=== PATIENT | male | born 1960 | race African-American/Black ===

== ENCOUNTER 2019-05-01 20:18 | Inpatient (IN) | payer OTHER ==
[2019-05-01] MEDS ORDERED: FAMOTIDINE 20 MG/50 ML IVPB 20 MG in PREMIX 50 IVPB ONE (20:37)
[2019-05-01] MEDS ORDERED: MAG HYDROX/AL HYDROX/SIMETH -MYLANTA- ORAL SUSPENSION PO ONE (20:37)
--- NOTE | 2019-05-01 20:48 | PDOC ---
History of Present Illness - General Stated Complaint: VOMITTING BLOOD Time Seen by Provider: 05/01/19 20:40 Past History - Past Medical History Allergies/Adverse Reactions: Allergies Allergy/AdvReac Type Severity Reaction Status Date / Time No Known Allergies Allergy Verified 05/01/19 20:56 Home Medications: Ambulatory Orders Atorvastatin Calcium 40 mg PO DAILY 05/02/19 Gabapentin 1 cap PO HS 05/02/19 Insulin (Novolog) [Novolog -] 05/02/19 Lisinopril 1 tab PO DAILY 05/02/19 Metoclopramide HCl [Reglan] 1 tab PO TID 05/02/19 Omeprazole 20 mg PO DAILY 05/02/19 Pantoprazole Sodium [Protonix] 40 mg PO DAILY 05/02/19 ED Treatment Course - LABORATORY CBC & Chemistry Diagram: 05/02/19 00:20 05/02/19 00:20 Medical Decision Making - Medical Decision Making 05/01/19 21:50 HPI: 58yo M hx DM, HTN, and anemia of unknown cause presents from home c/o hematemesis. 2 days ago pt had just finished eating pizza and had sudden onset periumbilical NR abdominal pain constant unknown type nothing makes better/ worse no meds tried followed immediately by dark red liquidy emesis unknown times >20 unknown amount. Hx similar sx last year admitted to [facility], unknown what was done or diagnosis. Pt states only medication is HTN medication lipisine? 5mg? but poorly compliant, did not take today. Unable to keep food or liquid down. Endorses 2 days of dark black stool, denies bright red blood or pain with defecation or hemorrhoids. Endorses chills and diaphoresis. Denies alcohol use, smoking, IVDU, illicit drugs, HIV, hepatitis, recent travel, sick contacts, recent illness, fever, fatigue, headache, dizziness, numbness/tingling , weakness, vision changes, shortness of breath, cough, chest pain, palpitations , leg swelling, diarrhea, constipation, dysuria, hematuria, urinary retention, urinary urgency, confusion. ROS: Constitutional: Positive for chills and diaphoresis. Negative for fever, fatigue. HENT: Negative for sore throat, rhinorrhea, congestion. Eyes: Negative for visual disturbance. Respiratory: Negative for shortness of breath, cough, and wheezing. Cardiovascular: Negative for chest pain, palpitations, and leg swelling. Gastrointestinal: Positive for abdominal pain, nausea, vomiting, black stool. Negative for constipation, diarrhea. Genitourinary: Negative for dysuria, flank pain, and hematuria. Musculoskeletal: Negative for myalgias, back pain, and neck pain. Skin: Negative for rash. Neurological: Negative for light-headedness, dizziness, vertigo, syncope, weakness, numbness and headaches. Psychiatric/Behavioral: Negative for behavioral problems and confusion. PE: Gen: Alert, NAD, uncomfortable-appearing, vomiting dark red/purple clear fluid with small black chunks (not coffee grounds or bright red blood) HEENT: PERRL, EOMI, MMM, NCAT. +conjunctival pallor. Sclera are non-icteric. CV: Tachycardic rate and regular rhythm. No murmurs, rubs, or gallops. PULM: No resp distress. CTAB, no wheezes, rales, or rhonchi. ABD: soft, ND, +periumbilical TTP, + rebound tenderness and guarding, no CVA tenderness. BACK: No TTP of c/t/l-spine. No step-offs or deformities. MSK: No bony deformities. 2+ pulses in all extremities. NEURO: AAOx3. PERRL. No gross CN deficits. Strength and sensation grossly intact throughout. EXTREMITIES: No cyanosis. No clubbing. No edema. No calf tenderness. PSYCH: Normal mood and thought pattern. SKIN: Warm and dry. Normal capillary refill. No rashes. No jaundice. MDM: 58yo M hx DM, HTN, and anemia of unknown cause presents from home with 2 days of constant periumbilical pain, dark black stool, and multiple episodes of emesis of purple/dark red liquid believed to be blood, similar sx last year at [facility] with unknown diagnosis. Tachycardic, hypertensive 240/140, afebrile , periumbilical TTP. Ddx: HTN urgency/emergency, UGIB (iwona lara tear, peptic ulcer, varices, gastritis, esophagitis, malignancy), pancreatitis, colitis, diverticulitis, cholelithiasis/cystitis, metabolic derangement, anemia, ACS/RI, thyroid storm, UTI, PNA, sepsis. BP equal on b/l extremities and lack of chest or back pain of low concern for dissection. Spoke with [facility]: stated pt presented with hematemesis in 03/2018. Discharge dx UGIB and BPH w/outflow obstruction. EGD showed no active bleeding, healed iwona lara tears, mild esophagitis. Cr elevated throughout stay so did cystoscopy. HTN 197/103, hydralazine given, started on norvasc. Discharged on levemir and metformin. Release of information papers signed and sent to [facility] for paperwork. -EKG -CXR -CBC,CMP,Coags,Lipase,Cardiac profile,Lact,TSH -IVF -Protonix,Mylanta,Reglan -Pending pain management, consider labetalol 10 for HTN -CT abdomen/pelvis w/o contrast -Consult GI Dr Manuel -Dispo: likely admit pending w/u EKG reviewed: sinus tachycardia, 103bpm, IRBBB, L anterior fascicualr block, QTc 466ms, no e/o acute ischemia, no priors for comparison Labs reviewed. Tachycardia and elevated WBC > sepsis set initiated -Sepsis set: rectal temp, VBG, BC x2, 2nd lact 05/01/19 22:55 -Pain and nausea improving, but BP remains elevated. Give labetalol 10mg Rectal exam performed: Brown soft stool. No darren blood, black or sticky blood, fissures, skin flaps, or hemorrhoids seen. No masses or hemorrhoids felt. No pain with digital insertion. Guiac test negative. Rectal temp: 95.9, repeat 96.1 CXR reviewed: no acute pathology, abnormal line seen of unknown cause - evaluate further with CT chest Labs reviewed. Of note, TSH 0.22, WBC 15.6, H/H 12.6/38.1, Na 146, BUN 23.2, Cr 2.0, Gluc 236, Lact 2.1, CK 1278, CKI 0.4%, CK-MB 5.7, trop 0.04 -free T3, free T4 -3hr CBC,CMP,cardiac profile to trend -CT chest CBC,CMP WBC 15.6 K/mm3 (4.0-10.0) H 05/01/19 21:10 RBC 4.20 M/mm3 (4.00-5.60) 05/01/19 21:10 Hgb 12.6 GM/dL (11.7-16.9) 05/01/19 21:10 Hct 38.1 % (35.4-49) 05/01/19 21:10 MCV 90.8 fl (80-96) 05/01/19 21:10 MCH 29.9 pg (25.7-33.7) 05/01/19 21:10 MCHC 32.9 g/dl (32.0-35.9) 05/01/19 21:10 RDW 13.9 % (11.9-15.9) 05/01/19 21:10 Plt Count 306 K/MM3 (134-434) 05/01/19 21:10 MPV 9.2 fl (7.5-11.1) 05/01/19 21:10 Absolute Neuts (auto) 13.3 K/mm3 (1.5-8.0) H 05/01/19 21:10 Neutrophils % 85.2 % (42.8-82.8) H 05/01/19 21:10 Lymphocytes % 9.9 % (8-40) 05/01/19 21:10 Monocytes % 4.7 % (3.8-10.2) 05/01/19 21:10 Eosinophils % 0.0 % (0-4.5) 05/01/19 21:10 Basophils % 0.2 % (0-2.0) 05/01/19 21:10 Nucleated RBC % 0 % (0-0) 05/01/19 21:10 Sodium 146 mmol/L (136-145) H 05/01/19 21:10 Potassium 3.7 mmol/L (3.5-5.1) 05/01/19 21:10 Chloride 110 mmol/L (98-107) H 05/01/19 21:10 Carbon Dioxide 30 mmol/L (21-32) 05/01/19 21:10 Anion Gap 7 MMOL/L (8-16) L 05/01/19 21:10 BUN 23.2 mg/dL (7-18) H 05/01/19 21:10 Creatinine 2.0 mg/dL (0.55-1.3) H 05/01/19 21:10 Est GFR (CKD-EPI)AfAm 41.99 05/01/19 21:10 Est GFR (CKD-EPI)NonAf 36.23 05/01/19 21:10 Random Glucose 236 mg/dL (74-106) H 05/01/19 21:10 Lactic Acid 2.1 mmol/L (0.4-2.0) H 05/01/19 21:10 Calcium 8.8 mg/dL (8.5-10.1) 05/01/19 21:10 Total Bilirubin 0.3 mg/dL (0.2-1) 05/01/19 21:10 AST 42 U/L (15-37) H 05/01/19 21:10 ALT 37 U/L (13-61) 05/01/19 21:10 Alkaline Phosphatase 105 U/L (45-117) 05/01/19 21:10 Creatine Kinase 1278 U/L (26-308) H 05/01/19 21:10 Creatine Kinase Index 0.4 % (0.0-5.0) 05/01/19 21:10 CK-MB (CK-2) 5.7 ng/mL (0.5-3.6) H 05/01/19 21:10 Troponin I 0.04 ng/ml (0.00-0.05) 05/01/19 21:10 Total Protein 6.3 g/dl (6.4-8.2) L 05/01/19 21:10 Albumin 2.8 g/dl (3.4-5.0) L 05/01/19 21:10 Lipase 71 U/L (73-393) L 05/01/19 21:10 TSH 0.22 uIU/ml (0.358-3.74) L 05/01/19 21:10 05/01/19 23:10 Free T4 1.13 05/02/19 01:32 CT chest/abdomen read: GB sludge vs cholelithiasis. Couple of hypoattenuating lesions in L thyroid gland measuring up to 1cm. Mild cardiomegaly with small pericardial effusion. Small sliding hiatal hernia. Enlarged prostate gland. Moderate bladder distention. There is a small to moderate sized focal and nonspecific area of subpleural reticulation at the periphery of the lower segment of right upper lobe and right middle lobe at the right minor fissure, likely reflecting the sequela of remote insults. In addition, there is minimal subsegmental atelectasis the right lower lobe. The tracheobronchial tree is grossly patent. There is no airspace consolidation, pleural effusion or pneumothorax. 2L IVF run. POCUS GB US - no e/o stones, negative mendoza's Pt vomited half hour ago, but pain improving. Will admit for intractable vomiting. 05/02/19 01:51 -L arm 222/124, R arm 217/120 -20mg IV Labetalol 05/02/19 02:23 CBC,CMP WBC 16.2 K/mm3 (4.0-10.0) H 05/02/19 00:20 RBC 3.94 M/mm3 (4.00-5.60) L 05/02/19 00:20 Hgb 11.7 GM/dL (11.7-16.9) 05/02/19 00:20 Hct 36.0 % (35.4-49) 05/02/19 00:20 MCV 91.3 fl (80-96) 05/02/19 00:20 MCH 29.8 pg (25.7-33.7) 05/02/19 00:20 MCHC 32.6 g/dl (32.0-35.9) 05/02/19 00:20 RDW 14.3 % (11.9-15.9) 05/02/19 00:20 Plt Count 274 K/MM3 (134-434) 05/02/19 00:20 MPV 9.3 fl (7.5-11.1) 05/02/19 00:20 Absolute Neuts (auto) 14.0 K/mm3 (1.5-8.0) H 05/02/19 00:20 Neutrophils % 86.4 % (42.8-82.8) H 05/02/19 00:20 Lymphocytes % 9.0 % (8-40) 05/02/19 00:20 Monocytes % 4.4 % (3.8-10.2) 05/02/19 00:20 Eosinophils % 0.0 % (0-4.5) 05/02/19 00:20 Basophils % 0.2 % (0-2.0) 05/02/19 00:20 Nucleated RBC % 0 % (0-0) 05/02/19 00:20 Sodium 148 mmol/L (136-145) H 05/02/19 00:20 Potassium 3.6 mmol/L (3.5-5.1) 05/02/19 00:20 Chloride 111 mmol/L (98-107) H 05/02/19 00:20 Carbon Dioxide 27 mmol/L (21-32) 05/02/19 00:20 Anion Gap 10 MMOL/L (8-16) 05/02/19 00:20 BUN 24.0 mg/dL (7-18) H 05/02/19 00:20 Creatinine 1.9 mg/dL (0.55-1.3) H 05/02/19 00:20 Est GFR (CKD-EPI)AfAm 44.68 05/02/19 00:20 Est GFR (CKD-EPI)NonAf 38.55 05/02/19 00:20 Random Glucose 238 mg/dL (74-106) H 05/02/19 00:20 Lactic Acid 2.1 mmol/L (0.4-2.0) H 05/01/19 21:10 Calcium 8.7 mg/dL (8.5-10.1) 05/02/19 00:20 Total Bilirubin 0.5 mg/dL (0.2-1) 05/02/19 00:20 AST 38 U/L (15-37) H 05/02/19 00:20 ALT 33 U/L (13-61) 05/02/19 00:20 Alkaline Phosphatase 99 U/L (45-117) 05/02/19 00:20 Creatine Kinase 1186 U/L (26-308) H 05/02/19 00:20 Creatine Kinase Index 0.4 % (0.0-5.0) 05/01/19 21:10 CK-MB (CK-2) 5.7 ng/mL (0.5-3.6) H 05/01/19 21:10 Troponin I 0.07 ng/ml (0.00-0.05) H 05/02/19 00:20 Total Protein 5.8 g/dl (6.4-8.2) L 05/02/19 00:20 Albumin 2.6 g/dl (3.4-5.0) L 05/02/19 00:20 Lipase 71 U/L (73-393) L 05/01/19 21:10 TSH 0.22 uIU/ml (0.358-3.74) L 05/01/19 21:10 Free T4 1.11 ng/dl (0.76-1.16) 05/02/19 00:20 2nd trop elevated 0.07. Pt signed out to admitting team. 05/02/19 04:07 Spoke with admitting team. BP remains elevated - requires drip and ICU admission. ICU called. 05/02/19 04:14 Spoke with ICU - will come see pt. ICU accepted pt. Nicardipine drip started. Discharge - Discharge Information Problems reviewed: Yes Clinical Impression/Diagnosis: Intractable vomiting, Periumbilical pain, Hypertensive emergency Condition: Stable - Admission Yes - Follow up/Referral - Patient Discharge Instructions - Post Discharge Activity
[2019-05-01] MEDS ORDERED: METOCLOPRAMIDE HCL INJECTION 10 MG/2 ML VIAL IVPUSH ONE (20:49)
[2019-05-01] MEDS ORDERED: PANTOPRAZOLE SODIUM 40 MG in SODIUM CHLORIDE 100 ML IVPB ONE (20:49)
[2019-05-01] MEDS ORDERED: SODIUM CHLORIDE 1,000 ML IV ONE (20:49)
[2019-05-01] MEDS ORDERED: MAG HYDROX/AL HYDROX/SIMETH 30 ML UNIT-DOSE CUP ONE (21:00)
[2019-05-01] MEDS ORDERED: LABETALOL HCL 5 MG/1 ML (100MG/20 ML VIAL) IVPUSH ONE (21:06)
[2019-05-01] MEDS ORDERED: METOCLOPRAMIDE HCL INJECTION 10 MG/2 ML VIAL ONE (21:28)
[2019-05-01] MEDS ORDERED: LABETALOL HCL 5 MG/1 ML (200MG/40ML VIAL) IVPB ONE (21:28)
[2019-05-01] MEDS ORDERED: PANTOPRAZOLE SODIUM 40 MG/100 ML BAG IVPB ONE (21:28)
[2019-05-01 21:38] LABS: BASO % 0.2 % (0-2.0); HEMATOCRIT 38.1 % (35.4-49); HEMOGLOBIN 12.6 GM/dL (11.7-16.9); LYMPH % 9.9 % (8-40); MCH 29.9 pg (25.7-33.7); MCHC 32.9 g/dl (32.0-35.9); MEAN CELL VOLUME 90.8 fl (80-96); MEAN PLT VOLUME 9.2 fl (7.5-11.1); MONO % 4.7 % (3.8-10.2); NEUT % 85.2 % (42.8-82.8); PLATELET COUNT 306 K/MM3 (134-434); RDW 13.9 % (11.9-15.9); WHITE BLOOD COUNT 15.6 K/mm3 (4.0-10.0)
[2019-05-01] MEDS ORDERED: SODIUM CHLORIDE 2,994 ML IV ONE (21:49)
[2019-05-01 21:55] LABS: INR 1.09 (0.83-1.09); PROTHROMBIN TIME (PATIENT) 12.9 SEC (9.7-13.0)
[2019-05-01 22:04] LABS: ALBUMIN 2.8 g/dl (3.4-5.0); BILIRUBIN,TOTAL 0.3 mg/dL (0.2-1); BLOOD UREA NITROGEN 23.2 mg/dL (7-18); CALCIUM 8.8 mg/dL (8.5-10.1); POTASSIUM 3.7 mmol/L (3.5-5.1); TOT PROT 6.3 g/dl (6.4-8.2)
--- NOTE | 2019-05-01 23:31 | PDOC ---
Documentation entered by Mora Mendieta SCRIBE, acting as scribe for Samir Vick MD. Samir Vick MD: This documentation has been prepared by the Anam rubin Nirvannie, SCRIBE, under my direction and personally reviewed by me in its entirety. I confirm that the documentation accurately reflects all work, treatment, procedures, and medical decision making performed by me. Attending Attestation - Resident Resident Name: Gayla Kee - ED Attending Attestation I have performed the following: I have examined & evaluated the patient, The case was reviewed & discussed with the resident, I agree w/resident's findings & plan, Exceptions are as noted - HPI HPI: 05/01/19 21:31 The patient is a 58 year old male, with a significant past medical history of gi bleed (03/2018, requiring carafate), dm, htn, chronic abdominal pain, ?h pylori, and anemia (unknown cause, recent colonoscopy and endoscopy scheduled for 05/07/19), who presents to the emergency department with 3 days of progressively worsening burning epigastric abdominal pain with associated hematemesis (dark, watery red) and melena. As per patient, his symptoms initially onset yesterday but, worsened yesterday with associated subjective fevers, chills, and diaphoresis. He notes his symptoms to be similar to his previous episode of a GI bleed (unknown if upper or lower). He denies any recent fevers, chills, headache or dizziness. He denies any recent chest pain or shortness of breath. He denies any recent dysuria, frequency, urgency or hematuria. Allergies: NKA GI: Dr. Mar Chatterjee - Physicial Exam PE: 05/01/19 20:40 GENERAL: The patient is awake, alert, and fully oriented, Nontoxic - in no acute distress. HEAD: Normocephalic, atraumatic. EYES: extraocular movements intact, sclera anicteric, conjunctiva clear. ENT: Normal voice, Moist mucous membranes. NECK: Normal range of motion, supple LUNGS: Breath sounds equal, clear to auscultation bilaterally. No wheezes, no rhonchi, no rales. HEART: Tachycardic, normal S1 and S2 without murmur, rub or gallop. ABDOMEN: Soft, mild epigastric tenderness, +voluntary guarding, no rebound. No CVA tenderness EXTREMITIES: Normal range of motion, no edema. NEUROLOGICAL: No facial assymetry, Normal speech, PSYCH: Normal mood, normal affect. SKIN: Warm, Dry, normal turgor, - Critical Care Time Total Critical Care Time: 45 Critical Care Statement: The care of this patient involved high complexity decision making to prevent further life threatening deterioration of the patient 's condition and/or to evaluate & treat vital organ system(s) failure or risk of failure. - Medical Decision Making 05/01/19 20:41 58-year-old gentleman history of diabetes, HTN, presenting with a complaint of persistent nausea and vomiting and epigastric pain. Patient endorses 2-day history of nonradiating, burning epigastric pain associated with multiple episodes of vomiting that appears, dark watery reddish in color, dark stool. denies associated cp, f/c, back pain, focal numbness/tingling/weakness, headache , vision changes, We will obtain blood work, will treat with Protonix, Maalox, Zofran Differential for the patient's symptoms includes possible pancreatitis, gastritis, gastric ulcer. The patient was notably tachycardic and hypertensive upon arrival, patient states his BP is normally pretty well controlled. Due to his hypertension consider possible dissection, ICH/hypertensive emergency 05/01/19 22:26 The patient's blood work is reviewed, creatinine is elevated 2.0 with slightly elevated BUN The patient also noted for leukocytosis does not have any signs of anemia at this time. The patient's stool guaiac and lipase are also negative. Will obtain a CT of the abdomen to evaluate his abdominal pain 05/02/19 01:[address] ches noted for smal/moderate koki of nonspecific subpleural reticulation at periphery of lowe segmen of right upper lobe and riht middle lobe, likely reflecting remote insults, no airspace dz, and significant findings on abd. no sign of tones/cbd diltation on US pt still vomiing here. will give zofran will admit for furhter mnagement of dehydration an dintractible vomiting and hypertension 05/02/19 01:52 Patient's blood pressure still elevated here will give another dose of labetalol Heart Score/ECG Review - ECG Impressions Comment:: 05/02/19 01:26 Twelve-lead EKG was performed and reviewed by me. There is normal sinus rhythm with a rate of 103 Incomplete right bundle branch block Left anterior fascicular block
[2019-05-02 00:46] LABS: BASO % 0.2 % (0-2.0); HEMOGLOBIN 11.7 GM/dL (11.7-16.9); MCH 29.8 pg (25.7-33.7); MCHC 32.6 g/dl (32.0-35.9); MEAN CELL VOLUME 91.3 fl (80-96); MEAN PLT VOLUME 9.3 fl (7.5-11.1); MONO % 4.4 % (3.8-10.2); NEUT % 86.4 % (42.8-82.8); PLATELET COUNT 274 K/MM3 (134-434); RBC 3.94 M/mm3 (4.00-5.60); RDW 14.3 % (11.9-15.9); WHITE BLOOD COUNT 16.2 K/mm3 (4.0-10.0)
[2019-05-02] MEDS ORDERED: SODIUM CHLORIDE 1,000 ML IV STA (00:49)
[2019-05-02] MEDS ORDERED: ONDANSETRON 4 MG/2 ML VIAL IVPB ONE (01:32)
[2019-05-02 01:37] LABS: ALBUMIN 2.6 g/dl (3.4-5.0); BILIRUBIN,TOTAL 0.5 mg/dL (0.2-1); CALCIUM 8.7 mg/dL (8.5-10.1); CREATININE 1.9 mg/dL (0.55-1.3); POTASSIUM 3.6 mmol/L (3.5-5.1); TOT PROT 5.8 g/dl (6.4-8.2)
[2019-05-02] MEDS ORDERED: LABETALOL HCL 5 MG/1 ML (100MG/20 ML VIAL) IVPUSH ONE ×2 (01:50→05:00)
--- NOTE | 2019-05-02 02:11 | HP ---
CHIEF COMPLAINT:intractable nausea and vomiting PCP: unknown HISTORY OF PRESENT ILLNESS: 58 yo M PMH DM, HTN, anemia, BPH ( s/p prostate procedure) presents to ED with nausea, vomiting and lower abdominal pain. pt states that this all began yesterday evening. pt states that he has been vomiting continuously, he describes the vomit as having " red chunks of phlegm" . pt states that this has happened once in the past last year at [facility]. (- on communication with [facility] he has had EGD revealing iwona lara and esophagitis) . pt also endorses dysuria x 1 month and blood in his urine for 2 days. pt states he hasnt had these symptoms since his prostate surgery 1 year ago. pt states he is not compliant with his BP medications and when he checks sugar at home its around 170s. ER course was notable for: (1)Labetalol 10 mg, followed by 2nd dose labetalol 20 mg (2)CT chest, abdomen pelvis w/o contrast (3)lactate 2.1 , trop 0.04-->0.07 Recent Travel: denies PAST MEDICAL HISTORY: DM, HTN, anemia, BPH ( s/p prostate procedure) PAST SURGICAL HISTORY: L toe amputation. prostate surgery Social History: Smoking:denies Alcohol:denies Drugs: denies Allergies No Known Allergies Allergy (Verified 05/01/19 20:56) HOME MEDICATIONS: Home Medications Medication Instructions Recorded Atorvastatin Calcium 40 mg PO DAILY 05/02/19 Gabapentin 1 cap PO HS 05/02/19 Insulin (Novolog) [Novolog -] 05/02/19 Lisinopril 1 tab PO DAILY 05/02/19 Metoclopramide HCl [Reglan] 1 tab PO TID 05/02/19 Omeprazole 20 mg PO DAILY 05/02/19 Pantoprazole Sodium [Protonix] 40 mg PO DAILY 05/02/19 REVIEW OF SYSTEMS CONSTITUTIONAL: Absent: fever, chills, diaphoresis, generalized weakness, malaise, loss of appetite, weight change HEENT: Absent: rhinorrhea, nasal congestion, throat pain, throat swelling, difficulty swallowing, mouth swelling, ear pain, eye pain, visual changes CARDIOVASCULAR: Absent: chest pain, syncope, palpitations, irregular heart rate, lightheadedness , peripheral edema RESPIRATORY: Absent: cough, shortness of breath, dyspnea with exertion, orthopnea, wheezing, stridor, hemoptysis GASTROINTESTINAL: Present: abdominal pain, nausea, vomiting, hematochezia Absent:abdominal distension, diarrhea, constipation, melena GENITOURINARY: Present: dysuria, bloody urine Absent: frequency, urgency, hesitancy, flank pain, genital pain MUSCULOSKELETAL: Absent: myalgia, arthralgia, joint swelling, back pain, neck pain SKIN: Absent: rash, itching, pallor HEMATOLOGIC/IMMUNOLOGIC: Absent: easy bleeding, easy bruising, lymphadenopathy, frequent infections NEUROLOGIC: Absent: headache, focal weakness or paresthesias, dizziness, unsteady gait, seizure, mental status changes, bladder or bowel incontinence PHYSICAL EXAMINATION Vital Signs - 24 hr 05/01/19 05/01/19 20:52 22:35 Temperature 98.4 F 96.1 F L Pulse Rate 110 H Pulse Rate [ 108 H Left Radial] Respiratory 20 18 Rate Blood Pressure 240/143 H Blood Pressure 197/104 H [Left Arm] O2 Sat by Pulse 98 98 Oximetry (%) GENERAL: Awake, alert, and fully oriented HEAD: Normal with no signs of trauma. EYES: Pupils equal, round and reactive to light, extraocular movements intact, sclera anicteric, conjunctiva clear. EARS, NOSE, THROAT: nares patent, oropharynx clear without exudates. Moist mucous membranes. NECK: Normal range of motion, supple without lymphadenopathy, JVD, or masses. LUNGS: Breath sounds equal, clear to auscultation bilaterally. No wheezes, and no crackles. No accessory muscle use. HEART: tachycardic and regular rhythm, normal S1 and S2 without murmur, rub or gallop. ABDOMEN: Soft, tender to palpation of LLQ and RLQ, not distended, normoactive bowel sounds, no guarding, no rebound, no masses. MUSCULOSKELETAL: Normal range of motion at all joints. No bony deformities or tenderness. No CVA tenderness. UPPER EXTREMITIES: 2+ pulses, warm, well-perfused. No cyanosis. No clubbing. No peripheral edema. LOWER EXTREMITIES: 2+ pulses, warm, well-perfused. No calf tenderness. No peripheral edema. NEUROLOGICAL: Cranial nerves II-XII intact. Normal speech. Normal gait. SKIN: Warm, dry, normal turgor, no rashes or lesions noted, normal capillary refill. Laboratory Last Values WBC 16.2 K/mm3 (4.0-10.0) H 05/02/19 00:20 RBC 3.94 M/mm3 (4.00-5.60) L 05/02/19 00:20 Hgb 11.7 GM/dL (11.7-16.9) 05/02/19 00:20 Hct 36.0 % (35.4-49) 05/02/19 00:20 MCV 91.3 fl (80-96) 05/02/19 00:20 MCH 29.8 pg (25.7-33.7) 05/02/19 00:20 MCHC 32.6 g/dl (32.0-35.9) 05/02/19 00:20 RDW 14.3 % (11.9-15.9) 05/02/19 00:20 Plt Count 274 K/MM3 (134-434) 05/02/19 00:20 MPV 9.3 fl (7.5-11.1) 05/02/19 00:20 Absolute Neuts (auto) 14.0 K/mm3 (1.5-8.0) H 05/02/19 00:20 Neutrophils % 86.4 % (42.8-82.8) H 05/02/19 00:20 Lymphocytes % 9.0 % (8-40) 05/02/19 00:20 Monocytes % 4.4 % (3.8-10.2) 05/02/19 00:20 Eosinophils % 0.0 % (0-4.5) 05/02/19 00:20 Basophils % 0.2 % (0-2.0) 05/02/19 00:20 Nucleated RBC % 0 % (0-0) 05/02/19 00:20 PT with INR 12.90 SEC (9.7-13.0) 05/01/19 21:10 INR 1.09 (0.83-1.09) 05/01/19 21:10 Sodium 148 mmol/L (136-145) H 05/02/19 00:20 Potassium 3.6 mmol/L (3.5-5.1) 05/02/19 00:20 Chloride 111 mmol/L (98-107) H 05/02/19 00:20 Carbon Dioxide 27 mmol/L (21-32) 05/02/19 00:20 Anion Gap 10 MMOL/L (8-16) 05/02/19 00:20 BUN 24.0 mg/dL (7-18) H 05/02/19 00:20 Creatinine 1.9 mg/dL (0.55-1.3) H 05/02/19 00:20 Est GFR (CKD-EPI)AfAm 44.68 05/02/19 00:20 Est GFR (CKD-EPI)NonAf 38.55 05/02/19 00:20 Random Glucose 238 mg/dL (74-106) H 05/02/19 00:20 Lactic Acid 2.1 mmol/L (0.4-2.0) H 05/01/19 21:10 Calcium 8.7 mg/dL (8.5-10.1) 05/02/19 00:20 Total Bilirubin 0.5 mg/dL (0.2-1) 05/02/19 00:20 AST 38 U/L (15-37) H 05/02/19 00:20 ALT 33 U/L (13-61) 05/02/19 00:20 Alkaline Phosphatase 99 U/L (45-117) 05/02/19 00:20 Creatine Kinase 1186 U/L (26-308) H 05/02/19 00:20 Creatine Kinase Index 0.4 % (0.0-5.0) 05/02/19 00:20 CK-MB (CK-2) 5.2 ng/mL (0.5-3.6) H 05/02/19 00:20 Troponin I 0.07 ng/ml (0.00-0.05) H 05/02/19 00:20 Total Protein 5.8 g/dl (6.4-8.2) L 05/02/19 00:20 Albumin 2.6 g/dl (3.4-5.0) L 05/02/19 00:20 Lipase 71 U/L (73-393) L 05/01/19 21:10 TSH 0.22 uIU/ml (0.358-3.74) L 05/01/19 21:10 Free T4 1.11 ng/dl (0.76-1.16) 05/02/19 00:20 Stool Occult Blood Negative (NEGATIVE) 05/01/19 22:02 Blood Type O POSITIVE 05/01/19 21:10 Antibody Screen Negative 05/01/19 21:10 CT chest / abdomen/ pelvis FINDINGS: Chest: LUNGS: There is a small to moderate sized focal and nonspecific area of subpleural reticulation at the periphery of the lower segment of right upper lobe and right middle lobe at the right minor fissure, likely reflecting the sequela of remote insults. In addition, there is minimal subsegmental atelectasis the right lower lobe. The tracheobronchial tree is grossly patent. There is no airspace consolidation, pleural effusion or pneumothorax. CARDIOVASCULAR: Mild cardiomegaly. There is small pericardial effusion. The thoracic aorta and arch vessels are normal in caliber.. Mediastinum and Ct: There is no clinically significant axillary, mediastinal or hilar lymphadenopathy. Chest Wall and Lower Neck: Incidental note is made of a couple of hypoattenuating lesions in the left thyroid gland measuring up to 1.0 cm. Abdomen: Liver:: Within normal limits. Bile Ducts: Within normal limits. Gallbladder:: Gallbladder sludge versus cholelithiasis. Pancreas:: Within normal limits. Spleen:: Within normal limits. Adrenals: Within normal limits. Kidneys: No evidence of hydronephrosis or nephrolithiasis. Stomach:: Small sliding hiatal hernia. Bowel:: No evidence of small bowel obstruction or mass. Normal appendix is identified. Pelvis: Reproductive Organs: Enlarged prostate gland. Bladder: Moderate distention of the bladder.Vessels: Aorta: Atherosclerotic calcification of the aorta without aneurysm or dissection. Retroperitoneum: Within normal limits. Bones: : No suspicious osseous lesions. ASSESSMENT/PLAN: 58 yo M PMH DM, HTN, anemia, BPH ( s/p prostate procedure) presents to ED with nausea, vomiting and lower abdominal pain.pt is admitted to ICU for Hypertensive emergency and intractable nausea and vomiting Intractable nausea/ vomiting r/o colitis - CT abdomen/ pelvis done without contrast -flagyl, rocephin - pending UA - pending UCx , BCx Hypertensive emergency - ICU consult appreciated - BP not responding to labetalol push - nicardipine drip -continuen tele monitoring - pending Utox Tropinemia -likely 2/2 to hypertensive emergency - r/o acs; trend trops to peak, EKGs q 4-6 DM - BGM -ISS - A1C VAISHNAVI vs CKD -pending UA - avoid nephrotoxic agents -continue to trend F/E/N -monitor lytes - NPO Dispo: ICU monitoring Visit type - Emergency Visit Emergency Visit: Yes ED Registration Date: 05/02/19 Care time: The patient presented to the Emergency Department on the above date and was hospitalized for further evaluation of their emergent condition. - New Patient This patient is new to me today: Yes Date on this admission: 05/02/19 - Critical Care Critical Care patient: No ATTENDING PHYSICIAN STATEMENT I saw and evaluated the patient. I reviewed the resident's note and discussed the case with the resident. I agree with the resident's findings and plan as documented. SUBJECTIVE: OBJECTIVE: ASSESSMENT AND PLAN:
--- NOTE | 2019-05-02 02:11 | PN ---
Teaching Attending Note Name of Resident: Margy Magaña ATTENDING PHYSICIAN STATEMENT I saw and evaluated the patient. I reviewed the resident's note and discussed the case with the resident. I agree with the resident's findings and plan as documented. SUBJECTIVE: Patient is a 58 year old man with a PMH of GI bleeding (03/2018, requiring carafate), NIDDM, HTN, Chronic abdominal pain (H pylori infection), and Anemia ( unknown cause, recent colonoscopy and endoscopy scheduled for 05/07/19), who presents to the ER with 3 days of progressively worsening burning epigastric abdominal pain with associated hematemesis (dark, watery red) and melena. Patient says his symptoms initially started yesterday, but worsened with associated subjective fevers, chills, and diaphoresis. He notes his symptoms to be similar to his previous episode of a GI bleed (unknown if upper or lower). He denies headache, dizziness, chest pain, shortness of breath, dysuria, frequency, urgency or hematuria. Denies alcohol, tobacco or illicit drug use. No sick contacts or recent travel. OBJECTIVE: Alert Vital Signs Period Temp Pulse Resp BP Sys/Aceves Pulse Ox Last 24 Hr 96.1 F-98.4 F 108-110 18-20 197-240/104-143 98-98 HEENT: No Jaundice, eye redness or discharge, PERRLA, EOMI. Normocephalic, atraumatic. External ears are normal and hearing is grossly intact. No nasal discharge. Neck: Supple, nontender. No palpable adenopathy or thyromegaly. No JVD Chest: Good effort. Clear to auscultation and percussion. Heart: Regular. No S3, rub or murmur Abdomen: Not distended, soft, epigastric tenderness and no HSM. No rebound or guarding. Normal bowel sounds. Ext: Peripheral pulses intact. No leg edema. Skin: Warm and dry. No petechiae, rash or ecchymosis. Neuro: Alert. Oriented x3. CN 2-12 grossly intact. Sensation grossly intact in all four extremities and DTR are symmetric. Psych: Appropriate mood and affect. Good insight. Abnormal Lab Results 05/01/19 05/01/19 05/01/19 21:10 21:10 21:10 WBC 15.6 H RBC Absolute Neuts (auto) 13.3 H Neutrophils % 85.2 H Sodium 146 H Chloride 110 H Anion Gap 7 L BUN 23.2 H Creatinine 2.0 H Random Glucose 236 H Lactic Acid AST 42 H Creatine Kinase 1278 H CK-MB (CK-2) 5.7 H Troponin I Total Protein 6.3 L Albumin 2.8 L Lipase 71 L TSH 0.22 L 05/01/19 05/02/19 05/02/19 21:10 00:20 00:20 WBC 16.2 H RBC 3.94 L Absolute Neuts (auto) 14.0 H Neutrophils % 86.4 H Sodium Chloride Anion Gap BUN Creatinine Random Glucose Lactic Acid 2.1 H AST Creatine Kinase 1186 H CK-MB (CK-2) Troponin I 0.07 H Total Protein Albumin Lipase TSH 05/02/19 00:20 WBC RBC Absolute Neuts (auto) Neutrophils % Sodium 148 H Chloride 111 H Anion Gap BUN 24.0 H Creatinine 1.9 H Random Glucose 238 H Lactic Acid AST 38 H Creatine Kinase CK-MB (CK-2) Troponin I Total Protein 5.8 L Albumin 2.6 L Lipase TSH ASSESSMENT AND PLAN: 1. Intractable vomiting - Etiology unclear. Urine toxicology and urinalysis pending. CT scan of abdomen/pelvis/chest was done without contrast and preliminary reading is as follows = "GB sludge vs cholelithiasis. Couple of hypoattenuating lesions in L thyroid gland measuring up to 1cm. Mild cardiomegaly with small pericardial effusion. Small sliding hiatal hernia. Enlarged prostate gland. Moderate bladder distention. There is a small to moderate sized focal and nonspecific area of subpleural reticulation at the periphery of the lower segment of right upper lobe and right middle lobe at the right minor fissure, likely reflecting the sequela of remote insults. In addition, there is minimal subsegmental atelectasis the right lower lobe. The tracheobronchial tree is grossly patent. There is no airspace consolidation, pleural effusion or pneumothorax." No obvious explanation for vomiting on CT report, but leukocytosis is concerning. Will treat empirically with IV Rocephin and Flagyl for enteritis/ colitis and consult GI. EKG shows sinus tachycardia, IRBBB, LAFB and septal infarct of undetermined age - no old EKG available for comparison. Initial troponin is elevated - will rule out ACS and get ECHO, especially in view of persistent severe hypertension. Will get LDH and trend lactic acid level - there is a concern for mesenteric ischemia. No acute abnormality on CXR. Will continue comprehensive care for all of patients comorbid conditions. Will strive to get his medical records from his PCP. 2. Hypoalbuminemia - Possibly due to combined effects of malnutrition and inflammation associated with comorbid chronic conditions. Will ensure adequate dietary protein intake and also consult physical therapy resident. Urinalysis pending. 3. Uncontrolled DM For now, we will hold the home diabetes drugs and implement sliding scale insulin regimen. Provide comprehensive diabetes care with patient teaching and counseling about the importance of adherence to prescribed diabetes regimen, euglycemia, eye care and foot care. 4. VAISHNAVI - Likely due to dehydration. Will hydrate and monitor urine output. Consult nephrology and avoid nephrotoxic agents such as NSAIDS, aminoglycosides , contrast dyes and certain Alternative medicine products. 5. Hypertensive urgency - Got a total of 40 mg IV labetalol as well as over 2 liters of IV NS in the ER and systolic BP is still >190 mmHg. Will start IV Nicardipine drip and manage patient in the ICU. Restart suitable outpatient antihypertensive drugs when clinically appropriate. 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 Nonpharmacologic measures to control hypertension like weight loss, salt restriction and exercise discussed. Importance of adherence to treatment regimen and attainment of normotension emphasized. Consult nephrology. Needs outpatient workup for secondary hypertension. 6. DVT prophylaxis - Heparin 5000u sq tid. 7. Advance directives - Full code
[2019-05-02] MEDS ORDERED: ONDANSETRON 4 MG/2 ML VIAL ONE ×2 (02:32→08:47)
[2019-05-02] MEDS ORDERED: ONDANSETRON 4 MG/2 ML VIAL IVPUSH ONE ×2 (02:46→08:46)
[2019-05-02] MEDS ORDERED: TRIMETHOBENZAMIDE HCL 200MG/2ML INJ IM ONE (02:49)
[2019-05-02 04:28] LABS: VENOUS PC02 51.5 mmHg (38-52); VENOUS PH 7.34 (7.31-7.41)
[2019-05-02 04:30] LABS: VENOUS PO2 < 49 mmHg (28-48)
[2019-05-02] MEDS ORDERED: ACETAMINOPHEN INJECTION 100 ML IVPB ONE (04:51)
[2019-05-02] MEDS ORDERED: ACETAMINOPHEN 1000 MG/100 ML VIAL (NON FORMULARY) IVPB ONE ×2 (05:00→13:29)
[2019-05-02] MEDS ORDERED: NICARDIPINE 25 MG in DEXTROSE 5%-WATER - 240 ML IVPB SCH (05:15)
--- NOTE | 2019-05-02 06:15 | CONSULT ---
Consultation: REQUESTING PROVIDER: Dr. Smith CONSULT REQUEST: We have been asked to medically evaluate this patient for hypertensive emergency. HISTORY OF PRESENT ILLNESS: 58M PMH DM, HT, anemia, BPH who presents to the ED with nausea, vomiting, and lower abdominal pain. Patient began having pain yesterday and reports having multiple episodes of hematemesis. He reported that these symptoms occurred last year as well at [facility]. While in the ED patient was noted to have 7 episodes of bilious emesis, without any hematemesis. ED resident, Dr. Kee was able to get verbal communication with [facility] in regards to patient's prior admission there. Verbal report indicated that patient had EGD revealing iwona lara tears and esophagitis. Patient currently endorses significant abdominal pain and nausea. Had one episode of bilious emesis during exam. Patient endorsed not being compliant with home antihypertensive medication - Lisinopril 5 mg PO Daily. In the ED patient was found to have blood pressure of 240/143 and given Labetolol 20 and 10 mg with improvement. Patient had initial lactate of 2.1 and mildly elevated troponin of 0.04 and 0.07. REVIEW OF SYSTEMS: CONSTITUTIONAL: Present: loss of appetite Absent: fever, chills, diaphoresis, generalized weakness, malaise, weight change HEENT: Absent: rhinorrhea, nasal congestion, throat pain, throat swelling, difficulty swallowing, mouth swelling, ear pain, eye pain, visual changes CARDIOVASCULAR: Absent: chest pain, syncope, palpitations, irregular heart rate, lightheadedness , peripheral edema RESPIRATORY: Absent: cough, shortness of breath, dyspnea with exertion, orthopnea, wheezing, stridor, hemoptysis GASTROINTESTINAL: Present: Abdominal pain, nausea, vomiting, Absent: abdominal distension, diarrhea, constipation, melena, hematochezia GENITOURINARY: Present: dysuria, hematuria Absent: frequency, urgency, hesitancy, flank pain, genital pain MUSCULOSKELETAL: Absent: myalgia, arthralgia, joint swelling, back pain, neck pain SKIN: Absent: rash, itching, pallor HEMATOLOGIC/IMMUNOLOGIC: Absent: easy bleeding, easy bruising, lymphadenopathy, frequent infections ENDOCRINE: Absent: unexplained weight gain, unexplained weight loss, heat intolerance, cold intolerance NEUROLOGIC: Absent: headache, focal weakness or paresthesias, dizziness, unsteady gait, seizure, mental status changes, bladder or bowel incontinence PSYCHIATRIC: Absent: anxiety, depression, suicidal or homicidal ideation, hallucinations. PHYSICAL EXAMINATION Vital Signs - 24 hr 05/01/19 05/01/19 05/02/19 20:52 22:35 02:30 Temperature 98.4 F 96.1 F L Pulse Rate 110 H Pulse Rate [ 108 H 108 H Left Radial] Respiratory 20 18 20 Rate Blood Pressure 240/143 H Blood Pressure 197/104 H 195/101 H [Left Arm] O2 Sat by Pulse 98 98 98 Oximetry (%) GENERAL: Awake, alert, and fully oriented, in no acute distress. HEAD: Normal with no signs of trauma. EYES: Pupils equal, round and reactive to light, extraocular movements intact, sclera anicteric, conjunctiva clear. No lid lag. NECK: Normal range of motion, supple without lymphadenopathy, JVD, or masses. LUNGS: Breath sounds equal, clear to auscultation bilaterally. No wheezes, and no crackles. No accessory muscle use. HEART: Tachycardia with normal S1 and S2 without murmur, rub or gallop. ABDOMEN: Soft, diffusely tender to palpation. No rebound, no masses. No distension. . MUSCULOSKELETAL: Normal range of motion at all joints. No bony deformities or tenderness. No CVA tenderness. UPPER EXTREMITIES: 2+ pulses, warm, well-perfused. No cyanosis. No clubbing. Cap refill <2 seconds. No peripheral edema. LOWER EXTREMITIES: 2+ pulses, warm, well-perfused. No calf tenderness. No peripheral edema. NEUROLOGICAL: Cranial nerves II-XII intact. Normal speech. Normal gait. PSYCHIATRIC: Cooperative. Good eye contact. Appropriate mood and affect. Laboratory Results - last 24 hr 05/01/19 05/01/19 05/01/19 21:10 21:10 21:10 WBC 15.6 H RBC 4.20 Hgb 12.6 Hct 38.1 MCV 90.8 MCH 29.9 MCHC 32.9 RDW 13.9 Plt Count 306 MPV 9.2 Absolute Neuts (auto) 13.3 H Neutrophils % 85.2 H Lymphocytes % 9.9 Monocytes % 4.7 Eosinophils % 0.0 Basophils % 0.2 Nucleated RBC % 0 PT with INR INR VBG pH POC VBG pCO2 POC VBG pO2 VBG HCO3 VBG O2 Sat (Aldo) VBG Base Excess Sodium 146 H Potassium 3.7 Chloride 110 H Carbon Dioxide 30 Anion Gap 7 L BUN 23.2 H Creatinine 2.0 H Est GFR (CKD-EPI)AfAm 41.99 Est GFR (CKD-EPI)NonAf 36.23 Random Glucose 236 H Lactic Acid Calcium 8.8 Total Bilirubin 0.3 AST 42 H ALT 37 Alkaline Phosphatase 105 Creatine Kinase 1278 H Creatine Kinase Index 0.4 CK-MB (CK-2) 5.7 H Troponin I 0.04 Total Protein 6.3 L Albumin 2.8 L Lipase 71 L TSH 0.22 L Free T4 1.13 Stool Occult Blood Blood Type Antibody Screen 05/01/19 05/01/19 05/01/19 21:10 21:10 21:10 WBC RBC Hgb Hct MCV MCH MCHC RDW Plt Count MPV Absolute Neuts (auto) Neutrophils % Lymphocytes % Monocytes % Eosinophils % Basophils % Nucleated RBC % PT with INR 12.90 INR 1.09 VBG pH POC VBG pCO2 POC VBG pO2 VBG HCO3 VBG O2 Sat (Aldo) VBG Base Excess Sodium Potassium Chloride Carbon Dioxide Anion Gap BUN Creatinine Est GFR (CKD-EPI)AfAm Est GFR (CKD-EPI)NonAf Random Glucose Lactic Acid 2.1 H Calcium Total Bilirubin AST ALT Alkaline Phosphatase Creatine Kinase Creatine Kinase Index CK-MB (CK-2) Troponin I Total Protein Albumin Lipase TSH Free T4 Stool Occult Blood Blood Type O POSITIVE Antibody Screen Negative 05/01/19 05/02/19 05/02/19 22:02 00:20 00:20 WBC RBC Hgb Hct MCV MCH MCHC RDW Plt Count MPV Absolute Neuts (auto) Neutrophils % Lymphocytes % Monocytes % Eosinophils % Basophils % Nucleated RBC % PT with INR INR VBG pH POC VBG pCO2 POC VBG pO2 VBG HCO3 VBG O2 Sat (Aldo) VBG Base Excess Sodium Potassium Chloride Carbon Dioxide Anion Gap BUN Creatinine Est GFR (CKD-EPI)AfAm Est GFR (CKD-EPI)NonAf Random Glucose Lactic Acid Calcium Total Bilirubin AST ALT Alkaline Phosphatase Creatine Kinase 1186 H Creatine Kinase Index 0.4 CK-MB (CK-2) 5.2 H Troponin I 0.07 H Total Protein Albumin Lipase TSH Free T4 1.11 Stool Occult Blood Negative Blood Type Antibody Screen 05/02/19 05/02/19 05/02/19 00:20 00:20 03:20 WBC 16.2 H RBC 3.94 L Hgb 11.7 Hct 36.0 MCV 91.3 MCH 29.8 MCHC 32.6 RDW 14.3 Plt Count 274 MPV 9.3 Absolute Neuts (auto) 14.0 H Neutrophils % 86.4 H Lymphocytes % 9.0 Monocytes % 4.4 Eosinophils % 0.0 Basophils % 0.2 Nucleated RBC % 0 PT with INR INR VBG pH 7.34 POC VBG pCO2 51.5 POC VBG pO2 < 49 H VBG HCO3 26.9 VBG O2 Sat (Aldo) 58.7 L VBG Base Excess 1.0 Sodium 148 H Potassium 3.6 Chloride 111 H Carbon Dioxide 27 Anion Gap 10 BUN 24.0 H Creatinine 1.9 H Est GFR (CKD-EPI)AfAm 44.68 Est GFR (CKD-EPI)NonAf 38.55 Random Glucose 238 H Lactic Acid Calcium 8.7 Total Bilirubin 0.5 AST 38 H ALT 33 Alkaline Phosphatase 99 Creatine Kinase Creatine Kinase Index CK-MB (CK-2) Troponin I Total Protein 5.8 L Albumin 2.6 L Lipase TSH Free T4 Stool Occult Blood Blood Type Antibody Screen 05/02/19 03:20 WBC RBC Hgb Hct MCV MCH MCHC RDW Plt Count MPV Absolute Neuts (auto) Neutrophils % Lymphocytes % Monocytes % Eosinophils % Basophils % Nucleated RBC % PT with INR INR VBG pH POC VBG pCO2 POC VBG pO2 VBG HCO3 VBG O2 Sat (Aldo) VBG Base Excess Sodium Potassium Chloride Carbon Dioxide Anion Gap BUN Creatinine Est GFR (CKD-EPI)AfAm Est GFR (CKD-EPI)NonAf Random Glucose Lactic Acid 3.2 H* Calcium Total Bilirubin AST ALT Alkaline Phosphatase Creatine Kinase Creatine Kinase Index CK-MB (CK-2) Troponin I Total Protein Albumin Lipase TSH Free T4 Stool Occult Blood Blood Type Antibody Screen Active Medications Generic Name Dose Route Start Last Admin Trade Name Freq PRN Reason Stop Dose Admin Chlorhexidine Gluconate 1 applic 05/02/19 22:00 Hibiclens For Decolonization - TP HS PAVEL Heparin Sodium (Porcine) 5,000 unit 05/02/19 06:00 Heparin - SQ TID PAVEL Nicardipine HCl 25 mg/ 250 mls @ 25 mls/hr 05/02/19 05:15 Dextrose IVPB TITR PAVEL Protocol 2.5 MG/HR Ceftriaxone Sodium 1 gm/ 50 mls @ 100 mls/hr 05/02/19 10:00 Dextrose IVPB DAILY PAVEL Metronidazole 500 mg in 100 mls @ 100 mls/hr 05/02/19 10:00 Flagyl 500mg Premixed Ivpb - IVPB Q8H-IV PAVEL Mupirocin 1 applic 05/02/19 10:00 Bactroban Ointment (For Decolonization) - NS 05/07/19 09:59 BID PAVEL Pantoprazole Sodium 40 mg 05/02/19 10:00 Protonix Iv IVPUSH BID PAVEL ASSESSMENT/PLAN: 58M PMH DM, HTN, Anemia, BPH (s/p prostate procedure) who presents with nausea, vomiting, and lower abdominal pain. Patient was found to have hypertensive emergency. Patient will be admitted to ICU for close monitoring. Neuro: Head CT negative to for acute pathology as per night read. F/U official read. Stable and continue to monitor Gabapentin 300 HS CV -Initial BP was 240/143 -labetolol 20 and 10 given once in the ED within minimal improvement, -no prior EKG to compare to -Echo -trend trops -repeat CK -Nicardipine gtt started -Lisinopril 5, Atorvastatin 40 -EKG shows sinus tachy, QTC of 466, incomplete RBB, left anterior fasicular block Pulm: -Chest CT shows :There is a small to moderate sized focal and nonspecific area of subpleural reticulation at the periphery of the lower segment of right upper lobe and right middle lobe at the right minor fissure, likely reflecting the sequela of remote insults. In addition, there is minimal subsegmenta atelectasis the right lower lobe. The tracheobronchial tree is grossly patent. There is no airspace consolidation, pleural effusion or pneumothorax. -On RA satting 100% -Stable GI -Abdominal pain -billiary sludge vs cholelithiasis -GI consulted -EGD done 1 year ago -Protonix 40 IV -NPO -Questionable colitis, starting Ceftriaxone and flagyl -Abdominal u/s ordered -Episode of hematemsis with FOBT negaive. 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 -TSH low, Free T4 normal. -Refer to endocrinology as outpatient for further workup of thyroid findings ID -Possible biliary source -Will given empiric coverage with Ceftriaxone and flagyl -Lactate 2.1 to 3.2 -Leukocytosis with left shift -Urine culture pending F: No Standing fluids E: Monitor CMP N: NPO DVT: Heparin 5000 unit SQ TID GI: Protonix 40 mg IV N Dispo: We will continue to follow the patient. Thank you for this consultative opportunity. Visit type - Emergency Visit Emergency Visit: Yes ED Registration Date: 05/02/19 Care time: The patient presented to the Emergency Department on the above date and was hospitalized for further evaluation of their emergent condition. - New Patient This patient is new to me today: Yes Date on this admission: 05/02/19 - Critical Care Critical Care patient: Yes Total Critical Care Time (in minutes): 45 Critical Care Statement: The care of this patient involved high complexity decision making to prevent further life threatening deterioration of the patient 's condition and/or to evaluate & treat vital organ system(s) failure or risk of failure. ATTENDING PHYSICIAN STATEMENT I saw and evaluated the patient. I reviewed the resident's note and discussed the case with the resident. I agree with the resident's findings and plan as documented. SUBJECTIVE: OBJECTIVE: ASSESSMENT AND PLAN:
[2019-05-02] MEDS ORDERED: HEPARIN NA (PORCINE) 5,000 UNITS/ML 1ML VIAL ONE (07:00)
[2019-05-02] MEDS: HEPARIN NA (PORCINE) 5,000 UNITS/ML 1ML VIAL SQ SCH ×2 (07:06→20:30)
[2019-05-02 08:43] LABS: BASO % 0.1 % (0-2.0); HEMATOCRIT 35.4 % (35.4-49); HEMOGLOBIN 11.3 GM/dL (11.7-16.9); LYMPH % 8.1 % (8-40); MCH 29.1 pg (25.7-33.7); MEAN PLT VOLUME 9.2 fl (7.5-11.1); MONO % 5.1 % (3.8-10.2); NEUT % 86.7 % (42.8-82.8); PLATELET COUNT 281 K/MM3 (134-434); RBC 3.89 M/mm3 (4.00-5.60); RDW 14.2 % (11.9-15.9); WHITE BLOOD COUNT 16.4 K/mm3 (4.0-10.0)
[2019-05-02 09:07] LABS: INR 1.11 (0.83-1.09); PROTHROMBIN TIME (PATIENT) 13.1 SEC (9.7-13.0)
[2019-05-02 09:11] LABS: ALBUMIN 2.5 g/dl (3.4-5.0); BILIRUBIN,TOTAL 0.3 mg/dL (0.2-1); CALCIUM 8.1 mg/dL (8.5-10.1); MAGNESIUM 1.9 mg/dL (1.8-2.4); PHOSPHOROUS 3.6 mg/dL (2.5-4.9); POTASSIUM 3.8 mmol/L (3.5-5.1); TOT PROT 5.7 g/dl (6.4-8.2)
[2019-05-02] MEDS ORDERED: DEXTROSE 5%-WATER - 50 ML IVPB ONE (09:58)
[2019-05-02] MEDS ORDERED: cefTRIAXone SODIUM 1 GM VIAL ONE (09:58)
[2019-05-02] MEDS ORDERED: PANTOPRAZOLE SODIUM 40 MG VIAL IVPUSH SCH (10:00)
[2019-05-02] MEDS: CEFTRIAXONE 1 GM in DEXTROSE 5%-WATER - 50 ML IVPB SCH (10:05)
[2019-05-02] MEDS ORDERED: morphine CARPU-JECT 2 MG/1 ML DISP.SYRIN IVPUSH PRN (10:06)
[2019-05-02] MEDS ORDERED: MORPHINE SULFATE 2 MG/ML VIAL IVPUSH PRN (10:22)
[2019-05-02] MEDS: NICARDIPINE 25 MG in DEXTROSE 5%-WATER - 240 ML IVPB SCH (10:41)
--- NOTE | 2019-05-02 11:08 | CONSULT ---
Consultation: REQUESTING PROVIDER: Dr. Smith CONSULT REQUEST: We have been asked to medically evaluate this patient for elevated BUN/Cr, evaluation of secondary HTN. HISTORY OF PRESENT ILLNESS: Patient is a 58 year old male with past medical history DM, HTN, anemia, BPH (s/ p prostate procedure), presented to the ED with nausea, vomiting, and lower abdominal pain. Patient reported severe abdominal pain that started suddenly yesterday worse on the suprapubic area, that was accompanied by episodes of vomiting with blood. It was reported that patient had a similar episode a year ago at [facility] where EGD was done revealing iwona lara tears and esophagitis. Patient also endorses dysuria, but did not give any more information. He also endorses not taking his HTN and DM medications regularly. Patient denies any fevers, chills, dizziness, chest pain, SOB, diarrhea, frequency or urgency. He denies alcohol or illicit drug use. No recent travel. Denies sick contacts. Overnight, patient was reported to have multiple episodes of NBNB vomiting. CTAP w/o contrast was done which revealed mild hepatomegaly and diffuse fatty infiltration with no acute pathology. He was also noted to be hypertensive and received a total of 40mg IV Labetalol with minimal improvement and was started on Nicardipine drip. REVIEW OF SYSTEMS: CONSTITUTIONAL: Absent: fever, chills, diaphoresis, generalized weakness, malaise, loss of appetite, weight change HEENT: Absent: rhinorrhea, nasal congestion, throat pain, throat swelling, difficulty swallowing, mouth swelling, ear pain, eye pain, visual changes CARDIOVASCULAR: Absent: chest pain, syncope, palpitations, irregular heart rate, lightheadedness , peripheral edema RESPIRATORY: Absent: cough, shortness of breath, dyspnea with exertion, orthopnea, wheezing, stridor, hemoptysis GASTROINTESTINAL:abdominal pain, nausea, vomiting Absent: abdominal distension, diarrhea, constipation, melena, hematochezia GENITOURINARY: Absent: dysuria, frequency, urgency, hesitancy, hematuria, flank pain, genital pain MUSCULOSKELETAL: Absent: myalgia, arthralgia, joint swelling, back pain, neck pain SKIN: Absent: rash, itching, pallor HEMATOLOGIC/IMMUNOLOGIC: Absent: easy bleeding, easy bruising, lymphadenopathy, frequent infections ENDOCRINE: Absent: unexplained weight gain, unexplained weight loss, heat intolerance, cold intolerance NEUROLOGIC: Absent: headache, focal weakness or paresthesias, dizziness, unsteady gait, seizure, mental status changes, bladder or bowel incontinence PSYCHIATRIC: Absent: anxiety, depression, suicidal or homicidal ideation, hallucinations. Past Medical History DM HTN anemia BPH Past Surgical History L toe amputation ?prostate surgery Allergies no known drug allergies Social History Smoking: Denies Alcohol: Denies Illicit drugs: Denies PHYSICAL EXAMINATION Vital Signs - 24 hr 05/01/19 05/01/19 05/02/19 20:52 22:35 02:30 Temperature 98.4 F 96.1 F L Pulse Rate 110 H Pulse Rate [ 108 H 108 H Left Radial] Respiratory 20 18 20 Rate Blood Pressure 240/143 H Blood Pressure 197/104 H 195/101 H [Left Arm] O2 Sat by Pulse 98 98 98 Oximetry (%) 05/02/19 05/02/19 05/02/19 05:44 06:37 07:31 Temperature Pulse Rate 95 H Pulse Rate [ 104 H 98 H Left Radial] Respiratory 20 16 Rate Blood Pressure 216/126 H Blood Pressure 183/101 H 157/88 [Left Arm] O2 Sat by Pulse 99 98 Oximetry (%) 05/02/19 05/02/19 05/02/19 08:01 08:27 09:00 Temperature 99.2 F Pulse Rate 98 H 92 H Pulse Rate [ 92 H Left Radial] Respiratory 16 16 Rate Blood Pressure 157/88 155/91 Blood Pressure 156/78 [Left Arm] O2 Sat by Pulse 98 99 Oximetry (%) 05/02/19 09:40 Temperature Pulse Rate 97 H Pulse Rate [ Left Radial] Respiratory 18 Rate Blood Pressure 197/116 H Blood Pressure [Left Arm] O2 Sat by Pulse Oximetry (%) GENERAL: Awake, alert, and fully oriented, in pain. HEAD: Normal with no signs of trauma. EYES: PERRLA, EOMI, sclera anicteric, conjunctiva clear. EARS, NOSE, THROAT: Moist mucous membranes. NECK: Normal range of motion, supple without lymphadenopathy, JVD, or masses. LUNGS: Breath sounds equal, clear to auscultation bilaterally. HEART: Regular rate and rhythm, normal S1 and S2 without murmur, rub or gallop. ABDOMEN: Soft, suprapubic tenderness, not distended, normoactive bowel sounds. MUSCULOSKELETAL: Normal range of motion at all joints. No CVA tenderness. UPPER EXTREMITIES: 2+ pulses, warm, well-perfused. LOWER EXTREMITIES: 2+ pulses, warm, well-perfused. No peripheral edema. NEUROLOGICAL: Cranial nerves II-XII intact. Normal speech. Laboratory Results - last 24 hr 05/01/19 05/01/19 05/01/19 21:10 21:10 21:10 WBC 15.6 H RBC 4.20 Hgb 12.6 Hct 38.1 MCV 90.8 MCH 29.9 MCHC 32.9 RDW 13.9 Plt Count 306 MPV 9.2 Absolute Neuts (auto) 13.3 H Neutrophils % 85.2 H Lymphocytes % 9.9 Monocytes % 4.7 Eosinophils % 0.0 Basophils % 0.2 Nucleated RBC % 0 PT with INR INR VBG pH POC VBG pCO2 POC VBG pO2 VBG HCO3 VBG O2 Sat (Aldo) VBG Base Excess Sodium 146 H Potassium 3.7 Chloride 110 H Carbon Dioxide 30 Anion Gap 7 L BUN 23.2 H Creatinine 2.0 H Est GFR (CKD-EPI)AfAm 41.99 Est GFR (CKD-EPI)NonAf 36.23 POC Glucometer Random Glucose 236 H Hemoglobin A1c % Lactic Acid Calcium 8.8 Phosphorus Magnesium Total Bilirubin 0.3 AST 42 H ALT 37 Alkaline Phosphatase 105 Creatine Kinase 1278 H Creatine Kinase Index 0.4 CK-MB (CK-2) 5.7 H Troponin I 0.04 Total Protein 6.3 L Albumin 2.8 L Lipase 71 L TSH 0.22 L Free T4 1.13 Stool Occult Blood Alcohol, Quantitative Blood Type Antibody Screen 05/01/19 05/01/19 05/01/19 21:10 21:10 21:10 WBC RBC Hgb Hct MCV MCH MCHC RDW Plt Count MPV Absolute Neuts (auto) Neutrophils % Lymphocytes % Monocytes % Eosinophils % Basophils % Nucleated RBC % PT with INR 12.90 INR 1.09 VBG pH POC VBG pCO2 POC VBG pO2 VBG HCO3 VBG O2 Sat (Aldo) VBG Base Excess Sodium Potassium Chloride Carbon Dioxide Anion Gap BUN Creatinine Est GFR (CKD-EPI)AfAm Est GFR (CKD-EPI)NonAf POC Glucometer Random Glucose Hemoglobin A1c % Lactic Acid 2.1 H Calcium Phosphorus Magnesium Total Bilirubin AST ALT Alkaline Phosphatase Creatine Kinase Creatine Kinase Index CK-MB (CK-2) Troponin I Total Protein Albumin Lipase TSH Free T4 Stool Occult Blood Alcohol, Quantitative Blood Type O POSITIVE Antibody Screen Negative 05/01/19 05/02/19 05/02/19 22:02 00:20 00:20 WBC RBC Hgb Hct MCV MCH MCHC RDW Plt Count MPV Absolute Neuts (auto) Neutrophils % Lymphocytes % Monocytes % Eosinophils % Basophils % Nucleated RBC % PT with INR INR VBG pH POC VBG pCO2 POC VBG pO2 VBG HCO3 VBG O2 Sat (Aldo) VBG Base Excess Sodium Potassium Chloride Carbon Dioxide Anion Gap BUN Creatinine Est GFR (CKD-EPI)AfAm Est GFR (CKD-EPI)NonAf POC Glucometer Random Glucose Hemoglobin A1c % Lactic Acid Calcium Phosphorus Magnesium Total Bilirubin AST ALT Alkaline Phosphatase Creatine Kinase 1186 H Creatine Kinase Index 0.4 CK-MB (CK-2) 5.2 H Troponin I 0.07 H Total Protein Albumin Lipase TSH Free T4 1.11 Stool Occult Blood Negative Alcohol, Quantitative Blood Type Antibody Screen 05/02/19 05/02/19 05/02/19 00:20 00:20 03:20 WBC 16.2 H RBC 3.94 L Hgb 11.7 Hct 36.0 MCV 91.3 MCH 29.8 MCHC 32.6 RDW 14.3 Plt Count 274 MPV 9.3 Absolute Neuts (auto) 14.0 H Neutrophils % 86.4 H Lymphocytes % 9.0 Monocytes % 4.4 Eosinophils % 0.0 Basophils % 0.2 Nucleated RBC % 0 PT with INR INR VBG pH 7.34 POC VBG pCO2 51.5 POC VBG pO2 < 49 H VBG HCO3 26.9 VBG O2 Sat (Aldo) 58.7 L VBG Base Excess 1.0 Sodium 148 H Potassium 3.6 Chloride 111 H Carbon Dioxide 27 Anion Gap 10 BUN 24.0 H Creatinine 1.9 H Est GFR (CKD-EPI)AfAm 44.68 Est GFR (CKD-EPI)NonAf 38.55 POC Glucometer Random Glucose 238 H Hemoglobin A1c % Lactic Acid Calcium 8.7 Phosphorus Magnesium Total Bilirubin 0.5 AST 38 H ALT 33 Alkaline Phosphatase 99 Creatine Kinase Creatine Kinase Index CK-MB (CK-2) Troponin I Total Protein 5.8 L Albumin 2.6 L Lipase TSH Free T4 Stool Occult Blood Alcohol, Quantitative Blood Type Antibody Screen 05/02/19 05/02/19 05/02/19 03:20 07:28 08:25 WBC RBC Hgb Hct MCV MCH MCHC RDW Plt Count MPV Absolute Neuts (auto) Neutrophils % Lymphocytes % Monocytes % Eosinophils % Basophils % Nucleated RBC % PT with INR INR VBG pH POC VBG pCO2 POC VBG pO2 VBG HCO3 VBG O2 Sat (Aldo) VBG Base Excess Sodium Potassium Chloride Carbon Dioxide Anion Gap BUN Creatinine Est GFR (CKD-EPI)AfAm Est GFR (CKD-EPI)NonAf POC Glucometer 302 Random Glucose Hemoglobin A1c % Lactic Acid 3.2 H* Calcium Phosphorus Magnesium Total Bilirubin AST ALT Alkaline Phosphatase Creatine Kinase Creatine Kinase Index CK-MB (CK-2) Troponin I Total Protein Albumin Lipase TSH Free T4 Stool Occult Blood Alcohol, Quantitative Blood Type O POSITIVE Antibody Screen Negative 05/02/19 05/02/19 05/02/19 08:25 08:25 08:25 WBC 16.4 H RBC 3.89 L Hgb 11.3 L Hct 35.4 MCV 91.0 MCH 29.1 MCHC 32.0 RDW 14.2 Plt Count 281 MPV 9.2 Absolute Neuts (auto) 14.2 H Neutrophils % 86.7 H Lymphocytes % 8.1 Monocytes % 5.1 Eosinophils % 0.0 Basophils % 0.1 Nucleated RBC % 0 PT with INR 13.10 H INR 1.11 H VBG pH POC VBG pCO2 POC VBG pO2 VBG HCO3 VBG O2 Sat (Aldo) VBG Base Excess Sodium 146 H Potassium 3.8 Chloride 111 H Carbon Dioxide 28 Anion Gap 8 BUN 26.0 H Creatinine 2.0 H Est GFR (CKD-EPI)AfAm 41.99 Est GFR (CKD-EPI)NonAf 36.23 POC Glucometer Random Glucose 337 H Hemoglobin A1c % Lactic Acid Calcium 8.1 L Phosphorus 3.6 Magnesium 1.9 Total Bilirubin 0.3 AST 39 H ALT 30 Alkaline Phosphatase 93 Creatine Kinase Creatine Kinase Index CK-MB (CK-2) Troponin I Total Protein 5.7 L Albumin 2.5 L Lipase TSH Free T4 Stool Occult Blood Alcohol, Quantitative Blood Type Antibody Screen 05/02/19 05/02/19 05/02/19 08:25 08:25 08:25 WBC RBC Hgb Hct MCV MCH MCHC RDW Plt Count MPV Absolute Neuts (auto) Neutrophils % Lymphocytes % Monocytes % Eosinophils % Basophils % Nucleated RBC % PT with INR INR VBG pH POC VBG pCO2 POC VBG pO2 VBG HCO3 VBG O2 Sat (Aldo) VBG Base Excess Sodium Potassium Chloride Carbon Dioxide Anion Gap BUN Creatinine Est GFR (CKD-EPI)AfAm Est GFR (CKD-EPI)NonAf POC Glucometer Random Glucose Hemoglobin A1c % 8.0 H Lactic Acid 3.0 H* Calcium Phosphorus Magnesium Total Bilirubin AST ALT Alkaline Phosphatase Creatine Kinase Creatine Kinase Index CK-MB (CK-2) Troponin I Total Protein Albumin Lipase TSH Free T4 Stool Occult Blood Alcohol, Quantitative < 3 Blood Type Antibody Screen 05/02/19 08:25 WBC RBC Hgb Hct MCV MCH MCHC RDW Plt Count MPV Absolute Neuts (auto) Neutrophils % Lymphocytes % Monocytes % Eosinophils % Basophils % Nucleated RBC % PT with INR INR VBG pH POC VBG pCO2 POC VBG pO2 VBG HCO3 VBG O2 Sat (Aldo) VBG Base Excess Sodium Potassium Chloride Carbon Dioxide Anion Gap BUN Creatinine Est GFR (CKD-EPI)AfAm Est GFR (CKD-EPI)NonAf POC Glucometer Random Glucose Hemoglobin A1c % Lactic Acid Calcium Phosphorus Magnesium Total Bilirubin AST ALT Alkaline Phosphatase Creatine Kinase 1675 H Creatine Kinase Index CK-MB (CK-2) Troponin I 0.07 H Total Protein Albumin Lipase TSH Free T4 Stool Occult Blood Alcohol, Quantitative Blood Type Antibody Screen Active Medications Generic Name Dose Route Start Last Admin Trade Name Freq PRN Reason Stop Dose Admin Chlorhexidine Gluconate 1 applic 05/02/19 22:00 Hibiclens For Decolonization - TP HS PAVEL Heparin Sodium (Porcine) 5,000 unit 05/02/19 06:00 05/02/19 07:06 Heparin - SQ 5,000 unit TID PAVEL Administration Ceftriaxone Sodium 1 gm/ 50 mls @ 100 mls/hr 05/02/19 10:00 05/02/19 10:05 Dextrose IVPB 100 mls/hr DAILY PAVEL Administration Metronidazole 500 mg in 100 mls @ 100 mls/hr 05/02/19 10:00 Flagyl 500mg Premixed Ivpb - IVPB Q8H-IV PAVEL Nicardipine HCl 25 mg/ 250 mls @ 25 mls/hr 05/02/19 10:15 Dextrose IVPB TITR PAVEL Protocol 2.5 MG/HR Morphine Sulfate 2 mg 05/02/19 10:22 Morphine Sulfate IVPUSH Q6H PRN PAIN LEVEL 7 - 10 Mupirocin 1 applic 05/02/19 10:00 Bactroban Ointment (For Decolonization) - NS 05/07/19 09:59 BID PAVEL Ondansetron HCl 4 mg 05/02/19 10:07 Zofran Injection IVPUSH Q6H PRN NAUSEA AND/OR VOMITING Pantoprazole Sodium 40 mg 05/02/19 10:00 05/02/19 10:05 Protonix Iv IVPUSH 40 mg BID PAVEL Administration ASSESSMENT/PLAN: Patient is a 58 year old male with past medical history DM, HTN, anemia, BPH (s/ p prostate procedure), presented to the ED with nausea, vomiting, and lower abdominal pain. #VAISHNAVI -unknown baseline,possibly prerenal from dehydration, rule out obstruction -Bladder scan done showed >700cc, post void -UA -urine toxicology -urine lytes -renal ultrasound -monitor I&O -will continue to monitor BUN/Cr #Hypertensive urgency -BP still elevated with SBP >180 -Trops peaked at 0.07 -continue Nicardipine drip -diabetic/sodium restricted diet -heparin 5000u sq tid Dispo: We will continue to follow the patient. Thank you for this consultative opportunity. Visit type - Emergency Visit Emergency Visit: Yes ED Registration Date: 05/02/19 Care time: The patient presented to the Emergency Department on the above date and was hospitalized for further evaluation of their emergent condition. - New Patient This patient is new to me today: Yes Date on this admission: 05/02/19 - Critical Care Critical Care patient: Yes Total Critical Care Time (in minutes): 35 Critical Care Statement: The care of this patient involved high complexity decision making to prevent further life threatening deterioration of the patient 's condition and/or to evaluate & treat vital organ system(s) failure or risk of failure. ATTENDING PHYSICIAN STATEMENT I saw and evaluated the patient. I reviewed the resident's note and discussed the case with the resident. I agree with the resident's findings and plan as documented. SUBJECTIVE: OBJECTIVE: ASSESSMENT AND PLAN:
[2019-05-02] MEDS: MUPIROCIN 2% TOPICAL OINTMENT FOR DECOLONIZATION NS SCH ×2 (11:41→21:51)
--- NOTE | 2019-05-02 11:51 | EKG ---
Test Reason : Blood Pressure : / mmHG Vent. Rate : 103 BPM Atrial Rate : 103 BPM P-R Int : 164 ms QRS Dur : 100 ms QT Int : 356 ms P-R-T Axes : 068 -52 067 degrees QTc Int : 466 ms SINUS TACHYCARDIA INCOMPLETE RIGHT BUNDLE BRANCH BLOCK LEFT ANTERIOR FASCICULAR BLOCK SEPTAL INFARCT , AGE UNDETERMINED ABNORMAL ECG NO PREVIOUS ECGS AVAILABLE Confirmed by FAYE CHILD MD ([id number]) on 05/02/2019 11:51:11 AM Referred By: Confirmed By:FAYE CHILD MD
--- NOTE | 2019-05-02 11:51 | EKG ---
Test Reason : Blood Pressure : / mmHG Vent. Rate : 098 BPM Atrial Rate : 098 BPM P-R Int : 172 ms QRS Dur : 104 ms QT Int : 374 ms P-R-T Axes : 068 -48 020 degrees QTc Int : 477 ms NORMAL SINUS RHYTHM INCOMPLETE RIGHT BUNDLE BRANCH BLOCK LEFT ANTERIOR FASCICULAR BLOCK SEPTAL INFARCT (CITED ON OR BEFORE 01-MAY-2019) ABNORMAL ECG WHEN COMPARED WITH ECG OF 01-MAY-2019 21:10, NONSPECIFIC T WAVE ABNORMALITY NOW EVIDENT IN INFERIOR LEADS Confirmed by FAYE CHILD MD ([id number]) on 05/02/2019 11:50:50 AM Referred By: Confirmed By:FAYE CHILD MD
[2019-05-02] MEDS ORDERED: METOCLOPRAMIDE HCL INJECTION 10 MG/2 ML VIAL IVPUSH ONE (12:07)
--- NOTE | 2019-05-02 12:23 | PN ---
Teaching Attending Note Name of Resident: Ana Fox ATTENDING PHYSICIAN STATEMENT I saw and evaluated the patient. I reviewed the resident's note and discussed the case with the resident. I agree with the resident's findings and plan as documented. SUBJECTIVE: Patient seen and examined in the ICU. Awake and alert. (+) MEN[place] (+) Nausea (+) Abdominal pain No CP or SOB. Cardene drip was stopped and BP: 220/146 Intake & Output 04/29/19 04/30/19 05/01/19 05/02/19 23:59 23:59 23:59 23:59 Weight 220 lb 202 lb 13.204 oz Last Vital Signs Temp Pulse Resp BP Pulse Ox 98.5 F 97 H 18 206/102 H 100 05/02/19 10:00 05/02/19 10:41 05/02/19 10:00 05/02/19 10:41 05/02/19 10:00 Active Medications Chlorhexidine Gluconate (Hibiclens For Decolonization -) 1 applic TP HS PAVEL Heparin Sodium (Porcine) (Heparin -) 5,000 unit SQ TID [facility] Last Admin: 05/02/19 07:06 Dose: 5,000 unit Ceftriaxone Sodium 1 gm/ (Dextrose) 50 mls @ 100 mls/hr IVPB DAILY [facility] Last Admin: 05/02/19 10:05 Dose: 100 mls/hr Metronidazole (Flagyl 500mg Premixed Ivpb -) 500 mg in 100 mls @ 100 mls/hr IVPB Q8H-IV PAVEL Last Admin: 05/02/19 11:41 Dose: 100 mls/hr Nicardipine HCl 25 mg/ (Dextrose) 250 mls @ 25 mls/hr IVPB TITR PAVEL; Protocol Last Admin: 05/02/19 10:41 Dose: 2.5 mg/hr, 25 mls/hr Metoclopramide HCl (Reglan Injection -) 5 mg IVPUSH ONCE ONE Stop: 05/02/19 12:08 Morphine Sulfate (Morphine Sulfate) 2 mg IVPUSH Q6H PRN PRN Reason: PAIN LEVEL 7 - 10 Last Admin: 05/02/19 10:28 Dose: 2 mg Mupirocin (Bactroban Ointment (For Decolonization) -) 1 applic NS BID [facility] Stop: 05/07/19 09:59 Last Admin: 05/02/19 11:41 Dose: 1 applic Ondansetron HCl (Zofran Injection) 4 mg IVPUSH Q6H PRN PRN Reason: NAUSEA AND/OR VOMITING Pantoprazole Sodium (Protonix Iv) 40 mg IVPUSH BID PAVEL Last Admin: 05/02/19 10:05 Dose: 40 mg GENERAL: Awake, alert, and fully oriented, uncomfortable HEAD: Normal with no signs of trauma. EYES: PERRLA, EOMI, sclera anicteric, conjunctiva clear. EARS, NOSE, THROAT: Moist mucous membranes. NECK: Normal range of motion, supple without lymphadenopathy, JVD, or masses. LUNGS: Breath sounds equal, clear to auscultation bilaterally. HEART: Regular rate and rhythm, normal S1 and S2 without murmur, rub or gallop. ABDOMEN: Soft, RLQ/LLQ tenderness, not distended, normoactive bowel sounds. MUSCULOSKELETAL: Normal range of motion at all joints. No CVA tenderness. UPPER EXTREMITIES: 2+ pulses, warm, well-perfused. LOWER EXTREMITIES: 2+ pulses, warm, well-perfused. No peripheral edema. NEUROLOGICAL: Cranial nerves II-XII intact. Normal speech. Laboratory Results - last 24 hr 05/01/19 05/01/19 05/01/19 21:10 21:10 21:10 WBC 15.6 H RBC 4.20 Hgb 12.6 Hct 38.1 MCV 90.8 MCH 29.9 MCHC 32.9 RDW 13.9 Plt Count 306 MPV 9.2 Absolute Neuts (auto) 13.3 H Neutrophils % 85.2 H Lymphocytes % 9.9 Monocytes % 4.7 Eosinophils % 0.0 Basophils % 0.2 Nucleated RBC % 0 PT with INR INR VBG pH POC VBG pCO2 POC VBG pO2 VBG HCO3 VBG O2 Sat (Aldo) VBG Base Excess Sodium 146 H Potassium 3.7 Chloride 110 H Carbon Dioxide 30 Anion Gap 7 L BUN 23.2 H Creatinine 2.0 H Est GFR (CKD-EPI)AfAm 41.99 Est GFR (CKD-EPI)NonAf 36.23 POC Glucometer Random Glucose 236 H Hemoglobin A1c % Lactic Acid Calcium 8.8 Phosphorus Magnesium Total Bilirubin 0.3 AST 42 H ALT 37 Alkaline Phosphatase 105 Creatine Kinase 1278 H Creatine Kinase Index 0.4 CK-MB (CK-2) 5.7 H Troponin I 0.04 Total Protein 6.3 L Albumin 2.8 L Lipase 71 L TSH 0.22 L Free T4 1.13 Stool Occult Blood Alcohol, Quantitative Blood Type Antibody Screen 05/01/19 05/01/19 05/01/19 21:10 21:10 21:10 WBC RBC Hgb Hct MCV MCH MCHC RDW Plt Count MPV Absolute Neuts (auto) Neutrophils % Lymphocytes % Monocytes % Eosinophils % Basophils % Nucleated RBC % PT with INR 12.90 INR 1.09 VBG pH POC VBG pCO2 POC VBG pO2 VBG HCO3 VBG O2 Sat (Aldo) VBG Base Excess Sodium Potassium Chloride Carbon Dioxide Anion Gap BUN Creatinine Est GFR (CKD-EPI)AfAm Est GFR (CKD-EPI)NonAf POC Glucometer Random Glucose Hemoglobin A1c % Lactic Acid 2.1 H Calcium Phosphorus Magnesium Total Bilirubin AST ALT Alkaline Phosphatase Creatine Kinase Creatine Kinase Index CK-MB (CK-2) Troponin I Total Protein Albumin Lipase TSH Free T4 Stool Occult Blood Alcohol, Quantitative Blood Type O POSITIVE Antibody Screen Negative 05/01/19 05/02/19 05/02/19 22:02 00:20 00:20 WBC RBC Hgb Hct MCV MCH MCHC RDW Plt Count MPV Absolute Neuts (auto) Neutrophils % Lymphocytes % Monocytes % Eosinophils % Basophils % Nucleated RBC % PT with INR INR VBG pH POC VBG pCO2 POC VBG pO2 VBG HCO3 VBG O2 Sat (Aldo) VBG Base Excess Sodium Potassium Chloride Carbon Dioxide Anion Gap BUN Creatinine Est GFR (CKD-EPI)AfAm Est GFR (CKD-EPI)NonAf POC Glucometer Random Glucose Hemoglobin A1c % Lactic Acid Calcium Phosphorus Magnesium Total Bilirubin AST ALT Alkaline Phosphatase Creatine Kinase 1186 H Creatine Kinase Index 0.4 CK-MB (CK-2) 5.2 H Troponin I 0.07 H Total Protein Albumin Lipase TSH Free T4 1.11 Stool Occult Blood Negative Alcohol, Quantitative Blood Type Antibody Screen 05/02/19 05/02/19 05/02/19 00:20 00:20 03:20 WBC 16.2 H RBC 3.94 L Hgb 11.7 Hct 36.0 MCV 91.3 MCH 29.8 MCHC 32.6 RDW 14.3 Plt Count 274 MPV 9.3 Absolute Neuts (auto) 14.0 H Neutrophils % 86.4 H Lymphocytes % 9.0 Monocytes % 4.4 Eosinophils % 0.0 Basophils % 0.2 Nucleated RBC % 0 PT with INR INR VBG pH 7.34 POC VBG pCO2 51.5 POC VBG pO2 < 49 H VBG HCO3 26.9 VBG O2 Sat (Aldo) 58.7 L VBG Base Excess 1.0 Sodium 148 H Potassium 3.6 Chloride 111 H Carbon Dioxide 27 Anion Gap 10 BUN 24.0 H Creatinine 1.9 H Est GFR (CKD-EPI)AfAm 44.68 Est GFR (CKD-EPI)NonAf 38.55 POC Glucometer Random Glucose 238 H Hemoglobin A1c % Lactic Acid Calcium 8.7 Phosphorus Magnesium Total Bilirubin 0.5 AST 38 H ALT 33 Alkaline Phosphatase 99 Creatine Kinase Creatine Kinase Index CK-MB (CK-2) Troponin I Total Protein 5.8 L Albumin 2.6 L Lipase TSH Free T4 Stool Occult Blood Alcohol, Quantitative Blood Type Antibody Screen 05/02/19 05/02/19 05/02/19 03:20 07:28 08:25 WBC RBC Hgb Hct MCV MCH MCHC RDW Plt Count MPV Absolute Neuts (auto) Neutrophils % Lymphocytes % Monocytes % Eosinophils % Basophils % Nucleated RBC % PT with INR INR VBG pH POC VBG pCO2 POC VBG pO2 VBG HCO3 VBG O2 Sat (Aldo) VBG Base Excess Sodium Potassium Chloride Carbon Dioxide Anion Gap BUN Creatinine Est GFR (CKD-EPI)AfAm Est GFR (CKD-EPI)NonAf POC Glucometer 302 Random Glucose Hemoglobin A1c % Lactic Acid 3.2 H* Calcium Phosphorus Magnesium Total Bilirubin AST ALT Alkaline Phosphatase Creatine Kinase Creatine Kinase Index CK-MB (CK-2) Troponin I Total Protein Albumin Lipase TSH Free T4 Stool Occult Blood Alcohol, Quantitative Blood Type O POSITIVE Antibody Screen Negative 05/02/19 05/02/19 05/02/19 08:25 08:25 08:25 WBC 16.4 H RBC 3.89 L Hgb 11.3 L Hct 35.4 MCV 91.0 MCH 29.1 MCHC 32.0 RDW 14.2 Plt Count 281 MPV 9.2 Absolute Neuts (auto) 14.2 H Neutrophils % 86.7 H Lymphocytes % 8.1 Monocytes % 5.1 Eosinophils % 0.0 Basophils % 0.1 Nucleated RBC % 0 PT with INR 13.10 H INR 1.11 H VBG pH POC VBG pCO2 POC VBG pO2 VBG HCO3 VBG O2 Sat (Aldo) VBG Base Excess Sodium 146 H Potassium 3.8 Chloride 111 H Carbon Dioxide 28 Anion Gap 8 BUN 26.0 H Creatinine 2.0 H Est GFR (CKD-EPI)AfAm 41.99 Est GFR (CKD-EPI)NonAf 36.23 POC Glucometer Random Glucose 337 H Hemoglobin A1c % Lactic Acid Calcium 8.1 L Phosphorus 3.6 Magnesium 1.9 Total Bilirubin 0.3 AST 39 H ALT 30 Alkaline Phosphatase 93 Creatine Kinase Creatine Kinase Index CK-MB (CK-2) Troponin I Total Protein 5.7 L Albumin 2.5 L Lipase TSH Free T4 Stool Occult Blood Alcohol, Quantitative Blood Type Antibody Screen 05/02/19 05/02/19 05/02/19 08:25 08:25 08:25 WBC RBC Hgb Hct MCV MCH MCHC RDW Plt Count MPV Absolute Neuts (auto) Neutrophils % Lymphocytes % Monocytes % Eosinophils % Basophils % Nucleated RBC % PT with INR INR VBG pH POC VBG pCO2 POC VBG pO2 VBG HCO3 VBG O2 Sat (Aldo) VBG Base Excess Sodium Potassium Chloride Carbon Dioxide Anion Gap BUN Creatinine Est GFR (CKD-EPI)AfAm Est GFR (CKD-EPI)NonAf POC Glucometer Random Glucose Hemoglobin A1c % 8.0 H Lactic Acid 3.0 H* Calcium Phosphorus Magnesium Total Bilirubin AST ALT Alkaline Phosphatase Creatine Kinase Creatine Kinase Index CK-MB (CK-2) Troponin I Total Protein Albumin Lipase TSH Free T4 Stool Occult Blood Alcohol, Quantitative < 3 Blood Type Antibody Screen 05/02/19 08:25 WBC RBC Hgb Hct MCV MCH MCHC RDW Plt Count MPV Absolute Neuts (auto) Neutrophils % Lymphocytes % Monocytes % Eosinophils % Basophils % Nucleated RBC % PT with INR INR VBG pH POC VBG pCO2 POC VBG pO2 VBG HCO3 VBG O2 Sat (Aldo) VBG Base Excess Sodium Potassium Chloride Carbon Dioxide Anion Gap BUN Creatinine Est GFR (CKD-EPI)AfAm Est GFR (CKD-EPI)NonAf POC Glucometer Random Glucose Hemoglobin A1c % Lactic Acid Calcium Phosphorus Magnesium Total Bilirubin AST ALT Alkaline Phosphatase Creatine Kinase 1675 H Creatine Kinase Index CK-MB (CK-2) Troponin I 0.07 H Total Protein Albumin Lipase TSH Free T4 Stool Occult Blood Alcohol, Quantitative Blood Type Antibody Screen ASSESSMENT/PLAN: Hypertensive Urgency DM HTN Anemia BPH VAISHNAVI R/O acute cholecystitis Medication non-compliance Cardene drip: Reduction in BP by 25% Follow up abdominal imaging Follow Troponin levels O2 as needed VTE prophylaxis IV Hydration Send Toxicology Requires ICU monitoring for Tony Jason Critical care time spent in reviewing chart, evaluating patient and formulating plan - 36 minutes.
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
--- NOTE | 2019-05-02 14:14 | ECHO ---
Name: MUSTAFATRAM CURTISDOTTY Salazar Exam:Adult Echocardiogram Study Date: 05/02/2019 11:05 AM Age: 58 yrs Reason For Study: htn emergency Height: 75 in Weight: 220 lb BSA: 2.3 m2 MMode/2D Measurements & Calculations IVSd: 1.3 cm Ao root diam: 3.6 cm LVIDd: 4.8 cm LA dimension: 3.8 cm LVIDs: 2.3 cm ACS: 2.8 cm LVPWd: 1.2 cm IVSs: 1.3 cm LVPWs: 1.3 cm EDV(Teich): 105.6 ml ESV(Teich): 17.3 ml Doppler Measurements & Calculations MV E max jay: 59.5 cm/sec Ao V2 max: 117.4 cm/sec MV A max jay: 84.7 cm/sec Ao max P.5 mmHg MV E/A: 0.70 Ao V2 mean: 73.3 cm/sec Ao mean P.5 mmHg Ao V2 VTI: 19.6 cm TR max jay: 275.1 cm/sec Med Peak E' Jay: 8.0 cm/sec TR max P.4 mmHg Med E/e': 7.4 Lat Peak E' Jay: 6.9 cm/sec Lat E/e': 8.6 Procedure A complete two-dimensional transthoracic echocardiogram was performed (2D, M-mode, Doppler and color flow Doppler). Left Ventricle There is moderate concentric left ventricular hypertrophy. The left ventricular ejection fraction is normal. Ejection Fraction = 60-65%. The left ventricular wall motion is normal. Right Ventricle The right ventricle is normal in size and function. Atria Normal left and right atrial size and function. Mitral Valve There is no mitral regurgitation noted. Tricuspid Valve There is trace tricuspid regurgitation. There was insufficient TR detected to calculate RV systolic p ressure. Aortic Valve The aortic valve is trileaflet. No hemodynamically significant valvular aortic stenosis. No aortic regurgitation is present. Pulmonic Valve There is no pulmonic valvular regurgitation. Great Vessels The aortic root is normal size. Pericardium/Pleura There is no pericardial effusion. Interpretation Summary The left ventricular ejection fraction is normal. There is moderate concentric left ventricular hypertrophy. The right ventricle is normal in size and function. There is trace tricuspid regurgitation. MD Bryan Johnson 05/02/2019 02:13 PM
[2019-05-02 14:38] LABS: COCAINE, UR NEGATIVE ng/ml (CUTOFF=300); METHADONE, UR NEGATIVE ng/ml (CUTOFF=300); OPIATES, URI NEGATIVE ng/ml (CUTOFF=300); PHENCYCLIDINE,URINE NEGATIVE ng/ml (CUTOFF=25); URINE AMPHETAMINES NEGATIVE ng/ml (CUTOFF=500); URINE BARBITURATES NEGATIVE ng/ml (CUTOFF=200); URINE BENZODIAZEPINES NEGATIVE ng/ml (CUTOFF=200)
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
--- NOTE | 2019-05-02 15:07 | PN ---
Progress Note (short form) - Note Progress Note: 58 AA M h/o GI bleeding (03/2018, requiring carafate), NIDDM, HTN, Chronic abdominal pain (H. pylori infection), and chronic anemia (unknown cause, recent colonoscopy and endoscopy scheduled for 05/07/19), who presents to the ER with 3 days of progressively worsening burning epigastric abdominal pain with associated hematemesis (dark, watery red) and melena. Patient transferred to ICU service for HTN urgency, suspected UGIB, awaiting GI evaluation for possible EGD. Currently still vomiting, on PPI drip, pain control, H/H and platelets stable however. PE VS: 167/94, 114HR, 18RR GA anxious, AAox3, vomiting HEENT NC/AT, EOMI, neck supple, dry MM Chest CTAB, no crackles/wheezing CVS S1, S2+, sinus tachycardia Abd Soft, ND, mild RUQ tenderness, no guarding Ext NO LE edema Vital Signs (72 hours) 05/01/19 05/01/19 05/02/19 20:52 22:35 02:30 Temperature 98.4 F 96.1 F L Pulse Rate 110 H Pulse Rate [ 108 H 108 H Left Radial] Respiratory 20 18 20 Rate Blood Pressure 240/143 H Blood Pressure 197/104 H 195/101 H [Left Arm] O2 Sat by Pulse 98 98 98 Oximetry (%) 05/02/19 05/02/19 05/02/19 05:44 06:37 07:31 Temperature Pulse Rate 95 H Pulse Rate [ 104 H 98 H Left Radial] Respiratory 20 16 Rate Blood Pressure 216/126 H Blood Pressure 183/101 H 157/88 [Left Arm] O2 Sat by Pulse 99 98 Oximetry (%) 05/02/19 05/02/19 05/02/19 08:01 08:27 09:00 Temperature 99.2 F Pulse Rate 98 H 92 H Pulse Rate [ 92 H Left Radial] Respiratory 16 16 Rate Blood Pressure 157/88 155/91 Blood Pressure 156/78 [Left Arm] O2 Sat by Pulse 98 99 Oximetry (%) 05/02/19 05/02/19 05/02/19 09:40 10:00 10:41 Temperature 98.5 F Pulse Rate 97 H 102 H 97 H Pulse Rate [ Left Radial] Respiratory 18 18 Rate Blood Pressure 197/116 H 190/100 H 206/102 H Blood Pressure [Left Arm] O2 Sat by Pulse 100 Oximetry (%) 05/02/19 05/02/19 05/02/19 12:00 13:00 13:30 Temperature 98.6 F Pulse Rate 101 H 98 H 99 H Pulse Rate [ Left Radial] Respiratory 16 18 17 Rate Blood Pressure 171/102 H 166/86 168/88 Blood Pressure [Left Arm] O2 Sat by Pulse Oximetry (%) 05/02/19 15:00 Temperature 98.9 F Pulse Rate 99 H Pulse Rate [ Left Radial] Respiratory 18 Rate Blood Pressure 167/94 Blood Pressure [Left Arm] O2 Sat by Pulse Oximetry (%) Laboratory Results - last 24 hr 05/01/19 05/01/19 05/01/19 21:10 21:10 21:10 WBC 15.6 H RBC 4.20 Hgb 12.6 Hct 38.1 MCV 90.8 MCH 29.9 MCHC 32.9 RDW 13.9 Plt Count 306 MPV 9.2 Absolute Neuts (auto) 13.3 H Neutrophils % 85.2 H Lymphocytes % 9.9 Monocytes % 4.7 Eosinophils % 0.0 Basophils % 0.2 Nucleated RBC % 0 PT with INR INR VBG pH POC VBG pCO2 POC VBG pO2 VBG HCO3 VBG O2 Sat (Aldo) VBG Base Excess Sodium 146 H Potassium 3.7 Chloride 110 H Carbon Dioxide 30 Anion Gap 7 L BUN 23.2 H Creatinine 2.0 H Est GFR (CKD-EPI)AfAm 41.99 Est GFR (CKD-EPI)NonAf 36.23 POC Glucometer Random Glucose 236 H Hemoglobin A1c % Serum Osmolality Lactic Acid Calcium 8.8 Phosphorus Magnesium Total Bilirubin 0.3 AST 42 H ALT 37 Alkaline Phosphatase 105 Creatine Kinase 1278 H Creatine Kinase Index 0.4 CK-MB (CK-2) 5.7 H Troponin I 0.04 Total Protein 6.3 L Albumin 2.8 L Lipase 71 L TSH 0.22 L Free T4 1.13 Urine Osmolality Ur Random Creatinine Ur Random Sodium Ur Random Potassium Ur Random Chloride Ur Random Urea Nitrogn Stool Occult Blood Opiates Screen Methadone Screen Barbiturate Screen Phencyclidine Screen Ur Amphetamines Screen MDMA (Ecstasy) Screen Benzodiazepines Screen Cocaine Screen U Marijuana (THC) Screen Alcohol, Quantitative Blood Type Antibody Screen 05/01/19 05/01/19 05/01/19 21:10 21:10 21:10 WBC RBC Hgb Hct MCV MCH MCHC RDW Plt Count MPV Absolute Neuts (auto) Neutrophils % Lymphocytes % Monocytes % Eosinophils % Basophils % Nucleated RBC % PT with INR 12.90 INR 1.09 VBG pH POC VBG pCO2 POC VBG pO2 VBG HCO3 VBG O2 Sat (Aldo) VBG Base Excess Sodium Potassium Chloride Carbon Dioxide Anion Gap BUN Creatinine Est GFR (CKD-EPI)AfAm Est GFR (CKD-EPI)NonAf POC Glucometer Random Glucose Hemoglobin A1c % Serum Osmolality Lactic Acid 2.1 H Calcium Phosphorus Magnesium Total Bilirubin AST ALT Alkaline Phosphatase Creatine Kinase Creatine Kinase Index CK-MB (CK-2) Troponin I Total Protein Albumin Lipase TSH Free T4 Urine Osmolality Ur Random Creatinine Ur Random Sodium Ur Random Potassium Ur Random Chloride Ur Random Urea Nitrogn Stool Occult Blood Opiates Screen Methadone Screen Barbiturate Screen Phencyclidine Screen Ur Amphetamines Screen MDMA (Ecstasy) Screen Benzodiazepines Screen Cocaine Screen U Marijuana (THC) Screen Alcohol, Quantitative Blood Type O POSITIVE Antibody Screen Negative 05/01/19 05/02/19 05/02/19 22:02 00:20 00:20 WBC RBC Hgb Hct MCV MCH MCHC RDW Plt Count MPV Absolute Neuts (auto) Neutrophils % Lymphocytes % Monocytes % Eosinophils % Basophils % Nucleated RBC % PT with INR INR VBG pH POC VBG pCO2 POC VBG pO2 VBG HCO3 VBG O2 Sat (Aldo) VBG Base Excess Sodium Potassium Chloride Carbon Dioxide Anion Gap BUN Creatinine Est GFR (CKD-EPI)AfAm Est GFR (CKD-EPI)NonAf POC Glucometer Random Glucose Hemoglobin A1c % Serum Osmolality Lactic Acid Calcium Phosphorus Magnesium Total Bilirubin AST ALT Alkaline Phosphatase Creatine Kinase 1186 H Creatine Kinase Index 0.4 CK-MB (CK-2) 5.2 H Troponin I 0.07 H Total Protein Albumin Lipase TSH Free T4 1.11 Urine Osmolality Ur Random Creatinine Ur Random Sodium Ur Random Potassium Ur Random Chloride Ur Random Urea Nitrogn Stool Occult Blood Negative Opiates Screen Methadone Screen Barbiturate Screen Phencyclidine Screen Ur Amphetamines Screen MDMA (Ecstasy) Screen Benzodiazepines Screen Cocaine Screen U Marijuana (THC) Screen Alcohol, Quantitative Blood Type Antibody Screen 05/02/19 05/02/19 05/02/19 00:20 00:20 03:20 WBC 16.2 H RBC 3.94 L Hgb 11.7 Hct 36.0 MCV 91.3 MCH 29.8 MCHC 32.6 RDW 14.3 Plt Count 274 MPV 9.3 Absolute Neuts (auto) 14.0 H Neutrophils % 86.4 H Lymphocytes % 9.0 Monocytes % 4.4 Eosinophils % 0.0 Basophils % 0.2 Nucleated RBC % 0 PT with INR INR VBG pH 7.34 POC VBG pCO2 51.5 POC VBG pO2 < 49 H VBG HCO3 26.9 VBG O2 Sat (Aldo) 58.7 L VBG Base Excess 1.0 Sodium 148 H Potassium 3.6 Chloride 111 H Carbon Dioxide 27 Anion Gap 10 BUN 24.0 H Creatinine 1.9 H Est GFR (CKD-EPI)AfAm 44.68 Est GFR (CKD-EPI)NonAf 38.55 POC Glucometer Random Glucose 238 H Hemoglobin A1c % Serum Osmolality Lactic Acid Calcium 8.7 Phosphorus Magnesium Total Bilirubin 0.5 AST 38 H ALT 33 Alkaline Phosphatase 99 Creatine Kinase Creatine Kinase Index CK-MB (CK-2) Troponin I Total Protein 5.8 L Albumin 2.6 L Lipase TSH Free T4 Urine Osmolality Ur Random Creatinine Ur Random Sodium Ur Random Potassium Ur Random Chloride Ur Random Urea Nitrogn Stool Occult Blood Opiates Screen Methadone Screen Barbiturate Screen Phencyclidine Screen Ur Amphetamines Screen MDMA (Ecstasy) Screen Benzodiazepines Screen Cocaine Screen U Marijuana (THC) Screen Alcohol, Quantitative Blood Type Antibody Screen 05/02/19 05/02/19 05/02/19 03:20 07:28 08:25 WBC RBC Hgb Hct MCV MCH MCHC RDW Plt Count MPV Absolute Neuts (auto) Neutrophils % Lymphocytes % Monocytes % Eosinophils % Basophils % Nucleated RBC % PT with INR INR VBG pH POC VBG pCO2 POC VBG pO2 VBG HCO3 VBG O2 Sat (Aldo) VBG Base Excess Sodium Potassium Chloride Carbon Dioxide Anion Gap BUN Creatinine Est GFR (CKD-EPI)AfAm Est GFR (CKD-EPI)NonAf POC Glucometer 302 Random Glucose Hemoglobin A1c % Serum Osmolality Lactic Acid 3.2 H* Calcium Phosphorus Magnesium Total Bilirubin AST ALT Alkaline Phosphatase Creatine Kinase Creatine Kinase Index CK-MB (CK-2) Troponin I Total Protein Albumin Lipase TSH Free T4 Urine Osmolality Ur Random Creatinine Ur Random Sodium Ur Random Potassium Ur Random Chloride Ur Random Urea Nitrogn Stool Occult Blood Opiates Screen Methadone Screen Barbiturate Screen Phencyclidine Screen Ur Amphetamines Screen MDMA (Ecstasy) Screen Benzodiazepines Screen Cocaine Screen U Marijuana (THC) Screen Alcohol, Quantitative Blood Type O POSITIVE Antibody Screen Negative 05/02/19 05/02/19 05/02/19 08:25 08:25 08:25 WBC 16.4 H RBC 3.89 L Hgb 11.3 L Hct 35.4 MCV 91.0 MCH 29.1 MCHC 32.0 RDW 14.2 Plt Count 281 MPV 9.2 Absolute Neuts (auto) 14.2 H Neutrophils % 86.7 H Lymphocytes % 8.1 Monocytes % 5.1 Eosinophils % 0.0 Basophils % 0.1 Nucleated RBC % 0 PT with INR 13.10 H INR 1.11 H VBG pH POC VBG pCO2 POC VBG pO2 VBG HCO3 VBG O2 Sat (Aldo) VBG Base Excess Sodium 146 H Potassium 3.8 Chloride 111 H Carbon Dioxide 28 Anion Gap 8 BUN 26.0 H Creatinine 2.0 H Est GFR (CKD-EPI)AfAm 41.99 Est GFR (CKD-EPI)NonAf 36.23 POC Glucometer Random Glucose 337 H Hemoglobin A1c % Serum Osmolality Lactic Acid Calcium 8.1 L Phosphorus 3.6 Magnesium 1.9 Total Bilirubin 0.3 AST 39 H ALT 30 Alkaline Phosphatase 93 Creatine Kinase Creatine Kinase Index CK-MB (CK-2) Troponin I Total Protein 5.7 L Albumin 2.5 L Lipase TSH Free T4 Urine Osmolality Ur Random Creatinine Ur Random Sodium Ur Random Potassium Ur Random Chloride Ur Random Urea Nitrogn Stool Occult Blood Opiates Screen Methadone Screen Barbiturate Screen Phencyclidine Screen Ur Amphetamines Screen MDMA (Ecstasy) Screen Benzodiazepines Screen Cocaine Screen U Marijuana (THC) Screen Alcohol, Quantitative Blood Type Antibody Screen 05/02/19 05/02/19 05/02/19 08:25 08:25 08:25 WBC RBC Hgb Hct MCV MCH MCHC RDW Plt Count MPV Absolute Neuts (auto) Neutrophils % Lymphocytes % Monocytes % Eosinophils % Basophils % Nucleated RBC % PT with INR INR VBG pH POC VBG pCO2 POC VBG pO2 VBG HCO3 VBG O2 Sat (Aldo) VBG Base Excess Sodium Potassium Chloride Carbon Dioxide Anion Gap BUN Creatinine Est GFR (CKD-EPI)AfAm Est GFR (CKD-EPI)NonAf POC Glucometer Random Glucose Hemoglobin A1c % 8.0 H Serum Osmolality Lactic Acid 3.0 H* Calcium Phosphorus Magnesium Total Bilirubin AST ALT Alkaline Phosphatase Creatine Kinase Creatine Kinase Index CK-MB (CK-2) Troponin I Total Protein Albumin Lipase TSH Free T4 Urine Osmolality Ur Random Creatinine Ur Random Sodium Ur Random Potassium Ur Random Chloride Ur Random Urea Nitrogn Stool Occult Blood Opiates Screen Methadone Screen Barbiturate Screen Phencyclidine Screen Ur Amphetamines Screen MDMA (Ecstasy) Screen Benzodiazepines Screen Cocaine Screen U Marijuana (THC) Screen Alcohol, Quantitative < 3 Blood Type Antibody Screen 05/02/19 05/02/19 05/02/19 08:25 08:25 13:20 WBC RBC Hgb Hct MCV MCH MCHC RDW Plt Count MPV Absolute Neuts (auto) Neutrophils % Lymphocytes % Monocytes % Eosinophils % Basophils % Nucleated RBC % PT with INR INR VBG pH POC VBG pCO2 POC VBG pO2 VBG HCO3 VBG O2 Sat (Aldo) VBG Base Excess Sodium Potassium Chloride Carbon Dioxide Anion Gap BUN Creatinine Est GFR (CKD-EPI)AfAm Est GFR (CKD-EPI)NonAf POC Glucometer Random Glucose Hemoglobin A1c % Serum Osmolality 303 Lactic Acid Calcium Phosphorus Magnesium Total Bilirubin AST ALT Alkaline Phosphatase Creatine Kinase 1675 H Creatine Kinase Index 0.3 CK-MB (CK-2) 5.8 H Troponin I 0.07 H Total Protein Albumin Lipase TSH Free T4 Urine Osmolality Ur Random Creatinine Ur Random Sodium Ur Random Potassium Ur Random Chloride Ur Random Urea Nitrogn Stool Occult Blood Opiates Screen Negative Methadone Screen Negative Barbiturate Screen Negative Phencyclidine Screen Negative Ur Amphetamines Screen Negative MDMA (Ecstasy) Screen Negative Benzodiazepines Screen Negative Cocaine Screen Negative U Marijuana (THC) Screen Negative Alcohol, Quantitative Blood Type Antibody Screen 05/02/19 05/02/19 05/02/19 13:20 13:20 13:20 WBC RBC Hgb Hct MCV MCH MCHC RDW Plt Count MPV Absolute Neuts (auto) Neutrophils % Lymphocytes % Monocytes % Eosinophils % Basophils % Nucleated RBC % PT with INR INR VBG pH POC VBG pCO2 POC VBG pO2 VBG HCO3 VBG O2 Sat (Aldo) VBG Base Excess Sodium Potassium Chloride Carbon Dioxide Anion Gap BUN Creatinine Est GFR (CKD-EPI)AfAm Est GFR (CKD-EPI)NonAf POC Glucometer Random Glucose Hemoglobin A1c % Serum Osmolality Lactic Acid Calcium Phosphorus Magnesium Total Bilirubin AST ALT Alkaline Phosphatase Creatine Kinase Creatine Kinase Index CK-MB (CK-2) Troponin I Total Protein Albumin Lipase TSH Free T4 Urine Osmolality 599 Ur Random Creatinine 199.0 H Ur Random Sodium 65 Ur Random Potassium 56.0 Ur Random Chloride 87 L Ur Random Urea Nitrogn Stool Occult Blood Opiates Screen Methadone Screen Barbiturate Screen Phencyclidine Screen Ur Amphetamines Screen MDMA (Ecstasy) Screen Benzodiazepines Screen Cocaine Screen U Marijuana (THC) Screen Alcohol, Quantitative Blood Type Antibody Screen 05/02/19 05/02/19 13:20 13:51 WBC RBC Hgb Hct MCV MCH MCHC RDW Plt Count MPV Absolute Neuts (auto) Neutrophils % Lymphocytes % Monocytes % Eosinophils % Basophils % Nucleated RBC % PT with INR INR VBG pH POC VBG pCO2 POC VBG pO2 VBG HCO3 VBG O2 Sat (Aldo) VBG Base Excess Sodium Potassium Chloride Carbon Dioxide Anion Gap BUN Creatinine Est GFR (CKD-EPI)AfAm Est GFR (CKD-EPI)NonAf POC Glucometer 348 Random Glucose Hemoglobin A1c % Serum Osmolality Lactic Acid Calcium Phosphorus Magnesium Total Bilirubin AST ALT Alkaline Phosphatase Creatine Kinase Creatine Kinase Index CK-MB (CK-2) Troponin I Total Protein Albumin Lipase TSH Free T4 Urine Osmolality Ur Random Creatinine Ur Random Sodium Ur Random Potassium Ur Random Chloride Ur Random Urea Nitrogn 643 Stool Occult Blood Opiates Screen Methadone Screen Barbiturate Screen Phencyclidine Screen Ur Amphetamines Screen MDMA (Ecstasy) Screen Benzodiazepines Screen Cocaine Screen U Marijuana (THC) Screen Alcohol, Quantitative Blood Type Antibody Screen Current Medications Generic Name Dose Route Start Last Admin Trade Name Freq PRN Reason Stop Dose Admin Chlorhexidine Gluconate 1 applic 05/02/19 22:00 Hibiclens For Decolonization - TP HS PAVEL Ceftriaxone Sodium 1 gm/ 50 mls @ 100 mls/hr 05/02/19 10:00 05/02/19 10:05 Dextrose IVPB 100 mls/hr DAILY PAVEL Administration Metronidazole 500 mg in 100 mls @ 100 mls/hr 05/02/19 10:00 05/02/19 11:41 Flagyl 500mg Premixed Ivpb - IVPB 100 mls/hr Q8H-IV PAVEL Administration Nicardipine HCl 25 mg/ 250 mls @ 25 mls/hr 05/02/19 10:15 05/02/19 10:41 Dextrose IVPB 2.5 mg/hr TITR PAVEL 25 mls/hr Administration Protocol 2.5 MG/HR Pantoprazole Sodium 80 mg/ 100 mls @ 10 mls/hr 05/02/19 14:45 Sodium Chloride IVPB Q10H PAVEL 8 MG/HR Insulin Aspart 1 vial 05/02/19 15:15 Novolog Vial Sliding Scale - SQ ACHS PAVEL Protocol Morphine Sulfate 2 mg 05/02/19 13:30 Morphine Sulfate IVPUSH Q4H PRN PAIN LEVEL 7 - 10 Mupirocin 1 applic 05/02/19 10:00 05/02/19 11:41 Bactroban Ointment (For Decolonization) - NS 05/07/19 09:59 1 applic BID PAVEL Administration Ondansetron HCl 4 mg 05/02/19 10:07 Zofran Injection IVPUSH Q6H PRN NAUSEA AND/OR VOMITING A/P: 58 M h/o UGIB s/p carafate in the past, uncontrolled HTN w/ urgency, T2DM with hyperglycemia, presents with UGIB and HTN urgency in ICU for further management. UGIB scheduled EGD supposed to be for 05/07, however patient may need earlier EGD Cont. PPI BID, IVF, morphine for pain control, NPO for now, trend CBC, hold AC ( SCD for now) GI evaluation: Dr Hernandez T2Dm Cont. monitoring F/S, supplement w/ ISS Add Basal insulin to titrate FS 140-180 Persistent nausea/vomiting, may be worsened by ?gastroparesis, awaiting GI evaluation, A1c 8% HTN improved with IV labetolol titrate to decrease BP by 25% Add PO BP meds once able to tolerate PO DVT ppx: SCD for now GI ppx: PPI BID Management as per ICU team Visit type - Emergency Visit Emergency Visit: Yes ED Registration Date: 05/02/19 Care time: The patient presented to the Emergency Department on the above date and was hospitalized for further evaluation of their emergent condition. - New Patient This patient is new to me today: No - Critical Care Critical Care patient: No
[2019-05-02] MEDS: INSULIN SLIDING SCALE (NOVOLOG) 1 VIAL SQ SCH ×3 (15:22→21:58)
[2019-05-02] MEDS ORDERED: NIFEdipine 10 MG CAPSULE (FP) PO SCH (15:30)
[2019-05-02] MEDS ORDERED: PT OWN MED DRAWER 7, Y5N ONE (16:02)
[2019-05-02] MEDS ORDERED: INSULIN SLIDING SCALE (NOVOLOG) 1 VIAL SQ SCH ×3 (16:30)
[2019-05-02] MEDS: PANTOPRAZOLE SODIUM 80 MG in SODIUM CHLORIDE 100 ML IVPB SCH (16:44)
[2019-05-02] MEDS: MORPHINE SULFATE 2 MG/ML VIAL IVPUSH PRN ×2 (17:36→23:50)
--- NOTE | 2019-05-02 17:41 | PN ---
Teaching Attending Note Name of Resident: Cesilia Izaguirre (Nephrology) ATTENDING PHYSICIAN STATEMENT I saw and evaluated the patient. I reviewed the resident's note and discussed the case with the resident. I agree with the resident's findings and plan as documented. Renal Pt is a 58 year old male with pmhx of DM, HTN, BPH, and anemia who presented to the ER with nausea and vomiting. He was found to be hypertensive and in renal failure. He denies chest pain. He had a teran placed for obstruction. He has history of htn for the last 5 years. He stopped taking his meds as he was vomiting. pmhx htn dm anemia bph nkda fam hx denies social hx denies smoking ros nausea Current Medications Generic Name Dose Route Start Last Admin Trade Name Freq PRN Reason Stop Dose Admin Chlorhexidine Gluconate 1 applic 05/02/19 22:00 Hibiclens For Decolonization - TP HS PAVEL Ceftriaxone Sodium 1 gm/ 50 mls @ 100 mls/hr 05/02/19 10:00 05/02/19 10:05 Dextrose IVPB 100 mls/hr DAILY PAVEL Administration Metronidazole 500 mg in 100 mls @ 100 mls/hr 05/02/19 10:00 05/02/19 17:38 Flagyl 500mg Premixed Ivpb - IVPB 100 mls/hr Q8H-IV PAVEL Administration Nicardipine HCl 25 mg/ 250 mls @ 25 mls/hr 05/02/19 10:15 05/02/19 10:41 Dextrose IVPB 2.5 mg/hr TITR PAVEL 25 mls/hr Administration Protocol 2.5 MG/HR Pantoprazole Sodium 80 mg/ 100 mls @ 10 mls/hr 05/02/19 14:45 05/02/19 16:44 Sodium Chloride IVPB 10 mls/hr Q10H PAVEL Administration 8 MG/HR Insulin Aspart 1 vial 05/02/19 15:15 05/02/19 17:32 Novolog Vial Sliding Scale - SQ 6 units ACHS PAVEL Administration Protocol Morphine Sulfate 2 mg 05/02/19 13:30 05/02/19 17:36 Morphine Sulfate IVPUSH 2 mg Q4H PRN Administration PAIN LEVEL 7 - 10 Mupirocin 1 applic 05/02/19 10:00 05/02/19 11:41 Bactroban Ointment (For Decolonization) - NS 05/07/19 09:59 1 applic BID PAVEL Administration Nifedipine 30 mg 05/03/19 10:00 Procardia Xl - PO DAILY PAVEL Ondansetron HCl 4 mg 05/02/19 10:07 Zofran Injection IVPUSH Q6H PRN NAUSEA AND/OR VOMITING Laboratory Tests 05/02/19 05/02/19 05/02/19 03:20 08:25 08:25 Sodium 146 H Potassium 3.8 BUN 26.0 H Creatinine 2.0 H Random Glucose 337 H Lactic Acid 3.2 H* 3.0 H* cardio s1s2 pulm clear GI soft ext neg edema skin neg rash neuro awake and alert Impression 1. VAISHNAVI 2. HTN 3. DM 4. anemia 5. bph Plan - monitor renal function - bp is improving - 1/2 ns if bp allows - monitor in ICU - check ua and lytes - check renal ultrasound - monitor teran output - obtain outpt records - GI input appreciated Problem List - Problems (1) VAISHNAVI (acute kidney injury) Code(s): N17.9 - ACUTE KIDNEY FAILURE, UNSPECIFIED (2) Abdominal pain Code(s): R10.9 - UNSPECIFIED ABDOMINAL PAIN (3) Hypertensive emergency Code(s): I16.1 - HYPERTENSIVE EMERGENCY
[2019-05-02] MEDS ORDERED: SODIUM CHLORIDE 0.45% 1,000 ML IV SCH (17:45)
[2019-05-02 19:39] LABS: HEMATOCRIT 34.3 % (35.4-49); HEMOGLOBIN 11.1 GM/dL (11.7-16.9); MCH 29.5 pg (25.7-33.7); MCHC 32.2 g/dl (32.0-35.9); MEAN CELL VOLUME 91.5 fl (80-96); MEAN PLT VOLUME 9.4 fl (7.5-11.1); PLATELET COUNT 272 K/MM3 (134-434); RBC 3.75 M/mm3 (4.00-5.60); RDW 14.4 % (11.9-15.9); WHITE BLOOD COUNT 19.3 K/mm3 (4.0-10.0)
[2019-05-02 21:29] LABS: EPI CELLS 2.7 /HPF (0-5/HPF); HYALINE CASTS 16 /lpf (0-8); URINE APPEARANCE CLEAR; URINE BACTERIA 1.9 /hpf (NEGATIVE); URINE BILIRUBIN NEGATIVE (NEGATIVE); URINE COLOR YELLOW; URINE GLUCOSE (UA) 3+ (NEGATIVE); URINE KETONE NEGATIVE (NEGATIVE); URINE LEUK ESTERASE NEGATIVE (NEGATIVE); URINE NITRITE NEGATIVE (NEGATIVE); URINE PROTEIN 4+ (NEGATIVE); URINE RBC 6 /hpf (0-4); URINE UROBILINOGEN 0.2 mg/dL (0.2-1.0); URINE WBC 2 /hpf (0-5)
[2019-05-02] MEDS: CHLORHEXIDINE GLUCONATE 4% CLEANSER FOR DECOLONIZATION TP SCH (21:51)
[2019-05-03] MEDS: PANTOPRAZOLE SODIUM 80 MG in SODIUM CHLORIDE 100 ML IVPB SCH ×2 (00:02→12:17)
[2019-05-03] MEDS: INSULIN SLIDING SCALE (NOVOLOG) 1 VIAL SQ SCH ×4 (06:35→22:06)
[2019-05-03 06:39] LABS: BASO % 0.2 % (0-2.0); HEMATOCRIT 34.1 % (35.4-49); HEMOGLOBIN 11.2 GM/dL (11.7-16.9); LYMPH % 9.1 % (8-40); MCH 29.5 pg (25.7-33.7); MEAN CELL VOLUME 89.5 fl (80-96); MEAN PLT VOLUME 9.3 fl (7.5-11.1); MONO % 5.7 % (3.8-10.2); PLATELET COUNT 271 K/MM3 (134-434); RBC 3.81 M/mm3 (4.00-5.60); RDW 14.2 % (11.9-15.9); WHITE BLOOD COUNT 19.6 K/mm3 (4.0-10.0)
[2019-05-03] MEDS ORDERED: niCARdipine HCL 25 MG/10 ML AMPUL IVPB ONE ×2 (06:53→06:55)
[2019-05-03 07:18] LABS: ALBUMIN 2.4 g/dl (3.4-5.0); BILIRUBIN,TOTAL 0.2 mg/dL (0.2-1); BLOOD UREA NITROGEN 30.1 mg/dL (7-18); CALCIUM 8.3 mg/dL (8.5-10.1); PHOSPHOROUS 3.8 mg/dL (2.5-4.9); POTASSIUM 3.6 mmol/L (3.5-5.1); TOT PROT 5.1 g/dl (6.4-8.2)
[2019-05-03] MEDS ORDERED: cefTRIAXone SODIUM 1 GM VIAL ONE (09:07)
[2019-05-03] MEDS ORDERED: SODIUM CHLORIDE 0.45% 1,000 ML IV SCH ×4 (09:07→16:03)
[2019-05-03] MEDS ORDERED: DEXTROSE 5%-WATER - 50 ML IVPB ONE (09:07)
[2019-05-03] MEDS: NIFEdipine E.R. 30 MG TABLET (FP) PO SCH (09:40)
[2019-05-03] MEDS: CEFTRIAXONE 1 GM in DEXTROSE 5%-WATER - 50 ML IVPB SCH (09:40)
[2019-05-03] MEDS: MUPIROCIN 2% TOPICAL OINTMENT FOR DECOLONIZATION NS SCH ×2 (09:40→22:05)
[2019-05-03] MEDS ORDERED: NIFEdipine E.R. 30 MG TABLET (FP) PO SCH (10:00)
--- NOTE | 2019-05-03 10:31 | PN ---
Teaching Attending Note Name of Resident: Shefali Ochoa ATTENDING PHYSICIAN STATEMENT I saw and evaluated the patient. I reviewed the resident's note and discussed the case with the resident. I agree with the resident's findings and plan as documented. SUBJECTIVE: Patient seen and examined in the ICU. Awake and alert. Still with nausea and vomiting of some bilious material. Still with abdominal pain No CP or SOB. Cardene restarted. Intake & Output 04/30/19 05/01/19 05/02/19 05/03/19 23:59 23:59 23:59 23:59 Intake Total 1020 Output Total 2600 500 Balance -2600 520 Weight 220 lb 202 lb 13.204 oz 202 lb 13.204 oz Last Vital Signs Temp Pulse Resp BP Pulse Ox 98.2 F 96 H 18 172/92 H 100 05/03/19 06:00 05/03/19 08:00 05/03/19 08:00 05/03/19 08:00 05/02/19 20:45 Active Medications Chlorhexidine Gluconate (Hibiclens For Decolonization -) 1 applic TP HS PAVEL Last Admin: 05/02/19 21:51 Dose: 1 applic Ceftriaxone Sodium 1 gm/ (Dextrose) 50 mls @ 100 mls/hr IVPB DAILY [facility]AVEL Last Admin: 05/03/19 09:40 Dose: 100 mls/hr Metronidazole (Flagyl 500mg Premixed Ivpb -) 500 mg in 100 mls @ 100 mls/hr IVPB Q8H-IV PAVEL Last Admin: 05/03/19 09:40 Dose: 100 mls/hr Nicardipine HCl 25 mg/ (Dextrose) 250 mls @ 25 mls/hr IVPB TITR PAVEL; Protocol Last Admin: 05/02/19 10:41 Dose: 2.5 mg/hr, 25 mls/hr Pantoprazole Sodium 80 mg/ (Sodium Chloride) 100 mls @ 10 mls/hr IVPB Q10H [facility]AVEL Last Admin: 05/03/19 00:02 Dose: 10 mls/hr Sodium Chloride (1/2 Normal Saline) 1,000 mls @ 65 mls/hr IV ASDIR PAVEL Stop: 05/03/19 17:41 Last Admin: 05/03/19 09:40 Dose: 65 mls/hr Insulin Aspart (Novolog Vial Sliding Scale -) 1 vial SQ ACHS PAVEL; Protocol Last Admin: 05/03/19 06:35 Dose: 4 units Insulin Detemir (Levemir Vial) 10 units SQ AM [facility] Morphine Sulfate (Morphine Sulfate) 2 mg IVPUSH Q4H PRN PRN Reason: PAIN LEVEL 7 - 10 Last Admin: 05/02/19 23:50 Dose: 2 mg Mupirocin (Bactroban Ointment (For Decolonization) -) 1 applic NS BID [facility] Stop: 05/07/19 09:59 Last Admin: 05/03/19 09:40 Dose: 1 applic Nifedipine (Procardia Xl -) 60 mg PO DAILY [facility] Last Admin: 05/03/19 09:40 Dose: 60 mg Ondansetron HCl (Zofran Injection) 4 mg IVPUSH Q6H PRN PRN Reason: NAUSEA AND/OR VOMITING GENERAL: Awake, alert, and fully oriented, uncomfortable HEAD: Normal with no signs of trauma. EYES: PERRLA, EOMI, sclera anicteric, conjunctiva clear. EARS, NOSE, THROAT: Moist mucous membranes. NECK: Normal range of motion, supple without lymphadenopathy, JVD, or masses. LUNGS: Breath sounds equal, clear to auscultation bilaterally. HEART: Regular rate and rhythm, normal S1 and S2 without murmur, rub or gallop. ABDOMEN: Soft, RLQ/LLQ tenderness, not distended, normoactive bowel sounds. MUSCULOSKELETAL: Normal range of motion at all joints. No CVA tenderness. UPPER EXTREMITIES: 2+ pulses, warm, well-perfused. LOWER EXTREMITIES: 2+ pulses, warm, well-perfused. No peripheral edema. NEUROLOGICAL: Cranial nerves II-XII intact. Normal speech. Laboratory Results - last 24 hr 05/01/19 05/02/19 05/02/19 22:17 08:25 08:25 WBC RBC Hgb Hct MCV MCH MCHC RDW Plt Count MPV Absolute Neuts (auto) Neutrophils % Lymphocytes % Monocytes % Eosinophils % Basophils % Nucleated RBC % Sodium Potassium Chloride Carbon Dioxide Anion Gap BUN Creatinine Est GFR (CKD-EPI)AfAm Est GFR (CKD-EPI)NonAf POC Glucometer Random Glucose Serum Osmolality 303 Calcium Phosphorus Magnesium Total Bilirubin AST ALT Alkaline Phosphatase Creatine Kinase Index 0.3 CK-MB (CK-2) 5.8 H Troponin I Total Protein Albumin Free T3 2.1 Urine Color Urine Appearance Urine pH Ur Specific [place] Urine Protein Urine Glucose (UA) Urine Ketones Urine Blood Urine Nitrite Urine Bilirubin Urine Urobilinogen Ur Leukocyte Esterase Urine WBC (Auto) Urine RBC (Auto) Urine Casts (Auto) U Epithel Cells (Auto) Urine Bacteria (Auto) Urine Osmolality Ur Random Creatinine Ur Random Sodium Ur Random Potassium Ur Random Chloride Ur Random Urea Nitrogn Opiates Screen Methadone Screen Barbiturate Screen Phencyclidine Screen Ur Amphetamines Screen MDMA (Ecstasy) Screen Benzodiazepines Screen Cocaine Screen U Marijuana (THC) Screen Blood Type 05/02/19 05/02/19 05/02/19 13:20 13:20 13:20 WBC RBC Hgb Hct MCV MCH MCHC RDW Plt Count MPV Absolute Neuts (auto) Neutrophils % Lymphocytes % Monocytes % Eosinophils % Basophils % Nucleated RBC % Sodium Potassium Chloride Carbon Dioxide Anion Gap BUN Creatinine Est GFR (CKD-EPI)AfAm Est GFR (CKD-EPI)NonAf POC Glucometer Random Glucose Serum Osmolality Calcium Phosphorus Magnesium Total Bilirubin AST ALT Alkaline Phosphatase Creatine Kinase Index CK-MB (CK-2) Troponin I Total Protein Albumin Free T3 Urine Color Urine Appearance Urine pH Ur Specific [place] Urine Protein Urine Glucose (UA) Urine Ketones Urine Blood Urine Nitrite Urine Bilirubin Urine Urobilinogen Ur Leukocyte Esterase Urine WBC (Auto) Urine RBC (Auto) Urine Casts (Auto) U Epithel Cells (Auto) Urine Bacteria (Auto) Urine Osmolality 599 Ur Random Creatinine Ur Random Sodium 65 Ur Random Potassium 56.0 Ur Random Chloride 87 L Ur Random Urea Nitrogn Opiates Screen Negative Methadone Screen Negative Barbiturate Screen Negative Phencyclidine Screen Negative Ur Amphetamines Screen Negative MDMA (Ecstasy) Screen Negative Benzodiazepines Screen Negative Cocaine Screen Negative U Marijuana (THC) Screen Negative Blood Type 05/02/19 05/02/19 05/02/19 13:20 13:20 13:51 WBC RBC Hgb Hct MCV MCH MCHC RDW Plt Count MPV Absolute Neuts (auto) Neutrophils % Lymphocytes % Monocytes % Eosinophils % Basophils % Nucleated RBC % Sodium Potassium Chloride Carbon Dioxide Anion Gap BUN Creatinine Est GFR (CKD-EPI)AfAm Est GFR (CKD-EPI)NonAf POC Glucometer 348 Random Glucose Serum Osmolality Calcium Phosphorus Magnesium Total Bilirubin AST ALT Alkaline Phosphatase Creatine Kinase Index CK-MB (CK-2) Troponin I Total Protein Albumin Free T3 Urine Color Urine Appearance Urine pH Ur Specific [place] Urine Protein Urine Glucose (UA) Urine Ketones Urine Blood Urine Nitrite Urine Bilirubin Urine Urobilinogen Ur Leukocyte Esterase Urine WBC (Auto) Urine RBC (Auto) Urine Casts (Auto) U Epithel Cells (Auto) Urine Bacteria (Auto) Urine Osmolality Ur Random Creatinine 199.0 H Ur Random Sodium Ur Random Potassium Ur Random Chloride Ur Random Urea Nitrogn 643 Opiates Screen Methadone Screen Barbiturate Screen Phencyclidine Screen Ur Amphetamines Screen MDMA (Ecstasy) Screen Benzodiazepines Screen Cocaine Screen U Marijuana (THC) Screen Blood Type 05/02/19 05/02/19 05/02/19 16:50 18:00 20:00 WBC 19.3 H RBC 3.75 L Hgb 11.1 L Hct 34.3 L MCV 91.5 MCH 29.5 MCHC 32.2 RDW 14.4 Plt Count 272 MPV 9.4 Absolute Neuts (auto) Neutrophils % Lymphocytes % Monocytes % Eosinophils % Basophils % Nucleated RBC % Sodium Potassium Chloride Carbon Dioxide Anion Gap BUN Creatinine Est GFR (CKD-EPI)AfAm Est GFR (CKD-EPI)NonAf POC Glucometer 253 Random Glucose Serum Osmolality Calcium Phosphorus Magnesium Total Bilirubin AST ALT Alkaline Phosphatase Creatine Kinase Index CK-MB (CK-2) Troponin I Total Protein Albumin Free T3 Urine Color Yellow Urine Appearance Clear Urine pH 6.0 Ur Specific [place] 1.031 Urine Protein 4+ H Urine Glucose (UA) 3+ H Urine Ketones Negative Urine Blood 2+ H Urine Nitrite Negative Urine Bilirubin Negative Urine Urobilinogen 0.2 Ur Leukocyte Esterase Negative Urine WBC (Auto) 2 Urine RBC (Auto) 6 Urine Casts (Auto) 16 U Epithel Cells (Auto) 2.7 Urine Bacteria (Auto) 1.9 Urine Osmolality Ur Random Creatinine Ur Random Sodium Ur Random Potassium Ur Random Chloride Ur Random Urea Nitrogn Opiates Screen Methadone Screen Barbiturate Screen Phencyclidine Screen Ur Amphetamines Screen MDMA (Ecstasy) Screen Benzodiazepines Screen Cocaine Screen U Marijuana (THC) Screen Blood Type 05/02/19 05/03/19 05/03/19 21:53 06:00 06:00 WBC 19.6 H RBC 3.81 L Hgb 11.2 L Hct 34.1 L MCV 89.5 MCH 29.5 MCHC 33.0 RDW 14.2 Plt Count 271 MPV 9.3 Absolute Neuts (auto) 16.7 H Neutrophils % 85.0 H Lymphocytes % 9.1 Monocytes % 5.7 Eosinophils % 0.0 Basophils % 0.2 Nucleated RBC % 0 Sodium Potassium Chloride Carbon Dioxide Anion Gap BUN Creatinine Est GFR (CKD-EPI)AfAm Est GFR (CKD-EPI)NonAf POC Glucometer 168 Random Glucose Serum Osmolality Calcium Phosphorus Magnesium Total Bilirubin AST ALT Alkaline Phosphatase Creatine Kinase Index CK-MB (CK-2) Troponin I Total Protein Albumin Free T3 Urine Color Urine Appearance Urine pH Ur Specific [place] Urine Protein Urine Glucose (UA) Urine Ketones Urine Blood Urine Nitrite Urine Bilirubin Urine Urobilinogen Ur Leukocyte Esterase Urine WBC (Auto) Urine RBC (Auto) Urine Casts (Auto) U Epithel Cells (Auto) Urine Bacteria (Auto) Urine Osmolality Ur Random Creatinine Ur Random Sodium Ur Random Potassium Ur Random Chloride Ur Random Urea Nitrogn Opiates Screen Methadone Screen Barbiturate Screen Phencyclidine Screen Ur Amphetamines Screen MDMA (Ecstasy) Screen Benzodiazepines Screen Cocaine Screen U Marijuana (THC) Screen Blood Type O POSITIVE 05/03/19 05/03/19 06:00 06:09 WBC RBC Hgb Hct MCV MCH MCHC RDW Plt Count MPV Absolute Neuts (auto) Neutrophils % Lymphocytes % Monocytes % Eosinophils % Basophils % Nucleated RBC % Sodium 146 H Potassium 3.6 Chloride 111 H Carbon Dioxide 29 Anion Gap 6 L BUN 30.1 H Creatinine 2.0 H Est GFR (CKD-EPI)AfAm 41.99 Est GFR (CKD-EPI)NonAf 36.23 POC Glucometer 208 Random Glucose 236 H Serum Osmolality Calcium 8.3 L Phosphorus 3.8 Magnesium 2.0 Total Bilirubin 0.2 AST 47 H ALT 28 Alkaline Phosphatase 87 Creatine Kinase Index CK-MB (CK-2) Troponin I 0.10 H Total Protein 5.1 L Albumin 2.4 L Free T3 Urine Color Urine Appearance Urine pH Ur Specific [place] Urine Protein Urine Glucose (UA) Urine Ketones Urine Blood Urine Nitrite Urine Bilirubin Urine Urobilinogen Ur Leukocyte Esterase Urine WBC (Auto) Urine RBC (Auto) Urine Casts (Auto) U Epithel Cells (Auto) Urine Bacteria (Auto) Urine Osmolality Ur Random Creatinine Ur Random Sodium Ur Random Potassium Ur Random Chloride Ur Random Urea Nitrogn Opiates Screen Methadone Screen Barbiturate Screen Phencyclidine Screen Ur Amphetamines Screen MDMA (Ecstasy) Screen Benzodiazepines Screen Cocaine Screen U Marijuana (THC) Screen Blood Type ASSESSMENT/PLAN: Hypertensive Urgency DM HTN Anemia BPH VAISHNAVI Abdominal pain: Etiology to be further delineated Medication non-compliance Cardene drip Surgical evaluation is pending O2 as needed VTE prophylaxis IV Hydration Requires ICU monitoring for Tony Jason Critical care time spent in reviewing chart, evaluating patient and formulating plan - 36 minutes.
[2019-05-03] MEDS ORDERED: PT OWN MED DRAWER 7, Y5N ONE (12:07)
[2019-05-03] MEDS: ONDANSETRON 4 MG/2 ML VIAL IVPUSH PRN ×2 (12:37→22:03)
--- NOTE | 2019-05-03 13:36 | PN ---
Physical Exam: SUBJECTIVE: Patient seen and examined in the morning. No acute events overnight , no acute events on cardiac monitoring. Patient complains of abdominal pain, bilious vomiting. No chest pain or shortness of breath. OBJECTIVE: Vital Signs Period Temp Pulse Resp BP Sys/Aceves Pulse Ox Last 24 Hr 97.4 F-98.9 F 90-99 14-18 140-175/68-108 100-100 GENERAL: Awake, alert, and fully oriented, in no acute distress. HEAD: Normal with no signs of trauma. EYES: Pupils equal, round and reactive to light, extraocular movements intact, sclera anicteric, conjunctiva clear. No lid lag. NECK: Normal range of motion, supple without lymphadenopathy, JVD, or masses. LUNGS: Breath sounds equal, clear to auscultation bilaterally. No wheezes, and no crackles. No accessory muscle use. HEART: Tachycardia with normal S1 and S2 without murmur, rub or gallop. ABDOMEN: Soft, tender to palpation in epigastrium. No rebound, no masses. No distension. . MUSCULOSKELETAL: Normal range of motion at all joints. No bony deformities or tenderness. No CVA tenderness. EXTREMITIES: 2+ pulses, warm, well-perfused. No calf tenderness. No peripheral edema. NEUROLOGICAL: Cranial nerves II-XII intact. Normal speech. Normal gait. PSYCHIATRIC: Cooperative. Good eye contact. Appropriate mood and affect. Laboratory Results - last 24 hr 05/01/19 05/02/19 05/02/19 22:17 08:25 13:20 WBC RBC Hgb Hct MCV MCH MCHC RDW Plt Count MPV Absolute Neuts (auto) Neutrophils % Lymphocytes % Monocytes % Eosinophils % Basophils % Nucleated RBC % Sodium Potassium Chloride Carbon Dioxide Anion Gap BUN Creatinine Est GFR (CKD-EPI)AfAm Est GFR (CKD-EPI)NonAf POC Glucometer Random Glucose Serum Osmolality 303 Calcium Phosphorus Magnesium Total Bilirubin AST ALT Alkaline Phosphatase Creatine Kinase Creatine Kinase Index CK-MB (CK-2) Troponin I Total Protein Albumin Free T3 2.1 Urine Color Urine Appearance Urine pH Ur Specific [place] Urine Protein Urine Glucose (UA) Urine Ketones Urine Blood Urine Nitrite Urine Bilirubin Urine Urobilinogen Ur Leukocyte Esterase Urine WBC (Auto) Urine RBC (Auto) Urine Casts (Auto) U Epithel Cells (Auto) Urine Bacteria (Auto) Urine Osmolality Ur Random Creatinine Ur Random Sodium Ur Random Potassium Ur Random Chloride Ur Random Urea Nitrogn Opiates Screen Negative Methadone Screen Negative Barbiturate Screen Negative Phencyclidine Screen Negative Ur Amphetamines Screen Negative MDMA (Ecstasy) Screen Negative Benzodiazepines Screen Negative Cocaine Screen Negative U Marijuana (THC) Screen Negative Blood Type 05/02/19 05/02/19 05/02/19 13:20 13:20 13:20 WBC RBC Hgb Hct MCV MCH MCHC RDW Plt Count MPV Absolute Neuts (auto) Neutrophils % Lymphocytes % Monocytes % Eosinophils % Basophils % Nucleated RBC % Sodium Potassium Chloride Carbon Dioxide Anion Gap BUN Creatinine Est GFR (CKD-EPI)AfAm Est GFR (CKD-EPI)NonAf POC Glucometer Random Glucose Serum Osmolality Calcium Phosphorus Magnesium Total Bilirubin AST ALT Alkaline Phosphatase Creatine Kinase Creatine Kinase Index CK-MB (CK-2) Troponin I Total Protein Albumin Free T3 Urine Color Urine Appearance Urine pH Ur Specific [place] Urine Protein Urine Glucose (UA) Urine Ketones Urine Blood Urine Nitrite Urine Bilirubin Urine Urobilinogen Ur Leukocyte Esterase Urine WBC (Auto) Urine RBC (Auto) Urine Casts (Auto) U Epithel Cells (Auto) Urine Bacteria (Auto) Urine Osmolality 599 Ur Random Creatinine 199.0 H Ur Random Sodium 65 Ur Random Potassium 56.0 Ur Random Chloride 87 L Ur Random Urea Nitrogn Opiates Screen Methadone Screen Barbiturate Screen Phencyclidine Screen Ur Amphetamines Screen MDMA (Ecstasy) Screen Benzodiazepines Screen Cocaine Screen U Marijuana (THC) Screen Blood Type 05/02/19 05/02/19 05/02/19 13:20 13:51 16:50 WBC RBC Hgb Hct MCV MCH MCHC RDW Plt Count MPV Absolute Neuts (auto) Neutrophils % Lymphocytes % Monocytes % Eosinophils % Basophils % Nucleated RBC % Sodium Potassium Chloride Carbon Dioxide Anion Gap BUN Creatinine Est GFR (CKD-EPI)AfAm Est GFR (CKD-EPI)NonAf POC Glucometer 348 253 Random Glucose Serum Osmolality Calcium Phosphorus Magnesium Total Bilirubin AST ALT Alkaline Phosphatase Creatine Kinase Creatine Kinase Index CK-MB (CK-2) Troponin I Total Protein Albumin Free T3 Urine Color Urine Appearance Urine pH Ur Specific [place] Urine Protein Urine Glucose (UA) Urine Ketones Urine Blood Urine Nitrite Urine Bilirubin Urine Urobilinogen Ur Leukocyte Esterase Urine WBC (Auto) Urine RBC (Auto) Urine Casts (Auto) U Epithel Cells (Auto) Urine Bacteria (Auto) Urine Osmolality Ur Random Creatinine Ur Random Sodium Ur Random Potassium Ur Random Chloride Ur Random Urea Nitrogn 643 Opiates Screen Methadone Screen Barbiturate Screen Phencyclidine Screen Ur Amphetamines Screen MDMA (Ecstasy) Screen Benzodiazepines Screen Cocaine Screen U Marijuana (THC) Screen Blood Type 05/02/19 05/02/19 05/02/19 18:00 20:00 21:53 WBC 19.3 H RBC 3.75 L Hgb 11.1 L Hct 34.3 L MCV 91.5 MCH 29.5 MCHC 32.2 RDW 14.4 Plt Count 272 MPV 9.4 Absolute Neuts (auto) Neutrophils % Lymphocytes % Monocytes % Eosinophils % Basophils % Nucleated RBC % Sodium Potassium Chloride Carbon Dioxide Anion Gap BUN Creatinine Est GFR (CKD-EPI)AfAm Est GFR (CKD-EPI)NonAf POC Glucometer 168 Random Glucose Serum Osmolality Calcium Phosphorus Magnesium Total Bilirubin AST ALT Alkaline Phosphatase Creatine Kinase Creatine Kinase Index CK-MB (CK-2) Troponin I Total Protein Albumin Free T3 Urine Color Yellow Urine Appearance Clear Urine pH 6.0 Ur Specific [place] 1.031 Urine Protein 4+ H Urine Glucose (UA) 3+ H Urine Ketones Negative Urine Blood 2+ H Urine Nitrite Negative Urine Bilirubin Negative Urine Urobilinogen 0.2 Ur Leukocyte Esterase Negative Urine WBC (Auto) 2 Urine RBC (Auto) 6 Urine Casts (Auto) 16 U Epithel Cells (Auto) 2.7 Urine Bacteria (Auto) 1.9 Urine Osmolality Ur Random Creatinine Ur Random Sodium Ur Random Potassium Ur Random Chloride Ur Random Urea Nitrogn Opiates Screen Methadone Screen Barbiturate Screen Phencyclidine Screen Ur Amphetamines Screen MDMA (Ecstasy) Screen Benzodiazepines Screen Cocaine Screen U Marijuana (THC) Screen Blood Type 05/03/19 05/03/19 05/03/19 06:00 06:00 06:00 WBC 19.6 H RBC 3.81 L Hgb 11.2 L Hct 34.1 L MCV 89.5 MCH 29.5 MCHC 33.0 RDW 14.2 Plt Count 271 MPV 9.3 Absolute Neuts (auto) 16.7 H Neutrophils % 85.0 H Lymphocytes % 9.1 Monocytes % 5.7 Eosinophils % 0.0 Basophils % 0.2 Nucleated RBC % 0 Sodium 146 H Potassium 3.6 Chloride 111 H Carbon Dioxide 29 Anion Gap 6 L BUN 30.1 H Creatinine 2.0 H Est GFR (CKD-EPI)AfAm 41.99 Est GFR (CKD-EPI)NonAf 36.23 POC Glucometer Random Glucose 236 H Serum Osmolality Calcium 8.3 L Phosphorus 3.8 Magnesium 2.0 Total Bilirubin 0.2 AST 47 H ALT 28 Alkaline Phosphatase 87 Creatine Kinase 2138 H Creatine Kinase Index 0.2 CK-MB (CK-2) 5.9 H Troponin I 0.10 H Total Protein 5.1 L Albumin 2.4 L Free T3 Urine Color Urine Appearance Urine pH Ur Specific [place] Urine Protein Urine Glucose (UA) Urine Ketones Urine Blood Urine Nitrite Urine Bilirubin Urine Urobilinogen Ur Leukocyte Esterase Urine WBC (Auto) Urine RBC (Auto) Urine Casts (Auto) U Epithel Cells (Auto) Urine Bacteria (Auto) Urine Osmolality Ur Random Creatinine Ur Random Sodium Ur Random Potassium Ur Random Chloride Ur Random Urea Nitrogn Opiates Screen Methadone Screen Barbiturate Screen Phencyclidine Screen Ur Amphetamines Screen MDMA (Ecstasy) Screen Benzodiazepines Screen Cocaine Screen U Marijuana (THC) Screen Blood Type O POSITIVE 05/03/19 05/03/19 06:09 11:33 WBC RBC Hgb Hct MCV MCH MCHC RDW Plt Count MPV Absolute Neuts (auto) Neutrophils % Lymphocytes % Monocytes % Eosinophils % Basophils % Nucleated RBC % Sodium Potassium Chloride Carbon Dioxide Anion Gap BUN Creatinine Est GFR (CKD-EPI)AfAm Est GFR (CKD-EPI)NonAf POC Glucometer 208 243 Random Glucose Serum Osmolality Calcium Phosphorus Magnesium Total Bilirubin AST ALT Alkaline Phosphatase Creatine Kinase Creatine Kinase Index CK-MB (CK-2) Troponin I Total Protein Albumin Free T3 Urine Color Urine Appearance Urine pH Ur Specific [place] Urine Protein Urine Glucose (UA) Urine Ketones Urine Blood Urine Nitrite Urine Bilirubin Urine Urobilinogen Ur Leukocyte Esterase Urine WBC (Auto) Urine RBC (Auto) Urine Casts (Auto) U Epithel Cells (Auto) Urine Bacteria (Auto) Urine Osmolality Ur Random Creatinine Ur Random Sodium Ur Random Potassium Ur Random Chloride Ur Random Urea Nitrogn Opiates Screen Methadone Screen Barbiturate Screen Phencyclidine Screen Ur Amphetamines Screen MDMA (Ecstasy) Screen Benzodiazepines Screen Cocaine Screen U Marijuana (THC) Screen Blood Type Active Medications Generic Name Dose Route Start Last Admin Trade Name Freq PRN Reason Stop Dose Admin Chlorhexidine Gluconate 1 applic 05/02/19 22:00 05/02/19 21:51 Hibiclens For Decolonization - TP 1 applic HS PAVEL Administration Ceftriaxone Sodium 1 gm/ 50 mls @ 100 mls/hr 05/02/19 10:00 05/03/19 09:40 Dextrose IVPB 100 mls/hr DAILY PAVEL Administration Metronidazole 500 mg in 100 mls @ 100 mls/hr 05/02/19 10:00 05/03/19 09:40 Flagyl 500mg Premixed Ivpb - IVPB 100 mls/hr Q8H-IV PAVEL Administration Nicardipine HCl 25 mg/ 250 mls @ 25 mls/hr 05/02/19 10:15 05/02/19 10:41 Dextrose IVPB 2.5 mg/hr TITR PAVEL 25 mls/hr Administration Protocol 2.5 MG/HR Pantoprazole Sodium 80 mg/ 100 mls @ 10 mls/hr 05/02/19 14:45 05/03/19 12:17 Sodium Chloride IVPB 10 mls/hr Q10H PAVEL Administration 8 MG/HR Sodium Chloride 1,000 mls @ 65 mls/hr 05/03/19 09:07 05/03/19 09:40 1/2 Normal Saline IV 05/03/19 17:41 65 mls/hr ASDIR PAVEL Administration Insulin Aspart 1 vial 05/02/19 15:15 05/03/19 11:41 Novolog Vial Sliding Scale - SQ 4 units ACHS PAVEL Administration Protocol Insulin Detemir 10 units 05/04/19 07:00 Levemir Vial SQ AM [facility]EL Morphine Sulfate 2 mg 05/02/19 13:30 05/02/19 23:50 Morphine Sulfate IVPUSH 2 mg Q4H PRN Administration PAIN LEVEL 7 - 10 Mupirocin 1 applic 05/02/19 10:00 05/03/19 09:40 Bactroban Ointment (For Decolonization) - NS 05/07/19 09:59 1 applic BID PAVEL Administration Nifedipine 60 mg 05/03/19 10:00 05/03/19 09:40 Procardia Xl - PO 60 mg DAILY P[facility]EL Administration Ondansetron HCl 4 mg 05/02/19 10:07 05/03/19 12:37 Zofran Injection IVPUSH 4 mg Q6H PRN Administration NAUSEA AND/OR VOMITING ASSESSMENT/PLAN: 58M PMH DM, HTN, Anemia, BPH (s/p prostate procedure) who presents with nausea, vomiting, and lower abdominal pain. Patient was found to have hypertensive emergency. Patient continues to have abdominal pain and hypertension. Neuro: Head CT negative to for acute pathology Stable and continue to monitor Gabapentin 300 HS CV -Initial BP was 240/143. Was started on cardene drip. Was taken off of cardene drip but continued to have hypertensive urgency. -labetolol 20 and 10 given once in the ED within minimal improvement. -no prior EKG to compare to -Echo showed LVEF nomral, moderate concentric hypertrophy, RV normal, and trace TR. -troponin 0.10. -CK elevated 2138 -Nicardipine gtt Continued -Lisinopril 5, Atorvastatin 40, Procardia 60 mg Daily started. -EKG shows sinus tachy, QTC of 466, incomplete RBB, left anterior fasicular block -Patient notes that he has never had a stress test or prior cardiac hx. -Cardiology consulted Pulm: -Chest CT shows :There is a small to moderate sized focal and nonspecific area of subpleural reticulation at the periphery of the lower segment of right upper lobe and right middle lobe at the right minor fissure, likely reflecting the sequela of remote insults. In addition, there is minimal subsegmenta atelectasis the right lower lobe. The tracheobronchial tree is grossly patent. There is no airspace consolidation, pleural effusion or pneumothorax. -On RA satting 100% -Stable GI -Abdominal pain continues. Still has bilious emesis. -EGD done 1 year ago. Obtaining records from [facility]. Will need UES when HD stable. -Protonix drip 8mcg/hr -NPO -Continuing Ceftriaxone and flagyl -Abdominal u/s shows 7-8mm CBD and atrophy of the pancreatic body/tail -Abodminal CT shows mild hepatomegaly with diffuse fatty infiltration of liver. -Abdominal CT with contrast -Episode of hematemsis with FOBT negaive. 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 -TSH low, Free T4 normal. -Refer to endocrinology as outpatient for further workup of thyroid findings -Insulin Levemir 10 units HS ID -Possible biliary source -Will given empiric coverage with Ceftriaxone and flagyl -Lactate 2.1 to 3.2 -Leukocytosis with left shift -Urine culture pending F: 05/02 NS @ 65 E: Monitor CMP N: NPO DVT: Heparin 5000 unit SQ TID GI: Protonix Drip Dispo: Under ICU monitoring Visit type - Emergency Visit Emergency Visit: Yes ED Registration Date: 05/02/19 Care time: The patient presented to the Emergency Department on the above date and was hospitalized for further evaluation of their emergent condition. - New Patient This patient is new to me today: No - Critical Care Critical Care patient: Yes Total Critical Care Time (in minutes): 45 Critical Care Statement: The care of this patient involved high complexity decision making to prevent further life threatening deterioration of the patient 's condition and/or to evaluate & treat vital organ system(s) failure or risk of failure. ATTENDING PHYSICIAN STATEMENT I saw and evaluated the patient. I reviewed the resident's note and discussed the case with the resident. I agree with the resident's findings and plan as documented. SUBJECTIVE: OBJECTIVE: ASSESSMENT AND PLAN:
--- NOTE | 2019-05-03 13:49 | PN ---
Progress Note, Physician History of Present Illness: Pt seen and examined at bedside. he is still having nausea and vomiting. - Current Medication List Current Medications: Active Medications Chlorhexidine Gluconate (Hibiclens For Decolonization -) 1 applic TP HS [facility] Last Admin: 05/02/19 21:51 Dose: 1 applic Ceftriaxone Sodium 1 gm/ (Dextrose) 50 mls @ 100 mls/hr IVPB DAILY [facility] Last Admin: 05/03/19 09:40 Dose: 100 mls/hr Metronidazole (Flagyl 500mg Premixed Ivpb -) 500 mg in 100 mls @ 100 mls/hr IVPB Q8H-IV [facility]EL Last Admin: 05/03/19 09:40 Dose: 100 mls/hr Nicardipine HCl 25 mg/ (Dextrose) 250 mls @ 25 mls/hr IVPB TITR [facility]; Protocol Last Admin: 05/02/19 10:41 Dose: 2.5 mg/hr, 25 mls/hr Pantoprazole Sodium 80 mg/ (Sodium Chloride) 100 mls @ 10 mls/hr IVPB Q10H [facility] Last Admin: 05/03/19 12:17 Dose: 10 mls/hr Sodium Chloride (1/2 Normal Saline) 1,000 mls @ 65 mls/hr IV ASDIR [facility] Stop: 05/03/19 17:41 Last Admin: 05/03/19 09:40 Dose: 65 mls/hr Insulin Aspart (Novolog Vial Sliding Scale -) 1 vial SQ ACHS [facility]; Protocol Last Admin: 05/03/19 11:41 Dose: 4 units Insulin Detemir (Levemir Vial) 10 units SQ AM [facility] Morphine Sulfate (Morphine Sulfate) 2 mg IVPUSH Q4H PRN PRN Reason: PAIN LEVEL 7 - 10 Last Admin: 05/02/19 23:50 Dose: 2 mg Mupirocin (Bactroban Ointment (For Decolonization) -) 1 applic NS BID [facility] Stop: 05/07/19 09:59 Last Admin: 05/03/19 09:40 Dose: 1 applic Nifedipine (Procardia Xl -) 60 mg PO DAILY [facility] Last Admin: 05/03/19 09:40 Dose: 60 mg Ondansetron HCl (Zofran Injection) 4 mg IVPUSH Q6H PRN PRN Reason: NAUSEA AND/OR VOMITING Last Admin: 05/03/19 12:37 Dose: 4 mg - Objective Vital Signs: Vital Signs Temperature 97.4 F L 05/03/19 10:00 Pulse Rate 93 H 05/03/19 12:00 Respiratory Rate 14 05/03/19 12:00 Blood Pressure 140/83 05/03/19 12:00 O2 Sat by Pulse Oximetry (%) 100 05/02/19 20:45 Constitutional: Yes: Calm Eyes: Yes: Conjunctiva Clear HENT: Yes: Atraumatic Cardiovascular: Yes: S1, S2 Respiratory: Yes: CTA Bilaterally Gastrointestinal: Yes: Soft Genitourinary: Yes: WNL Musculoskeletal: Yes: WNL Edema: No Neurological: Yes: Oriented Psychiatric: Yes: Oriented Labs: CBC, BMP 05/03/19 06:00 05/03/19 06:00 INR, PTT INR 1.11 (0.83-1.09) H 05/02/19 08:25 Problem List - Problems (1) VAISHNAVI (acute kidney injury) Code(s): N17.9 - ACUTE KIDNEY FAILURE, UNSPECIFIED (2) Abdominal pain Code(s): R10.9 - UNSPECIFIED ABDOMINAL PAIN (3) Hypertensive emergency Code(s): I16.1 - HYPERTENSIVE EMERGENCY Assessment/Plan Current Medications Generic Name Dose Route Start Last Admin Trade Name Freq PRN Reason Stop Dose Admin Chlorhexidine Gluconate 1 applic 05/02/19 22:00 05/02/19 21:51 Hibiclens For Decolonization - TP 1 applic HS PAVEL Administration Ceftriaxone Sodium 1 gm/ 50 mls @ 100 mls/hr 05/02/19 10:00 05/03/19 09:40 Dextrose IVPB 100 mls/hr DAILY [facility] Administration Metronidazole 500 mg in 100 mls @ 100 mls/hr 05/02/19 10:00 05/03/19 09:40 Flagyl 500mg Premixed Ivpb - IVPB 100 mls/hr Q8H-IV [facility]EL Administration Nicardipine HCl 25 mg/ 250 mls @ 25 mls/hr 05/02/19 10:15 05/02/19 10:41 Dextrose IVPB 2.5 mg/hr TITR [facility]EL 25 mls/hr Administration Protocol 2.5 MG/HR Pantoprazole Sodium 80 mg/ 100 mls @ 10 mls/hr 05/02/19 14:45 05/03/19 12:17 Sodium Chloride IVPB 10 mls/hr Q10H [facility]EL Administration 8 MG/HR Sodium Chloride 1,000 mls @ 65 mls/hr 05/03/19 09:07 05/03/19 09:40 1/2 Normal Saline IV 05/03/19 17:41 65 mls/hr ASDIR PAVEL Administration Insulin Aspart 1 vial 05/02/19 15:15 05/03/19 11:41 Novolog Vial Sliding Scale - SQ 4 units ACHS [facility] Administration Protocol Insulin Detemir 10 units 05/04/19 07:00 Levemir Vial SQ AM [facility] Morphine Sulfate 2 mg 05/02/19 13:30 05/02/19 23:50 Morphine Sulfate IVPUSH 2 mg Q4H PRN Administration PAIN LEVEL 7 - 10 Mupirocin 1 applic 05/02/19 10:00 05/03/19 09:40 Bactroban Ointment (For Decolonization) - NS 05/07/19 09:59 1 applic BID PAVEL Administration Nifedipine 60 mg 05/03/19 10:00 05/03/19 09:40 Procardia Xl - PO 60 mg DAILY [facility]EL Administration Ondansetron HCl 4 mg 05/02/19 10:07 05/03/19 12:37 Zofran Injection IVPUSH 4 mg Q6H PRN Administration NAUSEA AND/OR VOMITING Laboratory Tests 06/26/15 05/03/19 20:16 06:00 Creatinine 1.5 H 2.0 H Impression 1. VAISHNAVI 2. HTN 3. DM 4. anemia 5. bph 6. CKD Plan - pt likely with ckd - taper bp meds - cardio eval - cont fluids - will need better glucose control - repeat labs in am
[2019-05-03] MEDS: MORPHINE SULFATE 2 MG/ML VIAL IVPUSH PRN ×3 (16:00→22:04)
--- NOTE | 2019-05-03 16:07 | PN ---
Progress Note (short form) - Note Progress Note: Patient was made aware that he may have ischemic bowel and needs CTA for diagnosis, which may affect his kidneys causing him to need dialysis. Pt is aware of the risk for renal failure, but in agreement to get the CTA. Will get extra fluid boluses. Pt D/W Dr Jason and Dr Sanabria. Dr García also aware
[2019-05-03] MEDS ORDERED: DEXTROSE 5%-0.45% SALINE 1,000 ML IV SCH (16:15)
[2019-05-03] MEDS ORDERED: SODIUM CHLORIDE 0.45% 500 ML IV SCH (16:15)
[2019-05-03 16:34] LABS: ARTERIAL BLD GAS O2 SATURATION 95.9 % (95-98); ARTERIAL BLOOD GAS BASE EXCESS 3.1 meq/l (-2-2); ARTERIAL BLOOD GAS PCO2 44.2 mmHg (35-45); ARTERIAL BLOOD GAS PO2 82.2 mmHg (80-100); ARTERIAL BLOOD GAS pH 7.41 (7.35-7.45)
[2019-05-03 16:36] LABS: ALLENS TEST POSITIVE
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
--- NOTE | 2019-05-03 17:04 | PN.GI ---
GI Progress Note Subjective: GI NOte ( covering for Dr Manuel): Writhing pain persists. Unable to lie still. Dry heaving. CPK rising. Renal function remains compromised. - Objective Vital Signs: Vital Signs Temperature 97.5 F L 05/03/19 14:00 Pulse Rate 93 H 05/03/19 14:00 Respiratory Rate 10 05/03/19 14:00 Blood Pressure 142/75 05/03/19 14:00 O2 Sat by Pulse Oximetry (%) 100 05/03/19 10:00 Constitutional: Anxious, Moderate Distress ...Auscultate: Yes: Hypoactive Bowel Sounds ...Palpate: Yes: Soft, Tenderness (diffuse tenderness worst in supraumbical region with guarding) Labs: CBC, BMP 05/03/19 06:00 05/03/19 06:00 INR, PTT INR 1.11 (0.83-1.09) H 05/02/19 08:25 Assessment/Plan Assessment: - I am concerned that the elevated CPK is emanating from ischemically compromised bowel, perhaps due to an embolic event. The troponin fraction implies this is not completely cardiac origin. I discussed the case with Dr Jason and we both informed the patient of the potential serious nature of his condition and the need for a CTA. We explained that he may suffer complete renal failure as a result and need dialysis. He agrees to proceeding with CTA. His ABG reveals that he is not yet acidotic Plan: --Stat CTA --Fluid bolus with 500cc - discussed with Dr García -- I discussed the case with Dr Berumen who will come in and surgically evaluate. He requests a vascular surgical consultation. I have communicated this to the covering resident, Dr Zina Guidry and reviewed the case with her. -- Continue antibiotics and fluid resuscitation Dr. Gonzales will be covering this weekend. Dr. Manuel will return 05/06/19
--- NOTE | 2019-05-03 17:13 | PN ---
Progress Note (short form) - Note Progress Note: surgery pt being worked up for ischemic bowel. cta pending. will follow.
[2019-05-03] MEDS: NICARDIPINE 25 MG in DEXTROSE 5%-WATER - 240 ML IVPB SCH (17:42)
--- NOTE | 2019-05-03 18:27 | PN ---
Physical Exam: 58 AA M h/o GI bleeding (03/2018, requiring carafate), NIDDM, HTN, Chronic abdominal pain (H. pylori infection), and chronic anemia (unknown cause, recent colonoscopy and endoscopy scheduled for 05/07/19), who presents to the ER with 3 days of progressively worsening burning epigastric abdominal pain with associated hematemesis (dark, watery red) and melena. Patient still complaining of generalized abdominal pain, pt. being evaluated for possible ischemic bowel with CT-A of abdomen indicating subtle concentric wall edema in distal bowel, and possible mesenteric ischemia, general surgery evaluated patient where pt. declined exploratory surgery for now pt. to be monitored clinically w/ follow up CPK/trops, serial abdominal exams, ICU monitoring, NPO, PPI and ABx. VSS. PE VS: GA anxious, AAox3, vomiting HEENT NC/AT, EOMI, neck supple, dry MM Chest CTAB, no crackles/wheezing CVS S1, S2+, sinus tachycardia Abd soft, diffuse tenderness to palpation, no guarding Ext NO LE edema Vital Signs - 24 hr 05/02/19 05/02/19 05/02/19 19:00 20:00 20:45 Temperature 98.6 F Pulse Rate 91 H 94 H Respiratory 16 16 16 Rate Blood Pressure 168/68 148/69 O2 Sat by Pulse 100 100 Oximetry (%) 05/02/19 05/02/19 05/02/19 21:00 22:00 23:00 Temperature 98.4 F Pulse Rate 94 H 94 H 99 H Respiratory 18 18 16 Rate Blood Pressure 164/74 143/108 H 156/95 O2 Sat by Pulse Oximetry (%) 05/03/19 05/03/19 05/03/19 00:00 01:00 02:00 Temperature 98.6 F Pulse Rate 90 98 H 94 H Respiratory 18 18 16 Rate Blood Pressure 174/96 H 166/83 169/96 O2 Sat by Pulse Oximetry (%) 05/03/19 05/03/19 05/03/19 03:00 04:00 05:00 Temperature Pulse Rate 98 H 92 H 94 H Respiratory 16 18 18 Rate Blood Pressure 169/96 175/81 H 161/88 O2 Sat by Pulse Oximetry (%) 05/03/19 05/03/19 05/03/19 06:00 08:00 09:00 Temperature 98.2 F Pulse Rate 99 H 96 H Respiratory 16 18 14 Rate Blood Pressure 160/89 172/92 H O2 Sat by Pulse 100 Oximetry (%) 05/03/19 05/03/19 05/03/19 10:00 12:00 14:00 Temperature 97.4 F L 97.5 F L Pulse Rate 92 H 93 H 93 H Respiratory 14 14 10 Rate Blood Pressure 167/98 140/83 142/75 O2 Sat by Pulse 100 Oximetry (%) 05/03/19 05/03/19 16:00 18:00 Temperature 98 F Pulse Rate 93 H 91 H Respiratory 14 Rate Blood Pressure 161/85 151/87 O2 Sat by Pulse Oximetry (%) Laboratory Results - last 24 hr 05/01/19 05/02/19 05/02/19 22:17 18:00 20:00 WBC 19.3 H RBC 3.75 L Hgb 11.1 L Hct 34.3 L MCV 91.5 MCH 29.5 MCHC 32.2 RDW 14.4 Plt Count 272 MPV 9.4 Absolute Neuts (auto) Neutrophils % Lymphocytes % Monocytes % Eosinophils % Basophils % Nucleated RBC % Anticoagulation Therapy Puncture Site ABG pH ABG pCO2 at Pt Temp ABG pO2 at Pt Temp ABG HCO3 ABG O2 Sat (Measured) ABG O2 Content ABG Base Excess Jose Elias Test O2 Delivery Device Oxygen Flow Rate Vent Mode Vent Rate Mechanical Rate Pressure Support Vent Sodium Potassium Chloride Carbon Dioxide Anion Gap BUN Creatinine Est GFR (CKD-EPI)AfAm Est GFR (CKD-EPI)NonAf POC Glucometer Random Glucose Calcium Phosphorus Magnesium Total Bilirubin AST ALT Alkaline Phosphatase Creatine Kinase Creatine Kinase Index CK-MB (CK-2) Troponin I Total Protein Albumin Free T3 2.1 Urine Color Yellow Urine Appearance Clear Urine pH 6.0 Ur Specific Walton 1.031 Urine Protein 4+ H Urine Glucose (UA) 3+ H Urine Ketones Negative Urine Blood 2+ H Urine Nitrite Negative Urine Bilirubin Negative Urine Urobilinogen 0.2 Ur Leukocyte Esterase Negative Urine WBC (Auto) 2 Urine RBC (Auto) 6 Urine Casts (Auto) 16 U Epithel Cells (Auto) 2.7 Urine Bacteria (Auto) 1.9 Blood Type 05/02/19 05/03/19 05/03/19 21:53 06:00 06:00 WBC 19.6 H RBC 3.81 L Hgb 11.2 L Hct 34.1 L MCV 89.5 MCH 29.5 MCHC 33.0 RDW 14.2 Plt Count 271 MPV 9.3 Absolute Neuts (auto) 16.7 H Neutrophils % 85.0 H Lymphocytes % 9.1 Monocytes % 5.7 Eosinophils % 0.0 Basophils % 0.2 Nucleated RBC % 0 Anticoagulation Therapy Puncture Site ABG pH ABG pCO2 at Pt Temp ABG pO2 at Pt Temp ABG HCO3 ABG O2 Sat (Measured) ABG O2 Content ABG Base Excess Jose Elias Test O2 Delivery Device Oxygen Flow Rate Vent Mode Vent Rate Mechanical Rate Pressure Support Vent Sodium Potassium Chloride Carbon Dioxide Anion Gap BUN Creatinine Est GFR (CKD-EPI)AfAm Est GFR (CKD-EPI)NonAf POC Glucometer 168 Random Glucose Calcium Phosphorus Magnesium Total Bilirubin AST ALT Alkaline Phosphatase Creatine Kinase Creatine Kinase Index CK-MB (CK-2) Troponin I Total Protein Albumin Free T3 Urine Color Urine Appearance Urine pH Ur Specific [place] Urine Protein Urine Glucose (UA) Urine Ketones Urine Blood Urine Nitrite Urine Bilirubin Urine Urobilinogen Ur Leukocyte Esterase Urine WBC (Auto) Urine RBC (Auto) Urine Casts (Auto) U Epithel Cells (Auto) Urine Bacteria (Auto) Blood Type O POSITIVE 05/03/19 05/03/19 05/03/19 06:00 06:09 11:33 WBC RBC Hgb Hct MCV MCH MCHC RDW Plt Count MPV Absolute Neuts (auto) Neutrophils % Lymphocytes % Monocytes % Eosinophils % Basophils % Nucleated RBC % Anticoagulation Therapy Puncture Site ABG pH ABG pCO2 at Pt Temp ABG pO2 at Pt Temp ABG HCO3 ABG O2 Sat (Measured) ABG O2 Content ABG Base Excess Jose Elias Test O2 Delivery Device Oxygen Flow Rate Vent Mode Vent Rate Mechanical Rate Pressure Support Vent Sodium 146 H Potassium 3.6 Chloride 111 H Carbon Dioxide 29 Anion Gap 6 L BUN 30.1 H Creatinine 2.0 H Est GFR (CKD-EPI)AfAm 41.99 Est GFR (CKD-EPI)NonAf 36.23 POC Glucometer 208 243 Random Glucose 236 H Calcium 8.3 L Phosphorus 3.8 Magnesium 2.0 Total Bilirubin 0.2 AST 47 H ALT 28 Alkaline Phosphatase 87 Creatine Kinase 2138 H Creatine Kinase Index 0.2 CK-MB (CK-2) 5.9 H Troponin I 0.10 H Total Protein 5.1 L Albumin 2.4 L Free T3 Urine Color Urine Appearance Urine pH Ur Specific [place] Urine Protein Urine Glucose (UA) Urine Ketones Urine Blood Urine Nitrite Urine Bilirubin Urine Urobilinogen Ur Leukocyte Esterase Urine WBC (Auto) Urine RBC (Auto) Urine Casts (Auto) U Epithel Cells (Auto) Urine Bacteria (Auto) Blood Type 05/03/19 05/03/19 15:00 17:27 WBC RBC Hgb Hct MCV MCH MCHC RDW Plt Count MPV Absolute Neuts (auto) Neutrophils % Lymphocytes % Monocytes % Eosinophils % Basophils % Nucleated RBC % Anticoagulation Therapy No Result Required. Puncture Site Left radial ABG pH 7.41 ABG pCO2 at Pt Temp 44.2 ABG pO2 at Pt Temp 82.2 ABG HCO3 27.7 H ABG O2 Sat (Measured) 95.9 ABG O2 Content 17.3 ABG Base Excess 3.1 H Jose Elias Test Positive O2 Delivery Device Room air Oxygen Flow Rate No Vent Mode No Result Required. Vent Rate No Result Required. Mechanical Rate No Result Required. Pressure Support Vent No Result Required. Sodium Potassium Chloride Carbon Dioxide Anion Gap BUN Creatinine Est GFR (CKD-EPI)AfAm Est GFR (CKD-EPI)NonAf POC Glucometer 164 Random Glucose Calcium Phosphorus Magnesium Total Bilirubin AST ALT Alkaline Phosphatase Creatine Kinase Creatine Kinase Index CK-MB (CK-2) Troponin I Total Protein Albumin Free T3 Urine Color Urine Appearance Urine pH Ur Specific [place] Urine Protein Urine Glucose (UA) Urine Ketones Urine Blood Urine Nitrite Urine Bilirubin Urine Urobilinogen Ur Leukocyte Esterase Urine WBC (Auto) Urine RBC (Auto) Urine Casts (Auto) U Epithel Cells (Auto) Urine Bacteria (Auto) Blood Type Microbiology 05/02/19 13:20 Urine Culture - Final Urine - Urine [place] NO GROWTH OBTAINED 05/02/19 00:15 Blood Culture - Preliminary Blood - Peripheral Venous NO GROWTH OBTAINED AFTER 24 HOURS, INCUBATION TO CONTINUE FOR 4 DAYS. 05/02/19 00:15 Blood Culture - Preliminary Blood - Peripheral Venous NO GROWTH OBTAINED AFTER 24 HOURS, INCUBATION TO CONTINUE FOR 4 DAYS. Current Medications Generic Name Dose Route Start Last Admin Trade Name Freq PRN Reason Stop Dose Admin Chlorhexidine Gluconate 1 applic 05/02/19 22:00 05/02/19 21:51 Hibiclens For Decolonization - TP 1 applic HS PAVEL Administration Ceftriaxone Sodium 1 gm/ 50 mls @ 100 mls/hr 05/02/19 10:00 05/03/19 09:40 Dextrose IVPB 100 mls/hr DAILY PAVEL Administration Metronidazole 500 mg in 100 mls @ 100 mls/hr 05/02/19 10:00 05/03/19 17:45 Flagyl 500mg Premixed Ivpb - IVPB 100 mls/hr Q8H-IV PAVEL Administration Nicardipine HCl 25 mg/ 250 mls @ 25 mls/hr 05/02/19 10:15 05/03/19 17:42 Dextrose IVPB Not Given TITR PAVEL Protocol 2.5 MG/HR Pantoprazole Sodium 80 mg/ 100 mls @ 10 mls/hr 05/02/19 14:45 05/03/19 12:17 Sodium Chloride IVPB 10 mls/hr Q10H PAVEL Administration 8 MG/HR Sodium Chloride 500 mls @ 125 mls/hr 05/03/19 16:15 05/03/19 17:46 1/2 Normal Saline IV 125 mls/hr ASDIR PAVEL Administration Insulin Aspart 1 vial 05/02/19 15:15 05/03/19 17:45 Novolog Vial Sliding Scale - SQ Not Given ACHS PAVEL Protocol Insulin Detemir 10 units 05/04/19 07:00 Levemir Vial SQ AM PAVEL Morphine Sulfate 2 mg 05/02/19 13:30 05/03/19 18:00 Morphine Sulfate IVPUSH 2 mg Q4H PRN Administration PAIN LEVEL 7 - 10 Mupirocin 1 applic 05/02/19 10:00 05/03/19 09:40 Bactroban Ointment (For Decolonization) - NS 05/07/19 09:59 1 applic BID PAVEL Administration Nifedipine 60 mg 05/03/19 10:00 05/03/19 09:40 Procardia Xl - PO 60 mg DAILY PAVEL Administration Ondansetron HCl 4 mg 05/02/19 10:07 05/03/19 12:37 Zofran Injection IVPUSH 4 mg Q6H PRN Administration NAUSEA AND/OR VOMITING A/P: 58 M h/o UGIB s/p carafate in the past, uncontrolled HTN w/ urgency, T2DM with hyperglycemia, presents with worsening abdominal pain, suggestive of possible mesenteric ischemia on CT-A imaging, patient refusing exploratory surgery at this time. Worsening abdominal pain with rising CPK possibly 2/2 ischemic bowel, pt. refusing exploratory surgery Keep NPO, PPI , IV ABX, IV hydration, trend CPK/renal function Surgery consult: Dr. Ata ROSS hold AC, SCD for now, supportive measures as mentioned above, no EGD at this time GI evaluation: Dr Hernandez, Dr. Sanabria ICU Care: Dr. Jason DM2 not at goal, pt. critically ill need F/S 140-180 consider starting insulin drip at a rate of 1-2u/hr of regular insulin and titrate F/S Q4H HTN remains on Nicardapine drip, unable to tolerate PO titrate to decrease BP by 25% Add PO BP meds once able to tolerate PO DVT ppx: SCD for now GI ppx: PPI BID Management as per ICU team Visit type - Emergency Visit Emergency Visit: Yes ED Registration Date: 05/02/19 Care time: The patient presented to the Emergency Department on the above date and was hospitalized for further evaluation of their emergent condition. - New Patient This patient is new to me today: No - Critical Care Critical Care patient: Yes Total Critical Care Time (in minutes): 40 Critical Care Statement: The care of this patient involved high complexity decision making to prevent further life threatening deterioration of the patient 's condition and/or to evaluate & treat vital organ system(s) failure or risk of failure. - Discharge Referral Referred to [facility] No
--- NOTE | 2019-05-03 18:34 | CONS ---
DATE OF CONSULTATION: 05/03/2019 REASON FOR CONSULTATION: Acute abdomen. This is a consultation at the request of the bean roaster and the intensive care unit physician. BRIEF HISTORY: A 58-year-old male who was admitted to [facility] yesterday for lower abdominal pain. It has since moved to the upper abdomen. He is a noncompliant diabetic that is poorly controlled. He has an elevated white blood cell count. The patient is currently nonacidotic with an elevated bicarbonate. His urine output was over 2 L yesterday, and he has been afebrile. However, he was noted to be writhing in pain. He was noted to be vomiting blood, and the bean roaster felt that this was most consistent with ischemic bowel. The patient just returned from a CAT scan angiogram. PAST MEDICAL HISTORY: Consistent with diabetes, hypertension, anemia, and benign prostatic hypertrophy. Also, in his past he has had Sayda-Perry tear and esophagitis. He complains of dysuria and blood in his urine as well. PAST SURGICAL HISTORY: Includes a prostate procedure, left toe amputation. SOCIAL HISTORY: Negative for alcohol. Negative for tobacco. He denies drugs. I specifically asked him if he had been recently vaping or doing any drugs before the pain onset. He stated it just appeared 2 days ago. He usually goes to [facility]. Has been there multiple times but this time decided to come to [facility] instead of [facility]. HOME MEDICATIONS: Have been reviewed. They include Lipitor, Neurontin, insulin, lisinopril, Reglan, Prilosec, and Protonix. REVIEW OF SYSTEMS: General: Denies fatigue. Cardiac: Denies chest pain. Respiratory: Denies shortness of breath. Gastrointestinal: Admits to upper abdominal pain currently as well as nausea and vomiting. He denies diarrhea. Genitourinary: Admits to blood in his urine. Musculoskeletal: Admits to arthritic pain. PHYSICAL EXAMINATION: General: This is a well-developed, well-nourished 58-year-old male. He is lying in the position and rocking. HEENT: His head is normocephalic. Sclerae anicteric. Neck: Supple. Chest: Clear. Abdomen: Soft. He has epigastric tenderness. He has no obvious surgical scars. No obvious hernias. He has mild guarding and rebound in the upper abdomen. Extremities: Trace edema. LABORATORIES: White blood cell count 19,000, his hemoglobin is 11.2, which is essentially changed from admission. He does have a shift. His coagulation profile is unremarkable. His blood gas from today shows no acidosis with actually an elevated bicarbonate. His chemistry from earlier today showed a creatinine of 2.0, an elevated creatinine kinase of 2138, a mildly elevated troponin. His toxicology screen is negative. His urinalysis showed glucose, protein, and 2+ blood. His CTA has been reviewed. They note edema of distal ileal bowel loops with mesenteric edema, which they feel was nonspecific. There is fluid within the colon without edema. There is minimal pelvic free fluid. There is a possible stenosis of the celiac artery. The appendix is normal. There is no pneumoperitoneum, pneumatosis, portal venous gas, or bowel obstruction. There is also air noted in the rectum. ASSESSMENT: This is a 58-year-old male admitted with abdominal pain, diabetic. His pain has lasted for several days. It has now progressed to upper abdominal pain. He has an elevated white blood cell count without acidosis. His abdominal exam does not show significant guarding or rebound perhaps more so in the upper abdomen. CAT scan shows nonspecific findings in the distal ileum; however, on exam of the right lower quadrant, that area is completely soft. There is a mention of a narrowing of the celiac trunk. That would not affect the blood supply to the distal ileum, and the superior mesenteric artery is patent. You would also expect of several days of ischemic bowel that there would be some significant bloody ascites, and there is no significant fluid noted or free air. At this point, I suspect that this is an infectious process, possible gastritis. PLAN: Patient may benefit from an upper endoscopy as his symptoms seem to be over his stomach. I have nevertheless offered the patient exploratory surgery to rule out ischemic bowel or other pathology. He declines. He is requesting pain medication. At this point, recommend continue intravenous antibiotics, continue pain support, continue Protonix drip. If patient develops signs of acidosis or his abdominal exam changes and shows more peritoneal findings and the patient changes his mind, can revisit exploratory surgery; however, I suspect that will be nontherapeutic. DO JUANI WILDER/[id number]
[2019-05-03 18:45] LABS: ALBUMIN 2.1 g/dl (3.4-5.0); BILIRUBIN,TOTAL 0.3 mg/dL (0.2-1); BLOOD UREA NITROGEN 32.8 mg/dL (7-18); POTASSIUM 3.6 mmol/L (3.5-5.1)
[2019-05-03] MEDS: CHLORHEXIDINE GLUCONATE 4% CLEANSER FOR DECOLONIZATION TP SCH (22:05)
[2019-05-04] MEDS: PANTOPRAZOLE SODIUM 80 MG in SODIUM CHLORIDE 100 ML IVPB SCH ×3 (00:15→18:01)
[2019-05-04] MEDS: MORPHINE SULFATE 2 MG/ML VIAL IVPUSH PRN ×3 (03:34→19:12)
[2019-05-04] MEDS ORDERED: INSULIN (LEVEMIR) 100 UNITS/ML UNITS SQ SCH (07:00)
[2019-05-04] MEDS: INSULIN SLIDING SCALE (NOVOLOG) 1 VIAL SQ SCH ×5 (07:03→22:10)
[2019-05-04 07:12] LABS: BASO % 0.2 % (0-2.0); EOS % 0.2 % (0-4.5); HEMATOCRIT 35.6 % (35.4-49); HEMOGLOBIN 11.5 GM/dL (11.7-16.9); MCH 29.6 pg (25.7-33.7); MCHC 32.3 g/dl (32.0-35.9); MEAN CELL VOLUME 91.6 fl (80-96); MEAN PLT VOLUME 9.8 fl (7.5-11.1); MONO % 6.1 % (3.8-10.2); NEUT % 81.5 % (42.8-82.8); PLATELET COUNT 257 K/MM3 (134-434); RBC 3.89 M/mm3 (4.00-5.60); RDW 14.4 % (11.9-15.9); WHITE BLOOD COUNT 17.2 K/mm3 (4.0-10.0)
[2019-05-04 07:40] LABS: BILIRUBIN,TOTAL 1.5 mg/dL (0.2-1); BLOOD UREA NITROGEN 32.6 mg/dL (7-18); CALCIUM 7.8 mg/dL (8.5-10.1); CREATININE 1.9 mg/dL (0.55-1.3); MAGNESIUM 2.1 mg/dL (1.8-2.4); PHOSPHOROUS 3.3 mg/dL (2.5-4.9); POTASSIUM 3.5 mmol/L (3.5-5.1); TOT PROT 4.6 g/dl (6.4-8.2)
--- NOTE | 2019-05-04 09:19 | PN ---
Progress Note (short form) - Note Progress Note: Pt interviewed along with at bedside in ICU. Case discussed with Dr Jason and ICU team. CT scans reviewed along with labs. Dr Berumen's note appreciated. Pt apparently has had GI symptoms for years, with prior hospitalizations in [place] and [facility] in [place]. He says he had a colonoscopy last week at Dr Manuel's office for workup of diarrhea; says the exam was negative except for hemorrhoids and he does not believe any biopsies were taken. He was scheduled to have an EGD on 05/07/2019, by his report. He says he has passed flatus today but no stool in several days. On exam he initially appeared comfortable but the longer I talked to him the more he began total body shaking. He has active bowel sounds on exam. The abdomen is fairly soft with some LUQ and epigastric tenderness, no RLQ tenderness, and no rebound tenderness anywhere. His WBC is down slightly today, still elevated. Renal function is stable. Impression: I agree with Dr Berumen that ischemic bowel seems unlikely now as a cause of his chronic symptoms. Indeed his symptom of chronic diarrhea in the context of longstanding DM could simply be exocrine pancreatic insufficiency. Of concern since the admission has been the elevated WBC which peaked at 19.6. Blood cultures so far have been negative. Salmonella could be a cause of diarrhea, elevated WBC, and ileal inflammation. It might be too late to obtain diagnostic stool culture but I would try. Acute intermittent porphyria could do this but would be a stretch at this age. Low-grade ischemia is still not impossible and would be interested in the vascular surgical opinion. The elevated CPK may be secondary to either a statin or to his rocking activity and not to an abdominal process.
--- NOTE | 2019-05-04 09:24 | PN ---
Progress Note (short form) - Note Progress Note: Renal follow up for hypertensive urgency and VAISHNAVI Seen and examined in the ICU awake and alert reports abdominal pain no N/V on IVF making urine off Nicardipine gtt Vital Signs Temperature 97.9 F 05/04/19 06:00 Pulse Rate 90 05/04/19 06:00 Respiratory Rate 15 05/04/19 06:00 Blood Pressure 156/91 05/04/19 06:00 O2 Sat by Pulse Oximetry (%) 100 05/03/19 21:00 Intake & Output 05/01/19 05/02/19 05/03/19 05/04/19 23:59 23:59 23:59 23:59 Intake Total 3382 850 Output Total 2600 2800 300 Balance -2600 582 550 Weight 99.79 kg 92 kg 92 kg 92.079 kg Mild distress from pain neck supple RRR CTA soft, + tenderness no LE edema CBC, BMP 05/04/19 06:15 05/04/19 06:15 Current Medications Chlorhexidine Gluconate (Hibiclens For Decolonization -) 1 applic TP HS [facility]EL Last Admin: 05/03/19 22:05 Dose: 1 applic Ceftriaxone Sodium 1 gm/ (Dextrose) 50 mls @ 100 mls/hr IVPB DAILY [facility] Last Admin: 05/03/19 09:40 Dose: 100 mls/hr Metronidazole (Flagyl 500mg Premixed Ivpb -) 500 mg in 100 mls @ 100 mls/hr IVPB Q8H-IV [facility]AVEL Last Admin: 05/04/19 01:04 Dose: 100 mls/hr Nicardipine HCl 25 mg/ (Dextrose) 250 mls @ 25 mls/hr IVPB TITR [facility]; Protocol Last Admin: 05/03/19 17:42 Dose: Not Given Pantoprazole Sodium 80 mg/ (Sodium Chloride) 100 mls @ 10 mls/hr IVPB Q10H [facility] Last Admin: 05/04/19 00:15 Dose: 10 mls/hr Potassium Chloride 30 meq/ (Sodium Chloride) 1,015 mls @ 125 mls/hr IVPB Q8H [facility] Insulin Aspart (Novolog Vial Sliding Scale -) 1 vial SQ ACHS [facility]; Protocol Last Admin: 05/04/19 08:53 Dose: 2 units Insulin Detemir (Levemir Vial) 10 units SQ AM [facility] Morphine Sulfate (Morphine Sulfate) 2 mg IVPUSH Q4H PRN PRN Reason: PAIN LEVEL 7 - 10 Last Admin: 05/04/19 08:57 Dose: 2 mg Mupirocin (Bactroban Ointment (For Decolonization) -) 1 applic NS BID [facility] Stop: 05/07/19 09:59 Last Admin: 05/03/19 22:05 Dose: 1 applic Nifedipine (Procardia Xl -) 60 mg PO DAILY [facility] Last Admin: 05/03/19 09:40 Dose: 60 mg Ondansetron HCl (Zofran Injection) 4 mg IVPUSH Q6H PRN PRN Reason: NAUSEA AND/OR VOMITING Last Admin: 05/03/19 22:03 Dose: 4 mg Impression 1. VAISHNAVI 2. HTN urgency 3. DM 4. anemia 5. bph 6. CKD 7. Abdominal pain Plan Renal function stable thus far. Continue 1/2 NS for now given contrast exposure yesterday. Can discontinue in 24 hours. BP improved but remains elevated. Give Oral Nifedpine ER today goal SBP < 160 for now. Would avoid JOELLE/ARB for now given VAISHNAVI and recent contrast expousre pain control as needed continue GI/Surgical work up Thank you Espinoza Mcconnell DO
--- NOTE | 2019-05-04 09:54 | PN ---
Teaching Attending Note Name of Resident: Deanna Zavaleta ATTENDING PHYSICIAN STATEMENT I saw and evaluated the patient. I reviewed the resident's note and discussed the case with the resident. I agree with the resident's findings and plan as documented. SUBJECTIVE: Patient seen and examined in the ICU. Awake and alert. Still with nausea and vomiting and abdominal pain. No CP or SOB. Off Cardene drip. CTA: non-diagnostic to explain the patient's symptoms GENERAL: Awake, alert, and fully oriented, uncomfortable HEAD: Normal with no signs of trauma. EYES: PERRLA, EOMI, sclera anicteric, conjunctiva clear. EARS, NOSE, THROAT: Moist mucous membranes. NECK: Normal range of motion, supple without lymphadenopathy, JVD, or masses. LUNGS: Breath sounds equal, clear to auscultation bilaterally. HEART: Regular rate and rhythm, normal S1 and S2 without murmur, rub or gallop. ABDOMEN: Soft, RLQ/LLQ tenderness, not distended, normoactive bowel sounds. MUSCULOSKELETAL: Normal range of motion at all joints. No CVA tenderness. UPPER EXTREMITIES: 2+ pulses, warm, well-perfused. LOWER EXTREMITIES: 2+ pulses, warm, well-perfused. No peripheral edema. NEUROLOGICAL: Cranial nerves II-XII intact. Normal speech. Laboratory Results - last 24 hr 05/03/19 05/03/19 05/03/19 06:00 11:33 15:00 WBC RBC Hgb Hct MCV MCH MCHC RDW Plt Count MPV Absolute Neuts (auto) Neutrophils % Lymphocytes % Monocytes % Eosinophils % Basophils % Nucleated RBC % Anticoagulation Therapy No Result Required. Puncture Site Left radial ABG pH 7.41 ABG pCO2 at Pt Temp 44.2 ABG pO2 at Pt Temp 82.2 ABG HCO3 27.7 H ABG O2 Sat (Measured) 95.9 ABG O2 Content 17.3 ABG Base Excess 3.1 H Jose Elias Test Positive O2 Delivery Device Room air Oxygen Flow Rate No Vent Mode No Result Required. Vent Rate No Result Required. Mechanical Rate No Result Required. Pressure Support Vent No Result Required. Sodium 146 H Potassium 3.6 Chloride 111 H Carbon Dioxide 29 Anion Gap 6 L BUN 30.1 H Creatinine 2.0 H Est GFR (CKD-EPI)AfAm 41.99 Est GFR (CKD-EPI)NonAf 36.23 POC Glucometer 243 Random Glucose 236 H Lactic Acid Calcium 8.3 L Phosphorus 3.8 Magnesium 2.0 Total Bilirubin 0.2 AST 47 H ALT 28 Alkaline Phosphatase 87 Creatine Kinase 2138 H Creatine Kinase Index 0.2 CK-MB (CK-2) 5.9 H Troponin I 0.10 H Total Protein 5.1 L Albumin 2.4 L Triglycerides Cholesterol Total LDL Cholesterol HDL Cholesterol HIV 1&2 Antibody Screen HIV P24 Antigen 05/03/19 05/03/19 05/03/19 17:27 17:30 17:30 WBC RBC Hgb Hct MCV MCH MCHC RDW Plt Count MPV Absolute Neuts (auto) Neutrophils % Lymphocytes % Monocytes % Eosinophils % Basophils % Nucleated RBC % Anticoagulation Therapy Puncture Site ABG pH ABG pCO2 at Pt Temp ABG pO2 at Pt Temp ABG HCO3 ABG O2 Sat (Measured) ABG O2 Content ABG Base Excess Jose Elias Test O2 Delivery Device Oxygen Flow Rate Vent Mode Vent Rate Mechanical Rate Pressure Support Vent Sodium 146 H Potassium 3.6 Chloride 111 H Carbon Dioxide 30 Anion Gap 5 L BUN 32.8 H Creatinine 2.0 H Est GFR (CKD-EPI)AfAm 41.99 Est GFR (CKD-EPI)NonAf 36.23 POC Glucometer 164 Random Glucose 174 H Lactic Acid 1.2 Calcium 8.0 L Phosphorus Magnesium Total Bilirubin 0.3 AST 56 H ALT 30 Alkaline Phosphatase 87 Creatine Kinase Creatine Kinase Index CK-MB (CK-2) Troponin I Total Protein 5.0 L Albumin 2.1 L Triglycerides 128 Cholesterol 185 Total LDL Cholesterol 91 HDL Cholesterol 71 H HIV 1&2 Antibody Screen HIV P24 Antigen 05/03/19 05/03/19 05/03/19 17:30 20:00 22:00 WBC RBC Hgb Hct MCV MCH MCHC RDW Plt Count MPV Absolute Neuts (auto) Neutrophils % Lymphocytes % Monocytes % Eosinophils % Basophils % Nucleated RBC % Anticoagulation Therapy Puncture Site ABG pH ABG pCO2 at Pt Temp ABG pO2 at Pt Temp ABG HCO3 ABG O2 Sat (Measured) ABG O2 Content ABG Base Excess Jose Elias Test O2 Delivery Device Oxygen Flow Rate Vent Mode Vent Rate Mechanical Rate Pressure Support Vent Sodium Potassium Chloride Carbon Dioxide Anion Gap BUN Creatinine Est GFR (CKD-EPI)AfAm Est GFR (CKD-EPI)NonAf POC Glucometer 180 Random Glucose Lactic Acid Calcium Phosphorus Magnesium Total Bilirubin AST ALT Alkaline Phosphatase Creatine Kinase 2034 H Creatine Kinase Index 0.3 CK-MB (CK-2) 7.0 H Troponin I 0.09 H Total Protein Albumin Triglycerides Cholesterol Total LDL Cholesterol HDL Cholesterol HIV 1&2 Antibody Screen Negative HIV P24 Antigen Negative 05/04/19 05/04/19 05/04/19 06:15 06:15 06:15 WBC 17.2 H RBC 3.89 L Hgb 11.5 L Hct 35.6 MCV 91.6 MCH 29.6 MCHC 32.3 RDW 14.4 Plt Count 257 MPV 9.8 Absolute Neuts (auto) 14.0 H Neutrophils % 81.5 Lymphocytes % 12.0 D Monocytes % 6.1 Eosinophils % 0.2 D Basophils % 0.2 Nucleated RBC % 0 Anticoagulation Therapy Puncture Site ABG pH ABG pCO2 at Pt Temp ABG pO2 at Pt Temp ABG HCO3 ABG O2 Sat (Measured) ABG O2 Content ABG Base Excess Jose Elias Test O2 Delivery Device Oxygen Flow Rate Vent Mode Vent Rate Mechanical Rate Pressure Support Vent Sodium 144 Potassium 3.5 Chloride 110 H Carbon Dioxide 28 Anion Gap 6 L BUN 32.6 H Creatinine 1.9 H Est GFR (CKD-EPI)AfAm 44.68 Est GFR (CKD-EPI)NonAf 38.55 POC Glucometer Random Glucose 169 H Lactic Acid Calcium 7.8 L Phosphorus 3.3 Magnesium 2.1 Total Bilirubin 1.5 H AST 47 H ALT 27 Alkaline Phosphatase 85 Creatine Kinase 1776 H Creatine Kinase Index 0.3 CK-MB (CK-2) 5.7 H Troponin I 0.06 H Total Protein 4.6 L Albumin 2.0 L Triglycerides Cholesterol Total LDL Cholesterol HDL Cholesterol HIV 1&2 Antibody Screen HIV P24 Antigen 05/04/19 06:56 WBC RBC Hgb Hct MCV MCH MCHC RDW Plt Count MPV Absolute Neuts (auto) Neutrophils % Lymphocytes % Monocytes % Eosinophils % Basophils % Nucleated RBC % Anticoagulation Therapy Puncture Site ABG pH ABG pCO2 at Pt Temp ABG pO2 at Pt Temp ABG HCO3 ABG O2 Sat (Measured) ABG O2 Content ABG Base Excess Jose Elias Test O2 Delivery Device Oxygen Flow Rate Vent Mode Vent Rate Mechanical Rate Pressure Support Vent Sodium Potassium Chloride Carbon Dioxide Anion Gap BUN Creatinine Est GFR (CKD-EPI)AfAm Est GFR (CKD-EPI)NonAf POC Glucometer 173 Random Glucose Lactic Acid Calcium Phosphorus Magnesium Total Bilirubin AST ALT Alkaline Phosphatase Creatine Kinase Creatine Kinase Index CK-MB (CK-2) Troponin I Total Protein Albumin Triglycerides Cholesterol Total LDL Cholesterol HDL Cholesterol HIV 1&2 Antibody Screen HIV P24 Antigen ASSESSMENT/PLAN: Hypertensive Urgency DM HTN Anemia BPH VAISHNAVI Abdominal pain: Etiology to be further delineated Medication non-compliance specialist off Cardene drip Vascular surgical evaluation was called O2 as needed VTE prophylaxis IV Hydration VTE prophylaxis Dr Jason
[2019-05-04] MEDS ORDERED: DEXTROSE 5%-WATER - 50 ML IVPB ONE (10:19)
[2019-05-04] MEDS ORDERED: PT OWN MED DRAWER 7, Y5N ONE ×4 (10:19→21:17)
[2019-05-04] MEDS ORDERED: cefTRIAXone SODIUM 1 GM VIAL ONE (10:19)
[2019-05-04] MEDS: CEFTRIAXONE 1 GM in DEXTROSE 5%-WATER - 50 ML IVPB SCH (10:23)
[2019-05-04] MEDS: NIFEdipine E.R. 30 MG TABLET (FP) PO SCH (10:27)
[2019-05-04] MEDS: NICARDIPINE 25 MG in DEXTROSE 5%-WATER - 240 ML IVPB SCH (10:27)
[2019-05-04] MEDS: MUPIROCIN 2% TOPICAL OINTMENT FOR DECOLONIZATION NS SCH ×2 (11:02→22:10)
--- NOTE | 2019-05-04 11:16 | PN ---
Physical Exam: SUBJECTIVE: Patient seen and examined at bedside. Pt reports multiple episodes of nonbloody vomiting overnight. Denies bowel movement. Poor PO intake. Still with abdominal pain. OBJECTIVE: Vital Signs Period Temp Pulse Resp BP Sys/Aceves Pulse Ox Last 24 Hr 97.5 F-98 F 89-97 10-19 140-167/73-99 100-100 GENERAL: Awake, alert, and fully oriented, in no acute distress. Appears to be uncomfortable upon encounter. HEAD: Normal with no signs of trauma. EYES: Pupils equal, round and reactive to light, extraocular movements intact, sclera anicteric, conjunctiva clear. No lid lag. NECK: Normal range of motion, supple without lymphadenopathy, JVD, or masses. LUNGS: Breath sounds equal, clear to auscultation bilaterally. No wheezes, and no crackles. No accessory muscle use. HEART: Tachycardia with normal S1 and S2 without murmur, rub or gallop. ABDOMEN: Soft, tender to palpation in epigastrium. No rebound tenderness, no masses. No distension. Normoactive bowel sounds present. MUSCULOSKELETAL: Normal range of motion at all joints. No bony deformities or tenderness. No CVA tenderness. EXTREMITIES: 2+ pulses, warm, well-perfused. No calf tenderness. No peripheral edema. NEUROLOGICAL: Cranial nerves II-XII intact. Normal speech. PSYCHIATRIC: Cooperative. Good eye contact. Appropriate mood and affect. Laboratory Results - last 24 hr 05/03/19 05/03/19 05/03/19 06:00 11:33 15:00 WBC RBC Hgb Hct MCV MCH MCHC RDW Plt Count MPV Absolute Neuts (auto) Neutrophils % Lymphocytes % Monocytes % Eosinophils % Basophils % Nucleated RBC % Anticoagulation Therapy No Result Required. Puncture Site Left radial ABG pH 7.41 ABG pCO2 at Pt Temp 44.2 ABG pO2 at Pt Temp 82.2 ABG HCO3 27.7 H ABG O2 Sat (Measured) 95.9 ABG O2 Content 17.3 ABG Base Excess 3.1 H Jose Elias Test Positive O2 Delivery Device Room air Oxygen Flow Rate No Vent Mode No Result Required. Vent Rate No Result Required. Mechanical Rate No Result Required. Pressure Support Vent No Result Required. Sodium 146 H Potassium 3.6 Chloride 111 H Carbon Dioxide 29 Anion Gap 6 L BUN 30.1 H Creatinine 2.0 H Est GFR (CKD-EPI)AfAm 41.99 Est GFR (CKD-EPI)NonAf 36.23 POC Glucometer 243 Random Glucose 236 H Lactic Acid Calcium 8.3 L Phosphorus 3.8 Magnesium 2.0 Total Bilirubin 0.2 AST 47 H ALT 28 Alkaline Phosphatase 87 Creatine Kinase 2138 H Creatine Kinase Index 0.2 CK-MB (CK-2) 5.9 H Troponin I 0.10 H Total Protein 5.1 L Albumin 2.4 L Triglycerides Cholesterol Total LDL Cholesterol HDL Cholesterol HIV 1&2 Antibody Screen HIV P24 Antigen 05/03/19 05/03/19 05/03/19 17:27 17:30 17:30 WBC RBC Hgb Hct MCV MCH MCHC RDW Plt Count MPV Absolute Neuts (auto) Neutrophils % Lymphocytes % Monocytes % Eosinophils % Basophils % Nucleated RBC % Anticoagulation Therapy Puncture Site ABG pH ABG pCO2 at Pt Temp ABG pO2 at Pt Temp ABG HCO3 ABG O2 Sat (Measured) ABG O2 Content ABG Base Excess Jose Elias Test O2 Delivery Device Oxygen Flow Rate Vent Mode Vent Rate Mechanical Rate Pressure Support Vent Sodium 146 H Potassium 3.6 Chloride 111 H Carbon Dioxide 30 Anion Gap 5 L BUN 32.8 H Creatinine 2.0 H Est GFR (CKD-EPI)AfAm 41.99 Est GFR (CKD-EPI)NonAf 36.23 POC Glucometer 164 Random Glucose 174 H Lactic Acid 1.2 Calcium 8.0 L Phosphorus Magnesium Total Bilirubin 0.3 AST 56 H ALT 30 Alkaline Phosphatase 87 Creatine Kinase Creatine Kinase Index CK-MB (CK-2) Troponin I Total Protein 5.0 L Albumin 2.1 L Triglycerides 128 Cholesterol 185 Total LDL Cholesterol 91 HDL Cholesterol 71 H HIV 1&2 Antibody Screen HIV P24 Antigen 05/03/19 05/03/19 05/03/19 17:30 20:00 22:00 WBC RBC Hgb Hct MCV MCH MCHC RDW Plt Count MPV Absolute Neuts (auto) Neutrophils % Lymphocytes % Monocytes % Eosinophils % Basophils % Nucleated RBC % Anticoagulation Therapy Puncture Site ABG pH ABG pCO2 at Pt Temp ABG pO2 at Pt Temp ABG HCO3 ABG O2 Sat (Measured) ABG O2 Content ABG Base Excess Jose Elias Test O2 Delivery Device Oxygen Flow Rate Vent Mode Vent Rate Mechanical Rate Pressure Support Vent Sodium Potassium Chloride Carbon Dioxide Anion Gap BUN Creatinine Est GFR (CKD-EPI)AfAm Est GFR (CKD-EPI)NonAf POC Glucometer 180 Random Glucose Lactic Acid Calcium Phosphorus Magnesium Total Bilirubin AST ALT Alkaline Phosphatase Creatine Kinase 2034 H Creatine Kinase Index 0.3 CK-MB (CK-2) 7.0 H Troponin I 0.09 H Total Protein Albumin Triglycerides Cholesterol Total LDL Cholesterol HDL Cholesterol HIV 1&2 Antibody Screen Negative HIV P24 Antigen Negative 05/04/19 05/04/19 05/04/19 06:15 06:15 06:15 WBC 17.2 H RBC 3.89 L Hgb 11.5 L Hct 35.6 MCV 91.6 MCH 29.6 MCHC 32.3 RDW 14.4 Plt Count 257 MPV 9.8 Absolute Neuts (auto) 14.0 H Neutrophils % 81.5 Lymphocytes % 12.0 D Monocytes % 6.1 Eosinophils % 0.2 D Basophils % 0.2 Nucleated RBC % 0 Anticoagulation Therapy Puncture Site ABG pH ABG pCO2 at Pt Temp ABG pO2 at Pt Temp ABG HCO3 ABG O2 Sat (Measured) ABG O2 Content ABG Base Excess Jose Elias Test O2 Delivery Device Oxygen Flow Rate Vent Mode Vent Rate Mechanical Rate Pressure Support Vent Sodium 144 Potassium 3.5 Chloride 110 H Carbon Dioxide 28 Anion Gap 6 L BUN 32.6 H Creatinine 1.9 H Est GFR (CKD-EPI)AfAm 44.68 Est GFR (CKD-EPI)NonAf 38.55 POC Glucometer Random Glucose 169 H Lactic Acid Calcium 7.8 L Phosphorus 3.3 Magnesium 2.1 Total Bilirubin 1.5 H AST 47 H ALT 27 Alkaline Phosphatase 85 Creatine Kinase 1776 H Creatine Kinase Index 0.3 CK-MB (CK-2) 5.7 H Troponin I 0.06 H Total Protein 4.6 L Albumin 2.0 L Triglycerides Cholesterol Total LDL Cholesterol HDL Cholesterol HIV 1&2 Antibody Screen HIV P24 Antigen 05/04/19 06:56 WBC RBC Hgb Hct MCV MCH MCHC RDW Plt Count MPV Absolute Neuts (auto) Neutrophils % Lymphocytes % Monocytes % Eosinophils % Basophils % Nucleated RBC % Anticoagulation Therapy Puncture Site ABG pH ABG pCO2 at Pt Temp ABG pO2 at Pt Temp ABG HCO3 ABG O2 Sat (Measured) ABG O2 Content ABG Base Excess Jose Elias Test O2 Delivery Device Oxygen Flow Rate Vent Mode Vent Rate Mechanical Rate Pressure Support Vent Sodium Potassium Chloride Carbon Dioxide Anion Gap BUN Creatinine Est GFR (CKD-EPI)AfAm Est GFR (CKD-EPI)NonAf POC Glucometer 173 Random Glucose Lactic Acid Calcium Phosphorus Magnesium Total Bilirubin AST ALT Alkaline Phosphatase Creatine Kinase Creatine Kinase Index CK-MB (CK-2) Troponin I Total Protein Albumin Triglycerides Cholesterol Total LDL Cholesterol HDL Cholesterol HIV 1&2 Antibody Screen HIV P24 Antigen Active Medications Generic Name Dose Route Start Last Admin Trade Name Freq PRN Reason Stop Dose Admin Chlorhexidine Gluconate 1 applic 05/02/19 22:00 05/03/19 22:05 Hibiclens For Decolonization - TP 1 applic HS [facility] Administration Ceftriaxone Sodium 1 gm/ 50 mls @ 100 mls/hr 05/02/19 10:00 05/04/19 10:23 Dextrose IVPB 100 mls/hr DAILY [facility] Administration Metronidazole 500 mg in 100 mls @ 100 mls/hr 05/02/19 10:00 05/04/19 10:57 Flagyl 500mg Premixed Ivpb - IVPB 100 mls/hr Q8H-IV [facility] Administration Pantoprazole Sodium 80 mg/ 100 mls @ 10 mls/hr 05/02/19 14:45 05/04/19 11:00 Sodium Chloride IVPB 10 mls/hr Q10H [facility] Administration 8 MG/HR Potassium Chloride 30 meq/ 1,015 mls @ 125 mls/hr 05/04/19 08:03 Sodium Chloride IVPB Q8H [facility] Insulin Aspart 1 vial 05/02/19 15:15 05/04/19 08:53 Novolog Vial Sliding Scale - SQ 2 units ACHS [facility] Administration Protocol Insulin Detemir 10 units 05/04/19 07:00 05/04/19 10:27 Levemir Vial SQ Not Given AM [facility] Morphine Sulfate 2 mg 05/02/19 13:30 05/04/19 08:57 Morphine Sulfate IVPUSH 2 mg Q4H PRN Administration PAIN LEVEL 7 - 10 Mupirocin 1 applic 05/02/19 10:00 05/04/19 11:02 Bactroban Ointment (For Decolonization) - NS 05/07/19 09:59 1 applic BID [facility] Administration Nifedipine 60 mg 05/03/19 10:00 05/04/19 10:27 Procardia Xl - PO 60 mg DAILY [facility] Administration Ondansetron HCl 4 mg 05/02/19 10:07 05/03/19 22:03 Zofran Injection IVPUSH 4 mg Q6H PRN Administration NAUSEA AND/OR VOMITING ASSESSMENT/PLAN: 58M PMH DM, HTN, Anemia, BPH (s/p prostate procedure) who presents with nausea, vomiting, and lower abdominal pain. Patient was found to have hypertensive emergency. Patient continues to have abdominal pain and hypertension. Neuro Head CT negative to for acute pathology Stable and continue to monitor CV Hypertensive Urgency; resolved. Troponemia -Now off nicardipine drip. PO Procardia 60 mg given today. Cont to monitor BP -Echo showed LVEF normal, moderate concentric hypertrophy, RV normal, and trace TR -troponin 0.10 --> 0.09 --> 0.06 -CK elevated 2138 --> 1776; cont to trend -EKG shows sinus tachy, QTC of 466, incomplete RBB, left anterior fascicular block -Cardiology consulted Pulm -Chest CT shows: Small to moderate sized focal and nonspecific area of subpleural reticulation at the periphery of the lower segment of right upper lobe and right middle lobe at the right minor fissure, likely reflecting the sequela of remote insults. Minimal subsegmental atelectasis the right lower lobe. The tracheobronchial tree is grossly patent. There is no airspace consolidation, pleural effusion or pneumothorax. -On RA satting 100% -Stable GI Intractable Nausea/Vomiting; unknown etiology R/o Mesenteric Ischemia, unlikely R/o Salmonella -Still with abd pain + multiple episodes of vomiting; unable to tolerate PO. No BM since prior to admission. Case discussed with GI and surg. There was concern for mesenteric ischemia, but given pt's age, CTAP w/ contrast findings that were unremarkable for definite ischemia, unusual symptoms not consistent with ischemia, mesenteric ischemia is unlikely. However, given pt's persistent abd pain out of proportion to objective findings, elevated CPK, and leukocytosis, will consult vascular surg for further evaluation. -EGD done 04/[address] Manuel at [facility]. Record release consent form sent ; awaiting records. Per ED admission note, [facility] was contacted by ED with verbal EGD report given: EGD showed no active bleeding, healed iwona lara tears, mild esophagitis. Will need UES when HD stable. -Protonix drip 8 mcg/hr -NPO -IV Ceftriaxone/Flagyl (Day 3) for empiric coverage of possible intra-abd infection given unexplained leukocytosis and presenting symptoms -Abdominal u/s shows 7-8mm CBD and atrophy of the pancreatic body/tail -Abdominal CT shows mild hepatomegaly with diffuse fatty infiltration of liver. -Per surg, no definite indication for exploratory surgery at this time. -Per GI, stool cultures, shiga toxin, stool WBC ordered to r/o Salmonella infection. Will need repeat EGD once hemodynamically stable. Renal: VAISHNAVI on CKD -Creatinine at baseline is 1.5 from earlier visit -Cr 2.0 --> 1.9 today -CK elevated 2318 -1/2 NS + KCl 30 mEq @ 65 Endo: IDDM Hypoattenuated Lesion on L thyroid gland (incidental finding on CT scan) -BGM/ISS ACHS -TSH low, Free T4 normal. Will need outpatient endocrinology follow up for thyroid gland lesion -Will hold long-acting insulin for now given patient is NPO and still unable to tolerate food -Cont to monitor BGMs ID Leukocytosis w/ possible biliary source -CTAP w/ contrast showed -Will given empiric coverage with Ceftriaxone and Flagyl -Lactate 2.1 to 3.2 -Leukocytosis with left shift -Urine culture pending F: 1/2 NS @ 65 + KCl 30 Meq E: Monitor CMP (K+) N: NPO DVT: Heparin 5000 unit SQ TID GI: Protonix Drip Dispo: Under ICU monitoring Visit type - Emergency Visit Emergency Visit: Yes ED Registration Date: 05/02/19 Care time: The patient presented to the Emergency Department on the above date and was hospitalized for further evaluation of their emergent condition. - New Patient This patient is new to me today: No - Critical Care Critical Care patient: No Total Critical Care Time (in minutes): 40 Critical Care Statement: The care of this patient involved high complexity decision making to prevent further life threatening deterioration of the patient 's condition and/or to evaluate & treat vital organ system(s) failure or risk of failure. ATTENDING PHYSICIAN STATEMENT I saw and evaluated the patient. I reviewed the resident's note and discussed the case with the resident. I agree with the resident's findings and plan as documented. SUBJECTIVE: OBJECTIVE: ASSESSMENT AND PLAN:
[2019-05-04] MEDS: POTASSIUM CHLORIDE 30 MEQ in SODIUM CHLORIDE 0.45% 1,000 ML IVPB SCH ×2 (11:17→18:21)
--- NOTE | 2019-05-04 11:37 | PN ---
Progress Note, Physician Chief Complaint: Events noted Hypertension 170's systolic Intermittent nausea History of Present Illness: Patient was seen and examined. Awake and alert. Chart was reviewed Denies chest pain, SOB or palpitations - Current Medication List Current Medications: Active Medications Chlorhexidine Gluconate (Hibiclens For Decolonization -) 1 applic TP HS [facility] Last Admin: 05/03/19 22:05 Dose: 1 applic Ceftriaxone Sodium 1 gm/ (Dextrose) 50 mls @ 100 mls/hr IVPB DAILY [facility] Last Admin: 05/04/19 10:23 Dose: 100 mls/hr Metronidazole (Flagyl 500mg Premixed Ivpb -) 500 mg in 100 mls @ 100 mls/hr IVPB Q8H-IV [facility] Last Admin: 05/04/19 10:57 Dose: 100 mls/hr Pantoprazole Sodium 80 mg/ (Sodium Chloride) 100 mls @ 10 mls/hr IVPB Q10H [facility] Last Admin: 05/04/19 11:00 Dose: 10 mls/hr Potassium Chloride 30 meq/ (Sodium Chloride) 1,015 mls @ 125 mls/hr IVPB Q8H [facility] Last Admin: 05/04/19 11:17 Dose: 125 mls/hr Insulin Aspart (Novolog Vial Sliding Scale -) 1 vial SQ ACHS [facility]; Protocol Last Admin: 05/04/19 08:53 Dose: 2 units Insulin Detemir (Levemir Vial) 10 units SQ AM [facility] Last Admin: 05/04/19 10:27 Dose: Not Given Morphine Sulfate (Morphine Sulfate) 2 mg IVPUSH Q4H PRN PRN Reason: PAIN LEVEL 7 - 10 Last Admin: 05/04/19 08:57 Dose: 2 mg Mupirocin (Bactroban Ointment (For Decolonization) -) 1 applic NS BID [facility] Stop: 05/07/19 09:59 Last Admin: 05/04/19 11:02 Dose: 1 applic Nifedipine (Procardia Xl -) 60 mg PO DAILY [facility] Last Admin: 05/04/19 10:27 Dose: 60 mg Ondansetron HCl (Zofran Injection) 4 mg IVPUSH Q6H PRN PRN Reason: NAUSEA AND/OR VOMITING Last Admin: 05/03/19 22:03 Dose: 4 mg - Objective Vital Signs: Vital Signs Temperature 97.9 F 05/04/19 06:00 Pulse Rate 89 05/04/19 08:00 Respiratory Rate 18 05/04/19 08:00 Blood Pressure 167/92 05/04/19 08:00 O2 Sat by Pulse Oximetry (%) 100 05/03/19 21:00 Eyes: Yes: PERRL HENT: Yes: Atraumatic Neck: Yes: Supple Cardiovascular: Yes: Regular Rate and Rhythm, S1, S2 Respiratory: Yes: CTA Bilaterally Gastrointestinal: Yes: Normal Bowel Sounds, Soft. No: Tenderness Edema: No Additional Findings/Remarks: - Review of Systems Constitutional: denies Chills. denies: Fever Cardiovascular: denies Shortness of Breath, Chest Pain, denies: Palpitations Respiratory: denies SOB. denies: Cough, Hemoptysis, Orthopnea, PND Gastrointestinal: denies: Abdominal Pain, Constipation, Diarrhea, Melena, (+) Nausea, denies: Rectal Bleeding, Vomiting Genitourinary: denies: Dysuria, Hematuria Musculoskeletal: denies Joint Pain Neurological: denies: Dizziness, Headache, Seizure, Syncope Labs: CBC, BMP 05/04/19 06:15 05/04/19 06:15 Problem List - Problems (1) Abdominal pain Code(s): R10.9 - UNSPECIFIED ABDOMINAL PAIN (2) Diabetes Code(s): E11.9 - TYPE 2 DIABETES MELLITUS WITHOUT COMPLICATIONS (3) Elevated troponin Code(s): R79.89 - OTHER SPECIFIED ABNORMAL FINDINGS OF BLOOD CHEMISTRY (4) Hypertensive emergency Code(s): I16.1 - HYPERTENSIVE EMERGENCY (5) PAD (peripheral artery disease) Code(s): I73.9 - PERIPHERAL VASCULAR DISEASE, UNSPECIFIED (6) Renal dysfunction Code(s): N28.9 - DISORDER OF KIDNEY AND URETER, UNSPECIFIED (7) Uncontrolled diabetes mellitus Code(s): E11.65 - TYPE 2 DIABETES MELLITUS WITH HYPERGLYCEMIA Assessment/Plan 1. HTN - not adequately controlled 2. DM 3. PAD s/p toe amputation 4. Anemia 5. History of GI bleed 6. Demand ischemia PLAN: 1. Consider increasing Nifedipine to 90 mg QD if BP remains elevated 2. May consider Labetalol 200 mg BID if BP remains elevated 3. Echocardiography report noted 4. Surgery input noted Further plans are to follow Sekou Lopez MD
--- NOTE | 2019-05-04 12:19 | PN ---
Progress Note (short form) - Note Progress Note: surgery pt seen and examined. pain unchanged. requesting reuben mikael. vomiting saliva and gastric content, no bile. no bm. Selected Entries 05/04/19 05/04/19 06:00 12:00 Temperature 97.9 F Pulse Rate 89 Respiratory 16 Rate Blood Pressure 170/94 Laboratory Tests 05/03/19 05/04/19 05/04/19 17:30 06:15 06:15 WBC 17.2 H Neutrophils % 81.5 Carbon Dioxide 28 Creatinine 2.0 H 1.9 H abd- soft, epigastric tenderness. no guarding Plan- persistent abd pain. no acidosis. urine output > 2000. no fever. no tachycardia. requesting diet. improving cr after iv contrast. essentially negative cta. clinically not ischemic bowel. will give clear liquids. add carafate. concern for severe gastritis and pud. pt has had ablation of ulcers in the past. porphyria is an interesting consideration. exploratory surgery is not warranted. after less invasive w/u and endoscopy can consider diagnositic laparoscopy if pain persists and no diagnosis can be made.
[2019-05-04] MEDS: SUCRALFATE 1 GM/10 ML UNIT DOSE CUPS PO SCH ×3 (14:18→22:10)
[2019-05-04] MEDS: ONDANSETRON 4 MG/2 ML VIAL IVPUSH PRN (18:24)
[2019-05-04] MEDS: CHLORHEXIDINE GLUCONATE 4% CLEANSER FOR DECOLONIZATION TP SCH (22:10)
--- NOTE | 2019-05-04 22:29 | PN ---
Physical Exam: 58 AA M h/o GI bleeding (03/2018, requiring carafate), NIDDM, HTN, Chronic abdominal pain (H. pylori infection), and chronic anemia (unknown cause, recent colonoscopy and endoscopy scheduled for 05/07/19), who presents to the ER with 3 days of progressively worsening burning epigastric abdominal pain with associated hematemesis (dark, watery red) and melena. Patient evaluated by surgery service, was deemed to have severe gastritis/PUD, received Carafate w/ improvement of symptoms, now tolerating PO. BP improving. PE VSS GA calm, eating jello, AAOx3 HEENT NC/AT, EOMI, neck supple, dry MM Chest CTAB, no crackles/wheezing CVS S1, S2+, sinus tachycardia Abd soft, mild generalized tenderness to palpation, no guarding Ext NO LE edema Vital Signs - 24 hr 05/04/19 05/04/19 05/04/19 00:00 02:00 04:00 Temperature Pulse Rate 91 H 91 H 90 Respiratory 17 19 18 Rate Blood Pressure 157/82 152/99 154/88 05/04/19 05/04/19 05/04/19 06:00 08:00 10:00 Temperature 97.9 F Pulse Rate 90 89 89 Respiratory 15 18 20 Rate Blood Pressure 156/91 167/92 158/98 05/04/19 05/04/19 05/04/19 12:00 14:00 16:00 Temperature Pulse Rate 89 89 98 H Respiratory 16 16 16 Rate Blood Pressure 170/94 170/94 160/87 05/04/19 18:00 Temperature Pulse Rate 96 H Respiratory 20 Rate Blood Pressure 152/98 Laboratory Results - last 24 hr 05/04/19 05/04/19 05/04/19 06:15 06:15 06:15 WBC 17.2 H RBC 3.89 L Hgb 11.5 L Hct 35.6 MCV 91.6 MCH 29.6 MCHC 32.3 RDW 14.4 Plt Count 257 MPV 9.8 Absolute Neuts (auto) 14.0 H Neutrophils % 81.5 Lymphocytes % 12.0 D Monocytes % 6.1 Eosinophils % 0.2 D Basophils % 0.2 Nucleated RBC % 0 Sodium 144 Potassium 3.5 Chloride 110 H Carbon Dioxide 28 Anion Gap 6 L BUN 32.6 H Creatinine 1.9 H Est GFR (CKD-EPI)AfAm 44.68 Est GFR (CKD-EPI)NonAf 38.55 POC Glucometer Random Glucose 169 H Calcium 7.8 L Phosphorus 3.3 Magnesium 2.1 Total Bilirubin 1.5 H AST 47 H ALT 27 Alkaline Phosphatase 85 Creatine Kinase 1776 H Creatine Kinase Index 0.3 CK-MB (CK-2) 5.7 H Troponin I 0.06 H Total Protein 4.6 L Albumin 2.0 L 05/04/19 05/04/19 05/04/19 06:56 11:58 18:15 WBC RBC Hgb Hct MCV MCH MCHC RDW Plt Count MPV Absolute Neuts (auto) Neutrophils % Lymphocytes % Monocytes % Eosinophils % Basophils % Nucleated RBC % Sodium Potassium Chloride Carbon Dioxide Anion Gap BUN Creatinine Est GFR (CKD-EPI)AfAm Est GFR (CKD-EPI)NonAf POC Glucometer 173 140 276 Random Glucose Calcium Phosphorus Magnesium Total Bilirubin AST ALT Alkaline Phosphatase Creatine Kinase Creatine Kinase Index CK-MB (CK-2) Troponin I Total Protein Albumin 05/04/19 21:45 WBC RBC Hgb Hct MCV MCH MCHC RDW Plt Count MPV Absolute Neuts (auto) Neutrophils % Lymphocytes % Monocytes % Eosinophils % Basophils % Nucleated RBC % Sodium Potassium Chloride Carbon Dioxide Anion Gap BUN Creatinine Est GFR (CKD-EPI)AfAm Est GFR (CKD-EPI)NonAf POC Glucometer 173 Random Glucose Calcium Phosphorus Magnesium Total Bilirubin AST ALT Alkaline Phosphatase Creatine Kinase Creatine Kinase Index CK-MB (CK-2) Troponin I Total Protein Albumin Microbiology 05/02/19 00:15 Blood - Peripheral Venous Blood Culture - Preliminary NO GROWTH OBTAINED AFTER 48 HOURS, INCUBATION TO CONTINUE FOR 3 DAYS. 05/02/19 00:15 Blood - Peripheral Venous Blood Culture - Preliminary NO GROWTH OBTAINED AFTER 48 HOURS, INCUBATION TO CONTINUE FOR 3 DAYS. 05/02/19 13:20 Urine - Urine [place] Urine Culture - Final NO GROWTH OBTAINED Current Medications Generic Name Dose Route Start Last Admin Trade Name Freq PRN Reason Stop Dose Admin Chlorhexidine Gluconate 1 applic 05/02/19 22:00 05/04/19 22:10 Hibiclens For Decolonization - TP 1 applic HS [facility]EL Administration Ceftriaxone Sodium 1 gm/ 50 mls @ 100 mls/hr 05/02/19 10:00 05/04/19 10:23 Dextrose IVPB 100 mls/hr DAILY [facility] Administration Metronidazole 500 mg in 100 mls @ 100 mls/hr 05/02/19 10:00 05/04/19 18:09 Flagyl 500mg Premixed Ivpb - IVPB 100 mls/hr Q8H-IV [facility] Administration Pantoprazole Sodium 80 mg/ 100 mls @ 10 mls/hr 05/02/19 14:45 05/04/19 18:01 Sodium Chloride IVPB Not Given Q10H [facility] 8 MG/HR Potassium Chloride 30 meq/ 1,015 mls @ 125 mls/hr 05/04/19 08:03 05/04/19 18: 21 Sodium Chloride IVPB Not Given Q8H [facility] Insulin Aspart 1 vial 05/02/19 15:15 05/04/19 22:10 Novolog Vial Sliding Scale - SQ Not Given ACHS [facility] Protocol Insulin Detemir 10 units 05/04/19 07:00 05/04/19 10:27 Levemir Vial SQ Not Given AM [facility] Morphine Sulfate 2 mg 05/02/19 13:30 05/04/19 19:12 Morphine Sulfate IVPUSH 2 mg Q4H PRN Administration PAIN LEVEL 7 - 10 Mupirocin 1 applic 05/02/19 10:00 05/04/19 22:10 Bactroban Ointment (For Decolonization) - NS 05/07/19 09:59 1 applic BID [facility] Administration Nifedipine 60 mg 05/03/19 10:00 05/04/19 10:27 Procardia Xl - PO 60 mg DAILY [facility] Administration Ondansetron HCl 4 mg 05/02/19 10:07 05/04/19 18:24 Zofran Injection IVPUSH 4 mg Q6H PRN Administration NAUSEA AND/OR VOMITING Sucralfate 1 gm 05/04/19 14:00 05/04/19 22:10 Carafate Oral Suspension - PO 1 gm QID [facility] Administration A/P: 58 M h/o UGIB s/p carafate in the past, uncontrolled HTN w/ urgency, T2DM with hyperglycemia, being monitored in ICU for suspected UGIB d/t gastritis/PUD, s/p carafate w/ improvement of abdominal pain. Improving abdominal pain Likely 2/2 PUD/gastritis Cont. Ceft/Flagyl PPI BID Correct hypokalemia, monitor labs closely Cont. Carafate, soft foods/jello PRN Surgery consult: Dr. Weitzen UGIB hold AC, SCD for now, supportive measures as mentioned above, no EGD until patient stable GI evaluation: Dr Hernandez, Dr. Sanabria ICU Care: Dr. Jason T2DM not at goal, pt. critically ill need F/S 140-180 consider starting insulin drip at a rate of 1-2u/hr of regular insulin and titrate F/S Q4H HTN Off Nicardapine drip, now on Nifedipine 60mg PO Monitor BP DVT ppx: SCD for now GI ppx: PPI BID Management as per ICU team Visit type - Emergency Visit Emergency Visit: Yes ED Registration Date: 05/02/19 Care time: The patient presented to the Emergency Department on the above date and was hospitalized for further evaluation of their emergent condition. - New Patient This patient is new to me today: No - Critical Care Critical Care patient: Yes Total Critical Care Time (in minutes): 30 Critical Care Statement: The care of this patient involved high complexity decision making to prevent further life threatening deterioration of the patient 's condition and/or to evaluate & treat vital organ system(s) failure or risk of failure. - Discharge Referral Referred to [facility] No
[2019-05-05] MEDS: MORPHINE SULFATE 2 MG/ML VIAL IVPUSH PRN ×4 (00:06→22:03)
[2019-05-05] MEDS: POTASSIUM CHLORIDE 30 MEQ in SODIUM CHLORIDE 0.45% 1,000 ML IVPB SCH ×2 (00:30→08:19)
[2019-05-05] MEDS: PANTOPRAZOLE SODIUM 80 MG in SODIUM CHLORIDE 100 ML IVPB SCH ×2 (01:00→14:01)
[2019-05-05] MEDS: INSULIN SLIDING SCALE (NOVOLOG) 1 VIAL SQ SCH ×4 (06:50→22:02)
[2019-05-05 07:39] LABS: BASO % 0.2 % (0-2.0); EOS % 0.3 % (0-4.5); HEMATOCRIT 34.3 % (35.4-49); HEMOGLOBIN 11.3 GM/dL (11.7-16.9); LYMPH % 13.1 % (8-40); MCHC 33.1 g/dl (32.0-35.9); MEAN CELL VOLUME 90.8 fl (80-96); MEAN PLT VOLUME 9.7 fl (7.5-11.1); MONO % 6.6 % (3.8-10.2); NEUT % 79.8 % (42.8-82.8); PLATELET COUNT 247 K/MM3 (134-434); RBC 3.78 M/mm3 (4.00-5.60); RDW 14.3 % (11.9-15.9); WHITE BLOOD COUNT 15.9 K/mm3 (4.0-10.0)
[2019-05-05] MEDS ORDERED: PT OWN MED DRAWER 7, Y5N ONE (07:44)
[2019-05-05] MEDS ORDERED: cefTRIAXone SODIUM 1 GM VIAL ONE (07:44)
[2019-05-05] MEDS ORDERED: DEXTROSE 5%-WATER - 50 ML IVPB ONE (07:45)
--- NOTE | 2019-05-05 07:45 | PN ---
Physical Exam: SUBJECTIVE: Patient seen and examined at bedside- patient still having episodes of nausea/ and slight vomiting- patient moved his bowels twice and both were loose stools; feels his pain is around 10 percent better; he denies any CP/SOB/ or urinary issues tolerating clear liquids OBJECTIVE: Vital Signs Period Temp Pulse Resp BP Sys/Aceves Pulse Ox Last 24 Hr 97.5 F 87-100 10-20 144-170/82-98 98 GENERAL: The patient is awake, alert, and fully oriented, in no acute distress. EYES:PEERLA; EOMI; no scleral icterus. NECK: no JVD; no lymphadenopathy LUNGS: CTA B.L; no rales, rhonchi or wheezing HEART: Regular rate and rhythm, S1, S2 without murmur, rub or gallop. ABDOMEN: Soft, generalized mild tenderness upon palpation; +BS in all 4 quadrants no rebound/guarding EXTREMITIES: 2+ pulses, warm, well-perfused, no edema. PSYCH: Normal mood, normal affect. SKIN: Warm, dry, normal turgor, no rashes or lesions noted Laboratory Results - last 24 hr 05/04/19 05/04/19 05/04/19 06:15 11:58 18:15 POC Glucometer 140 276 Creatine Kinase 1776 H Creatine Kinase Index 0.3 CK-MB (CK-2) 5.7 H Troponin I 0.06 H 05/04/19 05/05/19 21:45 06:27 POC Glucometer 173 177 Creatine Kinase Creatine Kinase Index CK-MB (CK-2) Troponin I Active Medications Generic Name Dose Route Start Last Admin Trade Name Jaseq PRN Reason Stop Dose Admin Chlorhexidine Gluconate 1 applic 05/02/19 22:00 05/04/19 22:10 Hibiclens For Decolonization - TP 1 applic HS [facility] Administration Ceftriaxone Sodium 1 gm/ 50 mls @ 100 mls/hr 05/02/19 10:00 05/04/19 10:23 Dextrose IVPB 100 mls/hr DAILY [facility] Administration Metronidazole 500 mg in 100 mls @ 100 mls/hr 05/02/19 10:00 05/05/19 01:00 Flagyl 500mg Premixed Ivpb - IVPB 100 mls/hr Q8H-IV [facility] Administration Pantoprazole Sodium 80 mg/ 100 mls @ 10 mls/hr 05/02/19 14:45 05/05/19 01:00 Sodium Chloride IVPB 10 mls/hr Q10H [facility] Administration 8 MG/HR Potassium Chloride 30 meq/ 1,015 mls @ 125 mls/hr 05/04/19 08:03 05/05/19 00: 30 Sodium Chloride IVPB 125 mls/hr Q8H [facility] Administration Insulin Aspart 1 vial 05/02/19 15:15 05/05/19 06:50 Novolog Vial Sliding Scale - SQ 2 units ACHS [facility] Administration Protocol Insulin Detemir 10 units 05/04/19 07:00 05/04/19 10:27 Levemir Vial SQ Not Given AM [facility] Morphine Sulfate 2 mg 05/02/19 13:30 05/05/19 05:08 Morphine Sulfate IVPUSH 2 mg Q4H PRN Administration PAIN LEVEL 7 - 10 Mupirocin 1 applic 05/02/19 10:00 05/04/19 22:10 Bactroban Ointment (For Decolonization) - NS 05/07/19 09:59 1 applic BID [facility] Administration Nifedipine 60 mg 05/03/19 10:00 05/04/19 10:27 Procardia Xl - PO 60 mg DAILY [facility] Administration Ondansetron HCl 4 mg 05/02/19 10:07 05/04/19 18:24 Zofran Injection IVPUSH 4 mg Q6H PRN Administration NAUSEA AND/OR VOMITING Sucralfate 1 gm 05/04/19 14:00 05/04/19 22:10 Carafate Oral Suspension - PO 1 gm QID [facility] Administration ASSESSMENT/PLAN: 58M PMH DM, HTN, Anemia, BPH (s/p prostate procedure) who presents with nausea, vomiting, and lower abdominal pain. Patient was found to have hypertensive emergency. Patient continues to have abdominal pain and hypertension. Neuro Head CT negative to for acute pathology Stable and continue to monitor CV Hypertensive Urgency; resolved. Troponemia -Now off nicardipine drip. PO Procardia 60 mg given today. Cont to monitor BP; -Echo showed LVEF normal, moderate concentric hypertrophy, RV normal, and trace TR -Cardiology consulted; will increase procardia to 90mg daily Pulm stable; no issues GI Intractable Nausea/Vomiting; unknown etiology R/o Mesenteric Ischemia, unlikely R/o Salmonella -Still with abd pain + multiple episodes of vomiting; unable to tolerate PO.. Case discussed with GI and surg; concern for possible mesenteric ischemia however unlikely -Protonix drip 8 mcg/hr -NPO -IV Ceftriaxone/Flagyl (Day 4) -Abdominal u/s shows 7-8mm CBD and atrophy of the pancreatic body/tail -Per surg, no definite indication for exploratory surgery at this time. Renal: VAISHNAVI on CKD -Creatinine at baseline is 1.5 from earlier visit -Cr 2.0 --> 1.9 today Endo: IDDM -BGM/ISS ACHS -TSH low, Free T4 normal. Will need outpatient endocrinology follow up for thyroid gland lesion -Will hold long-acting insulin for now given patient is NPO and still unable to tolerate food -Cont to monitor BGMs ID Leukocytosis w/ possible biliary source -CTAP w/ contrast showed -Will given empiric coverage with Ceftriaxone and Flagyl - F: 1/2 NS @ 125 + KCl 30 Meq E: Monitor CMP N: clear liquids DVT: Heparin 5000 unit SQ TID GI: Protonix Drip Dispo: transfer to med-surg Problem List - Problems (1) Abdominal pain Code(s): R10.9 - UNSPECIFIED ABDOMINAL PAIN (2) Diabetes Code(s): E11.9 - TYPE 2 DIABETES MELLITUS WITHOUT COMPLICATIONS (3) Hypertensive emergency Code(s): I16.1 - HYPERTENSIVE EMERGENCY (4) Intractable vomiting Code(s): R11.10 - VOMITING, UNSPECIFIED Visit type - Emergency Visit Emergency Visit: Yes ED Registration Date: 05/02/19 Care time: The patient presented to the Emergency Department on the above date and was hospitalized for further evaluation of their emergent condition. - New Patient This patient is new to me today: Yes Date on this admission: 05/05/19 - Critical Care Critical Care patient: Yes Total Critical Care Time (in minutes): 35 Critical Care Statement: The care of this patient involved high complexity decision making to prevent further life threatening deterioration of the patient 's condition and/or to evaluate & treat vital organ system(s) failure or risk of failure. ATTENDING PHYSICIAN STATEMENT I saw and evaluated the patient. I reviewed the resident's note and discussed the case with the resident. I agree with the resident's findings and plan as documented. SUBJECTIVE: OBJECTIVE: ASSESSMENT AND PLAN:
--- NOTE | 2019-05-05 08:09 | PN ---
Progress Note (short form) - Note Progress Note: Pt tolerating clear liquids, no longer shaking. Had BMs. Abdomen now quite soft, no tenderness elicited. Dr Berumen's note appreciated. WBC still elevated but down further today: CBC WBC 15.9 K/mm3 (4.0-10.0) H 05/05/19 06:15 RBC 3.78 M/mm3 (4.00-5.60) L 05/05/19 06:15 Hgb 11.3 GM/dL (11.7-16.9) L 05/05/19 06:15 Hct 34.3 % (35.4-49) L 05/05/19 06:15 MCV 90.8 fl (80-96) 05/05/19 06:15 MCH 30.0 pg (25.7-33.7) 05/05/19 06:15 MCHC 33.1 g/dl (32.0-35.9) 05/05/19 06:15 RDW 14.3 % (11.9-15.9) 05/05/19 06:15 Plt Count 247 K/MM3 (134-434) 05/05/19 06:15 MPV 9.7 fl (7.5-11.1) 05/05/19 06:15 Absolute Neuts (auto) 12.7 K/mm3 (1.5-8.0) H 05/05/19 06:15 Neutrophils % 79.8 % (42.8-82.8) 05/05/19 06:15 Lymphocytes % 13.1 % (8-40) 05/05/19 06:15 Monocytes % 6.6 % (3.8-10.2) 05/05/19 06:15 Eosinophils % 0.3 % (0-4.5) 05/05/19 06:15 Basophils % 0.2 % (0-2.0) 05/05/19 06:15 Nucleated RBC % 0 % (0-0) 05/05/19 06:15 I suspect an enteric infection rather than ulcer disease, ischemia or porphyria ; he has improved with IV antibiotics. Stool cultures pending but they may be negative (obtained after several days of antibiotics). Dr Manuel will be back tomorrow.
[2019-05-05 08:13] LABS: ALBUMIN 1.9 g/dl (3.4-5.0); BILIRUBIN,TOTAL 0.2 mg/dL (0.2-1); BLOOD UREA NITROGEN 32.1 mg/dL (7-18); CALCIUM 7.5 mg/dL (8.5-10.1); CREATININE 1.9 mg/dL (0.55-1.3); PHOSPHOROUS 2.7 mg/dL (2.5-4.9); POTASSIUM 3.7 mmol/L (3.5-5.1); TOT PROT 4.4 g/dl (6.4-8.2)
[2019-05-05] MEDS ORDERED: NIFEdipine E.R. 30 MG TABLET (FP) PO ONE (09:06)
[2019-05-05] MEDS: NIFEdipine E.R. 30 MG TABLET (FP) PO SCH (09:09)
--- NOTE | 2019-05-05 09:16 | PN ---
Teaching Attending Note Name of Resident: Merlyn Rabago ATTENDING PHYSICIAN STATEMENT I saw and evaluated the patient. I reviewed the resident's note and discussed the case with the resident. I agree with the resident's findings and plan as documented. SUBJECTIVE: Patient seen and examined in the ICU. Awake and alert. Reports feeling a little better today. Less nausea and vomiting and abdominal pain. Tolerating some clears. Remains off Cardene drip. Intake & Output 05/02/19 05/03/19 05/04/19 05/05/19 23:59 23:59 23:59 23:59 Intake Total 3382 2300 1720 Output Total 2600 2800 300 Balance -2600 582 2000 1720 Weight 202 lb 13.204 oz 202 lb 13.204 oz 203 lb Last Vital Signs Temp Pulse Resp BP Pulse Ox 97.5 F L 90 15 160/97 98 05/05/19 02:00 05/05/19 04:00 05/05/19 08:45 05/05/19 04:00 05/05/19 08:45 Active Medications Chlorhexidine Gluconate (Hibiclens For Decolonization -) 1 applic TP HS [facility] Last Admin: 05/04/19 22:10 Dose: 1 applic Ceftriaxone Sodium 1 gm/ (Dextrose) 50 mls @ 100 mls/hr IVPB DAILY [facility] Last Admin: 05/04/19 10:23 Dose: 100 mls/hr Metronidazole (Flagyl 500mg Premixed Ivpb -) 500 mg in 100 mls @ 100 mls/hr IVPB Q8H-IV [facility] Last Admin: 05/05/19 01:00 Dose: 100 mls/hr Pantoprazole Sodium 80 mg/ (Sodium Chloride) 100 mls @ 10 mls/hr IVPB Q10H [facility] Last Admin: 05/05/19 01:00 Dose: 10 mls/hr Potassium Chloride 30 meq/ (Sodium Chloride) 1,015 mls @ 125 mls/hr IVPB Q8H [facility] Last Admin: 05/05/19 00:30 Dose: 125 mls/hr Insulin Aspart (Novolog Vial Sliding Scale -) 1 vial SQ ACHS [facility]; Protocol Last Admin: 05/05/19 06:50 Dose: 2 units Insulin Detemir (Levemir Vial) 10 units SQ AM [facility] Last Admin: 05/04/19 10:27 Dose: Not Given Morphine Sulfate (Morphine Sulfate) 2 mg IVPUSH Q4H PRN PRN Reason: PAIN LEVEL 7 - 10 Last Admin: 05/05/19 05:08 Dose: 2 mg Mupirocin (Bactroban Ointment (For Decolonization) -) 1 applic NS BID [facility] Stop: 05/07/19 09:59 Last Admin: 05/04/19 22:10 Dose: 1 applic Nifedipine (Procardia Xl -) 60 mg PO DAILY [facility] Stop: 05/05/19 13:00 Last Admin: 05/04/19 10:27 Dose: 60 mg Nifedipine (Procardia Xl -) 90 mg PO DAILY [facility] Ondansetron HCl (Zofran Injection) 4 mg IVPUSH Q6H PRN PRN Reason: NAUSEA AND/OR VOMITING Last Admin: 05/04/19 18:24 Dose: 4 mg Sucralfate (Carafate Oral Suspension -) 1 gm PO QID [facility] Last Admin: 05/04/19 22:10 Dose: 1 gm GENERAL: Awake, alert, and fully oriented HEAD: Normal with no signs of trauma. EYES: PERRLA, EOMI, sclera anicteric, conjunctiva clear. EARS, NOSE, THROAT: Moist mucous membranes. NECK: Normal range of motion, supple without lymphadenopathy, JVD, or masses. LUNGS: Breath sounds equal, clear to auscultation bilaterally. HEART: Regular rate and rhythm, normal S1 and S2 without murmur, rub or gallop. ABDOMEN: Soft, RLQ/LLQ tenderness, not distended, normoactive bowel sounds. MUSCULOSKELETAL: Normal range of motion at all joints. No CVA tenderness. UPPER EXTREMITIES: 2+ pulses, warm, well-perfused. LOWER EXTREMITIES: 2+ pulses, warm, well-perfused. No peripheral edema. NEUROLOGICAL: Cranial nerves II-XII intact. Normal speech. Laboratory Results - last 24 hr 05/04/19 05/04/19 05/04/19 11:58 18:15 21:45 WBC RBC Hgb Hct MCV MCH MCHC RDW Plt Count MPV Absolute Neuts (auto) Neutrophils % Lymphocytes % Monocytes % Eosinophils % Basophils % Nucleated RBC % Sodium Potassium Chloride Carbon Dioxide Anion Gap BUN Creatinine Est GFR (CKD-EPI)AfAm Est GFR (CKD-EPI)NonAf POC Glucometer 140 276 173 Random Glucose Calcium Phosphorus Magnesium Total Bilirubin AST ALT Alkaline Phosphatase Total Protein Albumin 05/05/19 05/05/19 05/05/19 06:00 06:15 06:27 WBC 15.9 H RBC 3.78 L Hgb 11.3 L Hct 34.3 L MCV 90.8 MCH 30.0 MCHC 33.1 RDW 14.3 Plt Count 247 MPV 9.7 Absolute Neuts (auto) 12.7 H Neutrophils % 79.8 Lymphocytes % 13.1 Monocytes % 6.6 Eosinophils % 0.3 Basophils % 0.2 Nucleated RBC % 0 Sodium 144 Potassium 3.7 Chloride 110 H Carbon Dioxide 28 Anion Gap 6 L BUN 32.1 H Creatinine 1.9 H Est GFR (CKD-EPI)AfAm 44.68 Est GFR (CKD-EPI)NonAf 38.55 POC Glucometer 177 Random Glucose 198 H Calcium 7.5 L Phosphorus 2.7 Magnesium 2.0 Total Bilirubin 0.2 AST 40 H ALT 24 Alkaline Phosphatase 74 Total Protein 4.4 L Albumin 1.9 L ASSESSMENT/PLAN: Hypertensive Urgency DM HTN Anemia BPH VAISHNAVI Abdominal pain: Etiology to be further delineated Medication non-compliance intern off Cardene drip PO as tolerated O2 as needed VTE prophylaxis IV Hydration Floor Dr Jason
[2019-05-05] MEDS: CEFTRIAXONE 1 GM in DEXTROSE 5%-WATER - 50 ML IVPB SCH (09:18)
[2019-05-05] MEDS: MUPIROCIN 2% TOPICAL OINTMENT FOR DECOLONIZATION NS SCH ×2 (09:20→22:02)
[2019-05-05] MEDS: SUCRALFATE 1 GM/10 ML UNIT DOSE CUPS PO SCH ×4 (09:22→22:02)
--- NOTE | 2019-05-05 09:40 | PN ---
Progress Note (short form) - Note Progress Note: Renal follow up for hypertensive urgency and VAISHNAVI Seen and examined in the ICU sleeping less abdominal pain making urine BP remains elevated still Vital Signs Temperature 97.8 F 05/05/19 08:35 Pulse Rate 91 H 05/05/19 08:35 Respiratory Rate 15 05/05/19 08:45 Blood Pressure 167/94 05/05/19 08:35 O2 Sat by Pulse Oximetry (%) 98 05/05/19 08:45 Intake & Output 05/02/19 05/03/19 05/04/19 05/05/19 23:59 23:59 23:59 23:59 Intake Total 3382 2300 1720 Output Total 2600 2800 300 Balance -2600 582 2000 1720 Weight 92 kg 92 kg 92.079 kg Mild distress from pain neck supple RRR CTA soft, + tenderness no LE edema CBC, BMP 05/05/19 06:15 05/05/19 06:00 Current Medications Chlorhexidine Gluconate (Hibiclens For Decolonization -) 1 applic TP HS [facility] Last Admin: 05/04/19 22:10 Dose: 1 applic Ceftriaxone Sodium 1 gm/ (Dextrose) 50 mls @ 100 mls/hr IVPB DAILY [facility] Last Admin: 05/05/19 09:18 Dose: 100 mls/hr Metronidazole (Flagyl 500mg Premixed Ivpb -) 500 mg in 100 mls @ 100 mls/hr IVPB Q8H-IV [facility] Last Admin: 05/05/19 09:19 Dose: 100 mls/hr Pantoprazole Sodium 80 mg/ (Sodium Chloride) 100 mls @ 10 mls/hr IVPB Q10H [facility] Last Admin: 05/05/19 01:00 Dose: 10 mls/hr Potassium Chloride 30 meq/ (Sodium Chloride) 1,015 mls @ 125 mls/hr IVPB Q8H [facility] Last Admin: 05/05/19 08:19 Dose: 125 mls/hr Insulin Aspart (Novolog Vial Sliding Scale -) 1 vial SQ ACHS [facility]; Protocol Last Admin: 05/05/19 06:50 Dose: 2 units Insulin Detemir (Levemir Vial) 10 units SQ AM [facility] Last Admin: 05/04/19 10:27 Dose: Not Given Morphine Sulfate (Morphine Sulfate) 2 mg IVPUSH Q4H PRN PRN Reason: PAIN LEVEL 7 - 10 Last Admin: 05/05/19 05:08 Dose: 2 mg Mupirocin (Bactroban Ointment (For Decolonization) -) 1 applic NS BID [facility] Stop: 05/07/19 09:59 Last Admin: 05/05/19 09:20 Dose: 1 applic Nifedipine (Procardia Xl -) 60 mg PO DAILY [facility] Stop: 05/05/19 13:00 Last Admin: 05/05/19 09:09 Dose: 60 mg Nifedipine (Procardia Xl -) 90 mg PO DAILY [facility] Ondansetron HCl (Zofran Injection) 4 mg IVPUSH Q6H PRN PRN Reason: NAUSEA AND/OR VOMITING Last Admin: 05/04/19 18:24 Dose: 4 mg Sucralfate (Carafate Oral Suspension -) 1 gm PO QID [facility] Last Admin: 05/05/19 09:22 Dose: 1 gm Impression 1. VAISHNAVI 2. HTN urgency 3. DM 4. anemia 5. bph 6. CKD 7. Abdominal pain Plan Renal function stable. Can D/c IVF today BP improved but remains elevated. Can consider starting Labetalol PO BID. Nifedipine ER was increased this am by ICU team. Give Oral Nifedpine ER today goal SBP < 160 for now. Would avoid JOELLE/ARB for now given VAISHNAVI and recent contrast expousre pain control as needed continue GI/Surgical work up Thank you Espinoza Mcconnell DO
--- NOTE | 2019-05-05 10:49 | PN ---
Progress Note, Physician Chief Complaint: Events noted BP elevated still Intermittent nausea History of Present Illness: Patient was seen and examined. Awake and alert. Chart was reviewed Denies chest pain, SOB or palpitations - Current Medication List Current Medications: Active Medications Chlorhexidine Gluconate (Hibiclens For Decolonization -) 1 applic TP HS [facility] Last Admin: 05/04/19 22:10 Dose: 1 applic Ceftriaxone Sodium 1 gm/ (Dextrose) 50 mls @ 100 mls/hr IVPB DAILY [facility] Last Admin: 05/05/19 09:18 Dose: 100 mls/hr Metronidazole (Flagyl 500mg Premixed Ivpb -) 500 mg in 100 mls @ 100 mls/hr IVPB Q8H-IV [facility] Last Admin: 05/05/19 09:19 Dose: 100 mls/hr Pantoprazole Sodium 80 mg/ (Sodium Chloride) 100 mls @ 10 mls/hr IVPB Q10H [facility] Last Admin: 05/05/19 01:00 Dose: 10 mls/hr Potassium Chloride 30 meq/ (Sodium Chloride) 1,015 mls @ 125 mls/hr IVPB Q8H [facility] Last Admin: 05/05/19 08:19 Dose: 125 mls/hr Insulin Aspart (Novolog Vial Sliding Scale -) 1 vial SQ ACHS [facility]; Protocol Last Admin: 05/05/19 06:50 Dose: 2 units Insulin Detemir (Levemir Vial) 10 units SQ AM [facility] Last Admin: 05/04/19 10:27 Dose: Not Given Morphine Sulfate (Morphine Sulfate) 2 mg IVPUSH Q4H PRN PRN Reason: PAIN LEVEL 7 - 10 Last Admin: 05/05/19 05:08 Dose: 2 mg Mupirocin (Bactroban Ointment (For Decolonization) -) 1 applic NS BID [facility] Stop: 05/07/19 09:59 Last Admin: 05/05/19 09:20 Dose: 1 applic Nifedipine (Procardia Xl -) 60 mg PO DAILY [facility] Stop: 05/05/19 13:00 Last Admin: 05/05/19 09:09 Dose: 60 mg Nifedipine (Procardia Xl -) 90 mg PO DAILY [facility] Ondansetron HCl (Zofran Injection) 4 mg IVPUSH Q6H PRN PRN Reason: NAUSEA AND/OR VOMITING Last Admin: 01/04/20 18:24 Dose: 4 mg Sucralfate (Carafate Oral Suspension -) 1 gm PO QID [facility] Last Admin: 05/05/19 09:22 Dose: 1 gm - Objective Vital Signs: Vital Signs Temperature 97.8 F 05/05/19 08:35 Pulse Rate 90 05/05/19 10:00 Respiratory Rate 16 05/05/19 10:00 Blood Pressure 166/92 05/05/19 10:00 O2 Sat by Pulse Oximetry (%) 98 05/05/19 09:49 Eyes: Yes: PERRL HENT: Yes: Atraumatic Neck: Yes: Supple Cardiovascular: Yes: Regular Rate and Rhythm, S1, S2 Respiratory: Yes: CTA Bilaterally Gastrointestinal: Yes: Normal Bowel Sounds, Soft. No: Tenderness Edema: No Additional Findings/Remarks: - Review of Systems Constitutional: denies Chills. denies: Fever Cardiovascular: denies Shortness of Breath, Chest Pain, denies: Palpitations Respiratory: denies SOB. denies: Cough, Hemoptysis, Orthopnea, PND Gastrointestinal: denies: Abdominal Pain, Constipation, Diarrhea, Melena, (+) Nausea, denies: Rectal Bleeding, Vomiting Genitourinary: denies: Dysuria, Hematuria Musculoskeletal: denies Joint Pain Neurological: denies: Dizziness, Headache, Seizure, Syncope Labs: CBC, BMP 05/05/19 06:15 05/05/19 06:00 INR, PTT INR 1.11 (0.83-1.09) H 05/02/19 08:25 Problem List - Problems (1) Abdominal pain Code(s): R10.9 - UNSPECIFIED ABDOMINAL PAIN (2) Diabetes Code(s): E11.9 - TYPE 2 DIABETES MELLITUS WITHOUT COMPLICATIONS (3) Elevated troponin Code(s): R79.89 - OTHER SPECIFIED ABNORMAL FINDINGS OF BLOOD CHEMISTRY (4) Hypertensive emergency Code(s): I16.1 - HYPERTENSIVE EMERGENCY (5) PAD (peripheral artery disease) Code(s): I73.9 - PERIPHERAL VASCULAR DISEASE, UNSPECIFIED (6) Renal dysfunction Code(s): N28.9 - DISORDER OF KIDNEY AND URETER, UNSPECIFIED (7) Uncontrolled diabetes mellitus Code(s): E11.65 - TYPE 2 DIABETES MELLITUS WITH HYPERGLYCEMIA Assessment/Plan 1. HTN - not adequately controlled 2. DM 3. PAD s/p toe amputation 4. Anemia 5. History of GI bleed 6. Demand ischemia 7. Leukocytosis PLAN: 1. Nifedipine increased to 90 mg QD as BP remains elevated 2. May consider Labetalol 200 mg BID if need further BP control 3. Surgery input noted 4. Empiric antibiotics Further plans are to follow. Discussed with ICU team Drs. Romero and Laura to resume care Monday Sekou Lopez MD
--- NOTE | 2019-05-05 11:37 | PN ---
Progress Note (short form) - Note Progress Note: VAscular Surgery CT ABD and pelvis reviewed. 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 The SMA, HORACIO are patent with no disease. Highly unlikely this is mesenteric ischemia. GI note reviewed. Seems infectious. WBC getting better. Cont medical managament. Kory Joel DO
--- NOTE | 2019-05-05 14:32 | PN ---
Progress Note (short form) - Note Progress Note: surgery pt better today. tolerating some liquids. less vomiting. less pain. brown bm large abd- soft, minimal right sided tenderness, less upper tenderness. improved wbc improving Plan- gi note consistent with infectious etiology. non surgical abd. not ischemic bowel. will be available.
--- NOTE | 2019-05-05 20:33 | PN ---
Physical Exam: 58 AA M h/o GI bleeding (03/2018, requiring carafate), NIDDM, HTN, Chronic abdominal pain (H. pylori infection), and chronic anemia (unknown cause, recent colonoscopy and endoscopy scheduled for 05/07/19), who presents to the ER with 3 days of progressively worsening burning epigastric abdominal pain with associated hematemesis (dark, watery red) and melena. Patient nausea/vomiting improving, moving 1-2 BM/day no blood, on sucrafate and PPI w/ improvement of sx. PE GA calm, AAOx3, speaking in full sentences HEENT NC/AT, EOMI, neck supple, dry MM Chest CTAB, no crackles/wheezing CVS S1, S2+, sinus tachycardia Abd soft, NT, no guarding Ext NO LE edema Vital Signs - 24 hr 05/04/19 05/04/19 05/05/19 21:00 22:00 00:00 Temperature Pulse Rate 88 87 Respiratory 10 18 14 Rate Blood Pressure 144/83 156/86 O2 Sat by Pulse 98 Oximetry (%) 05/05/19 05/05/19 05/05/19 02:00 04:00 08:35 Temperature 97.5 F L 97.8 F Pulse Rate 100 H 90 91 H Respiratory 12 15 15 Rate Blood Pressure 160/82 160/97 167/94 O2 Sat by Pulse Oximetry (%) 05/05/19 05/05/19 05/05/19 08:45 09:49 10:00 Temperature Pulse Rate 90 Respiratory 15 16 Rate Blood Pressure 166/92 O2 Sat by Pulse 98 98 Oximetry (%) 05/05/19 05/05/19 05/05/19 12:00 14:00 16:00 Temperature 98.9 F Pulse Rate 92 H 92 H Respiratory 12 18 Rate Blood Pressure 118/70 163/84 152/79 O2 Sat by Pulse Oximetry (%) 05/05/19 18:00 Temperature 99.3 F Pulse Rate 88 Respiratory 16 Rate Blood Pressure 143/79 O2 Sat by Pulse Oximetry (%) Laboratory Results - last 24 hr 05/03/19 05/04/19 05/05/19 20:00 21:45 06:00 WBC RBC Hgb Hct MCV MCH MCHC RDW Plt Count MPV Absolute Neuts (auto) Neutrophils % Lymphocytes % Monocytes % Eosinophils % Basophils % Nucleated RBC % Sodium 144 Potassium 3.7 Chloride 110 H Carbon Dioxide 28 Anion Gap 6 L BUN 32.1 H Creatinine 1.9 H Est GFR (CKD-EPI)AfAm 44.68 Est GFR (CKD-EPI)NonAf 38.55 POC Glucometer 173 Random Glucose 198 H Calcium 7.5 L Phosphorus 2.7 Magnesium 2.0 Total Bilirubin 0.2 AST 40 H ALT 24 Alkaline Phosphatase 74 Total Protein 4.4 L Albumin 1.9 L Urine Eosinophils None seen 05/05/19 05/05/19 05/05/19 06:15 06:27 11:14 WBC 15.9 H RBC 3.78 L Hgb 11.3 L Hct 34.3 L MCV 90.8 MCH 30.0 MCHC 33.1 RDW 14.3 Plt Count 247 MPV 9.7 Absolute Neuts (auto) 12.7 H Neutrophils % 79.8 Lymphocytes % 13.1 Monocytes % 6.6 Eosinophils % 0.3 Basophils % 0.2 Nucleated RBC % 0 Sodium Potassium Chloride Carbon Dioxide Anion Gap BUN Creatinine Est GFR (CKD-EPI)AfAm Est GFR (CKD-EPI)NonAf POC Glucometer 177 234 Random Glucose Calcium Phosphorus Magnesium Total Bilirubin AST ALT Alkaline Phosphatase Total Protein Albumin Urine Eosinophils 05/05/19 16:40 WBC RBC Hgb Hct MCV MCH MCHC RDW Plt Count MPV Absolute Neuts (auto) Neutrophils % Lymphocytes % Monocytes % Eosinophils % Basophils % Nucleated RBC % Sodium Potassium Chloride Carbon Dioxide Anion Gap BUN Creatinine Est GFR (CKD-EPI)AfAm Est GFR (CKD-EPI)NonAf POC Glucometer 225 Random Glucose Calcium Phosphorus Magnesium Total Bilirubin AST ALT Alkaline Phosphatase Total Protein Albumin Urine Eosinophils Current Medications Generic Name Dose Route Start Last Admin Trade Name Mata PRN Reason Stop Dose Admin Chlorhexidine Gluconate 1 applic 05/02/19 22:00 05/04/19 22:10 Hibiclens For Decolonization - TP 1 applic HS [facility] Administration Ceftriaxone Sodium 1 gm/ 50 mls @ 100 mls/hr 05/02/19 10:00 05/05/19 09:18 Dextrose IVPB 100 mls/hr DAILY [facility] Administration Metronidazole 500 mg in 100 mls @ 100 mls/hr 05/02/19 10:00 05/05/19 17:31 Flagyl 500mg Premixed Ivpb - IVPB 100 mls/hr Q8H-IV [facility] Administration Pantoprazole Sodium 80 mg/ 100 mls @ 10 mls/hr 05/02/19 14:45 05/05/19 14:01 Sodium Chloride IVPB 10 mls/hr Q10H [facility] Administration 8 MG/HR Insulin Aspart 1 vial 05/02/19 15:15 05/05/19 17:31 Novolog Vial Sliding Scale - SQ Not Given ACHS [facility] Protocol Insulin Detemir 10 units 05/04/19 07:00 05/04/19 10:27 Levemir Vial SQ Not Given AM [facility] Morphine Sulfate 2 mg 05/02/19 13:30 05/05/19 13:57 Morphine Sulfate IVPUSH 2 mg Q4H PRN Administration PAIN LEVEL 7 - 10 Mupirocin 1 applic 05/02/19 10:00 05/05/19 09:20 Bactroban Ointment (For Decolonization) - NS 05/07/19 09:59 1 applic BID [facility] Administration Nifedipine 90 mg 05/06/19 10:00 Procardia Xl - PO DAILY [facility] Ondansetron HCl 4 mg 05/02/19 10:07 05/04/19 18:24 Zofran Injection IVPUSH 4 mg Q6H PRN Administration NAUSEA AND/OR VOMITING Sucralfate 1 gm 05/04/19 14:00 05/05/19 17:31 Carafate Oral Suspension - PO 1 gm QID [facility] Administration A/P: 58 M h/o UGIB s/p carafate in the past, uncontrolled HTN w/ urgency, T2DM with hyperglycemia, being monitored in ICU for suspected UGIB d/t gastritis/PUD, s/p carafate w/ improvement of abdominal pain. Improving abdominal pain Likely 2/2 PUD/gastritis, less likely ischemia, ?porphyria Cont. Ceft/Flagyl PPI BID Correct hypokalemia, monitor labs closely Cont. Carafate, soft foods/jello PRN Surgery consult: Dr. Berumen GI consult: Dr. Gonzales/Dr. Sanchez UGIB hold AC, SCD for now, supportive measures as mentioned above, no EGD until patient stable GI consult: Dr. Gonzales/Dr. Sanchez ICU Care: Dr. Jason T2DM not at goal, pt. critically ill need F/S 140-180 consider starting insulin drip at a rate of 1-2u/hr of regular insulin and titrate F/S Q4H HTN Off Nicardapine drip, now on Nifedipine 60mg PO Monitor BP DVT ppx: SCD for now GI ppx: PPI BID Management as per ICU team Visit type - Emergency Visit Emergency Visit: Yes ED Registration Date: 05/02/19 Care time: The patient presented to the Emergency Department on the above date and was hospitalized for further evaluation of their emergent condition. - New Patient This patient is new to me today: No - Critical Care Critical Care patient: No - Discharge Referral Referred to [facility] Med P.C.: No
[2019-05-05] MEDS: CHLORHEXIDINE GLUCONATE 4% CLEANSER FOR DECOLONIZATION TP SCH (22:02)
[2019-05-05] MEDS ORDERED: ONDANSETRON 4 MG/2 ML VIAL IVPUSH PRN (23:45)
[2019-05-06] MEDS: MORPHINE SULFATE 2 MG/ML VIAL IVPUSH PRN ×2 (01:50→10:40)
[2019-05-06] MEDS: INSULIN SLIDING SCALE (NOVOLOG) 1 VIAL SQ SCH ×4 (06:23→21:27)
[2019-05-06] MEDS: INSULIN (LEVEMIR) 100 UNITS/ML UNITS SQ SCH (06:23)
[2019-05-06] MEDS ORDERED: INSULIN (NOVOLOG) ASPART 100 UNITS/ML 10ML VIAL ONE (06:35)
[2019-05-06 08:17] LABS: BASO % 0.2 % (0-2.0); EOS % 0.3 % (0-4.5); HEMATOCRIT 33.1 % (35.4-49); HEMOGLOBIN 10.9 GM/dL (11.7-16.9); MCH 29.8 pg (25.7-33.7); MCHC 33.1 g/dl (32.0-35.9); MEAN CELL VOLUME 90.1 fl (80-96); MEAN PLT VOLUME 9.6 fl (7.5-11.1); MONO % 6.4 % (3.8-10.2); NEUT % 74.1 % (42.8-82.8); PLATELET COUNT 217 K/MM3 (134-434); RBC 3.67 M/mm3 (4.00-5.60); RDW 13.8 % (11.9-15.9); WHITE BLOOD COUNT 11.9 K/mm3 (4.0-10.0)
[2019-05-06 08:26] LABS: ALBUMIN 1.8 g/dl (3.4-5.0); BILIRUBIN,TOTAL 0.2 mg/dL (0.2-1); CALCIUM 7.5 mg/dL (8.5-10.1); CREATININE 1.8 mg/dL (0.55-1.3); MAGNESIUM 1.9 mg/dL (1.8-2.4); PHOSPHOROUS 2.6 mg/dL (2.5-4.9); POTASSIUM 3.6 mmol/L (3.5-5.1); TOT PROT 4.3 g/dl (6.4-8.2)
[2019-05-06] MEDS ORDERED: cefTRIAXone SODIUM 1 GM VIAL ONE (09:27)
[2019-05-06] MEDS ORDERED: DEXTROSE 5%-WATER - 50 ML IVPB ONE (09:28)
[2019-05-06] MEDS ORDERED: MUPIROCIN 2% TOPICAL OINTMENT FOR DECOLONIZATION NS SCH (10:00)
[2019-05-06] MEDS ORDERED: NIFEdipine E.R. 90 MG TABLET (FP) PO SCH (10:00)
--- NOTE | 2019-05-06 10:11 | PN ---
Progress Note, Physician History of Present Illness: The patient is a 58 year old black male, with a significant past medical history of GI bleed (03/2018, requiring carafate), dm, htn, chronic abdominal pain, ?h pylori, ?peripheral neuropathy, PAD (s/p bilateral 5th toe amputations ) and anemia (unknown cause, ?recent colonoscopy and endoscopy scheduled for 11/17), who presents to the emergency department with 3 days of progressively worsening burning epigastric abdominal pain with associated hematemesis (dark, watery red) and melena. As per patient, his symptoms initially onset yesterday but, worsened yesterday with associated subjective fevers, chills, and diaphoresis. He notes his symptoms to be similar to his previous episode of a GI bleed (unknown if upper or lower). He denies any recent fevers, chills, headache or dizziness. He denies any recent chest pain or shortness of breath. He denies any recent dysuria, frequency, urgency or hematuria. Pt denies personal or family hx CAD or CVA. Never smoked; occasional glass of alcohol (never a heavy drinker); denies illicit drugs. Walks regularly; denies chest pain or dyspnea. Allergies: NKA GI: Dr. Manuel - Current Medication List Current Medications: Active Medications Ceftriaxone Sodium 1 gm/ (Dextrose) 50 mls @ 100 mls/hr IVPB DAILY [facility] Metronidazole (Flagyl 500mg Premixed Ivpb -) 500 mg in 100 mls @ 100 mls/hr IVPB Q8H-IV [facility] Last Admin: 05/06/19 02:45 Dose: 100 mls/hr Pantoprazole Sodium 80 mg/ (Sodium Chloride) 100 mls @ 10 mls/hr IVPB Q10H [facility] Insulin Aspart (Novolog Vial Sliding Scale -) 1 vial SQ ACHS [facility]; Protocol Last Admin: 05/06/19 06:23 Dose: 2 units Insulin Detemir (Levemir Vial) 10 units SQ AM [facility] Last Admin: 05/06/19 06:23 Dose: 10 units Morphine Sulfate (Morphine Sulfate) 2 mg IVPUSH Q4H PRN PRN Reason: PAIN LEVEL 7 - 10 Last Admin: 05/06/19 01:50 Dose: 2 mg Nifedipine (Procardia Xl -) 90 mg PO DAILY [facility] Ondansetron HCl (Zofran Injection) 4 mg IVPUSH Q6H PRN PRN Reason: NAUSEA AND/OR VOMITING Last Admin: 05/06/19 04:48 Dose: 4 mg Sucralfate (Carafate Oral Suspension -) 1 gm PO QID [facility] - Objective Vital Signs: Vital Signs Temperature 98.4 F 05/06/19 05:55 Pulse Rate 92 H 05/06/19 05:55 Respiratory Rate 18 05/06/19 05:55 Blood Pressure 160/80 05/06/19 05:55 O2 Sat by Pulse Oximetry (%) 99 05/05/19 21:00 Eyes: Yes: WNL, Conjunctiva Clear, EOM Intact HENT: Yes: WNL, Atraumatic, Normocephalic Neck: Yes: WNL, Supple, Trachea Midline Cardiovascular: Yes: WNL, Regular Rate and Rhythm Respiratory: Yes: WNL, Regular, CTA Bilaterally Gastrointestinal: Yes: WNL, Normal Bowel Sounds Genitourinary: Yes: WNL Musculoskeletal: Yes: WNL Edema: No Integumentary: Yes: WNL Neurological: Yes: WNL, Alert, Oriented ...Motor Strength: WNL Psychiatric: Yes: WNL Labs: CBC, BMP 05/06/19 07:08 05/06/19 07:08 INR, PTT INR 1.11 (0.83-1.09) H 05/02/19 08:25 Problem List - Problems (1) Abdominal pain Code(s): R10.9 - UNSPECIFIED ABDOMINAL PAIN (2) Diabetes Code(s): E11.9 - TYPE 2 DIABETES MELLITUS WITHOUT COMPLICATIONS (3) Elevated troponin Code(s): R79.89 - OTHER SPECIFIED ABNORMAL FINDINGS OF BLOOD CHEMISTRY (4) [place] cardiac risk >20% in next 10 years Code(s): Z91.89 - OT PERSONAL RISK FACTORS, NOT ELSEWHERE CLASSIFIED (5) Hypertensive emergency Code(s): I16.1 - HYPERTENSIVE EMERGENCY (6) Intractable vomiting Code(s): R11.10 - VOMITING, UNSPECIFIED (7) PAD (peripheral artery disease) Code(s): I73.9 - PERIPHERAL VASCULAR DISEASE, UNSPECIFIED (8) Periumbilical pain Code(s): R10.33 - PERIUMBILICAL PAIN (9) Renal dysfunction Code(s): N28.9 - DISORDER OF KIDNEY AND URETER, UNSPECIFIED (10) Uncontrolled diabetes mellitus Code(s): E11.65 - TYPE 2 DIABETES MELLITUS WITH HYPERGLYCEMIA Assessment/Plan 1. HTN - not adequately controlled 2. DM 3. PAD s/p toe amputation 4. Anemia 5. History of GI bleed 6. Demand ischemia 7. Leukocytosis PLAN: 1. Nifedipine increased to 90 mg QD as BP remains elevated will start coreg 6.25 BID 2. May consider Labetalol 200 mg BID if need further BP control 3. Surgery input noted 4. Empiric antibiotics
[2019-05-06] MEDS: SUCRALFATE 1 GM/10 ML UNIT DOSE CUPS PO SCH ×4 (10:29→21:27)
[2019-05-06] MEDS: NIFEdipine E.R. 90 MG TABLET (FP) PO SCH (10:29)
[2019-05-06] MEDS: CEFTRIAXONE 1 GM in DEXTROSE 5%-WATER - 50 ML IVPB SCH (10:30)
[2019-05-06] MEDS: PANTOPRAZOLE SODIUM 80 MG in SODIUM CHLORIDE 100 ML IVPB SCH ×3 (11:52→23:28)
--- NOTE | 2019-05-06 13:09 | PN ---
Progress Note, Physician History of Present Illness: Pt seen and examined at bedside. He is more awake and alert today. He denies shortness of breath. He is tolerating liquids. - Current Medication List Current Medications: Active Medications Carvedilol (Coreg -) 6.25 mg PO BID [facility] [place] Ceftriaxone Sodium 1 gm/ (Dextrose) 50 mls @ 100 mls/hr IVPB DAILY [facility] [place] Last Admin: 05/06/19 10:30 Dose: 100 mls/hr Metronidazole (Flagyl 500mg Premixed Ivpb -) 500 mg in 100 mls @ 100 mls/hr IVPB Q8H-IV [facility] [place] Last Admin: 05/06/19 10:30 Dose: 100 mls/hr Pantoprazole Sodium 80 mg/ (Sodium Chloride) 100 mls @ 10 mls/hr IVPB Q10H [facility] Last Admin: 05/06/19 11:52 Dose: 10 mls/hr Insulin Aspart (Novolog Vial Sliding Scale -) 1 vial SQ ACHS [facility] [place]; Protocol Last Admin: 05/06/19 11:53 Dose: Not Given Insulin Detemir (Levemir Vial) 10 units SQ AM [facility] Last Admin: 05/06/19 06:23 Dose: 10 units Morphine Sulfate (Morphine Sulfate) 2 mg IVPUSH Q4H PRN PRN Reason: PAIN LEVEL 7 - 10 Last Admin: 05/06/19 10:40 Dose: 2 mg Nifedipine (Procardia Xl -) 90 mg PO DAILY [facility] [place] Last Admin: 05/06/19 10:29 Dose: 90 mg Ondansetron HCl (Zofran Injection) 4 mg IVPUSH Q6H PRN PRN Reason: NAUSEA AND/OR VOMITING Last Admin: 05/06/19 04:48 Dose: 4 mg Sucralfate (Carafate Oral Suspension -) 1 gm PO QID [facility] [place] Last Admin: 05/06/19 10:29 Dose: 1 gm - Objective Vital Signs: Vital Signs Temperature 98.4 F 05/06/19 05:55 Pulse Rate 92 H 05/06/19 05:55 Respiratory Rate 18 05/06/19 05:55 Blood Pressure 160/80 05/06/19 05:55 O2 Sat by Pulse Oximetry (%) 99 05/05/19 21:00 Constitutional: Yes: Calm Eyes: Yes: Conjunctiva Clear HENT: Yes: Atraumatic Neck: Yes: Supple Cardiovascular: Yes: S1, S2 Respiratory: Yes: CTA Bilaterally Gastrointestinal: Yes: Normal Bowel Sounds, Soft Genitourinary: Yes: WNL Musculoskeletal: Yes: WNL Edema: No Neurological: Yes: Oriented Psychiatric: Yes: Oriented Labs: CBC, BMP 05/06/19 07:08 05/06/19 07:08 INR, PTT INR 1.11 (0.83-1.09) H 05/02/19 08:25 Problem List - Problems (1) VAISHNAVI (acute kidney injury) Code(s): N17.9 - ACUTE KIDNEY FAILURE, UNSPECIFIED (2) Abdominal pain Code(s): R10.9 - UNSPECIFIED ABDOMINAL PAIN (3) Hypertensive emergency Code(s): I16.1 - HYPERTENSIVE EMERGENCY Assessment/Plan Current Medications Generic Name Dose Route Start Last Admin Trade Name Freq PRN Reason Stop Dose Admin Carvedilol 6.25 mg 05/06/19 13:15 Coreg - PO BID [facility] Ceftriaxone Sodium 1 gm/ 50 mls @ 100 mls/hr 05/06/19 10:00 05/06/19 10:30 Dextrose IVPB 100 mls/hr DAILY [facility] Administration Metronidazole 500 mg in 100 mls @ 100 mls/hr 05/06/19 02:00 05/06/19 10:30 Flagyl 500mg Premixed Ivpb - IVPB 100 mls/hr Q8H-IV [facility] Administration Pantoprazole Sodium 80 mg/ 100 mls @ 10 mls/hr 05/06/19 08:45 05/06/19 11:52 Sodium Chloride IVPB 10 mls/hr Q10H [facility] Administration 8 MG/HR Insulin Aspart 1 vial 05/06/19 07:00 05/06/19 11:53 Novolog Vial Sliding Scale - SQ Not Given ACHS [facility] Protocol Insulin Detemir 10 units 05/06/19 07:00 05/06/19 06:23 Levemir Vial SQ 10 units AM [facility] Administration Morphine Sulfate 2 mg 05/05/19 23:45 05/06/19 10:40 Morphine Sulfate IVPUSH 2 mg Q4H PRN Administration PAIN LEVEL 7 - 10 Nifedipine 90 mg 05/06/19 10:00 05/06/19 10:29 Procardia Xl - PO 90 mg DAILY [facility] Administration Ondansetron HCl 4 mg 05/05/19 23:45 05/06/19 04:48 Zofran Injection IVPUSH 4 mg Q6H PRN Administration NAUSEA AND/OR VOMITING Sucralfate 1 gm 05/06/19 10:00 05/06/19 10:29 Carafate Oral Suspension - PO 1 gm QID [facility] Administration Impression 1. VAISHNAVI 2. HTN 3. DM 4. anemia 5. bph 6. 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
[2019-05-06] MEDS: CARVEDILOL 6.25 MG TABLET (FP) PO SCH ×2 (15:06→21:27)
--- NOTE | 2019-05-06 15:28 | PN ---
Physical Exam: SUBJECTIVE: Patient seen and examined. He complains of epigastric pain and vomiting. OBJECTIVE: Vital Signs Period Temp Pulse Resp BP Sys/Aceves Pulse Ox Last 24 Hr 98.4 F-99.3 F 88-96 12-18 142-171/79-90 99 GENERAL: The patient is awake, alert, and fully oriented, in no acute distress. LUNGS: Breath sounds equal, clear to auscultation bilaterally, no wheezes, no crackles, no accessory muscle use. HEART: Regular rate and rhythm, S1, S2 without murmur, rub or gallop. ABDOMEN: Soft, nontender, nondistended, normoactive bowel sounds, no guarding, no rebound, no hepatosplenomegaly, no masses. EXTREMITIES: 2+ pulses, warm, well-perfused, no edema. Laboratory Results - last 24 hr 05/03/19 05/05/19 05/05/19 20:00 16:40 21:52 WBC RBC Hgb Hct MCV MCH MCHC RDW Plt Count MPV Absolute Neuts (auto) Neutrophils % Lymphocytes % Monocytes % Eosinophils % Basophils % Nucleated RBC % Sodium Potassium Chloride Carbon Dioxide Anion Gap BUN Creatinine Est GFR (CKD-EPI)AfAm Est GFR (CKD-EPI)NonAf POC Glucometer 225 217 Random Glucose Calcium Phosphorus Magnesium Total Bilirubin AST ALT Alkaline Phosphatase Total Protein Albumin Urine Eosinophils None seen 05/06/19 05/06/19 05/06/19 06:22 07:08 07:08 WBC 11.9 H RBC 3.67 L Hgb 10.9 L Hct 33.1 L MCV 90.1 MCH 29.8 MCHC 33.1 RDW 13.8 Plt Count 217 MPV 9.6 Absolute Neuts (auto) 8.8 H Neutrophils % 74.1 Lymphocytes % 19.0 D Monocytes % 6.4 Eosinophils % 0.3 Basophils % 0.2 Nucleated RBC % 0 Sodium 143 Potassium 3.6 Chloride 109 H Carbon Dioxide 29 Anion Gap 5 L BUN 24.0 H Creatinine 1.8 H Est GFR (CKD-EPI)AfAm 47.70 Est GFR (CKD-EPI)NonAf 41.16 POC Glucometer 169 Random Glucose 160 H Calcium 7.5 L Phosphorus 2.6 Magnesium 1.9 Total Bilirubin 0.2 AST 32 ALT 25 Alkaline Phosphatase 72 Total Protein 4.3 L Albumin 1.8 L Urine Eosinophils 05/06/19 11:50 WBC RBC Hgb Hct MCV MCH MCHC RDW Plt Count MPV Absolute Neuts (auto) Neutrophils % Lymphocytes % Monocytes % Eosinophils % Basophils % Nucleated RBC % Sodium Potassium Chloride Carbon Dioxide Anion Gap BUN Creatinine Est GFR (CKD-EPI)AfAm Est GFR (CKD-EPI)NonAf POC Glucometer 143 Random Glucose Calcium Phosphorus Magnesium Total Bilirubin AST ALT Alkaline Phosphatase Total Protein Albumin Urine Eosinophils Active Medications Generic Name Dose Route Start Last Admin Trade Name Freq PRN Reason Stop Dose Admin Carvedilol 6.25 mg 05/06/19 13:45 05/06/19 15:06 Coreg - PO 6.25 mg BID [facility] Administration Ceftriaxone Sodium 1 gm/ 50 mls @ 100 mls/hr 05/06/19 10:00 05/06/19 10:30 Dextrose IVPB 100 mls/hr DAILY [facility] Administration Metronidazole 500 mg in 100 mls @ 100 mls/hr 05/06/19 02:00 05/06/19 10:30 Flagyl 500mg Premixed Ivpb - IVPB 100 mls/hr Q8H-IV [facility] Administration Pantoprazole Sodium 80 mg/ 100 mls @ 10 mls/hr 05/06/19 08:45 05/06/19 11:52 Sodium Chloride IVPB 10 mls/hr Q10H [facility] Administration 8 MG/HR Insulin Aspart 1 vial 05/06/19 07:00 05/06/19 11:53 Novolog Vial Sliding Scale - SQ Not Given ACHS [facility] Protocol Insulin Detemir 10 units 05/06/19 07:00 05/06/19 06:23 Levemir Vial SQ 10 units AM [facility] Administration Morphine Sulfate 2 mg 05/05/19 23:45 05/06/19 10:40 Morphine Sulfate IVPUSH 2 mg Q4H PRN Administration PAIN LEVEL 7 - 10 Nifedipine 90 mg 05/06/19 10:00 05/06/19 10:29 Procardia Xl - PO 90 mg DAILY [facility] Administration Ondansetron HCl 4 mg 05/05/19 23:45 05/06/19 04:48 Zofran Injection IVPUSH 4 mg Q6H PRN Administration NAUSEA AND/OR VOMITING Sucralfate 1 gm 05/06/19 10:00 05/06/19 15:06 Carafate Oral Suspension - PO 1 gm QID [facility] Administration ASSESSMENT/PLAN: This is a 58 year old man with a history of HTN, type 2 DM, anemia, BPH who presented to the ED with abdominal pain, nausea, and vomiting. 1. Abdominal pain with nausea and vomiting - Thought to be infectious in etiology - Continue ceftriaxone, Flagyl, Carafate, Protonix, Zofran as needed 2. HTN, uncontrolled - Continue Coreg, Procardia XL 3. Type 2 DM - Continue Novolog sliding scale 4. Anemia - Continue to monitor hemoglobin 5. BPH Visit type - Emergency Visit Emergency Visit: Yes ED Registration Date: 05/02/19 Care time: The patient presented to the Emergency Department on the above date and was hospitalized for further evaluation of their emergent condition. - New Patient This patient is new to me today: Yes Date on this admission: 05/06/19 - Critical Care Critical Care patient: No - Discharge Referral Referred to [facility] Med P.C.: No
[2019-05-06] MEDS ORDERED: METOCLOPRAMIDE HCL INJECTION 10 MG/2 ML VIAL IVPB STA (16:28)
[2019-05-06] MEDS ORDERED: METOCLOPRAMIDE HCL INJECTION 10 MG/2 ML VIAL IVPB SCH (16:30)
--- NOTE | 2019-05-06 16:35 | PN.GI ---
GI Progress Note Subjective: still with intractable nausea and vomiting and epigastric pain , could not tolerate his diet, ate a slice of pizza which has led to his symptoms? - Objective Vital Signs: Vital Signs Temperature 99.1 F 05/06/19 14:44 Pulse Rate 90 05/06/19 14:44 Respiratory Rate 18 05/06/19 14:44 Blood Pressure 171/88 H 05/06/19 14:44 O2 Sat by Pulse Oximetry (%) 99 05/05/19 21:00 Constitutional: Well Nourished Eyes: Yes: Conjunctiva Clear HENT: Yes: Atraumatic Cardiovascular: Yes: Regular Rate and Rhythm Respiratory: Yes: CTA Bilaterally ...Palpate: Yes: Soft. No: Firm/Rigid, Guarding, Hepatomegaly, Mass, Pulsatile Mass, Tenderness, Other Labs: CBC, BMP 05/06/19 07:08 05/06/19 07:08 INR, PTT INR 1.11 (0.83-1.09) H 05/02/19 08:25 Problem List - Problems (1) Intractable vomiting Assessment/Plan: R> ice chips only d/c morphine, IV Tyelenol IV Reglan and Zofran IV hydration urine Toxicology will need EGD to r/o gastric outlet obstruction Code(s): R11.10 - VOMITING, UNSPECIFIED
[2019-05-06 16:59] LABS: EPI CELLS 4.3 /HPF (0-5/HPF); HYALINE CASTS 8 /lpf (0-8); URINE APPEARANCE CLEAR; URINE BACTERIA 4.1 /hpf (NEGATIVE); URINE BILIRUBIN NEGATIVE (NEGATIVE); URINE COLOR YELLOW; URINE GLUCOSE (UA) TRACE (NEGATIVE); URINE KETONE NEGATIVE (NEGATIVE); URINE LEUK ESTERASE NEGATIVE (NEGATIVE); URINE NITRITE NEGATIVE (NEGATIVE); URINE PROTEIN 3+ (NEGATIVE); URINE RBC 213 /hpf (0-4); URINE UROBILINOGEN 0.2 mg/dL (0.2-1.0); URINE WBC 4 /hpf (0-5)
[2019-05-06] MEDS: METOCLOPRAMIDE HCL INJECTION 10 MG/2 ML VIAL IVPUSH SCH (17:30)
[2019-05-06] MEDS: ACETAMINOPHEN 1000 MG/100 ML VIAL (NON FORMULARY) IVPB PRN (18:22)
[2019-05-06] MEDS: SODIUM CHLORIDE 1,000 ML IV SCH (19:00)
[2019-05-06] MEDS ORDERED: PT OWN MED DRAWER 7, Y5N ONE (20:03)
[2019-05-06] MEDS: ONDANSETRON 4 MG/2 ML VIAL IVPB SCH (21:36)
[2019-05-06] MEDS ORDERED: CHLORHEXIDINE GLUCONATE 4% CLEANSER FOR DECOLONIZATION TP SCH (22:00)
[2019-05-07] MEDS: METOCLOPRAMIDE HCL INJECTION 10 MG/2 ML VIAL IVPUSH SCH (01:00)
[2019-05-07] MEDS: ONDANSETRON 4 MG/2 ML VIAL IVPB SCH ×3 (01:11→10:46)
[2019-05-07] MEDS: SODIUM CHLORIDE 1,000 ML IV SCH ×3 (03:00→18:24)
[2019-05-07] MEDS: ACETAMINOPHEN 1000 MG/100 ML VIAL (NON FORMULARY) IVPB PRN ×2 (04:29→20:58)
[2019-05-07] MEDS ORDERED: PT OWN MED DRAWER 7, Y5N ONE (05:28)
[2019-05-07] MEDS: INSULIN (LEVEMIR) 100 UNITS/ML UNITS SQ SCH (06:18)
[2019-05-07] MEDS: INSULIN SLIDING SCALE (NOVOLOG) 1 VIAL SQ SCH ×4 (06:18→21:10)
[2019-05-07] MEDS: PANTOPRAZOLE SODIUM 80 MG in SODIUM CHLORIDE 100 ML IVPB SCH ×2 (06:20→18:21)
[2019-05-07 07:59] LABS: BASO % 0.3 % (0-2.0); EOS % 0.5 % (0-4.5); HEMATOCRIT 29.5 % (35.4-49); HEMOGLOBIN 9.8 GM/dL (11.7-16.9); MCHC 33.3 g/dl (32.0-35.9); MEAN PLT VOLUME 9.5 fl (7.5-11.1); MONO % 6.9 % (3.8-10.2); NEUT % 76.3 % (42.8-82.8); PLATELET COUNT 195 K/MM3 (134-434); RBC 3.28 M/mm3 (4.00-5.60); RDW 13.8 % (11.9-15.9); WHITE BLOOD COUNT 11.1 K/mm3 (4.0-10.0)
--- NOTE | 2019-05-07 08:06 | PN ---
Progress Note, Physician History of Present Illness: GI FOLLOW UP NOTE Patient examined and case discussed with Dr Manuel Patient continues to have burning mid abdominal pain accompanied with vomiting. Patient vomited x 2 yesterday. He states abdominal pain subsided after an episode of diarrhea but then returned. Denies dysphagia, rectal bleeding, blood in stool, melena. - Current Medication List Current Medications: Active Medications Acetaminophen (Ofirmev Injection -) 1,000 mg IVPB Q6H PRN PRN Reason: PAIN LEVEL 4 - 6 Last Admin: 05/07/19 04:29 Dose: 1,000 mg Carvedilol (Coreg -) 6.25 mg PO BID [facility] Last Admin: 05/06/19 21:27 Dose: 6.25 mg Ceftriaxone Sodium 1 gm/ (Dextrose) 50 mls @ 100 mls/hr IVPB DAILY [facility] Last Admin: 05/06/19 10:30 Dose: 100 mls/hr Metronidazole (Flagyl 500mg Premixed Ivpb -) 500 mg in 100 mls @ 100 mls/hr IVPB Q8H-IV [facility] Last Admin: 05/07/19 01:45 Dose: 100 mls/hr Pantoprazole Sodium 80 mg/ (Sodium Chloride) 100 mls @ 10 mls/hr IVPB Q10H [facility] Last Admin: 05/07/19 06:20 Dose: 10 mls/hr Sodium Chloride (Normal Saline -) 1,000 mls @ 150 mls/hr IV ASDIR [facility] Stop: 05/08/19 23:24 Last Admin: 05/07/19 03:00 Dose: 150 mls/hr Insulin Aspart (Novolog Vial Sliding Scale -) 1 vial SQ ACHS [facility]; Protocol Last Admin: 05/07/19 06:18 Dose: Not Given Insulin Detemir (Levemir Vial) 10 units SQ AM [facility] Last Admin: 05/07/19 06:18 Dose: Not Given Nifedipine (Procardia Xl -) 90 mg PO DAILY [facility] Last Admin: 05/06/19 10:29 Dose: 90 mg Ondansetron HCl (Zofran Injection) 4 mg IVPB Q4H-IV [facility] Stop: 05/07/19 10:01 Last Admin: 05/07/19 05:20 Dose: 4 mg Ondansetron HCl (Zofran Injection) 4 mg IVPUSH Q4H PRN PRN Reason: NAUSEA AND/OR VOMITING Sucralfate (Carafate Oral Suspension -) 1 gm PO QID [facility] Last Admin: 05/06/19 21:27 Dose: 1 gm - Objective Vital Signs: Vital Signs Temperature 98.4 F 05/07/19 05:56 Pulse Rate 89 05/07/19 05:56 Respiratory Rate 18 05/07/19 05:56 Blood Pressure 152/72 05/07/19 05:56 O2 Sat by Pulse Oximetry (%) 98 05/06/19 21:00 Constitutional: Yes: No Distress, Calm Eyes: Yes: Conjunctiva Clear HENT: Yes: Atraumatic Cardiovascular: Yes: Regular Rate and Rhythm Respiratory: Yes: Regular, CTA Bilaterally Gastrointestinal: Yes: Normal Bowel Sounds, Soft, Tenderness (generalized) Neurological: Yes: Alert, Oriented Psychiatric: Yes: Alert, Oriented Labs: INR, PTT INR 1.11 (0.83-1.09) H 05/02/19 08:25 Problem List - Problems (1) Intractable vomiting Assessment/Plan: >continue NPO status >IV hydration >will need EGD to r/o gastric outlet obstruction >cardiology clearance prior to EGD for EKG changes on admission and if Reglan safe to give for nausea/vomiting Code(s): R11.10 - VOMITING, UNSPECIFIED
[2019-05-07 08:10] LABS: ALBUMIN 1.7 g/dl (3.4-5.0); BILIRUBIN,TOTAL 0.2 mg/dL (0.2-1); BLOOD UREA NITROGEN 20.7 mg/dL (7-18); CALCIUM 7.4 mg/dL (8.5-10.1); CREATININE 1.9 mg/dL (0.55-1.3); POTASSIUM 3.5 mmol/L (3.5-5.1)
[2019-05-07] MEDS ORDERED: ONDANSETRON 4 MG/2 ML VIAL IVPUSH PRN (10:00)
[2019-05-07] MEDS ORDERED: cefTRIAXone SODIUM 1 GM VIAL ONE (10:39)
[2019-05-07] MEDS ORDERED: DEXTROSE 5%-WATER - 50 ML IVPB ONE (10:42)
[2019-05-07] MEDS: SUCRALFATE 1 GM/10 ML UNIT DOSE CUPS PO SCH ×4 (10:46→21:08)
[2019-05-07] MEDS: CEFTRIAXONE 1 GM in DEXTROSE 5%-WATER - 50 ML IVPB SCH (10:46)
[2019-05-07] MEDS: CARVEDILOL 6.25 MG TABLET (FP) PO SCH (10:47)
[2019-05-07] MEDS: NIFEdipine E.R. 90 MG TABLET (FP) PO SCH (10:50)
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
--- NOTE | 2019-05-07 13:03 | PN ---
Progress Note, Physician Chief Complaint: Pt continues to have abdominal discomfort; denies chest pain or dyspnea. History of Present Illness: The patient is a 58 year old black male with a significant past medical history of GI bleed (03/2018, requiring carafate), dm, htn,diastolic CHF (Normal LVEF, with moderate LVH on 05/02/19 echo), chronic abdominal pain, ?h pylori, ? peripheral neuropathy, PAD (s/p bilateral 5th toe amputations) and anemia ( unknown cause, ?recent colonoscopy; endoscopy scheduled for 05/07/19), who presents to the emergency department with 3 days of progressively worsening burning epigastric abdominal pain with associated hematemesis (dark, watery red ) and melena. As per patient, his symptoms initially onset yesterday but, worsened yesterday with associated subjective fevers, chills, and diaphoresis. He notes his symptoms to be similar to his previous episode of a GI bleed ( unknown if upper or lower). He denies any recent fevers, chills, headache or dizziness. He denies any recent chest pain or shortness of breath. He denies any recent dysuria, frequency, urgency or hematuria. Pt denies personal or family hx CAD or CVA. Never smoked; occasional glass of alcohol (never a heavy drinker); denies illicit drugs. Walks regularly; denies chest pain or dyspnea. Allergies: [facility] GI: Dr. Maneul - Current Medication List Current Medications: Active Medications Acetaminophen (Ofirmev Injection -) 1,000 mg IVPB Q6H PRN PRN Reason: PAIN LEVEL 4 - 6 Last Admin: 05/07/19 04:29 Dose: 1,000 mg Carvedilol (Coreg -) 6.25 mg PO BID [facility] Last Admin: 05/07/19 10:47 Dose: 6.25 mg Metronidazole (Flagyl 500mg Premixed Ivpb -) 500 mg in 100 mls @ 100 mls/hr IVPB Q8H-IV [facility] Last Admin: 05/07/19 10:46 Dose: 100 mls/hr Pantoprazole Sodium 80 mg/ (Sodium Chloride) 100 mls @ 10 mls/hr IVPB Q10H [facility] Last Admin: 05/07/19 06:20 Dose: 10 mls/hr Sodium Chloride (Normal Saline -) 1,000 mls @ 150 mls/hr IV ASDIR [facility] Stop: 05/08/19 23:24 Last Admin: 05/07/19 10:54 Dose: 150 mls/hr Insulin Aspart (Novolog Vial Sliding Scale -) 1 vial SQ ACHS [facility]; Protocol Last Admin: 05/07/19 11:08 Dose: Not Given Insulin Detemir (Levemir Vial) 10 units SQ AM [facility] Last Admin: 05/07/19 06:18 Dose: Not Given Nifedipine (Procardia Xl -) 90 mg PO DAILY [facility] Last Admin: 05/07/19 10:50 Dose: 90 mg Ondansetron HCl (Zofran Injection) 4 mg IVPUSH Q4H PRN PRN Reason: NAUSEA AND/OR VOMITING Sucralfate (Carafate Oral Suspension -) 1 gm PO QID [facility] Last Admin: 05/07/19 10:46 Dose: 1 gm - Objective Vital Signs: Vital Signs Temperature 98.4 F 05/07/19 05:56 Pulse Rate 89 05/07/19 05:56 Respiratory Rate 18 05/07/19 05:56 Blood Pressure 152/72 05/07/19 05:56 O2 Sat by Pulse Oximetry (%) 98 05/06/19 21:00 Constitutional: Yes: Calm Eyes: Yes: WNL, Sclera Icterus Neck: Yes: WNL Cardiovascular: Yes: S1, S2, S4 Respiratory: Yes: WNL Gastrointestinal: Yes: Soft, Tenderness ...Rectal Exam: Yes: Deferred Genitourinary: No: Anuria Breast(s): Yes: WNL Musculoskeletal: Yes: Muscle Weakness Extremities: Yes: WNL Edema: No Peripheral Pulses WNL: Yes Integumentary: Yes: WNL Neurological: Yes: Alert, Oriented Psychiatric: Yes: WNL Labs: CBC, BMP 05/07/19 07:07 05/07/19 07:07 INR, PTT INR 1.11 (0.83-1.09) H 05/02/19 08:25 Abnormal Lab Results 05/07/19 05/07/19 07:07 07:07 WBC 11.1 H RBC 3.28 L Hgb 9.8 L Hct 29.5 L Absolute Neuts (auto) 8.5 H Chloride 109 H Anion Gap 6 L BUN 20.7 H Creatinine 1.9 H Random Glucose 132 H Calcium 7.4 L AST 44 H Total Protein 4.0 L Albumin 1.7 L - ....Imaging Chest X-ray: Image Reviewed Ultrasound: Report Reviewed EKG: Image Reviewed Problem List - Problems (1) Diabetes Code(s): E11.9 - TYPE 2 DIABETES MELLITUS WITHOUT COMPLICATIONS (2) Abdominal pain Code(s): R10.9 - UNSPECIFIED ABDOMINAL PAIN (3) Hypertensive emergency Assessment/Plan: On carvedilol and nifedipine (the latter was increased to 90 mg daily). F/u BP serially. ECHO: Normal LVEF: moderate LVH. Code(s): I16.1 - HYPERTENSIVE EMERGENCY (4) Intractable vomiting Assessment/Plan: CT abdomen results noted. F/u with GI, surgeon. Code(s): R11.10 - VOMITING, UNSPECIFIED (5) Elevated troponin Assessment/Plan: mild elevation in TNI (maximum 0.10); rising CK, with low CKMB relative index. EKG: NSR; incompliete RBBB; T wave changes inferiorly. ECHO: normal LVEF; moderate LVH; regional wall motion abnormalities not noted. s/p amputation of both 5th toes. Given pt's multiple risks for CAD, would recommend evaluation (starting with stress test, if not done recently) when stable. This may be done as outpatient. Code(s): R79.89 - OTHER SPECIFIED ABNORMAL FINDINGS OF BLOOD CHEMISTRY (6) PAD (peripheral artery disease) Assessment/Plan: s/p amputation of both 5th toes. F/u vascular studies. Code(s): I73.9 - PERIPHERAL VASCULAR DISEASE, UNSPECIFIED (7) Renal dysfunction Assessment/Plan: Avoid excessive dehydration. F/u BUN/Cr, electrolytes, Is and Os. 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 Code(s): N28.9 - DISORDER OF KIDNEY AND URETER, UNSPECIFIED (8) [place] cardiac risk >20% in next 10 years Assessment/Plan: see "elevated troponin" Code(s): Z91.89 - OTH PERSONAL RISK FACTORS, NOT ELSEWHERE CLASSIFIED (9) Hypoalbuminemia Code(s): E88.09 - OTH DISORDERS OF PLASMA-PROTEIN METABOLISM, NEC (10) Diastolic CHF Assessment/Plan: echo: normal LVEF, with moderate LVH. On carvedilol and nifedipine. F/u BUN/Cr, electrolytes, daily weight, Is and Os. Control of BP is essential. Code(s): I50.30 - UNSPECIFIED DIASTOLIC (CONGESTIVE) HEART FAILURE (11) Anemia Assessment/Plan: For endoscopy today (05/07/2019). Code(s): D64.9 - ANEMIA, UNSPECIFIED
--- NOTE | 2019-05-07 14:56 | PN ---
Progress Note, Physician History of Present Illness: Pt seen and examined at bedside. He just had the endoscopy. - Current Medication List Current Medications: Active Medications Acetaminophen (Ofirmev Injection -) 1,000 mg IVPB Q6H PRN PRN Reason: PAIN LEVEL 4 - 6 Last Admin: 05/07/19 04:29 Dose: 1,000 mg Carvedilol (Coreg -) 6.25 mg PO BID [facility] Last Admin: 05/07/19 10:47 Dose: 6.25 mg Metronidazole (Flagyl 500mg Premixed Ivpb -) 500 mg in 100 mls @ 100 mls/hr IVPB Q8H-IV [facility] Last Admin: 05/07/19 10:46 Dose: 100 mls/hr Pantoprazole Sodium 80 mg/ (Sodium Chloride) 100 mls @ 10 mls/hr IVPB Q10H [facility] Last Admin: 05/07/19 06:20 Dose: 10 mls/hr Sodium Chloride (Normal Saline -) 1,000 mls @ 150 mls/hr IV ASDIR [facility] Stop: 05/08/19 23:24 Last Admin: 05/07/19 10:54 Dose: 150 mls/hr Insulin Aspart (Novolog Vial Sliding Scale -) 1 vial SQ ACHS [facility]; Protocol Last Admin: 05/07/19 11:08 Dose: Not Given Insulin Detemir (Levemir Vial) 10 units SQ AM [facility] Last Admin: 05/07/19 06:18 Dose: Not Given Nifedipine (Procardia Xl -) 90 mg PO DAILY [facility] Last Admin: 05/07/19 10:50 Dose: 90 mg Ondansetron HCl (Zofran Injection) 4 mg IVPUSH Q4H PRN PRN Reason: NAUSEA AND/OR VOMITING Sucralfate (Carafate Oral Suspension -) 1 gm PO QID [facility] Last Admin: 05/07/19 14:44 Dose: Not Given - Objective Vital Signs: Vital Signs Temperature 98 F 05/07/19 13:43 Pulse Rate 89 05/07/19 14:18 Respiratory Rate 19 05/07/19 14:18 Blood Pressure 166/83 05/07/19 14:18 O2 Sat by Pulse Oximetry (%) 98 05/07/19 14:18 Constitutional: Yes: Calm Eyes: Yes: Conjunctiva Clear HENT: Yes: Atraumatic Neck: Yes: Supple Cardiovascular: Yes: S1, S2 Respiratory: Yes: CTA Bilaterally Gastrointestinal: Yes: Soft Genitourinary: Yes: WNL Musculoskeletal: Yes: WNL Edema: No Neurological: Yes: Oriented Psychiatric: Yes: Oriented Labs: CBC, BMP 05/07/19 07:07 05/07/19 07:07 INR, PTT INR 1.11 (0.83-1.09) H 05/02/19 08:25 Problem List - Problems (1) VAISHNAVI (acute kidney injury) Code(s): N17.9 - ACUTE KIDNEY FAILURE, UNSPECIFIED (2) Abdominal pain Code(s): R10.9 - UNSPECIFIED ABDOMINAL PAIN (3) Hypertensive emergency Code(s): I16.1 - HYPERTENSIVE EMERGENCY Assessment/Plan Current Medications Generic Name Dose Route Start Last Admin Trade Name Freq PRN Reason Stop Dose Admin Acetaminophen 1,000 mg 05/06/19 16:26 05/07/19 04:29 Ofirmev Injection - IVPB 1,000 mg Q6H PRN Administration PAIN LEVEL 4 - 6 Carvedilol 6.25 mg 05/06/19 13:45 05/07/19 10:47 Coreg - PO 6.25 mg BID [facility] Administration Metronidazole 500 mg in 100 mls @ 100 mls/hr 05/06/19 02:00 05/07/19 10:46 Flagyl 500mg Premixed Ivpb - IVPB 100 mls/hr Q8H-IV [facility] Administration Pantoprazole Sodium 80 mg/ 100 mls @ 10 mls/hr 05/06/19 08:45 05/07/19 06:20 Sodium Chloride IVPB 10 mls/hr Q10H [facility] Administration 8 MG/HR Sodium Chloride 1,000 mls @ 150 mls/hr 05/06/19 16:45 05/07/19 10:54 Normal Saline - IV 05/08/19 23:24 150 mls/hr ASDIR [facility] Administration Insulin Aspart 1 vial 05/06/19 07:00 05/07/19 11:08 Novolog Vial Sliding Scale - SQ Not Given ACHS [facility] Protocol Insulin Detemir 10 units 05/06/19 07:00 05/07/19 06:18 Levemir Vial SQ Not Given AM [facility] Nifedipine 90 mg 05/06/19 10:00 05/07/19 10:50 Procardia Xl - PO 90 mg DAILY [facility] Administration Ondansetron HCl 4 mg 05/07/19 10:00 Zofran Injection IVPUSH Q4H PRN NAUSEA AND/OR VOMITING Sucralfate 1 gm 05/06/19 10:00 05/07/19 14:44 Carafate Oral Suspension - PO Not Given QID [facility] Impression 1. VAISHNAVI 2. HTN 3. DM 4. anemia 5. bph 6. CKD 7. gastroparesis Plan - increase dose of coreg - monitor renal function - cardio follow up - discussed with GI, pt likely with gastroparesis - repeat ua with prt to business risk consultant ratio - cont to monitor bp - brody or arb once more stable - repeat labs in am
--- NOTE | 2019-05-07 16:25 | PN ---
Physical Exam: SUBJECTIVE: Patient seen and examined. He says he is feeling better although he has been NPO since midnight. OBJECTIVE: Vital Signs Period Temp Pulse Resp BP Sys/Aceves Pulse Ox Last 24 Hr 98 F-99.5 F 80-92 16-24 114-166/51-94 98-99 GENERAL: The patient is awake, alert, and fully oriented, in no acute distress. LUNGS: Breath sounds equal, clear to auscultation bilaterally, no wheezes, no crackles, no accessory muscle use. HEART: Regular rate and rhythm, S1, S2 without murmur, rub or gallop. ABDOMEN: Soft, nontender, nondistended, normoactive bowel sounds, no guarding, no rebound, no hepatosplenomegaly, no masses. EXTREMITIES: 2+ pulses, warm, well-perfused, no edema. Laboratory Results - last 24 hr 05/06/19 05/06/19 05/06/19 15:15 15:15 17:50 WBC RBC Hgb Hct MCV MCH MCHC RDW Plt Count MPV Absolute Neuts (auto) Neutrophils % Lymphocytes % Monocytes % Eosinophils % Basophils % Nucleated RBC % Sodium Potassium Chloride Carbon Dioxide Anion Gap BUN Creatinine Est GFR (CKD-EPI)AfAm Est GFR (CKD-EPI)NonAf POC Glucometer 119 Random Glucose Calcium Total Bilirubin AST ALT Alkaline Phosphatase Total Protein Albumin Urine Color Yellow Urine Appearance Clear Urine pH 6.0 Ur Specific [place] 1.016 Urine Protein 3+ H Urine Glucose (UA) Trace Urine Ketones Negative Urine Blood 3+ H Urine Nitrite Negative Urine Bilirubin Negative Urine Urobilinogen 0.2 Ur Leukocyte Esterase Negative Urine WBC (Auto) 4 Urine RBC (Auto) 213 Urine Casts (Auto) 8 U Epithel Cells (Auto) 4.3 U Sm Round Cell (Auto) None seen Urine Bacteria (Auto) 4.1 U Random Total Protein 399.4 H Urine Creatinine 106.0 Protein/Creatinin Ratio 3.8 05/06/19 05/07/19 05/07/19 21:21 05:50 07:07 WBC RBC Hgb Hct MCV MCH MCHC RDW Plt Count MPV Absolute Neuts (auto) Neutrophils % Lymphocytes % Monocytes % Eosinophils % Basophils % Nucleated RBC % Sodium 142 Potassium 3.5 Chloride 109 H Carbon Dioxide 26 Anion Gap 6 L BUN 20.7 H Creatinine 1.9 H Est GFR (CKD-EPI)AfAm 44.68 Est GFR (CKD-EPI)NonAf 38.55 POC Glucometer 169 119 Random Glucose 132 H Calcium 7.4 L Total Bilirubin 0.2 AST 44 H ALT 27 Alkaline Phosphatase 74 Total Protein 4.0 L Albumin 1.7 L Urine Color Urine Appearance Urine pH Ur Specific [place] Urine Protein Urine Glucose (UA) Urine Ketones Urine Blood Urine Nitrite Urine Bilirubin Urine Urobilinogen Ur Leukocyte Esterase Urine WBC (Auto) Urine RBC (Auto) Urine Casts (Auto) U Epithel Cells (Auto) U Sm Round Cell (Auto) Urine Bacteria (Auto) U Random Total Protein Urine Creatinine Protein/Creatinin Ratio 05/07/19 05/07/19 07:07 11:04 WBC 11.1 H RBC 3.28 L Hgb 9.8 L Hct 29.5 L MCV 90.0 MCH 30.0 MCHC 33.3 RDW 13.8 Plt Count 195 MPV 9.5 Absolute Neuts (auto) 8.5 H Neutrophils % 76.3 Lymphocytes % 16.0 Monocytes % 6.9 Eosinophils % 0.5 Basophils % 0.3 Nucleated RBC % 0 Sodium Potassium Chloride Carbon Dioxide Anion Gap BUN Creatinine Est GFR (CKD-EPI)AfAm Est GFR (CKD-EPI)NonAf POC Glucometer 146 Random Glucose Calcium Total Bilirubin AST ALT Alkaline Phosphatase Total Protein Albumin Urine Color Urine Appearance Urine pH Ur Specific [place] Urine Protein Urine Glucose (UA) Urine Ketones Urine Blood Urine Nitrite Urine Bilirubin Urine Urobilinogen Ur Leukocyte Esterase Urine WBC (Auto) Urine RBC (Auto) Urine Casts (Auto) U Epithel Cells (Auto) U Sm Round Cell (Auto) Urine Bacteria (Auto) U Random Total Protein Urine Creatinine Protein/Creatinin Ratio Active Medications Generic Name Dose Route Start Last Admin Trade Name Freq PRN Reason Stop Dose Admin Acetaminophen 1,000 mg 05/06/19 16:26 05/07/19 04:29 Ofirmev Injection - IVPB 1,000 mg Q6H PRN Administration PAIN LEVEL 4 - 6 Carvedilol 12.5 mg 05/07/19 14:56 Coreg - PO BID [facility] Metronidazole 500 mg in 100 mls @ 100 mls/hr 05/06/19 02:00 05/07/19 10:46 Flagyl 500mg Premixed Ivpb - IVPB 100 mls/hr Q8H-IV [facility] Administration Pantoprazole Sodium 80 mg/ 100 mls @ 10 mls/hr 05/06/19 08:45 05/07/19 06:20 Sodium Chloride IVPB 10 mls/hr Q10H [facility] Administration 8 MG/HR Sodium Chloride 1,000 mls @ 150 mls/hr 05/06/19 16:45 05/07/19 10:54 Normal Saline - IV 05/08/19 23:24 150 mls/hr ASDIR [facility] Administration Insulin Aspart 1 vial 05/06/19 07:00 05/07/19 11:08 Novolog Vial Sliding Scale - SQ Not Given ACHS [facility] Protocol Insulin Detemir 10 units 05/06/19 07:00 05/07/19 06:18 Levemir Vial SQ Not Given AM [facility] Nifedipine 90 mg 05/06/19 10:00 05/07/19 10:50 Procardia Xl - PO 90 mg DAILY [facility] Administration Ondansetron HCl 4 mg 05/07/19 10:00 Zofran Injection IVPUSH Q4H PRN NAUSEA AND/OR VOMITING Sucralfate 1 gm 05/06/19 10:00 05/07/19 14:44 Carafate Oral Suspension - PO Not Given QID [facility] ASSESSMENT/PLAN: This is a 58 year old man with a history of HTN, type 2 DM, anemia, BPH who presented to the ED with abdominal pain, nausea, and vomiting. 1. Abdominal pain with nausea and vomiting - s/p EGD today - possible gastroparesis - Continue Flagyl, Carafate, Protonix, Zofran as needed 2. HTN, uncontrolled - Continue Coreg, Procardia XL 3. Abnormal troponin - Possible demand ischemia - Has multiple risks for CAD - will need stress test which can be done as outpatient 4. Chronic diastolic heart failure - Stable 5. Type 2 DM - Continue Levemir, Novolog sliding scale 6. Anemia - Check iron studies - Stool negative for occult blood - Continue to monitor hemoglobin 7. BPH Visit type - Emergency Visit Emergency Visit: Yes ED Registration Date: 05/02/19 Care time: The patient presented to the Emergency Department on the above date and was hospitalized for further evaluation of their emergent condition. - New Patient This patient is new to me today: No - Critical Care Critical Care patient: No - Discharge Referral Referred to [facility] No
[2019-05-07] MEDS: CARVEDILOL 12.5 MG TABLET (FP) PO SCH (21:08)
[2019-05-07] MEDS ORDERED: INSULIN (NOVOLOG) ASPART 100 UNITS/ML 10ML VIAL ONE (21:09)
[2019-05-08] MEDS: PANTOPRAZOLE SODIUM 80 MG in SODIUM CHLORIDE 100 ML IVPB SCH ×2 (01:26→11:51)
[2019-05-08] MEDS: ACETAMINOPHEN 1000 MG/100 ML VIAL (NON FORMULARY) IVPB PRN (06:36)
[2019-05-08] MEDS: INSULIN (LEVEMIR) 100 UNITS/ML UNITS SQ SCH (06:43)
[2019-05-08] MEDS: INSULIN SLIDING SCALE (NOVOLOG) 1 VIAL SQ SCH ×4 (06:44→21:10)
[2019-05-08] MEDS ORDERED: ONDANSETRON 4 MG TABLET PO PRN (08:16)
[2019-05-08 08:22] LABS: MCH 30.3 pg (25.7-33.7); MCHC 33.5 g/dl (32.0-35.9); MEAN CELL VOLUME 90.3 fl (80-96); MEAN PLT VOLUME 9.7 fl (7.5-11.1); PLATELET COUNT 189 K/MM3 (134-434); RBC 3.32 M/mm3 (4.00-5.60); RDW 13.7 % (11.9-15.9)
--- NOTE | 2019-05-08 08:23 | PN ---
Progress Note, Physician History of Present Illness: GI FOLLOW UP NOTE Patient examined and case discussed with Dr Manuel Patient continues to have burning mid abdominal pain accompanied with vomiting. Patient vomited x 1 this morning. Patient had EGD done yesterday with Dr Manuel which revealed a duodenal polyp, hiatal hernia, and gastritis. Denies dysphagia, rectal bleeding, blood in stool, melena. - Current Medication List Current Medications: Active Medications Carvedilol (Coreg -) 12.5 mg PO BID [facility] Last Admin: 05/07/19 21:08 Dose: 12.5 mg Metronidazole (Flagyl 500mg Premixed Ivpb -) 500 mg in 100 mls @ 100 mls/hr IVPB Q8H-IV [facility] Last Admin: 05/08/19 01:26 Dose: 100 mls/hr Pantoprazole Sodium 80 mg/ (Sodium Chloride) 100 mls @ 10 mls/hr IVPB Q10H [facility] Last Admin: 05/08/19 01:26 Dose: 10 mls/hr Sodium Chloride (Normal Saline -) 1,000 mls @ 150 mls/hr IV ASDIR [facility] Stop: 05/08/19 23:24 Last Admin: 05/07/19 18:24 Dose: Not Given Insulin Aspart (Novolog Vial Sliding Scale -) 1 vial SQ ACHS [facility]; Protocol Last Admin: 05/08/19 06:44 Dose: 2 units Insulin Detemir (Levemir Vial) 10 units SQ AM [facility] Last Admin: 05/08/19 06:43 Dose: 10 units Nifedipine (Procardia Xl -) 90 mg PO DAILY [facility] Last Admin: 05/07/19 10:50 Dose: 90 mg Sucralfate (Carafate Oral Suspension -) 1 gm PO QID [facility] Last Admin: 05/07/19 21:08 Dose: 1 gm - Objective Vital Signs: Vital Signs Temperature 98.9 F 05/08/19 06:00 Pulse Rate 88 05/08/19 06:00 Respiratory Rate 18 05/08/19 06:00 Blood Pressure 160/89 05/08/19 06:00 O2 Sat by Pulse Oximetry (%) 98 05/07/19 21:00 Constitutional: Yes: No Distress, Calm Eyes: Yes: Conjunctiva Clear HENT: Yes: Atraumatic Cardiovascular: Yes: Regular Rate and Rhythm Respiratory: Yes: Regular, CTA Bilaterally Gastrointestinal: Yes: Normal Bowel Sounds, Soft, Tenderness (generalized but prominent LUQ) Neurological: Yes: Alert, Oriented Psychiatric: Yes: Alert, Oriented Labs: INR, PTT INR 1.11 (0.83-1.09) H 05/02/19 08:25 Problem List - Problems (1) Intractable vomiting Assessment/Plan: >clear liquid diet, lactose free and low fiber >IV hydration >EGD yesterday showed duodenal polyp, hiatal hernia, gastritis >started on Simethicone 80mg QID >zofran 4mg TID PO for nausea vomiting >WBC showing downtrend 11.1 Code(s): R11.10 - VOMITING, UNSPECIFIED (2) Pancreatic cyst Assessment/Plan: >CTAP shows 0.3cm pancreatic body cyst >Abdominal MRI ordered Code(s): K86.2 - CYST OF PANCREAS
[2019-05-08 09:07] LABS: ALBUMIN 1.8 g/dl (3.4-5.0); BILIRUBIN,TOTAL 0.1 mg/dL (0.2-1); BLOOD UREA NITROGEN 16.4 mg/dL (7-18); CALCIUM 7.3 mg/dL (8.5-10.1); CREATININE 1.8 mg/dL (0.55-1.3); POTASSIUM 3.4 mmol/L (3.5-5.1); TOT PROT 4.1 g/dl (6.4-8.2)
[2019-05-08] MEDS ORDERED: PT OWN MED DRAWER 7, Y5N ONE ×2 (09:23→18:03)
[2019-05-08] MEDS: SUCRALFATE 1 GM/10 ML UNIT DOSE CUPS PO SCH ×4 (09:24→21:06)
[2019-05-08] MEDS: NIFEdipine E.R. 90 MG TABLET (FP) PO SCH (09:24)
[2019-05-08] MEDS: CARVEDILOL 12.5 MG TABLET (FP) PO SCH ×2 (09:24→21:06)
[2019-05-08] MEDS: LIPASE/PROTEASE/AMYLASE 36,000 UNIT CAPSULE PO SCH ×2 (11:52→17:54)
--- NOTE | 2019-05-08 12:20 | PN ---
Progress Note, Physician History of Present Illness: patient stable feels better than yesterday egd done tolerating some liquids - Current Medication List Current Medications: Active Medications Carvedilol (Coreg -) 12.5 mg PO BID [facility] Last Admin: 05/08/19 09:24 Dose: 12.5 mg Metronidazole (Flagyl 500mg Premixed Ivpb -) 500 mg in 100 mls @ 100 mls/hr IVPB Q8H-IV [facility] Last Admin: 05/08/19 09:24 Dose: 100 mls/hr Pantoprazole Sodium 80 mg/ (Sodium Chloride) 100 mls @ 10 mls/hr IVPB Q10H [facility] Last Admin: 05/08/19 11:51 Dose: 10 mls/hr Sodium Chloride (Normal Saline -) 1,000 mls @ 150 mls/hr IV ASDIR [facility] Stop: 05/08/19 23:24 Last Admin: 05/07/19 18:24 Dose: Not Given Insulin Aspart (Novolog Vial Sliding Scale -) 1 vial SQ ACHS [facility]; Protocol Last Admin: 05/08/19 12:01 Dose: 2 units Insulin Detemir (Levemir Vial) 10 units SQ AM [facility] Last Admin: 05/08/19 06:43 Dose: 10 units Nifedipine (Procardia Xl -) 90 mg PO DAILY [facility] Last Admin: 05/08/19 09:24 Dose: 90 mg Ondansetron HCl (Zofran -) 4 mg PO Q8H PRN PRN Reason: NAUSEA AND/OR VOMITING Pancrelipase (Creon Dr 36,000 Units Capsule) 1 cap PO TIDCM [facility] Last Admin: 05/08/19 11:52 Dose: 1 cap Simethicone (Mylicon -) 80 mg PO QID PRN PRN Reason: GAS Sucralfate (Carafate Oral Suspension -) 1 gm PO QID [facility] Last Admin: 05/08/19 09:24 Dose: 1 gm - Objective Vital Signs: Vital Signs Temperature 99.6 F 05/08/19 08:33 Pulse Rate 85 05/08/19 08:33 Respiratory Rate 18 05/08/19 08:33 Blood Pressure 145/85 05/08/19 08:33 O2 Sat by Pulse Oximetry (%) 98 05/08/19 09:00 Constitutional: Yes: Calm, Mild Distress Cardiovascular: Yes: S1, S2 Respiratory: Yes: Regular, CTA Bilaterally Gastrointestinal: Yes: Normal Bowel Sounds, Soft Musculoskeletal: Yes: WNL Extremities: Yes: WNL Neurological: Yes: Alert, Oriented Psychiatric: Yes: Alert, Oriented Labs: CBC, BMP 05/08/19 07:10 05/08/19 07:10 INR, PTT INR 1.11 (0.83-1.09) H 05/02/19 08:25 Assessment/Plan Problem List - Problems (1) VAISHNAVI (acute kidney injury) Code(s): N17.9 - ACUTE KIDNEY FAILURE, UNSPECIFIED (2) Abdominal pain Code(s): R10.9 - UNSPECIFIED ABDOMINAL PAIN (3) Hypertensive emergency Code(s): I16.1 - HYPERTENSIVE EMERGENCY vomiting nausea plan will stop falgyl and monitor await for imaging studies rest as per the team
--- NOTE | 2019-05-08 12:21 | PN ---
Physical Exam: SUBJECTIVE: Patient seen and examined. He says he is still vomiting although he feels he is keeping down liquids now. He also reports epigastric burning. OBJECTIVE: Vital Signs Period Temp Pulse Resp BP Sys/Aceves Pulse Ox Last 24 Hr 98 F-99.6 F 85-92 16-24 119-166/76-90 98-99 GENERAL: The patient is awake, alert, and fully oriented, in no acute distress. LUNGS: Breath sounds equal, clear to auscultation bilaterally, no wheezes, no crackles, no accessory muscle use. HEART: Regular rate and rhythm, S1, S2 without murmur, rub or gallop. ABDOMEN: Soft, nontender, nondistended, normoactive bowel sounds, no guarding, no rebound, no hepatosplenomegaly, no masses. EXTREMITIES: 2+ pulses, warm, well-perfused, no edema. Laboratory Results - last 24 hr 05/07/19 05/08/19 05/08/19 21:06 06:41 07:10 WBC RBC Hgb Hct MCV MCH MCHC RDW Plt Count MPV Sodium 141 Potassium 3.4 L Chloride 108 H Carbon Dioxide 25 Anion Gap 8 BUN 16.4 Creatinine 1.8 H Est GFR (CKD-EPI)AfAm 47.70 Est GFR (CKD-EPI)NonAf 41.16 POC Glucometer 250 174 Random Glucose 168 H Calcium 7.3 L Iron TIBC Iron Saturation Unsaturated IBC Ferritin Total Bilirubin 0.1 L AST 39 H ALT 28 Alkaline Phosphatase 75 Total Protein 4.1 L Albumin 1.8 L 05/08/19 05/08/19 07:10 07:10 WBC 11.0 H RBC 3.32 L Hgb 10.0 L Hct 30.0 L MCV 90.3 MCH 30.3 MCHC 33.5 RDW 13.7 Plt Count 189 MPV 9.7 Sodium Potassium Chloride Carbon Dioxide Anion Gap BUN Creatinine Est GFR (CKD-EPI)AfAm Est GFR (CKD-EPI)NonAf POC Glucometer Random Glucose Calcium Iron 47 L TIBC 117 L Iron Saturation 40 H Unsaturated IBC 70 L Ferritin 150.1 Total Bilirubin AST ALT Alkaline Phosphatase Total Protein Albumin Active Medications Generic Name Dose Route Start Last Admin Trade Name Freq PRN Reason Stop Dose Admin Carvedilol 12.5 mg 05/07/19 14:56 05/08/19 09:24 Coreg - PO 12.5 mg BID [facility] Administration Metronidazole 500 mg in 100 mls @ 100 mls/hr 05/06/19 02:00 05/08/19 09:24 Flagyl 500mg Premixed Ivpb - IVPB 100 mls/hr Q8H-IV [facility] Administration Pantoprazole Sodium 80 mg/ 100 mls @ 10 mls/hr 05/06/19 08:45 05/08/19 01:26 Sodium Chloride IVPB 10 mls/hr Q10H [facility] Administration 8 MG/HR Sodium Chloride 1,000 mls @ 150 mls/hr 05/06/19 16:45 05/07/19 18:24 Normal Saline - IV 05/08/19 23:24 Not Given ASDIR [facility] Insulin Aspart 1 vial 05/06/19 07:00 05/08/19 06:44 Novolog Vial Sliding Scale - SQ 2 units ACHS [facility] Administration Protocol Insulin Detemir 10 units 05/06/19 07:00 05/08/19 06:43 Levemir Vial SQ 10 units AM [facility] Administration Nifedipine 90 mg 05/06/19 10:00 05/08/19 09:24 Procardia Xl - PO 90 mg DAILY [facility] Administration Ondansetron HCl 4 mg 05/08/19 08:16 Zofran - PO Q8H PRN NAUSEA AND/OR VOMITING Pancrelipase 1 cap 05/08/19 12:00 Nena Hodge 36,000 Units Capsule PO TIDCM [facility] Simethicone 80 mg 05/08/19 08:15 Mylicon - PO QID PRN GAS Sucralfate 1 gm 05/06/19 10:00 05/08/19 09:24 Carafate Oral Suspension - PO 1 gm QID [facility] Administration ASSESSMENT/PLAN: This is a 58 year old man with a history of HTN, type 2 DM, anemia, BPH who presented to the ED with abdominal pain, nausea, and vomiting. 1. Abdominal pain with nausea and vomiting - EGD 05/07 showed normal esophageal mucosa, erythematous mucosa in gastric body, normal duodenal mucosa, polyp of duodenal bulb - Continue clear liquids, IV fluid - Continue Flagyl, Carafate, Protonix, Zofran as needed - Simethicone added as needed 2. HTN, uncontrolled - Continue Coreg, Procardia XL 3. Abnormal troponin - Possible demand ischemia - Has multiple risks for CAD - will need stress test which can be done as outpatient 4. Chronic diastolic heart failure - Stable 5. Type 2 DM - Continue Levemir, Novolog sliding scale 6. Anemia - Stool negative for occult blood - Iron studies show low iron, low TIBC, high-normal sat, normal ferritin - Hemoglobin stable 7. BPH 8. Stage 3 CKD - Creatinine stable Visit type - Emergency Visit Emergency Visit: Yes ED Registration Date: 05/02/19 Care time: The patient presented to the Emergency Department on the above date and was hospitalized for further evaluation of their emergent condition. - New Patient This patient is new to me today: No - Critical Care Critical Care patient: No - Discharge Referral Referred to [facility] No
--- NOTE | 2019-05-08 12:36 | PN ---
Progress Note, Physician History of Present Illness: The patient is a 58 year old black male, with a significant past medical history of GI bleed (03/2018, requiring carafate), dm, htn, chronic abdominal pain, ?h pylori, ?peripheral neuropathy, PAD (s/p bilateral 5th toe amputations ) and anemia (unknown cause, ?recent colonoscopy and endoscopy scheduled for 11/17), who presents to the emergency department with 3 days of progressively worsening burning epigastric abdominal pain with associated hematemesis (dark, watery red) and melena. As per patient, his symptoms initially onset yesterday but, worsened yesterday with associated subjective fevers, chills, and diaphoresis. He notes his symptoms to be similar to his previous episode of a GI bleed (unknown if upper or lower). He denies any recent fevers, chills, headache or dizziness. He denies any recent chest pain or shortness of breath. He denies any recent dysuria, frequency, urgency or hematuria. Pt denies personal or family hx CAD or CVA. Never smoked; occasional glass of alcohol (never a heavy drinker); denies illicit drugs. Walks regularly; denies chest pain or dyspnea. Allergies: NKA GI: Dr. Manuel - Current Medication List Current Medications: Active Medications Carvedilol (Coreg -) 12.5 mg PO BID [facility] Last Admin: 05/08/19 09:24 Dose: 12.5 mg Pantoprazole Sodium 80 mg/ (Sodium Chloride) 100 mls @ 10 mls/hr IVPB Q10H [facility] Last Admin: 05/08/19 11:51 Dose: 10 mls/hr Sodium Chloride (Normal Saline -) 1,000 mls @ 150 mls/hr IV ASDIR [facility] Stop: 05/08/19 23:24 Last Admin: 05/07/19 18:24 Dose: Not Given Insulin Aspart (Novolog Vial Sliding Scale -) 1 vial SQ ACHS [facility]; Protocol Last Admin: 05/08/19 12:01 Dose: 2 units Insulin Detemir (Levemir Vial) 10 units SQ AM [facility] Last Admin: 05/08/19 06:43 Dose: 10 units Nifedipine (Procardia Xl -) 90 mg PO DAILY [facility] Last Admin: 05/08/19 09:24 Dose: 90 mg Ondansetron HCl (Zofran -) 4 mg PO Q8H PRN PRN Reason: NAUSEA AND/OR VOMITING Pancrelipase (Nena Hodge 36,000 Units Capsule) 1 cap PO TIDCM [facility] Last Admin: 05/08/19 11:52 Dose: 1 cap Simethicone (Mylicon -) 80 mg PO QID PRN PRN Reason: GAS Sucralfate (Carafate Oral Suspension -) 1 gm PO QID [facility] Last Admin: 05/08/19 09:24 Dose: 1 gm - Objective Vital Signs: Vital Signs Temperature 99.6 F 05/08/19 08:33 Pulse Rate 85 05/08/19 08:33 Respiratory Rate 18 05/08/19 08:33 Blood Pressure 145/85 05/08/19 08:33 O2 Sat by Pulse Oximetry (%) 98 05/08/19 09:00 Eyes: Yes: WNL, Conjunctiva Clear, EOM Intact HENT: Yes: WNL, Atraumatic, Normocephalic Neck: Yes: WNL, Supple, Trachea Midline Cardiovascular: Yes: WNL, Regular Rate and Rhythm Respiratory: Yes: WNL, Regular, CTA Bilaterally Gastrointestinal: Yes: WNL, Normal Bowel Sounds Genitourinary: Yes: WNL Musculoskeletal: Yes: WNL Extremities: Yes: WNL Edema: No Integumentary: Yes: WNL Neurological: Yes: WNL, Alert, Oriented ...Motor Strength: WNL Psychiatric: Yes: WNL Labs: CBC, BMP 05/08/19 07:10 05/08/19 07:10 INR, PTT INR 1.11 (0.83-1.09) H 05/02/19 08:25 Problem List - Problems (1) Abdominal pain Code(s): R10.9 - UNSPECIFIED ABDOMINAL PAIN (2) Diabetes Code(s): E11.9 - TYPE 2 DIABETES MELLITUS WITHOUT COMPLICATIONS (3) Elevated troponin Code(s): R79.89 - OTHER SPECIFIED ABNORMAL FINDINGS OF BLOOD CHEMISTRY (4) [place] cardiac risk >20% in next 10 years Code(s): Z91.89 - OTH PERSONAL RISK FACTORS, NOT ELSEWHERE CLASSIFIED (5) Hypertensive emergency Code(s): I16.1 - HYPERTENSIVE EMERGENCY (6) Intractable vomiting Code(s): R11.10 - VOMITING, UNSPECIFIED (7) PAD (peripheral artery disease) Code(s): I73.9 - PERIPHERAL VASCULAR DISEASE, UNSPECIFIED (8) Periumbilical pain Code(s): R10.33 - PERIUMBILICAL PAIN (9) Renal dysfunction Code(s): N28.9 - DISORDER OF KIDNEY AND URETER, UNSPECIFIED (10) Uncontrolled diabetes mellitus Code(s): E11.65 - TYPE 2 DIABETES MELLITUS WITH HYPERGLYCEMIA Assessment/Plan - Problems (1) Diabetes Code(s): E11.9 - TYPE 2 DIABETES MELLITUS WITHOUT COMPLICATIONS (2) Abdominal pain Code(s): R10.9 - UNSPECIFIED ABDOMINAL PAIN (3) Hypertensive emergency Assessment/Plan: On carvedilol and nifedipine (the latter was increased to 90 mg daily). F/u BP serially. ECHO: Normal LVEF: moderate LVH. Code(s): I16.1 - HYPERTENSIVE EMERGENCY (4) Intractable vomiting Assessment/Plan: CT abdomen results noted. F/u with GI, surgeon. Code(s): R11.10 - VOMITING, UNSPECIFIED (5) Elevated troponin Assessment/Plan: mild elevation in TNI (maximum 0.10); rising CK, with low CKMB relative index. EKG: NSR; incompliete RBBB; T wave changes inferiorly. ECHO: normal LVEF; moderate LVH; regional wall motion abnormalities not noted. s/p amputation of both 5th toes. Given pt's multiple risks for CAD, would recommend evaluation (starting with stress test, if not done recently) when stable. This may be done as outpatient. Code(s): R79.89 - OTHER SPECIFIED ABNORMAL FINDINGS OF BLOOD CHEMISTRY (6) PAD (peripheral artery disease) Assessment/Plan: s/p amputation of both 5th toes. F/u vascular studies. Code(s): I73.9 - PERIPHERAL VASCULAR DISEASE, UNSPECIFIED (7) Renal dysfunction Assessment/Plan: Avoid excessive dehydration. F/u BUN/Cr, electrolytes, Is and Os. F/u with escapement maker. Code(s): N28.9 - DISORDER OF KIDNEY AND URETER, UNSPECIFIED (8) [place] cardiac risk >20% in next 10 years Assessment/Plan: see "elevated troponin" Code(s): Z91.89 - OTH PERSONAL RISK FACTORS, NOT ELSEWHERE CLASSIFIED (9) Hypoalbuminemia Code(s): E88.09 - OTH DISORDERS OF PLASMA-PROTEIN METABOLISM, NEC (10) Diastolic CHF Assessment/Plan: echo: normal LVEF, with moderate LVH. On carvedilol and nifedipine. F/u BUN/Cr, electrolytes, daily weight, Is and Os. Control of BP is essential. Code(s): I50.30 - UNSPECIFIED DIASTOLIC (CONGESTIVE) HEART FAILURE (11) Anemia Assessment/Plan: For endoscopy today (05/07/2019). Code(s): D64.9 - ANEMIA, UNSPECIFIED
[2019-05-08] MEDS ORDERED: POTASSIUM CHLORIDE TABS 20 MEQ TABLET.ER (FP) PO ONE (13:11)
--- NOTE | 2019-05-08 13:15 | PN ---
Progress Note, Physician History of Present Illness: Pt seen and examined at bedside. He is awake and alert. He is tolerating clears. - Current Medication List Current Medications: Active Medications Carvedilol (Coreg -) 12.5 mg PO BID [facility] Last Admin: 05/08/19 09:24 Dose: 12.5 mg Pantoprazole Sodium 80 mg/ (Sodium Chloride) 100 mls @ 10 mls/hr IVPB Q10H [facility] Last Admin: 05/08/19 11:51 Dose: 10 mls/hr Sodium Chloride (Normal Saline -) 1,000 mls @ 150 mls/hr IV ASDIR [facility] Stop: 05/08/19 23:24 Last Admin: 05/07/19 18:24 Dose: Not Given Insulin Aspart (Novolog Vial Sliding Scale -) 1 vial SQ ACHS [facility]; Protocol Last Admin: 05/08/19 12:01 Dose: 2 units Insulin Detemir (Levemir Vial) 10 units SQ AM [facility] Last Admin: 05/08/19 06:43 Dose: 10 units Nifedipine (Procardia Xl -) 90 mg PO DAILY [facility] Last Admin: 05/08/19 09:24 Dose: 90 mg Ondansetron HCl (Zofran -) 4 mg PO Q8H PRN PRN Reason: NAUSEA AND/OR VOMITING Pancrelipase (Creon Dr 36,000 Units Capsule) 1 cap PO TIDCM [facility] Last Admin: 05/08/19 11:52 Dose: 1 cap Simethicone (Mylicon -) 80 mg PO QID PRN PRN Reason: GAS Sucralfate (Carafate Oral Suspension -) 1 gm PO QID [facility] Last Admin: 05/08/19 09:24 Dose: 1 gm - Objective Vital Signs: Vital Signs Temperature 99.6 F 05/08/19 08:33 Pulse Rate 85 05/08/19 08:33 Respiratory Rate 18 05/08/19 08:33 Blood Pressure 145/85 05/08/19 08:33 O2 Sat by Pulse Oximetry (%) 98 05/08/19 09:00 Constitutional: Yes: Calm Eyes: Yes: Conjunctiva Clear HENT: Yes: Atraumatic Neck: Yes: Supple Cardiovascular: Yes: S1, S2 Respiratory: Yes: CTA Bilaterally Gastrointestinal: Yes: Soft Genitourinary: Yes: [place] Present Musculoskeletal: Yes: WNL Edema: No Neurological: Yes: Oriented Psychiatric: Yes: Oriented Labs: CBC, BMP 05/08/19 07:10 05/08/19 07:10 INR, PTT INR 1.11 (0.83-1.09) H 05/02/19 08:25 Problem List - Problems (1) VAISHNAVI (acute kidney injury) Code(s): N17.9 - ACUTE KIDNEY FAILURE, UNSPECIFIED (2) Abdominal pain Code(s): R10.9 - UNSPECIFIED ABDOMINAL PAIN (3) Hypertensive emergency Code(s): I16.1 - HYPERTENSIVE EMERGENCY Assessment/Plan Current Medications Generic Name Dose Route Start Last Admin Trade Name Freq PRN Reason Stop Dose Admin Carvedilol 12.5 mg 05/07/19 14:56 05/08/19 09:24 Coreg - PO 12.5 mg BID [facility] Administration Pantoprazole Sodium 80 mg/ 100 mls @ 10 mls/hr 05/06/19 08:45 05/08/19 11:51 Sodium Chloride IVPB 10 mls/hr Q10H [facility] Administration 8 MG/HR Sodium Chloride 1,000 mls @ 150 mls/hr 05/06/19 16:45 05/07/19 18:24 Normal Saline - IV 05/08/19 23:24 Not Given ASDIR [facility] Insulin Aspart 1 vial 05/06/19 07:00 05/08/19 12:01 Novolog Vial Sliding Scale - SQ 2 units ACHS [facility] Administration Protocol Insulin Detemir 10 units 05/06/19 07:00 05/08/19 06:43 Levemir Vial SQ 10 units AM [facility] Administration Nifedipine 90 mg 05/06/19 10:00 05/08/19 09:24 Procardia Xl - PO 90 mg DAILY [facility] Administration Ondansetron HCl 4 mg 05/08/19 08:16 Zofran - PO Q8H PRN NAUSEA AND/OR VOMITING Pancrelipase 1 cap 05/08/19 12:00 05/08/19 11:[address] 36,000 Units Capsule PO 1 cap TIDCM [facility] Administration Potassium Chloride 40 meq 05/08/19 13:11 K-Dur - PO 05/08/19 13:12 ONCE ONE Simethicone 80 mg 05/08/19 08:15 Mylicon - PO QID PRN [facility] Sucralfate 1 gm 05/06/19 10:00 05/08/19 09:24 Carafate Oral Suspension - PO 1 gm QID [facility] Administration Impression 1. VAISHNAVI 2. HTN 3. DM 4. anemia 5. bph 6. CKD 7. gastroparesis Plan - replace potassium - pt tolerating diet - renal function stable, will need outpt follow up - discussed plan with pt - repeat ua with prt to senior quality methods specialist ratio - cont to monitor bp - brody or arb once more stable
[2019-05-08] MEDS: SIMETHICONE 80 MG TAB.CHEW (FP) PO PRN ×3 (14:43→21:06)
[2019-05-08 15:01] VITALS: BMI 25.2
[2019-05-08] MEDS ORDERED: INSULIN (NOVOLOG) ASPART 100 UNITS/ML 10ML VIAL ONE (18:02)
[2019-05-09] MEDS: SIMETHICONE 80 MG TAB.CHEW (FP) PO PRN ×3 (03:09→13:59)
[2019-05-09] MEDS: INSULIN SLIDING SCALE (NOVOLOG) 1 VIAL SQ SCH ×4 (06:46→21:39)
[2019-05-09] MEDS ORDERED: INSULIN (NOVOLOG) ASPART 100 UNITS/ML 10ML VIAL ONE ×2 (06:50→11:48)
[2019-05-09] MEDS: INSULIN (LEVEMIR) 100 UNITS/ML UNITS SQ SCH (07:46)
[2019-05-09] MEDS ORDERED: SODIUM CHLORIDE 1,000 ML IV SCH (08:00)
--- NOTE | 2019-05-09 08:05 | PN ---
Progress Note, Physician History of Present Illness: GI FOLLOW UP NOTE Patient examined and case discussed with Dr Manuel Patient continues with burning mid abdominal pain, but states it is not as intense as when admitted. Denies episodes of nausea or vomiting during the night. States having 2 episodes of non-bloody during the night. Labs from yesterday show leukocytosis with WBC 11.0. Abdominal MRI shows nonspecific diffuse mesenteric and subcutaneous edema suggestive of third spacing, possibly diffuse pancreatic tissue edema. - Current Medication List Current Medications: Active Medications Carvedilol (Coreg -) 12.5 mg PO BID [facility] Last Admin: 05/08/19 21:06 Dose: 12.5 mg Sodium Chloride (Normal Saline -) 1,000 mls @ 100 mls/hr IV ASDIR [facility] Insulin Aspart (Novolog Vial Sliding Scale -) 1 vial SQ ACHS [facility]; Protocol Last Admin: 05/09/19 06:46 Dose: Not Given Insulin Detemir (Levemir Vial) 10 units SQ AM [facility] Last Admin: 05/09/19 07:46 Dose: 10 units Nifedipine (Procardia Xl -) 90 mg PO DAILY [facility] Last Admin: 05/08/19 09:24 Dose: 90 mg Ondansetron HCl (Zofran -) 4 mg PO Q8H PRN PRN Reason: NAUSEA AND/OR VOMITING Pancrelipase (Nena Hodge 36,000 Units Capsule) 1 cap PO TIDCM [facility] Last Admin: 05/08/19 17:54 Dose: 1 cap Pantoprazole Sodium (Protonix Iv) 40 mg IVPUSH DAILY [facility] Simethicone (Mylicon -) 80 mg PO QID PRN PRN Reason: GAS Last Admin: 05/09/19 03:09 Dose: 80 mg Sucralfate (Carafate Oral Suspension -) 1 gm PO QID [facility] Last Admin: 05/08/19 21:06 Dose: 1 gm - Objective Vital Signs: Vital Signs Temperature 99.9 F H 05/09/19 05:55 Pulse Rate 77 05/09/19 05:55 Respiratory Rate 20 05/09/19 05:55 Blood Pressure 150/84 05/09/19 05:55 O2 Sat by Pulse Oximetry (%) 98 05/08/19 21:00 Constitutional: Yes: No Distress, Calm Eyes: Yes: Conjunctiva Clear HENT: Yes: Atraumatic Cardiovascular: Yes: Regular Rate and Rhythm Respiratory: Yes: Regular, CTA Bilaterally Gastrointestinal: Yes: Normal Bowel Sounds, Soft, Tenderness (diffuse but more prominent in LUQ) Neurological: Yes: Alert Psychiatric: Yes: Alert Labs: CBC, BMP 05/08/19 07:10 05/08/19 07:10 INR, PTT INR 1.11 (0.83-1.09) H 05/02/19 08:25 <Beth Rodriguez - Last Filed: 05/09/19 08:00> - Current Medication List Current Medications: Active Medications Carvedilol (Coreg -) 12.5 mg PO BID [facility] Last Admin: 05/09/19 09:49 Dose: 12.5 mg Metronidazole (Flagyl 500mg Premixed Ivpb -) 500 mg in 100 mls @ 100 mls/hr IVPB Q8H-IV [facility] Last Admin: 05/09/19 18:01 Dose: 100 mls/hr Insulin Aspart (Novolog Vial Sliding Scale -) 1 vial SQ ACHS [facility]; Protocol Last Admin: 05/09/19 17:51 Dose: 2 units Insulin Detemir (Levemir Vial) 10 units SQ AM [facility] Last Admin: 05/09/19 07:46 Dose: 10 units Nifedipine (Procardia Xl -) 90 mg PO DAILY [facility] Last Admin: 05/09/19 10:07 Dose: 90 mg Ondansetron HCl (Zofran -) 4 mg PO Q8H PRN PRN Reason: NAUSEA AND/OR VOMITING Pancrelipase (Creon Dr 36,000 Units Capsule) 1 cap PO TIDCM [facility] Last Admin: 05/09/19 17:49 Dose: 1 cap Pantoprazole Sodium (Protonix Iv) 40 mg IVPUSH DAILY [facility] Last Admin: 05/09/19 09:49 Dose: 40 mg Simethicone (Mylicon -) 80 mg PO QID PRN PRN Reason: GAS Last Admin: 05/09/19 13:59 Dose: 80 mg Sucralfate (Carafate Oral Suspension -) 1 gm PO QID [facility] Last Admin: 05/09/19 18:01 Dose: 1 gm - Objective Vital Signs: Vital Signs Temperature 99.3 F 05/09/19 18:00 Pulse Rate 82 05/09/19 18:00 Respiratory Rate 19 05/09/19 18:00 Blood Pressure 155/78 05/09/19 18:00 O2 Sat by Pulse Oximetry (%) 98 05/09/19 10:00 Labs: CBC, BMP 05/09/19 09:04 05/09/19 09:04 INR, PTT INR 1.11 (0.83-1.09) H 05/02/19 08:25 <David Manuel - Last Filed: 05/09/19 19:54> Problem List - Problems (1) Intractable vomiting Assessment/Plan: >clear liquid diet, lactose free and low fiber >IV hydration >EGD yesterday showed duodenal polyp, hiatal hernia, gastritis >started on Simethicone 80mg QID >zofran 4mg TID PO for nausea vomiting >WBC showing downtrend 11.0 Code(s): R11.10 - VOMITING, UNSPECIFIED (2) Pancreatic cyst Assessment/Plan: >CTAP shows 0.3cm pancreatic body cyst >Abdominal MRI shows nonspecific diffuse mesenteric and subcutaneous edema suggestive of third spacing, possibly diffuse pancreatic tissue edema. Code(s): K86.2 - CYST OF PANCREAS (3) Abdominal pain Assessment/Plan: >Abdominal MRI shows nonspecific diffuse mesenteric and subcutaneous edema suggestive of third spacing, possibly diffuse pancreatic tissue edema. >reconsult Vascular and Surgery to R/O intestinal angina with underlying chronic mesenteric ischemia >Flagyl 500mg IVPB q8h for Small intestinal bowel overgrowth >NS at 100cc/hr >continue clear liquid diet Code(s): R10.9 - UNSPECIFIED ABDOMINAL PAIN (4) Diarrhea Assessment/Plan: >collect stool for C-diff >Flagyl 500mg IVPB q8h Code(s): R19.7 - DIARRHEA, UNSPECIFIED <Beth Rodriguez - Last Filed: 05/09/19 08:00> - Problems (1) Intractable vomiting Code(s): R11.10 - VOMITING, UNSPECIFIED <David Manuel - Last Filed: 05/09/19 19:54>
[2019-05-09] MEDS ORDERED: PT OWN MED DRAWER 7, Y5N ONE ×3 (08:11→17:57)
[2019-05-09] MEDS: LIPASE/PROTEASE/AMYLASE 36,000 UNIT CAPSULE PO SCH ×3 (08:48→17:49)
[2019-05-09] MEDS: SUCRALFATE 1 GM/10 ML UNIT DOSE CUPS PO SCH ×4 (09:48→21:36)
[2019-05-09] MEDS: CARVEDILOL 12.5 MG TABLET (FP) PO SCH ×2 (09:49→21:36)
[2019-05-09] MEDS: PANTOPRAZOLE SODIUM 40 MG VIAL IVPUSH SCH (09:49)
[2019-05-09 10:07] LABS: HEMATOCRIT 28.1 % (35.4-49); HEMOGLOBIN 9.3 GM/dL (11.7-16.9); MCH 30.1 pg (25.7-33.7); MEAN CELL VOLUME 91.2 fl (80-96); PLATELET COUNT 204 K/MM3 (134-434); RBC 3.08 M/mm3 (4.00-5.60); RDW 13.5 % (11.9-15.9); WHITE BLOOD COUNT 11.2 K/mm3 (4.0-10.0)
[2019-05-09] MEDS: NIFEdipine E.R. 90 MG TABLET (FP) PO SCH (10:07)
[2019-05-09 10:36] LABS: ALBUMIN 1.7 g/dl (3.4-5.0); BILIRUBIN,TOTAL 0.2 mg/dL (0.2-1); BLOOD UREA NITROGEN 13.8 mg/dL (7-18); CALCIUM 7.4 mg/dL (8.5-10.1); CREATININE 1.8 mg/dL (0.55-1.3); POTASSIUM 3.4 mmol/L (3.5-5.1); TOT PROT 4.1 g/dl (6.4-8.2)
--- NOTE | 2019-05-09 11:48 | EKG ---
Test Reason : Blood Pressure : / mmHG Vent. Rate : 083 BPM Atrial Rate : 083 BPM P-R Int : 166 ms QRS Dur : 102 ms QT Int : 390 ms P-R-T Axes : 069 -46 028 degrees QTc Int : 458 ms NORMAL SINUS RHYTHM LEFT AXIS DEVIATION SEPTAL INFARCT (CITED ON OR BEFORE 01-MAY-2019) ABNORMAL ECG WHEN COMPARED WITH ECG OF 02-MAY-2019 02:49, NO SIGNIFICANT CHANGE WAS FOUND Confirmed by MATEUSZ [place], FAYE ([id number]) on 05/09/2019 11:47:51 AM Referred By: NOHEMI SANCHEZ DR Confirmed By:FAYE CHILD MD
[2019-05-09] MEDS: KCL 10 MEQ IVPB 10 MEQ/100 ML INFUS.BAG IVPB SCH ×2 (11:58→13:01)
--- NOTE | 2019-05-09 12:20 | PN ---
Progress Note, Physician History of Present Illness: stable doing better - Current Medication List Current Medications: Active Medications Carvedilol (Coreg -) 12.5 mg PO BID [facility] Last Admin: 05/09/19 09:49 Dose: 12.5 mg Sodium Chloride (Normal Saline -) 1,000 mls @ 100 mls/hr IV ASDIR [facility] Last Admin: 05/09/19 08:58 Dose: 100 mls/hr Metronidazole (Flagyl 500mg Premixed Ivpb -) 500 mg in 100 mls @ 100 mls/hr IVPB Q8H-IV [facility] Last Admin: 05/09/19 09:57 Dose: 100 mls/hr Potassium Chloride (Potassium Chloride 10 Meq Premix Ivpb -) 10 meq in 100 mls @ 100 mls/hr IVPB Q60M [facility] Stop: 05/09/19 13:44 Last Admin: 05/09/19 11:58 Dose: 100 mls/hr Insulin Aspart (Novolog Vial Sliding Scale -) 1 vial SQ ACHS [facility]; Protocol Last Admin: 05/09/19 11:58 Dose: 4 units Insulin Detemir (Levemir Vial) 10 units SQ AM [facility] Last Admin: 05/09/19 07:46 Dose: 10 units Nifedipine (Procardia Xl -) 90 mg PO DAILY [facility] Last Admin: 05/09/19 10:07 Dose: 90 mg Ondansetron HCl (Zofran -) 4 mg PO Q8H PRN PRN Reason: NAUSEA AND/OR VOMITING Pancrelipase (Creon Dr 36,000 Units Capsule) 1 cap PO TIDCM [facility] Last Admin: 05/09/19 11:58 Dose: 1 cap Pantoprazole Sodium (Protonix Iv) 40 mg IVPUSH DAILY [facility] Last Admin: 05/09/19 09:49 Dose: 40 mg Simethicone (Mylicon -) 80 mg PO QID PRN PRN Reason: GAS Last Admin: 05/09/19 09:49 Dose: 80 mg Sucralfate (Carafate Oral Suspension -) 1 gm PO QID [facility] Last Admin: 05/09/19 09:48 Dose: 1 gm - Objective Vital Signs: Vital Signs Temperature 99.5 F 05/09/19 09:00 Pulse Rate 84 05/09/19 09:00 Respiratory Rate 18 05/09/19 09:00 Blood Pressure 155/80 05/09/19 09:00 O2 Sat by Pulse Oximetry (%) 98 05/08/19 21:00 Constitutional: Yes: No Distress, Calm Cardiovascular: Yes: S1, S2 Respiratory: Yes: Regular, CTA Bilaterally Gastrointestinal: Yes: Normal Bowel Sounds, Soft Musculoskeletal: Yes: WNL Extremities: Yes: WNL Neurological: Yes: Alert, Oriented Psychiatric: Yes: Alert, Oriented Labs: CBC, BMP 05/09/19 09:04 05/09/19 09:04 INR, PTT INR 1.11 (0.83-1.09) H 05/02/19 08:25 Assessment/Plan Problem List - Problems (1) VAISHNAVI (acute kidney injury) Code(s): N17.9 - ACUTE KIDNEY FAILURE, UNSPECIFIED (2) Abdominal pain Code(s): R10.9 - UNSPECIFIED ABDOMINAL PAIN (3) Hypertensive emergency Code(s): I16.1 - HYPERTENSIVE EMERGENCY vomiting nausea plan continue current mgmt rest as per the team
--- NOTE | 2019-05-09 13:51 | PN ---
Progress Note, Physician Chief Complaint: Pt sitting up at bedise; feels "better", but continues to have abdominal discomfort, and feels as if new med may be giving him diarrhea, though able to tolerate upgrade in diet; denies chest pain or dyspnea. History of Present Illness: The patient is a 58 year old black male with a significant past medical history of GI bleed (03/2018, requiring carafate), dm, htn,diastolic CHF (Normal LVEF, with moderate LVH on 05/02/19 echo), chronic abdominal pain, ?h pylori, ? peripheral neuropathy, PAD (s/p bilateral 5th toe amputations) and anemia ( unknown cause, ?recent colonoscopy; endoscopy scheduled for 05/07/19), who presents to the emergency department with 3 days of progressively worsening burning epigastric abdominal pain with associated hematemesis (dark, watery red ) and melena. As per patient, his symptoms initially onset yesterday but, worsened yesterday with associated subjective fevers, chills, and diaphoresis. He notes his symptoms to be similar to his previous episode of a GI bleed ( unknown if upper or lower). He denies any recent fevers, chills, headache or dizziness. He denies any recent chest pain or shortness of breath. He denies any recent dysuria, frequency, urgency or hematuria. Pt denies personal or family hx CAD or CVA. Never smoked; occasional glass of alcohol (never a heavy drinker); denies illicit drugs. Walks regularly; denies chest pain or dyspnea. Allergies: NKA GI: Dr. Manuel - Current Medication List Current Medications: Active Medications Carvedilol (Coreg -) 12.5 mg PO BID [facility] Last Admin: 05/09/19 09:49 Dose: 12.5 mg Sodium Chloride (Normal Saline -) 1,000 mls @ 100 mls/hr IV ASDIR [facility] Last Admin: 05/09/19 08:58 Dose: 100 mls/hr Metronidazole (Flagyl 500mg Premixed Ivpb -) 500 mg in 100 mls @ 100 mls/hr IVPB Q8H-IV [facility] Last Admin: 05/09/19 09:57 Dose: 100 mls/hr Insulin Aspart (Novolog Vial Sliding Scale -) 1 vial SQ ACHS [facility]; Protocol Last Admin: 05/09/19 11:58 Dose: 4 units Insulin Detemir (Levemir Vial) 10 units SQ AM [facility] Last Admin: 05/09/19 07:46 Dose: 10 units Nifedipine (Procardia Xl -) 90 mg PO DAILY [facility] Last Admin: 05/09/19 10:07 Dose: 90 mg Ondansetron HCl (Zofran -) 4 mg PO Q8H PRN PRN Reason: NAUSEA AND/OR VOMITING Pancrelipase (Nena Dr 36,000 Units Capsule) 1 cap PO TIDCM [facility] Last Admin: 05/09/19 11:58 Dose: 1 cap Pantoprazole Sodium (Protonix Iv) 40 mg IVPUSH DAILY [facility] Last Admin: 05/09/19 09:49 Dose: 40 mg Simethicone (Mylicon -) 80 mg PO QID PRN PRN Reason: GAS Last Admin: 05/09/19 09:49 Dose: 80 mg Sucralfate (Carafate Oral Suspension -) 1 gm PO QID [facility] Last Admin: 05/09/19 09:48 Dose: 1 gm - Objective Vital Signs: Vital Signs Temperature 99.5 F 05/09/19 09:00 Pulse Rate 84 05/09/19 09:00 Respiratory Rate 18 05/09/19 09:00 Blood Pressure 155/80 05/09/19 09:00 O2 Sat by Pulse Oximetry (%) 98 05/08/19 21:00 Constitutional: Yes: Calm Eyes: Yes: WNL HENT: Yes: WNL Neck: Yes: WNL Cardiovascular: Yes: WNL Respiratory: Yes: WNL Gastrointestinal: Yes: Soft. No: Tenderness ...Rectal Exam: Yes: Deferred Genitourinary: No: Anuria Breast(s): Yes: WNL Musculoskeletal: Yes: WNL Extremities: Yes: WNL Edema: No Peripheral Pulses WNL: Yes Integumentary: Yes: WNL Neurological: Yes: WNL ...Motor Strength: WNL Psychiatric: Yes: WNL Labs: CBC, BMP 05/09/19 09:04 05/09/19 09:04 INR, PTT INR 1.11 (0.83-1.09) H 05/02/19 08:25 Abnormal Lab Results 05/09/19 05/09/19 09:04 09:04 WBC 11.2 H RBC 3.08 L Hgb 9.3 L Hct 28.1 L Potassium 3.4 L Chloride 109 H Anion Gap 6 L Creatinine 1.8 H Random Glucose 201 H Calcium 7.4 L Total Protein 4.1 L Albumin 1.7 L - ....Imaging MRI: Report Reviewed EKG: Image Reviewed (NSR: THERESA) Problem List - Problems (1) Diabetes Code(s): E11.9 - TYPE 2 DIABETES MELLITUS WITHOUT COMPLICATIONS (2) Abdominal pain Assessment/Plan: ?pancreatitis (MRI) F?u with GI Code(s): R10.9 - UNSPECIFIED ABDOMINAL PAIN (3) Hypertensive emergency Assessment/Plan: On carvedilol and nifedipine (the latter was increased to 90 mg daily). F/u BP serially; gradually appears to be improving. ECHO: Normal LVEF: moderate LVH. Code(s): I16.1 - HYPERTENSIVE EMERGENCY (4) Intractable vomiting Assessment/Plan: CT, MRI abdomen results noted: ? pancreatitis F/u with GI. Code(s): R11.10 - VOMITING, UNSPECIFIED (5) Elevated troponin Assessment/Plan: mild elevation in TNI (maximum 0.10); rising CK, with low CKMB relative index. EKG: NSR; incompliete RBBB; T wave changes inferiorly. ECHO: normal LVEF; moderate LVH; regional wall motion abnormalities not noted. s/p amputation of both 5th toes. Given pt's multiple risks for CAD, would recommend evaluation (starting with stress test, if not done recently) when stable. This may be done as outpatient. Code(s): R79.89 - OTHER SPECIFIED ABNORMAL FINDINGS OF BLOOD CHEMISTRY (6) PAD (peripheral artery disease) Assessment/Plan: s/p amputation of both 5th toes. F/u vascular studies. Code(s): I73.9 - PERIPHERAL VASCULAR DISEASE, UNSPECIFIED (7) Renal dysfunction Code(s): N28.9 - DISORDER OF KIDNEY AND URETER, UNSPECIFIED (8) [place] cardiac risk >20% in next 10 years Code(s): Z91.89 - OTH PERSONAL RISK FACTORS, NOT ELSEWHERE CLASSIFIED (9) Hypoalbuminemia Code(s): E88.09 - OTH DISORDERS OF PLASMA-PROTEIN METABOLISM, NEC (10) Diastolic CHF Assessment/Plan: echo: normal LVEF, with moderate LVH. On carvedilol and nifedipine. F/u BUN/Cr, electrolytes, daily weight, Is and Os. Control of BP is essential. Code(s): I50.30 - UNSPECIFIED DIASTOLIC (CONGESTIVE) HEART FAILURE (11) Anemia Code(s): D64.9 - ANEMIA, UNSPECIFIED (12) Hypokalemia Assessment/Plan: replete, and keep K 4-4.5 f/u all electrolytes. Code(s): E87.6 - HYPOKALEMIA
[2019-05-09 14:26] LABS: MAGNESIUM 1.8 mg/dL (1.8-2.4)
[2019-05-09] MEDS ORDERED: POTASSIUM CHLORIDE TABS 20 MEQ TABLET.ER (FP) PO ONE (14:39)
--- NOTE | 2019-05-09 14:41 | PN ---
Progress Note (short form) - Note Progress Note: Hospitalist Medicine Burping and vomiting this AM. Vitals 05/09/19 09:00 Temperature 99.5 F Pulse Rate 84 Respiratory 18 Rate Blood Pressure 155/80 Physical Exam general: resting in bed, in mild distress. nauseated heent: NCAT, PERRLA neck: supple cardio: S1, S2 RRR. no r/m/g pulm: cta b/l. no accessory m usage abdomen: soft, obese, +diffusely TTP. no guarding LE: 2+ pulses, no edema neuro: wet washer machine 2-12 grossly intact Laboratory Tests 05/09/19 05/09/19 09:04 09:04 WBC 11.2 H Hgb 9.3 L Hct 28.1 L Plt Count 204 Sodium 141 Potassium 3.4 L Chloride 109 H Carbon Dioxide 27 Anion Gap 6 L BUN 13.8 Creatinine 1.8 H Random Glucose 201 H Total Protein 4.1 L Albumin 1.7 L Microbiology 05/05/19 12:10 Stool Clostridioides difficile Antigen - Final 05/05/19 12:10 Stool Clostridioides difficile Toxin Assay - Final 05/04/19 16:45 Stool Salmonella/Shigella Culture - Final 05/04/19 16:45 Stool Escherichia coli 0157 Culture - Final NO GROWTH OF SALMONELLA OR SHIGELLA SPECIES OBTAINED NO GROWTH OF YERSINIA SPECIES OBTAINED NO GROWTH OF VIBRIO SPECIES OBTAINED NO GROWTH OF E COLI 0157 OBTAINED 05/04/19 16:45 Stool Gram Stain - Final 05/02/19 13:20 Urine - Urine [place] Urine Culture - Final NO GROWTH OBTAINED 05/02/19 00:15 Blood - Peripheral Venous Blood Culture - Final NO GROWTH AFTER 5 DAYS INCUBATION 05/02/19 00:15 Blood - Peripheral Venous Blood Culture - Final NO GROWTH AFTER 5 DAYS INCUBATION 05/04/19 16:45 Stool Shiga Toxin Test - Preliminary Imaging 05/01/19: CXR: (-) for acute pathology 05/01/19: CTAP, CT chest: marked limited study, nodularity in lower pole L lobe thyroid, mild chronic lung disease, mild hepatomegaly with diffuse fatty infiltration. no acute path in abdomen or pelvis 05/01/19: CTH: mild volume loss. no gross evidence of focal intracranial lesion or hemorrhage is seen. almost totally opacified sphenoid sinus with dense calcifications consistent with chronic sinusitis. can't r/o fungal infection of calcifications 05/02/19: abd sono: dilated CBD 7-8mm, distal obstructive process should be excluded. correlate with LTs and bilirubin level. If indicated, MRI and MRCP may be obtained. apparent segmental atrophy of pancreatic body/prox pancreatic tail. could be normal variant or ?occult malignancy. correlate with MRI with contrast. mild hepatomegaly. nonspecific increased renal cortical echogenicity suggesting chronic medical renal dz. 05/03/19: CTAP: distal ileal bowel loops with subtle concentric wall edema and perienteric mesenteric edema. CT appearance is nonspecific. infectious vs. inflamm vs. ischemic. mildly increased fluid in colon without obvious associated wal edema or pericolonic edema. small amount of pelvic free fluid seen.moderate focal luminal narrowing of prox celiac artery could present a focal stenosis. correlate with doppler. a subtle possible 0.3cm pancreatic body cyst is noted. mild nonspecific prominence of main pancreatic duct in head. suggest MRCP 05/08/19: abdomen MRI: nonspecific diffuse mesenteric and subcutaneous edema suggesting third spacing. possible diffuse pancreatic tissue edema. correlate clinically for pancreatitis. no focal pancreatic lesion identified and no pancreastic duct dilation seen. no cholelithiasis, choledocholithiasis or biliary duct dilation seen. Assessment/Plan 58 year old man with a history of HTN, type 2 DM, anemia, BPH who presented to the ED with abdominal pain, nausea, and vomiting. #Abdominal pain, N/V -possible 2/2 ?pancreatitis, intra-abdominal infection -will also need to r/o ischemia, initial sx eval reviewed. reconsulted -restarted on flagyl (05/09) for possible SIBO -c/w creon -c/w protonix, zofran, mylicon, sucralfate -on soft diet, advance as tolerated -c.diff (-) -f/u shiga toxin -ID: Dr. Del Valle -Sx: Dr. Berumen -GI: Dr. Manuel -Cardio: Dr. Sanchez -Vasc: Dr. Joel #HTN- uncontrolled -c/w procardia, coreg #Tropinemia -peaked, do not need to keep trending -likely 2/2 demand ischemia -will need outpatient stress test #Chronic diastolic HF -stable #T2DM -ISS, levemir 10u sq AM -BGM ACHS #Stage 3 CKD -c/t monitor #F/E/N IV NS 100 cc/hr continue to follow lytes, travon K soft diet; diabetic, na controlled #PPX DVT: SCD's GI: Protonix #Dispo monitoring on med-surg
--- NOTE | 2019-05-09 15:35 | PN ---
Progress Note, Physician History of Present Illness: Pt seen and examined at bedside. He did not tolerated breakfast but did tolerate lunch. - Current Medication List Current Medications: Active Medications Carvedilol (Coreg -) 12.5 mg PO BID [facility] Last Admin: 05/09/19 09:49 Dose: 12.5 mg Sodium Chloride (Normal Saline -) 1,000 mls @ 100 mls/hr IV ASDIR [facility] Last Admin: 05/09/19 08:58 Dose: 100 mls/hr Metronidazole (Flagyl 500mg Premixed Ivpb -) 500 mg in 100 mls @ 100 mls/hr IVPB Q8H-IV [facility] Last Admin: 05/09/19 09:57 Dose: 100 mls/hr Insulin Aspart (Novolog Vial Sliding Scale -) 1 vial SQ ACHS [facility]; Protocol Last Admin: 05/09/19 11:58 Dose: 4 units Insulin Detemir (Levemir Vial) 10 units SQ AM [facility] Last Admin: 05/09/19 07:46 Dose: 10 units Nifedipine (Procardia Xl -) 90 mg PO DAILY [facility] Last Admin: 05/09/19 10:07 Dose: 90 mg Ondansetron HCl (Zofran -) 4 mg PO Q8H PRN PRN Reason: NAUSEA AND/OR VOMITING Pancrelipase (Creon Dr 36,000 Units Capsule) 1 cap PO TIDCM [facility] Last Admin: 05/09/19 11:58 Dose: 1 cap Pantoprazole Sodium (Protonix Iv) 40 mg IVPUSH DAILY [facility] Last Admin: 05/09/19 09:49 Dose: 40 mg Simethicone (Mylicon -) 80 mg PO QID PRN PRN Reason: GAS Last Admin: 05/09/19 13:59 Dose: 80 mg Sucralfate (Carafate Oral Suspension -) 1 gm PO QID [facility] Last Admin: 05/09/19 13:59 Dose: 1 gm - Objective Vital Signs: Vital Signs Temperature 97.9 F 05/09/19 14:51 Pulse Rate 77 05/09/19 14:51 Respiratory Rate 18 05/09/19 14:51 Blood Pressure 113/63 05/09/19 14:51 O2 Sat by Pulse Oximetry (%) 98 05/09/19 10:00 Constitutional: Yes: Calm Eyes: Yes: Conjunctiva Clear HENT: Yes: Atraumatic Cardiovascular: Yes: S1, S2 Respiratory: Yes: CTA Bilaterally Gastrointestinal: Yes: Soft Genitourinary: Yes: WNL Musculoskeletal: Yes: WNL Edema: No Neurological: Yes: Oriented Psychiatric: Yes: Oriented Labs: CBC, BMP 05/09/19 09:04 05/09/19 09:04 INR, PTT INR 1.11 (0.83-1.09) H 05/02/19 08:25 Problem List - Problems (1) VAISHNAVI (acute kidney injury) Code(s): N17.9 - ACUTE KIDNEY FAILURE, UNSPECIFIED (2) Abdominal pain Code(s): R10.9 - UNSPECIFIED ABDOMINAL PAIN (3) Hypertensive emergency Code(s): I16.1 - HYPERTENSIVE EMERGENCY Assessment/Plan Current Medications Generic Name Dose Route Start Last Admin Trade Name Freq PRN Reason Stop Dose Admin Carvedilol 12.5 mg 05/07/19 14:56 05/09/19 09:49 Coreg - PO 12.5 mg BID [facility] Administration Sodium Chloride 1,000 mls @ 100 mls/hr 05/09/19 08:00 05/09/19 08:58 Normal Saline - IV 100 mls/hr ASDIR [facility] Administration Metronidazole 500 mg in 100 mls @ 100 mls/hr 05/09/19 10:00 05/09/19 09:57 Flagyl 500mg Premixed Ivpb - IVPB 100 mls/hr Q8H-IV [facility] Administration Insulin Aspart 1 vial 05/06/19 07:00 05/09/19 11:58 Novolog Vial Sliding Scale - SQ 4 units ACHS [facility] Administration Protocol Insulin Detemir 10 units 05/06/19 07:00 05/09/19 07:46 Levemir Vial SQ 10 units AM [facility] Administration Nifedipine 90 mg 05/06/19 10:00 05/09/19 10:07 Procardia Xl - PO 90 mg DAILY [facility] Administration Ondansetron HCl 4 mg 05/08/19 08:16 Zofran - PO Q8H PRN NAUSEA AND/OR VOMITING Pancrelipase 1 cap 05/08/19 12:00 05/09/19 11:58 Crepaxton Hodge 36,000 Units Capsule PO 1 cap TIDCM [facility] Administration Pantoprazole Sodium 40 mg 05/09/19 10:00 05/09/19 09:49 Protonix Iv IVPUSH 40 mg DAILY [facility] Administration Simethicone 80 mg 05/08/19 08:15 05/09/19 13:59 Mylicon - PO 80 mg QID PRN Administration GAS Sucralfate 1 gm 05/06/19 10:00 05/09/19 13:59 Carafate Oral Suspension - PO 1 gm QID [facility] Administration Impression 1. VAISHNAVI 2. HTN 3. DM 4. anemia 5. bph 6. CKD 7. gastroparesis Plan - d/c fluids - replace potassium - repeat labs in am - check mag - cont to monitor bp - brody or arb once more stable
--- NOTE | 2019-05-09 16:02 | PATH ---
Surgical Pathology Report Patient Name: JAYDE MUSTAFA [facility]. Rec. #: [id number] /Age/Gender: 1960 (Age: 58) / M Account: [id number] Location: [address] [place] [address]/[facility] Taken: 05/07/2019 Received: 05/08/2019 Reported: 05/09/2019 Physicians: David Manuel M.D. Specimen(s) Received A: DUODENAL BULB B: BODY OF STOMACH C: MID-ESOPHAGUS Clinical History Intractable vomiting Postoperative diagnosis: Duodenal polyp, hiatal hernia, gastritis Final Diagnosis A. DUODENAL BULB, BIOPSY: DUODENAL MUCOSAL WITH HETEROTOPIC GASTRIC MUCOSA SHOWING CHRONIC INFLAMMATION, REACTIVE CHANGE, AND FOCAL EPITHELIAL HYPERPLASIA. B. BODY OF STOMACH, BIOPSY: GASTRIC MUCOSA WITH MILD CHRONIC GASTRITIS. IMMUNOSTAIN FOR H. PYLORI IS NEGATIVE. NEGATIVE FOR INTESTINAL METAPLASIA. C. MID ESOPHAGUS, BIOPSY: ESOPHAGEAL MUCOSA WITH NO SIGNIFICANT PATHOLOGIC CHANGE. NO HISTOLOGIC EVIDENCE OF EOSINOPHILIC ESOPHAGITIS. Electronically Signed Yoly Aguilera M.D. Gross Description A. Received in formalin, labeled "biopsy duodenal bulb" is a dwyer, irregular portion of soft tissue measuring 0.3 cm. in greatest dimension. The specimen is submitted in toto in one cassette. B. Received in formalin, labeled "biopsy body of stomach" are 2 dwyer, irregular portions of soft tissue measuring 0.2 and 0.5 cm. in greatest dimension. The specimens are submitted in toto in one cassette. C. Received in formalin, labeled "biopsy mid esophagus" are 2 dwyer, irregular portions of soft tissue measuring 0.2 and 0.7 cm. in greatest dimension. The specimens are submitted in toto in one cassette. DL/05/08/2019 saudi/05/06/2019
--- NOTE | 2019-05-09 17:45 | PN ---
Teaching Attending Note Name of Resident: Lulu Lewis ATTENDING PHYSICIAN STATEMENT I saw and evaluated the patient. I reviewed the resident's note and discussed the case with the resident. I agree with the resident's findings and plan as documented. SUBJECTIVE: Seen and examined at bedside. Patient had vomiting episode this AM after liquids for breakfast, was given reglan and was able to tolerate lunch, chicken and rice. Feeling better. no cp, sob, palps OBJECTIVE: Vital Signs - 24 hr 05/08/19 05/09/19 05/09/19 21:00 00:07 05:55 Temperature 98.8 F 99.9 F H Pulse Rate 82 77 Respiratory 20 20 20 Rate Blood Pressure 155/85 150/84 O2 Sat by Pulse 98 Oximetry (%) 05/09/19 05/09/19 05/09/19 09:00 10:00 14:51 Temperature 99.5 F 97.9 F Pulse Rate 84 77 Respiratory 18 18 Rate Blood Pressure 155/80 113/63 O2 Sat by Pulse 98 Oximetry (%) PE: GENERAL: NAD LUNGS: CTA b/l, unlabored HEART: RRR, S1, S2 without murmur, rub or gallop. ABDOMEN: Soft, NT/ND, NABS, no guarding, no rebound, no hepatosplenomegaly, no masses. EXTREMITIES: 2+ pulses, warm, well-perfused, no edema. Current Medications Generic Name Dose Route Start Last Admin Trade Name Freq PRN Reason Stop Dose Admin Carvedilol 12.5 mg 05/07/19 14:56 05/09/19 09:49 Coreg - PO 12.5 mg BID [facility] Administration Metronidazole 500 mg in 100 mls @ 100 mls/hr 05/09/19 10:00 05/09/19 09:57 Flagyl 500mg Premixed Ivpb - IVPB 100 mls/hr Q8H-IV [facility] Administration Insulin Aspart 1 vial 05/06/19 07:00 05/09/19 11:58 Novolog Vial Sliding Scale - SQ 4 units ACHS [facility] Administration Protocol Insulin Detemir 10 units 05/06/19 07:00 05/09/19 07:46 Levemir Vial SQ 10 units AM [facility] Administration Nifedipine 90 mg 05/06/19 10:00 05/09/19 10:07 Procardia Xl - PO 90 mg DAILY [facility] Administration Ondansetron HCl 4 mg 05/08/19 08:16 Zofran - PO Q8H PRN NAUSEA AND/OR VOMITING Pancrelipase 1 cap 05/08/19 12:00 05/09/19 11:[address] 36,000 Units Capsule PO 1 cap TIDCM [facility] Administration Pantoprazole Sodium 40 mg 05/09/19 10:00 05/09/19 09:49 Protonix Iv IVPUSH 40 mg DAILY [facility] Administration Simethicone 80 mg 05/08/19 08:15 05/09/19 13:59 Mylicon - PO 80 mg QID PRN Administration GAS Sucralfate 1 gm 05/06/19 10:00 05/09/19 13:59 Carafate Oral Suspension - PO 1 gm QID [facility] Administration Laboratory Results - last 24 hr 05/08/19 05/08/19 05/09/19 17:50 21:00 05:53 WBC RBC Hgb Hct MCV MCH MCHC RDW Plt Count MPV Sodium Potassium Chloride Carbon Dioxide Anion Gap BUN Creatinine Est GFR (CKD-EPI)AfAm Est GFR (CKD-EPI)NonAf POC Glucometer 160 164 167 Random Glucose Calcium Magnesium Total Bilirubin AST ALT Alkaline Phosphatase Total Protein Albumin 05/09/19 05/09/19 05/09/19 09:04 09:04 11:45 WBC 11.2 H RBC 3.08 L Hgb 9.3 L Hct 28.1 L MCV 91.2 MCH 30.1 MCHC 33.0 RDW 13.5 Plt Count 204 MPV 11.0 D Sodium 141 Potassium 3.4 L Chloride 109 H Carbon Dioxide 27 Anion Gap 6 L BUN 13.8 Creatinine 1.8 H Est GFR (CKD-EPI)AfAm 47.70 Est GFR (CKD-EPI)NonAf 41.16 POC Glucometer 220 Random Glucose 201 H Calcium 7.4 L Magnesium 1.8 Total Bilirubin 0.2 AST 32 ALT 25 Alkaline Phosphatase 72 Total Protein 4.1 L Albumin 1.7 L imaging reports reviewed ASSESSMENT AND PLAN: 58 year old man with a history of HTN, type 2 DM, anemia, BPH who presented to the ED with abdominal pain, nausea, and vomiting. 1) Abdominal pain, unclear etiology -abdominal MRI with edematous bowel and pancreas -was restarted on flagyl yesterday for possible SIBO -seen by GI, vascular and cardio eval for possible ischemic bowel -EGD 05/07/19 gastritis -advance diet as tolerated -stop IVF -c/w carafate, PPI 2) HTN better controlled on coreg and procardia -echo report reviewed 3. Elevated trop, likely demand ischemia, needs stress test o/p 4. Chronic diastolic heart failure-euvolemic 5. Type 2 DM-cw current mngmt 6. BPH-stable 7. Stage 3 CKD-nephro following
[2019-05-10] MEDS: INSULIN (LEVEMIR) 100 UNITS/ML UNITS SQ SCH (06:24)
[2019-05-10] MEDS: INSULIN SLIDING SCALE (NOVOLOG) 1 VIAL SQ SCH ×2 (06:24→12:10)
[2019-05-10] MEDS: SIMETHICONE 80 MG TAB.CHEW (FP) PO PRN (06:59)
--- NOTE | 2019-05-10 08:33 | PN ---
Progress Note, Physician History of Present Illness: GI FOLLOW UP NOTE Patient examined and case discussed with Dr Manuel Patient states he continues with burning abdominal pain but it is improving. Denies nausea or vomiting during night. Denies diarrhea, constipation, rectal bleeding, or melena. Labs show leukocytosis with WBC 11.2. - Current Medication List Current Medications: Active Medications Carvedilol (Coreg -) 12.5 mg PO BID [facility] Last Admin: 05/09/19 21:36 Dose: 12.5 mg Metronidazole (Flagyl 500mg Premixed Ivpb -) 500 mg in 100 mls @ 100 mls/hr IVPB Q8H-IV [facility] Last Admin: 05/10/19 02:55 Dose: 100 mls/hr Insulin Aspart (Novolog Vial Sliding Scale -) 1 vial SQ ACHS [facility]; Protocol Last Admin: 05/10/19 06:24 Dose: Not Given Insulin Detemir (Levemir Vial) 10 units SQ AM [facility] Last Admin: 05/10/19 06:24 Dose: 10 units Nifedipine (Procardia Xl -) 90 mg PO DAILY [facility] Last Admin: 05/09/19 10:07 Dose: 90 mg Ondansetron HCl (Zofran -) 4 mg PO Q8H PRN PRN Reason: NAUSEA AND/OR VOMITING Pancrelipase (Nena Hodge 36,000 Units Capsule) 1 cap PO TIDCM [facility] Last Admin: 05/09/19 17:49 Dose: 1 cap Pantoprazole Sodium (Protonix Iv) 40 mg IVPUSH DAILY [facility] Last Admin: 05/09/19 09:49 Dose: 40 mg Simethicone (Mylicon -) 80 mg PO QID PRN PRN Reason: GAS Last Admin: 05/10/19 06:59 Dose: 80 mg Sucralfate (Carafate Oral Suspension -) 1 gm PO QID [facility] Last Admin: 05/09/19 21:36 Dose: 1 gm - Objective Vital Signs: Vital Signs Temperature 99.1 F 05/10/19 06:13 Pulse Rate 86 05/10/19 06:13 Respiratory Rate 19 05/10/19 06:13 Blood Pressure 142/82 05/10/19 06:13 O2 Sat by Pulse Oximetry (%) 98 05/09/19 21:00 Constitutional: Yes: No Distress, Calm Eyes: Yes: Conjunctiva Clear HENT: Yes: Atraumatic Cardiovascular: Yes: Regular Rate and Rhythm Respiratory: Yes: Regular, CTA Bilaterally Gastrointestinal: Yes: Normal Bowel Sounds, Soft Neurological: Yes: Alert, Oriented Psychiatric: Yes: Alert, Oriented Labs: CBC, BMP 05/09/19 09:04 05/09/19 09:04 INR, PTT INR 1.11 (0.83-1.09) H 05/02/19 08:25 Problem List - Problems (1) Intractable vomiting Assessment/Plan: >clear liquid diet, lactose free and low fiber >IV hydration >EGD yesterday showed duodenal polyp, hiatal hernia, gastritis >started on Simethicone 80mg QID >zofran 4mg TID PO for nausea vomiting >WBC 11.2 Code(s): R11.10 - VOMITING, UNSPECIFIED (2) Pancreatic cyst Assessment/Plan: >CTAP shows 0.3cm pancreatic body cyst >Abdominal MRI shows nonspecific diffuse mesenteric and subcutaneous edema suggestive of third spacing, possibly diffuse pancreatic tissue edema. Code(s): K86.2 - CYST OF PANCREAS (3) Abdominal pain Assessment/Plan: >Abdominal MRI shows nonspecific diffuse mesenteric and subcutaneous edema suggestive of third spacing, possibly diffuse pancreatic tissue edema. >reconsult Vascular and Surgery to R/O intestinal angina with underlying chronic mesenteric ischemia >switch to Flagyl 250mg TID x 14 days and Ciprofloxacin 500mg BID x 7 days >NS at 100cc/hr >continue clear liquid diet Code(s): R10.9 - UNSPECIFIED ABDOMINAL PAIN (4) Diarrhea Assessment/Plan: >C-diff negative, Stool culture neg, Shiga toxin test pending Code(s): R19.7 - DIARRHEA, UNSPECIFIED
[2019-05-10] MEDS ORDERED: PT OWN MED DRAWER 7, Y5N ONE ×2 (08:49→13:42)
[2019-05-10] MEDS: LIPASE/PROTEASE/AMYLASE 36,000 UNIT CAPSULE PO SCH ×2 (08:56→12:06)
[2019-05-10 09:25] LABS: BASO % 0.3 % (0-2.0); HEMATOCRIT 28.7 % (35.4-49); HEMOGLOBIN 9.6 GM/dL (11.7-16.9); MCH 30.1 pg (25.7-33.7); MCHC 33.4 g/dl (32.0-35.9); MEAN CELL VOLUME 89.9 fl (80-96); MONO % 7.8 % (3.8-10.2); NEUT % 68.9 % (42.8-82.8); PLATELET COUNT 209 K/MM3 (134-434); RBC 3.19 M/mm3 (4.00-5.60); RDW 13.9 % (11.9-15.9); WHITE BLOOD COUNT 10.2 K/mm3 (4.0-10.0)
[2019-05-10 10:07] LABS: ALBUMIN 1.8 g/dl (3.4-5.0); BILIRUBIN,TOTAL 0.5 mg/dL (0.2-1); BLOOD UREA NITROGEN 14.6 mg/dL (7-18); CALCIUM 7.4 mg/dL (8.5-10.1); CREATININE 1.8 mg/dL (0.55-1.3); MAGNESIUM 1.8 mg/dL (1.8-2.4); PHOSPHOROUS 2.4 mg/dL (2.5-4.9); POTASSIUM 3.6 mmol/L (3.5-5.1); TOT PROT 4.3 g/dl (6.4-8.2)
[2019-05-10] MEDS: PANTOPRAZOLE SODIUM 40 MG VIAL IVPUSH SCH (10:15)
[2019-05-10] MEDS: SUCRALFATE 1 GM/10 ML UNIT DOSE CUPS PO SCH ×2 (10:15→13:45)
[2019-05-10] MEDS: NIFEdipine E.R. 90 MG TABLET (FP) PO SCH (10:16)
[2019-05-10] MEDS: CARVEDILOL 12.5 MG TABLET (FP) PO SCH (10:16)
--- NOTE | 2019-05-10 10:19 | PN ---
Progress Note, Physician History of Present Illness: stable minimal abd pain - Current Medication List Current Medications: Active Medications Carvedilol (Coreg -) 12.5 mg PO BID [facility] Last Admin: 05/10/19 10:16 Dose: 12.5 mg Insulin Aspart (Novolog Vial Sliding Scale -) 1 vial SQ ACHS [facility]; Protocol Last Admin: 05/10/19 06:24 Dose: Not Given Insulin Detemir (Levemir Vial) 10 units SQ AM [facility] Last Admin: 05/10/19 06:24 Dose: 10 units Levofloxacin (Levaquin -) 500 mg PO DAILY@0600 [facility] Last Admin: 05/10/19 10:16 Dose: 500 mg Metronidazole (Flagyl -) 250 mg PO TID [facility] Stop: 05/24/19 13:59 Nifedipine (Procardia Xl -) 90 mg PO DAILY [facility] Last Admin: 05/10/19 10:16 Dose: 90 mg Ondansetron HCl (Zofran -) 4 mg PO Q8H PRN PRN Reason: NAUSEA AND/OR VOMITING Pancrelipase (Creon Dr 36,000 Units Capsule) 1 cap PO TIDCM [facility] Last Admin: 05/10/19 08:56 Dose: 1 cap Pantoprazole Sodium (Protonix Iv) 40 mg IVPUSH DAILY [facility] Last Admin: 05/10/19 10:15 Dose: 40 mg Simethicone (Mylicon -) 80 mg PO QID PRN PRN Reason: GAS Last Admin: 05/10/19 06:59 Dose: 80 mg Sucralfate (Carafate Oral Suspension -) 1 gm PO QID [facility] Last Admin: 05/10/19 10:15 Dose: 1 gm - Objective Vital Signs: Vital Signs Temperature 98.3 F 05/10/19 09:03 Pulse Rate 79 05/10/19 09:03 Respiratory Rate 18 05/10/19 09:03 Blood Pressure 130/69 05/10/19 09:03 O2 Sat by Pulse Oximetry (%) 98 05/09/19 21:00 Constitutional: Yes: No Distress, Calm Cardiovascular: Yes: S1, S2 Respiratory: Yes: Regular, CTA Bilaterally Gastrointestinal: Yes: Normal Bowel Sounds, Soft Musculoskeletal: Yes: WNL Extremities: Yes: WNL Neurological: Yes: Alert, Oriented Psychiatric: Yes: Alert, Oriented Labs: CBC, BMP 05/10/19 07:30 05/10/19 07:30 INR, PTT INR 1.11 (0.83-1.09) H 05/02/19 08:25 Assessment/Plan Problem List - Problems (1) VAISHNAVI (acute kidney injury) Code(s): N17.9 - ACUTE KIDNEY FAILURE, UNSPECIFIED (2) Abdominal pain Code(s): R10.9 - UNSPECIFIED ABDOMINAL PAIN (3) Hypertensive emergency Code(s): I16.1 - HYPERTENSIVE EMERGENCY vomiting nausea plan continue current mgmt rest as per the team
--- NOTE | 2019-05-10 13:10 | PN ---
Progress Note, Physician History of Present Illness: The patient is a 58 year old black male, with a significant past medical history of GI bleed (03/2018, requiring carafate), dm, htn, chronic abdominal pain, ?h pylori, ?peripheral neuropathy, PAD (s/p bilateral 5th toe amputations ) and anemia (unknown cause, ?recent colonoscopy and endoscopy scheduled for 11/17), who presents to the emergency department with 3 days of progressively worsening burning epigastric abdominal pain with associated hematemesis (dark, watery red) and melena. As per patient, his symptoms initially onset yesterday but, worsened yesterday with associated subjective fevers, chills, and diaphoresis. He notes his symptoms to be similar to his previous episode of a GI bleed (unknown if upper or lower). He denies any recent fevers, chills, headache or dizziness. He denies any recent chest pain or shortness of breath. He denies any recent dysuria, frequency, urgency or hematuria. Pt denies personal or family hx CAD or CVA. Never smoked; occasional glass of alcohol (never a heavy drinker); denies illicit drugs. Walks regularly; denies chest pain or dyspnea. Allergies: NKA GI: Dr. Mnauel - Current Medication List Current Medications: Active Medications Carvedilol (Coreg -) 12.5 mg PO BID [facility] Last Admin: 05/10/19 10:16 Dose: 12.5 mg Insulin Aspart (Novolog Vial Sliding Scale -) 1 vial SQ ACHS [facility]; Protocol Last Admin: 05/10/19 12:10 Dose: 4 units Insulin Detemir (Levemir Vial) 10 units SQ AM [facility] Last Admin: 05/10/19 06:24 Dose: 10 units Levofloxacin (Levaquin -) 500 mg PO DAILY@0600 [facility] Last Admin: 05/10/19 10:16 Dose: 500 mg Metronidazole (Flagyl -) 250 mg PO TID [facility] Stop: 05/24/19 13:59 Nifedipine (Procardia Xl -) 90 mg PO DAILY [facility] Last Admin: 05/10/19 10:16 Dose: 90 mg Ondansetron HCl (Zofran -) 4 mg PO Q8H PRN PRN Reason: NAUSEA AND/OR VOMITING Pancrelipase (Nena Hodge 36,000 Units Capsule) 1 cap PO TIDCM [facility] Last Admin: 05/10/19 12:06 Dose: 1 cap Pantoprazole Sodium (Protonix Iv) 40 mg IVPUSH DAILY [facility] Last Admin: 05/10/19 10:15 Dose: 40 mg Simethicone (Mylicon -) 80 mg PO QID PRN PRN Reason: GAS Last Admin: 05/10/19 06:59 Dose: 80 mg Sucralfate (Carafate Oral Suspension -) 1 gm PO QID [facility] Last Admin: 05/10/19 10:15 Dose: 1 gm - Objective Vital Signs: Vital Signs Temperature 98.3 F 05/10/19 09:03 Pulse Rate 79 05/10/19 09:03 Respiratory Rate 18 05/10/19 09:03 Blood Pressure 130/69 05/10/19 09:03 O2 Sat by Pulse Oximetry (%) 98 05/09/19 21:00 Eyes: Yes: WNL, Conjunctiva Clear, EOM Intact HENT: Yes: WNL, Atraumatic, Normocephalic Neck: Yes: WNL, Supple, Trachea Midline Cardiovascular: Yes: WNL, Regular Rate and Rhythm Respiratory: Yes: WNL, Regular, CTA Bilaterally Gastrointestinal: Yes: WNL, Normal Bowel Sounds Genitourinary: Yes: WNL Musculoskeletal: Yes: WNL Extremities: Yes: WNL Edema: No Integumentary: Yes: WNL Neurological: Yes: WNL, Alert, Oriented ...Motor Strength: WNL Psychiatric: Yes: WNL Labs: CBC, BMP 05/10/19 07:30 05/10/19 07:30 INR, PTT INR 1.11 (0.83-1.09) H 05/02/19 08:25 Problem List - Problems (1) Abdominal pain Code(s): R10.9 - UNSPECIFIED ABDOMINAL PAIN (2) Diabetes Code(s): E11.9 - TYPE 2 DIABETES MELLITUS WITHOUT COMPLICATIONS (3) Elevated troponin Code(s): R79.89 - OTHER SPECIFIED ABNORMAL FINDINGS OF BLOOD CHEMISTRY (4) [place] cardiac risk >20% in next 10 years Code(s): Z91.89 - OTH PERSONAL RISK FACTORS, NOT ELSEWHERE CLASSIFIED (5) Hypertensive emergency Code(s): I16.1 - HYPERTENSIVE EMERGENCY (6) Intractable vomiting Code(s): R11.10 - VOMITING, UNSPECIFIED (7) PAD (peripheral artery disease) Code(s): I73.9 - PERIPHERAL VASCULAR DISEASE, UNSPECIFIED (8) Periumbilical pain Code(s): R10.33 - PERIUMBILICAL PAIN (9) Renal dysfunction Code(s): N28.9 - DISORDER OF KIDNEY AND URETER, UNSPECIFIED (10) Uncontrolled diabetes mellitus Code(s): E11.65 - TYPE 2 DIABETES MELLITUS WITH HYPERGLYCEMIA Assessment/Plan - Problems (1) Diabetes Code(s): E11.9 - TYPE 2 DIABETES MELLITUS WITHOUT COMPLICATIONS (2) Abdominal pain Assessment/Plan: ?pancreatitis (MRI) F?u with GI Code(s): R10.9 - UNSPECIFIED ABDOMINAL PAIN (3) Hypertensive emergency Assessment/Plan: On carvedilol and nifedipine (the latter was increased to 90 mg daily). F/u BP serially; gradually appears to be improving. ECHO: Normal LVEF: moderate LVH. Code(s): I16.1 - HYPERTENSIVE EMERGENCY (4) Intractable vomiting Assessment/Plan: CT, MRI abdomen results noted: ? pancreatitis F/u with GI. Code(s): R11.10 - VOMITING, UNSPECIFIED (5) Elevated troponin Assessment/Plan: mild elevation in TNI (maximum 0.10); rising CK, with low CKMB relative index. EKG: NSR; incompliete RBBB; T wave changes inferiorly. ECHO: normal LVEF; moderate LVH; regional wall motion abnormalities not noted. s/p amputation of both 5th toes. Given pt's multiple risks for CAD, would recommend evaluation (starting with stress test, if not done recently) when stable. This may be done as outpatient. Code(s): R79.89 - OTHER SPECIFIED ABNORMAL FINDINGS OF BLOOD CHEMISTRY (6) PAD (peripheral artery disease) Assessment/Plan: s/p amputation of both 5th toes. F/u vascular studies. Code(s): I73.9 - PERIPHERAL VASCULAR DISEASE, UNSPECIFIED (7) Renal dysfunction Code(s): N28.9 - DISORDER OF KIDNEY AND URETER, UNSPECIFIED (8) [place] cardiac risk >20% in next 10 years Code(s): Z91.89 - OTH PERSONAL RISK FACTORS, NOT ELSEWHERE CLASSIFIED (9) Hypoalbuminemia Code(s): E88.09 - OTH DISORDERS OF PLASMA-PROTEIN METABOLISM, NEC (10) Diastolic CHF Assessment/Plan: echo: normal LVEF, with moderate LVH. On carvedilol and nifedipine. F/u BUN/Cr, electrolytes, daily weight, Is and Os. Control of BP is essential. Code(s): I50.30 - UNSPECIFIED DIASTOLIC (CONGESTIVE) HEART FAILURE (11) Anemia Code(s): D64.9 - ANEMIA, UNSPECIFIED (12) Hypokalemia Assessment/Plan: replete, and keep K 4-4.5 f/u all electrolytes. Code(s): E87.6 - HYPOKALEMIA
[2019-05-10] MEDS ORDERED: metroNIDAZOLE 250 MG TABLET PO SCH (14:00)
--- NOTE | 2019-05-10 14:02 | PN ---
Progress Note, Physician History of Present Illness: Pt seen and examined at bedside. He is awake and alert. He is tolerating diet. - Current Medication List Current Medications: Active Medications Carvedilol (Coreg -) 12.5 mg PO BID [facility] Last Admin: 05/10/19 10:16 Dose: 12.5 mg Insulin Aspart (Novolog Vial Sliding Scale -) 1 vial SQ ACHS [facility]; Protocol Last Admin: 05/10/19 12:10 Dose: 4 units Insulin Detemir (Levemir Vial) 10 units SQ AM [facility] Last Admin: 05/10/19 06:24 Dose: 10 units Levofloxacin (Levaquin -) 500 mg PO DAILY@0600 [facility] Last Admin: 05/10/19 10:16 Dose: 500 mg Metronidazole (Flagyl -) 250 mg PO TID [facility] Stop: 05/24/19 13:59 Last Admin: 05/10/19 13:45 Dose: 250 mg Nifedipine (Procardia Xl -) 90 mg PO DAILY [facility] Last Admin: 05/10/19 10:16 Dose: 90 mg Ondansetron HCl (Zofran -) 4 mg PO Q8H PRN PRN Reason: NAUSEA AND/OR VOMITING Pancrelipase (Creon Dr 36,000 Units Capsule) 1 cap PO TIDCM [facility] Last Admin: 05/10/19 12:06 Dose: 1 cap Pantoprazole Sodium (Protonix Iv) 40 mg IVPUSH DAILY [facility] Last Admin: 05/10/19 10:15 Dose: 40 mg Simethicone (Mylicon -) 80 mg PO QID PRN PRN Reason: GAS Last Admin: 05/10/19 06:59 Dose: 80 mg Sucralfate (Carafate Oral Suspension -) 1 gm PO QID [facility] Last Admin: 05/10/19 13:45 Dose: 1 gm - Objective Vital Signs: Vital Signs Temperature 98.3 F 05/10/19 09:03 Pulse Rate 79 05/10/19 09:03 Respiratory Rate 18 05/10/19 09:03 Blood Pressure 130/69 05/10/19 09:03 O2 Sat by Pulse Oximetry (%) 98 05/10/19 09:00 Constitutional: Yes: Calm Eyes: Yes: Conjunctiva Clear HENT: Yes: Atraumatic Neck: Yes: Supple Cardiovascular: Yes: S1, S2 Respiratory: Yes: CTA Bilaterally Gastrointestinal: Yes: Soft Genitourinary: Yes: [place] Present Musculoskeletal: Yes: WNL Edema: No Neurological: Yes: Oriented Psychiatric: Yes: Oriented Labs: CBC, BMP 05/10/19 07:30 05/10/19 07:30 INR, PTT INR 1.11 (0.83-1.09) H 05/02/19 08:25 Problem List - Problems (1) VAISHNAVI (acute kidney injury) Code(s): N17.9 - ACUTE KIDNEY FAILURE, UNSPECIFIED (2) Abdominal pain Code(s): R10.9 - UNSPECIFIED ABDOMINAL PAIN (3) Hypertensive emergency Code(s): I16.1 - HYPERTENSIVE EMERGENCY Assessment/Plan Current Medications Generic Name Dose Route Start Last Admin Trade Name Freq PRN Reason Stop Dose Admin Carvedilol 12.5 mg 05/07/19 14:56 05/10/19 10:16 Coreg - PO 12.5 mg BID [facility] Administration Insulin Aspart 1 vial 05/06/19 07:00 05/10/19 12:10 Novolog Vial Sliding Scale - SQ 4 units ACHS [facility] Administration Protocol Insulin Detemir 10 units 05/06/19 07:00 05/10/19 06:24 Levemir Vial SQ 10 units AM [facility] Administration Levofloxacin 500 mg 05/10/19 09:30 05/10/19 10:16 Levaquin - PO 500 mg DAILY@0600 [facility] Administration Metronidazole 250 mg 05/10/19 14:00 05/10/19 13:45 Flagyl - PO 05/24/19 13:59 250 mg TID [facility] Administration Nifedipine 90 mg 05/06/19 10:00 05/10/19 10:16 Procardia Xl - PO 90 mg DAILY [facility] Administration Ondansetron HCl 4 mg 05/08/19 08:16 Zofran - PO Q8H PRN NAUSEA AND/OR VOMITING Pancrelipase 1 cap 05/08/19 12:00 05/10/19 12:06 Nena Hodge 36,000 Units Capsule PO 1 cap TIDCM [facility] Administration Pantoprazole Sodium 40 mg 05/09/19 10:00 05/10/19 10:15 Protonix Iv IVPUSH 40 mg DAILY [facility] Administration Simethicone 80 mg 05/08/19 08:15 05/10/19 06:59 Mylicon - PO 80 mg QID PRN Administration GAS Sucralfate 1 gm 05/06/19 10:00 05/10/19 13:45 Carafate Oral Suspension - PO 1 gm QID [facility] Administration Impression 1. VAISHNAVI 2. HTN 3. DM 4. anemia 5. bph 6. CKD 7. gastroparesis Plan - renal function stable - voiding trial - decrease procardia to 60 - add losartan - replace phos - cont to monitor bp
[2019-05-10] MEDS ORDERED: NIFEdipine E.R 60 MG TABLET (UD) PO SCH (14:03)
--- NOTE | 2019-05-10 14:25 | PN ---
Teaching Attending Note Name of Resident: Lulu Lewis ATTENDING PHYSICIAN STATEMENT I saw and evaluated the patient. I reviewed the resident's note and discussed the case with the resident. I agree with the resident's findings and plan as documented. SUBJECTIVE:Patient was admitted with a colitis he is improved eating well no stomach pain. 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
[2019-05-10] MEDS ORDERED: SODIUM PHOSPHATE - 20 MM in SODIUM CHLORIDE 250 ML IVPB ONE (14:30)
[2019-05-10 15:09] VITALS: BP 113/69; PULSE 78; TEMP 97.9
--- NOTE | 2019-05-10 16:15 | DS ---
Physical Exam: SUBJECTIVE: Patient seen and examined at bedside. States he is feeling great. Has been tolerating diet and does not have nausea or diarrhea. Would like to go home. OBJECTIVE: Vital Signs Period Temp Pulse Resp BP Sys/Aceves Pulse Ox Last 24 Hr 97.9 F-99.3 F 78-86 18-19 113-155/69-82 98-98 Physical Exam general: resting in bed, in mild distress. nauseated heent: NCAT, PERRLA neck: supple cardio: S1, S2 RRR. no r/m/g pulm: cta b/l. no accessory m usage abdomen: soft, obese, no tenderness to palpation. 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 machine 2-12 grossly intact LABS Laboratory Results - last 24 hr 05/09/19 05/09/19 05/10/19 17:47 21:33 06:22 WBC RBC Hgb Hct MCV MCH MCHC RDW Plt Count MPV Absolute Neuts (auto) Neutrophils % Lymphocytes % Monocytes % Eosinophils % Basophils % Nucleated RBC % Sodium Potassium Chloride Carbon Dioxide Anion Gap BUN Creatinine Est GFR (CKD-EPI)AfAm Est GFR (CKD-EPI)NonAf POC Glucometer 166 171 140 Random Glucose Calcium Phosphorus Magnesium Total Bilirubin AST ALT Alkaline Phosphatase Total Protein Albumin 05/10/19 05/10/19 05/10/19 07:30 07:30 12:08 WBC 10.2 H RBC 3.19 L Hgb 9.6 L Hct 28.7 L MCV 89.9 MCH 30.1 MCHC 33.4 RDW 13.9 Plt Count 209 MPV 10.0 Absolute Neuts (auto) 7.0 Neutrophils % 68.9 Lymphocytes % 22.0 D Monocytes % 7.8 Eosinophils % 1.0 D Basophils % 0.3 Nucleated RBC % 0 Sodium 141 Potassium 3.6 Chloride 110 H Carbon Dioxide 25 Anion Gap 6 L BUN 14.6 Creatinine 1.8 H Est GFR (CKD-EPI)AfAm 47.70 Est GFR (CKD-EPI)NonAf 41.16 POC Glucometer 202 Random Glucose 174 H Calcium 7.4 L Phosphorus 2.4 L Magnesium 1.8 Total Bilirubin 0.5 AST 35 ALT 26 Alkaline Phosphatase 72 Total Protein 4.3 L Albumin 1.8 L 05/01/19 05/02/19 05/02/19 21:10 00:20 08:25 WBC 15.6 H 16.4 H Hgb 12.6 11.7 11.3 L Hct 38.1 36.0 35.4 Plt Count 306 274 281 05/02/19 05/03/19 05/04/19 18:00 06:00 06:15 WBC 19.3 H 19.6 H Hgb 11.1 L 11.2 L 11.5 L Hct 34.3 L 34.1 L 35.6 Plt Count 272 271 257 05/05/19 05/06/19 05/07/19 06:15 07:08 07:07 WBC 15.9 H 11.9 H 11.1 H Hgb 11.3 L 10.9 L 9.8 L Hct 34.3 L 33.1 L 29.5 L Plt Count 247 217 195 05/08/19 05/09/19 05/10/19 07:10 09:04 07:30 WBC 11.0 H 11.2 H 10.2 H Hgb 10.0 L 9.3 L 9.6 L Hct 30.0 L 28.1 L 28.7 L Plt Count 189 204 209 05/01/19 05/02/19 21:10 08:25 PT with INR 12.90 13.10 H INR 1.09 1.11 H 05/03/19 15:00 ABG pH 7.41 ABG pCO2 at Pt Temp 44.2 ABG pO2 at Pt Temp 82.2 ABG HCO3 27.7 H ABG O2 Sat (Measured) 95.9 ABG O2 Content 17.3 ABG Base Excess 3.1 H 05/01/19 05/01/19 05/01/19 21:10 21:10 21:10 Sodium Potassium Chloride Carbon Dioxide Anion Gap BUN Creatinine Random Glucose Hemoglobin A1c % Lactic Acid 2.1 H Calcium Phosphorus Magnesium Total Bilirubin AST ALT Alkaline Phosphatase Creatine Kinase 1278 H Creatine Kinase Index 0.4 CK-MB (CK-2) 5.7 H Troponin I 0.04 Total Protein 6.3 L Albumin 2.8 L Triglycerides Cholesterol Total LDL Cholesterol HDL Cholesterol Lipase 71 L TSH 0.22 L Free T4 1.13 05/02/19 05/02/19 05/02/19 00:20 00:20 00:20 Sodium 148 H Potassium 3.6 Chloride 111 H Carbon Dioxide 27 Anion Gap 10 BUN 24.0 H Creatinine 1.9 H Random Glucose Hemoglobin A1c % Lactic Acid Calcium Phosphorus Magnesium Total Bilirubin AST ALT Alkaline Phosphatase Creatine Kinase 1186 H Creatine Kinase Index 0.4 CK-MB (CK-2) 5.2 H Troponin I 0.07 H Total Protein 5.8 L Albumin 2.6 L Triglycerides Cholesterol Total LDL Cholesterol HDL Cholesterol Lipase TSH Free T4 1.11 05/02/19 05/02/19 05/02/19 03:20 08:25 08:25 Sodium 146 H Potassium 3.8 Chloride 111 H Carbon Dioxide 28 Anion Gap 8 BUN 26.0 H Creatinine 2.0 H Random Glucose Hemoglobin A1c % 8.0 H Lactic Acid 3.2 H* Calcium Phosphorus Magnesium Total Bilirubin AST ALT Alkaline Phosphatase Creatine Kinase Creatine Kinase Index CK-MB (CK-2) Troponin I Total Protein 5.7 L Albumin 2.5 L Triglycerides Cholesterol Total LDL Cholesterol HDL Cholesterol Lipase TSH Free T4 05/02/19 05/03/19 05/03/19 08:25 06:00 17:30 Sodium Potassium Chloride Carbon Dioxide Anion Gap BUN Creatinine Random Glucose Hemoglobin A1c % Lactic Acid 3.0 H* Calcium Phosphorus Magnesium Total Bilirubin AST 47 H ALT 28 Alkaline Phosphatase Creatine Kinase 2138 H Creatine Kinase Index CK-MB (CK-2) 5.9 H Troponin I 0.10 H Total Protein 5.1 L 5.0 L Albumin 2.4 L 2.1 L Triglycerides 128 Cholesterol 185 Total LDL Cholesterol 91 HDL Cholesterol 71 H Lipase TSH Free T4 05/03/19 05/04/19 05/05/19 17:30 06:15 06:00 Sodium Potassium Chloride Carbon Dioxide Anion Gap BUN Creatinine Random Glucose 198 H Hemoglobin A1c % Lactic Acid Calcium 7.5 L Phosphorus 2.7 Magnesium 2.0 Total Bilirubin 1.5 H 0.2 AST 47 H 40 H ALT 27 24 Alkaline Phosphatase 85 74 Creatine Kinase 2034 H Creatine Kinase Index 0.3 CK-MB (CK-2) 7.0 H Troponin I 0.09 H Total Protein 4.6 L 4.4 L Albumin 2.0 L 1.9 L Triglycerides Cholesterol Total LDL Cholesterol HDL Cholesterol Lipase TSH Free T4 05/06/19 07:08 Sodium Potassium Chloride Carbon Dioxide Anion Gap BUN Creatinine Random Glucose Hemoglobin A1c % Lactic Acid Calcium Phosphorus Magnesium Total Bilirubin AST ALT Alkaline Phosphatase Creatine Kinase Creatine Kinase Index CK-MB (CK-2) Troponin I Total Protein Albumin 1.8 L Triglycerides Cholesterol Total LDL Cholesterol HDL Cholesterol Lipase TSH Free T4 05/02/19 05/06/19 05/06/19 13:20 15:15 15:15 Urine Protein 3+ H Urine Glucose (UA) Trace Urine Ketones Negative Urine Blood 3+ H Urine Nitrite Negative Urine Bilirubin Negative Ur Random Creatinine 199.0 H U Random Total Protein 399.4 H 05/01/19 22:02 Stool Occult Blood Negative 05/02/19 05/02/19 08:25 13:20 Opiates Screen Negative Methadone Screen Negative Barbiturate Screen Negative Phencyclidine Screen Negative Ur Amphetamines Screen Negative MDMA (Ecstasy) Screen Negative Benzodiazepines Screen Negative Cocaine Screen Negative Alcohol, Quantitative < 3 05/03/19 20:00 HIV 1&2 Antibody Screen Negative HIV P24 Antigen Negative Imaging 05/01/19: CXR: (-) for acute pathology 05/01/19: CTAP, CT chest: marked limited study, nodularity in lower pole L lobe thyroid, mild chronic lung disease, mild hepatomegaly with diffuse fatty infiltration. no acute path in abdomen or pelvis 05/01/19: CTH: mild volume loss. no gross evidence of focal intracranial lesion or hemorrhage is seen. almost totally opacified sphenoid sinus with dense calcifications consistent with chronic sinusitis. can't r/o fungal infection of calcifications 05/02/19: abd sono: dilated CBD 7-8mm, distal obstructive process should be excluded. correlate with LTs and bilirubin level. If indicated, MRI and MRCP may be obtained. apparent segmental atrophy of pancreatic body/prox pancreatic tail. could be normal variant or ?occult malignancy. correlate with MRI with contrast. mild hepatomegaly. nonspecific increased renal cortical echogenicity suggesting chronic medical renal dz. 05/03/19: CTAP: distal ileal bowel loops with subtle concentric wall edema and perienteric mesenteric edema. CT appearance is nonspecific. infectious vs. inflamm vs. ischemic. mildly increased fluid in colon without obvious associated wal edema or pericolonic edema. small amount of pelvic free fluid seen.moderate focal luminal narrowing of prox celiac artery could present a focal stenosis. correlate with doppler. a subtle possible 0.3cm pancreatic body cyst is noted. mild nonspecific prominence of main pancreatic duct in head. suggest MRCP 05/08/19: abdomen MRI: nonspecific diffuse mesenteric and subcutaneous edema suggesting third spacing. possible diffuse pancreatic tissue edema. correlate clinically for pancreatitis. no focal pancreatic lesion identified and no pancreastic duct dilation seen. no cholelithiasis, choledocholithiasis or biliary duct dilation seen. Microbiology 05/05/19 12:10 Stool Clostridioides difficile Antigen - Final 05/05/19 12:10 Stool Clostridioides difficile Toxin Assay - Final 05/04/19 16:45 Stool Salmonella/Shigella Culture - Final 05/04/19 16:45 Stool Escherichia coli 0157 Culture - Final NO GROWTH OF SALMONELLA OR SHIGELLA SPECIES OBTAINED NO GROWTH OF YERSINIA SPECIES OBTAINED NO GROWTH OF VIBRIO SPECIES OBTAINED NO GROWTH OF E COLI 0157 OBTAINED 05/04/19 16:45 Stool Gram Stain - Final 05/02/19 13:20 Urine - Urine Trinidad Urine Culture - Final NO GROWTH OBTAINED 05/02/19 00:15 Blood - Peripheral Venous Blood Culture - Final NO GROWTH AFTER 5 DAYS INCUBATION 05/02/19 00:15 Blood - Peripheral Venous Blood Culture - Final NO GROWTH AFTER 5 DAYS INCUBATION HOSPITAL COURSE: Date of Admission:05/02/19 Date of Discharge: 05/10/19 58 year old man with a history of HTN, type 2 DM, anemia, BPH who presented to the ED with abdominal pain, nausea, and vomiting. #Abdominal pain, N/V -possible 2/2 ?pancreatitis, intra-abdominal infection -will also need to r/o ischemia, initial sx eval reviewed. can f/u reconsultation as outpatient as pt currently asymptomatic, tolerating PO, no vomiting or diarrhea. -restarted on flagyl (05/09) for possible SIBO however d/c home on flagyl 250mg TID x 2 week course, levaquin x 1 week -c/w creon, protonix,mylicon, sucralfate -c.diff (-), other cx negative. c/w outpatient f/u: -ID: Dr. Del Valle -Sx: Dr. Berumen -GI: Dr. Manuel -Cardio: Dr. Sanchez #HTN- uncontrolled -c/w procardia, coreg on d/c #Tropinemia -peaked, do not need to keep trending -likely 2/2 demand ischemia -will need outpatient stress test #Chronic diastolic HF -stable #T2DM -c/w home regimen, given endocrine f/u Dr. Munoz #Stage 3 CKD -c/t monitor Minutes to complete discharge: 48 Discharge Summary Problems reviewed: Yes Reason For Visit: HYPERTENSIVE EMERGENC,PERIUMBILICAL ABDOMINAL Condition: Stable - Instructions Diet, Activity, Other Instructions: You were in the hospital because you had abdominal pain, nausea, vomiting and diarrhea. You underwent multiple imaging studies. You were found to have swelling around your pancreas, as well as a pancreatic cyst. You were evaluated by a primary medical team as well as a respiratory care practitioner (GI) doctor. You were treated with IV antibiotics, IV fluids, and improved. On discharge, you are no longer symptomatic. You are being sent home. Medications Please continue to take the following medications at home upon your discharge: 1. Flagyl 250mg (1 pill) three times a day for 14 days starting tomorrow 2. Levaquin 500mg ( 1pill)once a day for 7 days 3. You can continue to take simethicone 80mg every six hours as needed for gas pain 4. Continue protonix 40mg daily to help reduce acid in your stomach. 5. Sucralfate 1gm every six hours 6. Creon pancreatic enzymes: 1 capsule three times a day, with meals . Helps with digestion due to your pancreas problem 7. Continue with your home diabetic medications of insulin, levemir, however you must be diligent about checking your blood glucose and following with your primary care physician or an director of safety and security (diabetes doctor). 8. You were started on new medications for your blood pressure: nifedipine ( procardia) take 90mg daily, coreg (carvedilol)- 12.5mg twice a day We have held your lisinopril in the hospital due to your kidney function. Do not take this without first talking to your primary doctor or your kidney doctor. Testing You will need to have a repeat EKG done to have your qtc checked, as you are on levaquin. this must be done by your primary care physician this week. Follow-up Please follow with the following doctors upon your discharge: 1. We have set you up with a primary care physician, Dr. Carter - please see her this upcoming week to discuss your hospital visit. She will have access to your files 2. Please follow with GI (gastroenterology) doctor, Dr. Manuel who saw you in the hospital this week 3. Surgeon, Dr. Berumen who saw you in the hospital - this week 4. Crusher Plant Operator (kidney doctor), Dr. García - [address] , Dr. Sanchez- 1 week. You will need a stress test done as an outpatient 6. Dock Loader, Dr. Munoz - 1 week Referrals: Akira Carter MD [Staff Physician] - 1 Week David Manuel MD [Staff Physician] - 1 Week Brando Sanchez MD [Staff Physician] - 1 Week Sanna García MD [Staff Physician] - 1 Week Andrea Morales MD [Staff Physician] - 1 Week Bubba Berumen MD [Staff Physician] - 1 Week Disposition: HOME - Home Medications Comprehensive Discharge Medication List: Ambulatory Orders Insulin Glargine,Hum.rec.anlog [Lantus Solostar PEN -] 30 units SQ HS 06/26/15 Atorvastatin Calcium 40 mg PO DAILY 05/02/19 Gabapentin 1 cap PO HS 05/02/19 Insulin (Novolog) [Novolog -] 05/02/19 Carvedilol [Coreg -] 12.5 mg PO BID #60 tablet 05/10/19 Lipase/Protease/Amylase [Nena Hodge 36,000 Units Capsule] 1 cap PO TIDCM #90 capsule. 05/10/19 Nifedipine ER [Procardia XL -] 90 mg PO DAILY #30 tab.er.24 05/10/19 Pantoprazole Sodium [Protonix] 40 mg PO DAILY #30 tablet. 05/10/19 Simethicone [Mylicon -] 80 mg PO QID PRN #120 tab.chew 05/10/19 Sucralfate Oral Suspension [Carafate Oral Suspension -] 1 gm PO QID #1 bottle levoFLOXacin [Levaquin -] 500 mg PO DAILY@0600 #7 tablet 05/10/19 metroNIDAZOLE [Flagyl -] 250 mg PO TID #42 tablet 05/10/19 This patient is new to me today: No Emergency Visit: No Critical Care patient: No - Discharge Referral Referred to [facility] No
[2019-05-11] MEDS ORDERED: LOSARTAN POTASSIUM 25 MG TABLET PO SCH (10:00)
== END 2019-05-10 15:03 | disposition home or self-care (01) | DRG 282 ==
LOC: JER 20:18 → JERBED 05-02 01:37 → JICU 05-02 09:53 → J6S 05-05 23:44 → J5S 05-09 16:09
PROVIDERS: ADMIT Internal Medicine; ATTEND Internal Medicine
PROC: 0DB68ZX Excision of Stomach, Via Natural or Artificial Opening Endoscopic, Diagnostic (ICD-10-PCS; 2019-05-07)
PROC: 0DB58ZX Excision of Esophagus, Via Natural or Artificial Opening Endoscopic, Diagnostic (ICD-10-PCS; 2019-05-07)
PROC: 0DB98ZX Excision of Duodenum, Via Natural or Artificial Opening Endoscopic, Diagnostic (ICD-10-PCS; principal; 2019-05-07 13:30)
DX: K85.90 Acute pancreatitis without necrosis or infection, unspecified (principal); R10.9 Unspecified abdominal pain; I16.1 Hypertensive emergency; R11.2 Nausea with vomiting, unspecified; D72.829 Elevated white blood cell count, unspecified; K76.0 Fatty (change of) liver, not elsewhere classified; K31.7 Polyp of stomach and duodenum; E87.6 Hypokalemia; D64.9 Anemia, unspecified; E88.09 Other disorders of plasma-protein metabolism, not elsewhere classified; K52.9 Noninfective gastroenteritis and colitis, unspecified; K86.2 Cyst of pancreas; E11.43 Type 2 diabetes mellitus with diabetic autonomic (poly)neuropathy; I50.32 Chronic diastolic (congestive) heart failure; K92.2 Gastrointestinal hemorrhage, unspecified; K56.609 Unspecified intestinal obstruction, unspecified as to partial versus complete obstruction; K92.0 Hematemesis; N18.3 Chronic kidney disease, stage 3 (moderate); I24.8 Other forms of acute ischemic heart disease; N17.9 Acute kidney failure, unspecified; N40.0 Benign prostatic hyperplasia without lower urinary tract symptoms; E11.65 Type 2 diabetes mellitus with hyperglycemia; K31.84 Gastroparesis; Z91.14 Patient's other noncompliance with medication regimen; E86.0 Dehydration; K44.9 Diaphragmatic hernia without obstruction or gangrene; K29.50 Unspecified chronic gastritis without bleeding
CPT/HCPCS: 36415; 36600; 70450-TC; 71045-TC-FY; 71250-TC; 74176-TC; 74177-TC; 74181-TC; 76705-TC; 80053; 80061; 80307; 81003; 82272; 82436; 82550; 82553; 82565; 82570; 82728; 82803; 82962; 83036; 83540; 83550; 83605; 83690; 83721; 83735; 83930; 83935; 84100; 84133; 84156; 84300; 84439; 84443; 84481; 84484; 84540; 85025; 85027; 85610; 86850; 86900; 86901; 87040; 87045; 87046; 87086; 87186; 87205; 87324; 87389; 87427; 87449; 93005; 93010; 93306-TC; 99285-25; J0131; J1644; J7030; Q9967

== ENCOUNTER 2019-05-16 10:24 | Inpatient (IN) | payer OTHER ==
[2019-05-16] MEDS ORDERED: ONDANSETRON 4 MG/2 ML VIAL IVPUSH ONE (10:53)
[2019-05-16] MEDS ORDERED: ONDANSETRON 4 MG/2 ML VIAL ONE (10:59)
[2019-05-16] MEDS ORDERED: SODIUM CHLORIDE 1,000 ML IV SCH (11:00)
[2019-05-16] MEDS ORDERED: PANTOPRAZOLE SODIUM 40 MG/100 ML BAG IVPB ONE ×2 (11:05→23:04)
[2019-05-16] MEDS ORDERED: PANTOPRAZOLE SODIUM 40 MG VIAL IVPUSH ONE (11:09)
[2019-05-16] MEDS ORDERED: METOCLOPRAMIDE HCL INJECTION 10 MG/2 ML VIAL IVPUSH ONE (11:11)
--- NOTE | 2019-05-16 11:12 | PDOC ---
History of Present Illness - General Chief Complaint: Vomiting Blood Stated Complaint: VOMITING Time Seen by Provider: 05/16/19 10:42 History Source: Patient Exam Limitations: No Limitations - History of Present Illness Initial Comments: 05/16/19 11:15 58 yo male DM, HTN, anemia, BPH (s/p prostate procedure), recent ICU admission for htn urgency and vomiting of coffee ground material (past notes: [facility]' s EGD was done revealing iwona lara tears) and gastroparesis presents to the ED with bloody vomiting, elevated BP in the 190s systolic and headaches. Pt states the MENCHACA is new and has isolated RLL weakness. Pt states since Monday, 3 days after DC from hospital, he has been vomiting with every meal, unable to take all medications including antibiotics and BP meds. Denies F/C, significant abdominal pain, new back pain, CP, SOB, recent travel or sick contacts. NIH Stroke Scale - Last Known Well Date/Time & Onset Date Last Known Well: 05/16/19 Time Last Known Well: 08:00 - Initial Evaluation Level of consciousness: Alert Ask patient the month and their age: Answers both correctly Ask patient to open & close eyes; make fist and let go: Obeys both correctly Best gaze (horizontal eye movement): Normal Visual field testing: No visual field loss Facial paresis (Show teeth/raise eyebrows/close eyes tight): Normal symmetrical movement Motor Function: Left Arm: Normal Motor Function: Right Arm: Normal (extends arm 90 (or 45) degrees for 10 seconds without drift Motor Function: Left Leg: Normal (extends leg 30 degrees for 5 seconds without drift) Motor Function: Right Leg: Normal (extends leg 30 degrees for 5 seconds without drift) Limb Ataxia: No ataxia Sensory(Use pinprick test arms,legs,trunk,face/side to side): Normal Best language (Describe picture, name items, read sentences): No Aphasia Dysarthria (read several words): Normal articulation Extinction and Inattention: No abnormality - Total Score NIH Stroke Scale Score: 0 Past History - Past Medical History Allergies/Adverse Reactions: Allergies Allergy/AdvReac Type Severity Reaction Status Date / Time No Known Allergies Allergy Verified 05/01/19 20:56 Home Medications: Ambulatory Orders Insulin Glargine,Hum.rec.anlog [Lantus Solostar PEN -] 30 units SQ HS 06/26/15 Atorvastatin Calcium 40 mg PO DAILY 05/02/19 Gabapentin 1 cap PO HS 05/02/19 Carvedilol [Coreg -] 12.5 mg PO BID #60 tablet 05/10/19 Lipase/Protease/Amylase [Nena Hodge 36,000 Units Capsule] 1 cap PO TIDCM #90 capsule. 05/10/19 Nifedipine ER [Procardia XL -] 90 mg PO DAILY #30 tab.er.24 05/10/19 Pantoprazole Sodium [Protonix] 40 mg PO DAILY #30 tablet. 05/10/19 Simethicone [Mylicon -] 80 mg PO QID PRN #120 tab.chew 05/10/19 levoFLOXacin [Levaquin -] 500 mg PO DAILY@0600 #7 tablet 05/10/19 metroNIDAZOLE [Flagyl -] 250 mg PO TID #42 tablet 05/10/19 Insulin (Novolog) [Novolog -] 3 unit SCJ TID #1 units 05/20/19 Insulin Aspart [Novolog] 3 - 5 unit SQ AC #1 cartridge 05/20/19 Anemia: Yes COPD: No Diabetes: Yes GI Disorders: Yes Disorders: Yes (BPH) HTN: Yes - Surgical History Orthopedic Surgery: Yes (toe amputation) - Immunization History Immunization Up to Date: Yes - Psycho Social/Smoking Cessation Hx Smoking History: Never smoked Have you smoked in the past 12 months: No Hx Alcohol Use: No Drug/Substance Use Hx: No Substance Use Type: None Review of Systems - Review of Systems Constitutional: Yes: Symptoms Reported HEENTM: Yes: Symptoms Reported Respiratory: Yes: Symptoms reported Cardiac (ROS): Yes: Symptoms Reported ABD/GI: Yes: Nausea, Vomiting. No: Abdominal Distended, Constipated, Diarrhea, Abdominal cramping : Yes: Symptoms Reported Musculoskeletal: Yes: Symptoms Reported Integumentary: Yes: Symptoms Reported Neurological: Yes: Symptoms reported *Physical Exam - Vital Signs Last Vital Signs Temp Pulse Resp BP Pulse Ox 98.9 F 103 H 18 193/100 H 99 05/16/19 10:57 05/16/19 10:57 05/16/19 10:57 05/16/19 10:57 05/16/19 10:57 - Physical Exam General Appearance: Yes: Nourished, Appropriately Dressed, Apparent Distress HEENT: positive: EOMI, Normal ENT Inspection Neck: positive: Supple. negative: Rigid Respiratory/Chest: positive: Lungs Clear, Normal Breath Sounds. negative: Accessory Muscle Use, Labored Respiration, Rales, Rhonchi, Stridor, Wheezing, Hyperresonant Cardiovascular: positive: Regular Rhythm, S1, S2, Tachycardia. negative: Edema , JVD, Murmur Vascular Pulses: Dorsalis-Pedis (R): 4+, Doralis-Pedis (L): 4+ Gastrointestinal/Abdominal: positive: Flat, Soft. negative: Pulsatile Mass, Protuberent, Distended, Guarding, Rebound, Tenderness Musculoskeletal: negative: CVA Tenderness Extremity: positive: Normal Capillary Refill, Normal Inspection, Normal Range of Motion Integumentary: positive: Normal Color, Dry, Warm Neurologic: positive: student counsellor II-XII NML intact, Fully Oriented, Alert, Normal Mood/ Affect, Normal Response, Motor Strength 5/5, Sensory Deficit (bilateral lower ext). negative: Facial Droop, Numbness, Finger to Nose (normal), Confused, Disoriented ED Treatment Course - LABORATORY CBC & Chemistry Diagram: 05/19/19 06:30 05/19/19 06:30 - ADDITIONAL ORDERS Additional order review: Laboratory Results 05/16/19 10:45 POC Glucometer 319 05/16/19 10:45 POC Glucometer 319 - RADIOLOGY Radiology Studies Ordered: Category Date Time Status HEAD CT (STROKE) [CT] Stat CT Scan 05/16/19 10:51 Ordered Medical Decision Making - Medical Decision Making 58 yo male DM, HTN, anemia, BPH (s/p prostate procedure), recent ICU admission for htn urgency and vomiting of coffee ground material (past notes: [facility] s EGD was done revealing iwona laar tears) and gastroparesis presents to the ED with bloody vomiting, elevated BP in the 190s systolic and headaches. Pt states the MENCHACA is new and has isolated RLL weakness. Pt states since Monday, 3 days after DC from hospital, he has been vomiting with every meal, unable to take all medications including antibiotics and BP meds. Denies F/C, significant abdominal pain, new back pain, CP, SOB, recent travel or sick contacts. vitals show elevated BP Pt admits to frequent vomiting episodes leading to difficulty taking his BP medications NIH 0, on exam no appreciable RLE weakness Head CT neg for acute changes or stroke, noted chronic sinusitis likely fungal. Pt will require ID consult inpatient Labs show stable H/H, does not require transfusion at this time. No active hematemesis while in the ED Due to 474 QTC and likely gastroparesis, pt given reglan. Pt continues to vomit and will be admitted for intractable vomiting and hematemasis Discharge - Discharge Information Problems reviewed: Yes Clinical Impression/Diagnosis: Intractable vomiting, Hematemesis Condition: Good Disposition: HOME - Admission Yes - Follow up/Referral - Patient Discharge Instructions - Post Discharge Activity
[2019-05-16] MEDS ORDERED: METOCLOPRAMIDE HCL INJECTION 10 MG/2 ML VIAL ONE ×2 (11:16→20:08)
[2019-05-16 11:56] LABS: BASO % 0.2 % (0-2.0); EOS % 0.1 % (0-4.5); HEMATOCRIT 32.5 % (35.4-49); HEMOGLOBIN 10.7 GM/dL (11.7-16.9); LYMPH % 6.3 % (8-40); MEAN CELL VOLUME 90.9 fl (80-96); MEAN PLT VOLUME 9.3 fl (7.5-11.1); MONO % 7.2 % (3.8-10.2); NEUT % 86.2 % (42.8-82.8); PLATELET COUNT 304 K/MM3 (134-434); RBC 3.57 M/mm3 (4.00-5.60); RDW 14.2 % (11.9-15.9)
--- NOTE | 2019-05-16 11:58 | EKG ---
Test Reason : Blood Pressure : / mmHG Vent. Rate : 098 BPM Atrial Rate : 098 BPM P-R Int : 158 ms QRS Dur : 090 ms QT Int : 372 ms P-R-T Axes : 071 -59 070 degrees QTc Int : 474 ms NORMAL SINUS RHYTHM LEFT ANTERIOR FASCICULAR BLOCK POSSIBLE ANTEROSEPTAL INFARCT (CITED ON OR BEFORE 01-MAY-2019) ABNORMAL ECG WHEN COMPARED WITH ECG OF 09-MAY-2019 08:56, QUESTIONABLE CHANGE IN INITIAL FORCES OF SEPTAL LEADS NONSPECIFIC T WAVE ABNORMALITY, IMPROVED IN LATERAL LEADS Confirmed by FAYE CHILD MD ([id number]) on 05/16/2019 11:58:16 AM Referred By: Confirmed By:FAYE CHILD MD
[2019-05-16 12:09] LABS: INR 1.13 (0.83-1.09); PROTHROMBIN TIME (PATIENT) 13.4 SEC (9.7-13.0)
[2019-05-16 12:12] LABS: ACTIVATED PTT 29.4 SECONDS (25.2-36.5)
[2019-05-16 12:18] LABS: ALBUMIN 1.9 g/dl (3.4-5.0); BILIRUBIN,TOTAL 0.3 mg/dL (0.2-1); BLOOD UREA NITROGEN 17.7 mg/dL (7-18); CALCIUM 8.2 mg/dL (8.5-10.1); POTASSIUM 3.5 mmol/L (3.5-5.1); TOT PROT 4.9 g/dl (6.4-8.2)
[2019-05-16] MEDS ORDERED: ELECTROLYTE-148 SOLN 1,000 ML IV SCH ×2 (16:15→17:15)
[2019-05-16 16:52] LABS: HEMOGLOBIN 10.7 GM/dL (11.7-16.9); MCH 30.3 pg (25.7-33.7); MCHC 33.5 g/dl (32.0-35.9); MEAN CELL VOLUME 90.4 fl (80-96); MEAN PLT VOLUME 9.6 fl (7.5-11.1); PLATELET COUNT 306 K/MM3 (134-434); RBC 3.54 M/mm3 (4.00-5.60); RDW 14.1 % (11.9-15.9); WHITE BLOOD COUNT 17.3 K/mm3 (4.0-10.0)
--- NOTE | 2019-05-16 16:57 | HP ---
CHIEF COMPLAINT: Intractable nausea and Vomiting PCP: unknown HISTORY OF PRESENT ILLNESS: Pt. is 58 y.o. M w/ PMHx. of DM(diagnosed 25+ years ago), HTN, and BPH (s/p prostate surgery) present for nausea and vomiting that started on Monday. Pt. with mother at bedside states that he has been unable to keep anything down over the last 3 days including antibiotics. Pt. was recently seen and discharged on the for intractable nausea and vomiting, work up( Abdominal MRI, CT A/P) was largely unrevealing and Pt. was discharged on Flagyl and Levaquin for suspected Gastroenteritis? Microbiology panel was negative for any growths on cultures. EGD was benign, awaiting pathology results. Colonoscopy on 04/26/19 was unremarkable. Pt. endorses headache, b/l feet numbness that is chronic, and right lower extremity weakness that started once Pt. started vomiting. Per mother Pt. vomit looked brown like feces. Pt. endorses that his glucose at home hjas been in the 300s recently. Pt.'s mother is concerned that the Pt. has had this twitching in extremities for over a year. Pt. denies any fevers, chills, diarrhea, dysuria, blood in the stool or urine. ER course was notable for: (1)Reglan, Protonix, 1L NS (2) CBC, CMP, Trop - (3) Recent Travel: denies PAST MEDICAL HISTORY: DM, HTN, anemia, BPH ( s/p prostate procedure) PAST SURGICAL HISTORY: L toe amputation. prostate surgery Social History: Smoking:denies Alcohol:denies Drugs: denies, After Mother Left Pt. endorses smoking Marijuana around New Years. Allergies No Known Allergies Allergy (Verified 05/01/19 20:56) HOME MEDICATIONS: Home Medications Medication Instructions Recorded Insulin Glargine,Hum.rec.anlog 30 units SQ HS 06/26/15 [Lantus Solostar PEN -] Atorvastatin Calcium 40 mg PO DAILY 05/02/19 Gabapentin 1 cap PO HS 05/02/19 Insulin (Novolog) [Novolog -] 05/02/19 Carvedilol [Coreg -] 12.5 mg PO BID #60 tablet 05/10/19 Lipase/Protease/Amylase [Nena Hodge 1 cap PO TIDCM #90 capsule. 05/10/19 36,000 Units Capsule] Nifedipine ER [Procardia XL -] 90 mg PO DAILY #30 tab.er.24 05/10/19 Pantoprazole Sodium [Protonix] 40 mg PO DAILY #30 tablet.dr 05/10/19 Simethicone [Mylicon -] 80 mg PO QID PRN #120 tab.chew 05/10/19 Sucralfate Oral Suspension 1 gm PO QID #1 bottle 05/10/19 [Carafate Oral Suspension -] levoFLOXacin [Levaquin -] 500 mg PO DAILY@0600 #7 tablet 05/10/19 metroNIDAZOLE [Flagyl -] 250 mg PO TID #42 tablet 05/10/19 REVIEW OF SYSTEMS As above PHYSICAL EXAMINATION Vital Signs - 24 hr 05/16/19 05/16/19 05/16/19 10:48 10:56 10:57 Temperature 98.9 F 98.9 F Pulse Rate 103 H Pulse Rate [ 104 H Right Radial] Respiratory 20 18 Rate Blood Pressure 193/100 H Blood Pressure 193/100 H [Left Arm] O2 Sat by Pulse 97 98 99 Oximetry (%) 05/16/19 05/16/19 11:20 12:46 Temperature Pulse Rate Pulse Rate [ 99 H Right Radial] Respiratory 18 Rate Blood Pressure Blood Pressure 166/88 [Left Arm] O2 Sat by Pulse 99 Oximetry (%) GENERAL: Awake, alert, and fully oriented, in moderate distress. HEAD: Normal with no signs of trauma. EYES: Pupils equal, round and reactive to light, extraocular movements intact, sclera anicteric, conjunctiva clear. EARS, NOSE, THROAT: Ears normal, nares patent, oropharynx clear without exudates. Dry mucous membranes. NECK: Normal range of motion, supple without lymphadenopathy, JVD, or masses. LUNGS: Decreased breath sounds equal, clear to auscultation bilaterally. No wheezes, and no crackles. No accessory muscle use. HEART: Regular rate and rhythm, normal S1 and S2 without murmur ABDOMEN: Soft, diffuse tenderness to palpation, not distended, normoactive bowel sounds, positive guarding, no rebound, no masses. MUSCULOSKELETAL: No bony deformities or tenderness. No CVA tenderness. UPPER EXTREMITIES: warm, well-perfused. No cyanosis. No clubbing. No peripheral edema. LOWER EXTREMITIES: 2+ dorsal pedal pulses, warm, well-perfused. No calf tenderness. No peripheral edema. 5/5 strength bilaterally NEUROLOGICAL: Cranial nerves II-XII grossly intact. Normal speech. PSYCHIATRIC: Cooperative. Good eye contact. Appropriate mood and affect. SKIN: Warm, dry Laboratory Results - last 24 hr 05/16/19 05/16/19 05/16/19 10:45 11:08 11:08 WBC 17.0 H RBC 3.57 L Hgb 10.7 L Hct 32.5 L MCV 90.9 MCH 30.0 MCHC 33.0 RDW 14.2 Plt Count 304 D MPV 9.3 Absolute Neuts (auto) 14.7 H Neutrophils % 86.2 H D Lymphocytes % 6.3 L D Monocytes % 7.2 Eosinophils % 0.1 D Basophils % 0.2 Nucleated RBC % 0 PT with INR 13.40 H INR 1.13 H PTT (Actin FS) 29.4 Sodium Potassium Chloride Carbon Dioxide Anion Gap BUN Creatinine Est GFR (CKD-EPI)AfAm Est GFR (CKD-EPI)NonAf POC Glucometer 319 Random Glucose Lactic Acid Calcium Total Bilirubin AST ALT Alkaline Phosphatase Creatine Kinase Creatine Kinase Index CK-MB (CK-2) Troponin I Total Protein Albumin Triglycerides Cholesterol Total LDL Cholesterol HDL Cholesterol Blood Type Antibody Screen 05/16/19 05/16/19 05/16/19 11:08 11:08 11:08 WBC RBC Hgb Hct MCV MCH MCHC RDW Plt Count MPV Absolute Neuts (auto) Neutrophils % Lymphocytes % Monocytes % Eosinophils % Basophils % Nucleated RBC % PT with INR INR PTT (Actin FS) Sodium 144 Potassium 3.5 Chloride 102 Carbon Dioxide 36 H Anion Gap 6 L BUN 17.7 Creatinine 2.0 H Est GFR (CKD-EPI)AfAm 41.99 Est GFR (CKD-EPI)NonAf 36.23 POC Glucometer Random Glucose 348 H Lactic Acid 2.0 Calcium 8.2 L Total Bilirubin 0.3 AST 27 ALT 24 Alkaline Phosphatase 91 Creatine Kinase 855 H Creatine Kinase Index 0.3 CK-MB (CK-2) 3.1 Troponin I 0.04 Total Protein 4.9 L Albumin 1.9 L Triglycerides 148 Cholesterol 224 H Total LDL Cholesterol 130 H HDL Cholesterol 66 H Blood Type O POSITIVE Antibody Screen Negative ASSESSMENT/PLAN: Pt. is 58 y.o. M w/ PMHx. of DM(diagnosed 25+ years ago), HTN, and BPH (s/p prostate surgery) present for nausea and vomiting that started on Monday. #Nausea and Vomiting likely 2/2 Diabetic Gastroparesis Will hold PO medications start Reglan and Tigan NPO Glucose control with ISS and Basal Insulin Consult to Endocrinology (Dr. Wynn) for possible alternative management, Insulin pump? Initiate ultra-long acting insulin? Will continue with IV Flagyl and IV Levaquin as Pt. did not complete antibiotic course from prior work up. Consult to GI (Dr. Manuel appreciated) for guidance on antibiotic duration, and if we should continue in light of unresolving symptoms while on antibiotics. Resolution of symptoms shortly after discharge related to better Glucose control while inpatient? c/w Sucralfate c/w Protonix BID given history of Sayda Avila tears on the EGD before last at [facility]. #HTN IV Labetalol PAVEL and PRN Hold PO medications Telemetry monitoring #CKD- stable Pt. at baseline Creatinine. Consult to Nephrology (Dr. García) appreciated for aggressive BP control f/u UA to r/o infection and to assess for proteinuria #FEN c/w Plasmalyte @ 100 monitor electrolytes and replete as needed NPO #DVT Ppx. Hep SQ Visit type - Emergency Visit Emergency Visit: Yes ED Registration Date: 05/16/19 Care time: The patient presented to the Emergency Department on the above date and was hospitalized for further evaluation of their emergent condition. - New Patient This patient is new to me today: Yes Date on this admission: 05/16/19 - Critical Care Critical Care patient: No ATTENDING PHYSICIAN STATEMENT I saw and evaluated the patient. I reviewed the resident's note and discussed the case with the resident. I agree with the resident's findings and plan as documented. SUBJECTIVE: OBJECTIVE: ASSESSMENT AND PLAN:
[2019-05-16] MEDS ORDERED: LABETALOL HCL 5 MG/1 ML (200MG/40ML VIAL) IVPB ONE (18:26)
[2019-05-16] MEDS: LABETALOL HCL 5 MG/1 ML (100MG/20 ML VIAL) IVPUSH SCH ×2 (18:42→22:41)
--- NOTE | 2019-05-16 19:09 | CONSULT ---
Consult Consult Specialty:: Nephrology Reason for Consultation:: ckd - History of Present Illness Chief Complaint: nausea and vomiting History of Present Illness: Pt is a 58 year old male with pmhx of dm, htn, gastroparesis, and ckd who presents with nausea and vomiting. He was recently discharged after a similar presentation. He feels that his symptoms improved for about 3 days after discharge then started again. He is vomiting and unable to keep anything down including his meds. - History Source History Provided By: Patient, Medical Record - Past Medical History Cardio/Vascular: Yes: CHF (diastolic ), HTN Gastrointestinal: Yes: GI Bleed Renal/: Yes: Renal Inusuff Endocrine: Yes: Diabetes Mellitus (DM II) - Alcohol/Substance Use Hx Alcohol Use: No History of Substance Use: reports: None - Smoking History Smoking history: Never smoked Have you smoked in the past 12 months: No - Social History ADL: Independent History of Recent Travel: No Home Medications - Allergies Allergies/Adverse Reactions: Allergies Allergy/AdvReac Type Severity Reaction Status Date / Time No Known Allergies Allergy Verified 05/01/19 20:56 - Home Medications Home Medications: Ambulatory Orders Insulin Glargine,Hum.rec.anlog [Lantus Solostar PEN -] 30 units SQ HS 06/26/15 Atorvastatin Calcium 40 mg PO DAILY 05/02/19 Gabapentin 1 cap PO HS 05/02/19 Insulin (Novolog) [Novolog -] 05/02/19 Carvedilol [Coreg -] 12.5 mg PO BID #60 tablet 05/10/19 Lipase/Protease/Amylase [Nena Hodge 36,000 Units Capsule] 1 cap PO TIDCM #90 capsule. 05/10/19 Nifedipine ER [Procardia XL -] 90 mg PO DAILY #30 tab.er.24 05/10/19 Pantoprazole Sodium [Protonix] 40 mg PO DAILY #30 tablet. 05/10/19 Simethicone [Mylicon -] 80 mg PO QID PRN #120 tab.chew 05/10/19 Sucralfate Oral Suspension [Carafate Oral Suspension -] 1 gm PO QID #1 bottle levoFLOXacin [Levaquin -] 500 mg PO DAILY@0600 #7 tablet 05/10/19 metroNIDAZOLE [Flagyl -] 250 mg PO TID #42 tablet 05/10/19 Family Medical History Family History: Denies Review of Systems - Review of Systems Constitutional: reports: Malaise Eyes: reports: No Symptoms HENT: reports: No Symptoms Neck: reports: No Symptoms Respiratory: reports: No Symptoms Gastrointestinal: reports: Abdominal Pain, Vomiting Genitourinary: reports: No Symptoms Musculoskeletal: reports: No Symptoms Neurological: reports: No Symptoms Endocrine: reports: No Symptoms Hematology/Lymphatic: reports: No Symptoms Psychiatric: reports: No Symptoms Physical Exam Vital Signs: Vital Signs Temperature 98.9 F 05/16/19 10:57 Pulse Rate 99 H 05/16/19 12:46 Respiratory Rate 18 05/16/19 12:46 Blood Pressure 166/88 05/16/19 12:46 O2 Sat by Pulse Oximetry (%) 99 05/16/19 11:20 Constitutional: Yes: Calm Eyes: Yes: Conjunctiva Clear HENT: Yes: Atraumatic Neck: Yes: Supple Cardiovascular: Yes: S1, S2 Respiratory: Yes: CTA Bilaterally Gastrointestinal: Yes: Soft Renal/: Yes: WNL Musculoskeletal: Yes: WNL Edema: No Neurological: Yes: Oriented Psychiatric: Yes: Oriented Labs: CBC, BMP 05/16/19 16:06 05/16/19 11:08 Laboratory Tests 05/16/19 05/16/19 05/16/19 11:08 11:08 16:06 WBC 17.0 H 17.3 H Hgb 10.7 L Plt Count 306 Sodium 144 Potassium 3.5 Creatinine 2.0 H Imaging - Results Chest X-ray: Report Reviewed Cat Scan: Report Reviewed Assessment/Plan Current Medications Generic Name Dose Route Start Last Admin Trade Name Freq PRN Reason Stop Dose Admin Acetaminophen 1,000 mg 05/16/19 17:08 Ofirmev Injection - IVPB Q6H PRN PAIN 6-10 Heparin Sodium (Porcine) 5,000 unit 05/16/19 22:00 Heparin - SQ TID PAVEL Sodium Chloride 1,000 mls @ 42 mls/hr 05/16/19 11:00 05/16/19 11:20 Normal Saline - IV 42 mls/hr ASDIR PAVEL Administration Parenteral Electrolytes 1,000 mls @ 100 mls/hr 05/16/19 16:15 05/16/19 18:16 Plasma-Lyte 148 - IV 100 mls/hr ASDIR PAVEL Administration Levofloxacin 500 mg in 100 mls @ 100 mls/hr 05/16/19 17:15 05/16/19 18:39 Levaquin 500 Mg Premixed Ivpb - IVPB 100 mls/hr DAILY PAVEL Administration Protocol Metronidazole 250 mg in 50 mls @ 50 mls/hr 05/16/19 18:15 Flagyl 250mg Premixed Ivpb - IVPB Q8H-IV PAVEL Insulin Aspart 1 vial 05/16/19 22:00 Novolog Vial Sliding Scale - SQ ACHS PAVEL Protocol Insulin Detemir 8 units 05/16/19 22:00 Levemir Vial SQ HS PAVEL Labetalol HCl 10 mg 05/16/19 17:15 05/16/19 18:42 Normodyne Injection - IVPUSH 10 mg Q6H-IV PAVEL Administration Labetalol HCl 10 mg 05/16/19 17:04 Normodyne Injection - IVPUSH Q30M PRN HYPERTENSION Metoclopramide HCl 10 mg 05/16/19 17:01 Reglan Injection - IVPUSH Q8H PRN NAUSEA AND/OR VOMITING Pantoprazole Sodium 40 mg 05/16/19 22:00 Protonix Iv IVPUSH BID [facility] Sucralfate 1 gm 05/16/19 22:00 Carafate - PO BID [facility] Trimethobenzamide HCl 200 mg 05/16/19 17:07 Tigan Injection - IM Q8H PRN NAUSEA Impression 1. vomiting 2. HTN 3. DM 4. anemia 5. bph 6. CKD 7. gastroparesis Plan - monitor renal function, vice president safety is not far from baseline - IV meds for bp as he is unablet to keep anything down - GI eval - repeat labs in am - will re-introduce po meds once he can tolerate them
--- NOTE | 2019-05-16 19:09 | PN ---
Teaching Attending Note Name of Resident: Meng Moon ATTENDING PHYSICIAN STATEMENT I saw and evaluated the patient. I reviewed the resident's note and discussed the case with the resident. I agree with the resident's findings and plan as documented. 58 y.o. M w/ PMHx. of DM, HTN, and BPH (s/p prostate surgery) present for nausea and vomiting that started on Monday. Pt. with mother at bedside states that he has been unable to keep anything down over the last 2 days. Patient recently admitted for refractory vomiting and HTN urgency requiring ICU monitoring, where he was diagnosed with iwona-lara tears on last EGD at [facility]. PE VSS GA tired appearing, coughing up mucus in tray, AAox3, speaking in full sentences HEENT NC/AT, no JVD, EOMI, neck supple, MMM Chest CTAB, no crackles or wheezing CVS s1, S2+, RRR Abd grossly soft, mild tenderness, ND, BS+ Ext No LE edema, dry extremities Vital Signs - 24 hr 05/16/19 05/16/19 05/16/19 10:48 10:56 10:57 Temperature 98.9 F 98.9 F Pulse Rate 103 H Pulse Rate [ 104 H Right Radial] Respiratory 20 18 Rate Blood Pressure 193/100 H Blood Pressure 193/100 H [Left Arm] O2 Sat by Pulse 97 98 99 Oximetry (%) 05/16/19 05/16/19 11:20 12:46 Temperature Pulse Rate Pulse Rate [ 99 H Right Radial] Respiratory 18 Rate Blood Pressure Blood Pressure 166/88 [Left Arm] O2 Sat by Pulse 99 Oximetry (%) Laboratory Results - last 24 hr 05/16/19 05/16/19 05/16/19 10:45 11:08 11:08 WBC 17.0 H RBC 3.57 L Hgb 10.7 L Hct 32.5 L MCV 90.9 MCH 30.0 MCHC 33.0 RDW 14.2 Plt Count 304 D MPV 9.3 Absolute Neuts (auto) 14.7 H Neutrophils % 86.2 H D Lymphocytes % 6.3 L D Monocytes % 7.2 Eosinophils % 0.1 D Basophils % 0.2 Nucleated RBC % 0 PT with INR 13.40 H INR 1.13 H PTT (Actin FS) 29.4 Sodium Potassium Chloride Carbon Dioxide Anion Gap BUN Creatinine Est GFR (CKD-EPI)AfAm Est GFR (CKD-EPI)NonAf POC Glucometer 319 Random Glucose Lactic Acid Calcium Total Bilirubin AST ALT Alkaline Phosphatase Creatine Kinase Creatine Kinase Index CK-MB (CK-2) Troponin I Total Protein Albumin Triglycerides Cholesterol Total LDL Cholesterol HDL Cholesterol Blood Type Antibody Screen 05/16/19 05/16/19 05/16/19 11:08 11:08 11:08 WBC RBC Hgb Hct MCV MCH MCHC RDW Plt Count MPV Absolute Neuts (auto) Neutrophils % Lymphocytes % Monocytes % Eosinophils % Basophils % Nucleated RBC % PT with INR INR PTT (Actin FS) Sodium 144 Potassium 3.5 Chloride 102 Carbon Dioxide 36 H Anion Gap 6 L BUN 17.7 Creatinine 2.0 H Est GFR (CKD-EPI)AfAm 41.99 Est GFR (CKD-EPI)NonAf 36.23 POC Glucometer Random Glucose 348 H Lactic Acid 2.0 Calcium 8.2 L Total Bilirubin 0.3 AST 27 ALT 24 Alkaline Phosphatase 91 Creatine Kinase 855 H Creatine Kinase Index 0.3 CK-MB (CK-2) 3.1 Troponin I 0.04 Total Protein 4.9 L Albumin 1.9 L Triglycerides 148 Cholesterol 224 H Total LDL Cholesterol 130 H HDL Cholesterol 66 H Blood Type O POSITIVE Antibody Screen Negative 05/16/19 16:06 WBC 17.3 H RBC 3.54 L Hgb 10.7 L Hct 32.0 L MCV 90.4 MCH 30.3 MCHC 33.5 RDW 14.1 Plt Count 306 MPV 9.6 Absolute Neuts (auto) Neutrophils % Lymphocytes % Monocytes % Eosinophils % Basophils % Nucleated RBC % PT with INR INR PTT (Actin FS) Sodium Potassium Chloride Carbon Dioxide Anion Gap BUN Creatinine Est GFR (CKD-EPI)AfAm Est GFR (CKD-EPI)NonAf POC Glucometer Random Glucose Lactic Acid Calcium Total Bilirubin AST ALT Alkaline Phosphatase Creatine Kinase Creatine Kinase Index CK-MB (CK-2) Troponin I Total Protein Albumin Triglycerides Cholesterol Total LDL Cholesterol HDL Cholesterol Blood Type Antibody Screen Current Medications Generic Name Dose Route Start Last Admin Trade Name Freq PRN Reason Stop Dose Admin Acetaminophen 1,000 mg 05/16/19 17:08 Ofirmev Injection - IVPB Q6H PRN PAIN 6-10 Heparin Sodium (Porcine) 5,000 unit 05/16/19 22:00 Heparin - SQ TID PAVEL Sodium Chloride 1,000 mls @ 42 mls/hr 05/16/19 11:00 05/16/19 11:20 Normal Saline - IV 42 mls/hr ASDIR PAVEL Administration Parenteral Electrolytes 1,000 mls @ 100 mls/hr 05/16/19 16:15 05/16/19 18:16 Plasma-Lyte 148 - IV 100 mls/hr ASDIR PAVEL Administration Levofloxacin 500 mg in 100 mls @ 100 mls/hr 05/16/19 17:15 05/16/19 18:39 Levaquin 500 Mg Premixed Ivpb - IVPB 100 mls/hr DAILY PAVEL Administration Protocol Metronidazole 250 mg in 50 mls @ 50 mls/hr 05/16/19 18:15 Flagyl 250mg Premixed Ivpb - IVPB Q8H-IV PAVEL Insulin Aspart 1 vial 05/16/19 22:00 Novolog Vial Sliding Scale - SQ ACHS PAVEL Protocol Insulin Detemir 8 units 05/16/19 22:00 Levemir Vial SQ HS PAVEL Labetalol HCl 10 mg 05/16/19 17:15 05/16/19 18:42 Normodyne Injection - IVPUSH 10 mg Q6H-IV PAVEL Administration Labetalol HCl 10 mg 05/16/19 17:04 Normodyne Injection - IVPUSH Q30M PRN HYPERTENSION Metoclopramide HCl 10 mg 05/16/19 17:01 Reglan Injection - IVPUSH Q8H PRN NAUSEA AND/OR VOMITING Pantoprazole Sodium 40 mg 05/16/19 22:00 Protonix Iv IVPUSH BID PAVEL Sucralfate 1 gm 05/16/19 22:00 Carafate - PO BID PAVEL Trimethobenzamide HCl 200 mg 05/16/19 17:07 Tigan Injection - IM Q8H PRN NAUSEA A/P: 58 M h/o uncontrolled T2DM, cyclical vomiting syndrome, ?gastroparesis, HTN, HLD , BPH admitted for refractory nausea and vomiting, no witnessed hematemesis or black stool. Will admit for vomiting and further monitoring. Cyclical vomiting possibly 2/2 gastroparesis, diet non-adherence, uncontrolled DM 2, ?THC use was admitted recently with same presentation, was discharged on Cipro/Flagyl, will finish abx course Reglan around the clock, IVF with Plasmalyte, NPO GI consult ID consult Uncontrolled Dm 2 give basal insulin now supplement with ISS NPO for now Endocrine consult (assess patient for insulin pump) HTN IV labetolol for now, if BP still uncontrolled start Nicardapine drip and admit to ICU for further monitoring Keep BP <180/110 VAISHNAVI on CKD IV fluids avoid nephrotoxins Renal consult: Dr. García DVT ppx: Heparin SC NPO Admit to tele
[2019-05-16] MEDS: LABETALOL HCL 5 MG/1 ML (100MG/20 ML VIAL) IVPUSH PRN (20:06)
[2019-05-16] MEDS: METOCLOPRAMIDE HCL INJECTION 10 MG/2 ML VIAL IVPUSH PRN (20:13)
[2019-05-16 20:40] LABS: EPI CELLS 3.9 /HPF (0-5/HPF); HYALINE CASTS 16 /lpf (0-8); URINE APPEARANCE CLEAR; URINE BACTERIA 5.5 /hpf (NEGATIVE); URINE BILIRUBIN NEGATIVE (NEGATIVE); URINE COLOR YELLOW; URINE GLUCOSE (UA) 3+ (NEGATIVE); URINE KETONE TRACE (NEGATIVE); URINE LEUK ESTERASE NEGATIVE (NEGATIVE); URINE NITRITE NEGATIVE (NEGATIVE); URINE PROTEIN 4+ (NEGATIVE); URINE UROBILINOGEN 0.2 mg/dL (0.2-1.0); URINE WBC 2 /hpf (0-5)
[2019-05-16] MEDS ORDERED: LABETALOL HCL 5 MG/1 ML (100MG/20 ML VIAL) IVPUSH ONE (20:48)
[2019-05-16 22:19] LABS: YEAST NEGATIVE (NEGATIVE)
[2019-05-16] MEDS: INSULIN (LEVEMIR) 100 UNITS/ML UNITS SQ SCH (22:40)
[2019-05-16] MEDS ORDERED: SUCRALFATE 1 GM TABLET (FP) ONE (23:03)
[2019-05-16] MEDS ORDERED: INSULIN REGULAR HUMAN 100 UNITS/ML *VIAL ONE (23:04)
[2019-05-16] MEDS ORDERED: HEPARIN NA (PORCINE) 5,000 UNITS/ML 1ML VIAL ONE (23:04)
[2019-05-16] MEDS: SUCRALFATE 1 GM TABLET (FP) PO SCH (23:17)
[2019-05-16] MEDS: INSULIN SLIDING SCALE (NOVOLOG) 1 VIAL SQ SCH (23:17)
[2019-05-16] MEDS: HEPARIN NA (PORCINE) 5,000 UNITS/ML 1ML VIAL SQ SCH (23:17)
[2019-05-16] MEDS: PANTOPRAZOLE SODIUM 40 MG VIAL IVPUSH SCH (23:18)
[2019-05-17] MEDS: LABETALOL HCL 5 MG/1 ML (100MG/20 ML VIAL) IVPUSH PRN (02:25)
[2019-05-17] MEDS: LABETALOL HCL 5 MG/1 ML (100MG/20 ML VIAL) IVPUSH SCH ×4 (03:41→21:34)
[2019-05-17] MEDS ORDERED: METOCLOPRAMIDE HCL INJECTION 10 MG/2 ML VIAL ONE (05:54)
[2019-05-17] MEDS ORDERED: HEPARIN NA (PORCINE) 5,000 UNITS/ML 1ML VIAL ONE (05:55)
[2019-05-17] MEDS: HEPARIN NA (PORCINE) 5,000 UNITS/ML 1ML VIAL SQ SCH ×3 (06:00→21:35)
[2019-05-17] MEDS: METOCLOPRAMIDE HCL INJECTION 10 MG/2 ML VIAL IVPUSH PRN ×3 (06:00→22:57)
[2019-05-17 07:21] LABS: INR 1.24 (0.83-1.09); PROTHROMBIN TIME (PATIENT) 14.7 SEC (9.7-13.0)
[2019-05-17 07:37] LABS: ALBUMIN 1.7 g/dl (3.4-5.0); BILIRUBIN,TOTAL 0.2 mg/dL (0.2-1); BLOOD UREA NITROGEN 19.5 mg/dL (7-18); CALCIUM 7.8 mg/dL (8.5-10.1); CREATININE 1.9 mg/dL (0.55-1.3); PHOSPHOROUS 3.3 mg/dL (2.5-4.9); POTASSIUM 3.2 mmol/L (3.5-5.1); TOT PROT 4.5 g/dl (6.4-8.2)
--- NOTE | 2019-05-17 08:04 | CON.GI ---
Consult Consult Specialty:: GI Referred by:: Dr Meng Moon - History of Present Illness Chief Complaint: Nausea/vomiting History of Present Illness: Patient is a 58 y/o male with past medical history of DM, HTN, and BPH (s/p prostate surgery). Patient states he developed nausea and vomiting with mid abdominal pain yesterday. Abdominal pain is described as burning, non- radiating and there are no alleviating/exacerbating factors reported. He says vomiting is non-bloody and green in color. States having poor appetite and unable to keep anything down. Denies diarrhea, constipation, rectal bleeding, blood in stool, or melena. Labs are showing leukocytosis with WBC 17.3. Patient was recently admitted this month for same chief complaint. - History Source History Provided By: Patient Limitations to Obtaining History: No Limitations - Past Medical History Cardio/Vascular: Yes: CHF (diastolic ), HTN Gastrointestinal: Yes: GI Bleed Renal/: Yes: Renal Inusuff Endocrine: Yes: Diabetes Mellitus (DM II) - Alcohol/Substance Use Hx Alcohol Use: No History of Substance Use: reports: None - Smoking History Smoking history: Never smoked Have you smoked in the past 12 months: No - Social History ADL: Independent History of Recent Travel: No Home Medications - Allergies Allergies/Adverse Reactions: Allergies Allergy/AdvReac Type Severity Reaction Status Date / Time No Known Allergies Allergy Verified 05/01/19 20:56 - Home Medications Home Medications: Ambulatory Orders Insulin Glargine,Hum.rec.anlog [Lantus Solostar PEN -] 30 units SQ HS 06/26/15 Atorvastatin Calcium 40 mg PO DAILY 05/02/19 Gabapentin 1 cap PO HS 05/02/19 Insulin (Novolog) [Novolog -] 05/02/19 Carvedilol [Coreg -] 12.5 mg PO BID #60 tablet 05/10/19 Lipase/Protease/Amylase [Nena Hodge 36,000 Units Capsule] 1 cap PO TIDCM #90 capsule. 05/10/19 Nifedipine ER [Procardia XL -] 90 mg PO DAILY #30 tab.er.24 05/10/19 Pantoprazole Sodium [Protonix] 40 mg PO DAILY #30 tablet. 05/10/19 Simethicone [Mylicon -] 80 mg PO QID PRN #120 tab.chew 01/10/20 Sucralfate Oral Suspension [Carafate Oral Suspension -] 1 gm PO QID #1 bottle levoFLOXacin [Levaquin -] 500 mg PO DAILY@0600 #7 tablet 05/10/19 metroNIDAZOLE [Flagyl -] 250 mg PO TID #42 tablet 05/10/19 Review of Systems - Review of Systems Constitutional: reports: Loss of Appetite Eyes: reports: No Symptoms HENT: reports: No Symptoms Neck: reports: No Symptoms Cardiovascular: reports: No Symptoms Respiratory: reports: No Symptoms Gastrointestinal: reports: Abdominal Pain, Nausea, Vomiting Genitourinary: reports: No Symptoms Breasts: reports: No Symptoms Reported Musculoskeletal: reports: No Symptoms Integumentary: reports: No Symptoms Neurological: reports: No Symptoms Endocrine: reports: No Symptoms Hematology/Lymphatic: reports: No Symptoms Psychiatric: reports: No Symptoms Physical Exam-GI Vital Signs: Vital Signs Temperature 98.6 F 05/17/19 06:41 Pulse Rate 94 H 05/17/19 06:41 Respiratory Rate 22 H 05/17/19 06:41 Blood Pressure 147/67 05/17/19 06:41 O2 Sat by Pulse Oximetry (%) 97 05/17/19 06:41 Constitutional: Yes: No Distress, Calm Eyes: Yes: Conjunctiva Clear HENT: Yes: Atraumatic Cardiovascular: Yes: Regular Rate and Rhythm Respiratory: Yes: Regular, CTA Bilaterally Gastrointestinal Inspection: Yes: WNL. No: Ascites, Distention, Hernia, Scars, Other ...Auscultate: Yes: Normoactive Bowel Sounds. No: Hyperactive Bowel Sounds, Hypoactive Bowel Sounds, No Bowel Sounds, Other ...Palpate: Yes: Soft, Tenderness (diffuse but prominent in lower quadrants). No: Firm/Rigid, Guarding, Hepatomegaly, Mass, Pulsatile Mass, Splenomegaly, Tenderness, Epigastium, Tenderness, Rebound, Other ...Percussion: Yes: Tympanitic. No: Dullness, Fluid Wave, Other Neurological: Yes: Alert, Oriented Psychiatric: Yes: Alert, Oriented Labs: CBC, BMP 05/16/19 16:06 05/17/19 06:08 INR, PTT INR 1.24 (0.83-1.09) H 05/17/19 06:08 Problem List - Problems (1) Intractable vomiting Assessment/Plan: >IV reglan and zosyn >NPO, advance diet as tolerated >IV hydration Code(s): R11.10 - VOMITING, UNSPECIFIED (2) Abdominal pain Assessment/Plan: >IV Protonix BID >IV Hydration >Metronidazole, Levaquin >Abd/Pelvic CT scan R/O acute diverticulitis vs mesenteric ischemia Code(s): R10.9 - UNSPECIFIED ABDOMINAL PAIN
[2019-05-17] MEDS ORDERED: PT OWN MED DRAWER 7, Y5N ONE (09:10)
[2019-05-17] MEDS: TRIMETHOBENZAMIDE HCL 200MG/2ML INJ IM PRN (09:21)
[2019-05-17] MEDS: PANTOPRAZOLE SODIUM 40 MG VIAL IVPUSH SCH ×2 (09:21→21:35)
[2019-05-17] MEDS ORDERED: SODIUM CHLORIDE 1,000 ML IV SCH (09:28)
[2019-05-17] MEDS: SUCRALFATE 1 GM TABLET (FP) PO SCH ×2 (09:57→21:53)
[2019-05-17] MEDS ORDERED: LABETALOL HCL 5 MG/1 ML (200MG/40ML VIAL) IVPB ONE (09:59)
[2019-05-17 10:41] LABS: EPI CELLS 4.4 /HPF (0-5/HPF); HYALINE CASTS 17 /lpf (0-8); PH,URINE 6.5 (5.0-8.0); URINE APPEARANCE CLEAR; URINE BACTERIA 6.2 /hpf (NEGATIVE); URINE BILIRUBIN NEGATIVE (NEGATIVE); URINE COLOR YELLOW; URINE GLUCOSE (UA) 3+ (NEGATIVE); URINE KETONE NEGATIVE (NEGATIVE); URINE LEUK ESTERASE NEGATIVE (NEGATIVE); URINE NITRITE NEGATIVE (NEGATIVE); URINE PROTEIN 4+ (NEGATIVE); URINE RBC 10 /hpf (0-4); URINE UROBILINOGEN 0.2 mg/dL (0.2-1.0); URINE WBC 2 /hpf (0-5)
--- NOTE | 2019-05-17 12:50 | CONSULT ---
Consult Consult Specialty:: Endocrinology Referred by:: Meng Moon Reason for Consultation:: hyperglycemia - History of Present Illness Chief Complaint: Nausea, vomiting History of Present Illness: This is a 58 y/o male with h/o DM diagnosed about 8 years ago, on Insulin for about 7, HTN, anemia, BPH (s/p prostate procedure), recent ICU admission for HTN urgency and vomiting of coffee ground material (pst notes: [facility] was done revealing iwona lara tears) presents to the ED with bloody vomiting , elevated BP in the 190s systolic and headaches. Pt states the MENCHACA is new and has isolated RLL weakness. Pt states since Monday, 3 days after DC from hospital , he has been vomiting with every meal, unable to take all medications including antibiotics and BP meds. Denies F/C, significant abdominal pain, new back pain, CP, SOB, recent travel or sick contacts. Pt referred for management of hyperglycemia. Pt takes Basaglar 10 units daily with Novolog 2 to 4 units with meals. FS at home 200. Rare low Fs up to 50s. Symptomatic for hypoglycemia when FS 100s. Gives h/o ?DKA in the past. - History Source History Provided By: Patient, Family Member, Medical Record - Past Medical History Cardio/Vascular: Yes: CHF (diastolic ), HTN Gastrointestinal: Yes: GI Bleed Renal/: Yes: Renal Inusuff Endocrine: Yes: Diabetes Mellitus (DM II) - Alcohol/Substance Use Hx Alcohol Use: No History of Substance Use: reports: None - Smoking History Smoking history: Never smoked Have you smoked in the past 12 months: No - Social History ADL: Independent History of Recent Travel: No Home Medications - Allergies Allergies/Adverse Reactions: Allergies Allergy/AdvReac Type Severity Reaction Status Date / Time No Known Allergies Allergy Verified 05/01/19 20:56 - Home Medications Home Medications: Ambulatory Orders Insulin Glargine,Hum.rec.anlog [Lantus Solostar PEN -] 30 units SQ HS 06/26/15 Atorvastatin Calcium 40 mg PO DAILY 05/02/19 Gabapentin 1 cap PO HS 05/02/19 Insulin (Novolog) [Novolog -] 05/02/19 Carvedilol [Coreg -] 12.5 mg PO BID #60 tablet 05/10/19 Lipase/Protease/Amylase [Nena Hodge 36,000 Units Capsule] 1 cap PO TIDCM #90 capsule. 05/10/19 Nifedipine ER [Procardia XL -] 90 mg PO DAILY #30 tab.er.24 05/10/19 Pantoprazole Sodium [Protonix] 40 mg PO DAILY #30 tablet. 05/10/19 Simethicone [Mylicon -] 80 mg PO QID PRN #120 tab.chew 05/10/19 Sucralfate Oral Suspension [Carafate Oral Suspension -] 1 gm PO QID #1 bottle levoFLOXacin [Levaquin -] 500 mg PO DAILY@0600 #7 tablet 05/10/19 metroNIDAZOLE [Flagyl -] 250 mg PO TID #42 tablet 05/10/19 Family Medical History Family Hx Diabetes: Mother Review of Systems - Review of Systems Constitutional: reports: Loss of Appetite, Malaise, Weakness Eyes: reports: No Symptoms HENT: reports: No Symptoms Neck: reports: No Symptoms Cardiovascular: reports: No Symptoms Respiratory: reports: No Symptoms Gastrointestinal: reports: Nausea, Vomiting Genitourinary: reports: No Symptoms Musculoskeletal: reports: No Symptoms Integumentary: reports: No Symptoms Endocrine: reports: No Symptoms Physical Exam Vital Signs: Vital Signs Temperature 98.6 F 05/17/19 06:41 Pulse Rate 94 H 05/17/19 06:41 Respiratory Rate 22 H 05/17/19 06:41 Blood Pressure 147/67 05/17/19 06:41 O2 Sat by Pulse Oximetry (%) 97 05/17/19 06:41 Constitutional: Yes: Moderate Distress Eyes: Yes: Conjunctiva Clear, EOM Intact HENT: Yes: Atraumatic, Normocephalic Neck: Yes: Supple, Trachea Midline Cardiovascular: Yes: Regular Rate and Rhythm Respiratory: Yes: Regular, CTA Bilaterally Gastrointestinal: Yes: Normal Bowel Sounds, Soft Musculoskeletal: Yes: WNL Extremities: Yes: WNL Edema: No Neurological: Yes: Alert, Oriented Labs: CBC, BMP 05/16/19 16:06 05/17/19 06:08 Imaging - Results Chest X-ray: Report Reviewed Cat Scan: Report Reviewed Assessment/Plan AP: Vomiting Gastroparesis HTN DM with hyperglycemia VAISHNAVI Got Levemir 8 units today. Continue same Pt is most probably type 2 but says he has h/o ?DKA So will get C peptide level and in the meantime continue Levemir. Approval for C peptide obtained from Dr Vides. Change fluid to D51/2NS if blood sugar drops to <120 Pt currently NPO BGM ACHS and at 3 AM Novolog SS coverage as necessary Will f/u
[2019-05-17] MEDS: INSULIN SLIDING SCALE (NOVOLOG) 1 VIAL SQ SCH (13:17)
[2019-05-17] MEDS ORDERED: POTASSIUM CHLORIDE TABS 20 MEQ TABLET.ER (FP) PO ONE (14:46)
--- NOTE | 2019-05-17 16:20 | PN ---
Progress Note, Physician History of Present Illness: Pt seen and examined at bedside. He is awake and alert. He still complains of nausea and vomiting. - Current Medication List Current Medications: Active Medications Acetaminophen (Ofirmev Injection -) 1,000 mg IVPB Q6H PRN PRN Reason: PAIN 6-10 Heparin Sodium (Porcine) (Heparin -) 5,000 unit SQ TID [facility] Last Admin: 05/17/19 14:15 Dose: 5,000 unit Levofloxacin (Levaquin 500 Mg Premixed Ivpb -) 500 mg in 100 mls @ 100 mls/hr IVPB DAILY [facility]; Protocol Last Admin: 05/17/19 10:01 Dose: 100 mls/hr Metronidazole (Flagyl 250mg Premixed Ivpb -) 250 mg in 50 mls @ 50 mls/hr IVPB Q8H-IV [facility] Last Admin: 05/17/19 09:36 Dose: 50 mls/hr Potassium Chloride 40 meq/ (Sodium Chloride) 1,020 mls @ 83 mls/hr IVPB ASDIR [facility] Insulin Aspart (Novolog Vial Sliding Scale -) 1 vial SQ ACHS [facility]; Protocol Last Admin: 05/17/19 13:17 Dose: Not Given Insulin Detemir (Levemir Vial) 8 units SQ HS [facility] Last Admin: 05/16/19 22:40 Dose: 8 unit Labetalol HCl (Normodyne Injection -) 10 mg IVPUSH Q6H-IV [facility] Last Admin: 05/17/19 14:15 Dose: 10 mg Labetalol HCl (Normodyne Injection -) 10 mg IVPUSH Q30M PRN PRN Reason: HYPERTENSION Last Admin: 05/17/19 02:25 Dose: 10 mg Metoclopramide HCl (Reglan Injection -) 10 mg IVPUSH Q8H PRN PRN Reason: NAUSEA AND/OR VOMITING Last Admin: 05/17/19 14:15 Dose: 10 mg Pantoprazole Sodium (Protonix Iv) 40 mg IVPUSH BID [facility] Last Admin: 05/17/19 09:21 Dose: 40 mg Sucralfate (Carafate -) 1 gm PO BID [facility] Last Admin: 05/17/19 09:57 Dose: 1 gm Trimethobenzamide HCl (Tigan Injection -) 200 mg IM Q8H PRN PRN Reason: NAUSEA Last Admin: 05/17/19 09:21 Dose: 200 mg - Objective Vital Signs: Vital Signs Temperature 98.0 F 05/17/19 09:00 Pulse Rate 100 H 05/17/19 14:08 Respiratory Rate 15 05/17/19 14:08 Blood Pressure 178/90 H 05/17/19 14:08 O2 Sat by Pulse Oximetry (%) 97 05/17/19 06:41 Constitutional: Yes: Calm Eyes: Yes: Conjunctiva Clear HENT: Yes: Atraumatic Neck: Yes: Supple Cardiovascular: Yes: S1, S2 Respiratory: Yes: CTA Bilaterally Gastrointestinal: Yes: Soft Genitourinary: Yes: WNL Musculoskeletal: Yes: WNL Edema: No Neurological: Yes: Oriented Psychiatric: Yes: Oriented Labs: CBC, BMP 05/16/19 16:06 05/17/19 06:08 INR, PTT INR 1.24 (0.83-1.09) H 05/17/19 06:08 Assessment/Plan Current Medications Generic Name Dose Route Start Last Admin Trade Name Freq PRN Reason Stop Dose Admin Acetaminophen 1,000 mg 05/16/19 17:08 Ofirmev Injection - IVPB Q6H PRN PAIN 6-10 Heparin Sodium (Porcine) 5,000 unit 05/16/19 22:00 05/17/19 14:15 Heparin - SQ 5,000 unit TID [facility] Administration Levofloxacin 500 mg in 100 mls @ 100 mls/hr 05/16/19 17:15 05/17/19 10:01 Levaquin 500 Mg Premixed Ivpb - IVPB 100 mls/hr DAILY [facility] Administration Protocol Metronidazole 250 mg in 50 mls @ 50 mls/hr 05/16/19 18:15 05/17/19 09:36 Flagyl 250mg Premixed Ivpb - IVPB 50 mls/hr Q8H-IV [facility]AVEL Administration Potassium Chloride 40 meq/ 1,020 mls @ 83 mls/hr 05/17/19 16:30 Sodium Chloride IVPB ASDIR [facility] Potassium Chloride 10 meq in 100 mls @ 100 mls/hr 05/17/19 16:30 Potassium Chloride 10 Meq Premix Ivpb - IVPB 05/17/19 19:29 Q60M [facility] Insulin Aspart 1 vial 05/16/19 22:00 05/17/19 13:17 Novolog Vial Sliding Scale - SQ Not Given ACHS [facility] Protocol Insulin Detemir 8 units 05/16/19 22:00 05/16/19 22:40 Levemir Vial SQ 8 unit HS [facility] Administration Labetalol HCl 10 mg 05/16/19 17:15 05/17/19 14:15 Normodyne Injection - IVPUSH 10 mg Q6H-IV PAVEL Administration Labetalol HCl 10 mg 05/16/19 17:04 05/17/19 02:25 Normodyne Injection - IVPUSH 10 mg Q30M PRN Administration HYPERTENSION Metoclopramide HCl 10 mg 05/16/19 17:01 05/17/19 14:15 Reglan Injection - IVPUSH 10 mg Q8H PRN Administration NAUSEA AND/OR VOMITING Pantoprazole Sodium 40 mg 05/16/19 22:00 05/17/19 09:21 Protonix Iv IVPUSH 40 mg BID P[facility]EL Administration Sucralfate 1 gm 05/16/19 22:00 05/17/19 09:57 Carafate - PO 1 gm BID P[facility]EL Administration Trimethobenzamide HCl 200 mg 05/16/19 17:07 05/17/19 09:21 Tigan Injection - IM 200 mg Q8H PRN Administration NAUSEA Impression 1. vomiting 2. HTN 3. DM 4. anemia 5. bph 6. CKD 7. 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
[2019-05-17 17:45] LABS: HEMATOCRIT 29.9 % (35.4-49); HEMOGLOBIN 9.8 GM/dL (11.7-16.9); MCH 30.1 pg (25.7-33.7); MCHC 32.9 g/dl (32.0-35.9); MEAN CELL VOLUME 91.4 fl (80-96); MEAN PLT VOLUME 9.2 fl (7.5-11.1); PLATELET COUNT 281 K/MM3 (134-434); RBC 3.27 M/mm3 (4.00-5.60); WHITE BLOOD COUNT 11.6 K/mm3 (4.0-10.0)
[2019-05-17] MEDS: ACETAMINOPHEN 1000 MG/100 ML VIAL (NON FORMULARY) IVPB PRN (18:04)
[2019-05-17] MEDS: KCL 10 MEQ IVPB 10 MEQ/100 ML INFUS.BAG IVPB SCH ×3 (18:04→22:59)
[2019-05-17] MEDS: SODIUM CHLORIDE 0.45% 1,000 ML with POTASSIUM CHLORIDE 40 MEQ IV SCH (18:04)
[2019-05-17 18:31] VITALS: BMI 25.2
--- NOTE | 2019-05-17 22:29 | PDOC ---
Documentation entered by Cristina Riddle SCRIBE, acting as scribe for Zoraida Irby MD. Zoraida Irby MD: This documentation has been prepared by the Janessa rubin Brenda, SCRIBE, under my direction and personally reviewed by me in its entirety. I confirm that the documentation accurately reflects all work, treatment, procedures, and medical decision making performed by me. Attending Attestation - Resident Resident Name: Kerwin Amado - ED Attending Attestation I have performed the following: I have examined & evaluated the patient, The case was reviewed & discussed with the resident, I agree w/resident's findings & plan, Exceptions are as noted - HPI HPI: 05/16/19 10:49 The patient is a 58 year old male, with a significant PMH of DM c/b gastropareisis, recent GIB, recent endoscopy at [facility] (with esophagitis and iwona lara tears) HTN, anemia, who presents to the emergency department for evaluation of 3 days of nausea and intractable dark emesis. Pt reports complete PO intolerance including his medications. Pt also reports intermittent gradual onset global headache for 2 weeks, a/w b/l feet numbness. Pt earlier reported to Dr. Amado RLE weakness but currently denies, states both of his legs feel weak when he vomits. FS at home have been in the 300s. Last BM yesterday was normal, non bloody. The patient denies chest pain, shortness of breath, dizziness, focal weakness/ numbness. Denies fever, chills, diarrhea, rectal bleeding and constipation. Denies frequency and urgency. Allergies: NKA Social history: No reported hx of tobacco use, alcohol use or illicit drug use. GI: Dr. Manuel - Physicial Exam PE: 05/16/19 10:44 GENERAL: Awake, alert, and fully oriented, appears uncomfortable but in no acute distress EYES: PERRLA, EOMI, sclera anicteric, conjunctiva clear ENT: Oropharynx clear without exudates. Dry MM NECK: Normal ROM, supple LUNGS: Breath sounds equal, clear to auscultation bilaterally. No wheezes, and no crackles HEART: Regular rate and rhythm, normal S1 and S2, no murmurs, rubs or gallops ABDOMEN: Soft, non distended, diffuse non focal mild ttp, normoactive bowel sounds. No guarding, no rebound. No masses EXTREMITIES: Normal range of motion, no edema. No clubbing or cyanosis. No cords , erythema, or tenderness BACK: No midline spinal tenderness in cervical/thoracic/lumbar region NEUROLOGICAL: Normal speech, cranial nerves intact, negative pronator drift, 5/ 5 strength in all 4 extremities, normal sensation to light touch in all 4 extremities, normal cerebellar exam, normal gait SKIN: Warm, Dry, normal turgor, no rashes or lesions noted. - Medical Decision Making 05/17/19 22:25 58yo M with MMP including recent GIB, DM c/b gastropareisis presents to the ED with intractable N/V, emesis "dark" possible coffee grounds vs feculent material ? Plan for labs, PPI, fluids, antiemetics (QTC checked, appears a bit high, will trial dose of reglan for presumed gastropareisis) Exam with mild diffuse abd ttp, not focal, will hold off on imaging for now given recent CTAP negative for similar sxs Pt c/o b/l feet numbness, neuro exam intact. WIll obtain CTH but unlikely TIA/ CVA given normal exam Anticipate admission
--- NOTE | 2019-05-17 22:54 | PN ---
Physical Exam: 58 y.o. M h/o uncontrolled DM, HTN, and BPH (s/p prostate surgery) present for nausea and vomiting that started on Monday. Pt. admitted for retractable nausea , vomiting, hyperglycemia and uncontrolled HTN. PE GA tired appearing, coughing up mucus in tray, AAox3, speaking in full sentences HEENT NC/AT, no JVD, EOMI, neck supple, MMM Chest CTAB, no crackles or wheezing CVS s1, S2+, RRR Abd grossly soft, mild tenderness, ND, BS+ Ext No LE edema, dry extremities Vital Signs - 24 hr 05/17/19 05/17/19 05/17/19 02:14 03:30 05:35 Temperature Pulse Rate Pulse Rate [ 92 H 87 88 Right Radial] Respiratory 18 18 Rate Blood Pressure Blood Pressure 176/94 H 153/89 147/67 [Left Arm] O2 Sat by Pulse 95 97 Oximetry (%) 05/17/19 05/17/19 05/17/19 06:41 09:00 14:08 Temperature 98.6 F 98.0 F Pulse Rate 100 H 100 H Pulse Rate [ 94 H Right Radial] Respiratory 22 H 16 15 Rate Blood Pressure 175/71 H 178/90 H Blood Pressure 147/67 [Left Arm] O2 Sat by Pulse 97 Oximetry (%) 05/17/19 18:20 Temperature 99.9 F H Pulse Rate 100 H Pulse Rate [ Right Radial] Respiratory 15 Rate Blood Pressure 183/107 H Blood Pressure [Left Arm] O2 Sat by Pulse 97 Oximetry (%) Laboratory Results - last 24 hr 05/16/19 05/16/19 05/17/19 10:00 22:58 06:08 WBC RBC Hgb Hct MCV MCH MCHC RDW Plt Count MPV PT with INR 14.70 H INR 1.24 H Sodium Potassium Chloride Carbon Dioxide Anion Gap BUN Creatinine Est GFR (CKD-EPI)AfAm Est GFR (CKD-EPI)NonAf POC Glucometer 308 Random Glucose Calcium Phosphorus Magnesium Total Bilirubin AST ALT Alkaline Phosphatase Total Protein Albumin Urine Color Yellow Urine Appearance Clear Urine pH 6.5 Ur Specific Leonard 1.025 Urine Protein 4+ H Urine Glucose (UA) 3+ H Urine Ketones Negative Urine Blood 2+ H Urine Nitrite Negative Urine Bilirubin Negative Urine Urobilinogen 0.2 Ur Leukocyte Esterase Negative Urine WBC (Auto) 2 Urine RBC (Auto) 10 Urine Casts (Auto) 17 U Pathogenic Cast Auto None seen U Epithel Cells (Auto) 4.4 U Sm Round Cell (Auto) None seen Urine Bacteria (Auto) 6.2 05/17/19 05/17/19 05/17/19 06:08 07:36 13:09 WBC RBC Hgb Hct MCV MCH MCHC RDW Plt Count MPV PT with INR INR Sodium 145 Potassium 3.2 L Chloride 105 Carbon Dioxide 37 H Anion Gap 3 L BUN 19.5 H Creatinine 1.9 H Est GFR (CKD-EPI)AfAm 44.68 Est GFR (CKD-EPI)NonAf 38.55 POC Glucometer 135 208 Random Glucose 138 H Calcium 7.8 L Phosphorus 3.3 Magnesium 2.0 Total Bilirubin 0.2 AST 21 ALT 20 Alkaline Phosphatase 76 Total Protein 4.5 L Albumin 1.7 L Urine Color Urine Appearance Urine pH Ur Specific Leonard Urine Protein Urine Glucose (UA) Urine Ketones Urine Blood Urine Nitrite Urine Bilirubin Urine Urobilinogen Ur Leukocyte Esterase Urine WBC (Auto) Urine RBC (Auto) Urine Casts (Auto) U Pathogenic Cast Auto U Epithel Cells (Auto) U Sm Round Cell (Auto) Urine Bacteria (Auto) 05/17/19 17:20 WBC 11.6 H RBC 3.27 L Hgb 9.8 L Hct 29.9 L MCV 91.4 MCH 30.1 MCHC 32.9 RDW 14.0 Plt Count 281 MPV 9.2 PT with INR INR Sodium Potassium Chloride Carbon Dioxide Anion Gap BUN Creatinine Est GFR (CKD-EPI)AfAm Est GFR (CKD-EPI)NonAf POC Glucometer Random Glucose Calcium Phosphorus Magnesium Total Bilirubin AST ALT Alkaline Phosphatase Total Protein Albumin Urine Color Urine Appearance Urine pH Ur Specific Leonard Urine Protein Urine Glucose (UA) Urine Ketones Urine Blood Urine Nitrite Urine Bilirubin Urine Urobilinogen Ur Leukocyte Esterase Urine WBC (Auto) Urine RBC (Auto) Urine Casts (Auto) U Pathogenic Cast Auto U Epithel Cells (Auto) U Sm Round Cell (Auto) Urine Bacteria (Auto) Current Medications Generic Name Dose Route Start Last Admin Trade Name Freq PRN Reason Stop Dose Admin Acetaminophen 1,000 mg 05/16/19 17:08 05/17/19 18:04 Ofirmev Injection - IVPB 1,000 mg Q6H PRN Administration PAIN 6-10 Heparin Sodium (Porcine) 5,000 unit 05/16/19 22:00 05/17/19 21:35 Heparin - SQ 5,000 unit TID [facility] Administration Levofloxacin 500 mg in 100 mls @ 100 mls/hr 05/16/19 17:15 05/17/19 10:01 Levaquin 500 Mg Premixed Ivpb - IVPB 100 mls/hr DAILY [facility] Administration Protocol Metronidazole 250 mg in 50 mls @ 50 mls/hr 05/16/19 18:15 05/17/19 18:42 Flagyl 250mg Premixed Ivpb - IVPB 50 mls/hr Q8H-IV [facility] Administration Potassium Chloride 40 meq/ 1,020 mls @ 83 mls/hr 05/17/19 16:45 05/17/19 18: 04 Sodium Chloride IV 83 mls/hr Q12H [facility] Administration Influenza Virus Vaccine Quadrival 60 mcg 05/18/19 18:31 Flulaval Quad [id number] IM 05/18/19 18:32 .ONCE ONE Insulin Aspart 1 vial 05/18/19 07:00 Novolog Vial Sliding Scale - SQ TIDAC [facility] Protocol Insulin Detemir 8 units 05/16/19 22:00 05/16/19 22:40 Levemir Vial SQ 8 unit HS [facility] Administration Labetalol HCl 10 mg 05/16/19 17:15 05/17/19 21:34 Normodyne Injection - IVPUSH 10 mg Q6H-IV [facility] Administration Labetalol HCl 10 mg 05/16/19 17:04 05/17/19 02:25 Normodyne Injection - IVPUSH 10 mg Q30M PRN Administration HYPERTENSION Metoclopramide HCl 10 mg 05/16/19 17:01 05/17/19 14:15 Reglan Injection - IVPUSH 10 mg Q8H PRN Administration NAUSEA AND/OR VOMITING Pantoprazole Sodium 40 mg 05/16/19 22:00 05/17/19 21:35 Protonix Iv IVPUSH 40 mg BID [facility] Administration Sucralfate 1 gm 05/16/19 22:00 05/17/19 21:53 Carafate - PO Not Given BID [facility] Trimethobenzamide HCl 200 mg 05/16/19 17:07 05/17/19 09:21 Tigan Injection - IM 200 mg Q8H PRN Administration NAUSEA A/P: 58 M h/o uncontrolled T2DM, cyclical vomiting syndrome, ?gastroparesis, HTN, HLD , BPH admitted for refractory nausea and vomiting, no witnessed hematemesis or black stool. Cyclical vomiting possibly 2/2 gastroparesis, diet non-adherence, uncontrolled DM 2, ?cyclical vomiting d/t THC use, doubt mesenteric ischemia was admitted recently with same presentation, was discharged on Cipro/Flagyl, will finish abx course Reglan around the clock, IVF with Plasmalyte, NPO, pain somewhat improved with sucralfate, CT abd/pelvis when stable GI consult- Dr Manuel Uncontrolled Dm 2 give basal insulin now supplement with ISS NPO for now Endocrine consult HTN IV labetolol pushes for now, if BP still uncontrolled start Nicardapine drip and admit to ICU for further monitoring Keep BP <180/110 VAISHNAVI on CKD likely pre-renal IV fluids avoid nephrotoxins Renal consult: Dr. García DVT ppx: Heparin SC NPO Visit type - Emergency Visit Emergency Visit: Yes ED Registration Date: 05/16/19 Care time: The patient presented to the Emergency Department on the above date and was hospitalized for further evaluation of their emergent condition. - New Patient This patient is new to me today: No - Critical Care Critical Care patient: No - Discharge Referral Referred to [facility] No
[2019-05-17] MEDS: INSULIN (LEVEMIR) 100 UNITS/ML UNITS SQ SCH (23:31)
[2019-05-18] MEDS: TRIMETHOBENZAMIDE HCL 200MG/2ML INJ IM PRN ×2 (02:49→17:06)
[2019-05-18] MEDS: LABETALOL HCL 5 MG/1 ML (100MG/20 ML VIAL) IVPUSH SCH ×2 (03:25→10:10)
[2019-05-18] MEDS: LABETALOL HCL 5 MG/1 ML (100MG/20 ML VIAL) IVPUSH PRN (06:06)
[2019-05-18] MEDS: HEPARIN NA (PORCINE) 5,000 UNITS/ML 1ML VIAL SQ SCH ×3 (06:07→21:30)
[2019-05-18] MEDS: ACETAMINOPHEN 1000 MG/100 ML VIAL (NON FORMULARY) IVPB PRN ×2 (06:10→21:26)
[2019-05-18] MEDS: METOCLOPRAMIDE HCL INJECTION 10 MG/2 ML VIAL IVPUSH PRN ×3 (06:13→21:30)
[2019-05-18] MEDS: INSULIN SLIDING SCALE (NOVOLOG) 1 VIAL SQ SCH ×3 (07:09→17:01)
[2019-05-18 07:46] LABS: BASO % 0.9 % (0-2.0); HEMATOCRIT 28.3 % (35.4-49); HEMOGLOBIN 9.5 GM/dL (11.7-16.9); LYMPH % 21.9 % (8-40); MCH 30.1 pg (25.7-33.7); MCHC 33.4 g/dl (32.0-35.9); MEAN CELL VOLUME 90.2 fl (80-96); MEAN PLT VOLUME 9.3 fl (7.5-11.1); MONO % 10.9 % (3.8-10.2); NEUT % 65.3 % (42.8-82.8); PLATELET COUNT 264 K/MM3 (134-434); RBC 3.14 M/mm3 (4.00-5.60); WHITE BLOOD COUNT 9.8 K/mm3 (4.0-10.0)
[2019-05-18 08:18] LABS: ALBUMIN 1.6 g/dl (3.4-5.0); BILIRUBIN,TOTAL 0.2 mg/dL (0.2-1); BLOOD UREA NITROGEN 16.4 mg/dL (7-18); CALCIUM 7.8 mg/dL (8.5-10.1); CREATININE 1.9 mg/dL (0.55-1.3); MAGNESIUM 1.9 mg/dL (1.8-2.4); POTASSIUM 3.5 mmol/L (3.5-5.1); TOT PROT 4.4 g/dl (6.4-8.2)
[2019-05-18] MEDS: SODIUM CHLORIDE 0.45% 1,000 ML with POTASSIUM CHLORIDE 40 MEQ IV SCH ×2 (08:23→17:02)
[2019-05-18] MEDS: PANTOPRAZOLE SODIUM 40 MG VIAL IVPUSH SCH ×2 (10:10→21:31)
[2019-05-18] MEDS: SUCRALFATE 1 GM TABLET (FP) PO SCH ×2 (10:10→21:25)
--- NOTE | 2019-05-18 10:14 | PN ---
Progress Note (short form) - Note Progress Note: Still with N/V No BM today BGM 200s No Hypos Still NPO Vital Signs Period Temp Pulse Resp BP Sys/Aceves Pulse Ox Last 24 Hr 98.2 F-100.2 F 96-100 15-16 167-189/88-117 97-97 PE: AOx3 Neck: supple, No JVD HEENT: PERRL, EOMI Lungs: CTA CVS: S1s2 Abd: Benign Ext: No edema Neuro: No focal deficit CMP Sodium 147 mmol/L (136-145) H 05/18/19 06:55 Potassium 3.5 mmol/L (3.5-5.1) 05/18/19 06:55 Chloride 107 mmol/L (98-107) 05/18/19 06:55 Carbon Dioxide 36 mmol/L (21-32) H 05/18/19 06:55 Anion Gap 3 MMOL/L (8-16) L 05/18/19 06:55 BUN 16.4 mg/dL (7-18) 05/18/19 06:55 Creatinine 1.9 mg/dL (0.55-1.3) H 05/18/19 06:55 Est GFR (CKD-EPI)AfAm 44.68 05/18/19 06:55 Est GFR (CKD-EPI)NonAf 38.55 05/18/19 06:55 POC Glucometer 200 UNITS (80-120) 05/17/19 23:03 Random Glucose 226 mg/dL (74-106) H 05/18/19 06:55 Lactic Acid 2.0 mmol/L (0.4-2.0) 05/16/19 11:08 Calcium 7.8 mg/dL (8.5-10.1) L 05/18/19 06:55 Phosphorus 3.3 mg/dL (2.5-4.9) 05/17/19 06:08 Magnesium 1.9 mg/dL (1.8-2.4) 05/18/19 06:55 Total Bilirubin 0.2 mg/dL (0.2-1) 05/18/19 06:55 AST 31 U/L (15-37) 05/18/19 06:55 ALT 20 U/L (13-61) 05/18/19 06:55 Alkaline Phosphatase 78 U/L (45-117) 05/18/19 06:55 Creatine Kinase 855 U/L (26-308) H 05/16/19 11:08 Creatine Kinase Index 0.3 % (0.0-5.0) 05/16/19 11:08 CK-MB (CK-2) 3.1 ng/mL (0.5-3.6) 05/16/19 11:08 Troponin I 0.04 ng/ml (0.00-0.05) 05/16/19 11:08 Total Protein 4.4 g/dl (6.4-8.2) L 05/18/19 06:55 Albumin 1.6 g/dl (3.4-5.0) L 05/18/19 06:55 Triglycerides 148 mg/dL (0-150) 05/16/19 11:08 Cholesterol 224 mg/dL (50-200) H 05/16/19 11:08 Total LDL Cholesterol 130 mg/dL (5-100) H 05/16/19 11:08 HDL Cholesterol 66 mg/dL (40-60) H 05/16/19 11:08 CMP Sodium 147 mmol/L (136-145) H 05/18/19 06:55 Potassium 3.5 mmol/L (3.5-5.1) 05/18/19 06:55 Chloride 107 mmol/L (98-107) 05/18/19 06:55 Carbon Dioxide 36 mmol/L (21-32) H 05/18/19 06:55 Anion Gap 3 MMOL/L (8-16) L 05/18/19 06:55 BUN 16.4 mg/dL (7-18) 05/18/19 06:55 Creatinine 1.9 mg/dL (0.55-1.3) H 05/18/19 06:55 Est GFR (CKD-EPI)AfAm 44.68 05/18/19 06:55 Est GFR (CKD-EPI)NonAf 38.55 05/18/19 06:55 POC Glucometer 200 UNITS (80-120) 05/17/19 23:03 Random Glucose 226 mg/dL (74-106) H 05/18/19 06:55 Lactic Acid 2.0 mmol/L (0.4-2.0) 05/16/19 11:08 Calcium 7.8 mg/dL (8.5-10.1) L 05/18/19 06:55 Phosphorus 3.3 mg/dL (2.5-4.9) 05/17/19 06:08 Magnesium 1.9 mg/dL (1.8-2.4) 05/18/19 06:55 Total Bilirubin 0.2 mg/dL (0.2-1) 05/18/19 06:55 AST 31 U/L (15-37) 05/18/19 06:55 ALT 20 U/L (13-61) 05/18/19 06:55 Alkaline Phosphatase 78 U/L (45-117) 05/18/19 06:55 Creatine Kinase 855 U/L (26-308) H 05/16/19 11:08 Creatine Kinase Index 0.3 % (0.0-5.0) 05/16/19 11:08 CK-MB (CK-2) 3.1 ng/mL (0.5-3.6) 05/16/19 11:08 Troponin I 0.04 ng/ml (0.00-0.05) 05/16/19 11:08 Total Protein 4.4 g/dl (6.4-8.2) L 05/18/19 06:55 Albumin 1.6 g/dl (3.4-5.0) L 05/18/19 06:55 Triglycerides 148 mg/dL (0-150) 05/16/19 11:08 Cholesterol 224 mg/dL (50-200) H 05/16/19 11:08 Total LDL Cholesterol 130 mg/dL (5-100) H 05/16/19 11:08 HDL Cholesterol 66 mg/dL (40-60) H 05/16/19 11:08 AP: Vomiting Gastroparesis HTN DM with hyperglycemia VAISHNAVI Continue Levemir 8 units daily Pt is most probably type 2 but says he has h/o ?DKA So will get C peptide level and in the meantime continue Levemir. Approval for C peptide obtained from Dr Vides. Change fluid to D51/2NS if blood sugar drops to <120 Pt currently NPO BGM ACHS and at 3 AM Novolog SS coverage as necessary Will f/u
[2019-05-18] MEDS ORDERED: hydrALAZINE HCL 20 MG/ML VIAL IVPUSH ONE (10:30)
[2019-05-18] MEDS: SODIUM CHLORIDE 0.9% 1000 ML INFUS.BAG IV SCH (10:40)
--- NOTE | 2019-05-18 13:41 | PN ---
Physical Exam: 58 y.o. M h/o uncontrolled DM, HTN, and BPH (s/p prostate surgery) present for nausea and vomiting that started on Monday. Pt. admitted for retractable nausea , vomiting, hyperglycemia and uncontrolled HTN. Now tolerating liquid/jello PO, FS improved, BP improved, WBC count trending down. Will introduce PO BP medications. PE GA AAox3, sleeping in bed, empty jello/apple juice containers at bedside, speaking in full sentences HEENT NC/AT, no JVD, EOMI, neck supple, MMM Chest CTAB, no crackles or wheezing CVS s1, S2+, RRR Abd grossly soft, mild tenderness, ND, BS+ Ext No LE edema, dry extremities Last Vital Signs Temp Pulse Resp BP Pulse Ox 98.2 F 89 20 162/79 97 05/18/19 10:00 05/18/19 12:28 05/18/19 12:28 05/18/19 12:28 05/17/19 21:00 Laboratory Results - last 24 hr 05/17/19 05/17/19 05/17/19 13:09 17:20 23:03 WBC 11.6 H RBC 3.27 L Hgb 9.8 L Hct 29.9 L MCV 91.4 MCH 30.1 MCHC 32.9 RDW 14.0 Plt Count 281 MPV 9.2 Absolute Neuts (auto) Neutrophils % Lymphocytes % Monocytes % Eosinophils % Basophils % Nucleated RBC % Sodium Potassium Chloride Carbon Dioxide Anion Gap BUN Creatinine Est GFR (CKD-EPI)AfAm Est GFR (CKD-EPI)NonAf POC Glucometer 208 200 Random Glucose Calcium Magnesium Total Bilirubin AST ALT Alkaline Phosphatase Total Protein Albumin 05/18/19 05/18/19 05/18/19 06:55 06:55 11:58 WBC 9.8 RBC 3.14 L Hgb 9.5 L Hct 28.3 L MCV 90.2 MCH 30.1 MCHC 33.4 RDW 14.0 Plt Count 264 MPV 9.3 Absolute Neuts (auto) 6.4 Neutrophils % 65.3 D Lymphocytes % 21.9 D Monocytes % 10.9 H Eosinophils % 1.0 D Basophils % 0.9 D Nucleated RBC % 0 Sodium 147 H Potassium 3.5 Chloride 107 Carbon Dioxide 36 H Anion Gap 3 L BUN 16.4 Creatinine 1.9 H Est GFR (CKD-EPI)AfAm 44.68 Est GFR (CKD-EPI)NonAf 38.55 POC Glucometer 245 Random Glucose 226 H Calcium 7.8 L Magnesium 1.9 Total Bilirubin 0.2 AST 31 ALT 20 Alkaline Phosphatase 78 Total Protein 4.4 L Albumin 1.6 L Current Medications Generic Name Dose Route Start Last Admin Trade Name Freq PRN Reason Stop Dose Admin Acetaminophen 1,000 mg 05/16/19 17:08 05/18/19 06:10 Ofirmev Injection - IVPB 1,000 mg Q6H PRN Administration PAIN 6-10 Carvedilol 12.5 mg 05/18/19 12:45 Coreg - PO BID [facility] Heparin Sodium (Porcine) 5,000 unit 05/16/19 22:00 05/18/19 06:07 Heparin - SQ 5,000 unit TID [facility] Administration Levofloxacin 500 mg in 100 mls @ 100 mls/hr 05/16/19 17:15 05/18/19 10:10 Levaquin 500 Mg Premixed Ivpb - IVPB 100 mls/hr DAILY [facility] Administration Protocol Metronidazole 250 mg in 50 mls @ 50 mls/hr 05/16/19 18:15 05/18/19 12:30 Flagyl 250mg Premixed Ivpb - IVPB 50 mls/hr Q8H-IV [facility] Administration Potassium Chloride 40 meq/ 1,020 mls @ 83 mls/hr 05/17/19 16:45 05/18/19 08: 23 Sodium Chloride IV Not Given Q12H [facility] Influenza Virus Vaccine Quadrival 60 mcg 05/18/19 18:31 Flulaval Quad [id number] IM 05/18/19 18:32 .ONCE ONE Insulin Aspart 1 vial 05/18/19 07:00 05/18/19 12:00 Novolog Vial Sliding Scale - SQ 2 units TIDAC [facility] Administration Protocol Insulin Detemir 8 units 05/16/19 22:00 05/17/19 23:31 Levemir Vial SQ 8 unit HS [facility] Administration Metoclopramide HCl 10 mg 05/16/19 17:01 05/18/19 06:13 Reglan Injection - IVPUSH 10 mg Q8H PRN Administration NAUSEA AND/OR VOMITING Nifedipine 90 mg 05/18/19 12:45 Procardia Xl - PO DAILY [facility] Pantoprazole Sodium 40 mg 05/16/19 22:00 05/18/19 10:10 Protonix Iv IVPUSH 40 mg BID [facility] Administration Sodium Chloride 125 ml 05/18/19 10:30 05/18/19 10:40 Normal Saline - IV 125 ml NOW [facility] Administration Sucralfate 1 gm 05/16/19 22:00 05/18/19 10:10 Carafate - PO 1 gm BID [facility] Administration Trimethobenzamide HCl 200 mg 05/16/19 17:07 05/18/19 02:49 Tigan Injection - IM 200 mg Q8H PRN Administration NAUSEA A/P: 58 M h/o uncontrolled T2DM, cyclical vomiting syndrome, ?gastroparesis, HTN, HLD , BPH admitted for refractory nausea and vomiting, no witnessed hematemesis or black stool. Cyclical vomiting possibly 2/2 gastroparesis, diet non-adherence, uncontrolled DM 2, ?cyclical vomiting d/t THC use, doubt mesenteric ischemia, now tolerating PO still no BM refusing bowel regimen will cont. to monitor was admitted recently with same presentation, was discharged on Cipro/Flagyl, will finish abx course Reglan around the clock, IVF with Plasmalyte, NPO, pain somewhat improved with sucralfate, CT abd/pelvis when stable GI consult- Dr Manuel Uncontrolled Dm 2 cont. 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 García DVT ppx: Heparin SC clear liquid diet Tele monitoring Visit type - Emergency Visit Emergency Visit: Yes ED Registration Date: 05/16/19 Care time: The patient presented to the Emergency Department on the above date and was hospitalized for further evaluation of their emergent condition. - New Patient This patient is new to me today: No - Critical Care Critical Care patient: No - Discharge Referral Referred to [facility] Med P.C.: No
[2019-05-18] MEDS: NIFEdipine E.R. 90 MG TABLET PO SCH (14:17)
[2019-05-18] MEDS: CARVEDILOL 12.5 MG TABLET (FP) PO SCH ×2 (14:17→21:25)
--- NOTE | 2019-05-18 15:17 | PN.GI ---
GI Progress Note Subjective: stilll with epigastric pain nausea and vomiting - Objective Vital Signs: Vital Signs Temperature 98.2 F 05/18/19 10:00 Pulse Rate 89 05/18/19 12:28 Respiratory Rate 05/18/19 12:28 Blood Pressure 162/79 05/18/19 12:28 O2 Sat by Pulse Oximetry (%) 97 05/18/19 09:00 Constitutional: Well Nourished Eyes: Yes: Conjunctiva Clear HENT: Yes: Atraumatic Neck: Yes: Supple Cardiovascular: Yes: Regular Rate and Rhythm Respiratory: Yes: CTA Bilaterally ...Palpate: Yes: Soft, Tenderness (--diffuse). No: Firm/Rigid, Guarding, Hepatomegaly, Mass, Pulsatile Mass, Splenomegaly Labs: CBC, BMP 05/18/19 06:55 05/18/19 06:55 INR, PTT INR 1.24 (0.83-1.09) H 05/17/19 06:08 Problem List - Problems (1) Intractable vomiting Assessment/Plan: R> continue IV Reglana nd Zofran Code(s): R11.10 - VOMITING, UNSPECIFIED (2) Abdominal pain Assessment/Plan: r/o mesenteric ischemia R> continue IV hydrartion await CTA Code(s): R10.9 - UNSPECIFIED ABDOMINAL PAIN
[2019-05-18] MEDS ORDERED: PT OWN MED DRAWER 7, Y5N ONE (17:14)
--- NOTE | 2019-05-18 17:36 | PN ---
Progress Note (short form) - Note Progress Note: 1. vomiting 2. HTN 3. DM 4. anemia 5. bph 6. CKD 7. gastroparesis Current Medications Acetaminophen (Ofirmev Injection -) 1,000 mg IVPB Q6H PRN PRN Reason: PAIN 6-10 Last Admin: 05/18/19 06:10 Dose: 1,000 mg Carvedilol (Coreg -) 12.5 mg PO BID [facility] Last Admin: 05/18/19 14:17 Dose: 12.5 mg Heparin Sodium (Porcine) (Heparin -) 5,000 unit SQ TID [facility] Last Admin: 05/18/19 14:17 Dose: 5,000 unit Levofloxacin (Levaquin 500 Mg Premixed Ivpb -) 500 mg in 100 mls @ 100 mls/hr IVPB DAILY [facility]; Protocol Last Admin: 05/18/19 10:10 Dose: 100 mls/hr Metronidazole (Flagyl 250mg Premixed Ivpb -) 250 mg in 50 mls @ 50 mls/hr IVPB Q8H-IV [facility] Last Admin: 05/18/19 17:17 Dose: 50 mls/hr Potassium Chloride 40 meq/ (Sodium Chloride) 1,020 mls @ 83 mls/hr IV Q12H [facility] Last Admin: 05/18/19 17:02 Dose: 83 mls/hr Influenza Virus Vaccine Quadrival (Flulaval Quad [id number]) 60 mcg IM .ONCE ONE Stop: 05/18/19 18:32 Insulin Aspart (Novolog Vial Sliding Scale -) 1 vial SQ TIDAC [facility]; Protocol Last Admin: 05/18/19 17:01 Dose: 6 units Insulin Detemir (Levemir Vial) 8 units SQ HS [facility] Last Admin: 05/17/19 23:31 Dose: 8 unit Metoclopramide HCl (Reglan Injection -) 10 mg IVPUSH Q8H PRN PRN Reason: NAUSEA AND/OR VOMITING Last Admin: 05/18/19 15:25 Dose: 10 mg Nifedipine (Procardia Xl -) 90 mg PO DAILY [facility] Last Admin: 05/18/19 14:17 Dose: 90 mg Pantoprazole Sodium (Protonix Iv) 40 mg IVPUSH BID [facility] Last Admin: 05/18/19 10:10 Dose: 40 mg Sodium Chloride (Normal Saline -) 125 ml IV NOW [facility] Last Admin: 05/18/19 10:40 Dose: 125 ml Sucralfate (Carafate -) 1 gm PO BID [facility] Last Admin: 05/18/19 10:10 Dose: 1 gm Trimethobenzamide HCl (Tigan Injection -) 200 mg IM Q8H PRN PRN Reason: NAUSEA Last Admin: 05/18/19 17:06 Dose: 200 mg Last Vital Signs Temp Pulse Resp BP Pulse Ox 98 F 88 20 123/69 97 05/18/19 14:00 05/18/19 14:00 05/18/19 14:00 05/18/19 14:00 05/18/19 09:00 CBC, BMP 05/18/19 06:55 05/18/19 06:55 IMP hypernatremia on IVF may improve tomorrow Plan- follow bmp
[2019-05-18] MEDS ORDERED: FLU VACCINE QUAD 60 MCG/0.5 ML (MDV 19-20) IM ONE (18:31)
[2019-05-18] MEDS: INSULIN (LEVEMIR) 100 UNITS/ML UNITS SQ SCH (22:36)
[2019-05-19] MEDS: TRIMETHOBENZAMIDE HCL 200MG/2ML INJ IM PRN ×2 (01:26→08:40)
[2019-05-19] MEDS: METOCLOPRAMIDE HCL INJECTION 10 MG/2 ML VIAL IVPUSH PRN (05:06)
[2019-05-19] MEDS: SODIUM CHLORIDE 0.45% 1,000 ML with POTASSIUM CHLORIDE 40 MEQ IV SCH ×2 (06:57→16:54)
[2019-05-19] MEDS: INSULIN SLIDING SCALE (NOVOLOG) 1 VIAL SQ SCH ×3 (07:01→16:54)
[2019-05-19] MEDS: HEPARIN NA (PORCINE) 5,000 UNITS/ML 1ML VIAL SQ SCH ×3 (07:01→21:07)
[2019-05-19 07:30] LABS: BASO % 0.7 % (0-2.0); EOS % 1.7 % (0-4.5); HEMATOCRIT 27.2 % (35.4-49); HEMOGLOBIN 9.2 GM/dL (11.7-16.9); LYMPH % 22.1 % (8-40); MCH 30.6 pg (25.7-33.7); MCHC 33.9 g/dl (32.0-35.9); MEAN PLT VOLUME 9.9 fl (7.5-11.1); MONO % 8.5 % (3.8-10.2); PLATELET COUNT 279 K/MM3 (134-434); RBC 3.02 M/mm3 (4.00-5.60); RDW 13.7 % (11.9-15.9); WHITE BLOOD COUNT 9.4 K/mm3 (4.0-10.0)
[2019-05-19 07:41] LABS: ALBUMIN 1.7 g/dl (3.4-5.0); BILIRUBIN,TOTAL 0.2 mg/dL (0.2-1); BLOOD UREA NITROGEN 13.9 mg/dL (7-18); CALCIUM 7.6 mg/dL (8.5-10.1); CREATININE 1.9 mg/dL (0.55-1.3); POTASSIUM 3.3 mmol/L (3.5-5.1); TOT PROT 4.4 g/dl (6.4-8.2)
[2019-05-19] MEDS ORDERED: PT OWN MED DRAWER 7, Y5N ONE ×2 (08:50→17:47)
[2019-05-19] MEDS: NIFEdipine E.R. 90 MG TABLET PO SCH (09:13)
[2019-05-19] MEDS: SUCRALFATE 1 GM TABLET (FP) PO SCH ×2 (09:13→21:08)
[2019-05-19] MEDS: CARVEDILOL 12.5 MG TABLET (FP) PO SCH ×2 (09:13→21:08)
[2019-05-19] MEDS: PANTOPRAZOLE SODIUM 40 MG VIAL IVPUSH SCH ×2 (09:13→21:08)
[2019-05-19] MEDS: SODIUM CHLORIDE 0.9% 1000 ML INFUS.BAG IV SCH (10:33)
[2019-05-19] MEDS ORDERED: POTASSIUM CHLORIDE TABS 20 MEQ TABLET.ER (FP) PO ONE (10:45)
--- NOTE | 2019-05-19 11:03 | EKG ---
Test Reason : Blood Pressure : / mmHG Vent. Rate : 089 BPM Atrial Rate : 089 BPM P-R Int : 148 ms QRS Dur : 090 ms QT Int : 370 ms P-R-T Axes : 065 -50 -22 degrees QTc Int : 450 ms NORMAL SINUS RHYTHM LEFT AXIS DEVIATION SEPTAL INFARCT (CITED ON OR BEFORE 01-MAY-2019) T WAVE ABNORMALITY, CONSIDER LATERAL ISCHEMIA ABNORMAL ECG WHEN COMPARED WITH ECG OF 16-MAY-2019 11:08, T WAVE INVERSION MORE EVIDENT IN INFERIOR LEADS T WAVE INVERSION NOW EVIDENT IN LATERAL LEADS Confirmed by FAYE CHILD MD ([id number]) on 05/19/2019 11:02:50 AM Referred By: Martin WAY Confirmed By:FAYE CHILD MD
--- NOTE | 2019-05-19 11:11 | PN.GI ---
GI Progress Note Subjective: still with nausea and epigastric pain, ct reviewed, no evidence of mesenteric ischemia - Objective Vital Signs: Vital Signs Temperature 99.2 F 05/19/19 09:00 Pulse Rate 88 05/19/19 09:00 Respiratory Rate 18 05/19/19 09:00 Blood Pressure 149/80 05/19/19 09:00 O2 Sat by Pulse Oximetry (%) 98 05/19/19 08:16 Constitutional: Well Nourished Eyes: Yes: Conjunctiva Clear HENT: Yes: Atraumatic Neck: Yes: Supple Cardiovascular: Yes: Regular Rate and Rhythm Respiratory: Yes: CTA Bilaterally ...Palpate: Yes: Soft, Tenderness, Epigastium. No: Firm/Rigid, Guarding, Hepatomegaly, Mass, Pulsatile Mass, Splenomegaly Labs: CBC, BMP 05/19/19 06:30 05/19/19 06:30 INR, PTT INR 1.24 (0.83-1.09) H 05/17/19 06:08 Problem List - Problems (1) Intractable vomiting Assessment/Plan: r/o secondary to gastroparesis R> IV Reglan and Zofran advance diet as tolerated Code(s): R11.10 - VOMITING, UNSPECIFIED (2) Abdominal pain Code(s): R10.9 - UNSPECIFIED ABDOMINAL PAIN
[2019-05-19] MEDS: METOCLOPRAMIDE HCL INJECTION 10 MG/2 ML VIAL IVPB SCH ×2 (12:07→20:59)
[2019-05-19] MEDS: ONDANSETRON 4 MG/2 ML VIAL IVPB SCH ×4 (12:09→23:36)
--- NOTE | 2019-05-19 13:20 | PN ---
Progress Note (short form) - Note Progress Note: Feels better Tolerting regular diet BGM 200s No Hypos Vital Signs Period Temp Pulse Resp BP Sys/Aceves Pulse Ox Last 24 Hr 98 F-99.4 F 83-89 18-20 123-157/69-86 98-98 PE: AOx3 Neck: supple, No JVD HEENT: PERRL, EOMI Lungs: CTA CVS: S1s2 Abd: Benign Ext: No edema Neuro: No focal deficit CMP Sodium 141 mmol/L (136-145) 05/19/19 06:30 Potassium 3.3 mmol/L (3.5-5.1) L 05/19/19 06:30 Chloride 103 mmol/L (98-107) 05/19/19 06:30 Carbon Dioxide 34 mmol/L (21-32) H 05/19/19 06:30 Anion Gap 4 MMOL/L (8-16) L 05/19/19 06:30 BUN 13.9 mg/dL (7-18) 05/19/19 06:30 Creatinine 1.9 mg/dL (0.55-1.3) H 05/19/19 06:30 Est GFR (CKD-EPI)AfAm 44.68 05/19/19 06:30 Est GFR (CKD-EPI)NonAf 38.55 05/19/19 06:30 POC Glucometer 231 UNITS (80-120) 05/19/19 11:29 Random Glucose 182 mg/dL (74-106) H 05/19/19 06:30 Lactic Acid 2.0 mmol/L (0.4-2.0) 05/16/19 11:08 Calcium 7.6 mg/dL (8.5-10.1) L 05/19/19 06:30 Phosphorus 3.3 mg/dL (2.5-4.9) 05/17/19 06:08 Magnesium 1.9 mg/dL (1.8-2.4) 05/18/19 06:55 Total Bilirubin 0.2 mg/dL (0.2-1) 05/19/19 06:30 AST 44 U/L (15-37) H 05/19/19 06:30 ALT 22 U/L (13-61) 05/19/19 06:30 Alkaline Phosphatase 74 U/L (45-117) 05/19/19 06:30 Creatine Kinase 855 U/L (26-308) H 05/16/19 11:08 Creatine Kinase Index 0.3 % (0.0-5.0) 05/16/19 11:08 CK-MB (CK-2) 3.1 ng/mL (0.5-3.6) 05/16/19 11:08 Troponin I 0.05 ng/ml (0.00-0.05) 05/18/19 16:05 Total Protein 4.4 g/dl (6.4-8.2) L 05/19/19 06:30 Albumin 1.7 g/dl (3.4-5.0) L 05/19/19 06:30 Triglycerides 148 mg/dL (0-150) 05/16/19 11:08 Cholesterol 224 mg/dL (50-200) H 05/16/19 11:08 Total LDL Cholesterol 130 mg/dL (5-100) H 05/16/19 11:08 HDL Cholesterol 66 mg/dL (40-60) H 05/16/19 11:08 CMP Sodium 141 mmol/L (136-145) 05/19/19 06:30 Potassium 3.3 mmol/L (3.5-5.1) L 05/19/19 06:30 Chloride 103 mmol/L (98-107) 05/19/19 06:30 Carbon Dioxide 34 mmol/L (21-32) H 05/19/19 06:30 Anion Gap 4 MMOL/L (8-16) L 05/19/19 06:30 BUN 13.9 mg/dL (7-18) 05/19/19 06:30 Creatinine 1.9 mg/dL (0.55-1.3) H 05/19/19 06:30 Est GFR (CKD-EPI)AfAm 44.68 05/19/19 06:30 Est GFR (CKD-EPI)NonAf 38.55 05/19/19 06:30 POC Glucometer 231 UNITS (80-120) 05/19/19 11:29 Random Glucose 182 mg/dL (74-106) H 05/19/19 06:30 Lactic Acid 2.0 mmol/L (0.4-2.0) 05/16/19 11:08 Calcium 7.6 mg/dL (8.5-10.1) L 05/19/19 06:30 Phosphorus 3.3 mg/dL (2.5-4.9) 05/17/19 06:08 Magnesium 1.9 mg/dL (1.8-2.4) 05/18/19 06:55 Total Bilirubin 0.2 mg/dL (0.2-1) 05/19/19 06:30 AST 44 U/L (15-37) H 05/19/19 06:30 ALT 22 U/L (13-61) 05/19/19 06:30 Alkaline Phosphatase 74 U/L (45-117) 05/19/19 06:30 Creatine Kinase 855 U/L (26-308) H 05/16/19 11:08 Creatine Kinase Index 0.3 % (0.0-5.0) 05/16/19 11:08 CK-MB (CK-2) 3.1 ng/mL (0.5-3.6) 05/16/19 11:08 Troponin I 0.05 ng/ml (0.00-0.05) 05/18/19 16:05 Total Protein 4.4 g/dl (6.4-8.2) L 05/19/19 06:30 Albumin 1.7 g/dl (3.4-5.0) L 05/19/19 06:30 Triglycerides 148 mg/dL (0-150) 05/16/19 11:08 Cholesterol 224 mg/dL (50-200) H 05/16/19 11:08 Total LDL Cholesterol 130 mg/dL (5-100) H 05/16/19 11:08 HDL Cholesterol 66 mg/dL (40-60) H 05/16/19 11:08 AP: Vomiting Gastroparesis HTN DM with hyperglycemia VAISHNAVI Started on regular diet. tolerating it INcrease Levemir 12 units daily Pt is most probably type 2 but says he has h/o ?DKA So will get C peptide level and in the meantime continue Levemir. Approval for C peptide obtained from Dr Vides. Change fluid to D51/2NS if blood sugar drops to <120 BGM ACHS and at 3 AM INcrease Novolog SS coverage as necessary Will f/u
--- NOTE | 2019-05-19 14:10 | PN ---
Physical Exam: 58 y.o. M h/o uncontrolled DM, HTN, and BPH (s/p prostate surgery) present for nausea and vomiting that started on Monday. Pt. admitted for retractable nausea , vomiting, hyperglycemia and uncontrolled HTN. Out of bed to chair, ambulating , feeling better, will advance diet to soft diet, if he tolerates will DC with PO Reglan and follow up. Ct abd/pelvis neg. for mesenteric ischemia. PE GA AAox3, sitting in chair, speaking in full sentences, ambulating HEENT NC/AT, no JVD, EOMI, neck supple, MMM Chest CTAB, no crackles or wheezing CVS s1, S2+, RRR Abd grossly soft, mild tenderness, ND, BS+ Ext No LE edema, dry extremities Vital Signs - 24 hr 05/18/19 05/18/19 05/19/19 19:00 20:39 01:20 Temperature 99.3 F 99.4 F Pulse Rate 85 89 Respiratory 20 20 Rate Blood Pressure 126/71 124/73 O2 Sat by Pulse 98 Oximetry (%) 05/19/19 05/19/19 05/19/19 05:00 08:16 09:00 Temperature 98.3 F 99.2 F Pulse Rate 83 88 Respiratory 20 20 18 Rate Blood Pressure 157/86 149/80 O2 Sat by Pulse 98 Oximetry (%) Laboratory Results - last 24 hr 05/18/19 05/18/19 05/18/19 16:05 16:59 22:34 WBC RBC Hgb Hct MCV MCH MCHC RDW Plt Count MPV Absolute Neuts (auto) Neutrophils % Lymphocytes % Monocytes % Eosinophils % Basophils % Nucleated RBC % Sodium Potassium Chloride Carbon Dioxide Anion Gap BUN Creatinine Est GFR (CKD-EPI)AfAm Est GFR (CKD-EPI)NonAf POC Glucometer 310 200 Random Glucose Calcium Total Bilirubin AST ALT Alkaline Phosphatase Troponin I 0.05 Total Protein Albumin 05/19/19 05/19/19 05/19/19 06:30 06:30 07:00 WBC 9.4 RBC 3.02 L Hgb 9.2 L Hct 27.2 L MCV 90.0 MCH 30.6 MCHC 33.9 RDW 13.7 Plt Count 279 MPV 9.9 Absolute Neuts (auto) 6.3 Neutrophils % 67.0 Lymphocytes % 22.1 Monocytes % 8.5 Eosinophils % 1.7 Basophils % 0.7 Nucleated RBC % 0 Sodium 141 Potassium 3.3 L Chloride 103 Carbon Dioxide 34 H Anion Gap 4 L BUN 13.9 Creatinine 1.9 H Est GFR (CKD-EPI)AfAm 44.68 Est GFR (CKD-EPI)NonAf 38.55 POC Glucometer 160 Random Glucose 182 H Calcium 7.6 L Total Bilirubin 0.2 AST 44 H ALT 22 Alkaline Phosphatase 74 Troponin I Total Protein 4.4 L Albumin 1.7 L 05/19/19 11:29 WBC RBC Hgb Hct MCV MCH MCHC RDW Plt Count MPV Absolute Neuts (auto) Neutrophils % Lymphocytes % Monocytes % Eosinophils % Basophils % Nucleated RBC % Sodium Potassium Chloride Carbon Dioxide Anion Gap BUN Creatinine Est GFR (CKD-EPI)AfAm Est GFR (CKD-EPI)NonAf POC Glucometer 231 Random Glucose Calcium Total Bilirubin AST ALT Alkaline Phosphatase Troponin I Total Protein Albumin Current Medications Generic Name Dose Route Start Last Admin Trade Name Freq PRN Reason Stop Dose Admin Acetaminophen 1,000 mg 05/16/19 17:08 05/18/19 21:26 Ofirmev Injection - IVPB 1,000 mg Q6H PRN Administration PAIN 6-10 Carvedilol 12.5 mg 05/18/19 12:45 05/19/19 09:13 Coreg - PO 12.5 mg BID [facility] Administration Heparin Sodium (Porcine) 5,000 unit 05/16/19 22:00 05/19/19 07:01 Heparin - SQ 5,000 unit TID [facility] Administration Levofloxacin 500 mg in 100 mls @ 100 mls/hr 05/16/19 17:15 05/19/19 09:13 Levaquin 500 Mg Premixed Ivpb - IVPB 100 mls/hr DAILY [facility] Administration Protocol Metronidazole 250 mg in 50 mls @ 50 mls/hr 05/16/19 18:15 05/19/19 09:57 Flagyl 250mg Premixed Ivpb - IVPB 50 mls/hr Q8H-IV [facility] Administration Potassium Chloride 40 meq/ 1,020 mls @ 83 mls/hr 05/17/19 16:45 05/19/19 06: 57 Sodium Chloride IV Not Given Q12H [facility] Insulin Aspart 1 vial 05/19/19 13:21 Novolog Vial Sliding Scale - SQ TIDAC [facility] Protocol Insulin Aspart 1 vial 05/19/19 22:00 Novolog Vial Sliding Scale - SQ HS [facility] Protocol Insulin Detemir 12 units 05/19/19 22:00 Levemir Vial SQ HS [facility] Metoclopramide HCl 10 mg 05/19/19 12:00 05/19/19 12:07 Reglan Injection - IVPB 10 mg Q8H [facility] Administration Nifedipine 90 mg 05/18/19 12:45 05/19/19 09:13 Procardia Xl - PO 90 mg DAILY [facility] Administration Ondansetron HCl 4 mg 05/19/19 12:00 05/19/19 12:09 Zofran Injection IVPB 05/20/19 00:01 4 mg Q4H [facility] Administration Ondansetron HCl 4 mg 05/20/19 00:00 Zofran Injection IVPUSH Q4H PRN NAUSEA AND/OR VOMITING Pantoprazole Sodium 40 mg 05/16/19 22:00 05/19/19 09:13 Protonix Iv IVPUSH 40 mg BID [facility] Administration Sodium Chloride 125 ml 05/18/19 10:30 05/19/19 10:33 Normal Saline - IV Not Given NOW [facility] Sucralfate 1 gm 05/16/19 22:00 05/19/19 09:13 Carafate - PO 1 gm BID [facility] Administration Trimethobenzamide HCl 200 mg 05/16/19 17:07 05/19/19 08:40 Tigan Injection - IM 200 mg Q8H PRN Administration NAUSEA A/P: 58 M h/o uncontrolled T2DM, cyclical vomiting syndrome, ?gastroparesis, HTN, HLD , BPH admitted for refractory nausea and vomiting, no witnessed hematemesis or black stool. Refractory nausea and vomiting possibly 2/2 gastroparesis/cyclical vomiting from THC use, diet non-adherence, uncontrolled DM 2, Abd/Pelvic CT neg. for mesenteric ischemia, now tolerating PO will advance diet and monitor, if tolerating PO may be DC in evening or AM was admitted recently with same presentation, was discharged on Cipro/Flagyl, will finish abx course (total 14 days) Reglan around the clock, PO hydration, pain somewhat improved with sucralfate GI consult- Dr Manuel Uncontrolled Dm 2 cont. Levemir for basal coverage, FS improving supplement with ISS Soft diet Endocrine consult HTN cont. 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 García DVT ppx: Heparin SC Soft DM/Na restricted diet DC tele Visit type - Emergency Visit Emergency Visit: Yes ED Registration Date: 05/16/19 Care time: The patient presented to the Emergency Department on the above date and was hospitalized for further evaluation of their emergent condition. - New Patient This patient is new to me today: No - Critical Care Critical Care patient: No - Discharge Referral Referred to [facility] Med P.C.: No
[2019-05-19] MEDS ORDERED: FLU VACCINE QUAD 60 MCG/0.5 ML (MDV 19-20) IM ONE (18:30)
--- NOTE | 2019-05-19 20:15 | PN ---
Progress Note (short form) - Note Progress Note: 1. vomiting 2. HTN 3. DM 4. anemia 5. bph 6. CKD 7. gastroparesis Current Medications Acetaminophen (Ofirmev Injection -) 1,000 mg IVPB Q6H PRN PRN Reason: PAIN 6-10 Last Admin: 05/18/19 21:26 Dose: 1,000 mg Carvedilol (Coreg -) 12.5 mg PO BID [facility] Last Admin: 05/19/19 09:13 Dose: 12.5 mg Heparin Sodium (Porcine) (Heparin -) 5,000 unit SQ TID [facility] Last Admin: 05/19/19 14:42 Dose: 5,000 unit Levofloxacin (Levaquin 500 Mg Premixed Ivpb -) 500 mg in 100 mls @ 100 mls/hr IVPB DAILY [facility]; Protocol Last Admin: 05/19/19 09:13 Dose: 100 mls/hr Metronidazole (Flagyl 250mg Premixed Ivpb -) 250 mg in 50 mls @ 50 mls/hr IVPB Q8H-IV [facility] Last Admin: 05/19/19 17:49 Dose: 50 mls/hr Potassium Chloride 40 meq/ (Sodium Chloride) 1,020 mls @ 83 mls/hr IV Q12H [facility] Last Admin: 05/19/19 16:54 Dose: 83 mls/hr Insulin Aspart (Novolog Vial Sliding Scale -) 1 vial SQ TIDAC [facility]; Protocol Last Admin: 05/19/19 16:54 Dose: 5 units Insulin Aspart (Novolog Vial Sliding Scale -) 1 vial SQ HS [facility]; Protocol Insulin Detemir (Levemir Vial) 12 units SQ HS [facility] Metoclopramide HCl (Reglan Injection -) 10 mg IVPB Q8H [facility] Last Admin: 05/19/19 12:07 Dose: 10 mg Nifedipine (Procardia Xl -) 90 mg PO DAILY [facility] Last Admin: 05/19/19 09:13 Dose: 90 mg Ondansetron HCl (Zofran Injection) 4 mg IVPB Q4H [facility] Stop: 05/20/19 00:01 Last Admin: 05/19/19 19:47 Dose: 4 mg Ondansetron HCl (Zofran Injection) 4 mg IVPUSH Q4H PRN PRN Reason: NAUSEA AND/OR VOMITING Pantoprazole Sodium (Protonix Iv) 40 mg IVPUSH BID [facility] Last Admin: 05/19/19 09:13 Dose: 40 mg Sodium Chloride (Normal Saline -) 125 ml IV NOW [facility] Last Admin: 05/19/19 10:33 Dose: Not Given Sucralfate (Carafate -) 1 gm PO BID [facility] Last Admin: 05/19/19 09:13 Dose: 1 gm Trimethobenzamide HCl (Tigan Injection -) 200 mg IM Q8H PRN PRN Reason: NAUSEA Last Admin: 05/19/19 08:40 Dose: 200 mg Last Vital Signs Temp Pulse Resp BP Pulse Ox 98.6 F 83 18 133/73 98 05/19/19 18:00 05/19/19 18:00 05/19/19 18:00 05/19/19 18:00 05/19/19 08:16 Lungs clear Heart reg Abd soft ext no edema CBC, BMP 05/19/19 06:30 05/19/19 06:30 CBC, BMP 05/18/19 06:55 05/18/19 06:55 IMP hypernatremia resolved Hypokalemia today- has been replaced Plan- follow bmp for lytes
[2019-05-19] MEDS ORDERED: INSULIN SLIDING SCALE (NOVOLOG) 1 VIAL SQ SCH (22:00)
[2019-05-19] MEDS ORDERED: INSULIN (LEVEMIR) 100 UNITS/ML UNITS SQ SCH (22:00)
[2019-05-19] MEDS: BENZOCAINE/MENTH/CETYLPYRD CL 1 EACH LOZENGE MM PRN (23:35)
[2019-05-20] MEDS ORDERED: ONDANSETRON 4 MG/2 ML VIAL IVPUSH PRN
[2019-05-20] MEDS ORDERED: PT OWN MED DRAWER 7, Y5N ONE (02:16)
[2019-05-20] MEDS: BENZOCAINE/MENTH/CETYLPYRD CL 1 EACH LOZENGE MM PRN (02:24)
[2019-05-20] MEDS: METOCLOPRAMIDE HCL INJECTION 10 MG/2 ML VIAL IVPB SCH ×2 (05:12→12:49)
[2019-05-20] MEDS: SODIUM CHLORIDE 0.45% 1,000 ML with POTASSIUM CHLORIDE 40 MEQ IV SCH (05:13)
[2019-05-20] MEDS: HEPARIN NA (PORCINE) 5,000 UNITS/ML 1ML VIAL SQ SCH ×2 (05:13→15:30)
[2019-05-20] MEDS: INSULIN SLIDING SCALE (NOVOLOG) 1 VIAL SQ SCH ×3 (06:05→16:34)
[2019-05-20] MEDS: CARVEDILOL 12.5 MG TABLET (FP) PO SCH (10:31)
[2019-05-20] MEDS: SUCRALFATE 1 GM TABLET (FP) PO SCH (10:31)
[2019-05-20] MEDS: PANTOPRAZOLE SODIUM 40 MG VIAL IVPUSH SCH (10:31)
[2019-05-20] MEDS: NIFEdipine E.R. 90 MG TABLET PO SCH (10:32)
[2019-05-20] MEDS: SODIUM CHLORIDE 0.9% 1000 ML INFUS.BAG IV SCH (10:32)
--- NOTE | 2019-05-20 14:32 | PN ---
Progress Note, Physician History of Present Illness: Pt seen and examined at bedside. He is awake and alert. He feels that his nausea is improved. - Current Medication List Current Medications: Active Medications Acetaminophen (Ofirmev Injection -) 1,000 mg IVPB Q6H PRN PRN Reason: PAIN 6-10 Last Admin: 05/18/19 21:26 Dose: 1,000 mg Benzocaine/Menthol (Cepacol Lozenge -) 1 each MM Q2H PRN PRN Reason: COUGH Last Admin: 05/20/19 02:24 Dose: 1 each Carvedilol (Coreg -) 12.5 mg PO BID PAVEL Last Admin: 05/20/19 10:31 Dose: 12.5 mg Heparin Sodium (Porcine) (Heparin -) 5,000 unit SQ TID PAVEL Last Admin: 05/20/19 05:13 Dose: 5,000 unit Levofloxacin (Levaquin 500 Mg Premixed Ivpb -) 500 mg in 100 mls @ 100 mls/hr IVPB DAILY [facility]; Protocol Last Admin: 05/20/19 10:31 Dose: 100 mls/hr Metronidazole (Flagyl 250mg Premixed Ivpb -) 250 mg in 50 mls @ 50 mls/hr IVPB Q8H-IV PAVEL Last Admin: 05/20/19 10:31 Dose: 50 mls/hr Potassium Chloride 40 meq/ (Sodium Chloride) 1,020 mls @ 83 mls/hr IV Q12H PAVEL Last Admin: 05/20/19 05:13 Dose: Not Given Insulin Aspart (Novolog Vial Sliding Scale -) 1 vial SQ TIDAC [facility]; Protocol Last Admin: 05/20/19 11:23 Dose: Not Given Insulin Aspart (Novolog Vial Sliding Scale -) 1 vial SQ HS [facility]; Protocol Last Admin: 05/19/19 21:09 Dose: Not Given Insulin Detemir (Levemir Vial) 12 units SQ HS [facility] Last Admin: 05/19/19 21:08 Dose: 12 units Metoclopramide HCl (Reglan Injection -) 10 mg IVPB Q8H PAVEL Last Admin: 05/20/19 12:49 Dose: Not Given Nifedipine (Procardia Xl -) 90 mg PO DAILY [facility] Last Admin: 05/20/19 10:32 Dose: 90 mg Ondansetron HCl (Zofran Injection) 4 mg IVPUSH Q4H PRN PRN Reason: NAUSEA AND/OR VOMITING Pantoprazole Sodium (Protonix Iv) 40 mg IVPUSH BID [facility] Last Admin: 05/20/19 10:31 Dose: 40 mg Sodium Chloride (Normal Saline -) 125 ml IV NOW [facility] Last Admin: 05/20/19 10:32 Dose: 125 ml Sucralfate (Carafate -) 1 gm PO BID [facility] Last Admin: 05/20/19 10:31 Dose: 1 gm Tamsulosin HCl (Flomax -) 0.4 mg PO DAILY@0830 [facility] Trimethobenzamide HCl (Tigan Injection -) 200 mg IM Q8H PRN PRN Reason: NAUSEA Last Admin: 05/19/19 08:40 Dose: 200 mg - Objective Vital Signs: Vital Signs Temperature 98.8 F 05/20/19 08:22 Pulse Rate 85 05/20/19 08:22 Respiratory Rate 18 05/20/19 08:24 Blood Pressure 117/76 05/20/19 08:22 O2 Sat by Pulse Oximetry (%) 98 05/20/19 08:24 Constitutional: Yes: Calm Eyes: Yes: Conjunctiva Clear HENT: Yes: Atraumatic Neck: Yes: Supple Cardiovascular: Yes: S1, S2 Respiratory: Yes: CTA Bilaterally Gastrointestinal: Yes: Normal Bowel Sounds, Soft Genitourinary: Yes: WNL Musculoskeletal: Yes: WNL Edema: No Neurological: Yes: Oriented Psychiatric: Yes: Oriented Labs: CBC, BMP 05/19/19 06:30 05/19/19 06:30 INR, PTT INR 1.24 (0.83-1.09) H 05/17/19 06:08 Assessment/Plan Current Medications Generic Name Dose Route Start Last Admin Trade Name Freq PRN Reason Stop Dose Admin Acetaminophen 1,000 mg 05/16/19 17:08 05/18/19 21:26 Ofirmev Injection - IVPB 1,000 mg Q6H PRN Administration PAIN 6-10 Benzocaine/Menthol 1 each 05/19/19 23:00 05/20/19 02:24 Cepacol Lozenge - MM 1 each Q2H PRN Administration COUGH Carvedilol 12.5 mg 05/18/19 12:45 05/20/19 10:31 Coreg - PO 12.5 mg BID [facility] Administration Heparin Sodium (Porcine) 5,000 unit 05/16/19 22:00 05/20/19 05:13 Heparin - SQ 5,000 unit TID [facility]EL Administration Levofloxacin 500 mg in 100 mls @ 100 mls/hr 05/16/19 17:15 05/20/19 10:31 Levaquin 500 Mg Premixed Ivpb - IVPB 100 mls/hr DAILY [facility] Administration Protocol Metronidazole 250 mg in 50 mls @ 50 mls/hr 05/16/19 18:15 05/20/19 10:31 Flagyl 250mg Premixed Ivpb - IVPB 50 mls/hr Q8H-IV [facility]AVEL Administration Potassium Chloride 40 meq/ 1,020 mls @ 83 mls/hr 05/17/19 16:45 05/20/19 05: 13 Sodium Chloride IV Not Given Q12H [facility]AV[facility] Insulin Aspart 1 vial 05/19/19 13:21 05/20/19 11:23 Novolog Vial Sliding Scale - SQ Not Given TIDAC [facility] Protocol Insulin Aspart 1 vial 05/19/19 22:00 05/19/19 21:09 Novolog Vial Sliding Scale - SQ Not Given HS [facility] Protocol Insulin Detemir 12 units 05/19/19 22:00 05/19/19 21:08 Levemir Vial SQ 12 units HS [facility]EL Administration Metoclopramide HCl 10 mg 05/19/19 12:00 05/20/19 12:49 Reglan Injection - IVPB Not Given Q8H [facility] Nifedipine 90 mg 05/18/19 12:45 05/20/19 10:32 Procardia Xl - PO 90 mg DAILY [facility] Administration Ondansetron HCl 4 mg 05/20/19 00:00 Zofran Injection IVPUSH Q4H PRN NAUSEA AND/OR VOMITING Pantoprazole Sodium 40 mg 05/16/19 22:00 05/20/19 10:31 Protonix Iv IVPUSH 40 mg BID PAVEL Administration Sodium Chloride 125 ml 05/18/19 10:30 05/20/19 10:32 Normal Saline - IV 125 ml NOW [facility] Administration Sucralfate 1 gm 05/16/19 22:00 05/20/19 10:31 Carafate - PO 1 gm BID [facility] Administration Tamsulosin HCl 0.4 mg 05/21/19 08:30 Flomax - PO DAILY@0830 [facility] Trimethobenzamide HCl 200 mg 05/16/19 17:07 05/19/19 08:40 Tigan Injection - IM 200 mg Q8H PRN Administration NAUSEA Impression 1. vomiting 2. HTN 3. DM 4. anemia 5. bph 6. CKD 7. gastroparesis Plan - renal function stable - no new labs today - check bmp - will need outpt follow up - recommend he does not smoke marijuana
[2019-05-20 15:06] VITALS: BP 100/64; PULSE 77; TEMP 98.3
--- NOTE | 2019-05-20 20:35 | DS ---
Physical Exam: 58 y.o. M h/o uncontrolled DM, HTN, and BPH (s/p prostate surgery) present for nausea and vomiting that started on Monday prior to presentation. Was recently admitted 6 days prior with same presentation where he was treated for gastritis , hyperglycemia and HTN urgency. Pt. admitted for retractable nausea, vomiting, hyperglycemia and uncontrolled HTN. Patient evaluated by endocrine and GI service who recommended treatment for diabetic gastroparesis. Patient advised to finish his antibiotic course to complete 14 days (antibiotics already prescribed to him from last admission), and follow up with his PCP, GI, Renal, Endocrine doctors in which referrals were given to him on prior admission. PE GA AAox3, sitting in chair, speaking in full sentences, ambulating without assistance HEENT NC/AT, no JVD, EOMI, neck supple, MMM Chest CTAB, no crackles or wheezing CVS s1, S2+, RRR Abd grossly soft, no tenderness, ND, BS+ Ext No LE edema, dry extremities Vital Signs - 24 hr 05/20/19 05/20/19 05/20/19 02:00 06:00 08:22 Temperature 98.8 F 99.2 F 98.8 F Pulse Rate 81 83 85 Respiratory 18 18 18 Rate Blood Pressure 134/71 132/70 117/76 O2 Sat by Pulse Oximetry (%) 05/20/19 05/20/19 08:24 14:00 Temperature 98.3 F Pulse Rate 77 Respiratory 18 18 Rate Blood Pressure 100/64 O2 Sat by Pulse 98 Oximetry (%) Laboratory Results - last 24 hr 05/19/19 05/20/19 05/20/19 21:07 05:22 11:21 POC Glucometer 140 126 110 Home Medications Medication Instructions Recorded Insulin Glargine,Hum.rec.anlog 30 units SQ HS 06/26/15 [Lantus Solostar PEN -] Atorvastatin Calcium 40 mg PO DAILY 05/02/19 Gabapentin 1 cap PO HS 05/02/19 Carvedilol [Coreg -] 12.5 mg PO BID #60 tablet 05/10/19 Lipase/Protease/Amylase [Nena Hodge 1 cap PO TIDCM #90 capsule. 05/10/19 36,000 Units Capsule] Nifedipine ER [Procardia XL -] 90 mg PO DAILY #30 tab.er.24 05/10/19 Pantoprazole Sodium [Protonix] 40 mg PO DAILY #30 tablet. 05/10/19 Simethicone [Mylicon -] 80 mg PO QID PRN #120 tab.chew 05/10/19 levoFLOXacin [Levaquin -] 500 mg PO DAILY@0600 #7 tablet 05/10/19 metroNIDAZOLE [Flagyl -] 250 mg PO TID #42 tablet 05/10/19 Insulin (Novolog) [Novolog -] 3 unit SCJ TID #1 units 05/20/19 Insulin Aspart [Novolog] 3 - 5 unit SQ AC #1 cartridge 05/20/19 Refractory nausea and vomiting possibly 2/2 gastroparesis/cyclical vomiting from THC use, diet non-adherence, uncontrolled DM 2, Abd/Pelvic CT neg. for mesenteric ischemia, now tolerating PO feels better, counseled patient on small frequent meals, glucose control, and proper follow up with appropriate consultants. 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 Raquel DELGADO continue home meds Disposition: Patient to be discharged home with follow up appointments with GI, Endocrine, Renal, PCP and Cardiology clinics. Patient counseled on strict adherence to medications, diet, and activity. Discharge medications: Reglan 10mg Q8H PRn for nausea Novolog 3-5 units SQ before meals (TID) Continue all other home medications as prescribed. Minutes to complete discharge: 40 Discharge Summary Problems reviewed: Yes Reason For Visit: INTRACTABLE VOMITING Condition: Good - Instructions Diet, Activity, Other Instructions: You were admitted to the hospital due to diabetic gastroparesis. Please resume your home medications as prescribed. Please follow up with your primary care doctor and diabetes doctor in 1 week. If you feel chest pain, shortness of breath, syncope, abdominal pain, nausea, vomiting, weakness or dizziness please go to your nearest emergency room. Disposition: HOME - Home Medications Comprehensive Discharge Medication List: Ambulatory Orders Insulin Glargine,Hum.rec.anlog [Lantus Solostar PEN -] 30 units SQ HS 06/26/15 Atorvastatin Calcium 40 mg PO DAILY 05/02/19 Gabapentin 1 cap PO HS 05/02/19 Carvedilol [Coreg -] 12.5 mg PO BID #60 tablet 05/10/19 Lipase/Protease/Amylase [Nena Hodge 36,000 Units Capsule] 1 cap PO TIDCM #90 capsule. 05/10/19 Nifedipine ER [Procardia XL -] 90 mg PO DAILY #30 tab.er.24 05/10/19 Pantoprazole Sodium [Protonix] 40 mg PO DAILY #30 tablet. 05/10/19 Simethicone [Mylicon -] 80 mg PO QID PRN #120 tab.chew 05/10/19 levoFLOXacin [Levaquin -] 500 mg PO DAILY@0600 #7 tablet 05/10/19 metroNIDAZOLE [Flagyl -] 250 mg PO TID #42 tablet 05/10/19 Insulin (Novolog) [Novolog -] 3 unit SCJ TID #1 units 05/20/19 Insulin Aspart [Novolog] 3 - 5 unit SQ AC #1 cartridge 05/20/19 This patient is new to me today: No Emergency Visit: Yes ED Registration Date: 05/16/19 Care time: The patient presented to the Emergency Department on the above date and was hospitalized for further evaluation of their emergent condition. Critical Care patient: No - Discharge Referral Referred to [facility] Med P.C.: No
[2019-05-21] MEDS ORDERED: TAMSULOSIN HCL 0.4 MG CAP PO SCH (08:30)
== END 2019-05-20 16:40 | disposition home or self-care (01) | DRG 48 ==
LOC: JER 10:24 → JERBED 16:03 → J4W 05-17 16:41
DX: E11.43 Type 2 diabetes mellitus with diabetic autonomic (poly)neuropathy (principal); K92.0 Hematemesis; N17.9 Acute kidney failure, unspecified; E11.65 Type 2 diabetes mellitus with hyperglycemia; E11.22 Type 2 diabetes mellitus with diabetic chronic kidney disease; I13.0 Hypertensive heart and chronic kidney disease with heart failure and stage 1 through stage 4 chronic kidney disease, or unspecified chronic kidney disease; I50.32 Chronic diastolic (congestive) heart failure; K31.84 Gastroparesis; E87.0 Hyperosmolality and hypernatremia; E87.6 Hypokalemia; D64.9 Anemia, unspecified; Z79.4 Long term (current) use of insulin; Z89.422 Acquired absence of other left toe(s); N18.9 Chronic kidney disease, unspecified; Z91.11 Patient's noncompliance with dietary regimen
CPT/HCPCS: 36415; 70450-TC; 71045-TC-FY; 74177-TC; 76856-TC; 80053; 80061; 81003; 82550; 82553; 82962; 83605; 83721; 83735; 84100; 84484; 84681; 85025; 85027; 85610; 85730; 86850; 86900; 86901; 93005; 93010; 99285-25; G0008; J0131; J1644; J7030; Q2036; Q9967

== ENCOUNTER 2019-05-27 12:01 | Inpatient (IN) | payer OTHER ==
[2019-05-27 12:49] VITALS: BMI 21.2
--- NOTE | 2019-05-27 12:56 | PDOC ---
History of Present Illness - General Chief Complaint: Nausea/Vomiting Stated Complaint: N/V Time Seen by Provider: 05/27/19 12:42 - History of Present Illness Initial Comments: 05/27/19 12:55 HPI: 58 y/o M with hx of IDDM, HTN, anemia, BPH, iwona lara tears seen on EGD at [facility], and gastroparesis presenting with 3 days of nausea, vomiting, epigastric abd pain. He states he has had multiple presentations for the same symptoms and received significant workup; always thought to be 2/2 to gastroparesis vs cyclical emesis. He was DCd 7 days ago and was feeling well but symptoms restarted. He reports medication compliance, however, has missed a few doses due to feeling unwell with pain and emesis. He reports unable to tolerate any PO including liquids and meds. He also reports no BMs and no flatus x3 days. Also with MENCHACA and LH. Denies palpitations, chest pain, SOB, dysuria. PMHx: as noted above ROS: as noted SHx: Denies tobacco use; no alcohol use; no rec drugs Allergies: NKDA ROS: GENERAL/CONSTITUTIONAL: +chills. No weakness. HEAD, EYES, EARS, NOSE AND THROAT: No change in vision. No ear pain or discharge. No sore throat. CARDIOVASCULAR: No chest pain or shortness of breath RESPIRATORY: No cough, wheezing, or hemoptysis. GASTROINTESTINAL: No nausea, vomiting, diarrhea or constipation. GENITOURINARY: No dysuria, frequency, or change in urination. MUSCULOSKELETAL: No joint or muscle swelling or pain. No neck or back pain. SKIN: No rash NEUROLOGIC: +MENCHACA; no vertigo, loss of consciousness, or change in strength/ sensation. ENDOCRINE: No increased thirst. No abnormal weight change HEMATOLOGIC/LYMPHATIC: No anemia, easy bleeding, or history of blood clots. ALLERGIC/IMMUNOLOGIC: No hives or skin allergy. PE: GENERAL: Awake, alert, and fully oriented, no acute distress HEAD: No signs of trauma, normocephalic, atraumatic EYES: EOMI, sclera anicteric, conjunctiva clear ENT: Auricles normal inspection, hearing grossly normal, nares patent, oropharynx clear without exudates. Moist mucosa NECK: Normal ROM, no lymphadenopathy LUNGS: No increased work of breathing, symmetrical chest rise, clear to auscultation bilaterally, no wheezes, crackles or rhonchi HEART: Regular rate, regular rhythm, normal S1 and S2, no murmur, peripheral pulses 2+ and equal bilaterally. ABDOMEN: Soft, nondistended, mild epigastric ttp, normoactive bowel sounds. No guarding, no rebound. No masses. No CVAT MUSCULOSKELETAL: FROM NEUROLOGICAL: Cranial nerves II through XII grossly intact. Normal speech, normal gait, no focal sensorimotor deficits SKIN: Warm, Dry, normal turgor, no rashes or lesions noted Past History - Past Medical History Allergies/Adverse Reactions: Allergies Allergy/AdvReac Type Severity Reaction Status Date / Time No Known Allergies Allergy Verified 05/27/19 12:44 Home Medications: Ambulatory Orders Insulin Glargine,Hum.rec.anlog [Lantus Solostar PEN -] 30 units SQ HS 06/26/15 Atorvastatin Calcium 40 mg PO DAILY 05/02/19 Gabapentin 1 cap PO HS 05/02/19 Carvedilol [Coreg -] 12.5 mg PO BID #60 tablet 05/10/19 Lipase/Protease/Amylase [Nena Hodge 36,000 Units Capsule] 1 cap PO TIDCM #90 capsule. 05/10/19 Nifedipine ER [Procardia XL -] 90 mg PO DAILY #30 tab.er.24 05/10/19 Pantoprazole Sodium [Protonix] 40 mg PO DAILY #30 tablet. 05/10/19 Simethicone [Mylicon -] 80 mg PO QID PRN #120 tab.chew 05/10/19 Insulin (Novolog) [Novolog -] 3 unit SCJ TID #1 units 05/20/19 Anemia: Yes COPD: No Diabetes: Yes GI Disorders: Yes Disorders: Yes (BPH) HTN: Yes - Surgical History Orthopedic Surgery: Yes (toe amputation) - Immunization History Immunization Up to Date: Yes - Psycho Social/Smoking Cessation Hx Smoking History: Never smoked Have you smoked in the past 12 months: No Hx Alcohol Use: No Drug/Substance Use Hx: No Substance Use Type: None *Physical Exam - Vital Signs Last Vital Signs Temp Pulse Resp BP Pulse Ox 102 H 20 120/83 98 05/27/19 12:45 05/27/19 12:45 05/27/19 12:45 05/27/19 12:45 ED Treatment Course - LABORATORY CBC & Chemistry Diagram: 05/27/19 13:00 05/27/19 13:00 Medical Decision Making - Medical Decision Making 05/27/19 15:25 58 y/o M with hx of IDDM, HTN, anemia, BPH, iwona lara tears seen on EGD at [facility], and gastroparesis presenting with 3 days of nausea, vomiting, epigastric abd pain. Also reporting no BM or flatus x2-3days and not tolerating PO. HR 102, AF. PE with epigastric ttp. -cbc, lipase, amylase, cmp, beta hydroxy, ua -ivf, reglan, morphine -ct abd pel with cont 05/27/19 20:25 Laboratory Tests 05/27/19 05/27/19 05/27/19 13:00 13:00 19:00 WBC 17.9 H Hgb 9.5 L Beta-Hydroxybutyrate 12.2 H Urine Protein 4+ H Urine Glucose (UA) 1+ H Urine Ketones 1+ H Urine Blood 1+ H CT Impression: No CT evidence of bowel obstruction. In comparison to an abdomen/ pelvic CT exam of 05/18/2009 which also partially imaged lower chest interval development of small patchy infiltrates is noted within the right middle and right lower lobes. Apparent at least partial resolution of mild bilateral retroperitoneal soft tissue edema is seen. Note is again made of mild concentric subcutaneous soft tissue stranding which may be on the basis of fluid retention. Lipase and amylase wnl improved nausea after reglan, but was not able to tolerate PO contrast; will give additional ivf and reglan will contact his GI doc aerotriangulation specialist for further recs and likely admit for persistent nausea and emesis and PO intolerance 05/27/19 20:47 Dr Manuel recommending scheduled reglan and prn zofran; will also add protonix; requesting ekg in the morning; also requesting cardio consult for daily ekg and QTC monitoring given anti-nausea meds; requesting A1C tomorrow morning as well -daily ekg -scheduled reglan and prn zofran -daily ekg for qtc monitoring -daily protonix -to send A1C -requestin endo and cardio consult 05/27/19 21:[address] Strickland Discharge - Discharge Information Problems reviewed: Yes Clinical Impression/Diagnosis: Nausea & vomiting Qualifiers: Vomiting type: unspecified Vomiting Intractability: intractable Qualified Code( s): R11.2 - Nausea with vomiting, unspecified Condition: Stable - Admission Yes - Follow up/Referral Referrals: Delmis Mane [Primary Care Provider] - - Patient Discharge Instructions - Post Discharge Activity
[2019-05-27] MEDS ORDERED: morphine CARPU-JECT 4 MG/1 ML DISP.SYRIN IVPUSH ONE (13:07)
[2019-05-27] MEDS ORDERED: SODIUM CHLORIDE 1,000 ML IV STA ×2 (13:07→20:55)
[2019-05-27] MEDS ORDERED: morphine SULFATE 4 MG/ML VIAL ONE (13:16)
[2019-05-27] MEDS ORDERED: METOCLOPRAMIDE HCL INJECTION 10 MG/2 ML VIAL ONE ×2 (13:34→21:15)
[2019-05-27 13:54] LABS: BASO % 0.3 % (0-2.0); EOS % 0.5 % (0-4.5); HEMATOCRIT 28.7 % (35.4-49); HEMOGLOBIN 9.5 GM/dL (11.7-16.9); LYMPH % 10.2 % (8-40); MCH 29.6 pg (25.7-33.7); MCHC 33.1 g/dl (32.0-35.9); MEAN CELL VOLUME 89.3 fl (80-96); MEAN PLT VOLUME 9.8 fl (7.5-11.1); PLATELET COUNT 296 K/MM3 (134-434); RBC 3.22 M/mm3 (4.00-5.60); RDW 13.7 % (11.9-15.9); WHITE BLOOD COUNT 17.9 K/mm3 (4.0-10.0)
[2019-05-27] MEDS ORDERED: METOCLOPRAMIDE HCL INJECTION 10 MG/2 ML VIAL IVPUSH ONE ×2 (14:11→20:55)
[2019-05-27 14:30] LABS: ALBUMIN 1.9 g/dl (3.4-5.0); ALK PHOS 91 U/L (45-117); ANION GAP 5 MMOL/L (8-16); BILIRUBIN,TOTAL 0.2 mg/dL (0.2-1); BLOOD UREA NITROGEN 18.9 mg/dL (7-18); CALCIUM 7.7 mg/dL (8.5-10.1); CHLORIDE 103 mmol/L (98-107); CO2 35 mmol/L (21-32); CREATININE 2.1 mg/dL (0.55-1.3); GLUCOSE,RANDOM 217 mg/dL (74-106); LIPASE 98 U/L (73-393); POTASSIUM 3.2 mmol/L (3.5-5.1); SGOT/AST 29 U/L (15-37); SGPT/ALT 26 U/L (13-61); SODIUM 143 mmol/L (136-145); TOT PROT 4.8 g/dl (6.4-8.2)
[2019-05-27] MEDS ORDERED: POTASSIUM CHLORIDE 20 MEQ PREMIX IVPB 100 ML IVPB ONE (15:01)
[2019-05-27 15:08] LABS: AMYLASE 39 U/L (25-115)
[2019-05-27] MEDS ORDERED: KCL 10 MEQ IVPB 10 MEQ/100 ML INFUS.BAG IVPB ONE ×2 (15:11→16:04)
--- NOTE | 2019-05-27 15:20 | PDOC ---
Documentation entered by Cristina Riddle SCRIBE, acting as scribe for Bryan Herrmann MD. Bryan Herrmann MD: This documentation has been prepared by the Janessa rubin Brenda, SCRIBE, under my direction and personally reviewed by me in its entirety. I confirm that the documentation accurately reflects all work, treatment, procedures, and medical decision making performed by me. Attending Attestation - Resident Resident Name: [email or web address] - ED Attending Attestation I have performed the following: I have examined & evaluated the patient, The case was reviewed & discussed with the resident, I agree w/resident's findings & plan, Exceptions are as noted - HPI HPI: 05/27/19 15:30 The patient is a 58 year old male with a significat PMH of IDDM, HTN, BPH, anemia and iwona lara tears and gastroporesis who presents to the ED for 3 days of nausea, vomitting and epigastric abdominal pain. Patient reports that he has presented multiple to the ED along with his GI for the same symtpoms He notes that he has had a colonoscopy and an endoscopy which were both negative. He notes he was discharged 7 days ago for the same symtpoms and was feeling well , but 3 days ago it restarted. He reports being unable to tolerate PO and has had no bowel moveemnts along with flatus in 3 days. He also endorses a headache , The patient denies chest pain, shortness of breath, headache and dizziness. Denies fever, chills, diarrhea. Denies dysuria, frequency, urgency and hematuria. Allergies: NKA Social history: No reported hx of tobacco use, alcohol use or illicit drug use. GI: Lantin - Physicial Exam PE: 05/27/19 15:44 Vitals: Triage vital signs reviewed General Appearance: No acute distress, well nourished, well developed Head: Atraumatic Eyes: Pupils equal reactive round, extraocular movement intact Neck: Supple; No nuchal rigidity Chest Wall: Nontender Cardiac: Regular rate and rhythm, no murmurs, no rubs, no gallops Lungs: Clear to auscultation bilateral, good air movement bilaterally Abdomen: (+) Milldy tender diffusely. Soft, nondistended, normal bowel sounds. Rectal: Exam deferred Extremities: Full range of motion to all extremities, no cyanosis, clubbing, or edema Skin: Warm and dry, no rashes or lesions, no rash, no petechiae Neuro: AOX3; Cranial Nerves 2-12 grossly intact, Strength intact to all extremities, Sensation intact to all extremities, gait normal Psych: Normal mood, normal affect - Medical Decision Making 05/27/19 17:53 58 years old with chronic abdominal discomfort vomiting presents with 3 days nausea vomiting epigastric abdominal pain Antiemetics ordered CAT scan ordered Dr. Montero to follow-up CT results reassess
[2019-05-27] MEDS: KCL 10 MEQ IVPB 10 MEQ/100 ML INFUS.BAG IVPB SCH ×2 (15:27→16:05)
--- NOTE | 2019-05-27 15:47 | EKG ---
Test Reason : Blood Pressure : / mmHG Vent. Rate : 096 BPM Atrial Rate : 096 BPM P-R Int : 160 ms QRS Dur : 090 ms QT Int : 378 ms P-R-T Axes : 068 -42 062 degrees QTc Int : 477 ms NORMAL SINUS RHYTHM LEFT AXIS DEVIATION POSSIBLE ANTEROSEPTAL INFARCT (CITED ON OR BEFORE 01-MAY-2019) ABNORMAL ECG WHEN COMPARED WITH ECG OF 18-MAY-2019 14:04, T WAVE INVERSION NO LONGER EVIDENT IN INFERIOR LEADS T WAVE INVERSION NO LONGER EVIDENT IN LATERAL LEADS Confirmed by David Collins ([id number]) on 05/27/2019 3:46:57 PM Referred By: Confirmed By:David Collins
[2019-05-27 19:49] LABS: EPI CELLS 8.1 /HPF (0-5/HPF); HYALINE CASTS 19 /lpf (0-8); URINE APPEARANCE CLEAR; URINE BACTERIA 3.3 /hpf (NEGATIVE); URINE BILIRUBIN NEGATIVE (NEGATIVE); URINE COLOR YELLOW; URINE GLUCOSE (UA) 1+ (NEGATIVE); URINE KETONE 1+ (NEGATIVE); URINE LEUK ESTERASE NEGATIVE (NEGATIVE); URINE NITRITE NEGATIVE (NEGATIVE); URINE PROTEIN 4+ (NEGATIVE); URINE RBC 31 /hpf (0-4); URINE UROBILINOGEN 0.2 mg/dL (0.2-1.0)
[2019-05-27] MEDS ORDERED: PANTOPRAZOLE SODIUM 40 MG VIAL IVPUSH ONE (20:55)
[2019-05-27] MEDS ORDERED: ONDANSETRON 4 MG/2 ML VIAL IVPUSH ONE (20:55)
[2019-05-27 21:01] LABS: URINE WBC 14.6 /hpf (0-5)
[2019-05-27] MEDS ORDERED: PANTOPRAZOLE SODIUM 40 MG/100 ML BAG IVPB ONE (21:15)
[2019-05-27] MEDS ORDERED: ONDANSETRON 4 MG/2 ML VIAL ONE (21:15)
--- NOTE | 2019-05-27 21:26 | HP ---
Admitting History and Physical - Primary Care Physician PCP: Estrada Strickland - Admission History of Present Illness: 58 year old male with a significat PMH of IDDM, HTN, BPH, anemia and iwona lara tears and gastroporesis who presents to the ED for 3 days of nausea, vomitting and epigastric abdominal pain. Patient reports that he has presented multiple to the ED along with his GI for the same symtpoms He notes that he has had a colonoscopy and an endoscopy which were both negative. He notes he was discharged 7 days ago for the same symtpoms and was feeling well, but 3 days ago it restarted. He reports being unable to tolerate PO and has had no bowel moveemnts along with flatus in 3 days. He also endorses a headache, - Past Medical History Cardiovascular: Yes: CHF (diastolic ), HTN Gastrointestinal: Yes: GI Bleed Renal/: Yes: Renal Inusuff Endocrine: Yes: Diabetes Mellitus (DM II) - Smoking History Smoking history: Never smoked Have you smoked in the past 12 months: No - Alcohol/Substance Use Hx Alcohol Use: No History of Substance Use: reports: None - Social History ADL: Independent History of Recent Travel: No Home Medications - Allergies Allergies/Adverse Reactions: Allergies Allergy/AdvReac Type Severity Reaction Status Date / Time No Known Allergies Allergy Verified 05/27/19 12:44 - Home Medications Home Medications: Ambulatory Orders Insulin Glargine,Hum.rec.anlog [Lantus Solostar PEN -] 30 units SQ HS 06/26/15 Atorvastatin Calcium 40 mg PO DAILY 05/02/19 Gabapentin 1 cap PO HS 05/02/19 Carvedilol [Coreg -] 12.5 mg PO BID #60 tablet 05/10/19 Lipase/Protease/Amylase [Nena Hodge 36,000 Units Capsule] 1 cap PO TIDCM #90 capsule. 05/10/19 Nifedipine ER [Procardia XL -] 90 mg PO DAILY #30 tab.er.24 05/10/19 Pantoprazole Sodium [Protonix] 40 mg PO DAILY #30 tablet. 05/10/19 Simethicone [Mylicon -] 80 mg PO QID PRN #120 tab.chew 05/10/19 Insulin (Novolog) [Novolog -] 3 unit SCJ TID #1 units 05/20/19 Review of Systems - Review of Systems Gastrointestinal: reports: Nausea, Vomiting Physical Examination Vital Signs: Vital Signs Temperature 98.3 F 05/27/19 19:02 Pulse Rate 78 05/27/19 19:02 Respiratory Rate 16 05/27/19 19:02 Blood Pressure 144/79 05/27/19 19:02 O2 Sat by Pulse Oximetry (%) 99 05/27/19 19:02 Constitutional: Yes: No Distress HENT: Yes: Atraumatic Neck: Yes: Supple Cardiovascular: Yes: Regular Rate and Rhythm Respiratory: Yes: CTA Bilaterally Gastrointestinal: Yes: Normal Bowel Sounds Extremities: Yes: WNL Neurological: Yes: Alert, Oriented Labs: CBC, BMP 05/27/19 13:00 05/27/19 13:00 Problem List - Problems (1) Nausea & vomiting Assessment/Plan: prn zofran npo as per gi Code(s): R11.2 - NAUSEA WITH VOMITING, UNSPECIFIED Qualifiers: Vomiting type: unspecified Vomiting Intractability: intractable Qualified Code(s): R11.2 - Nausea with vomiting, unspecified (2) Abdominal pain Code(s): R10.9 - UNSPECIFIED ABDOMINAL PAIN (3) Diabetes Assessment/Plan: insulin and bgms Code(s): E11.9 - TYPE 2 DIABETES MELLITUS WITHOUT COMPLICATIONS (4) Diastolic CHF Assessment/Plan: will get cardio on case Code(s): I50.30 - UNSPECIFIED DIASTOLIC (CONGESTIVE) HEART FAILURE (5) Uncontrolled diabetes mellitus Code(s): E11.65 - TYPE 2 DIABETES MELLITUS WITH HYPERGLYCEMIA Assessment/Plan Laboratory Tests 05/27/19 05/27/19 05/27/19 13:00 13:00 13:00 WBC 17.9 H RBC 3.22 L Hgb 9.5 L Hct 28.7 L MCV 89.3 MCH 29.6 MCHC 33.1 RDW 13.7 Plt Count 296 MPV 9.8 Absolute Neuts (auto) 15.2 H Neutrophils % 85.0 H D Lymphocytes % 10.2 D Monocytes % 4.0 Eosinophils % 0.5 Basophils % 0.3 Nucleated RBC % 0 Sodium 143 Potassium 3.2 L Chloride 103 Carbon Dioxide 35 H Anion Gap 5 L BUN 18.9 H Creatinine 2.1 H Est GFR (CKD-EPI)AfAm 39.59 Est GFR (CKD-EPI)NonAf 34.16 POC Glucometer Random Glucose 217 H Lactic Acid 1.2 Calcium 7.7 L Total Bilirubin 0.2 AST 29 ALT 26 Alkaline Phosphatase 91 Total Protein 4.8 L Albumin 1.9 L Total Amylase 39 Lipase 98 Beta-Hydroxybutyrate 12.2 H Urine Color Urine Appearance Urine pH Ur Specific [place] Urine Protein Urine Glucose (UA) Urine Ketones Urine Blood Urine Nitrite Urine Bilirubin Urine Urobilinogen Ur Leukocyte Esterase Urine WBC (Auto) Urine RBC (Auto) Urine Casts (Auto) U Epithel Cells (Auto) Urine Bacteria (Auto) 05/27/19 05/27/19 13:09 19:00 WBC RBC Hgb Hct MCV MCH MCHC RDW Plt Count MPV Absolute Neuts (auto) Neutrophils % Lymphocytes % Monocytes % Eosinophils % Basophils % Nucleated RBC % Sodium Potassium Chloride Carbon Dioxide Anion Gap BUN Creatinine Est GFR (CKD-EPI)AfAm Est GFR (CKD-EPI)NonAf POC Glucometer 231 Random Glucose Lactic Acid Calcium Total Bilirubin AST ALT Alkaline Phosphatase Total Protein Albumin Total Amylase Lipase Beta-Hydroxybutyrate Urine Color Yellow Urine Appearance Clear Urine pH 7.0 Ur Specific [place] 1.023 Urine Protein 4+ H Urine Glucose (UA) 1+ H Urine Ketones 1+ H Urine Blood 1+ H Urine Nitrite Negative Urine Bilirubin Negative Urine Urobilinogen 0.2 Ur Leukocyte Esterase Negative Urine WBC (Auto) 14.6 Urine RBC (Auto) 31 Urine Casts (Auto) 19 U Epithel Cells (Auto) 8.1 Urine Bacteria (Auto) 3.3 Active Medications Generic Name Dose Route Start Last Admin Trade Name Freq PRN Reason Stop Dose Admin Sodium Chloride 1,000 mls @ 1,000 mls/hr 05/27/19 20:55 05/27/19 21:24 Normal Saline - IV 05/27/19 21:54 1,000 mls/hr ASDIR STA Administration Active Medications Generic Name Dose Route Start Last Admin Trade Name Freq PRN Reason Stop Dose Admin Carvedilol 12.5 mg 05/27/19 22:00 05/30/19 11:02 Coreg - PO 12.5 mg BID PAVEL Administration Heparin Sodium (Porcine) 5,000 unit 05/27/19 22:00 05/30/19 11:02 Heparin - SQ 5,000 unit BID PAVEL Administration Ceftriaxone Sodium 1 gm/ 50 mls @ 100 mls/hr 05/29/19 12:30 05/30/19 11:01 Dextrose IVPB 100 mls/hr DAILY PAVEL Administration Protocol Potassium Chloride 10 meq/ 1,005 mls @ 42 mls/hr 05/30/19 14:45 05/30/19 15: 42 Amino Acids IVPB 42 mls/hr Q24H PAVEL Administration Insulin Aspart 1 vial 05/29/19 07:00 05/30/19 16:30 Novolog Vial Sliding Scale - SQ Not Given ACHS PAVEL Protocol Insulin Detemir 12 units 05/29/19 07:00 05/30/19 06:02 Levemir Vial SQ Not Given AM PAVEL Morphine Sulfate 2 mg 05/28/19 17:38 05/28/19 18:12 Morphine Sulfate IVPUSH 2 mg Q4H PRN Administration PAIN LEVEL 6-10 Nifedipine 90 mg 05/28/19 10:00 05/30/19 11:02 Procardia Xl - PO 90 mg DAILY PAVEL Administration Ondansetron HCl 4 mg 05/27/19 21:31 05/30/19 13:07 Zofran Injection IVPB 4 mg Q4H PRN Administration NAUSEA AND/OR VOMITING Pantoprazole Sodium 40 mg 05/28/19 10:00 05/30/19 11:02 Protonix Iv IVPUSH 40 mg DAILY PAVEL Administration
[2019-05-27] MEDS ORDERED: SODIUM CHLORIDE 1,000 ML IV SCH (21:45)
[2019-05-28] MEDS ORDERED: HEPARIN NA (PORCINE) 5,000 UNITS/ML 1ML VIAL ONE (00:35)
[2019-05-28] MEDS ORDERED: CARVEDILOL 12.5 MG TABLET (FP) ONE (00:35)
[2019-05-28] MEDS: CARVEDILOL 12.5 MG TABLET (FP) PO SCH ×3 (00:42→21:42)
[2019-05-28] MEDS: HEPARIN NA (PORCINE) 5,000 UNITS/ML 1ML VIAL SQ SCH ×3 (00:42→21:35)
[2019-05-28] MEDS: ONDANSETRON 4 MG/2 ML VIAL IVPB PRN ×3 (02:05→17:29)
[2019-05-28] MEDS ORDERED: MORPHINE SULFATE 2 MG/ML VIAL IVPUSH ONE (02:40)
[2019-05-28] MEDS: NIFEdipine E.R. 90 MG TABLET PO SCH (09:35)
[2019-05-28] MEDS: PANTOPRAZOLE SODIUM 40 MG VIAL IVPUSH SCH (09:35)
--- NOTE | 2019-05-28 11:38 | CON.CARD ---
Consult Consult Specialty:: cardiology Reason for Consultation:: AF with RVR - History of Present Illness Chief Complaint: Pt A7Ox3; anxious; nausea and vomiting; no chest pain or dypnea ; no palpitations History of Present Illness: The patient is a 58 year old black man with a significat PMH of IDDM, HTN, BPH, anemia and iwona lara tears and gastroporesis who presents to the ED for 3 days of nausea, vomitting and epigastric abdominal pain. Patient reports that he has presented multiple times to the ED for the same symtpoms He notes that he reportedly has had a recent colonoscopy and an endoscopy which were both negative. He notes he was discharged 7 days ago for the same symtpoms and was feeling well, but 3 days ago it restarted. He reports being unable to tolerate PO and has had no bowel moveemnts along with flatus in 3 days. He also endorses a headache, The patient denies chest pain, shortness of breath, headache and dizziness. Denies fever, chills, diarrhea. Denies dysuria, frequency, urgency and hematuria. His father had an NH in his 80s. - History Source History Provided By: Patient, Medical Record Limitations to Obtaining History: Poor Historian - Past Medical History Cardio/Vascular: Yes: CHF (diastolic ), HTN Gastrointestinal: Yes: GI Bleed Renal/: Yes: Renal Inusuff Endocrine: Yes: Diabetes Mellitus (DM II) - Alcohol/Substance Use Hx Alcohol Use: No History of Substance Use: reports: None - Smoking History Smoking history: Never smoked Have you smoked in the past 12 months: No - Social History ADL: Independent History of Recent Travel: No Home Medications - Allergies Allergies/Adverse Reactions: Allergies Allergy/AdvReac Type Severity Reaction Status Date / Time No Known Allergies Allergy Verified 05/27/19 12:44 - Home Medications Home Medications: Ambulatory Orders Insulin Glargine,Hum.rec.anlog [Lantus Solostar PEN -] 30 units SQ HS 06/26/15 Atorvastatin Calcium 40 mg PO DAILY 05/02/19 Gabapentin 1 cap PO HS 05/02/19 Carvedilol [Coreg -] 12.5 mg PO BID #60 tablet 05/10/19 Lipase/Protease/Amylase [Nena Hodge 36,000 Units Capsule] 1 cap PO TIDCM #90 capsule. 01/10/20 Nifedipine ER [Procardia XL -] 90 mg PO DAILY #30 tab.er.24 05/10/19 Pantoprazole Sodium [Protonix] 40 mg PO DAILY #30 tablet.dr 05/10/19 Simethicone [Mylicon -] 80 mg PO QID PRN #120 tab.chew 05/10/19 Insulin (Novolog) [Novolog -] 3 unit SCJ TID #1 units 05/20/19 Family Medical History Family Hx Cancer: Father (NH in his 80s), Brother (heart disease) Review of Systems - Review of Systems Constitutional: reports: No Symptoms Eyes: reports: No Symptoms HENT: reports: No Symptoms Neck: reports: No Symptoms Gastrointestinal: reports: Abdominal Pain, Nausea, Vomiting Genitourinary: reports: No Symptoms Breasts: reports: No Symptoms Reported Musculoskeletal: reports: No Symptoms Integumentary: reports: No Symptoms Neurological: reports: No Symptoms Endocrine: reports: No Symptoms Hematology/Lymphatic: reports: No Symptoms Psychiatric: reports: Anxiety - Risk Factors Known Risk Factors: Yes: Age, Family History, Gender, Hypercholesterolemia, Hypertension, Race, Other Vital Signs: Vital Signs Temperature 98.8 F 05/28/19 08:56 Pulse Rate 90 05/28/19 08:56 Respiratory Rate 20 05/28/19 09:05 Blood Pressure 161/86 05/28/19 08:56 O2 Sat by Pulse Oximetry (%) 98 05/28/19 09:05 Constitutional: Yes: Anxious Eyes: Yes: WNL HENT: Yes: WNL Neck: Yes: WNL Respiratory: Yes: WNL Gastrointestinal: Yes: Hyperactive Bowel Sounds, Tenderness Renal/: No: Anuria Cardiovascular: Yes: Regular Rate and Rhythm JVD: No Carotid Bruit: No PMI: Non-Displaced Heart Sounds: Yes: S1, S2, S4 Murmur: Yes: Systolic Murmur, Grade 1 Musculoskeletal: Yes: WNL Extremities: Yes: WNL Edema: Yes Edema: LLE: Trace, RLE: Trace Peripheral Pulses WNL: Yes Integumentary: Yes: WNL Neurological: Yes: WNL Psychiatric: Yes: Alert, Oriented, Other (anxious) - Other Data Labs, Other Data: CBC, BMP 05/27/19 13:00 05/27/19 13:00 Laboratory Results - last 24 hr 05/29/19 05/29/19 05/30/19 17:22 21:22 05:10 POC Glucometer 152 159 126 Triglycerides Cholesterol Total LDL Cholesterol HDL Cholesterol 05/30/19 05/30/19 06:26 11:14 POC Glucometer 134 Triglycerides 186 H Cholesterol 194 Total LDL Cholesterol 115 H HDL Cholesterol 45 Echo: Report Reviewed Ejection Fraction %: LVEF > or = 40 % Imaging - Results Chest X-ray: Image Reviewed EKG: Image Reviewed Problem List - Problems (1) Nausea & vomiting Assessment/Plan: multiple similar episodes F/u with GI Code(s): R11.2 - NAUSEA WITH VOMITING, UNSPECIFIED Qualifiers: Vomiting type: unspecified Vomiting Intractability: intractable Qualified Code(s): R11.2 - Nausea with vomiting, unspecified (2) Abdominal pain Code(s): R10.9 - UNSPECIFIED ABDOMINAL PAIN (3) Anemia Code(s): D64.9 - ANEMIA, UNSPECIFIED (4) Diabetes Code(s): E11.9 - TYPE 2 DIABETES MELLITUS WITHOUT COMPLICATIONS (5) Diastolic CHF Code(s): I50.30 - UNSPECIFIED DIASTOLIC (CONGESTIVE) HEART FAILURE (6) Elevated troponin Assessment/Plan: hx chronic elevation of TNI. Will f/u this admission. Multiple CAD risks. If not done rcently, will do stress test when stable (may be done as outpatient) . Code(s): R79.89 - OTHER SPECIFIED ABNORMAL FINDINGS OF BLOOD CHEMISTRY (7) Hypoalbuminemia Code(s): E88.09 - OTH DISORDERS OF PLASMA-PROTEIN METABOLISM, NEC (8) Intractable vomiting Code(s): R11.10 - VOMITING, UNSPECIFIED
[2019-05-28 16:22] LABS: MAGNESIUM 1.7 mg/dL (1.8-2.4); N-TERMINAL BNP 262.3 pg/ml (5-125); PHOSPHOROUS 2.8 mg/dL (2.5-4.9)
--- NOTE | 2019-05-28 17:14 | CON.GI ---
Consult Consult Specialty:: GI Referred by:: Dr Strickland Reason for Consultation:: Nausea, Vomiting - History of Present Illness History of Present Illness: Patient is a 58 y/o male with past medical history of IDDM, HTN, BPH, Anemia, Sayda Perry tear and gastroparesis. Called by Dr Strickland to evaluate patient. Patient complains of nauasea and NBNB vomiting accompanied with sharp mid abdominal pain. Pain is non-radiating and there no alleviating/exacerbating factors. Patiet admits to smoking marijuana Complains of having constipation. Denies rectal bleeding, blood in stool, or melena. He states the pain started shortly after he was discharged home. Patient was recently discharged from [facility] on 05/20/19 for same chief complaint. On last admission he underwent and EGD which showed normal esophageal mucosa, abnormal mucosa in gastric body, normal duodenal mucosa. - History Source History Provided By: Patient Limitations to Obtaining History: No Limitations - Past Medical History Cardio/Vascular: Yes: CHF (diastolic ), HTN Gastrointestinal: Yes: GI Bleed Renal/: Yes: Renal Inusuff Endocrine: Yes: Diabetes Mellitus (DM II) - Alcohol/Substance Use Hx Alcohol Use: No History of Substance Use: reports: None - Smoking History Smoking history: Never smoked Have you smoked in the past 12 months: No - Social History ADL: Independent History of Recent Travel: No Home Medications - Allergies Allergies/Adverse Reactions: Allergies Allergy/AdvReac Type Severity Reaction Status Date / Time No Known Allergies Allergy Verified 05/27/19 12:44 - Home Medications Home Medications: Ambulatory Orders Insulin Glargine,Hum.rec.anlog [Lantus Solostar PEN -] 30 units SQ HS 06/26/15 Atorvastatin Calcium 40 mg PO DAILY 05/02/19 Gabapentin 1 cap PO HS 05/02/19 Carvedilol [Coreg -] 12.5 mg PO BID #60 tablet 05/10/19 Lipase/Protease/Amylase [Nena Hodge 36,000 Units Capsule] 1 cap PO TIDCM #90 capsule. 05/10/19 Nifedipine ER [Procardia XL -] 90 mg PO DAILY #30 tab.er.24 05/10/19 Pantoprazole Sodium [Protonix] 40 mg PO DAILY #30 tablet. 05/10/19 Simethicone [Mylicon -] 80 mg PO QID PRN #120 tab.chew 05/10/19 Insulin (Novolog) [Novolog -] 3 unit SCJ TID #1 units 05/20/19 Review of Systems - Review of Systems Constitutional: reports: Loss of Appetite, Weakness Eyes: reports: No Symptoms HENT: reports: No Symptoms Neck: reports: No Symptoms Cardiovascular: reports: No Symptoms Respiratory: reports: No Symptoms Gastrointestinal: reports: Abdominal Pain, Constipation, Nausea, Vomiting Genitourinary: reports: No Symptoms Breasts: reports: No Symptoms Reported Musculoskeletal: reports: No Symptoms Integumentary: reports: No Symptoms Neurological: reports: No Symptoms Endocrine: reports: No Symptoms Hematology/Lymphatic: reports: No Symptoms Psychiatric: reports: No Symptoms Physical Exam-GI Vital Signs: Vital Signs Temperature 98.2 F 05/28/19 15:29 Pulse Rate 89 05/28/19 15:29 Respiratory Rate 20 05/28/19 15:29 Blood Pressure 154/84 05/28/19 15:29 O2 Sat by Pulse Oximetry (%) 98 05/28/19 10:00 Constitutional: Yes: No Distress Eyes: Yes: Conjunctiva Clear HENT: Yes: Atraumatic Cardiovascular: Yes: Regular Rate and Rhythm Respiratory: Yes: Regular, CTA Bilaterally Gastrointestinal Inspection: Yes: WNL. No: Ascites, Distention, Hernia, Scars, Other ...Auscultate: Yes: Normoactive Bowel Sounds ...Palpate: Yes: Soft, Tenderness (diffuse). No: Firm/Rigid, Guarding, Hepatomegaly, Mass, Pulsatile Mass, Splenomegaly, Tenderness, Epigastium, Tenderness, Rebound, Other ...Percussion: Yes: Tympanitic. No: Dullness, Fluid Wave, Other Labs: CBC, BMP 05/27/19 13:00 05/27/19 13:00 Imaging - Results Cat Scan: Report Reviewed Problem List - Problems (1) Nausea & vomiting Assessment/Plan: -r/o secondary to Gastro paresis, cyclic vomiting syndrome? Cardiology consulted due to prolong QT interval -Zofran IVPB prn WILL NEED DAILY EKGs to monitor QT interval -NPO -IV hydration urine toxicology Code(s): R11.2 - NAUSEA WITH VOMITING, UNSPECIFIED Qualifiers: Vomiting type: unspecified Vomiting Intractability: intractable Qualified Code(s): R11.2 - Nausea with vomiting, unspecified (2) Abdominal pain Assessment/Plan: -CTAP shows partial resolution of mild bilateral peritoneal soft tissue edema, mild concentric subcutaneous soft tissue stranding which may be on the basis of fluid retention,Etiology unclear, previous EGD in May 2019 mild gastritis -NPO -IV hydration -UA shows microscopic hematuria with RBC 31 consider Urology and Nephrology consult urine toxicology surgical consult Dr Hernandez will be covering Code(s): R10.9 - UNSPECIFIED ABDOMINAL PAIN
[2019-05-28] MEDS ORDERED: MORPHINE SULFATE 2 MG/ML VIAL IVPUSH PRN (17:38)
--- NOTE | 2019-05-28 17:39 | PN ---
Progress Note, Physician - Current Medication List Current Medications: Active Medications Carvedilol (Coreg -) 12.5 mg PO BID [facility] Last Admin: 05/28/19 09:35 Dose: 12.5 mg Heparin Sodium (Porcine) (Heparin -) 5,000 unit SQ BID [facility] Last Admin: 05/28/19 09:35 Dose: 5,000 unit Sodium Chloride (Normal Saline -) 1,000 mls @ 75 mls/hr IV ASDIR [facility] Last Admin: 05/28/19 00:42 Dose: 75 mls/hr Morphine Sulfate (Morphine Sulfate) 2 mg IVPUSH Q4H PRN PRN Reason: PAIN LEVEL 6-10 Nifedipine (Procardia Xl -) 90 mg PO DAILY [facility] Last Admin: 05/28/19 09:35 Dose: 90 mg Ondansetron HCl (Zofran Injection) 4 mg IVPB Q4H PRN PRN Reason: NAUSEA AND/OR VOMITING Last Admin: 05/28/19 17:29 Dose: 4 mg Pantoprazole Sodium (Protonix Iv) 40 mg IVPUSH DAILY [facility] Last Admin: 05/28/19 09:35 Dose: 40 mg - Objective Vital Signs: Vital Signs Temperature 98.2 F 05/28/19 15:29 Pulse Rate 89 05/28/19 15:29 Respiratory Rate 20 05/28/19 15:29 Blood Pressure 154/84 05/28/19 15:29 O2 Sat by Pulse Oximetry (%) 98 05/28/19 10:00 Constitutional: Yes: No Distress HENT: Yes: Atraumatic Neck: Yes: Supple Cardiovascular: Yes: Regular Rate and Rhythm Respiratory: Yes: CTA Bilaterally Gastrointestinal: Yes: Normal Bowel Sounds Extremities: Yes: WNL Neurological: Yes: Alert Labs: CBC, BMP 05/27/19 13:00 05/27/19 13:00 Problem List - Problems (1) Nausea & vomiting Assessment/Plan: prn zofran clear liquid diet Code(s): R11.2 - NAUSEA WITH VOMITING, UNSPECIFIED Qualifiers: Vomiting type: unspecified Vomiting Intractability: intractable Qualified Code(s): R11.2 - Nausea with vomiting, unspecified (2) Abdominal pain Code(s): R10.9 - UNSPECIFIED ABDOMINAL PAIN (3) Diabetes Assessment/Plan: insulin and bgms Code(s): E11.9 - TYPE 2 DIABETES MELLITUS WITHOUT COMPLICATIONS (4) Diastolic CHF Assessment/Plan: will get cardio on case Code(s): I50.30 - UNSPECIFIED DIASTOLIC (CONGESTIVE) HEART FAILURE (5) Uncontrolled diabetes mellitus Code(s): E11.65 - TYPE 2 DIABETES MELLITUS WITH HYPERGLYCEMIA
[2019-05-28] MEDS ORDERED: SODIUM CHLORIDE 1,000 ML IV SCH (19:30)
[2019-05-28 20:03] LABS: BASO % 0.8 % (0-2.0); EOS % 0.5 % (0-4.5); HEMATOCRIT 28.6 % (35.4-49); HEMOGLOBIN 9.4 GM/dL (11.7-16.9); LYMPH % 13.4 % (8-40); MCHC 32.8 g/dl (32.0-35.9); MEAN CELL VOLUME 91.5 fl (80-96); MEAN PLT VOLUME 9.3 fl (7.5-11.1); MONO % 6.7 % (3.8-10.2); NEUT % 78.6 % (42.8-82.8); PLATELET COUNT 290 K/MM3 (134-434); RBC 3.13 M/mm3 (4.00-5.60); RDW 13.8 % (11.9-15.9); WHITE BLOOD COUNT 12.9 K/mm3 (4.0-10.0)
[2019-05-28 20:32] LABS: ALBUMIN 1.9 g/dl (3.4-5.0); BILIRUBIN,TOTAL 0.2 mg/dL (0.2-1); BLOOD UREA NITROGEN 15.7 mg/dL (7-18); CALCIUM 7.4 mg/dL (8.5-10.1); CREATININE 1.8 mg/dL (0.55-1.3); POTASSIUM 3.2 mmol/L (3.5-5.1); TOT PROT 4.8 g/dl (6.4-8.2)
[2019-05-28] MEDS ORDERED: POTASSIUM CHLORIDE ORAL LIQUID 20 MEQ/15 ML PO ONE (20:43)
--- NOTE | 2019-05-28 20:43 | CONSULT ---
Consult Consult Specialty:: Nephrology Reason for Consultation:: CKD - History of Present Illness Chief Complaint: vomiting History of Present Illness: Pt is a 58 year old male with pmhx of ckd, htn, dm and gastroparesis who presents to the ER with nausea and vomiting. He was found to have elevated rn iv therapy and I was called to evaluate him. He denies nsaid use. He had a few days of vomiting and was not eating. He denies shortness of breath. - History Source History Provided By: Patient, Medical Record - Past Medical History Cardio/Vascular: Yes: CHF (diastolic ), HTN Gastrointestinal: Yes: GI Bleed Renal/: Yes: Renal Inusuff Endocrine: Yes: Diabetes Mellitus (DM II) - Alcohol/Substance Use Hx Alcohol Use: No History of Substance Use: reports: None - Smoking History Smoking history: Never smoked Have you smoked in the past 12 months: No - Social History ADL: Independent History of Recent Travel: No Home Medications - Allergies Allergies/Adverse Reactions: Allergies Allergy/AdvReac Type Severity Reaction Status Date / Time No Known Allergies Allergy Verified 05/27/19 12:44 - Home Medications Home Medications: Ambulatory Orders Insulin Glargine,Hum.rec.anlog [Lantus Solostar PEN -] 30 units SQ HS 06/26/15 Atorvastatin Calcium 40 mg PO DAILY 05/02/19 Gabapentin 1 cap PO HS 05/02/19 Carvedilol [Coreg -] 12.5 mg PO BID #60 tablet 05/10/19 Lipase/Protease/Amylase [Nena Hodge 36,000 Units Capsule] 1 cap PO TIDCM #90 capsule. 05/10/19 Nifedipine ER [Procardia XL -] 90 mg PO DAILY #30 tab.er.24 05/10/19 Pantoprazole Sodium [Protonix] 40 mg PO DAILY #30 tablet. 05/10/19 Simethicone [Mylicon -] 80 mg PO QID PRN #120 tab.chew 05/10/19 Insulin (Novolog) [Novolog -] 3 unit SCJ TID #1 units 05/20/19 Family Medical History Family History: Denies Review of Systems - Review of Systems Constitutional: reports: Malaise Eyes: reports: No Symptoms HENT: reports: No Symptoms Neck: reports: No Symptoms Cardiovascular: reports: No Symptoms Respiratory: reports: No Symptoms Gastrointestinal: reports: Nausea, Vomiting Genitourinary: reports: No Symptoms Musculoskeletal: reports: No Symptoms Integumentary: reports: No Symptoms Neurological: reports: No Symptoms Endocrine: reports: No Symptoms Hematology/Lymphatic: reports: No Symptoms Psychiatric: reports: No Symptoms Physical Exam Vital Signs: Vital Signs Temperature 98.2 F 05/28/19 18:00 Pulse Rate 88 05/28/19 18:00 Respiratory Rate 20 05/28/19 18:00 Blood Pressure 110/59 L 05/28/19 18:00 O2 Sat by Pulse Oximetry (%) 98 05/28/19 10:00 Constitutional: Yes: Calm Eyes: Yes: Conjunctiva Clear HENT: Yes: Atraumatic Neck: Yes: Supple Cardiovascular: Yes: S1, S2 Respiratory: Yes: CTA Bilaterally Gastrointestinal: Yes: Soft Musculoskeletal: Yes: WNL Edema: No Neurological: Yes: Oriented Psychiatric: Yes: Oriented Labs: CBC, BMP 05/28/19 19:30 05/28/19 19:30 Laboratory Tests 05/27/19 05/27/19 05/28/19 13:00 19:00 19:30 Sodium 143 146 H Potassium 3.2 L 3.2 L Creatinine 2.1 H 1.8 H Magnesium 1.7 L Urine Protein 4+ H Urine Blood 1+ H Imaging - Results Cat Scan: Report Reviewed Assessment/Plan Current Medications Generic Name Dose Route Start Last Admin Trade Name Freq PRN Reason Stop Dose Admin Carvedilol 12.5 mg 05/27/19 22:00 05/28/19 09:35 Coreg - PO 12.5 mg BID PAVEL Administration Heparin Sodium (Porcine) 5,000 unit 05/27/19 22:00 05/28/19 09:35 Heparin - SQ 5,000 unit BID PAVEL Administration Sodium Chloride 1,000 mls @ 100 mls/hr 05/28/19 19:30 Normal Saline - IV ASDIR P[facility]EL Morphine Sulfate 2 mg 05/28/19 17:38 05/28/19 18:12 Morphine Sulfate IVPUSH 2 mg Q4H PRN Administration PAIN LEVEL 6-10 Nifedipine 90 mg 05/28/19 10:00 05/28/19 09:35 Procardia Xl - PO 90 mg DAILY [facility]EL Administration Ondansetron HCl 4 mg 05/27/19 21:31 05/28/19 17:29 Zofran Injection IVPB 4 mg Q4H PRN Administration NAUSEA AND/OR VOMITING Pantoprazole Sodium 40 mg 05/28/19 10:00 05/28/19 09:35 Protonix Iv IVPUSH 40 mg DAILY P[facility]EL Administration Impression 1. vomiting 2. HTN 3. DM 4. anemia 5. bph 6. CKD 7. gastroparesis 8. hypokalemia 9. hypernatremia 10. hypomag Plan - replace mag - replace potassium - change fluids to 1/2 ns - check prt to rn iv therapy ratio - rn iv therapy is improved - repeat UA - recommend he does not smoke marijuana
[2019-05-28] MEDS ORDERED: MAGNESIUM SULF 50% (8.12 MEQ/2 ML-1 GM VIAL) IVPB ONE (20:44)
[2019-05-28] MEDS: KCL 10 MEQ IVPB 10 MEQ/100 ML INFUS.BAG IVPB SCH (21:41)
[2019-05-28] MEDS: SODIUM CHLORIDE 0.45% 1,000 ML with POTASSIUM CHLORIDE 20 MEQ IVPB SCH (21:44)
[2019-05-29] MEDS: KCL 10 MEQ IVPB 10 MEQ/100 ML INFUS.BAG IVPB SCH (00:30)
--- NOTE | 2019-05-29 00:58 | CONSULT ---
Consult Consult Specialty:: endocrine Reason for Consultation:: dmt2 - History of Present Illness Chief Complaint: nausea and vomiting History of Present Illness: 58 y/o male with past medical history of DMT1, HTN, BPH, Anemia, Sayda Perry tear and gastroparesis. Patient has had [place] and NBNB vomiting ,ho constipation,accompanied with sharp mid abdominal pain. Pain is non-radiating . Patiet admits to smoking marijuana . Denies rectal bleeding, blood in stool, or melena. he has had dm for several years,has frequent high sugars,does not check sugars or adhere to insulin well,he takes long acting once a day in am,and short acting with meals.denies blurred vision,. - Past Medical History Cardio/Vascular: Yes: CHF (diastolic ), HTN Gastrointestinal: Yes: GI Bleed Renal/: Yes: Renal Inusuff Endocrine: Yes: Diabetes Mellitus (DM II) - Alcohol/Substance Use Hx Alcohol Use: No History of Substance Use: reports: None - Smoking History Smoking history: Never smoked Have you smoked in the past 12 months: No - Social History ADL: Independent History of Recent Travel: No Home Medications - Allergies Allergies/Adverse Reactions: Allergies Allergy/AdvReac Type Severity Reaction Status Date / Time No Known Allergies Allergy Verified 05/27/19 12:44 - Home Medications Home Medications: Ambulatory Orders Insulin Glargine,Hum.rec.anlog [Lantus Solostar PEN -] 30 units SQ HS 06/26/15 Atorvastatin Calcium 40 mg PO DAILY 05/02/19 Gabapentin 1 cap PO HS 05/02/19 Carvedilol [Coreg -] 12.5 mg PO BID #60 tablet 05/10/19 Lipase/Protease/Amylase [Nena Hodge 36,000 Units Capsule] 1 cap PO TIDCM #90 capsule. 05/10/19 Nifedipine ER [Procardia XL -] 90 mg PO DAILY #30 tab.er.24 05/10/19 Pantoprazole Sodium [Protonix] 40 mg PO DAILY #30 tablet. 05/10/19 Simethicone [Mylicon -] 80 mg PO QID PRN #120 tab.chew 05/10/19 Insulin (Novolog) [Novolog -] 3 unit SCJ TID #1 units 05/20/19 Review of Systems - Review of Systems Constitutional: reports: Lethargy, Unintentional Wgt. Loss, Weakness Eyes: reports: Blurred Vision HENT: reports: No Symptoms Neck: reports: No Symptoms Cardiovascular: reports: Shortness of Breath Respiratory: reports: Exercise Intolerance, SOB on Exertion Gastrointestinal: reports: Bloating, Constipation, Indigestion Genitourinary: reports: Frequency Breasts: reports: No Symptoms Reported Musculoskeletal: reports: Extremity Pain, Muscle Pain, Muscle Cramps Integumentary: reports: No Symptoms Neurological: reports: Numbness, Weakness Endocrine: reports: Unexplained Weight Loss Physical Exam Vital Signs: Vital Signs Temperature 98.2 F 05/28/19 18:00 Pulse Rate 88 05/28/19 18:00 Respiratory Rate 20 05/28/19 18:00 Blood Pressure 110/59 L 05/28/19 18:00 O2 Sat by Pulse Oximetry (%) 98 05/28/19 10:00 Constitutional: Yes: Anxious Eyes: Yes: EOM Intact HENT: Yes: Normocephalic Neck: Yes: Trachea Midline Cardiovascular: Yes: Regular Rate and Rhythm Respiratory: Yes: CTA Bilaterally Gastrointestinal: Yes: Normal Bowel Sounds ...Rectal Exam: Yes: Deferred Renal/: Yes: WNL Breast(s): Yes: WNL Musculoskeletal: Yes: Back Pain, Muscle Pain, Muscle Weakness Extremities: Yes: WNL Neurological: Yes: Alert, Oriented Labs: CBC, BMP 05/28/19 19:30 05/28/19 19:30 Problem List - Problems (1) Type 1 diabetes mellitus with diabetic chronic kidney disease Problems reviewed: Yes Code(s): E10.22 - TYPE 1 DIABETES MELLITUS W DIABETIC CHRONIC KIDNEY DISEASE Qualifiers: Qualified Code(s): E10.22 - Type 1 diabetes mellitus with diabetic chronic kidney disease; N18.2 - Chronic kidney disease, stage 2 (mild) (2) Nausea & vomiting Problems reviewed: Yes Qualifiers: Vomiting type: unspecified Vomiting Intractability: intractable Qualified Code(s): R11.2 - Nausea with vomiting, unspecified (3) Abdominal pain Code(s): R10.9 - UNSPECIFIED ABDOMINAL PAIN (4) Anemia Code(s): D64.9 - ANEMIA, UNSPECIFIED (5) Diabetes Code(s): E11.9 - TYPE 2 DIABETES MELLITUS WITHOUT COMPLICATIONS (6) Diarrhea Code(s): R19.7 - DIARRHEA, UNSPECIFIED (7) Elevated troponin Code(s): R79.89 - OTHER SPECIFIED ABNORMAL FINDINGS OF BLOOD CHEMISTRY (8) [place] cardiac risk >20% in next 10 years Code(s): Z91.89 - OTH PERSONAL RISK FACTORS, NOT ELSEWHERE CLASSIFIED Assessment/Plan Current Active Problems Nausea & vomiting (Acute) dm type 1 ckd/diabetic gastroparesi,diabetic neuropathy htn ashd hld Abnormal Lab Results 05/27/19 05/28/19 05/28/19 13:00 19:30 19:30 WBC 12.9 H RBC 3.13 L Hgb 9.4 L Hct 28.6 L Absolute Neuts (auto) 10.1 H Sodium 146 H Potassium 3.2 L 3.2 L Chloride 109 H Carbon Dioxide 35 H Anion Gap 5 L 7 L BUN 18.9 H Creatinine 2.1 H 1.8 H Random Glucose 217 H 163 H Calcium 7.7 L 7.4 L Magnesium 1.7 L Creatine Kinase 614 H B-Natriuretic Peptide 262.3 H Total Protein 4.8 L 4.8 L Albumin 1.9 L 1.9 L Beta-Hydroxybutyrate 12.2 H Laboratory Results - last 24 hr 05/27/19 05/28/19 05/28/19 13:00 19:30 19:30 WBC 12.9 H RBC 3.13 L Hgb 9.4 L Hct 28.6 L MCV 91.5 MCH 30.0 MCHC 32.8 RDW 13.8 Plt Count 290 MPV 9.3 Absolute Neuts (auto) 10.1 H Neutrophils % 78.6 Lymphocytes % 13.4 D Monocytes % 6.7 Eosinophils % 0.5 Basophils % 0.8 Nucleated RBC % 0 Sodium 143 146 H Potassium 3.2 L 3.2 L Chloride 103 109 H Carbon Dioxide 35 H 30 Anion Gap 5 L 7 L BUN 18.9 H 15.7 Creatinine 2.1 H 1.8 H Est GFR (CKD-EPI)AfAm 39.59 47.70 Est GFR (CKD-EPI)NonAf 34.16 41.16 Random Glucose 217 H 163 H Calcium 7.7 L 7.4 L Phosphorus 2.8 Magnesium 1.7 L Total Bilirubin 0.2 0.2 AST 29 22 ALT 26 23 Alkaline Phosphatase 91 87 Creatine Kinase 614 H Creatine Kinase Index 0.3 CK-MB (CK-2) 2.1 Troponin I < 0.02 B-Natriuretic Peptide 262.3 H Total Protein 4.8 L 4.8 L Albumin 1.9 L 1.9 L Total Amylase 39 Lipase 98 Beta-Hydroxybutyrate 12.2 H plan: bgm qachs novolog scale dose low for sensitivity is low levemir 12 unit rashad ck hba1c ck lipid panel
[2019-05-29] MEDS: ONDANSETRON 4 MG/2 ML VIAL IVPB PRN ×3 (02:30→21:21)
[2019-05-29] MEDS: INSULIN (LEVEMIR) 100 UNITS/ML UNITS SQ SCH (06:07)
[2019-05-29] MEDS: INSULIN SLIDING SCALE (NOVOLOG) 1 VIAL SQ SCH ×4 (06:07→21:23)
[2019-05-29 07:12] LABS: BASO % 0.6 % (0-2.0); HEMATOCRIT 26.7 % (35.4-49); HEMOGLOBIN 8.9 GM/dL (11.7-16.9); LYMPH % 20.4 % (8-40); MCH 30.3 pg (25.7-33.7); MCHC 33.5 g/dl (32.0-35.9); MEAN CELL VOLUME 90.5 fl (80-96); MONO % 6.9 % (3.8-10.2); NEUT % 71.1 % (42.8-82.8); PLATELET COUNT 305 K/MM3 (134-434); RBC 2.94 M/mm3 (4.00-5.60); RDW 13.8 % (11.9-15.9); WHITE BLOOD COUNT 10.9 K/mm3 (4.0-10.0)
[2019-05-29 07:43] LABS: ALBUMIN 1.8 g/dl (3.4-5.0); BILIRUBIN,TOTAL 0.2 mg/dL (0.2-1); BLOOD UREA NITROGEN 14.9 mg/dL (7-18); CALCIUM 7.4 mg/dL (8.5-10.1); CREATININE 1.7 mg/dL (0.55-1.3); MAGNESIUM 1.8 mg/dL (1.8-2.4); PHOSPHOROUS 2.4 mg/dL (2.5-4.9); POTASSIUM 3.6 mmol/L (3.5-5.1); TOT PROT 4.6 g/dl (6.4-8.2)
[2019-05-29 08:16] LABS: COCAINE, UR NEGATIVE ng/ml (CUTOFF=300); METHADONE, UR NEGATIVE ng/ml (CUTOFF=300); PHENCYCLIDINE,URINE NEGATIVE ng/ml (CUTOFF=25); URINE AMPHETAMINES NEGATIVE ng/ml (CUTOFF=500); URINE BARBITURATES NEGATIVE ng/ml (CUTOFF=200); URINE BENZODIAZEPINES NEGATIVE ng/ml (CUTOFF=200)
[2019-05-29 08:20] LABS: EPI CELLS 2.9 /HPF (0-5/HPF); HYALINE CASTS 6 /lpf (0-8); PH,URINE 7.5 (5.0-8.0); URINE APPEARANCE CLEAR; URINE BACTERIA 21.8 /hpf (NEGATIVE); URINE BILIRUBIN NEGATIVE (NEGATIVE); URINE COLOR YELLOW; URINE GLUCOSE (UA) TRACE (NEGATIVE); URINE KETONE 1+ (NEGATIVE); URINE LEUK ESTERASE NEGATIVE (NEGATIVE); URINE NITRITE NEGATIVE (NEGATIVE); URINE PROTEIN 3+ (NEGATIVE); URINE RBC 7 /hpf (0-4); URINE UROBILINOGEN 0.2 mg/dL (0.2-1.0); URINE WBC 2 /hpf (0-5)
[2019-05-29 08:46] LABS: OPIATES, URI POSITIVE ng/ml (CUTOFF=300)
--- NOTE | 2019-05-29 09:14 | CON.GU ---
Consult Consult Specialty:: urology Reason for Consultation:: microscopic hematuria - History of Present Illness Chief Complaint: microscopic hematuria History of Present Illness: Pt is a 58 year old male with pmhx of ckd, htn, dm and gastroparesis who presents to the ER with nausea and vomiting. Patient denies flank pain or history of kidney stones or gross hematuria. A check of a post void urinary volume was 140 cc which is within normal limits. Upper tract studies show no evidence of hydryonephrosis. - Past Medical History Cardio/Vascular: Yes: CHF (diastolic ), HTN Gastrointestinal: Yes: GI Bleed Renal/: Yes: Renal Inusuff Endocrine: Yes: Diabetes Mellitus (DM II) - Alcohol/Substance Use Hx Alcohol Use: No History of Substance Use: reports: None - Smoking History Smoking history: Never smoked Have you smoked in the past 12 months: No - Social History ADL: Independent History of Recent Travel: No Home Medications - Allergies Allergies/Adverse Reactions: Allergies Allergy/AdvReac Type Severity Reaction Status Date / Time No Known Allergies Allergy Verified 05/27/19 12:44 - Home Medications Home Medications: Ambulatory Orders Insulin Glargine,Hum.rec.anlog [Lantus Solostar PEN -] 30 units SQ HS 06/26/15 Atorvastatin Calcium 40 mg PO DAILY 05/02/19 Gabapentin 1 cap PO HS 05/02/19 Carvedilol [Coreg -] 12.5 mg PO BID #60 tablet 05/10/19 Lipase/Protease/Amylase [Nena Hodge 36,000 Units Capsule] 1 cap PO TIDCM #90 capsule. 05/10/19 Nifedipine ER [Procardia XL -] 90 mg PO DAILY #30 tab.er.24 05/10/19 Pantoprazole Sodium [Protonix] 40 mg PO DAILY #30 tablet. 05/10/19 Simethicone [Mylicon -] 80 mg PO QID PRN #120 tab.chew 05/10/19 Insulin (Novolog) [Novolog -] 3 unit SCJ TID #1 units 05/20/19 Physical Exam- Vital Signs: Vital Signs Temperature 97.8 F 05/29/19 06:05 Pulse Rate 88 05/29/19 06:05 Respiratory Rate 20 05/29/19 06:05 Blood Pressure 168/91 05/29/19 06:05 O2 Sat by Pulse Oximetry (%) 96 05/28/19 21:00 Constitutional: Yes: Calm HENT: Yes: Atraumatic, Normocephalic Neck: Yes: WNL, Supple, Trachea Midline Cardiovascular: Yes: Regular Rate and Rhythm Respiratory: Yes: Regular Gastrointestinal: Yes: Normal Bowel Sounds, Soft Renal/: Yes: WNL Kidneys: Yes: WNL Pelvis: Yes: WNL Testicles: Yes: WNL Scrotum: Yes: WNL Prostate Exam: Yes: Deferred Labs: CBC, BMP 05/29/19 06:12 05/29/19 06:12 Imaging - Results Cat Scan: Report Reviewed (no evidence of mass or hydronephrosis) Assessment/Plan impression microscopic hematuria chronic kidney disease plan will follow up as outpatient to schedule cystoscopy
[2019-05-29] MEDS: PANTOPRAZOLE SODIUM 40 MG VIAL IVPUSH SCH (09:19)
[2019-05-29] MEDS: HEPARIN NA (PORCINE) 5,000 UNITS/ML 1ML VIAL SQ SCH ×2 (09:19→21:21)
[2019-05-29] MEDS: NIFEdipine E.R. 90 MG TABLET PO SCH (09:19)
[2019-05-29] MEDS: CARVEDILOL 12.5 MG TABLET (FP) PO SCH ×2 (09:19→21:21)
--- NOTE | 2019-05-29 12:17 | CON.ID ---
Consult Consult Specialty:: infectious diseases Referred by:: Reason for Consultation:: nausea,vomiting - History of Present Illness Chief Complaint: nausea,vomiting History of Present Illness: 58 year old male with pmhx of ckd, htn, dm and gastroparesis who presents to the ER with nausea and vomiting. He was found to have elevated fall internship and I was called to evaluate him. He denies nsaid use. He had a few days of vomiting and was not eating. He denies shortness of breath. patient mentions that nothing has changed he smokes marijana and does not do any drugs - History Source History Provided By: Patient Limitations to Obtaining History: No Limitations - Past Medical History Cardio/Vascular: Yes: CHF (diastolic ), HTN Gastrointestinal: Yes: GI Bleed Renal/: Yes: Renal Inusuff Endocrine: Yes: Diabetes Mellitus (DM II) - Alcohol/Substance Use Hx Alcohol Use: No History of Substance Use: reports: None - Smoking History Smoking history: Never smoked Have you smoked in the past 12 months: No - Social History ADL: Independent History of Recent Travel: No Home Medications - Allergies Allergies/Adverse Reactions: Allergies Allergy/AdvReac Type Severity Reaction Status Date / Time No Known Allergies Allergy Verified 05/27/19 12:44 - Home Medications Home Medications: Ambulatory Orders Insulin Glargine,Hum.rec.anlog [Lantus Solostar PEN -] 30 units SQ HS 06/26/15 Atorvastatin Calcium 40 mg PO DAILY 05/02/19 Gabapentin 1 cap PO HS 05/02/19 Carvedilol [Coreg -] 12.5 mg PO BID #60 tablet 05/10/19 Lipase/Protease/Amylase [Nena Hodge 36,000 Units Capsule] 1 cap PO TIDCM #90 capsule. 05/10/19 Nifedipine ER [Procardia XL -] 90 mg PO DAILY #30 tab.er.24 05/10/19 Pantoprazole Sodium [Protonix] 40 mg PO DAILY #30 tablet. 05/10/19 Simethicone [Mylicon -] 80 mg PO QID PRN #120 tab.chew 05/10/19 Insulin (Novolog) [Novolog -] 3 unit SCJ TID #1 units 05/20/19 Review of Systems - Review of Systems Constitutional: reports: Weakness Eyes: reports: No Symptoms HENT: reports: No Symptoms Neck: reports: No Symptoms Cardiovascular: reports: No Symptoms Respiratory: reports: No Symptoms Gastrointestinal: reports: Nausea, Vomiting Genitourinary: reports: No Symptoms Musculoskeletal: reports: No Symptoms Integumentary: reports: No Symptoms Neurological: reports: No Symptoms Endocrine: reports: No Symptoms Hematology/Lymphatic: reports: No Symptoms Psychiatric: reports: No Symptoms Physical Exam Vital Signs: Vital Signs Temperature 98.1 F 05/29/19 11:00 Pulse Rate 95 H 05/29/19 11:00 Respiratory Rate 05/29/19 11:00 Blood Pressure 157/98 05/29/19 11:00 O2 Sat by Pulse Oximetry (%) 98 05/29/19 09:00 Constitutional: Yes: Mild Distress, Thin Eyes: Yes: Conjunctiva Clear HENT: Yes: Atraumatic, Normocephalic Neck: Yes: Supple, Trachea Midline Cardiovascular: Yes: Regular Rate and Rhythm Respiratory: Yes: Regular, CTA Bilaterally Gastrointestinal: Yes: Normal Bowel Sounds, Soft Musculoskeletal: Yes: WNL Extremities: Yes: WNL Neurological: Yes: Alert, Oriented Psychiatric: Yes: Alert, Oriented Labs: CBC, BMP 05/29/19 06:12 05/29/19 06:12 Imaging - Results Chest X-ray: Report Reviewed, Image Reviewed Cat Scan: Report Reviewed, Image Reviewed Ultrasound: Report Reviewed, Image Reviewed Assessment/Plan Problem List - Problems (1) Nausea & vomiting Code(s): R11.2 - NAUSEA WITH VOMITING, UNSPECIFIED Qualifiers: Vomiting type: unspecified Vomiting Intractability: intractable Qualified Code(s): R11.2 - Nausea with vomiting, unspecified (2) Abdominal pain Code(s): R10.9 - UNSPECIFIED ABDOMINAL PAIN (3) Diabetes Code(s): E11.9 - TYPE 2 DIABETES MELLITUS WITHOUT COMPLICATIONS (4) Diastolic CHF Code(s): I50.30 - UNSPECIFIED DIASTOLIC (CONGESTIVE) HEART FAILURE (5) Uncontrolled diabetes mellitus Code(s): E11.65 - TYPE 2 DIABETES MELLITUS WITH HYPERGLYCEMIA plan continue ceftriaxone await for urine results gi to see the patient hydration monitor vomiting awaitng for all work up
--- NOTE | 2019-05-29 12:33 | PN ---
Progress Note, Physician History of Present Illness: Pt seen and examined at bedside. He still complains of nausea. - Current Medication List Current Medications: Active Medications Carvedilol (Coreg -) 12.5 mg PO BID [facility] Last Admin: 05/29/19 09:19 Dose: 12.5 mg Heparin Sodium (Porcine) (Heparin -) 5,000 unit SQ BID [facility] Last Admin: 05/29/19 09:19 Dose: 5,000 unit Potassium Chloride 20 meq/ (Sodium Chloride) 1,010 mls @ 83 mls/hr IVPB ASDIR [facility] Last Admin: 05/28/19 21:44 Dose: 83 mls/hr Ceftriaxone Sodium 1 gm/ (Dextrose) 50 mls @ 100 mls/hr IVPB DAILY [facility]; Protocol Sodium Phosphate 20 mm/ (Dextrose) 256.6667 mls @ 62.5 mls/hr IVPB ONCE ONE Stop: 05/29/19 16:36 Insulin Aspart (Novolog Vial Sliding Scale -) 1 vial SQ ACHS [facility]; Protocol Last Admin: 05/29/19 06:07 Dose: Not Given Insulin Detemir (Levemir Vial) 12 units SQ AM [facility] Last Admin: 05/29/19 06:07 Dose: Not Given Morphine Sulfate (Morphine Sulfate) 2 mg IVPUSH Q4H PRN PRN Reason: PAIN LEVEL 6-10 Last Admin: 05/28/19 18:12 Dose: 2 mg Nifedipine (Procardia Xl -) 90 mg PO DAILY [facility] Last Admin: 05/29/19 09:19 Dose: 90 mg Ondansetron HCl (Zofran Injection) 4 mg IVPB Q4H PRN PRN Reason: NAUSEA AND/OR VOMITING Last Admin: 05/29/19 02:30 Dose: 4 mg Pantoprazole Sodium (Protonix Iv) 40 mg IVPUSH DAILY [facility] Last Admin: 05/29/19 09:19 Dose: 40 mg - Objective Vital Signs: Vital Signs Temperature 98.1 F 05/29/19 11:00 Pulse Rate 95 H 05/29/19 11:00 Respiratory Rate 05/29/19 11:00 Blood Pressure 157/98 05/29/19 11:00 O2 Sat by Pulse Oximetry (%) 98 05/29/19 09:00 Constitutional: Yes: Calm Eyes: Yes: Conjunctiva Clear HENT: Yes: Atraumatic Neck: Yes: Supple Cardiovascular: Yes: S1, S2 Respiratory: Yes: CTA Bilaterally Gastrointestinal: Yes: Normal Bowel Sounds, Soft Genitourinary: Yes: WNL Musculoskeletal: Yes: WNL Neurological: Yes: Oriented Psychiatric: Yes: Oriented Labs: CBC, BMP 05/29/19 06:12 05/29/19 06:12 Assessment/Plan Current Medications Generic Name Dose Route Start Last Admin Trade Name Freq PRN Reason Stop Dose Admin Carvedilol 12.5 mg 05/27/19 22:00 05/29/19 09:19 Coreg - PO 12.5 mg BID [facility] Administration Heparin Sodium (Porcine) 5,000 unit 05/27/19 22:00 05/29/19 09:19 Heparin - SQ 5,000 unit BID [facility] Administration Potassium Chloride 20 meq/ 1,010 mls @ 83 mls/hr 05/28/19 20:45 05/28/19 21: 44 Sodium Chloride IVPB 83 mls/hr ASDIR [facility] Administration Ceftriaxone Sodium 1 gm/ 50 mls @ 100 mls/hr 05/29/19 12:30 Dextrose IVPB DAILY [facility] Protocol Sodium Phosphate 20 mm/ 256.6667 mls @ 62.5 mls/hr 05/29/19 12:30 Dextrose IVPB 05/29/19 16:36 ONCE ONE Insulin Aspart 1 vial 05/29/19 07:00 05/29/19 06:07 Novolog Vial Sliding Scale - SQ Not Given ACHS [facility] Protocol Insulin Detemir 12 units 05/29/19 07:00 05/29/19 06:07 Levemir Vial SQ Not Given AM [facility] Morphine Sulfate 2 mg 05/28/19 17:38 05/28/19 18:12 Morphine Sulfate IVPUSH 2 mg Q4H PRN Administration PAIN LEVEL 6-10 Nifedipine 90 mg 05/28/19 10:00 05/29/19 09:19 Procardia Xl - PO 90 mg DAILY [facility] Administration Ondansetron HCl 4 mg 05/27/19 21:31 05/29/19 02:30 Zofran Injection IVPB 4 mg Q4H PRN Administration NAUSEA AND/OR VOMITING Pantoprazole Sodium 40 mg 05/28/19 10:00 05/29/19 09:19 Protonix Iv IVPUSH 40 mg DAILY [facility] Administration Laboratory Tests 05/28/19 21:30 Protein/Creatinin Ratio 5.6 Impression 1. vomiting 2. HTN 3. DM 4. anemia 5. bph 6. CKD 7. gastroparesis 8. hypokalemia 9. hypernatremia 10. hypomag Plan - cont hypotonic fluids - replace phos - monitor lytes - potassium improved - renal function at baseline - urology input appreciated
--- NOTE | 2019-05-29 13:27 | PN ---
Progress Note, Physician - Current Medication List Current Medications: Active Medications Carvedilol (Coreg -) 12.5 mg PO BID [facility] Last Admin: 05/29/19 09:19 Dose: 12.5 mg Heparin Sodium (Porcine) (Heparin -) 5,000 unit SQ BID [facility] Last Admin: 05/29/19 09:19 Dose: 5,000 unit Potassium Chloride 20 meq/ (Sodium Chloride) 1,010 mls @ 83 mls/hr IVPB ASDIR [facility] Last Admin: 05/28/19 21:44 Dose: 83 mls/hr Ceftriaxone Sodium 1 gm/ (Dextrose) 50 mls @ 100 mls/hr IVPB DAILY [facility]; Protocol Potassium Phosphate 20 mm/ (Dextrose) 256.6667 mls @ 42.778 mls/hr IVPB ONCE ONE Stop: 05/29/19 19:29 Insulin Aspart (Novolog Vial Sliding Scale -) 1 vial SQ ACHS [facility]; Protocol Last Admin: 05/29/19 06:07 Dose: Not Given Insulin Detemir (Levemir Vial) 12 units SQ AM [facility] Last Admin: 05/29/19 06:07 Dose: Not Given Morphine Sulfate (Morphine Sulfate) 2 mg IVPUSH Q4H PRN PRN Reason: PAIN LEVEL 6-10 Last Admin: 05/28/19 18:12 Dose: 2 mg Nifedipine (Procardia Xl -) 90 mg PO DAILY [facility] Last Admin: 05/29/19 09:19 Dose: 90 mg Ondansetron HCl (Zofran Injection) 4 mg IVPB Q4H PRN PRN Reason: NAUSEA AND/OR VOMITING Last Admin: 05/29/19 02:30 Dose: 4 mg Pantoprazole Sodium (Protonix Iv) 40 mg IVPUSH DAILY [facility] Last Admin: 05/29/19 09:19 Dose: 40 mg - Objective Vital Signs: Vital Signs Temperature 98.1 F 05/29/19 11:00 Pulse Rate 95 H 05/29/19 11:00 Respiratory Rate 20 05/29/19 11:00 Blood Pressure 157/98 05/29/19 11:00 O2 Sat by Pulse Oximetry (%) 98 05/29/19 09:00 Constitutional: Yes: No Distress HENT: Yes: Atraumatic Neck: Yes: Supple Cardiovascular: Yes: Regular Rate and Rhythm Respiratory: Yes: CTA Bilaterally Gastrointestinal: Yes: Normal Bowel Sounds Extremities: Yes: WNL Edema: No Neurological: Yes: Alert, Oriented Labs: CBC, BMP 05/29/19 06:12 05/29/19 06:12 Problem List - Problems (1) Nausea & vomiting Assessment/Plan: prn zofran npo as per gi Code(s): R11.2 - NAUSEA WITH VOMITING, UNSPECIFIED Qualifiers: Vomiting type: unspecified Vomiting Intractability: intractable Qualified Code(s): R11.2 - Nausea with vomiting, unspecified (2) Abdominal pain Code(s): R10.9 - UNSPECIFIED ABDOMINAL PAIN (3) Diabetes Assessment/Plan: insulin and bgms Code(s): E11.9 - TYPE 2 DIABETES MELLITUS WITHOUT COMPLICATIONS (4) Diastolic CHF Assessment/Plan: will get cardio on case Code(s): I50.30 - UNSPECIFIED DIASTOLIC (CONGESTIVE) HEART FAILURE (5) Uncontrolled diabetes mellitus Code(s): E11.65 - TYPE 2 DIABETES MELLITUS WITH HYPERGLYCEMIA (6) Type 1 diabetes mellitus with diabetic chronic kidney disease Assessment/Plan: renal on case Code(s): E10.22 - TYPE 1 DIABETES MELLITUS W DIABETIC CHRONIC KIDNEY DISEASE Qualifiers: Chronic kidney disease stage: stage 2 (mild) Qualified Code(s): E10.22 - Type 1 diabetes mellitus with diabetic chronic kidney disease; N18.2 - Chronic kidney disease, stage 2 (mild)
[2019-05-29] MEDS ORDERED: POTASSIUM PHOSPHATE 20 MM in DEXTROSE 5%-WATER - 250 ML IVPB ONE (13:30)
[2019-05-29] MEDS ORDERED: DEXTROSE 5%-WATER - 50 ML IVPB ONE (13:42)
[2019-05-29] MEDS ORDERED: cefTRIAXone SODIUM 1 GM VIAL ONE (13:42)
[2019-05-29] MEDS: CEFTRIAXONE 1 GM in DEXTROSE 5%-WATER - 50 ML IVPB SCH (13:55)
--- NOTE | 2019-05-29 14:26 | PN.GI ---
GI Progress Note Subjective: GI covering for Dr. Manuel Pt seen/examined at bedside, feeling slightly better, less nausea, no further vomiting. Continues to report mid to lower abdominal pain, only slightly improved. Denies fever/chills. Passing gas, no bm in 4-5 days per pt. - Objective Vital Signs: Vital Signs Temperature 98.1 F 05/29/19 11:00 Pulse Rate 95 H 05/29/19 11:00 Respiratory Rate 05/29/19 11:00 Blood Pressure 157/98 05/29/19 11:00 O2 Sat by Pulse Oximetry (%) 98 05/29/19 09:00 Constitutional: No Distress, Calm Cardiovascular: Yes: WNL, Regular Rate and Rhythm Respiratory: Yes: WNL, Regular, CTA Bilaterally ...Palpate: Yes: Other (Abd soft, tender on palpation in periumbilical and lower abdomen, no rebound, guarding or rigidity) Labs: CBC, BMP 05/29/19 06:12 05/29/19 06:12 Problem List - Problems (1) Nausea & vomiting Assessment/Plan: Possibly secondary to gastroparesis in setting of poorly controlled DM vs etiology. Currently improved, mild nausea, no further vomiting. CT imaging without evidence of obstruction. Recent EGD by Dr. Manuel revealing gastric erythema (path revealing gastritis). -Continue supportive measures, IVF -Could start clear liquid diet and advance gradually as tolerated pending surgery recommendations -PPI daily -Zofran prn -Cardiology followup -Continue to optimize glycemic control -Renal and urology following Code(s): R11.2 - NAUSEA WITH VOMITING, UNSPECIFIED Qualifiers: Vomiting type: unspecified Vomiting Intractability: intractable Qualified Code(s): R11.2 - Nausea with vomiting, unspecified (2) Abdominal pain Assessment/Plan: Still with mid to lower abdominal pain. CT revealing soft tissue stranding of unclear significance. Bladder US now revealing ~2cm lesion. -Abd US to further evaluate CT findings of soft tissue stranding/edema -Urology follow up for cystoscopy -Start miralax daily for constipation once tolerating po as may also be contributing to abdominal pain -Minimize narcotics -Surgery consult pending Code(s): R10.9 - UNSPECIFIED ABDOMINAL PAIN
--- NOTE | 2019-05-29 14:48 | CONSULT ---
- Consultation REQUESTING PROVIDER: Marco [place] CONSULT REQUEST: We have been asked to surgically evaluate this patient for recurrent abdominal pain PCP:Estrada Strickland HISTORY OF PRESENT ILLNESS: Recurrent abdominal pain after previous admission and w/u; he has IDDM and has had a recent GI w/u; pain is burning/epigastric; he offers no other hx. EGD has been done previously and reviewed. PMHx: IDDM/HTN/HLD PSHx: none Home Medications Medication Instructions Recorded Insulin Glargine,Hum.rec.anlog 30 units SQ HS 06/26/15 [Lantus Solostar PEN -] Atorvastatin Calcium 40 mg PO DAILY 05/02/19 Gabapentin 1 cap PO HS 05/02/19 Carvedilol [Coreg -] 12.5 mg PO BID #60 tablet 05/10/19 Lipase/Protease/Amylase [Creon Dr 1 cap PO TIDCM #90 capsule. 05/10/19 36,000 Units Capsule] Nifedipine ER [Procardia XL -] 90 mg PO DAILY #30 tab.er.24 05/10/19 Pantoprazole Sodium [Protonix] 40 mg PO DAILY #30 tablet. 05/10/19 Simethicone [Mylicon -] 80 mg PO QID PRN #120 tab.chew 05/10/19 Insulin (Novolog) [Novolog -] 3 unit SCJ TID #1 units 05/20/19 Allergies Allergy/AdvReac Type Severity Reaction Status Date / Time No Known Allergies Allergy Verified 05/27/19 12:44 REVIEW OF SYSTEMS: CONSTITUTIONAL: Absent: fever, chills, diaphoresis, generalized weakness, malaise, loss of appetite, weight change CARDIOVASCULAR: Absent: chest pain, syncope, palpitations, irregular heart rate, lightheadedness , peripheral edema RESPIRATORY: Absent: cough, shortness of breath, dyspnea with exertion, wheezing, stridor, hemoptysis GASTROINTESTINAL: Present: abdominal pain, Absent: abdominal distension, nausea, vomiting, diarrhea, constipation, melena, hematochezia GENITOURINARY: Absent: dysuria, frequency, urgency, hesitancy, hematuria, flank pain, genital pain MUSCULOSKELETAL: Absent: myalgia, arthralgia, joint swelling, back pain, neck pain SKIN: Absent: rash, itching, pallor HEMATOLOGIC/IMMUNOLOGIC: Absent: easy bleeding, easy bruising, lymphadenopathy NEUROLOGIC: Absent: headache, focal weakness, paresthesias, dizziness, unsteady gait, seizure, mental status changes, bladder or bowel incontinence PSYCHIATRIC: Absent: anxiety, depression, suicidal or homicidal ideation, hallucinations. PHYSICAL EXAM: GENERAL: Awake, alert, and fully oriented, in no acute distress. HEAD: Normal with no signs of trauma. EYES: PERRL, sclera anicteric, conjunctiva clear. NECK: Normal ROM, supple without lymphadenopathy, JVD, or masses. ABDOMEN: Soft, nontender, not distended, normoactive bowel sounds, no guarding, no rebound, no masses. No organomegaly. No hernias; no scars MUSCULOSKELETAL: Normal ROM at all joints. No bony deformities or tenderness. No CVA tenderness. UPPER EXTREMITIES: 2+ pulses, warm, well-perfused. No cyanosis. Cap refill <2 seconds. No peripheral edema. LOWER EXTREMITIES: 2+ pulses, warm, well-perfused. No calf tenderness. No peripheral edema. NEUROLOGICAL: Normal speech, gait not observed. PSYCH: Cooperative. Good eye contact. Appropriate mood and affect. SKIN: Warm, dry, normal turgor, no rashes or lesions noted. Vital Signs Temperature 98.1 F 05/29/19 11:00 Pulse Rate 95 H 05/29/19 11:00 Respiratory Rate 20 05/29/19 11:00 Blood Pressure 157/98 05/29/19 11:00 O2 Sat by Pulse Oximetry (%) 98 05/29/19 09:00 Lab Results WBC 10.9 K/mm3 (4.0-10.0) H 05/29/19 06:12 RBC 2.94 M/mm3 (4.00-5.60) L 05/29/19 06:12 Hgb 8.9 GM/dL (11.7-16.9) L 05/29/19 06:12 Hct 26.7 % (35.4-49) L 05/29/19 06:12 MCV 90.5 fl (80-96) 05/29/19 06:12 MCHC 33.5 g/dl (32.0-35.9) 05/29/19 06:12 RDW 13.8 % (11.9-15.9) 05/29/19 06:12 Plt Count 305 K/MM3 (134-434) 05/29/19 06:12 Sodium 146 mmol/L (136-145) H 05/29/19 06:12 Potassium 3.6 mmol/L (3.5-5.1) 05/29/19 06:12 Chloride 109 mmol/L (98-107) H 05/29/19 06:12 Carbon Dioxide 32 mmol/L (21-32) 05/29/19 06:12 Anion Gap 5 MMOL/L (8-16) L 05/29/19 06:12 BUN 14.9 mg/dL (7-18) 05/29/19 06:12 Creatinine 1.7 mg/dL (0.55-1.3) H 05/29/19 06:12 Random Glucose 147 mg/dL (74-106) H 05/29/19 06:12 Calcium 7.4 mg/dL (8.5-10.1) L 05/29/19 06:12 Imaging w/u reviewed and previous admissions reviewed IMP: No evidence of an acute surgical abdomen; c/o's possibly related to underlying DM; no surgical intervention is indicated at the present time. PLAN: Ongoing med/GI w/u. Larry Alejandra MD FACS
[2019-05-29] MEDS: SODIUM CHLORIDE 0.45% 1,000 ML with POTASSIUM CHLORIDE 20 MEQ IVPB SCH (21:21)
[2019-05-30] MEDS: INSULIN (LEVEMIR) 100 UNITS/ML UNITS SQ SCH (06:02)
[2019-05-30] MEDS: INSULIN SLIDING SCALE (NOVOLOG) 1 VIAL SQ SCH ×4 (06:03→21:51)
[2019-05-30 07:45] LABS: CHOLESTEROL 194 mg/dL (50-200); HDL CHOLESTEROL 45 mg/dL (40-60); LDL CHOLESTEROL (ONLY SJRH) 115 mg/dL (5-100); TRIGLYCERIDES 186 mg/dL (0-150)
[2019-05-30] MEDS: ONDANSETRON 4 MG/2 ML VIAL IVPB PRN ×2 (08:15→13:07)
[2019-05-30] MEDS ORDERED: cefTRIAXone SODIUM 1 GM VIAL ONE (08:24)
[2019-05-30] MEDS ORDERED: DEXTROSE 5%-WATER - 50 ML IVPB ONE (08:24)
[2019-05-30] MEDS: CEFTRIAXONE 1 GM in DEXTROSE 5%-WATER - 50 ML IVPB SCH (11:01)
[2019-05-30] MEDS: HEPARIN NA (PORCINE) 5,000 UNITS/ML 1ML VIAL SQ SCH ×2 (11:02→21:51)
[2019-05-30] MEDS: PANTOPRAZOLE SODIUM 40 MG VIAL IVPUSH SCH (11:02)
[2019-05-30] MEDS: CARVEDILOL 12.5 MG TABLET (FP) PO SCH ×2 (11:02→21:51)
[2019-05-30] MEDS: NIFEdipine E.R. 90 MG TABLET PO SCH (11:02)
--- NOTE | 2019-05-30 11:35 | PN ---
Progress Note, Physician History of Present Illness: The patient is a 58 year old black man with a significat PMH of IDDM, HTN, BPH, anemia and iwona lara tears and gastroporesis who presents to the ED for 3 days of nausea, vomitting and epigastric abdominal pain. Patient reports that he has presented multiple times to the ED for the same symtpoms He notes that he reportedly has had a recent colonoscopy and an endoscopy which were both negative. He notes he was discharged 7 days ago for the same symtpoms and was feeling well, but 3 days ago it restarted. He reports being unable to tolerate PO and has had no bowel moveemnts along with flatus in 3 days. He also endorses a headache, The patient denies chest pain, shortness of breath, headache and dizziness. Denies fever, chills, diarrhea. Denies dysuria, frequency, urgency and hematuria. His father had an [place] in his 80s. - Current Medication List Current Medications: Active Medications Carvedilol (Coreg -) 12.5 mg PO BID [facility] Last Admin: 05/30/19 11:02 Dose: 12.5 mg Heparin Sodium (Porcine) (Heparin -) 5,000 unit SQ BID [facility] Last Admin: 05/30/19 11:02 Dose: 5,000 unit Potassium Chloride 20 meq/ (Sodium Chloride) 1,010 mls @ 83 mls/hr IVPB ASDIR [facility] Last Admin: 05/29/19 21:21 Dose: 83 mls/hr Ceftriaxone Sodium 1 gm/ (Dextrose) 50 mls @ 100 mls/hr IVPB DAILY [facility]; Protocol Last Admin: 05/30/19 11:01 Dose: 100 mls/hr Insulin Aspart (Novolog Vial Sliding Scale -) 1 vial SQ ACHS [facility]; Protocol Last Admin: 05/30/19 11:16 Dose: Not Given Insulin Detemir (Levemir Vial) 12 units SQ AM [facility] Last Admin: 05/30/19 06:02 Dose: Not Given Morphine Sulfate (Morphine Sulfate) 2 mg IVPUSH Q4H PRN PRN Reason: PAIN LEVEL 6-10 Last Admin: 05/28/19 18:12 Dose: 2 mg Nifedipine (Procardia Xl -) 90 mg PO DAILY [facility] Last Admin: 05/30/19 11:02 Dose: 90 mg Ondansetron HCl (Zofran Injection) 4 mg IVPB Q4H PRN PRN Reason: NAUSEA AND/OR VOMITING Last Admin: 05/30/19 08:15 Dose: 4 mg Pantoprazole Sodium (Protonix Iv) 40 mg IVPUSH DAILY [facility] Last Admin: 05/30/19 11:02 Dose: 40 mg - Objective Vital Signs: Vital Signs Temperature 98.8 F 05/30/19 11:19 Pulse Rate 88 05/30/19 11:19 Respiratory Rate 18 05/30/19 11:19 Blood Pressure 154/88 05/30/19 11:19 O2 Sat by Pulse Oximetry (%) 99 05/30/19 09:50 Eyes: Yes: WNL, Conjunctiva Clear, EOM Intact HENT: Yes: WNL, Atraumatic, Normocephalic Neck: Yes: WNL, Supple, Trachea Midline Cardiovascular: Yes: WNL, Regular Rate and Rhythm Respiratory: Yes: WNL, Regular, CTA Bilaterally Gastrointestinal: Yes: Normal Bowel Sounds Genitourinary: Yes: WNL Musculoskeletal: Yes: WNL Extremities: Yes: WNL Edema: No Integumentary: Yes: WNL Neurological: Yes: WNL, Alert, Oriented ...Motor Strength: WNL Psychiatric: Yes: WNL Labs: CBC, BMP 05/29/19 06:12 05/29/19 06:12 Assessment/Plan - Problems (1) Nausea & vomiting Assessment/Plan: multiple similar episodes F/u with GI Code(s): R11.2 - NAUSEA WITH VOMITING, UNSPECIFIED Qualifiers: Vomiting type: unspecified Vomiting Intractability: intractable Qualified Code(s): R11.2 - Nausea with vomiting, unspecified (2) Abdominal pain Code(s): R10.9 - UNSPECIFIED ABDOMINAL PAIN (3) Anemia Code(s): D64.9 - ANEMIA, UNSPECIFIED (4) Diabetes Code(s): E11.9 - TYPE 2 DIABETES MELLITUS WITHOUT COMPLICATIONS (5) Diastolic CHF Code(s): I50.30 - UNSPECIFIED DIASTOLIC (CONGESTIVE) HEART FAILURE (6) Elevated troponin Assessment/Plan: hx chronic elevation of TNI. Will f/u this admission. Multiple CAD risks. If not done rcently, will do stress test when stable (may be done as outpatient) . Code(s): R79.89 - OTHER SPECIFIED ABNORMAL FINDINGS OF BLOOD CHEMISTRY (7) Hypoalbuminemia Code(s): E88.09 - OTH DISORDERS OF PLASMA-PROTEIN METABOLISM, NEC (8) Intractable vomiting Code(s): R11.10 - VOMITING, UNSPECIFIED
--- NOTE | 2019-05-30 13:29 | PN ---
Progress Note, Physician History of Present Illness: still with nausea says he is still throwing up - Current Medication List Current Medications: Active Medications Carvedilol (Coreg -) 12.5 mg PO BID [facility] Last Admin: 05/30/19 11:02 Dose: 12.5 mg Heparin Sodium (Porcine) (Heparin -) 5,000 unit SQ BID [facility] Last Admin: 05/30/19 11:02 Dose: 5,000 unit Potassium Chloride 20 meq/ (Sodium Chloride) 1,010 mls @ 83 mls/hr IVPB ASDIR [facility] Last Admin: 05/29/19 21:21 Dose: 83 mls/hr Ceftriaxone Sodium 1 gm/ (Dextrose) 50 mls @ 100 mls/hr IVPB DAILY [facility]; Protocol Last Admin: 05/30/19 11:01 Dose: 100 mls/hr Insulin Aspart (Novolog Vial Sliding Scale -) 1 vial SQ ACHS [facility]; Protocol Last Admin: 05/30/19 11:16 Dose: Not Given Insulin Detemir (Levemir Vial) 12 units SQ AM [facility] Last Admin: 05/30/19 06:02 Dose: Not Given Morphine Sulfate (Morphine Sulfate) 2 mg IVPUSH Q4H PRN PRN Reason: PAIN LEVEL 6-10 Last Admin: 05/28/19 18:12 Dose: 2 mg Nifedipine (Procardia Xl -) 90 mg PO DAILY [facility] Last Admin: 05/30/19 11:02 Dose: 90 mg Ondansetron HCl (Zofran Injection) 4 mg IVPB Q4H PRN PRN Reason: NAUSEA AND/OR VOMITING Last Admin: 05/30/19 13:07 Dose: 4 mg Pantoprazole Sodium (Protonix Iv) 40 mg IVPUSH DAILY [facility] Last Admin: 05/30/19 11:02 Dose: 40 mg - Objective Vital Signs: Vital Signs Temperature 98.8 F 05/30/19 11:19 Pulse Rate 88 05/30/19 11:19 Respiratory Rate 18 05/30/19 11:19 Blood Pressure 154/88 05/30/19 11:19 O2 Sat by Pulse Oximetry (%) 99 05/30/19 09:50 Constitutional: Yes: No Distress, Calm Cardiovascular: Yes: S1, S2 Respiratory: Yes: Regular, CTA Bilaterally Gastrointestinal: Yes: Normal Bowel Sounds, Soft Musculoskeletal: Yes: WNL Extremities: Yes: WNL Neurological: Yes: Alert, Oriented Psychiatric: Yes: Alert, Oriented Labs: CBC, BMP 05/29/19 06:12 05/29/19 06:12 Assessment/Plan Problem List - Problems (1) Nausea & vomiting Code(s): R11.2 - NAUSEA WITH VOMITING, UNSPECIFIED Qualifiers: Vomiting type: unspecified Vomiting Intractability: intractable Qualified Code(s): R11.2 - Nausea with vomiting, unspecified (2) Abdominal pain Code(s): R10.9 - UNSPECIFIED ABDOMINAL PAIN (3) Diabetes Code(s): E11.9 - TYPE 2 DIABETES MELLITUS WITHOUT COMPLICATIONS (4) Diastolic CHF Code(s): I50.30 - UNSPECIFIED DIASTOLIC (CONGESTIVE) HEART FAILURE (5) Uncontrolled diabetes mellitus Code(s): E11.65 - TYPE 2 DIABETES MELLITUS WITH HYPERGLYCEMIA plan continue to monitor rest as per the team
--- NOTE | 2019-05-30 14:42 | PN ---
Progress Note, Physician History of Present Illness: Pt seen and examined at bedside. He still has nausea. He denies shortness of breath. - Current Medication List Current Medications: Active Medications Carvedilol (Coreg -) 12.5 mg PO BID [facility] Last Admin: 05/30/19 11:02 Dose: 12.5 mg Heparin Sodium (Porcine) (Heparin -) 5,000 unit SQ BID [facility] Last Admin: 05/30/19 11:02 Dose: 5,000 unit Potassium Chloride 20 meq/ (Sodium Chloride) 1,010 mls @ 83 mls/hr IVPB ASDIR [facility] Last Admin: 05/29/19 21:21 Dose: 83 mls/hr Ceftriaxone Sodium 1 gm/ (Dextrose) 50 mls @ 100 mls/hr IVPB DAILY [facility]; Protocol Last Admin: 05/30/19 11:01 Dose: 100 mls/hr Insulin Aspart (Novolog Vial Sliding Scale -) 1 vial SQ ACHS [facility]; Protocol Last Admin: 05/30/19 11:16 Dose: Not Given Insulin Detemir (Levemir Vial) 12 units SQ AM [facility] Last Admin: 05/30/19 06:02 Dose: Not Given Morphine Sulfate (Morphine Sulfate) 2 mg IVPUSH Q4H PRN PRN Reason: PAIN LEVEL 6-10 Last Admin: 05/28/19 18:12 Dose: 2 mg Nifedipine (Procardia Xl -) 90 mg PO DAILY [facility] Last Admin: 05/30/19 11:02 Dose: 90 mg Ondansetron HCl (Zofran Injection) 4 mg IVPB Q4H PRN PRN Reason: NAUSEA AND/OR VOMITING Last Admin: 05/30/19 13:07 Dose: 4 mg Pantoprazole Sodium (Protonix Iv) 40 mg IVPUSH DAILY [facility] Last Admin: 05/30/19 11:02 Dose: 40 mg - Objective Vital Signs: Vital Signs Temperature 98.8 F 05/30/19 11:19 Pulse Rate 88 05/30/19 11:19 Respiratory Rate 18 05/30/19 11:19 Blood Pressure 154/88 05/30/19 11:19 O2 Sat by Pulse Oximetry (%) 99 05/30/19 09:50 Constitutional: Yes: Calm Eyes: Yes: Conjunctiva Clear HENT: Yes: Atraumatic Neck: Yes: Supple Cardiovascular: Yes: S1, S2 Respiratory: Yes: CTA Bilaterally Gastrointestinal: Yes: WNL Genitourinary: Yes: WNL Edema: Yes Edema: LLE: Trace, RLE: Trace Neurological: Yes: Oriented Psychiatric: Yes: Oriented Labs: CBC, BMP 05/29/19 06:12 05/29/19 06:12 Assessment/Plan Current Medications Generic Name Dose Route Start Last Admin Trade Name Freq PRN Reason Stop Dose Admin Carvedilol 12.5 mg 05/27/19 22:00 05/30/19 11:02 Coreg - PO 12.5 mg BID [facility] Administration Heparin Sodium (Porcine) 5,000 unit 05/27/19 22:00 05/30/19 11:02 Heparin - SQ 5,000 unit BID [facility] Administration Potassium Chloride 20 meq/ 1,010 mls @ 83 mls/hr 05/28/19 20:45 05/29/19 21: 21 Sodium Chloride IVPB 83 mls/hr ASDIR [facility] Administration Ceftriaxone Sodium 1 gm/ 50 mls @ 100 mls/hr 05/29/19 12:30 05/30/19 11:01 Dextrose IVPB 100 mls/hr DAILY [facility] Administration Protocol Insulin Aspart 1 vial 05/29/19 07:00 05/30/19 11:16 Novolog Vial Sliding Scale - SQ Not Given ACHS [facility] Protocol Insulin Detemir 12 units 05/29/19 07:00 05/30/19 06:02 Levemir Vial SQ Not Given AM [facility] Morphine Sulfate 2 mg 05/28/19 17:38 05/28/19 18:12 Morphine Sulfate IVPUSH 2 mg Q4H PRN Administration PAIN LEVEL 6-10 Nifedipine 90 mg 05/28/19 10:00 05/30/19 11:02 Procardia Xl - PO 90 mg DAILY [facility] Administration Ondansetron HCl 4 mg 05/27/19 21:31 05/30/19 13:07 Zofran Injection IVPB 4 mg Q4H PRN Administration NAUSEA AND/OR VOMITING Pantoprazole Sodium 40 mg 05/28/19 10:00 05/30/19 11:02 Protonix Iv IVPUSH 40 mg DAILY [facility] Administration Impression 1. vomiting 2. HTN 3. DM 4. anemia 5. bph 6. CKD 7. gastroparesis 8. hypokalemia 9. hypernatremia 10. hypomag Plan - change fluids to clinimix - GI follow up - pt unable to tolerate diet - check labs - repeat labs in am
--- NOTE | 2019-05-30 15:19 | PN ---
Progress Note, Physician - Current Medication List Current Medications: Active Medications Carvedilol (Coreg -) 12.5 mg PO BID [facility] Last Admin: 05/30/19 11:02 Dose: 12.5 mg Heparin Sodium (Porcine) (Heparin -) 5,000 unit SQ BID [facility] Last Admin: 05/30/19 11:02 Dose: 5,000 unit Ceftriaxone Sodium 1 gm/ (Dextrose) 50 mls @ 100 mls/hr IVPB DAILY [facility]; Protocol Last Admin: 05/30/19 11:01 Dose: 100 mls/hr Potassium Chloride 10 meq/ (Amino Acids) 1,005 mls @ 42 mls/hr IVPB Q24H [facility] Insulin Aspart (Novolog Vial Sliding Scale -) 1 vial SQ ACHS [facility]; Protocol Last Admin: 05/30/19 11:16 Dose: Not Given Insulin Detemir (Levemir Vial) 12 units SQ AM [facility] Last Admin: 05/30/19 06:02 Dose: Not Given Morphine Sulfate (Morphine Sulfate) 2 mg IVPUSH Q4H PRN PRN Reason: PAIN LEVEL 6-10 Last Admin: 05/28/19 18:12 Dose: 2 mg Nifedipine (Procardia Xl -) 90 mg PO DAILY [facility] Last Admin: 05/30/19 11:02 Dose: 90 mg Ondansetron HCl (Zofran Injection) 4 mg IVPB Q4H PRN PRN Reason: NAUSEA AND/OR VOMITING Last Admin: 05/30/19 13:07 Dose: 4 mg Pantoprazole Sodium (Protonix Iv) 40 mg IVPUSH DAILY [facility] Last Admin: 05/30/19 11:02 Dose: 40 mg - Objective Vital Signs: Vital Signs Temperature 98.8 F 05/30/19 11:19 Pulse Rate 88 05/30/19 11:19 Respiratory Rate 18 05/30/19 11:19 Blood Pressure 154/88 05/30/19 11:19 O2 Sat by Pulse Oximetry (%) 99 05/30/19 09:50 Constitutional: Yes: No Distress HENT: Yes: Atraumatic Neck: Yes: Supple Cardiovascular: Yes: Regular Rate and Rhythm Respiratory: Yes: CTA Bilaterally Gastrointestinal: Yes: Normal Bowel Sounds Edema: No Neurological: Yes: Alert, Oriented Labs: CBC, BMP 05/29/19 06:12 05/29/19 06:12 Problem List - Problems (1) Nausea & vomiting Assessment/Plan: prn zofran trial of clear liquids Code(s): R11.2 - NAUSEA WITH VOMITING, UNSPECIFIED Qualifiers: Vomiting type: unspecified Vomiting Intractability: intractable Qualified Code(s): R11.2 - Nausea with vomiting, unspecified (2) Abdominal pain Code(s): R10.9 - UNSPECIFIED ABDOMINAL PAIN (3) Diabetes Assessment/Plan: insulin and bgms Code(s): E11.9 - TYPE 2 DIABETES MELLITUS WITHOUT COMPLICATIONS (4) Diastolic CHF Assessment/Plan: on meds stable Code(s): I50.30 - UNSPECIFIED DIASTOLIC (CONGESTIVE) HEART FAILURE (5) Uncontrolled diabetes mellitus Code(s): E11.65 - TYPE 2 DIABETES MELLITUS WITH HYPERGLYCEMIA (6) Type 1 diabetes mellitus with diabetic chronic kidney disease Code(s): E10.22 - TYPE 1 DIABETES MELLITUS W DIABETIC CHRONIC KIDNEY DISEASE Qualifiers: Chronic kidney disease stage: stage 2 (mild) Qualified Code(s): E10.22 - Type 1 diabetes mellitus with diabetic chronic kidney disease; N18.2 - Chronic kidney disease, stage 2 (mild)
[2019-05-30] MEDS: POTASSIUM CHLORIDE 10 MEQ in AMINO ACIDS 4.25%/D5W 1,000 ML IVPB SCH (15:42)
[2019-05-30] MEDS ORDERED: PT OWN MED DRAWER 7, Y5N ONE ×2 (15:58→17:35)
[2019-05-30 16:40] LABS: BLOOD UREA NITROGEN 13.6 mg/dL (7-18); CALCIUM 7.5 mg/dL (8.5-10.1); CREATININE 1.8 mg/dL (0.55-1.3); POTASSIUM 4.2 mmol/L (3.5-5.1)
--- NOTE | 2019-05-30 19:35 | PN.GI ---
GI Progress Note Subjective: Abd US revealed slightly prominent CBD Patient states feeling a little better today Describes his pain as mid abdomen, non radiating, worse with meals. - Objective Vital Signs: Vital Signs Temperature 98.5 F 05/30/19 18:00 Pulse Rate 84 05/30/19 18:00 Respiratory Rate 20 05/30/19 18:00 Blood Pressure 160/97 05/30/19 18:00 O2 Sat by Pulse Oximetry (%) 99 05/30/19 09:50 Constitutional: Calm Eyes: No: Sclera Icterus Gastrointestinal Inspection: No: Distention ...Auscultate: Yes: Normoactive Bowel Sounds ...Palpate: Yes: Soft, Tenderness (TTP mid abdomen) ...Percussion: No: Tympanitic Edema: Yes Edema: LLE: 1+, RLE: 1+ Neurological: Yes: Alert Labs: CBC, BMP 05/29/19 06:12 05/30/19 15:40 Hepatic Panel Total Bilirubin 0.2 mg/dL (0.2-1) 05/29/19 06:12 AST 31 U/L (15-37) 05/29/19 06:12 ALT 24 U/L (13-61) 05/29/19 06:12 Alkaline Phosphatase 92 U/L (45-117) 05/29/19 06:12 Albumin 1.8 g/dl (3.4-5.0) L 05/29/19 06:12 Problem List - Problems (1) Abdominal pain Assessment/Plan: Mid non-radiating abdominal pain. Unclear etiology at this point with significant work-up to date Ordered repeat MRI/MRCP Diet as tolerated for now Doppler to evaluate celiac stenosis and can obtain vascular surgeon opinion regarding the stenosis noted to previous contrast CT scan study Code(s): R10.9 - UNSPECIFIED ABDOMINAL PAIN
[2019-05-31] MEDS: INSULIN SLIDING SCALE (NOVOLOG) 1 VIAL SQ SCH ×4 (06:32→22:29)
[2019-05-31] MEDS: INSULIN (LEVEMIR) 100 UNITS/ML UNITS SQ SCH (06:32)
--- NOTE | 2019-05-31 06:37 | PN ---
Progress Note, Physician Chief Complaint: Pt A&Ox3; remains distressed/depressed by GI disorder: nausea, abdominal pain, vomiting. History of Present Illness: The patient is a 58 year old black man with a significat PMH of IDDM, HTN, BPH, anemia and iwona lara tears and gastroporesis who presents to the ED for 3 days of nausea, vomitting and epigastric abdominal pain. Patient reports that he has presented multiple times to the ED for the same symtpoms He notes that he reportedly has had a recent colonoscopy and an endoscopy which were both negative. He notes he was discharged 7 days ago for the same symtpoms and was feeling well, but 3 days ago it restarted. He reports being unable to tolerate PO and has had no bowel moveemnts along with flatus in 3 days. He also endorses a headache, The patient denies chest pain, shortness of breath, headache and dizziness. Denies fever, chills, diarrhea. Denies dysuria, frequency, urgency and hematuria. His father had an [place] in his 80s. - Current Medication List Current Medications: Active Medications Carvedilol (Coreg -) 12.5 mg PO BID [facility] Last Admin: 05/30/19 21:51 Dose: 12.5 mg Heparin Sodium (Porcine) (Heparin -) 5,000 unit SQ BID [facility] Last Admin: 05/30/19 21:51 Dose: 5,000 unit Ceftriaxone Sodium 1 gm/ (Dextrose) 50 mls @ 100 mls/hr IVPB DAILY [facility]; Protocol Last Admin: 05/30/19 11:01 Dose: 100 mls/hr Potassium Chloride 10 meq/ (Amino Acids) 1,005 mls @ 42 mls/hr IVPB Q24H [facility] Last Admin: 05/30/19 15:42 Dose: 42 mls/hr Insulin Aspart (Novolog Vial Sliding Scale -) 1 vial SQ ACHS [facility]; Protocol Last Admin: 05/31/19 06:32 Dose: Not Given Insulin Detemir (Levemir Vial) 12 units SQ AM [facility] Last Admin: 05/31/19 06:32 Dose: Not Given Morphine Sulfate (Morphine Sulfate) 2 mg IVPUSH Q4H PRN PRN Reason: PAIN LEVEL 6-10 Last Admin: 05/28/19 18:12 Dose: 2 mg Nifedipine (Procardia Xl -) 90 mg PO DAILY [facility] Last Admin: 05/30/19 11:02 Dose: 90 mg Ondansetron HCl (Zofran Injection) 4 mg IVPB Q4H PRN PRN Reason: NAUSEA AND/OR VOMITING Last Admin: 05/30/19 13:07 Dose: 4 mg Pantoprazole Sodium (Protonix Iv) 40 mg IVPUSH DAILY [facility] Last Admin: 05/30/19 11:02 Dose: 40 mg - Objective Vital Signs: Vital Signs Temperature 98.8 F 05/31/19 06:00 Pulse Rate 85 05/31/19 06:00 Respiratory Rate 05/31/19 06:00 Blood Pressure 140/88 05/31/19 06:00 O2 Sat by Pulse Oximetry (%) 99 05/30/19 21:00 Constitutional: Yes: Anxious, Moderate Distress Eyes: Yes: WNL HENT: Yes: WNL Neck: Yes: WNL Labs: CBC, BMP 05/29/19 06:12 05/30/19 15:40 Problem List - Problems (1) Nausea & vomiting Assessment/Plan: multiple similar episodes continued nausea and vomiting, abdominal pain. F/u with GI On antibiotics. Code(s): R11.2 - NAUSEA WITH VOMITING, UNSPECIFIED Qualifiers: Vomiting type: unspecified Vomiting Intractability: intractable Qualified Code(s): R11.2 - Nausea with vomiting, unspecified (2) Anemia Code(s): D64.9 - ANEMIA, UNSPECIFIED (3) Diabetes Code(s): E11.9 - TYPE 2 DIABETES MELLITUS WITHOUT COMPLICATIONS (4) Diastolic CHF Code(s): I50.30 - UNSPECIFIED DIASTOLIC (CONGESTIVE) HEART FAILURE (5) Elevated troponin Assessment/Plan: hx chronic elevation of TNI. <0.02 on 05/27/2019. Multiple CAD risks. If not done recently, will do stress test when stable (may be done as outpatient ). Code(s): R79.89 - OTHER SPECIFIED ABNORMAL FINDINGS OF BLOOD CHEMISTRY (6) Hypoalbuminemia Code(s): E88.09 - OTH DISORDERS OF PLASMA-PROTEIN METABOLISM, NEC (7) HTN (hypertension) Assessment/Plan: On nifedipine and carvedilol. Add lisinopril (HTN; DM); f/u BUn/Cr, electrolytes, serial BP. Code(s): I10 - ESSENTIAL (PRIMARY) HYPERTENSION
[2019-05-31 08:06] LABS: ALBUMIN 1.7 g/dl (3.4-5.0); BILIRUBIN,TOTAL 0.5 mg/dL (0.2-1); CALCIUM 7.8 mg/dL (8.5-10.1); CREATININE 1.7 mg/dL (0.55-1.3); MAGNESIUM 1.8 mg/dL (1.8-2.4); POTASSIUM 3.3 mmol/L (3.5-5.1); TOT PROT 4.3 g/dl (6.4-8.2)
[2019-05-31] MEDS ORDERED: cefTRIAXone SODIUM 1 GM VIAL ONE (08:24)
[2019-05-31] MEDS ORDERED: DEXTROSE 5%-WATER - 50 ML IVPB ONE (08:25)
[2019-05-31] MEDS: ONDANSETRON 4 MG/2 ML VIAL IVPB PRN (08:49)
[2019-05-31] MEDS ORDERED: POTASSIUM CHLORIDE ORAL LIQUID 20 MEQ/15 ML PO ONE (10:00)
[2019-05-31] MEDS: PANTOPRAZOLE SODIUM 40 MG VIAL IVPUSH SCH (10:35)
[2019-05-31] MEDS: CARVEDILOL 12.5 MG TABLET (FP) PO SCH ×3 (10:35→22:29)
[2019-05-31] MEDS: CEFTRIAXONE 1 GM in DEXTROSE 5%-WATER - 50 ML IVPB SCH (10:35)
[2019-05-31] MEDS: LISINOPRIL 5 MG TABLET (FP) PO SCH ×2 (10:35→11:32)
[2019-05-31] MEDS: NIFEdipine E.R. 90 MG TABLET PO SCH ×2 (10:35→11:33)
[2019-05-31] MEDS: HEPARIN NA (PORCINE) 5,000 UNITS/ML 1ML VIAL SQ SCH ×2 (10:35→22:29)
--- NOTE | 2019-05-31 11:38 | PN ---
Progress Note, Physician History of Present Illness: feels a little better reepat imaging studies done able to keep liquids down for now - Current Medication List Current Medications: Active Medications Carvedilol (Coreg -) 12.5 mg PO BID [facility] Last Admin: 05/31/19 11:32 Dose: 12.5 mg Heparin Sodium (Porcine) (Heparin -) 5,000 unit SQ BID [facility] Last Admin: 05/31/19 10:35 Dose: Not Given Ceftriaxone Sodium 1 gm/ (Dextrose) 50 mls @ 100 mls/hr IVPB DAILY [facility]; Protocol Last Admin: 05/31/19 10:35 Dose: Not Given Potassium Chloride 10 meq/ (Amino Acids) 1,005 mls @ 42 mls/hr IVPB Q24H [facility] Last Admin: 05/30/19 15:42 Dose: 42 mls/hr Insulin Aspart (Novolog Vial Sliding Scale -) 1 vial SQ ACHS [facility]; Protocol Last Admin: 05/31/19 11:18 Dose: Not Given Insulin Detemir (Levemir Vial) 12 units SQ AM [facility] Last Admin: 05/31/19 06:32 Dose: Not Given Lisinopril (Prinivil) 2.5 mg PO DAILY [facility] Last Admin: 05/31/19 11:32 Dose: 2.5 mg Morphine Sulfate (Morphine Sulfate) 2 mg IVPUSH Q4H PRN PRN Reason: PAIN LEVEL 6-10 Last Admin: 05/28/19 18:12 Dose: 2 mg Nifedipine (Procardia Xl -) 90 mg PO DAILY [facility] Last Admin: 05/31/19 11:33 Dose: 90 mg Ondansetron HCl (Zofran Injection) 4 mg IVPB Q4H PRN PRN Reason: NAUSEA AND/OR VOMITING Last Admin: 05/31/19 08:49 Dose: 4 mg Pantoprazole Sodium (Protonix Iv) 40 mg IVPUSH DAILY [facility] Last Admin: 05/31/19 10:35 Dose: Not Given - Objective Vital Signs: Vital Signs Temperature 98.8 F 05/31/19 06:00 Pulse Rate 85 05/31/19 06:00 Respiratory Rate 20 05/31/19 06:00 Blood Pressure 140/88 05/31/19 06:00 O2 Sat by Pulse Oximetry (%) 99 05/30/19 21:00 Constitutional: Yes: Calm, Mild Distress, Thin Cardiovascular: Yes: S1, S2 Respiratory: Yes: Regular, CTA Bilaterally Gastrointestinal: Yes: Normal Bowel Sounds, Soft Musculoskeletal: Yes: WNL Extremities: Yes: WNL Neurological: Yes: Alert, Oriented Psychiatric: Yes: Alert, Oriented Labs: CBC, BMP 05/29/19 06:12 05/31/19 06:59 Assessment/Plan Problem List - Problems (1) Nausea & vomiting Code(s): R11.2 - NAUSEA WITH VOMITING, UNSPECIFIED Qualifiers: Vomiting type: unspecified Vomiting Intractability: intractable Qualified Code(s): R11.2 - Nausea with vomiting, unspecified (2) Abdominal pain Code(s): R10.9 - UNSPECIFIED ABDOMINAL PAIN (3) Diabetes Code(s): E11.9 - TYPE 2 DIABETES MELLITUS WITHOUT COMPLICATIONS (4) Diastolic CHF Code(s): I50.30 - UNSPECIFIED DIASTOLIC (CONGESTIVE) HEART FAILURE (5) Uncontrolled diabetes mellitus Code(s): E11.65 - TYPE 2 DIABETES MELLITUS WITH HYPERGLYCEMIA plan continue current mgmt hydration await for imaging studies result rest as per the team
[2019-05-31] MEDS: POTASSIUM CHLORIDE 10 MEQ in AMINO ACIDS 4.25%/D5W 1,000 ML IVPB SCH (14:44)
--- NOTE | 2019-05-31 16:13 | PN ---
Progress Note, Physician History of Present Illness: Pt seen and examined at bedside. He is awake and alert. He feels that the nasea is a little better. - Current Medication List Current Medications: Active Medications Carvedilol (Coreg -) 12.5 mg PO BID [facility] Last Admin: 05/31/19 11:32 Dose: 12.5 mg Heparin Sodium (Porcine) (Heparin -) 5,000 unit SQ BID [facility] Last Admin: 05/31/19 10:35 Dose: Not Given Insulin Aspart (Novolog Vial Sliding Scale -) 1 vial SQ ACHS [facility]; Protocol Last Admin: 05/31/19 11:18 Dose: Not Given Insulin Detemir (Levemir Vial) 12 units SQ AM [facility] Last Admin: 05/31/19 06:32 Dose: Not Given Lisinopril (Prinivil) 2.5 mg PO DAILY [facility] Last Admin: 05/31/19 11:32 Dose: 2.5 mg Morphine Sulfate (Morphine Sulfate) 2 mg IVPUSH Q4H PRN PRN Reason: PAIN LEVEL 6-10 Last Admin: 05/28/19 18:12 Dose: 2 mg Nifedipine (Procardia Xl -) 90 mg PO DAILY [facility] Last Admin: 05/31/19 11:33 Dose: 90 mg Ondansetron HCl (Zofran Injection) 4 mg IVPB Q4H PRN PRN Reason: NAUSEA AND/OR VOMITING Last Admin: 05/31/19 08:49 Dose: 4 mg Pantoprazole Sodium (Protonix Iv) 40 mg IVPUSH DAILY [facility] Last Admin: 05/31/19 10:35 Dose: Not Given - Objective Vital Signs: Vital Signs Temperature 98.8 F 05/31/19 06:00 Pulse Rate 85 05/31/19 06:00 Respiratory Rate 20 05/31/19 06:00 Blood Pressure 140/88 05/31/19 06:00 O2 Sat by Pulse Oximetry (%) 99 05/30/19 21:00 Constitutional: Yes: Calm Eyes: Yes: Conjunctiva Clear HENT: Yes: Atraumatic Neck: Yes: Supple Cardiovascular: Yes: S1, S2 Respiratory: Yes: CTA Bilaterally Gastrointestinal: Yes: Soft Genitourinary: Yes: WNL Edema: Yes Edema: LLE: Trace, RLE: Trace Neurological: Yes: Oriented Psychiatric: Yes: Oriented Labs: CBC, BMP 05/29/19 06:12 05/31/19 06:59 Assessment/Plan Current Medications Generic Name Dose Route Start Last Admin Trade Name Freq PRN Reason Stop Dose Admin Carvedilol 12.5 mg 05/27/19 22:00 05/31/19 11:32 Coreg - PO 12.5 mg BID [facility] Administration Heparin Sodium (Porcine) 5,000 unit 05/27/19 22:00 05/31/19 10:35 Heparin - SQ Not Given BID [facility] Insulin Aspart 1 vial 05/29/19 07:00 05/31/19 11:18 Novolog Vial Sliding Scale - SQ Not Given ACHS [facility] Protocol Insulin Detemir 12 units 05/29/19 07:00 05/31/19 06:32 Levemir Vial SQ Not Given AM [facility] Lisinopril 2.5 mg 05/31/19 10:00 05/31/19 11:32 Prinivil PO 2.5 mg DAILY [facility] Administration Morphine Sulfate 2 mg 05/28/19 17:38 05/28/19 18:12 Morphine Sulfate IVPUSH 2 mg Q4H PRN Administration PAIN LEVEL 6-10 Nifedipine 90 mg 05/28/19 10:00 05/31/19 11:33 Procardia Xl - PO 90 mg DAILY [facility] Administration Ondansetron HCl 4 mg 05/27/19 21:31 05/31/19 08:49 Zofran Injection IVPB 4 mg Q4H PRN Administration NAUSEA AND/OR VOMITING Pantoprazole Sodium 40 mg 05/28/19 10:00 05/31/19 10:35 Protonix Iv IVPUSH Not Given DAILY [facility] Impression 1. vomiting 2. HTN 3. DM 4. anemia 5. bph 6. CKD 7. gastroparesis 8. hypokalemia 9. hypernatremia 10. hypomag Plan - can d/c fluids - increase lisinopril to 5 mg - replace potassium - gi workup in progress - outpt renal follow up - will follow prn
--- NOTE | 2019-05-31 17:05 | PN ---
Progress Note, Physician Chief Complaint: Pt A&Ox3; sitting up at bedside; feels better; awaits MRCP results. Worries he may develop a stroke or heart failure if he does not take care of himself. He wants to try to eat "regular sold food" before he goes home "so that I don't have to come back to the hospital". History of Present Illness: The patient is a 58 year old black man with a significat PMH of IDDM, HTN, BPH, anemia and iwona lara tears and gastroporesis who presents to the ED for 3 days of nausea, vomitting and epigastric abdominal pain. Patient reports that he has presented multiple times to the ED for the same symtpoms He notes that he reportedly has had a recent colonoscopy and an endoscopy which were both negative. He notes he was discharged 7 days ago for the same symtpoms and was feeling well, but 3 days ago it restarted. He reports being unable to tolerate PO and has had no bowel moveemnts along with flatus in 3 days. He also endorses a headache, The patient denies chest pain, shortness of breath, headache and dizziness. Denies fever, chills, diarrhea. Denies dysuria, frequency, urgency and hematuria. His father had an NE in his 80s. - Current Medication List Current Medications: Active Medications Carvedilol (Coreg -) 12.5 mg PO BID [facility] Last Admin: 05/31/19 11:32 Dose: 12.5 mg Heparin Sodium (Porcine) (Heparin -) 5,000 unit SQ BID [facility] Last Admin: 05/31/19 10:35 Dose: Not Given Insulin Aspart (Novolog Vial Sliding Scale -) 1 vial SQ ACHS [facility]; Protocol Last Admin: 05/31/19 11:18 Dose: Not Given Insulin Detemir (Levemir Vial) 12 units SQ AM [facility] Last Admin: 05/31/19 06:32 Dose: Not Given Lisinopril (Prinivil) 2.5 mg PO DAILY [facility] Last Admin: 05/31/19 11:32 Dose: 2.5 mg Morphine Sulfate (Morphine Sulfate) 2 mg IVPUSH Q4H PRN PRN Reason: PAIN LEVEL 6-10 Last Admin: 05/28/19 18:12 Dose: 2 mg Nifedipine (Procardia Xl -) 90 mg PO DAILY [facility] Last Admin: 05/31/19 11:33 Dose: 90 mg Ondansetron HCl (Zofran Injection) 4 mg IVPB Q4H PRN PRN Reason: NAUSEA AND/OR VOMITING Last Admin: 05/31/19 08:49 Dose: 4 mg Pantoprazole Sodium (Protonix Iv) 40 mg IVPUSH DAILY [facility] Last Admin: 05/31/19 10:35 Dose: Not Given - Objective Vital Signs: Vital Signs Temperature 98.8 F 05/31/19 10:00 Pulse Rate 72 05/31/19 10:00 Respiratory Rate 05/31/19 10:00 Blood Pressure 140/78 05/31/19 10:00 O2 Sat by Pulse Oximetry (%) 99 05/31/19 10:00 Constitutional: Yes: No Distress, Anxious Eyes: Yes: WNL HENT: Yes: WNL Neck: Yes: WNL Cardiovascular: Yes: Regular Rate and Rhythm, S1, S2, S4 Respiratory: Yes: WNL Gastrointestinal: Yes: Soft ...Rectal Exam: Yes: Deferred Genitourinary: No: Anuria Breast(s): Yes: WNL Musculoskeletal: Yes: Muscle Weakness Extremities: Yes: WNL Edema: Yes Edema: LLE: 1+, RLE: 1+ Peripheral Pulses WNL: Yes Neurological: Yes: Alert, Oriented, Weakness Psychiatric: Yes: Alert, Oriented, Other (anxioius) Labs: CBC, BMP 05/29/19 06:12 05/31/19 06:59 Abnormal Lab Results 05/31/19 06:59 Potassium 3.3 L Anion Gap 6 L Creatinine 1.7 H Random Glucose 193 H Calcium 7.8 L Total Protein 4.3 L Albumin 1.7 L - ....Imaging MRI: Pending Other: Image Reviewed (tlemetry: NSR) Problem List - Problems (1) Nausea & vomiting Assessment/Plan: multiple similar episodes continued nausea and vomiting, abdominal pain. s/p MRCP: results pending. F/u with GI (sees Dr. Manuel). On antibiotics. Code(s): R11.2 - NAUSEA WITH VOMITING, UNSPECIFIED Qualifiers: Vomiting type: unspecified Vomiting Intractability: intractable Qualified Code(s): R11.2 - Nausea with vomiting, unspecified (2) Anemia Code(s): D64.9 - ANEMIA, UNSPECIFIED (3) Diabetes Code(s): E11.9 - TYPE 2 DIABETES MELLITUS WITHOUT COMPLICATIONS (4) Diastolic CHF Code(s): I50.30 - UNSPECIFIED DIASTOLIC (CONGESTIVE) HEART FAILURE (5) Elevated troponin Assessment/Plan: hx chronic elevation of TNI. <0.02 on 05/27/2019. Multiple CAD risks. If not done recently, will do stress test when stable (may be done as outpatient ). Code(s): R79.89 - OTHER SPECIFIED ABNORMAL FINDINGS OF BLOOD CHEMISTRY (6) Hypoalbuminemia Assessment/Plan: reaction to systemic/GI illness/poor nutrition; diastolic CHF. Code(s): E88.09 - OTH DISORDERS OF PLASMA-PROTEIN METABOLISM, NEC (7) HTN (hypertension) Assessment/Plan: On nifedipine and carvedilol. Added lisinopril (HTN; DM);.f/u BUn/Cr, electrolytes, serial BP. Code(s): I10 - ESSENTIAL (PRIMARY) HYPERTENSION (8) Hypokalemia Assessment/Plan: replete, and f/u all electrolytes Code(s): E87.6 - HYPOKALEMIA
--- NOTE | 2019-05-31 18:05 | PN.GI ---
GI Progress Note Subjective: GI NOte ( covering Dr Manuel): Has mild pain but wants to eat solids. I see no obvious CBD stones on his MRP but await an official reading. LFTs are unremarkable - Objective Vital Signs: Vital Signs Temperature 98.8 F 05/31/19 10:00 Pulse Rate 72 05/31/19 10:00 Respiratory Rate 20 05/31/19 10:00 Blood Pressure 140/78 05/31/19 10:00 O2 Sat by Pulse Oximetry (%) 99 05/31/19 10:00 Laboratory Tests 05/01/19 05/01/19 05/02/19 21:10 21:10 00:20 WBC 15.6 H Neutrophils % ABG pH ABG pCO2 at Pt Temp ABG Base Excess Total Bilirubin AST ALT Alkaline Phosphatase Creatine Kinase 1278 H 1186 H Creatine Kinase Index CK-MB (CK-2) Troponin I 05/02/19 05/03/19 05/03/19 08:25 06:00 06:00 WBC 19.6 H Neutrophils % 85.0 H ABG pH ABG pCO2 at Pt Temp ABG Base Excess Total Bilirubin AST ALT Alkaline Phosphatase Creatine Kinase 1675 H 2138 H Creatine Kinase Index 0.2 CK-MB (CK-2) 5.9 H Troponin I 0.10 H 05/03/19 05/27/19 05/29/19 15:00 13:00 06:12 WBC 17.9 H 10.9 H Neutrophils % ABG pH 7.41 ABG pCO2 at Pt Temp 44.2 ABG Base Excess 3.1 H Total Bilirubin AST ALT Alkaline Phosphatase Creatine Kinase Creatine Kinase Index CK-MB (CK-2) Troponin I 05/31/19 06:59 WBC Neutrophils % ABG pH ABG pCO2 at Pt Temp ABG Base Excess Total Bilirubin 0.5 AST 22 ALT 18 Alkaline Phosphatase 85 Creatine Kinase Creatine Kinase Index CK-MB (CK-2) Troponin I Constitutional: Calm ...Auscultate: Yes: Normoactive Bowel Sounds ...Palpate: Yes: Soft, Other (nontender) Labs: CBC, BMP 05/29/19 06:12 05/31/19 06:59 Assessment/Plan Impression: -- Upper abdominal pain with vomiting. Doubt biliary tract disease. If symptoms recur on solid diet will need gastric emptying study to exclude gastroparesis or perhaps a trial of Reglan Plan: -- Advance to solid diet -- If symptoms recur would pursue gastric emptying study or empiric trial of Reglan Dr Manuel will return 06/03. Dr. De Jesus is covering until then Problem List - Problems (1) Abdominal pain Code(s): R10.9 - UNSPECIFIED ABDOMINAL PAIN (2) HTN (hypertension) Code(s): I10 - ESSENTIAL (PRIMARY) HYPERTENSION (3) Type 1 diabetes mellitus with diabetic chronic kidney disease Code(s): E10.22 - TYPE 1 DIABETES MELLITUS W DIABETIC CHRONIC KIDNEY DISEASE Qualifiers: Chronic kidney disease stage: stage 2 (mild) Qualified Code(s): E10.22 - Type 1 diabetes mellitus with diabetic chronic kidney disease; N18.2 - Chronic kidney disease, stage 2 (mild) (4) Diastolic CHF Code(s): I50.30 - UNSPECIFIED DIASTOLIC (CONGESTIVE) HEART FAILURE
--- NOTE | 2019-05-31 18:40 | PN ---
Progress Note, Physician - Current Medication List Current Medications: Active Medications Carvedilol (Coreg -) 12.5 mg PO BID [facility] Last Admin: 05/31/19 11:32 Dose: 12.5 mg Heparin Sodium (Porcine) (Heparin -) 5,000 unit SQ BID [facility] Last Admin: 05/31/19 10:35 Dose: Not Given Insulin Aspart (Novolog Vial Sliding Scale -) 1 vial SQ ACHS [facility]; Protocol Last Admin: 05/31/19 17:33 Dose: 4 units Insulin Detemir (Levemir Vial) 12 units SQ AM [facility] Last Admin: 05/31/19 06:32 Dose: Not Given Lisinopril (Prinivil) 2.5 mg PO DAILY [facility] Last Admin: 05/31/19 11:32 Dose: 2.5 mg Nifedipine (Procardia Xl -) 90 mg PO DAILY [facility] Last Admin: 05/31/19 11:33 Dose: 90 mg Ondansetron HCl (Zofran Injection) 4 mg IVPB Q4H PRN PRN Reason: NAUSEA AND/OR VOMITING Last Admin: 05/31/19 08:49 Dose: 4 mg Pantoprazole Sodium (Protonix Iv) 40 mg IVPUSH DAILY [facility] Last Admin: 05/31/19 10:35 Dose: Not Given - Objective Vital Signs: Vital Signs Temperature 98.8 F 05/31/19 10:00 Pulse Rate 72 05/31/19 10:00 Respiratory Rate 20 05/31/19 10:00 Blood Pressure 140/78 05/31/19 10:00 O2 Sat by Pulse Oximetry (%) 99 05/31/19 10:00 Constitutional: Yes: No Distress HENT: Yes: Atraumatic Neck: Yes: Supple Cardiovascular: Yes: Regular Rate and Rhythm Respiratory: Yes: CTA Bilaterally Gastrointestinal: Yes: Normal Bowel Sounds Extremities: Yes: WNL Neurological: Yes: Alert, Oriented Labs: CBC, BMP 05/29/19 06:12 05/31/19 06:59 Problem List - Problems (1) Nausea & vomiting Assessment/Plan: prn zofran trial of regular diet Code(s): R11.2 - NAUSEA WITH VOMITING, UNSPECIFIED Qualifiers: Vomiting type: unspecified Vomiting Intractability: intractable Qualified Code(s): R11.2 - Nausea with vomiting, unspecified (2) Abdominal pain Code(s): R10.9 - UNSPECIFIED ABDOMINAL PAIN (3) Diabetes Assessment/Plan: insulin and bgms Code(s): E11.9 - TYPE 2 DIABETES MELLITUS WITHOUT COMPLICATIONS (4) Diastolic CHF Assessment/Plan: on meds stable Code(s): I50.30 - UNSPECIFIED DIASTOLIC (CONGESTIVE) HEART FAILURE (5) Uncontrolled diabetes mellitus Code(s): E11.65 - TYPE 2 DIABETES MELLITUS WITH HYPERGLYCEMIA (6) Type 1 diabetes mellitus with diabetic chronic kidney disease Code(s): E10.22 - TYPE 1 DIABETES MELLITUS W DIABETIC CHRONIC KIDNEY DISEASE Qualifiers: Chronic kidney disease stage: stage 2 (mild) Qualified Code(s): E10.22 - Type 1 diabetes mellitus with diabetic chronic kidney disease; N18.2 - Chronic kidney disease, stage 2 (mild)
[2019-06-01] MEDS: ONDANSETRON 4 MG/2 ML VIAL IVPB PRN ×2 (07:09→14:45)
[2019-06-01] MEDS: INSULIN (LEVEMIR) 100 UNITS/ML UNITS SQ SCH (07:18)
[2019-06-01] MEDS: INSULIN SLIDING SCALE (NOVOLOG) 1 VIAL SQ SCH ×4 (07:20→21:33)
--- NOTE | 2019-06-01 10:27 | PN ---
Progress Note, Physician History of Present Illness: The patient is a 58 year old black man with a significat PMH of IDDM, HTN, BPH, anemia and iwona lara tears and gastroporesis who presents to the ED for 3 days of nausea, vomitting and epigastric abdominal pain. Patient reports that he has presented multiple times to the ED for the same symtpoms He notes that he reportedly has had a recent colonoscopy and an endoscopy which were both negative. He notes he was discharged 7 days ago for the same symtpoms and was feeling well, but 3 days ago it restarted. He reports being unable to tolerate PO and has had no bowel moveemnts along with flatus in 3 days. He also endorses a headache, The patient denies chest pain, shortness of breath, headache and dizziness. Denies fever, chills, diarrhea. Denies dysuria, frequency, urgency and hematuria. His father had an MA in his 80s. - Current Medication List Current Medications: Active Medications Carvedilol (Coreg -) 12.5 mg PO BID [facility] Last Admin: 05/31/19 22:29 Dose: Not Given Heparin Sodium (Porcine) (Heparin -) 5,000 unit SQ BID [facility] Last Admin: 05/31/19 22:29 Dose: 5,000 unit Insulin Aspart (Novolog Vial Sliding Scale -) 1 vial SQ [facility]; Protocol Last Admin: 06/01/19 07:20 Dose: 3 units Insulin Detemir (Levemir Vial) 12 units SQ AM [facility] Last Admin: 06/01/19 07:18 Dose: 12 unit Lisinopril (Prinivil) 2.5 mg PO DAILY [facility] Last Admin: 05/31/19 11:32 Dose: 2.5 mg Nifedipine (Procardia Xl -) 90 mg PO DAILY [facility] Last Admin: 05/31/19 11:33 Dose: 90 mg Ondansetron HCl (Zofran Injection) 4 mg IVPB Q4H PRN PRN Reason: NAUSEA AND/OR VOMITING Last Admin: 06/01/19 07:09 Dose: 4 mg Pantoprazole Sodium (Protonix Iv) 40 mg IVPUSH DAILY [facility] Last Admin: 05/31/19 10:35 Dose: Not Given - Objective Vital Signs: Vital Signs Temperature 98.8 F 06/01/19 06:00 Pulse Rate 70 06/01/19 06:00 Respiratory Rate 18 06/01/19 06:00 Blood Pressure 110/66 06/01/19 06:00 O2 Sat by Pulse Oximetry (%) 100 05/31/19 21:00 Eyes: Yes: WNL, Conjunctiva Clear, EOM Intact HENT: Yes: WNL, Atraumatic, Normocephalic Neck: Yes: WNL, Supple, Trachea Midline Cardiovascular: Yes: WNL, Regular Rate and Rhythm Respiratory: Yes: WNL, Regular, CTA Bilaterally Gastrointestinal: Yes: WNL, Normal Bowel Sounds Genitourinary: Yes: WNL Musculoskeletal: Yes: WNL Extremities: Yes: WNL Edema: Yes Integumentary: Yes: WNL Neurological: Yes: WNL, Alert, Oriented ...Motor Strength: WNL Psychiatric: Yes: WNL Labs: CBC, BMP 05/29/19 06:12 05/31/19 06:59 Assessment/Plan - Problems (1) Nausea & vomiting Assessment/Plan: multiple similar episodes continued nausea and vomiting, abdominal pain. s/p MRCP: results pending. F/u with GI (sees Dr. Manuel). On antibiotics. Code(s): R11.2 - NAUSEA WITH VOMITING, UNSPECIFIED Qualifiers: Vomiting type: unspecified Vomiting Intractability: intractable Qualified Code(s): R11.2 - Nausea with vomiting, unspecified (2) Anemia Code(s): D64.9 - ANEMIA, UNSPECIFIED (3) Diabetes Code(s): E11.9 - TYPE 2 DIABETES MELLITUS WITHOUT COMPLICATIONS (4) Diastolic CHF Code(s): I50.30 - UNSPECIFIED DIASTOLIC (CONGESTIVE) HEART FAILURE (5) Elevated troponin Assessment/Plan: hx chronic elevation of TNI. <0.02 on 05/27/2019. Multiple CAD risks. If not done recently, will do stress test when stable (may be done as outpatient ). Code(s): R79.89 - OTHER SPECIFIED ABNORMAL FINDINGS OF BLOOD CHEMISTRY (6) Hypoalbuminemia Assessment/Plan: reaction to systemic/GI illness/poor nutrition; diastolic CHF. Code(s): E88.09 - OTH DISORDERS OF PLASMA-PROTEIN METABOLISM, NEC (7) HTN (hypertension) Assessment/Plan: On nifedipine and carvedilol. Added lisinopril (HTN; DM);.f/u BUn/Cr, electrolytes, serial BP. Code(s): I10 - ESSENTIAL (PRIMARY) HYPERTENSION (8) Hypokalemia Assessment/Plan: replete, and f/u all electrolytes Code(s): E87.6 - HYPOKALEMIA
[2019-06-01] MEDS: PANTOPRAZOLE SODIUM 40 MG VIAL IVPUSH SCH ×3 (11:09→14:45)
[2019-06-01] MEDS: HEPARIN NA (PORCINE) 5,000 UNITS/ML 1ML VIAL SQ SCH ×2 (11:11→21:32)
[2019-06-01] MEDS: CARVEDILOL 12.5 MG TABLET (FP) PO SCH ×2 (11:11→21:32)
[2019-06-01] MEDS: LISINOPRIL 5 MG TABLET (FP) PO SCH (11:13)
[2019-06-01] MEDS: NIFEdipine E.R. 90 MG TABLET PO SCH (11:13)
--- NOTE | 2019-06-01 12:57 | DS ---
Physical Examination Vital Signs: Vital Signs Temperature 98 F 06/01/19 11:06 Pulse Rate 82 06/01/19 11:06 Respiratory Rate 20 06/01/19 11:06 Blood Pressure 111/61 06/01/19 11:06 O2 Sat by Pulse Oximetry (%) 100 05/31/19 21:00 Labs: CBC, BMP 05/29/19 06:12 05/31/19 06:59 Discharge Summary Problems reviewed: Yes Reason For Visit: PERIUMBILICAL ABD PAIN,NAUSEA AND VOMITING Current Active Problems Abdominal pain (Acute) HTN (hypertension) (Acute) Nausea & vomiting (Acute) Type 1 diabetes mellitus with diabetic chronic kidney disease (Acute) Condition: Stable - Instructions Diet, Activity, Other Instructions: see dr luis for further care Referrals: Delmis Mane [Primary Care Provider] - Noah Mariscal MD [Staff Physician] - David Luis MD [Staff Physician] - - Home Medications Comprehensive Discharge Medication List: Ambulatory Orders Insulin Glargine,Hum.rec.anlog [Lantus Solostar PEN -] 30 units SQ HS 06/26/15 Atorvastatin Calcium 40 mg PO DAILY 05/02/19 Gabapentin 1 cap PO HS 05/02/19 Carvedilol [Coreg -] 12.5 mg PO BID #60 tablet 05/10/19 Lipase/Protease/Amylase [Nena Hodge 36,000 Units Capsule] 1 cap PO TIDCM #90 capsule. 05/10/19 Nifedipine ER [Procardia XL -] 90 mg PO DAILY #30 tab.er.24 05/10/19 Pantoprazole Sodium [Protonix] 40 mg PO DAILY #30 tablet. 05/10/19 Simethicone [Mylicon -] 80 mg PO QID PRN #120 tab.chew 05/10/19 Insulin (Novolog) [Novolog -] 3 unit SCJ TID #1 units 05/20/19
--- NOTE | 2019-06-01 13:36 | PN ---
Progress Note, Physician History of Present Illness: Pt states he had 1 episode of vomiting after breakfast this morning. Reports intermittent mid abd pain. Currently without nausea. Remains afebrile. Abd MRI results pending. - Current Medication List Current Medications: Active Medications Carvedilol (Coreg -) 12.5 mg PO BID [facility] Last Admin: 06/01/19 11:11 Dose: 12.5 mg Heparin Sodium (Porcine) (Heparin -) 5,000 unit SQ BID [facility] Last Admin: 06/01/19 11:11 Dose: 5,000 unit Insulin Aspart (Novolog Vial Sliding Scale -) 1 vial SQ ACHS [facility]; Protocol Last Admin: 06/01/19 12:14 Dose: Not Given Insulin Detemir (Levemir Vial) 12 units SQ AM [facility] Last Admin: 06/01/19 07:18 Dose: 12 unit Lisinopril (Prinivil) 2.5 mg PO DAILY [facility] Last Admin: 06/01/19 11:13 Dose: Not Given Nifedipine (Procardia Xl -) 90 mg PO DAILY [facility] Last Admin: 06/01/19 11:13 Dose: Not Given Ondansetron HCl (Zofran Injection) 4 mg IVPB Q4H PRN PRN Reason: NAUSEA AND/OR VOMITING Last Admin: 06/01/19 07:09 Dose: 4 mg Pantoprazole Sodium (Protonix Iv) 40 mg IVPUSH DAILY [facility] Last Admin: 06/01/19 11:19 Dose: Not Given - Objective Vital Signs: Vital Signs Temperature 98 F 06/01/19 11:06 Pulse Rate 82 06/01/19 11:06 Respiratory Rate 20 06/01/19 11:06 Blood Pressure 111/61 06/01/19 11:06 O2 Sat by Pulse Oximetry (%) 100 05/31/19 21:00 Constitutional: Yes: No Distress, Calm Cardiovascular: Yes: Regular Rate and Rhythm Respiratory: Yes: Regular Gastrointestinal: Yes: Normal Bowel Sounds, Soft, Tenderness (mid/upper tenderness with deep palpation, no guarding) Genitourinary: Yes: WNL Musculoskeletal: Yes: WNL Edema: LLE: 1+, RLE: 1+ Integumentary: Yes: WNL Neurological: Yes: Alert, Oriented Labs: CBC, BMP 05/29/19 06:12 05/31/19 06:59 Microbiology 05/27/19 19:00 Urine - Urine Clean Catch Urine Culture - Final - ....Imaging Ultrasound: Report Reviewed MRI: Pending Problem List - Problems (1) Abdominal pain Code(s): R10.9 - UNSPECIFIED ABDOMINAL PAIN (2) HTN (hypertension) Code(s): I10 - ESSENTIAL (PRIMARY) HYPERTENSION (3) Nausea & vomiting Code(s): R11.2 - NAUSEA WITH VOMITING, UNSPECIFIED Qualifiers: Vomiting type: unspecified Vomiting Intractability: intractable Qualified Code(s): R11.2 - Nausea with vomiting, unspecified (4) Type 1 diabetes mellitus with diabetic chronic kidney disease Code(s): E10.22 - TYPE 1 DIABETES MELLITUS W DIABETIC CHRONIC KIDNEY DISEASE Qualifiers: Chronic kidney disease stage: stage 2 (mild) Qualified Code(s): E10.22 - Type 1 diabetes mellitus with diabetic chronic kidney disease; N18.2 - Chronic kidney disease, stage 2 (mild) (5) Anemia Code(s): D64.9 - ANEMIA, UNSPECIFIED (6) Renal dysfunction Code(s): N28.9 - DISORDER OF KIDNEY AND URETER, UNSPECIFIED Assessment/Plan Abd pain nausea/vomiting Uncontrolled DM CKD anemia Gastroparesis HTN -- pt reports episode of vomiting this morning, still with intermittent abd pain -- wbc trended down to normal, remains afebrile -- f/u MRI -- GI following -- monitor off antibiotics for now
--- NOTE | 2019-06-01 17:09 | PN ---
Progress Note (short form) - Note Progress Note: For Dr. Manuel, who resumes care Saturday 06/03: Discussed MRI result with Dr. Reyna. He was unable to dictate the report into [employer] due to technical difficulties. He saw improved edema with thickened small bowel loops, improved from prior study. He felt this reflected enteritis but could not exclude pancreatitis. No other abnormalities. MRCP was non diagnostic but the duct was not dilated. Given the episodic nature of his pain complaints and persistent abnormality seen on imaging, ? if that small bowel finding reflects an area of transient internal small bowel herniation, ? IBD, ? segmental area of ischemia. Consider surgical consult. If continued episodes of pain, ? exploratory laparoscopy to evaluate small bowel loops further. Problem List - Problems (1) Abdominal pain Code(s): R10.9 - UNSPECIFIED ABDOMINAL PAIN
--- NOTE | 2019-06-01 20:12 | PN ---
Progress Note, Physician - Current Medication List Current Medications: Active Medications Carvedilol (Coreg -) 12.5 mg PO BID [facility] Last Admin: 06/01/19 11:11 Dose: 12.5 mg Heparin Sodium (Porcine) (Heparin -) 5,000 unit SQ BID [facility] Last Admin: 06/01/19 11:11 Dose: 5,000 unit Insulin Aspart (Novolog Vial Sliding Scale -) 1 vial SQ ACHS [facility]; Protocol Last Admin: 06/01/19 17:50 Dose: 3 units Insulin Detemir (Levemir Vial) 12 units SQ AM [facility] Last Admin: 06/01/19 07:18 Dose: 12 unit Lisinopril (Prinivil) 2.5 mg PO DAILY [facility] Last Admin: 06/01/19 11:13 Dose: Not Given Nifedipine (Procardia Xl -) 90 mg PO DAILY [facility] Last Admin: 06/01/19 11:13 Dose: Not Given Ondansetron HCl (Zofran Injection) 4 mg IVPB Q4H PRN PRN Reason: NAUSEA AND/OR VOMITING Last Admin: 06/01/19 14:45 Dose: 4 mg Pantoprazole Sodium (Protonix Iv) 40 mg IVPUSH DAILY [facility] Last Admin: 06/01/19 14:45 Dose: 40 mg - Objective Vital Signs: Vital Signs Temperature 97.5 F L 06/01/19 15:00 Pulse Rate 69 06/01/19 15:00 Respiratory Rate 20 06/01/19 15:00 Blood Pressure 77/47 L 06/01/19 15:00 O2 Sat by Pulse Oximetry (%) 100 05/31/19 21:00 Constitutional: Yes: No Distress HENT: Yes: Atraumatic Neck: Yes: Supple Cardiovascular: Yes: Regular Rate and Rhythm Respiratory: Yes: CTA Bilaterally Extremities: Yes: WNL Neurological: Yes: Alert, Oriented Labs: CBC, BMP 05/29/19 06:12 05/31/19 06:59 Problem List - Problems (1) Nausea & vomiting Assessment/Plan: prn zofran tolerating solids said he threw up Code(s): R11.2 - NAUSEA WITH VOMITING, UNSPECIFIED Qualifiers: Vomiting type: unspecified Vomiting Intractability: intractable Qualified Code(s): R11.2 - Nausea with vomiting, unspecified (2) Abdominal pain Code(s): R10.9 - UNSPECIFIED ABDOMINAL PAIN (3) Diabetes Assessment/Plan: insulin and bgms Code(s): E11.9 - TYPE 2 DIABETES MELLITUS WITHOUT COMPLICATIONS (4) Diastolic CHF Assessment/Plan: on meds stable Code(s): I50.30 - UNSPECIFIED DIASTOLIC (CONGESTIVE) HEART FAILURE (5) Uncontrolled diabetes mellitus Code(s): E11.65 - TYPE 2 DIABETES MELLITUS WITH HYPERGLYCEMIA (6) Type 1 diabetes mellitus with diabetic chronic kidney disease Code(s): E10.22 - TYPE 1 DIABETES MELLITUS W DIABETIC CHRONIC KIDNEY DISEASE Qualifiers: Chronic kidney disease stage: stage 2 (mild) Qualified Code(s): E10.22 - Type 1 diabetes mellitus with diabetic chronic kidney disease; N18.2 - Chronic kidney disease, stage 2 (mild)
[2019-06-02] MEDS: INSULIN SLIDING SCALE (NOVOLOG) 1 VIAL SQ SCH ×4 (06:32→21:36)
[2019-06-02] MEDS: INSULIN (LEVEMIR) 100 UNITS/ML UNITS SQ SCH (06:32)
[2019-06-02] MEDS: ONDANSETRON 4 MG/2 ML VIAL IVPB PRN (08:08)
--- NOTE | 2019-06-02 10:06 | PN ---
Progress Note, Physician History of Present Illness: The patient is a 58 year old black man with a significat PMH of IDDM, HTN, BPH, anemia and iwona lara tears and gastroporesis who presents to the ED for 3 days of nausea, vomitting and epigastric abdominal pain. Patient reports that he has presented multiple times to the ED for the same symtpoms He notes that he reportedly has had a recent colonoscopy and an endoscopy which were both negative. He notes he was discharged 7 days ago for the same symtpoms and was feeling well, but 3 days ago it restarted. He reports being unable to tolerate PO and has had no bowel moveemnts along with flatus in 3 days. He also endorses a headache, The patient denies chest pain, shortness of breath, headache and dizziness. Denies fever, chills, diarrhea. Denies dysuria, frequency, urgency and hematuria. His father had an NH in his 80s. - Current Medication List Current Medications: Active Medications Carvedilol (Coreg -) 12.5 mg PO BID [facility] Last Admin: 06/01/19 21:32 Dose: Not Given Heparin Sodium (Porcine) (Heparin -) 5,000 unit SQ BID [facility] Last Admin: 06/01/19 21:32 Dose: 5,000 unit Insulin Aspart (Novolog Vial Sliding Scale -) 1 vial SQ [facility]; Protocol Last Admin: 06/02/19 06:32 Dose: Not Given Insulin Detemir (Levemir Vial) 12 units SQ AM [facility] Last Admin: 06/02/19 06:32 Dose: 12 unit Lisinopril (Prinivil) 2.5 mg PO DAILY [facility] Last Admin: 06/01/19 11:13 Dose: Not Given Nifedipine (Procardia Xl -) 90 mg PO DAILY [facility] Last Admin: 06/01/19 11:13 Dose: Not Given Ondansetron HCl (Zofran Injection) 4 mg IVPB Q4H PRN PRN Reason: NAUSEA AND/OR VOMITING Last Admin: 06/02/19 08:08 Dose: 4 mg Pantoprazole Sodium (Protonix Iv) 40 mg IVPUSH DAILY [facility] Last Admin: 06/01/19 14:45 Dose: 40 mg - Objective Vital Signs: Vital Signs Temperature 98.6 F 06/02/19 05:00 Pulse Rate 89 06/02/19 05:00 Respiratory Rate 20 06/02/19 05:00 Blood Pressure 150/89 06/02/19 05:00 O2 Sat by Pulse Oximetry (%) 99 06/01/19 21:00 Eyes: Yes: WNL, Conjunctiva Clear, EOM Intact HENT: Yes: WNL, Atraumatic, Normocephalic Neck: Yes: WNL, Supple, Trachea Midline Cardiovascular: Yes: WNL, Regular Rate and Rhythm Respiratory: Yes: WNL, Regular, CTA Bilaterally Gastrointestinal: Yes: WNL, Normal Bowel Sounds Genitourinary: Yes: WNL Musculoskeletal: Yes: WNL Extremities: Yes: WNL Edema: Yes Integumentary: Yes: WNL Neurological: Yes: WNL, Alert, Oriented ...Motor Strength: WNL Psychiatric: Yes: WNL Labs: CBC, BMP 05/29/19 06:12 05/31/19 06:59 Assessment/Plan - Problems (1) Nausea & vomiting Assessment/Plan: multiple similar episodes continued nausea and vomiting, abdominal pain. s/p MRCP: results pending. F/u with GI (sees Dr. Manuel). On antibiotics. Code(s): R11.2 - NAUSEA WITH VOMITING, UNSPECIFIED Qualifiers: Vomiting type: unspecified Vomiting Intractability: intractable Qualified Code(s): R11.2 - Nausea with vomiting, unspecified (2) Anemia Code(s): D64.9 - ANEMIA, UNSPECIFIED (3) Diabetes Code(s): E11.9 - TYPE 2 DIABETES MELLITUS WITHOUT COMPLICATIONS (4) Diastolic CHF Code(s): I50.30 - UNSPECIFIED DIASTOLIC (CONGESTIVE) HEART FAILURE (5) Elevated troponin Assessment/Plan: hx chronic elevation of TNI. <0.02 on 05/27/2019. Multiple CAD risks. If not done recently, will do stress test when stable (may be done as outpatient ). Code(s): R79.89 - OTHER SPECIFIED ABNORMAL FINDINGS OF BLOOD CHEMISTRY (6) Hypoalbuminemia Assessment/Plan: reaction to systemic/GI illness/poor nutrition; diastolic CHF. Code(s): E88.09 - OTH DISORDERS OF PLASMA-PROTEIN METABOLISM, NEC (7) HTN (hypertension) Assessment/Plan: On nifedipine and carvedilol. Added lisinopril (HTN; DM);.f/u BUn/Cr, electrolytes, serial BP. Code(s): I10 - ESSENTIAL (PRIMARY) HYPERTENSION (8) Hypokalemia Assessment/Plan: replete, and f/u all electrolytes Code(s): E87.6 - HYPOKALEMIA
[2019-06-02] MEDS: LISINOPRIL 5 MG TABLET (FP) PO SCH (11:22)
[2019-06-02] MEDS: NIFEdipine E.R. 90 MG TABLET PO SCH (11:22)
[2019-06-02] MEDS: PANTOPRAZOLE SODIUM 40 MG VIAL IVPUSH SCH (11:23)
[2019-06-02] MEDS: HEPARIN NA (PORCINE) 5,000 UNITS/ML 1ML VIAL SQ SCH ×2 (11:23→21:35)
[2019-06-02] MEDS: CARVEDILOL 12.5 MG TABLET (FP) PO SCH ×2 (11:23→21:35)
--- NOTE | 2019-06-02 12:36 | PN.GI ---
GI Progress Note Subjective: For Dr. Manuel: Sitting up eating. States feeling well, however reports that he threw up his dinner from last night this morning. Seems to be tolerating lunch. MRI findings as outlined in yesterday's note - Objective Vital Signs: Vital Signs Temperature 97.9 F 06/02/19 11:19 Pulse Rate 92 H 06/02/19 11:19 Respiratory Rate 06/02/19 11:19 Blood Pressure 147/99 06/02/19 11:19 O2 Sat by Pulse Oximetry (%) 99 06/01/19 21:00 Constitutional: Calm Eyes: No: Sclera Icterus Cardiovascular: Yes: Regular Rate and Rhythm Respiratory: Yes: CTA Bilaterally Gastrointestinal Inspection: No: Distention ...Auscultate: Yes: Normoactive Bowel Sounds ...Palpate: Yes: Tenderness (TTP mid abdomen) Neurological: Yes: Alert Labs: CBC, BMP 05/29/19 06:12 05/31/19 06:59 Problem List - Problems (1) Abdominal pain Assessment/Plan: No acute events Still with vomiting: ? gastroparesis, ? small bowel pathology If cannot tolerate PO, change to clears Reglan 5mg IVPB q 8 hours for 3 doses Avoid opiate analgesia Dr. Manuel resumes care 06/03/19 Code(s): R10.9 - UNSPECIFIED ABDOMINAL PAIN
[2019-06-02] MEDS: METOCLOPRAMIDE HCL INJECTION 10 MG/2 ML VIAL IVPUSH SCH ×2 (13:10→21:35)
--- NOTE | 2019-06-02 15:29 | PN ---
Progress Note, Physician History of Present Illness: No new events. Pt still with similar c/o mid abd pain, episode of vomiting. Remains afebrile/alert without distress. - Current Medication List Current Medications: Active Medications Carvedilol (Coreg -) 12.5 mg PO BID [facility] Last Admin: 06/02/19 11:23 Dose: 12.5 mg Heparin Sodium (Porcine) (Heparin -) 5,000 unit SQ BID [facility] Last Admin: 06/02/19 11:23 Dose: 5,000 unit Insulin Aspart (Novolog Vial Sliding Scale -) 1 vial SQ ACHS [facility]; Protocol Last Admin: 06/02/19 11:33 Dose: 3 units Insulin Detemir (Levemir Vial) 12 units SQ AM [facility] Last Admin: 06/02/19 06:32 Dose: 12 unit Lisinopril (Prinivil) 2.5 mg PO DAILY [facility] Last Admin: 06/02/19 11:22 Dose: 2.5 mg Metoclopramide HCl (Reglan Injection -) 5 mg IVPUSH Q8H [facility] Stop: 06/03/19 04:46 Last Admin: 06/02/19 13:10 Dose: 5 mg Nifedipine (Procardia Xl -) 90 mg PO DAILY [facility] Last Admin: 06/02/19 11:22 Dose: 90 mg Pantoprazole Sodium (Protonix Iv) 40 mg IVPUSH DAILY [facility] Last Admin: 06/02/19 11:23 Dose: 40 mg - Objective Vital Signs: Vital Signs Temperature 97.9 F 06/02/19 11:19 Pulse Rate 89 06/02/19 13:01 Respiratory Rate 20 06/02/19 13:01 Blood Pressure 95/64 06/02/19 13:01 O2 Sat by Pulse Oximetry (%) 99 06/01/19 21:00 Constitutional: Yes: No Distress, Calm Eyes: Yes: Conjunctiva Clear Cardiovascular: Yes: Regular Rate and Rhythm Respiratory: Yes: Regular Gastrointestinal: Yes: Normal Bowel Sounds, Soft, Tenderness (mid epig with deep palpation) Genitourinary: Yes: WNL Neurological: Yes: Alert Labs: CBC, BMP 05/29/19 06:12 05/31/19 06:59 Problem List - Problems (1) Abdominal pain Code(s): R10.9 - UNSPECIFIED ABDOMINAL PAIN (2) HTN (hypertension) Code(s): I10 - ESSENTIAL (PRIMARY) HYPERTENSION (3) Nausea & vomiting Code(s): R11.2 - NAUSEA WITH VOMITING, UNSPECIFIED Qualifiers: Vomiting type: unspecified Vomiting Intractability: intractable Qualified Code(s): R11.2 - Nausea with vomiting, unspecified (4) Type 1 diabetes mellitus with diabetic chronic kidney disease Code(s): E10.22 - TYPE 1 DIABETES MELLITUS W DIABETIC CHRONIC KIDNEY DISEASE Qualifiers: Chronic kidney disease stage: stage 2 (mild) Qualified Code(s): E10.22 - Type 1 diabetes mellitus with diabetic chronic kidney disease; N18.2 - Chronic kidney disease, stage 2 (mild) (5) Anemia Code(s): D64.9 - ANEMIA, UNSPECIFIED (6) Renal dysfunction Code(s): N28.9 - DISORDER OF KIDNEY AND URETER, UNSPECIFIED Assessment/Plan Abd pain nausea/vomiting Uncontrolled DM CKD anemia Gastroparesis HTN -- pt with same complaints. -- afebrile, without acute distress -- GI notes reviewed, MRCP showing decreased thickening of small bowel loops ? enteritis -- monitor off antibiotics, vitals currently stable
--- NOTE | 2019-06-02 16:09 | PN ---
Progress Note, Physician - Current Medication List Current Medications: Active Medications Carvedilol (Coreg -) 12.5 mg PO BID [facility] Last Admin: 06/02/19 11:23 Dose: 12.5 mg Heparin Sodium (Porcine) (Heparin -) 5,000 unit SQ BID [facility] Last Admin: 06/02/19 11:23 Dose: 5,000 unit Insulin Aspart (Novolog Vial Sliding Scale -) 1 vial SQ ACHS [facility]; Protocol Last Admin: 06/02/19 11:33 Dose: 3 units Insulin Detemir (Levemir Vial) 12 units SQ AM [facility] Last Admin: 06/02/19 06:32 Dose: 12 unit Lisinopril (Prinivil) 2.5 mg PO DAILY [facility] Last Admin: 06/02/19 11:22 Dose: 2.5 mg Metoclopramide HCl (Reglan Injection -) 5 mg IVPUSH Q8H [facility] Stop: 06/03/19 04:46 Last Admin: 06/02/19 13:10 Dose: 5 mg Nifedipine (Procardia Xl -) 90 mg PO DAILY [facility] Last Admin: 06/02/19 11:22 Dose: 90 mg Pantoprazole Sodium (Protonix Iv) 40 mg IVPUSH DAILY [facility] Last Admin: 06/02/19 11:23 Dose: 40 mg - Objective Vital Signs: Vital Signs Temperature 98.5 F 06/02/19 14:00 Pulse Rate 80 06/02/19 14:00 Respiratory Rate 20 06/02/19 14:00 Blood Pressure 82/47 L 06/02/19 14:00 O2 Sat by Pulse Oximetry (%) 99 06/01/19 21:00 Constitutional: Yes: No Distress HENT: Yes: Atraumatic Neck: Yes: Supple Cardiovascular: Yes: Regular Rate and Rhythm Respiratory: Yes: CTA Bilaterally Gastrointestinal: Yes: Normal Bowel Sounds Extremities: Yes: WNL Edema: No Neurological: Yes: Alert, Oriented Labs: CBC, BMP 05/29/19 06:12 05/31/19 06:59 Problem List - Problems (1) Nausea & vomiting Assessment/Plan: ludinn marleni he said he trew up dinner and breakfast will start clear liquid diet Code(s): R11.2 - NAUSEA WITH VOMITING, UNSPECIFIED Qualifiers: Vomiting type: unspecified Vomiting Intractability: intractable Qualified Code(s): R11.2 - Nausea with vomiting, unspecified (2) Abdominal pain Code(s): R10.9 - UNSPECIFIED ABDOMINAL PAIN (3) Diabetes Code(s): E11.9 - TYPE 2 DIABETES MELLITUS WITHOUT COMPLICATIONS (4) Diastolic CHF Code(s): I50.30 - UNSPECIFIED DIASTOLIC (CONGESTIVE) HEART FAILURE (5) Uncontrolled diabetes mellitus Code(s): E11.65 - TYPE 2 DIABETES MELLITUS WITH HYPERGLYCEMIA (6) Type 1 diabetes mellitus with diabetic chronic kidney disease Code(s): E10.22 - TYPE 1 DIABETES MELLITUS W DIABETIC CHRONIC KIDNEY DISEASE Qualifiers: Chronic kidney disease stage: stage 2 (mild) Qualified Code(s): E10.22 - Type 1 diabetes mellitus with diabetic chronic kidney disease; N18.2 - Chronic kidney disease, stage 2 (mild)
[2019-06-02 18:36] LABS: PHOSPHOROUS 3.2 mg/dL (2.5-4.9)
[2019-06-03] MEDS: METOCLOPRAMIDE HCL INJECTION 10 MG/2 ML VIAL IVPUSH SCH (06:35)
[2019-06-03] MEDS: INSULIN SLIDING SCALE (NOVOLOG) 1 VIAL SQ SCH ×4 (06:35→23:04)
[2019-06-03] MEDS: INSULIN (LEVEMIR) 100 UNITS/ML UNITS SQ SCH (06:35)
[2019-06-03] MEDS: CARVEDILOL 12.5 MG TABLET (FP) PO SCH ×2 (09:59→21:19)
[2019-06-03] MEDS: HEPARIN NA (PORCINE) 5,000 UNITS/ML 1ML VIAL SQ SCH (10:00)
[2019-06-03] MEDS: PANTOPRAZOLE SODIUM 40 MG VIAL IVPUSH SCH (10:00)
[2019-06-03] MEDS: LISINOPRIL 5 MG TABLET (FP) PO SCH (10:00)
--- NOTE | 2019-06-03 10:58 | PN ---
Progress Note, Physician History of Present Illness: The patient is a 58 year old black man with a significat PMH of IDDM, HTN, BPH, anemia and iwona lara tears and gastroporesis who presents to the ED for 3 days of nausea, vomitting and epigastric abdominal pain. Patient reports that he has presented multiple times to the ED for the same symtpoms He notes that he reportedly has had a recent colonoscopy and an endoscopy which were both negative. He notes he was discharged 7 days ago for the same symtpoms and was feeling well, but 3 days ago it restarted. He reports being unable to tolerate PO and has had no bowel moveemnts along with flatus in 3 days. He also endorses a headache, The patient denies chest pain, shortness of breath, headache and dizziness. Denies fever, chills, diarrhea. Denies dysuria, frequency, urgency and hematuria. His father had an CO in his 80s. - Current Medication List Current Medications: Active Medications Carvedilol (Coreg -) 12.5 mg PO BID [facility] Last Admin: 06/03/19 09:59 Dose: 12.5 mg Heparin Sodium (Porcine) (Heparin -) 5,000 unit SQ BID [facility] Last Admin: 06/03/19 10:00 Dose: 5,000 unit Insulin Aspart (Novolog Vial Sliding Scale -) 1 vial SQ ACHS [facility]; Protocol Last Admin: 06/03/19 06:35 Dose: 3 units Insulin Detemir (Levemir Vial) 12 units SQ AM [facility] Last Admin: 06/03/19 06:35 Dose: 12 unit Lisinopril (Prinivil) 2.5 mg PO DAILY [facility] Last Admin: 06/03/19 10:00 Dose: 2.5 mg Pantoprazole Sodium (Protonix Iv) 40 mg IVPUSH DAILY [facility] Last Admin: 06/03/19 10:00 Dose: 40 mg - Objective Vital Signs: Vital Signs Temperature 98.8 F 06/03/19 06:00 Pulse Rate 89 06/03/19 06:00 Respiratory Rate 20 06/03/19 06:00 Blood Pressure 121/62 06/03/19 06:00 O2 Sat by Pulse Oximetry (%) 98 06/02/19 11:20 Eyes: Yes: WNL, Conjunctiva Clear, EOM Intact HENT: Yes: WNL, Atraumatic, Normocephalic Neck: Yes: WNL, Supple, Trachea Midline Cardiovascular: Yes: WNL, Regular Rate and Rhythm Respiratory: Yes: WNL, Regular, CTA Bilaterally Gastrointestinal: Yes: WNL, Normal Bowel Sounds Genitourinary: Yes: WNL Musculoskeletal: Yes: WNL Extremities: Yes: WNL Edema: Yes Integumentary: Yes: WNL Neurological: Yes: WNL, Alert, Oriented ...Motor Strength: WNL Psychiatric: Yes: WNL Labs: CBC, BMP 05/29/19 06:12 05/31/19 06:59 Assessment/Plan - Problems (1) Nausea & vomiting Assessment/Plan: multiple similar episodes continued nausea and vomiting, abdominal pain. s/p MRCP: results pending. F/u with GI (sees Dr. Manuel). On antibiotics. Code(s): R11.2 - NAUSEA WITH VOMITING, UNSPECIFIED Qualifiers: Vomiting type: unspecified Vomiting Intractability: intractable Qualified Code(s): R11.2 - Nausea with vomiting, unspecified (2) Anemia Code(s): D64.9 - ANEMIA, UNSPECIFIED (3) Diabetes Code(s): E11.9 - TYPE 2 DIABETES MELLITUS WITHOUT COMPLICATIONS (4) Diastolic CHF Code(s): I50.30 - UNSPECIFIED DIASTOLIC (CONGESTIVE) HEART FAILURE (5) Elevated troponin Assessment/Plan: hx chronic elevation of TNI. <0.02 on 05/27/2019. Multiple CAD risks. If not done recently, will do stress test when stable (may be done as outpatient ). Code(s): R79.89 - OTHER SPECIFIED ABNORMAL FINDINGS OF BLOOD CHEMISTRY (6) Hypoalbuminemia Assessment/Plan: reaction to systemic/GI illness/poor nutrition; diastolic CHF. Code(s): E88.09 - OTH DISORDERS OF PLASMA-PROTEIN METABOLISM, NEC (7) HTN (hypertension) Assessment/Plan: On nifedipine and carvedilol. Added lisinopril (HTN; DM);.f/u BUn/Cr, electrolytes, serial BP. Code(s): I10 - ESSENTIAL (PRIMARY) HYPERTENSION (8) Hypokalemia Assessment/Plan: replete, and f/u all electrolytes Code(s): E87.6 - HYPOKALEMIA
[2019-06-03 11:46] LABS: BLOOD UREA NITROGEN 15.5 mg/dL (7-18); CALCIUM 7.5 mg/dL (8.5-10.1); CREATININE 2.1 mg/dL (0.55-1.3); POTASSIUM 3.6 mmol/L (3.5-5.1)
--- NOTE | 2019-06-03 14:31 | PN ---
Progress Note, Physician History of Present Illness: stable back on liquids since he threw up solid - Current Medication List Current Medications: Active Medications Carvedilol (Coreg -) 12.5 mg PO BID [facility] Last Admin: 06/03/19 09:59 Dose: 12.5 mg Heparin Sodium (Porcine) (Heparin -) 5,000 unit SQ BID [facility] Last Admin: 06/03/19 10:00 Dose: 5,000 unit Insulin Aspart (Novolog Vial Sliding Scale -) 1 vial SQ ACHS [facility]; Protocol Last Admin: 06/03/19 11:27 Dose: 3 units Insulin Detemir (Levemir Vial) 12 units SQ AM [facility] Last Admin: 06/03/19 06:35 Dose: 12 unit Lisinopril (Prinivil) 2.5 mg PO DAILY [facility] Last Admin: 06/03/19 10:00 Dose: 2.5 mg Pantoprazole Sodium (Protonix Iv) 40 mg IVPUSH DAILY [facility] Last Admin: 06/03/19 10:00 Dose: 40 mg - Objective Vital Signs: Vital Signs Temperature 98.8 F 06/03/19 06:00 Pulse Rate 89 06/03/19 06:00 Respiratory Rate 20 06/03/19 06:00 Blood Pressure 121/62 06/03/19 06:00 O2 Sat by Pulse Oximetry (%) 98 06/02/19 11:20 Constitutional: Yes: No Distress, Calm Cardiovascular: Yes: S1, S2 Respiratory: Yes: Regular, CTA Bilaterally Gastrointestinal: Yes: Normal Bowel Sounds, Soft Musculoskeletal: Yes: WNL Extremities: Yes: WNL Neurological: Yes: Alert, Oriented Psychiatric: Yes: Alert, Oriented Labs: CBC, BMP 05/29/19 06:12 06/03/19 09:35 Assessment/Plan Problem List - Problems (1) Nausea & vomiting Code(s): R11.2 - NAUSEA WITH VOMITING, UNSPECIFIED Qualifiers: Vomiting type: unspecified Vomiting Intractability: intractable Qualified Code(s): R11.2 - Nausea with vomiting, unspecified (2) Abdominal pain Code(s): R10.9 - UNSPECIFIED ABDOMINAL PAIN (3) Diabetes Code(s): E11.9 - TYPE 2 DIABETES MELLITUS WITHOUT COMPLICATIONS (4) Diastolic CHF Code(s): I50.30 - UNSPECIFIED DIASTOLIC (CONGESTIVE) HEART FAILURE (5) Uncontrolled diabetes mellitus Code(s): E11.65 - TYPE 2 DIABETES MELLITUS WITH HYPERGLYCEMIA plan continue current mgmt hydration
--- NOTE | 2019-06-03 17:57 | PN ---
Progress Note, Physician - Current Medication List Current Medications: Active Medications Carvedilol (Coreg -) 12.5 mg PO BID [facility] Last Admin: 06/03/19 09:59 Dose: 12.5 mg Heparin Sodium (Porcine) (Heparin -) 5,000 unit SQ BID [facility] Last Admin: 06/03/19 10:00 Dose: 5,000 unit Insulin Aspart (Novolog Vial Sliding Scale -) 1 vial SQ ACHS [facility]; Protocol Last Admin: 06/03/19 16:32 Dose: Not Given Insulin Detemir (Levemir Vial) 12 units SQ AM [facility] Last Admin: 06/03/19 06:35 Dose: 12 unit Lisinopril (Prinivil) 2.5 mg PO DAILY [facility] Last Admin: 06/03/19 10:00 Dose: 2.5 mg Pantoprazole Sodium (Protonix Iv) 40 mg IVPUSH DAILY [facility] Last Admin: 06/03/19 10:00 Dose: 40 mg - Objective Vital Signs: Vital Signs Temperature 98.5 F 06/03/19 15:39 Pulse Rate 80 06/03/19 15:39 Respiratory Rate 20 06/03/19 15:39 Blood Pressure 101/55 L 06/03/19 15:39 O2 Sat by Pulse Oximetry (%) 100 06/03/19 09:00 Constitutional: Yes: No Distress HENT: Yes: Atraumatic Neck: Yes: Supple Cardiovascular: Yes: Regular Rate and Rhythm Respiratory: Yes: CTA Bilaterally Gastrointestinal: Yes: Normal Bowel Sounds Extremities: Yes: WNL Edema: No Neurological: Yes: Alert, Oriented Labs: CBC, BMP 05/29/19 06:12 06/03/19 09:35 Problem List - Problems (1) Nausea & vomiting Assessment/Plan: prn zofran on clear liquid diet...tolerated advance to softy diet d/w dr luis can be dc tomorrow if tolerating diet Code(s): R11.2 - NAUSEA WITH VOMITING, UNSPECIFIED Qualifiers: Vomiting type: unspecified Vomiting Intractability: intractable Qualified Code(s): R11.2 - Nausea with vomiting, unspecified (2) Abdominal pain Code(s): R10.9 - UNSPECIFIED ABDOMINAL PAIN (3) Diabetes Assessment/Plan: insulin and bgms Code(s): E11.9 - TYPE 2 DIABETES MELLITUS WITHOUT COMPLICATIONS (4) Diastolic CHF Code(s): I50.30 - UNSPECIFIED DIASTOLIC (CONGESTIVE) HEART FAILURE (5) Uncontrolled diabetes mellitus Code(s): E11.65 - TYPE 2 DIABETES MELLITUS WITH HYPERGLYCEMIA (6) Type 1 diabetes mellitus with diabetic chronic kidney disease Code(s): E10.22 - TYPE 1 DIABETES MELLITUS W DIABETIC CHRONIC KIDNEY DISEASE Qualifiers: Chronic kidney disease stage: stage 2 (mild) Qualified Code(s): E10.22 - Type 1 diabetes mellitus with diabetic chronic kidney disease; N18.2 - Chronic kidney disease, stage 2 (mild) (7) Diabetic gastropathy Code(s): E11.69 - TYPE 2 DIABETES MELLITUS WITH OTHER SPECIFIED COMPLICATION; K31.9 - DISEASE OF STOMACH AND DUODENUM, UNSPECIFIED Assessment/Plan PATIENT WAS EATING SNACKS OUT OF VENDING MACHINE
[2019-06-03] MEDS ORDERED: FUROSEMIDE 40 MG TABLET (FP) PO ONE (19:09)
[2019-06-03] MEDS ORDERED: POTASSIUM CHLORIDE TABS 20 MEQ TABLET.ER (FP) PO ONE (19:09)
--- NOTE | 2019-06-03 19:09 | PN ---
Progress Note, Physician History of Present Illness: Pt seen and examined at bedside. He is awake and alert. he complains of lower ext edema. - Current Medication List Current Medications: Active Medications Carvedilol (Coreg -) 12.5 mg PO BID [facility] Last Admin: 06/03/19 09:59 Dose: 12.5 mg Heparin Sodium (Porcine) (Heparin -) 5,000 unit SQ BID [facility] Last Admin: 06/03/19 10:00 Dose: 5,000 unit Insulin Aspart (Novolog Vial Sliding Scale -) 1 vial SQ [facility]; Protocol Last Admin: 06/03/19 16:32 Dose: Not Given Insulin Detemir (Levemir Vial) 12 units SQ AM [facility] Last Admin: 06/03/19 06:35 Dose: 12 unit Lisinopril (Prinivil) 2.5 mg PO DAILY [facility] Last Admin: 06/03/19 10:00 Dose: 2.5 mg Pantoprazole Sodium (Protonix Iv) 40 mg IVPUSH DAILY [facility] Last Admin: 06/03/19 10:00 Dose: 40 mg - Objective Vital Signs: Vital Signs Temperature 98.5 F 06/03/19 15:39 Pulse Rate 80 06/03/19 15:39 Respiratory Rate 20 06/03/19 15:39 Blood Pressure 101/55 L 06/03/19 15:39 O2 Sat by Pulse Oximetry (%) 100 06/03/19 09:00 Constitutional: Yes: Calm Eyes: Yes: Conjunctiva Clear HENT: Yes: Atraumatic Neck: Yes: Supple Cardiovascular: Yes: S1, S2 Respiratory: Yes: CTA Bilaterally Gastrointestinal: Yes: Soft Musculoskeletal: Yes: WNL Edema: Yes Edema: LLE: 2+, RLE: 2+ Neurological: Yes: Oriented Psychiatric: Yes: Oriented Labs: CBC, BMP 05/29/19 06:12 06/03/19 09:35 Assessment/Plan Current Medications Generic Name Dose Route Start Last Admin Trade Name Freq PRN Reason Stop Dose Admin Carvedilol 12.5 mg 05/27/19 22:00 06/03/19 09:59 Coreg - PO 12.5 mg BID [facility] Administration Heparin Sodium (Porcine) 5,000 unit 05/27/19 22:00 06/03/19 10:00 Heparin - SQ 5,000 unit BID [facility] Administration Insulin Aspart 1 vial 05/29/19 07:00 06/03/19 16:32 Novolog Vial Sliding Scale - SQ Not Given ACHS [facility] Protocol Insulin Detemir 12 units 05/29/19 07:00 06/03/19 06:35 Levemir Vial SQ 12 unit AM [facility] Administration Lisinopril 2.5 mg 05/31/19 10:00 06/03/19 10:00 Prinivil PO 2.5 mg DAILY [facility] Administration Pantoprazole Sodium 40 mg 05/28/19 10:00 06/03/19 10:00 Protonix Iv IVPUSH 40 mg DAILY [facility] Administration Impression 1. vomiting 2. HTN 3. DM 4. anemia 5. bph 6. CKD 7. gastroparesis 8. hypokalemia 9. hypernatremia 10. hypomag Plan - will give a dose of lasix - repeat labs in am - renal function stable - pt tolerating clears - off of fluids
--- NOTE | 2019-06-03 19:58 | PN.GI ---
GI Progress Note Subjective: patients abdominal pain improved, patient noted to eat food from the vending machine then vomited,reviewed ct compard to previous was noted to have resolution of medenteric edema, the previously noted narrowingn in the celiac artery was not present, MRI possible pancreatitis - Objective Vital Signs: Vital Signs Temperature 98.5 F 06/03/19 18:00 Pulse Rate 79 06/03/19 18:00 Respiratory Rate 20 06/03/19 18:00 Blood Pressure 101/63 06/03/19 18:00 O2 Sat by Pulse Oximetry (%) 100 06/03/19 09:00 Constitutional: Well Nourished, Poor Hygeine Eyes: Yes: Occular Prosthesis HENT: Yes: Atraumatic Neck: Yes: Supple Cardiovascular: Yes: Regular Rate and Rhythm Respiratory: Yes: CTA Bilaterally ...Palpate: Yes: Soft. No: Firm/Rigid, Guarding, Hepatomegaly, Mass, Pulsatile Mass, Splenomegaly, Tenderness Labs: CBC, BMP 05/29/19 06:12 06/03/19 09:35 Problem List - Problems (1) Nausea & vomiting Assessment/Plan: stable Code(s): R11.2 - NAUSEA WITH VOMITING, UNSPECIFIED Qualifiers: Vomiting type: unspecified Vomiting Intractability: intractable Qualified Code(s): R11.2 - Nausea with vomiting, unspecified (2) Abdominal pain Assessment/Plan: r/o mesenteric ischemia, pancreatitis, gastroparesis R> advance diet will arrange for outpatient EUS and arrange vascular surgery consult for possible intestinal angina Code(s): R10.9 - UNSPECIFIED ABDOMINAL PAIN
[2019-06-04] MEDS: INSULIN SLIDING SCALE (NOVOLOG) 1 VIAL SQ SCH ×2 (06:43→11:42)
[2019-06-04] MEDS: INSULIN (LEVEMIR) 100 UNITS/ML UNITS SQ SCH (06:43)
[2019-06-04 08:34] LABS: BILIRUBIN,TOTAL 0.3 mg/dL (0.2-1); BLOOD UREA NITROGEN 13.5 mg/dL (7-18); CALCIUM 7.7 mg/dL (8.5-10.1); MAGNESIUM 1.7 mg/dL (1.8-2.4); POTASSIUM 3.9 mmol/L (3.5-5.1); TOT PROT 4.7 g/dl (6.4-8.2)
[2019-06-04] MEDS ORDERED: MAGNESIUM SULF 50% (8.12 MEQ/2 ML-1 GM VIAL) IVPB ONE (08:45)
--- NOTE | 2019-06-04 09:11 | PN ---
Progress Note, Physician History of Present Illness: GI FOLLOW UP NOTE Patient examined and case discussed with Dr Manuel Patient states abdominal pain has improved. He has dull mid abdominal pain accompanied with nausea. Denies diarrhea, constipation, rectal bleeding or melena. - Current Medication List Current Medications: Active Medications Carvedilol (Coreg -) 12.5 mg PO BID [facility] Last Admin: 06/03/19 21:19 Dose: 12.5 mg Insulin Aspart (Novolog Vial Sliding Scale -) 1 vial SQ ACHS [facility]; Protocol Last Admin: 06/04/19 06:43 Dose: Not Given Insulin Detemir (Levemir Vial) 12 units SQ AM [facility] Last Admin: 06/04/19 06:43 Dose: 12 unit Lisinopril (Prinivil) 2.5 mg PO DAILY [facility] Last Admin: 06/03/19 10:00 Dose: 2.5 mg Pantoprazole Sodium (Protonix Iv) 40 mg IVPUSH DAILY [facility] Last Admin: 06/03/19 10:00 Dose: 40 mg - Objective Vital Signs: Vital Signs Temperature 98.6 F 06/04/19 06:00 Pulse Rate 89 06/04/19 06:00 Respiratory Rate 20 06/04/19 06:00 Blood Pressure 153/85 06/04/19 06:00 O2 Sat by Pulse Oximetry (%) 98 06/03/19 21:00 Constitutional: Yes: No Distress, Calm Eyes: Yes: Conjunctiva Clear HENT: Yes: Atraumatic Cardiovascular: Yes: Regular Rate and Rhythm Respiratory: Yes: Regular, CTA Bilaterally Gastrointestinal: Yes: Normal Bowel Sounds, Soft Neurological: Yes: Alert, Oriented Psychiatric: Yes: Alert, Oriented Labs: CBC, BMP 05/29/19 06:12 06/04/19 07:32 Problem List - Problems (1) Abdominal pain Assessment/Plan: -patient instructed to follow up with Dr Manuel as an outpatient -instructed will need to also follow up at [facility] for Endoscopic US and will need outpatient appointment with Vascular surgeon to R/o intestinal angina Code(s): R10.9 - UNSPECIFIED ABDOMINAL PAIN
[2019-06-04] MEDS: PANTOPRAZOLE SODIUM 40 MG VIAL IVPUSH SCH (11:12)
[2019-06-04] MEDS: LISINOPRIL 5 MG TABLET (FP) PO SCH (11:12)
[2019-06-04] MEDS: CARVEDILOL 12.5 MG TABLET (FP) PO SCH (11:13)
--- NOTE | 2019-06-04 12:45 | PN ---
Progress Note, Physician History of Present Illness: stable tolerating diet - Current Medication List Current Medications: Active Medications Carvedilol (Coreg -) 12.5 mg PO BID [facility] Last Admin: 06/04/19 11:13 Dose: 12.5 mg Insulin Aspart (Novolog Vial Sliding Scale -) 1 vial SQ ACHS [facility]; Protocol Last Admin: 06/04/19 11:42 Dose: Not Given Insulin Detemir (Levemir Vial) 12 units SQ AM [facility] Last Admin: 06/04/19 06:43 Dose: 12 unit Lisinopril (Prinivil) 2.5 mg PO DAILY [facility] Last Admin: 06/04/19 11:12 Dose: 2.5 mg Pantoprazole Sodium (Protonix Iv) 40 mg IVPUSH DAILY [facility] Last Admin: 06/04/19 11:12 Dose: 40 mg - Objective Vital Signs: Vital Signs Temperature 98.6 F 06/04/19 06:00 Pulse Rate 89 06/04/19 06:00 Respiratory Rate 20 06/04/19 06:00 Blood Pressure 153/85 06/04/19 06:00 O2 Sat by Pulse Oximetry (%) 98 06/03/19 21:00 Constitutional: Yes: No Distress, Calm Cardiovascular: Yes: S1, S2 Respiratory: Yes: Regular, CTA Bilaterally Gastrointestinal: Yes: Normal Bowel Sounds, Soft Musculoskeletal: Yes: WNL Extremities: Yes: WNL Neurological: Yes: Alert, Oriented Psychiatric: Yes: Alert, Oriented Labs: CBC, BMP 05/29/19 06:12 06/04/19 07:32 Assessment/Plan Problem List - Problems (1) Nausea & vomiting Code(s): R11.2 - NAUSEA WITH VOMITING, UNSPECIFIED Qualifiers: Vomiting type: unspecified Vomiting Intractability: intractable Qualified Code(s): R11.2 - Nausea with vomiting, unspecified (2) Abdominal pain Code(s): R10.9 - UNSPECIFIED ABDOMINAL PAIN (3) Diabetes Code(s): E11.9 - TYPE 2 DIABETES MELLITUS WITHOUT COMPLICATIONS (4) Diastolic CHF Code(s): I50.30 - UNSPECIFIED DIASTOLIC (CONGESTIVE) HEART FAILURE (5) Uncontrolled diabetes mellitus Code(s): E11.65 - TYPE 2 DIABETES MELLITUS WITH HYPERGLYCEMIA plan continue current mgmt hydration
[2019-06-04 15:24] VITALS: BP 110/60; PULSE 84; TEMP 98.8
--- NOTE | 2019-06-04 18:13 | PN ---
Progress Note, Physician History of Present Illness: Pt seen and examined at bedside. He feels well and is eager to go home. - Objective Vital Signs: Vital Signs Temperature 98.8 F 06/04/19 14:00 Pulse Rate 84 06/04/19 14:00 Respiratory Rate 18 06/04/19 14:00 Blood Pressure 110/60 06/04/19 14:00 O2 Sat by Pulse Oximetry (%) 98 06/03/19 21:00 Constitutional: Yes: Calm Eyes: Yes: Conjunctiva Clear HENT: Yes: Atraumatic Neck: Yes: Supple Cardiovascular: Yes: S1, S2 Gastrointestinal: Yes: Soft Genitourinary: Yes: WNL Edema: Yes Edema: LLE: Trace, RLE: Trace Neurological: Yes: Oriented Psychiatric: Yes: Oriented Labs: CBC, BMP 05/29/19 06:12 06/04/19 07:32 Assessment/Plan Current Medications Generic Name Dose Route Start Last Admin Trade Name Freq PRN Reason Stop Dose Admin Carvedilol 12.5 mg 05/27/19 22:00 06/03/19 09:59 Coreg - PO 12.5 mg BID [facility] Administration Heparin Sodium (Porcine) 5,000 unit 05/27/19 22:00 06/03/19 10:00 Heparin - SQ 5,000 unit BID [facility] Administration Insulin Aspart 1 vial 05/29/19 07:00 06/03/19 16:32 Novolog Vial Sliding Scale - SQ Not Given [facility] Protocol Insulin Detemir 12 units 05/29/19 07:00 06/03/19 06:35 Levemir Vial SQ 12 unit AM [facility] Administration Lisinopril 2.5 mg 05/31/19 10:00 06/03/19 10:00 Prinivil PO 2.5 mg DAILY [facility] Administration Pantoprazole Sodium 40 mg 05/28/19 10:00 06/03/19 10:00 Protonix Iv IVPUSH 40 mg DAILY [facility] Administration Selected Entries 06/04/19 14:00 Blood Pressure 110/60 Laboratory Tests 06/04/19 07:32 Potassium 3.9 Creatinine 2.0 H Impression 1. vomiting 2. HTN 3. DM 4. anemia 5. bph 6. CKD 7. gastroparesis 8. hypokalemia 9. hypernatremia 10. hypomag Plan - will need outpt follow up - edema improving - low sodium heart healthy diet - pt tolerating diet
--- NOTE | 2019-06-04 19:05 | DS ---
Physical Examination Vital Signs: Vital Signs Temperature 98.8 F 06/04/19 14:00 Pulse Rate 84 06/04/19 14:00 Respiratory Rate 18 06/04/19 14:00 Blood Pressure 110/60 06/04/19 14:00 O2 Sat by Pulse Oximetry (%) 98 06/03/19 21:00 Labs: CBC, BMP 05/29/19 06:12 06/04/19 07:32 Discharge Summary Problems reviewed: Yes Reason For Visit: PERIUMBILICAL ABD PAIN,NAUSEA AND VOMITING Condition: Stable - Instructions Diet, Activity, Other Instructions: see dr luis for further care Referrals: Delmis Mane [Primary Care Provider] - Noah Mariscal MD [Staff Physician] - David Luis MD [Staff Physician] - Disposition: HOME - Home Medications Comprehensive Discharge Medication List: Ambulatory Orders Insulin Glargine,Hum.rec.anlog [Lantus Solostar PEN -] 30 units SQ HS 06/26/15 Atorvastatin Calcium 40 mg PO DAILY 05/02/19 Gabapentin 1 cap PO HS 05/02/19 Carvedilol [Coreg -] 12.5 mg PO BID #60 tablet 05/10/19 Lipase/Protease/Amylase [Nena Hodge 36,000 Units Capsule] 1 cap PO TIDCM #90 capsule. 05/10/19 Nifedipine ER [Procardia XL -] 90 mg PO DAILY #30 tab.er.24 05/10/19 Pantoprazole Sodium [Protonix] 40 mg PO DAILY #30 tablet. 05/10/19 Simethicone [Mylicon -] 80 mg PO QID PRN #120 tab.chew 05/10/19 Insulin (Novolog) [Novolog -] 3 unit SCJ TID #1 units 05/20/19 DC HOME AFTER LUNCH, PER RN TOLERATED DIET
== END 2019-06-04 15:15 | disposition home or self-care (01) | DRG 48 ==
LOC: JER 12:01 → JERBED 21:03 → J4W 05-28 01:56 → J5S 05-31 19:34
PROVIDERS: ADMIT Internal Medicine; ATTEND Internal Medicine
DX: E11.43 Type 2 diabetes mellitus with diabetic autonomic (poly)neuropathy (principal); R10.9 Unspecified abdominal pain; N40.0 Benign prostatic hyperplasia without lower urinary tract symptoms; E87.6 Hypokalemia; E83.42 Hypomagnesemia; R11.2 Nausea with vomiting, unspecified; N18.2 Chronic kidney disease, stage 2 (mild); K31.84 Gastroparesis; D64.9 Anemia, unspecified; K85.90 Acute pancreatitis without necrosis or infection, unspecified; E88.09 Other disorders of plasma-protein metabolism, not elsewhere classified; K55.9 Vascular disorder of intestine, unspecified; I13.0 Hypertensive heart and chronic kidney disease with heart failure and stage 1 through stage 4 chronic kidney disease, or unspecified chronic kidney disease; E87.0 Hyperosmolality and hypernatremia; I50.30 Unspecified diastolic (congestive) heart failure; E11.65 Type 2 diabetes mellitus with hyperglycemia; R31.29 Other microscopic hematuria
CPT/HCPCS: 36415; 74176-TC; 74181-TC; 76700-TC; 76775-TC; 76856-TC; 80048; 80053; 80061; 80307; 81003; 82010; 82150; 82550; 82553; 82570; 82962; 83036; 83605; 83690; 83721; 83735; 83880; 84100; 84156; 84484; 85025; 87086; 93005; 93010; 93976; 99284-25; J1644; J7030

== ENCOUNTER 2019-10-24 12:03 | Inpatient (IN) | payer OTHER ==
--- NOTE | 2019-10-24 12:06 | PDOC ---
History of Present Illness - General Stated Complaint: Shortness of Breath Time Seen by Provider: 10/24/19 12:06 History Source: Patient Exam Limitations: No Limitations - History of Present Illness Initial Comments: 58 year old male with PMH DM II, gastroparesis, CKD, HTN, distal esophageal thickening presented to ED for umbilical abdominal pain, nausea and bloody vomiting x2 days. Pt reported his pain is constant, stabbing, aggravated by movement, no alleviating factors. Pt was admitted in September 2019 for abdominal pain/nausea/vomiting was transferred to [facility] for a specialized endoscopic procedure, which he reported was not performed. He reported he has been unable to F/U with GI outpatient. ROS General: denied fever, chills, generalized weakness. HEENT: denied sore throat, rhinorrhea, ear pain. Cardiovascular: denied chest pain, palpitations, syncope, diaphoresis. Respiratory: denied shortness of breath, cough, sputum production, hemoptysis. Gastrointestinal: admitted to abdominal pain, nausea, vomiting. denied diarrhea, constipation, blood in stool. Genitourinary: denied dysuria, increased urinary frequency, hematuria, urinary incontinence, flank pain. Back: denied back pain. Musculoskeletal: denied joint pain, muscle pain, joint swelling. Neurological: denied headache, dizziness, numbness, tingling, weakness. Integumentary: denied rash, laceration, abrasion. Hematologic/Lymphatic: denied bruising or bleeding. PE Constitutional: Well-nourished, Well-developed, appearing stated age. HEENT: head is normocephalic, atraumatic. EOMI. PERRLA. Neck: supple. Full ROM. Cardiovascular: regular heart rhythm. Normal S1 and S2. no murmurs. no pericardial friction rub. Respiratory: clear to auscultation bilaterally. no crackles, rhonchi or wheezing. no stridor. Gastrointestinal: soft, flat. tenderness to epigastric area, LLQ, RLQ - worse in the epigastrium. normal bowel sounds. no rebound, guarding, or masses. Extremities: peripheral pulses intact and equal. no lower extremity edema noted. Neurological: CN 2-12 grossly intact. moves all four extremities. Psych: awake, alert, oriented x3. follows commands. answers questions appropriately. Past History - Medical History Allergies/Adverse Reactions: Allergies Allergy/AdvReac Type Severity Reaction Status Date / Time No Known Allergies Allergy Verified 10/24/19 12:27 Home Medications: Ambulatory Orders Insulin Glargine,Hum.rec.anlog [Lantus Solostar PEN -] 30 units SQ HS 06/26/15 Gabapentin 1 cap PO HS 05/02/19 Lipase/Protease/Amylase [Nena Hodge 36,000 Units Capsule] 1 cap PO TIDCM #90 capsule. 05/10/19 Nifedipine ER [Procardia XL -] 90 mg PO DAILY #30 tab.er.24 05/10/19 Simethicone [Mylicon -] 80 mg PO QID PRN #120 tab.chew 05/10/19 Insulin Lispro [Humalog] See Protocol SQ TID #2 vial 10/10/19 Lisinopril 20 mg PO DAILY #30 tablet 10/10/19 Metoprolol Succinate 50 mg PO DAILY #30 tab.er.24h 10/10/19 Pantoprazole Sodium [Protonix] 40 mg PO DAILY #30 tablet. 10/10/19 Sucralfate [Carafate -] 1 gm PO BID 7 Days #14 tablet 10/10/19 Atorvastatin Ca [Lipitor] 40 mg PO HS 10/16/19 Acetaminophen Injection [Ofirmev Injection -] 1,000 mg IVPB Q6H PRN vial 10/18/19 Heparin - 5,000 unit SQ TID vial 10/18/19 Insulin Sliding Scale [Novolog Vial Sliding Scale -] 1 vial SQ ACHS units Morphine Sulfate 4 mg IVPUSH Q4H PRN vial 10/18/19 GI Disorders: Yes (GIB, Gastroparesis, Sayda-Perry tear, multiple admits for N/V) - Surgical History Orthopedic Surgery: Yes (bilateral 5th toe amputation) - Immunization History Immunization Up to Date: Yes - Psycho-Social/Smoking History Smoking History: Never smoked Have you smoked in the past 12 months: No ED Treatment Course - LABORATORY CBC & Chemistry Diagram: 10/24/19 12:32 10/24/19 12:32 Medical Decision Making - Medical Decision Making 58 year old male with above PMH presented to ED for abdominal pain associated with nausea and bloody vomiting. Initial Vital Signs Temp Pulse Resp BP Pulse Ox 98.4 F 98 H 16 188/97 H 100 10/24/19 12:05 10/24/19 12:05 10/24/19 12:05 10/24/19 12:05 10/24/19 12:05 Afebrile. Tachycardic. No tachypnea. Hypertensive. No hypoxia on room air. EKG rate 89, regular rhythm, left axis, QTc 496, no acute ST changes. Medications ordered Morphine Injection - 4 mg IVPUSH ONCE ONE Ondansetron Injection [Zofran Injection] 4 mg IVPUSH ONCE ONE Pantoprazole Sodium [Protonix IV] 80 mg IVPUSH ONCE ONE Sodium Chloride [Normal Saline -] 1,000 ml IV ASDIR Imaging ordered ABDOMEN FLAT & UPRIGHT [RAD] Stat CHEST - PA [RAD] Stat CT abdomen/pelvis with IV contrast 10/24/19 14:16 Laboratory Last Values WBC 14.6 K/mm3 (4.0-10.0) H 10/24/19 12:32 RBC 3.86 M/mm3 (4.00-5.60) L 10/24/19 12:32 Hgb 11.2 GM/dL (11.7-16.9) L 10/24/19 12:32 Hct 34.7 % (35.4-49) L D 10/24/19 12:32 MCV 89.9 fl (80-96) 10/24/19 12:32 MCH 29.0 pg (25.7-33.7) 10/24/19 12:32 MCHC 32.3 g/dl (32.0-35.9) 10/24/19 12:32 RDW 16.1 % (11.9-15.9) H 10/24/19 12:32 Plt Count 291 K/MM3 (134-434) 10/24/19 12:32 MPV 9.5 fl (7.5-11.1) 10/24/19 12:32 Absolute Neuts (auto) 12.1 K/mm3 (1.5-8.0) H 10/24/19 12:32 Neutrophils % 82.8 % (42.8-82.8) 10/24/19 12:32 Lymphocytes % 11.2 % (8-40) D 10/24/19 12:32 Monocytes % 4.7 % (3.8-10.2) 10/24/19 12:32 Eosinophils % 0.1 % (0-4.5) D 10/24/19 12:32 Basophils % 1.2 % (0-2.0) 10/24/19 12:32 Nucleated RBC % 0 % (0-0) 10/24/19 12:32 Sodium 150 mmol/L (136-145) H 10/24/19 12:32 Potassium 3.1 mmol/L (3.5-5.1) L 10/24/19 12:32 Chloride 112 mmol/L (98-107) H 10/24/19 12:32 Carbon Dioxide 30 mmol/L (21-32) 10/24/19 12:32 Anion Gap 8 MMOL/L (8-16) 10/24/19 12:32 BUN 26.2 mg/dL (7-18) H 10/24/19 12:32 Creatinine 2.1 mg/dL (0.55-1.3) H 10/24/19 12:32 Est GFR (CKD-EPI)AfAm 39.59 10/24/19 12:32 Est GFR (CKD-EPI)NonAf 34.16 10/24/19 12:32 Random Glucose 175 mg/dL (74-106) H 10/24/19 12:32 Lactic Acid 1.8 mmol/L (0.4-2.0) 10/24/19 12:40 Calcium 8.8 mg/dL (8.5-10.1) 10/24/19 12:32 Magnesium 2.0 mg/dL (1.8-2.4) 10/24/19 12:32 Total Bilirubin 0.4 mg/dL (0.2-1) 10/24/19 12:32 AST 62 U/L (15-37) H 10/24/19 12:32 ALT 95 U/L (13-61) H 10/24/19 12:32 Alkaline Phosphatase 110 U/L (45-117) 10/24/19 12:32 Creatine Kinase 1275 U/L (26-308) H 10/24/19 12:32 Creatine Kinase Index 0.3 % (0.0-5.0) 10/24/19 12:32 CK-MB (CK-2) 4.2 ng/mL (0.5-3.6) H 10/24/19 12:32 Troponin I 0.06 ng/ml (0.00-0.05) H 10/24/19 12:32 Total Protein 5.5 g/dl (6.4-8.2) L 10/24/19 12:32 Albumin 2.2 g/dl (3.4-5.0) L 10/24/19 12:32 Lipase 73 U/L (73-393) 10/24/19 12:32 Alcohol, Quantitative < 3 mg/dL (0.0-5.0) 10/24/19 12:32 Blood Type O POSITIVE 10/24/19 12:40 Antibody Screen Negative 10/24/19 12:40 Leukocytosis with left shift. Normocytic anemia. Hypernatremia. Hypokalemia. -KCL 10 mEq x2 runs VAISHNAVI vs CKD. -Pt was IVF hydrated -Will proceed with contrast for potential acute abdomen -Will continue to IVF hydrate Transaminitis Elevated troponin -No ST change on EKG -Suspect demand -Will hold ASA Lipase wnl Upright CXR/Abdomen XR shows no free air. -Pending official report Medications ordered KCl 10 Meq Ivpb [Potassium Chloride 10 Meq Premix Ivpb -] 20 meq in 200 ml IVPB UD Normal saline 1000 cc bolus once 10/24/19 14:58 Abdomen XR report: Elza Jiménez Name: JAYDE MUSTAFA DEPARTMENT OF RADIOLOGY Phys: Bere Oodm RESIDENT : 1960 Age: 58 Sex: M [facility] Acct: [id number] Loc: [address] Exam Date: 10/24/19 Status: [place] [address] Unit Number: [id number] EXAM#: TYPE/EXAM: RESULT: [id number] RAD/ABDOMEN FLAT UPRIGHT HISTORY PROVIDED: Rule out perforation Supine and erect views of the abdomen demonstrate no evidence of free intra-abdominal air or bowel obstruction. There is a nonspecific bowel gas pattern with increased stool within the right colon and rectum. There is no evidence of abdominal masses, significant calcifications or organomegaly. Degenerative changes of the lumbar spine are noted as well. IMPRESSION: No evidence of pneumoperitoneum or acute pathology. Reported By: Manuel Finn MD 10/24/19 1437 BERE ODOM Technologist: Karen Hendricks Transcribed Date/Time: 10/24/191436 Watch Commander: Manuel Finn Printed Date/Time: By: CXR report: Elza Jiménez Name: JAYDE MUSTAFA DEPARTMENT OF RADIOLOGY Phys: Bere Odom RESIDENT : 1960 Age: 58 Sex: M [facility] Acct: [id number] Loc: [address] Exam Date: 10/24/19 [facility] Unit Number: [id number] EXAM#: TYPE/EXAM: RESULT: RAD/CHEST - PA HISTORY PROVIDED: Upper abdominal pain . A single AP projection of the chest is submitted. The heart size is within normal limits. The lung brush are free of pulmonary infiltrates or pleural effusions. IMPRESSION: Normal chest. Reported By: Manuel Finn MD 10/24/191431 BERE ODOM Technologist: Karen Hendricks Transcribed Date/Time: 10/24/19 143 Watch Commander: Manuel Finn Printed Date/Time: By: 10/24/19 15:11 CT report: Elza Jiménez Name: JAYDE MUSTAFA DEPARTMENT OF RADIOLOGY Phys: Bere Odom RESIDENT : 1960 Age: 58 Sex: M [facility] Acct: [id number] Loc: [address] Exam Date: 10/24/19 [facility] Unit Number: [id number] EXAM#: TYPE/EXAM: RESULT: CT/ABDOMEN PELVIS CT WITH CONTR HISTORY PROVIDED: Epigastric pain TECHNIQUE: Sequential axial images were obt ained from the domes of the diaphragm through the symphysis pubis f ollowing the administration of intravenous contrast material. The lung bases are clear of acute infiltrates or pleural effusions. Evaluation of the stomach is markedly limited without the use of any oral contrast. The stomach appears somewhat thickened, although this most likely is related to underfilling. There is also the suggestion of a small hiatal hernia. The liver, spleen, pancreas, adrenal glands and kidneys demonstrate no significant abnormalities. The gallbladder is clear. There is no evidence of intra-abdominal or retroperitoneal lymphadenopathy or fluid collections. There is no evidence of pneumoperitoneum, bowel obstruction or intra-abdominal abscess. There is no CT evidence of acute appendicitis or diverticulitis. Examination of the pelvis demonstrates a moderately distended urinary bladder. There is a moderate to large amount of retained fecal material throughout the colon and rectum. There is no evidence of pelvic masses, fluid collections or lymphadenopathy. There is no evidence of acute bony pathology. IMPRESSION: No evidence of acute pathology within the abdomen or pelvis. Please see above discussion. Reported By: Manuel Finn MD 10/24/19 1503 Pt to be admitted for intractable abdominal pain, gastroparesis. Discharge - Discharge Information Problems reviewed: Yes Clinical Impression/Diagnosis: Intractable abdominal pain, Gastroparesis, Hypernatremia, Hypokalemia, Transaminitis Condition: Stable - Admission Yes - Follow up/Referral Referrals: Dayday Frankel MD [Primary Care Provider] - - Patient Discharge Instructions - Post Discharge Activity
[2019-10-24] MEDS ORDERED: PANTOPRAZOLE SODIUM 40 MG VIAL IVPUSH ONE (12:10)
[2019-10-24] MEDS ORDERED: SODIUM CHLORIDE 1,000 ML IV STA ×2 (12:10→15:19)
[2019-10-24] MEDS ORDERED: ONDANSETRON 4 MG/2 ML VIAL IVPUSH ONE (12:10)
[2019-10-24] MEDS ORDERED: morphine CARPU-JECT 4 MG/1 ML DISP.SYRIN IVPUSH ONE (12:10)
[2019-10-24] MEDS ORDERED: morphine SULFATE 4 MG/ML VIAL ONE ×2 (12:29→20:40)
[2019-10-24 12:42] LABS: BASO % 1.2 % (0-2.0); EOS % 0.1 % (0-4.5); HEMATOCRIT 34.7 % (35.4-49); HEMOGLOBIN 11.2 GM/dL (11.7-16.9); LYMPH % 11.2 % (8-40); MCHC 32.3 g/dl (32.0-35.9); MEAN CELL VOLUME 89.9 fl (80-96); MEAN PLT VOLUME 9.5 fl (7.5-11.1); MONO % 4.7 % (3.8-10.2); NEUT % 82.8 % (42.8-82.8); PLATELET COUNT 291 K/MM3 (134-434); RBC 3.86 M/mm3 (4.00-5.60); RDW 16.1 % (11.9-15.9); WHITE BLOOD COUNT 14.6 K/mm3 (4.0-10.0)
[2019-10-24] MEDS ORDERED: PANTOPRAZOLE SODIUM 40 MG VIAL ONE ×2 (12:51→21:35)
[2019-10-24 13:28] LABS: ALBUMIN 2.2 g/dl (3.4-5.0); ALK PHOS 110 U/L (45-117); ANION GAP 8 MMOL/L (8-16); BILIRUBIN,TOTAL 0.4 mg/dL (0.2-1); BLOOD UREA NITROGEN 26.2 mg/dL (7-18); CALCIUM 8.8 mg/dL (8.5-10.1); CHLORIDE 112 mmol/L (98-107); CO2 30 mmol/L (21-32); CREATININE 2.1 mg/dL (0.55-1.3); GLUCOSE,RANDOM 175 mg/dL (74-106); LIPASE 73 U/L (73-393); POTASSIUM 3.1 mmol/L (3.5-5.1); SGOT/AST 62 U/L (15-37); SGPT/ALT 95 U/L (13-61); SODIUM 150 mmol/L (136-145); TOT PROT 5.5 g/dl (6.4-8.2)
[2019-10-24] MEDS ORDERED: POTASSIUM CHLORIDE 20 MEQ PREMIX IVPB 100 ML IVPB ONE (13:52)
[2019-10-24] MEDS ORDERED: KCL 10 MEQ IVPB 20 MEQ/200 ML INFUS.BAG IVPB ONE (14:24)
--- NOTE | 2019-10-24 15:19 | PDOC ---
Documentation entered by Yolis Ware SCRIBE, acting as scribe for Zoraida Irby MD. Zoraida Irby MD: This documentation has been prepared by the Chaz rubin Sydney, SCRIBE, under my direction and personally reviewed by me in its entirety. I confirm that the documentation accurately reflects all work, treatment, procedures, and medical decision making performed by me. Attending Attestation - Resident Resident Name: IleneBere - ED Attending Attestation I have performed the following: I have examined & evaluated the patient, The case was reviewed & discussed with the resident, I agree w/resident's findings & plan, Exceptions are as noted - HPI HPI: 10/24/19 13:28 Patient is a 58 year old male with a significant past medical history of DM II, gastroparesis, CKD, HTN, distal esophageal thickening, GIB who presents to the ED with two days of umbilical abdominal pain, vomiting and nausea. Patient endorses a constant stabbing periumbilical abdominal pain, which is exacerbated by movement with no alleviating factors. Reports multiple episodes of similar pain in the past. States multiple episodes of nb emesis, but reports 1 episode of <1 teaspoon blood mixed in emesis during most recent episode of vomiting. Denies dark or bloody stools. Patient denies headache, fever, chills, or SOB/chest pain. Denies any other symptoms. Allergies: NKDA - Physicial Exam PE: 10/24/19 13:28 Agree with resident exam - Medical Decision Making 10/24/19 15:13 58yo M hx MMP including gastropareisis, GIB presents to the ED with abdominal pain, N/V Multiple previous admissions for the same Initially diffuse abd pain ttp, but improved with medications CTAP negative for acute path likely exacerbation of gastropareisis labs remarkable for small trop leak, hypernatremia, hypokalemia Plan to admit for observation, further management of trop leak, metabolic disarray Discharge - Discharge Information Problems reviewed: Yes Clinical Impression/Diagnosis: Intractable abdominal pain, Gastroparesis, Hypernatremia, Hypokalemia, Transaminitis Condition: Stable - Follow up/Referral Referrals: Dayday Frankel MD [Primary Care Provider] - - Patient Discharge Instructions - Post Discharge Activity
[2019-10-24] MEDS: KCL 10 MEQ IVPB 10 MEQ/100 ML INFUS.BAG IVPB SCH ×2 (15:20→16:23)
--- NOTE | 2019-10-24 15:47 | HP ---
CHIEF COMPLAINT: Epigastric pains PCP: Dr Frankel HISTORY OF PRESENT ILLNESS: 58 year old AAM with known history of CHF, HTN, Diabetes mellitus type 1, CKD, GI bleeding, gastroparesis with history of multiple hospitalizations for maangement of symptoms who now again presents with 4 days history of epigastric pains, nausea, blood tinged vomitus which began today. Patient reports that he began having epigastric abdominal pain of 4 days' duration. He has not been able to take anything by mouth secondary to persistent heaving and vomiting. Denies diarrhea, constipation. Symptoms worsened to the point that he was forced to present to ED Recent Travel: denies PAST MEDICAL HISTORY: denies PAST SURGICAL HISTORY: denies Family history: unable to participate secondary to acute illness Social History: Smoking: denies Alcohol: denies Drugs: denies Allergies No Known Allergies Allergy (Verified 10/24/19 12:27) HOME MEDICATIONS: Home Medications Medication Instructions Recorded Insulin Glargine,Hum.rec.anlog 30 units SQ HS 06/26/15 [Lantus Solostar PEN -] Gabapentin 1 cap PO HS 05/02/19 Lipase/Protease/Amylase [Nena Hodge 1 cap PO TIDCM #90 capsule. 05/10/19 36,000 Units Capsule] Nifedipine ER [Procardia XL -] 90 mg PO DAILY #30 tab.er.24 05/10/19 Simethicone [Mylicon -] 80 mg PO QID PRN #120 tab.chew 05/10/19 Insulin Lispro [Humalog] See Protocol SQ TID #2 vial 10/10/19 Lisinopril 20 mg PO DAILY #30 tablet 10/10/19 Metoprolol Succinate 50 mg PO DAILY #30 tab.er.24h 10/10/19 Pantoprazole Sodium [Protonix] 40 mg PO DAILY #30 tablet. 10/10/19 Sucralfate [Carafate -] 1 gm PO BID 7 Days #14 tablet 10/10/19 Atorvastatin Ca [Lipitor] 40 mg PO HS 10/16/19 Acetaminophen Injection [Ofirmev 1,000 mg IVPB Q6H PRN vial 10/18/19 Injection -] Heparin - 5,000 unit SQ TID vial 10/18/19 Insulin Sliding Scale [Novolog 1 vial SQ ACHS units 10/18/19 Vial Sliding Scale -] Morphine Sulfate 4 mg IVPUSH Q4H PRN vial 10/18/19 REVIEW OF SYSTEMS unable to participate secondary to severe heaving/ acute illness PHYSICAL EXAMINATION Vital Signs - 24 hr 10/24/19 12:05 Temperature 98.4 F Pulse Rate 98 H Respiratory 16 Rate Blood Pressure 188/97 H O2 Sat by Pulse 100 Oximetry (%) GENERAL: Awake, alert, and fully oriented, in no acute distress. HEAD: Normal with no signs of trauma. EYES: Pupils equal, round and reactive to light, extraocular movements intact, sclera anicteric, conjunctiva clear. No lid lag. EARS, NOSE, THROAT: Ears normal, nares patent, oropharynx clear without exudates. Moist mucous membranes. NECK: Normal range of motion, supple without lymphadenopathy, JVD, or masses. LUNGS: Breath sounds equal, clear to auscultation bilaterally. No wheezes, and no crackles. No accessory muscle use. HEART: Regular rate and rhythm, normal S1 and S2 without murmur, rub or gallop. ABDOMEN: Soft, nontender, not distended, normoactive bowel sounds, no guarding, no rebound, no masses. No hepatomegaly or splenomegaly. MUSCULOSKELETAL: Normal range of motion at all joints. No bony deformities or tenderness. No CVA tenderness. UPPER EXTREMITIES: 2+ pulses, warm, well-perfused. No cyanosis. No clubbing. No peripheral edema. LOWER EXTREMITIES: 2+ pulses, warm, well-perfused. No calf tenderness. No peripheral edema. NEUROLOGICAL: Cranial nerves II-XII intact. Normal speech. Normal gait. PSYCHIATRIC: Cooperative. Good eye contact. Appropriate mood and affect. SKIN: Warm, dry, normal turgor, no rashes or lesions noted, normal capillary refill. Laboratory Results - last 24 hr 10/24/19 10/24/19 10/24/19 12:32 12:32 12:40 WBC 14.6 H RBC 3.86 L Hgb 11.2 L Hct 34.7 L D MCV 89.9 MCH 29.0 MCHC 32.3 RDW 16.1 H Plt Count 291 MPV 9.5 Absolute Neuts (auto) 12.1 H Neutrophils % 82.8 Lymphocytes % 11.2 D Monocytes % 4.7 Eosinophils % 0.1 D Basophils % 1.2 Nucleated RBC % 0 Sodium 150 H Potassium 3.1 L Chloride 112 H Carbon Dioxide 30 Anion Gap 8 BUN 26.2 H Creatinine 2.1 H Est GFR (CKD-EPI)AfAm 39.59 Est GFR (CKD-EPI)NonAf 34.16 Random Glucose 175 H Lactic Acid 1.8 Calcium 8.8 Magnesium 2.0 Total Bilirubin 0.4 AST 62 H ALT 95 H Alkaline Phosphatase 110 Creatine Kinase 1275 H Creatine Kinase Index 0.3 CK-MB (CK-2) 4.2 H Troponin I 0.06 H Total Protein 5.5 L Albumin 2.2 L Lipase 73 Alcohol, Quantitative < 3 Blood Type Antibody Screen 10/24/19 12:40 WBC RBC Hgb Hct MCV MCH MCHC RDW Plt Count MPV Absolute Neuts (auto) Neutrophils % Lymphocytes % Monocytes % Eosinophils % Basophils % Nucleated RBC % Sodium Potassium Chloride Carbon Dioxide Anion Gap BUN Creatinine Est GFR (CKD-EPI)AfAm Est GFR (CKD-EPI)NonAf Random Glucose Lactic Acid Calcium Magnesium Total Bilirubin AST ALT Alkaline Phosphatase Creatine Kinase Creatine Kinase Index CK-MB (CK-2) Troponin I Total Protein Albumin Lipase Alcohol, Quantitative Blood Type O POSITIVE Antibody Screen Negative CT scan abdomen negative ASSESSMENT/PLAN: 1. Nausea, vomiting, epigastric pains - Ddx: Gastroparesis, PUD - NPO for now - IVF - reglan - QTC 496. will avoid zofran/QTC prolonging agents - ativan with dexamethasone prn for nausea/vomiting in lieu of QTC prolonging agents - EKG in am - GI service [phone]. - PPI IV 2. Hypernatremia from dehydration - IVF - recheck in am 3. Hypokalemia - replace and recheck in am - check magnesium in the am 4. Leukocytosis, ?etio - send UA, urine culture, blood culture - may be reactive from severe heaving episodes - anti-emetics - recheck CBC in the am - observe today; low threshold start antibiotics if indication arises 5. SCD for DVT prophylaxis Reached out to pharmacies on record. [facility] does not have record of his meds anymore. Mother called and only knows he is on insulin lisinopril but unaware of dose. Unaware of other meds. Visit type - Emergency Visit Emergency Visit: Yes ED Registration Date: 10/24/19 Care time: The patient presented to the Emergency Department on the above date and was hospitalized for further evaluation of their emergent condition. - New Patient This patient is new to me today: Yes Date on this admission: 10/25/19 - Critical Care Critical Care patient: No
[2019-10-24] MEDS ORDERED: SODIUM CHLORIDE 1,000 ML IV SCH (16:00)
[2019-10-24] MEDS ORDERED: LORazepam 2 MG/ML SDV VIAL IM PRN (16:16)
[2019-10-24] MEDS ORDERED: DEXAMETHASONE SOD PHOSPHATE 4 MG/1 ML VIAL IVPUSH PRN (16:17)
--- NOTE | 2019-10-24 17:35 | EKG ---
Test Reason : Blood Pressure : / mmHG Vent. Rate : 089 BPM Atrial Rate : 089 BPM P-R Int : 182 ms QRS Dur : 102 ms QT Int : 408 ms P-R-T Axes : 061 -48 050 degrees QTc Int : 496 ms NORMAL SINUS RHYTHM LEFT ANTERIOR FASCICULAR BLOCK PROLONGED QT ABNORMAL ECG WHEN COMPARED WITH ECG OF 16-OCT-2019 16:14, INCOMPLETE RIGHT BUNDLE BRANCH BLOCK IS NO LONGER PRESENT CRITERIA FOR ANTEROSEPTAL INFARCT ARE NO LONGER PRESENT Confirmed by FAYE CHILD MD ([id number]) on 10/24/2019 5:34:42 PM Referred By: Confirmed By:FAYE CHILD MD
--- NOTE | 2019-10-24 18:48 | CONSULT ---
Consult Consult Specialty:: Nephrology Reason for Consultation:: ckd and hypernatremia - History of Present Illness Chief Complaint: nausea and vomiting History of Present Illness: Pt is a 58 year old male with pmhx of chf, htn, ckd, gastroparesis, dm, gi bleed who presents with nausea and vomiting. He has had the symptoms for about 4 days. He complains of weakness and decreased appetite. He was fount to be hypernatremic and hypokalemic. He denies chest pain. He denies dysuria or hematuria. He was recently discharged this month. - History Source History Provided By: Patient, Medical Record - Past Medical History Cardio/Vascular: Yes: CHF (diastolic ), HTN Gastrointestinal: Yes: GI Bleed Renal/: Yes: Renal Inusuff Psych: Yes: Anxiety, Depression Endocrine: Yes: Diabetes Mellitus (DM II) - Alcohol/Substance Use Hx Alcohol Use: No History of Substance Use: reports: None - Smoking History Smoking history: Never smoked Have you smoked in the past 12 months: No - Social History ADL: Independent History of Recent Travel: No Home Medications - Allergies Allergies/Adverse Reactions: Allergies Allergy/AdvReac Type Severity Reaction Status Date / Time No Known Allergies Allergy Verified 10/24/19 12:27 - Home Medications Home Medications: Ambulatory Orders Insulin Glargine,Hum.rec.anlog [Lantus Solostar PEN -] 30 units SQ HS 06/26/15 Gabapentin 1 cap PO HS 05/02/19 Lipase/Protease/Amylase [Nena Hodge 36,000 Units Capsule] 1 cap PO TIDCM #90 capsule. 05/10/19 Nifedipine ER [Procardia XL -] 90 mg PO DAILY #30 tab.er.24 05/10/19 Simethicone [Mylicon -] 80 mg PO QID PRN #120 tab.chew 05/10/19 Insulin Lispro [Humalog] See Protocol SQ TID #2 vial 10/10/19 Lisinopril 20 mg PO DAILY #30 tablet 10/10/19 Metoprolol Succinate 50 mg PO DAILY #30 tab.er.24h 10/10/19 Pantoprazole Sodium [Protonix] 40 mg PO DAILY #30 tablet. 10/10/19 Sucralfate [Carafate -] 1 gm PO BID 7 Days #14 tablet 10/10/19 Atorvastatin Ca [Lipitor] 40 mg PO HS 10/16/19 Acetaminophen Injection [Ofirmev Injection -] 1,000 mg IVPB Q6H PRN vial 10/18/19 Heparin - 5,000 unit SQ TID vial 10/18/19 Insulin Sliding Scale [Novolog Vial Sliding Scale -] 1 vial SQ ACHS units 10/18/19 Morphine Sulfate 4 mg IVPUSH Q4H PRN vial 10/18/19 Family Medical History Family History: Denies Review of Systems - Review of Systems Constitutional: reports: Malaise Eyes: reports: No Symptoms HENT: reports: No Symptoms Neck: reports: No Symptoms Cardiovascular: reports: No Symptoms Respiratory: reports: No Symptoms Gastrointestinal: reports: Nausea, Vomiting Genitourinary: reports: No Symptoms Musculoskeletal: reports: No Symptoms Integumentary: reports: No Symptoms Neurological: reports: No Symptoms Endocrine: reports: No Symptoms Hematology/Lymphatic: reports: No Symptoms Psychiatric: reports: No Symptoms Physical Exam Vital Signs: Vital Signs Temperature 97.7 F 10/24/19 18:19 Pulse Rate 88 10/24/19 18:19 Respiratory Rate 16 10/24/19 12:05 Blood Pressure 197/107 H 10/24/19 18:19 O2 Sat by Pulse Oximetry (%) 100 10/24/19 18:19 Constitutional: Yes: Calm Eyes: Yes: Conjunctiva Clear HENT: Yes: Atraumatic Cardiovascular: Yes: S1, S2 Respiratory: Yes: CTA Bilaterally Gastrointestinal: Yes: Soft Renal/: Yes: WNL Musculoskeletal: Yes: WNL Edema: Yes Edema: LLE: 1+, RLE: 1+ Neurological: Yes: Oriented Psychiatric: Yes: Oriented Labs: CBC, BMP 10/24/19 12:32 10/24/19 12:32 Imaging - Results Cat Scan: Report Reviewed Problem List - Problems (1) Gastroparesis Code(s): K31.84 - GASTROPARESIS (2) Hypernatremia Code(s): E87.0 - HYPEROSMOLALITY AND HYPERNATREMIA (3) Hypokalemia Code(s): E87.6 - HYPOKALEMIA (4) Abdominal pain Code(s): R10.9 - UNSPECIFIED ABDOMINAL PAIN (5) Diabetes Code(s): E11.9 - TYPE 2 DIABETES MELLITUS WITHOUT COMPLICATIONS Assessment/Plan Current Medications Generic Name Dose Route Start Last Admin Trade Name Freq PRN Reason Stop Dose Admin Dexamethasone Sodium Phosphate 4 mg 10/24/19 16:17 Decadron Injection - IVPUSH Q6H PRN nausea and vomiting Sodium Chloride 1,000 mls @ 83 mls/hr 10/24/19 16:00 10/24/19 16:23 Normal Saline - IV 10/28/19 04:03 83 mls/hr ASDIR PAVEL Administration Lorazepam 1 mg 10/24/19 16:16 Ativan Injection - IM 10/26/19 16:15 Q6H PRN nausea and vomiting Metoclopramide HCl 10 mg 10/24/19 22:00 Reglan Injection - IVPUSH 10/26/19 21:59 TID PAVEL Pantoprazole Sodium 40 mg 10/24/19 22:00 Protonix Iv IVPUSH BID PAVEL Impression 1. vomiting 2. HTN 3. DM 4. anemia 5. bph 6. CKD 7. gastroparesis 8. hypokalemia 9. hypernatremia 10. hx covid 11. mild rhabdo Plan - change fluids to 1/2 ns with potassium - monitor sodium - check mag level - repeat cpk in am - pt has repeat admission for pain and vomiting - GI eval - will follow - discussed with ER - ct abd negative - check ua
[2019-10-24 19:20] LABS: EPI CELLS 7 /uL (0-25.1); HYALINE CASTS 0 /uL (0-3.1); PH,URINE >= 9.0 (5.0-8.0); URINE APPEARANCE CLEAR; URINE BACTERIA 11 /uL (0-1359); URINE BILIRUBIN NEGATIVE (NEGATIVE); URINE COLOR YELLOW; URINE GLUCOSE (UA) TRACE (NEGATIVE); URINE KETONE NEGATIVE (NEGATIVE); URINE LEUK ESTERASE NEGATIVE (NEGATIVE); URINE NITRITE NEGATIVE (NEGATIVE); URINE PROTEIN 4+ (NEGATIVE); URINE RBC 17 /uL (0-23.9); URINE UROBILINOGEN 0.2 mg/dL (0.2-1.0); URINE WBC 3 /uL (0-25.8)
[2019-10-24] MEDS ORDERED: NIFEdipine E.R. 30 MG TABLET ONE (19:32)
[2019-10-24] MEDS ORDERED: LISINOPRIL 20 MG TABLET (FP) ONE (19:32)
[2019-10-24] MEDS: LISINOPRIL 20 MG TABLET (FP) PO SCH (20:07)
[2019-10-24] MEDS: NIFEdipine E.R. 90 MG TABLET PO SCH (20:07)
[2019-10-24] MEDS: SODIUM CHLORIDE 0.45%/POT 20 MEQ/1,000 ML INFUS.BAG IV SCH (20:16)
[2019-10-24 20:33] LABS: COCAINE, UR NEGATIVE ng/ml (CUTOFF=300); METHADONE, UR NEGATIVE ng/ml (CUTOFF=300); PHENCYCLIDINE,URINE NEGATIVE ng/ml (CUTOFF=25); URINE BARBITURATES NEGATIVE ng/ml (CUTOFF=200); URINE BENZODIAZEPINES NEGATIVE ng/ml (CUTOFF=200)
[2019-10-24 20:34] LABS: URINE AMPHETAMINES NEGATIVE ng/ml (CUTOFF=500)
[2019-10-24] MEDS ORDERED: morphine SULFATE 4 MG/ML VIAL IVPUSH ONE (20:34)
[2019-10-24 20:35] LABS: OPIATES, URI POSITIVE ng/ml (CUTOFF=300)
[2019-10-24] MEDS ORDERED: DEXAMETHASONE SOD PHOSPHATE 4 MG/1 ML VIAL ONE (20:46)
[2019-10-24] MEDS ORDERED: METOCLOPRAMIDE HCL INJECTION 10 MG/2 ML VIAL ONE (21:34)
[2019-10-24] MEDS: METOCLOPRAMIDE HCL INJECTION 10 MG/2 ML VIAL IVPUSH SCH (21:50)
[2019-10-24] MEDS: PANTOPRAZOLE SODIUM 40 MG VIAL IVPUSH SCH (21:50)
[2019-10-25 00:55] LABS: EPI CELLS 4 /uL (0-25.1); HYALINE CASTS 0 /uL (0-3.1); PH,URINE >= 9.0 (5.0-8.0); URINE APPEARANCE CLEAR; URINE BACTERIA 9 /uL (0-1359); URINE BILIRUBIN NEGATIVE (NEGATIVE); URINE COLOR YELLOW; URINE GLUCOSE (UA) TRACE (NEGATIVE); URINE KETONE NEGATIVE (NEGATIVE); URINE LEUK ESTERASE NEGATIVE (NEGATIVE); URINE NITRITE NEGATIVE (NEGATIVE); URINE PROTEIN 4+ (NEGATIVE); URINE RBC 16 /uL (0-23.9); URINE UROBILINOGEN 0.2 mg/dL (0.2-1.0); URINE WBC 3 /uL (0-25.8)
[2019-10-25 03:10] VITALS: BMI 24.0
[2019-10-25] MEDS: METOCLOPRAMIDE HCL INJECTION 10 MG/2 ML VIAL IVPUSH SCH ×3 (06:03→21:15)
[2019-10-25] MEDS: SODIUM CHLORIDE 0.45%/POT 20 MEQ/1,000 ML INFUS.BAG IV SCH (06:04)
--- NOTE | 2019-10-25 07:28 | PN ---
Progress Note (short form) - Note Progress Note: Consult placed for me. I microblogged Dr. Zamarripa and explained that Mr. Peguero is a patient of Dr. Manuel's and that he should be contacted for further evaluation.
[2019-10-25 09:56] LABS: POTASSIUM 3.3 mmol/L (3.5-5.1)
[2019-10-25 09:59] LABS: MAGNESIUM 1.8 mg/dL (1.8-2.4)
[2019-10-25 10:06] LABS: BILIRUBIN,TOTAL 0.3 mg/dL (0.2-1); BLOOD UREA NITROGEN 22.5 mg/dL (7-18); TOT PROT 4.8 g/dl (6.4-8.2)
[2019-10-25] MEDS ORDERED: PT OWN MED DRAWER 7, Y5N ONE ×2 (10:34→13:44)
[2019-10-25] MEDS: PANTOPRAZOLE SODIUM 40 MG VIAL IVPUSH SCH ×2 (10:40→21:15)
[2019-10-25] MEDS: LISINOPRIL 20 MG TABLET (FP) PO SCH (10:43)
[2019-10-25] MEDS: NIFEdipine E.R. 90 MG TABLET PO SCH ×2 (10:44→13:54)
--- NOTE | 2019-10-25 12:52 | PN ---
Progress Note, Physician History of Present Illness: Pt seen and examined at bedside. He is awake and more alert. He is asking for jello and is thirsty. He feels nausea is improving. - Current Medication List Current Medications: Active Medications Dexamethasone Sodium Phosphate (Decadron Injection -) 4 mg IVPUSH Q6H PRN PRN Reason: nausea and vomiting Last Admin: 10/24/19 20:56 Dose: 4 mg Documented by: Potassium Chloride/Sodium Chloride (1/2ns+20meq Kcl) 20 meq in 1,000 mls @ 83 mls/hr IV ASDIR [facility] Last Admin: 10/25/19 06:04 Dose: 83 mls/hr Documented by: Lisinopril (Prinivil) 20 mg PO DAILY [facility] Last Admin: 10/25/19 10:43 Dose: 20 mg Documented by: Lorazepam (Ativan Injection -) 1 mg IM Q6H PRN PRN Reason: nausea and vomiting Stop: 10/26/19 16:15 Last Admin: 10/25/19 08:10 Dose: 1 mg Documented by: Metoclopramide HCl (Reglan Injection -) 10 mg IVPUSH TID [facility] Stop: 10/26/19 21:59 Last Admin: 10/25/19 06:03 Dose: 10 mg Documented by: Metoprolol Succinate (Toprol Xl -) 50 mg PO DAILY [facility] Last Admin: 10/25/19 10:43 Dose: 50 mg Documented by: Nifedipine (Procardia Xl -) 90 mg PO DAILY [facility] Last Admin: 10/25/19 10:44 Dose: Not Given Documented by: Pantoprazole Sodium (Protonix Iv) 40 mg IVPUSH BID [facility] Last Admin: 10/25/19 10:40 Dose: 40 mg Documented by: - Objective Vital Signs: Vital Signs Temperature 98.7 F 10/25/19 08:37 Pulse Rate 92 H 10/25/19 08:37 Respiratory Rate 20 10/25/19 08:37 Blood Pressure 159/100 10/25/19 08:37 O2 Sat by Pulse Oximetry (%) 97 10/25/19 09:00 Constitutional: Yes: Calm Eyes: Yes: Conjunctiva Clear HENT: Yes: Atraumatic Neck: Yes: Supple Cardiovascular: Yes: S1, S2 Respiratory: Yes: CTA Bilaterally Gastrointestinal: Yes: Soft Genitourinary: Yes: WNL Edema: Yes Edema: LLE: 1+, RLE: 1+ Neurological: Yes: Oriented Psychiatric: Yes: Oriented Labs: CBC, BMP 10/24/19 12:32 10/25/19 08:40 Problem List - Problems (1) Gastroparesis Code(s): K31.84 - GASTROPARESIS (2) Hypernatremia Code(s): E87.0 - HYPEROSMOLALITY AND HYPERNATREMIA (3) Hypokalemia Code(s): E87.6 - HYPOKALEMIA (4) Abdominal pain Code(s): R10.9 - UNSPECIFIED ABDOMINAL PAIN (5) Diabetes Code(s): E11.9 - TYPE 2 DIABETES MELLITUS WITHOUT COMPLICATIONS Assessment/Plan Current Medications Generic Name Dose Route Start Last Admin Trade Name Freq PRN Reason Stop Dose Admin Dexamethasone Sodium Phosphate 4 mg 10/24/19 16:17 10/24/19 20:56 Decadron Injection - IVPUSH 4 mg Q6H PRN Administration nausea and vomiting Potassium Chloride/Sodium Chloride 20 meq in 1,000 mls @ 83 mls/hr 10/24/19 19:00 10/25/19 06:04 1/2ns+20meq Kcl IV 83 mls/hr ASDIR PAVEL Administration Lisinopril 20 mg 10/24/19 19:00 10/25/19 10:43 Prinivil PO 20 mg DAILY PAVEL Administration Lorazepam 1 mg 10/24/19 16:16 10/25/19 08:10 Ativan Injection - IM 10/26/19 16:15 1 mg Q6H PRN Administration nausea and vomiting Metoclopramide HCl 10 mg 10/24/19 22:00 10/25/19 06:03 Reglan Injection - IVPUSH 10/26/19 21:59 10 mg TID PAVEL Administration Metoprolol Succinate 50 mg 10/24/19 19:00 10/25/19 10:43 Toprol Xl - PO 50 mg DAILY PAVEL Administration Nifedipine 90 mg 10/24/19 19:00 10/25/19 10:44 Procardia Xl - PO Not Given DAILY PAVEL Pantoprazole Sodium 40 mg 10/24/19 22:00 10/25/19 10:40 Protonix Iv IVPUSH 40 mg BID PAVEL Administration Laboratory Tests 10/25/19 10/25/19 08:40 08:40 Sodium 151 H Potassium 3.3 L Chloride 113 H Magnesium 1.8 Impression 1. vomiting 2. HTN 3. DM 4. anemia 5. bph 6. CKD 7. gastroparesis 8. hypokalemia 9. hypernatremia 10. hx covid 11. mild rhabdo Plan - sodium rising - change fluids to d5w with potassium - called and discussed with GI, will start clears - repeat labs in am - possible transfer to tertiary care center - ct abd negative - ua with 4 plus protein, cont with lisinopril
[2019-10-25] MEDS ORDERED: POTASSIUM CHLORIDE ORAL LIQUID 20 MEQ/15 ML PO ONE (12:53)
[2019-10-25] MEDS ORDERED: DEXTROSE 5%-WATER - 1,000 ML with POTASSIUM CHLORIDE 20 MEQ IVPB SCH (13:00)
--- NOTE | 2019-10-25 13:16 | PN ---
Teaching Attending Note Name of Resident: Cesilia Izaguirre ATTENDING PHYSICIAN STATEMENT I saw and evaluated the patient. I reviewed the resident's note and discussed the case with the resident. I agree with the resident's findings and plan as documented. SUBJECTIVE: Seen and examined at bedside. Patient reports after transfer to [facility] after last admission here he tested positive for COVID at [facility] so he was discharged without performing the balloon enteroscopy. He is stating he is feeling slightly better now and is asking for clears OBJECTIVE: Last Vital Signs Temp Pulse Resp BP Pulse Ox 98.7 F 92 H 20 159/100 97 10/25/19 08:37 10/25/19 08:37 10/25/19 08:37 10/25/19 08:37 10/25/19 09:00 PE: Per resident note Labs/Imaging: reviewed ASSESSMENT AND PLAN: This patient is a 58yom with PMHx of IDDM, HTN, BPH, CKD, anemia and iwona lara tears , hx of gastroparesis with multiple admissions in the last month who presents with an abdominal pain with nausea and vomiting. #Acute on chronic abdominal pain : -pt with multiple recent admissions. Was sent to [facility] after last visit for balloon enteroscopy but tested positive for COVID as per patient while in the hospital and the procedure was canceled. Dr. Norman consulted Symptomatic management We will attempt transfer back to [facility] for procedure pending COVID test -clear diet #hypernatremia -Switch fluids to D5W with K+ #Rhabdo -continue fluids -trend cpk #HTN : echo with severe concentric LVH, close BP monitoring #CKD: stable -will monitor #Diastolic CHF: -continue coreg/lisinopril #hypokalemia: continue to replete #hyperlipidemia: continue lipitor #COVID negative DVT Px: Heparin
--- NOTE | 2019-10-25 16:45 | PN ---
Physical Exam: SUBJECTIVE: Patient seen and examined. No acute events states he is in a lot of pain in his belly. Denies any diarrhea but admits to nonbloody emesis. OBJECTIVE: Vital Signs Period Temp Pulse Resp BP Sys/Aceves Pulse Ox Last 24 Hr 97.6 F-98.7 F 75-92 18-20 148-200/78-111 97-100 GENERAL: The patient is awake, alert, and fully oriented, in no acute distress. LUNGS: Breath sounds equal, clear to auscultation bilaterally, no wheezes, no crackles, no accessory muscle use. HEART: Regular rate and rhythm, S1, S2 without murmur, rub or gallop. ABDOMEN: Soft, ttp diffusely, guarding present, nontympanitic EXTREMITIES: 2+ pulses, warm, well-perfused, no edema. Laboratory Results - last 24 hr 10/24/19 10/24/19 10/24/19 18:40 18:55 18:55 Sodium Potassium Chloride Carbon Dioxide Anion Gap BUN Creatinine Est GFR (CKD-EPI)AfAm Est GFR (CKD-EPI)NonAf Random Glucose Calcium Magnesium 1.9 Total Bilirubin AST ALT Alkaline Phosphatase Creatine Kinase Creatine Kinase Index CK-MB (CK-2) Total Protein Albumin Urine Color Yellow Urine Appearance Clear Urine pH >= 9.0 H Ur Specific Cavalier 1.020 Urine Protein 4+ H Urine Glucose (UA) Trace Urine Ketones Negative Urine Blood Trace Urine Nitrite Negative Urine Bilirubin Negative Urine Urobilinogen 0.2 Ur Leukocyte Esterase Negative Urine WBC (Auto) 3 Urine RBC (Auto) 17 Urine Casts (Auto) 0 U Epithel Cells (Auto) 7 Urine Bacteria (Auto) 11 Opiates Screen Positive A* Methadone Screen Negative Barbiturate Screen Negative Phencyclidine Screen Negative Ur Amphetamines Screen Negative MDMA (Ecstasy) Screen Negative Benzodiazepines Screen Negative Cocaine Screen Negative U Marijuana (THC) Screen Negative 10/25/19 10/25/19 10/25/19 00:42 08:40 08:40 Sodium 151 H Potassium 3.3 L Chloride 113 H Carbon Dioxide 29 Anion Gap 9 BUN 22.5 H Creatinine 2.0 H Est GFR (CKD-EPI)AfAm 41.99 Est GFR (CKD-EPI)NonAf 36.23 Random Glucose 147 H Calcium 8.0 L Magnesium 1.8 Total Bilirubin 0.3 AST 42 H ALT 64 H Alkaline Phosphatase 98 Creatine Kinase 1001 H Creatine Kinase Index 0.3 CK-MB (CK-2) 3.7 H Total Protein 4.8 L Albumin 2.0 L Urine Color Yellow Urine Appearance Clear Urine pH >= 9.0 H Ur Specific [place] 1.023 Urine Protein 4+ H Urine Glucose (UA) Trace Urine Ketones Negative Urine Blood Trace Urine Nitrite Negative Urine Bilirubin Negative Urine Urobilinogen 0.2 Ur Leukocyte Esterase Negative Urine WBC (Auto) 3 Urine RBC (Auto) 16 Urine Casts (Auto) 0 U Epithel Cells (Auto) 4 Urine Bacteria (Auto) 9 Opiates Screen Methadone Screen Barbiturate Screen Phencyclidine Screen Ur Amphetamines Screen MDMA (Ecstasy) Screen Benzodiazepines Screen Cocaine Screen U Marijuana (THC) Screen Active Medications Generic Name Dose Route Start Last Admin Trade Name Freq PRN Reason Stop Dose Admin Dexamethasone Sodium Phosphate 4 mg 10/24/19 16:17 10/24/19 20:56 Decadron Injection - IVPUSH 4 mg Q6H PRN Administration nausea and vomiting Potassium Chloride 20 meq/ 1,010 mls @ 65 mls/hr 10/25/19 13:00 Dextrose IVPB .[id number] PAVEL Lisinopril 20 mg 10/24/19 19:00 10/25/19 10:43 Prinivil PO 20 mg DAILY PAVEL Administration Lorazepam 1 mg 10/24/19 16:16 10/25/19 08:10 Ativan Injection - IM 10/26/19 16:15 1 mg Q6H PRN Administration nausea and vomiting Metoclopramide HCl 10 mg 10/24/19 22:00 10/25/19 13:54 Reglan Injection - IVPUSH 10/26/19 21:59 10 mg TID PAVEL Administration Metoprolol Succinate 50 mg 10/24/19 19:00 10/25/19 10:43 Toprol Xl - PO 50 mg DAILY PAVEL Administration Nifedipine 90 mg 10/24/19 19:00 10/25/19 13:54 Procardia Xl - PO 90 mg DAILY P[facility]EL Administration Pantoprazole Sodium 40 mg 10/24/19 22:00 10/25/19 10:40 Protonix Iv IVPUSH 40 mg BID PAVEL Administration ASSESSMENT/PLAN: This patient is a 58yom with PMHx of IDDM, HTN, BPH, CKD, anemia and iwona lara tears , hx of gastroparesis with multiple admissions in the last month who presents with an abdominal pain with nausea and vomiting. #Acute on chronic diffuse abdominal pain -pt with multiple recent admissions. Was sent to [facility] after last visit for balloon enteroscopy but tested positive for COVID as per patient while in the hospital and the procedure was canceled. Dr. Manuel consulted Symptomatic management We will transfer back to [facility] for procedure pending COVID test as pt states he was dc'd due to being covid positive and they would not do double balloon enteroscopy. Pt having symptomatic anemia with mesenteric edema and EGD/colon done by Dr. Manuel without any acute findings suggestive of the area in between them as possible source so baloon enteroscopy will help visualize the area a normal endoscope does not reach. DR. Mic Jordan is aware of transfer when covid negative and willing to accept pt. -clear liquid diet #hypernatremia -Switch fluids to D5W with K+ as per renal ([place]) #Rhabdo -continue fluids -trend cpk #HTN : echo with severe concentric LVH, close BP monitoring #CKD: - stable -will monitor #Diastolic CHF: -continue coreg/lisinopril #hypokalemia: - continue to replete #hyperlipidemia: - continue lipitor #COVID rule out pending however pt states he was positive at [facility] week ago. DVT Px: Heparin Visit type - Emergency Visit Emergency Visit: Yes ED Registration Date: 10/24/19 Care time: The patient presented to the Emergency Department on the above date and was hospitalized for further evaluation of their emergent condition. - New Patient This patient is new to me today: Yes Date on this admission: 10/25/19 - Critical Care Critical Care patient: No - Discharge Referral Referred to [facility] Med P.C.: No ATTENDING PHYSICIAN STATEMENT I saw and evaluated the patient. I reviewed the resident's note and discussed the case with the resident. I agree with the resident's findings and plan as documented. SUBJECTIVE: OBJECTIVE: ASSESSMENT AND PLAN:
[2019-10-25] MEDS: POTASSIUM CHLORIDE 20 MEQ in DEXTROSE 5%-WATER - 1,000 ML IVPB SCH (18:18)
--- NOTE | 2019-10-25 20:09 | PN.GI ---
GI Progress Note Subjective: Above events reviewed, patient noted to have oersistent abdominalpain and anemia. Previous GI w/u EGD and colonoscopy a few months ago reveal no active bleeding. Furhter w/u of intractable abdominal pain and new onset of anemia was deferred because of COVID. - Objective Vital Signs: Vital Signs Temperature 99 F 10/25/19 18:00 Pulse Rate 80 10/25/19 18:00 Respiratory Rate 20 10/25/19 18:00 Blood Pressure 160/97 10/25/19 18:00 O2 Sat by Pulse Oximetry (%) 97 10/25/19 09:00 Constitutional: No Distress Eyes: Yes: Conjunctiva Clear HENT: Yes: Atraumatic Neck: Yes: Trachea Midline Cardiovascular: Yes: Regular Rate and Rhythm Respiratory: Yes: CTA Bilaterally ...Palpate: Yes: Soft, Tenderness (--diffue). No: Firm/Rigid, Guarding, Hepatomegaly, Mass, Pulsatile Mass Labs: CBC, BMP 10/24/19 12:32 10/25/19 08:40 CBCD WBC 14.6 K/mm3 (4.0-10.0) H 10/24/19 12:32 RBC 3.86 M/mm3 (4.00-5.60) L 10/24/19 12:32 Hgb 11.2 GM/dL (11.7-16.9) L 10/24/19 12:32 Hct 34.7 % (35.4-49) L D 10/24/19 12:32 MCV 89.9 fl (80-96) 10/24/19 12:32 MCHC 32.3 g/dl (32.0-35.9) 10/24/19 12:32 RDW 16.1 % (11.9-15.9) H 10/24/19 12:32 Plt Count 291 K/MM3 (134-434) 10/24/19 12:32 MPV 9.5 fl (7.5-11.1) 10/24/19 12:32 CMP Sodium 151 mmol/L (136-145) H 10/25/19 08:40 Potassium 3.3 mmol/L (3.5-5.1) L 10/25/19 08:40 Chloride 113 mmol/L (98-107) H 10/25/19 08:40 Carbon Dioxide 29 mmol/L (21-32) 10/25/19 08:40 Anion Gap 9 MMOL/L (8-16) 10/25/19 08:40 BUN 22.5 mg/dL (7-18) H 10/25/19 08:40 Creatinine 2.0 mg/dL (0.55-1.3) H 10/25/19 08:40 Calcium 8.0 mg/dL (8.5-10.1) L 10/25/19 08:40 Total Bilirubin 0.3 mg/dL (0.2-1) 10/25/19 08:40 AST 42 U/L (15-37) H 10/25/19 08:40 ALT 64 U/L (13-61) H 10/25/19 08:40 Alkaline Phosphatase 98 U/L (45-117) 10/25/19 08:40 Total Protein 4.8 g/dl (6.4-8.2) L 10/25/19 08:40 Albumin 2.0 g/dl (3.4-5.0) L 10/25/19 08:40 Problem List - Problems (1) Intractable abdominal pain Assessment/Plan: R> continue IV hydration IV pantoprazole for possible transfer if COVID negative Code(s): R10.9 - UNSPECIFIED ABDOMINAL PAIN
[2019-10-26] MEDS: METOCLOPRAMIDE HCL INJECTION 10 MG/2 ML VIAL IVPUSH SCH ×2 (05:35→14:01)
[2019-10-26 08:32] LABS: BASO % 0.3 % (0-2.0); EOS % 0.9 % (0-4.5); HEMOGLOBIN 8.3 GM/dL (11.7-16.9); LYMPH % 21.2 % (8-40); MCHC 33.3 g/dl (32.0-35.9); MEAN CELL VOLUME 90.2 fl (80-96); MEAN PLT VOLUME 9.3 fl (7.5-11.1); MONO % 7.7 % (3.8-10.2); NEUT % 69.9 % (42.8-82.8); PLATELET COUNT 205 K/MM3 (134-434); RBC 2.77 M/mm3 (4.00-5.60); RDW 15.5 % (11.9-15.9); WHITE BLOOD COUNT 12.6 K/mm3 (4.0-10.0)
[2019-10-26 08:34] LABS: ALBUMIN 1.7 g/dl (3.4-5.0); BILIRUBIN,TOTAL 0.3 mg/dL (0.2-1); BLOOD UREA NITROGEN 23.6 mg/dL (7-18); CALCIUM 7.5 mg/dL (8.5-10.1); CREATININE 2.2 mg/dL (0.55-1.3); POTASSIUM 3.5 mmol/L (3.5-5.1); TOT PROT 4.2 g/dl (6.4-8.2)
--- NOTE | 2019-10-26 10:01 | PN ---
Physical Exam: SUBJECTIVE: Patient seen and examined. States he s feeling a little better today. No acute complaints, denies n/v/d,cp/sob. OBJECTIVE: Vital Signs Period Temp Pulse Resp BP Sys/Aceves Pulse Ox Last 24 Hr 98 F-99 F 74-80 18-20 123-200/64-111 98 GENERAL: The patient is awake, alert, and fully oriented, in no acute distress. LUNGS: Breath sounds equal, clear to auscultation bilaterally, no wheezes, no crackles, no accessory muscle use. HEART: Regular rate and rhythm, S1, S2 without murmur, rub or gallop. ABDOMEN: Soft, minimally ttp diffusely, guarding present, nontympanitic EXTREMITIES: 2+ pulses, warm, well-perfused, unilateral swelling RLE nonpitting. Laboratory Results - last 24 hr 10/25/19 10/25/19 10/26/19 08:40 08:40 07:45 WBC 12.6 H RBC 2.77 L Hgb 8.3 L Hct 25.0 L D MCV 90.2 MCH 30.0 MCHC 33.3 RDW 15.5 Plt Count 205 D MPV 9.3 Absolute Neuts (auto) 8.8 H Neutrophils % 69.9 Lymphocytes % 21.2 D Monocytes % 7.7 Eosinophils % 0.9 D Basophils % 0.3 Nucleated RBC % 0 Sodium Potassium Chloride Carbon Dioxide 29 Anion Gap 9 BUN 22.5 H Creatinine 2.0 H Est GFR (CKD-EPI)AfAm 41.99 Est GFR (CKD-EPI)NonAf 36.23 Random Glucose 147 H Calcium 8.0 L Magnesium 1.8 Total Bilirubin 0.3 AST 42 H ALT 64 H Alkaline Phosphatase 98 Creatine Kinase 1001 H Creatine Kinase Index 0.3 CK-MB (CK-2) 3.7 H Total Protein 4.8 L Albumin 2.0 L 10/26/19 07:45 WBC RBC Hgb Hct MCV MCH MCHC RDW Plt Count MPV Absolute Neuts (auto) Neutrophils % Lymphocytes % Monocytes % Eosinophils % Basophils % Nucleated RBC % Sodium 142 Potassium 3.5 Chloride 108 H Carbon Dioxide 28 Anion Gap 6 L BUN 23.6 H Creatinine 2.2 H Est GFR (CKD-EPI)AfAm 37.42 Est GFR (CKD-EPI)NonAf 32.29 Random Glucose 162 H Calcium 7.5 L Magnesium Total Bilirubin 0.3 AST 36 ALT 48 Alkaline Phosphatase 86 Creatine Kinase Creatine Kinase Index CK-MB (CK-2) Total Protein 4.2 L Albumin 1.7 L Active Medications Generic Name Dose Route Start Last Admin Trade Name Freq PRN Reason Stop Dose Admin Dexamethasone Sodium Phosphate 4 mg 10/24/19 16:17 10/24/19 20:56 Decadron Injection - IVPUSH 4 mg Q6H PRN Administration nausea and vomiting Potassium Chloride 20 meq/ 1,010 mls @ 65 mls/hr 10/25/19 17:30 10/25/19 18:18 Dextrose IVPB 65 mls/hr Q15H PAVEL Administration Lisinopril 20 mg 10/24/19 19:00 10/25/19 10:43 Prinivil PO 20 mg DAILY PAVEL Administration Lorazepam 1 mg 10/24/19 16:16 10/25/19 08:10 Ativan Injection - IM 10/26/19 16:15 1 mg Q6H PRN Administration nausea and vomiting Metoclopramide HCl 10 mg 10/24/19 22:00 10/26/19 05:35 Reglan Injection - IVPUSH 10/26/19 21:59 10 mg TID PAVEL Administration Metoprolol Succinate 50 mg 10/24/19 19:00 10/25/19 10:43 Toprol Xl - PO 50 mg DAILY PAVEL Administration Nifedipine 90 mg 10/24/19 19:00 10/25/19 13:54 Procardia Xl - PO 90 mg DAILY PAVEL Administration Pantoprazole Sodium 40 mg 10/24/19 22:00 10/25/19 21:15 Protonix Iv IVPUSH 40 mg BID PAVEL Administration ASSESSMENT/PLAN: This patient is a 58yom with PMHx of IDDM, HTN, BPH, CKD, anemia and iwona lara tears , hx of gastroparesis with multiple admissions in the last month who presents with an abdominal pain with nausea and vomiting. #Acute on chronic diffuse abdominal pain -pt with multiple recent admissions. Was sent to [facility] after last visit for balloon enteroscopy but tested positive for COVID as per patient while in the hospital and the procedure was canceled. Dr. Manuel consulted Symptomatic management We will transfer back to [facility] for procedure pending COVID test as pt states he was dc'd due to being covid positive and they would not do double balloon enteroscopy. Pt having symptomatic anemia with mesenteric edema and EGD/colon done by Dr. Manuel without any acute findings suggestive of the area in between them as possible source so baloon enteroscopy will help visualize the area a normal endoscope does not reach. DR. Mic Jordan is aware of transfer when covid negative and willing to accept pt. Will assess for covid status daily as of now it is still pending. -clear liquid diet #hypernatremia -Switch fluids to D5W with K+ as per renal ([place]) #Rhabdo -continue fluids -trend cpk #HTN : echo with severe concentric LVH, close BP monitoring #CKD: - stable -will monitor #Diastolic CHF: -continue coreg/lisinopril #hypokalemia: - continue to replete #hyperlipidemia: - continue lipitor #COVID rule out pending however pt states he was positive at [facility] week ago. DVT Px: Heparin Visit type - Emergency Visit Emergency Visit: Yes ED Registration Date: 10/24/19 Care time: The patient presented to the Emergency Department on the above date and was hospitalized for further evaluation of their emergent condition. - New Patient This patient is new to me today: No - Critical Care Critical Care patient: No - Discharge Referral Referred to [facility] Med P.C.: No ATTENDING PHYSICIAN STATEMENT I saw and evaluated the patient. I reviewed the resident's note and discussed the case with the resident. I agree with the resident's findings and plan as documented. SUBJECTIVE: OBJECTIVE: ASSESSMENT AND PLAN:
[2019-10-26] MEDS: PANTOPRAZOLE SODIUM 40 MG VIAL IVPUSH SCH ×2 (10:07→21:48)
[2019-10-26] MEDS: LISINOPRIL 20 MG TABLET (FP) PO SCH (10:07)
[2019-10-26] MEDS: NIFEdipine E.R. 90 MG TABLET PO SCH (10:07)
[2019-10-26] MEDS: POTASSIUM CHLORIDE 20 MEQ in DEXTROSE 5%-WATER - 1,000 ML IVPB SCH (10:18)
--- NOTE | 2019-10-26 12:33 | PN ---
Teaching Attending Note Name of Resident: Brien Castro (\) ATTENDING PHYSICIAN STATEMENT I saw and evaluated the patient. I reviewed the resident's note and discussed the case with the resident. I agree with the resident's findings and plan as documented. SUBJECTIVE: Seen and examined at bedside. Patient still reports chronic abdominal pain but states it is improved from yesterday. Asking to advance his diet. Still pending COVID tests. Once negative patient is to be transferred to [facility] for double-balloon enteroscopy OBJECTIVE: Last Vital Signs Temp Pulse Resp BP Pulse Ox 98.4 F 76 18 147/68 100 10/26/19 08:50 10/26/19 08:50 10/26/19 08:50 10/26/19 08:50 10/26/19 08:50 PE: Per resident note Labs/Imaging: reviewed ASSESSMENT AND PLAN: This patient is a 58yom with PMHx of IDDM, HTN, BPH, CKD, anemia and iwona lara tears , hx of gastroparesis with multiple admissions in the last month who presents with an abdominal pain with nausea and vomiting. #Acute on chronic abdominal pain : -pt with multiple recent admissions. Was sent to [facility] after last visit for balloon enteroscopy but tested positive for COVID as per patient while in the hospital and the procedure was canceled. Dr. Norman consulted Symptomatic management transfer back to [facility] for procedure pending COVID test -advance to full liquid #hypernatremia -Switch fluids to D5W with K+ #Rhabdo -continue fluids -trend cpk #HTN : echo with severe concentric LVH, close BP monitoring #CKD: stable -will monitor #Diastolic CHF: -continue coreg/lisinopril #hypokalemia: continue to replete #hyperlipidemia: continue lipitor #COVID negative DVT Px: Heparin
--- NOTE | 2019-10-26 14:47 | PN.GI ---
GI Progress Note Subjective: GI NOte ( covering Dr Manuel): Abdominal pain has subsided. Willing to eat more. Denies any h/o pancreatitis or liver disease. No alcohol abuse. The CT does reveal a large fecal load and he admits to constipation. His pain description best fits distension due to gastroparesis but he may very well have intestinal angina due to peripheral diabetic vasculopathy or amyloidosis. His 05/20 CT raises the possibility of chronic pancreatitis, panniculitis or such vasculidities as mesenteric panniculitis and Behcet's. I will screen for other etiologies such as autoimmune pancreatitis. I advised fractionating his caloric intake into multiple smaller meals. Already on Reglan. - Objective Vital Signs: Vital Signs Temperature 98.6 F 10/26/19 14:33 Pulse Rate 68 10/26/19 14:33 Respiratory Rate 18 10/26/19 14:33 Blood Pressure 129/64 10/26/19 14:33 O2 Sat by Pulse Oximetry (%) 100 10/26/19 08:50 Constitutional: Calm Gastrointestinal Inspection: Yes: WNL ...Auscultate: Yes: Hypoactive Bowel Sounds ...Palpate: Yes: Soft, Other (nontender) ...Percussion: Yes: Tympanitic Labs: CBC, BMP 10/26/19 07:45 10/26/19 07:45 Assessment/Plan Impression: - The pain description best fits distension due to gastroparesis but he may very well have intestinal angina due to peripheral diabetic vasculopathy or amyloidosis. His 05/20 CT raises the possibility of chronic pancreatitis, panniculitis, diabetic neuropathy or such vasculidities as polyarteritis nodosa, mesenteric panniculitis and Behcet's. I will screen for other etiologies such as autoimmune pancreatitis. - Fecal impaction likely due to constipation associated with diabetic autonomic neuropathy Plan: -- I advised fractionating his caloric intake into multiple smaller meals. -- Continue Reglan. -- IgG4, CRP, ELIZABETH, SPEP, elastase, urine porphyrins and LORNA, -- Miralax TID -- Advance diet Dr Manuel will return 05/29 Problem List - Problems (1) Chronic abdominal pain Code(s): R10.9 - UNSPECIFIED ABDOMINAL PAIN; G89.29 - OTHER CHRONIC PAIN (2) Gastroparesis Code(s): K31.84 - GASTROPARESIS (3) Benign polyp of duodenum Code(s): K31.7 - POLYP OF STOMACH AND DUODENUM (4) Diabetes Code(s): E11.9 - TYPE 2 DIABETES MELLITUS WITHOUT COMPLICATIONS (5) Diabetic gastropathy Code(s): E11.69 - TYPE 2 DIABETES MELLITUS WITH OTHER SPECIFIED COMPLICATION; K31.9 - DISEASE OF STOMACH AND DUODENUM, UNSPECIFIED (6) Type 1 diabetes mellitus with diabetic chronic kidney disease Code(s): E10.22 - TYPE 1 DIABETES MELLITUS W DIABETIC CHRONIC KIDNEY DISEASE Qualifiers: Chronic kidney disease stage: stage 2 (mild) Qualified Code(s): E10.22 - Type 1 diabetes mellitus with diabetic chronic kidney disease; N18.2 - Chronic kidney disease, stage 2 (mild) (7) Nausea & vomiting Code(s): R11.2 - NAUSEA WITH VOMITING, UNSPECIFIED Qualifiers: Vomiting type: unspecified Vomiting Intractability: intractable Qualified Code(s): R11.2 - Nausea with vomiting, unspecified
--- NOTE | 2019-10-26 20:00 | PN ---
Progress Note, Physician History of Present Illness: Pt seen and examined at bedside. He feels that his nausea is improved. - Current Medication List Current Medications: Active Medications Dexamethasone Sodium Phosphate (Decadron Injection -) 4 mg IVPUSH Q6H PRN PRN Reason: nausea and vomiting Last Admin: 10/24/19 20:56 Dose: 4 mg Documented by: Potassium Chloride 20 meq/ (Dextrose) 1,010 mls @ 65 mls/hr IVPB Q15H [facility] Last Admin: 10/26/19 10:18 Dose: 65 mls/hr Documented by: Insulin Aspart (Novolog Vial Sliding Scale -) 1 vial SQ ACHS [facility]; Protocol Lisinopril (Prinivil) 20 mg PO DAILY [facility] Last Admin: 10/26/19 10:07 Dose: 20 mg Documented by: Metoclopramide HCl (Reglan Injection -) 10 mg IVPUSH TID [facility] Stop: 10/26/19 21:59 Last Admin: 10/26/19 14:01 Dose: 10 mg Documented by: Metoprolol Succinate (Toprol Xl -) 50 mg PO DAILY [facility] Last Admin: 10/26/19 10:07 Dose: 50 mg Documented by: Nifedipine (Procardia Xl -) 90 mg PO DAILY [facility] Last Admin: 10/26/19 10:07 Dose: 90 mg Documented by: Pantoprazole Sodium (Protonix Iv) 40 mg IVPUSH BID [facility] Last Admin: 10/26/19 10:07 Dose: 40 mg Documented by: Polyethylene Glycol (Miralax (For Daily Use) -) 17 gm PO TID [facility] - Objective Vital Signs: Vital Signs Temperature 98.6 F 10/26/19 18:00 Pulse Rate 75 10/26/19 18:00 Respiratory Rate 18 10/26/19 18:00 Blood Pressure 130/76 10/26/19 18:00 O2 Sat by Pulse Oximetry (%) 100 10/26/19 08:50 Constitutional: Yes: Calm Eyes: Yes: Conjunctiva Clear HENT: Yes: Atraumatic Cardiovascular: Yes: S1, S2 Respiratory: Yes: CTA Bilaterally Gastrointestinal: Yes: Soft Genitourinary: Yes: WNL Edema: No Neurological: Yes: Oriented Psychiatric: Yes: Oriented Labs: CBC, BMP 10/26/19 07:45 10/26/19 07:45 Problem List - Problems (1) Gastroparesis Code(s): K31.84 - GASTROPARESIS (2) Hypernatremia Code(s): E87.0 - HYPEROSMOLALITY AND HYPERNATREMIA (3) Hypokalemia Code(s): E87.6 - HYPOKALEMIA (4) Abdominal pain Code(s): R10.9 - UNSPECIFIED ABDOMINAL PAIN (5) Diabetes Code(s): E11.9 - TYPE 2 DIABETES MELLITUS WITHOUT COMPLICATIONS Assessment/Plan Current Medications Generic Name Dose Route Start Last Admin Trade Name Freq PRN Reason Stop Dose Admin Dexamethasone Sodium Phosphate 4 mg 10/24/19 16:17 10/24/19 20:56 Decadron Injection - IVPUSH 4 mg Q6H PRN Administration nausea and vomiting Potassium Chloride 20 meq/ 1,010 mls @ 65 mls/hr 10/25/19 17:30 10/26/19 10:18 Dextrose IVPB 65 mls/hr Q15H [facility] Administration Insulin Aspart 1 vial 10/26/19 22:00 Novolog Vial Sliding Scale - SQ ACHS [facility] Protocol Lisinopril 20 mg 10/24/19 19:00 10/26/19 10:07 Prinivil PO 20 mg DAILY [facility] Administration Metoclopramide HCl 10 mg 10/24/19 22:00 10/26/19 14:01 Reglan Injection - IVPUSH 10/26/19 21:59 10 mg TID [facility] Administration Metoprolol Succinate 50 mg 10/24/19 19:00 10/26/19 10:07 Toprol Xl - PO 50 mg DAILY [facility] Administration Nifedipine 90 mg 10/24/19 19:00 10/26/19 10:07 Procardia Xl - PO 90 mg DAILY [facility] Administration Pantoprazole Sodium 40 mg 10/24/19 22:00 10/26/19 10:07 Protonix Iv IVPUSH 40 mg BID [facility] Administration Polyethylene Glycol 17 gm 10/26/19 22:00 Miralax (For Daily Use) - PO TID [facility] Impression 1. vomiting 2. HTN 3. DM 4. anemia 5. bph 6. CKD 7. gastroparesis 8. hypokalemia 9. hypernatremia 10. hx covid 11. mild rhabdo Plan - cont clears - change fluids to 1/2 ns with potassium and decrease rate - repeat labs in am - GI input appreciated - possible transfer to tertiary [facility] - with 4 plus protein, cont with lisinopril
[2019-10-26] MEDS ORDERED: POTASSIUM CHLORIDE ORAL LIQUID 20 MEQ/15 ML PO ONE (20:01)
[2019-10-26] MEDS ORDERED: SODIUM CHLORIDE 0.45%/POT 20 MEQ/1,000 ML INFUS.BAG IV SCH (20:15)
[2019-10-26] MEDS ORDERED: INSULIN (NOVOLOG) ASPART 100 UNITS/ML 10ML VIAL ONE (21:38)
[2019-10-26] MEDS: POLYETHYLENE GLYCOL 3350 119 GM BTL PO SCH (21:48)
[2019-10-26] MEDS: INSULIN SLIDING SCALE (NOVOLOG) 1 VIAL SQ SCH (21:48)
[2019-10-27] MEDS: POLYETHYLENE GLYCOL 3350 119 GM BTL PO SCH (05:49)
[2019-10-27] MEDS: INSULIN SLIDING SCALE (NOVOLOG) 1 VIAL SQ SCH ×2 (06:13→11:53)
[2019-10-27 07:49] LABS: BASO % 0.3 % (0-2.0); EOS % 1.7 % (0-4.5); HEMATOCRIT 25.1 % (35.4-49); HEMOGLOBIN 8.3 GM/dL (11.7-16.9); LYMPH % 20.9 % (8-40); MCH 29.3 pg (25.7-33.7); MCHC 32.9 g/dl (32.0-35.9); MEAN CELL VOLUME 88.9 fl (80-96); MEAN PLT VOLUME 9.3 fl (7.5-11.1); MONO % 6.7 % (3.8-10.2); NEUT % 70.4 % (42.8-82.8); PLATELET COUNT 211 K/MM3 (134-434); RBC 2.82 M/mm3 (4.00-5.60); RDW 15.5 % (11.9-15.9); WHITE BLOOD COUNT 12.2 K/mm3 (4.0-10.0)
[2019-10-27 08:11] LABS: MAGNESIUM 1.8 mg/dL (1.8-2.4)
[2019-10-27 08:16] LABS: ALBUMIN 1.8 g/dl (3.4-5.0); BILIRUBIN,TOTAL 0.2 mg/dL (0.2-1); BLOOD UREA NITROGEN 22.4 mg/dL (7-18); CALCIUM 7.8 mg/dL (8.5-10.1); CREATININE 2.3 mg/dL (0.55-1.3); POTASSIUM 3.9 mmol/L (3.5-5.1); TOT PROT 4.6 g/dl (6.4-8.2)
[2019-10-27 08:43] VITALS: BP 155/55; PULSE 76; TEMP 99.1
[2019-10-27] MEDS: LISINOPRIL 20 MG TABLET (FP) PO SCH (09:13)
[2019-10-27] MEDS: PANTOPRAZOLE SODIUM 40 MG VIAL IVPUSH SCH (09:13)
[2019-10-27] MEDS: NIFEdipine E.R. 90 MG TABLET PO SCH (09:13)
--- NOTE | 2019-10-27 13:07 | PN ---
Teaching Attending Note Name of Resident: Tesfaye Patterson ATTENDING PHYSICIAN STATEMENT I saw and evaluated the patient. I reviewed the resident's note and discussed the case with the resident. I agree with the resident's findings and plan as documented. SUBJECTIVE: Seen and examined at bedside. Patient's COVID test is negative. He will be tra nsferred to [facility] for further work-up and management. OBJECTIVE: Last Vital Signs Temp Pulse Resp BP Pulse Ox 99.1 F 76 18 155/55 L 98 10/27/19 08:42 10/27/19 08:42 10/27/19 08:42 10/27/19 08:42 10/26/19 21:00 PE: Per resident note Labs/Imaging: reviewed ASSESSMENT AND PLAN: This patient is a 58yom with PMHx of IDDM, HTN, BPH, CKD, anemia and iwona lara tears , hx of gastroparesis with multiple admissions in the last month who presents with an abdominal pain with nausea and vomiting. #Acute on chronic abdominal pain : -pt with multiple recent admissions. Was sent to [facility] after last visit for balloon enteroscopy but tested positive for COVID as per patient while in the hospital and the procedure was canceled. Dr. Norman consulted Symptomatic management transfer back to [facility] for procedure pending COVID test -advance to full liquid #hypernatremia -Switch fluids to D5W with K+ #Rhabdo -continue fluids -trend cpk #HTN : echo with severe concentric LVH, close BP monitoring #CKD: stable -will monitor #Diastolic CHF: -continue coreg/lisinopril #hypokalemia: continue to replete #hyperlipidemia: continue lipitor #COVID negative DVT Px: Heparin Dispo: pending transfer to [facility] For double balloon enteroscopy and other further management.
--- NOTE | 2019-10-27 13:27 | DS ---
Physical Exam: SUBJECTIVE: Patient seen and examined. No acute events states he is in a lot of pain in his belly. Denies any diarrhea but admits to nonbloody emesis. OBJECTIVE: Vital Signs Period Temp Pulse Resp BP Sys/Aceves Pulse Ox Last 24 Hr 98.2 F-99.1 F 68-76 18-18 129-155/55-82 98 PHYSICAL EXAM GENERAL: The patient is awake, alert, and fully oriented, in no acute distress. LUNGS: Breath sounds equal, clear to auscultation bilaterally, no wheezes, no c rackles, no accessory muscle use. HEART: Regular rate and rhythm, S1, S2 without murmur, rub or gallop. ABDOMEN: Soft, epigastric tenderness to palpation EXTREMITIES: 2+ pulses, warm, well-perfused, no edema. LABS Laboratory Results - last 24 hr 10/24/19 10/26/19 10/27/19 18:32 21:45 05:47 WBC RBC Hgb Hct MCV MCH MCHC RDW Plt Count MPV Absolute Neuts (auto) Neutrophils % Lymphocytes % Monocytes % Eosinophils % Basophils % Nucleated RBC % Sodium Potassium Chloride Carbon Dioxide Anion Gap BUN Creatinine Est GFR (CKD-EPI)AfAm Est GFR (CKD-EPI)NonAf POC Glucometer 189 134 Random Glucose Calcium Magnesium Total Bilirubin AST ALT Alkaline Phosphatase LD Total Creatine Kinase Creatine Kinase Index CK-MB (CK-2) C-Reactive Protein Total Protein Albumin Total Amylase Lipase COVID-19 ([facility]) Not detected 10/27/19 10/27/19 10/27/19 07:20 07:20 07:20 WBC 12.2 H RBC 2.82 L Hgb 8.3 L Hct 25.1 L MCV 88.9 MCH 29.3 MCHC 32.9 RDW 15.5 Plt Count 211 MPV 9.3 Absolute Neuts (auto) 8.6 H Neutrophils % 70.4 Lymphocytes % 20.9 Monocytes % 6.7 Eosinophils % 1.7 D Basophils % 0.3 Nucleated RBC % 0 Sodium 142 Potassium 3.9 Chloride 107 Carbon Dioxide 27 Anion Gap 8 BUN 22.4 H Creatinine 2.3 H Est GFR (CKD-EPI)AfAm 35.47 Est GFR (CKD-EPI)NonAf 30.60 POC Glucometer Random Glucose 137 H Calcium 7.8 L Magnesium 1.8 Total Bilirubin 0.2 AST 32 ALT 47 Alkaline Phosphatase 90 LD Total 318 H Creatine Kinase 521 H Creatine Kinase Index 0.7 CK-MB (CK-2) 3.7 H C-Reactive Protein 1.4 H Total Protein 4.6 L Albumin 1.8 L Total Amylase 66 Lipase 97 COVID-19 ([facility]) 10/27/19 11:44 WBC RBC Hgb Hct MCV MCH MCHC RDW Plt Count MPV Absolute Neuts (auto) Neutrophils % Lymphocytes % Monocytes % Eosinophils % Basophils % Nucleated RBC % Sodium Potassium Chloride Carbon Dioxide Anion Gap BUN Creatinine Est GFR (CKD-EPI)AfAm Est GFR (CKD-EPI)NonAf POC Glucometer 265 Random Glucose Calcium Magnesium Total Bilirubin AST ALT Alkaline Phosphatase LD Total Creatine Kinase Creatine Kinase Index CK-MB (CK-2) C-Reactive Protein Total Protein Albumin Total Amylase Lipase COVID-19 ([facility]) HOSPITAL COURSE: Date of Admission:10/24/19 This patient is a 58yom with PMHx of IDDM, HTN, BPH, CKD, anemia and iwona lara tears , hx of gastroparesis with multiple admissions in the last month who presents with an abdominal pain with nausea and vomiting. Was scheduled for balloon enteroscopy at [facility], however was found to be COVID + at the time. Repeat COVID during this stay is - and is now being transferred back to [facility] for balloon enteroscopy with Dr. Mic Jordan. CT AP done here showed no acute pathology. GI was consulted, who suggested this may be diabetic gastroparesis vs ischemic bowel disease. While here, he was treated with IVF (1/2 NS with 40mEQ K) for rhabdo, and CPK went from 1,000 -> 500. He was maintained on a clear diet. UA showed 4+ protein, nephro was consulted, who recommended fluids and continued clears. Date of Discharge: 10/27/19 Minutes to complete discharge: 36 Discharge Summary Problems reviewed: Yes Reason For Visit: GASTROPARESIS, HYPERNATREMIA, ABDOMINAL PAIN, Current Active Problems Benign polyp of duodenum (Acute) Chronic abdominal pain (Acute) Gastroparesis (Acute) Hypernatremia (Acute) Hypokalemia (Acute) Intractable abdominal pain (Acute) Transaminitis (Acute) Condition: Stable - Instructions Diet, Activity, Other Instructions: You came to the hospital with abdominal pain. You were previsouly scheduled to undergo a balloon enteroscopy at [facility], which was not done because you had tested positive for COVID-19 ([place]) at the time. Your repeat test has now come back negative, and you are being transferred to [facility] to undergo balloon enteroscopy with Dr. Mic Jordan, as previously planned. Referrals: Dayday Frankel MD [Primary Care Provider] - Disposition: TRANSFER ACUTE CARE/OTHER HOSP - Home Medications Comprehensive Discharge Medication List: Ambulatory Orders Lisinopril 20 mg PO DAILY #30 tablet 10/10/19 Metoprolol Succinate 50 mg PO DAILY #30 tab.er.24h 10/10/19 Atorvastatin Ca [Lipitor] 40 mg PO HS 10/16/19 Carvedilol 12.5 mg PO BID 10/25/19 Insulin Lispro [Humalog] 5 unit SQ TID 10/25/19 Nifedipine ER [Procardia XL -] 60 mg PO DAILY 10/25/19 Pantoprazole Sodium [Protonix] 20 mg PO DAILY 10/25/19 This patient is new to me today: No Emergency Visit: No Critical Care patient: No - Discharge Referral Referred to [facility] No ATTENDING PHYSICIAN STATEMENT I saw and evaluated the patient. I reviewed the resident's note and discussed the case with the resident. I agree with the resident's findings and plan as documented. SUBJECTIVE: OBJECTIVE: ASSESSMENT AND PLAN:
--- NOTE | 2019-10-27 14:18 | PN ---
Progress Note, Physician History of Present Illness: Pt seen and examined at bedside. He is tolerating clears. He denies shortness of breath. - Current Medication List Current Medications: Active Medications Dexamethasone Sodium Phosphate (Decadron Injection -) 4 mg IVPUSH Q6H PRN PRN Reason: nausea and vomiting Last Admin: 10/24/19 20:56 Dose: 4 mg Documented by: Potassium Chloride/Sodium Chloride (1/2ns+20meq Kcl) 20 meq in 1,000 mls @ 42 mls/hr IV [facility] Last Admin: 10/26/19 20:19 Dose: 42 mls/hr Documented by: Insulin Aspart (Novolog Vial Sliding Scale -) 1 vial SQ ACHS [facility]; Protocol Last Admin: 10/27/19 11:53 Dose: 6 units Documented by: Lisinopril (Prinivil) 20 mg PO DAILY [facility] Last Admin: 10/27/19 09:13 Dose: 20 mg Documented by: Metoprolol Succinate (Toprol Xl -) 50 mg PO DAILY [facility] Last Admin: 10/27/19 09:13 Dose: 50 mg Documented by: Nifedipine (Procardia Xl -) 90 mg PO DAILY [facility] Last Admin: 10/27/19 09:13 Dose: 90 mg Documented by: Pantoprazole Sodium (Protonix Iv) 40 mg IVPUSH BID [facility] Last Admin: 10/27/19 09:13 Dose: 40 mg Documented by: Polyethylene Glycol (Miralax (For Daily Use) -) 17 gm PO TID [facility] Last Admin: 10/27/19 05:49 Dose: 17 grams Documented by: - Objective Vital Signs: Vital Signs Temperature 99.1 F 10/27/19 08:42 Pulse Rate 76 10/27/19 08:42 Respiratory Rate 18 10/27/19 08:42 Blood Pressure 155/55 L 10/27/19 08:42 O2 Sat by Pulse Oximetry (%) 98 10/26/19 21:00 Constitutional: Yes: Calm Eyes: Yes: Conjunctiva Clear HENT: Yes: Atraumatic Neck: Yes: Supple Cardiovascular: Yes: S1, S2 Respiratory: Yes: CTA Bilaterally Gastrointestinal: Yes: Soft Genitourinary: Yes: WNL Edema: Yes Edema: LLE: 1+, RLE: 1+ Neurological: Yes: Oriented Psychiatric: Yes: Oriented Labs: CBC, BMP 10/27/19 07:20 10/27/19 07:20 Problem List - Problems (1) Gastroparesis Code(s): K31.84 - GASTROPARESIS (2) Hypernatremia Code(s): E87.0 - HYPEROSMOLALITY AND HYPERNATREMIA (3) Hypokalemia Code(s): E87.6 - HYPOKALEMIA (4) Abdominal pain Code(s): R10.9 - UNSPECIFIED ABDOMINAL PAIN (5) Diabetes Code(s): E11.9 - TYPE 2 DIABETES MELLITUS WITHOUT COMPLICATIONS Assessment/Plan Current Medications Generic Name Dose Route Start Last Admin Trade Name Freq PRN Reason Stop Dose Admin Dexamethasone Sodium Phosphate 4 mg 10/24/19 16:17 10/24/19 20:56 Decadron Injection - IVPUSH 4 mg Q6H PRN Administration nausea and vomiting Potassium Chloride/Sodium Chloride 20 meq in 1,000 mls @ 42 mls/hr 10/26/19 20:15 10/26/19 20:19 1/2ns+20meq Kcl IV 42 mls/hr [facility] Administration Insulin Aspart 1 vial 10/26/19 22:00 10/27/19 11:53 Novolog Vial Sliding Scale - SQ 6 units ACHS [facility] Administration Protocol Lisinopril 20 mg 10/24/19 19:00 10/27/19 09:13 Prinivil PO 20 mg DAILY [facility] Administration Metoprolol Succinate 50 mg 10/24/19 19:00 10/27/19 09:13 Toprol Xl - PO 50 mg DAILY [facility] Administration Nifedipine 90 mg 10/24/19 19:00 10/27/19 09:13 Procardia Xl - PO 90 mg DAILY [facility] Administration Pantoprazole Sodium 40 mg 10/24/19 22:00 10/27/19 09:13 Protonix Iv IVPUSH 40 mg BID [facility] Administration Polyethylene Glycol 17 gm 10/26/19 22:00 10/27/19 05:49 Miralax (For Daily Use) - PO 17 grams TID [facility] Administration Impression 1. vomiting 2. HTN 3. DM 4. anemia 5. bph 6. CKD 7. gastroparesis 8. hypokalemia 9. hypernatremia 10. hx covid 11. mild rhabdo Plan - cont fluids - pt being transferred to tertiary care center - monitor lytes - pt tolerating clears - he should follow as outpt - cont lisinopril for proteinuria
[2019-10-28 16:07] LABS: GLIADIN ANTIBODY IGA 5 units (0-19); GLIADIN ANTIBODY IGG 3 units (0-19); TRANSGLUTAMINASE IGG < 2 U/mL (0-5)
== END 2019-10-27 14:45 | disposition short-term general hospital (02) | DRG 48 ==
LOC: JER 12:03 → JERBED 15:25 → J6S 10-25 02:37
PROVIDERS: ADMIT Internal Medicine; ATTEND Internal Medicine
DX: E11.43 Type 2 diabetes mellitus with diabetic autonomic (poly)neuropathy (principal); E11.22 Type 2 diabetes mellitus with diabetic chronic kidney disease; N18.2 Chronic kidney disease, stage 2 (mild); D72.829 Elevated white blood cell count, unspecified; E87.6 Hypokalemia; R10.0 Acute abdomen; R74.0 Nonspecific elevation of levels of transaminase and lactic acid dehydrogenase [LDH]; E86.0 Dehydration; F41.8 Other specified anxiety disorders; M62.82 Rhabdomyolysis; I13.0 Hypertensive heart and chronic kidney disease with heart failure and stage 1 through stage 4 chronic kidney disease, or unspecified chronic kidney disease; I50.30 Unspecified diastolic (congestive) heart failure; E87.0 Hyperosmolality and hypernatremia; N40.0 Benign prostatic hyperplasia without lower urinary tract symptoms; K31.84 Gastroparesis; E78.5 Hyperlipidemia, unspecified
CPT/HCPCS: 36415; 71045-TC-FY; 74019-TC-FY; 74177-TC; 80053; 80307; 81003; 82150; 82550; 82553; 82784; 82787; 82962; 83516; 83605; 83615; 83690; 83735; 84155; 84165; 84484; 85025; 86038; 86140; 86301; 86334; 86850; 86900; 86901; 87040; 93005; 93010; 99285-25; J3480; U0003

== ENCOUNTER 2019-11-04 14:00 | Inpatient (IN) | payer OTHER ==
[2019-11-04 14:15] VITALS: BMI 23.7
[2019-11-04] MEDS ORDERED: ACETAMINOPHEN 1000 MG/100 ML VIAL (NON FORMULARY) IVPB ONE (14:29)
[2019-11-04] MEDS ORDERED: FAMOTIDINE 20 MG/50 ML IVPB 20 MG/50 ML MG IVPB ONE (14:29)
[2019-11-04] MEDS ORDERED: SODIUM CHLORIDE 500 ML IV STA (14:29)
[2019-11-04] MEDS ORDERED: ONDANSETRON 4 MG/2 ML VIAL IVPUSH ONE (14:30)
--- NOTE | 2019-11-04 14:55 | PDOC ---
History of Present Illness - General Chief Complaint: Nausea/Vomiting Stated Complaint: Nausea/Vomiting Time Seen by Provider: 11/04/19 14:24 History Source: Patient Exam Limitations: Clinical Condition - History of Present Illness Initial Comments: Hx limited bc patient is a poor historian. Wayne Salazar is a 58 yo M w a hx of heart failure, HTN, IDDM, CKD, GI bleeding, gastroparesis, right leg DVT who presents to the [facility] er with severe epigastric abdominal pain associated with nausea and over ten episodes of red/coffee ground emesis vomiting. The patient states his symptoms all began yesterday evening. He has been seen in this hospital multiple times for gastroparesis and been diagnosed with iwona lara in the past. He does not usually have significant amounts of coffee ground emesis. - Denies drinking alcohol The patient is currently being treated with a blood thinner for a right leg DVT. He does not know what blood thinner he is taking. He says his pharmacy is [facility] [address]. - Calling [facility] to find out which blood thinner the patient is on - [facility] confirmed the patient is on elliquis 5mg daily PCP: Dr. Frankel PSH: None reported Social Hx: Denies smoking, drinking, or other substance abuse Allergies: NKA, NKDA Past History - Medical History Allergies/Adverse Reactions: Allergies Allergy/AdvReac Type Severity Reaction Status Date / Time No Known Allergies Allergy Verified 11/04/19 14:15 Home Medications: Ambulatory Orders Lisinopril 20 mg PO DAILY #30 tablet 10/10/19 Metoprolol Succinate 50 mg PO DAILY #30 tab.er.24h 10/10/19 Atorvastatin Ca [Lipitor] 40 mg PO HS 10/16/19 Carvedilol 12.5 mg PO BID 10/25/19 Insulin Lispro [Humalog] 5 unit SQ TID 10/25/19 Nifedipine ER [Procardia XL -] 60 mg PO DAILY 10/25/19 Pantoprazole Sodium [Protonix] 20 mg PO DAILY 10/25/19 Anemia: Yes Cardiac Disorders: Yes (prolonged QT) COPD: Yes CHF: Yes Diabetes: Yes (IDDM) GI Disorders: Yes (GIB, Gastroparesis, Iwona-Lara tear, multiple admits for N/V) Disorders: Yes (BPH) HTN: Yes - Surgical History Orthopedic Surgery: Yes (bilateral 5th toe amputation) - Immunization History Immunization Up to Date: Yes - Psycho-Social/Smoking History Smoking History: Never smoked Have you smoked in the past 12 months: No Information on smoking cessation initiated: No - Substance Abuse Hx (Audit-C & DAST Scrn) How often the patient has a drink containing alcohol: Monthly or less Number of drinks the patient has on a typical day: 1 or 2 Score: In Men: 4 or > Positive; In Women: 3 or > Positive: 1 Screen Result (Pos requires Nsg. Audit-10AR): Negative In the last yr the pt used illegal drug/Rx for NonMed reason: No Score: Yes response is considered Positive: 0 Screen Result (Positive result requires Nsg. DAST-10): Negative Review of Systems - Review of Systems Able to Perform ROS?: Yes Comments:: CONSTITUTIONAL: Present: Fatigue Absent: fever, no chills EYES: Absent: visual changes ENT: Absent: ear pain, no sore throat CARDIOVASCULAR: Absent: chest pain, no palpitations RESPIRATORY: Absent: cough, no SOB GI: Present: Abdominal pain, nausea, vomiting Absent: no constipation, no diarrhea GENITOURINARY: Absent: dysuria, no frequency, no hematuria MUSKULOSKELETAL: Absent: back pain, no arthralgia, no myalgia SKIN: Absent: rash NEURO: Absent: headache *Physical Exam - Vital Signs Last Vital Signs Temp Pulse Resp BP Pulse Ox 98.3 F 102 H 20 197/104 H 100 11/04/19 14:11 11/04/19 14:11 11/04/19 14:11 11/04/19 14:11 11/04/19 14:11 - Physical Exam GENERAL: Patient appears unwell. He looks like he is in pain. HEENT: Normocephalic, atraumatic. PERRL, EOM intact. CARDIOVASCULAR: Normal S1, S2. Regular rate and rhythm. 2+ edema in both lower extremities. PULMONARY: No evidence of respiratory distress. Lungs clear to auscultation bilaterally. No wheezing, rales or rhonchi. ABDOMEN: There is significant epigastric abdominal TTP. Overall the abdomen is soft with out rebound or guarding. There is no right or left upper quadrant TTP. EXTREMITIES: Normal ROM in all four extremities. No gross deformities. SKIN: Warm, dry. No rash NEUROLOGICAL: No focal neurological deficits. ED Treatment Course - LABORATORY CBC & Chemistry Diagram: 11/04/19 17:50 11/04/19 14:30 - RADIOLOGY Radiology Studies Ordered: Category Date Time Status CHEST X-RAY PORTABLE* [RAD] Stat Radiology 11/04/19 14:30 Ordered Medical Decision Making - Medical Decision Making Hx limited bc patient is a poor historian. Wayne Salazar is a 58 yo M w a hx of heart failure, HTN, IDDM, CKD, GI bleeding, gastroparesis, right leg DVT who presents to the [facility] er with severe epigastric abdominal pain associated with nausea and over ten episodes of red/coffee ground emesis vomiting. The patient states his symptoms all began yesterday evening. He has been seen in this hospital multiple times for gastroparesis and been diagnosed with iwona lara in the past. He does not usually have significant amounts of coffee ground emesis. - Denies drinking alcohol The patient is currently being treated with a blood thinner for a right leg DVT. He does not know what blood thinner he is taking. He says his pharmacy is [facility] [address]. - Calling [facility] to find out which blood thinner the patient is on - [facility] ell[facility]is 5mg daily Vital Signs Temp Pulse Resp BP Pulse Ox 98.3 F 102 H 20 197/104 H 100 11/04/19 14:11 11/04/19 14:11 11/04/19 14:11 11/04/19 14:11 11/04/19 14:11 DDx IBNLT: GI bleed - likely upper, Iwona lara vs Boerhave, pancreatitis, gastritis, electrolyte/metabolic disturbance, anemia Plan: Labs, Fluids, antiemetics, +/- blood transfusion, CTAP, GI consult, admission to hospital EKG: NS rate of 92, pr 164, narrow complexes, qrs 98, LAD, no hypertrophy, no ST elevations or depressions, Septal Q waves, QTc 489 Labs: Anemia - Hb dropped from 9.9 to 8.[address]: Gastritis GI consult: Spoke with Dr. Sanabria who is covering for Dr. Manuel. Aware of patient. Agrees with current management plan of protonix and drip, blood transfusion, reglan, ceftriaxone and admission to the ICU Re-assessment: Patient no longer vomiting coffee ground emesis after reglan and ativan Disposition: Admit to ICU - Gave report to ICU resident Discharge - Discharge Information Problems reviewed: Yes Clinical Impression/Diagnosis: VAISHNAVI (acute kidney injury), Upper GI bleed, Coffee ground emesis Abdominal pain Qualifiers: Abdominal location: epigastric Qualified Code(s): R10.13 - Epigastric pain Condition: Guarded - Admission Yes - Follow up/Referral - Patient Discharge Instructions - Post Discharge Activity
[2019-11-04] MEDS ORDERED: PANTOPRAZOLE SODIUM 40 MG VIAL IVPUSH ONE (14:58)
[2019-11-04] MEDS ORDERED: METOCLOPRAMIDE HCL INJECTION 10 MG/2 ML VIAL IVPUSH ONE ×2 (14:59→21:37)
[2019-11-04] MEDS ORDERED: morphine CARPU-JECT 4 MG/1 ML DISP.SYRIN IVPUSH ONE (14:59)
[2019-11-04 15:11] LABS: BASO % 0.2 % (0-2.0); HEMATOCRIT 30.6 % (35.4-49); HEMOGLOBIN 9.9 GM/dL (11.7-16.9); LYMPH % 11.2 % (8-40); MCHC 32.2 g/dl (32.0-35.9); MEAN CELL VOLUME 90.1 fl (80-96); MONO % 3.1 % (3.8-10.2); NEUT % 85.5 % (42.8-82.8); PLATELET COUNT 325 K/MM3 (134-434); RDW 15.6 % (11.9-15.9); WHITE BLOOD COUNT 12.3 K/mm3 (4.0-10.0)
--- NOTE | 2019-11-04 15:12 | PDOC ---
Attending Attestation - Resident Resident Name: Marcelo Cornejo - ED Attending Attestation I have performed the following: I have examined & evaluated the patient, The case was reviewed & discussed with the resident, I agree w/resident's findings & plan - HPI HPI: 11/04/19 15:12 Wayne Salazar is a 58 yo M w a hx of heart failure, HTN, IDDM, CKD, GI bleeding, sayda lara tears, gastroparesis, cyclic vomiting, right leg DVT who presents to the [facility] er with severe epigastric abdominal pain associated with nausea and over ten episodes of red/coffee ground emesis vomiting. Multiple admissions in September for intractable nausea/vomiting, cyclic vomiting of unclear etiology and abdominal pain, hypokalemia. Seen by GI. He has had work- up with Dr. Rouse in the past. For porphyria. CT abdomen pelvis done in September 2019 with market thickening of the distal esophagus otherwise no acute pathology is noted. 11/04/19 15:18 - Physicial Exam PE: 11/04/19 15:18 General: awake and alert, uncomfortable appearing. HEENT: NCAT, PERRL, EOMI, clear conjunctiva, anicteric, dry mucous membranes, clear oropharynx, no oral lesions.. Neck: neck supple, FROM Resp: CTAB, normal and even respirations, no respiratory distress CVS: +tachycardic, no murmurs, 2+ peripheral pulses throughout, no peripheral edema Abdomen: soft, +epigastric TTP; no rebound or guarding. No CVAT. neg mendoza's. MSK: no edema, VALENCIA x4, ROM intact. No clubbing or cyanosis. normal bulk and tone. Extremities: no calf tenderness; b/l nonpitting pedal edema Neuro: alert Skin: warm and well perfused, cap refill <2 sec, normal color for ethnicity - Critical Care Time Total Critical Care Time: 45 (GIB) Critical Care Statement: The care of this patient involved high complexity decision making to prevent further life threatening deterioration of the patient's condition and/or to evaluate & treat vital organ system(s) failure or risk of failure. - Medical Decision Making 11/04/19 15:19 Vital Signs Temp Pulse Resp BP Pulse Ox 98.3 F 102 H 20 197/104 H 100 11/04/19 14:11 11/04/19 14:11 11/04/19 14:11 11/04/19 14:11 11/04/19 14:11 vitals reviewed no fever, nontoxic +tachy and HTN, likely from pain, n/v prior records reviewed, recent admits to medical service in september 2019 for cyclic vomiting, gastroparesis, electrolyte/metabolic derangements, DDx abdominal pain: Renal colic, biliary colic, metabolic/electrolyte derangements. GERD, PUD, esophageal spasm, pancreatitis, hepatitis, const ipation, colitis, gastroenteritis, cholecystitis, UTI, pyelonephritis, ileus, SBO, medication side effect, hernia, appendicitis, diverticulitis, mesenteric ischemia. msk strain, mesenteric adenitis, psoas abscess. UGIB vs LGIB, diverticular bleed, AVM, polyp, brisk UGIB, PUD/duodenal ulcer, anemia, electrolyte/metabolic derangements, ischemic colitis, hemorrhagic colitis, mesenteric ischemia. Sayda lara tear, doubt Borhaaves. The patient appears comfortable and states that pain is improved. Given medications _ zofran and ativan for n/v/ hold other agents for qtc prolonging effects, morphine, IVF, protonix, gI cocktail pocus GB without stones or cholecystitis. low threshold for CT imagng. noncon only, as pt with CKD and difficulty tolerating PO intake labs and lytes with mild leukocytosis of 12K, baseline anemia Hb 9.9, higher than prior ~8.5 chronic renal insufficiency, baseline Cr 2 protonix given GI cs with Dr Maunel admission warranted. close monitoring, serial H/H and HD monitoring, bleeding ICU given UGIB concern 11/04/19 15:20 11/04/19 16:22 11/07/19 13:35 Heart Score/ECG Review #1 ECG reviewed & interpreted by me at: 15:40 General ECG Interpretation: Sinus Rhythm, Normal Rate Compared to previous ECG there are: No significant change 11/04/19 15:40 EKG normal sinus rhythm 92 bpm, borderline QTC prolongation of 489 ms corrected narrow QRS, ST and T wave segments and morphology normal. Nonspecific T wave abnormalities Discharge - Discharge Information Problems reviewed: Yes Clinical Impression/Diagnosis: VAISHNAVI (acute kidney injury), Upper GI bleed, Coffee ground emesis Abdominal pain Qualifiers: Abdominal location: epigastric Qualified Code(s): R10.13 - Epigastric pain Condition: Guarded - Follow up/Referral - Patient Discharge Instructions - Post Discharge Activity
[2019-11-04 15:18] LABS: INR 0.99 (0.83-1.09); PROTHROMBIN TIME (PATIENT) 11.7 SEC (9.7-13.0)
[2019-11-04 15:21] LABS: ACTIVATED PTT 31.5 SECONDS (25.2-36.5)
[2019-11-04 15:41] LABS: ALBUMIN 2.4 g/dl (3.4-5.0); BILIRUBIN,TOTAL 0.4 mg/dL (0.2-1); BLOOD UREA NITROGEN 23.6 mg/dL (7-18); CALCIUM 9.3 mg/dL (8.5-10.1); POTASSIUM 3.5 mmol/L (3.5-5.1); TOT PROT 5.7 g/dl (6.4-8.2)
[2019-11-04] MEDS ORDERED: LACTATED RINGERS SOLUTION 1000 ML INFUS.BAG IV ONE ×2 (15:42→16:42)
[2019-11-04 18:02] LABS: BASO % 0.2 % (0-2.0); HEMATOCRIT 27.1 % (35.4-49); HEMOGLOBIN 8.9 GM/dL (11.7-16.9); LYMPH % 10.9 % (8-40); MCH 29.8 pg (25.7-33.7); MCHC 32.7 g/dl (32.0-35.9); MEAN CELL VOLUME 91.1 fl (80-96); MEAN PLT VOLUME 8.4 fl (7.5-11.1); MONO % 4.9 % (3.8-10.2); PLATELET COUNT 291 K/MM3 (134-434); RBC 2.97 M/mm3 (4.00-5.60); RDW 15.4 % (11.9-15.9); WHITE BLOOD COUNT 14.6 K/mm3 (4.0-10.0)
[2019-11-04] MEDS ORDERED: CEFTRIAXONE 1,000 MG in DEXTROSE 5%-WATER - 50 ML IVPB ONE (18:35)
[2019-11-04] MEDS ORDERED: CEFTRIAXONE 1 GM/50 ML BAG ONE (18:39)
[2019-11-04] MEDS ORDERED: PANTOPRAZOLE SODIUM 40 MG VIAL ONE (18:40)
[2019-11-04] MEDS: PANTOPRAZOLE SODIUM 80 MG in SODIUM CHLORIDE 100 ML IVPB SCH (18:49)
--- NOTE | 2019-11-04 20:25 | CONSULT ---
Consultation: REQUESTING PROVIDER: Dr. Yelena Galan CONSULT REQUEST: We have been asked to medically evaluate this patient for (specify). HISTORY OF PRESENT ILLNESS: It should be noted that the pt is a poor historian. Pt is 58 yo M a hx of heart failure, HTN, IDDM, CKD, upper GI bleeding, gastroparesis, iwona lara syndrome, and right leg DVT who presents to the ED with severe 9/10 sharp epigastric/mid-abdominal pain associated with nausea and "10-20 episodes" of brown/coffee ground emesis that started yesterday evening. He reports that the pain was gradual in onset and intermittent at first. After several episodes of emesis, the pain became constant. It is aggravated by sitting up and alleviated by laying down. He attempted to alleviate the pain with sucralfate without improvement. He notes that episodes of abdominal pain associated with nausea and vomiting has been going on since June 2019, but are only intermittently brown/coffee-ground looking. His last meal before these current symptoms started were "ribs, shish kebabs, and other barbecue foods." His last BM was 3-4 days ago and he described it as brown, "normal," and without blood. He also reports associated chills and diaphoresis. Denies fever, dizziness, LOC, falls, urinary changes, constipation, diarrhea, chest pain, weakness, trauma to the abdomen, headache, weight changes, or cough. He has been seen in this hospital multiple times for gastroparesis and been diagnosed with iwona lara in the past. Pt was last hospitalized on 10/24/2019 for severe abdominal pain and non-bilious, non-bloody emesis. He was transferred to [facility] for balloon enteroscopy. Pt reports he had an endoscopy and what he describes to be an upper GI series done. He was discharged from [facility] "sometime last week" according to the patient. He has also been recently treated for a DVT in his right leg (currently on eliquis 5 mg daily). PCP: Dr. 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 Pt lives with his mother, Gayla. Never cigarette smoker. Reports occasional EtOH use. Last drink was November 01 when he had 2 beers. CAGE 0/4. Reports occasional marijuana use, but denies other recreational drug use. REVIEW OF SYSTEMS: As above. Rest negative PHYSICAL EXAMINATION Vital Signs - 24 hr 11/04/19 11/04/19 11/04/19 14:11 16:29 17:11 Temperature 98.3 F Pulse Rate 102 H Pulse Rate [ 102 H Apical] Pulse Rate [ 93 H Left Brachial] Respiratory 20 20 Rate Blood Pressure 197/104 H Blood Pressure 182/96 H [Left Arm] Blood Pressure 186/92 H [Right Arm] O2 Sat by Pulse 100 98 97 Oximetry (%) 11/04/19 17:54 Temperature Pulse Rate Pulse Rate [ Apical] Pulse Rate [ Left Brachial] Respiratory Rate Blood Pressure Blood Pressure [Left Arm] Blood Pressure [Right Arm] O2 Sat by Pulse 98 Oximetry (%) General: AOx3; in moderate discomfort, still having intermittent episodes of small amounts of brown/coffee-ground emesis at bedside. HEENT: NCAT, PERRL, EOMI, dry mucous membranes, oropharynx without lesions or exudates Neck: neck supple, no LAD Resp: CTAB, no wheezing, crackles, or accessory muscle use CVS: +tachycardic, no murmurs/rubs/gallups, 2+ peripheral pulses throughout, no peripheral edema Abdomen: soft, epigastric and mid-abdominal tenderness to palpation; BS present in all 4 quadrants. no rebound or guarding. Joy's Negative. Rovsing Negative. Obturator sign negative. Rectal: pt refused ANH MSK: no edema, ROM intact. No clubbing or cyanosis. Extremities: no calf tenderness; Neuro: AOx3, CN 2-12 grossly intact Skin: warm and well perfused, cap refill <2 sec Laboratory Results - last 24 hr 11/04/19 11/04/19 11/04/19 14:30 14:30 14:30 WBC 12.3 H RBC 3.40 L Hgb 9.9 L Hct 30.6 L D MCV 90.1 MCH 29.0 MCHC 32.2 RDW 15.6 Plt Count 325 D MPV 9.0 Absolute Neuts (auto) 10.5 H Neutrophils % 85.5 H D Lymphocytes % 11.2 D Monocytes % 3.1 L Eosinophils % 0.0 D Basophils % 0.2 Nucleated RBC % 0 PT with INR 11.70 INR 0.99 PTT (Actin FS) 31.5 Sodium 149 H Potassium 3.5 Chloride 111 H Carbon Dioxide 28 Anion Gap 10 BUN 23.6 H Creatinine 2.0 H Est GFR (CKD-EPI)AfAm 41.99 Est GFR (CKD-EPI)NonAf 36.23 Random Glucose 215 H Lactic Acid Calcium 9.3 Phosphorus 3.0 Magnesium 2.0 Total Bilirubin 0.4 AST 39 H ALT 44 Alkaline Phosphatase 101 Creatine Kinase 1226 H Creatine Kinase Index 0.3 CK-MB (CK-2) 3.8 H Troponin I 0.05 Total Protein 5.7 L Albumin 2.4 L Lipase 61 L Alcohol, Quantitative Blood Type Antibody Screen Crossmatch 11/04/19 11/04/19 11/04/19 14:30 14:30 14:30 WBC RBC Hgb Hct MCV MCH MCHC RDW Plt Count MPV Absolute Neuts (auto) Neutrophils % Lymphocytes % Monocytes % Eosinophils % Basophils % Nucleated RBC % PT with INR INR PTT (Actin FS) Sodium Potassium Chloride Carbon Dioxide Anion Gap BUN Creatinine Est GFR (CKD-EPI)AfAm Est GFR (CKD-EPI)NonAf Random Glucose Lactic Acid 1.4 Calcium Phosphorus Magnesium Total Bilirubin AST ALT Alkaline Phosphatase Creatine Kinase Creatine Kinase Index CK-MB (CK-2) Troponin I Total Protein Albumin Lipase Alcohol, Quantitative < 3 Blood Type O POSITIVE Antibody Screen Negative Crossmatch See Detail 11/04/19 11/04/19 17:50 17:50 WBC 14.6 H RBC 2.97 L Hgb 8.9 L Hct 27.1 L MCV 91.1 MCH 29.8 MCHC 32.7 RDW 15.4 Plt Count 291 MPV 8.4 Absolute Neuts (auto) 12.3 H Neutrophils % 84.0 H Lymphocytes % 10.9 Monocytes % 4.9 Eosinophils % 0.0 Basophils % 0.2 Nucleated RBC % 0 PT with INR INR PTT (Actin FS) Sodium Potassium Chloride Carbon Dioxide Anion Gap BUN Creatinine Est GFR (CKD-EPI)AfAm Est GFR (CKD-EPI)NonAf Random Glucose Lactic Acid Calcium Phosphorus Magnesium Total Bilirubin AST ALT Alkaline Phosphatase Creatine Kinase Creatine Kinase Index CK-MB (CK-2) Troponin I 0.06 H Total Protein Albumin Lipase Alcohol, Quantitative Blood Type Antibody Screen Crossmatch Active Medications Generic Name Dose Route Start Last Admin Trade Name Freq PRN Reason Stop Dose Admin Pantoprazole Sodium 80 mg/ 100 mls @ 10 mls/hr 07/06/20 18:45 11/04/19 18:49 Sodium Chloride IVPB 11/07/19 18:36 10 mls/hr Q10H PAVEL Administration 8 MG/HR ASSESSMENT/PLAN: Pt is 58 yo M a hx of heart failure, HTN, IDDM, CKD, upper GI bleeding, gastroparesis, iwona lara syndrome, and right leg DVT who presents to the ED with severe abdominal pain and multiple episodes of coffee-ground emesis. Pt being admitted to ICU for monitoring due to acute upper GI blood loss. #Neuro - pt alert and oriented; no neurologic concerns #Cardio HTN Troponinemia (0.06) - start home carvediolol 12.5 mg; hold lisinopril d/t CKD hx; reinstate other home BP meds cautiously in setting of GI bleed - trend troponins until peak - monitor BP #Pulm - breathing well; no respiratory support needed as of right now #GI hx of gastroparesis suspected gastritis vs iwona lara tear. prior egd in 05/2019 revealed gastritis and no acute bleeding. abdominal pain - lower suspicion for ischemia given lactate of 1.6, negative peritoneal signs, negative rebound/guarding; less likely pancreatitis given lipase of 61 CT abd/pelvis - did not reveal free air, free fluid, diverticulosis without diverticulitis noted - GI consult appreciated. Begin protonix drip and reglan. - NPO -PT/INR; PTT; Type and screen ordered - Monitor CBC - ofirmev prn for pain #Renal hx of CKD mild hypernatremia - gentle hydration with .45 NS at 100 cc/hr x 1 bag #Heme recent hx of DVT - hold eliquis in setting of GI bleed - restart when appropriate #ID leukocytosis 14.6 - hx of long-standing chronic leukocytosis - Ceftriaxone given for SBP ppx; no need to broaden coverage if pt remains afebrile - monitor CBC #Endo IDDM (last HbA1c in 05/2019 - 8) - HbA1c ordered - BGM + sliding scale #MSK hx of chronically elevated CPK; noted hx of rhabdo - gentle hydration and monitor CPK as pt is asymptomatic for rhabdo right #FEN - monitor lytes and replete accordingly Dispo: We will continue to follow the patient. Thank you for this consultative opportunity. Mother Ashley) - [phone] Visit type - Emergency Visit Emergency Visit: Yes ED Registration Date: 11/04/19 Care time: The patient presented to the Emergency Department on the above date and was hospitalized for further evaluation of their emergent condition. - New Patient This patient is new to me today: Yes Date on this admission: 11/04/19 - Critical Care Critical Care patient: Yes Total Critical Care Time (in minutes): 38 Critical Care Statement: The care of this patient involved high complexity decision making to prevent further life threatening deterioration of the patient's condition and/or to evaluate & treat vital organ system(s) failure or risk of failure. ATTENDING PHYSICIAN STATEMENT I saw and evaluated the patient. I reviewed the resident's note and discussed the case with the resident. I agree with the resident's findings and plan as documented. SUBJECTIVE: OBJECTIVE: ASSESSMENT AND PLAN:
[2019-11-04] MEDS ORDERED: SODIUM CHLORIDE 0.45% 1,000 ML IV SCH (20:30)
[2019-11-04] MEDS ORDERED: CARVEDILOL 12.5 MG TABLET (FP) ONE (20:49)
[2019-11-04] MEDS: CARVEDILOL 12.5 MG TABLET (FP) PO SCH ×2 (20:58→23:00)
[2019-11-04] MEDS: SODIUM CHLORIDE 0.45% 1,000 ML IV SCH (20:58)
[2019-11-04] MEDS ORDERED: INSULIN SLIDING SCALE (NOVOLOG) 1 VIAL SQ ONE (21:06)
[2019-11-04] MEDS: INSULIN SLIDING SCALE (NOVOLOG) 1 VIAL SQ SCH (21:16)
[2019-11-04] MEDS ORDERED: METOCLOPRAMIDE HCL INJECTION 10 MG/2 ML VIAL ONE (21:48)
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
[2019-11-04] MEDS ORDERED: METOCLOPRAMIDE HCL INJECTION 10 MG/2 ML VIAL IVPUSH SCH (23:45)
[2019-11-05] MEDS: INSULIN SLIDING SCALE (NOVOLOG) 1 VIAL SQ SCH ×4 (02:24→22:24)
[2019-11-05] MEDS: ACETAMINOPHEN 1000 MG/100 ML VIAL (NON FORMULARY) IVPB PRN ×3 (02:25→15:31)
[2019-11-05] MEDS: METOCLOPRAMIDE HCL INJECTION 10 MG/2 ML VIAL IVPUSH SCH ×4 (02:25→22:20)
[2019-11-05] MEDS: PANTOPRAZOLE SODIUM 80 MG in SODIUM CHLORIDE 100 ML IVPB SCH (06:18)
[2019-11-05 06:45] LABS: HEMATOCRIT 25.1 % (35.4-49); HEMOGLOBIN 8.2 GM/dL (11.7-16.9); MCH 29.6 pg (25.7-33.7); MCHC 32.7 g/dl (32.0-35.9); MEAN CELL VOLUME 90.5 fl (80-96); MEAN PLT VOLUME 9.3 fl (7.5-11.1); PLATELET COUNT 272 K/MM3 (134-434); RBC 2.78 M/mm3 (4.00-5.60); RDW 15.8 % (11.9-15.9); WHITE BLOOD COUNT 11.9 K/mm3 (4.0-10.0)
[2019-11-05 07:02] LABS: ALBUMIN 1.8 g/dl (3.4-5.0); BILIRUBIN,TOTAL 0.4 mg/dL (0.2-1); BLOOD UREA NITROGEN 20.6 mg/dL (7-18); CREATININE 1.8 mg/dL (0.55-1.3); PHOSPHOROUS 3.8 mg/dL (2.5-4.9); POTASSIUM 3.4 mmol/L (3.5-5.1); TOT PROT 4.4 g/dl (6.4-8.2)
[2019-11-05] MEDS: CARVEDILOL 12.5 MG TABLET (FP) PO SCH ×3 (07:25→22:20)
[2019-11-05] MEDS: KCL 10 MEQ IVPB 10 MEQ/100 ML INFUS.BAG IVPB SCH ×5 (08:06→19:12)
[2019-11-05] MEDS ORDERED: MINERAL OIL ENEMA 133 ML ENEMA RC ONE (08:20)
[2019-11-05] MEDS ORDERED: POTASSIUM CHLORIDE ORAL LIQUID 20 MEQ/15 ML PO ONE (08:45)
[2019-11-05] MEDS: NIFEdipine E.R 60 MG TABLET PO SCH (08:48)
--- NOTE | 2019-11-05 09:19 | PN ---
Physical Exam: SUBJECTIVE: Pt seen and examined in the ICU. Had several more episodes of emesis upon arrival in the ICU. Since then there has been no further emesis or hematemesis. He endorses that he is hungry and wants to eat. He is passing gas. His BP was elevated overnight. OBJECTIVE: Vital Signs Period Temp Pulse Resp BP Sys/Aceves Pulse Ox Last 24 Hr 97.7 F-98.9 F 72-102 12-22 153-197/92-122 97-100 Abd - soft, nondistended, tender to palpation - no rebound or guarding GENERAL: The patient is awake, alert, and fully oriented, in no acute distress. HEAD: Normal with no signs of trauma. EYES: PERRL, extraocular movements intact, sclera anicteric, conjunctiva clear. No ptosis. ENT: Ears normal, nares patent, oropharynx clear without exudates, moist mucous membranes. NECK: Trachea midline, full range of motion, supple. LUNGS: Breath sounds equal, clear to auscultation bilaterally, no wheezes, no crackles, no accessory muscle use. HEART: Regular rate and rhythm, S1, S2 without murmur, rub or gallop. ABDOMEN: Soft, nontender, nondistended, normoactive bowel sounds, no guarding, n o rebound, no hepatosplenomegaly, no masses. EXTREMITIES: 2+ pulses, warm, well-perfused, no edema. NEUROLOGICAL: Cranial nerves II through XII grossly intact. Normal speech, gait not observed. PSYCH: Normal mood, normal affect. SKIN: Warm, dry, normal turgor, no rashes or lesions noted Laboratory Results - last 24 hr 11/04/19 11/04/19 11/04/19 14:30 14:30 14:30 WBC 12.3 H RBC 3.40 L Hgb 9.9 L Hct 30.6 L D MCV 90.1 MCH 29.0 MCHC 32.2 RDW 15.6 Plt Count 325 D MPV 9.0 Absolute Neuts (auto) 10.5 H Neutrophils % 85.5 H D Lymphocytes % 11.2 D Monocytes % 3.1 L Eosinophils % 0.0 D Basophils % 0.2 Nucleated RBC % 0 PT with INR 11.70 INR 0.99 PTT (Actin FS) 31.5 Sodium 149 H Potassium 3.5 Chloride 111 H Carbon Dioxide 28 Anion Gap 10 BUN 23.6 H Creatinine 2.0 H Est GFR (CKD-EPI)AfAm 41.99 Est GFR (CKD-EPI)NonAf 36.23 POC Glucometer Random Glucose 215 H Lactic Acid Calcium 9.3 Phosphorus 3.0 Magnesium 2.0 Total Bilirubin 0.4 AST 39 H ALT 44 Alkaline Phosphatase 101 Creatine Kinase 1226 H Creatine Kinase Index 0.3 CK-MB (CK-2) 3.8 H Troponin I 0.05 Total Protein 5.7 L Albumin 2.4 L Lipase 61 L Alcohol, Quantitative Blood Type Antibody Screen Crossmatch 11/04/19 11/04/19 11/04/19 14:30 14:30 14:30 WBC RBC Hgb Hct MCV MCH MCHC RDW Plt Count MPV Absolute Neuts (auto) Neutrophils % Lymphocytes % Monocytes % Eosinophils % Basophils % Nucleated RBC % PT with INR INR PTT (Actin FS) Sodium Potassium Chloride Carbon Dioxide Anion Gap BUN Creatinine Est GFR (CKD-EPI)AfAm Est GFR (CKD-EPI)NonAf POC Glucometer Random Glucose Lactic Acid 1.4 Calcium Phosphorus Magnesium Total Bilirubin AST ALT Alkaline Phosphatase Creatine Kinase Creatine Kinase Index CK-MB (CK-2) Troponin I Total Protein Albumin Lipase Alcohol, Quantitative < 3 Blood Type O POSITIVE Antibody Screen Negative Crossmatch See Detail 11/04/19 11/04/19 11/04/19 17:50 17:50 20:51 WBC 14.6 H RBC 2.97 L Hgb 8.9 L Hct 27.1 L MCV 91.1 MCH 29.8 MCHC 32.7 RDW 15.4 Plt Count 291 MPV 8.4 Absolute Neuts (auto) 12.3 H Neutrophils % 84.0 H Lymphocytes % 10.9 Monocytes % 4.9 Eosinophils % 0.0 Basophils % 0.2 Nucleated RBC % 0 PT with INR INR PTT (Actin FS) Sodium Potassium Chloride Carbon Dioxide Anion Gap BUN Creatinine Est GFR (CKD-EPI)AfAm Est GFR (CKD-EPI)NonAf POC Glucometer 196 Random Glucose Lactic Acid Calcium Phosphorus Magnesium Total Bilirubin AST ALT Alkaline Phosphatase Creatine Kinase Creatine Kinase Index CK-MB (CK-2) Troponin I 0.06 H Total Protein Albumin Lipase Alcohol, Quantitative Blood Type Antibody Screen Crossmatch 11/05/19 11/05/19 11/05/19 02:06 05:50 05:50 WBC 11.9 H RBC 2.78 L Hgb 8.2 L Hct 25.1 L MCV 90.5 MCH 29.6 MCHC 32.7 RDW 15.8 Plt Count 272 MPV 9.3 D Absolute Neuts (auto) Neutrophils % Lymphocytes % Monocytes % Eosinophils % Basophils % Nucleated RBC % PT with INR INR PTT (Actin FS) Sodium 149 H Potassium 3.4 L Chloride 115 H Carbon Dioxide 27 Anion Gap 7 L BUN 20.6 H Creatinine 1.8 H Est GFR (CKD-EPI)AfAm 47.70 Est GFR (CKD-EPI)NonAf 41.16 POC Glucometer 144 Random Glucose 146 H Lactic Acid Calcium 8.0 L Phosphorus 3.8 Magnesium 2.0 Total Bilirubin 0.4 AST 28 ALT 29 Alkaline Phosphatase 80 Creatine Kinase Creatine Kinase Index CK-MB (CK-2) Troponin I Total Protein 4.4 L Albumin 1.8 L Lipase Alcohol, Quantitative Blood Type Antibody Screen Crossmatch 11/05/19 11/05/19 05:50 08:14 WBC RBC Hgb Hct MCV MCH MCHC RDW Plt Count MPV Absolute Neuts (auto) Neutrophils % Lymphocytes % Monocytes % Eosinophils % Basophils % Nucleated RBC % PT with INR INR PTT (Actin FS) Sodium Potassium Chloride Carbon Dioxide Anion Gap BUN Creatinine Est GFR (CKD-EPI)AfAm Est GFR (CKD-EPI)NonAf POC Glucometer 149 Random Glucose Lactic Acid Calcium Phosphorus Magnesium Total Bilirubin AST ALT Alkaline Phosphatase Creatine Kinase 708 H Creatine Kinase Index 0.3 CK-MB (CK-2) 2.6 Troponin I 0.06 H Total Protein Albumin Lipase Alcohol, Quantitative Blood Type Antibody Screen Crossmatch Active Medications Generic Name Dose Route Start Last Admin Trade Name Jaseq PRN Reason Stop Dose Admin Acetaminophen 1,000 mg 11/04/19 21:38 11/05/19 08:47 Ofirmev Injection - IVPB 11/05/19 21:39 1,000 mg Q6H PRN Administration PAIN LEVEL 6-10 Carvedilol 12.5 mg 11/04/19 20:39 11/05/19 07:25 Coreg - PO 12.5 mg BID PAVEL Administration Pantoprazole Sodium 80 mg/ 100 mls @ 10 mls/hr 11/04/19 18:45 11/05/19 06:18 Sodium Chloride IVPB 11/07/19 18:36 10 mls/hr Q10H PAVEL Administration 8 MG/HR Sodium Chloride 1,000 mls @ 100 mls/hr 11/04/19 20:35 11/04/19 20:58 1/2 Normal Saline IV 100 mls/hr ASDIR PAVEL Administration Potassium Chloride 10 meq in 100 mls @ 100 mls/hr 11/05/19 08:00 11/05/19 08:06 Potassium Chloride 10 Meq Premix Ivpb - IVPB 11/05/19 10:59 100 mls/hr Q60M PAVEL Administration Potassium Chloride 10 meq in 100 mls @ 100 mls/hr 11/05/19 08:30 Potassium Chloride 10 Meq Premix Ivpb - IVPB 11/05/19 11:29 Q60M PAVEL Insulin Aspart 1 vial 11/04/19 21:00 11/05/19 08:21 Novolog Vial Sliding Scale - SQ Not Given Q6H PAVEL Protocol Metoclopramide HCl 10 mg 11/05/19 03:00 11/05/19 08:06 Reglan Injection - IVPUSH 10 mg Q6H-IV PAVEL Administration Nifedipine 60 mg 11/05/19 08:26 11/05/19 08:48 Procardia Xl - PO 60 mg DAILY PAVEL Administration ASSESSMENT/PLAN: Pt is 58 yo M a hx of heart failure, HTN, IDDM, CKD, upper GI bleeding, gastroparesis, iwona lara syndrome, and right leg DVT who presents to the ED with severe abdominal pain and multiple episodes of coffee-ground emesis. Pt being admitted to ICU for monitoring due to acute upper GI blood loss. Hb is being monitored and has stabilized at 8.8 which is near his baseline (9-10). #Neuro - pt alert and oriented; no neurologic concerns #Cardio HTN Elevated troponins plateaued at .06 - not concerning - c/w carvediolol 12.5 mg; started home procardia 60 mg daily d/t elevated BPs overnight - hold lisinopril d/t CKD hx - monitor BP #Pulm - breathing well; no respiratory support needed as of right now #GI hx of gastroparesis suspected gastritis vs iwona lara tear. prior egd in 05/2019 revealed gastritis and no acute bleeding. abdominal pain - lower suspicion for ischemia given lactate of 1.6, negative peritoneal signs, negative rebound/guarding; less likely pancreatitis given lipase of 61 CT abd/pelvis - did not reveal free air, free fluid, diverticulosis without diverticulitis noted Constipation - H/H 8.8/26.9 - Dr. Manuel following. - Protonix drip transition to protonix 40 bid iv push. - NPO; will try to transition to clear diet if GI is agreeable - PT/INR; PTT; Type and screen ordered - Monitor CBC - ofirmev prn for pain - Mineral oil enema administered; will follow for bowel movement - if necessary will do manual disimpaction/miralax. #Renal hx of CKD mild hypernatremia - continue gentle hydration with .45 NS at 100 cc/hr #Heme recent hx of DVT - hold eliquis in setting of GI bleed - restart when appropriate #ID leukocytosis downtrending to 11.6 - hx of long-standing chronic leukocytosis - Ceftriaxone given for SBP ppx; no need to broaden coverage if pt remains afebrile - monitor CBC #Endo IDDM (last HbA1c in 05/2019 - 8) - HbA1c ordered - BGM + sliding scale #MSK hx of chronically elevated CPK; noted hx of rhabdo - CPK levels decreasing with hydration #FEN - monitor lytes and replete accordingly Dispo: Can be transferred to med-surg Mother (Gayla) - [phone]; Spoke with mother, she would like to be updated and would like to know how to prevent frequent hospitalizations. Visit type - Emergency Visit Emergency Visit: Yes ED Registration Date: 11/04/19 Care time: The patient presented to the Emergency Department on the above date and was hospitalized for further evaluation of their emergent condition. - New Patient This patient is new to me today: No - Critical Care Critical Care patient: Yes Total Critical Care Time (in minutes): 36 Critical Care Statement: The care of this patient involved high complexity decision making to prevent further life threatening deterioration of the patient's condition and/or to evaluate & treat vital organ system(s) failure or risk of failure. ATTENDING PHYSICIAN STATEMENT I saw and evaluated the patient. I reviewed the resident's note and discussed the case with the resident. I agree with the resident's findings and plan as documented. SUBJECTIVE: OBJECTIVE: ASSESSMENT AND PLAN:
[2019-11-05] MEDS ORDERED: LISINOPRIL 20 MG TABLET (FP) PO SCH (12:00)
--- NOTE | 2019-11-05 12:05 | EKG ---
Test Reason : Blood Pressure : / mmHG Vent. Rate : 091 BPM Atrial Rate : 091 BPM P-R Int : 214 ms QRS Dur : 092 ms QT Int : 404 ms P-R-T Axes : 087 -62 033 degrees QTc Int : 496 ms SINUS RHYTHM WITH 1ST DEGREE A-V BLOCK PULMONARY DISEASE PATTERN LEFT ANTERIOR FASCICULAR BLOCK SEPTAL INFARCT , AGE UNDETERMINED ABNORMAL ECG WHEN COMPARED WITH ECG OF 24-OCT-2019 13:09, VT INTERVAL HAS INCREASED NONSPECIFIC T WAVE ABNORMALITY NOW EVIDENT IN ANTERIOR LEADS Confirmed by MD Héctor, Chester ([id number]) on 11/05/2019 12:05:15 PM Referred By: Confirmed By:Chester Anaya MD
--- NOTE | 2019-11-05 12:26 | PN ---
Teaching Attending Note Name of Resident: Lebron Steward ATTENDING PHYSICIAN STATEMENT I saw and evaluated the patient. I reviewed the resident's note and discussed the case with the resident. I agree with the resident's findings and plan as documented. SUBJECTIVE: Pt seen and examined in the ICU. No further hematemesis. Hungry, wants to eat. Abdominal pain improving. OBJECTIVE: Vital Signs Period Temp Pulse Resp BP Sys/Aceves Pulse Ox Last 24 Hr 97.7 F-98.9 F 71-102 12-22 146-197/85-122 97-100 Intake & Output 11/02/19 11/03/19 11/04/19 11/05/19 23:59 23:59 23:59 23:59 Intake Total 1000 1100 Output Total 550 600 Balance 450 500 Weight 86.183 kg 87.997 kg Gen: NAD at rest Heart: RRR Lung: decreased breath sounds at the bases Abd: soft, nontender Ext: no edema CBC, BMP 11/05/19 05:50 11/05/19 05:50 Active Medications Acetaminophen (Ofirmev Injection -) 1,000 mg IVPB Q6H PRN PRN Reason: PAIN LEVEL 6-10 Stop: 11/05/19 21:39 Last Admin: 11/05/19 08:47 Dose: 1,000 mg Documented by: Carvedilol (Coreg -) 12.5 mg PO BID [facility] Last Admin: 11/05/19 09:17 Dose: Not Given Documented by: Sodium Chloride (1/2 Normal Saline) 1,000 mls @ 100 mls/hr IV ASDIR [facility] Last Admin: 11/04/19 20:58 Dose: 100 mls/hr Documented by: Potassium Chloride (Potassium Chloride 10 Meq Premix Ivpb -) 10 meq in 100 mls @ 100 mls/hr IVPB Q60M [facility] Stop: 11/05/19 11:29 Insulin Aspart (Novolog Vial Sliding Scale -) 1 vial SQ Q6H [facility]; Protocol Last Admin: 11/05/19 08:21 Dose: Not Given Documented by: Lisinopril (Prinivil) 20 mg PO DAILY [facility] Metoclopramide HCl (Reglan Injection -) 10 mg IVPUSH Q6H-IV PAVEL Last Admin: 11/05/19 08:06 Dose: 10 mg Documented by: Nifedipine (Procardia Xl -) 60 mg PO DAILY [facility] Last Admin: 11/05/19 08:48 Dose: 60 mg Documented by: Pantoprazole Sodium (Protonix Iv) 40 mg IVPUSH BID [facility] ASSESSMENT AND PLAN: r/o GI Bleed Anemia h/o Sayda Perry Tear Diabetic Gastroparesis HTN DM CKD h/o DVT - monitor H/H - transfuse as needed - protonix - IVF - glucose control - PO per GI - DVT prophylaxis - can monitor on floor
[2019-11-05] MEDS: PANTOPRAZOLE SODIUM 40 MG VIAL IVPUSH SCH ×2 (13:10→22:20)
[2019-11-05 13:49] LABS: HEMATOCRIT 26.9 % (35.4-49); HEMOGLOBIN 8.8 GM/dL (11.7-16.9); MCH 29.8 pg (25.7-33.7); MCHC 32.6 g/dl (32.0-35.9); MEAN CELL VOLUME 91.6 fl (80-96); MEAN PLT VOLUME 9.4 fl (7.5-11.1); PLATELET COUNT 284 K/MM3 (134-434); RBC 2.94 M/mm3 (4.00-5.60); RDW 15.8 % (11.9-15.9); WHITE BLOOD COUNT 11.6 K/mm3 (4.0-10.0)
[2019-11-05] MEDS: SODIUM CHLORIDE 0.45% 1,000 ML IV SCH ×2 (15:58→19:20)
--- NOTE | 2019-11-05 18:16 | PN ---
Progress Note (short form) - Note Progress Note: Case discussed with Dr. Mar GONZALES at bedside who recommends: Roll Bucker consult Heme consult Clear liquid Ferritin Iron-TIBC Transferrin Creon Enemas x2 Simethicone Can transfer to floors
[2019-11-05] MEDS: SODIUM PHOSPHATE/NA BIPHOS 133 ML ENEMA RC SCH (21:00)
[2019-11-05] MEDS ORDERED: POLYETHYLENE GLYCOL 3350 119 GM BTL PO ONE (22:12)
[2019-11-05] MEDS: LIPASE/PROTEASE/AMYLASE 36,000 UNIT CAPSULE PO SCH (22:20)
[2019-11-05] MEDS: SIMETHICONE 80 MG TAB.CHEW (FP) PO SCH (22:20)
[2019-11-06] MEDS: SODIUM PHOSPHATE/NA BIPHOS 133 ML ENEMA RC SCH (00:16)
[2019-11-06] MEDS: METOCLOPRAMIDE HCL INJECTION 10 MG/2 ML VIAL IVPUSH SCH ×4 (02:46→22:55)
[2019-11-06] MEDS: INSULIN SLIDING SCALE (NOVOLOG) 1 VIAL SQ SCH ×5 (03:12→22:54)
[2019-11-06 06:34] LABS: HEMATOCRIT 24.7 % (35.4-49); MCH 29.1 pg (25.7-33.7); MCHC 32.2 g/dl (32.0-35.9); MEAN CELL VOLUME 90.4 fl (80-96); MEAN PLT VOLUME 8.6 fl (7.5-11.1); PLATELET COUNT 268 K/MM3 (134-434); RBC 2.73 M/mm3 (4.00-5.60); RDW 15.2 % (11.9-15.9); WHITE BLOOD COUNT 11.5 K/mm3 (4.0-10.0)
[2019-11-06] MEDS ORDERED: CARVEDILOL 12.5 MG TABLET (FP) PO ONE (06:44)
[2019-11-06 07:08] LABS: ALBUMIN 1.9 g/dl (3.4-5.0); BILIRUBIN,TOTAL 0.3 mg/dL (0.2-1); BLOOD UREA NITROGEN 19.9 mg/dL (7-18); CALCIUM 8.1 mg/dL (8.5-10.1); MAGNESIUM 1.8 mg/dL (1.8-2.4); PHOSPHOROUS 3.8 mg/dL (2.5-4.9); POTASSIUM 3.7 mmol/L (3.5-5.1); TOT PROT 4.4 g/dl (6.4-8.2)
--- NOTE | 2019-11-06 07:54 | PN ---
Physical Exam: SUBJECTIVE: Patient seen and examined Pt seen and examined in the ICU. No acute events overnight. Patient was out of bed and ambulatory. Mild abdominal pain. Well controlled with reglan. Continues to have bowel movements s/p mineral oil enema and miralax in last 24 hours. BP elevated this morning, coreg and procardia dose given early. Denies n/v, diarrhea, melena, hematochezia, headache, changes in vision. OBJECTIVE: Vital Signs Period Temp Pulse Resp BP Sys/Aceves Pulse Ox Last 24 Hr 97.7 F-98.9 F 69-82 12-18 99-186/57-113 98-100 GENERAL: The patient is awake, alert, and fully oriented, in no acute distress. HEAD: Normal with no signs of trauma. EYES: PERRL, extraocular movements intact, sclera anicteric, conjunctiva clear. ENT: oropharynx clear without exudates, moist mucous membranes. NECK: no LAD, neck supple with full ROM LUNGS: Breath sounds equal, clear to auscultation bilaterally, no wheezes, no crackles, no accessory muscle use. HEART: Regular rate and rhythm, S1, S2 without murmur, rub or gallop. ABDOMEN: Soft, nondistended, mild tenderness to palpation of mid- abdomen/epigastric region with no rebound or guarding, no hepatosplenomegaly, no masses, normoactive bowel sounds. EXTREMITIES: 2+ pulses, warm, well-perfused, no edema. NEUROLOGICAL: Cranial nerves II through XII grossly intact. SKIN: Warm, normal turgor, no rashes or lesions noted Laboratory Results - last 24 hr 11/05/19 11/05/19 11/05/19 05:50 08:14 12:40 WBC 11.6 H RBC 2.94 L Hgb 8.8 L Hct 26.9 L MCV 91.6 MCH 29.8 MCHC 32.6 RDW 15.8 Plt Count 284 MPV 9.4 Sodium Potassium Chloride Carbon Dioxide Anion Gap BUN Creatinine Est GFR (CKD-EPI)AfAm Est GFR (CKD-EPI)NonAf POC Glucometer 149 Random Glucose Hemoglobin A1c % 7.9 H Calcium Phosphorus Magnesium Iron TIBC Iron Saturation Unsaturated IBC Ferritin Total Bilirubin AST ALT Alkaline Phosphatase Total Protein Albumin 11/05/19 11/05/19 11/06/19 13:57 22:04 02:49 WBC RBC Hgb Hct MCV MCH MCHC RDW Plt Count MPV Sodium Potassium Chloride Carbon Dioxide Anion Gap BUN Creatinine Est GFR (CKD-EPI)AfAm Est GFR (CKD-EPI)NonAf POC Glucometer 154 184 93 Random Glucose Hemoglobin A1c % Calcium Phosphorus Magnesium Iron TIBC Iron Saturation Unsaturated IBC Ferritin Total Bilirubin AST ALT Alkaline Phosphatase Total Protein Albumin 11/06/19 11/06/19 11/06/19 06:00 06:00 06:00 WBC 11.5 H RBC 2.73 L Hgb 8.0 L Hct 24.7 L MCV 90.4 MCH 29.1 MCHC 32.2 RDW 15.2 Plt Count 268 MPV 8.6 Sodium 142 Potassium 3.7 Chloride 109 H Carbon Dioxide 27 Anion Gap 6 L BUN 19.9 H Creatinine 2.0 H Est GFR (CKD-EPI)AfAm 41.99 Est GFR (CKD-EPI)NonAf 36.23 POC Glucometer Random Glucose 104 Hemoglobin A1c % Calcium 8.1 L Phosphorus 3.8 Magnesium 1.8 Iron 46 L TIBC 171 L Iron Saturation 26 Unsaturated IBC 125 L Ferritin 70.3 Total Bilirubin 0.3 AST 24 ALT 26 Alkaline Phosphatase 76 Total Protein 4.4 L Albumin 1.9 L Active Medications Generic Name Dose Route Start Last Admin Trade Name Freq PRN Reason Stop Dose Admin Carvedilol 12.5 mg 11/04/19 20:39 11/05/19 22:20 Coreg - PO 12.5 mg BID PAVEL Administration Sodium Chloride 1,000 mls @ 200 mls/hr 11/05/19 17:47 11/05/19 19:20 1/2 Normal Saline IV 200 mls/hr ASDIR PAVEL Administration Insulin Aspart 1 vial 11/04/19 21:00 11/06/19 03:12 Novolog Vial Sliding Scale - SQ Not Given Q6H PAVEL Protocol Metoclopramide HCl 10 mg 11/05/19 03:00 11/06/19 02:46 Reglan Injection - IVPUSH 10 mg Q6H-IV PAVEL Administration Nifedipine 60 mg 11/05/19 08:26 11/05/19 08:48 Procardia Xl - PO 60 mg DAILY PAVEL Administration Pancrelipase 1 cap 11/05/19 18:15 11/05/19 22:[address] 36,000 Units Capsule PO 1 cap TIDCM PAVEL Administration Pantoprazole Sodium 40 mg 11/05/19 11:45 11/05/19 22:20 Protonix Iv IVPUSH 40 mg BID PAVEL Administration Simethicone 80 mg 11/05/19 22:00 11/05/19 22:20 Mylicon - PO 80 mg QID PAVEL Administration ASSESSMENT/PLAN: Pt is 58 yo M a hx of heart failure, HTN, IDDM, CKD, upper GI bleeding, gastroparesis, iwona lara syndrome, and right leg DVT who presents to the ED with severe abdominal pain and multiple episodes of coffee-ground emesis. Pt being admitted to ICU for monitoring due to acute upper GI blood loss. Hb is being monitored and has stabilized. #Neuro - pt alert and oriented; no neurologic concerns #Cardio HTN - pt becoming hypertensive in the morning (gave both coreg and procardia early today) - c/w coreg 12.5 mg; c/w procardia 60 mg daily - hold lisinopril d/t CKD hx - monitor BP #Pulm - breathing well; no respiratory support needed as of right now #GI hx of gastroparesis suspected gastritis vs iwona lara tear. prior egd in 05/2019 revealed gastritis and no acute bleeding. abdominal pain - lower suspicion for ischemia given lactate of 1.6, negative peritoneal signs, negative rebound/guarding; less likely pancreatitis given lipase of 61 CT abd/pelvis - did not reveal free air, free fluid, diverticulosis without diverticulitis noted - H/H 8.0/24.7 - Dr. Manuel following; appreciate GI recs: Iron studies, creon, enemas, simethicone, clear liquid diet - c/w protonix 40 bid iv push - Monitor CBC - Mineral oil enema administered and miralax givem - patient has been having BMs since #Renal hx of CKD mild hypernatremia is now resolved - monitor BUN/Cr #Heme recent hx of DVT - hold eliquis in setting of GI bleed - restart when appropriate #ID leukocytosis downtrending to 11.5 - hx of long-standing chronic leukocytosis - Ceftriaxone given in ED for SBP ppx; no need to broaden coverage if pt remains afebrile - monitor CBC #Endo IDDM (HbA1c 7.9 - 7/7) - HbA1c ordered - BGM + sliding scale #MSK hx of chronically elevated CPK; noted hx of rhabdo - CPK levels now decreased #FEN - monitor lytes and replete accordingly Dispo: Can be transferred to med-surg Mother (Gayla) - [phone]; Spoke with mother, she would like to be updated and would like to know how to prevent frequent hospitalizations. Visit type - Emergency Visit Emergency Visit: Yes ED Registration Date: 11/04/19 Care time: The patient presented to the Emergency Department on the above date and was hospitalized for further evaluation of their emergent condition. - New Patient This patient is new to me today: Yes Date on this admission: 11/06/19 - Critical Care Critical Care patient: Yes Total Critical Care Time (in minutes): 38 Critical Care Statement: The care of this patient involved high complexity decision making to prevent further life threatening deterioration of the patient's condition and/or to evaluate & treat vital organ system(s) failure or risk of failure. ATTENDING PHYSICIAN STATEMENT I saw and evaluated the patient. I reviewed the resident's note and discussed the case with the resident. I agree with the resident's findings and plan as documented. SUBJECTIVE: OBJECTIVE: ASSESSMENT AND PLAN:
[2019-11-06] MEDS: LIPASE/PROTEASE/AMYLASE 36,000 UNIT CAPSULE PO SCH ×3 (08:10→17:17)
[2019-11-06] MEDS: NIFEdipine E.R 60 MG TABLET PO SCH (09:00)
[2019-11-06] MEDS: SIMETHICONE 80 MG TAB.CHEW (FP) PO SCH ×4 (09:39→22:55)
[2019-11-06] MEDS: PANTOPRAZOLE SODIUM 40 MG VIAL IVPUSH SCH ×2 (09:39→22:55)
[2019-11-06] MEDS ORDERED: PT OWN MED DRAWER 7, Y5N ONE (12:02)
--- NOTE | 2019-11-06 12:13 | PN ---
Teaching Attending Note Name of Resident: Lebron Steward ATTENDING PHYSICIAN STATEMENT I saw and evaluated the patient. I reviewed the resident's note and discussed the case with the resident. I agree with the resident's findings and plan as documented. SUBJECTIVE: Pt seen and examined in the ICU. No further hematemesis. Tolerating PO. Abdo moo pain improving. H/H has been stable. OBJECTIVE: Vital Signs Period Temp Pulse Resp BP Sys/Aceves Pulse Ox Last 24 Hr 98.1 F-98.9 F 69-88 13-18 99-183/57-102 98-98 Intake & Output 11/03/19 11/04/19 11/05/19 11/06/19 23:59 23:59 23:59 23:59 Intake Total 1000 4340 Output Total 550 1220 Balance 450 3120 Weight 86.183 kg 87.997 kg 86.364 kg Gen: NAD at rest Heart: RRR Lung: decreased breath sounds at the bases Abd: soft, nontender Ext: no edema CBC, BMP 11/06/19 06:00 11/06/19 06:00 Active Medications Carvedilol (Coreg -) 12.5 mg PO BID [facility] Last Admin: 11/05/19 22:20 Dose: 12.5 mg Documented by: Sodium Chloride (1/2 Normal Saline) 1,000 mls @ 200 mls/hr IV ASDIR [facility] Last Admin: 11/05/19 19:20 Dose: 200 mls/hr Documented by: Insulin Aspart (Novolog Vial Sliding Scale -) 1 vial SQ Q6H [facility]; Protocol Last Admin: 11/06/19 10:34 Dose: 2 unit Documented by: Metoclopramide HCl (Reglan Injection -) 10 mg IVPUSH Q6H-IV [facility] Last Admin: 11/06/19 09:39 Dose: 10 mg Documented by: Nifedipine (Procardia Xl -) 60 mg PO DAILY [facility] Last Admin: 11/06/19 09:00 Dose: 60 mg Documented by: Pancrelipase (Angelaon Dr 36,000 Units Capsule) 1 cap PO TIDCM [facility] Last Admin: 11/06/19 08:10 Dose: 1 cap Documented by: Pantoprazole Sodium (Protonix Iv) 40 mg IVPUSH BID [facility] Last Admin: 11/06/19 09:39 Dose: 40 mg Documented by: Simethicone (Mylicon -) 80 mg PO QID PAVEL Last Admin: 11/06/19 09:39 Dose: 80 mg Documented by: ASSESSMENT AND PLAN: r/o GI Bleed Anemia h/o Sayda Perry Tear Diabetic Gastroparesis HTN DM CKD h/o DVT - monitor H/H - transfuse as needed - protonix - IVF - glucose control - PO per GI - DVT prophylaxis - can monitor on floor
--- NOTE | 2019-11-06 13:59 | CONSULT ---
Consultation: REQUESTING PROVIDER: Dr. Manuel CONSULT REQUEST: We have been asked to medically evaluate this patient for anemia. HISTORY OF PRESENT ILLNESS: Pt. is a well known 58 y.o. M w/ PMHx. of HFpEF, HTN, DM(w/ gastroparesis), CKD, BPH(s/p prostate surgery), Hx. of multiple upper GIBs, Hx. of Sayda-Perry tears, and recently diagnosed on RLE DVT (on Eliquis) presents for "20-30" episodes of coffee-ground emesis. Pt. in the past year has been evaluated here for same with unremarkable colonoscopy in March, EGD significant for gastritis in gastric body, focal hyperplasia in duodenum, and duodenal polyp? in May and a, unremarkable( as reported by patient) endoscopy 2 weeks ago at [facility]. Pt. hospital course there was complicated by RLE DVT and was placed on Eliquis. Pt. states that since June he has been having persistent epigastric pain with intermittent episodes of coffee ground emesis not temporally related to episodes of nightsweats. Pt. states that he has had 15lb. weight loss since June as well. Pt. states that he can eat intermittently for about 4-5 days and then have these episodes of emesis. Pt. denies any hematuria or hematochezia and thinks he has a good appetite. Pt. endorses that his father of cholangiocarcinoma. Pt. denies and shortness of breath, chest pain, difficulty swallowing, constipation(had BM today), diarrhea, headache or fevers. Pt. lives with mother. REVIEW OF SYSTEMS: As above PHYSICAL EXAMINATION Vital Signs - 24 hr 11/05/19 11/05/19 11/05/19 14:00 16:00 18:00 Temperature 98.1 F 98.2 F Pulse Rate 72 72 Respiratory 18 15 Rate Blood Pressure 99/64 100/57 L 131/79 O2 Sat by Pulse Oximetry (%) 11/05/19 11/05/19 11/06/19 21:00 22:00 01:00 Temperature 98.5 F Pulse Rate 81 82 69 Respiratory 13 14 14 Rate Blood Pressure 147/91 165/98 155/86 O2 Sat by Pulse 98 Oximetry (%) 11/06/19 11/06/19 11/06/19 02:00 06:00 06:43 Temperature 98.9 F 98.6 F Pulse Rate 75 78 76 Respiratory 14 14 14 Rate Blood Pressure 158/98 179/99 H 172/101 H O2 Sat by Pulse Oximetry (%) 11/06/19 11/06/19 11/06/19 07:00 08:00 09:00 Temperature Pulse Rate 88 74 78 Respiratory 14 16 14 Rate Blood Pressure 172/101 H 183/102 H 119/77 O2 Sat by Pulse 98 Oximetry (%) 11/06/19 11/06/19 10:00 12:00 Temperature 98.4 F Pulse Rate 70 74 Respiratory 14 71 H Rate Blood Pressure 136/75 126/87 O2 Sat by Pulse Oximetry (%) GENERAL: Awake, alert, and fully oriented, in no acute distress. HEAD: Normal with no signs of trauma. EYES: Extraocular movements intact, sclera anicteric, conjunctiva clear. EARS, NOSE, THROAT: Ears normal, nares patent, oropharynx clear without exudates. Moist mucous membranes. NECK: Normal range of motion, supple without lymphadenopathy, JVD, or masses. LUNGS: Breath sounds equal, clear to auscultation bilaterally. No wheezes, and no crackles. No accessory muscle use. HEART: Regular rate and rhythm, normal S1 and S2 without murmur ABDOMEN: Soft, epigastric tenderness, bowel sounds positive, non-distended MUSCULOSKELETAL: Normal range of motion at all joints. No bony deformities or tenderness. No CVA tenderness. UPPER EXTREMITIES: 2+ pulses, warm, well-perfused. No cyanosis. No peripheral edema. LOWER EXTREMITIES: 2+ dorsal pedal pulses, warm, well-perfused. No calf tenderness. No peripheral edema. RLE skin grafts noted NEUROLOGICAL: Gait not asessed. PSYCHIATRIC: Cooperative. Good eye contact. Appropriate mood and affect. SKIN: Warm, dry, normal turgor Laboratory Results - last 24 hr 11/05/19 11/05/19 11/05/19 12:40 13:57 22:04 WBC 11.6 H RBC 2.94 L Hgb 8.8 L Hct 26.9 L MCV 91.6 MCH 29.8 MCHC 32.6 RDW 15.8 Plt Count 284 MPV 9.4 Sodium Potassium Chloride Carbon Dioxide Anion Gap BUN Creatinine Est GFR (CKD-EPI)AfAm Est GFR (CKD-EPI)NonAf POC Glucometer 154 184 Random Glucose Calcium Phosphorus Magnesium Iron TIBC Iron Saturation Unsaturated IBC Ferritin Total Bilirubin AST ALT Alkaline Phosphatase Total Protein Albumin 11/06/19 11/06/19 11/06/19 02:49 06:00 06:00 WBC 11.5 H RBC 2.73 L Hgb 8.0 L Hct 24.7 L MCV 90.4 MCH 29.1 MCHC 32.2 RDW 15.2 Plt Count 268 MPV 8.6 Sodium 142 Potassium 3.7 Chloride 109 H Carbon Dioxide 27 Anion Gap 6 L BUN 19.9 H Creatinine 2.0 H Est GFR (CKD-EPI)AfAm 41.99 Est GFR (CKD-EPI)NonAf 36.23 POC Glucometer 93 Random Glucose 104 Calcium 8.1 L Phosphorus 3.8 Magnesium 1.8 Iron TIBC Iron Saturation Unsaturated IBC Ferritin Total Bilirubin 0.3 AST 24 ALT 26 Alkaline Phosphatase 76 Total Protein 4.4 L Albumin 1.9 L 11/06/19 11/06/19 06:00 09:51 WBC RBC Hgb Hct MCV MCH MCHC RDW Plt Count MPV Sodium Potassium Chloride Carbon Dioxide Anion Gap BUN Creatinine Est GFR (CKD-EPI)AfAm Est GFR (CKD-EPI)NonAf POC Glucometer 159 Random Glucose Calcium Phosphorus Magnesium Iron 46 L TIBC 171 L Iron Saturation 26 Unsaturated IBC 125 L Ferritin 70.3 Total Bilirubin AST ALT Alkaline Phosphatase Total Protein Albumin Active Medications Generic Name Dose Route Start Last Admin Trade Name Freq PRN Reason Stop Dose Admin Carvedilol 12.5 mg 11/04/19 20:39 11/05/19 22:20 Coreg - PO 12.5 mg BID PAVEL Administration Sodium Chloride 1,000 mls @ 200 mls/hr 11/05/19 17:47 11/05/19 19:20 1/2 Normal Saline IV 200 mls/hr ASDIR PAVEL Administration Insulin Aspart 1 vial 11/04/19 21:00 11/06/19 12:17 Novolog Vial Sliding Scale - SQ Not Given Q6H PAVEL Protocol Metoclopramide HCl 10 mg 11/05/19 03:00 11/06/19 09:39 Reglan Injection - IVPUSH 10 mg Q6H-IV PAVEL Administration Nifedipine 60 mg 11/05/19 08:26 11/06/19 09:00 Procardia Xl - PO 60 mg DAILY PAVEL Administration Pancrelipase 1 cap 11/05/19 18:15 11/06/19 12:44 Nena Hodge 36,000 Units Capsule PO 1 cap TIDCM PAVEL Administration Pantoprazole Sodium 40 mg 11/05/19 11:45 11/06/19 09:39 Protonix Iv IVPUSH 40 mg BID PAVEL Administration Simethicone 80 mg 11/05/19 22:00 11/06/19 09:39 Mylicon - PO 80 mg QID PAVEL Administration ASSESSMENT/PLAN: Pt. is a well known 58 y.o. M w/ PMHx. of HFpEF, HTN, DM(w/ gastroparesis), CKD, BPH(s/p prostate surgery), Hx. of multiple upper GIBs, Hx. of Sayda-Perry tears, and recently diagnosed on RLE DVT (on Eliquis) presents for "20-30" episodes of coffee-ground emesis. #Anemia likely 2/2 multiple factors Blood loss anemia, RUTH, nutritrional deficiency? will r/o Malignancy MOST LIKELY anemia of chronic disease as Pt. has low Iron, Low/normal TIBC and Low/normal ferritin Iron: 46 TIBC: 171 Ferritin: 70.3 Pt. has known chronic inflammation of the stomach and duodenum. f/u B12 and Folic acid f/u CT Chest non-contrast start Hep Gtt no bolus for known DVT; f/u Duplex Consult to Vascular and IR placed for IVC Filter evaluation, will need to coordinate for filter placement CBC Q12H Recommended repeating EGD to localize source of bleed. Consider transfer for double balloon enteroscopy and GI pacemeaker. Dispo: We will continue to follow the patient. Thank you for this consultative opportunity. Visit type - Emergency Visit Emergency Visit: Yes ED Registration Date: 11/04/19 Care time: The patient presented to the Emergency Department on the above date and was hospitalized for further evaluation of their emergent condition. - New Patient This patient is new to me today: Yes Date on this admission: 11/06/19 - Critical Care Critical Care patient: Yes Total Critical Care Time (in minutes): 45 Critical Care Statement: The care of this patient involved high complexity decision making to prevent further life threatening deterioration of the patient's condition and/or to evaluate & treat vital organ system(s) failure or risk of failure. ATTENDING PHYSICIAN STATEMENT I saw and evaluated the patient. I reviewed the resident's note and discussed the case with the resident. I agree with the resident's findings and plan as documented. SUBJECTIVE: OBJECTIVE: ASSESSMENT AND PLAN:
--- NOTE | 2019-11-06 14:01 | PN ---
Progress Note (short form) - Note Progress Note: TRANSFER NOTE 58 yo M PMHx diastolic heart failure, HTN, IDDM, CKD, upper GI bleeding, gastroparesis, iwona alra tears, and right leg DVT who presents to the ED with severe abdominal pain and multiple episodes of coffee-ground emesis. Pt jessica llamas admitted to ICU for monitoring due to acute upper GI blood loss. GI and Heme/Onc consulted. CT A/P revealed diverticulosis (please refer to report). GI recommended medical management and pt's symptoms improved. Hb/Hct was monitored during his ICU stay, home dose NOAC held, did not require transfusion, however Hgb trending down. He has not had any episodes of coffee-ground emesis in the ICU. Pt remained hypertensive; ACEi held, BP improved with all other home dose cardiac meds. He had elevated CPK levels upon admission - resolved with gentle hydration. Pt stable for transfer to med surg.
--- NOTE | 2019-11-06 15:52 | PN ---
GI Progress Note Subjective: abdominal pain improved., no nausea and vomiting, no melena and no rectal bleeding - Objective Vital Signs: Vital Signs Temperature 98 F 11/06/19 14:00 Pulse Rate 71 11/06/19 14:00 Respiratory Rate 20 11/06/19 14:00 Blood Pressure 104/64 11/06/19 14:00 O2 Sat by Pulse Oximetry (%) 98 11/06/19 09:00 Gastrointestinal Inspection: No: Ascites, Distention ...Palpate: Yes: Soft, Tenderness, Epigastium. No: Firm/Rigid, Guarding, Hepatomegaly, Mass, Pulsatile Mass, Splenomegaly, Tenderness Labs: CBC, BMP 11/06/19 06:00 11/06/19 06:00 INR, PTT INR 0.99 (0.83-1.09) 11/04/19 14:30 Problem List - Problems (1) Abdominal pain Assessment/Plan: intractable abdominal pain etiology unclear, extensive w/u at [facility] was done , reports not available for review R> please obtain records from [facility] advance diet as tolerated Code(s): R10.9 - UNSPECIFIED ABDOMINAL PAIN Qualifiers: Abdominal location: epigastric Qualified Code(s): R10.13 - Epigastric pain
[2019-11-06] MEDS: SODIUM CHLORIDE 0.45% 1,000 ML IV SCH (17:17)
[2019-11-06] MEDS ORDERED: POLYETHYLENE GLYCOL 3350 119 GM BTL PO PRN (18:08)
[2019-11-06] MEDS ORDERED: HEPARIN NA (PORCINE) 5,000 UNITS/ML 1ML VIAL IVPUSH PRN ×2 (19:05)
[2019-11-06] MEDS ORDERED: HEPARIN - 25,000 UNIT in SODIUM CHLORIDE 495 ML IV SCH (19:15)
[2019-11-06 21:59] LABS: HEMATOCRIT 24.5 % (35.4-49); HEMOGLOBIN 8.1 GM/dL (11.7-16.9); MEAN CELL VOLUME 90.8 fl (80-96); MEAN PLT VOLUME 9.3 fl (7.5-11.1); PLATELET COUNT 268 K/MM3 (134-434); RDW 15.5 % (11.9-15.9); WHITE BLOOD COUNT 10.6 K/mm3 (4.0-10.0)
[2019-11-06] MEDS: CARVEDILOL 12.5 MG TABLET (FP) PO SCH (22:55)
--- NOTE | 2019-11-06 23:30 | PN ---
Teaching Attending Note Name of Resident: Meng Moon ATTENDING PHYSICIAN STATEMENT I saw and evaluated the patient. I reviewed the resident's note and discussed the case with the resident. I agree with the resident's findings and plan as documented. ASSESSMENT AND PLAN: 58yo M with history of HTN, DM, HLD, CKD III , recent COVID + 10/19, neg. 10/27 and 11/03), Pt was admitted sveral times to [facility] with nausea, vomiting, abdominal pain. symptoms thought likely multifactorial (cannabis hyperemesis, gastroparesis, GERD) since 07/18 10/28 EGD ---esophagitis, gastritis, ( biopsies pending) Gastric emptying study was done and showed markedly delayed emptying. This w/u was done at [facility]. Patient was started on pantoprazole 40mg daily and sucralfate 1g BID on discharge. Also given metoclopramide 5mg daily x7days. Recent Rt. popliteal /distal femoral DVT ( 10/27 ? provoked in the setting of COVID infection) Patient was initially treated with enoxaparin, then dischrged on eliquis from [facility] on 10/30 Readmitted to [facility] 11/03 with several episodes of coffee ground emesis. Continues to have chronic epigastric pain No bright red bleeding per rectum or melena. No more episodes of coffee ground emesis for 2 days Hgb 8.1-9.9 this admission Would recheck duplex lower extremities Would recommend GI input regarding resuming anticoagulation, in the setting of ongoing epigastric pain , intermittent n/v ? coffee ground emesis check Utox ? marijuana induced cyclical emesis + diabeteic gastroperesis + gas tritis//esophagitisOn protinix IF unable to anticoagulate due to ongoing gi issues may need ivc filter--- consult vascular CT a/p w/ contrast at [facility] 05/20 -- esophageal thickening and thickening of sigmoid and transverse colon. thickening of bladder Ct noncontrast this admission --no obvious pathology Father had cholangioca? check CT noncontrast
--- NOTE | 2019-11-07 00:33 | PN ---
Progress Note (short form) - Note Progress Note: ICU Night Float Progress Note: Case discussed with Dr. Prachi Jerez of Hem-Onc service. Will hold heparin drip overnight pending GI recommendations in the morning. Received [facility] Records from September 2019 admission. Pt NEVER underwent endoscopy. The procedure was deferred after pt found to be COVID positive. He was discharged and referred back to Dr. Manuel for clinic follow up. A paper copy of these records are now included in the pts chart binder. Gabino Montgomery M.D., PGY3 ICU Service Resident 07 November 2019
[2019-11-07] MEDS: METOCLOPRAMIDE HCL INJECTION 10 MG/2 ML VIAL IVPUSH SCH ×3 (05:15→15:55)
[2019-11-07] MEDS: INSULIN SLIDING SCALE (NOVOLOG) 1 VIAL SQ SCH ×3 (06:26→15:07)
[2019-11-07 06:28] LABS: HEMATOCRIT 23.4 % (35.4-49); HEMOGLOBIN 7.7 GM/dL (11.7-16.9); MCH 29.7 pg (25.7-33.7); MCHC 32.9 g/dl (32.0-35.9); MEAN CELL VOLUME 90.4 fl (80-96); MEAN PLT VOLUME 8.5 fl (7.5-11.1); PLATELET COUNT 267 K/MM3 (134-434); RBC 2.59 M/mm3 (4.00-5.60); RDW 15.2 % (11.9-15.9); WHITE BLOOD COUNT 9.8 K/mm3 (4.0-10.0)
[2019-11-07 07:00] LABS: ALBUMIN 1.9 g/dl (3.4-5.0); BILIRUBIN,TOTAL 0.4 mg/dL (0.2-1); BLOOD UREA NITROGEN 16.6 mg/dL (7-18); CALCIUM 7.3 mg/dL (8.5-10.1); CREATININE 2.1 mg/dL (0.55-1.3); MAGNESIUM 1.6 mg/dL (1.8-2.4); PHOSPHOROUS 3.9 mg/dL (2.5-4.9); POTASSIUM 3.6 mmol/L (3.5-5.1); TOT PROT 4.5 g/dl (6.4-8.2)
--- NOTE | 2019-11-07 08:07 | PN ---
Physical Exam: SUBJECTIVE: Patient seen and examined Heparin drip started at 8pm. 09:30pm as per heparin drip to be on hold due to GI bleed hx. Given consent to obtain [facility] records. U/S done overnight. +DVT education given regarding signs/symptoms. No complaints of SOB/pain. Patient resting comfortably as of now. Will hold heparin drip overnight pending GI recommendations in the morning. [facility]. Pt NEVER underwent endoscopy. The procedure was deferred after pt found to be COVID positive Coordinate with GI and Vascular Father with hx of cholangio carcinoma. Recent weight loss - CT chest as per Dr. Velarde. OBJECTIVE: Vital Signs Period Temp Pulse Resp BP Sys/Aceves Pulse Ox Last 24 Hr 98 F-98.5 F 69-78 14-20 104-183/64-102 98-98 GENERAL: The patient is awake, alert, and fully oriented, in no acute distress. HEAD: Normal with no signs of trauma. EYES: PERRL, extraocular movements intact, sclera anicteric, conjunctiva clear. ENT: oropharynx clear without exudates, moist mucous membranes. NECK: no LAD, neck supple with full ROM LUNGS: Breath sounds equal, clear to auscultation bilaterally, no wheezes, no crackles, no accessory muscle use. HEART: Regular rate and rhythm, S1, S2 without murmur, rub or gallop. ABDOMEN: Soft, nondistended, mild tenderness to palpation of mid- abdomen/epigastric region with no rebound or guarding, no hepatosplenomegaly, no masses, normoactive bowel sounds. EXTREMITIES: 2+ pulses, warm, well-perfused, no edema. NEUROLOGICAL: Cranial nerves II through XII grossly intact. SKIN: Warm, normal turgor, no rashes or lesions noted Laboratory Results - last 24 hr 11/04/19 11/06/19 11/06/19 17:00 09:51 14:43 WBC RBC Hgb Hct MCV MCH MCHC RDW Plt Count MPV PTT (Actin FS) Sodium Potassium Chloride Carbon Dioxide Anion Gap BUN Creatinine Est GFR (CKD-EPI)AfAm Est GFR (CKD-EPI)NonAf POC Glucometer 159 180 Random Glucose Calcium Phosphorus Magnesium Total Bilirubin AST ALT Alkaline Phosphatase Total Protein Albumin Vitamin B12 Serum Folate COVID-19 (KERA) Not detected 11/06/19 11/06/19 11/07/19 21:20 22:49 06:00 WBC 10.6 H 9.8 RBC 2.70 L 2.59 L Hgb 8.1 L 7.7 L Hct 24.5 L 23.4 L MCV 90.8 90.4 MCH 30.0 29.7 MCHC 33.0 32.9 RDW 15.5 15.2 Plt Count 268 267 MPV 9.3 8.5 PTT (Actin FS) Sodium Potassium Chloride Carbon Dioxide Anion Gap BUN Creatinine Est GFR (CKD-EPI)AfAm Est GFR (CKD-EPI)NonAf POC Glucometer 92 Random Glucose Calcium Phosphorus Magnesium Total Bilirubin AST ALT Alkaline Phosphatase Total Protein Albumin Vitamin B12 Serum Folate COVID-19 (KERA) 11/07/19 11/07/19 11/07/19 06:00 06:00 06:00 WBC RBC Hgb Hct MCV MCH MCHC RDW Plt Count MPV PTT (Actin FS) 28.6 Sodium 139 Potassium 3.6 Chloride 107 Carbon Dioxide 27 Anion Gap 5 L BUN 16.6 Creatinine 2.1 H Est GFR (CKD-EPI)AfAm 39.59 Est GFR (CKD-EPI)NonAf 34.16 POC Glucometer Random Glucose 99 Calcium 7.3 L Phosphorus 3.9 Magnesium 1.6 L Total Bilirubin 0.4 AST 25 ALT 25 Alkaline Phosphatase 78 Total Protein 4.5 L Albumin 1.9 L Vitamin B12 536 Serum Folate 6 COVID-19 (KERA) 11/07/19 06:14 WBC RBC Hgb Hct MCV MCH MCHC RDW Plt Count MPV PTT (Actin FS) Sodium Potassium Chloride Carbon Dioxide Anion Gap BUN Creatinine Est GFR (CKD-EPI)AfAm Est GFR (CKD-EPI)NonAf POC Glucometer 97 Random Glucose Calcium Phosphorus Magnesium Total Bilirubin AST ALT Alkaline Phosphatase Total Protein Albumin Vitamin B12 Serum Folate COVID-19 (KERA) Active Medications Generic Name Dose Route Start Last Admin Trade Name Freq PRN Reason Stop Dose Admin Carvedilol 12.5 mg 11/04/19 20:39 11/06/19 22:55 Coreg - PO 12.5 mg BID PAVEL Administration Heparin Sodium (Porcine) 1,000 unit 11/06/19 19:05 Heparin - IVPUSH PRN PRN Heparin Heparin Sodium (Porcine) 5,000 unit 11/06/19 19:05 Heparin - IVPUSH PRN PRN Heparin Sodium Chloride 1,000 mls @ 200 mls/hr 11/05/19 17:47 11/06/19 17:17 1/2 Normal Saline IV 200 mls/hr ASDIR PAVEL Administration Heparin Sodium (Porcine) 25, 500 mls @ 16 mls/hr 11/06/19 19:15 11/06/19 21:30 000 unit/ Sodium Chloride IV 0 unit/hr TITR PAVEL 0 mls/hr Titration Protocol 800 UNIT/HR Insulin Aspart 1 vial 11/04/19 21:00 11/07/19 06:26 Novolog Vial Sliding Scale - SQ Not Given Q6H PAVEL Protocol Metoclopramide HCl 10 mg 11/05/19 03:00 11/07/19 05:15 Reglan Injection - IVPUSH 10 mg Q6H-IV PAVEL Administration Nifedipine 60 mg 11/05/19 08:26 11/06/19 09:00 Procardia Xl - PO 60 mg DAILY PAVEL Administration Pancrelipase 1 cap 11/05/19 18:15 11/06/19 17:17 Crepaxton Hodge 36,000 Units Capsule PO 1 cap TIDCM PAVEL Administration Pantoprazole Sodium 40 mg 11/05/19 11:45 11/06/19 22:55 Protonix Iv IVPUSH 40 mg BID PAVEL Administration Polyethylene Glycol 17 gm 11/06/19 18:08 Miralax (For Daily Use) - PO BID PRN CONSTIPATION Simethicone 80 mg 11/05/19 22:00 11/06/19 22:55 Mylicon - PO 80 mg QID PAVEL Administration ASSESSMENT/PLAN: Pt is 58 yo M a hx of heart failure, HTN, IDDM, CKD, upper GI bleeding, gastroparesis, iwona lara syndrome, and right leg DVT who presents to the ED with severe abdominal pain and multiple episodes of coffee-ground emesis. Pt being admitted to ICU for monitoring due to acute upper GI blood loss. Hb is being monitored and has stabilized. #Neuro - pt alert and oriented; no neurologic concerns #Cardio HTN - pt becoming hypertensive in the morning (gave both coreg and procardia early today) - c/w coreg 12.5 mg; c/w procardia 60 mg daily - hold lisinopril d/t CKD hx - monitor BP #Pulm - breathing well; no respiratory support needed as of right now #GI hx of gastroparesis suspected gastritis vs iwona lara tear. prior egd in 05/2019 revealed gastritis and no acute bleeding. abdominal pain - lower suspicion for ischemia given lactate of 1.6, negative peritoneal signs, negative rebound/guarding; less likely pancreatitis given lipase of 61 CT abd/pelvis - did not reveal free air, free fluid, diverticulosis without diverticulitis noted - H/H 8.0/24.7 - Dr. Manuel following; appreciate GI recs: Iron studies, creon, enemas, simethicone, clear liquid diet - c/w protonix 40 bid iv push - Monitor CBC - Mineral oil enema administered and miralax givem - patient has been having BMs since #Renal hx of CKD mild hypernatremia is now resolved - monitor BUN/Cr #Heme recent hx of DVT - hold eliquis in setting of GI bleed - restart when appropriate #ID leukocytosis downtrending to 11.5 - hx of long-standing chronic leukocytosis - Ceftriaxone given in ED for SBP ppx; no need to broaden coverage if pt remains afebrile - monitor CBC #Endo IDDM (HbA1c 7.9 - 7/) - HbA1c ordered - BGM + sliding scale #MSK hx of chronically elevated CPK; noted hx of rhabdo - CPK levels now decreased #FEN - monitor lytes and replete accordingly Dispo: Can be transferred to med-surg Mother Ashley) - [phone]; Spoke with mother, she would like to be updated and would like to know how to prevent frequent hospitalizations. ATTENDING PHYSICIAN STATEMENT I saw and evaluated the patient. I reviewed the resident's note and discussed the case with the resident. I agree with the resident's findings and plan as documented. SUBJECTIVE: OBJECTIVE: ASSESSMENT AND PLAN:
[2019-11-07] MEDS ORDERED: MAGNESIUM SULF 50% (8.12 MEQ/2 ML-1 GM VIAL) IVPB ONE (08:26)
[2019-11-07] MEDS ORDERED: PT OWN MED DRAWER 7, Y5N ONE ×2 (09:05→12:34)
[2019-11-07] MEDS: PANTOPRAZOLE SODIUM 40 MG VIAL IVPUSH SCH (09:05)
[2019-11-07] MEDS: LIPASE/PROTEASE/AMYLASE 36,000 UNIT CAPSULE PO SCH ×2 (09:05→12:36)
[2019-11-07] MEDS: NIFEdipine E.R 60 MG TABLET PO SCH (09:06)
[2019-11-07] MEDS: SIMETHICONE 80 MG TAB.CHEW (FP) PO SCH ×2 (09:06→15:02)
[2019-11-07] MEDS: CARVEDILOL 12.5 MG TABLET (FP) PO SCH (09:07)
[2019-11-07] MEDS ORDERED: SODIUM CHLORIDE 1,000 ML IV SCH (11:15)
--- NOTE | 2019-11-07 11:17 | PN ---
Teaching Attending Note Name of Resident: Lebron Steward ATTENDING PHYSICIAN STATEMENT I saw and evaluated the patient. I reviewed the resident's note and discussed the case with the resident. I agree with the resident's findings and plan as documented. SUBJECTIVE: Pt seen and examined in the ICU. H/H drifting down. Getting IVC filter. OBJECTIVE: Vital Signs Period Temp Pulse Resp BP Sys/Aceves Pulse Ox Last 24 Hr 98 F-98.5 F 68-74 14-20 104-183/64-114 96-100 Intake & Output 11/04/19 11/05/19 11/06/19 11/07/19 23:59 23:59 23:59 23:59 Intake Total 1000 4340 2400 2424 Output Total 550 1220 900 Balance 450 3120 1500 2424 Weight 86.183 kg 87.997 kg 86.183 kg Gen: NAD at rest Heart: RRR Lung: decreased breath sounds at the bases Abd: soft, nontender Ext: no edema CBC, BMP 11/07/19 06:00 11/07/19 06:00 Active Medications Carvedilol (Coreg -) 12.5 mg PO BID PAVEL Last Admin: 11/07/19 09:07 Dose: 12.5 mg Documented by: Heparin Sodium (Porcine) (Heparin -) 1,000 unit IVPUSH PRN PRN PRN Reason: Heparin Heparin Sodium (Porcine) (Heparin -) 5,000 unit IVPUSH PRN PRN PRN Reason: Heparin Heparin Sodium (Porcine) 25, (000 unit/ Sodium Chloride) 500 mls @ 16 mls/hr IV TITR PAVEL; Protocol Last Titration: 11/06/19 21:30 Dose: 0 unit/hr, 0 mls/hr Documented by: Sodium Chloride (Normal Saline -) 1,000 mls @ 100 mls/hr IV ASDIR PAVEL Last Admin: 11/07/19 11:12 Dose: 100 mls/hr Documented by: Insulin Aspart (Novolog Vial Sliding Scale -) 1 vial SQ Q6H PAVEL; Protocol Last Admin: 11/07/19 09:30 Dose: Not Given Documented by: Metoclopramide HCl (Reglan Injection -) 10 mg IVPUSH Q6H-IV PAVEL Last Admin: 11/07/19 09:05 Dose: 10 mg Documented by: Nifedipine (Procardia Xl -) 60 mg PO DAILY PAVEL Last Admin: 11/07/19 09:06 Dose: 60 mg Documented by: Pancrelipase (Nena Hodge 36,000 Units Capsule) 1 cap PO TIDCM [facility] Last Admin: 11/07/19 09:05 Dose: 1 cap Documented by: Pantoprazole Sodium (Protonix Iv) 40 mg IVPUSH BID [facility] Last Admin: 11/07/19 09:05 Dose: 40 mg Documented by: Polyethylene Glycol (Miralax (For Daily Use) -) 17 gm PO BID PRN PRN Reason: CONSTIPATION Simethicone (Mylicon -) 80 mg PO QID [facility] Last Admin: 11/07/19 09:06 Dose: 80 mg Documented by: ASSESSMENT AND PLAN: r/o GI Bleed Anemia h/o Sayda Perry Tear Diabetic Gastroparesis HTN DM CKD h/o COVID19 h/o DVT - monitor H/H - transfuse as needed - protonix - glucose control - PO per GI - DVT prophylaxis - can monitor on floor
--- NOTE | 2019-11-07 12:47 | PN ---
Progress Note (short form) - Note Progress Note: Patient clinically improved, wants to eat, noted to have DVT. w/u done in [facility]. Spoke to Dr Mic Jordan. Pt to be transferred for further evaluation and management Problem List - Problems (1) Abdominal pain Code(s): R10.9 - UNSPECIFIED ABDOMINAL PAIN Qualifiers: Qualified Code(s): R10.13 - Epigastric pain
--- NOTE | 2019-11-07 13:06 | DS ---
Physical Exam: SUBJECTIVE: Patient seen and examined today in the ICU. Patient with only mild abdominal pain. Denies nausea/vomiting, constipation/diarrhea, melena, hemetochezia, fevers, SOB, chest pain. OBJECTIVE: Vital Signs Period Temp Pulse Resp BP Sys/Aceves Pulse Ox Last 24 Hr 98 F-98.5 F 68-73 14-20 104-183/64-114 96-100 PHYSICAL EXAM GENERAL: The patient is awake, alert, and fully oriented, in no acute distress. HEAD: Normal with no signs of trauma. EYES: PERRL, extraocular movements intact, sclera anicteric, conjunctiva clear. ENT: oropharynx clear without exudates, moist mucous membranes. NECK: no LAD, neck supple with full ROM LUNGS: Breath sounds equal, clear to auscultation bilaterally, no wheezes, no crackles, no accessory muscle use. HEART: Regular rate and rhythm, S1, S2 without murmur, rub or gallop. ABDOMEN: Soft, nondistended, mild tenderness to palpation of mid- abdomen/epigastric region with no rebound or guarding, no hepatosplenomegaly, no masses, normoactive bowel sounds. EXTREMITIES: 2+ pulses, warm, well-perfused, no edema. NEUROLOGICAL: Cranial nerves II through XII grossly intact. SKIN: Warm, normal turgor, no rashes or lesions noted LABS Laboratory Results - last 24 hr 11/04/19 11/06/19 11/06/19 17:00 06:00 14:43 WBC RBC Hgb Hct MCV MCH MCHC RDW Plt Count MPV PTT (Actin FS) Sodium Potassium Chloride Carbon Dioxide Anion Gap BUN Creatinine Est GFR (CKD-EPI)AfAm Est GFR (CKD-EPI)NonAf POC Glucometer 180 Random Glucose Calcium Phosphorus Magnesium Transferrin 128 L Total Bilirubin AST ALT Alkaline Phosphatase Total Protein Albumin Vitamin B12 Serum Folate COVID-19 (KERA) Not detected 11/06/19 11/06/19 11/07/19 21:20 22:49 06:00 WBC 10.6 H 9.8 RBC 2.70 L 2.59 L Hgb 8.1 L 7.7 L Hct 24.5 L 23.4 L MCV 90.8 90.4 MCH 30.0 29.7 MCHC 33.0 32.9 RDW 15.5 15.2 Plt Count 268 267 MPV 9.3 8.5 PTT (Actin FS) Sodium Potassium Chloride Carbon Dioxide Anion Gap BUN Creatinine Est GFR (CKD-EPI)AfAm Est GFR (CKD-EPI)NonAf POC Glucometer 92 Random Glucose Calcium Phosphorus Magnesium Transferrin Total Bilirubin AST ALT Alkaline Phosphatase Total Protein Albumin Vitamin B12 Serum Folate COVID-19 (KERA) 11/07/19 11/07/19 11/07/19 06:00 06:00 06:00 WBC RBC Hgb Hct MCV MCH MCHC RDW Plt Count MPV PTT (Actin FS) 28.6 Sodium 139 Potassium 3.6 Chloride 107 Carbon Dioxide 27 Anion Gap 5 L BUN 16.6 Creatinine 2.1 H Est GFR (CKD-EPI)AfAm 39.59 Est GFR (CKD-EPI)NonAf 34.16 POC Glucometer Random Glucose 99 Calcium 7.3 L Phosphorus 3.9 Magnesium 1.6 L Transferrin Total Bilirubin 0.4 AST 25 ALT 25 Alkaline Phosphatase 78 Total Protein 4.5 L Albumin 1.9 L Vitamin B12 536 Serum Folate 6 COVID-19 (KERA) 11/07/19 11/07/19 06:14 09:27 WBC RBC Hgb Hct MCV MCH MCHC RDW Plt Count MPV PTT (Actin FS) Sodium Potassium Chloride Carbon Dioxide Anion Gap BUN Creatinine Est GFR (CKD-EPI)AfAm Est GFR (CKD-EPI)NonAf POC Glucometer 97 152 Random Glucose Calcium Phosphorus Magnesium Transferrin Total Bilirubin AST ALT Alkaline Phosphatase Total Protein Albumin Vitamin B12 Serum Folate COVID-19 (KERA) HOSPITAL COURSE: 58 yo M PMHx diastolic heart failure, HTN, IDDM, CKD, upper GI bleeding, gastrop aresis, iwona lara tears, and right leg DVT who presents to the ED with severe abdominal pain and multiple episodes of coffee-ground emesis. Pt being admitted to ICU for monitoring due to acute upper GI blood loss. GI and Heme/Onc consulted. CT A/P revealed diverticulosis. GI recommended medical management and pt's symptoms improved. GI also recommended the placement of a gastric pacemaker and a balloon enteroscopy if not previously done at [facility]. Hb/Hct was monitored during his ICU stay, home dose NOAC held, did not require transfusion. He has not had any episodes of coffee-ground emesis in the ICU. Pt remained hypertensive; ACEi held, BP improved with all other home dose cardiac meds. He had elevated CPK levels upon admission - resolved with gentle hydration. Pt was found to have non-occlusive DVTs in R popliteal and posterior tibial veins on doppler US; IVC filter placed. Pt previously had endoscopy done on 10/28 at [facility] that yielded LA Grade B reflux esophagitis and erythematous mucosa in the antrum. Patient transferred to [facility] (Accepting Physician Dr. Mic Jordan) for placement of a gastric pacemaker and a balloon enteroscopy. Pt no longer needs ICU level of care, and is stable for transfer to a medicine floor setting. Follow up referrals provided for primary care physician, GI, and heme/onc. Date of Admission:11/04/19 Date of Discharge: 11/07/19 Minutes to complete discharge: 36 Discharge Summary Problems reviewed: Yes Reason For Visit: UPPER GASTROINTESTINAL HEMORRHAGE Current Active Problems VAISHNAVI (acute kidney injury) (Acute) Abdominal pain (Acute) Coffee ground emesis (Acute) Fecal impaction in rectum (Acute) Upper GI bleed (Acute) Condition: Stable - Instructions Diet, Activity, Other Instructions: You were admitted to the hospital for evaluation of abdominal pain, and bleeding. You were evaluated by the railroad car cleaning supervisor and treated conservatively with medications, Your blood counts remained stable, and you did not require blood transfusion. An ultrasound of your legs revealed blood clot within your right leg. An IVC filter was placed to prevent spread of the blood clot. You are being transferred to [facility] for higher level of care. We recommend that you stop taking your Nifedipine as it may dangerously lower your blood pressure. DO NOT take this medication before you discuss with your primary care physician. Continue taking your other home medications as directed. Follow up with your primary care physician within one - two days after disc harge. A referral has been provided. Follow up with your railroad car cleaning supervisor within one week of discharge. A referral to Dr. Manuel has been provided. Follow up with the field ironworker (Dr. Prachi Ayala) within one week of discharge. A referral has been provided. Return to the nearest emergency department if you experience worsening symptoms, subjective fevers, chills, shortness of breath, chest pain, palpitations, worsening abdominal pain, nausea, vomiting, any bleeding, trauma or loss of consciousness. Referrals: Dayday Frankel MD [Primary Care Provider] - (Gastroparesis, gastritis. Recent admission for GI bleeding) David Manuel MD [Staff Physician] - 1 Week (Gastroparesis, gastritis. Recent admission for GI bleeding) Prachi Ayala MD [Staff Physician] - 1 Week (DVT, s/p IVC filter) Disposition: TRANSFER ACUTE CARE/OTHER HOSP - Home Medications Comprehensive Discharge Medication List: Ambulatory Orders Lisinopril 20 mg PO DAILY #30 tablet 10/10/19 Metoprolol Succinate 50 mg PO DAILY #30 tab.er.24h 10/10/19 Atorvastatin Ca [Lipitor] 40 mg PO HS 10/16/19 Carvedilol 12.5 mg PO BID 10/25/19 Insulin Lispro [Humalog] 5 unit SQ TID 10/25/19 Nifedipine ER [Procardia XL -] 60 mg PO DAILY 10/25/19 Pantoprazole Sodium [Protonix] 20 mg PO DAILY 10/25/19 Mineral Oil Enema [Fleet Mineral Oil Rectal Enema -] 133 ml RC DAILY 3 Days #3 enema 11/04/19 This patient is new to me today: No Emergency Visit: Yes ED Registration Date: 11/04/19 Care time: The patient presented to the Emergency Department on the above date and was hospitalized for further evaluation of their emergent condition. Critical Care patient: Yes Total Critical Care Time (in minutes): 36 Critical Care Statement: The care of this patient involved high complexity decision making to prevent further life threatening deterioration of the patient's condition and/or to evaluate & treat vital organ system(s) failure or risk of failure. - Discharge Referral Referred to [facility] Med [facility].C.: No ATTENDING PHYSICIAN STATEMENT I saw and evaluated the patient. I reviewed the resident's note and discussed the case with the resident. I agree with the resident's findings and plan as documented. SUBJECTIVE: OBJECTIVE: ASSESSMENT AND PLAN:
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
[2019-11-07] MEDS ORDERED: LISINOPRIL 10 MG TABLET (FP) PO SCH (13:45)
[2019-11-07] MEDS ORDERED: SODIUM CHLORIDE 1,000 ML IV STA (15:34)
[2019-11-07 15:57] VITALS: BP 91/53; PULSE 60; TEMP 98.6
== END 2019-11-07 15:10 | disposition short-term general hospital (02) | DRG 253 ==
LOC: JER 14:00 → JERBED 19:01 → JICU 22:42
PROVIDERS: ADMIT Internal Medicine; ATTEND Internal Medicine
PROC: 06H03DZ Insertion of Intraluminal Device into Inferior Vena Cava, Percutaneous Approach (ICD-10-PCS; principal; 2019-11-07)
DX: K92.2 Gastrointestinal hemorrhage, unspecified (principal); K57.90 Diverticulosis of intestine, part unspecified, without perforation or abscess without bleeding; N18.2 Chronic kidney disease, stage 2 (mild); D72.829 Elevated white blood cell count, unspecified; D62 Acute posthemorrhagic anemia; F41.8 Other specified anxiety disorders; R63.4 Abnormal weight loss; Z68.24 Body mass index [BMI] 24.0-24.9, adult; K56.41 Fecal impaction; R11.2 Nausea with vomiting, unspecified; Z72.89 Other problems related to lifestyle; F12.90 Cannabis use, unspecified, uncomplicated; D63.1 Anemia in chronic kidney disease; M62.82 Rhabdomyolysis; E11.43 Type 2 diabetes mellitus with diabetic autonomic (poly)neuropathy; K92.0 Hematemesis; I82.4Z1 Acute embolism and thrombosis of unspecified deep veins of right distal lower extremity; I13.0 Hypertensive heart and chronic kidney disease with heart failure and stage 1 through stage 4 chronic kidney disease, or unspecified chronic kidney disease; I50.32 Chronic diastolic (congestive) heart failure; E87.0 Hyperosmolality and hypernatremia; K31.84 Gastroparesis; N40.0 Benign prostatic hyperplasia without lower urinary tract symptoms; D64.9 Anemia, unspecified; K29.70 Gastritis, unspecified, without bleeding; K21.9 Gastro-esophageal reflux disease without esophagitis; N18.3 Chronic kidney disease, stage 3 (moderate); E78.5 Hyperlipidemia, unspecified; R10.13 Epigastric pain
CPT/HCPCS: 36415; 37191; 71045-TC-FY; 74176-TC; 76000-TC-FY; 76705-TC; 76937-TC; 80053; 80307; 82550; 82553; 82607; 82728; 82746; 82962; 83036; 83540; 83550; 83605; 83690; 83735; 84100; 84466; 84484; 85025; 85027; 85610; 85730; 86850; 86900; 86901; 86922; 87040; 87086; 93005; 93010; 93970-TC; 99285-25; C1769; C1880; J0131; J1644; U0003

== ENCOUNTER 2019-11-16 19:08 | Inpatient (IN) | payer OTHER ==
[2019-11-16 19:25] VITALS: BMI 23.1
[2019-11-16] MEDS ORDERED: PANTOPRAZOLE SODIUM 40 MG VIAL IVPUSH ONE (19:51)
[2019-11-16] MEDS ORDERED: METOCLOPRAMIDE HCL INJECTION 10 MG/2 ML VIAL IVPUSH ONE (19:52)
[2019-11-16] MEDS ORDERED: MAG HYDROX/AL HYDROX/SIMETH 30 ML UNIT-DOSE CUP PO ONE (19:52)
[2019-11-16] MEDS ORDERED: SODIUM CHLORIDE 0.9% 500 ML INFUS.BAG IV ONE ×2 (19:52→22:09)
[2019-11-16] MEDS ORDERED: ACETAMINOPHEN 1000 MG/100 ML VIAL (NON FORMULARY) IVPB ONE (20:02)
--- NOTE | 2019-11-16 20:09 | PDOC ---
History of Present Illness - General Chief Complaint: Nausea/Vomiting Stated Complaint: SICK PERSON Time Seen by Provider: 11/16/19 19:37 Past History - Medical History Allergies/Adverse Reactions: Allergies Allergy/AdvReac Type Severity Reaction Status Date / Time No Known Allergies Allergy Verified 11/04/19 14:15 Home Medications: Ambulatory Orders Lisinopril 20 mg PO DAILY #30 tablet 10/10/19 Metoprolol Succinate 50 mg PO DAILY #30 tab.er.24h 10/10/19 Atorvastatin Ca [Lipitor] 40 mg PO HS 10/16/19 Carvedilol 12.5 mg PO BID 10/25/19 Insulin Lispro [Humalog] 5 unit SQ TID 10/25/19 Pantoprazole Sodium [Protonix] 20 mg PO DAILY 10/25/19 Mineral Oil Enema [Fleet Mineral Oil Rectal Enema -] 133 ml RC DAILY 3 Days #3 enema 11/04/19 Lipase/Protease/Amylase [Nena Hodge 36,000 Units Capsule] 1 cap PO TIDCM capsule. 11/07/19 Anemia: Yes Cardiac Disorders: Yes (prolonged QT) COPD: Yes CHF: Yes Diabetes: Yes (IDDM) GI Disorders: Yes (GIB, Gastroparesis, Sayda-Lara tear, multiple admits for N/V) Disorders: Yes (BPH) HTN: Yes - Surgical History Orthopedic Surgery: Yes (bilateral 5th toe amputation) - Immunization History Immunization Up to Date: Yes - Psycho-Social/Smoking History Smoking History: Never smoked Have you smoked in the past 12 months: No - Substance Abuse Hx (Audit-C & DAST Scrn) How often the patient has a drink containing alcohol: Never Score: In Men: 4 or > Positive; In Women: 3 or > Positive: 0 Screen Result (Pos requires Nsg. Audit-10AR): Negative *Physical Exam - Vital Signs Last Vital Signs Temp Pulse Resp BP Pulse Ox 98.8 F 88 20 155/88 98 11/16/19 19:12 11/16/19 19:12 11/16/19 19:12 11/16/19 19:12 11/16/19 19:12 ED Treatment Course - LABORATORY CBC & Chemistry Diagram: 11/16/19 21:00 11/16/19 21:00 - RADIOLOGY Radiology Studies Ordered: Category Date Time Status CHEST X-RAY PORTABLE* [RAD] Stat Radiology 11/16/19 19:50 Ordered Medical Decision Making - Medical Decision Making 11/16/19 20:04 HPI: 58yo M hx diastolic HF, IDDM, CKD, HTN, anemia of unknown cause, gastroparesis, UGIB, sayda lara tears, R leg DVT s/p IVC filter on eliquis, noncompliant with all meds, and recent admission here 11/03-11/07/19 (then transferred to [facility] for gastric pacemaker and balloon enteroscopy, pt does not know how long t here/what done) presents from home with 3 days of sudden onset no trigger constant periumbilical/epigastric stabbing pain and multiple episodes of emesis of dark bloody liquid, similar sx recurrent last was last week. No pain meds tried; requesting dilaudid. No meds taken in multiple days. Unable to keep food or liquid down. Denies alcohol use, smoking, IVDU, illicit drugs, HIV, hepatitis, recent travel, sick contacts, recent illness, fever, fatigue, headache, dizziness, numbness/tingling, weakness, vision changes, shortness of breath, cough, chest pain, palpitations, leg swelling, diarrhea, constipation, blood in stool, dysuria, hematuria, urinary retention, urinary urgency, confusion. Transferred here to [facility] 3 weeks ago where he underwent double balloon enterosc opy and a gastric emptying scan. He reports that no cause for his chronic anemia and bleeding was found. He was told that he had refractory gastroparesis and tells me that a feeding jejunostomy was proposed but not done. He had an EGD and push enteroscopy with Dr Manuel in 05/[address] Manuel did a colonoscopy on 04/26/19 which Wayne believes was a normal study. Endoscopy done on 10/28 at [facility] that yielded LA Grade B reflux esophagitis and erythematous mucosa in the antrum. Last admission here 11/03-11/07/19, GI recommended placement of gastric pacemaker and balloon enteroscopy if not previously done at [facility]. CTAP showed divericulosis. Non-occlusive DVTs in R popliteal and postrior tibial veins on doppler US; IVC filter flaced. Pt transferred to [facility] for placement of gastric PM and balloon enteroscopy. Pt unknown what did there. GI - Dr Mic Jordan at [facility] PCP - Jostin ROS: Constitutional: Positive for chills and diaphoresis. Negative for fever, chills, diaphoresis, fatigue. HENT: Negative for sore throat, rhinorrhea, congestion. Eyes: Negative for visual disturbance. Respiratory: Negative for shortness of breath, cough, and wheezing. Cardiovascular: Negative for chest pain, palpitations, and leg swelling. Gastrointestinal: Positive for abdominal pain, nausea, vomiting, blood in vomit. Negative for constipation, diarrhea, blood in stool. Genitourinary: Negative for dysuria, flank pain, and hematuria. Musculoskeletal: Negative for myalgias, back pain, and neck pain. Skin: Negative for rash. Neurological: Negative for light-headedness, dizziness, vertigo, syncope, weakness, numbness and headaches. Psychiatric/Behavioral: Negative for behavioral problems and confusion. PE: Gen: Alert, NAD, uncomfortable-appearing, vomiting minimal clear fluid/dry heaving (not coffee grounds or bright red blood) HEENT: PERRL, EOMI, dry MM, NCAT. +conjunctival pallor. Sclera are non-icteric. CV: Regular rate and regular rhythm. No murmurs, rubs, or gallops. PULM: No resp distress. CTAB, no wheezes, rales, or rhonchi. ABD: soft, ND, +epigastric and periumbilical TTP with guarding, no rebound tenderness, no CVA tenderness. BACK: No TTP of c/t/l-spine. No step-offs or deformities. MSK: No bony deformities. 2+ pulses in all extremities. NEURO: AAOx3. PERRL. No gross CN deficits. Strength and sensation grossly intact throughout. EXTREMITIES: No cyanosis. No clubbing. No edema. No calf tenderness. PSYCH: Normal mood and thought pattern. SKIN: Warm and dry. Normal capillary refill. No rashes. No jaundice. MDM: 58yo M hx diastolic HF, IDDM, CKD, HTN, anemia of unknown cause, gastroparesis, UGIB, sayda lara tears, R leg DVT s/p IVC filter on eliquis, noncompliant with all meds, and recent admission here 11/03-11/07/19 (then transferred to [facility] for gastric pacemaker and balloon enteroscopy, pt does not know how long there/what done) presents from home with 3 days of constant periumbilical/epiga stric stabbing pain and multiple episodes of emesis of dark bloody liquid, similar sx recurrent last was last week. Hemodynamically stable, afebrile, periumbilical TTP. Ddx: UGIB (sayda lara tear, peptic ulcer, varices, gastritis, esophagitis, malignancy), gastroparesis, pancreatitis, colitis, diverticulitis, cholelithiasis/cystitis, DKA, metabolic derangement, anemia, ACS/GA, UTI, PNA -EKG -CXR -CBC,CMP,Coags,Lipase,Cardiac profile,Lact,beta-hydroxybutarate,UA/UC,BGM -IVF -Protonix,Mylanta,Reglan -Pain management -CT abdomen/pelvis w/o contrast -Consult GI Dr Manuel -Dispo: likely admit pending w/u 11/16/19 20:[address] Consult [address] to GI Dr Mic Jordan at [facility]. 11/16/19 22:25 EKG reviewed: sinus rhythm with PACs, 84bpm, IA interval 162ms, QTc 456ms, LAD, TWIs in V1-V6 (intermittently present/absent in prior EKGs), no e/o acute ischemia CXR reviewed: no acute pathology Labs reviewed: notable for elevated beta-hydroxyglutarate, K 2.9, Na 150, gluc 239, Cr 2.5. -Replete K Spoke with GI protein purification scientist for [facility] - did not know pt but stated if no emergent need, tx not recommended. Recommended to call GI fellow protein purification scientist for information on prior visits. Multiple calls place for GI fellow - no call back. [facility] ED called - admitted for recurrent gastroparesis, known per gastric emptying studying, instead of gastric pacemaker medically managed with erythromycin 3mg/kg over 45min every 8 hours, no dilaudid or opiates given. Discharged to f/u with PCP. Pt still in significant pain, unable to tolerate PO, no more vomiting. Admit for dehydration and inability to tolerate PO. Discharge - Discharge Information Problems reviewed: Yes Clinical Impression/Diagnosis: VAISHNAVI (acute kidney injury), Intractable abdominal pain, Intractable vomiting, Elevated beta-hydroxybutyrate Condition: Fair - Admission Yes - Follow up/Referral - Patient Discharge Instructions - Post Discharge Activity
[2019-11-16] MEDS ORDERED: ACETAMINOPHEN INJECTION 100 ML IVPB ONE (20:47)
[2019-11-16] MEDS ORDERED: MAG HYDROX/AL HYDROX/SIMETH 30 ML UNIT-DOSE CUP ONE (20:55)
[2019-11-16] MEDS ORDERED: PANTOPRAZOLE SODIUM 40 MG VIAL ONE (20:55)
[2019-11-16] MEDS ORDERED: METOCLOPRAMIDE HCL INJECTION 10 MG/2 ML VIAL ONE (20:55)
--- NOTE | 2019-11-16 21:17 | PDOC ---
Documentation entered by Yolis Ware SCRIBE, acting as scribe for Chrystal Saenz MD. Chrystal Saenz MD: This documentation has been prepared by the sonjaibeChaz Sydney, SCRIBE, under my direction and personally reviewed by me in its entirety. I confirm that the documentation accurately reflects all work, treatment, procedures, and medical decision making performed by me. Attending Attestation - Resident Resident Name: JeanninechocoGayla - ED Attending Attestation I have performed the following: I have examined & evaluated the patient, The case was reviewed & discussed with the resident, I agree w/resident's findings & plan, Exceptions are as noted - HPI HPI: 11/16/19 20:32 Pt comes with nausea and vomiting x 3 days. States that he has been unable to eat and he ran out of his meds a few days ago. Pt is a diabetic. He has gastric issues. He was seen at [facility] recently. See resident's notes for details. - Physicial Exam PE: 11/16/19 21:06 GENERAL: weakl appearing, mild distress; dehydrated and thin; not well-nourished. HEENT: Normocephalic, atraumatic. PERRL, EOM intact. CARDIOVASCULAR: Normal S1, S2. Regular rate and rhythm. PULMONARY: Clear to auscultation bilaterally. ABDOMEN: +tender throughout Soft, non-distended. EXTREMITIES: Normal ROM in all four extremities. No gross deformities. SKIN: Warm, dry. No rash NEUROLOGICAL: No focal neurological deficits. 11/16/19 22:20 Pt is afebrile; no rashes - Medical Decision Making 11/16/19 21:36 Normal CXR 11/16/19 21:37 CBC normal EKG flipped lateral T waves 11/16/19 21:40 Pt likely has diabetic gastroparesis. In previous notes pt is suggested to have cannabis induced vomiting; however consuistently NEGATIVE FOR CANNABIS since May 2019 labs in our system. 11/16/19 22:09 pt is dehydrated; he will be given a 2nd L of NSS. He will be admitted to [facility], as he has borderline trop; elevated cpk and EKG changes that are new; flipped lateral t waves Heart Score/ECG Review - ECG Intrepretation Rhythm: Regular Rhythm - Bolton Bolton: Normal - P and [place] Delta Wave(s) Present: No WPW: No - QRS Poor R Wave Progression: No Q Wave Present: No - ST and T Early Repolarization: No Non Specific ST-T Wave changes: Yes Flattened T Waves: No Prolonged Q-T Interval: No - ECG Impressions Normal ECG: No Non-specific ST Elevation: No Ischemic Changes: Yes (lateral flipped T waves; different from previous) Bradycardia: No Torsades justin Pointes: No WPW: No Discharge - Discharge Information Problems reviewed: Yes Clinical Impression/Diagnosis: VAISHNAVI (acute kidney injury), Intractable abdominal pain, Intractable vomiting, Elevated beta-hydroxybutyrate Condition: Fair - Follow up/Referral - Patient Discharge Instructions - Post Discharge Activity
[2019-11-16 21:22] LABS: BASO % 0.3 % (0-2.0); LYMPH % 14.2 % (8-40); MCH 30.5 pg (25.7-33.7); MCHC 33.2 g/dl (32.0-35.9); MEAN CELL VOLUME 91.9 fl (80-96); MONO % 8.7 % (3.8-10.2); NEUT % 76.8 % (42.8-82.8); PLATELET COUNT 300 K/MM3 (134-434); RBC 3.59 M/mm3 (4.00-5.60); RDW 14.9 % (11.9-15.9); WHITE BLOOD COUNT 9.7 K/mm3 (4.0-10.0)
[2019-11-16 21:57] LABS: ALBUMIN 2.4 g/dl (3.4-5.0); BILIRUBIN,TOTAL 0.3 mg/dL (0.2-1); BLOOD UREA NITROGEN 30.7 mg/dL (7-18); CALCIUM 8.8 mg/dL (8.5-10.1); CREATININE 2.5 mg/dL (0.55-1.3); PHOSPHOROUS 3.8 mg/dL (2.5-4.9); TOT PROT 5.7 g/dl (6.4-8.2)
[2019-11-16 22:13] LABS: POTASSIUM 2.9 mmol/L (3.5-5.1)
[2019-11-16] MEDS ORDERED: KCL 10 MEQ IVPB 10 MEQ/100 ML INFUS.BAG IVPB ONE ×2 (22:19→23:17)
[2019-11-16] MEDS: KCL 10 MEQ IVPB 10 MEQ/100 ML INFUS.BAG IVPB SCH (22:31)
--- NOTE | 2019-11-16 23:26 | PN ---
Teaching Attending Note Name of Resident: Jamie Montero ATTENDING PHYSICIAN STATEMENT I saw and evaluated the patient. I reviewed the resident's note and discussed the case with the resident. I agree with the resident's findings and plan as documented. SUBJECTIVE: Patient is a 58 year old man with a PMH of HFpEF, IDDM, CKD, HTN, Anemia, Gastr oparesis, UGIB, Sayda lara tears, Right leg DVT (s/p IVC filter), Nonadherence with medications and recent admission here 11/03-11/07/19 (then transferred to [facility] for gastric pacemaker and balloon enteroscopy, pt does not know what was done) presents from home with 3 days of sudden onset no trigger constant periumbilical/epigastric stabbing pain and multiple episodes of emesis of dark bloody liquid Unable to keep food or liquid down. Denies alcohol use, smoking, IVDU, illicit drugs, HIV, hepatitis, recent travel, sick contacts, recent illness, fever, fatigue, headache, dizziness, numbness/tingling, weakness, vision changes, shortness of breath, cough, chest pain, palpitations, leg swelling, diarrhea, constipation, blood in stool, dysuria, hematuria, urinary retention, urinary urgency or confusion. Last admission here 11/03-11/07/19, GI recommended placement of gastric pacemaker and balloon enteroscopy if not previously done at [facility]. Denies alcohol, tobacco or illicit drug use. Family history is unremarkable. Tested negative for COVID-19 thrice in past 6 weeks. OBJECTIVE: Alert Vital Signs Period Temp Pulse Resp BP Sys/Aceves Pulse Ox Last 24 Hr 98.8 F 84-88 18-20 155-197/88-105 98-100 HEENT: No Jaundice, eye redness or discharge, PERRLA, EOMI. Normocephalic, atraumatic. External ears are normal and hearing is grossly intact. No nasal discharge. Neck: Supple, nontender. No palpable adenopathy or thyromegaly. No JVD Chest: Good effort. Clear to auscultation and percussion. Heart: Regular. No S3, rub or murmur Abdomen: Not distended, soft, diffuse tenderness and no HSM. No rebound or guarding. Normal bowel sounds. Ext: Peripheral pulses intact. No leg edema. Skin: Warm and dry. No petechiae, rash or ecchymosis. Neuro: Alert. Oriented x3. CN 2-12 grossly intact. Sensation grossly intact in all four extremities and DTR are symmetric. Psych: Appropriate mood and affect. Good insight. Home Medications Medication Instructions Recorded Lisinopril 20 mg PO DAILY #30 tablet 10/10/19 Metoprolol Succinate 50 mg PO DAILY #30 tab.er.24h 10/10/19 Atorvastatin Ca [Lipitor] 40 mg PO HS 10/16/19 Carvedilol 12.5 mg PO BID 10/25/19 Insulin Lispro [Humalog] 5 unit SQ TID 10/25/19 Pantoprazole Sodium [Protonix] 20 mg PO DAILY 10/25/19 Mineral Oil Enema [Fleet Mineral 133 ml RC DAILY 3 Days #3 enema 11/04/19 Oil Rectal Enema -] Lipase/Protease/Amylase [Nena Hodge 1 cap PO TIDCM capsule. 11/07/19 36,000 Units Capsule] Abnormal Lab Results 11/16/19 11/16/19 11/16/19 21:00 21:00 21:00 RBC 3.59 L Hgb 11.0 L Hct 33.0 L D VBG pH POC VBG pO2 VBG HCO3 VBG O2 Sat (Aldo) VBG Base Excess Sodium 150 H Potassium 2.9 L* Carbon Dioxide 38 H BUN 30.7 H Creatinine 2.5 H Random Glucose 239 H Creatine Kinase 759 H Total Protein 5.7 L Albumin 2.4 L Lipase 45 L Beta-Hydroxybutyrate 4.6 H 11/16/19 23:10 RBC Hgb Hct VBG pH 7.553 H POC VBG pO2 61.5 H VBG HCO3 35.4 H VBG O2 Sat (Aldo) 94.2 H VBG Base Excess 12.0 H Sodium Potassium Carbon Dioxide BUN Creatinine Random Glucose Creatine Kinase Total Protein Albumin Lipase Beta-Hydroxybutyrate Current Medications Generic Name Dose Route Start Last Admin Trade Name Freq PRN Reason Stop Dose Admin Acetaminophen 650 mg 11/17/19 01:57 Tylenol - PO Q4H PRN PAIN LEVEL 4 - 6 Docusate Sodium 100 mg 11/17/19 02:09 Colace - PO Q8H PRN CONSTIPATION Hydromorphone HCl 2 mg 11/17/19 02:09 Dilaudid Injection - IVPB Q8H PRN PAIN LEVEL 7 - 10 Sodium Chloride 1,000 mls @ 75 mls/hr 11/17/19 02:00 1/2 Normal Saline IV ASDIR PAVEL Potassium Chloride 10 meq in 100 mls @ 100 mls/hr 11/17/19 02:15 Potassium Chloride 10 Meq Premix Ivpb - IVPB 11/17/19 05:14 Q60M PAVEL Insulin Aspart 1 vial 11/17/19 07:00 Novolog Vial Sliding Scale - SQ ACHS [facility] Protocol Metoclopramide HCl 10 mg 11/17/19 01:57 Reglan Injection - IVPUSH Q6H PRN NAUSEA AND/OR VOMITING Ondansetron HCl 8 mg 11/17/19 02:08 Zofran Injection IVPB 11/17/19 02:09 ONCE ONE Pantoprazole Sodium 40 mg 11/17/19 07:00 Protonix - PO ACBK [facility] ASSESSMENT AND PLAN: 1. Severe gastroparesis - Patient has had seven CT scans of abdomen/pelvis since May this year and four in the past six weeks with most recent on 11/04/2019 not showing any acute pathology to explain symptoms. Hypokalemia likely due to vomiting and hyperglycemia. Will check serum magnesium, give IV KCL and correct hyperglycemia. Hypernatremia due to dehydration. Got ?2 liters of IV NS in the ER. Will repeat BMP start and switch to 0.45% NaCL IV and monitor serum sodium q 4 hours to avoid a rapid drop. EKG shows NSR at 84/minute, PACs and QTc 456, LAD with T wave inversion in V1-V6, with no significant ST changes - similar to some of his prior EKGs. Viral testing for COVID-19 ordered and patient placed on airborne, droplet and contact isolation. ER staff prescribed Tylenol, KCL, Mylanta, Reglan, Protonix and IV NS for the patient. Will continue IV Protonix, Reglan, Dilaudid PRN and Compazine and consult GI. Contact her GI specialist at [facility] during the day to get the records of her most recent hospital stay. Will continue comprehensive care for all of patients comorbid conditions. 2. Uncontrolled DM For now, we will hold the home diabetes drugs and implement sliding scale insulin regimen. Provide comprehensive diabetes care with patient teaching and counseling about the importance of adherence to prescribed diabetes regimen, euglycemia, eye care and foot care. 3. CKD with VAISHNAVI Likely has diabetic nephropathy. Rhabdomyolysis and dehydration may explain VAISHNAVI. Will get kidney sonogram, hydrate, monitor urine output and consult Nephrology. Avoid nephrotoxic agents such as NSAIDS, aminoglycosides, contrast dyes and certain Alternative medicine products. 4. Anemia - Likely partly due to CKD and DM. Recent "normal" iron studies. Will do serial stool guaiacs. 5. Hypertension Will restart suitable outpatient antihypertensive drugs when clinically appropriate. Subsequently, will revise regimen to ensure [id number] excellent BP control. Patient counseled on the injurious effects of uncontrolled hypertension. Nonpharmacologic measures to control hypertension like weight loss, salt restriction and exercise stressed. Importance of adherence to treatment regimen and attainment of normotension emphasized. 6. DVT prophylaxis - SCD 7. Advance directives - Full code
[2019-11-16 23:42] LABS: VENOUS O2 SATURATION 94.2 % (70-80); VENOUS PCO2 41.1 mmHg (38-52); VENOUS PH 7.553 (7.310-7.410)
[2019-11-17] MEDS: KCL 10 MEQ IVPB 10 MEQ/100 ML INFUS.BAG IVPB SCH ×5 (00:15→07:56)
[2019-11-17] MEDS ORDERED: KCL 10 MEQ IVPB 10 MEQ/100 ML INFUS.BAG IVPB ONE (01:42)
[2019-11-17] MEDS ORDERED: ACETAMINOPHEN 325 MG TABLET (FP) PO PRN (01:57)
[2019-11-17] MEDS ORDERED: METOCLOPRAMIDE HCL INJECTION 10 MG/2 ML VIAL IVPUSH PRN (01:57)
[2019-11-17] MEDS ORDERED: SODIUM CHLORIDE 0.45% 1,000 ML IV SCH ×2 (02:00→10:45)
[2019-11-17] MEDS ORDERED: ONDANSETRON 4 MG/2 ML VIAL IVPB ONE (02:08)
[2019-11-17] MEDS ORDERED: DOCUSATE SODIUM 100 MG CAPSULE (FP) PO PRN (02:09)
[2019-11-17] MEDS ORDERED: HYDROmorphone HCl 2 MG/ML VIAL IVPB PRN (02:09)
[2019-11-17] MEDS ORDERED: POTASSIUM CHLORIDE TABS 20 MEQ TABLET.ER (FP) PO ONE ×2 (03:54→08:21)
[2019-11-17 05:02] LABS: BLOOD UREA NITROGEN 28.3 mg/dL (7-18); CALCIUM 7.6 mg/dL (8.5-10.1); CREATININE 2.4 mg/dL (0.55-1.3)
[2019-11-17 05:45] LABS: POTASSIUM 2.8 mmol/L (3.5-5.1)
[2019-11-17] MEDS: INSULIN SLIDING SCALE (NOVOLOG) 1 VIAL SQ SCH ×5 (06:23→21:47)
[2019-11-17] MEDS ORDERED: PANTOPRAZOLE 40 MG TABLET PO SCH (07:00)
[2019-11-17 07:39] LABS: HEMATOCRIT 23.3 % (35.4-49); HEMOGLOBIN 7.9 GM/dL (11.7-16.9); MCH 30.6 pg (25.7-33.7); MCHC 33.8 g/dl (32.0-35.9); MEAN CELL VOLUME 90.5 fl (80-96); MEAN PLT VOLUME 8.6 fl (7.5-11.1); PLATELET COUNT 206 K/MM3 (134-434); RBC 2.57 M/mm3 (4.00-5.60); RDW 14.5 % (11.9-15.9); WHITE BLOOD COUNT 9.3 K/mm3 (4.0-10.0)
--- NOTE | 2019-11-17 07:50 | HP ---
CHIEF COMPLAINT: Nausea/Vomiting PCP: GI - Dr Mic Jordan at [facility] PCP - Jostin HISTORY OF PRESENT ILLNESS: 58 yo M pmh D-CHF, IDDM, CKD, HTN, chronic anemia, gastroparesis, UGIB, iwona lara tears, R leg DVT s/p IVC filter on eliquis???, noncompliant with all meds, and recent admission here 11/03-11/07/19 (then transferred to [facility] for gastric pacemaker and balloon enteroscopy, pt does not know how long there/what done) presents due to 3 days of sudden onset constant epigastric stabbing pain and episodes of coffee ground emesis, w/ similar sx recurrent last was last week. Unable to keep food or liquid down. Pt was recent admitted and Transferred to [facility] where he was suppose to undergo double balloon enteroscopy and a gastric emptying scan. He reports that no cause for his chronic anemia and bleeding was found. He was told that he had refractory gastroparesis and feeding jejunostomy was proposed but not done. He had an EGD and push enteroscopy with Dr Mnauel in 05/[address] Manuel did a colonoscopy on 04/26/19 which Wayne believes was a normal study. Endoscopy done on 10/28 at [facility] that yielded LA Grade B reflux esophagitis and erythematous mucosa in the antrum. In the past GI recommended placement of gastric pacemaker and balloon enteroscopy if not previously done at [facility]. As per [facility] ED that called back, pt was admitted for recurrent gastroparesis, known per gastric emptying studying, instead of gastric pacemaker medically managed with erythromycin 3mg/kg over 45min every 8 hours, no dilaudid or opiates given. Discharged to f/u with PCP. However, the reality of what transcribed at [facility] is uncertain at this time. Pt denies f/c/sob/chest pain/numbness tingling. ER course was notable for: (1)EKG reviewed: sinus rhythm with PACs, 84bpm, [place] interval 162ms, QTc 456ms, LAD, TWIs in V1-V6 (intermittently present/absent in prior EKGs), no e/o acute ischemia (2)CXR reviewed: no acute pathology (3)notable for elevated beta-hydroxyglutarate, K 2.9, Na 150, gluc 239, Cr 2.5. Recent Travel: denies PAST MEDICAL HISTORY: as above PAST SURGICAL HISTORY: as above Social History: Smoking:denies Alcohol:denies Drugs: denies Allergies No Known Allergies Allergy (Verified 11/04/19 14:15) HOME MEDICATIONS: Home Medications Medication Instructions Recorded Lisinopril 20 mg PO DAILY #30 tablet 10/10/19 Metoprolol Succinate 50 mg PO DAILY #30 tab.er.24h 10/10/19 Atorvastatin Ca [Lipitor] 40 mg PO HS 10/16/19 Carvedilol 12.5 mg PO BID 10/25/19 Insulin Lispro [Humalog] 5 unit SQ TID 10/25/19 Pantoprazole Sodium [Protonix] 20 mg PO DAILY 10/25/19 Mineral Oil Enema [Fleet Mineral 133 ml RC DAILY 3 Days #3 enema 11/04/19 Oil Rectal Enema -] Lipase/Protease/Amylase [Nena Hodge 1 cap PO TIDCM capsule. 11/07/19 36,000 Units Capsule] REVIEW OF SYSTEMS Denies alcohol use, smoking, IVDU, illicit drugs, HIV, hepatitis, recent travel, sick contacts, recent illness, fever, fatigue, headache, dizziness, numbness/tingling, weakness, vision changes, shortness of breath, cough, chest pain, palpitations, leg swelling, diarrhea, constipation, blood in stool, dysuria, hematuria, urinary retention, urinary urgency, confusion. PHYSICAL EXAMINATION Vital Signs - 24 hr 11/16/19 11/16/19 11/17/19 19:12 23:00 03:26 Temperature 98.8 F 98.2 F Pulse Rate 88 77 Pulse Rate [ 84 Left Radial] Respiratory 20 18 12 Rate Blood Pressure 155/88 180/92 H Blood Pressure 197/105 H [Left Arm] O2 Sat by Pulse 98 100 97 Oximetry (%) 11/17/19 06:36 Temperature Pulse Rate 76 Pulse Rate [ Left Radial] Respiratory 18 Rate Blood Pressure 148/92 Blood Pressure [Left Arm] O2 Sat by Pulse Oximetry (%) GENERAL: Awake, alert, and fully oriented, in no acute distress. Disheveled, anxious, uncomfortable EYES: Pupils equal, round and reactive to light, extraocular movements intact, No lid lag. EARS, NOSE, THROAT: Dry mucous membranes. LUNGS: Breath sounds equal, clear to auscultation bilaterally. No wheezes, and no crackles. HEART: Regular rate and rhythm, normal S1 and S2 without murmur, rub or gallop. ABDOMEN: Tender abdomen, no distention, BS+, no guarding or rebound tenderness. LOWER EXTREMITIES: 2+ pulses, warm, well-perfused. No calf tenderness. No peripheral edema. SKIN: Warm, dry, normal turgor, no rashes or lesions noted, normal capillary refill. Laboratory Results - last 24 hr 11/16/19 11/16/19 11/16/19 20:45 21:00 21:00 WBC 9.7 RBC 3.59 L Hgb 11.0 L Hct 33.0 L D MCV 91.9 MCH 30.5 MCHC 33.2 RDW 14.9 Plt Count 300 MPV 9.0 Absolute Neuts (auto) 7.4 Neutrophils % 76.8 Lymphocytes % 14.2 D Monocytes % 8.7 Eosinophils % 0.0 Basophils % 0.3 Nucleated RBC % 0 PTT (Actin FS) VBG pH POC VBG pCO2 POC VBG pO2 VBG HCO3 VBG O2 Sat (Aldo) VBG Base Excess Sodium 150 H Potassium 2.9 L* Chloride 102 Carbon Dioxide 38 H Anion Gap 10 BUN 30.7 H Creatinine 2.5 H Est GFR (CKD-EPI)AfAm 32.06 Est GFR (CKD-EPI)NonAf 27.67 Random Glucose 239 H Lactic Acid Calcium 8.8 Phosphorus 3.8 Magnesium 2.0 Total Bilirubin 0.3 AST 32 ALT 20 Alkaline Phosphatase 101 Creatine Kinase Creatine Kinase Index CK-MB (CK-2) Troponin I Total Protein 5.7 L Albumin 2.4 L Lipase Beta-Hydroxybutyrate 4.6 H Blood Type O POSITIVE Antibody Screen Negative 11/16/19 11/16/19 11/16/19 21:00 21:00 21:00 WBC RBC Hgb Hct MCV MCH MCHC RDW Plt Count MPV Absolute Neuts (auto) Neutrophils % Lymphocytes % Monocytes % Eosinophils % Basophils % Nucleated RBC % PTT (Actin FS) 28.8 VBG pH POC VBG pCO2 POC VBG pO2 VBG HCO3 VBG O2 Sat (Aldo) VBG Base Excess Sodium Potassium Chloride Carbon Dioxide Anion Gap BUN Creatinine Est GFR (CKD-EPI)AfAm Est GFR (CKD-EPI)NonAf Random Glucose Lactic Acid 1.5 Calcium Phosphorus Magnesium Total Bilirubin AST ALT Alkaline Phosphatase Creatine Kinase 759 H Creatine Kinase Index 0.3 CK-MB (CK-2) 2.3 Troponin I 0.05 Total Protein Albumin Lipase 45 L Beta-Hydroxybutyrate Blood Type Antibody Screen 11/16/19 11/17/19 23:10 04:00 WBC RBC Hgb Hct MCV MCH MCHC RDW Plt Count MPV Absolute Neuts (auto) Neutrophils % Lymphocytes % Monocytes % Eosinophils % Basophils % Nucleated RBC % PTT (Actin FS) VBG pH 7.553 H POC VBG pCO2 41.1 POC VBG pO2 61.5 H VBG HCO3 35.4 H VBG O2 Sat (Aldo) 94.2 H VBG Base Excess 12.0 H Sodium 147 H Potassium 2.8 L* Chloride 105 Carbon Dioxide 37 H Anion Gap 5 L BUN 28.3 H Creatinine 2.4 H Est GFR (CKD-EPI)AfAm 33.69 Est GFR (CKD-EPI)NonAf 29.07 Random Glucose 173 H Lactic Acid Calcium 7.6 L Phosphorus Magnesium Total Bilirubin AST ALT Alkaline Phosphatase Creatine Kinase Creatine Kinase Index CK-MB (CK-2) Troponin I Total Protein Albumin Lipase Beta-Hydroxybutyrate Blood Type Antibody Screen ASSESSMENT/PLAN: 58 yo M pmh D-CHF, IDDM, CKD, HTN, chronic anemia, gastroparesis, UGIB, iwona lara tears, R leg DVT s/p IVC filter on eliquis???, noncompliant with all meds, and recent admission w/ transfer to [facility] for gastric pacemaker and balloon enteroscopy, presents due to 3 days of sudden onset constant epigastric stabbing pain and episodes of coffee ground emesis is admitted for severe gastroparesis + UGIB #Severe gastroparesis + UGIB negative CT scans of abdomen/pelvis since May this year hx of these symptoms including coffee ground emesis multiple EGDs done w/ no acute findings UGIB/coffee ground is likely similar to previous symptoms so will consult GI to f/u Recom Will need to investigate further what happened in [facility]- Contact Dr. Jana Jordan at [facility] for more information obtain records IV Protonix, Reglan, Dilaudid PRN, Zofran and Compazine cont colace consult GI. COVID-19 ordered and patient placed on airborne droplet and contact isolation. #Hypokalemia likely 2/2 vomiting and hyperglycemia. Will check serum magnesium give IV KCL and correct hyperglycemia #Hypernatremia likely 2/2 to dehydration 2 liters of IV NS in the ER. Will repeat BMP switch to 0.45% NaCL IV monitor serum sodium q 4 hours to avoid a rapid drop EKG shows NSR at 84/minute, PACs and QTc 456, LAD with T wave inversion in V1- V6, with no significant ST changes - similar to prior EKGs. #DM ISS BGM #VAISHNAVI w/ CKD Likely 2/2 diabetic nephropathy vs Rhabdo and dehydration Consider Renal US monitor urine output consider consulting Nephrology Avoid nephrotoxic agents such as NSAIDS, aminoglycosides, contrast dyes #Anemia Likely multifactorial- CKD and DM FOBT #DVT ppx scds FEN monitor lytes IVF .45% NS sodium controlled diet Dispo: monitor overnight, control pain with dilaudid and toradol, f/u verónica [place] and Dr. Jana Jordan Visit type - Emergency Visit Emergency Visit: Yes ED Registration Date: 11/16/19 Care time: The patient presented to the Emergency Department on the above date and was hospitalized for further evaluation of their emergent condition. - New Patient This patient is new to me today: Yes Date on this admission: 11/29/19 - Critical Care Critical Care patient: No ATTENDING PHYSICIAN STATEMENT I saw and evaluated the patient. I reviewed the resident's note and discussed the case with the resident. I agree with the resident's findings and plan as documented. SUBJECTIVE: OBJECTIVE: ASSESSMENT AND PLAN:
[2019-11-17] MEDS ORDERED: SODIUM CHLORIDE 1,000 ML IV SCH (08:45)
[2019-11-17] MEDS ORDERED: MAGNESIUM SULF 50% (8.12 MEQ/2 ML-1 GM VIAL) IVPB ONE ×2 (08:58→09:15)
--- NOTE | 2019-11-17 09:14 | PN ---
Progress Note (short form) - Note Progress Note: GI CONSULT DICTATED ERYTHROMYCIN TID PPI 40 MG IV BID AVOID NSAID NPO MIDNIGHT FOR TENTATIVE EGD [facility]OR[facility] SEE FULL CONSULT DICTATED
[2019-11-17] MEDS ORDERED: MAGNESIUM 1GM/D5W 100ML - 100 ML IVPB IVPB ONE (09:15)
[2019-11-17] MEDS: PANTOPRAZOLE SODIUM 40 MG VIAL IVPUSH SCH ×2 (09:51→21:39)
[2019-11-17 09:54] LABS: MAGNESIUM 1.9 mg/dL (1.8-2.4)
[2019-11-17 12:15] LABS: BLOOD UREA NITROGEN 26.3 mg/dL (7-18); CALCIUM 7.6 mg/dL (8.5-10.1); CREATININE 2.2 mg/dL (0.55-1.3); MAGNESIUM 1.9 mg/dL (1.8-2.4); PHOSPHOROUS 3.6 mg/dL (2.5-4.9)
[2019-11-17] MEDS: SODIUM CHLORIDE 0.45%/POT 20 MEQ/1,000 ML INFUS.BAG IV SCH (14:41)
--- NOTE | 2019-11-17 15:20 | PN ---
Physical Exam: SUBJECTIVE: Patient seen and examined bedside. Not very cooperative. Not able to tell me much about his recent medical history. OBJECTIVE: Vital Signs Period Temp Pulse Resp BP Sys/Aceves Pulse Ox Last 24 Hr 98 F-98.8 F 63-88 12-20 143-197/75-105 97-100 GENERAL: The patient is awake, alert, and fully oriented, in no acute distress. EYES: patient won't look at me long enough to fully examine LUNGS: CTA BL HEART: Regular rate and rhythm ABDOMEN: Soft, nontender, nondistended, normoactive bowel sounds EXTREMITIES: warm, well-perfused, no edema. PSYCH: sleepy, non cooperative, seems either confused/possibly doesn't remember, it's not clear SKIN: Warm, dry Laboratory Results - last 24 hr 11/16/19 11/16/19 11/16/19 20:45 21:00 21:00 WBC 9.7 RBC 3.59 L Hgb 11.0 L Hct 33.0 L D MCV 91.9 MCH 30.5 MCHC 33.2 RDW 14.9 Plt Count 300 MPV 9.0 Absolute Neuts (auto) 7.4 Neutrophils % 76.8 Lymphocytes % 14.2 D Monocytes % 8.7 Eosinophils % 0.0 Basophils % 0.3 Nucleated RBC % 0 PTT (Actin FS) VBG pH POC VBG pCO2 POC VBG pO2 VBG HCO3 VBG O2 Sat (Aldo) VBG Base Excess Sodium 150 H Potassium 2.9 L* Chloride 102 Carbon Dioxide 38 H Anion Gap 10 BUN 30.7 H Creatinine 2.5 H Est GFR (CKD-EPI)AfAm 32.06 Est GFR (CKD-EPI)NonAf 27.67 POC Glucometer Random Glucose 239 H Lactic Acid Calcium 8.8 Phosphorus 3.8 Magnesium 2.0 Total Bilirubin 0.3 AST 32 ALT 20 Alkaline Phosphatase 101 Creatine Kinase Creatine Kinase Index CK-MB (CK-2) Troponin I Total Protein 5.7 L Albumin 2.4 L Lipase Beta-Hydroxybutyrate 4.6 H Blood Type O POSITIVE Antibody Screen Negative 11/16/19 11/16/19 11/16/19 21:00 21:00 21:00 WBC RBC Hgb Hct MCV MCH MCHC RDW Plt Count MPV Absolute Neuts (auto) Neutrophils % Lymphocytes % Monocytes % Eosinophils % Basophils % Nucleated RBC % PTT (Actin FS) 28.8 VBG pH POC VBG pCO2 POC VBG pO2 VBG HCO3 VBG O2 Sat (Aldo) VBG Base Excess Sodium Potassium Chloride Carbon Dioxide Anion Gap BUN Creatinine Est GFR (CKD-EPI)AfAm Est GFR (CKD-EPI)NonAf POC Glucometer Random Glucose Lactic Acid 1.5 Calcium Phosphorus Magnesium Total Bilirubin AST ALT Alkaline Phosphatase Creatine Kinase 759 H Creatine Kinase Index 0.3 CK-MB (CK-2) 2.3 Troponin I 0.05 Total Protein Albumin Lipase 45 L Beta-Hydroxybutyrate Blood Type Antibody Screen 11/16/19 11/17/19 11/17/19 23:10 04:00 06:25 WBC 9.3 RBC 2.57 L Hgb 7.9 L Hct 23.3 L D MCV 90.5 MCH 30.6 MCHC 33.8 RDW 14.5 Plt Count 206 D MPV 8.6 Absolute Neuts (auto) Neutrophils % Lymphocytes % Monocytes % Eosinophils % Basophils % Nucleated RBC % PTT (Actin FS) VBG pH 7.553 H POC VBG pCO2 41.1 POC VBG pO2 61.5 H VBG HCO3 35.4 H VBG O2 Sat (Aldo) 94.2 H VBG Base Excess 12.0 H Sodium 147 H Potassium 2.8 L* Chloride 105 Carbon Dioxide 37 H Anion Gap 5 L BUN 28.3 H Creatinine 2.4 H Est GFR (CKD-EPI)AfAm 33.69 Est GFR (CKD-EPI)NonAf 29.07 POC Glucometer Random Glucose 173 H Lactic Acid Calcium 7.6 L Phosphorus 4.0 Magnesium 1.9 Total Bilirubin AST ALT Alkaline Phosphatase Creatine Kinase Creatine Kinase Index CK-MB (CK-2) Troponin I Total Protein Albumin Lipase Beta-Hydroxybutyrate Blood Type Antibody Screen 11/17/19 11/17/19 11/17/19 06:25 11:00 11:09 WBC RBC Hgb Hct MCV MCH MCHC RDW Plt Count MPV Absolute Neuts (auto) Neutrophils % Lymphocytes % Monocytes % Eosinophils % Basophils % Nucleated RBC % PTT (Actin FS) VBG pH POC VBG pCO2 POC VBG pO2 VBG HCO3 VBG O2 Sat (Aldo) VBG Base Excess Sodium Cancelled 148 H Potassium Cancelled 3.0 L Chloride Cancelled 107 Carbon Dioxide Cancelled 33 H Anion Gap Cancelled 8 BUN Cancelled 26.3 H Creatinine Cancelled 2.2 H Est GFR (CKD-EPI)AfAm Cancelled 37.42 Est GFR (CKD-EPI)NonAf Cancelled 32.29 POC Glucometer 122 Random Glucose Cancelled 123 H Lactic Acid Calcium Cancelled 7.6 L Phosphorus Cancelled 3.6 Magnesium Cancelled 1.9 Total Bilirubin Cancelled AST Cancelled ALT Cancelled Alkaline Phosphatase Cancelled Creatine Kinase Creatine Kinase Index CK-MB (CK-2) Troponin I Total Protein Cancelled Albumin Cancelled Lipase Beta-Hydroxybutyrate Blood Type Antibody Screen Active Medications Generic Name Dose Route Start Last Admin Trade Name Freq PRN Reason Stop Dose Admin Acetaminophen 650 mg 11/17/19 01:57 Tylenol - PO Q4H PRN PAIN LEVEL 4 - 6 Docusate Sodium 100 mg 11/17/19 02:09 Colace - PO Q8H PRN CONSTIPATION Potassium Chloride/Sodium Chloride 20 meq in 1,000 mls @ 75 mls/hr 11/17/19 14:30 11/17/19 14:41 1/2ns+20meq Kcl IV 75 mls/hr ASDIR PAVEL Administration Insulin Aspart 1 vial 11/17/19 07:00 11/17/19 11:11 Novolog Vial Sliding Scale - SQ Not Given ACHS PAVEL Protocol Metoclopramide HCl 10 mg 11/17/19 01:57 11/17/19 06:23 Reglan Injection - IVPUSH 10 mg Q6H PRN Administration NAUSEA AND/OR VOMITING Pantoprazole Sodium 40 mg 11/17/19 10:00 11/17/19 09:51 Protonix Iv IVPUSH 40 mg BID PAVEL Administration ASSESSMENT/PLAN: 58 yo M PMH of Diastolic CHF, IDDM, CKD, HTN, chronic anemia, gastroparesis, UGIB, iwona lara tears, R leg DVT s/p IVC filter on eliquis, noncompliant with all meds, and recent admission w/ transfer to [facility] for gastric pacemaker and balloon enteroscopy, presents due to 3 days of sudden onset constant epigastric stabbing pain and episodes of coffee ground emesis. He is admitted for severe gastroparesis + UGIB Severe gastroparesis + UGIB - hx of these symptoms including coffee ground emesis/ Current presentation similar to previous - multiple EGDs done w/no acute findings - Will need to investigate further what happened in [facility] - Contact Dr. Jana Jordan on Monday - Records request consent faxed to [facility] today - IV Protonix BID - GI Consulted (Dr. Hernandez) Hypokalemia & Hypernatremia - likely 2/2 vomiting and hyperglycemia & dehydration - continue IVF 1/2 NS w 20 meq K - Repeat BMP in AM Anemia - Likely multifactorial- CKD and DM - FOBT - continue to monitor for drops in hb below 7 DM - sliding scale w/ BGM VAISHNAVI w/ CKD - Likely 2/2 diabetic nephropathy v Rhabdo & dehydration - Avoid nephrotoxic agents such as NSAIDS, aminoglycosides, contrast dyes DVT ppx - HOLD home eliquis for now due to UGIB FEN - monitor lytes - continue IVD - NPO after midnight for possible GI procedure tomorrow Dispo: Pending Visit type - Emergency Visit Emergency Visit: Yes ED Registration Date: 11/16/19 Care time: The patient presented to the Emergency Department on the above date and was hospitalized for further evaluation of their emergent condition. - New Patient This patient is new to me today: No - Critical Care Critical Care patient: No - Discharge Referral Referred to [facility] Med P.C.: No ATTENDING PHYSICIAN STATEMENT I saw and evaluated the patient. I reviewed the resident's note and discussed the case with the resident. I agree with the resident's findings and plan as documented. SUBJECTIVE: OBJECTIVE: ASSESSMENT AND PLAN:
--- NOTE | 2019-11-17 16:25 | CON.NEP ---
Consult Consult Specialty:: Nephrology Referred by:: yoni de la vega Reason for Consultation:: azotemia - History of Present Illness Chief Complaint: abd pain, vomiting History of Present Illness: s/p abd pain, vomiting poss gastroparesis referred for eval of hypokalemia and azotemia also has elev bicarb sedated with dilaudid for pain pmh D-CHF, IDDM, CKD, HTN, chronic anemia, gastroparesis, UGIB, sayda perry tears, R leg DVT s/p IVC filter on eliquis???, noncompliant with all meds, and recent admission here 11/03-11/07/19 (then transferred to [facility] for gastric pacemaker and balloon enteroscopy, pt does not know how long there/what done) - History Source History Provided By: Medical Record, Transfer Record Limitations to Obtaining History: Clinical Condition - Past Medical History Cardio/Vascular: Yes: CHF (diastolic ), HTN Gastrointestinal: Yes: Constipation, GI Bleed (chornic indolent bleeding), Other (diabetic gastroparesis, Sayda Perry tear) Renal/: Yes: Renal Inusuff Psych: Yes: Anxiety, Depression Endocrine: Yes: Diabetes Mellitus (DM II) - Alcohol/Substance Use Hx Alcohol Use: No History of Substance Use: reports: None - Smoking History Smoking history: Never smoked Have you smoked in the past 12 months: No - Social History ADL: Independent History of Recent Travel: No Home Medications - Allergies Allergies/Adverse Reactions: Allergies Allergy/AdvReac Type Severity Reaction Status Date / Time No Known Allergies Allergy Verified 11/04/19 14:15 - Home Medications Home Medications: Ambulatory Orders Atorvastatin Ca [Lipitor] 40 mg PO HS 10/16/19 Carvedilol 12.5 mg PO BID 10/25/19 Pantoprazole Sodium [Protonix] 20 mg PO DAILY 10/25/19 Mineral Oil Enema [Fleet Mineral Oil Rectal Enema -] 133 ml RC DAILY 3 Days #3 enema 11/04/19 Lipase/Protease/Amylase [Nena Hodge 36,000 Units Capsule] 1 cap PO TIDCM capsule. 11/07/19 Apixaban [Eliquis] 5 mg PO BID 11/17/19 Insulin Lispro [Admelog] 5 unit SQ TID 11/17/19 Lisinopril [Prinivil -] 40 mg PO DAILY 11/17/19 Metoprolol Succinate [Toprol Xl] 25 mg PO DAILY 11/17/19 Nifedipine ER [Procardia Xl -] 60 mg PO DAILY 11/17/19 Nephrology Consult - Height Height: 6 ft 3 in - Weight Weight: 185 lb 6.4 oz - BMI Body Mass Index (BMI): 23.1 - Lab Results [facility]: [facility], [facility] 11/17/19 06:25 11/17/19 11:00 Anion Gap: Anion Gap Anion Gap 8 MMOL/L (8-16) 11/17/19 11:00 - Physical Examination Vital Signs: Vital Signs Temperature 98 F 11/17/19 14:00 Pulse Rate 63 11/17/19 14:00 Respiratory Rate 16 11/17/19 14:00 Blood Pressure 143/75 11/17/19 14:00 O2 Sat by Pulse Oximetry (%) 97 11/17/19 09:00 Constitutional: Yes: Well Nourished, No Distress, Calm Eyes: Yes: WNL, Conjunctiva Clear, EOM Intact HENT: Yes: WNL, Atraumatic, Normocephalic Neck: Yes: WNL, Supple, Trachea Midline Cardiovascular: Yes: WNL Respiratory: Yes: WNL Gastrointestinal: Yes: WNL Renal/: Yes: WNL Musculoskeletal: Yes: WNL Extremities: Yes: WNL Edema: No Peripheral Pulses WNL: Yes Integumentary: Yes: WNL Neurological: Yes: Lethargy, Tingling (s/p dilaudid) Psychiatric: Yes: Other (sedated with dilaudid) Assessment/Plan [facility], [facility] 11/17/19 06:25 11/17/19 11:00 11/17/19 11/17/19 04:00 11:00 Sodium 147 H 148 H Potassium 2.8 L* 3.0 L Carbon Dioxide 37 H 33 H Anion Gap 8 BUN 28.3 H 26.3 H Creatinine 2.4 H 2.2 H IMP- dehydration Free Water Losses 2/2 vomiting contraction metabolic alkalosis prerenal azotemia Hypokalemia 2/2 vomiting Parenteral hydration for now follow labs
--- NOTE | 2019-11-17 17:21 | PN ---
Teaching Attending Note Name of Resident: Kim Leong ATTENDING PHYSICIAN STATEMENT I saw and evaluated the patient. I reviewed the resident's note and discussed the case with the resident. I agree with the resident's findings and plan as documented. SUBJECTIVE: tolerating diet, with no acute distress. OBJECTIVE: Vital Signs Temperature 98 F 11/17/19 14:00 Pulse Rate 63 11/17/19 14:00 Respiratory Rate 16 11/17/19 14:00 Blood Pressure 143/75 11/17/19 14:00 O2 Sat by Pulse Oximetry (%) 97 11/17/19 09:00 pe: PER RESIDENT'S NOTE MIDEPIGASTRIC PAIN CBCD WBC 9.3 K/mm3 (4.0-10.0) 11/17/19 06:25 RBC 2.57 M/mm3 (4.00-5.60) L 11/17/19 06:25 Hgb 7.9 GM/dL (11.7-16.9) L 11/17/19 06:25 Hct 23.3 % (35.4-49) L D 11/17/19 06:25 MCV 90.5 fl (80-96) 11/17/19 06:25 MCHC 33.8 g/dl (32.0-35.9) 11/17/19 06:25 RDW 14.5 % (11.9-15.9) 11/17/19 06:25 Plt Count 206 K/MM3 (134-434) D 11/17/19 06:25 MPV 8.6 fl (7.5-11.1) 11/17/19 06:25 CMP Sodium 148 mmol/L (136-145) H 11/17/19 11:00 Potassium 3.0 mmol/L (3.5-5.1) L 11/17/19 11:00 Chloride 107 mmol/L (98-107) 11/17/19 11:00 Carbon Dioxide 33 mmol/L (21-32) H 11/17/19 11:00 Anion Gap 8 MMOL/L (8-16) 11/17/19 11:00 BUN 26.3 mg/dL (7-18) H 11/17/19 11:00 Creatinine 2.2 mg/dL (0.55-1.3) H 11/17/19 11:00 Random Glucose 123 mg/dL (74-106) H 11/17/19 11:00 Calcium 7.6 mg/dL (8.5-10.1) L 11/17/19 11:00 Total Bilirubin Cancelled 11/17/19 06:25 AST Cancelled 11/17/19 06:25 ALT Cancelled 11/17/19 06:25 Alkaline Phosphatase Cancelled 11/17/19 06:25 Total Protein Cancelled 11/17/19 06:25 Albumin Cancelled 11/17/19 06:25 CARDIAC ENZYMES Creatine Kinase 759 U/L (26-308) H 11/16/19 21:00 Troponin I 0.05 ng/ml (0.00-0.05) 11/16/19 21:00 Current Medications Generic Name Dose Route Start Last Admin Trade Name Freq PRN Reason Stop Dose Admin Acetaminophen 650 mg 11/17/19 01:57 Tylenol - PO Q4H PRN PAIN LEVEL 4 - 6 Atorvastatin Calcium 40 mg 11/17/19 22:00 Lipitor - PO HS [facility] Carvedilol 12.5 mg 11/17/19 22:00 Coreg - PO BID [facility] Docusate Sodium 100 mg 11/17/19 02:09 Colace - PO Q8H PRN CONSTIPATION Potassium Chloride/Sodium Chloride 20 meq in 1,000 mls @ 75 mls/hr 11/17/19 14:30 11/17/19 14:41 1/2ns+20meq Kcl IV 75 mls/hr ASDIR [facility] Administration Insulin Aspart 1 vial 11/17/19 07:00 11/17/19 11:11 Novolog Vial Sliding Scale - SQ Not Given ACHS [facility] Protocol Metoclopramide HCl 10 mg 11/17/19 01:57 11/17/19 06:23 Reglan Injection - IVPUSH 10 mg Q6H PRN Administration NAUSEA AND/OR VOMITING Nifedipine 60 mg 11/18/19 10:00 Procardia Xl - PO DAILY [facility] Pantoprazole Sodium 40 mg 11/17/19 10:00 11/17/19 09:51 Protonix Iv IVPUSH 40 mg BID [facility] Administration Home Medications Medication Instructions Recorded Atorvastatin Ca [Lipitor] 40 mg PO HS 10/16/19 Carvedilol 12.5 mg PO BID 10/25/19 Pantoprazole Sodium [Protonix] 20 mg PO DAILY 10/25/19 Mineral Oil Enema [Fleet Mineral 133 ml RC DAILY 3 Days #3 enema 11/04/19 Oil Rectal Enema -] Lipase/Protease/Amylase [Nena Hodge 1 cap PO TIDCM capsule. 11/07/19 36,000 Units Capsule] Apixaban [Eliquis] 5 mg PO BID 11/17/19 Insulin Lispro [Admelog] 5 unit SQ TID 11/17/19 Lisinopril [Prinivil -] 40 mg PO DAILY 11/17/19 Metoprolol Succinate [Toprol Xl] 25 mg PO DAILY 11/17/19 Nifedipine ER [Procardia Xl -] 60 mg PO DAILY 11/17/19 ASSESSMENT AND PLAN: This patient is a 58yom with PMhx of Diastolic CHF, IDDM, CKD, HTN, chronic anemia, gastroparesis, UGIB, iwona lara tears, R leg DVT s/p IVC filter on eliquis, noncompliant with all meds, and recent admission w/ transfer to [facility] for gastric pacemaker and balloon enteroscopy, presents due to 3 days of sudden onset constant epigastric stabbing pain and episodes of coffee ground emesis. He is admitted for having UGIB with gastroparesis( Hx of severe gastroparesis). #Severe gastroparesis: on reglan , protonix # UGIB: IV Protonix BID ; GI Consulted (Dr. Hernandez) #Acute blood loss anemia; type and screen , transfuse below 7 #T2DM: sliding scale w/ BGM #VAISHNAVI over CKD: creatinine 2.2 #Right LE DVT on Eliquis, on hold now since having UGIB, patient has an IVD filter, will get duplex of lower extremities DVT ppx: hold eliquis due to having UGIB
[2019-11-17 18:47] LABS: EPI CELLS 35 /uL (0-25.1); HYALINE CASTS 2 /uL (0-3.1); URINE APPEARANCE CLEAR; URINE BACTERIA 24 /uL (0-1359); URINE BILIRUBIN NEGATIVE (NEGATIVE); URINE COLOR YELLOW; URINE GLUCOSE (UA) 1+ (NEGATIVE); URINE KETONE NEGATIVE (NEGATIVE); URINE LEUK ESTERASE NEGATIVE (NEGATIVE); URINE NITRITE NEGATIVE (NEGATIVE); URINE PROTEIN 4+ (NEGATIVE); URINE RBC 12 /uL (0-23.9); URINE WBC 5 /uL (0-25.8)
[2019-11-17] MEDS: CARVEDILOL 12.5 MG TABLET (FP) PO SCH (21:39)
[2019-11-17] MEDS ORDERED: ATORVASTATIN CA 40 MG TABLET (FP) PO SCH (22:00)
[2019-11-18] MEDS: INSULIN SLIDING SCALE (NOVOLOG) 1 VIAL SQ SCH ×3 (06:09→18:33)
[2019-11-18 06:10] LABS: HEMATOCRIT 21.3 % (35.4-49); HEMOGLOBIN 7.3 GM/dL (11.7-16.9); MCH 30.5 pg (25.7-33.7); MCHC 34.2 g/dl (32.0-35.9); MEAN CELL VOLUME 89.2 fl (80-96); MEAN PLT VOLUME 8.2 fl (7.5-11.1); PLATELET COUNT 200 K/MM3 (134-434); RBC 2.39 M/mm3 (4.00-5.60); RDW 14.8 % (11.9-15.9)
[2019-11-18 06:31] LABS: ALBUMIN 1.6 g/dl (3.4-5.0); BILIRUBIN,TOTAL 0.2 mg/dL (0.2-1); BLOOD UREA NITROGEN 22.8 mg/dL (7-18); CALCIUM 7.2 mg/dL (8.5-10.1); CREATININE 2.3 mg/dL (0.55-1.3); MAGNESIUM 1.7 mg/dL (1.8-2.4); PHOSPHOROUS 3.3 mg/dL (2.5-4.9); TOT PROT 3.8 g/dl (6.4-8.2)
[2019-11-18] MEDS ORDERED: ERYTHROMYCIN IVPB SCH (06:45)
[2019-11-18] MEDS ORDERED: SODIUM CHLORIDE IVPB SCH (06:45)
[2019-11-18 07:13] LABS: POTASSIUM 2.9 mmol/L (3.5-5.1)
[2019-11-18] MEDS ORDERED: KCL 10 MEQ IVPB 10 MEQ/100 ML INFUS.BAG IVPB SCH ×3 (07:45→14:15)
--- NOTE | 2019-11-18 07:46 | PN ---
Progress Note (short form) - Note Progress Note: please obtain old records from [facility] especially endoscopic reports prior to repeat endoscopic procedures
--- NOTE | 2019-11-18 09:20 | EKG ---
Test Reason : Blood Pressure : / mmHG Vent. Rate : 084 BPM Atrial Rate : 084 BPM P-R Int : 162 ms QRS Dur : 088 ms QT Int : 386 ms P-R-T Axes : 075 -57 -37 degrees QTc Int : 456 ms SINUS RHYTHM WITH PREMATURE ATRIAL COMPLEXES LEFT AXIS DEVIATION SEPTAL INFARCT (CITED ON OR BEFORE 16-OCT-2019) ABNORMAL ECG WHEN COMPARED WITH ECG OF 04-NOV-2019 17:55, SIGNIFICANT CHANGES HAVE OCCURRED Confirmed by David Collins ([id number]) on 11/18/2019 9:20:11 AM Referred By: Confirmed By:David Collins
[2019-11-18] MEDS ORDERED: NIFEdipine E.R 60 MG TABLET PO SCH (10:00)
--- NOTE | 2019-11-18 10:18 | EKG ---
Test Reason : Blood Pressure : / mmHG Vent. Rate : 074 BPM Atrial Rate : 074 BPM P-R Int : 158 ms QRS Dur : 106 ms QT Int : 418 ms P-R-T Axes : 077 -45 -23 degrees QTc Int : 463 ms NORMAL SINUS RHYTHM INCOMPLETE RIGHT BUNDLE BRANCH BLOCK LEFT ANTERIOR FASCICULAR BLOCK CANNOT RULE OUT ANTEROSEPTAL INFARCT (CITED ON OR BEFORE 16-OCT-2019) ABNORMAL ECG WHEN COMPARED WITH ECG OF 16-NOV-2019 21:13, PREMATURE ATRIAL COMPLEXES ARE NO LONGER PRESENT Confirmed by David Collins ([id number]) on 11/18/2019 10:17:28 AM Referred By: Confirmed By:David Collins
--- NOTE | 2019-11-18 10:18 | CONS ---
GI CONSULTATION DATE OF CONSULTATION: DATE OF DICTATION: 11/17/2019 HISTORY: Patient is a 58-year-old man, past medical history of CHF, diabetes, CKD, hypertension, chronic anemia, gastroparesis, upper GI bleed secondary to Sayda-Perry tear, right leg DVT, status post IVC filter previously on anticoagulation who has been noncompliant with medications. He had a recent admission here earlier in the month of October at which time he was transferred to [facility] for further management of his gastroparesis and anemia. It is unclear if he had a balloon enteroscopy done at that time. He now returns to the hospital with a 3-day history of sudden onset epigastric abdominal pain with episodes of coffee-ground emesis which was similar to his previous episodes. He had an upper endoscopy and push enteroscopy done with Dr. Manuel in May 2019 which was unremarkable, also a colonoscopy done by Dr. Manuel in March 2019, which is within normal limits. He had an endoscopy done October 28 at [facility] which yielded LA grade B reflux esophagitis and gastritis in the stomach. As per recommendations from [facility] gastroenterology team, he should be treated with erythromycin for his gastroparesis. At this time he still complains of epigastric abdominal pain. He has not had any vomiting this morning. He denies any melena, hematochezia, syncope or coffee-ground emesis this morning. PAST MEDICAL & SURGICAL HISTORY: As listed in the HPI. ALLERGIES: No known drug allergies. SOCIAL HISTORY: Does not drink, smoke or use drugs. FAMILY HISTORY: No history of GI or gynecological malignancy. HOME MEDICATIONS: Reviewed include lisinopril, metoprolol, atorvastatin, carvedilol, insulin, pantoprazole, Fleet enemas and Creon capsules. REVIEW OF SYSTEMS: As per the HPI. PHYSICAL EXAMINATION: Vital Signs: Temperature 98, pulse 82, blood pressure 150/80, respiratory rate 12, oxygen saturation 96% on room air. General: In no acute distress. HEENT: Anicteric sclerae. Cardiovascular: S1, S2, regular rate and rhythm. Lungs: Bilaterally clear to auscultation. Abdomen: Tender in the epigastrium without rebound or guarding. Extremities: No edema. LABORATORIES: White blood cell count 9.3. Hemoglobin 7.9 and hematocrit 23, on admission it was 11 and 33; platelet count 206, PTT 28. Sodium 140, potassium 3, BUN 26, creatinine 2.2, lactic acid 1.5, glucose 123. Repeat liver tests are pending. COVID-19 is pending. He had a chest x-ray which did not reveal acute pathology. He has not had any abdominal imaging during this hospitalization. His previous hospitalization he had an abdomen and pelvic CT scan which revealed distended stomach; no thickening, no bowel obstruction; diverticulosis. Cultures were not done on this admission. IMPRESSION: Nausea and vomiting secondary to underlying gastroparesis. He has a known history of a recent endoscopy which we will need to obtain these results from [facility], which revealed LA grade B reflux esophagitis. I suspect he may have visualized coffee-ground emesis secondary to his esophagitis. I doubt he is having an active overt GI bleed at this time considering he is hemodynamically stable. RECOMMENDATION: Continue him on erythromycin 250 mg IV t.i.d. before meals, Protonix 40 mg IV b.i.d. N.p.o., IV fluids, avoid narcotics, avoid NSAID. Serial hemoglobin and hematocrits q.12. Dr. Manuel to resume care of this patient tomorrow. Tentatively keep n.p.o. for potential upper endoscopy. Will also obtain records from [facility]. DO EDWARD LAMAR/[id number]
[2019-11-18] MEDS: PANTOPRAZOLE SODIUM 40 MG VIAL IVPUSH SCH (10:35)
[2019-11-18] MEDS: CARVEDILOL 12.5 MG TABLET (FP) PO SCH (10:36)
--- NOTE | 2019-11-18 10:37 | PN ---
Physical Exam: SUBJECTIVE: Patient seen and examined bedside. Complaining of nausea but not vomiting. No events overnight. OBJECTIVE: Vital Signs Period Temp Pulse Resp BP Sys/Aceves Pulse Ox Last 24 Hr 98 F-99.2 F 63-84 16-18 135-152/75-88 96-98 GENERAL: The patient is awake, alert, in no acute distress, mild discomfort from nausea EYES: PERRL, LUNGS: CTA BL HEART: Regular rate and rhythm ABDOMEN: Soft, nontender, nondistended, normoactive bowel sounds EXTREMITIES: warm, well-perfused, no edema. PSYCH: more cooperative today Laboratory Results - last 24 hr 11/16/19 11/16/19 11/17/19 20:45 21:00 11:00 WBC RBC Hgb Hct MCV MCH MCHC RDW Plt Count MPV Sodium 148 H Potassium 3.0 L Chloride 107 Carbon Dioxide 33 H Anion Gap 8 BUN 26.3 H Creatinine 2.2 H Est GFR (CKD-EPI)AfAm 37.42 Est GFR (CKD-EPI)NonAf 32.29 POC Glucometer Random Glucose 123 H Calcium 7.6 L Phosphorus 3.6 Magnesium 1.9 Total Bilirubin AST ALT Alkaline Phosphatase Creatine Kinase 759 H Creatine Kinase Index 0.3 CK-MB (CK-2) 2.3 Troponin I 0.05 Total Protein Albumin Lipase 45 L Urine Color Urine Appearance Urine pH Ur Specific [place] Urine Protein Urine Glucose (UA) Urine Ketones Urine Blood Urine Nitrite Urine Bilirubin Urine Urobilinogen Ur Leukocyte Esterase Urine WBC (Auto) Urine RBC (Auto) Urine Casts (Auto) U Epithel Cells (Auto) Urine Bacteria (Auto) Stool Occult Blood Blood Type O POSITIVE Antibody Screen Negative Crossmatch See Detail 11/17/19 11/17/19 11/17/19 11:09 16:22 16:25 WBC RBC Hgb Hct MCV MCH MCHC RDW Plt Count MPV Sodium Potassium Chloride Carbon Dioxide Anion Gap BUN Creatinine Est GFR (CKD-EPI)AfAm Est GFR (CKD-EPI)NonAf POC Glucometer 122 182 Random Glucose Calcium Phosphorus Magnesium Total Bilirubin AST ALT Alkaline Phosphatase Creatine Kinase Creatine Kinase Index CK-MB (CK-2) Troponin I Total Protein Albumin Lipase Urine Color Yellow Urine Appearance Clear Urine pH 8.0 Ur Specific [place] 1.019 Urine Protein 4+ H Urine Glucose (UA) 1+ H Urine Ketones Negative Urine Blood Negative Urine Nitrite Negative Urine Bilirubin Negative Urine Urobilinogen 1.0 Ur Leukocyte Esterase Negative Urine WBC (Auto) 5 Urine RBC (Auto) 12 Urine Casts (Auto) 2 U Epithel Cells (Auto) 35 Urine Bacteria (Auto) 24 Stool Occult Blood Blood Type Antibody Screen Crossmatch 11/17/19 11/18/19 11/18/19 21:41 00:00 05:26 WBC RBC Hgb Hct MCV MCH MCHC RDW Plt Count MPV Sodium Potassium Chloride Carbon Dioxide Anion Gap BUN Creatinine Est GFR (CKD-EPI)AfAm Est GFR (CKD-EPI)NonAf POC Glucometer 157 126 Random Glucose Calcium Phosphorus Magnesium Total Bilirubin AST ALT Alkaline Phosphatase Creatine Kinase Creatine Kinase Index CK-MB (CK-2) Troponin I Total Protein Albumin Lipase Urine Color Urine Appearance Urine pH Ur Specific [place] Urine Protein Urine Glucose (UA) Urine Ketones Urine Blood Urine Nitrite Urine Bilirubin Urine Urobilinogen Ur Leukocyte Esterase Urine WBC (Auto) Urine RBC (Auto) Urine Casts (Auto) U Epithel Cells (Auto) Urine Bacteria (Auto) Stool Occult Blood Trace Blood Type Antibody Screen Crossmatch 11/18/19 11/18/19 05:37 05:37 WBC 10.0 RBC 2.39 L Hgb 7.3 L Hct 21.3 L MCV 89.2 MCH 30.5 MCHC 34.2 RDW 14.8 Plt Count 200 MPV 8.2 Sodium 141 Potassium 2.9 L* Chloride 103 Carbon Dioxide 35 H Anion Gap 3 L BUN 22.8 H Creatinine 2.3 H Est GFR (CKD-EPI)AfAm 35.47 Est GFR (CKD-EPI)NonAf 30.60 POC Glucometer Random Glucose 127 H Calcium 7.2 L Phosphorus 3.3 Magnesium 1.7 L Total Bilirubin 0.2 AST 25 ALT 15 Alkaline Phosphatase 68 Creatine Kinase Creatine Kinase Index CK-MB (CK-2) Troponin I Total Protein 3.8 L Albumin 1.6 L Lipase Urine Color Urine Appearance Urine pH Ur Specific [place] Urine Protein Urine Glucose (UA) Urine Ketones Urine Blood Urine Nitrite Urine Bilirubin Urine Urobilinogen Ur Leukocyte Esterase Urine WBC (Auto) Urine RBC (Auto) Urine Casts (Auto) U Epithel Cells (Auto) Urine Bacteria (Auto) Stool Occult Blood Blood Type Antibody Screen Crossmatch Active Medications Generic Name Dose Route Start Last Admin Trade Name Freq PRN Reason Stop Dose Admin Acetaminophen 650 mg 11/17/19 01:57 Tylenol - PO Q4H PRN PAIN LEVEL 4 - 6 Atorvastatin Calcium 40 mg 11/17/19 22:00 11/17/19 21:39 Lipitor - PO 40 mg HS [facility] Administration Carvedilol 12.5 mg 11/17/19 22:00 11/17/19 21:39 Coreg - PO 12.5 mg BID [facility] Administration Docusate Sodium 100 mg 11/17/19 02:09 Colace - PO Q8H PRN CONSTIPATION Potassium Chloride/Sodium Chloride 20 meq in 1,000 mls @ 75 mls/hr 11/17/19 14:30 11/17/19 14:41 1/2ns+20meq Kcl IV 75 mls/hr ASDIR PAVEL Administration Erythromycin Lactobionate 250 150 mls @ 150 mls/hr 11/18/19 06:45 mg/ Sodium Chloride IVPB Q8H [facility] Insulin Aspart 1 vial 11/17/19 07:00 11/18/19 06:09 Novolog Vial Sliding Scale - SQ Not Given ACHS [facility] Protocol Metoclopramide HCl 10 mg 11/17/19 01:57 11/17/19 06:23 Reglan Injection - IVPUSH 10 mg Q6H PRN Administration NAUSEA AND/OR VOMITING Nifedipine 60 mg 11/18/19 10:00 Procardia Xl - PO DAILY [facility] Pantoprazole Sodium 40 mg 11/17/19 10:00 11/17/19 21:39 Protonix Iv IVPUSH 40 mg BID [facility] Administration ASSESSMENT/PLAN: 58 yo M PMH of Diastolic CHF, IDDM, CKD, HTN, chronic anemia, gastroparesis, UGIB, iwona laar tears, R leg DVT s/p IVC filter on eliquis, noncompliant with all meds, and recent admission w/ transfer to [facility] for gastric pacemaker and balloon enteroscopy, presents due to 3 days of sudden onset constant epigastric stabbing pain and episodes of coffee ground emesis. He is admitted for severe gastroparesis + UGIB Severe gastroparesis + UGIB - hx of these symptoms including coffee ground emesis/ Current presentation similar to previous - multiple EGDs done w/no acute findings - IV Protonix BID - GI Consulted (Dr. Hernandez) [facility] records now in patient's chart on floor. They do not specify any other tests done. They report in notes the last EGD being 6/28 before patient was transferred. Their discharge note says patient's symptoms were medically manages on q8 erythromycin. Discussed with Dr. Mar Jordan at [facility] will accept the patient for video capsule and possible double balloon enteroscopy Dx: occult GI bleeding & intractable abdominal pain, nausea, and vomiting, with history of mesenteric ischemia Patient transport pending Covid-19 results: once back please call [facility] for transfer Hypokalemia & Hypernatremia - likely 2/2 vomiting and hyperglycemia & dehydration - continue IVF 1/2 NS w 20 meq K - another k-rider given today because of low K - continue to monitor Anemia - Likely multifactorial- CKD and DM - FOBT - Patient hbg 7.3 today >> 1 unit PRBCs DM - sliding scale w/ BGM VAISHNAVI w/ CKD - Likely 2/2 diabetic nephropathy v Rhabdo & dehydration - Avoid nephrotoxic agents such as NSAIDS, aminoglycosides, contrast dyes DVT ppx HOLD home eliquis for now due to UGIB FEN - monitor lytes - continue IVD - low sodium diet Dispo: Pending Visit type - Emergency Visit Emergency Visit: Yes ED Registration Date: 11/16/19 Care time: The patient presented to the Emergency Department on the above date and was hospitalized for further evaluation of their emergent condition. - New Patient This patient is new to me today: No - Critical Care Critical Care patient: No - Discharge Referral Referred to [facility] Med P.C.: No ATTENDING PHYSICIAN STATEMENT I saw and evaluated the patient. I reviewed the resident's note and discussed the case with the resident. I agree with the resident's findings and plan as documented. SUBJECTIVE: OBJECTIVE: ASSESSMENT AND PLAN:
--- NOTE | 2019-11-18 12:49 | PN ---
Progress Note, Physician History of Present Illness: Pt seen and examined at bedside. He is awake and alert. He says that nausea is improved. He feels hungry. - Current Medication List Current Medications: Active Medications Acetaminophen (Tylenol -) 650 mg PO Q4H PRN PRN Reason: PAIN LEVEL 4 - 6 Last Admin: 11/18/19 10:36 Dose: 650 mg Documented by: Atorvastatin Calcium (Lipitor -) 40 mg PO HS [facility] Last Admin: 11/17/19 21:39 Dose: 40 mg Documented by: Carvedilol (Coreg -) 12.5 mg PO BID [facility] Last Admin: 11/18/19 10:36 Dose: 12.5 mg Documented by: Docusate Sodium (Colace -) 100 mg PO Q8H PRN PRN Reason: CONSTIPATION Potassium Chloride/Sodium Chloride (1/2ns+20meq Kcl) 20 meq in 1,000 mls @ 75 mls/hr IV ASDIR [facility] Last Admin: 11/17/19 14:41 Dose: 75 mls/hr Documented by: Erythromycin Lactobionate 250 (mg/ Sodium Chloride) 150 mls @ 150 mls/hr IVPB Q8H [facility] Potassium Chloride (Potassium Chloride 10 Meq Premix Ivpb -) 10 meq in 100 mls @ 100 mls/hr IVPB Q60M [facility] Stop: 11/18/19 14:14 Insulin Aspart (Novolog Vial Sliding Scale -) 1 vial SQ ACHS [facility]; Protocol Last Admin: 11/18/19 12:20 Dose: Not Given Documented by: Metoclopramide HCl (Reglan Injection -) 10 mg IVPUSH Q6H PRN PRN Reason: NAUSEA AND/OR VOMITING Last Admin: 11/17/19 06:23 Dose: 10 mg Documented by: Nifedipine (Procardia Xl -) 60 mg PO DAILY [facility] Last Admin: 11/18/19 10:36 Dose: 60 mg Documented by: Pantoprazole Sodium (Protonix Iv) 40 mg IVPUSH BID [facility] Last Admin: 11/18/19 10:35 Dose: 40 mg Documented by: - Objective Vital Signs: Vital Signs Temperature 98.8 F 11/18/19 06:00 Pulse Rate 84 11/18/19 06:00 Respiratory Rate 18 11/18/19 06:00 Blood Pressure 144/82 11/18/19 06:00 O2 Sat by Pulse Oximetry (%) 96 11/18/19 06:00 Constitutional: Yes: Calm Eyes: Yes: Conjunctiva Clear HENT: Yes: Atraumatic Neck: Yes: Supple Cardiovascular: Yes: S1, S2 Respiratory: Yes: CTA Bilaterally Gastrointestinal: Yes: Normal Bowel Sounds, Soft Genitourinary: Yes: WNL Musculoskeletal: Yes: WNL Edema: No Neurological: Yes: Oriented Psychiatric: Yes: Oriented Labs: CBC, BMP 11/18/19 05:37 11/18/19 05:37 Assessment/Plan Current Medications Generic Name Dose Route Start Last Admin Trade Name Freq PRN Reason Stop Dose Admin Acetaminophen 650 mg 11/17/19 01:57 11/18/19 10:36 Tylenol - PO 650 mg Q4H PRN Administration PAIN LEVEL 4 - 6 Atorvastatin Calcium 40 mg 11/17/19 22:00 11/17/19 21:39 Lipitor - PO 40 mg HS [facility] Administration Carvedilol 12.5 mg 11/17/19 22:00 11/18/19 10:36 Coreg - PO 12.5 mg BID [facility] Administration Docusate Sodium 100 mg 11/17/19 02:09 Colace - PO Q8H PRN CONSTIPATION Potassium Chloride/Sodium Chloride 20 meq in 1,000 mls @ 75 mls/hr 11/17/19 14:30 11/17/19 14:41 1/2ns+20meq Kcl IV 75 mls/hr ASDIR [facility] Administration Erythromycin Lactobionate 250 150 mls @ 150 mls/hr 11/18/19 06:45 mg/ Sodium Chloride IVPB Q8H [facility] Potassium Chloride 10 meq in 100 mls @ 100 mls/hr 11/18/19 12:15 Potassium Chloride 10 Meq Premix Ivpb - IVPB 11/18/19 14:14 Q60M [facility] Insulin Aspart 1 vial 11/17/19 07:00 11/18/19 12:20 Novolog Vial Sliding Scale - SQ Not Given ACHS [facility] Protocol Metoclopramide HCl 10 mg 11/17/19 01:57 11/17/19 06:23 Reglan Injection - IVPUSH 10 mg Q6H PRN Administration NAUSEA AND/OR VOMITING Nifedipine 60 mg 11/18/19 10:00 11/18/19 10:36 Procardia Xl - PO 60 mg DAILY [facility] Administration Pantoprazole Sodium 40 mg 11/17/19 10:00 11/18/19 10:35 Protonix Iv IVPUSH 40 mg BID [facility] Administration Impression 1. vomiting 2. HTN 3. DM 4. anemia 5. bph 6. CKD 7. gastroparesis 8. hypokalemia Plan - replace potassium - replace mag - cont fluids - GI follow up - monitor renal function - resume lisinopril
[2019-11-18] MEDS ORDERED: MAGNESIUM 2GM/50ML STERILE WATER IVPB IVPB ONE (12:50)
[2019-11-18] MEDS ORDERED: LISINOPRIL 10 MG TABLET (FP) PO SCH (13:00)
[2019-11-18] MEDS: KCL 10 MEQ IVPB 10 MEQ/100 ML INFUS.BAG IVPB SCH ×2 (14:53→17:00)
[2019-11-18] MEDS: SODIUM CHLORIDE 0.45%/POT 20 MEQ/1,000 ML INFUS.BAG IV SCH (14:54)
--- NOTE | 2019-11-18 17:44 | PN ---
Teaching Attending Note Name of Resident: Kim Leong ATTENDING PHYSICIAN STATEMENT I saw and evaluated the patient. I reviewed the resident's note and discussed the case with the resident. I agree with the resident's findings and plan as documented. SUBJECTIVE: Patient continues to have abdominal pain OBJECTIVE: Vital Signs Temperature 97.9 F 11/18/19 17:42 Pulse Rate 68 11/18/19 17:42 Respiratory Rate 18 11/18/19 17:42 Blood Pressure 144/77 11/18/19 17:42 O2 Sat by Pulse Oximetry (%) 95 11/18/19 10:00 PE:per resident's note CBCD WBC 10.0 K/mm3 (4.0-10.0) 11/18/19 05:37 RBC 2.39 M/mm3 (4.00-5.60) L 11/18/19 05:37 Hgb 7.3 GM/dL (11.7-16.9) L 11/18/19 05:37 Hct 21.3 % (35.4-49) L 11/18/19 05:37 MCV 89.2 fl (80-96) 11/18/19 05:37 MCHC 34.2 g/dl (32.0-35.9) 11/18/19 05:37 RDW 14.8 % (11.9-15.9) 11/18/19 05:37 Plt Count 200 K/MM3 (134-434) 11/18/19 05:37 MPV 8.2 fl (7.5-11.1) 11/18/19 05:37 CMP Sodium 141 mmol/L (136-145) 11/18/19 05:37 Potassium 2.9 mmol/L (3.5-5.1) L* 11/18/19 05:37 Chloride 103 mmol/L (98-107) 11/18/19 05:37 Carbon Dioxide 35 mmol/L (21-32) H 11/18/19 05:37 Anion Gap 3 MMOL/L (8-16) L 11/18/19 05:37 BUN 22.8 mg/dL (7-18) H 11/18/19 05:37 Creatinine 2.3 mg/dL (0.55-1.3) H 11/18/19 05:37 Random Glucose 127 mg/dL (74-106) H 11/18/19 05:37 Calcium 7.2 mg/dL (8.5-10.1) L 11/18/19 05:37 Total Bilirubin 0.2 mg/dL (0.2-1) 11/18/19 05:37 AST 25 U/L (15-37) 11/18/19 05:37 ALT 15 U/L (13-61) 11/18/19 05:37 Alkaline Phosphatase 68 U/L (45-117) 11/18/19 05:37 Total Protein 3.8 g/dl (6.4-8.2) L 11/18/19 05:37 Albumin 1.6 g/dl (3.4-5.0) L 11/18/19 05:37 CARDIAC ENZYMES Creatine Kinase 759 U/L (26-308) H 11/16/19 21:00 Troponin I 0.05 ng/ml (0.00-0.05) 11/16/19 21:00 Current Medications Generic Name Dose Route Start Last Admin Trade Name Freq PRN Reason Stop Dose Admin Acetaminophen 650 mg 11/17/19 01:57 11/18/19 10:36 Tylenol - PO 650 mg Q4H PRN Administration PAIN LEVEL 4 - 6 Atorvastatin Calcium 40 mg 11/17/19 22:00 11/17/19 21:39 Lipitor - PO 40 mg HS PAVEL Administration Carvedilol 12.5 mg 11/17/19 22:00 11/18/19 10:36 Coreg - PO 12.5 mg BID PAVEL Administration Docusate Sodium 100 mg 11/17/19 02:09 Colace - PO Q8H PRN CONSTIPATION Potassium Chloride/Sodium Chloride 20 meq in 1,000 mls @ 75 mls/hr 11/17/19 14:30 11/18/19 14:54 1/2ns+20meq Kcl IV Not Given ASDIR [facility] Erythromycin Lactobionate 250 150 mls @ 150 mls/hr 11/18/19 06:45 mg/ Sodium Chloride IVPB Q8H [facility] Insulin Aspart 1 vial 11/17/19 07:00 11/18/19 12:20 Novolog Vial Sliding Scale - SQ Not Given ACHS [facility] Protocol Lisinopril 10 mg 11/18/19 13:00 11/18/19 14:54 Prinivil PO 10 mg DAILY PAVEL Administration Metoclopramide HCl 10 mg 11/17/19 01:57 11/17/19 06:23 Reglan Injection - IVPUSH 10 mg Q6H PRN Administration NAUSEA AND/OR VOMITING Nifedipine 60 mg 11/18/19 10:00 11/18/19 10:36 Procardia Xl - PO 60 mg DAILY PAVEL Administration Pantoprazole Sodium 40 mg 11/17/19 10:00 11/18/19 10:35 Protonix Iv IVPUSH 40 mg BID PAVEL Administration ASSESSMENT AND PLAN: This patient is a 58yom with PMhx of Diastolic CHF, IDDM, CKD, HTN, chronic anemia, gastroparesis, UGIB, iwona lara tears, R leg DVT s/p IVC filter on eliquis, noncompliant with all meds, and recent admission w/ transfer to [facility] for gastric pacemaker and balloon enteroscopy, presents due to 3 days of sudden onset constant epigastric stabbing pain and episodes of coffee ground emesis. He is admitted for having UGIB with gastroparesis( Hx of severe gastroparesis). #Severe gastroparesis: on reglan , protonix, patient will be transferred back to [facility] once Covid is negative , patient is going back balloon enteroscopy and gastric pacemaker. # UGIB: IV Protonix BID ; GI Consulted (Dr. Hernandez) #Acute blood loss anemia; type and screen , transfuse below 7 #T2DM: sliding scale w/ BGM #VAISHNAVI over CKD: creatinine 2.2 #Right LE DVT on Eliquis, on hold now since having UGIB, patient has an IVC filter, duplex of lower extremities is pending DVT ppx: hold eliquis due to having UGIB
[2019-11-18 21:57] VITALS: BP 138/70; PULSE 70; TEMP 98.1
--- NOTE | 2019-11-19 06:58 | DS ---
Physical Exam: SUBJECTIVE: Patient seen and examined bedside. Experiencing nausea but no vomiting. In no acute distress. No events overnight. OBJECTIVE: Vital Signs Period Temp Pulse Resp BP Sys/Aceves Pulse Ox Last 24 Hr 97.9 F-98.9 F 68-77 18-22 121-159/64-92 95-99 PHYSICAL EXAM GENERAL: The patient is awake, alert, in no acute distress, mild discomfort from nausea EYES: PERRL, LUNGS: CTA BL HEART: Regular rate and rhythm ABDOMEN: Soft, nontender, nondistended, normoactive bowel sounds EXTREMITIES: warm, well-perfused, no edema. PSYCH: more cooperative today LABS Laboratory Results - last 24 hr 11/16/19 11/16/19 11/16/19 20:45 21:00 23:10 Potassium Anion Gap POC Glucometer Alkaline Phosphatase Creatine Kinase 759 H Creatine Kinase Index 0.3 CK-MB (CK-2) 2.3 Troponin I 0.05 Lipase 45 L COVID-19 ([facility]) Not detected Blood Type O POSITIVE Antibody Screen Negative Crossmatch See Detail 11/18/19 11/18/19 11/18/19 05:37 11:46 17:31 Potassium 2.9 L* Anion Gap 3 L POC Glucometer 119 165 Alkaline Phosphatase 68 Creatine Kinase Creatine Kinase Index CK-MB (CK-2) Troponin I Lipase COVID-19 ([facility]) Blood Type Antibody Screen Crossmatch HOSPITAL COURSE: Patient presented to the ED with 3 days of constant nausea and vomiting with an episode of coffee ground emesis. He was admitted for severe gastroparesis + UGIB. Patient Had recently been discharged from [facility] after being transferred there from [facility]. At [facility] patient's symptoms were medically manages on q8 erythromycin. While in the hospital, patient received 1 unit if pRBC on 11/18/19. GI was consulted and patient is to be transferred to [facility] under Dr. Mic Jordan for video capsule and possible double balloon enteroscopy. Dx: Occult GI bleeding & intractable abdominal pain, nausea, and vomiting, with history of mesenteric ischemia Patient was transferred last night 11/18/19 Date of Admission:11/16/19 Date of Discharge: 11/19/19 Minutes to complete discharge: 40 Discharge Summary Problems reviewed: Yes Reason For Visit: ELEVATED BETA-HYDROXYBUTYRIC ACID LEVEL, Condition: Fair - Instructions Disposition: TRANSFER ACUTE CARE/OTHER HOSP - Home Medications Comprehensive Discharge Medication List: Ambulatory Orders Atorvastatin Ca [Lipitor] 40 mg PO HS 10/16/19 Carvedilol 12.5 mg PO BID 10/25/19 Pantoprazole Sodium [Protonix] 20 mg PO DAILY 10/25/19 Mineral Oil Enema [Fleet Mineral Oil Rectal Enema -] 133 ml RC DAILY 3 Days #3 enema 11/04/19 Lipase/Protease/Amylase [Nena Hodge 36,000 Units Capsule] 1 cap PO TIDCM capsule. 11/07/19 Apixaban [Eliquis] 5 mg PO BID 11/17/19 Insulin Lispro [Admelog] 5 unit SQ TID 11/17/19 Lisinopril [Prinivil -] 40 mg PO DAILY 11/17/19 Metoprolol Succinate [Toprol Xl] 25 mg PO DAILY 11/17/19 Nifedipine ER [Procardia Xl -] 60 mg PO DAILY 11/17/19 This patient is new to me today: No Emergency Visit: Yes ED Registration Date: 11/16/19 Care time: The patient presented to the Emergency Department on the above date and was hospitalized for further evaluation of their emergent condition. Critical Care patient: No - Discharge Referral Referred to [facility] Med P.C.: No ATTENDING PHYSICIAN STATEMENT I saw and evaluated the patient. I reviewed the resident's note and discussed the case with the resident. I agree with the resident's findings and plan as documented. SUBJECTIVE: OBJECTIVE: ASSESSMENT AND PLAN:
== END 2019-11-18 21:58 | disposition short-term general hospital (02) | DRG 253 ==
LOC: JER 19:08 → JERBED 22:36 → J4W 11-17 02:48
PROVIDERS: ADMIT Internal Medicine; ATTEND Internal Medicine
PROC: 30233N1 Transfusion of Nonautologous Red Blood Cells into Peripheral Vein, Percutaneous Approach (ICD-10-PCS; principal; 2019-11-16)
DX: K92.0 Hematemesis (principal); D63.1 Anemia in chronic kidney disease; R94.31 Abnormal electrocardiogram [ECG] [EKG]; J44.9 Chronic obstructive pulmonary disease, unspecified; E11.43 Type 2 diabetes mellitus with diabetic autonomic (poly)neuropathy; E11.65 Type 2 diabetes mellitus with hyperglycemia; R11.2 Nausea with vomiting, unspecified; N40.0 Benign prostatic hyperplasia without lower urinary tract symptoms; N18.9 Chronic kidney disease, unspecified; E87.6 Hypokalemia; E87.0 Hyperosmolality and hypernatremia; E86.0 Dehydration; Z91.14 Patient's other noncompliance with medication regimen; N17.9 Acute kidney failure, unspecified; D62 Acute posthemorrhagic anemia; E11.22 Type 2 diabetes mellitus with diabetic chronic kidney disease; I50.32 Chronic diastolic (congestive) heart failure; E11.21 Type 2 diabetes mellitus with diabetic nephropathy; K31.84 Gastroparesis; I13.0 Hypertensive heart and chronic kidney disease with heart failure and stage 1 through stage 4 chronic kidney disease, or unspecified chronic kidney disease
CPT/HCPCS: 36415; 36430; 36511; 71045-TC-FY; 80048; 80053; 81003; 82010; 82272; 82550; 82553; 82803; 82962; 83605; 83690; 83735; 84100; 84484; 85025; 85027; 85730; 86850; 86900; 86901; 86922; 93005; 93010; 99285-25; J0131; J3480; P9038; P9058; U0003

== ENCOUNTER 2020-05-17 18:32 | Inpatient (IN) | payer OTHER ==
[2020-05-17 18:44] VITALS: BMI 25.0
[2020-05-17] MEDS ORDERED: ONDANSETRON 4 MG/2 ML VIAL ONE (18:46)
[2020-05-17] MEDS ORDERED: hydrALAZINE HCL 20 MG/ML VIAL IVPUSH ONE (19:21)
[2020-05-17] MEDS ORDERED: METOCLOPRAMIDE HCL INJECTION 10 MG/2 ML VIAL IVPUSH ONE (19:24)
[2020-05-17] MEDS ORDERED: ACETAMINOPHEN 1000 MG/100 ML VIAL (NON FORMULARY) IVPB ONE (19:24)
[2020-05-17] MEDS ORDERED: SODIUM CHLORIDE 500 ML IV STA (19:24)
[2020-05-17] MEDS ORDERED: METOCLOPRAMIDE HCL INJECTION 10 MG/2 ML VIAL ONE (19:48)
[2020-05-17] MEDS ORDERED: hydrALAZINE HCL 20 MG/ML VIAL ONE (19:49)
[2020-05-17] MEDS ORDERED: ACETAMINOPHEN INJECTION 100 ML IVPB ONE (19:49)
[2020-05-17] MEDS ORDERED: FAMOTIDINE 20 MG/50 ML IVPB 20 MG/50 ML MG IVPB ONE ×2 (19:58→21:04)
[2020-05-17 20:12] LABS: HEMATOCRIT 32.1 % (35.4-49); HEMOGLOBIN 10.6 GM/dL (11.7-16.9); MCH 30.2 pg (25.7-33.7); MCHC 33.2 g/dl (32.0-35.9); MEAN PLT VOLUME 9.5 fl (7.5-11.1); PLATELET COUNT 258 K/MM3 (134-434); RBC 3.53 M/mm3 (4.00-5.60); RDW 13.8 % (11.9-15.9)
[2020-05-17 20:30] LABS: CHLORIDE 102 mmol/L (98-107); POTASSIUM 3.7 mmol/L (3.5-5.1); SODIUM 146 mmol/L (136-145)
[2020-05-17 20:33] LABS: ALBUMIN 3.3 g/dl (3.4-5.0); ANION GAP 7 MMOL/L (8-16); BLOOD UREA NITROGEN 41.8 mg/dL (7-18); CALCIUM 8.9 mg/dL (8.5-10.1); CO2 36 mmol/L (21-32); LIPASE 110 U/L (73-393)
[2020-05-17 20:34] LABS: GLUCOSE,RANDOM 221 mg/dL (74-106)
[2020-05-17 20:36] LABS: CREATININE 3.9 mg/dL (0.55-1.3); SGOT/AST 19 U/L (15-37); SGPT/ALT 17 U/L (13-61)
[2020-05-17 20:37] LABS: BILIRUBIN,TOTAL 0.5 mg/dL (0.2-1)
[2020-05-17 20:39] LABS: ALK PHOS 140 U/L (45-117)
[2020-05-17] MEDS ORDERED: KETOROLAC TROMETHAMINE 15 MG/ML VIAL IVPUSH ONE (21:02)
[2020-05-17] MEDS ORDERED: HALOPERIDOL LACTATE 5 MG/ML IV ONE (21:05)
[2020-05-17] MEDS ORDERED: KETOROLAC TROMETHAMINE 15 MG/ML VIAL ONE (21:26)
[2020-05-17] MEDS ORDERED: HALOPERIDOL LACTATE 5 MG/ML ONE (21:26)
[2020-05-17 22:33] LABS: VENOUS BASE EXCESS 7.7 mmol/L (-2-2); VENOUS PCO2 52.5 mmHg (38-52); VENOUS PH 7.424 (7.310-7.410)
[2020-05-18] MEDS ORDERED: METOCLOPRAMIDE HCL INJECTION 10 MG/2 ML VIAL IVPUSH PRN (03:36)
[2020-05-18] MEDS ORDERED: PROCHLORPERAZINE INJECTION 10 MG/2 ML VIAL IVPB PRN (03:37)
[2020-05-18] MEDS ORDERED: SODIUM CHLORIDE 1,000 ML IV SCH ×2 (03:45→08:52)
[2020-05-18] MEDS ORDERED: ACETAMINOPHEN 325 MG TABLET (FP) ONE (04:05)
[2020-05-18 07:20] LABS: BASO % 0.2 % (0-2.0); EOS % 0.2 % (0-4.5); HEMATOCRIT 31.2 % (35.4-49); HEMOGLOBIN 10.5 GM/dL (11.7-16.9); LYMPH % 12.7 % (8-40); MCH 30.8 pg (25.7-33.7); MCHC 33.8 g/dl (32.0-35.9); MEAN CELL VOLUME 91.2 fl (80-96); MEAN PLT VOLUME 9.9 fl (7.5-11.1); MONO % 10.6 % (3.8-10.2); NEUT % 76.3 % (42.8-82.8); PLATELET COUNT 244 K/MM3 (134-434); RBC 3.42 M/mm3 (4.00-5.60); RDW 13.7 % (11.9-15.9); WHITE BLOOD COUNT 14.3 K/mm3 (4.0-10.0)
[2020-05-18 07:30] LABS: POTASSIUM 3.7 mmol/L (3.5-5.1)
[2020-05-18 07:36] LABS: BLOOD UREA NITROGEN 49.2 mg/dL (7-18); CALCIUM 8.3 mg/dL (8.5-10.1)
[2020-05-18 07:37] LABS: MAGNESIUM 3.3 mg/dL (1.8-2.4)
[2020-05-18 07:39] LABS: CREATININE 4.5 mg/dL (0.55-1.3)
[2020-05-18] MEDS ORDERED: NIFEdipine E.R. 30 MG TABLET ONE (07:39)
[2020-05-18 07:40] LABS: BILIRUBIN,TOTAL 0.4 mg/dL (0.2-1); PHOSPHOROUS 5.8 mg/dL (2.5-4.9)
[2020-05-18] MEDS: INSULIN SLIDING SCALE (NOVOLOG) 1 VIAL SQ SCH ×4 (07:40→21:52)
[2020-05-18 07:41] LABS: TOT PROT 6.3 g/dl (6.4-8.2)
[2020-05-18] MEDS: NIFEdipine E.R 60 MG TABLET PO SCH ×2 (08:00→11:01)
[2020-05-18] MEDS ORDERED: VALSARTAN 160 MG TABLET PO SCH (10:00)
[2020-05-18] MEDS ORDERED: INSULIN (LEVEMIR) 100 UNITS/ML UNITS SQ SCH (10:00)
[2020-05-18] MEDS ORDERED: cefTRIAXone SODIUM 1 GM VIAL ONE (10:56)
[2020-05-18] MEDS ORDERED: DEXTROSE 5%-WATER - 50 ML IVPB ONE (10:57)
[2020-05-18] MEDS: PANTOPRAZOLE SODIUM 40 MG VIAL IVPUSH SCH ×2 (11:00→21:52)
[2020-05-18] MEDS: CEFTRIAXONE 1 GM in DEXTROSE 5%-WATER - 50 ML IVPB SCH (11:00)
[2020-05-18] MEDS ORDERED: INSULIN (NOVOLOG) ASPART 100 UNITS/ML 10ML VIAL ONE (11:19)
[2020-05-18] MEDS: ONDANSETRON 4 MG/2 ML VIAL IVPUSH SCH ×3 (15:07→21:52)
[2020-05-18] MEDS: hydrALAZINE HCL 50 MG TABLET (FP) PO SCH ×2 (15:07→21:52)
[2020-05-18] MEDS ORDERED: LACTATED RINGERS SOLUTION 1,000 ML/1,000 ML INFUS.BAG IV SCH (16:15)
[2020-05-18] MEDS: LACTATED RINGERS SOLUTION 1,000 ML/1,000 ML INFUS.BAG IV SCH (16:40)
[2020-05-18] MEDS ORDERED: INSULIN (LEVEMIR) 100 UNITS/ML UNITS SQ ONE (17:46)
[2020-05-18 19:04] LABS: COCAINE, UR NEGATIVE ng/ml (CUTOFF=300); URINE BENZODIAZEPINES NEGATIVE ng/ml (CUTOFF=200)
[2020-05-18 19:05] LABS: METHADONE, UR NEGATIVE ng/ml (CUTOFF=300); OPIATES, URI NEGATIVE ng/ml (CUTOFF=300); PHENCYCLIDINE,URINE NEGATIVE ng/ml (CUTOFF=25)
[2020-05-18 19:08] LABS: URINE AMPHETAMINES NEGATIVE ng/ml (CUTOFF=500); URINE BARBITURATES NEGATIVE ng/ml (CUTOFF=200)
[2020-05-18] MEDS: ATORVASTATIN CA 40 MG TABLET (FP) PO SCH (21:52)
[2020-05-19] MEDS ORDERED: ONDANSETRON 4 MG/2 ML VIAL IVPUSH PRN (02:00)
[2020-05-19] MEDS: ONDANSETRON 4 MG/2 ML VIAL IVPUSH SCH (03:29)
[2020-05-19] MEDS: hydrALAZINE HCL 50 MG TABLET (FP) PO SCH ×3 (06:28→21:11)
[2020-05-19] MEDS: ACETAMINOPHEN 325 MG TABLET (FP) PO PRN (06:39)
[2020-05-19] MEDS: INSULIN (LEVEMIR) 100 UNITS/ML UNITS SQ SCH ×2 (06:40→17:24)
[2020-05-19] MEDS: INSULIN SLIDING SCALE (NOVOLOG) 1 VIAL SQ SCH ×4 (06:41→21:11)
[2020-05-19 09:05] LABS: BASO % 0.2 % (0-2.0); EOS % 0.6 % (0-4.5); LYMPH % 24.3 % (8-40); MCH 30.4 pg (25.7-33.7); MCHC 33.5 g/dl (32.0-35.9); MEAN CELL VOLUME 90.9 fl (80-96); MEAN PLT VOLUME 9.3 fl (7.5-11.1); MONO % 7.2 % (3.8-10.2); NEUT % 67.7 % (42.8-82.8); PLATELET COUNT 213 K/MM3 (134-434); RBC 2.97 M/mm3 (4.00-5.60); RDW 13.7 % (11.9-15.9)
[2020-05-19 09:28] LABS: POTASSIUM 3.5 mmol/L (3.5-5.1)
[2020-05-19 09:35] LABS: BLOOD UREA NITROGEN 47.9 mg/dL (7-18); CALCIUM 7.8 mg/dL (8.5-10.1)
[2020-05-19 09:39] LABS: CREATININE 4.4 mg/dL (0.55-1.3)
[2020-05-19] MEDS ORDERED: DEXTROSE 5%-WATER - 50 ML IVPB ONE (09:50)
[2020-05-19] MEDS ORDERED: cefTRIAXone SODIUM 1 GM VIAL ONE (09:50)
[2020-05-19] MEDS: NIFEdipine E.R 60 MG TABLET PO SCH (09:54)
[2020-05-19] MEDS: CEFTRIAXONE 1 GM in DEXTROSE 5%-WATER - 50 ML IVPB SCH (09:54)
[2020-05-19] MEDS: PANTOPRAZOLE SODIUM 40 MG VIAL IVPUSH SCH ×2 (09:55→21:12)
[2020-05-19] MEDS: LACTATED RINGERS SOLUTION 1,000 ML/1,000 ML INFUS.BAG IV SCH ×2 (09:58→11:05)
[2020-05-19] MEDS ORDERED: INSULIN (NOVOLOG) ASPART 100 UNITS/ML 10ML VIAL ONE (10:58)
[2020-05-19] MEDS ORDERED: INSULIN (LEVEMIR) 100 UNITS/ML UNITS SQ ONE (10:59)
[2020-05-19] MEDS ORDERED: PT OWN MED DRAWER 7, Y5N ONE (21:06)
[2020-05-19] MEDS: ATORVASTATIN CA 40 MG TABLET (FP) PO SCH (21:11)
[2020-05-20] MEDS: LACTATED RINGERS SOLUTION 1,000 ML/1,000 ML INFUS.BAG IV SCH ×2 (00:24→16:33)
[2020-05-20] MEDS: INSULIN (LEVEMIR) 100 UNITS/ML UNITS SQ SCH ×2 (06:20→16:27)
[2020-05-20] MEDS: INSULIN SLIDING SCALE (NOVOLOG) 1 VIAL SQ SCH ×4 (06:20→21:24)
[2020-05-20] MEDS: hydrALAZINE HCL 50 MG TABLET (FP) PO SCH ×3 (06:28→21:23)
[2020-05-20] MEDS: ACETAMINOPHEN 325 MG TABLET (FP) PO PRN ×2 (06:42→21:09)
[2020-05-20 08:42] LABS: HEMATOCRIT 26.7 % (35.4-49); HEMOGLOBIN 8.9 GM/dL (11.7-16.9); MCH 30.5 pg (25.7-33.7); MCHC 33.4 g/dl (32.0-35.9); MEAN CELL VOLUME 91.1 fl (80-96); MEAN PLT VOLUME 9.2 fl (7.5-11.1); PLATELET COUNT 208 K/MM3 (134-434); RBC 2.93 M/mm3 (4.00-5.60); RDW 13.8 % (11.9-15.9); WHITE BLOOD COUNT 8.8 K/mm3 (4.0-10.0)
[2020-05-20 09:07] LABS: POTASSIUM 3.9 mmol/L (3.5-5.1)
[2020-05-20 09:08] LABS: CALCIUM 8.2 mg/dL (8.5-10.1)
[2020-05-20 09:09] LABS: BLOOD UREA NITROGEN 44.3 mg/dL (7-18); MAGNESIUM 2.8 mg/dL (1.8-2.4)
[2020-05-20 09:12] LABS: CREATININE 3.8 mg/dL (0.55-1.3); PHOSPHOROUS 5.2 mg/dL (2.5-4.9)
[2020-05-20] MEDS ORDERED: PT OWN MED DRAWER 7, Y5N ONE (09:52)
[2020-05-20] MEDS ORDERED: cefTRIAXone SODIUM 1 GM VIAL ONE (09:52)
[2020-05-20] MEDS ORDERED: DEXTROSE 5%-WATER - 50 ML IVPB ONE (09:52)
[2020-05-20] MEDS: CEFTRIAXONE 1 GM in DEXTROSE 5%-WATER - 50 ML IVPB SCH (09:55)
[2020-05-20] MEDS: NIFEdipine E.R 60 MG TABLET PO SCH (09:55)
[2020-05-20] MEDS: PANTOPRAZOLE SODIUM 40 MG VIAL IVPUSH SCH ×2 (09:57→21:24)
[2020-05-20] MEDS: CARVEDILOL 6.25 MG TABLET (FP) PO SCH ×2 (10:35→21:23)
[2020-05-20] MEDS ORDERED: INSULIN (NOVOLOG) ASPART 100 UNITS/ML 10ML VIAL ONE ×2 (16:32→20:41)
[2020-05-20] MEDS ORDERED: INSULIN (LEVEMIR) 100 UNITS/ML UNITS SQ ONE (16:32)
[2020-05-20] MEDS: ATORVASTATIN CA 40 MG TABLET (FP) PO SCH (21:24)
[2020-05-21] MEDS: INSULIN (LEVEMIR) 100 UNITS/ML UNITS SQ SCH ×2 (06:52→17:47)
[2020-05-21] MEDS: INSULIN SLIDING SCALE (NOVOLOG) 1 VIAL SQ SCH ×3 (06:55→17:45)
[2020-05-21] MEDS: hydrALAZINE HCL 50 MG TABLET (FP) PO SCH (06:55)
[2020-05-21 08:31] LABS: HEMATOCRIT 26.9 % (35.4-49); MCH 30.6 pg (25.7-33.7); MCHC 33.5 g/dl (32.0-35.9); MEAN CELL VOLUME 91.4 fl (80-96); MEAN PLT VOLUME 9.9 fl (7.5-11.1); PLATELET COUNT 199 K/MM3 (134-434); RBC 2.94 M/mm3 (4.00-5.60); RDW 13.3 % (11.9-15.9); WHITE BLOOD COUNT 8.2 K/mm3 (4.0-10.0)
[2020-05-21 08:47] LABS: BILIRUBIN,TOTAL 0.1 mg/dL (0.2-1); TOT PROT 5.4 g/dl (6.4-8.2)
[2020-05-21 08:51] LABS: ALBUMIN 2.5 g/dl (3.4-5.0); BLOOD UREA NITROGEN 42.3 mg/dL (7-18); CALCIUM 7.5 mg/dL (8.5-10.1); MAGNESIUM 2.7 mg/dL (1.8-2.4)
[2020-05-21 08:54] LABS: CREATININE 3.8 mg/dL (0.55-1.3); PHOSPHOROUS 4.8 mg/dL (2.5-4.9)
[2020-05-21] MEDS ORDERED: DEXTROSE 5%-WATER - 50 ML IVPB ONE (09:41)
[2020-05-21] MEDS ORDERED: cefTRIAXone SODIUM 1 GM VIAL ONE (09:41)
[2020-05-21] MEDS ORDERED: PT OWN MED DRAWER 7, Y5N ONE (09:41)
[2020-05-21] MEDS: CARVEDILOL 6.25 MG TABLET (FP) PO SCH ×2 (09:46→22:18)
[2020-05-21] MEDS: NIFEdipine E.R 60 MG TABLET PO SCH (09:46)
[2020-05-21] MEDS: CEFTRIAXONE 1 GM in DEXTROSE 5%-WATER - 50 ML IVPB SCH (09:47)
[2020-05-21] MEDS: PANTOPRAZOLE SODIUM 40 MG VIAL IVPUSH SCH ×2 (09:48→22:18)
[2020-05-21] MEDS: ACETAMINOPHEN 325 MG TABLET (FP) PO PRN (09:57)
[2020-05-21] MEDS ORDERED: INSULIN (NOVOLOG) ASPART 100 UNITS/ML 10ML VIAL ONE ×2 (10:59→17:55)
[2020-05-21] MEDS ORDERED: DEXTROSE 50%-WATER 25 GM/50 ML DISP.SYRIN ONE (15:36)
[2020-05-21] MEDS ORDERED: DEXTROSE 50%-WATER 25 GM/50 ML DISP.SYRIN IVPUSH ONE (15:40)
[2020-05-21] MEDS ORDERED: INSULIN (LEVEMIR) 100 UNITS/ML UNITS SQ ONE ×2 (17:36→17:56)
[2020-05-21] MEDS: LACTATED RINGERS SOLUTION 1,000 ML/1,000 ML INFUS.BAG IV SCH (18:02)
[2020-05-21] MEDS: hydrALAZINE HCL 25 MG TABLET (FP) PO SCH (22:18)
[2020-05-21] MEDS: HEPARIN NA (PORCINE) 5,000 UNITS/ML 1ML VIAL SQ SCH (22:18)
[2020-05-21] MEDS: ATORVASTATIN CA 40 MG TABLET (FP) PO SCH (22:18)
[2020-05-22] MEDS: HEPARIN NA (PORCINE) 5,000 UNITS/ML 1ML VIAL SQ SCH ×3 (06:17→22:33)
[2020-05-22] MEDS: INSULIN SLIDING SCALE (NOVOLOG) 1 VIAL SQ SCH ×3 (06:18→16:47)
[2020-05-22] MEDS: INSULIN (LEVEMIR) 100 UNITS/ML UNITS SQ SCH (06:18)
[2020-05-22] MEDS: ACETAMINOPHEN 325 MG TABLET (FP) PO PRN (07:54)
[2020-05-22] MEDS ORDERED: PT OWN MED DRAWER 7, Y5N ONE (09:19)
[2020-05-22] MEDS ORDERED: DEXTROSE 5%-WATER - 50 ML IVPB ONE (09:21)
[2020-05-22] MEDS ORDERED: cefTRIAXone SODIUM 1 GM VIAL ONE (09:21)
[2020-05-22] MEDS: hydrALAZINE HCL 25 MG TABLET (FP) PO SCH ×2 (09:26→22:33)
[2020-05-22] MEDS: CARVEDILOL 6.25 MG TABLET (FP) PO SCH ×2 (09:26→22:33)
[2020-05-22] MEDS: NIFEdipine E.R 60 MG TABLET PO SCH (09:26)
[2020-05-22] MEDS: CEFTRIAXONE 1 GM in DEXTROSE 5%-WATER - 50 ML IVPB SCH (09:26)
[2020-05-22 09:33] LABS: BASO % 0.3 % (0-2.0); EOS % 1.5 % (0-4.5); HEMATOCRIT 26.4 % (35.4-49); HEMOGLOBIN 8.8 GM/dL (11.7-16.9); LYMPH % 24.4 % (8-40); MCH 30.2 pg (25.7-33.7); MCHC 33.5 g/dl (32.0-35.9); MEAN CELL VOLUME 90.2 fl (80-96); MEAN PLT VOLUME 10.2 fl (7.5-11.1); MONO % 7.4 % (3.8-10.2); NEUT % 66.4 % (42.8-82.8); PLATELET COUNT 207 K/MM3 (134-434); RBC 2.92 M/mm3 (4.00-5.60); RDW 13.3 % (11.9-15.9); WHITE BLOOD COUNT 7.5 K/mm3 (4.0-10.0)
[2020-05-22 09:49] LABS: CALCIUM 7.7 mg/dL (8.5-10.1)
[2020-05-22 09:50] LABS: ALBUMIN 2.4 g/dl (3.4-5.0); BLOOD UREA NITROGEN 40.4 mg/dL (7-18); MAGNESIUM 2.3 mg/dL (1.8-2.4)
[2020-05-22 09:53] LABS: CREATININE 3.3 mg/dL (0.55-1.3)
[2020-05-22 09:54] LABS: BILIRUBIN,TOTAL 0.4 mg/dL (0.2-1); TOT PROT 5.1 g/dl (6.4-8.2)
[2020-05-22] MEDS ORDERED: PANTOPRAZOLE 40 MG TABLET PO SCH (10:00)
[2020-05-22] MEDS: LACTATED RINGERS SOLUTION 1,000 ML/1,000 ML INFUS.BAG IV SCH ×2 (11:47→16:47)
[2020-05-22] MEDS ORDERED: DEXTROSE 50%-WATER - 25 GM/50 ML VIAL IVPUSH PRN (15:37)
[2020-05-22] MEDS ORDERED: INSULIN (NOVOLOG) ASPART 100 UNITS/ML 10ML VIAL ONE (16:42)
[2020-05-22] MEDS: SIMETHICONE 80 MG TAB.CHEW (FP) PO SCH (22:33)
[2020-05-22] MEDS: ATORVASTATIN CA 40 MG TABLET (FP) PO SCH (22:33)
[2020-05-23] MEDS: HEPARIN NA (PORCINE) 5,000 UNITS/ML 1ML VIAL SQ SCH ×2 (06:07→13:52)
[2020-05-23] MEDS: SIMETHICONE 80 MG TAB.CHEW (FP) PO SCH ×2 (06:07→13:52)
[2020-05-23] MEDS: hydrALAZINE HCL 25 MG TABLET (FP) PO SCH ×2 (06:34→10:13)
[2020-05-23] MEDS: INSULIN (LEVEMIR) 100 UNITS/ML UNITS SQ SCH (06:34)
[2020-05-23] MEDS: INSULIN SLIDING SCALE (NOVOLOG) 1 VIAL SQ SCH ×3 (06:35→17:23)
[2020-05-23 08:49] LABS: BASO % 0.4 % (0-2.0); EOS % 1.6 % (0-4.5); HEMATOCRIT 25.2 % (35.4-49); HEMOGLOBIN 8.5 GM/dL (11.7-16.9); LYMPH % 31.2 % (8-40); MCH 30.5 pg (25.7-33.7); MCHC 33.7 g/dl (32.0-35.9); MEAN CELL VOLUME 90.6 fl (80-96); MEAN PLT VOLUME 10.2 fl (7.5-11.1); MONO % 8.5 % (3.8-10.2); NEUT % 58.3 % (42.8-82.8); PLATELET COUNT 198 K/MM3 (134-434); RBC 2.78 M/mm3 (4.00-5.60); RDW 13.2 % (11.9-15.9); WHITE BLOOD COUNT 7.3 K/mm3 (4.0-10.0)
[2020-05-23 08:59] LABS: CREATININE 2.9 mg/dL (0.55-1.3)
[2020-05-23 09:00] LABS: ALBUMIN 2.4 g/dl (3.4-5.0); BILIRUBIN,TOTAL 0.4 mg/dL (0.2-1); BLOOD UREA NITROGEN 35.6 mg/dL (7-18); CALCIUM 8.2 mg/dL (8.5-10.1)
[2020-05-23 09:01] LABS: TOT PROT 4.9 g/dl (6.4-8.2)
[2020-05-23] MEDS ORDERED: NIFEdipine E.R 60 MG TABLET PO SCH (10:00)
[2020-05-23] MEDS: CARVEDILOL 6.25 MG TABLET (FP) PO SCH (10:18)
[2020-05-23 16:18] VITALS: TEMP 97.3
[2020-05-23 17:09] VITALS: BP 131/80; PULSE 72
== END 2020-05-23 17:37 | disposition home or self-care (01) | DRG 48 ==
LOC: JER 18:32 → JERBED 05-18 00:16 → J8W 05-18 09:23
PROVIDERS: ADMIT Internal Medicine; ATTEND Internal Medicine
DX: E11.43 Type 2 diabetes mellitus with diabetic autonomic (poly)neuropathy (principal); K31.84 Gastroparesis; N18.9 Chronic kidney disease, unspecified; R11.15 Cyclical vomiting syndrome unrelated to migraine; I10 Essential (primary) hypertension; I50.32 Chronic diastolic (congestive) heart failure; D64.9 Anemia, unspecified; N17.9 Acute kidney failure, unspecified; I13.0 Hypertensive heart and chronic kidney disease with heart failure and stage 1 through stage 4 chronic kidney disease, or unspecified chronic kidney disease; N40.0 Benign prostatic hyperplasia without lower urinary tract symptoms; E87.6 Hypokalemia; K59.00 Constipation, unspecified; D72.829 Elevated white blood cell count, unspecified; E11.65 Type 2 diabetes mellitus with hyperglycemia; E86.0 Dehydration; E87.3 Alkalosis; I31.3 Pericardial effusion (noninflammatory)
CPT/HCPCS: 36415; 70450-TC; 71250-TC; 74176-TC; 80048; 80053; 80307; 82010; 82272; 82550; 82553; 82803; 82962; 83605; 83690; 83735; 83880; 84100; 84484; 85025; 85027; 93005; 93010; 93306-TC; 99285-25; C9803; J0131; J1644; U0003

== ENCOUNTER 2020-05-31 17:23 | Inpatient (IN) | payer OTHER ==
[2020-05-31 17:37] VITALS: BMI 26.2
[2020-05-31] MEDS ORDERED: METOCLOPRAMIDE HCL INJECTION 10 MG/2 ML VIAL IVPB ONE (18:01)
[2020-05-31] MEDS ORDERED: SODIUM CHLORIDE 0.9% 500 ML INFUS.BAG IV ONE (18:01)
[2020-05-31] MEDS ORDERED: ACETAMINOPHEN 1000 MG/100 ML VIAL (NON FORMULARY) IVPB ONE (18:01)
[2020-05-31] MEDS ORDERED: VALSARTAN 160 MG TABLET PO ONE (18:10)
[2020-05-31] MEDS ORDERED: CARVEDILOL 6.25 MG TABLET (FP) PO ONE (18:10)
[2020-05-31] MEDS ORDERED: NIFEdipine E.R. 30 MG TABLET PO SCH (18:15)
[2020-05-31] MEDS ORDERED: METOCLOPRAMIDE HCL INJECTION 10 MG/2 ML VIAL ONE (18:17)
[2020-05-31] MEDS ORDERED: ACETAMINOPHEN INJECTION 100 ML IVPB ONE (18:17)
[2020-05-31 18:29] LABS: BASO % 0.8 % (0-2.0); EOS % 0.4 % (0-4.5); HEMATOCRIT 29.6 % (35.4-49); HEMOGLOBIN 9.8 GM/dL (11.7-16.9); MEAN CELL VOLUME 90.7 fl (80-96); MEAN PLT VOLUME 8.8 fl (7.5-11.1); MONO % 4.3 % (3.8-10.2); NEUT % 84.5 % (42.8-82.8); PLATELET COUNT 292 K/MM3 (134-434); RBC 3.26 M/mm3 (4.00-5.60); RDW 13.8 % (11.9-15.9); WHITE BLOOD COUNT 16.8 K/mm3 (4.0-10.0)
[2020-05-31] MEDS ORDERED: NIFEdipine E.R. 30 MG TABLET ONE (18:41)
[2020-05-31 18:45] LABS: CHLORIDE 105 mmol/L (98-107); SODIUM 145 mmol/L (136-145)
[2020-05-31 18:47] LABS: ALBUMIN 2.9 g/dl (3.4-5.0)
[2020-05-31 18:48] LABS: ANION GAP 5 MMOL/L (8-16); CALCIUM 8.6 mg/dL (8.5-10.1); CO2 35 mmol/L (21-32); GLUCOSE,RANDOM 234 mg/dL (74-106); LIPASE 87 U/L (73-393)
[2020-05-31 18:51] LABS: CREATININE 3.4 mg/dL (0.55-1.3); SGOT/AST 31 U/L (15-37); SGPT/ALT 41 U/L (13-61)
[2020-05-31 18:53] LABS: BILIRUBIN,TOTAL 0.3 mg/dL (0.2-1); TOT PROT 6.2 g/dl (6.4-8.2)
[2020-05-31 18:54] LABS: ALK PHOS 118 U/L (45-117)
[2020-05-31] MEDS ORDERED: ACETAMINOPHEN 325 MG TABLET (FP) PO PRN (21:14)
[2020-05-31] MEDS ORDERED: SIMETHICONE 80 MG TAB.CHEW (FP) PO PRN (21:26)
[2020-05-31] MEDS ORDERED: hydrALAZINE HCL 20 MG/ML VIAL IVPUSH PRN (21:27)
[2020-05-31] MEDS ORDERED: SODIUM CHLORIDE 0.45% 1,000 ML IV SCH (21:30)
[2020-05-31] MEDS ORDERED: MORPHINE SULFATE 2 MG/ML VIAL ONE (21:34)
[2020-05-31] MEDS ORDERED: IRON SUCROSE INJECTION 200 MG in SODIUM CHLORIDE 90 ML IVPB ONE (21:38)
[2020-05-31] MEDS: MORPHINE SULFATE 2 MG/ML VIAL IVPUSH PRN (21:45)
[2020-05-31] MEDS: hydrALAZINE HCL 20 MG/ML VIAL IVPUSH PRN (21:45)
[2020-05-31] MEDS ORDERED: NIFEdipine E.R 60 MG TABLET PO SCH (22:00)
[2020-05-31] MEDS: CARVEDILOL 6.25 MG TABLET (FP) PO SCH (23:15)
[2020-05-31] MEDS: APIXABAN 5 MG TABLET PO SCH (23:15)
[2020-05-31] MEDS: INSULIN SLIDING SCALE (NOVOLOG) 1 VIAL SQ SCH (23:16)
[2020-06-01] MEDS: MORPHINE SULFATE 2 MG/ML VIAL IVPUSH PRN ×3 (01:22→16:58)
[2020-06-01] MEDS: PROCHLORPERAZINE INJECTION 10 MG/2 ML VIAL IVPB PRN ×3 (03:59→12:17)
[2020-06-01] MEDS: ACETAMINOPHEN 1000 MG/100 ML VIAL (NON FORMULARY) IVPB PRN ×2 (05:34→22:03)
[2020-06-01] MEDS: INSULIN SLIDING SCALE (NOVOLOG) 1 VIAL SQ SCH ×4 (07:37→22:02)
[2020-06-01 08:55] LABS: BASO % 0.4 % (0-2.0); EOS % 0.2 % (0-4.5); HEMATOCRIT 28.7 % (35.4-49); HEMOGLOBIN 9.5 GM/dL (11.7-16.9); LYMPH % 12.5 % (8-40); MCH 30.2 pg (25.7-33.7); MCHC 33.1 g/dl (32.0-35.9); MEAN CELL VOLUME 91.2 fl (80-96); MEAN PLT VOLUME 9.6 fl (7.5-11.1); MONO % 4.8 % (3.8-10.2); NEUT % 82.1 % (42.8-82.8); PLATELET COUNT 315 K/MM3 (134-434); RBC 3.15 M/mm3 (4.00-5.60); WHITE BLOOD COUNT 14.2 K/mm3 (4.0-10.0)
[2020-06-01 09:06] LABS: INR 1.11 (0.83-1.09); PROTHROMBIN TIME (PATIENT) 13.6 SEC (9.7-13.0)
[2020-06-01 09:15] LABS: POTASSIUM 3.4 mmol/L (3.5-5.1)
[2020-06-01 09:22] LABS: ALBUMIN 2.7 g/dl (3.4-5.0); BLOOD UREA NITROGEN 27.4 mg/dL (7-18); CALCIUM 8.3 mg/dL (8.5-10.1)
[2020-06-01 09:25] LABS: CREATININE 3.2 mg/dL (0.55-1.3); PHOSPHOROUS 4.4 mg/dL (2.5-4.9)
[2020-06-01 09:27] LABS: BILIRUBIN,TOTAL 0.4 mg/dL (0.2-1); TOT PROT 5.6 g/dl (6.4-8.2)
[2020-06-01] MEDS ORDERED: SODIUM CHLORIDE 0.45% 1,000 ML IV SCH (09:31)
[2020-06-01] MEDS ORDERED: PNEUMOCOCCAL 23 VACCINE 0.5 ML VIAL IM ONE (10:00)
[2020-06-01] MEDS ORDERED: VALSARTAN 160 MG TABLET PO SCH (10:00)
[2020-06-01] MEDS: PANTOPRAZOLE SODIUM 40 MG VIAL IVPUSH SCH (10:14)
[2020-06-01] MEDS: ATORVASTATIN CA 40 MG TABLET (FP) PO SCH (10:19)
[2020-06-01] MEDS: NIFEdipine E.R. 30 MG TABLET PO SCH ×2 (10:19→22:02)
[2020-06-01] MEDS: APIXABAN 5 MG TABLET PO SCH ×2 (10:19→22:02)
[2020-06-01] MEDS: CARVEDILOL 6.25 MG TABLET (FP) PO SCH ×2 (10:23→22:02)
[2020-06-01] MEDS: SODIUM CHLORIDE 1,000 ML IV SCH (12:20)
[2020-06-01 13:32] LABS: EPI CELLS 29 /uL (0-25.1); HYALINE CASTS 4 /uL (0-3.1); PH,URINE 7.5 (5.0-8.0); URINE APPEARANCE CLEAR; URINE BACTERIA 20 /uL (0-1359); URINE BILIRUBIN NEGATIVE (NEGATIVE); URINE COLOR YELLOW; URINE GLUCOSE (UA) 1+ (NEGATIVE); URINE KETONE TRACE (NEGATIVE); URINE LEUK ESTERASE NEGATIVE (NEGATIVE); URINE NITRITE NEGATIVE (NEGATIVE); URINE PROTEIN 4+ (NEGATIVE); URINE RBC 19 /uL (0-23.9); URINE UROBILINOGEN 0.2 mg/dL (0.2-1.0); URINE WBC 8 /uL (0-25.8)
[2020-06-01 13:38] LABS: COCAINE, UR NEGATIVE ng/ml (CUTOFF=300); PHENCYCLIDINE,URINE NEGATIVE ng/ml (CUTOFF=25); URINE BENZODIAZEPINES NEGATIVE ng/ml (CUTOFF=200)
[2020-06-01 13:46] LABS: METHADONE, UR NEGATIVE ng/ml (CUTOFF=300); URINE AMPHETAMINES NEGATIVE ng/ml (CUTOFF=500); URINE BARBITURATES NEGATIVE ng/ml (CUTOFF=200)
[2020-06-01 13:49] LABS: OPIATES, URI POSITIVE ng/ml (CUTOFF=300)
[2020-06-01] MEDS: POTASSIUM CHLORIDE 10 MEQ in SODIUM CHLORIDE 0.45% 1,000 ML IV SCH (16:57)
[2020-06-01] MEDS: METOCLOPRAMIDE HCL INJECTION 10 MG/2 ML VIAL IVPUSH SCH (17:15)
[2020-06-02] MEDS: POTASSIUM CHLORIDE 10 MEQ in SODIUM CHLORIDE 0.45% 1,000 ML IV SCH ×2 (01:05→09:32)
[2020-06-02] MEDS: MORPHINE SULFATE 2 MG/ML VIAL IVPUSH PRN ×5 (01:18→23:50)
[2020-06-02] MEDS: hydrALAZINE HCL 20 MG/ML VIAL IVPUSH PRN (05:59)
[2020-06-02] MEDS: METOCLOPRAMIDE HCL INJECTION 10 MG/2 ML VIAL IVPUSH SCH ×3 (06:01→17:16)
[2020-06-02] MEDS: INSULIN SLIDING SCALE (NOVOLOG) 1 VIAL SQ SCH ×4 (06:02→22:46)
[2020-06-02] MEDS: ATORVASTATIN CA 40 MG TABLET (FP) PO SCH (09:31)
[2020-06-02] MEDS: NIFEdipine E.R. 30 MG TABLET PO SCH ×2 (09:31→22:42)
[2020-06-02] MEDS: PANTOPRAZOLE SODIUM 40 MG VIAL IVPUSH SCH (09:31)
[2020-06-02] MEDS: APIXABAN 5 MG TABLET PO SCH ×2 (09:31→22:41)
[2020-06-02] MEDS ORDERED: PNEUMOC 13-VAL CONJ-DIP CRM/PF 0.5 ML DISP.SYRIN IM ONE (10:00)
[2020-06-02] MEDS ORDERED: FLU VACCINE (FLULAVAL) PF 60 MCG/0.5 ML SYRINGE 2020-2021 IM ONE (10:00)
[2020-06-02 11:29] LABS: BASO % 0.4 % (0-2.0); EOS % 0.2 % (0-4.5); HEMATOCRIT 31.2 % (35.4-49); HEMOGLOBIN 10.3 GM/dL (11.7-16.9); LYMPH % 19.3 % (8-40); MCH 30.1 pg (25.7-33.7); MEAN PLT VOLUME 9.2 fl (7.5-11.1); MONO % 5.4 % (3.8-10.2); NEUT % 74.7 % (42.8-82.8); PLATELET COUNT 300 K/MM3 (134-434); RBC 3.43 M/mm3 (4.00-5.60); RDW 14.1 % (11.9-15.9); WHITE BLOOD COUNT 11.6 K/mm3 (4.0-10.0)
[2020-06-02] MEDS: CARVEDILOL 6.25 MG TABLET (FP) PO SCH ×2 (11:36→22:42)
[2020-06-02 12:05] LABS: POTASSIUM 3.2 mmol/L (3.5-5.1)
[2020-06-02 12:26] LABS: BLOOD UREA NITROGEN 36.1 mg/dL (7-18); CALCIUM 8.4 mg/dL (8.5-10.1); MAGNESIUM 1.9 mg/dL (1.8-2.4)
[2020-06-02 12:29] LABS: ALBUMIN 2.7 g/dl (3.4-5.0); PHOSPHOROUS 4.6 mg/dL (2.5-4.9)
[2020-06-02 12:30] LABS: BILIRUBIN,TOTAL 0.3 mg/dL (0.2-1); CREATININE 3.4 mg/dL (0.55-1.3); TOT PROT 5.6 g/dl (6.4-8.2)
[2020-06-02] MEDS: POTASSIUM CHLORIDE 20 MEQ in SODIUM CHLORIDE 0.45% 1,000 ML IV SCH (15:16)
[2020-06-02] MEDS: KCL 10 MEQ IVPB 10 MEQ/100 ML INFUS.BAG IVPB SCH ×2 (17:16→22:53)
[2020-06-03] MEDS: POTASSIUM CHLORIDE 20 MEQ in SODIUM CHLORIDE 0.45% 1,000 ML IV SCH ×3 (01:39→18:28)
[2020-06-03] MEDS: SODIUM CHLORIDE 1,000 ML IV SCH (02:41)
[2020-06-03] MEDS: MORPHINE SULFATE 2 MG/ML VIAL IVPUSH PRN ×5 (04:08→20:41)
[2020-06-03] MEDS: METOCLOPRAMIDE HCL INJECTION 10 MG/2 ML VIAL IVPUSH SCH ×3 (06:00→16:47)
[2020-06-03] MEDS: INSULIN SLIDING SCALE (NOVOLOG) 1 VIAL SQ SCH ×4 (06:06→21:29)
[2020-06-03 08:28] LABS: BASO % 0.4 % (0-2.0); EOS % 0.8 % (0-4.5); HEMATOCRIT 28.7 % (35.4-49); HEMOGLOBIN 9.7 GM/dL (11.7-16.9); LYMPH % 22.7 % (8-40); MCH 30.6 pg (25.7-33.7); MCHC 33.9 g/dl (32.0-35.9); MEAN CELL VOLUME 90.2 fl (80-96); MEAN PLT VOLUME 9.1 fl (7.5-11.1); MONO % 5.7 % (3.8-10.2); NEUT % 70.4 % (42.8-82.8); PLATELET COUNT 269 K/MM3 (134-434); RBC 3.19 M/mm3 (4.00-5.60); RDW 13.5 % (11.9-15.9); WHITE BLOOD COUNT 10.8 K/mm3 (4.0-10.0)
[2020-06-03 08:52] LABS: POTASSIUM 3.4 mmol/L (3.5-5.1)
[2020-06-03 09:01] LABS: CALCIUM 8.2 mg/dL (8.5-10.1)
[2020-06-03 09:02] LABS: ALBUMIN 2.6 g/dl (3.4-5.0); BLOOD UREA NITROGEN 36.6 mg/dL (7-18); MAGNESIUM 1.9 mg/dL (1.8-2.4)
[2020-06-03 09:06] LABS: BILIRUBIN,TOTAL 0.7 mg/dL (0.2-1); CREATININE 3.1 mg/dL (0.55-1.3); TOT PROT 5.2 g/dl (6.4-8.2)
[2020-06-03] MEDS: APIXABAN 5 MG TABLET PO SCH ×2 (09:14→21:30)
[2020-06-03] MEDS: NIFEdipine E.R. 30 MG TABLET PO SCH ×2 (09:14→21:29)
[2020-06-03] MEDS: ATORVASTATIN CA 40 MG TABLET (FP) PO SCH (09:14)
[2020-06-03] MEDS: PANTOPRAZOLE SODIUM 40 MG VIAL IVPUSH SCH (09:14)
[2020-06-03] MEDS: CARVEDILOL 6.25 MG TABLET (FP) PO SCH ×2 (09:16→21:29)
[2020-06-03] MEDS: KCL 10 MEQ IVPB 10 MEQ/100 ML INFUS.BAG IVPB SCH ×3 (13:28→16:42)
[2020-06-03] MEDS: SIMETHICONE 80 MG TAB.CHEW (FP) PO SCH ×3 (15:49→21:30)
[2020-06-03] MEDS: LIPASE/PROTEASE/AMYLASE 36,000 UNIT CAPSULE PO SCH (16:44)
[2020-06-03] MEDS ORDERED: INSULIN (NOVOLOG) ASPART 100 UNITS/ML 10ML VIAL ONE (18:20)
[2020-06-04] MEDS: MORPHINE SULFATE 2 MG/ML VIAL IVPUSH PRN (02:31)
[2020-06-04] MEDS: POTASSIUM CHLORIDE 20 MEQ in SODIUM CHLORIDE 0.45% 1,000 ML IV SCH ×3 (02:36→15:08)
[2020-06-04] MEDS: METOCLOPRAMIDE HCL INJECTION 10 MG/2 ML VIAL IVPUSH SCH ×3 (06:01→17:48)
[2020-06-04] MEDS: INSULIN SLIDING SCALE (NOVOLOG) 1 VIAL SQ SCH ×4 (06:01→21:56)
[2020-06-04 07:01] LABS: POTASSIUM 3.7 mmol/L (3.5-5.1)
[2020-06-04 07:04] LABS: CALCIUM 7.7 mg/dL (8.5-10.1)
[2020-06-04 07:06] LABS: ALBUMIN 2.3 g/dl (3.4-5.0); MAGNESIUM 1.5 mg/dL (1.8-2.4)
[2020-06-04 07:08] LABS: CREATININE 2.9 mg/dL (0.55-1.3); PHOSPHOROUS 3.6 mg/dL (2.5-4.9)
[2020-06-04 07:09] LABS: BILIRUBIN,TOTAL 0.8 mg/dL (0.2-1); TOT PROT 4.9 g/dl (6.4-8.2)
[2020-06-04 07:11] LABS: BLOOD UREA NITROGEN 31.5 mg/dL (7-18)
[2020-06-04 07:16] LABS: BASO % 0.2 % (0-2.0); EOS % 1.2 % (0-4.5); HEMATOCRIT 25.1 % (35.4-49); HEMOGLOBIN 8.5 GM/dL (11.7-16.9); LYMPH % 26.3 % (8-40); MCH 30.4 pg (25.7-33.7); MCHC 33.7 g/dl (32.0-35.9); MEAN CELL VOLUME 90.3 fl (80-96); MONO % 8.9 % (3.8-10.2); NEUT % 63.4 % (42.8-82.8); PLATELET COUNT 223 K/MM3 (134-434); RBC 2.78 M/mm3 (4.00-5.60); RDW 13.6 % (11.9-15.9); WHITE BLOOD COUNT 10.2 K/mm3 (4.0-10.0)
[2020-06-04] MEDS: HYDROmorphone HCl 2 MG/ML VIAL IVPB PRN ×3 (09:00→20:09)
[2020-06-04] MEDS ORDERED: MAGNESIUM 2GM/50ML STERILE WATER IVPB IVPB ONE (09:00)
[2020-06-04] MEDS: LIPASE/PROTEASE/AMYLASE 36,000 UNIT CAPSULE PO SCH ×3 (10:00→17:50)
[2020-06-04] MEDS: CARVEDILOL 6.25 MG TABLET (FP) PO SCH ×2 (11:39→21:56)
[2020-06-04] MEDS: SIMETHICONE 80 MG TAB.CHEW (FP) PO SCH ×4 (11:39→21:56)
[2020-06-04] MEDS: ATORVASTATIN CA 40 MG TABLET (FP) PO SCH (11:39)
[2020-06-04] MEDS: APIXABAN 5 MG TABLET PO SCH ×2 (11:39→21:56)
[2020-06-04] MEDS ORDERED: PT OWN MED DRAWER 7, Y5N ONE (11:41)
[2020-06-04] MEDS: NIFEdipine E.R. 30 MG TABLET PO SCH ×2 (11:47→21:55)
[2020-06-04] MEDS: PANTOPRAZOLE SODIUM 40 MG VIAL IVPUSH SCH (11:48)
[2020-06-04] MEDS ORDERED: INSULIN (NOVOLOG) ASPART 100 UNITS/ML 10ML VIAL ONE (21:45)
[2020-06-05] MEDS: POTASSIUM CHLORIDE 20 MEQ in SODIUM CHLORIDE 0.45% 1,000 ML IV SCH ×5 (00:53→17:54)
[2020-06-05] MEDS: HYDROmorphone HCl 2 MG/ML VIAL IVPB PRN ×4 (00:57→19:47)
[2020-06-05] MEDS: METOCLOPRAMIDE HCL INJECTION 10 MG/2 ML VIAL IVPUSH SCH ×3 (06:52→17:47)
[2020-06-05] MEDS: INSULIN SLIDING SCALE (NOVOLOG) 1 VIAL SQ SCH ×4 (07:08→21:39)
[2020-06-05 08:23] LABS: BASO % 0.3 % (0-2.0); EOS % 1.7 % (0-4.5); HEMATOCRIT 23.9 % (35.4-49); HEMOGLOBIN 8.2 GM/dL (11.7-16.9); LYMPH % 30.9 % (8-40); MCH 30.7 pg (25.7-33.7); MCHC 34.3 g/dl (32.0-35.9); MEAN CELL VOLUME 89.6 fl (80-96); MEAN PLT VOLUME 8.6 fl (7.5-11.1); MONO % 9.8 % (3.8-10.2); NEUT % 57.3 % (42.8-82.8); PLATELET COUNT 213 K/MM3 (134-434); RBC 2.67 M/mm3 (4.00-5.60); RDW 13.5 % (11.9-15.9); WHITE BLOOD COUNT 6.4 K/mm3 (4.0-10.0)
[2020-06-05 08:39] LABS: POTASSIUM 3.9 mmol/L (3.5-5.1)
[2020-06-05 08:42] LABS: ALBUMIN 2.3 g/dl (3.4-5.0); BLOOD UREA NITROGEN 30.9 mg/dL (7-18)
[2020-06-05 08:45] LABS: CREATININE 2.9 mg/dL (0.55-1.3); PHOSPHOROUS 3.6 mg/dL (2.5-4.9)
[2020-06-05 08:46] LABS: BILIRUBIN,TOTAL 0.1 mg/dL (0.2-1); TOT PROT 4.8 g/dl (6.4-8.2)
[2020-06-05] MEDS: LIPASE/PROTEASE/AMYLASE 36,000 UNIT CAPSULE PO SCH ×3 (09:00→17:48)
[2020-06-05] MEDS: PANTOPRAZOLE SODIUM 40 MG VIAL IVPUSH SCH (10:22)
[2020-06-05] MEDS: CARVEDILOL 6.25 MG TABLET (FP) PO SCH ×2 (10:23→21:39)
[2020-06-05] MEDS: APIXABAN 5 MG TABLET PO SCH ×2 (10:23→21:39)
[2020-06-05] MEDS: ATORVASTATIN CA 40 MG TABLET (FP) PO SCH (10:23)
[2020-06-05] MEDS: SIMETHICONE 80 MG TAB.CHEW (FP) PO SCH ×4 (10:25→21:39)
[2020-06-05] MEDS: NIFEdipine E.R. 30 MG TABLET PO SCH ×2 (10:31→21:40)
[2020-06-05] MEDS ORDERED: POTASSIUM CHLORIDE 20 MEQ in SODIUM CHLORIDE 0.45% 1,000 ML IV SCH (13:30)
[2020-06-06] MEDS: HYDROmorphone HCl 2 MG/ML VIAL IVPB PRN ×2 (02:25→09:47)
[2020-06-06] MEDS: INSULIN SLIDING SCALE (NOVOLOG) 1 VIAL SQ SCH ×2 (06:53→11:33)
[2020-06-06] MEDS: METOCLOPRAMIDE HCL INJECTION 10 MG/2 ML VIAL IVPUSH SCH ×2 (06:57→11:33)
[2020-06-06] MEDS: LIPASE/PROTEASE/AMYLASE 36,000 UNIT CAPSULE PO SCH ×2 (09:00→11:55)
[2020-06-06 09:36] VITALS: BP 150/74; PULSE 75; TEMP 98.5
[2020-06-06] MEDS: CARVEDILOL 6.25 MG TABLET (FP) PO SCH (09:36)
[2020-06-06] MEDS: APIXABAN 5 MG TABLET PO SCH (09:36)
[2020-06-06] MEDS: ATORVASTATIN CA 40 MG TABLET (FP) PO SCH (09:36)
[2020-06-06] MEDS: SIMETHICONE 80 MG TAB.CHEW (FP) PO SCH (09:39)
[2020-06-06] MEDS: PANTOPRAZOLE SODIUM 40 MG VIAL IVPUSH SCH (09:53)
[2020-06-06] MEDS: POTASSIUM CHLORIDE 20 MEQ in SODIUM CHLORIDE 0.45% 1,000 ML IV SCH (09:53)
[2020-06-06] MEDS: NIFEdipine E.R. 30 MG TABLET PO SCH (09:59)
== END 2020-06-06 14:55 | disposition home or self-care (01) | DRG 48 ==
LOC: JER 17:23 → JERBED 19:16 → J5WEST-2 06-01 00:46 → J7W 06-03 12:14
PROVIDERS: ADMIT Internal Medicine; ATTEND Internal Medicine
DX: E11.43 Type 2 diabetes mellitus with diabetic autonomic (poly)neuropathy (principal); K31.84 Gastroparesis; I13.0 Hypertensive heart and chronic kidney disease with heart failure and stage 1 through stage 4 chronic kidney disease, or unspecified chronic kidney disease; E11.22 Type 2 diabetes mellitus with diabetic chronic kidney disease; N18.9 Chronic kidney disease, unspecified; I50.32 Chronic diastolic (congestive) heart failure; E78.5 Hyperlipidemia, unspecified; N17.9 Acute kidney failure, unspecified; D72.829 Elevated white blood cell count, unspecified; D64.1 Secondary sideroblastic anemia due to disease; D63.1 Anemia in chronic kidney disease; R11.2 Nausea with vomiting, unspecified; E87.6 Hypokalemia; J44.9 Chronic obstructive pulmonary disease, unspecified; R94.31 Abnormal electrocardiogram [ECG] [EKG]; E11.65 Type 2 diabetes mellitus with hyperglycemia; M62.82 Rhabdomyolysis; R10.13 Epigastric pain; K59.09 Other constipation; F41.8 Other specified anxiety disorders; K22.6 Gastro-esophageal laceration-hemorrhage syndrome; Z86.711 Personal history of pulmonary embolism; Z89.422 Acquired absence of other left toe(s); Z86.718 Personal history of other venous thrombosis and embolism; Z89.421 Acquired absence of other right toe(s)
CPT/HCPCS: 36415; 71045-TC-FY; 80053; 80307; 81003; 82272; 82550; 82553; 82728; 82962; 83540; 83550; 83690; 83735; 84100; 84484; 85025; 85610; 85730; 87086; 90732; 93005; 93010; 97116-GP; 97161-GP; 99285-25; C9803; G0008; G0009; J0131; J1756; Q2036; U0003

== ENCOUNTER 2020-06-12 18:53 | Inpatient (IN) | payer OTHER ==
[2020-06-12] MEDS ORDERED: morphine CARPU-JECT 4 MG/1 ML DISP.SYRIN IVPUSH ONE (19:33)
[2020-06-12] MEDS ORDERED: ONDANSETRON 4 MG/2 ML VIAL IVPUSH ONE (19:33)
[2020-06-12] MEDS ORDERED: morphine SULFATE 4 MG/ML VIAL ONE (19:50)
[2020-06-12] MEDS ORDERED: ONDANSETRON 4 MG/2 ML VIAL ONE (19:50)
[2020-06-12 21:02] LABS: BASO % 0.2 % (0-2.0); EOS % 0.7 % (0-4.5); HEMATOCRIT 31.2 % (35.4-49); HEMOGLOBIN 10.2 GM/dL (11.7-16.9); INR 1.25 (0.83-1.09); LYMPH % 16.5 % (8-40); MCH 29.7 pg (25.7-33.7); MCHC 32.7 g/dl (32.0-35.9); MEAN CELL VOLUME 90.8 fl (80-96); MEAN PLT VOLUME 9.5 fl (7.5-11.1); MONO % 9.8 % (3.8-10.2); NEUT % 72.8 % (42.8-82.8); PLATELET COUNT 269 K/MM3 (134-434); PROTHROMBIN TIME (PATIENT) 15.3 SEC (9.7-13.0); RBC 3.44 M/mm3 (4.00-5.60); RDW 13.9 % (11.9-15.9); WHITE BLOOD COUNT 12.5 K/mm3 (4.0-10.0)
[2020-06-12 21:05] LABS: ACTIVATED PTT 31.4 SECONDS (25.2-36.5)
[2020-06-12 21:19] LABS: CHLORIDE 94 mmol/L (98-107); SODIUM 147 mmol/L (136-145)
[2020-06-12 21:22] LABS: ALBUMIN 2.4 g/dl (3.4-5.0); BLOOD UREA NITROGEN 45.7 mg/dL (7-18); GLUCOSE,RANDOM 192 mg/dL (74-106)
[2020-06-12 21:25] LABS: CREATININE 5.3 mg/dL (0.55-1.3); SGOT/AST 23 U/L (15-37); SGPT/ALT 16 U/L (13-61)
[2020-06-12 21:26] LABS: BILIRUBIN,TOTAL 0.3 mg/dL (0.2-1); TOT PROT 5.7 g/dl (6.4-8.2)
[2020-06-12 21:28] LABS: ALK PHOS 111 U/L (45-117)
[2020-06-12] MEDS ORDERED: SODIUM CHLORIDE 0.9% 500 ML INFUS.BAG IV ONE (21:35)
[2020-06-12] MEDS ORDERED: LACTATED RINGERS SOLUTION 1000 ML INFUS.BAG IV ONE (21:45)
[2020-06-12 22:11] LABS: ANION GAP 9 MMOL/L (8-16); CO2 > 45 mmol/L (21-32)
[2020-06-12 22:14] LABS: POTASSIUM 2.9 mmol/L (3.5-5.1)
[2020-06-12] MEDS ORDERED: FAMOTIDINE 20 MG/50 ML IVPB 20 MG/50 ML MG IVPB ONE ×2 (22:16→22:32)
[2020-06-12] MEDS ORDERED: POTASSIUM CHLORIDE ORAL LIQUID 20 MEQ/15 ML PO ONE (22:17)
[2020-06-12] MEDS ORDERED: POTASSIUM CHLORIDE ORAL LIQUID 20 MEQ/15 ML ONE (22:32)
[2020-06-12] MEDS ORDERED: MAGNESIUM SULF 50% (8.12 MEQ/2 ML-1 GM VIAL) IVPB ONE (22:42)
[2020-06-12] MEDS ORDERED: morphine CARPU-JECT 2 MG/1 ML DISP.SYRIN IVPUSH ONE (22:43)
[2020-06-12 22:54] LABS: VENOUS BASE EXCESS 17.7 mmol/L (-2-2); VENOUS O2 SATURATION 77.2 % (70-80); VENOUS PCO2 61.6 mmHg (38-52); VENOUS PH 7.471 (7.310-7.410)
[2020-06-12] MEDS ORDERED: MORPHINE SULFATE 2 MG/ML VIAL ONE (22:54)
[2020-06-12] MEDS ORDERED: MAGNESIUM SULFATE IN WATER 2 GM/50 ML IVPB IVPB ONE (22:54)
[2020-06-13] MEDS ORDERED: MAG HYDROX/AL HYDROX/SIMETH 30 ML UNIT-DOSE CUP PO ONE (01:37)
[2020-06-13] MEDS ORDERED: MAG HYDROX/AL HYDROX/SIMETH 30 ML UNIT-DOSE CUP ONE (01:39)
[2020-06-13 02:13] LABS: LIPASE 127 U/L (73-393)
[2020-06-13] MEDS ORDERED: ACETAMINOPHEN 1000 MG/100 ML VIAL (NON FORMULARY) IVPB ONE (02:18)
[2020-06-13 02:53] LABS: ALBUMIN 2.2 g/dl (3.4-5.0); BILIRUBIN,TOTAL 0.3 mg/dL (0.2-1); BLOOD UREA NITROGEN 44.2 mg/dL (7-18); CALCIUM 7.4 mg/dL (8.5-10.1); CREATININE 5.1 mg/dL (0.55-1.3); TOT PROT 5.2 g/dl (6.4-8.2)
[2020-06-13] MEDS ORDERED: KCL 10 MEQ IVPB 10 MEQ/100 ML INFUS.BAG IVPB ONE ×6 (02:58→19:48)
[2020-06-13 03:02] LABS: POTASSIUM 2.8 mmol/L (3.5-5.1)
[2020-06-13] MEDS: KCL 10 MEQ IVPB 10 MEQ/100 ML INFUS.BAG IVPB SCH ×6 (03:09→20:13)
[2020-06-13 03:42] LABS: MAGNESIUM 2.4 mg/dL (1.8-2.4)
[2020-06-13 03:45] LABS: PHOSPHOROUS 5.2 mg/dL (2.5-4.9)
[2020-06-13] MEDS: SODIUM CHLORIDE 1,000 ML IV SCH (04:21)
[2020-06-13] MEDS ORDERED: PROCHLORPERAZINE INJECTION 10 MG/2 ML VIAL IVPB PRN (04:24)
[2020-06-13] MEDS ORDERED: ACETAMINOPHEN 1000 MG/100 ML VIAL (NON FORMULARY) IVPB PRN (04:41)
[2020-06-13 06:30] LABS: BASO % 0.2 % (0-2.0); HEMATOCRIT 29.2 % (35.4-49); HEMOGLOBIN 9.7 GM/dL (11.7-16.9); LYMPH % 19.3 % (8-40); MCHC 33.2 g/dl (32.0-35.9); MEAN CELL VOLUME 90.6 fl (80-96); MEAN PLT VOLUME 9.5 fl (7.5-11.1); MONO % 9.4 % (3.8-10.2); NEUT % 70.1 % (42.8-82.8); PLATELET COUNT 250 K/MM3 (134-434); RBC 3.22 M/mm3 (4.00-5.60); RDW 14.2 % (11.9-15.9); WHITE BLOOD COUNT 11.6 K/mm3 (4.0-10.0)
[2020-06-13 06:59] LABS: POTASSIUM 3.2 mmol/L (3.5-5.1)
[2020-06-13] MEDS ORDERED: INSULIN SLIDING SCALE (NOVOLOG) 1 VIAL SQ SCH (07:00)
[2020-06-13 07:01] LABS: CALCIUM 7.5 mg/dL (8.5-10.1)
[2020-06-13 07:02] LABS: ALBUMIN 2.2 g/dl (3.4-5.0); BLOOD UREA NITROGEN 44.4 mg/dL (7-18); MAGNESIUM 2.4 mg/dL (1.8-2.4)
[2020-06-13 07:05] LABS: CREATININE 5.1 mg/dL (0.55-1.3); PHOSPHOROUS 5.2 mg/dL (2.5-4.9)
[2020-06-13 07:07] LABS: BILIRUBIN,TOTAL 0.3 mg/dL (0.2-1); TOT PROT 5.2 g/dl (6.4-8.2)
[2020-06-13] MEDS ORDERED: MORPHINE SULFATE 2 MG/ML VIAL ONE ×2 (08:46→13:35)
[2020-06-13] MEDS: MORPHINE SULFATE 2 MG/ML VIAL IVPUSH PRN ×2 (08:55→13:42)
[2020-06-13] MEDS: INSULIN SLIDING SCALE (NOVOLOG) 1 VIAL SQ SCH ×4 (09:04→21:52)
[2020-06-13] MEDS ORDERED: PT OWN MED DRAWER 7, Y5N ONE ×2 (09:49→15:03)
[2020-06-13] MEDS ORDERED: APIXABAN 5 MG TABLET ONE ×2 (09:50→21:42)
[2020-06-13] MEDS ORDERED: PANTOPRAZOLE SODIUM 40 MG VIAL ONE (09:50)
[2020-06-13] MEDS: SIMETHICONE 80 MG TAB.CHEW (FP) PO SCH ×5 (11:00→21:39)
[2020-06-13] MEDS: APIXABAN 5 MG TABLET PO SCH ×2 (11:00→21:51)
[2020-06-13] MEDS: PANTOPRAZOLE SODIUM 40 MG VIAL IVPUSH SCH (11:00)
[2020-06-13 14:07] LABS: EPI CELLS 30 /uL (0-25.1); HYALINE CASTS 4 /uL (0-3.1); PH,URINE 8.5 (5.0-8.0); URINE APPEARANCE CLEAR; URINE BACTERIA 11 /uL (0-1359); URINE BILIRUBIN NEGATIVE (NEGATIVE); URINE COLOR YELLOW; URINE GLUCOSE (UA) TRACE (NEGATIVE); URINE KETONE NEGATIVE (NEGATIVE); URINE LEUK ESTERASE NEGATIVE (NEGATIVE); URINE NITRITE NEGATIVE (NEGATIVE); URINE PROTEIN 4+ (NEGATIVE); URINE RBC 17 /uL (0-23.9); URINE UROBILINOGEN 0.2 mg/dL (0.2-1.0); URINE WBC 7 /uL (0-25.8)
[2020-06-13] MEDS ORDERED: ACETAMINOPHEN INJECTION 100 ML IVPB ONE (20:19)
[2020-06-13] MEDS: POLYETHYLENE GLYCOL 3350 119 GM BTL PO SCH (21:51)
[2020-06-14] MEDS ORDERED: MORPHINE SULFATE 2 MG/ML VIAL ONE ×2 (01:05→11:06)
[2020-06-14] MEDS: MORPHINE SULFATE 2 MG/ML VIAL IVPUSH PRN ×2 (01:10→11:02)
[2020-06-14] MEDS: SODIUM CHLORIDE 1,000 ML IV SCH (04:48)
[2020-06-14] MEDS: INSULIN SLIDING SCALE (NOVOLOG) 1 VIAL SQ SCH ×4 (07:57→21:12)
[2020-06-14 08:00] LABS: HEMATOCRIT 26.6 % (35.4-49); HEMOGLOBIN 9.1 GM/dL (11.7-16.9); MCH 30.8 pg (25.7-33.7); MEAN CELL VOLUME 90.5 fl (80-96); MEAN PLT VOLUME 9.3 fl (7.5-11.1); PLATELET COUNT 252 K/MM3 (134-434); RBC 2.95 M/mm3 (4.00-5.60); RDW 13.7 % (11.9-15.9); RETICULOCYTES 1.36 % (0.5-1.5); WHITE BLOOD COUNT 10.8 K/mm3 (4.0-10.0)
[2020-06-14 08:33] LABS: CALCIUM 7.6 mg/dL (8.5-10.1)
[2020-06-14 08:34] LABS: BLOOD UREA NITROGEN 46.3 mg/dL (7-18)
[2020-06-14 08:37] LABS: CREATININE 4.9 mg/dL (0.55-1.3)
[2020-06-14 09:11] LABS: POTASSIUM 2.9 mmol/L (3.5-5.1)
[2020-06-14] MEDS: PANTOPRAZOLE SODIUM 40 MG VIAL IVPUSH SCH (10:00)
[2020-06-14] MEDS: POLYETHYLENE GLYCOL 3350 119 GM BTL PO SCH ×2 (11:00→21:16)
[2020-06-14] MEDS: APIXABAN 5 MG TABLET PO SCH ×2 (11:00→21:11)
[2020-06-14] MEDS: SIMETHICONE 80 MG TAB.CHEW (FP) PO SCH ×4 (11:00→21:11)
[2020-06-14] MEDS ORDERED: APIXABAN 5 MG TABLET ONE (11:05)
[2020-06-14 12:41] VITALS: BMI 23.2
[2020-06-14] MEDS: KCL 10 MEQ IVPB 10 MEQ/100 ML INFUS.BAG IVPB SCH ×3 (12:53→17:02)
[2020-06-14] MEDS: ACETAMINOPHEN 1000 MG/100 ML VIAL (NON FORMULARY) IVPB PRN (20:11)
[2020-06-15] MEDS: ACETAMINOPHEN 1000 MG/100 ML VIAL (NON FORMULARY) IVPB PRN ×2 (03:10→09:40)
[2020-06-15] MEDS: SODIUM CHLORIDE 1,000 ML IV SCH (04:11)
[2020-06-15] MEDS: INSULIN SLIDING SCALE (NOVOLOG) 1 VIAL SQ SCH ×4 (08:17→21:19)
[2020-06-15] MEDS: APIXABAN 5 MG TABLET PO SCH ×2 (09:36→21:18)
[2020-06-15] MEDS: SIMETHICONE 80 MG TAB.CHEW (FP) PO SCH ×4 (09:36→21:19)
[2020-06-15] MEDS: POLYETHYLENE GLYCOL 3350 119 GM BTL PO SCH ×2 (09:37→21:19)
[2020-06-15] MEDS: PANTOPRAZOLE SODIUM 40 MG VIAL IVPUSH SCH (09:37)
[2020-06-15 09:39] LABS: ALBUMIN 2.2 g/dl (3.4-5.0); BILIRUBIN,TOTAL 0.6 mg/dl (0.2-1); CALCIUM 7.6 mg/dl (8.5-10); CREATININE 4.1 mg/dl (0.55-1.3); MAGNESIUM 1.8 mg/dL (1.8-2.4); TOT PROT 4.3 g/dl (6.4-8.2)
[2020-06-15 09:43] LABS: POTASSIUM 2.8 mmol/L (3.5-5.1)
[2020-06-15] MEDS ORDERED: POTASSIUM CHLORIDE ORAL LIQUID 20 MEQ/15 ML PO ONE (10:15)
[2020-06-15] MEDS ORDERED: POTASSIUM CHLORIDE TABS 20 MEQ TABLET.ER (FP) PO SCH (10:15)
[2020-06-15 10:42] LABS: HEMATOCRIT 24.3 % (35.4-49); HEMOGLOBIN 8.1 GM/dL (11.7-16.9); MCH 30.1 pg (25.7-33.7); MCHC 33.1 g/dl (32.0-35.9); MEAN CELL VOLUME 90.7 fl (80-96); PLATELET COUNT 219 K/MM3 (134-434); RBC 2.68 M/mm3 (4.00-5.60); RDW 13.4 % (11.9-15.9)
[2020-06-15] MEDS: KCL 10 MEQ IVPB 10 MEQ/100 ML INFUS.BAG IVPB SCH ×3 (10:42→14:06)
[2020-06-15] MEDS ORDERED: PT OWN MED DRAWER 7, Y5N ONE ×5 (11:27→21:22)
[2020-06-15] MEDS: ATORVASTATIN CA 40 MG TABLET (FP) PO SCH (11:29)
[2020-06-15] MEDS: CARVEDILOL 6.25 MG TABLET (FP) PO SCH ×2 (11:29→21:19)
[2020-06-15] MEDS: NIFEdipine E.R. 30 MG TABLET PO SCH ×2 (11:29→21:19)
[2020-06-15] MEDS: METOCLOPRAMIDE HCL 10 MG TABLET (FP) PO SCH ×2 (11:30→16:19)
[2020-06-15] MEDS: LIPASE/PROTEASE/AMYLASE 36,000 UNIT CAPSULE PO SCH ×2 (11:31→18:04)
[2020-06-15] MEDS: PANTOPRAZOLE 40 MG TABLET PO SCH ×2 (12:10→21:19)
[2020-06-15] MEDS: SUCRALFATE 1 GM TABLET (FP) PO SCH ×3 (14:03→21:19)
[2020-06-15] MEDS ORDERED: ACETAMINOPHEN 1000 MG/100 ML VIAL (NON FORMULARY) IVPB PRN (18:09)
[2020-06-15 18:41] LABS: CALCIUM 7.4 mg/dl (8.5-10); CREATININE 3.9 mg/dl (0.55-1.3); MAGNESIUM 1.9 mg/dL (1.8-2.4); POTASSIUM 3.4 mmol/L (3.5-5.1)
[2020-06-16] MEDS: METOCLOPRAMIDE HCL 10 MG TABLET (FP) PO SCH ×3 (06:12→16:33)
[2020-06-16] MEDS: INSULIN SLIDING SCALE (NOVOLOG) 1 VIAL SQ SCH ×3 (06:13→16:51)
[2020-06-16] MEDS: SODIUM CHLORIDE 1,000 ML IV SCH (06:13)
[2020-06-16 06:18] VITALS: TEMP 98.5
[2020-06-16 08:11] LABS: CALCIUM 7.5 mg/dl (8.5-10); CREATININE 3.7 mg/dl (0.55-1.3); MAGNESIUM 1.8 mg/dL (1.8-2.4); POTASSIUM 3.2 mmol/L (3.5-5.1)
[2020-06-16] MEDS: PANTOPRAZOLE 40 MG TABLET PO SCH (09:08)
[2020-06-16] MEDS: SIMETHICONE 80 MG TAB.CHEW (FP) PO SCH ×2 (09:08→13:42)
[2020-06-16] MEDS: ATORVASTATIN CA 40 MG TABLET (FP) PO SCH (09:08)
[2020-06-16] MEDS: APIXABAN 5 MG TABLET PO SCH (09:10)
[2020-06-16] MEDS ORDERED: PT OWN MED DRAWER 7, Y5N ONE ×3 (09:11→12:02)
[2020-06-16] MEDS: LIPASE/PROTEASE/AMYLASE 36,000 UNIT CAPSULE PO SCH ×2 (09:11→12:05)
[2020-06-16] MEDS: NIFEdipine E.R. 30 MG TABLET PO SCH (09:14)
[2020-06-16] MEDS: CARVEDILOL 6.25 MG TABLET (FP) PO SCH (09:14)
[2020-06-16] MEDS: KCL 10 MEQ IVPB 10 MEQ/100 ML INFUS.BAG IVPB SCH ×3 (09:24→12:05)
[2020-06-16] MEDS ORDERED: POTASSIUM CHLORIDE TABS 20 MEQ TABLET.ER (FP) PO ONE (09:30)
[2020-06-16] MEDS: POLYETHYLENE GLYCOL 3350 119 GM BTL PO SCH (09:31)
[2020-06-16] MEDS: SUCRALFATE 1 GM TABLET (FP) PO SCH ×2 (09:31→13:42)
[2020-06-16 13:45] VITALS: BP 113/56; PULSE 69
[2020-06-16] MEDS ORDERED: TAMSULOSIN HCL 0.4 MG CAP PO SCH (18:30)
== END 2020-06-16 16:52 | disposition home or self-care (01) | DRG 469 ==
LOC: JER 18:53 → JERBED 06-13 00:12 → FM/S 06-14 12:25
PROVIDERS: ADMIT Internal Medicine; ATTEND Nurse Practitioner Acute Care
DX: N17.9 Acute kidney failure, unspecified (principal); E11.43 Type 2 diabetes mellitus with diabetic autonomic (poly)neuropathy; K31.84 Gastroparesis; F41.8 Other specified anxiety disorders; R10.9 Unspecified abdominal pain; E11.51 Type 2 diabetes mellitus with diabetic peripheral angiopathy without gangrene; I13.0 Hypertensive heart and chronic kidney disease with heart failure and stage 1 through stage 4 chronic kidney disease, or unspecified chronic kidney disease; E11.22 Type 2 diabetes mellitus with diabetic chronic kidney disease; N18.9 Chronic kidney disease, unspecified; I50.32 Chronic diastolic (congestive) heart failure; E87.0 Hyperosmolality and hypernatremia; E87.3 Alkalosis; E86.0 Dehydration; E87.6 Hypokalemia; K59.09 Other constipation; N40.0 Benign prostatic hyperplasia without lower urinary tract symptoms; D63.1 Anemia in chronic kidney disease; R11.2 Nausea with vomiting, unspecified; Z89.421 Acquired absence of other right toe(s); Z89.422 Acquired absence of other left toe(s); Z86.718 Personal history of other venous thrombosis and embolism
CPT/HCPCS: 36415; 70450-TC; 71045-TC-FY; 76775-TC; 76856-TC; 80048; 80053; 81003; 82010; 82150; 82436; 82550; 82553; 82565; 82728; 82803; 82962; 83540; 83550; 83605; 83615; 83690; 83735; 84100; 84110; 84202; 84300; 84443; 84484; 84540; 85025; 85027; 85045; 85610; 85730; 86140; 86850; 86900; 86901; 87086; 93005; 93010; 97116-GP; 97162-GP; 99285-25; C9803; J0131; U0003

== ENCOUNTER 2020-06-20 13:15 | Inpatient (IN) | payer OTHER ==
[2020-06-20] MEDS ORDERED: PANTOPRAZOLE SODIUM 40 MG VIAL IVPUSH ONE (13:38)
[2020-06-20] MEDS ORDERED: LACTATED RINGERS SOLUTION 1000 ML INFUS.BAG IV ONE ×2 (13:38→14:54)
[2020-06-20] MEDS ORDERED: METOCLOPRAMIDE HCL INJECTION 10 MG/2 ML VIAL IVPUSH ONE (13:38)
[2020-06-20] MEDS ORDERED: ACETAMINOPHEN 1000 MG/100 ML VIAL (NON FORMULARY) IVPB ONE ×2 (13:39→20:29)
[2020-06-20] MEDS ORDERED: PANTOPRAZOLE SODIUM 40 MG/100 ML BAG IVPB ONE (14:04)
[2020-06-20] MEDS ORDERED: ACETAMINOPHEN INJECTION 100 ML IVPB ONE (14:04)
[2020-06-20] MEDS ORDERED: METOCLOPRAMIDE HCL INJECTION 10 MG/2 ML VIAL ONE (14:04)
[2020-06-20 14:31] LABS: BASO % 0.3 % (0-2.0); EOS % 0.6 % (0-4.5); HEMATOCRIT 26.7 % (35.4-49); HEMOGLOBIN 8.9 GM/dL (11.7-16.9); LYMPH % 14.6 % (8-40); MCH 30.2 pg (25.7-33.7); MCHC 33.2 g/dl (32.0-35.9); MEAN CELL VOLUME 90.9 fl (80-96); MEAN PLT VOLUME 10.4 fl (7.5-11.1); MONO % 5.4 % (3.8-10.2); NEUT % 79.1 % (42.8-82.8); PLATELET COUNT 297 K/MM3 (134-434); RBC 2.94 M/mm3 (4.00-5.60); RDW 13.4 % (11.9-15.9); WHITE BLOOD COUNT 12.6 K/mm3 (4.0-10.0)
[2020-06-20 14:40] LABS: POTASSIUM 3.9 mmol/L (3.5-5.1)
[2020-06-20 14:42] LABS: CALCIUM 8.4 mg/dL (8.5-10.1)
[2020-06-20 14:43] LABS: ALBUMIN 2.2 g/dl (3.4-5.0); BLOOD UREA NITROGEN 28.7 mg/dL (7-18)
[2020-06-20 14:44] LABS: INR 1.08 (0.83-1.09); PROTHROMBIN TIME (PATIENT) 13.2 SEC (9.7-13.0)
[2020-06-20 14:46] LABS: CREATININE 4.2 mg/dL (0.55-1.3)
[2020-06-20 14:47] LABS: BILIRUBIN,TOTAL 0.3 mg/dL (0.2-1); TOT PROT 5.6 g/dl (6.4-8.2)
[2020-06-20] MEDS ORDERED: MAG HYDROX/AL HYDROX/SIMETH 30 ML UNIT-DOSE CUP PO ONE (14:50)
[2020-06-20] MEDS ORDERED: LIDOCAINE VISCOUS 2% ORAL/TOP 20 ML UNIT-DOSE CUP MM ONE (14:50)
[2020-06-20] MEDS ORDERED: MAG HYDROX/AL HYDROX/SIMETH 30 ML UNIT-DOSE CUP ONE (15:05)
[2020-06-20] MEDS ORDERED: LIDOCAINE VISCOUS 2% ORAL/TOP 20 ML UNIT-DOSE CUP ONE (15:05)
[2020-06-20] MEDS ORDERED: SIMETHICONE 80 MG TAB.CHEW (FP) PO PRN (20:46)
[2020-06-20] MEDS ORDERED: PROCHLORPERAZINE INJECTION 10 MG/2 ML VIAL IVPB PRN (20:46)
[2020-06-20 21:02] LABS: MAGNESIUM 2.2 mg/dL (1.8-2.4)
[2020-06-20 21:05] LABS: PHOSPHOROUS 4.2 mg/dL (2.5-4.9)
[2020-06-20] MEDS ORDERED: MORPHINE SULFATE 2 MG/ML VIAL IVPUSH PRN (21:46)
[2020-06-20] MEDS: SODIUM CHLORIDE 0.45% 1,000 ML IV SCH (22:47)
[2020-06-20] MEDS: APIXABAN 5 MG TABLET PO SCH (22:48)
[2020-06-20] MEDS: INSULIN SLIDING SCALE (NOVOLOG) 1 VIAL SQ SCH (22:48)
[2020-06-20 23:56] VITALS: BMI 22.4
[2020-06-21] MEDS ORDERED: ACETAMINOPHEN 1000 MG/100 ML VIAL (NON FORMULARY) IVPB PRN (02:00)
[2020-06-21] MEDS: INSULIN SLIDING SCALE (NOVOLOG) 1 VIAL SQ SCH ×4 (06:20→22:25)
[2020-06-21] MEDS: SODIUM CHLORIDE 0.45% 1,000 ML IV SCH ×2 (08:38→22:25)
[2020-06-21 08:41] LABS: EPI CELLS 30 /uL (0-25.1); HYALINE CASTS 3 /uL (0-3.1); PH,URINE >= 9.0 (5.0-8.0); URINE APPEARANCE CLEAR; URINE BACTERIA 35 /uL (0-1359); URINE BILIRUBIN NEGATIVE (NEGATIVE); URINE COLOR YELLOW; URINE GLUCOSE (UA) TRACE (NEGATIVE); URINE KETONE NEGATIVE (NEGATIVE); URINE LEUK ESTERASE NEGATIVE (NEGATIVE); URINE NITRITE NEGATIVE (NEGATIVE); URINE PROTEIN 4+ (NEGATIVE); URINE RBC 12 /uL (0-23.9); URINE UROBILINOGEN 0.2 mg/dL (0.2-1.0); URINE WBC 6 /uL (0-25.8)
[2020-06-21 10:10] LABS: HEMATOCRIT 25.5 % (35.4-49); HEMOGLOBIN 8.6 GM/dL (11.7-16.9); RBC 2.84 M/mm3 (4.00-5.60); WHITE BLOOD COUNT 11.8 K/mm3 (4.0-10.0)
[2020-06-21 10:11] LABS: BASO % 0.3 % (0-2.0); EOS % 1.5 % (0-4.5); MCH 30.3 pg (25.7-33.7); MCHC 33.7 g/dl (32.0-35.9); MEAN CELL VOLUME 89.9 fl (80-96); MEAN PLT VOLUME 9.5 fl (7.5-11.1); MONO % 6.8 % (3.8-10.2); NEUT % 66.4 % (42.8-82.8); PLATELET COUNT 227 K/MM3 (134-434); RDW 13.4 % (11.9-15.9)
[2020-06-21] MEDS: PANTOPRAZOLE SODIUM 40 MG VIAL IVPUSH SCH (10:17)
[2020-06-21] MEDS: APIXABAN 5 MG TABLET PO SCH ×2 (10:45→22:25)
[2020-06-21 10:47] LABS: CALCIUM 7.7 mg/dL (8.5-10.1)
[2020-06-21 10:49] LABS: ALBUMIN 2.2 g/dl (3.4-5.0); BLOOD UREA NITROGEN 24.7 mg/dL (7-18)
[2020-06-21 10:52] LABS: CREATININE 3.6 mg/dL (0.55-1.3); PHOSPHOROUS 3.4 mg/dL (2.5-4.9)
[2020-06-21 10:53] LABS: BILIRUBIN,TOTAL 0.4 mg/dL (0.2-1); TOT PROT 4.9 g/dl (6.4-8.2)
[2020-06-21 11:02] LABS: POTASSIUM 2.9 mmol/L (3.5-5.1)
[2020-06-21] MEDS: KCL 10 MEQ IVPB 10 MEQ/100 ML INFUS.BAG IVPB SCH ×3 (13:14→15:09)
[2020-06-21] MEDS: TAMSULOSIN HCL 0.4 MG CAP PO SCH (13:14)
[2020-06-21] MEDS ORDERED: ERYTHROMYCIN BASE 250 MG TAB PO SCH (13:15)
[2020-06-21] MEDS: LIPASE/PROTEASE/AMYLASE 36,000 UNIT CAPSULE PO SCH (17:14)
[2020-06-21] MEDS: ERYTHROMYCIN BASE 250 MG TAB PO SCH (17:15)
[2020-06-21 19:35] LABS: BLOOD UREA NITROGEN 23.5 mg/dL (7-18); CALCIUM 7.5 mg/dL (8.5-10.1)
[2020-06-21 19:39] LABS: CREATININE 3.6 mg/dL (0.55-1.3)
[2020-06-21] MEDS: CARVEDILOL 6.25 MG TABLET (FP) PO SCH (22:25)
[2020-06-21] MEDS: ATORVASTATIN CA 40 MG TABLET (FP) PO SCH (22:25)
[2020-06-22] MEDS ORDERED: PT OWN MED DRAWER 7, Y5N ONE ×5 (05:33→16:47)
[2020-06-22] MEDS: INSULIN SLIDING SCALE (NOVOLOG) 1 VIAL SQ SCH ×4 (06:47→21:09)
[2020-06-22] MEDS: ERYTHROMYCIN BASE 250 MG TAB PO SCH ×3 (06:47→16:48)
[2020-06-22] MEDS: LIPASE/PROTEASE/AMYLASE 36,000 UNIT CAPSULE PO SCH ×3 (07:52→17:12)
[2020-06-22 09:12] LABS: BASO % 0.4 % (0-2.0); EOS % 1.1 % (0-4.5); HEMATOCRIT 23.8 % (35.4-49); LYMPH % 20.3 % (8-40); MCHC 33.4 g/dl (32.0-35.9); MEAN CELL VOLUME 89.8 fl (80-96); MEAN PLT VOLUME 9.4 fl (7.5-11.1); MONO % 5.5 % (3.8-10.2); NEUT % 72.7 % (42.8-82.8); PLATELET COUNT 234 K/MM3 (134-434); RBC 2.65 M/mm3 (4.00-5.60); RDW 13.2 % (11.9-15.9); WHITE BLOOD COUNT 14.3 K/mm3 (4.0-10.0)
[2020-06-22] MEDS: TAMSULOSIN HCL 0.4 MG CAP PO SCH (09:35)
[2020-06-22] MEDS: CARVEDILOL 6.25 MG TABLET (FP) PO SCH ×2 (09:35→21:09)
[2020-06-22] MEDS: APIXABAN 5 MG TABLET PO SCH ×2 (09:35→21:09)
[2020-06-22] MEDS: PANTOPRAZOLE SODIUM 40 MG VIAL IVPUSH SCH (09:36)
[2020-06-22 09:38] LABS: BLOOD UREA NITROGEN 20.5 mg/dL (7-18); CALCIUM 7.5 mg/dL (8.5-10.1); MAGNESIUM 1.7 mg/dL (1.8-2.4)
[2020-06-22 09:41] LABS: CREATININE 3.2 mg/dL (0.55-1.3); TOT PROT 4.6 g/dl (6.4-8.2)
[2020-06-22 09:42] LABS: PHOSPHOROUS 2.8 mg/dL (2.5-4.9)
[2020-06-22 09:44] LABS: BILIRUBIN,TOTAL 0.6 mg/dL (0.2-1)
[2020-06-22 09:49] LABS: POTASSIUM 2.9 mmol/L (3.5-5.1)
[2020-06-22] MEDS ORDERED: SODIUM CHLORIDE 0.45% 1,000 ML with POTASSIUM CHLORIDE 40 MEQ IV SCH (10:09)
[2020-06-22] MEDS ORDERED: POTASSIUM CHLORIDE TABS 20 MEQ TABLET.ER (FP) PO ONE ×3 (10:30→17:00)
[2020-06-22] MEDS ORDERED: MAGNESIUM 1GM/D5W - 1 GM/100 ML IVPB IVPB ONE (10:30)
[2020-06-22] MEDS: POTASSIUM CHLORIDE 40 MEQ in SODIUM CHLORIDE 0.45% 1,000 ML IV SCH (12:32)
[2020-06-22 16:31] LABS: BILIRUBIN,TOTAL 0.3 mg/dL (0.2-1); BLOOD UREA NITROGEN 20.9 mg/dL (7-18); CALCIUM 7.3 mg/dL (8.5-10.1); CREATININE 3.3 mg/dL (0.55-1.3); POTASSIUM 3.2 mmol/L (3.5-5.1); TOT PROT 4.5 g/dl (6.4-8.2)
[2020-06-22] MEDS: SIMETHICONE 80 MG TAB.CHEW (FP) PO SCH ×2 (17:13→21:09)
[2020-06-22] MEDS: ATORVASTATIN CA 40 MG TABLET (FP) PO SCH (21:09)
[2020-06-22 23:34] VITALS: BP 115/97; PULSE 75; TEMP 98.6
[2020-06-23] MEDS: POTASSIUM CHLORIDE 40 MEQ in SODIUM CHLORIDE 0.45% 1,000 ML IV SCH (01:14)
== END 2020-06-23 02:15 | disposition short-term general hospital (02) | DRG 48 ==
LOC: JER 13:15 → JERBED 18:19 → J6S 20:32
PROVIDERS: ADMIT Internal Medicine; ATTEND Student in an Organized Health Care Education/Training Program
DX: E11.43 Type 2 diabetes mellitus with diabetic autonomic (poly)neuropathy (principal); N17.9 Acute kidney failure, unspecified; E11.22 Type 2 diabetes mellitus with diabetic chronic kidney disease; I13.0 Hypertensive heart and chronic kidney disease with heart failure and stage 1 through stage 4 chronic kidney disease, or unspecified chronic kidney disease; I50.32 Chronic diastolic (congestive) heart failure; E11.65 Type 2 diabetes mellitus with hyperglycemia; N18.4 Chronic kidney disease, stage 4 (severe); E87.0 Hyperosmolality and hypernatremia; K31.84 Gastroparesis; E78.5 Hyperlipidemia, unspecified; E87.6 Hypokalemia; Z86.718 Personal history of other venous thrombosis and embolism; Z79.4 Long term (current) use of insulin; N40.0 Benign prostatic hyperplasia without lower urinary tract symptoms; D64.9 Anemia, unspecified; Z86.711 Personal history of pulmonary embolism; Z79.01 Long term (current) use of anticoagulants; Z89.422 Acquired absence of other left toe(s); Z89.421 Acquired absence of other right toe(s); E86.0 Dehydration; R64 Cachexia; Z68.22 Body mass index [BMI] 22.0-22.9, adult
CPT/HCPCS: 36415; 71045-TC-FY; 80048; 80053; 81003; 82010; 82962; 83690; 83735; 84100; 84484; 85025; 85610; 85730; 87086; 93005; 93010; 99285-25; C9803; J0131; U0003

== ENCOUNTER 2020-08-23 17:49 | Inpatient (IN) | payer OTHER ==
[2020-08-23] MEDS ORDERED: LABETALOL HCL 5 MG/1 ML (100MG/20 ML VIAL) IVPUSH ONE (18:21)
[2020-08-23] MEDS ORDERED: morphine CARPU-JECT 4 MG/1 ML DISP.SYRIN IVPUSH ONE ×2 (18:22→20:34)
[2020-08-23] MEDS ORDERED: ONDANSETRON 4 MG/2 ML VIAL IVPUSH ONE (18:24)
[2020-08-23] MEDS ORDERED: morphine SULFATE 4 MG/ML VIAL ONE ×2 (18:44→20:39)
[2020-08-23] MEDS ORDERED: ONDANSETRON 4 MG/2 ML VIAL ONE (18:47)
[2020-08-23 19:03] LABS: BASO % 0.6 % (0-2.0); EOS % 0.1 % (0-4.5); HEMATOCRIT 32.6 % (35.4-49); HEMOGLOBIN 10.9 GM/dL (11.7-16.9); LYMPH % 8.8 % (8-40); MCH 30.6 pg (25.7-33.7); MCHC 33.3 g/dl (32.0-35.9); MEAN PLT VOLUME 10.3 fl (7.5-11.1); MONO % 6.8 % (3.8-10.2); NEUT % 83.7 % (42.8-82.8); PLATELET COUNT 309 K/MM3 (134-434); RBC 3.55 M/mm3 (4.00-5.60); WHITE BLOOD COUNT 12.2 K/mm3 (4.0-10.0)
[2020-08-23 19:16] LABS: INR 1.09 (0.83-1.09); PROTHROMBIN TIME (PATIENT) 13.2 SEC (9.7-13.0)
[2020-08-23 19:19] LABS: ACTIVATED PTT 31.7 SECONDS (25.2-36.5)
[2020-08-23 19:20] LABS: CALCIUM 9.1 mg/dL (8.5-10.1)
[2020-08-23 19:21] LABS: ALBUMIN 2.8 g/dl (3.4-5.0); BLOOD UREA NITROGEN 37.2 mg/dL (7-18); MAGNESIUM 2.2 mg/dL (1.8-2.4)
[2020-08-23 19:24] LABS: CREATININE 3.5 mg/dL (0.55-1.3)
[2020-08-23 19:25] LABS: BILIRUBIN,TOTAL 0.3 mg/dL (0.2-1); TOT PROT 6.8 g/dl (6.4-8.2)
[2020-08-23] MEDS ORDERED: SODIUM CHLORIDE 0.9% 1000 ML INFUS.BAG IV ONE ×2 (19:47→22:36)
[2020-08-23] MEDS ORDERED: METOCLOPRAMIDE HCL INJECTION 10 MG/2 ML VIAL IVPUSH ONE (20:56)
[2020-08-23] MEDS ORDERED: PANTOPRAZOLE SODIUM 40 MG VIAL IVPUSH ONE (20:56)
[2020-08-23] MEDS ORDERED: METOCLOPRAMIDE HCL INJECTION 10 MG/2 ML VIAL ONE (21:02)
[2020-08-23] MEDS ORDERED: PANTOPRAZOLE SODIUM 40 MG VIAL ONE (21:02)
[2020-08-23 23:23] LABS: EPI CELLS >36 /uL (0-25.1); HYALINE CASTS 24 /uL (0-3.1); PH,URINE 6.5 (5.0-8.0); URINE APPEARANCE CLEAR; URINE BACTERIA 23 /uL (0-1359); URINE BILIRUBIN NEGATIVE (NEGATIVE); URINE COLOR YELLOW; URINE GLUCOSE (UA) 1+ (NEGATIVE); URINE KETONE NEGATIVE (NEGATIVE); URINE LEUK ESTERASE NEGATIVE (NEGATIVE); URINE NITRITE NEGATIVE (NEGATIVE); URINE PROTEIN 4+ (NEGATIVE); URINE RBC 54 /uL (0-23.9); URINE UROBILINOGEN 0.2 mg/dL (0.2-1.0); URINE WBC 26 /uL (0-25.8)
[2020-08-24] MEDS ORDERED: ACETAMINOPHEN 1000 MG/100 ML VIAL (NON FORMULARY) IVPB PRN (00:46)
[2020-08-24] MEDS ORDERED: METOCLOPRAMIDE HCL INJECTION 10 MG/2 ML VIAL IVPUSH PRN (00:50)
[2020-08-24] MEDS ORDERED: SODIUM CHLORIDE 0.45% 1,000 ML IV SCH (01:00)
[2020-08-24] MEDS ORDERED: METOPROLOL TARTRATE 5 MG/5 ML VIAL ONE (01:51)
[2020-08-24] MEDS ORDERED: NITROGLYCERIN 2% OINTMENT - 1GM PACKET TD ONE (01:52)
[2020-08-24] MEDS: NITROGLYCERIN 2% OINTMENT - 1GM PACKET TD PRN ×2 (01:57→18:37)
[2020-08-24] MEDS ORDERED: CARVEDILOL 6.25 MG TABLET (FP) PO ONE (02:07)
[2020-08-24] MEDS: ERYTHROMYCIN BASE 250 MG TAB PO SCH ×3 (05:40→21:59)
[2020-08-24 06:37] LABS: BASO % 0.3 % (0-2.0); EOS % 0.2 % (0-4.5); HEMATOCRIT 27.8 % (35.4-49); HEMOGLOBIN 9.4 GM/dL (11.7-16.9); LYMPH % 19.5 % (8-40); MCH 30.9 pg (25.7-33.7); MCHC 33.6 g/dl (32.0-35.9); MEAN PLT VOLUME 9.2 fl (7.5-11.1); PLATELET COUNT 246 K/MM3 (134-434); RBC 3.02 M/mm3 (4.00-5.60); WHITE BLOOD COUNT 11.1 K/mm3 (4.0-10.0)
[2020-08-24 07:41] LABS: CALCIUM 8.3 mg/dL (8.5-10.1)
[2020-08-24 07:42] LABS: ALBUMIN 2.4 g/dl (3.4-5.0); BLOOD UREA NITROGEN 39.4 mg/dL (7-18)
[2020-08-24 07:43] LABS: MAGNESIUM 2.1 mg/dL (1.8-2.4)
[2020-08-24 07:45] LABS: CREATININE 3.9 mg/dL (0.55-1.3); PHOSPHOROUS 4.9 mg/dL (2.5-4.9)
[2020-08-24 07:47] LABS: BILIRUBIN,TOTAL 0.3 mg/dL (0.2-1); TOT PROT 5.4 g/dl (6.4-8.2)
[2020-08-24] MEDS: INSULIN SLIDING SCALE (NOVOLOG) 1 VIAL SQ SCH ×4 (08:00→21:59)
[2020-08-24] MEDS ORDERED: PANTOPRAZOLE SODIUM 40 MG VIAL IVPUSH SCH (10:00)
[2020-08-24] MEDS ORDERED: METOPROLOL TARTRATE 5 MG/5 ML VIAL IVPUSH SCH (10:00)
[2020-08-24] MEDS ORDERED: ACETAMINOPHEN INJECTION 100 ML IVPB ONE (10:09)
[2020-08-24] MEDS ORDERED: PANTOPRAZOLE SODIUM 40 MG VIAL ONE (10:09)
[2020-08-24] MEDS ORDERED: APIXABAN 5 MG TABLET ONE (10:09)
[2020-08-24] MEDS: APIXABAN 5 MG TABLET PO SCH ×2 (10:21→21:58)
[2020-08-24] MEDS ORDERED: LABETALOL HCL 5 MG/1 ML (100MG/20 ML VIAL) IVPUSH PRN (16:20)
[2020-08-24] MEDS ORDERED: MORPHINE SULFATE 2 MG/ML VIAL IVPUSH PRN (16:25)
[2020-08-24] MEDS ORDERED: HYDROmorphone HCl 2 MG/ML VIAL IVPUSH ONE (16:28)
[2020-08-24] MEDS ORDERED: amLODIPine BESYLATE 10 MG TABLET (FP) PO SCH (16:30)
[2020-08-24] MEDS ORDERED: LABETALOL HCL 5 MG/1 ML (100MG/20 ML VIAL) IVPUSH ONE ×2 (16:36→22:47)
[2020-08-24] MEDS ORDERED: HYDROmorphone HCl 2 MG/ML VIAL ONE (16:39)
[2020-08-24] MEDS ORDERED: HYDROmorphone HCl 2 MG/ML VIAL IVPB ONE ×2 (18:44→18:50)
[2020-08-24] MEDS ORDERED: ONDANSETRON 4 MG/2 ML VIAL IVPUSH ONE (22:48)
[2020-08-25] MEDS: NITROGLYCERIN 2% OINTMENT - 1GM PACKET TD PRN (00:39)
[2020-08-25] MEDS ORDERED: ACETAMINOPHEN 1000 MG/100 ML VIAL (NON FORMULARY) IVPB PRN (00:41)
[2020-08-25] MEDS ORDERED: LABETALOL HCL 5 MG/1 ML (100MG/20 ML VIAL) IVPUSH PRN (00:41)
[2020-08-25] MEDS ORDERED: NITROGLYCERIN 2% OINTMENT - 1GM PACKET TD PRN (00:41)
[2020-08-25] MEDS ORDERED: LABETALOL HCL 5 MG/1 ML (100MG/20 ML VIAL) IVPUSH ONE (03:14)
[2020-08-25] MEDS: METOCLOPRAMIDE HCL INJECTION 10 MG/2 ML VIAL IVPUSH PRN ×2 (03:36→22:09)
[2020-08-25] MEDS ORDERED: NIFEdipine E.R. 30 MG TABLET PO ONE (04:30)
[2020-08-25] MEDS ORDERED: ERYTHROMYCIN BASE 250 MG TAB PO SCH (06:00)
[2020-08-25] MEDS: INSULIN SLIDING SCALE (NOVOLOG) 1 VIAL SQ SCH ×4 (06:42→22:08)
[2020-08-25 07:42] LABS: HEMATOCRIT 26.2 % (35.4-49); HEMOGLOBIN 8.8 GM/dL (11.7-16.9); MCHC 33.7 g/dl (32.0-35.9); MEAN CELL VOLUME 91.9 fl (80-96); MEAN PLT VOLUME 9.5 fl (7.5-11.1); PLATELET COUNT 230 K/MM3 (134-434); RBC 2.85 M/mm3 (4.00-5.60); RDW 14.5 % (11.9-15.9); WHITE BLOOD COUNT 9.6 K/mm3 (4.0-10.0)
[2020-08-25 08:05] LABS: ALBUMIN 2.4 g/dl (3.4-5.0); CALCIUM 7.9 mg/dL (8.5-10.1)
[2020-08-25 08:06] LABS: BLOOD UREA NITROGEN 37.2 mg/dL (7-18)
[2020-08-25 08:08] LABS: CREATININE 3.6 mg/dL (0.55-1.3)
[2020-08-25 08:09] LABS: PHOSPHOROUS 4.5 mg/dL (2.5-4.9)
[2020-08-25 08:10] LABS: BILIRUBIN,TOTAL 0.4 mg/dL (0.2-1); TOT PROT 5.3 g/dl (6.4-8.2)
[2020-08-25] MEDS: TAMSULOSIN HCL 0.4 MG CAP PO SCH (08:45)
[2020-08-25] MEDS: PANTOPRAZOLE SODIUM 40 MG VIAL IVPUSH SCH (09:02)
[2020-08-25] MEDS: APIXABAN 5 MG TABLET PO SCH ×2 (09:03→22:08)
[2020-08-25] MEDS: CARVEDILOL 6.25 MG TABLET (FP) PO SCH ×2 (09:03→22:08)
[2020-08-25] MEDS: SUCRALFATE 1 GM TABLET (FP) PO SCH ×4 (09:03→22:08)
[2020-08-25] MEDS ORDERED: VALSARTAN 160 MG TABLET PO SCH (10:00)
[2020-08-25] MEDS ORDERED: NIFEdipine E.R. 30 MG TABLET PO SCH (10:00)
[2020-08-25] MEDS ORDERED: HYDROmorphone HCl 2 MG/ML VIAL ONE (10:31)
[2020-08-25] MEDS: HYDROmorphone HCl 2 MG/ML VIAL IVPB PRN ×2 (10:36→22:09)
[2020-08-25] MEDS: NIFEdipine E.R. 90 MG TABLET PO SCH (11:31)
[2020-08-25] MEDS ORDERED: PT OWN MED DRAWER 7, Y5N ONE (12:07)
[2020-08-25] MEDS: LIPASE/PROTEASE/AMYLASE 36,000 UNIT CAPSULE PO SCH ×2 (12:45→17:01)
[2020-08-25 13:58] LABS: COCAINE, UR NEGATIVE ng/ml (CUTOFF=300); METHADONE, UR NEGATIVE ng/ml (CUTOFF=300); URINE BARBITURATES NEGATIVE ng/ml (CUTOFF=200); URINE BENZODIAZEPINES NEGATIVE ng/ml (CUTOFF=200)
[2020-08-25 13:59] LABS: URINE AMPHETAMINES NEGATIVE ng/ml (CUTOFF=500)
[2020-08-25 14:08] LABS: PHENCYCLIDINE,URINE NEGATIVE ng/ml (CUTOFF=25)
[2020-08-25 14:18] LABS: OPIATES, URI POSITIVE ng/ml (CUTOFF=300)
[2020-08-25] MEDS: SODIUM CHLORIDE 0.45% 1,000 ML IV SCH (17:02)
[2020-08-25] MEDS: ATORVASTATIN CA 40 MG TABLET (FP) PO SCH (22:08)
[2020-08-26] MEDS: HYDROmorphone HCl 2 MG/ML VIAL IVPB PRN ×3 (05:35→21:30)
[2020-08-26] MEDS: INSULIN SLIDING SCALE (NOVOLOG) 1 VIAL SQ SCH ×4 (06:37→21:33)
[2020-08-26 07:29] LABS: HEMATOCRIT 23.3 % (35.4-49); HEMOGLOBIN 7.7 GM/dL (11.7-16.9); MCH 30.6 pg (25.7-33.7); MCHC 33.1 g/dl (32.0-35.9); MEAN CELL VOLUME 92.4 fl (80-96); MEAN PLT VOLUME 9.1 fl (7.5-11.1); PLATELET COUNT 198 K/MM3 (134-434); RBC 2.52 M/mm3 (4.00-5.60); RDW 14.1 % (11.9-15.9); WHITE BLOOD COUNT 8.8 K/mm3 (4.0-10.0)
[2020-08-26 08:06] LABS: ALBUMIN 2.1 g/dl (3.4-5.0); BLOOD UREA NITROGEN 34.9 mg/dL (7-18); CALCIUM 7.9 mg/dL (8.5-10.1)
[2020-08-26 08:09] LABS: CREATININE 3.9 mg/dL (0.55-1.3)
[2020-08-26 08:10] LABS: BILIRUBIN,TOTAL 0.5 mg/dL (0.2-1); TOT PROT 4.6 g/dl (6.4-8.2)
[2020-08-26] MEDS: LIPASE/PROTEASE/AMYLASE 36,000 UNIT CAPSULE PO SCH ×3 (08:45→16:34)
[2020-08-26] MEDS: SUCRALFATE 1 GM TABLET (FP) PO SCH ×4 (09:31→21:30)
[2020-08-26] MEDS: PANTOPRAZOLE SODIUM 40 MG VIAL IVPUSH SCH (09:31)
[2020-08-26] MEDS: TAMSULOSIN HCL 0.4 MG CAP PO SCH (09:31)
[2020-08-26] MEDS: APIXABAN 5 MG TABLET PO SCH ×2 (09:31→21:30)
[2020-08-26] MEDS: NIFEdipine E.R. 90 MG TABLET PO SCH (09:31)
[2020-08-26] MEDS: CARVEDILOL 6.25 MG TABLET (FP) PO SCH ×2 (09:31→21:30)
[2020-08-26] MEDS ORDERED: PT OWN MED DRAWER 7, Y5N ONE (11:16)
[2020-08-26] MEDS ORDERED: ACETAMINOPHEN 500 MG TABLET (FP) PO PRN (15:51)
[2020-08-26] MEDS: SODIUM CHLORIDE 0.45% 1,000 ML IV SCH (16:34)
[2020-08-26 19:53] VITALS: BMI 25.1
[2020-08-26] MEDS: ATORVASTATIN CA 40 MG TABLET (FP) PO SCH (21:30)
[2020-08-27] MEDS: INSULIN SLIDING SCALE (NOVOLOG) 1 VIAL SQ SCH ×4 (06:02→22:17)
[2020-08-27 07:18] LABS: HEMOGLOBIN 8.2 GM/dL (11.7-16.9); MCH 30.2 pg (25.7-33.7); MEAN CELL VOLUME 91.5 fl (80-96); MEAN PLT VOLUME 9.1 fl (7.5-11.1); PLATELET COUNT 217 K/MM3 (134-434); RBC 2.73 M/mm3 (4.00-5.60); RDW 13.9 % (11.9-15.9); WHITE BLOOD COUNT 8.3 K/mm3 (4.0-10.0)
[2020-08-27 07:39] LABS: CALCIUM 7.5 mg/dL (8.5-10.1)
[2020-08-27 07:40] LABS: BLOOD UREA NITROGEN 35.6 mg/dL (7-18)
[2020-08-27 07:43] LABS: CREATININE 4.1 mg/dL (0.55-1.3)
[2020-08-27] MEDS: HYDROmorphone HCl 2 MG/ML VIAL IVPB PRN ×3 (08:15→21:50)
[2020-08-27] MEDS: TAMSULOSIN HCL 0.4 MG CAP PO SCH (09:40)
[2020-08-27] MEDS: APIXABAN 5 MG TABLET PO SCH ×2 (09:40→21:51)
[2020-08-27] MEDS: CARVEDILOL 6.25 MG TABLET (FP) PO SCH ×2 (09:40→21:51)
[2020-08-27] MEDS: NIFEdipine E.R. 90 MG TABLET PO SCH (09:40)
[2020-08-27] MEDS: SUCRALFATE 1 GM TABLET (FP) PO SCH ×4 (09:40→21:51)
[2020-08-27] MEDS: PANTOPRAZOLE SODIUM 40 MG VIAL IVPUSH SCH (09:42)
[2020-08-27] MEDS: LIPASE/PROTEASE/AMYLASE 36,000 UNIT CAPSULE PO SCH ×3 (09:45→17:06)
[2020-08-27] MEDS ORDERED: PT OWN MED DRAWER 7, Y5N ONE (10:23)
[2020-08-27] MEDS ORDERED: METOCLOPRAMIDE HCL INJECTION 10 MG/2 ML VIAL IVPUSH PRN (19:20)
[2020-08-27] MEDS ORDERED: NITROGLYCERIN 2% OINTMENT - 1GM PACKET TD PRN (19:20)
[2020-08-27] MEDS ORDERED: ACETAMINOPHEN 500 MG TABLET (FP) PO PRN (19:20)
[2020-08-27] MEDS: ATORVASTATIN CA 40 MG TABLET (FP) PO SCH (21:51)
[2020-08-28] MEDS: HYDROmorphone HCl 2 MG/ML VIAL IVPB PRN ×3 (05:46→22:58)
[2020-08-28] MEDS: INSULIN SLIDING SCALE (NOVOLOG) 1 VIAL SQ SCH ×4 (08:29→21:24)
[2020-08-28] MEDS ORDERED: PT OWN MED DRAWER 7, Y5N ONE ×3 (08:45→17:09)
[2020-08-28] MEDS: LIPASE/PROTEASE/AMYLASE 36,000 UNIT CAPSULE PO SCH ×3 (08:46→17:16)
[2020-08-28] MEDS: TAMSULOSIN HCL 0.4 MG CAP PO SCH (08:46)
[2020-08-28 08:50] LABS: HEMATOCRIT 24.3 % (35.4-49); HEMOGLOBIN 8.3 GM/dL (11.7-16.9); MCH 30.8 pg (25.7-33.7); MCHC 34.2 g/dl (32.0-35.9); MEAN CELL VOLUME 89.8 fl (80-96); MEAN PLT VOLUME 9.3 fl (7.5-11.1); PLATELET COUNT 207 K/MM3 (134-434); RDW 13.8 % (11.9-15.9); WHITE BLOOD COUNT 8.7 K/mm3 (4.0-10.0)
[2020-08-28 09:24] LABS: BLOOD UREA NITROGEN 35.8 mg/dL (7-18); CALCIUM 7.5 mg/dL (8.5-10.1)
[2020-08-28] MEDS: APIXABAN 5 MG TABLET PO SCH ×2 (09:26→21:23)
[2020-08-28] MEDS: SUCRALFATE 1 GM TABLET (FP) PO SCH ×4 (09:26→21:23)
[2020-08-28] MEDS: NIFEdipine E.R. 90 MG TABLET PO SCH (09:26)
[2020-08-28] MEDS: CARVEDILOL 6.25 MG TABLET (FP) PO SCH ×2 (09:26→21:42)
[2020-08-28] MEDS: PANTOPRAZOLE SODIUM 40 MG VIAL IVPUSH SCH (09:27)
[2020-08-28 09:28] LABS: CREATININE 4.3 mg/dL (0.55-1.3)
[2020-08-28] MEDS: RIFAXIMIN 550 MG TABLET (UD) PO SCH (21:23)
[2020-08-28] MEDS: ATORVASTATIN CA 40 MG TABLET (FP) PO SCH (21:23)
[2020-08-29] MEDS: RIFAXIMIN 550 MG TABLET (UD) PO SCH ×3 (06:01→20:59)
[2020-08-29] MEDS: INSULIN SLIDING SCALE (NOVOLOG) 1 VIAL SQ SCH ×4 (06:12→21:00)
[2020-08-29] MEDS: HYDROmorphone HCl 2 MG/ML VIAL IVPB PRN ×2 (06:45→18:44)
[2020-08-29 09:04] LABS: HEMOGLOBIN 7.9 GM/dL (11.7-16.9); MCH 30.8 pg (25.7-33.7); MCHC 34.1 g/dl (32.0-35.9); MEAN CELL VOLUME 90.1 fl (80-96); MEAN PLT VOLUME 9.6 fl (7.5-11.1); PLATELET COUNT 224 K/MM3 (134-434); RBC 2.56 M/mm3 (4.00-5.60); RDW 13.5 % (11.9-15.9); WHITE BLOOD COUNT 7.5 K/mm3 (4.0-10.0)
[2020-08-29 09:06] LABS: CALCIUM 7.5 mg/dL (8.5-10.1)
[2020-08-29 09:08] LABS: BLOOD UREA NITROGEN 38.5 mg/dL (7-18)
[2020-08-29 09:11] LABS: BILIRUBIN,TOTAL 0.2 mg/dL (0.2-1)
[2020-08-29 09:12] LABS: TOT PROT 4.6 g/dl (6.4-8.2)
[2020-08-29] MEDS: LIPASE/PROTEASE/AMYLASE 36,000 UNIT CAPSULE PO SCH ×3 (09:18→16:55)
[2020-08-29] MEDS: CARVEDILOL 6.25 MG TABLET (FP) PO SCH ×2 (09:19→20:59)
[2020-08-29] MEDS: TAMSULOSIN HCL 0.4 MG CAP PO SCH (09:19)
[2020-08-29] MEDS: NIFEdipine E.R. 90 MG TABLET PO SCH (09:19)
[2020-08-29] MEDS: SUCRALFATE 1 GM TABLET (FP) PO SCH ×4 (09:19→21:01)
[2020-08-29] MEDS: APIXABAN 5 MG TABLET PO SCH ×2 (09:19→20:59)
[2020-08-29] MEDS: PANTOPRAZOLE SODIUM 40 MG VIAL IVPUSH SCH (09:44)
[2020-08-29] MEDS ORDERED: PT OWN MED DRAWER 7, Y5N ONE (12:27)
[2020-08-29] MEDS: ATORVASTATIN CA 40 MG TABLET (FP) PO SCH (20:59)
[2020-08-30] MEDS: RIFAXIMIN 550 MG TABLET (UD) PO SCH ×3 (05:43→20:59)
[2020-08-30] MEDS: HYDROmorphone HCl 2 MG/ML VIAL IVPB PRN ×2 (05:59→18:49)
[2020-08-30] MEDS: INSULIN SLIDING SCALE (NOVOLOG) 1 VIAL SQ SCH ×4 (06:22→21:01)
[2020-08-30] MEDS ORDERED: PT OWN MED DRAWER 7, Y5N ONE ×3 (09:06→16:56)
[2020-08-30] MEDS: LIPASE/PROTEASE/AMYLASE 36,000 UNIT CAPSULE PO SCH ×3 (09:10→17:12)
[2020-08-30] MEDS: APIXABAN 5 MG TABLET PO SCH ×2 (09:10→20:59)
[2020-08-30] MEDS: SUCRALFATE 1 GM TABLET (FP) PO SCH ×4 (09:10→20:59)
[2020-08-30] MEDS: CARVEDILOL 6.25 MG TABLET (FP) PO SCH ×2 (09:10→20:59)
[2020-08-30] MEDS: TAMSULOSIN HCL 0.4 MG CAP PO SCH (09:10)
[2020-08-30] MEDS: NIFEdipine E.R. 90 MG TABLET PO SCH (09:10)
[2020-08-30] MEDS: PANTOPRAZOLE SODIUM 40 MG VIAL IVPUSH SCH (09:10)
[2020-08-30 09:46] LABS: CALCIUM 7.8 mg/dL (8.5-10.1)
[2020-08-30 09:47] LABS: BLOOD UREA NITROGEN 37.4 mg/dL (7-18)
[2020-08-30 09:50] LABS: CREATININE 3.6 mg/dL (0.55-1.3)
[2020-08-30] MEDS: ATORVASTATIN CA 40 MG TABLET (FP) PO SCH (20:59)
[2020-08-31] MEDS: RIFAXIMIN 550 MG TABLET (UD) PO SCH ×2 (06:06→14:01)
[2020-08-31] MEDS: INSULIN SLIDING SCALE (NOVOLOG) 1 VIAL SQ SCH ×2 (06:06→12:09)
[2020-08-31 06:54] VITALS: PULSE 68
[2020-08-31 08:32] LABS: BASO % 0.3 % (0-2.0); EOS % 1.3 % (0-4.5); HEMATOCRIT 23.2 % (35.4-49); LYMPH % 26.7 % (8-40); MCH 30.8 pg (25.7-33.7); MCHC 34.4 g/dl (32.0-35.9); MEAN CELL VOLUME 89.5 fl (80-96); MEAN PLT VOLUME 9.1 fl (7.5-11.1); MONO % 6.5 % (3.8-10.2); NEUT % 65.2 % (42.8-82.8); PLATELET COUNT 244 K/MM3 (134-434); RDW 13.9 % (11.9-15.9); WHITE BLOOD COUNT 9.4 K/mm3 (4.0-10.0)
[2020-08-31] MEDS ORDERED: PT OWN MED DRAWER 7, Y5N ONE (08:53)
[2020-08-31 09:02] LABS: BLOOD UREA NITROGEN 39.2 mg/dL (7-18)
[2020-08-31 09:05] LABS: CREATININE 3.9 mg/dL (0.55-1.3)
[2020-08-31] MEDS: HYDROmorphone HCl 2 MG/ML VIAL IVPB PRN (09:08)
[2020-08-31] MEDS: PANTOPRAZOLE SODIUM 40 MG VIAL IVPUSH SCH (09:12)
[2020-08-31] MEDS: LIPASE/PROTEASE/AMYLASE 36,000 UNIT CAPSULE PO SCH ×2 (09:12→12:51)
[2020-08-31] MEDS: CARVEDILOL 6.25 MG TABLET (FP) PO SCH (09:12)
[2020-08-31] MEDS: APIXABAN 5 MG TABLET PO SCH (09:12)
[2020-08-31] MEDS: NIFEdipine E.R. 90 MG TABLET PO SCH (09:12)
[2020-08-31] MEDS: TAMSULOSIN HCL 0.4 MG CAP PO SCH (09:12)
[2020-08-31] MEDS: SUCRALFATE 1 GM TABLET (FP) PO SCH ×2 (09:17→14:01)
[2020-08-31 09:25] VITALS: BP 151/74; TEMP 98.4
[2020-08-31 10:38] LABS: CALCIUM 7.8 mg/dL (8.5-10.1)
== END 2020-08-31 14:40 | disposition home or self-care (01) | DRG 74 ==
LOC: JER 17:49 → SUPCPDRO 17:49 → JERBED 23:08 → J5S 08-24 18:13 → J4W 08-24 22:26 → J5S 08-27 17:23
PROVIDERS: ADMIT Student in an Organized Health Care Education/Training Program; ATTEND Internal Medicine
DX: E11.43 Type 2 diabetes mellitus with diabetic autonomic (poly)neuropathy (principal); I50.32 Chronic diastolic (congestive) heart failure; I31.3 Pericardial effusion (noninflammatory); I16.1 Hypertensive emergency; I13.0 Hypertensive heart and chronic kidney disease with heart failure and stage 1 through stage 4 chronic kidney disease, or unspecified chronic kidney disease; E87.0 Hyperosmolality and hypernatremia; N17.9 Acute kidney failure, unspecified; K31.84 Gastroparesis; E11.40 Type 2 diabetes mellitus with diabetic neuropathy, unspecified; E78.5 Hyperlipidemia, unspecified; E11.22 Type 2 diabetes mellitus with diabetic chronic kidney disease; N18.9 Chronic kidney disease, unspecified; D64.9 Anemia, unspecified; Z86.711 Personal history of pulmonary embolism; Z86.718 Personal history of other venous thrombosis and embolism; Z79.4 Long term (current) use of insulin; E87.6 Hypokalemia; E11.65 Type 2 diabetes mellitus with hyperglycemia; N40.0 Benign prostatic hyperplasia without lower urinary tract symptoms
CPT/HCPCS: 36415; 70450-TC; 71045-TC-FY; 74176-TC; 76775-TC; 76856-TC; 80048; 80053; 80307; 81003; 82550; 82553; 82962; 83605; 83690; 83735; 84100; 84484; 85025; 85027; 85610; 85730; 87086; 93005; 93010; 99285-25; C9803; J0131; U0003; U0005

== ENCOUNTER 2020-09-23 17:15 | Inpatient (IN) | payer OTHER ==
[2020-09-23] MEDS ORDERED: SODIUM CHLORIDE 0.9% 500 ML INFUS.BAG IV ONE (18:16)
[2020-09-23] MEDS ORDERED: ACETAMINOPHEN 1000 MG/100 ML VIAL (NON FORMULARY) IVPB ONE (18:16)
[2020-09-23] MEDS ORDERED: METOCLOPRAMIDE HCL INJECTION 10 MG/2 ML VIAL IVPB ONE (18:16)
[2020-09-23] MEDS ORDERED: PANTOPRAZOLE SODIUM 40 MG VIAL IVPUSH ONE (19:01)
[2020-09-23 19:10] LABS: BASO % 0.8 % (0-2.0); EOS % 0.2 % (0-4.5); HEMATOCRIT 28.4 % (35.4-49); HEMOGLOBIN 9.2 GM/dL (11.7-16.9); LYMPH % 10.5 % (8-40); MCH 29.3 pg (25.7-33.7); MCHC 32.3 g/dl (32.0-35.9); MEAN CELL VOLUME 90.6 fl (80-96); MEAN PLT VOLUME 8.8 fl (7.5-11.1); MONO % 5.2 % (3.8-10.2); NEUT % 83.3 % (42.8-82.8); PLATELET COUNT 392 K/MM3 (134-434); RBC 3.14 M/mm3 (4.00-5.60); RDW 14.4 % (11.9-15.9); WHITE BLOOD COUNT 14.6 K/mm3 (4.0-10.0)
[2020-09-23] MEDS ORDERED: ACETAMINOPHEN INJECTION 100 ML IVPB ONE (19:14)
[2020-09-23] MEDS ORDERED: METOCLOPRAMIDE HCL INJECTION 10 MG/2 ML VIAL ONE (19:14)
[2020-09-23 19:16] LABS: INR 1.08 (0.83-1.09); PROTHROMBIN TIME (PATIENT) 13.3 SEC (9.7-13.0)
[2020-09-23 19:19] LABS: ACTIVATED PTT 31.4 SECONDS (25.2-36.5)
[2020-09-23] MEDS ORDERED: PANTOPRAZOLE SODIUM 40 MG VIAL ONE (19:31)
[2020-09-23 19:35] LABS: CHLORIDE 111 mmol/L (98-107); SODIUM 149 mmol/L (136-145)
[2020-09-23 19:37] LABS: ALBUMIN 2.6 g/dl (3.4-5.0); ANION GAP 8 MMOL/L (8-16); BLOOD UREA NITROGEN 30.9 mg/dL (7-18); CALCIUM 8.9 mg/dL (8.5-10.1); CO2 30 mmol/L (21-32)
[2020-09-23 19:38] LABS: GLUCOSE,RANDOM 134 mg/dL (74-106); LIPASE 50 U/L (73-393)
[2020-09-23 19:40] LABS: SGPT/ALT 15 U/L (13-61)
[2020-09-23 19:41] LABS: SGOT/AST 17 U/L (15-37)
[2020-09-23 19:42] LABS: BILIRUBIN,TOTAL 0.2 mg/dL (0.2-1); TOT PROT 6.3 g/dl (6.4-8.2)
[2020-09-23 19:43] LABS: ALK PHOS 99 U/L (45-117)
[2020-09-24] MEDS ORDERED: morphine CARPU-JECT 2 MG/1 ML DISP.SYRIN IVPUSH PRN (01:52)
[2020-09-24] MEDS ORDERED: SODIUM CHLORIDE 1,000 ML IV SCH (02:00)
[2020-09-24] MEDS ORDERED: ACETAMINOPHEN 1000 MG/100 ML VIAL (NON FORMULARY) IVPB PRN (02:01)
[2020-09-24] MEDS ORDERED: NITROGLYCERIN 2% OINTMENT - 1GM PACKET TD PRN (02:02)
[2020-09-24] MEDS ORDERED: MORPHINE SULFATE 2 MG/ML VIAL ONE (02:12)
[2020-09-24] MEDS: SODIUM CHLORIDE 1,000 ML IV SCH ×2 (03:21→14:41)
[2020-09-24] MEDS ORDERED: INSULIN (NOVOLOG) ASPART 100 UNITS/ML 10ML VIAL ONE ×2 (06:01→20:53)
[2020-09-24] MEDS: INSULIN SLIDING SCALE (NOVOLOG) 1 VIAL SQ SCH ×4 (06:03→21:15)
[2020-09-24] MEDS: MORPHINE SULFATE 2 MG/ML VIAL IVPUSH PRN ×3 (06:04→20:10)
[2020-09-24] MEDS: METOCLOPRAMIDE HCL 10 MG TABLET (FP) PO SCH ×3 (06:04→17:07)
[2020-09-24 07:23] LABS: HEMATOCRIT 22.8 % (35.4-49); HEMOGLOBIN 7.4 GM/dL (11.7-16.9); MCH 29.9 pg (25.7-33.7); MCHC 32.7 g/dl (32.0-35.9); MEAN CELL VOLUME 91.3 fl (80-96); MEAN PLT VOLUME 8.7 fl (7.5-11.1); PLATELET COUNT 300 K/MM3 (134-434); RBC 2.49 M/mm3 (4.00-5.60); RDW 13.8 % (11.9-15.9); WHITE BLOOD COUNT 12.6 K/mm3 (4.0-10.0)
[2020-09-24 07:54] LABS: ALBUMIN 2.2 g/dl (3.4-5.0); CALCIUM 7.8 mg/dL (8.5-10.1); IRON SERUM 31 ug/dL (50-175); MAGNESIUM 2.1 mg/dL (1.8-2.4)
[2020-09-24 07:55] LABS: BLOOD UREA NITROGEN 31.3 mg/dL (7-18)
[2020-09-24] MEDS ORDERED: PT OWN MED DRAWER 7, Y5N ONE (07:55)
[2020-09-24 07:56] LABS: TOTAL IRON BINDING CAPACITY 313 ug/dL (250-450)
[2020-09-24 07:57] LABS: CREATININE 3.8 mg/dL (0.55-1.3); PHOSPHOROUS 3.9 mg/dL (2.5-4.9)
[2020-09-24 07:59] LABS: BILIRUBIN,TOTAL 0.2 mg/dL (0.2-1)
[2020-09-24 08:00] LABS: TOT PROT 5.1 g/dl (6.4-8.2)
[2020-09-24] MEDS: NIFEdipine E.R. 90 MG TABLET PO SCH (09:16)
[2020-09-24] MEDS: CARVEDILOL 6.25 MG TABLET (FP) PO SCH ×2 (09:16→21:14)
[2020-09-24] MEDS: PANTOPRAZOLE SODIUM 40 MG VIAL IVPUSH SCH (09:16)
[2020-09-24] MEDS: LIPASE/PROTEASE/AMYLASE 36,000 UNIT CAPSULE PO SCH ×3 (09:16→17:07)
[2020-09-24] MEDS: APIXABAN 5 MG TABLET PO SCH ×2 (09:16→21:14)
[2020-09-25] LABS: EPI CELLS 22 /uL (0-25.1); HYALINE CASTS 7 /uL (0-3.1); URINE APPEARANCE CLEAR; URINE BACTERIA 54 /uL (0-1359); URINE BILIRUBIN NEGATIVE (NEGATIVE); URINE COLOR YELLOW; URINE GLUCOSE (UA) TRACE (NEGATIVE); URINE KETONE NEGATIVE (NEGATIVE); URINE LEUK ESTERASE NEGATIVE (NEGATIVE); URINE NITRITE NEGATIVE (NEGATIVE); URINE PROTEIN 4+ (NEGATIVE); URINE RBC 15 /uL (0-23.9); URINE UROBILINOGEN 0.2 mg/dL (0.2-1.0); URINE WBC 17 /uL (0-25.8)
[2020-09-25] MEDS: MORPHINE SULFATE 2 MG/ML VIAL IVPUSH PRN ×4 (00:37→22:54)
[2020-09-25] MEDS: SODIUM CHLORIDE 1,000 ML IV SCH ×2 (03:01→18:13)
[2020-09-25] MEDS: METOCLOPRAMIDE HCL 10 MG TABLET (FP) PO SCH ×3 (06:04→18:09)
[2020-09-25] MEDS: INSULIN SLIDING SCALE (NOVOLOG) 1 VIAL SQ SCH ×4 (06:06→21:23)
[2020-09-25] MEDS: LIPASE/PROTEASE/AMYLASE 36,000 UNIT CAPSULE PO SCH ×3 (10:10→18:08)
[2020-09-25] MEDS: APIXABAN 5 MG TABLET PO SCH ×2 (10:10→21:21)
[2020-09-25] MEDS: CARVEDILOL 6.25 MG TABLET (FP) PO SCH ×2 (10:10→21:21)
[2020-09-25] MEDS: PANTOPRAZOLE SODIUM 40 MG VIAL IVPUSH SCH (10:10)
[2020-09-25] MEDS: NIFEdipine E.R. 90 MG TABLET PO SCH (10:10)
[2020-09-25] MEDS: SUCRALFATE 1 GM/10 ML UNIT DOSE CUPS PO SCH ×3 (13:09→21:21)
[2020-09-25 15:13] LABS: BASO % 0.7 % (0-2.0); EOS % 1.2 % (0-4.5); HEMATOCRIT 21.5 % (35.4-49); HEMOGLOBIN 7.2 GM/dL (11.7-16.9); LYMPH % 28.8 % (8-40); MCH 30.1 pg (25.7-33.7); MCHC 33.5 g/dl (32.0-35.9); MEAN PLT VOLUME 8.7 fl (7.5-11.1); MONO % 7.5 % (3.8-10.2); NEUT % 61.8 % (42.8-82.8); PLATELET COUNT 286 K/MM3 (134-434); RBC 2.39 M/mm3 (4.00-5.60); RDW 13.9 % (11.9-15.9); WHITE BLOOD COUNT 8.8 K/mm3 (4.0-10.0)
[2020-09-25 15:39] LABS: CALCIUM 7.5 mg/dL (8.5-10.1)
[2020-09-25 15:40] LABS: BLOOD UREA NITROGEN 27.8 mg/dL (7-18)
[2020-09-25 15:43] LABS: CREATININE 3.7 mg/dL (0.55-1.3)
[2020-09-25 15:44] LABS: BILIRUBIN,TOTAL 0.3 mg/dL (0.2-1); TOT PROT 4.6 g/dl (6.4-8.2)
[2020-09-26] MEDS: SODIUM CHLORIDE 1,000 ML IV SCH ×2 (06:19→20:56)
[2020-09-26] MEDS: INSULIN SLIDING SCALE (NOVOLOG) 1 VIAL SQ SCH ×4 (06:20→21:02)
[2020-09-26] MEDS: METOCLOPRAMIDE HCL 10 MG TABLET (FP) PO SCH ×3 (06:20→17:19)
[2020-09-26] MEDS: MORPHINE SULFATE 2 MG/ML VIAL IVPUSH PRN ×3 (06:28→17:23)
[2020-09-26 08:12] LABS: BASO % 0.3 % (0-2.0); EOS % 0.9 % (0-4.5); HEMATOCRIT 21.5 % (35.4-49); HEMOGLOBIN 7.4 GM/dL (11.7-16.9); LYMPH % 33.4 % (8-40); MCHC 34.7 g/dl (32.0-35.9); MEAN CELL VOLUME 89.3 fl (80-96); MEAN PLT VOLUME 8.3 fl (7.5-11.1); MONO % 9.2 % (3.8-10.2); NEUT % 56.2 % (42.8-82.8); PLATELET COUNT 297 K/MM3 (134-434); RDW 13.7 % (11.9-15.9); WHITE BLOOD COUNT 8.9 K/mm3 (4.0-10.0)
[2020-09-26 08:13] LABS: ALBUMIN 2.2 g/dl (3.4-5.0); BLOOD UREA NITROGEN 30.2 mg/dL (7-18); CALCIUM 7.2 mg/dL (8.5-10.1)
[2020-09-26 08:16] LABS: CREATININE 3.9 mg/dL (0.55-1.3)
[2020-09-26 08:17] LABS: BILIRUBIN,TOTAL 0.1 mg/dL (0.2-1)
[2020-09-26] MEDS ORDERED: PT OWN MED DRAWER 7, Y5N ONE (09:02)
[2020-09-26] MEDS: PANTOPRAZOLE SODIUM 40 MG VIAL IVPUSH SCH (09:15)
[2020-09-26] MEDS: CARVEDILOL 6.25 MG TABLET (FP) PO SCH ×2 (09:15→21:01)
[2020-09-26] MEDS: SUCRALFATE 1 GM/10 ML UNIT DOSE CUPS PO SCH ×4 (09:15→21:01)
[2020-09-26] MEDS: LIPASE/PROTEASE/AMYLASE 36,000 UNIT CAPSULE PO SCH ×3 (09:15→17:19)
[2020-09-26] MEDS: APIXABAN 5 MG TABLET PO SCH ×2 (09:15→21:02)
[2020-09-26] MEDS: NIFEdipine E.R. 90 MG TABLET PO SCH (09:16)
[2020-09-26 18:53] VITALS: BMI 23.4
[2020-09-27] MEDS: MORPHINE SULFATE 2 MG/ML VIAL IVPUSH PRN ×3 (01:33→10:21)
[2020-09-27] MEDS: METOCLOPRAMIDE HCL 10 MG TABLET (FP) PO SCH (06:17)
[2020-09-27] MEDS: INSULIN SLIDING SCALE (NOVOLOG) 1 VIAL SQ SCH ×4 (06:17→21:14)
[2020-09-27 08:00] LABS: BASO % 0.4 % (0-2.0); EOS % 1.2 % (0-4.5); HEMATOCRIT 20.1 % (35.4-49); LYMPH % 33.5 % (8-40); MCH 30.5 pg (25.7-33.7); MCHC 33.9 g/dl (32.0-35.9); MEAN CELL VOLUME 89.8 fl (80-96); MEAN PLT VOLUME 8.3 fl (7.5-11.1); MONO % 8.2 % (3.8-10.2); NEUT % 56.7 % (42.8-82.8); PLATELET COUNT 268 K/MM3 (134-434); RBC 2.24 M/mm3 (4.00-5.60); RDW 13.7 % (11.9-15.9)
[2020-09-27] MEDS ORDERED: PT OWN MED DRAWER 7, Y5N ONE ×2 (08:14→08:44)
[2020-09-27 08:16] LABS: HEMOGLOBIN 6.8 GM/dL (11.7-16.9)
[2020-09-27 08:28] LABS: CALCIUM 7.5 mg/dL (8.5-10.1)
[2020-09-27 08:29] LABS: BLOOD UREA NITROGEN 28.5 mg/dL (7-18); MAGNESIUM 1.9 mg/dL (1.8-2.4)
[2020-09-27 08:32] LABS: CREATININE 3.6 mg/dL (0.55-1.3)
[2020-09-27 08:33] LABS: BILIRUBIN,TOTAL 0.1 mg/dL (0.2-1); TOT PROT 4.7 g/dl (6.4-8.2)
[2020-09-27] MEDS: SODIUM CHLORIDE 1,000 ML IV SCH ×2 (08:48→10:19)
[2020-09-27] MEDS: LIPASE/PROTEASE/AMYLASE 36,000 UNIT CAPSULE PO SCH ×3 (08:48→17:04)
[2020-09-27] MEDS ORDERED: POLYETHYLENE GLYCOL 3350 119 GM BTL PO ONE (10:09)
[2020-09-27] MEDS ORDERED: METOCLOPRAMIDE HCL 10 MG TABLET (FP) PO PRN (10:20)
[2020-09-27] MEDS: PANTOPRAZOLE SODIUM 40 MG VIAL IVPUSH SCH (10:20)
[2020-09-27] MEDS: NIFEdipine E.R. 90 MG TABLET PO SCH (10:20)
[2020-09-27] MEDS: CARVEDILOL 6.25 MG TABLET (FP) PO SCH ×2 (10:20→21:14)
[2020-09-27] MEDS: APIXABAN 5 MG TABLET PO SCH ×2 (10:20→21:14)
[2020-09-27] MEDS: SUCRALFATE 1 GM/10 ML UNIT DOSE CUPS PO SCH ×4 (10:20→21:14)
[2020-09-27] MEDS: DOCUSATE SODIUM 100 MG CAPSULE (FP) PO SCH ×2 (10:20→21:14)
[2020-09-27 11:13] LABS: BASO % 0.3 % (0-2.0); EOS % 0.9 % (0-4.5); HEMATOCRIT 21.8 % (35.4-49); HEMOGLOBIN 7.5 GM/dL (11.7-16.9); LYMPH % 32.8 % (8-40); MCH 30.8 pg (25.7-33.7); MCHC 34.3 g/dl (32.0-35.9); MEAN CELL VOLUME 89.7 fl (80-96); MEAN PLT VOLUME 8.2 fl (7.5-11.1); MONO % 7.7 % (3.8-10.2); NEUT % 58.3 % (42.8-82.8); PLATELET COUNT 304 K/MM3 (134-434); RBC 2.43 M/mm3 (4.00-5.60); RDW 13.5 % (11.9-15.9); WHITE BLOOD COUNT 8.7 K/mm3 (4.0-10.0)
[2020-09-27] MEDS ORDERED: ACETAMINOPHEN 325 MG TABLET (FP) PO PRN (15:03)
[2020-09-27] MEDS ORDERED: ACETAMINOPHEN 500 MG TABLET (FP) PO PRN (15:08)
[2020-09-28] MEDS: SODIUM CHLORIDE 1,000 ML IV SCH (06:41)
[2020-09-28] MEDS: INSULIN SLIDING SCALE (NOVOLOG) 1 VIAL SQ SCH ×2 (06:44→11:59)
[2020-09-28 08:02] LABS: BASO % 0.3 % (0-2.0); EOS % 1.9 % (0-4.5); HEMATOCRIT 22.2 % (35.4-49); HEMOGLOBIN 7.6 GM/dL (11.7-16.9); LYMPH % 29.9 % (8-40); MCH 30.7 pg (25.7-33.7); MEAN CELL VOLUME 90.4 fl (80-96); MEAN PLT VOLUME 8.3 fl (7.5-11.1); NEUT % 59.9 % (42.8-82.8); PLATELET COUNT 296 K/MM3 (134-434); RBC 2.46 M/mm3 (4.00-5.60); WHITE BLOOD COUNT 7.8 K/mm3 (4.0-10.0)
[2020-09-28 08:21] LABS: CALCIUM 7.9 mg/dL (8.5-10.1)
[2020-09-28 08:22] LABS: ALBUMIN 2.1 g/dl (3.4-5.0); BLOOD UREA NITROGEN 30.7 mg/dL (7-18)
[2020-09-28 08:25] LABS: CREATININE 3.8 mg/dL (0.55-1.3)
[2020-09-28 08:26] LABS: BILIRUBIN,TOTAL 0.3 mg/dL (0.2-1); TOT PROT 4.8 g/dl (6.4-8.2)
[2020-09-28] MEDS: SUCRALFATE 1 GM/10 ML UNIT DOSE CUPS PO SCH (09:26)
[2020-09-28] MEDS: CARVEDILOL 6.25 MG TABLET (FP) PO SCH (09:27)
[2020-09-28] MEDS: NIFEdipine E.R. 90 MG TABLET PO SCH (09:27)
[2020-09-28] MEDS: APIXABAN 5 MG TABLET PO SCH (09:27)
[2020-09-28] MEDS: DOCUSATE SODIUM 100 MG CAPSULE (FP) PO SCH (09:27)
[2020-09-28] MEDS: PANTOPRAZOLE SODIUM 40 MG VIAL IVPUSH SCH (09:33)
[2020-09-28] MEDS ORDERED: PT OWN MED DRAWER 7, Y5N ONE (10:14)
[2020-09-28] MEDS: LIPASE/PROTEASE/AMYLASE 36,000 UNIT CAPSULE PO SCH ×2 (10:23→11:52)
[2020-09-28] MEDS ORDERED: LOSARTAN POTASSIUM 25 MG TABLET PO SCH (12:30)
[2020-09-28 15:10] VITALS: PULSE 74; TEMP 97.9
[2020-09-28 15:12] VITALS: BP 114/60
[2020-09-28] MEDS ORDERED: INSULIN (NOVOLOG) ASPART 100 UNITS/ML 10ML VIAL ONE (17:44)
== END 2020-09-28 17:53 | disposition home or self-care (01) | DRG 74 ==
LOC: JER 17:15 → JERBED 22:01 → J7W 09-24 03:53
PROVIDERS: ADMIT Internal Medicine; ATTEND Nurse Practitioner Family
DX: E11.43 Type 2 diabetes mellitus with diabetic autonomic (poly)neuropathy (principal); I50.32 Chronic diastolic (congestive) heart failure; I13.0 Hypertensive heart and chronic kidney disease with heart failure and stage 1 through stage 4 chronic kidney disease, or unspecified chronic kidney disease; N17.9 Acute kidney failure, unspecified; E87.0 Hyperosmolality and hypernatremia; K31.84 Gastroparesis; N18.9 Chronic kidney disease, unspecified; E78.5 Hyperlipidemia, unspecified; E11.65 Type 2 diabetes mellitus with hyperglycemia; R11.2 Nausea with vomiting, unspecified; N40.0 Benign prostatic hyperplasia without lower urinary tract symptoms; I16.0 Hypertensive urgency; D72.829 Elevated white blood cell count, unspecified; E86.0 Dehydration; Z79.4 Long term (current) use of insulin
CPT/HCPCS: 36415; 71045-TC-FY; 80053; 81003; 82550; 82553; 82962; 83036; 83540; 83550; 83605; 83690; 83735; 84100; 84436; 84443; 84484; 85025; 85027; 85610; 85730; 93005; 93010; 99285-25; C9803; J0131; U0003; U0005

== ENCOUNTER 2020-10-11 15:55 | Inpatient (IN) | payer OTHER ==
[2020-10-11 16:58] LABS: HEMATOCRIT 30.8 % (35.4-49); HEMOGLOBIN 10.2 GM/dL (11.7-16.9); MCH 29.5 pg (25.7-33.7); MCHC 33.3 g/dl (32.0-35.9); MEAN CELL VOLUME 88.7 fl (80-96); PLATELET COUNT 299 K/MM3 (134-434); RBC 3.47 M/mm3 (4.00-5.60); RDW 15.1 % (11.9-15.9); WHITE BLOOD COUNT 12.6 K/mm3 (4.0-10.0)
[2020-10-11 17:05] LABS: INR 0.95 (0.83-1.09); PROTHROMBIN TIME (PATIENT) 11.7 SEC (9.7-13.0)
[2020-10-11 17:27] LABS: CHLORIDE 113 mmol/L (98-107); SODIUM 149 mmol/L (136-145)
[2020-10-11 17:30] LABS: ANION GAP 9 MMOL/L (8-16); BLOOD UREA NITROGEN 34.9 mg/dL (7-18); CO2 27 mmol/L (21-32); GLUCOSE,RANDOM 156 mg/dL (74-106)
[2020-10-11] MEDS ORDERED: SODIUM CHLORIDE 0.9% 500 ML INFUS.BAG IV ONE (17:32)
[2020-10-11] MEDS ORDERED: ACETAMINOPHEN 1000 MG/100 ML VIAL (NON FORMULARY) IVPB ONE (17:32)
[2020-10-11] MEDS ORDERED: METOCLOPRAMIDE HCL INJECTION 10 MG/2 ML VIAL IVPUSH ONE (17:32)
[2020-10-11 17:33] LABS: CREATININE 4.5 mg/dL (0.55-1.3); SGOT/AST 21 U/L (15-37); SGPT/ALT 17 U/L (13-61)
[2020-10-11 17:35] LABS: BILIRUBIN,TOTAL 0.2 mg/dL (0.2-1)
[2020-10-11] MEDS ORDERED: ACETAMINOPHEN INJECTION 100 ML IVPB ONE (17:38)
[2020-10-11] MEDS ORDERED: METOCLOPRAMIDE HCL INJECTION 10 MG/2 ML VIAL ONE (17:38)
[2020-10-11 17:49] LABS: ALBUMIN 3.2 g/dl (3.4-5.0); ALK PHOS 123 U/L (45-117); CALCIUM 9.4 mg/dL (8.5-10.1); TOT PROT 7.1 g/dl (6.4-8.2)
[2020-10-11] MEDS ORDERED: PANTOPRAZOLE SODIUM 40 MG VIAL IVPUSH ONE (19:28)
[2020-10-11] MEDS ORDERED: PANTOPRAZOLE SODIUM 40 MG VIAL ONE ×2 (19:59→23:32)
[2020-10-11] MEDS ORDERED: morphine CARPU-JECT 2 MG/1 ML DISP.SYRIN IVPUSH ONE (20:24)
[2020-10-11] MEDS ORDERED: MORPHINE SULFATE 2 MG/ML VIAL ONE (20:29)
[2020-10-11] MEDS ORDERED: CARVEDILOL 6.25 MG TABLET (FP) PO ONE (21:14)
[2020-10-11] MEDS ORDERED: CARVEDILOL 3.125 MG TABLET (FP) ONE (21:26)
[2020-10-11] MEDS ORDERED: METOCLOPRAMIDE HCL INJECTION 10 MG/2 ML VIAL IVPUSH PRN (22:25)
[2020-10-11] MEDS ORDERED: LOSARTAN POTASSIUM 25 MG TABLET PO SCH (22:32)
[2020-10-11] MEDS ORDERED: NIFEdipine E.R. 90 MG TABLET PO SCH (22:32)
[2020-10-11] MEDS: PANTOPRAZOLE SODIUM 40 MG VIAL IVPUSH SCH (23:28)
[2020-10-11] MEDS: SODIUM CHLORIDE 1,000 ML IV SCH (23:29)
[2020-10-12] MEDS ORDERED: ACETAMINOPHEN 1000 MG/100 ML VIAL (NON FORMULARY) IVPB ONE (01:15)
[2020-10-12] MEDS ORDERED: NIFEdipine E.R. 90 MG TABLET PO SCH ×2 (01:24→10:00)
[2020-10-12] MEDS ORDERED: LOSARTAN POTASSIUM 25 MG TABLET PO SCH ×2 (01:24→10:00)
[2020-10-12] MEDS: LOSARTAN POTASSIUM 25 MG TABLET PO SCH (02:01)
[2020-10-12] MEDS: NIFEdipine E.R. 90 MG TABLET PO SCH (02:02)
[2020-10-12] MEDS ORDERED: LOSARTAN POTASSIUM 25 MG TABLET PO ONE (03:17)
[2020-10-12 05:50] VITALS: BMI 23.0
[2020-10-12] MEDS ORDERED: RIFAXIMIN 550 MG TABLET (UD) PO SCH (06:00)
[2020-10-12] MEDS: ACETAMINOPHEN 325 MG TABLET (FP) PO PRN ×3 (06:01→21:15)
[2020-10-12] MEDS: INSULIN SLIDING SCALE (NOVOLOG) 1 VIAL SQ SCH ×4 (06:05→21:16)
[2020-10-12 07:43] LABS: BASO % 0.4 % (0-2.0); EOS % 0.5 % (0-4.5); HEMATOCRIT 26.1 % (35.4-49); HEMOGLOBIN 8.3 GM/dL (11.7-16.9); LYMPH % 19.4 % (8-40); MCHC 31.9 g/dl (32.0-35.9); MEAN CELL VOLUME 90.9 fl (80-96); MEAN PLT VOLUME 8.3 fl (7.5-11.1); MONO % 7.1 % (3.8-10.2); NEUT % 72.6 % (42.8-82.8); PLATELET COUNT 243 K/MM3 (134-434); RBC 2.87 M/mm3 (4.00-5.60); RDW 14.8 % (11.9-15.9); WHITE BLOOD COUNT 12.7 K/mm3 (4.0-10.0)
[2020-10-12 07:55] LABS: CHLORIDE 116 mmol/L (98-107); SODIUM 149 mmol/L (136-145)
[2020-10-12 07:57] LABS: ALBUMIN 2.7 g/dl (3.4-5.0); CALCIUM 8.5 mg/dL (8.5-10.1)
[2020-10-12 07:58] LABS: ANION GAP 7 MMOL/L (8-16); BLOOD UREA NITROGEN 35.9 mg/dL (7-18); CO2 26 mmol/L (21-32); GLUCOSE,RANDOM 125 mg/dL (74-106); MAGNESIUM 2.1 mg/dL (1.8-2.4)
[2020-10-12] MEDS ORDERED: MORPHINE SULFATE 2 MG/ML VIAL IVPUSH ONE (08:00)
[2020-10-12 08:01] LABS: CREATININE 4.3 mg/dL (0.55-1.3); PHOSPHOROUS 4.7 mg/dL (2.5-4.9); SGOT/AST 17 U/L (15-37); SGPT/ALT 13 U/L (13-61)
[2020-10-12 08:02] LABS: BILIRUBIN,TOTAL 0.3 mg/dL (0.2-1); TOT PROT 5.8 g/dl (6.4-8.2)
[2020-10-12 08:05] LABS: ALK PHOS 92 U/L (45-117)
[2020-10-12] MEDS: PANTOPRAZOLE SODIUM 40 MG VIAL IVPUSH SCH ×2 (10:52→21:15)
[2020-10-12] MEDS: SODIUM CHLORIDE 1,000 ML IV SCH (10:59)
[2020-10-12] MEDS: SODIUM CHLORIDE 0.45% 1,000 ML IV SCH (15:11)
[2020-10-12] MEDS: MORPHINE SULFATE 2 MG/ML VIAL IVPUSH PRN ×2 (15:59→23:58)
[2020-10-12 16:21] LABS: HEMOGLOBIN 7.6 GM/dL (11.7-16.9); MCH 29.4 pg (25.7-33.7); MCHC 32.9 g/dl (32.0-35.9); MEAN CELL VOLUME 89.4 fl (80-96); MEAN PLT VOLUME 8.2 fl (7.5-11.1); PLATELET COUNT 220 10^3/uL (134-434); RBC 2.58 M/mm3 (4.00-5.60); RDW 14.8 % (11.9-15.9); WHITE BLOOD COUNT 11.6 K/mm3 (4.0-10.0)
[2020-10-12] MEDS ORDERED: INSULIN (NOVOLOG) ASPART 100 UNITS/ML 10ML VIAL ONE (20:39)
[2020-10-13] MEDS: SODIUM CHLORIDE 0.45% 1,000 ML IV SCH ×2 (04:15→15:33)
[2020-10-13] MEDS: INSULIN SLIDING SCALE (NOVOLOG) 1 VIAL SQ SCH ×4 (06:29→21:09)
[2020-10-13 07:53] LABS: HEMATOCRIT 24.1 % (35.4-49); MCH 29.7 pg (25.7-33.7); MCHC 33.3 g/dl (32.0-35.9); MEAN CELL VOLUME 89.1 fl (80-96); MEAN PLT VOLUME 8.3 fl (7.5-11.1); PLATELET COUNT 221 10^3/uL (134-434); RBC 2.71 M/mm3 (4.00-5.60); RDW 14.7 % (11.9-15.9); WHITE BLOOD COUNT 9.5 K/mm3 (4.0-10.0)
[2020-10-13 08:03] LABS: CALCIUM 7.9 mg/dL (8.5-10.1)
[2020-10-13] MEDS: MORPHINE SULFATE 2 MG/ML VIAL IVPUSH PRN (08:03)
[2020-10-13 08:07] LABS: CREATININE 4.1 mg/dL (0.55-1.3)
[2020-10-13] MEDS: PANTOPRAZOLE SODIUM 40 MG VIAL IVPUSH SCH ×2 (09:06→21:08)
[2020-10-13] MEDS: NIFEdipine E.R. 90 MG TABLET PO SCH (09:06)
[2020-10-13] MEDS: LOSARTAN POTASSIUM 25 MG TABLET PO SCH (09:07)
[2020-10-13] MEDS ORDERED: hydrALAZINE HCL 10 MG TABLET PO ONE (10:47)
[2020-10-13] MEDS ORDERED: PT OWN MED DRAWER 7, Y5N ONE ×3 (11:21→20:56)
[2020-10-13] MEDS: ACETAMINOPHEN 1000 MG/100 ML VIAL (NON FORMULARY) IVPB PRN ×2 (15:25→21:09)
[2020-10-13] MEDS: AMITRIPTYLINE HCL 25 MG TABLET PO SCH (21:08)
[2020-10-13] MEDS ORDERED: MORPHINE SULFATE 2 MG/ML VIAL IVPUSH ONE (22:17)
[2020-10-14] MEDS: SODIUM CHLORIDE 0.45% 1,000 ML IV SCH (05:47)
[2020-10-14] MEDS: ACETAMINOPHEN 1000 MG/100 ML VIAL (NON FORMULARY) IVPB PRN (05:47)
[2020-10-14] MEDS: INSULIN SLIDING SCALE (NOVOLOG) 1 VIAL SQ SCH ×4 (06:05→21:52)
[2020-10-14] MEDS ORDERED: DOCUSATE SODIUM 100 MG CAPSULE (FP) PO ONE (07:21)
[2020-10-14 07:56] LABS: BASO % 0.4 % (0-2.0); EOS % 1.7 % (0-4.5); HEMATOCRIT 23.5 % (35.4-49); HEMOGLOBIN 7.9 GM/dL (11.7-16.9); LYMPH % 42.1 % (8-40); MCH 29.9 pg (25.7-33.7); MCHC 33.7 g/dl (32.0-35.9); MEAN CELL VOLUME 88.7 fl (80-96); MEAN PLT VOLUME 8.1 fl (7.5-11.1); MONO % 7.5 % (3.8-10.2); NEUT % 48.3 % (42.8-82.8); PLATELET COUNT 224 10^3/uL (134-434); RBC 2.65 M/mm3 (4.00-5.60); RDW 14.5 % (11.9-15.9); WHITE BLOOD COUNT 7.7 K/mm3 (4.0-10.0)
[2020-10-14 08:21] LABS: ALBUMIN 2.3 g/dl (3.4-5.0); BLOOD UREA NITROGEN 27.9 mg/dL (7-18); CALCIUM 8.1 mg/dL (8.5-10.1); MAGNESIUM 1.8 mg/dL (1.8-2.4)
[2020-10-14 08:23] LABS: CREATININE 3.8 mg/dL (0.55-1.3); PHOSPHOROUS 4.6 mg/dL (2.5-4.9)
[2020-10-14 08:25] LABS: BILIRUBIN,TOTAL 0.2 mg/dL (0.2-1); TOT PROT 5.2 g/dl (6.4-8.2)
[2020-10-14] MEDS ORDERED: PT OWN MED DRAWER 7, Y5N ONE ×4 (09:12→10:21)
[2020-10-14] MEDS: PANTOPRAZOLE SODIUM 40 MG VIAL IVPUSH SCH ×2 (09:18→21:42)
[2020-10-14] MEDS: NIFEdipine E.R. 90 MG TABLET PO SCH (09:18)
[2020-10-14] MEDS: LOSARTAN POTASSIUM 25 MG TABLET PO SCH (09:18)
[2020-10-14] MEDS: ERYTHROMYCIN BASE 250 MG TAB PO SCH (10:26)
[2020-10-14] MEDS ORDERED: LOSARTAN POTASSIUM 50 MG TABLET PO SCH (12:31)
[2020-10-14] MEDS: AMITRIPTYLINE HCL 25 MG TABLET PO SCH (21:42)
[2020-10-14] MEDS: CARVEDILOL 6.25 MG TABLET (FP) PO SCH (21:42)
[2020-10-15] MEDS: INSULIN SLIDING SCALE (NOVOLOG) 1 VIAL SQ SCH ×2 (06:08→12:17)
[2020-10-15 07:46] LABS: BASO % 0.3 % (0-2.0); EOS % 1.8 % (0-4.5); HEMATOCRIT 22.9 % (35.4-49); HEMOGLOBIN 7.7 GM/dL (11.7-16.9); LYMPH % 37.1 % (8-40); MCHC 33.6 g/dl (32.0-35.9); MEAN CELL VOLUME 89.2 fl (80-96); MONO % 8.4 % (3.8-10.2); NEUT % 52.4 % (42.8-82.8); PLATELET COUNT 222 10^3/uL (134-434); RBC 2.57 M/mm3 (4.00-5.60); RDW 14.7 % (11.9-15.9); WHITE BLOOD COUNT 7.4 K/mm3 (4.0-10.0)
[2020-10-15 08:09] LABS: ALBUMIN 2.3 g/dl (3.4-5.0); BLOOD UREA NITROGEN 32.3 mg/dL (7-18); MAGNESIUM 1.8 mg/dL (1.8-2.4)
[2020-10-15 08:12] LABS: CREATININE 4.1 mg/dL (0.55-1.3); PHOSPHOROUS 4.9 mg/dL (2.5-4.9)
[2020-10-15 08:13] LABS: BILIRUBIN,TOTAL 0.2 mg/dL (0.2-1)
[2020-10-15 08:14] LABS: TOT PROT 5.1 g/dl (6.4-8.2)
[2020-10-15] MEDS: CARVEDILOL 6.25 MG TABLET (FP) PO SCH (09:30)
[2020-10-15] MEDS: NIFEdipine E.R. 90 MG TABLET PO SCH (09:30)
[2020-10-15] MEDS: PANTOPRAZOLE SODIUM 40 MG VIAL IVPUSH SCH (09:30)
[2020-10-15] MEDS: ERYTHROMYCIN BASE 250 MG TAB PO SCH (10:20)
[2020-10-15] MEDS ORDERED: PT OWN MED DRAWER 7, Y5N ONE (10:25)
[2020-10-15 15:08] VITALS: BP 147/97; PULSE 89; TEMP 98.5
== END 2020-10-15 16:48 | disposition home or self-care (01) | DRG 74 ==
LOC: JER 15:55 → JERBED 21:10 → J8W 10-12 00:35
PROVIDERS: ADMIT Hospitalist; ATTEND Internal Medicine
DX: E11.43 Type 2 diabetes mellitus with diabetic autonomic (poly)neuropathy (principal); I13.0 Hypertensive heart and chronic kidney disease with heart failure and stage 1 through stage 4 chronic kidney disease, or unspecified chronic kidney disease; I50.32 Chronic diastolic (congestive) heart failure; N17.9 Acute kidney failure, unspecified; E87.0 Hyperosmolality and hypernatremia; R64 Cachexia; N18.4 Chronic kidney disease, stage 4 (severe); K92.0 Hematemesis; K31.84 Gastroparesis; E78.5 Hyperlipidemia, unspecified; E11.22 Type 2 diabetes mellitus with diabetic chronic kidney disease; N18.9 Chronic kidney disease, unspecified; Z86.718 Personal history of other venous thrombosis and embolism; Z79.01 Long term (current) use of anticoagulants; Z86.711 Personal history of pulmonary embolism; I16.0 Hypertensive urgency; E86.0 Dehydration; Z79.4 Long term (current) use of insulin; D63.1 Anemia in chronic kidney disease; Z68.25 Body mass index [BMI] 25.0-25.9, adult
CPT/HCPCS: 36415; 71045-TC-FY; 74018-TC-FY; 80048; 80053; 82272; 82962; 83605; 83735; 84100; 84484; 85025; 85027; 85610; 85730; 86850; 86900; 86901; 86922; 93005; 93010; 99285-25; C9803; J0131; U0003; U0005

== ENCOUNTER 2020-10-28 18:02 | Inpatient (IN) | payer OTHER ==
[2020-10-28] MEDS ORDERED: METOCLOPRAMIDE HCL INJECTION 10 MG/2 ML VIAL IVPB ONE (19:26)
[2020-10-28] MEDS ORDERED: ACETAMINOPHEN 1000 MG/100 ML VIAL (NON FORMULARY) IVPB ONE (19:26)
[2020-10-28] MEDS ORDERED: FAMOTIDINE 20 MG/50 ML IVPB 20 MG/50 ML MG IVPB ONE ×2 (19:26→19:34)
[2020-10-28] MEDS ORDERED: LACTATED RINGERS SOLUTION 1000 ML INFUS.BAG IV ONE (19:33)
[2020-10-28] MEDS ORDERED: ACETAMINOPHEN INJECTION 100 ML IVPB ONE (19:34)
[2020-10-28] MEDS ORDERED: METOCLOPRAMIDE HCL INJECTION 10 MG/2 ML VIAL ONE (19:34)
[2020-10-28 20:15] LABS: BASO % 0.7 % (0-2.0); EOS % 0.3 % (0-4.5); HEMATOCRIT 28.2 % (35.4-49); HEMOGLOBIN 9.3 GM/dL (11.7-16.9); LYMPH % 17.6 % (8-40); MCH 29.1 pg (25.7-33.7); MCHC 32.8 g/dl (32.0-35.9); MEAN CELL VOLUME 88.6 fl (80-96); MEAN PLT VOLUME 8.6 fl (7.5-11.1); NEUT % 76.4 % (42.8-82.8); PLATELET COUNT 284 10^3/uL (134-434); RBC 3.18 M/mm3 (4.00-5.60); RDW 14.8 % (11.9-15.9); WHITE BLOOD COUNT 13.6 K/mm3 (4.0-10.0)
[2020-10-28 20:17] LABS: VENOUS BASE EXCESS 0.4 mmol/L (-2-2); VENOUS O2 SATURATION 65.5 % (70-80); VENOUS PCO2 41.5 mmHg (38-52); VENOUS PH 7.401 (7.310-7.410)
[2020-10-28] MEDS ORDERED: morphine CARPU-JECT 4 MG/1 ML DISP.SYRIN IVPUSH PRN (20:20)
[2020-10-28 20:27] LABS: INR 0.97 (0.83-1.09); PROTHROMBIN TIME (PATIENT) 11.8 SEC (9.7-13.0)
[2020-10-28 20:30] LABS: ACTIVATED PTT 28.3 SECONDS (25.2-36.5)
[2020-10-28 20:35] LABS: CHLORIDE 109 mmol/L (98-107); SODIUM 145 mmol/L (136-145)
[2020-10-28] MEDS ORDERED: morphine SULFATE 4 MG/ML VIAL ONE (20:35)
[2020-10-28 20:37] LABS: CALCIUM 8.8 mg/dL (8.5-10.1)
[2020-10-28 20:38] LABS: ANION GAP 7 MMOL/L (8-16); CO2 29 mmol/L (21-32); GLUCOSE,RANDOM 121 mg/dL (74-106); LIPASE 53 U/L (73-393); MAGNESIUM 2.5 mg/dL (1.8-2.4)
[2020-10-28 20:41] LABS: CREATININE 4.3 mg/dL (0.55-1.3); SGOT/AST 17 U/L (15-37); SGPT/ALT 13 U/L (13-61)
[2020-10-28 20:42] LABS: BILIRUBIN,TOTAL 0.2 mg/dL (0.2-1); TOT PROT 6.4 g/dl (6.4-8.2)
[2020-10-28 20:43] LABS: ALK PHOS 95 U/L (45-117)
[2020-10-28 21:12] LABS: ALBUMIN 3.1 g/dl (3.4-5.0)
[2020-10-28] MEDS ORDERED: CARVEDILOL 6.25 MG TABLET (FP) PO ONE (22:58)
[2020-10-28] MEDS ORDERED: CARVEDILOL 3.125 MG TABLET (FP) ONE (22:59)
[2020-10-28] MEDS ORDERED: morphine CARPU-JECT 4 MG/1 ML DISP.SYRIN IVPUSH ONE (23:44)
[2020-10-28] MEDS ORDERED: NIFEdipine E.R. 90 MG TABLET PO ONE (23:45)
[2020-10-29] MEDS ORDERED: MORPHINE SULFATE 2 MG/ML VIAL ONE (02:17)
[2020-10-29] MEDS ORDERED: NIFEdipine E.R. 30 MG TABLET ONE (02:24)
[2020-10-29] MEDS ORDERED: SODIUM CHLORIDE 1,000 ML IV SCH (02:30)
[2020-10-29] MEDS ORDERED: LOSARTAN POTASSIUM 50 MG TABLET ONE (04:29)
[2020-10-29] MEDS ORDERED: CARVEDILOL 3.125 MG TABLET (FP) ONE (04:29)
[2020-10-29] MEDS ORDERED: morphine SULFATE 4 MG/ML VIAL IVPUSH PRN (04:29)
[2020-10-29] MEDS: LOSARTAN POTASSIUM 50 MG TABLET PO SCH ×2 (04:33→10:00)
[2020-10-29] MEDS: CARVEDILOL 6.25 MG TABLET (FP) PO SCH ×3 (04:33→21:44)
[2020-10-29] MEDS: MORPHINE SULFATE 2 MG/ML VIAL IVPUSH PRN ×2 (05:20→12:15)
[2020-10-29 05:50] VITALS: BMI 23.4
[2020-10-29] MEDS: INSULIN SLIDING SCALE (NOVOLOG) 1 VIAL SQ SCH ×4 (06:20→21:44)
[2020-10-29] MEDS: HEPARIN NA (PORCINE) 5,000 UNITS/ML 1ML VIAL SQ SCH ×3 (06:33→21:44)
[2020-10-29] MEDS: METOCLOPRAMIDE HCL INJECTION 10 MG/2 ML VIAL IVPUSH PRN (08:17)
[2020-10-29 09:02] LABS: BASO % 0.4 % (0-2.0); EOS % 0.8 % (0-4.5); HEMATOCRIT 27.7 % (35.4-49); LYMPH % 21.3 % (8-40); MCH 28.9 pg (25.7-33.7); MCHC 32.6 g/dl (32.0-35.9); MEAN CELL VOLUME 88.8 fl (80-96); MEAN PLT VOLUME 8.3 fl (7.5-11.1); MONO % 6.3 % (3.8-10.2); NEUT % 71.2 % (42.8-82.8); PLATELET COUNT 258 10^3/uL (134-434); RBC 3.12 M/mm3 (4.00-5.60); RDW 14.9 % (11.9-15.9); WHITE BLOOD COUNT 12.5 K/mm3 (4.0-10.0)
[2020-10-29 09:13] LABS: INR 1.02 (0.83-1.09); PROTHROMBIN TIME (PATIENT) 12.5 SEC (9.7-13.0)
[2020-10-29 09:20] LABS: BLOOD UREA NITROGEN 29.6 mg/dL (7-18); CALCIUM 8.9 mg/dL (8.5-10.1); MAGNESIUM 2.3 mg/dL (1.8-2.4)
[2020-10-29 09:21] LABS: ALBUMIN 2.8 g/dl (3.4-5.0)
[2020-10-29 09:24] LABS: CREATININE 4.1 mg/dL (0.55-1.3); PHOSPHOROUS 4.1 mg/dL (2.5-4.9)
[2020-10-29 09:25] LABS: BILIRUBIN,TOTAL 0.2 mg/dL (0.2-1)
[2020-10-29] MEDS: NIFEdipine E.R. 90 MG TABLET PO SCH (10:00)
[2020-10-29] MEDS: PANTOPRAZOLE SODIUM 40 MG VIAL IVPUSH SCH (10:00)
[2020-10-29] MEDS: FERROUS SO4 325 MG TABLET (FP) PO SCH ×2 (10:00→17:01)
[2020-10-29] MEDS: SODIUM CHLORIDE 0.45% 1,000 ML IV SCH (12:22)
[2020-10-29] MEDS: traMADol HCL 50 MG TABLET PO PRN (15:28)
[2020-10-29] MEDS: ACETAMINOPHEN 1000 MG/100 ML VIAL (NON FORMULARY) IVPB PRN (17:29)
[2020-10-29] MEDS ORDERED: NIFEdipine E.R. 90 MG TABLET PO ONE ×2 (22:58→23:45)
[2020-10-30] MEDS: SODIUM CHLORIDE 0.45% 1,000 ML IV SCH ×2 (01:32→14:13)
[2020-10-30] MEDS: traMADol HCL 50 MG TABLET PO PRN ×3 (05:57→22:33)
[2020-10-30] MEDS: HEPARIN NA (PORCINE) 5,000 UNITS/ML 1ML VIAL SQ SCH ×3 (05:57→21:51)
[2020-10-30] MEDS: INSULIN SLIDING SCALE (NOVOLOG) 1 VIAL SQ SCH ×4 (06:02→21:51)
[2020-10-30 07:38] LABS: BASO % 0.4 % (0-2.0); EOS % 1.8 % (0-4.5); HEMATOCRIT 25.7 % (35.4-49); HEMOGLOBIN 8.5 GM/dL (11.7-16.9); MCH 29.5 pg (25.7-33.7); MEAN CELL VOLUME 89.3 fl (80-96); MEAN PLT VOLUME 8.7 fl (7.5-11.1); MONO % 6.5 % (3.8-10.2); NEUT % 54.3 % (42.8-82.8); PLATELET COUNT 232 10^3/uL (134-434); RBC 2.88 M/mm3 (4.00-5.60); RDW 14.3 % (11.9-15.9); WHITE BLOOD COUNT 7.8 K/mm3 (4.0-10.0)
[2020-10-30 08:00] LABS: CALCIUM 7.6 mg/dL (8.5-10.1)
[2020-10-30 08:01] LABS: ALBUMIN 2.5 g/dl (3.4-5.0); BLOOD UREA NITROGEN 31.3 mg/dL (7-18)
[2020-10-30 08:02] LABS: MAGNESIUM 1.9 mg/dL (1.8-2.4)
[2020-10-30 08:04] LABS: CREATININE 3.8 mg/dL (0.55-1.3); PHOSPHOROUS 4.5 mg/dL (2.5-4.9)
[2020-10-30 08:06] LABS: BILIRUBIN,TOTAL 0.2 mg/dL (0.2-1); TOT PROT 5.2 g/dl (6.4-8.2)
[2020-10-30] MEDS: PANTOPRAZOLE SODIUM 40 MG VIAL IVPUSH SCH (09:45)
[2020-10-30] MEDS: ACETAMINOPHEN 1000 MG/100 ML VIAL (NON FORMULARY) IVPB PRN (09:46)
[2020-10-30] MEDS: NIFEdipine E.R. 90 MG TABLET PO SCH (09:46)
[2020-10-30] MEDS: FERROUS SO4 325 MG TABLET (FP) PO SCH ×2 (09:46→16:37)
[2020-10-30] MEDS: CARVEDILOL 6.25 MG TABLET (FP) PO SCH ×2 (09:46→21:51)
[2020-10-30] MEDS: LOSARTAN POTASSIUM 50 MG TABLET PO SCH (09:46)
[2020-10-30] MEDS ORDERED: INSULIN SLIDING SCALE (NOVOLOG) 1 VIAL SQ ONE (11:30)
[2020-10-30] MEDS: POTASSIUM CHLORIDE 10 MEQ in SODIUM CHLORIDE 0.45% 1,000 ML IV SCH (18:27)
[2020-10-31] MEDS: traMADol HCL 50 MG TABLET PO PRN ×2 (06:41→17:34)
[2020-10-31] MEDS: HEPARIN NA (PORCINE) 5,000 UNITS/ML 1ML VIAL SQ SCH ×3 (06:41→21:04)
[2020-10-31] MEDS: INSULIN SLIDING SCALE (NOVOLOG) 1 VIAL SQ SCH ×4 (06:42→21:05)
[2020-10-31] MEDS: NIFEdipine E.R. 90 MG TABLET PO SCH (10:01)
[2020-10-31] MEDS: FERROUS SO4 325 MG TABLET (FP) PO SCH ×2 (10:01→17:34)
[2020-10-31] MEDS: PANTOPRAZOLE SODIUM 40 MG VIAL IVPUSH SCH (10:02)
[2020-10-31] MEDS: CARVEDILOL 6.25 MG TABLET (FP) PO SCH ×2 (10:02→21:05)
[2020-10-31] MEDS: LOSARTAN POTASSIUM 50 MG TABLET PO SCH (10:02)
[2020-10-31] MEDS: METOCLOPRAMIDE HCL INJECTION 10 MG/2 ML VIAL IVPUSH PRN (10:04)
[2020-10-31 10:58] LABS: BASO % 0.6 % (0-2.0); EOS % 2.1 % (0-4.5); HEMATOCRIT 24.8 % (35.4-49); HEMOGLOBIN 8.3 GM/dL (11.7-16.9); LYMPH % 30.6 % (8-40); MCH 29.5 pg (25.7-33.7); MCHC 33.5 g/dl (32.0-35.9); MEAN PLT VOLUME 8.6 fl (7.5-11.1); MONO % 7.3 % (3.8-10.2); NEUT % 59.4 % (42.8-82.8); PLATELET COUNT 233 10^3/uL (134-434); RBC 2.82 M/mm3 (4.00-5.60); RDW 14.4 % (11.9-15.9); WHITE BLOOD COUNT 6.8 K/mm3 (4.0-10.0)
[2020-10-31 11:18] LABS: ALBUMIN 2.3 g/dl (3.4-5.0); BLOOD UREA NITROGEN 25.5 mg/dL (7-18); CALCIUM 7.7 mg/dL (8.5-10.1)
[2020-10-31 11:21] LABS: CREATININE 3.7 mg/dL (0.55-1.3)
[2020-10-31 11:22] LABS: BILIRUBIN,TOTAL 0.2 mg/dL (0.2-1)
[2020-10-31] MEDS ORDERED: PT OWN MED DRAWER 7, Y5N ONE (12:18)
[2020-10-31] MEDS: POTASSIUM CHLORIDE 10 MEQ in SODIUM CHLORIDE 0.45% 1,000 ML IV SCH (17:35)
[2020-11-01] MEDS: HEPARIN NA (PORCINE) 5,000 UNITS/ML 1ML VIAL SQ SCH ×3 (06:16→21:51)
[2020-11-01] MEDS: INSULIN SLIDING SCALE (NOVOLOG) 1 VIAL SQ SCH ×4 (06:16→21:56)
[2020-11-01 07:47] LABS: BASO % 0.6 % (0-2.0); EOS % 2.4 % (0-4.5); HEMATOCRIT 24.8 % (35.4-49); HEMOGLOBIN 8.4 GM/dL (11.7-16.9); LYMPH % 38.1 % (8-40); MCH 29.7 pg (25.7-33.7); MCHC 33.7 g/dl (32.0-35.9); MEAN PLT VOLUME 8.3 fl (7.5-11.1); MONO % 8.6 % (3.8-10.2); NEUT % 50.3 % (42.8-82.8); PLATELET COUNT 234 10^3/uL (134-434); RBC 2.82 M/mm3 (4.00-5.60); RDW 14.4 % (11.9-15.9); WHITE BLOOD COUNT 6.4 K/mm3 (4.0-10.0)
[2020-11-01 08:07] LABS: ALBUMIN 2.4 g/dl (3.4-5.0); BLOOD UREA NITROGEN 25.5 mg/dL (7-18); MAGNESIUM 1.9 mg/dL (1.8-2.4)
[2020-11-01 08:10] LABS: CREATININE 3.4 mg/dL (0.55-1.3); PHOSPHOROUS 4.6 mg/dL (2.5-4.9)
[2020-11-01 08:12] LABS: BILIRUBIN,TOTAL 0.5 mg/dL (0.2-1); TOT PROT 5.3 g/dl (6.4-8.2)
[2020-11-01] MEDS: FERROUS SO4 325 MG TABLET (FP) PO SCH ×2 (08:38→17:25)
[2020-11-01] MEDS: NIFEdipine E.R. 90 MG TABLET PO SCH (09:40)
[2020-11-01] MEDS: LOSARTAN POTASSIUM 50 MG TABLET PO SCH (09:40)
[2020-11-01] MEDS: PANTOPRAZOLE SODIUM 40 MG VIAL IVPUSH SCH (09:41)
[2020-11-01] MEDS: CARVEDILOL 6.25 MG TABLET (FP) PO SCH ×2 (09:41→21:51)
[2020-11-01] MEDS: POTASSIUM CHLORIDE 10 MEQ in SODIUM CHLORIDE 0.45% 1,000 ML IV SCH (17:27)
[2020-11-02] MEDS: HEPARIN NA (PORCINE) 5,000 UNITS/ML 1ML VIAL SQ SCH ×3 (05:34→21:18)
[2020-11-02] MEDS: INSULIN SLIDING SCALE (NOVOLOG) 1 VIAL SQ SCH ×4 (06:14→21:19)
[2020-11-02] MEDS: PANTOPRAZOLE SODIUM 40 MG VIAL IVPUSH SCH (10:06)
[2020-11-02] MEDS: LOSARTAN POTASSIUM 50 MG TABLET PO SCH (10:06)
[2020-11-02] MEDS: CARVEDILOL 6.25 MG TABLET (FP) PO SCH (10:06)
[2020-11-02] MEDS: NIFEdipine E.R. 90 MG TABLET PO SCH (10:06)
[2020-11-02] MEDS: FERROUS SO4 325 MG TABLET (FP) PO SCH ×2 (10:06→17:28)
[2020-11-02] MEDS ORDERED: CARVEDILOL 12.5 MG TABLET (FP) PO SCH (11:14)
[2020-11-02] MEDS: POTASSIUM CHLORIDE 10 MEQ in SODIUM CHLORIDE 0.45% 1,000 ML IV SCH (19:51)
[2020-11-02] MEDS: CARVEDILOL 12.5 MG TABLET (FP) PO SCH (21:18)
[2020-11-03] MEDS: HEPARIN NA (PORCINE) 5,000 UNITS/ML 1ML VIAL SQ SCH (05:13)
[2020-11-03] MEDS: INSULIN SLIDING SCALE (NOVOLOG) 1 VIAL SQ SCH ×2 (06:01→12:09)
[2020-11-03 08:10] LABS: CALCIUM 7.9 mg/dL (8.5-10.1)
[2020-11-03 08:14] LABS: CREATININE 3.3 mg/dL (0.55-1.3)
[2020-11-03 09:52] VITALS: BP 136/87; PULSE 72; TEMP 98.1
[2020-11-03] MEDS: PANTOPRAZOLE SODIUM 40 MG VIAL IVPUSH SCH (09:53)
[2020-11-03] MEDS: CARVEDILOL 12.5 MG TABLET (FP) PO SCH (09:53)
[2020-11-03] MEDS: FERROUS SO4 325 MG TABLET (FP) PO SCH (09:53)
[2020-11-03] MEDS ORDERED: LOSARTAN POTASSIUM 50 MG TABLET PO SCH (10:00)
== END 2020-11-03 11:02 | disposition home or self-care (01) | DRG 74 ==
LOC: JER 18:02 → JERBED 10-29 01:39 → J5S 10-29 04:42
PROVIDERS: ADMIT Hospitalist; ATTEND Internal Medicine
DX: E11.43 Type 2 diabetes mellitus with diabetic autonomic (poly)neuropathy (principal); I13.0 Hypertensive heart and chronic kidney disease with heart failure and stage 1 through stage 4 chronic kidney disease, or unspecified chronic kidney disease; I50.32 Chronic diastolic (congestive) heart failure; E87.0 Hyperosmolality and hypernatremia; N17.9 Acute kidney failure, unspecified; E11.22 Type 2 diabetes mellitus with diabetic chronic kidney disease; N18.9 Chronic kidney disease, unspecified; I50.9 Heart failure, unspecified; Z86.718 Personal history of other venous thrombosis and embolism; Z86.711 Personal history of pulmonary embolism; E11.65 Type 2 diabetes mellitus with hyperglycemia; K31.84 Gastroparesis; D64.9 Anemia, unspecified; I16.0 Hypertensive urgency; N40.0 Benign prostatic hyperplasia without lower urinary tract symptoms
CPT/HCPCS: 36415; 71045-TC-FY; 71250-TC; 74176-TC; 80048; 80053; 82010; 82550; 82553; 82803; 82962; 83690; 83735; 83880; 84100; 84484; 85025; 85610; 85730; 86850; 86900; 86901; 93005; 93010; 99285-25; C9803; J0131; J1644; U0003; U0005

== ENCOUNTER 2021-01-12 16:39 | Inpatient (IN) | payer OTHER ==
[2021-01-12] MEDS ORDERED: METOCLOPRAMIDE HCL INJECTION 10 MG/2 ML VIAL IVPUSH ONE (17:29)
[2021-01-12] MEDS ORDERED: ACETAMINOPHEN 1000 MG/100 ML VIAL (NON FORMULARY) IVPB ONE (17:29)
[2021-01-12] MEDS ORDERED: LACTATED RINGERS SOLUTION 1000 ML INFUS.BAG IV ONE (17:29)
[2021-01-12] MEDS ORDERED: ACETAMINOPHEN INJECTION 100 ML IVPB ONE (17:36)
[2021-01-12] MEDS ORDERED: METOCLOPRAMIDE HCL INJECTION 10 MG/2 ML VIAL ONE (17:36)
[2021-01-12] MEDS ORDERED: METOPROLOL TARTRATE 5 MG/5 ML VIAL IVPUSH ONE ×2 (17:39→17:52)
[2021-01-12] MEDS ORDERED: dilTIAZem HCL 50 MG/10 ML - 10 ML VIAL IVPUSH ONE (17:40)
[2021-01-12 17:46] LABS: BASO % 0.1 % (0-2.0); HEMATOCRIT 32.2 % (35.4-49); HEMOGLOBIN 10.7 GM/dL (11.7-16.9); LYMPH % 5.7 % (8-40); MCH 29.5 pg (25.7-33.7); MCHC 33.1 g/dl (32.0-35.9); MEAN CELL VOLUME 89.1 fl (80-96); MEAN PLT VOLUME 8.4 fl (7.5-11.1); MONO % 4.5 % (3.8-10.2); NEUT % 89.7 % (42.8-82.8); PLATELET COUNT 273 10^3/uL (134-434); RBC 3.61 M/mm3 (4.00-5.60); RDW 15.9 % (11.9-15.9); VENOUS BASE EXCESS 4.3 mmol/L (-2-2); VENOUS PCO2 39.3 mmHg (38-52); VENOUS PH 7.473 (7.310-7.410); WHITE BLOOD COUNT 17.9 K/mm3 (4.0-10.0)
[2021-01-12] MEDS ORDERED: METOPROLOL TARTRATE 5 MG/5 ML VIAL ONE (17:50)
[2021-01-12 18:00] LABS: PROTHROMBIN TIME (PATIENT) 12.3 SEC (9.7-13.0)
[2021-01-12 18:03] LABS: ACTIVATED PTT 32.2 SECONDS (25.2-36.5)
[2021-01-12 18:07] LABS: ALBUMIN 3.6 g/dl (3.4-5.0); BLOOD UREA NITROGEN 55.8 mg/dL (7-18); CALCIUM 9.3 mg/dL (8.5-10.1)
[2021-01-12 18:11] LABS: BILIRUBIN,TOTAL 0.3 mg/dL (0.2-1); CREATININE 5.6 mg/dL (0.55-1.3); TOT PROT 7.7 g/dl (6.4-8.2)
[2021-01-12] MEDS ORDERED: CALCIUM GLUCONATE 10% - 1,000 MG/10 ML VIAL IVPUSH ONE (18:28)
[2021-01-12] MEDS ORDERED: FAMOTIDINE 20 MG/50 ML IVPB 20 MG/50 ML MG IVPB ONE ×2 (20:44→21:07)
[2021-01-12] MEDS ORDERED: hydrALAZINE HCL 20 MG/ML VIAL IVPUSH ONE (21:26)
[2021-01-12] MEDS ORDERED: SIMETHICONE 80 MG TAB.CHEW (FP) PO PRN (22:08)
[2021-01-12] MEDS ORDERED: ACETAMINOPHEN 325 MG TABLET (FP) PO PRN (22:10)
[2021-01-12] MEDS ORDERED: LACTATED RINGERS SOLUTION 1,000 ML/1,000 ML INFUS.BAG IV SCH (22:15)
[2021-01-13] MEDS ORDERED: hydrALAZINE HCL 20 MG/ML VIAL ONE (00:45)
[2021-01-13] MEDS ORDERED: PANTOPRAZOLE SODIUM 40 MG/100 ML BAG IVPB ONE (00:45)
[2021-01-13] MEDS ORDERED: HEPARIN NA (PORCINE) 5,000 UNITS/ML 1ML VIAL ONE ×2 (00:45→07:45)
[2021-01-13] MEDS: HEPARIN NA (PORCINE) 5,000 UNITS/ML 1ML VIAL SQ SCH ×4 (00:57→21:20)
[2021-01-13] MEDS: PANTOPRAZOLE SODIUM 40 MG VIAL IVPUSH SCH ×2 (00:57→11:09)
[2021-01-13 01:02] LABS: BASO % 0.7 % (0-2.0); EOS % 0.1 % (0-4.5); HEMATOCRIT 29.1 % (35.4-49); HEMOGLOBIN 9.8 GM/dL (11.7-16.9); LYMPH % 8.9 % (8-40); MCH 30.2 pg (25.7-33.7); MCHC 33.8 g/dl (32.0-35.9); MEAN CELL VOLUME 89.3 fl (80-96); NEUT % 82.3 % (42.8-82.8); PLATELET COUNT 235 10^3/uL (134-434); RBC 3.26 M/mm3 (4.00-5.60); RDW 15.6 % (11.9-15.9); WHITE BLOOD COUNT 17.1 K/mm3 (4.0-10.0)
[2021-01-13] MEDS: INSULIN SLIDING SCALE (NOVOLOG) 1 VIAL SQ SCH ×5 (01:47→21:20)
[2021-01-13] MEDS ORDERED: METOCLOPRAMIDE HCL INJECTION 10 MG/2 ML VIAL ONE (05:49)
[2021-01-13] MEDS: METOCLOPRAMIDE HCL INJECTION 10 MG/2 ML VIAL IVPUSH PRN ×2 (05:52→14:37)
[2021-01-13 08:22] LABS: HEMATOCRIT 29.9 % (35.4-49); HEMOGLOBIN 10.2 GM/dL (11.7-16.9); MCH 30.7 pg (25.7-33.7); MCHC 33.9 g/dl (32.0-35.9); MEAN CELL VOLUME 90.6 fl (80-96); MEAN PLT VOLUME 9.2 fl (7.5-11.1); PLATELET COUNT 248 10^3/uL (134-434); RDW 15.9 % (11.9-15.9)
[2021-01-13] MEDS ORDERED: ACETAMINOPHEN 1000 MG/100 ML VIAL (NON FORMULARY) IVPB PRN (08:22)
[2021-01-13 08:37] LABS: ALBUMIN 3.1 g/dl (3.4-5.0); CALCIUM 8.5 mg/dL (8.5-10.1)
[2021-01-13 08:39] LABS: MAGNESIUM 2.2 mg/dL (1.8-2.4)
[2021-01-13 08:42] LABS: CREATININE 5.5 mg/dL (0.55-1.3); PHOSPHOROUS 4.3 mg/dL (2.5-4.9)
[2021-01-13 08:43] LABS: BILIRUBIN,TOTAL 0.6 mg/dL (0.2-1)
[2021-01-13 08:45] LABS: TOT PROT 6.6 g/dl (6.4-8.2)
[2021-01-13] MEDS ORDERED: ACETAMINOPHEN INJECTION 100 ML IVPB ONE (08:45)
[2021-01-13] MEDS ORDERED: SODIUM CHLORIDE 0.45% 1,000 ML IV SCH (09:30)
[2021-01-13] MEDS ORDERED: LOSARTAN POTASSIUM 50 MG TABLET PO SCH (10:00)
[2021-01-13] MEDS: CARVEDILOL 12.5 MG TABLET (FP) PO SCH ×2 (11:09→21:20)
[2021-01-13] MEDS: NIFEdipine E.R. 90 MG TABLET PO SCH (14:30)
[2021-01-13 18:34] VITALS: BMI 21.4
[2021-01-13] MEDS: SODIUM CHLORIDE 0.45% 1,000 ML IV SCH (20:36)
[2021-01-13] MEDS ORDERED: PT OWN MED DRAWER 7, Y5N ONE (21:01)
[2021-01-13] MEDS: AMITRIPTYLINE HCL 75 MG TABLET PO SCH (21:20)
[2021-01-14] MEDS: SODIUM CHLORIDE 0.45% 1,000 ML IV SCH ×4 (04:20→17:56)
[2021-01-14] MEDS: INSULIN SLIDING SCALE (NOVOLOG) 1 VIAL SQ SCH ×4 (06:05→23:23)
[2021-01-14] MEDS: HEPARIN NA (PORCINE) 5,000 UNITS/ML 1ML VIAL SQ SCH ×3 (06:16→22:54)
[2021-01-14] MEDS: PANTOPRAZOLE SODIUM 40 MG VIAL IVPUSH SCH (09:44)
[2021-01-14] MEDS: NIFEdipine E.R. 90 MG TABLET PO SCH (09:44)
[2021-01-14] MEDS: CARVEDILOL 12.5 MG TABLET (FP) PO SCH ×2 (09:44→22:54)
[2021-01-14 11:13] LABS: ALBUMIN 2.6 g/dl (3.4-5.0); BLOOD UREA NITROGEN 58.4 mg/dL (7-18); CALCIUM 8.1 mg/dL (8.5-10.1)
[2021-01-14 11:17] LABS: PHOSPHOROUS 5.3 mg/dL (2.5-4.9)
[2021-01-14 11:19] LABS: BILIRUBIN,TOTAL 0.3 mg/dL (0.2-1); TOT PROT 5.8 g/dl (6.4-8.2)
[2021-01-14 12:11] LABS: HEMATOCRIT 27.6 % (35.4-49); HEMOGLOBIN 9.4 GM/dL (11.7-16.9); MCH 30.8 pg (25.7-33.7); MCHC 33.9 g/dl (32.0-35.9); MEAN CELL VOLUME 90.7 fl (80-96); MEAN PLT VOLUME 9.2 fl (7.5-11.1); PLATELET COUNT 214 10^3/uL (134-434); RBC 3.04 M/mm3 (4.00-5.60); RDW 15.5 % (11.9-15.9); WHITE BLOOD COUNT 10.5 K/mm3 (4.0-10.0)
[2021-01-14 13:36] LABS: ANISOCYTOSIS 1+; MACROCYTOSIS 1+; PLATELET ESTIMATE NORMAL
[2021-01-14] MEDS: CALCIUM ACETATE 667 MG CAPSULE (FP) PO SCH (17:55)
[2021-01-14] MEDS ORDERED: PT OWN MED DRAWER 7, Y5N ONE (22:35)
[2021-01-14] MEDS: AMITRIPTYLINE HCL 75 MG TABLET PO SCH (22:55)
[2021-01-15] MEDS: INSULIN SLIDING SCALE (NOVOLOG) 1 VIAL SQ SCH ×4 (06:40→21:26)
[2021-01-15] MEDS: HEPARIN NA (PORCINE) 5,000 UNITS/ML 1ML VIAL SQ SCH ×3 (06:40→22:04)
[2021-01-15] MEDS ORDERED: PT OWN MED DRAWER 7, Y5N ONE (09:52)
[2021-01-15] MEDS: PANTOPRAZOLE SODIUM 40 MG VIAL IVPUSH SCH (09:57)
[2021-01-15] MEDS: SODIUM CHLORIDE 0.45% 1,000 ML IV SCH ×3 (09:58→20:04)
[2021-01-15] MEDS: CALCIUM ACETATE 667 MG CAPSULE (FP) PO SCH ×3 (09:58→18:47)
[2021-01-15] MEDS: CARVEDILOL 12.5 MG TABLET (FP) PO SCH ×2 (09:58→22:04)
[2021-01-15 11:29] LABS: BILIRUBIN,TOTAL 0.2 mg/dL (0.2-1)
[2021-01-15 11:47] LABS: EPI CELLS 10 /uL (0-25.1); HYALINE CASTS 2 /uL (0-3.1); URINE APPEARANCE CLEAR; URINE BACTERIA 66 /uL (0-1359); URINE BILIRUBIN NEGATIVE (NEGATIVE); URINE COLOR YELLOW; URINE GLUCOSE (UA) TRACE (NEGATIVE); URINE KETONE NEGATIVE (NEGATIVE); URINE LEUK ESTERASE NEGATIVE (NEGATIVE); URINE NITRITE NEGATIVE (NEGATIVE); URINE PROTEIN 4+ (NEGATIVE); URINE RBC 7 /uL (0-23.9); URINE UROBILINOGEN 0.2 mg/dL (0.2-1.0); URINE WBC 14 /uL (0-25.8)
[2021-01-15 12:00] LABS: BLOOD UREA NITROGEN 49.8 mg/dL (7-18); CALCIUM 7.7 mg/dL (8.5-10.1)
[2021-01-15 12:04] LABS: PHOSPHOROUS 4.8 mg/dL (2.5-4.9)
[2021-01-15 12:08] LABS: ALBUMIN 2.4 g/dl (3.4-5.0); CREATININE 5.6 mg/dL (0.55-1.3); TOT PROT 5.5 g/dl (6.4-8.2)
[2021-01-15 20:12] LABS: HEMATOCRIT 26.7 % (35.4-49); HEMOGLOBIN 9.2 GM/dL (11.7-16.9); MCH 31.2 pg (25.7-33.7); MCHC 34.5 g/dl (32.0-35.9); MEAN CELL VOLUME 90.2 fl (80-96); MEAN PLT VOLUME 8.8 fl (7.5-11.1); PLATELET COUNT 203 10^3/uL (134-434); RBC 2.96 M/mm3 (4.00-5.60); WHITE BLOOD COUNT 8.3 K/mm3 (4.0-10.0)
[2021-01-15] MEDS: AMITRIPTYLINE HCL 75 MG TABLET PO SCH (22:04)
[2021-01-16] MEDS: SODIUM CHLORIDE 0.45% 1,000 ML IV SCH ×2 (06:07→16:58)
[2021-01-16] MEDS: INSULIN SLIDING SCALE (NOVOLOG) 1 VIAL SQ SCH ×4 (06:19→21:27)
[2021-01-16] MEDS: HEPARIN NA (PORCINE) 5,000 UNITS/ML 1ML VIAL SQ SCH ×3 (06:35→21:25)
[2021-01-16] MEDS: CALCIUM ACETATE 667 MG CAPSULE (FP) PO SCH ×3 (10:04→18:25)
[2021-01-16] MEDS: CARVEDILOL 12.5 MG TABLET (FP) PO SCH ×2 (10:04→21:25)
[2021-01-16] MEDS: PANTOPRAZOLE SODIUM 40 MG VIAL IVPUSH SCH (10:05)
[2021-01-16 10:14] LABS: ALBUMIN 2.2 g/dl (3.4-5.0); BLOOD UREA NITROGEN 40.9 mg/dL (7-18); CALCIUM 7.5 mg/dL (8.5-10.1)
[2021-01-16 10:16] LABS: PHOSPHOROUS 4.6 mg/dL (2.5-4.9)
[2021-01-16 10:17] LABS: CREATININE 4.9 mg/dL (0.55-1.3)
[2021-01-16 10:18] LABS: BILIRUBIN,TOTAL 0.1 mg/dL (0.2-1); TOT PROT 5.2 g/dl (6.4-8.2)
[2021-01-16 19:19] LABS: HEMATOCRIT 25.2 % (35.4-49); HEMOGLOBIN 8.6 GM/dL (11.7-16.9); MCH 30.7 pg (25.7-33.7); MEAN CELL VOLUME 90.5 fl (80-96); MEAN PLT VOLUME 9.2 fl (7.5-11.1); PLATELET COUNT 195 10^3/uL (134-434); RBC 2.79 M/mm3 (4.00-5.60); WHITE BLOOD COUNT 7.8 K/mm3 (4.0-10.0)
[2021-01-16] MEDS ORDERED: PT OWN MED DRAWER 7, Y5N ONE (21:20)
[2021-01-16] MEDS: AMITRIPTYLINE HCL 75 MG TABLET PO SCH (21:25)
[2021-01-17] MEDS: SODIUM CHLORIDE 0.45% 1,000 ML IV SCH ×2 (02:39→17:00)
[2021-01-17] MEDS: INSULIN SLIDING SCALE (NOVOLOG) 1 VIAL SQ SCH ×4 (06:19→21:12)
[2021-01-17] MEDS: HEPARIN NA (PORCINE) 5,000 UNITS/ML 1ML VIAL SQ SCH ×3 (06:19→21:11)
[2021-01-17] MEDS ORDERED: amLODIPine BESYLATE 5 MG TABLET (FP) PO ONE (06:35)
[2021-01-17] MEDS ORDERED: ACETAMINOPHEN 1000 MG/100 ML VIAL (NON FORMULARY) IVPB PRN (08:08)
[2021-01-17 09:38] LABS: BLOOD UREA NITROGEN 39.6 mg/dL (7-18); CALCIUM 7.1 mg/dL (8.5-10.1); MAGNESIUM 1.7 mg/dL (1.8-2.4)
[2021-01-17 09:41] LABS: CREATININE 4.7 mg/dL (0.55-1.3)
[2021-01-17 09:43] LABS: BILIRUBIN,TOTAL 0.1 mg/dL (0.2-1); TOT PROT 4.8 g/dl (6.4-8.2)
[2021-01-17] MEDS: CALCIUM ACETATE 667 MG CAPSULE (FP) PO SCH ×3 (09:45→17:31)
[2021-01-17] MEDS: PANTOPRAZOLE SODIUM 40 MG VIAL IVPUSH SCH (09:45)
[2021-01-17] MEDS: CARVEDILOL 12.5 MG TABLET (FP) PO SCH (09:45)
[2021-01-17] MEDS ORDERED: MAGNESIUM SULF 50% (8.12 MEQ/2 ML-1 GM VIAL) IVPB ONE (14:48)
[2021-01-17 17:58] LABS: BASO % 0.6 % (0-2.0); EOS % 1.4 % (0-4.5); HEMATOCRIT 24.4 % (35.4-49); HEMOGLOBIN 8.3 GM/dL (11.7-16.9); LYMPH % 27.6 % (8-40); MCH 30.6 pg (25.7-33.7); MCHC 33.9 g/dl (32.0-35.9); MEAN CELL VOLUME 90.2 fl (80-96); MEAN PLT VOLUME 9.2 fl (7.5-11.1); MONO % 7.7 % (3.8-10.2); NEUT % 62.7 % (42.8-82.8); PLATELET COUNT 166 10^3/uL (134-434); RDW 14.9 % (11.9-15.9); WHITE BLOOD COUNT 7.9 K/mm3 (4.0-10.0)
[2021-01-17] MEDS ORDERED: PT OWN MED DRAWER 7, Y5N ONE (21:01)
[2021-01-17] MEDS: AMITRIPTYLINE HCL 75 MG TABLET PO SCH (21:11)
[2021-01-17] MEDS: CARVEDILOL 25 MG TABLET (FP) PO SCH (21:12)
[2021-01-18] MEDS: HEPARIN NA (PORCINE) 5,000 UNITS/ML 1ML VIAL SQ SCH ×3 (06:09→21:26)
[2021-01-18] MEDS: INSULIN SLIDING SCALE (NOVOLOG) 1 VIAL SQ SCH ×4 (06:10→21:26)
[2021-01-18] MEDS ORDERED: MAGNESIUM OXIDE 400 MG TABLET (FP) PO ONE (08:17)
[2021-01-18 09:09] LABS: HEMATOCRIT 25.2 % (35.4-49); HEMOGLOBIN 8.6 GM/dL (11.7-16.9); MEAN PLT VOLUME 9.4 fl (7.5-11.1); PLATELET COUNT 203 10^3/uL (134-434); RBC 2.77 M/mm3 (4.00-5.60); RDW 14.8 % (11.9-15.9); WHITE BLOOD COUNT 9.5 K/mm3 (4.0-10.0)
[2021-01-18 09:33] LABS: ALBUMIN 2.2 g/dl (3.4-5.0); BLOOD UREA NITROGEN 36.3 mg/dL (7-18); CALCIUM 7.5 mg/dL (8.5-10.1)
[2021-01-18 09:36] LABS: CREATININE 4.5 mg/dL (0.55-1.3)
[2021-01-18] MEDS: CARVEDILOL 25 MG TABLET (FP) PO SCH ×2 (09:37→21:25)
[2021-01-18] MEDS: PANTOPRAZOLE SODIUM 40 MG VIAL IVPUSH SCH (09:37)
[2021-01-18] MEDS: CALCIUM ACETATE 667 MG CAPSULE (FP) PO SCH ×3 (09:37→18:20)
[2021-01-18 09:38] LABS: BILIRUBIN,TOTAL 0.2 mg/dL (0.2-1); TOT PROT 5.3 g/dl (6.4-8.2)
[2021-01-18] MEDS ORDERED: LOSARTAN POTASSIUM 25 MG TABLET PO SCH (10:00)
[2021-01-18] MEDS: SODIUM CHLORIDE 0.45% 1,000 ML IV SCH ×2 (12:29→17:55)
[2021-01-18] MEDS: METOCLOPRAMIDE HCL INJECTION 10 MG/2 ML VIAL IVPUSH PRN (14:05)
[2021-01-18] MEDS ORDERED: PT OWN MED DRAWER 7, Y5N ONE (21:21)
[2021-01-18] MEDS: AMITRIPTYLINE HCL 75 MG TABLET PO SCH (21:26)
[2021-01-19] MEDS: HEPARIN NA (PORCINE) 5,000 UNITS/ML 1ML VIAL SQ SCH ×2 (06:03→14:36)
[2021-01-19] MEDS: INSULIN SLIDING SCALE (NOVOLOG) 1 VIAL SQ SCH ×3 (06:04→17:18)
[2021-01-19] MEDS: CALCIUM ACETATE 667 MG CAPSULE (FP) PO SCH ×3 (08:43→17:18)
[2021-01-19] MEDS: SODIUM CHLORIDE 0.45% 1,000 ML IV SCH (08:46)
[2021-01-19] MEDS: PANTOPRAZOLE SODIUM 40 MG VIAL IVPUSH SCH (09:34)
[2021-01-19] MEDS: CARVEDILOL 25 MG TABLET (FP) PO SCH (09:34)
[2021-01-19 11:25] LABS: BASO % 0.4 % (0-2.0); EOS % 1.6 % (0-4.5); HEMATOCRIT 23.2 % (35.4-49); LYMPH % 25.3 % (8-40); MCH 30.9 pg (25.7-33.7); MCHC 34.4 g/dl (32.0-35.9); MEAN CELL VOLUME 89.7 fl (80-96); MEAN PLT VOLUME 9.1 fl (7.5-11.1); MONO % 7.6 % (3.8-10.2); NEUT % 65.1 % (42.8-82.8); PLATELET COUNT 185 10^3/uL (134-434); RBC 2.58 M/mm3 (4.00-5.60); RDW 14.6 % (11.9-15.9)
[2021-01-19 12:24] LABS: ALBUMIN 2.2 g/dl (3.4-5.0); BLOOD UREA NITROGEN 41.3 mg/dL (7-18)
[2021-01-19 12:25] LABS: CALCIUM 7.8 mg/dL (8.5-10.1); MAGNESIUM 1.9 mg/dL (1.8-2.4)
[2021-01-19 12:27] LABS: CREATININE 4.3 mg/dL (0.55-1.3)
[2021-01-19 12:28] LABS: BILIRUBIN,TOTAL 0.2 mg/dL (0.2-1); PHOSPHOROUS 3.2 mg/dL (2.5-4.9)
[2021-01-19 12:29] LABS: TOT PROT 4.9 g/dl (6.4-8.2)
[2021-01-19 18:26] VITALS: BP 154/82; PULSE 65; TEMP 98.3
== END 2021-01-19 18:57 | disposition home or self-care (01) | DRG 74 ==
LOC: JER 16:39 → JERBED 19:47 → J5S 01-13 09:54
PROVIDERS: ADMIT Internal Medicine; ATTEND Internal Medicine
DX: E10.43 Type 1 diabetes mellitus with diabetic autonomic (poly)neuropathy (principal); N17.9 Acute kidney failure, unspecified; I13.0 Hypertensive heart and chronic kidney disease with heart failure and stage 1 through stage 4 chronic kidney disease, or unspecified chronic kidney disease; I50.32 Chronic diastolic (congestive) heart failure; M62.82 Rhabdomyolysis; I24.8 Other forms of acute ischemic heart disease; E87.0 Hyperosmolality and hypernatremia; E10.21 Type 1 diabetes mellitus with diabetic nephropathy; E10.22 Type 1 diabetes mellitus with diabetic chronic kidney disease; I16.0 Hypertensive urgency; N18.9 Chronic kidney disease, unspecified; N40.0 Benign prostatic hyperplasia without lower urinary tract symptoms; E10.65 Type 1 diabetes mellitus with hyperglycemia; D72.829 Elevated white blood cell count, unspecified; E86.0 Dehydration; E83.39 Other disorders of phosphorus metabolism; E78.5 Hyperlipidemia, unspecified
CPT/HCPCS: 36415; 70450-TC; 71045-TC-FY; 76775-TC; 80053; 81003; 82272; 82550; 82553; 82728; 82803; 82962; 83540; 83550; 83605; 83690; 83735; 84100; 84466; 84484; 85025; 85027; 85045; 85610; 85730; 87086; 93005; 93010; 99285-25; C9803; J0131; J1644; U0003; U0005

== ENCOUNTER 2021-02-14 18:43 | Inpatient (IN) | payer OTHER ==
[2021-02-14] MEDS ORDERED: NITROGLYCERIN SUBLINGUAL 1/150 0.4 MG TAB SL ONE (19:57)
[2021-02-14] MEDS ORDERED: morphine CARPU-JECT 2 MG/1 ML DISP.SYRIN IVPUSH ONE ×2 (20:00→22:01)
[2021-02-14] MEDS ORDERED: FAMOTIDINE 20 MG/50 ML IVPB 20 MG/50 ML MG IVPB ONE ×2 (20:05→20:33)
[2021-02-14] MEDS ORDERED: morphine SULFATE 4 MG/ML VIAL ONE ×2 (20:05→22:05)
[2021-02-14] MEDS ORDERED: NITROGLYCERIN SUBLINGUAL 1/150 0.4 MG TAB ONE (20:05)
[2021-02-14] MEDS ORDERED: METOCLOPRAMIDE HCL INJECTION 10 MG/2 ML VIAL IVPUSH ONE (20:05)
[2021-02-14] MEDS ORDERED: LACTATED RINGERS SOLUTION 1000 ML INFUS.BAG IV ONE (20:06)
[2021-02-14] MEDS ORDERED: CARVEDILOL 25 MG TABLET (FP) PO ONE (20:07)
[2021-02-14] MEDS ORDERED: METOCLOPRAMIDE HCL INJECTION 10 MG/2 ML VIAL ONE (20:33)
[2021-02-14] MEDS ORDERED: CARVEDILOL 12.5 MG TABLET (FP) ONE (20:33)
[2021-02-14 21:03] LABS: EOS % 0.4 % (0-4.5); HEMATOCRIT 25.8 % (35.4-49); HEMOGLOBIN 8.7 GM/dL (11.7-16.9); LYMPH % 16.7 % (8-40); MCH 30.5 pg (25.7-33.7); MCHC 33.9 g/dl (32.0-35.9); MEAN PLT VOLUME 9.2 fl (7.5-11.1); MONO % 7.4 % (3.8-10.2); NEUT % 74.5 % (42.8-82.8); PLATELET COUNT 315 10^3/uL (134-434); RBC 2.87 M/mm3 (4.00-5.60); RDW 14.4 % (11.9-15.9)
[2021-02-14 21:26] LABS: CALCIUM 7.5 mg/dL (8.5-10.1)
[2021-02-14 21:27] LABS: ALBUMIN 2.4 g/dl (3.4-5.0); BLOOD UREA NITROGEN 26.1 mg/dL (7-18)
[2021-02-14 21:30] LABS: CREATININE 4.1 mg/dL (0.55-1.3)
[2021-02-14 21:33] LABS: BILIRUBIN,TOTAL 0.2 mg/dL (0.2-1); TOT PROT 5.8 g/dl (6.4-8.2)
[2021-02-14 21:40] LABS: INR 1.09 (0.83-1.09); PROTHROMBIN TIME (PATIENT) 12.2 SEC (9.7-13.0)
[2021-02-15] MEDS ORDERED: METOCLOPRAMIDE HCL INJECTION 10 MG/2 ML VIAL IVPUSH PRN (02:43)
[2021-02-15] MEDS ORDERED: SIMETHICONE 80 MG TAB.CHEW (FP) PO PRN (02:44)
[2021-02-15] MEDS ORDERED: ACETAMINOPHEN 1000 MG/100 ML VIAL IVPB PRN ×2 (02:45→08:32)
[2021-02-15] MEDS ORDERED: LABETALOL HCL 5 MG/1 ML (100MG/20 ML VIAL) IVPUSH PRN ×2 (02:46→05:51)
[2021-02-15] MEDS: POTASSIUM CHLORIDE 10 MEQ in SODIUM CHLORIDE 0.45% 1,000 ML IVPB SCH (04:08)
[2021-02-15] MEDS: HEPARIN NA (PORCINE) 5,000 UNITS/ML 1ML VIAL SQ SCH ×3 (05:09→21:03)
[2021-02-15] MEDS ORDERED: PNEUMOC 13-VAL CONJ-DIP CRM/PF 0.5 ML DISP.SYRIN IM ONE (05:49)
[2021-02-15] MEDS: INSULIN SLIDING SCALE (NOVOLOG) 1 VIAL SQ SCH ×4 (06:12→21:12)
[2021-02-15] MEDS ORDERED: morphine SULFATE 4 MG/ML VIAL IVPUSH ONE (06:16)
[2021-02-15] MEDS ORDERED: morphine CARPU-JECT 2 MG/1 ML DISP.SYRIN IVPUSH PRN (08:30)
[2021-02-15] MEDS ORDERED: morphine SULFATE 4 MG/ML VIAL IVPUSH PRN (08:35)
[2021-02-15 08:38] LABS: BASO % 0.9 % (0-2.0); EOS % 0.9 % (0-4.5); HEMATOCRIT 24.2 % (35.4-49); HEMOGLOBIN 8.2 GM/dL (11.7-16.9); MCH 30.4 pg (25.7-33.7); MEAN CELL VOLUME 89.4 fl (80-96); MEAN PLT VOLUME 8.5 fl (7.5-11.1); MONO % 9.1 % (3.8-10.2); NEUT % 71.1 % (42.8-82.8); PLATELET COUNT 281 10^3/uL (134-434); RBC 2.71 M/mm3 (4.00-5.60); RDW 14.5 % (11.9-15.9); WHITE BLOOD COUNT 11.8 K/mm3 (4.0-10.0)
[2021-02-15] MEDS ORDERED: HYDROmorphone HCL CARPU-JECT 2 MG/1 ML DISP.SYRIN IVPUSH PRN (08:44)
[2021-02-15 09:01] LABS: CALCIUM 7.8 mg/dL (8.5-10.1)
[2021-02-15 09:02] LABS: BLOOD UREA NITROGEN 27.1 mg/dL (7-18); MAGNESIUM 1.7 mg/dL (1.8-2.4)
[2021-02-15] MEDS: DEXTROSE 5%-0.45% SALINE 1,000 ML IV SCH (09:02)
[2021-02-15 09:06] LABS: PHOSPHOROUS 3.6 mg/dL (2.5-4.9)
[2021-02-15] MEDS ORDERED: LABETALOL HCL 5 MG/1 ML (100MG/20 ML VIAL) IVPB ONE (09:42)
[2021-02-15] MEDS ORDERED: PT OWN MED DRAWER 7, Y5N ONE (10:27)
[2021-02-15] MEDS: PANTOPRAZOLE SODIUM 40 MG VIAL IVPUSH SCH (10:54)
[2021-02-15] MEDS: HYDROmorphone HCl 2 MG/ML VIAL IVPUSH PRN ×2 (11:58→18:11)
[2021-02-15] MEDS ORDERED: MAGNESIUM SULF 50% (8.12 MEQ/2 ML-1 GM VIAL) IVPB ONE (18:01)
[2021-02-15] MEDS: ATORVASTATIN CA 40 MG TABLET (FP) PO SCH (21:03)
[2021-02-15] MEDS: CARVEDILOL 12.5 MG TABLET (FP) PO SCH (21:03)
[2021-02-15] MEDS ORDERED: NIFEdipine E.R 60 MG TABLET PO SCH (22:00)
[2021-02-16] MEDS: HYDROmorphone HCl 2 MG/ML VIAL IVPUSH PRN ×2 (00:17→09:25)
[2021-02-16] MEDS: POTASSIUM CHLORIDE 10 MEQ in SODIUM CHLORIDE 0.45% 1,000 ML IVPB SCH (04:51)
[2021-02-16] MEDS: HEPARIN NA (PORCINE) 5,000 UNITS/ML 1ML VIAL SQ SCH ×3 (06:02→21:49)
[2021-02-16] MEDS: INSULIN SLIDING SCALE (NOVOLOG) 1 VIAL SQ SCH ×4 (06:24→22:07)
[2021-02-16] MEDS ORDERED: CARVEDILOL 12.5 MG TABLET (FP) PO ONE (06:35)
[2021-02-16] MEDS: DEXTROSE 5%-0.45% SALINE 1,000 ML IV SCH ×2 (07:41→21:51)
[2021-02-16 07:42] LABS: HEMATOCRIT 23.1 % (35.4-49); MCH 31.4 pg (25.7-33.7); MCHC 34.6 g/dl (32.0-35.9); MEAN CELL VOLUME 90.6 fl (80-96); MEAN PLT VOLUME 8.9 fl (7.5-11.1); PLATELET COUNT 285 10^3/uL (134-434); RBC 2.55 M/mm3 (4.00-5.60); RDW 14.3 % (11.9-15.9); WHITE BLOOD COUNT 8.1 K/mm3 (4.0-10.0)
[2021-02-16 07:54] LABS: CALCIUM 7.9 mg/dL (8.5-10.1)
[2021-02-16 07:55] LABS: BLOOD UREA NITROGEN 24.6 mg/dL (7-18)
[2021-02-16 07:59] LABS: CREATININE 3.9 mg/dL (0.55-1.3)
[2021-02-16] MEDS: PANTOPRAZOLE SODIUM 40 MG VIAL IVPUSH SCH (09:25)
[2021-02-16] MEDS: CARVEDILOL 12.5 MG TABLET (FP) PO SCH ×2 (09:26→21:49)
[2021-02-16] MEDS: METOCLOPRAMIDE HCL INJECTION 10 MG/2 ML VIAL IVPUSH SCH ×2 (12:03→17:07)
[2021-02-16] MEDS ORDERED: DOCUSATE SODIUM 100 MG CAPSULE (FP) PO PRN (14:19)
[2021-02-16] MEDS: oxyCODONE HCL 5 MG TABLET PO PRN ×2 (15:50→22:03)
[2021-02-16 16:56] VITALS: BMI 24.2
[2021-02-16] MEDS: ATORVASTATIN CA 40 MG TABLET (FP) PO SCH (21:49)
[2021-02-17] MEDS: POTASSIUM CHLORIDE 10 MEQ in SODIUM CHLORIDE 0.45% 1,000 ML IVPB SCH (02:04)
[2021-02-17] MEDS: HEPARIN NA (PORCINE) 5,000 UNITS/ML 1ML VIAL SQ SCH ×3 (06:00→21:14)
[2021-02-17] MEDS: METOCLOPRAMIDE HCL INJECTION 10 MG/2 ML VIAL IVPUSH SCH ×3 (06:01→16:55)
[2021-02-17] MEDS: INSULIN SLIDING SCALE (NOVOLOG) 1 VIAL SQ SCH ×4 (06:07→21:14)
[2021-02-17 08:21] LABS: HEMATOCRIT 22.3 % (35.4-49); HEMOGLOBIN 7.6 GM/dL (11.7-16.9); MCH 30.7 pg (25.7-33.7); MEAN CELL VOLUME 90.4 fl (80-96); MEAN PLT VOLUME 8.5 fl (7.5-11.1); PLATELET COUNT 303 10^3/uL (134-434); RBC 2.46 M/mm3 (4.00-5.60); RDW 14.2 % (11.9-15.9); WHITE BLOOD COUNT 8.4 K/mm3 (4.0-10.0)
[2021-02-17 08:57] LABS: BLOOD UREA NITROGEN 22.7 mg/dL (7-18); CALCIUM 7.9 mg/dL (8.5-10.1)
[2021-02-17 09:00] LABS: CREATININE 3.8 mg/dL (0.55-1.3)
[2021-02-17 09:02] LABS: BILIRUBIN,TOTAL 0.3 mg/dL (0.2-1); TOT PROT 4.6 g/dl (6.4-8.2)
[2021-02-17 09:05] LABS: ALBUMIN 1.9 g/dl (3.4-5.0)
[2021-02-17] MEDS: amLODIPine BESYLATE 5 MG TABLET (FP) PO SCH (10:18)
[2021-02-17] MEDS: CARVEDILOL 12.5 MG TABLET (FP) PO SCH ×2 (10:18→21:14)
[2021-02-17] MEDS: PANTOPRAZOLE SODIUM 40 MG VIAL IVPUSH SCH (10:18)
[2021-02-17] MEDS: DEXTROSE 5%-0.45% SALINE 1,000 ML IV SCH ×2 (10:28→23:33)
[2021-02-17] MEDS: oxyCODONE HCL 5 MG TABLET PO PRN ×3 (10:29→22:54)
[2021-02-17] MEDS: ATORVASTATIN CA 40 MG TABLET (FP) PO SCH (21:15)
[2021-02-18] MEDS: POTASSIUM CHLORIDE 10 MEQ in SODIUM CHLORIDE 0.45% 1,000 ML IVPB SCH (01:49)
[2021-02-18] MEDS: oxyCODONE HCL 5 MG TABLET PO PRN ×3 (06:12→20:00)
[2021-02-18] MEDS: HEPARIN NA (PORCINE) 5,000 UNITS/ML 1ML VIAL SQ SCH ×2 (06:12→21:18)
[2021-02-18] MEDS: INSULIN SLIDING SCALE (NOVOLOG) 1 VIAL SQ SCH ×4 (06:15→21:21)
[2021-02-18] MEDS: METOCLOPRAMIDE HCL INJECTION 10 MG/2 ML VIAL IVPUSH SCH ×3 (06:16→16:54)
[2021-02-18 07:58] LABS: HEMATOCRIT 19.6 % (35.4-49); MCH 30.3 pg (25.7-33.7); MCHC 33.4 g/dl (32.0-35.9); MEAN CELL VOLUME 90.7 fl (80-96); MEAN PLT VOLUME 8.3 fl (7.5-11.1); PLATELET COUNT 252 10^3/uL (134-434); RBC 2.16 M/mm3 (4.00-5.60); RDW 14.5 % (11.9-15.9); WHITE BLOOD COUNT 7.1 K/mm3 (4.0-10.0)
[2021-02-18 08:02] LABS: HEMOGLOBIN 6.6 GM/dL (11.7-16.9)
[2021-02-18 08:22] LABS: CHLORIDE 110 mmol/L (98-107); SODIUM 141 mmol/L (136-145)
[2021-02-18 08:43] LABS: ANION GAP 5 MMOL/L (8-16); CO2 26 mmol/L (21-32)
[2021-02-18 08:44] LABS: BLOOD UREA NITROGEN 21.5 mg/dL (7-18)
[2021-02-18 08:47] LABS: CREATININE 3.6 mg/dL (0.55-1.3)
[2021-02-18] MEDS: CARVEDILOL 12.5 MG TABLET (FP) PO SCH ×2 (09:57→21:20)
[2021-02-18] MEDS: amLODIPine BESYLATE 5 MG TABLET (FP) PO SCH (09:57)
[2021-02-18] MEDS: DEXTROSE 5%-0.45% SALINE 1,000 ML IV SCH (09:57)
[2021-02-18] MEDS ORDERED: PANTOPRAZOLE SODIUM 40 MG VIAL IVPUSH SCH (10:00)
[2021-02-18 10:28] LABS: CALCIUM 6.9 mg/dL (8.5-10.1); GLUCOSE,RANDOM 406 mg/dL (74-106)
[2021-02-18 13:30] LABS: HEMATOCRIT 23.2 % (35.4-49); HEMOGLOBIN 7.8 GM/dL (11.7-16.9); MCH 30.5 pg (25.7-33.7); MCHC 33.7 g/dl (32.0-35.9); MEAN CELL VOLUME 90.5 fl (80-96); MEAN PLT VOLUME 8.6 fl (7.5-11.1); PLATELET COUNT 287 10^3/uL (134-434); RBC 2.56 M/mm3 (4.00-5.60); RDW 14.7 % (11.9-15.9); WHITE BLOOD COUNT 8.5 K/mm3 (4.0-10.0)
[2021-02-18 14:01] LABS: CALCIUM 7.7 mg/dL (8.5-10.1)
[2021-02-18 14:02] LABS: BLOOD UREA NITROGEN 23.3 mg/dL (7-18); MAGNESIUM 1.4 mg/dL (1.8-2.4)
[2021-02-18 14:05] LABS: CREATININE 3.8 mg/dL (0.55-1.3); PHOSPHOROUS 3.9 mg/dL (2.5-4.9)
[2021-02-18] MEDS ORDERED: MAGNESIUM SULF 50% (8.12 MEQ/2 ML-1 GM VIAL) IVPB ONE (15:19)
[2021-02-18] MEDS: ATORVASTATIN CA 40 MG TABLET (FP) PO SCH (21:20)
[2021-02-19] MEDS: POTASSIUM CHLORIDE 10 MEQ in SODIUM CHLORIDE 0.45% 1,000 ML IVPB SCH (02:54)
[2021-02-19] MEDS: INSULIN SLIDING SCALE (NOVOLOG) 1 VIAL SQ SCH ×2 (06:42→11:30)
[2021-02-19] MEDS: HEPARIN NA (PORCINE) 5,000 UNITS/ML 1ML VIAL SQ SCH (06:43)
[2021-02-19] MEDS ORDERED: METOCLOPRAMIDE HCL INJECTION 10 MG/2 ML VIAL IVPB SCH (07:11)
[2021-02-19] MEDS: oxyCODONE HCL 5 MG TABLET PO PRN (08:06)
[2021-02-19 08:21] VITALS: BP 154/92; PULSE 76; TEMP 99.3
[2021-02-19] MEDS: METOCLOPRAMIDE HCL INJECTION 10 MG/2 ML VIAL IVPUSH SCH (08:26)
[2021-02-19] MEDS ORDERED: PANTOPRAZOLE SODIUM 40 MG VIAL IVPUSH SCH (10:00)
[2021-02-19] MEDS: CARVEDILOL 12.5 MG TABLET (FP) PO SCH (10:09)
[2021-02-19] MEDS: amLODIPine BESYLATE 5 MG TABLET (FP) PO SCH (10:09)
== END 2021-02-19 13:28 | disposition home or self-care (01) | DRG 74 ==
LOC: JER 18:43 → JERBED 22:48 → INTOOBSV 22:48 → J7W 02-15 04:46 → OBSVTOIN 02-15 12:17 → J7W 02-18 12:13
PROVIDERS: ADMIT Internal Medicine; ATTEND Internal Medicine
DX: E11.43 Type 2 diabetes mellitus with diabetic autonomic (poly)neuropathy (principal); N18.4 Chronic kidney disease, stage 4 (severe); I50.32 Chronic diastolic (congestive) heart failure; I13.0 Hypertensive heart and chronic kidney disease with heart failure and stage 1 through stage 4 chronic kidney disease, or unspecified chronic kidney disease; E87.0 Hyperosmolality and hypernatremia; K31.84 Gastroparesis; I16.0 Hypertensive urgency; E78.5 Hyperlipidemia, unspecified; E11.21 Type 2 diabetes mellitus with diabetic nephropathy; E11.22 Type 2 diabetes mellitus with diabetic chronic kidney disease; D63.1 Anemia in chronic kidney disease; D72.829 Elevated white blood cell count, unspecified; N40.0 Benign prostatic hyperplasia without lower urinary tract symptoms
CPT/HCPCS: 36415; 71045-TC-FY; 74018-TC-FY; 80048; 80053; 82550; 82553; 82962; 83735; 84100; 84484; 85025; 85027; 85610; 86922; 93005; 93010; 99285-25; C9803; G0378; J0131; J1644; U0003; U0005

== ENCOUNTER 2021-03-16 10:02 | Inpatient (IN) | payer OTHER ==
[2021-03-16] MEDS ORDERED: SODIUM CHLORIDE 0.9% 500 ML INFUS.BAG IV ONE (10:55)
[2021-03-16] MEDS ORDERED: METOCLOPRAMIDE HCL INJECTION 10 MG/2 ML VIAL IVPUSH ONE (10:55)
[2021-03-16] MEDS ORDERED: FAMOTIDINE 20 MG/50 ML IVPB 20 MG/50 ML MG IVPB ONE ×2 (10:55→11:53)
[2021-03-16] MEDS ORDERED: ACETAMINOPHEN 1000 MG/100 ML VIAL IVPB ONE (10:56)
[2021-03-16] MEDS ORDERED: NICARDIPINE 25 MG in DEXTROSE 5%-WATER - 240 ML IVPB SCH (11:00)
[2021-03-16] MEDS ORDERED: METOCLOPRAMIDE HCL INJECTION 10 MG/2 ML VIAL ONE (11:53)
[2021-03-16] MEDS ORDERED: ACETAMINOPHEN INJECTION 100 ML IVPB ONE ×2 (11:53→20:27)
[2021-03-16] MEDS ORDERED: CARVEDILOL 12.5 MG TABLET (FP) PO ONE (11:59)
[2021-03-16] MEDS ORDERED: NIFEdipine E.R 60 MG TABLET PO ONE (12:00)
[2021-03-16] MEDS ORDERED: morphine CARPU-JECT 4 MG/1 ML DISP.SYRIN IVPUSH ONE (12:18)
[2021-03-16] MEDS ORDERED: CARVEDILOL 12.5 MG TABLET (FP) ONE ×2 (12:39→20:27)
[2021-03-16] MEDS ORDERED: morphine SULFATE 4 MG/ML VIAL ONE (12:39)
[2021-03-16] MEDS ORDERED: NIFEdipine E.R. 30 MG TABLET ONE (12:39)
[2021-03-16 12:42] LABS: BASO % 0.3 % (0-2.0); EOS % 0.1 % (0-4.5); HEMATOCRIT 28.6 % (35.4-49); HEMOGLOBIN 9.5 GM/dL (11.7-16.9); LYMPH % 9.7 % (8-40); MCH 30.3 pg (25.7-33.7); MEAN CELL VOLUME 91.6 fl (80-96); MEAN PLT VOLUME 8.5 fl (7.5-11.1); MONO % 5.9 % (3.8-10.2); PLATELET COUNT 390 10^3/uL (134-434); RBC 3.13 M/mm3 (4.00-5.60); RDW 14.5 % (11.9-15.9)
[2021-03-16 13:11] LABS: ALBUMIN 3.1 g/dl (3.4-5.0); CALCIUM 8.8 mg/dL (8.5-10.1)
[2021-03-16 13:15] LABS: CREATININE 6.1 mg/dL (0.55-1.3)
[2021-03-16 13:17] LABS: BILIRUBIN,TOTAL 0.3 mg/dL (0.2-1); TOT PROT 6.5 g/dl (6.4-8.2)
[2021-03-16] MEDS ORDERED: INSULIN SLIDING SCALE (NOVOLOG) 1 VIAL SQ ONE (19:04)
[2021-03-16] MEDS: INSULIN SLIDING SCALE (NOVOLOG) 1 VIAL SQ SCH ×2 (19:09→21:11)
[2021-03-16] MEDS ORDERED: ATORVASTATIN CA 40 MG TABLET (FP) ONE (20:27)
[2021-03-16] MEDS ORDERED: HEPARIN NA (PORCINE) 5,000 UNITS/ML 1ML VIAL ONE (20:27)
[2021-03-16] MEDS ORDERED: morphine SULFATE 4 MG/ML VIAL IVPUSH ONE (20:59)
[2021-03-16] MEDS: ACETAMINOPHEN 1000 MG/100 ML VIAL IVPB PRN (21:00)
[2021-03-16] MEDS: CARVEDILOL 12.5 MG TABLET (FP) PO SCH (21:10)
[2021-03-16] MEDS: ATORVASTATIN CA 40 MG TABLET (FP) PO SCH (21:10)
[2021-03-16] MEDS: HEPARIN NA (PORCINE) 5,000 UNITS/ML 1ML VIAL SQ SCH (21:10)
[2021-03-16] MEDS: SODIUM CHLORIDE 1,000 ML IV SCH (22:58)
[2021-03-17] MEDS ORDERED: morphine SULFATE 4 MG/ML VIAL ONE
[2021-03-17] MEDS: SODIUM CHLORIDE 1,000 ML IV SCH ×3 (05:22→22:50)
[2021-03-17] MEDS: ACETAMINOPHEN 1000 MG/100 ML VIAL IVPB PRN (05:25)
[2021-03-17 05:42] VITALS: BMI 23.4
[2021-03-17] MEDS: HEPARIN NA (PORCINE) 5,000 UNITS/ML 1ML VIAL SQ SCH ×3 (06:19→21:04)
[2021-03-17] MEDS: INSULIN SLIDING SCALE (NOVOLOG) 1 VIAL SQ SCH ×4 (06:22→21:04)
[2021-03-17 08:35] LABS: HEMATOCRIT 23.8 % (35.4-49); HEMOGLOBIN 7.9 GM/dL (11.7-16.9); MCH 30.5 pg (25.7-33.7); MCHC 33.2 g/dl (32.0-35.9); MEAN CELL VOLUME 91.9 fl (80-96); MEAN PLT VOLUME 8.1 fl (7.5-11.1); PLATELET COUNT 300 10^3/uL (134-434); RBC 2.59 M/mm3 (4.00-5.60); RDW 14.6 % (11.9-15.9); WHITE BLOOD COUNT 11.1 K/mm3 (4.0-10.0)
[2021-03-17 09:19] LABS: BLOOD UREA NITROGEN 38.3 mg/dL (7-18); CREATININE 6.2 mg/dL (0.55-1.3)
[2021-03-17 09:21] LABS: BILIRUBIN,TOTAL 0.4 mg/dL (0.2-1); TOT PROT 5.3 g/dl (6.4-8.2)
[2021-03-17 09:22] LABS: CALCIUM 7.8 mg/dL (8.5-10.1)
[2021-03-17 09:23] LABS: MAGNESIUM 2.1 mg/dL (1.8-2.4)
[2021-03-17 09:29] LABS: ALBUMIN 2.5 g/dl (3.4-5.0)
[2021-03-17] MEDS: CARVEDILOL 12.5 MG TABLET (FP) PO SCH ×2 (11:53→21:04)
[2021-03-17] MEDS: NIFEdipine E.R. 30 MG TABLET PO SCH (11:54)
[2021-03-17] MEDS: PANTOPRAZOLE SODIUM 40 MG VIAL IVPUSH SCH (11:54)
[2021-03-17] MEDS ORDERED: ACETAMINOPHEN 1000 MG/100 ML VIAL IVPB PRN (12:33)
[2021-03-17 17:48] LABS: EPI CELLS 12 /uL (0-25.1); HYALINE CASTS 2 /uL (0-3.1); PH,URINE 5.5 (5.0-8.0); URINE APPEARANCE CLEAR; URINE BACTERIA 3 /uL (0-1359); URINE BILIRUBIN NEGATIVE (NEGATIVE); URINE COLOR YELLOW; URINE GLUCOSE (UA) TRACE (NEGATIVE); URINE KETONE NEGATIVE (NEGATIVE); URINE LEUK ESTERASE NEGATIVE (NEGATIVE); URINE NITRITE NEGATIVE (NEGATIVE); URINE PROTEIN 4+ (NEGATIVE); URINE RBC 4 /uL (0-23.9); URINE UROBILINOGEN 0.2 mg/dL (0.2-1.0); URINE WBC 19 /uL (0-25.8)
[2021-03-17 17:53] LABS: COCAINE, UR NEGATIVE (NEGATIVE); METHADONE, UR NEGATIVE (NEGATIVE); OPIATES, URI POSITIVE (NEGATIVE); PHENCYCLIDINE,URINE NEGATIVE (NEGATIVE); URINE AMPHETAMINES NEGATIVE (NEGATIVE); URINE BARBITURATES NEGATIVE (NEGATIVE); URINE BENZODIAZEPINES NEGATIVE (NEGATIVE)
[2021-03-17] MEDS: ATORVASTATIN CA 40 MG TABLET (FP) PO SCH (21:04)
[2021-03-18] MEDS: HEPARIN NA (PORCINE) 5,000 UNITS/ML 1ML VIAL SQ SCH ×3 (06:02→21:03)
[2021-03-18] MEDS: INSULIN SLIDING SCALE (NOVOLOG) 1 VIAL SQ SCH ×4 (06:05→21:12)
[2021-03-18] MEDS ORDERED: ONDANSETRON 4 MG/2 ML VIAL IVPB PRN (08:54)
[2021-03-18] MEDS ORDERED: ACETAMINOPHEN 1000 MG/100 ML VIAL IVPB PRN (10:14)
[2021-03-18] MEDS: CARVEDILOL 12.5 MG TABLET (FP) PO SCH (10:47)
[2021-03-18] MEDS: PANTOPRAZOLE SODIUM 40 MG VIAL IVPUSH SCH (10:47)
[2021-03-18] MEDS: NIFEdipine E.R. 30 MG TABLET PO SCH (10:47)
[2021-03-18 11:42] LABS: BASO % 0.4 % (0-2.0); EOS % 1.7 % (0-4.5); HEMATOCRIT 23.4 % (35.4-49); HEMOGLOBIN 7.8 GM/dL (11.7-16.9); LYMPH % 26.1 % (8-40); MCH 30.9 pg (25.7-33.7); MCHC 33.4 g/dl (32.0-35.9); MEAN CELL VOLUME 92.5 fl (80-96); MEAN PLT VOLUME 8.6 fl (7.5-11.1); MONO % 7.6 % (3.8-10.2); NEUT % 64.2 % (42.8-82.8); PLATELET COUNT 303 10^3/uL (134-434); RBC 2.54 M/mm3 (4.00-5.60); RDW 14.9 % (11.9-15.9); WHITE BLOOD COUNT 7.6 K/mm3 (4.0-10.0)
[2021-03-18 12:00] LABS: CALCIUM 7.6 mg/dL (8.5-10.1)
[2021-03-18 12:01] LABS: ALBUMIN 2.3 g/dl (3.4-5.0); BLOOD UREA NITROGEN 30.3 mg/dL (7-18)
[2021-03-18 12:04] LABS: CREATININE 5.5 mg/dL (0.55-1.3); PHOSPHOROUS 4.7 mg/dL (2.5-4.9)
[2021-03-18 12:05] LABS: BILIRUBIN,TOTAL 0.2 mg/dL (0.2-1); TOT PROT 5.1 g/dl (6.4-8.2)
[2021-03-18] MEDS: SODIUM CHLORIDE 1,000 ML IV SCH ×2 (12:20→17:29)
[2021-03-18] MEDS: ATORVASTATIN CA 40 MG TABLET (FP) PO SCH (21:03)
[2021-03-18] MEDS: CARVEDILOL 25 MG TABLET (FP) PO SCH (21:03)
[2021-03-19] MEDS: SODIUM CHLORIDE 1,000 ML IV SCH (01:07)
[2021-03-19] MEDS: HEPARIN NA (PORCINE) 5,000 UNITS/ML 1ML VIAL SQ SCH ×3 (05:53→21:05)
[2021-03-19] MEDS: INSULIN SLIDING SCALE (NOVOLOG) 1 VIAL SQ SCH ×4 (06:09→21:11)
[2021-03-19 09:57] LABS: BASO % 0.6 % (0-2.0); EOS % 0.9 % (0-4.5); HEMATOCRIT 24.1 % (35.4-49); HEMOGLOBIN 8.1 GM/dL (11.7-16.9); LYMPH % 22.8 % (8-40); MCH 30.8 pg (25.7-33.7); MCHC 33.6 g/dl (32.0-35.9); MEAN CELL VOLUME 91.6 fl (80-96); MEAN PLT VOLUME 8.7 fl (7.5-11.1); MONO % 6.4 % (3.8-10.2); NEUT % 69.3 % (42.8-82.8); PLATELET COUNT 313 10^3/uL (134-434); RBC 2.63 M/mm3 (4.00-5.60); RDW 14.7 % (11.9-15.9); WHITE BLOOD COUNT 8.9 K/mm3 (4.0-10.0)
[2021-03-19 10:26] LABS: CALCIUM 7.8 mg/dL (8.5-10.1)
[2021-03-19 10:27] LABS: ALBUMIN 2.3 g/dl (3.4-5.0); BLOOD UREA NITROGEN 29.6 mg/dL (7-18)
[2021-03-19 10:30] LABS: CREATININE 5.2 mg/dL (0.55-1.3)
[2021-03-19 10:31] LABS: BILIRUBIN,TOTAL 0.2 mg/dL (0.2-1)
[2021-03-19 10:32] LABS: TOT PROT 5.1 g/dl (6.4-8.2)
[2021-03-19] MEDS: PANTOPRAZOLE SODIUM 40 MG VIAL IVPUSH SCH (10:36)
[2021-03-19] MEDS: CARVEDILOL 25 MG TABLET (FP) PO SCH ×2 (10:36→21:06)
[2021-03-19] MEDS ORDERED: hydrALAZINE HCL 25 MG TABLET (FP) PO ONE (18:04)
[2021-03-19] MEDS: amLODIPine BESYLATE 5 MG TABLET (FP) PO ONE ×2 (18:05→18:21)
[2021-03-19] MEDS: ATORVASTATIN CA 40 MG TABLET (FP) PO SCH (21:06)
[2021-03-19] MEDS ORDERED: hydrALAZINE HCL 25 MG TABLET (FP) PO SCH (22:00)
[2021-03-20] MEDS: hydrALAZINE HCL 25 MG TABLET (FP) PO SCH ×2 (05:12→13:26)
[2021-03-20] MEDS: INSULIN SLIDING SCALE (NOVOLOG) 1 VIAL SQ SCH ×4 (06:21→23:02)
[2021-03-20] MEDS: HEPARIN NA (PORCINE) 5,000 UNITS/ML 1ML VIAL SQ SCH ×3 (06:22→23:02)
[2021-03-20] MEDS ORDERED: amLODIPine BESYLATE 5 MG TABLET (FP) PO SCH (10:00)
[2021-03-20] MEDS: CARVEDILOL 25 MG TABLET (FP) PO SCH ×2 (10:13→23:02)
[2021-03-20] MEDS: PANTOPRAZOLE SODIUM 40 MG VIAL IVPUSH SCH (10:14)
[2021-03-20 10:48] LABS: BASO % 0.5 % (0-2.0); HEMATOCRIT 23.5 % (35.4-49); HEMOGLOBIN 7.9 GM/dL (11.7-16.9); MCH 30.8 pg (25.7-33.7); MCHC 33.7 g/dl (32.0-35.9); MEAN CELL VOLUME 91.4 fl (80-96); MEAN PLT VOLUME 7.8 fl (7.5-11.1); MONO % 8.2 % (3.8-10.2); NEUT % 68.3 % (42.8-82.8); PLATELET COUNT 279 10^3/uL (134-434); RBC 2.57 M/mm3 (4.00-5.60); RDW 14.4 % (11.9-15.9); WHITE BLOOD COUNT 9.1 K/mm3 (4.0-10.0)
[2021-03-20 11:13] LABS: CALCIUM 7.5 mg/dL (8.5-10.1)
[2021-03-20 11:14] LABS: ALBUMIN 2.3 g/dl (3.4-5.0); BLOOD UREA NITROGEN 25.4 mg/dL (7-18); MAGNESIUM 1.8 mg/dL (1.8-2.4)
[2021-03-20 11:17] LABS: CREATININE 4.8 mg/dL (0.55-1.3)
[2021-03-20 11:18] LABS: BILIRUBIN,TOTAL 0.2 mg/dL (0.2-1)
[2021-03-20 11:19] LABS: TOT PROT 5.1 g/dl (6.4-8.2)
[2021-03-20] MEDS ORDERED: PT OWN MED DRAWER 7, Y5N ONE (17:41)
[2021-03-20] MEDS ORDERED: hydrALAZINE HCL 25 MG TABLET (FP) PO ONE (17:46)
[2021-03-20] MEDS: hydrALAZINE HCL 50 MG TABLET (FP) PO SCH (23:02)
[2021-03-20] MEDS: ATORVASTATIN CA 40 MG TABLET (FP) PO SCH (23:02)
[2021-03-21] MEDS: hydrALAZINE HCL 50 MG TABLET (FP) PO SCH ×2 (06:44→14:30)
[2021-03-21] MEDS: HEPARIN NA (PORCINE) 5,000 UNITS/ML 1ML VIAL SQ SCH ×2 (06:44→14:30)
[2021-03-21] MEDS: INSULIN SLIDING SCALE (NOVOLOG) 1 VIAL SQ SCH ×2 (06:44→10:55)
[2021-03-21] MEDS: CARVEDILOL 25 MG TABLET (FP) PO SCH (09:55)
[2021-03-21] MEDS ORDERED: PANTOPRAZOLE 40 MG TABLET PO SCH (10:15)
[2021-03-21 13:26] LABS: BLOOD UREA NITROGEN 31.3 mg/dL (7-18); CALCIUM 7.7 mg/dL (8.5-10.1)
[2021-03-21 13:30] LABS: CREATININE 4.8 mg/dL (0.55-1.3)
[2021-03-21] MEDS: PANTOPRAZOLE SODIUM 40 MG VIAL IVPUSH SCH (14:05)
[2021-03-21 15:42] VITALS: BP 149/82; PULSE 66; TEMP 98.8
== END 2021-03-21 15:59 | disposition home or self-care (01) | DRG 74 ==
LOC: JER 10:02 → JERBED 15:56 → J5S 03-17 04:55 → UNDODISIN 03-20 15:11 → J5S 03-20 20:57
PROVIDERS: ADMIT Internal Medicine; ATTEND Nurse Practitioner Acute Care
DX: E11.43 Type 2 diabetes mellitus with diabetic autonomic (poly)neuropathy (principal); I13.0 Hypertensive heart and chronic kidney disease with heart failure and stage 1 through stage 4 chronic kidney disease, or unspecified chronic kidney disease; I50.32 Chronic diastolic (congestive) heart failure; N17.9 Acute kidney failure, unspecified; N40.0 Benign prostatic hyperplasia without lower urinary tract symptoms; D64.9 Anemia, unspecified; K31.84 Gastroparesis; E78.5 Hyperlipidemia, unspecified; N18.9 Chronic kidney disease, unspecified
CPT/HCPCS: 36415; 71045-TC-FY; 74176-TC; 76775-TC; 80048; 80053; 80307; 81003; 82550; 82553; 82570; 82962; 83605; 83690; 83735; 84100; 84300; 84484; 85025; 85027; 87040; 93005; 93010; 99285-25; C9803; J0131; J1644; U0003; U0005

== ENCOUNTER 2021-03-24 17:21 | Observation (INO) | payer OTHER ==
[2021-03-24] MEDS ORDERED: METOCLOPRAMIDE HCL INJECTION 10 MG/2 ML VIAL IVPUSH ONE (17:53)
[2021-03-24] MEDS ORDERED: FAMOTIDINE 20 MG/50 ML IVPB 20 MG/50 ML MG IVPB ONE ×2 (17:53→18:06)
[2021-03-24] MEDS ORDERED: LACTATED RINGERS SOLUTION 1000 ML INFUS.BAG IV ONE (17:54)
[2021-03-24] MEDS ORDERED: METOCLOPRAMIDE HCL INJECTION 10 MG/2 ML VIAL ONE (18:06)
[2021-03-24] MEDS ORDERED: hydrALAZINE HCL 20 MG/ML VIAL IVPUSH ONE ×2 (18:06→19:49)
[2021-03-24] MEDS ORDERED: PANTOPRAZOLE SODIUM 40 MG VIAL IVPUSH ONE (18:39)
[2021-03-24 18:45] LABS: BASO % 0.2 % (0-2.0); HEMATOCRIT 29.1 % (35.4-49); HEMOGLOBIN 9.6 GM/dL (11.7-16.9); LYMPH % 6.4 % (8-40); MCH 29.9 pg (25.7-33.7); MEAN CELL VOLUME 90.7 fl (80-96); MEAN PLT VOLUME 8.3 fl (7.5-11.1); MONO % 4.1 % (3.8-10.2); NEUT % 89.3 % (42.8-82.8); PLATELET COUNT 312 10^3/uL (134-434); RBC 3.21 M/mm3 (4.00-5.60); WHITE BLOOD COUNT 15.5 K/mm3 (4.0-10.0)
[2021-03-24 18:53] LABS: INR 1.03 (0.83-1.09); PROTHROMBIN TIME (PATIENT) 12.1 SEC (9.7-13.0); VENOUS BASE EXCESS 3.4 mmol/L (-2-2); VENOUS PCO2 51.3 mmHg (38-52); VENOUS PH 7.373 (7.310-7.410)
[2021-03-24 18:55] LABS: ACTIVATED PTT 30.2 SECONDS (25.2-36.5)
[2021-03-24] MEDS ORDERED: PANTOPRAZOLE SODIUM 40 MG VIAL ONE (19:12)
[2021-03-24] MEDS ORDERED: ONDANSETRON 4 MG/2 ML VIAL IVPUSH ONE (19:49)
[2021-03-24] MEDS ORDERED: hydrALAZINE HCL 20 MG/ML VIAL ONE (19:50)
[2021-03-24] MEDS ORDERED: ONDANSETRON 4 MG/2 ML VIAL ONE (19:50)
[2021-03-24 20:07] LABS: ALBUMIN 3.2 g/dl (3.4-5.0); ALK PHOS 115 U/L (45-117); ANION GAP 8 MMOL/L (8-16); BILIRUBIN,TOTAL 0.2 mg/dL (0.2-1); BLOOD UREA NITROGEN 41.2 mg/dL (7-18); CALCIUM 9.6 mg/dL (8.5-10.1); CHLORIDE 113 mmol/L (98-107); CO2 27 mmol/L (21-32); CREATININE 5.3 mg/dL (0.55-1.3); GLUCOSE,RANDOM 149 mg/dL (74-106); LIPASE 63 U/L (73-393); MAGNESIUM 2.3 mg/dL (1.8-2.4); SGOT/AST 30 U/L (15-37); SGPT/ALT 63 U/L (13-61); SODIUM 149 mmol/L (136-145)
[2021-03-24] MEDS ORDERED: hydrALAZINE HCL 50 MG TABLET (FP) PO ONE (20:42)
[2021-03-24] MEDS ORDERED: NIFEdipine E.R. 30 MG TABLET PO ONE (20:42)
[2021-03-24] MEDS ORDERED: hydrALAZINE HCL 25 MG TABLET (FP) ONE (20:45)
[2021-03-24] MEDS ORDERED: NIFEdipine E.R. 30 MG TABLET ONE (20:45)
[2021-03-24 20:49] LABS: EPI CELLS 12 /uL (0-25.1); HYALINE CASTS 3 /uL (0-3.1); PH,URINE 6.5 (5.0-8.0); URINE APPEARANCE CLEAR; URINE BACTERIA 4 /uL (0-1359); URINE BILIRUBIN NEGATIVE (NEGATIVE); URINE COLOR YELLOW; URINE GLUCOSE (UA) TRACE (NEGATIVE); URINE KETONE NEGATIVE (NEGATIVE); URINE LEUK ESTERASE NEGATIVE (NEGATIVE); URINE NITRITE NEGATIVE (NEGATIVE); URINE PROTEIN 4+ (NEGATIVE); URINE RBC 13 /uL (0-23.9); URINE UROBILINOGEN 0.2 mg/dL (0.2-1.0); URINE WBC 13 /uL (0-25.8)
[2021-03-24] MEDS ORDERED: MAG HYDROX/AL HYDROX/SIMETH 30 ML UNIT-DOSE CUP PO ONE (22:28)
[2021-03-24] MEDS ORDERED: CARVEDILOL 12.5 MG TABLET (FP) PO ONE (22:31)
[2021-03-24] MEDS ORDERED: MAG HYDROX/AL HYDROX/SIMETH 30 ML UNIT-DOSE CUP ONE (22:34)
[2021-03-24] MEDS ORDERED: CARVEDILOL 12.5 MG TABLET (FP) ONE (22:34)
[2021-03-25] MEDS ORDERED: ACETAMINOPHEN 1000 MG/100 ML VIAL IVPB ONE (00:40)
[2021-03-25] MEDS ORDERED: ACETAMINOPHEN INJECTION 100 ML IVPB ONE (01:59)
[2021-03-25] MEDS ORDERED: hydrALAZINE HCL 20 MG/ML VIAL IVPUSH PRN ×3 (02:29→15:44)
[2021-03-25] MEDS ORDERED: METOCLOPRAMIDE HCL INJECTION 10 MG/2 ML VIAL IVPUSH PRN (02:30)
[2021-03-25] MEDS ORDERED: ACETAMINOPHEN 1000 MG/100 ML VIAL IVPB PRN ×3 (02:32→15:44)
[2021-03-25] MEDS ORDERED: SODIUM CHLORIDE 1,000 ML IV SCH (02:45)
[2021-03-25 03:32] LABS: BASO % 0.3 % (0-2.0); EOS % 0.1 % (0-4.5); HEMATOCRIT 24.2 % (35.4-49); HEMOGLOBIN 7.8 GM/dL (11.7-16.9); MCH 29.3 pg (25.7-33.7); MCHC 32.3 g/dl (32.0-35.9); MEAN CELL VOLUME 90.8 fl (80-96); MEAN PLT VOLUME 8.5 fl (7.5-11.1); MONO % 7.6 % (3.8-10.2); PLATELET COUNT 267 10^3/uL (134-434); RBC 2.66 M/mm3 (4.00-5.60); RDW 15.1 % (11.9-15.9); WHITE BLOOD COUNT 14.7 K/mm3 (4.0-10.0)
[2021-03-25] MEDS: INSULIN SLIDING SCALE (NOVOLOG) 1 VIAL SQ SCH ×4 (06:01→21:31)
[2021-03-25 07:08] LABS: BASO % 0.2 % (0-2.0); EOS % 0.2 % (0-4.5); HEMATOCRIT 23.9 % (35.4-49); HEMOGLOBIN 7.8 GM/dL (11.7-16.9); LYMPH % 13.3 % (8-40); MCH 29.7 pg (25.7-33.7); MCHC 32.6 g/dl (32.0-35.9); MEAN CELL VOLUME 91.3 fl (80-96); MEAN PLT VOLUME 8.4 fl (7.5-11.1); MONO % 7.8 % (3.8-10.2); NEUT % 78.5 % (42.8-82.8); PLATELET COUNT 251 10^3/uL (134-434); RBC 2.62 M/mm3 (4.00-5.60)
[2021-03-25 07:48] LABS: ALBUMIN 2.6 g/dl (3.4-5.0); BILIRUBIN,TOTAL 0.3 mg/dL (0.2-1); CALCIUM 8.3 mg/dL (8.5-10.1); CREATININE 5.5 mg/dL (0.55-1.3); MAGNESIUM 2.1 mg/dL (1.8-2.4); TOT PROT 5.5 g/dl (6.4-8.2)
[2021-03-25] MEDS: CARVEDILOL 25 MG TABLET (FP) PO SCH ×2 (09:32→21:31)
[2021-03-25] MEDS ORDERED: PANTOPRAZOLE SODIUM 40 MG VIAL IVPUSH SCH (10:00)
[2021-03-25] MEDS: SODIUM CHLORIDE 0.45% 1,000 ML IV SCH (10:49)
[2021-03-25] MEDS ORDERED: ERYTHROMYCIN BASE 500 MG TABLET PO SCH (11:30)
[2021-03-25] MEDS ORDERED: metroNIDAZOLE 250 MG TABLET PO SCH (11:45)
[2021-03-25] MEDS: ERYTHROMYCIN BASE 250 MG TAB PO SCH ×2 (13:15→20:29)
[2021-03-25] MEDS: metroNIDAZOLE 500 MG TABLET PO SCH ×2 (13:16→21:31)
[2021-03-25] MEDS ORDERED: PT OWN MED DRAWER 7, Y5N ONE ×2 (13:23→20:27)
[2021-03-25] MEDS: hydrALAZINE HCL 50 MG TABLET (FP) PO SCH ×2 (14:37→21:31)
[2021-03-25 16:08] LABS: BASO % 0.3 % (0-2.0); EOS % 0.5 % (0-4.5); HEMOGLOBIN 7.4 GM/dL (11.7-16.9); LYMPH % 17.7 % (8-40); MCH 29.7 pg (25.7-33.7); MCHC 32.2 g/dl (32.0-35.9); MEAN CELL VOLUME 92.3 fl (80-96); MEAN PLT VOLUME 8.7 fl (7.5-11.1); MONO % 7.4 % (3.8-10.2); NEUT % 74.1 % (42.8-82.8); PLATELET COUNT 212 10^3/uL (134-434); RBC 2.49 M/mm3 (4.00-5.60); RDW 14.8 % (11.9-15.9); WHITE BLOOD COUNT 11.5 K/mm3 (4.0-10.0)
[2021-03-25] MEDS ORDERED: PROCHLORPERAZINE INJECTION 10 MG/2 ML VIAL IVPB ONE (20:20)
[2021-03-25] MEDS: ATORVASTATIN CA 40 MG TABLET (FP) PO SCH (21:31)
[2021-03-25] MEDS: PANTOPRAZOLE 40 MG TABLET PO SCH (21:31)
[2021-03-26] MEDS: ERYTHROMYCIN BASE 250 MG TAB PO SCH ×3 (04:21→18:41)
[2021-03-26] MEDS: INSULIN SLIDING SCALE (NOVOLOG) 1 VIAL SQ SCH ×4 (06:15→21:26)
[2021-03-26] MEDS: hydrALAZINE HCL 50 MG TABLET (FP) PO SCH ×3 (06:15→21:26)
[2021-03-26 08:30] LABS: BASO % 0.4 % (0-2.0); EOS % 0.9 % (0-4.5); HEMATOCRIT 22.9 % (35.4-49); HEMOGLOBIN 7.7 GM/dL (11.7-16.9); LYMPH % 19.5 % (8-40); MCH 30.9 pg (25.7-33.7); MCHC 33.7 g/dl (32.0-35.9); MEAN CELL VOLUME 91.7 fl (80-96); MEAN PLT VOLUME 8.8 fl (7.5-11.1); NEUT % 70.2 % (42.8-82.8); PLATELET COUNT 237 10^3/uL (134-434); RBC 2.49 M/mm3 (4.00-5.60); RDW 14.7 % (11.9-15.9); WHITE BLOOD COUNT 8.5 K/mm3 (4.0-10.0)
[2021-03-26] MEDS: PANTOPRAZOLE 40 MG TABLET PO SCH ×2 (11:23→21:30)
[2021-03-26] MEDS: metroNIDAZOLE 500 MG TABLET PO SCH ×2 (11:23→21:26)
[2021-03-26] MEDS: CARVEDILOL 25 MG TABLET (FP) PO SCH ×2 (11:23→21:26)
[2021-03-26] MEDS: SODIUM CHLORIDE 0.45% 1,000 ML IV SCH (11:24)
[2021-03-26 11:25] LABS: COCAINE, UR NEGATIVE (NEGATIVE); METHADONE, UR NEGATIVE (NEGATIVE); OPIATES, URI NEGATIVE (NEGATIVE); PHENCYCLIDINE,URINE NEGATIVE (NEGATIVE); URINE AMPHETAMINES NEGATIVE (NEGATIVE); URINE BARBITURATES NEGATIVE (NEGATIVE); URINE BENZODIAZEPINES NEGATIVE (NEGATIVE)
[2021-03-26 13:41] LABS: ALBUMIN 2.2 g/dl (3.4-5.0); BILIRUBIN,TOTAL 0.2 mg/dL (0.2-1); CALCIUM 7.8 mg/dL (8.5-10.1); CREATININE 5.6 mg/dL (0.55-1.3); MAGNESIUM 2.1 mg/dL (1.8-2.4); TOT PROT 4.9 g/dl (6.4-8.2)
[2021-03-26] MEDS ORDERED: PT OWN MED DRAWER 7, Y5N ONE ×2 (19:00→20:22)
[2021-03-26] MEDS: HEPARIN NA (PORCINE) 5,000 UNITS/ML 1ML VIAL SQ SCH (21:26)
[2021-03-26] MEDS: ATORVASTATIN CA 40 MG TABLET (FP) PO SCH (21:26)
[2021-03-27] MEDS ORDERED: PT OWN MED DRAWER 7, Y5N ONE ×5 (02:25→21:51)
[2021-03-27] MEDS: ERYTHROMYCIN BASE 250 MG TAB PO SCH ×3 (02:44→21:58)
[2021-03-27] MEDS: hydrALAZINE HCL 50 MG TABLET (FP) PO SCH ×3 (07:12→21:57)
[2021-03-27] MEDS: INSULIN SLIDING SCALE (NOVOLOG) 1 VIAL SQ SCH ×2 (07:13→12:11)
[2021-03-27 08:55] LABS: BASO % 0.3 % (0-2.0); EOS % 1.2 % (0-4.5); HEMATOCRIT 22.8 % (35.4-49); HEMOGLOBIN 7.7 GM/dL (11.7-16.9); LYMPH % 20.2 % (8-40); MCH 31.2 pg (25.7-33.7); MCHC 33.8 g/dl (32.0-35.9); MEAN CELL VOLUME 92.3 fl (80-96); MEAN PLT VOLUME 8.9 fl (7.5-11.1); MONO % 9.2 % (3.8-10.2); NEUT % 69.1 % (42.8-82.8); PLATELET COUNT 225 10^3/uL (134-434); RBC 2.47 M/mm3 (4.00-5.60); RDW 14.5 % (11.9-15.9)
[2021-03-27 09:25] LABS: BLOOD UREA NITROGEN 41.6 mg/dL (7-18)
[2021-03-27 09:26] LABS: ALBUMIN 2.4 g/dl (3.4-5.0)
[2021-03-27 09:27] LABS: CALCIUM 7.5 mg/dL (8.5-10.1)
[2021-03-27 09:28] LABS: CREATININE 5.7 mg/dL (0.55-1.3)
[2021-03-27 09:29] LABS: BILIRUBIN,TOTAL 0.8 mg/dL (0.2-1)
[2021-03-27 09:30] LABS: TOT PROT 5.1 g/dl (6.4-8.2)
[2021-03-27] MEDS: SODIUM CHLORIDE 0.45% 1,000 ML IV SCH (09:59)
[2021-03-27] MEDS: CARVEDILOL 25 MG TABLET (FP) PO SCH ×2 (09:59→21:57)
[2021-03-27] MEDS: metroNIDAZOLE 500 MG TABLET PO SCH ×2 (09:59→21:57)
[2021-03-27] MEDS: PANTOPRAZOLE 40 MG TABLET PO SCH ×2 (09:59→21:57)
[2021-03-27] MEDS: HEPARIN NA (PORCINE) 5,000 UNITS/ML 1ML VIAL SQ SCH ×2 (09:59→21:57)
[2021-03-27 16:22] VITALS: BMI 24.1
[2021-03-27] MEDS ORDERED: INSULIN (NOVOLOG) ASPART 100 UNITS/ML 10ML VIAL ONE (18:21)
[2021-03-27] MEDS: ATORVASTATIN CA 40 MG TABLET (FP) PO SCH (21:57)
[2021-03-27] MEDS: SODIUM CHLORIDE 1,000 ML IV SCH (21:59)
[2021-03-28] MEDS: ERYTHROMYCIN BASE 250 MG TAB PO SCH ×3 (05:53→21:15)
[2021-03-28] MEDS: hydrALAZINE HCL 50 MG TABLET (FP) PO SCH ×3 (05:53→21:15)
[2021-03-28 08:59] LABS: HEMATOCRIT 22.6 % (35.4-49); HEMOGLOBIN 7.6 GM/dL (11.7-16.9); MCH 30.9 pg (25.7-33.7); MCHC 33.4 g/dl (32.0-35.9); MEAN CELL VOLUME 92.5 fl (80-96); MEAN PLT VOLUME 8.9 fl (7.5-11.1); PLATELET COUNT 228 10^3/uL (134-434); RBC 2.45 M/mm3 (4.00-5.60); RDW 14.4 % (11.9-15.9)
[2021-03-28 09:32] LABS: CALCIUM 7.5 mg/dL (8.5-10.1)
[2021-03-28 09:33] LABS: ALBUMIN 2.2 g/dl (3.4-5.0); BLOOD UREA NITROGEN 41.7 mg/dL (7-18); MAGNESIUM 1.9 mg/dL (1.8-2.4)
[2021-03-28 09:36] LABS: CREATININE 6.1 mg/dL (0.55-1.3)
[2021-03-28] MEDS ORDERED: PT OWN MED DRAWER 7, Y5N ONE ×7 (09:37→20:18)
[2021-03-28 09:38] LABS: BILIRUBIN,TOTAL 0.3 mg/dL (0.2-1); TOT PROT 5.1 g/dl (6.4-8.2)
[2021-03-28] MEDS: HEPARIN NA (PORCINE) 5,000 UNITS/ML 1ML VIAL SQ SCH ×2 (09:40→21:15)
[2021-03-28] MEDS: PANTOPRAZOLE 40 MG TABLET PO SCH ×2 (09:40→21:16)
[2021-03-28] MEDS: CARVEDILOL 25 MG TABLET (FP) PO SCH ×2 (09:40→21:15)
[2021-03-28] MEDS: metroNIDAZOLE 500 MG TABLET PO SCH ×2 (09:40→21:15)
[2021-03-28 11:33] LABS: ANISOCYTOSIS 0; HELMET CELLS 0; HOWELL-JOLLY BODIES 0; MACROCYTOSIS 0; OVALOCYTE 0; PLATELET ESTIMATE NORMAL; ROULEAU 0; SICKELED CELLS 0; TARGET CELLS 0; TEAR DROP CELLS 0; TOXIC GRANULATION 0
[2021-03-28] MEDS: LIPASE/PROTEASE/AMYLASE 36,000 UNIT CAPSULE PO SCH ×2 (12:08→17:38)
[2021-03-28] MEDS: SODIUM CHLORIDE 1,000 ML IV SCH (17:38)
[2021-03-28] MEDS: ATORVASTATIN CA 40 MG TABLET (FP) PO SCH (21:15)
[2021-03-29 01:37] LABS: EPI CELLS 5 /uL (0-25.1); HYALINE CASTS 2 /uL (0-3.1); PH,URINE 5.5 (5.0-8.0); URINE APPEARANCE CLEAR; URINE BACTERIA 2 /uL (0-1359); URINE BILIRUBIN NEGATIVE (NEGATIVE); URINE COLOR YELLOW; URINE GLUCOSE (UA) NEGATIVE (NEGATIVE); URINE KETONE NEGATIVE (NEGATIVE); URINE LEUK ESTERASE NEGATIVE (NEGATIVE); URINE NITRITE NEGATIVE (NEGATIVE); URINE PROTEIN 3+ (NEGATIVE); URINE RBC 4 /uL (0-23.9); URINE UROBILINOGEN 0.2 mg/dL (0.2-1.0); URINE WBC 8 /uL (0-25.8)
[2021-03-29] MEDS: ERYTHROMYCIN BASE 250 MG TAB PO SCH ×3 (05:17→22:01)
[2021-03-29] MEDS: hydrALAZINE HCL 50 MG TABLET (FP) PO SCH ×3 (05:17→21:56)
[2021-03-29] MEDS: TRIMETHOBENZAMIDE HCL 300 MG CAPSULE PO PRN (05:34)
[2021-03-29] MEDS: LIPASE/PROTEASE/AMYLASE 36,000 UNIT CAPSULE PO SCH ×3 (08:00→17:07)
[2021-03-29 09:12] LABS: BASO % 0.5 % (0-2.0); EOS % 1.4 % (0-4.5); HEMATOCRIT 23.8 % (35.4-49); HEMOGLOBIN 7.9 GM/dL (11.7-16.9); LYMPH % 30.5 % (8-40); MCH 30.7 pg (25.7-33.7); MCHC 33.2 g/dl (32.0-35.9); MEAN CELL VOLUME 92.3 fl (80-96); MEAN PLT VOLUME 8.9 fl (7.5-11.1); MONO % 8.2 % (3.8-10.2); NEUT % 59.4 % (42.8-82.8); PLATELET COUNT 236 10^3/uL (134-434); RBC 2.58 M/mm3 (4.00-5.60); RDW 14.4 % (11.9-15.9); WHITE BLOOD COUNT 7.3 K/mm3 (4.0-10.0)
[2021-03-29 09:51] LABS: CALCIUM 7.6 mg/dL (8.5-10.1)
[2021-03-29 09:52] LABS: ALBUMIN 2.4 g/dl (3.4-5.0); BLOOD UREA NITROGEN 37.5 mg/dL (7-18)
[2021-03-29 09:55] LABS: CREATININE 5.4 mg/dL (0.55-1.3)
[2021-03-29 09:56] LABS: BILIRUBIN,TOTAL 0.2 mg/dL (0.2-1)
[2021-03-29 09:57] LABS: TOT PROT 5.1 g/dl (6.4-8.2)
[2021-03-29] MEDS ORDERED: METOCLOPRAMIDE HCL INJECTION 10 MG/2 ML VIAL IVPB ONE (10:00)
[2021-03-29] MEDS: HEPARIN NA (PORCINE) 5,000 UNITS/ML 1ML VIAL SQ SCH ×2 (10:56→21:56)
[2021-03-29] MEDS: CARVEDILOL 25 MG TABLET (FP) PO SCH ×2 (11:00→21:56)
[2021-03-29] MEDS: metroNIDAZOLE 500 MG TABLET PO SCH ×2 (11:00→21:56)
[2021-03-29] MEDS: PANTOPRAZOLE 40 MG TABLET PO SCH ×2 (11:01→21:56)
[2021-03-29] MEDS ORDERED: PT OWN MED DRAWER 7, Y5N ONE (21:52)
[2021-03-29] MEDS: ATORVASTATIN CA 40 MG TABLET (FP) PO SCH (21:56)
[2021-03-30] MEDS: SODIUM CHLORIDE 1,000 ML IV SCH ×3 (01:20→21:47)
[2021-03-30] MEDS: hydrALAZINE HCL 50 MG TABLET (FP) PO SCH ×3 (05:59→21:37)
[2021-03-30] MEDS: ERYTHROMYCIN BASE 250 MG TAB PO SCH ×3 (05:59→21:37)
[2021-03-30] MEDS: LIPASE/PROTEASE/AMYLASE 36,000 UNIT CAPSULE PO SCH ×3 (09:05→16:52)
[2021-03-30] MEDS: metroNIDAZOLE 500 MG TABLET PO SCH ×2 (10:44→21:46)
[2021-03-30] MEDS: CARVEDILOL 25 MG TABLET (FP) PO SCH ×2 (10:46→21:37)
[2021-03-30] MEDS: PANTOPRAZOLE 40 MG TABLET PO SCH ×2 (10:46→21:37)
[2021-03-30] MEDS: HEPARIN NA (PORCINE) 5,000 UNITS/ML 1ML VIAL SQ SCH ×2 (10:47→21:37)
[2021-03-30 13:27] LABS: CHLORIDE 116 mmol/L (98-107); SODIUM 143 mmol/L (136-145)
[2021-03-30 13:29] LABS: CALCIUM 7.5 mg/dL (8.5-10.1)
[2021-03-30 13:30] LABS: ALBUMIN 2.2 g/dl (3.4-5.0); ANION GAP 8 MMOL/L (8-16); CO2 19 mmol/L (21-32); GLUCOSE,RANDOM 115 mg/dL (74-106)
[2021-03-30 13:33] LABS: CREATININE 5.1 mg/dL (0.55-1.3); SGOT/AST 121 U/L (15-37); SGPT/ALT 98 U/L (13-61)
[2021-03-30 13:35] LABS: BILIRUBIN,TOTAL < 0.1 mg/dL (0.2-1); TOT PROT 4.8 g/dl (6.4-8.2)
[2021-03-30 13:36] LABS: ALK PHOS 81 U/L (45-117)
[2021-03-30] MEDS ORDERED: PT OWN MED DRAWER 7, Y5N ONE (20:59)
[2021-03-30] MEDS: ATORVASTATIN CA 40 MG TABLET (FP) PO SCH (21:37)
[2021-03-31] MEDS: SODIUM CHLORIDE 1,000 ML IV SCH (04:22)
[2021-03-31] MEDS: ERYTHROMYCIN BASE 250 MG TAB PO SCH ×2 (06:32→14:08)
[2021-03-31] MEDS: hydrALAZINE HCL 50 MG TABLET (FP) PO SCH ×2 (06:32→14:08)
[2021-03-31] MEDS: HEPARIN NA (PORCINE) 5,000 UNITS/ML 1ML VIAL SQ SCH (09:24)
[2021-03-31] MEDS: metroNIDAZOLE 500 MG TABLET PO SCH (09:24)
[2021-03-31] MEDS: TRIMETHOBENZAMIDE HCL 300 MG CAPSULE PO PRN (09:24)
[2021-03-31] MEDS: PANTOPRAZOLE 40 MG TABLET PO SCH (09:25)
[2021-03-31] MEDS: CARVEDILOL 25 MG TABLET (FP) PO SCH (09:25)
[2021-03-31] MEDS: LIPASE/PROTEASE/AMYLASE 36,000 UNIT CAPSULE PO SCH ×3 (10:33→16:36)
[2021-03-31 15:16] VITALS: BP 111/62; PULSE 71; TEMP 98.1
[2021-03-31 16:18] LABS: BASO % 0.3 % (0-2.0); EOS % 1.2 % (0-4.5); HEMATOCRIT 22.3 % (35.4-49); HEMOGLOBIN 7.3 GM/dL (11.7-16.9); MCH 30.2 pg (25.7-33.7); MCHC 32.8 g/dl (32.0-35.9); MEAN CELL VOLUME 92.2 fl (80-96); MEAN PLT VOLUME 9.1 fl (7.5-11.1); MONO % 6.7 % (3.8-10.2); NEUT % 67.8 % (42.8-82.8); PLATELET COUNT 214 10^3/uL (134-434); RBC 2.42 M/mm3 (4.00-5.60); RDW 14.7 % (11.9-15.9); WHITE BLOOD COUNT 6.3 K/mm3 (4.0-10.0)
[2021-03-31 16:39] LABS: CHLORIDE 119 mmol/L (98-107); SODIUM 143 mmol/L (136-145)
[2021-03-31 16:46] LABS: CALCIUM 7.5 mg/dL (8.5-10.1)
[2021-03-31 16:47] LABS: ALBUMIN 2.4 g/dl (3.4-5.0); ANION GAP 6 MMOL/L (8-16); CO2 18 mmol/L (21-32); GLUCOSE,RANDOM 169 mg/dL (74-106)
[2021-03-31 16:50] LABS: CREATININE 5.4 mg/dL (0.55-1.3); SGOT/AST 118 U/L (15-37); SGPT/ALT 108 U/L (13-61)
[2021-03-31 16:52] LABS: BILIRUBIN,TOTAL < 0.1 mg/dL (0.2-1); TOT PROT 5.2 g/dl (6.4-8.2)
[2021-03-31 16:53] LABS: ALK PHOS 86 U/L (45-117)
== END 2021-03-31 18:35 | disposition home or self-care (01) ==
LOC: JER 17:21 → INTOOBSV 03-25 00:27 → JERBED 03-25 00:27 → UNDOADMOB 03-25 00:27 → JERBED 03-25 03:09 → J4S 03-25 03:09 → J8W 03-25 11:30 → JERBED 03-30 17:36 → J4S 03-30 17:36 → J8W 03-30 17:36
PROVIDERS: ADMIT Internal Medicine; ATTEND Nurse Practitioner Acute Care
PROC: 3E033GC Introduction of Other Therapeutic Substance into Peripheral Vein, Percutaneous Approach (ICD-10-PCS; principal; 2021-03-24)
PROC: 3E023GC Introduction of Other Therapeutic Substance into Muscle, Percutaneous Approach (ICD-10-PCS; 2021-03-24)
PROC: 3E033NZ Introduction of Analgesics, Hypnotics, Sedatives into Peripheral Vein, Percutaneous Approach (ICD-10-PCS; 2021-03-24)
PROC: 3E0337Z Introduction of Electrolytic and Water Balance Substance into Peripheral Vein, Percutaneous Approach (ICD-10-PCS; 2021-03-24)
DX: I13.0 Hypertensive heart and chronic kidney disease with heart failure and stage 1 through stage 4 chronic kidney disease, or unspecified chronic kidney disease (principal); A04.8 Other specified bacterial intestinal infections; E78.5 Hyperlipidemia, unspecified; N17.9 Acute kidney failure, unspecified; E11.22 Type 2 diabetes mellitus with diabetic chronic kidney disease; D64.89 Other specified anemias; K31.84 Gastroparesis; K22.6 Gastro-esophageal laceration-hemorrhage syndrome; R80.9 Proteinuria, unspecified; N40.0 Benign prostatic hyperplasia without lower urinary tract symptoms; I45.81 Long QT syndrome; Z86.711 Personal history of pulmonary embolism; K59.00 Constipation, unspecified; I16.0 Hypertensive urgency; F41.8 Other specified anxiety disorders; Z89.422 Acquired absence of other left toe(s); Z89.421 Acquired absence of other right toe(s); Z86.19 Personal history of other infectious and parasitic diseases
CPT/HCPCS: 36415; 71045-TC-FY; 74176-TC; 80053; 80307; 81003; 82010; 82550; 82553; 82570; 82803; 82962; 83605; 83690; 83735; 84100; 84300; 84484; 85025; 85610; 85730; 86850; 86900; 86901; 87086; 87324; 87449; 93005; 93010; 96361; 96365; 96372; 96375; 96376; 99285-25; C9803; G0378; J0131; J1644; U0003; U0005

== ENCOUNTER 2021-04-04 14:07 | Inpatient (IN) | payer OTHER ==
[2021-04-04] MEDS ORDERED: METOCLOPRAMIDE HCL INJECTION 10 MG/2 ML VIAL IVPUSH ONE (14:42)
[2021-04-04] MEDS ORDERED: FAMOTIDINE 20 MG/50 ML IVPB 20 MG/50 ML MG IVPB ONE ×2 (14:43→15:05)
[2021-04-04] MEDS ORDERED: SODIUM CHLORIDE 0.9% 500 ML INFUS.BAG IV ONE (14:43)
[2021-04-04] MEDS ORDERED: MAG HYDROX/AL HYDROX/SIMETH -MYLANTA- ORAL SUSPENSION PO ONE (14:43)
[2021-04-04] MEDS ORDERED: PANTOPRAZOLE SODIUM 40 MG VIAL IVPUSH ONE (14:49)
[2021-04-04] MEDS ORDERED: ACETAMINOPHEN 1000 MG/100 ML VIAL IVPB ONE (15:00)
[2021-04-04] MEDS ORDERED: FAMOTIDINE/PF 20 MG/2 ML VIAL IVPB ONE (15:00)
[2021-04-04] MEDS ORDERED: hydrALAZINE HCL 20 MG/ML VIAL IVPUSH ONE (15:00)
[2021-04-04] MEDS ORDERED: METOCLOPRAMIDE HCL INJECTION 10 MG/2 ML VIAL ONE (15:12)
[2021-04-04] MEDS ORDERED: hydrALAZINE HCL 20 MG/ML VIAL ONE ×2 (15:12→21:35)
[2021-04-04] MEDS ORDERED: ACETAMINOPHEN INJECTION 100 ML IVPB ONE (15:12)
[2021-04-04] MEDS ORDERED: PANTOPRAZOLE SODIUM 40 MG/100 ML BAG IVPB ONE (15:13)
[2021-04-04] MEDS ORDERED: MAG HYDROX/AL HYDROX/SIMETH 30 ML UNIT-DOSE CUP ONE (15:13)
[2021-04-04 15:42] LABS: BASO % 0.3 % (0-2.0); EOS % 0.2 % (0-4.5); HEMATOCRIT 26.2 % (35.4-49); HEMOGLOBIN 8.6 GM/dL (11.7-16.9); LYMPH % 9.7 % (8-40); MCH 29.5 pg (25.7-33.7); MCHC 32.7 g/dl (32.0-35.9); MEAN CELL VOLUME 90.5 fl (80-96); MEAN PLT VOLUME 7.9 fl (7.5-11.1); MONO % 5.6 % (3.8-10.2); NEUT % 84.2 % (42.8-82.8); PLATELET COUNT 301 10^3/uL (134-434); RDW 14.7 % (11.9-15.9); WHITE BLOOD COUNT 13.2 K/mm3 (4.0-10.0)
[2021-04-04] MEDS ORDERED: FAMOTIDINE IVPB ONE (16:00)
[2021-04-04] MEDS ORDERED: WATER IVPB ONE (16:00)
[2021-04-04] MEDS ORDERED: DEXTROSE 5% IVPB ONE (16:00)
[2021-04-04 16:06] LABS: CREATININE 4.8 mg/dL (0.55-1.3)
[2021-04-04 16:08] LABS: BILIRUBIN,TOTAL 0.3 mg/dL (0.2-1); TOT PROT 6.5 g/dl (6.4-8.2)
[2021-04-04 17:20] LABS: ALBUMIN 3.1 g/dl (3.4-5.0); CALCIUM 8.9 mg/dL (8.5-10.1)
[2021-04-04] MEDS ORDERED: hydrALAZINE HCL 20 MG/ML VIAL IVPUSH PRN ×2 (17:24→17:30)
[2021-04-04] MEDS ORDERED: METOPROLOL TARTRATE 5 MG/5 ML VIAL IVPUSH PRN ×2 (17:25→17:31)
[2021-04-04] MEDS ORDERED: METOCLOPRAMIDE HCL INJECTION 10 MG/2 ML VIAL IVPUSH PRN (17:25)
[2021-04-04 18:29] LABS: PHOSPHOROUS 3.7 mg/dL (2.5-4.9)
[2021-04-04] MEDS ORDERED: METOPROLOL TARTRATE 5 MG/5 ML VIAL ONE (19:10)
[2021-04-04] MEDS: LIPASE/PROTEASE/AMYLASE 36,000 UNIT CAPSULE PO SCH (21:18)
[2021-04-04] MEDS ORDERED: hydrALAZINE HCL 25 MG TABLET (FP) ONE (21:34)
[2021-04-04] MEDS ORDERED: ATORVASTATIN CA 40 MG TABLET (FP) ONE (21:34)
[2021-04-04] MEDS ORDERED: CARVEDILOL 12.5 MG TABLET (FP) ONE (21:34)
[2021-04-04] MEDS: ATORVASTATIN CA 40 MG TABLET (FP) PO SCH (21:42)
[2021-04-04] MEDS: CARVEDILOL 25 MG TABLET (FP) PO SCH (21:42)
[2021-04-04] MEDS: hydrALAZINE HCL 50 MG TABLET (FP) PO SCH (21:42)
[2021-04-04] MEDS ORDERED: PANTOPRAZOLE 40 MG TABLET PO SCH (22:00)
[2021-04-04] MEDS ORDERED: ACETAMINOPHEN 1000 MG/100 ML VIAL IVPB PRN (22:16)
[2021-04-04] MEDS: SODIUM CHLORIDE 0.45% 1,000 ML IV SCH (23:23)
[2021-04-05 00:09] VITALS: BMI 23.3
[2021-04-05] MEDS: hydrALAZINE HCL 50 MG TABLET (FP) PO SCH ×3 (05:11→22:09)
[2021-04-05] MEDS: SODIUM CHLORIDE 0.45% 1,000 ML IV SCH ×2 (07:04→13:00)
[2021-04-05] MEDS ORDERED: PT OWN MED DRAWER 7, Y5N ONE ×3 (09:46→16:42)
[2021-04-05] MEDS: PANTOPRAZOLE SODIUM 40 MG VIAL IVPUSH SCH (09:49)
[2021-04-05] MEDS: CARVEDILOL 25 MG TABLET (FP) PO SCH ×2 (09:49→22:09)
[2021-04-05] MEDS: LIPASE/PROTEASE/AMYLASE 36,000 UNIT CAPSULE PO SCH ×3 (09:52→16:45)
[2021-04-05 10:17] LABS: BASO % 0.3 % (0-2.0); EOS % 0.8 % (0-4.5); HEMATOCRIT 21.2 % (35.4-49); HEMOGLOBIN 7.1 GM/dL (11.7-16.9); LYMPH % 18.8 % (8-40); MCH 30.8 pg (25.7-33.7); MCHC 33.5 g/dl (32.0-35.9); MEAN PLT VOLUME 8.8 fl (7.5-11.1); MONO % 6.5 % (3.8-10.2); NEUT % 73.6 % (42.8-82.8); PLATELET COUNT 226 10^3/uL (134-434); RBC 2.31 M/mm3 (4.00-5.60); RDW 14.6 % (11.9-15.9); WHITE BLOOD COUNT 10.7 K/mm3 (4.0-10.0)
[2021-04-05 10:32] LABS: BLOOD UREA NITROGEN 24.9 mg/dL (7-18)
[2021-04-05 10:35] LABS: CREATININE 4.7 mg/dL (0.55-1.3)
[2021-04-05 10:37] LABS: BILIRUBIN,TOTAL 0.2 mg/dL (0.2-1); TOT PROT 4.9 g/dl (6.4-8.2)
[2021-04-05 10:43] LABS: ALBUMIN 2.2 g/dl (3.4-5.0); CALCIUM 7.5 mg/dL (8.5-10.1)
[2021-04-05] MEDS ORDERED: POTASSIUM CHLORIDE TABS 20 MEQ TABLET.ER (FP) PO ONE ×2 (12:10→15:59)
[2021-04-05] MEDS: ATORVASTATIN CA 40 MG TABLET (FP) PO SCH (22:09)
[2021-04-06] MEDS: hydrALAZINE HCL 50 MG TABLET (FP) PO SCH ×2 (06:10→13:47)
[2021-04-06] MEDS ORDERED: PT OWN MED DRAWER 7, Y5N ONE ×3 (09:26→17:13)
[2021-04-06] MEDS: PANTOPRAZOLE SODIUM 40 MG VIAL IVPUSH SCH (09:28)
[2021-04-06] MEDS: CARVEDILOL 25 MG TABLET (FP) PO SCH (09:28)
[2021-04-06] MEDS: LIPASE/PROTEASE/AMYLASE 36,000 UNIT CAPSULE PO SCH ×3 (09:28→17:14)
[2021-04-06] MEDS: SODIUM CHLORIDE 0.45% 1,000 ML IV SCH ×2 (09:29→13:43)
[2021-04-06 11:04] LABS: BASO % 0.3 % (0-2.0); HEMATOCRIT 21.6 % (35.4-49); HEMOGLOBIN 7.3 GM/dL (11.7-16.9); LYMPH % 22.4 % (8-40); MCH 30.8 pg (25.7-33.7); MCHC 33.8 g/dl (32.0-35.9); MEAN CELL VOLUME 90.9 fl (80-96); MEAN PLT VOLUME 8.6 fl (7.5-11.1); MONO % 5.9 % (3.8-10.2); NEUT % 70.4 % (42.8-82.8); PLATELET COUNT 240 10^3/uL (134-434); RBC 2.37 M/mm3 (4.00-5.60); RDW 14.5 % (11.9-15.9); WHITE BLOOD COUNT 8.7 K/mm3 (4.0-10.0)
[2021-04-06 11:18] LABS: CALCIUM 7.6 mg/dL (8.5-10.1)
[2021-04-06 11:19] LABS: ALBUMIN 2.1 g/dl (3.4-5.0); BLOOD UREA NITROGEN 25.6 mg/dL (7-18); MAGNESIUM 1.9 mg/dL (1.8-2.4)
[2021-04-06 11:22] LABS: CREATININE 4.6 mg/dL (0.55-1.3)
[2021-04-06 11:23] LABS: BILIRUBIN,TOTAL 0.6 mg/dL (0.2-1)
[2021-04-06 11:24] LABS: TOT PROT 4.7 g/dl (6.4-8.2)
[2021-04-06 14:32] VITALS: BP 102/54; PULSE 69; TEMP 98.4
[2021-04-06] MEDS ORDERED: HEPARIN NA (PORCINE) 5,000 UNITS/ML 1ML VIAL SQ SCH (22:00)
== END 2021-04-06 18:21 | disposition home or self-care (01) | DRG 74 ==
LOC: JER 14:07 → JERBED 15:34 → J6S 23:19
PROVIDERS: ADMIT Internal Medicine; ATTEND Nurse Practitioner Family
DX: E11.43 Type 2 diabetes mellitus with diabetic autonomic (poly)neuropathy (principal); I50.32 Chronic diastolic (congestive) heart failure; I13.0 Hypertensive heart and chronic kidney disease with heart failure and stage 1 through stage 4 chronic kidney disease, or unspecified chronic kidney disease; N17.9 Acute kidney failure, unspecified; E87.3 Alkalosis; E78.5 Hyperlipidemia, unspecified; E11.22 Type 2 diabetes mellitus with diabetic chronic kidney disease; N18.9 Chronic kidney disease, unspecified; Z86.711 Personal history of pulmonary embolism; Z86.718 Personal history of other venous thrombosis and embolism; D64.9 Anemia, unspecified; K31.84 Gastroparesis; E86.0 Dehydration
CPT/HCPCS: 36415; 71045-TC-FY; 80053; 82550; 82553; 82962; 83690; 83735; 84100; 84484; 85025; 93005; 93010; 99285-25; C9803; J0131; U0003; U0005

== ENCOUNTER 2021-06-02 09:48 | Inpatient (IN) | payer OTHER ==
[2021-06-02] MEDS ORDERED: SODIUM CHLORIDE 1,000 ML IV STA ×2 (10:50→14:58)
[2021-06-02] MEDS ORDERED: HYDROmorphone HCL CARPU-JECT 2 MG/1 ML DISP.SYRIN IVPB ONE (10:50)
[2021-06-02] MEDS ORDERED: METOCLOPRAMIDE HCL INJECTION 10 MG/2 ML VIAL IVPUSH ONE (10:50)
[2021-06-02] MEDS ORDERED: HYDROmorphone HCl 2 MG/ML VIAL ONE (11:14)
[2021-06-02] MEDS ORDERED: METOCLOPRAMIDE HCL INJECTION 10 MG/2 ML VIAL ONE (11:15)
[2021-06-02 12:19] LABS: BASO % 0.3 % (0-2.0); HEMATOCRIT 30.9 % (35.4-49); LYMPH % 6.6 % (8-40); MCH 29.4 pg (25.7-33.7); MCHC 32.2 g/dl (32.0-35.9); MEAN CELL VOLUME 91.4 fl (80-96); MEAN PLT VOLUME 9.4 fl (7.5-11.1); MONO % 7.2 % (3.8-10.2); NEUT % 85.9 % (42.8-82.8); PLATELET COUNT 278 10^3/uL (134-434); RBC 3.38 M/mm3 (4.00-5.60); RDW 15.4 % (11.9-15.9)
[2021-06-02 12:28] LABS: CHLORIDE 107 mmol/L (98-107); SODIUM 149 mmol/L (136-145)
[2021-06-02 12:29] LABS: INR 1.03 (0.83-1.09); PROTHROMBIN TIME (PATIENT) 11.9 SEC (9.7-13.0)
[2021-06-02 12:30] LABS: ANION GAP 12 MMOL/L (8-16); CALCIUM 8.3 mg/dL (8.5-10.1); CO2 30 mmol/L (21-32); LIPASE 47 U/L (73-393)
[2021-06-02 12:31] LABS: GLUCOSE,RANDOM 132 mg/dL (74-106); MAGNESIUM 2.2 mg/dL (1.8-2.4)
[2021-06-02 12:33] LABS: SGOT/AST 24 U/L (15-37); SGPT/ALT 19 U/L (13-61)
[2021-06-02 12:35] LABS: BILIRUBIN,TOTAL 0.3 mg/dL (0.2-1); TOT PROT 6.5 g/dl (6.4-8.2)
[2021-06-02 12:36] LABS: ALK PHOS 112 U/L (45-117)
[2021-06-02 12:51] LABS: VENOUS BASE EXCESS 6.3 mmol/L (-2-2); VENOUS O2 SATURATION 77.6 % (70-80); VENOUS PH 7.395 (7.310-7.410)
[2021-06-02] MEDS ORDERED: FAMOTIDINE 20 MG/50 ML IVPB 20 MG/50 ML MG IVPB ONE ×2 (12:57→13:06)
[2021-06-02 13:47] LABS: BLOOD UREA NITROGEN 79.4 mg/dL (7-18)
[2021-06-02] MEDS: SODIUM CHLORIDE 1,000 ML IV SCH ×2 (14:05→22:56)
[2021-06-02 14:35] LABS: CREATININE 8.6 mg/dL (0.55-1.3)
[2021-06-02] MEDS: hydrALAZINE HCL 50 MG TABLET (FP) PO SCH ×2 (22:56)
[2021-06-02 23:34] LABS: CHLORIDE 112 mmol/L (98-107); SODIUM 150 mmol/L (136-145)
[2021-06-02 23:36] LABS: ANION GAP 8 MMOL/L (8-16); BLOOD UREA NITROGEN 75.7 mg/dL (7-18); CALCIUM 7.4 mg/dL (8.5-10.1); CO2 30 mmol/L (21-32); GLUCOSE,RANDOM 105 mg/dL (74-106)
[2021-06-02 23:48] VITALS: BMI 28.0
[2021-06-03 04:20] LABS: EPI CELLS 21 /uL (0-25.1); HYALINE CASTS 2 /uL (0-3.1); PH,URINE 6.5 (5.0-8.0); URINE APPEARANCE CLEAR; URINE BACTERIA 7 /uL (0-1359); URINE BILIRUBIN NEGATIVE (NEGATIVE); URINE COLOR YELLOW; URINE GLUCOSE (UA) TRACE (NEGATIVE); URINE KETONE NEGATIVE (NEGATIVE); URINE LEUK ESTERASE NEGATIVE (NEGATIVE); URINE NITRITE NEGATIVE (NEGATIVE); URINE PROTEIN 4+ (NEGATIVE); URINE RBC 11 /uL (0-23.9); URINE UROBILINOGEN 0.2 mg/dL (0.2-1.0); URINE WBC 9 /uL (0-25.8)
[2021-06-03 04:25] LABS: COCAINE, UR NEGATIVE (NEGATIVE); METHADONE, UR NEGATIVE (NEGATIVE); OPIATES, URI NEGATIVE (NEGATIVE); PHENCYCLIDINE,URINE NEGATIVE (NEGATIVE); URINE BARBITURATES NEGATIVE (NEGATIVE); URINE BENZODIAZEPINES NEGATIVE (NEGATIVE)
[2021-06-03 04:38] LABS: URINE AMPHETAMINES NEGATIVE (NEGATIVE)
[2021-06-03] MEDS ORDERED: METOCLOPRAMIDE HCL INJECTION 10 MG/2 ML VIAL IVPUSH PRN (04:56)
[2021-06-03] MEDS ORDERED: SODIUM CHLORIDE 0.45% 1,000 ML IV SCH (05:30)
[2021-06-03] MEDS ORDERED: HYDROmorphone HCl 2 MG/ML VIAL IM PRN (05:52)
[2021-06-03] MEDS ORDERED: HEPARIN NA (PORCINE) 5,000 UNITS/ML 1ML VIAL SQ SCH (06:00)
[2021-06-03] MEDS: hydrALAZINE HCL 50 MG TABLET (FP) PO SCH ×3 (06:34→23:37)
[2021-06-03] MEDS: INSULIN SLIDING SCALE (NOVOLOG) 1 VIAL SQ SCH ×4 (06:40→23:42)
[2021-06-03 07:36] LABS: BASO % 0.2 % (0-2.0); EOS % 0.5 % (0-4.5); HEMATOCRIT 27.9 % (35.4-49); LYMPH % 18.7 % (8-40); MCH 29.3 pg (25.7-33.7); MCHC 32.3 g/dl (32.0-35.9); MEAN CELL VOLUME 90.9 fl (80-96); MEAN PLT VOLUME 9.1 fl (7.5-11.1); MONO % 7.7 % (3.8-10.2); NEUT % 72.9 % (42.8-82.8); PLATELET COUNT 217 10^3/uL (134-434); RBC 3.07 M/mm3 (4.00-5.60); RDW 15.4 % (11.9-15.9); WHITE BLOOD COUNT 14.2 K/mm3 (4.0-10.0)
[2021-06-03 08:08] LABS: CHLORIDE 109 mmol/L (98-107); SODIUM 147 mmol/L (136-145)
[2021-06-03 08:15] LABS: ANION GAP 9 MMOL/L (8-16); BLOOD UREA NITROGEN 70.5 mg/dL (7-18); CALCIUM 7.9 mg/dL (8.5-10.1); CO2 29 mmol/L (21-32); GLUCOSE,RANDOM 85 mg/dL (74-106)
[2021-06-03 08:16] LABS: ALBUMIN 2.7 g/dl (3.4-5.0); MAGNESIUM 1.8 mg/dL (1.8-2.4); SGOT/AST 19 U/L (15-37); SGPT/ALT 14 U/L (13-61)
[2021-06-03 08:18] LABS: BILIRUBIN,TOTAL 0.3 mg/dL (0.2-1); PHOSPHOROUS 5.7 mg/dL (2.5-4.9); TOT PROT 5.8 g/dl (6.4-8.2)
[2021-06-03 08:19] LABS: ALK PHOS 100 U/L (45-117)
[2021-06-03] MEDS ORDERED: ASPIRIN 81 MG CHEWABLE TABLETS PO ONE (08:30)
[2021-06-03] MEDS ORDERED: METOPROLOL TARTRATE 25 MG TABLET (FP) PO ONE (08:30)
[2021-06-03 08:57] LABS: IRON SERUM 23 ug/dL (50-175); TOTAL IRON BINDING CAPACITY 221 ug/dL (250-450)
[2021-06-03] MEDS: LIPASE/PROTEASE/AMYLASE 36,000 UNIT CAPSULE PO SCH ×3 (09:02→16:54)
[2021-06-03 09:33] LABS: CREATININE 7.6 mg/dL (0.55-1.3)
[2021-06-03 10:00] LABS: RETICULOCYTES 1.07 % (0.5-1.5)
[2021-06-03] MEDS ORDERED: CARVEDILOL 25 MG TABLET (FP) PO SCH (10:00)
[2021-06-03] MEDS ORDERED: HEPARIN NA (PORCINE) 5,000 UNITS/ML 1ML VIAL IVPUSH PRN ×2 (10:33)
[2021-06-03] MEDS ORDERED: HEPARIN INFUSION - 25,000 UNITS/500 ML INFUS.BAG IVPB SCH (10:45)
[2021-06-03] MEDS ORDERED: PANTOPRAZOLE SODIUM 40 MG in SODIUM CHLORIDE 100 ML IVPB SCH (10:45)
[2021-06-03] MEDS ORDERED: PANTOPRAZOLE SODIUM 40 MG VIAL IVPB SCH (11:45)
[2021-06-03 13:01] LABS: CHOLESTEROL 279 mg/dL (50-200)
[2021-06-03 13:02] LABS: LDL CHOLESTEROL (ONLY SJRH) 170 mg/dL (5-100); TRIGLYCERIDES 188 mg/dL (0-150)
[2021-06-03 13:03] LABS: HDL CHOLESTEROL 63 mg/dL (40-60)
[2021-06-03] MEDS: METOPROLOL TARTRATE 50 MG TABLET (FP) PO SCH (23:37)
[2021-06-03] MEDS: ATORVASTATIN CA 40 MG TABLET (FP) PO SCH (23:37)
[2021-06-03] MEDS: HEPARIN NA (PORCINE) 5,000 UNITS/ML 1ML VIAL SQ SCH (23:37)
[2021-06-04] MEDS: INSULIN SLIDING SCALE (NOVOLOG) 1 VIAL SQ SCH ×4 (06:25→22:27)
[2021-06-04] MEDS: hydrALAZINE HCL 50 MG TABLET (FP) PO SCH ×3 (06:30→22:24)
[2021-06-04] MEDS: HEPARIN NA (PORCINE) 5,000 UNITS/ML 1ML VIAL SQ SCH ×3 (06:30→22:24)
[2021-06-04] MEDS: LIPASE/PROTEASE/AMYLASE 36,000 UNIT CAPSULE PO SCH ×3 (08:36→17:00)
[2021-06-04] MEDS: ASPIRIN COATED 81 MG TABLET.EC PO SCH (09:39)
[2021-06-04] MEDS: METOPROLOL TARTRATE 50 MG TABLET (FP) PO SCH ×2 (09:39→22:24)
[2021-06-04] MEDS: PANTOPRAZOLE SODIUM 40 MG VIAL IVPUSH SCH (09:39)
[2021-06-04 12:44] LABS: BASO % 0.5 % (0-2.0); EOS % 2.4 % (0-4.5); HEMATOCRIT 22.7 % (35.4-49); HEMOGLOBIN 7.3 GM/dL (11.7-16.9); LYMPH % 27.6 % (8-40); MCH 29.7 pg (25.7-33.7); MCHC 32.3 g/dl (32.0-35.9); MEAN CELL VOLUME 92.1 fl (80-96); MEAN PLT VOLUME 9.5 fl (7.5-11.1); MONO % 7.4 % (3.8-10.2); NEUT % 62.1 % (42.8-82.8); PLATELET COUNT 174 10^3/uL (134-434); RBC 2.46 M/mm3 (4.00-5.60); RDW 14.9 % (11.9-15.9); WHITE BLOOD COUNT 9.4 K/mm3 (4.0-10.0)
[2021-06-04 13:04] LABS: CALCIUM 7.4 mg/dL (8.5-10.1)
[2021-06-04 13:05] LABS: ALBUMIN 2.3 g/dl (3.4-5.0); BLOOD UREA NITROGEN 67.7 mg/dL (7-18); MAGNESIUM 1.8 mg/dL (1.8-2.4)
[2021-06-04 13:08] LABS: CREATININE 7.1 mg/dL (0.55-1.3)
[2021-06-04 13:09] LABS: BILIRUBIN,TOTAL 0.2 mg/dL (0.2-1)
[2021-06-04] MEDS: ATORVASTATIN CA 40 MG TABLET (FP) PO SCH (22:24)
[2021-06-05] MEDS: HEPARIN NA (PORCINE) 5,000 UNITS/ML 1ML VIAL SQ SCH ×3 (05:16→22:45)
[2021-06-05] MEDS: hydrALAZINE HCL 50 MG TABLET (FP) PO SCH ×3 (05:16→22:45)
[2021-06-05] MEDS: INSULIN SLIDING SCALE (NOVOLOG) 1 VIAL SQ SCH ×4 (06:40→22:45)
[2021-06-05 07:07] LABS: HEMATOCRIT 26.1 % (35.4-49); HEMOGLOBIN 8.5 GM/dL (11.7-16.9); MCH 29.6 pg (25.7-33.7); MCHC 32.7 g/dl (32.0-35.9); MEAN CELL VOLUME 90.6 fl (80-96); MEAN PLT VOLUME 9.4 fl (7.5-11.1); PLATELET COUNT 184 10^3/uL (134-434); RBC 2.88 M/mm3 (4.00-5.60); RDW 14.4 % (11.9-15.9); WHITE BLOOD COUNT 8.8 K/mm3 (4.0-10.0)
[2021-06-05] MEDS: ASPIRIN COATED 81 MG TABLET.EC PO SCH (09:02)
[2021-06-05] MEDS: PANTOPRAZOLE SODIUM 40 MG VIAL IVPUSH SCH (09:02)
[2021-06-05] MEDS: LIPASE/PROTEASE/AMYLASE 36,000 UNIT CAPSULE PO SCH ×3 (09:02→17:16)
[2021-06-05] MEDS: METOPROLOL TARTRATE 50 MG TABLET (FP) PO SCH ×2 (09:02→22:45)
[2021-06-05 10:32] LABS: BLOOD UREA NITROGEN 63.3 mg/dL (7-18); CALCIUM 7.8 mg/dL (8.5-10.1)
[2021-06-05 10:33] LABS: ALBUMIN 2.5 g/dl (3.4-5.0)
[2021-06-05 10:35] LABS: CREATININE 7.2 mg/dL (0.55-1.3)
[2021-06-05 10:37] LABS: BILIRUBIN,TOTAL 0.2 mg/dL (0.2-1); TOT PROT 5.4 g/dl (6.4-8.2)
[2021-06-05 13:36] LABS: ANISOCYTOSIS 0; HELMET CELLS 0; HOWELL-JOLLY BODIES 0; MACROCYTOSIS 0; OVALOCYTE 0; PLATELET ESTIMATE NORMAL; ROULEAU 0; SICKELED CELLS 0; TARGET CELLS 0; TEAR DROP CELLS 0; TOXIC GRANULATION 0
[2021-06-05] MEDS: SODIUM CHLORIDE 0.45% 1,000 ML IV SCH (13:53)
[2021-06-05] MEDS: ATORVASTATIN CA 40 MG TABLET (FP) PO SCH (22:45)
[2021-06-06] MEDS: hydrALAZINE HCL 50 MG TABLET (FP) PO SCH ×3 (05:39→21:26)
[2021-06-06] MEDS: HEPARIN NA (PORCINE) 5,000 UNITS/ML 1ML VIAL SQ SCH ×3 (05:39→21:26)
[2021-06-06] MEDS: INSULIN SLIDING SCALE (NOVOLOG) 1 VIAL SQ SCH ×4 (06:56→21:30)
[2021-06-06 07:31] LABS: BASO % 0.2 % (0-2.0); EOS % 3.3 % (0-4.5); HEMATOCRIT 24.2 % (35.4-49); LYMPH % 25.2 % (8-40); MCH 29.9 pg (25.7-33.7); MCHC 32.9 g/dl (32.0-35.9); MEAN CELL VOLUME 90.6 fl (80-96); MEAN PLT VOLUME 9.1 fl (7.5-11.1); MONO % 8.4 % (3.8-10.2); NEUT % 62.9 % (42.8-82.8); PLATELET COUNT 166 10^3/uL (134-434); RBC 2.68 M/mm3 (4.00-5.60); RDW 14.4 % (11.9-15.9); WHITE BLOOD COUNT 7.5 K/mm3 (4.0-10.0)
[2021-06-06 07:54] LABS: ALBUMIN 2.3 g/dl (3.4-5.0); BLOOD UREA NITROGEN 59.5 mg/dL (7-18); CALCIUM 7.5 mg/dL (8.5-10.1); MAGNESIUM 1.8 mg/dL (1.8-2.4)
[2021-06-06 07:57] LABS: CREATININE 6.8 mg/dL (0.55-1.3)
[2021-06-06 07:58] LABS: BILIRUBIN,TOTAL 0.2 mg/dL (0.2-1)
[2021-06-06] MEDS: LIPASE/PROTEASE/AMYLASE 36,000 UNIT CAPSULE PO SCH ×3 (08:02→17:31)
[2021-06-06] MEDS: SODIUM CHLORIDE 0.45% 1,000 ML IV SCH ×2 (09:18→14:33)
[2021-06-06] MEDS: METOPROLOL TARTRATE 50 MG TABLET (FP) PO SCH ×2 (09:20→21:26)
[2021-06-06] MEDS: PANTOPRAZOLE SODIUM 40 MG VIAL IVPUSH SCH (09:20)
[2021-06-06] MEDS: ASPIRIN COATED 81 MG TABLET.EC PO SCH (09:20)
[2021-06-06] MEDS ORDERED: POTASSIUM CHLORIDE TABS 20 MEQ TABLET.ER (FP) PO ONE (10:09)
[2021-06-06] MEDS: ATORVASTATIN CA 40 MG TABLET (FP) PO SCH (21:26)
[2021-06-07] MEDS: INSULIN SLIDING SCALE (NOVOLOG) 1 VIAL SQ SCH ×4 (06:32→21:43)
[2021-06-07] MEDS: HEPARIN NA (PORCINE) 5,000 UNITS/ML 1ML VIAL SQ SCH ×3 (06:32→21:43)
[2021-06-07] MEDS: hydrALAZINE HCL 50 MG TABLET (FP) PO SCH ×3 (06:32→21:24)
[2021-06-07 08:35] LABS: BASO % 0.3 % (0-2.0); EOS % 2.4 % (0-4.5); HEMATOCRIT 22.3 % (35.4-49); HEMOGLOBIN 7.5 GM/dL (11.7-16.9); LYMPH % 35.3 % (8-40); MCHC 33.4 g/dl (32.0-35.9); MEAN CELL VOLUME 89.9 fl (80-96); MEAN PLT VOLUME 9.9 fl (7.5-11.1); MONO % 9.1 % (3.8-10.2); NEUT % 52.9 % (42.8-82.8); PLATELET COUNT 152 10^3/uL (134-434); RBC 2.48 M/mm3 (4.00-5.60); RDW 14.2 % (11.9-15.9)
[2021-06-07 08:55] LABS: ALBUMIN 2.2 g/dl (3.4-5.0); CALCIUM 7.5 mg/dL (8.5-10.1); MAGNESIUM 1.8 mg/dL (1.8-2.4)
[2021-06-07 08:57] LABS: CREATININE 6.8 mg/dL (0.55-1.3)
[2021-06-07 08:59] LABS: BILIRUBIN,TOTAL 0.1 mg/dL (0.2-1); TOT PROT 4.7 g/dl (6.4-8.2)
[2021-06-07] MEDS: LIPASE/PROTEASE/AMYLASE 36,000 UNIT CAPSULE PO SCH ×3 (09:14→18:11)
[2021-06-07] MEDS: ASPIRIN COATED 81 MG TABLET.EC PO SCH (09:15)
[2021-06-07] MEDS: METOPROLOL TARTRATE 50 MG TABLET (FP) PO SCH ×2 (09:15→21:23)
[2021-06-07] MEDS: PANTOPRAZOLE SODIUM 40 MG VIAL IVPUSH SCH (09:15)
[2021-06-07] MEDS: ATORVASTATIN CA 40 MG TABLET (FP) PO SCH (21:24)
[2021-06-08] MEDS: hydrALAZINE HCL 50 MG TABLET (FP) PO SCH ×3 (06:03→22:42)
[2021-06-08] MEDS: HEPARIN NA (PORCINE) 5,000 UNITS/ML 1ML VIAL SQ SCH ×3 (06:03→22:42)
[2021-06-08] MEDS: INSULIN SLIDING SCALE (NOVOLOG) 1 VIAL SQ SCH ×4 (06:11→22:42)
[2021-06-08 07:35] LABS: BASO % 0.3 % (0-2.0); EOS % 2.7 % (0-4.5); HEMATOCRIT 24.4 % (35.4-49); MCH 29.7 pg (25.7-33.7); MCHC 32.7 g/dl (32.0-35.9); MEAN CELL VOLUME 90.8 fl (80-96); MEAN PLT VOLUME 9.8 fl (7.5-11.1); MONO % 10.2 % (3.8-10.2); NEUT % 50.8 % (42.8-82.8); PLATELET COUNT 181 10^3/uL (134-434); RBC 2.68 M/mm3 (4.00-5.60); RDW 14.9 % (11.9-15.9); WHITE BLOOD COUNT 8.7 K/mm3 (4.0-10.0)
[2021-06-08 07:56] LABS: ALBUMIN 2.4 g/dl (3.4-5.0); BLOOD UREA NITROGEN 56.6 mg/dL (7-18); CALCIUM 7.6 mg/dL (8.5-10.1); MAGNESIUM 1.6 mg/dL (1.8-2.4)
[2021-06-08 08:00] LABS: CREATININE 6.7 mg/dL (0.55-1.3)
[2021-06-08 08:01] LABS: BILIRUBIN,TOTAL 0.2 mg/dL (0.2-1); TOT PROT 5.1 g/dl (6.4-8.2)
[2021-06-08] MEDS: LIPASE/PROTEASE/AMYLASE 36,000 UNIT CAPSULE PO SCH ×4 (08:59→18:28)
[2021-06-08] MEDS: METOPROLOL TARTRATE 50 MG TABLET (FP) PO SCH ×2 (09:15→22:42)
[2021-06-08] MEDS: ASPIRIN COATED 81 MG TABLET.EC PO SCH (09:15)
[2021-06-08] MEDS: PANTOPRAZOLE SODIUM 40 MG VIAL IVPUSH SCH (09:16)
[2021-06-08] MEDS: ONDANSETRON 4 MG/2 ML VIAL IVPB SCH ×3 (14:21→22:42)
[2021-06-08] MEDS: ATORVASTATIN CA 40 MG TABLET (FP) PO SCH (22:42)
[2021-06-09] MEDS ORDERED: ONDANSETRON 4 MG/2 ML VIAL IVPB PRN ×2 (02:30→22:27)
[2021-06-09] MEDS: ONDANSETRON 4 MG/2 ML VIAL IVPB SCH (03:00)
[2021-06-09] MEDS: HEPARIN NA (PORCINE) 5,000 UNITS/ML 1ML VIAL SQ SCH ×3 (05:57→21:02)
[2021-06-09] MEDS: hydrALAZINE HCL 50 MG TABLET (FP) PO SCH ×3 (05:57→21:02)
[2021-06-09] MEDS: INSULIN SLIDING SCALE (NOVOLOG) 1 VIAL SQ SCH ×4 (06:01→21:08)
[2021-06-09 07:58] LABS: BASO % 0.3 % (0-2.0); HEMATOCRIT 22.6 % (35.4-49); HEMOGLOBIN 7.3 GM/dL (11.7-16.9); LYMPH % 31.3 % (8-40); MCH 29.6 pg (25.7-33.7); MCHC 32.5 g/dl (32.0-35.9); MEAN CELL VOLUME 91.1 fl (80-96); MEAN PLT VOLUME 9.9 fl (7.5-11.1); MONO % 9.7 % (3.8-10.2); NEUT % 56.7 % (42.8-82.8); PLATELET COUNT 176 10^3/uL (134-434); RBC 2.48 M/mm3 (4.00-5.60); RDW 14.7 % (11.9-15.9); WHITE BLOOD COUNT 8.4 K/mm3 (4.0-10.0)
[2021-06-09 08:09] LABS: CALCIUM 7.9 mg/dL (8.5-10.1)
[2021-06-09 08:10] LABS: ALBUMIN 2.2 g/dl (3.4-5.0); BLOOD UREA NITROGEN 56.5 mg/dL (7-18); MAGNESIUM 1.8 mg/dL (1.8-2.4)
[2021-06-09 08:12] LABS: CREATININE 6.8 mg/dL (0.55-1.3)
[2021-06-09 08:13] LABS: BILIRUBIN,TOTAL 0.1 mg/dL (0.2-1); TOT PROT 4.8 g/dl (6.4-8.2)
[2021-06-09] MEDS: LIPASE/PROTEASE/AMYLASE 36,000 UNIT CAPSULE PO SCH ×3 (08:33→16:42)
[2021-06-09] MEDS: PANTOPRAZOLE SODIUM 40 MG VIAL IVPUSH SCH (11:00)
[2021-06-09] MEDS: ASPIRIN COATED 81 MG TABLET.EC PO SCH (11:00)
[2021-06-09] MEDS: METOPROLOL TARTRATE 50 MG TABLET (FP) PO SCH ×2 (11:00→21:02)
[2021-06-09] MEDS ORDERED: IRON SUCROSE INJECTION 100 MG in SODIUM CHLORIDE 95 ML IVPB ONE (11:27)
[2021-06-09] MEDS: ATORVASTATIN CA 40 MG TABLET (FP) PO SCH (21:02)
[2021-06-09] MEDS ORDERED: METOCLOPRAMIDE HCL INJECTION 10 MG/2 ML VIAL IVPUSH PRN (22:27)
[2021-06-10] MEDS: hydrALAZINE HCL 50 MG TABLET (FP) PO SCH ×3 (06:29→22:24)
[2021-06-10] MEDS: HEPARIN NA (PORCINE) 5,000 UNITS/ML 1ML VIAL SQ SCH ×3 (06:34→22:25)
[2021-06-10] MEDS: INSULIN SLIDING SCALE (NOVOLOG) 1 VIAL SQ SCH ×4 (06:34→22:25)
[2021-06-10] MEDS: LIPASE/PROTEASE/AMYLASE 36,000 UNIT CAPSULE PO SCH ×3 (08:04→17:36)
[2021-06-10 09:58] LABS: BASO % 0.3 % (0-2.0); EOS % 1.9 % (0-4.5); HEMOGLOBIN 7.3 GM/dL (11.7-16.9); MCH 30.3 pg (25.7-33.7); MCHC 33.4 g/dl (32.0-35.9); MEAN CELL VOLUME 90.7 fl (80-96); MEAN PLT VOLUME 9.6 fl (7.5-11.1); MONO % 9.2 % (3.8-10.2); NEUT % 63.6 % (42.8-82.8); PLATELET COUNT 181 10^3/uL (134-434); RBC 2.42 M/mm3 (4.00-5.60); RDW 14.8 % (11.9-15.9); WHITE BLOOD COUNT 8.5 K/mm3 (4.0-10.0)
[2021-06-10 10:21] LABS: CHLORIDE 111 mmol/L (98-107); SODIUM 141 mmol/L (136-145)
[2021-06-10 10:31] LABS: ALBUMIN 2.4 g/dl (3.4-5.0); ANION GAP 6 MMOL/L (8-16); BLOOD UREA NITROGEN 58.1 mg/dL (7-18); CO2 24 mmol/L (21-32); GLUCOSE,RANDOM 147 mg/dL (74-106); MAGNESIUM 1.9 mg/dL (1.8-2.4)
[2021-06-10 10:33] LABS: CREATININE 7.2 mg/dL (0.55-1.3); SGPT/ALT 19 U/L (13-61)
[2021-06-10 10:34] LABS: SGOT/AST 19 U/L (15-37)
[2021-06-10] MEDS: PANTOPRAZOLE 40 MG TABLET PO SCH (10:34)
[2021-06-10 10:35] LABS: BILIRUBIN,TOTAL < 0.1 mg/dL (0.2-1); TOT PROT 5.1 g/dl (6.4-8.2)
[2021-06-10] MEDS: ASPIRIN COATED 81 MG TABLET.EC PO SCH (10:35)
[2021-06-10] MEDS: METOPROLOL TARTRATE 50 MG TABLET (FP) PO SCH ×2 (10:35→22:25)
[2021-06-10 10:36] LABS: ALK PHOS 71 U/L (45-117)
[2021-06-10] MEDS: ATORVASTATIN CA 40 MG TABLET (FP) PO SCH (22:24)
[2021-06-11] MEDS: hydrALAZINE HCL 50 MG TABLET (FP) PO SCH ×3 (06:21→21:49)
[2021-06-11] MEDS: HEPARIN NA (PORCINE) 5,000 UNITS/ML 1ML VIAL SQ SCH ×3 (06:21→21:49)
[2021-06-11] MEDS: INSULIN SLIDING SCALE (NOVOLOG) 1 VIAL SQ SCH ×4 (06:21→21:49)
[2021-06-11] MEDS: LIPASE/PROTEASE/AMYLASE 36,000 UNIT CAPSULE PO SCH ×3 (07:52→17:02)
[2021-06-11] MEDS: PANTOPRAZOLE 40 MG TABLET PO SCH (09:59)
[2021-06-11] MEDS: ASPIRIN COATED 81 MG TABLET.EC PO SCH (09:59)
[2021-06-11] MEDS: METOPROLOL TARTRATE 50 MG TABLET (FP) PO SCH ×2 (09:59→21:48)
[2021-06-11 12:12] LABS: BASO % 0.6 % (0-2.0); EOS % 1.6 % (0-4.5); HEMATOCRIT 22.6 % (35.4-49); HEMOGLOBIN 7.4 GM/dL (11.7-16.9); LYMPH % 29.9 % (8-40); MCH 29.7 pg (25.7-33.7); MCHC 32.5 g/dl (32.0-35.9); MEAN CELL VOLUME 91.2 fl (80-96); MEAN PLT VOLUME 10.3 fl (7.5-11.1); MONO % 8.2 % (3.8-10.2); NEUT % 59.7 % (42.8-82.8); PLATELET COUNT 215 10^3/uL (134-434); RBC 2.48 M/mm3 (4.00-5.60); RDW 14.9 % (11.9-15.9)
[2021-06-11 12:32] LABS: CALCIUM 7.7 mg/dL (8.5-10.1)
[2021-06-11 12:33] LABS: ALBUMIN 2.5 g/dl (3.4-5.0); BLOOD UREA NITROGEN 60.6 mg/dL (7-18)
[2021-06-11 12:35] LABS: BILIRUBIN,TOTAL 0.3 mg/dL (0.2-1)
[2021-06-11 12:36] LABS: CREATININE 7.1 mg/dL (0.55-1.3)
[2021-06-11] MEDS ORDERED: PORTA CATH FLUSH 10 ML IVPUSH PRN (13:52)
[2021-06-11] MEDS ORDERED: SODIUM CHLORIDE 250 ML IV PRN (14:43)
[2021-06-11] MEDS ORDERED: ONDANSETRON 4 MG/2 ML VIAL IVPUSH ONE (15:10)
[2021-06-11] MEDS: MIDAZOLAM HCL 2 MG/2 ML SINGLE DOSE VIAL IVPUSH SCH ×2 (15:11→15:40)
[2021-06-11] MEDS: ATORVASTATIN CA 40 MG TABLET (FP) PO SCH (21:49)
[2021-06-12] MEDS: hydrALAZINE HCL 50 MG TABLET (FP) PO SCH ×3 (05:35→21:01)
[2021-06-12] MEDS: HEPARIN NA (PORCINE) 5,000 UNITS/ML 1ML VIAL SQ SCH ×3 (05:35→21:02)
[2021-06-12] MEDS: INSULIN SLIDING SCALE (NOVOLOG) 1 VIAL SQ SCH ×4 (06:10→21:02)
[2021-06-12] MEDS: LIPASE/PROTEASE/AMYLASE 36,000 UNIT CAPSULE PO SCH ×3 (08:46→17:02)
[2021-06-12] MEDS: ASPIRIN COATED 81 MG TABLET.EC PO SCH (09:23)
[2021-06-12] MEDS: METOPROLOL TARTRATE 50 MG TABLET (FP) PO SCH ×2 (09:23→21:01)
[2021-06-12] MEDS: PANTOPRAZOLE 40 MG TABLET PO SCH (09:23)
[2021-06-12 10:10] LABS: BASO % 0.4 % (0-2.0); EOS % 0.9 % (0-4.5); HEMATOCRIT 21.7 % (35.4-49); LYMPH % 23.4 % (8-40); MCH 29.4 pg (25.7-33.7); MCHC 32.3 g/dl (32.0-35.9); MEAN CELL VOLUME 91.1 fl (80-96); MONO % 7.3 % (3.8-10.2); PLATELET COUNT 211 10^3/uL (134-434); RBC 2.38 M/mm3 (4.00-5.60); RDW 14.9 % (11.9-15.9); WHITE BLOOD COUNT 8.7 K/mm3 (4.0-10.0)
[2021-06-12 11:33] LABS: ALBUMIN 2.2 g/dl (3.4-5.0); BLOOD UREA NITROGEN 42.2 mg/dL (7-18); CALCIUM 7.8 mg/dL (8.5-10.1)
[2021-06-12 11:36] LABS: CREATININE 5.4 mg/dL (0.55-1.3)
[2021-06-12 11:37] LABS: BILIRUBIN,TOTAL 0.3 mg/dL (0.2-1); TOT PROT 4.7 g/dl (6.4-8.2)
[2021-06-12 11:39] LABS: MAGNESIUM 1.8 mg/dL (1.8-2.4)
[2021-06-12] MEDS: ATORVASTATIN CA 40 MG TABLET (FP) PO SCH (21:01)
[2021-06-13] MEDS: HEPARIN NA (PORCINE) 5,000 UNITS/ML 1ML VIAL SQ SCH ×3 (06:12→22:36)
[2021-06-13] MEDS: hydrALAZINE HCL 50 MG TABLET (FP) PO SCH ×3 (06:12→22:36)
[2021-06-13] MEDS: INSULIN SLIDING SCALE (NOVOLOG) 1 VIAL SQ SCH ×4 (06:16→22:37)
[2021-06-13] MEDS: LIPASE/PROTEASE/AMYLASE 36,000 UNIT CAPSULE PO SCH ×3 (08:08→16:45)
[2021-06-13] MEDS: ASPIRIN COATED 81 MG TABLET.EC PO SCH (09:30)
[2021-06-13] MEDS: METOPROLOL TARTRATE 50 MG TABLET (FP) PO SCH ×2 (09:30→22:36)
[2021-06-13] MEDS: PANTOPRAZOLE 40 MG TABLET PO SCH (09:30)
[2021-06-13 11:46] LABS: BASO % 0.5 % (0-2.0); EOS % 1.1 % (0-4.5); HEMATOCRIT 22.3 % (35.4-49); HEMOGLOBIN 7.3 GM/dL (11.7-16.9); LYMPH % 27.7 % (8-40); MCHC 32.6 g/dl (32.0-35.9); MEAN CELL VOLUME 92.1 fl (80-96); MEAN PLT VOLUME 9.9 fl (7.5-11.1); MONO % 7.7 % (3.8-10.2); PLATELET COUNT 221 10^3/uL (134-434); RBC 2.42 M/mm3 (4.00-5.60); RDW 14.8 % (11.9-15.9); WHITE BLOOD COUNT 9.4 K/mm3 (4.0-10.0)
[2021-06-13 12:06] LABS: CALCIUM 7.8 mg/dL (8.5-10.1)
[2021-06-13 12:07] LABS: ALBUMIN 2.4 g/dl (3.4-5.0); BLOOD UREA NITROGEN 48.4 mg/dL (7-18)
[2021-06-13 12:09] LABS: CREATININE 6.3 mg/dL (0.55-1.3)
[2021-06-13 12:13] LABS: BILIRUBIN,TOTAL 0.2 mg/dL (0.2-1)
[2021-06-13] MEDS: ATORVASTATIN CA 40 MG TABLET (FP) PO SCH (22:36)
[2021-06-14] MEDS: HEPARIN NA (PORCINE) 5,000 UNITS/ML 1ML VIAL SQ SCH ×3 (06:17→21:25)
[2021-06-14] MEDS: hydrALAZINE HCL 50 MG TABLET (FP) PO SCH ×3 (06:17→21:25)
[2021-06-14] MEDS: INSULIN SLIDING SCALE (NOVOLOG) 1 VIAL SQ SCH ×4 (06:42→21:30)
[2021-06-14] MEDS ORDERED: SODIUM CHLORIDE 250 ML IV PRN (07:49)
[2021-06-14] MEDS: LIPASE/PROTEASE/AMYLASE 36,000 UNIT CAPSULE PO SCH ×4 (08:30→17:11)
[2021-06-14] MEDS ORDERED: EPOETIN ALFA-EPBX 4,000 UNIT/ML VIAL IVPUSH ONE (09:00)
[2021-06-14 09:47] LABS: BASO % 0.4 % (0-2.0); EOS % 1.7 % (0-4.5); HEMATOCRIT 21.4 % (35.4-49); LYMPH % 24.7 % (8-40); MCH 29.8 pg (25.7-33.7); MEAN CELL VOLUME 90.5 fl (80-96); MEAN PLT VOLUME 9.2 fl (7.5-11.1); MONO % 7.3 % (3.8-10.2); NEUT % 65.9 % (42.8-82.8); PLATELET COUNT 229 10^3/uL (134-434); RBC 2.36 M/mm3 (4.00-5.60); RDW 14.8 % (11.9-15.9)
[2021-06-14 10:04] LABS: ALBUMIN 2.2 g/dl (3.4-5.0); BLOOD UREA NITROGEN 54.7 mg/dL (7-18); CALCIUM 7.9 mg/dL (8.5-10.1); MAGNESIUM 1.9 mg/dL (1.8-2.4)
[2021-06-14 10:07] LABS: CREATININE 6.3 mg/dL (0.55-1.3); PHOSPHOROUS 4.8 mg/dL (2.5-4.9)
[2021-06-14 10:09] LABS: BILIRUBIN,TOTAL 0.2 mg/dL (0.2-1); TOT PROT 4.8 g/dl (6.4-8.2)
[2021-06-14] MEDS: ASPIRIN COATED 81 MG TABLET.EC PO SCH (11:38)
[2021-06-14] MEDS: METOPROLOL TARTRATE 50 MG TABLET (FP) PO SCH ×2 (11:38→21:25)
[2021-06-14] MEDS: PANTOPRAZOLE 40 MG TABLET PO SCH (11:38)
[2021-06-14] MEDS: ATORVASTATIN CA 40 MG TABLET (FP) PO SCH (21:25)
[2021-06-15] MEDS: hydrALAZINE HCL 50 MG TABLET (FP) PO SCH (06:17)
[2021-06-15] MEDS: HEPARIN NA (PORCINE) 5,000 UNITS/ML 1ML VIAL SQ SCH ×2 (06:17→15:37)
[2021-06-15] MEDS: INSULIN SLIDING SCALE (NOVOLOG) 1 VIAL SQ SCH ×2 (06:23→11:54)
[2021-06-15] MEDS: LIPASE/PROTEASE/AMYLASE 36,000 UNIT CAPSULE PO SCH ×2 (08:07→12:22)
[2021-06-15] MEDS: ASPIRIN COATED 81 MG TABLET.EC PO SCH (09:41)
[2021-06-15] MEDS: PANTOPRAZOLE 40 MG TABLET PO SCH (09:41)
[2021-06-15] MEDS: METOPROLOL TARTRATE 50 MG TABLET (FP) PO SCH (09:41)
[2021-06-15] MEDS ORDERED: POLYETHYLENE GLYCOL (HEALTHYLAX) 3350 17 GM PACKET PO ONE (09:45)
[2021-06-15 09:46] LABS: BASO % 0.6 % (0-2.0); EOS % 1.6 % (0-4.5); HEMATOCRIT 24.9 % (35.4-49); HEMOGLOBIN 8.4 GM/dL (11.7-16.9); MCH 29.9 pg (25.7-33.7); MCHC 33.6 g/dl (32.0-35.9); MEAN PLT VOLUME 9.4 fl (7.5-11.1); MONO % 5.8 % (3.8-10.2); PLATELET COUNT 258 10^3/uL (134-434); RDW 15.1 % (11.9-15.9); WHITE BLOOD COUNT 9.2 K/mm3 (4.0-10.0)
[2021-06-15 10:08] LABS: SARS-CoV-2 NAA Not Detected (Not Detected)
[2021-06-15 10:21] LABS: CREATININE 4.8 mg/dL (0.55-1.3)
[2021-06-15 10:23] LABS: BILIRUBIN,TOTAL 0.2 mg/dL (0.2-1); CALCIUM 8.2 mg/dL (8.5-10.1); MAGNESIUM 1.9 mg/dL (1.8-2.4); TOT PROT 5.3 g/dl (6.4-8.2)
[2021-06-15 10:25] LABS: ALBUMIN 2.5 g/dl (3.4-5.0); BLOOD UREA NITROGEN 39.8 mg/dL (7-18)
[2021-06-15] MEDS ORDERED: BISACODYL 10 MG SUPP.RECT PR ONE (11:45)
[2021-06-15] MEDS ORDERED: LOSARTAN POTASSIUM 50 MG TABLET PO SCH (14:30)
[2021-06-15 14:48] VITALS: BP 124/64; PULSE 59; TEMP 97.9
[2021-06-15] MEDS ORDERED: hydrALAZINE HCL 50 MG TABLET (FP) PO SCH (22:00)
== END 2021-06-15 15:48 | disposition home or self-care (01) | DRG 73 ==
LOC: JER 09:48 → JERBED 17:54 → J4W 21:12 → J6S 06-09 21:24
PROVIDERS: ADMIT Internal Medicine; ATTEND Nurse Practitioner Family
PROC: 0JH63XZ Insertion of Tunneled Vascular Access Device into Chest Subcutaneous Tissue and Fascia, Percutaneous Approach (ICD-10-PCS; principal; 2021-06-11)
PROC: 02HV33Z Insertion of Infusion Device into Superior Vena Cava, Percutaneous Approach (ICD-10-PCS; 2021-06-11)
PROC: B518ZZA Fluoroscopy of Superior Vena Cava, Guidance (ICD-10-PCS; 2021-06-11)
PROC: 5A1D70Z Performance of Urinary Filtration, Intermittent, Less than 6 Hours Per Day (ICD-10-PCS; 2021-06-11)
DX: E11.43 Type 2 diabetes mellitus with diabetic autonomic (poly)neuropathy (principal); I21.4 Non-ST elevation (NSTEMI) myocardial infarction; N18.6 End stage renal disease; N17.9 Acute kidney failure, unspecified; I50.32 Chronic diastolic (congestive) heart failure; M62.82 Rhabdomyolysis; I16.1 Hypertensive emergency; I13.2 Hypertensive heart and chronic kidney disease with heart failure and with stage 5 chronic kidney disease, or end stage renal disease; E78.5 Hyperlipidemia, unspecified; E11.22 Type 2 diabetes mellitus with diabetic chronic kidney disease; Z86.718 Personal history of other venous thrombosis and embolism; Z86.711 Personal history of pulmonary embolism; E11.65 Type 2 diabetes mellitus with hyperglycemia; N40.0 Benign prostatic hyperplasia without lower urinary tract symptoms; E87.6 Hypokalemia; K31.84 Gastroparesis; K86.81 Exocrine pancreatic insufficiency; D63.8 Anemia in other chronic diseases classified elsewhere
CPT/HCPCS: 36415; 36430; 36558; 71045-TC-FY; 74176-TC; 76775-TC; 80048; 80053; 80061; 80307; 81003; 82010; 82272; 82550; 82553; 82803; 82962; 83036; 83540; 83550; 83690; 83735; 84100; 84484; 85025; 85027; 85045; 85610; 85730; 86705; 86709; 86803; 86850; 86900; 86901; 86922; 87340; 87517; 93005; 93010; 93306-TC; 93986; 97116-GP; 97161-GP; 99285-25; C9803; J1644; J1756; P9058; Q5106; U0003; U0005

== ENCOUNTER 2021-06-18 21:22 | Inpatient (IN) | payer OTHER ==
[2021-06-18] MEDS ORDERED: ACETAMINOPHEN 1000 MG/100 ML BAG IVPB ONE (22:43)
[2021-06-18] MEDS ORDERED: SODIUM CHLORIDE 0.9% 500 ML INFUS.BAG IV ONE (22:43)
[2021-06-18] MEDS ORDERED: FAMOTIDINE 20 MG/50 ML IVPB 20 MG/50 ML MG IVPB ONE ×2 (22:43→22:58)
[2021-06-18] MEDS ORDERED: METOCLOPRAMIDE HCL INJECTION 10 MG/2 ML VIAL IVPUSH ONE (22:45)
[2021-06-18] MEDS ORDERED: ACETAMINOPHEN INJECTION 100 ML IVPB ONE (22:58)
[2021-06-18] MEDS ORDERED: METOCLOPRAMIDE HCL INJECTION 10 MG/2 ML VIAL ONE (22:58)
[2021-06-18 23:27] LABS: BASO % 0.6 % (0-2.0); HEMATOCRIT 32.2 % (35.4-49); HEMOGLOBIN 10.6 GM/dL (11.7-16.9); LYMPH % 7.4 % (8-40); MCH 29.7 pg (25.7-33.7); MCHC 32.8 g/dl (32.0-35.9); MEAN CELL VOLUME 90.4 fl (80-96); MEAN PLT VOLUME 8.4 fl (7.5-11.1); MONO % 3.6 % (3.8-10.2); NEUT % 88.4 % (42.8-82.8); PLATELET COUNT 323 10^3/uL (134-434); RBC 3.56 M/mm3 (4.00-5.60); RDW 15.3 % (11.9-15.9); WHITE BLOOD COUNT 12.8 K/mm3 (4.0-10.0)
[2021-06-18 23:51] LABS: BLOOD UREA NITROGEN 40.2 mg/dL (7-18); CALCIUM 9.1 mg/dL (8.5-10.1)
[2021-06-18 23:54] LABS: CREATININE 5.6 mg/dL (0.55-1.3)
[2021-06-18 23:55] LABS: TOT PROT 6.8 g/dl (6.4-8.2)
[2021-06-18 23:57] LABS: BILIRUBIN,TOTAL 0.4 mg/dL (0.2-1)
[2021-06-19] MEDS ORDERED: HYDROmorphone HCL CARPU-JECT 2 MG/1 ML DISP.SYRIN IVPUSH ONE
[2021-06-19] MEDS ORDERED: ERYTHROMYCIN BASE 500 MG TABLET PO ONE (00:01)
[2021-06-19] MEDS ORDERED: HYDROmorphone HCl 2 MG/ML VIAL ONE (00:08)
[2021-06-19 00:24] LABS: ALBUMIN 3.2 g/dl (3.4-5.0)
[2021-06-19] MEDS ORDERED: ONDANSETRON 4 MG/2 ML VIAL IVPUSH ONE (01:07)
[2021-06-19] MEDS ORDERED: ONDANSETRON 4 MG/2 ML VIAL ONE (01:16)
[2021-06-19] MEDS ORDERED: PROCHLORPERAZINE MALEATE 5 MG TABLET PO PRN (03:47)
[2021-06-19 05:49] LABS: CALCIUM 8.5 mg/dL (8.5-10.1)
[2021-06-19 05:50] LABS: BLOOD UREA NITROGEN 39.3 mg/dL (7-18)
[2021-06-19 05:53] LABS: CREATININE 5.5 mg/dL (0.55-1.3)
[2021-06-19] MEDS: HEPARIN NA (PORCINE) 5,000 UNITS/ML 1ML VIAL SQ SCH ×3 (06:54→22:15)
[2021-06-19] MEDS: ERYTHROMYCIN BASE 250 MG TAB PO SCH ×3 (06:55→22:33)
[2021-06-19] MEDS: INSULIN SLIDING SCALE (NOVOLOG) 1 VIAL SQ SCH ×4 (07:28→22:19)
[2021-06-19 09:20] LABS: BASO % 0.2 % (0-2.0); EOS % 0.1 % (0-4.5); HEMATOCRIT 30.1 % (35.4-49); HEMOGLOBIN 9.9 GM/dL (11.7-16.9); LYMPH % 7.7 % (8-40); MCH 29.8 pg (25.7-33.7); MEAN CELL VOLUME 90.2 fl (80-96); MEAN PLT VOLUME 8.3 fl (7.5-11.1); MONO % 5.1 % (3.8-10.2); NEUT % 86.9 % (42.8-82.8); PLATELET COUNT 323 10^3/uL (134-434); RBC 3.33 M/mm3 (4.00-5.60); RDW 15.3 % (11.9-15.9); WHITE BLOOD COUNT 14.3 K/mm3 (4.0-10.0)
[2021-06-19] MEDS: METOPROLOL TARTRATE 50 MG TABLET (FP) PO SCH ×2 (09:31→22:15)
[2021-06-19 09:36] VITALS: BMI 23.0
[2021-06-19] MEDS ORDERED: SODIUM CHLORIDE 250 ML IV PRN (09:36)
[2021-06-19 09:50] LABS: CALCIUM 9.2 mg/dL (8.5-10.1)
[2021-06-19 09:51] LABS: ALBUMIN 2.9 g/dl (3.4-5.0); BLOOD UREA NITROGEN 40.4 mg/dL (7-18); MAGNESIUM 2.3 mg/dL (1.8-2.4)
[2021-06-19 09:54] LABS: CREATININE 5.5 mg/dL (0.55-1.3); PHOSPHOROUS 4.8 mg/dL (2.5-4.9)
[2021-06-19 09:55] LABS: BILIRUBIN,TOTAL 0.3 mg/dL (0.2-1); TOT PROT 6.2 g/dl (6.4-8.2)
[2021-06-19] MEDS ORDERED: PANTOPRAZOLE 40 MG TABLET PO SCH (10:00)
[2021-06-19] MEDS ORDERED: PANTOPRAZOLE SODIUM 40 MG in SODIUM CHLORIDE 100 ML IVPB SCH (10:00)
[2021-06-19] MEDS ORDERED: hydrALAZINE HCL 50 MG TABLET (FP) PO SCH (14:00)
[2021-06-19] MEDS: HYDROmorphone HCl 2 MG/ML VIAL IVPB PRN (15:14)
[2021-06-19] MEDS: PANTOPRAZOLE SODIUM 40 MG VIAL IVPUSH SCH ×2 (15:19→22:15)
[2021-06-19] MEDS: SODIUM CHLORIDE 0.45% 1,000 ML IV SCH (15:43)
[2021-06-19] MEDS: ASPIRIN COATED 81 MG TABLET.EC PO SCH (17:42)
[2021-06-19] MEDS: ATORVASTATIN CA 40 MG TABLET (FP) PO SCH (22:14)
[2021-06-19] MEDS: hydrALAZINE HCL 50 MG TABLET (FP) PO SCH (22:15)
[2021-06-20] MEDS: SODIUM CHLORIDE 0.45% 1,000 ML IV SCH ×3 (00:47→16:29)
[2021-06-20] MEDS: hydrALAZINE HCL 50 MG TABLET (FP) PO SCH ×3 (05:48→21:25)
[2021-06-20] MEDS: HEPARIN NA (PORCINE) 5,000 UNITS/ML 1ML VIAL SQ SCH ×3 (05:48→21:25)
[2021-06-20] MEDS: ERYTHROMYCIN BASE 250 MG TAB PO SCH ×3 (05:52→21:26)
[2021-06-20] MEDS: INSULIN SLIDING SCALE (NOVOLOG) 1 VIAL SQ SCH ×4 (06:06→21:40)
[2021-06-20 09:06] LABS: BASO % 0.6 % (0-2.0); EOS % 0.8 % (0-4.5); HEMATOCRIT 27.5 % (35.4-49); HEMOGLOBIN 9.2 GM/dL (11.7-16.9); LYMPH % 20.2 % (8-40); MCH 30.2 pg (25.7-33.7); MCHC 33.7 g/dl (32.0-35.9); MEAN CELL VOLUME 89.6 fl (80-96); MEAN PLT VOLUME 8.3 fl (7.5-11.1); MONO % 6.4 % (3.8-10.2); PLATELET COUNT 280 10^3/uL (134-434); RBC 3.06 M/mm3 (4.00-5.60); RDW 15.3 % (11.9-15.9); WHITE BLOOD COUNT 9.6 K/mm3 (4.0-10.0)
[2021-06-20 09:26] LABS: ALBUMIN 2.6 g/dl (3.4-5.0); BLOOD UREA NITROGEN 29.5 mg/dL (7-18)
[2021-06-20 09:29] LABS: CREATININE 4.9 mg/dL (0.55-1.3)
[2021-06-20 09:30] LABS: BILIRUBIN,TOTAL 0.4 mg/dL (0.2-1); TOT PROT 5.6 g/dl (6.4-8.2)
[2021-06-20] MEDS: ASPIRIN COATED 81 MG TABLET.EC PO SCH (09:55)
[2021-06-20] MEDS: PANTOPRAZOLE SODIUM 40 MG VIAL IVPUSH SCH ×2 (09:55→21:26)
[2021-06-20] MEDS: METOPROLOL TARTRATE 50 MG TABLET (FP) PO SCH ×2 (09:55→21:25)
[2021-06-20] MEDS: POLYETHYLENE GLYCOL 3350 119 GM BTL PO SCH (15:23)
[2021-06-20] MEDS: HYDROmorphone HCl 2 MG/ML VIAL IVPB PRN (16:29)
[2021-06-20] MEDS: ATORVASTATIN CA 40 MG TABLET (FP) PO SCH (21:25)
[2021-06-21] MEDS: SODIUM CHLORIDE 0.45% 1,000 ML IV SCH ×2 (03:49→06:54)
[2021-06-21] MEDS: HEPARIN NA (PORCINE) 5,000 UNITS/ML 1ML VIAL SQ SCH ×3 (06:46→22:18)
[2021-06-21] MEDS: ERYTHROMYCIN BASE 250 MG TAB PO SCH ×3 (06:46→22:19)
[2021-06-21] MEDS: hydrALAZINE HCL 50 MG TABLET (FP) PO SCH ×3 (06:47→22:18)
[2021-06-21] MEDS: INSULIN SLIDING SCALE (NOVOLOG) 1 VIAL SQ SCH ×4 (06:55→22:22)
[2021-06-21 08:19] LABS: ALBUMIN 2.4 g/dl (3.4-5.0); BLOOD UREA NITROGEN 35.4 mg/dL (7-18); CALCIUM 7.9 mg/dL (8.5-10.1)
[2021-06-21 08:22] LABS: CREATININE 5.6 mg/dL (0.55-1.3)
[2021-06-21 08:23] LABS: BILIRUBIN,TOTAL 0.4 mg/dL (0.2-1)
[2021-06-21 08:24] LABS: TOT PROT 4.9 g/dl (6.4-8.2)
[2021-06-21 08:40] LABS: BASO % 0.6 % (0-2.0); EOS % 1.5 % (0-4.5); HEMATOCRIT 25.7 % (35.4-49); HEMOGLOBIN 8.6 GM/dL (11.7-16.9); LYMPH % 34.7 % (8-40); MCHC 33.4 g/dl (32.0-35.9); MEAN CELL VOLUME 89.8 fl (80-96); MEAN PLT VOLUME 8.5 fl (7.5-11.1); MONO % 8.2 % (3.8-10.2); PLATELET COUNT 266 10^3/uL (134-434); RBC 2.86 M/mm3 (4.00-5.60); RDW 14.8 % (11.9-15.9); WHITE BLOOD COUNT 7.1 K/mm3 (4.0-10.0)
[2021-06-21] MEDS: PANTOPRAZOLE SODIUM 40 MG VIAL IVPUSH SCH ×2 (10:42→22:18)
[2021-06-21] MEDS: POLYETHYLENE GLYCOL 3350 119 GM BTL PO SCH (10:42)
[2021-06-21] MEDS: METOPROLOL TARTRATE 50 MG TABLET (FP) PO SCH ×2 (10:42→22:19)
[2021-06-21] MEDS: ASPIRIN COATED 81 MG TABLET.EC PO SCH (10:42)
[2021-06-21] MEDS ORDERED: SODIUM CHLORIDE 250 ML IV PRN (12:33)
[2021-06-21] MEDS ORDERED: EPOETIN ALFA-EPBX 10,000 UNIT/ML VIAL IVPUSH ONE (13:00)
[2021-06-21] MEDS: LOSARTAN POTASSIUM 50 MG TABLET PO SCH (16:15)
[2021-06-21] MEDS: HYDROmorphone HCl 2 MG/ML VIAL IVPB PRN ×2 (17:06→23:35)
[2021-06-21] MEDS: ATORVASTATIN CA 40 MG TABLET (FP) PO SCH (22:18)
[2021-06-22] MEDS: hydrALAZINE HCL 50 MG TABLET (FP) PO SCH ×3 (06:18→21:54)
[2021-06-22] MEDS: HEPARIN NA (PORCINE) 5,000 UNITS/ML 1ML VIAL SQ SCH ×3 (06:18→21:53)
[2021-06-22] MEDS: INSULIN SLIDING SCALE (NOVOLOG) 1 VIAL SQ SCH ×4 (06:19→21:53)
[2021-06-22] MEDS: ERYTHROMYCIN BASE 250 MG TAB PO SCH ×3 (06:21→21:54)
[2021-06-22] MEDS: HYDROmorphone HCl 2 MG/ML VIAL IVPB PRN (08:44)
[2021-06-22] MEDS: PANTOPRAZOLE SODIUM 40 MG VIAL IVPUSH SCH ×2 (09:32→21:53)
[2021-06-22] MEDS: POLYETHYLENE GLYCOL 3350 119 GM BTL PO SCH (09:32)
[2021-06-22] MEDS: LOSARTAN POTASSIUM 50 MG TABLET PO SCH (09:32)
[2021-06-22] MEDS: ASPIRIN COATED 81 MG TABLET.EC PO SCH (09:32)
[2021-06-22] MEDS: METOPROLOL TARTRATE 50 MG TABLET (FP) PO SCH ×2 (09:32→21:54)
[2021-06-22 10:02] LABS: BASO % 0.5 % (0-2.0); EOS % 1.7 % (0-4.5); HEMATOCRIT 27.3 % (35.4-49); HEMOGLOBIN 9.2 GM/dL (11.7-16.9); LYMPH % 35.6 % (8-40); MCH 29.7 pg (25.7-33.7); MCHC 33.7 g/dl (32.0-35.9); MEAN CELL VOLUME 88.4 fl (80-96); MEAN PLT VOLUME 8.4 fl (7.5-11.1); MONO % 8.5 % (3.8-10.2); NEUT % 53.7 % (42.8-82.8); PLATELET COUNT 268 10^3/uL (134-434); RBC 3.09 M/mm3 (4.00-5.60); RDW 14.6 % (11.9-15.9); WHITE BLOOD COUNT 6.2 K/mm3 (4.0-10.0)
[2021-06-22 10:36] LABS: BLOOD UREA NITROGEN 21.2 mg/dL (7-18)
[2021-06-22 10:37] LABS: ALBUMIN 2.4 g/dl (3.4-5.0); CALCIUM 8.3 mg/dL (8.5-10.1); MAGNESIUM 1.9 mg/dL (1.8-2.4)
[2021-06-22 10:39] LABS: CREATININE 4.6 mg/dL (0.55-1.3)
[2021-06-22 10:40] LABS: BILIRUBIN,TOTAL 0.2 mg/dL (0.2-1); TOT PROT 5.2 g/dl (6.4-8.2)
[2021-06-22] MEDS ORDERED: SODIUM CHLORIDE 250 ML IV PRN (16:49)
[2021-06-22] MEDS: ATORVASTATIN CA 40 MG TABLET (FP) PO SCH (21:54)
[2021-06-23] MEDS: ERYTHROMYCIN BASE 250 MG TAB PO SCH ×3 (06:37→22:17)
[2021-06-23] MEDS: HEPARIN NA (PORCINE) 5,000 UNITS/ML 1ML VIAL SQ SCH ×3 (06:37→22:16)
[2021-06-23] MEDS: INSULIN SLIDING SCALE (NOVOLOG) 1 VIAL SQ SCH ×4 (06:37→22:16)
[2021-06-23 09:13] LABS: BASO % 0.2 % (0-2.0); EOS % 1.7 % (0-4.5); HEMATOCRIT 27.1 % (35.4-49); LYMPH % 26.5 % (8-40); MCH 29.8 pg (25.7-33.7); MCHC 33.1 g/dl (32.0-35.9); MEAN PLT VOLUME 8.2 fl (7.5-11.1); NEUT % 64.6 % (42.8-82.8); PLATELET COUNT 273 10^3/uL (134-434); RBC 3.01 M/mm3 (4.00-5.60); RDW 14.8 % (11.9-15.9); WHITE BLOOD COUNT 6.5 K/mm3 (4.0-10.0)
[2021-06-23 09:49] LABS: ALBUMIN 2.6 g/dl (3.4-5.0); BLOOD UREA NITROGEN 25.5 mg/dL (7-18); CALCIUM 8.1 mg/dL (8.5-10.1); MAGNESIUM 2.1 mg/dL (1.8-2.4)
[2021-06-23 09:52] LABS: CREATININE 5.9 mg/dL (0.55-1.3); PHOSPHOROUS 4.8 mg/dL (2.5-4.9)
[2021-06-23 09:54] LABS: BILIRUBIN,TOTAL 0.2 mg/dL (0.2-1); TOT PROT 5.4 g/dl (6.4-8.2)
[2021-06-23] MEDS: POLYETHYLENE GLYCOL 3350 119 GM BTL PO SCH (10:23)
[2021-06-23] MEDS: PANTOPRAZOLE SODIUM 40 MG VIAL IVPUSH SCH ×2 (10:23→22:15)
[2021-06-23] MEDS ORDERED: EPOETIN ALFA-EPBX 10,000 UNIT/ML VIAL IVPUSH ONE (11:45)
[2021-06-23] MEDS: ASPIRIN COATED 81 MG TABLET.EC PO SCH (14:46)
[2021-06-23] MEDS: METOPROLOL TARTRATE 50 MG TABLET (FP) PO SCH ×2 (14:46→22:16)
[2021-06-23] MEDS: LOSARTAN POTASSIUM 50 MG TABLET PO SCH (14:46)
[2021-06-23] MEDS: hydrALAZINE HCL 50 MG TABLET (FP) PO SCH (14:47)
[2021-06-23] MEDS: ATORVASTATIN CA 40 MG TABLET (FP) PO SCH (22:16)
[2021-06-24] MEDS: INSULIN SLIDING SCALE (NOVOLOG) 1 VIAL SQ SCH ×3 (06:27→17:13)
[2021-06-24] MEDS: HEPARIN NA (PORCINE) 5,000 UNITS/ML 1ML VIAL SQ SCH ×2 (06:29→15:50)
[2021-06-24 08:46] LABS: BASO % 0.4 % (0-2.0); HEMATOCRIT 25.2 % (35.4-49); HEMOGLOBIN 8.6 GM/dL (11.7-16.9); LYMPH % 29.8 % (8-40); MCH 30.5 pg (25.7-33.7); MCHC 34.2 g/dl (32.0-35.9); MEAN CELL VOLUME 89.2 fl (80-96); MEAN PLT VOLUME 8.3 fl (7.5-11.1); MONO % 11.1 % (3.8-10.2); NEUT % 56.7 % (42.8-82.8); PLATELET COUNT 235 10^3/uL (134-434); RBC 2.82 M/mm3 (4.00-5.60); RDW 14.7 % (11.9-15.9); WHITE BLOOD COUNT 6.7 K/mm3 (4.0-10.0)
[2021-06-24 09:09] LABS: ALBUMIN 2.2 g/dl (3.4-5.0); CALCIUM 7.6 mg/dL (8.5-10.1)
[2021-06-24 09:10] LABS: BLOOD UREA NITROGEN 20.5 mg/dL (7-18); MAGNESIUM 1.9 mg/dL (1.8-2.4)
[2021-06-24 09:11] LABS: CREATININE 4.6 mg/dL (0.55-1.3)
[2021-06-24 09:12] LABS: BILIRUBIN,TOTAL 0.2 mg/dL (0.2-1)
[2021-06-24 09:13] LABS: TOT PROT 4.8 g/dl (6.4-8.2)
[2021-06-24] MEDS ORDERED: POLYETHYLENE GLYCOL (HEALTHYLAX) 3350 17 GM PACKET PO SCH ×2 (10:00→22:00)
[2021-06-24] MEDS: METOPROLOL TARTRATE 50 MG TABLET (FP) PO SCH (10:42)
[2021-06-24] MEDS: ASPIRIN COATED 81 MG TABLET.EC PO SCH (10:42)
[2021-06-24] MEDS: LOSARTAN POTASSIUM 50 MG TABLET PO SCH (10:42)
[2021-06-24] MEDS: PANTOPRAZOLE SODIUM 40 MG VIAL IVPUSH SCH (10:43)
[2021-06-24] MEDS: ERYTHROMYCIN BASE 250 MG TAB PO SCH ×2 (10:43→15:50)
[2021-06-24] MEDS ORDERED: LOSARTAN POTASSIUM 50 MG TABLET PO SCH (13:38)
[2021-06-24] MEDS ORDERED: LOSARTAN POTASSIUM 50 MG TABLET PO ONE (13:38)
[2021-06-24 14:11] VITALS: BP 153/80; PULSE 75; TEMP 99.4
[2021-06-24] MEDS ORDERED: MAGNESIUM CITRATE 300 ML BOTTLE PO ONE (14:16)
[2021-06-24] MEDS ORDERED: ACETAMINOPHEN 325 MG TABLET (FP) PO PRN (14:17)
== END 2021-06-24 18:10 | disposition home or self-care (01) | DRG 73 ==
LOC: JER 21:22 → JERBED 06-19 01:09 → J7W 06-19 05:56
PROVIDERS: ADMIT Hospitalist; ATTEND Nurse Practitioner Acute Care
PROC: 5A1D70Z Performance of Urinary Filtration, Intermittent, Less than 6 Hours Per Day (ICD-10-PCS; principal; 2021-06-19)
PROC: 5A1D70Z Performance of Urinary Filtration, Intermittent, Less than 6 Hours Per Day (ICD-10-PCS; 2021-06-21)
PROC: 5A1D70Z Performance of Urinary Filtration, Intermittent, Less than 6 Hours Per Day (ICD-10-PCS; 2021-06-23)
DX: E11.43 Type 2 diabetes mellitus with diabetic autonomic (poly)neuropathy (principal); N18.6 End stage renal disease; I13.2 Hypertensive heart and chronic kidney disease with heart failure and with stage 5 chronic kidney disease, or end stage renal disease; I50.32 Chronic diastolic (congestive) heart failure; E87.0 Hyperosmolality and hypernatremia; I45.2 Bifascicular block; K92.2 Gastrointestinal hemorrhage, unspecified; A04.8 Other specified bacterial intestinal infections; E87.6 Hypokalemia; K31.84 Gastroparesis; E11.22 Type 2 diabetes mellitus with diabetic chronic kidney disease; R11.2 Nausea with vomiting, unspecified; D64.9 Anemia, unspecified; E78.5 Hyperlipidemia, unspecified; R80.9 Proteinuria, unspecified; R10.13 Epigastric pain; F41.8 Other specified anxiety disorders; K59.00 Constipation, unspecified; N40.0 Benign prostatic hyperplasia without lower urinary tract symptoms; Z99.2 Dependence on renal dialysis; Z86.718 Personal history of other venous thrombosis and embolism; Z89.421 Acquired absence of other right toe(s)
CPT/HCPCS: 36415; 71045-TC-FY; 74181-TC; 80048; 80053; 82550; 82553; 82962; 83605; 83690; 83735; 84100; 84484; 85025; 93005; 93010; 99285-25; C9803; J1644; Q5106; U0003; U0005

== ENCOUNTER 2021-06-27 12:41 | Observation (INO) | payer OTHER ==
[2021-06-27] MEDS ORDERED: SODIUM CHLORIDE 0.9% 500 ML INFUS.BAG IV ONE (13:11)
[2021-06-27] MEDS ORDERED: OCTREOTIDE ACETATE 50 MCG/1 ML - 1 ML VIAL IVPUSH ONE (13:11)
[2021-06-27] MEDS ORDERED: ONDANSETRON 4 MG/2 ML VIAL IVPUSH ONE (13:11)
[2021-06-27] MEDS ORDERED: ACETAMINOPHEN 1000 MG/100 ML BAG IVPB ONE (13:13)
[2021-06-27] MEDS ORDERED: ACETAMINOPHEN INJECTION 100 ML IVPB ONE (13:24)
[2021-06-27] MEDS ORDERED: OCTREOTIDE ACETATE 100 MCG/1 ML ONE (13:25)
[2021-06-27] MEDS ORDERED: ONDANSETRON 4 MG/2 ML VIAL ONE (13:25)
[2021-06-27 13:51] LABS: BASO % 0.4 % (0-2.0); EOS % 0.5 % (0-4.5); HEMATOCRIT 32.3 % (35.4-49); HEMOGLOBIN 10.7 GM/dL (11.7-16.9); LYMPH % 14.3 % (8-40); MCH 29.6 pg (25.7-33.7); MCHC 33.1 g/dl (32.0-35.9); MEAN CELL VOLUME 89.4 fl (80-96); MONO % 6.2 % (3.8-10.2); NEUT % 78.6 % (42.8-82.8); PLATELET COUNT 351 10^3/uL (134-434); RBC 3.61 M/mm3 (4.00-5.60); RDW 14.5 % (11.9-15.9); WHITE BLOOD COUNT 9.1 K/mm3 (4.0-10.0)
[2021-06-27 13:58] LABS: INR 1.07 (0.83-1.09); PROTHROMBIN TIME (PATIENT) 12.3 SEC (9.7-13.0)
[2021-06-27 14:01] LABS: ACTIVATED PTT 34.8 SECONDS (25.2-36.5); BLOOD UREA NITROGEN 32.2 mg/dL (7-18); MAGNESIUM 2.1 mg/dL (1.8-2.4)
[2021-06-27 14:04] LABS: CREATININE 5.6 mg/dL (0.55-1.3); PHOSPHOROUS 3.7 mg/dL (2.5-4.9)
[2021-06-27 14:05] LABS: BILIRUBIN,TOTAL 0.3 mg/dL (0.2-1); TOT PROT 6.7 g/dl (6.4-8.2)
[2021-06-27 14:11] LABS: ALBUMIN 3.2 g/dl (3.4-5.0); CALCIUM 8.8 mg/dL (8.5-10.1)
[2021-06-27] MEDS ORDERED: METOCLOPRAMIDE HCL INJECTION 10 MG/2 ML VIAL IVPB ONE (14:32)
[2021-06-27] MEDS ORDERED: MAGNESIUM SULF 50% (8.12 MEQ/2 ML-1 GM VIAL) IVPB ONE (14:34)
[2021-06-27] MEDS ORDERED: METOCLOPRAMIDE HCL INJECTION 10 MG/2 ML VIAL ONE (14:35)
[2021-06-27] MEDS ORDERED: MAGNESIUM SULFATE IN WATER 2 GM/50 ML IVPB IVPB ONE (14:35)
[2021-06-27] MEDS ORDERED: ONDANSETRON 4 MG/2 ML VIAL IVPUSH PRN (15:34)
[2021-06-27] MEDS: hydrALAZINE HCL 25 MG TABLET (FP) PO SCH (18:08)
[2021-06-27] MEDS: LIPASE/PROTEASE/AMYLASE 36,000 UNIT CAPSULE PO SCH (19:26)
[2021-06-27 20:40] LABS: COCAINE, UR NEGATIVE (NEGATIVE); METHADONE, UR NEGATIVE (NEGATIVE); PHENCYCLIDINE,URINE NEGATIVE (NEGATIVE); URINE BENZODIAZEPINES NEGATIVE (NEGATIVE)
[2021-06-27 20:41] LABS: OPIATES, URI NEGATIVE (NEGATIVE)
[2021-06-27 20:42] LABS: EPI CELLS 15 /uL (0-25.1); HYALINE CASTS 2 /uL (0-3.1); URINE APPEARANCE CLEAR; URINE BACTERIA 6 /uL (0-1359); URINE BILIRUBIN NEGATIVE (NEGATIVE); URINE COLOR YELLOW; URINE GLUCOSE (UA) TRACE (NEGATIVE); URINE KETONE NEGATIVE (NEGATIVE); URINE LEUK ESTERASE NEGATIVE (NEGATIVE); URINE NITRITE NEGATIVE (NEGATIVE); URINE PROTEIN 4+ (NEGATIVE); URINE RBC 10 /uL (0-23.9); URINE UROBILINOGEN 0.2 mg/dL (0.2-1.0); URINE WBC 15 /uL (0-25.8)
[2021-06-27 20:50] LABS: URINE AMPHETAMINES NEGATIVE (NEGATIVE); URINE BARBITURATES NEGATIVE (NEGATIVE)
[2021-06-27] MEDS: HEPARIN NA (PORCINE) 5,000 UNITS/ML 1ML VIAL SQ SCH (21:59)
[2021-06-27] MEDS: METOPROLOL TARTRATE 50 MG TABLET (FP) PO SCH (22:00)
[2021-06-27] MEDS: ATORVASTATIN CA 40 MG TABLET (FP) PO SCH (22:00)
[2021-06-27] MEDS: ERYTHROMYCIN BASE 250 MG TAB PO SCH (22:01)
[2021-06-28] MEDS: ERYTHROMYCIN BASE 250 MG TAB PO SCH ×3 (05:31→21:21)
[2021-06-28] MEDS ORDERED: SODIUM CHLORIDE 250 ML IV PRN (07:39)
[2021-06-28] MEDS: hydrALAZINE HCL 25 MG TABLET (FP) PO SCH ×3 (09:35→17:43)
[2021-06-28] MEDS: METOPROLOL TARTRATE 50 MG TABLET (FP) PO SCH ×2 (09:35→21:20)
[2021-06-28] MEDS: HEPARIN NA (PORCINE) 5,000 UNITS/ML 1ML VIAL SQ SCH ×2 (09:36→21:20)
[2021-06-28] MEDS: LIPASE/PROTEASE/AMYLASE 36,000 UNIT CAPSULE PO SCH ×3 (09:36→17:43)
[2021-06-28] MEDS ORDERED: LOSARTAN POTASSIUM 50 MG TABLET PO SCH (10:00)
[2021-06-28] MEDS ORDERED: PANTOPRAZOLE 40 MG TABLET PO SCH (10:00)
[2021-06-28] MEDS ORDERED: EPOETIN ALFA-EPBX 3,000 UNIT/ML VIAL IVPUSH ONE (12:00)
[2021-06-28 15:02] VITALS: BMI 21.6
[2021-06-28] MEDS: ATORVASTATIN CA 40 MG TABLET (FP) PO SCH (21:20)
[2021-06-28 22:17] VITALS: BP 117/67; PULSE 72; TEMP 98.3
== END 2021-06-28 22:15 | disposition short-term general hospital (02) ==
LOC: JER 12:41 → INTOOBSV 14:25 → UNDOADMOB 14:25 → JERBED 14:25 → J8W 16:35 → JERBED 06-28 08:23
PROVIDERS: ADMIT Internal Medicine; ATTEND Nurse Practitioner Acute Care
PROC: 3E033NZ Introduction of Analgesics, Hypnotics, Sedatives into Peripheral Vein, Percutaneous Approach (ICD-10-PCS; principal; 2021-06-28)
PROC: 3E023GC Introduction of Other Therapeutic Substance into Muscle, Percutaneous Approach (ICD-10-PCS; 2021-06-28)
PROC: 3E033NZ Introduction of Analgesics, Hypnotics, Sedatives into Peripheral Vein, Percutaneous Approach (ICD-10-PCS; 2021-06-28)
PROC: 3E033GC Introduction of Other Therapeutic Substance into Peripheral Vein, Percutaneous Approach (ICD-10-PCS; 2021-06-28)
DX: I13.2 Hypertensive heart and chronic kidney disease with heart failure and with stage 5 chronic kidney disease, or end stage renal disease (principal); E11.22 Type 2 diabetes mellitus with diabetic chronic kidney disease; N18.6 End stage renal disease; Z99.2 Dependence on renal dialysis; E78.5 Hyperlipidemia, unspecified; E11.43 Type 2 diabetes mellitus with diabetic autonomic (poly)neuropathy; K31.84 Gastroparesis; Z86.718 Personal history of other venous thrombosis and embolism; I50.30 Unspecified diastolic (congestive) heart failure; Z89.422 Acquired absence of other left toe(s); Z89.421 Acquired absence of other right toe(s); D64.9 Anemia, unspecified; N40.0 Benign prostatic hyperplasia without lower urinary tract symptoms; R80.9 Proteinuria, unspecified; E87.6 Hypokalemia
CPT/HCPCS: 36415; 71045-TC-FY; 80053; 80307; 81003; 82962; 83605; 83690; 83735; 84100; 84484; 85025; 85610; 85730; 86850; 86900; 86901; 87086; 93005; 93010; 96372; 96374; 96375; 99285-25; C9803; G0378; J1644; U0003; U0005

== ENCOUNTER 2021-08-02 16:22 | Observation (INO) | payer OTHER ==
[2021-08-02 16:54] VITALS: BMI 22.5
[2021-08-02 18:23] LABS: BASO % 0.6 % (0-2.0); EOS % 0.7 % (0-4.5); HEMATOCRIT 33.1 % (35.4-49); HEMOGLOBIN 10.8 GM/dL (11.7-16.9); MCH 30.2 pg (25.7-33.7); MCHC 32.6 g/dl (32.0-35.9); MEAN CELL VOLUME 92.8 fl (80-96); MEAN PLT VOLUME 8.1 fl (7.5-11.1); MONO % 12.5 % (3.8-10.2); NEUT % 57.2 % (42.8-82.8); PLATELET COUNT 226 10^3/uL (134-434); RBC 3.57 M/mm3 (4.00-5.60); RDW 17.9 % (11.9-15.9); WHITE BLOOD COUNT 6.3 K/mm3 (4.0-10.0)
[2021-08-02 18:44] LABS: CHLORIDE 105 mmol/L (98-107); SODIUM 141 mmol/L (136-145)
[2021-08-02 18:46] LABS: CALCIUM 8.3 mg/dL (8.5-10.1)
[2021-08-02 18:47] LABS: ANION GAP 11 MMOL/L (8-16); BLOOD UREA NITROGEN 45.8 mg/dL (7-18); CO2 24 mmol/L (21-32); GLUCOSE,RANDOM 137 mg/dL (74-106)
[2021-08-02 18:50] LABS: SGOT/AST 18 U/L (15-37); SGPT/ALT 21 U/L (13-61)
[2021-08-02 18:51] LABS: TOT PROT 6.1 g/dl (6.4-8.2)
[2021-08-02 18:52] LABS: ALK PHOS 87 U/L (45-117); BILIRUBIN,TOTAL 0.2 mg/dL (0.2-1)
[2021-08-02 19:32] LABS: CREATININE 7.6 mg/dL (0.55-1.3)
[2021-08-03] MEDS: HEPARIN NA (PORCINE) 5,000 UNITS/ML 1ML VIAL SQ SCH ×3 (00:10→14:00)
[2021-08-03] MEDS ORDERED: hydrALAZINE HCL 50 MG TABLET (FP) PO SCH (00:45)
[2021-08-03] MEDS ORDERED: SODIUM CHLORIDE 250 ML IV PRN (00:51)
[2021-08-03] MEDS: hydrALAZINE HCL 25 MG TABLET (FP) PO SCH ×2 (03:00→09:05)
[2021-08-03 05:46] LABS: HEMATOCRIT 31.9 % (35.4-49); HEMOGLOBIN 10.3 GM/dL (11.7-16.9); MCH 29.7 pg (25.7-33.7); MCHC 32.4 g/dl (32.0-35.9); MEAN CELL VOLUME 91.8 fl (80-96); MEAN PLT VOLUME 8.1 fl (7.5-11.1); PLATELET COUNT 242 10^3/uL (134-434); RBC 3.47 M/mm3 (4.00-5.60); RDW 17.4 % (11.9-15.9); WHITE BLOOD COUNT 6.9 K/mm3 (4.0-10.0)
[2021-08-03 06:02] LABS: CHLORIDE 108 mmol/L (98-107); SODIUM 141 mmol/L (136-145)
[2021-08-03 06:04] LABS: ANION GAP 10 MMOL/L (8-16); BLOOD UREA NITROGEN 48.1 mg/dL (7-18); CO2 24 mmol/L (21-32); GLUCOSE,RANDOM 131 mg/dL (74-106); MAGNESIUM 2.4 mg/dL (1.8-2.4)
[2021-08-03 06:07] LABS: PHOSPHOROUS 6.1 mg/dL (2.5-4.9)
[2021-08-03 06:33] LABS: CREATININE 7.7 mg/dL (0.55-1.3)
[2021-08-03] MEDS ORDERED: PANTOPRAZOLE 40 MG TABLET ONE (08:43)
[2021-08-03] MEDS ORDERED: ASPIRIN COATED 81 MG TABLET.EC ONE (08:44)
[2021-08-03] MEDS ORDERED: HEPARIN NA (PORCINE) 5,000 UNITS/ML 1ML VIAL ONE (08:52)
[2021-08-03] MEDS: METOPROLOL TARTRATE 50 MG TABLET (FP) PO SCH ×2 (09:05→13:52)
[2021-08-03] MEDS ORDERED: LOSARTAN POTASSIUM 50 MG TABLET PO SCH (10:00)
[2021-08-03] MEDS ORDERED: PANTOPRAZOLE 40 MG TABLET PO SCH (10:00)
[2021-08-03] MEDS ORDERED: VITAMIN B COMP W-C 1 EA TABLET (NEPHRO-VITE) PO SCH (10:00)
[2021-08-03] MEDS ORDERED: ASPIRIN COATED 81 MG TABLET.EC PO SCH (10:00)
[2021-08-03] MEDS ORDERED: METOPROLOL TARTRATE 50 MG TABLET (FP) PO SCH (10:00)
[2021-08-03] MEDS ORDERED: EPOETIN ALFA-EPBX 4,000 UNIT/ML VIAL IVPUSH ONE (11:00)
[2021-08-03 12:33] VITALS: TEMP 98
[2021-08-03] MEDS ORDERED: METOPROLOL TARTRATE 50 MG TABLET (FP) ONE (13:48)
[2021-08-03] MEDS ORDERED: ERYTHROMYCIN BASE 250 MG TAB PO SCH (14:00)
[2021-08-03 16:11] VITALS: BP 100/76; PULSE 68
[2021-08-03] MEDS ORDERED: ATORVASTATIN CA 40 MG TABLET (FP) PO SCH (22:00)
== END 2021-08-03 18:04 | disposition home or self-care (01) ==
LOC: JER 16:22 → JERBED 21:20
PROVIDERS: ADMIT Hospitalist; ATTEND Nurse Practitioner Acute Care
DX: I13.11 Hypertensive heart and chronic kidney disease without heart failure, with stage 5 chronic kidney disease, or end stage renal disease (principal); I25.10 Atherosclerotic heart disease of native coronary artery without angina pectoris; I48.91 Unspecified atrial fibrillation; K31.84 Gastroparesis; E78.5 Hyperlipidemia, unspecified; E11.22 Type 2 diabetes mellitus with diabetic chronic kidney disease; N18.6 End stage renal disease; Z99.2 Dependence on renal dialysis; I21.4 Non-ST elevation (NSTEMI) myocardial infarction; N40.0 Benign prostatic hyperplasia without lower urinary tract symptoms; Z86.711 Personal history of pulmonary embolism; F41.8 Other specified anxiety disorders; K44.9 Diaphragmatic hernia without obstruction or gangrene; K59.00 Constipation, unspecified; K92.2 Gastrointestinal hemorrhage, unspecified; K22.6 Gastro-esophageal laceration-hemorrhage syndrome; N17.9 Acute kidney failure, unspecified; D64.9 Anemia, unspecified; K86.81 Exocrine pancreatic insufficiency; R21 Rash and other nonspecific skin eruption; R80.9 Proteinuria, unspecified
CPT/HCPCS: 36415; 71045-TC-FY; 80048; 80053; 82533; 83735; 84100; 84439; 84443; 84484; 85025; 85027; 86803; 87340; 93005; 93010; 99285-25; C9803-CS; G0378; J1644; U0003; U0005

== ENCOUNTER 2021-08-25 15:34 | Inpatient (IN) | payer OTHER ==
[2021-08-25] MEDS ORDERED: SODIUM CHLORIDE 0.9% 500 ML INFUS.BAG IV ONE (16:10)
[2021-08-25] MEDS ORDERED: HALOPERIDOL LACTATE 5 MG/ML IM ONE ×2 (16:11→17:04)
[2021-08-25] MEDS ORDERED: HALOPERIDOL LACTATE 5 MG/ML ONE ×2 (16:24→17:17)
[2021-08-25] MEDS ORDERED: ONDANSETRON 4 MG/2 ML VIAL IVPUSH ONE (17:04)
[2021-08-25 17:05] LABS: BASO % 0.3 % (0-2.0); EOS % 0.1 % (0-4.5); HEMATOCRIT 39.6 % (35.4-49); HEMOGLOBIN 12.6 GM/dL (11.7-16.9); LYMPH % 11.4 % (8-40); MCHC 31.9 g/dl (32.0-35.9); MEAN CELL VOLUME 90.8 fl (80-96); MEAN PLT VOLUME 8.5 fl (7.5-11.1); MONO % 5.3 % (3.8-10.2); NEUT % 82.9 % (42.8-82.8); PLATELET COUNT 246 10^3/uL (134-434); RBC 4.36 M/mm3 (4.00-5.60); RDW 17.1 % (11.9-15.9); WHITE BLOOD COUNT 12.3 K/mm3 (4.0-10.0)
[2021-08-25] MEDS ORDERED: ONDANSETRON 4 MG/2 ML VIAL ONE (17:17)
[2021-08-25 17:24] LABS: CHLORIDE 103 mmol/L (98-107); SODIUM 146 mmol/L (136-145)
[2021-08-25 17:26] LABS: CALCIUM 9.3 mg/dL (8.5-10.1)
[2021-08-25 17:28] LABS: ANION GAP 13 MMOL/L (8-16); BLOOD UREA NITROGEN 58.2 mg/dL (7-18); CO2 30 mmol/L (21-32); GLUCOSE,RANDOM 164 mg/dL (74-106)
[2021-08-25 17:29] LABS: ALBUMIN 3.8 g/dl (3.4-5.0)
[2021-08-25 17:31] LABS: BILIRUBIN,TOTAL 0.4 mg/dL (0.2-1); SGOT/AST 14 U/L (15-37); SGPT/ALT 15 U/L (13-61)
[2021-08-25 17:34] LABS: ALK PHOS 129 U/L (45-117)
[2021-08-25 17:40] LABS: CREATININE 8.8 mg/dL (0.55-1.3)
[2021-08-25] MEDS ORDERED: PROCHLORPERAZINE INJECTION 10 MG/2 ML VIAL IVPB PRN (21:28)
[2021-08-25] MEDS ORDERED: ACETAMINOPHEN 1000 MG/100 ML BAG IVPB PRN (21:40)
[2021-08-25] MEDS ORDERED: PANTOPRAZOLE SODIUM 40 MG/100 ML BAG IVPB ONE (21:47)
[2021-08-25] MEDS ORDERED: KCL 10 MEQ IVPB 20 MEQ/200 ML INFUS.BAG IVPB ONE (21:47)
[2021-08-25] MEDS: KCL 10 MEQ IVPB 10 MEQ/100 ML INFUS.BAG IVPB SCH ×2 (22:00→23:18)
[2021-08-25] MEDS: PANTOPRAZOLE SODIUM 40 MG VIAL IVPUSH SCH (22:00)
[2021-08-26] MEDS ORDERED: KCL 10 MEQ IVPB 10 MEQ/100 ML INFUS.BAG IVPB ONE (00:35)
[2021-08-26] MEDS ORDERED: HEPARIN NA (PORCINE) 5,000 UNITS/ML 1ML VIAL ONE (00:35)
[2021-08-26] MEDS: KCL 10 MEQ IVPB 10 MEQ/100 ML INFUS.BAG IVPB SCH (00:40)
[2021-08-26] MEDS: HEPARIN NA (PORCINE) 5,000 UNITS/ML 1ML VIAL SQ SCH ×4 (00:40→21:52)
[2021-08-26 06:06] VITALS: BMI 26.9
[2021-08-26] MEDS: hydrALAZINE HCL 50 MG TABLET (FP) PO SCH ×3 (06:27→21:52)
[2021-08-26] MEDS: INSULIN SLIDING SCALE (NOVOLOG) 1 VIAL SQ SCH ×4 (06:29→21:52)
[2021-08-26] MEDS ORDERED: SODIUM CHLORIDE 250 ML IV PRN (07:22)
[2021-08-26] MEDS ORDERED: HEPARIN NA (PORCINE) 5,000 UNITS/ML 1ML VIAL IVPUSH ONE (08:00)
[2021-08-26] MEDS: LIPASE/PROTEASE/AMYLASE 36,000 UNIT CAPSULE PO SCH ×3 (08:37→17:01)
[2021-08-26 08:53] LABS: BASO % 0.2 % (0-2.0); EOS % 0.3 % (0-4.5); HEMATOCRIT 34.9 % (35.4-49); HEMOGLOBIN 11.5 GM/dL (11.7-16.9); LYMPH % 14.2 % (8-40); MCH 29.9 pg (25.7-33.7); MEAN CELL VOLUME 90.5 fl (80-96); MEAN PLT VOLUME 8.4 fl (7.5-11.1); MONO % 8.1 % (3.8-10.2); NEUT % 77.2 % (42.8-82.8); PLATELET COUNT 206 10^3/uL (134-434); RBC 3.86 M/mm3 (4.00-5.60); RDW 16.8 % (11.9-15.9); WHITE BLOOD COUNT 11.2 K/mm3 (4.0-10.0)
[2021-08-26 09:07] LABS: CHLORIDE 101 mmol/L (98-107); SODIUM 142 mmol/L (136-145)
[2021-08-26 09:11] LABS: ALBUMIN 3.4 g/dl (3.4-5.0); ANION GAP 10 MMOL/L (8-16); BLOOD UREA NITROGEN 62.4 mg/dL (7-18); CO2 31 mmol/L (21-32); GLUCOSE,RANDOM 130 mg/dL (74-106)
[2021-08-26 09:12] LABS: CALCIUM 8.4 mg/dL (8.5-10.1); MAGNESIUM 2.5 mg/dL (1.8-2.4)
[2021-08-26 09:14] LABS: PHOSPHOROUS 6.1 mg/dL (2.5-4.9); SGOT/AST 19 U/L (15-37); SGPT/ALT 13 U/L (13-61)
[2021-08-26 09:15] LABS: BILIRUBIN,TOTAL 0.4 mg/dL (0.2-1)
[2021-08-26 09:17] LABS: ALK PHOS 114 U/L (45-117)
[2021-08-26 09:23] LABS: CREATININE 9.3 mg/dL (0.55-1.3)
[2021-08-26] MEDS: METOPROLOL TARTRATE 50 MG TABLET (FP) PO SCH ×2 (12:38→21:52)
[2021-08-26] MEDS: POLYETHYLENE GLYCOL (HEALTHYLAX) 3350 17 GM PACKET PO SCH (12:38)
[2021-08-26] MEDS: ASPIRIN COATED 81 MG TABLET.EC PO SCH (12:38)
[2021-08-26] MEDS: PANTOPRAZOLE SODIUM 40 MG VIAL IVPUSH SCH (12:38)
[2021-08-26] MEDS: LOSARTAN POTASSIUM 50 MG TABLET PO SCH (12:38)
[2021-08-26] MEDS ORDERED: INSULIN (NOVOLOG) ASPART 100 UNITS/ML 10ML VIAL ONE (21:49)
[2021-08-26] MEDS: ATORVASTATIN CA 40 MG TABLET (FP) PO SCH (21:52)
[2021-08-27] MEDS: hydrALAZINE HCL 50 MG TABLET (FP) PO SCH ×3 (06:15→21:04)
[2021-08-27] MEDS: HEPARIN NA (PORCINE) 5,000 UNITS/ML 1ML VIAL SQ SCH ×3 (06:15→21:04)
[2021-08-27] MEDS: INSULIN SLIDING SCALE (NOVOLOG) 1 VIAL SQ SCH ×4 (06:15→21:04)
[2021-08-27 08:41] LABS: BASO % 0.5 % (0-2.0); EOS % 0.8 % (0-4.5); HEMATOCRIT 35.5 % (35.4-49); HEMOGLOBIN 11.7 GM/dL (11.7-16.9); LYMPH % 31.3 % (8-40); MCH 29.9 pg (25.7-33.7); MCHC 32.9 g/dl (32.0-35.9); MEAN PLT VOLUME 8.2 fl (7.5-11.1); NEUT % 59.4 % (42.8-82.8); PLATELET COUNT 212 10^3/uL (134-434); RDW 16.6 % (11.9-15.9); WHITE BLOOD COUNT 9.3 K/mm3 (4.0-10.0)
[2021-08-27] MEDS: LIPASE/PROTEASE/AMYLASE 36,000 UNIT CAPSULE PO SCH ×3 (08:46→17:36)
[2021-08-27 09:04] LABS: ALBUMIN 3.2 g/dl (3.4-5.0); CALCIUM 8.5 mg/dL (8.5-10.1); MAGNESIUM 2.1 mg/dL (1.8-2.4)
[2021-08-27 09:07] LABS: CREATININE 6.8 mg/dL (0.55-1.3); PHOSPHOROUS 4.8 mg/dL (2.5-4.9)
[2021-08-27 09:09] LABS: BILIRUBIN,TOTAL 0.4 mg/dL (0.2-1); TOT PROT 6.3 g/dl (6.4-8.2)
[2021-08-27] MEDS: METOPROLOL TARTRATE 50 MG TABLET (FP) PO SCH ×2 (09:45→21:04)
[2021-08-27] MEDS: ASPIRIN COATED 81 MG TABLET.EC PO SCH (09:45)
[2021-08-27] MEDS: LOSARTAN POTASSIUM 50 MG TABLET PO SCH (09:45)
[2021-08-27] MEDS: PANTOPRAZOLE SODIUM 40 MG VIAL IVPUSH SCH (09:45)
[2021-08-27] MEDS: POLYETHYLENE GLYCOL (HEALTHYLAX) 3350 17 GM PACKET PO SCH (09:46)
[2021-08-27] MEDS ORDERED: INSULIN (NOVOLOG) ASPART 100 UNITS/ML 10ML VIAL ONE (20:27)
[2021-08-27] MEDS: ATORVASTATIN CA 40 MG TABLET (FP) PO SCH (21:04)
[2021-08-28] MEDS: HEPARIN NA (PORCINE) 5,000 UNITS/ML 1ML VIAL SQ SCH ×2 (05:33→14:20)
[2021-08-28] MEDS: hydrALAZINE HCL 50 MG TABLET (FP) PO SCH ×2 (05:33→14:20)
[2021-08-28] MEDS: INSULIN SLIDING SCALE (NOVOLOG) 1 VIAL SQ SCH ×2 (06:19→10:33)
[2021-08-28] MEDS: LIPASE/PROTEASE/AMYLASE 36,000 UNIT CAPSULE PO SCH ×2 (08:41→12:44)
[2021-08-28] MEDS ORDERED: SODIUM CHLORIDE 250 ML IV PRN (09:00)
[2021-08-28 09:25] LABS: BASO % 0.3 % (0-2.0); EOS % 1.7 % (0-4.5); HEMATOCRIT 33.5 % (35.4-49); HEMOGLOBIN 10.8 GM/dL (11.7-16.9); LYMPH % 33.4 % (8-40); MCHC 32.1 g/dl (32.0-35.9); MEAN CELL VOLUME 90.2 fl (80-96); MEAN PLT VOLUME 8.5 fl (7.5-11.1); MONO % 8.8 % (3.8-10.2); NEUT % 55.8 % (42.8-82.8); PLATELET COUNT 203 10^3/uL (134-434); RBC 3.72 M/mm3 (4.00-5.60); RDW 16.6 % (11.9-15.9); WHITE BLOOD COUNT 7.3 K/mm3 (4.0-10.0)
[2021-08-28 09:29] LABS: CHLORIDE 99 mmol/L (98-107); SODIUM 138 mmol/L (136-145)
[2021-08-28 09:30] LABS: CALCIUM 8.1 mg/dL (8.5-10.1)
[2021-08-28 09:31] LABS: ANION GAP 8 MMOL/L (8-16); BLOOD UREA NITROGEN 42.9 mg/dL (7-18); CO2 31 mmol/L (21-32); GLUCOSE,RANDOM 142 mg/dL (74-106)
[2021-08-28 09:34] LABS: CREATININE 8.6 mg/dL (0.55-1.3); PHOSPHOROUS 5.7 mg/dL (2.5-4.9)
[2021-08-28] MEDS: LOSARTAN POTASSIUM 50 MG TABLET PO SCH (12:43)
[2021-08-28] MEDS: METOPROLOL TARTRATE 50 MG TABLET (FP) PO SCH (12:43)
[2021-08-28] MEDS: POLYETHYLENE GLYCOL (HEALTHYLAX) 3350 17 GM PACKET PO SCH (12:43)
[2021-08-28] MEDS: PANTOPRAZOLE SODIUM 40 MG VIAL IVPUSH SCH (12:43)
[2021-08-28] MEDS: ASPIRIN COATED 81 MG TABLET.EC PO SCH (12:43)
[2021-08-28 15:19] VITALS: BP 108/77; PULSE 82; TEMP 98.3
== END 2021-08-28 17:21 | disposition home or self-care (01) | DRG 73 ==
LOC: JER 15:34 → JERBED 18:26 → INTOOBSV 18:26 → J6S 08-26 05:31 → OBSVTOIN 08-27 15:01
PROVIDERS: ADMIT Hospitalist; ATTEND Internal Medicine
PROC: 5A1D70Z Performance of Urinary Filtration, Intermittent, Less than 6 Hours Per Day (ICD-10-PCS; principal; 2021-08-26)
PROC: 5A1D70Z Performance of Urinary Filtration, Intermittent, Less than 6 Hours Per Day (ICD-10-PCS; 2021-08-28)
DX: E11.43 Type 2 diabetes mellitus with diabetic autonomic (poly)neuropathy (principal); N18.6 End stage renal disease; E87.0 Hyperosmolality and hypernatremia; I13.2 Hypertensive heart and chronic kidney disease with heart failure and with stage 5 chronic kidney disease, or end stage renal disease; I50.32 Chronic diastolic (congestive) heart failure; E87.3 Alkalosis; N17.9 Acute kidney failure, unspecified; K31.84 Gastroparesis; N40.0 Benign prostatic hyperplasia without lower urinary tract symptoms; D72.829 Elevated white blood cell count, unspecified; E78.5 Hyperlipidemia, unspecified; K59.00 Constipation, unspecified; F41.8 Other specified anxiety disorders; I16.0 Hypertensive urgency; E11.22 Type 2 diabetes mellitus with diabetic chronic kidney disease; Z99.2 Dependence on renal dialysis; K86.89 Other specified diseases of pancreas; R80.9 Proteinuria, unspecified; Z86.718 Personal history of other venous thrombosis and embolism; Z86.711 Personal history of pulmonary embolism; Z89.422 Acquired absence of other left toe(s); Z89.421 Acquired absence of other right toe(s)
CPT/HCPCS: 36415; 80048; 80053; 82962; 83735; 84100; 85025; 93005; 93010; 99285-25; C9803-CS; G0378; J1644; U0003; U0005

== ENCOUNTER 2021-09-06 19:31 | Inpatient (IN) | payer OTHER ==
[2021-09-06 19:39] VITALS: BMI 22.5
[2021-09-06 22:14] LABS: VENOUS BASE EXCESS 3.3 mmol/L (-2-2); VENOUS O2 SATURATION 74.5 % (70-80); VENOUS PCO2 48.7 mmHg (38-52); VENOUS PH 7.393 (7.310-7.410)
[2021-09-06 22:16] LABS: BASO % 0.5 % (0-2.0); EOS % 0.1 % (0-4.5); MCH 29.1 pg (25.7-33.7); MCHC 32.3 g/dl (32.0-35.9); MEAN PLT VOLUME 7.8 fl (7.5-11.1); MONO % 3.9 % (3.8-10.2); NEUT % 87.5 % (42.8-82.8); PLATELET COUNT 349 10^3/uL (134-434); RBC 4.11 M/mm3 (4.00-5.60); RDW 16.7 % (11.9-15.9); WHITE BLOOD COUNT 16.4 K/mm3 (4.0-10.0)
[2021-09-06] MEDS ORDERED: ONDANSETRON 4 MG/2 ML VIAL IVPUSH ONE (22:21)
[2021-09-06] MEDS ORDERED: SODIUM CHLORIDE 0.9% 500 ML INFUS.BAG IV ONE (22:22)
[2021-09-06] MEDS ORDERED: ONDANSETRON 4 MG/2 ML VIAL ONE (22:24)
[2021-09-06 22:33] LABS: CHLORIDE 111 mmol/L (98-107); SODIUM 150 mmol/L (136-145)
[2021-09-06 22:37] LABS: ANION GAP 10 MMOL/L (8-16); BLOOD UREA NITROGEN 52.8 mg/dL (7-18); CO2 29 mmol/L (21-32); GLUCOSE,RANDOM 161 mg/dL (74-106); LIPASE 175 U/L (73-393)
[2021-09-06 22:40] LABS: SGOT/AST 20 U/L (15-37); SGPT/ALT 14 U/L (13-61)
[2021-09-06 22:42] LABS: BILIRUBIN,TOTAL 0.4 mg/dL (0.2-1); TOT PROT 7.7 g/dl (6.4-8.2)
[2021-09-06 22:43] LABS: ALK PHOS 126 U/L (45-117)
[2021-09-06 22:48] LABS: ALBUMIN 3.9 g/dl (3.4-5.0); CALCIUM 9.6 mg/dL (8.5-10.1); CREATININE 8.2 mg/dL (0.55-1.3)
[2021-09-06] MEDS ORDERED: HYDROmorphone HCL CARPU-JECT 2 MG/1 ML DISP.SYRIN IVPUSH ONE (22:57)
[2021-09-06] MEDS ORDERED: HYDROmorphone HCl 2 MG/ML VIAL ONE (22:57)
[2021-09-06] MEDS ORDERED: DEXTROSE 5%-WATER - 1,000 ML IV SCH (23:15)
[2021-09-06] MEDS ORDERED: SODIUM CHLORIDE 0.45% 1,000 ML IV SCH (23:15)
[2021-09-07] MEDS ORDERED: LABETALOL HCL 5 MG/1 ML (100MG/20 ML VIAL) IVPUSH ONE ×2 (00:11→08:08)
[2021-09-07] MEDS ORDERED: LABETALOL HCL 5 MG/1 ML (200MG/40ML VIAL) IVPB ONE ×2 (00:24→08:12)
[2021-09-07] MEDS ORDERED: LABETALOL HCL 5 MG/1 ML (100MG/20 ML VIAL) IVPUSH PRN (00:43)
[2021-09-07 02:30] LABS: CHLORIDE 111 mmol/L (98-107); SODIUM 150 mmol/L (136-145)
[2021-09-07 02:31] LABS: CALCIUM 8.9 mg/dL (8.5-10.1)
[2021-09-07 02:32] LABS: ANION GAP 8 MMOL/L (8-16); BLOOD UREA NITROGEN 53.1 mg/dL (7-18); CO2 30 mmol/L (21-32); GLUCOSE,RANDOM 139 mg/dL (74-106)
[2021-09-07 02:37] LABS: CREATININE 7.9 mg/dL (0.55-1.3)
[2021-09-07] MEDS ORDERED: morphine CARPU-JECT 2 MG/1 ML DISP.SYRIN IVPUSH PRN (04:54)
[2021-09-07] MEDS ORDERED: TRIMETHOBENZAMIDE HCL 200MG/2ML INJ IM ONE (04:55)
[2021-09-07] MEDS ORDERED: morphine SULFATE 4 MG/ML VIAL ONE (05:08)
[2021-09-07] MEDS: HEPARIN NA (PORCINE) 5,000 UNITS/ML 1ML VIAL SQ SCH ×3 (05:12→22:59)
[2021-09-07] MEDS: TRIMETHOBENZAMIDE HCL 200MG/2ML INJ IM PRN (05:12)
[2021-09-07] MEDS ORDERED: HEPARIN NA (PORCINE) 5,000 UNITS/ML 1ML VIAL ONE (05:13)
[2021-09-07 05:47] LABS: BASO % 0.3 % (0-2.0); HEMATOCRIT 36.8 % (35.4-49); HEMOGLOBIN 11.5 GM/dL (11.7-16.9); LYMPH % 12.4 % (8-40); MCH 28.5 pg (25.7-33.7); MCHC 31.3 g/dl (32.0-35.9); MEAN CELL VOLUME 90.9 fl (80-96); MONO % 7.6 % (3.8-10.2); NEUT % 79.7 % (42.8-82.8); PLATELET COUNT 351 10^3/uL (134-434); RBC 4.05 M/mm3 (4.00-5.60); RDW 17.2 % (11.9-15.9); WHITE BLOOD COUNT 14.7 K/mm3 (4.0-10.0)
[2021-09-07 06:09] LABS: CHLORIDE 110 mmol/L (98-107); SODIUM 149 mmol/L (136-145)
[2021-09-07 06:13] LABS: CALCIUM 8.7 mg/dL (8.5-10.1)
[2021-09-07 06:14] LABS: ALBUMIN 3.6 g/dl (3.4-5.0); ANION GAP 8 MMOL/L (8-16); BLOOD UREA NITROGEN 55.2 mg/dL (7-18); CO2 31 mmol/L (21-32); GLUCOSE,RANDOM 149 mg/dL (74-106); MAGNESIUM 2.5 mg/dL (1.8-2.4)
[2021-09-07 06:17] LABS: PHOSPHOROUS 5.8 mg/dL (2.5-4.9); SGOT/AST 13 U/L (15-37); SGPT/ALT 14 U/L (13-61)
[2021-09-07 06:18] LABS: BILIRUBIN,TOTAL 0.5 mg/dL (0.2-1)
[2021-09-07 06:19] LABS: TOT PROT 7.2 g/dl (6.4-8.2)
[2021-09-07 06:20] LABS: ALK PHOS 120 U/L (45-117)
[2021-09-07 06:22] LABS: CREATININE 8.5 mg/dL (0.55-1.3)
[2021-09-07] MEDS: INSULIN SLIDING SCALE (NOVOLOG) 1 VIAL SQ SCH ×4 (06:35→23:05)
[2021-09-07] MEDS ORDERED: SODIUM CHLORIDE 250 ML IV PRN (06:47)
[2021-09-07] MEDS ORDERED: ACETAMINOPHEN 1000 MG/100 ML BAG IVPB PRN (08:47)
[2021-09-07] MEDS ORDERED: ONDANSETRON 4 MG/2 ML VIAL ONE (08:53)
[2021-09-07] MEDS ORDERED: SODIUM CHLORIDE 1,000 ML IV SCH (13:15)
[2021-09-07] MEDS: hydrALAZINE HCL 50 MG TABLET (FP) PO SCH ×3 (15:59→23:06)
[2021-09-07] MEDS ORDERED: hydrALAZINE HCL 20 MG/ML VIAL IVPUSH PRN (16:47)
[2021-09-07] MEDS: LIPASE/PROTEASE/AMYLASE 36,000 UNIT CAPSULE PO SCH (18:37)
[2021-09-07] MEDS ORDERED: SODIUM CHLORIDE 0.45% 1,000 ML IV SCH (19:30)
[2021-09-07] MEDS: METOPROLOL TARTRATE 50 MG TABLET (FP) PO SCH ×2 (22:58→23:06)
[2021-09-07] MEDS: ATORVASTATIN CA 40 MG TABLET (FP) PO SCH ×2 (22:58→23:06)
[2021-09-08] MEDS: HEPARIN NA (PORCINE) 5,000 UNITS/ML 1ML VIAL SQ SCH ×3 (06:30→22:24)
[2021-09-08] MEDS: hydrALAZINE HCL 50 MG TABLET (FP) PO SCH ×3 (06:31→22:24)
[2021-09-08] MEDS: INSULIN SLIDING SCALE (NOVOLOG) 1 VIAL SQ SCH ×4 (06:36→22:06)
[2021-09-08] MEDS: TRIMETHOBENZAMIDE HCL 200MG/2ML INJ IM PRN (06:40)
[2021-09-08 08:35] LABS: BASO % 0.4 % (0-2.0); EOS % 0.5 % (0-4.5); HEMATOCRIT 35.3 % (35.4-49); HEMOGLOBIN 11.6 GM/dL (11.7-16.9); LYMPH % 18.8 % (8-40); MCH 29.7 pg (25.7-33.7); MCHC 32.9 g/dl (32.0-35.9); MEAN CELL VOLUME 90.4 fl (80-96); MEAN PLT VOLUME 7.9 fl (7.5-11.1); MONO % 7.2 % (3.8-10.2); NEUT % 73.1 % (42.8-82.8); PLATELET COUNT 318 10^3/uL (134-434); RBC 3.91 M/mm3 (4.00-5.60); RDW 16.8 % (11.9-15.9); WHITE BLOOD COUNT 9.8 K/mm3 (4.0-10.0)
[2021-09-08 09:39] LABS: ALBUMIN 3.2 g/dl (3.4-5.0); CALCIUM 8.6 mg/dL (8.5-10.1)
[2021-09-08 09:43] LABS: CREATININE 6.2 mg/dL (0.55-1.3); PHOSPHOROUS 5.2 mg/dL (2.5-4.9)
[2021-09-08 09:44] LABS: BILIRUBIN,TOTAL 0.4 mg/dL (0.2-1); TOT PROT 6.5 g/dl (6.4-8.2)
[2021-09-08 09:52] LABS: MAGNESIUM 2.1 mg/dL (1.8-2.4)
[2021-09-08 09:56] LABS: BLOOD UREA NITROGEN 29.8 mg/dL (7-18)
[2021-09-08] MEDS ORDERED: PANTOPRAZOLE 40 MG TABLET PO SCH (10:00)
[2021-09-08] MEDS: LIPASE/PROTEASE/AMYLASE 36,000 UNIT CAPSULE PO SCH ×3 (10:10→17:02)
[2021-09-08] MEDS: LOSARTAN POTASSIUM 50 MG TABLET PO SCH (10:58)
[2021-09-08] MEDS: POLYETHYLENE GLYCOL (HEALTHYLAX) 3350 17 GM PACKET PO SCH (10:58)
[2021-09-08] MEDS: ASPIRIN COATED 81 MG TABLET.EC PO SCH (10:58)
[2021-09-08] MEDS: METOPROLOL TARTRATE 50 MG TABLET (FP) PO SCH ×2 (10:58→22:24)
[2021-09-08] MEDS ORDERED: SODIUM CHLORIDE 250 ML IV PRN (12:20)
[2021-09-08] MEDS: DEXTROSE 5%-0.45% SALINE 1,000 ML IV SCH (13:03)
[2021-09-08] MEDS ORDERED: ACETAMINOPHEN 1000 MG/100 ML BAG IVPB PRN (18:24)
[2021-09-08 21:50] LABS: EPI CELLS 7 /uL (0-25.1); HYALINE CASTS 1 /uL (0-3.1); PH,URINE 5.5 (5.0-8.0); URINE APPEARANCE CLEAR; URINE BACTERIA 0 /uL (0-1359); URINE BILIRUBIN NEGATIVE (NEGATIVE); URINE COLOR YELLOW; URINE GLUCOSE (UA) NEGATIVE (NEGATIVE); URINE KETONE NEGATIVE (NEGATIVE); URINE LEUK ESTERASE NEGATIVE (NEGATIVE); URINE NITRITE NEGATIVE (NEGATIVE); URINE PROTEIN 3+ (NEGATIVE); URINE RBC 12 /uL (0-23.9); URINE UROBILINOGEN 0.2 mg/dL (0.2-1.0); URINE WBC 44 /uL (0-25.8)
[2021-09-08] MEDS: ATORVASTATIN CA 40 MG TABLET (FP) PO SCH (22:24)
[2021-09-09] MEDS: HEPARIN NA (PORCINE) 5,000 UNITS/ML 1ML VIAL SQ SCH ×3 (05:59→21:44)
[2021-09-09] MEDS: INSULIN SLIDING SCALE (NOVOLOG) 1 VIAL SQ SCH ×4 (05:59→21:48)
[2021-09-09] MEDS: hydrALAZINE HCL 50 MG TABLET (FP) PO SCH ×3 (05:59→21:35)
[2021-09-09 07:14] LABS: BASO % 0.5 % (0-2.0); EOS % 1.2 % (0-4.5); HEMATOCRIT 35.9 % (35.4-49); HEMOGLOBIN 11.8 GM/dL (11.7-16.9); MCH 29.7 pg (25.7-33.7); MEAN CELL VOLUME 89.9 fl (80-96); MEAN PLT VOLUME 7.7 fl (7.5-11.1); MONO % 7.1 % (3.8-10.2); NEUT % 64.2 % (42.8-82.8); PLATELET COUNT 319 10^3/uL (134-434); RBC 3.99 M/mm3 (4.00-5.60); RDW 16.9 % (11.9-15.9)
[2021-09-09] MEDS ORDERED: SIMETHICONE 80 MG TAB.CHEW (FP) PO PRN (07:37)
[2021-09-09 07:40] LABS: ALBUMIN 3.1 g/dl (3.4-5.0); BLOOD UREA NITROGEN 40.4 mg/dL (7-18); CALCIUM 8.5 mg/dL (8.5-10.1); MAGNESIUM 2.2 mg/dL (1.8-2.4)
[2021-09-09 07:43] LABS: PHOSPHOROUS 5.3 mg/dL (2.5-4.9)
[2021-09-09 07:45] LABS: BILIRUBIN,TOTAL 0.4 mg/dL (0.2-1); TOT PROT 6.3 g/dl (6.4-8.2)
[2021-09-09 07:47] LABS: CREATININE 7.4 mg/dL (0.55-1.3)
[2021-09-09] MEDS: LIPASE/PROTEASE/AMYLASE 36,000 UNIT CAPSULE PO SCH ×3 (09:35→17:45)
[2021-09-09] MEDS ORDERED: SODIUM CHLORIDE 250 ML IV PRN (10:03)
[2021-09-09] MEDS: LOSARTAN POTASSIUM 50 MG TABLET PO SCH (14:21)
[2021-09-09] MEDS: METOPROLOL TARTRATE 50 MG TABLET (FP) PO SCH ×2 (14:22→21:35)
[2021-09-09] MEDS: ASPIRIN COATED 81 MG TABLET.EC PO SCH (14:22)
[2021-09-09] MEDS: POLYETHYLENE GLYCOL (HEALTHYLAX) 3350 17 GM PACKET PO SCH (14:22)
[2021-09-09] MEDS: PANTOPRAZOLE 40 MG TABLET PO SCH ×2 (14:23→21:44)
[2021-09-09] MEDS: DEXTROSE 5%-0.45% SALINE 1,000 ML IV SCH (17:45)
[2021-09-09] MEDS: ATORVASTATIN CA 40 MG TABLET (FP) PO SCH (21:44)
[2021-09-09] MEDS ORDERED: AMITRIPTYLINE HCL 25 MG TABLET PO SCH (22:00)
[2021-09-10] MEDS: HEPARIN NA (PORCINE) 5,000 UNITS/ML 1ML VIAL SQ SCH ×2 (05:45→14:47)
[2021-09-10] MEDS: hydrALAZINE HCL 50 MG TABLET (FP) PO SCH ×2 (05:45→14:52)
[2021-09-10] MEDS: INSULIN SLIDING SCALE (NOVOLOG) 1 VIAL SQ SCH ×3 (06:23→16:31)
[2021-09-10] MEDS ORDERED: GABAPENTIN 100 MG CAPSULE PO SCH (07:45)
[2021-09-10 09:17] LABS: BASO % 0.5 % (0-2.0); EOS % 1.3 % (0-4.5); HEMATOCRIT 34.2 % (35.4-49); HEMOGLOBIN 11.1 GM/dL (11.7-16.9); MCH 29.4 pg (25.7-33.7); MCHC 32.5 g/dl (32.0-35.9); MEAN CELL VOLUME 90.4 fl (80-96); MEAN PLT VOLUME 8.3 fl (7.5-11.1); MONO % 8.2 % (3.8-10.2); PLATELET COUNT 301 10^3/uL (134-434); RBC 3.79 M/mm3 (4.00-5.60); RDW 16.4 % (11.9-15.9); WHITE BLOOD COUNT 7.9 K/mm3 (4.0-10.0)
[2021-09-10 09:41] LABS: CALCIUM 8.1 mg/dL (8.5-10.1)
[2021-09-10 09:42] LABS: ALBUMIN 2.9 g/dl (3.4-5.0); BLOOD UREA NITROGEN 39.4 mg/dL (7-18); MAGNESIUM 2.1 mg/dL (1.8-2.4)
[2021-09-10 09:44] LABS: CREATININE 6.3 mg/dL (0.55-1.3); PHOSPHOROUS 4.9 mg/dL (2.5-4.9)
[2021-09-10 09:46] LABS: BILIRUBIN,TOTAL 0.3 mg/dL (0.2-1); TOT PROT 5.9 g/dl (6.4-8.2)
[2021-09-10] MEDS ORDERED: CALCITRIOL 0.25 MCG CAPSULE (FP) PO SCH (10:00)
[2021-09-10] MEDS: POLYETHYLENE GLYCOL (HEALTHYLAX) 3350 17 GM PACKET PO SCH (10:00)
[2021-09-10] MEDS: LIPASE/PROTEASE/AMYLASE 36,000 UNIT CAPSULE PO SCH ×2 (10:05→14:47)
[2021-09-10 12:51] VITALS: TEMP 98.5
[2021-09-10 14:20] VITALS: BP 143/94; PULSE 77
[2021-09-10] MEDS: METOPROLOL TARTRATE 50 MG TABLET (FP) PO SCH (14:46)
[2021-09-10] MEDS: ASPIRIN COATED 81 MG TABLET.EC PO SCH (14:46)
[2021-09-10] MEDS: LOSARTAN POTASSIUM 50 MG TABLET PO SCH (14:46)
[2021-09-10] MEDS: PANTOPRAZOLE 40 MG TABLET PO SCH (14:46)
== END 2021-09-10 16:42 | disposition home or self-care (01) | DRG 73 ==
LOC: JER 19:31 → JERBED 22:50 → J5S 09-07 13:48
PROVIDERS: ADMIT Internal Medicine; ATTEND Internal Medicine
PROC: 5A1D70Z Performance of Urinary Filtration, Intermittent, Less than 6 Hours Per Day (ICD-10-PCS; principal; 2021-09-09)
DX: E11.43 Type 2 diabetes mellitus with diabetic autonomic (poly)neuropathy (principal); N18.6 End stage renal disease; I50.32 Chronic diastolic (congestive) heart failure; I13.2 Hypertensive heart and chronic kidney disease with heart failure and with stage 5 chronic kidney disease, or end stage renal disease; E87.0 Hyperosmolality and hypernatremia; I16.0 Hypertensive urgency; E86.0 Dehydration; K31.84 Gastroparesis; D72.829 Elevated white blood cell count, unspecified; I95.9 Hypotension, unspecified; E78.5 Hyperlipidemia, unspecified
CPT/HCPCS: 36415; 71045-TC-FY; 80048; 80053; 81003; 82803; 82962; 83605; 83690; 83735; 84100; 84484; 85025; 86803; 87086; 87340; 93005; 93010; 99291; 99292; C9803-CS; J1644; U0003; U0005

== ENCOUNTER 2021-09-17 15:44 | Observation (INO) | payer OTHER ==
[2021-09-17] MEDS ORDERED: PANTOPRAZOLE SODIUM 40 MG VIAL IVPUSH ONE (16:24)
[2021-09-17] MEDS ORDERED: ACETAMINOPHEN 1000 MG/100 ML BAG IVPB ONE (16:24)
[2021-09-17] MEDS ORDERED: TRIMETHOBENZAMIDE HCL 200MG/2ML INJ IM ONE ×2 (16:24→16:45)
[2021-09-17] MEDS ORDERED: ACETAMINOPHEN INJECTION 100 ML IVPB ONE (16:45)
[2021-09-17] MEDS ORDERED: PANTOPRAZOLE SODIUM 40 MG VIAL ONE (16:45)
[2021-09-17 17:11] LABS: BASO % 0.4 % (0-2.0); EOS % 0.4 % (0-4.5); HEMATOCRIT 36.8 % (35.4-49); HEMOGLOBIN 11.8 GM/dL (11.7-16.9); LYMPH % 13.4 % (8-40); MCH 28.9 pg (25.7-33.7); MCHC 32.1 g/dl (32.0-35.9); MEAN CELL VOLUME 90.1 fl (80-96); MEAN PLT VOLUME 9.7 fl (7.5-11.1); MONO % 4.3 % (3.8-10.2); NEUT % 81.5 % (42.8-82.8); PLATELET COUNT 289 10^3/uL (134-434); RBC 4.08 M/mm3 (4.00-5.60); RDW 16.3 % (11.9-15.9); WHITE BLOOD COUNT 11.8 K/mm3 (4.0-10.0)
[2021-09-17] MEDS ORDERED: ONDANSETRON 4 MG/2 ML VIAL IVPUSH ONE (17:22)
[2021-09-17] MEDS ORDERED: ONDANSETRON 4 MG/2 ML VIAL ONE (17:26)
[2021-09-17] MEDS ORDERED: SODIUM CHLORIDE 250 ML IV PRN (17:32)
[2021-09-17 17:37] LABS: ACTIVATED PTT 25.7 SECONDS (25.2-36.5); INR 0.92 (0.83-1.09); PROTHROMBIN TIME (PATIENT) 10.6 SEC (9.7-13.0)
[2021-09-17 17:38] LABS: BLOOD UREA NITROGEN 44.4 mg/dL (7-18); CALCIUM 9.3 mg/dL (8.5-10.1); MAGNESIUM 2.4 mg/dL (1.8-2.4)
[2021-09-17 17:42] LABS: BILIRUBIN,TOTAL 0.4 mg/dL (0.2-1); TOT PROT 7.4 g/dl (6.4-8.2)
[2021-09-17 17:55] LABS: ALBUMIN 3.8 g/dl (3.4-5.0)
[2021-09-17] MEDS ORDERED: hydrALAZINE HCL 20 MG/ML VIAL IVPUSH ONE (19:50)
[2021-09-17] MEDS ORDERED: HYDROmorphone HCl 2 MG/ML VIAL IVPUSH ONE (20:08)
[2021-09-17] MEDS ORDERED: TRIMETHOBENZAMIDE HCL 200MG/2ML INJ IM PRN (20:13)
[2021-09-17] MEDS ORDERED: HYDROmorphone HCl 2 MG/ML VIAL ONE (20:17)
[2021-09-17] MEDS ORDERED: hydrALAZINE HCL 20 MG/ML VIAL ONE (20:18)
[2021-09-17] MEDS: INSULIN SLIDING SCALE (NOVOLOG) 1 VIAL SQ SCH (23:22)
[2021-09-17] MEDS: ACETAMINOPHEN 1000 MG/100 ML BAG IVPB PRN (23:55)
[2021-09-17] MEDS ORDERED: hydrALAZINE HCL 20 MG/ML VIAL IVPUSH PRN ×2 (23:59)
[2021-09-18 00:59] VITALS: BMI 22.9
[2021-09-18 01:14] LABS: HEMATOCRIT 35.5 % (35.4-49); HEMOGLOBIN 11.3 GM/dL (11.7-16.9); MCH 28.9 pg (25.7-33.7); MEAN CELL VOLUME 90.3 fl (80-96); MEAN PLT VOLUME 9.1 fl (7.5-11.1); PLATELET COUNT 268 10^3/uL (134-434); RBC 3.93 M/mm3 (4.00-5.60); RDW 16.7 % (11.9-15.9); WHITE BLOOD COUNT 12.5 K/mm3 (4.0-10.0)
[2021-09-18] MEDS: INSULIN SLIDING SCALE (NOVOLOG) 1 VIAL SQ SCH ×4 (06:28→21:03)
[2021-09-18 09:26] LABS: MAGNESIUM 2.4 mg/dL (1.8-2.4)
[2021-09-18 09:30] LABS: PHOSPHOROUS 5.4 mg/dL (2.5-4.9)
[2021-09-18 09:44] LABS: HEMATOCRIT 34.5 % (35.4-49); MEAN CELL VOLUME 90.6 fl (80-96); MEAN PLT VOLUME 9.1 fl (7.5-11.1); PLATELET COUNT 253 10^3/uL (134-434); RBC 3.81 M/mm3 (4.00-5.60); RDW 16.9 % (11.9-15.9); WHITE BLOOD COUNT 12.2 K/mm3 (4.0-10.0)
[2021-09-18] MEDS ORDERED: PANTOPRAZOLE SODIUM 40 MG VIAL IVPUSH SCH (10:00)
[2021-09-18 10:02] LABS: BLOOD UREA NITROGEN 49.2 mg/dL (7-18); CALCIUM 8.6 mg/dL (8.5-10.1)
[2021-09-18 10:06] LABS: CREATININE 7.3 mg/dL (0.55-1.3)
[2021-09-18] MEDS ORDERED: SIMETHICONE 80 MG TAB.CHEW (FP) PO PRN (10:36)
[2021-09-18] MEDS ORDERED: CALCITRIOL 0.25 MCG CAPSULE (FP) PO SCH (10:45)
[2021-09-18] MEDS: METOCLOPRAMIDE HCL INJECTION 10 MG/2 ML VIAL IVPUSH SCH ×3 (13:09→22:55)
[2021-09-18] MEDS: PANTOPRAZOLE 40 MG TABLET PO SCH (13:12)
[2021-09-18] MEDS: LIPASE/PROTEASE/AMYLASE 36,000 UNIT CAPSULE PO SCH ×2 (13:12→17:18)
[2021-09-18] MEDS: hydrALAZINE HCL 50 MG TABLET (FP) PO SCH ×2 (13:20→21:02)
[2021-09-18 13:24] LABS: EPI CELLS 14 /uL (0-25.1); HYALINE CASTS 2 /uL (0-3.1); PH,URINE 5.5 (5.0-8.0); URINE APPEARANCE CLEAR; URINE BACTERIA 2 /uL (0-1359); URINE BILIRUBIN NEGATIVE (NEGATIVE); URINE COLOR YELLOW; URINE GLUCOSE (UA) NEGATIVE (NEGATIVE); URINE KETONE NEGATIVE (NEGATIVE); URINE LEUK ESTERASE NEGATIVE (NEGATIVE); URINE NITRITE NEGATIVE (NEGATIVE); URINE PROTEIN 4+ (NEGATIVE); URINE RBC 23 /uL (0-23.9); URINE UROBILINOGEN 0.2 mg/dL (0.2-1.0); URINE WBC 42 /uL (0-25.8)
[2021-09-18] MEDS: GABAPENTIN 100 MG CAPSULE PO SCH ×2 (14:26→21:02)
[2021-09-18] MEDS: ACETAMINOPHEN 1000 MG/100 ML BAG IVPB PRN (15:12)
[2021-09-18 15:34] LABS: HEMATOCRIT 33.9 % (35.4-49); MCH 29.2 pg (25.7-33.7); MCHC 32.6 g/dl (32.0-35.9); MEAN CELL VOLUME 89.6 fl (80-96); MEAN PLT VOLUME 8.8 fl (7.5-11.1); PLATELET COUNT 226 10^3/uL (134-434); RBC 3.78 M/mm3 (4.00-5.60); RDW 17.1 % (11.9-15.9); WHITE BLOOD COUNT 10.7 K/mm3 (4.0-10.0)
[2021-09-18] MEDS ORDERED: INSULIN (NOVOLOG) ASPART 100 UNITS/ML 10ML VIAL ONE ×2 (17:14→17:27)
[2021-09-18] MEDS: METOPROLOL TARTRATE 50 MG TABLET (FP) PO SCH (21:08)
[2021-09-18] MEDS ORDERED: ATORVASTATIN CA 40 MG TABLET (FP) PO SCH (22:00)
[2021-09-19] MEDS: METOCLOPRAMIDE HCL INJECTION 10 MG/2 ML VIAL IVPUSH SCH (04:27)
[2021-09-19] MEDS: hydrALAZINE HCL 50 MG TABLET (FP) PO SCH ×2 (05:26→14:51)
[2021-09-19] MEDS: GABAPENTIN 100 MG CAPSULE PO SCH ×2 (05:26→14:51)
[2021-09-19] MEDS: INSULIN SLIDING SCALE (NOVOLOG) 1 VIAL SQ SCH ×3 (06:29→16:44)
[2021-09-19] MEDS: LIPASE/PROTEASE/AMYLASE 36,000 UNIT CAPSULE PO SCH ×2 (08:49→11:23)
[2021-09-19] MEDS: PANTOPRAZOLE 40 MG TABLET PO SCH (09:16)
[2021-09-19] MEDS: METOPROLOL TARTRATE 50 MG TABLET (FP) PO SCH (09:16)
[2021-09-19] MEDS: METOCLOPRAMIDE HCL 10 MG TABLET (FP) PO SCH ×3 (09:17→16:04)
[2021-09-19] MEDS ORDERED: POLYETHYLENE GLYCOL (HEALTHYLAX) 3350 17 GM PACKET PO SCH (10:00)
[2021-09-19] MEDS ORDERED: LOSARTAN POTASSIUM 50 MG TABLET PO SCH (10:00)
[2021-09-19] MEDS ORDERED: ASPIRIN COATED 81 MG TABLET.EC PO SCH (10:00)
[2021-09-19 10:22] LABS: ALBUMIN 3.1 g/dl (3.4-5.0); CALCIUM 8.3 mg/dL (8.5-10.1)
[2021-09-19 10:27] LABS: TOT PROT 6.1 g/dl (6.4-8.2)
[2021-09-19 10:29] LABS: BILIRUBIN,TOTAL 0.3 mg/dL (0.2-1); MAGNESIUM 2.2 mg/dL (1.8-2.4)
[2021-09-19 10:53] LABS: BASO % 0.5 % (0-2.0); EOS % 1.3 % (0-4.5); HEMATOCRIT 33.4 % (35.4-49); HEMOGLOBIN 10.7 GM/dL (11.7-16.9); LYMPH % 31.3 % (8-40); MCH 29.2 pg (25.7-33.7); MCHC 32.1 g/dl (32.0-35.9); MEAN CELL VOLUME 90.7 fl (80-96); MONO % 6.6 % (3.8-10.2); NEUT % 60.3 % (42.8-82.8); PLATELET COUNT 215 10^3/uL (134-434); RBC 3.68 M/mm3 (4.00-5.60); RDW 16.7 % (11.9-15.9)
[2021-09-19 16:43] VITALS: BP 101/75; PULSE 65; TEMP 97.8
[2021-09-20] MEDS ORDERED: GABAPENTIN 100 MG CAPSULE PO SCH (10:00)
== END 2021-09-19 18:10 | disposition home or self-care (01) ==
LOC: JER 15:44 → JERBED 18:04 → INTOOBSV 18:04 → J8W 21:48
PROVIDERS: ADMIT Internal Medicine; ATTEND Nurse Practitioner Acute Care
PROC: 3E033NZ Introduction of Analgesics, Hypnotics, Sedatives into Peripheral Vein, Percutaneous Approach (ICD-10-PCS; principal; 2021-09-17)
PROC: 3E033GC Introduction of Other Therapeutic Substance into Peripheral Vein, Percutaneous Approach (ICD-10-PCS; 2021-09-17)
DX: E11.43 Type 2 diabetes mellitus with diabetic autonomic (poly)neuropathy (principal); I25.10 Atherosclerotic heart disease of native coronary artery without angina pectoris; K31.84 Gastroparesis; E11.22 Type 2 diabetes mellitus with diabetic chronic kidney disease; I13.11 Hypertensive heart and chronic kidney disease without heart failure, with stage 5 chronic kidney disease, or end stage renal disease; N18.6 End stage renal disease; Z99.2 Dependence on renal dialysis; Z91.15 Patient's noncompliance with renal dialysis; D64.9 Anemia, unspecified; N40.0 Benign prostatic hyperplasia without lower urinary tract symptoms; N17.9 Acute kidney failure, unspecified; A04.71 Enterocolitis due to Clostridium difficile, recurrent; R11.2 Nausea with vomiting, unspecified; Z29.8 Encounter for other specified prophylactic measures
CPT/HCPCS: 36415; 71045-TC-FY; 80048; 80053; 81003; 82962; 83735; 84100; 84132; 84484; 85025; 85027; 85610; 85730; 86850; 86900; 86901; 87040; 87086; 93005; 93010; 96374; 96375; 96376; 97116-GP; 99285-25; C9803-CS; G0378; U0003; U0005

== ENCOUNTER 2021-10-01 14:50 | Inpatient (IN) | payer OTHER ==
[2021-10-01] MEDS ORDERED: SODIUM CHLORIDE 250 ML IV PRN (15:23)
[2021-10-01] MEDS ORDERED: PANTOPRAZOLE SODIUM 40 MG VIAL IVPUSH ONE (16:03)
[2021-10-01] MEDS ORDERED: ACETAMINOPHEN 1000 MG/100 ML BAG IVPB ONE (16:03)
[2021-10-01] MEDS ORDERED: METOCLOPRAMIDE HCL INJECTION 10 MG/2 ML VIAL IVPB ONE (16:08)
[2021-10-01] MEDS ORDERED: SODIUM CHLORIDE 0.9% 500 ML INFUS.BAG IV ONE (16:08)
[2021-10-01] MEDS ORDERED: METOCLOPRAMIDE HCL INJECTION 10 MG/2 ML VIAL ONE (16:11)
[2021-10-01] MEDS ORDERED: ACETAMINOPHEN INJECTION 100 ML IVPB ONE (16:11)
[2021-10-01] MEDS ORDERED: PANTOPRAZOLE SODIUM 40 MG VIAL ONE (16:11)
[2021-10-01 16:12] LABS: VENOUS O2 SATURATION 92.4 % (70-80); VENOUS PCO2 42.8 mmHg (38-52); VENOUS PH 7.372 (7.310-7.410)
[2021-10-01 16:16] LABS: BASO % 0.2 % (0-2.0); EOS % 0.3 % (0-4.5); HEMATOCRIT 36.4 % (35.4-49); HEMOGLOBIN 11.8 GM/dL (11.7-16.9); LYMPH % 10.8 % (8-40); MCH 29.3 pg (25.7-33.7); MCHC 32.5 g/dl (32.0-35.9); MEAN CELL VOLUME 90.2 fl (80-96); MONO % 4.4 % (3.8-10.2); NEUT % 84.3 % (42.8-82.8); PLATELET COUNT 286 10^3/uL (134-434); RBC 4.04 M/mm3 (4.00-5.60); RDW 17.6 % (11.9-15.9); WHITE BLOOD COUNT 11.8 K/mm3 (4.0-10.0)
[2021-10-01 16:29] LABS: CHLORIDE 108 mmol/L (98-107); SODIUM 143 mmol/L (136-145)
[2021-10-01 16:30] LABS: INR 0.97 (0.83-1.09); PROTHROMBIN TIME (PATIENT) 11.2 SEC (9.7-13.0)
[2021-10-01 16:33] LABS: ANION GAP 10 MMOL/L (8-16); BLOOD UREA NITROGEN 40.7 mg/dL (7-18); CALCIUM 8.8 mg/dL (8.5-10.1); CO2 25 mmol/L (21-32); GLUCOSE,RANDOM 128 mg/dL (74-106); LIPASE 117 U/L (73-393); MAGNESIUM 2.3 mg/dL (1.8-2.4)
[2021-10-01 16:35] LABS: SGOT/AST 11 U/L (15-37); SGPT/ALT 12 U/L (13-61)
[2021-10-01 16:37] LABS: TOT PROT 7.5 g/dl (6.4-8.2)
[2021-10-01 16:38] LABS: ALK PHOS 106 U/L (45-117); BILIRUBIN,TOTAL 0.4 mg/dL (0.2-1)
[2021-10-01 17:08] LABS: ALBUMIN 3.8 g/dl (3.4-5.0); CREATININE 7.9 mg/dL (0.55-1.3)
[2021-10-01] MEDS ORDERED: morphine CARPU-JECT 4 MG/1 ML DISP.SYRIN IVPUSH ONE (18:03)
[2021-10-01] MEDS ORDERED: morphine SULFATE 4 MG/ML VIAL ONE (18:15)
[2021-10-01] MEDS ORDERED: TRIMETHOBENZAMIDE HCL 200MG/2ML INJ IM PRN (19:42)
[2021-10-01] MEDS ORDERED: BISACODYL 10 MG SUPP.RECT PR PRN (19:42)
[2021-10-01] MEDS ORDERED: MELATONIN 5 MG TABLETS PO PRN (19:43)
[2021-10-01] MEDS: SODIUM CHLORIDE 1,000 ML IV SCH ×2 (19:45→21:06)
[2021-10-01] MEDS ORDERED: LABETALOL HCL 5 MG/1 ML (100MG/20 ML VIAL) IVPUSH PRN (20:42)
[2021-10-01] MEDS ORDERED: ACETAMINOPHEN 1000 MG/100 ML BAG IVPB PRN (23:04)
[2021-10-01] MEDS: INSULIN SLIDING SCALE (NOVOLOG) 1 VIAL SQ SCH (23:06)
[2021-10-02] MEDS ORDERED: HYDROmorphone HCl 2 MG/ML VIAL ONE (00:40)
[2021-10-02] MEDS: HYDROmorphone HCl 2 MG/ML VIAL IVPUSH PRN ×3 (00:45→17:53)
[2021-10-02] MEDS ORDERED: HEPARIN NA (PORCINE) 5,000 UNITS/ML 1ML VIAL SQ SCH (02:00)
[2021-10-02 03:01] VITALS: BMI 21.8
[2021-10-02] MEDS: SODIUM CHLORIDE 1,000 ML IV SCH (03:13)
[2021-10-02] MEDS: INSULIN SLIDING SCALE (NOVOLOG) 1 VIAL SQ SCH ×4 (06:14→21:55)
[2021-10-02 06:43] LABS: BASO % 0.4 % (0-2.0); EOS % 0.2 % (0-4.5); HEMATOCRIT 35.3 % (35.4-49); HEMOGLOBIN 11.2 GM/dL (11.7-16.9); LYMPH % 12.8 % (8-40); MCH 28.9 pg (25.7-33.7); MCHC 31.8 g/dl (32.0-35.9); MEAN PLT VOLUME 7.9 fl (7.5-11.1); MONO % 5.3 % (3.8-10.2); NEUT % 81.3 % (42.8-82.8); PLATELET COUNT 281 10^3/uL (134-434); RBC 3.87 M/mm3 (4.00-5.60); RDW 17.8 % (11.9-15.9); WHITE BLOOD COUNT 12.6 K/mm3 (4.0-10.0)
[2021-10-02 07:08] LABS: CHLORIDE 111 mmol/L (98-107); SODIUM 145 mmol/L (136-145)
[2021-10-02 07:10] LABS: ALBUMIN 3.5 g/dl (3.4-5.0); ANION GAP 10 MMOL/L (8-16); CALCIUM 8.4 mg/dL (8.5-10.1); CO2 24 mmol/L (21-32); GLUCOSE,RANDOM 121 mg/dL (74-106); MAGNESIUM 2.2 mg/dL (1.8-2.4)
[2021-10-02 07:14] LABS: SGOT/AST 11 U/L (15-37); SGPT/ALT 11 U/L (13-61)
[2021-10-02 07:15] LABS: BILIRUBIN,TOTAL 0.4 mg/dL (0.2-1); TOT PROT 6.7 g/dl (6.4-8.2)
[2021-10-02 07:16] LABS: ALK PHOS 102 U/L (45-117)
[2021-10-02 07:32] LABS: BLOOD UREA NITROGEN 44.4 mg/dL (7-18); CREATININE 8.1 mg/dL (0.55-1.3)
[2021-10-02] MEDS ORDERED: SIMETHICONE 80 MG TAB.CHEW (FP) PO PRN (07:42)
[2021-10-02] MEDS: LOSARTAN POTASSIUM 50 MG TABLET PO SCH (10:40)
[2021-10-02] MEDS: PANTOPRAZOLE SODIUM 40 MG VIAL IVPUSH SCH (10:40)
[2021-10-02] MEDS: POLYETHYLENE GLYCOL (HEALTHYLAX) 3350 17 GM PACKET PO SCH (10:41)
[2021-10-02] MEDS: METOPROLOL TARTRATE 50 MG TABLET (FP) PO SCH ×2 (10:51→21:47)
[2021-10-02] MEDS: LIPASE/PROTEASE/AMYLASE 36,000 UNIT CAPSULE PO SCH ×3 (10:52→17:45)
[2021-10-02] MEDS: GABAPENTIN 100 MG CAPSULE PO SCH ×2 (13:51→21:46)
[2021-10-02] MEDS: hydrALAZINE HCL 50 MG TABLET (FP) PO SCH ×2 (13:51→21:46)
[2021-10-02] MEDS: ATORVASTATIN CA 40 MG TABLET (FP) PO SCH (21:45)
[2021-10-02] MEDS: AMITRIPTYLINE HCL 25 MG TABLET PO SCH (21:46)
[2021-10-03] MEDS: INSULIN SLIDING SCALE (NOVOLOG) 1 VIAL SQ SCH ×4 (06:26→21:50)
[2021-10-03] MEDS: GABAPENTIN 100 MG CAPSULE PO SCH ×3 (06:26→21:50)
[2021-10-03] MEDS: hydrALAZINE HCL 50 MG TABLET (FP) PO SCH ×3 (06:26→21:49)
[2021-10-03 07:38] LABS: BASO % 0.5 % (0-2.0); EOS % 1.9 % (0-4.5); HEMATOCRIT 32.2 % (35.4-49); HEMOGLOBIN 10.4 GM/dL (11.7-16.9); LYMPH % 31.4 % (8-40); MCH 29.6 pg (25.7-33.7); MCHC 32.4 g/dl (32.0-35.9); MEAN CELL VOLUME 91.3 fl (80-96); NEUT % 58.2 % (42.8-82.8); PLATELET COUNT 258 10^3/uL (134-434); RBC 3.53 M/mm3 (4.00-5.60); RDW 17.6 % (11.9-15.9); WHITE BLOOD COUNT 8.2 K/mm3 (4.0-10.0)
[2021-10-03 07:57] LABS: ALBUMIN 2.9 g/dl (3.4-5.0); BLOOD UREA NITROGEN 27.4 mg/dL (7-18); CALCIUM 7.9 mg/dL (8.5-10.1); MAGNESIUM 1.9 mg/dL (1.8-2.4)
[2021-10-03 08:00] LABS: CREATININE 5.9 mg/dL (0.55-1.3)
[2021-10-03 08:03] LABS: BILIRUBIN,TOTAL 0.4 mg/dL (0.2-1)
[2021-10-03] MEDS: HYDROmorphone HCl 2 MG/ML VIAL IVPUSH PRN (09:20)
[2021-10-03] MEDS: PANTOPRAZOLE SODIUM 40 MG VIAL IVPUSH SCH (09:20)
[2021-10-03] MEDS: POLYETHYLENE GLYCOL (HEALTHYLAX) 3350 17 GM PACKET PO SCH (09:21)
[2021-10-03] MEDS: METOPROLOL TARTRATE 50 MG TABLET (FP) PO SCH ×2 (09:21→21:50)
[2021-10-03] MEDS: LOSARTAN POTASSIUM 50 MG TABLET PO SCH (09:21)
[2021-10-03] MEDS: LIPASE/PROTEASE/AMYLASE 36,000 UNIT CAPSULE PO SCH ×3 (09:22→16:35)
[2021-10-03] MEDS: METOCLOPRAMIDE HCL 10 MG TABLET (FP) PO SCH (16:35)
[2021-10-03] MEDS: ATORVASTATIN CA 40 MG TABLET (FP) PO SCH (21:50)
[2021-10-03] MEDS: AMITRIPTYLINE HCL 25 MG TABLET PO SCH (21:50)
[2021-10-04] MEDS: hydrALAZINE HCL 50 MG TABLET (FP) PO SCH ×2 (06:09→16:46)
[2021-10-04] MEDS: INSULIN SLIDING SCALE (NOVOLOG) 1 VIAL SQ SCH ×3 (06:09→18:44)
[2021-10-04] MEDS: METOCLOPRAMIDE HCL 10 MG TABLET (FP) PO SCH ×3 (06:09→18:43)
[2021-10-04] MEDS: GABAPENTIN 100 MG CAPSULE PO SCH ×2 (06:09→16:46)
[2021-10-04 08:20] LABS: BASO % 0.4 % (0-2.0); EOS % 1.7 % (0-4.5); HEMATOCRIT 32.8 % (35.4-49); HEMOGLOBIN 10.5 GM/dL (11.7-16.9); LYMPH % 31.7 % (8-40); MCH 29.3 pg (25.7-33.7); MCHC 32.1 g/dl (32.0-35.9); MEAN CELL VOLUME 91.3 fl (80-96); MEAN PLT VOLUME 8.2 fl (7.5-11.1); MONO % 8.5 % (3.8-10.2); NEUT % 57.7 % (42.8-82.8); PLATELET COUNT 242 10^3/uL (134-434); RBC 3.59 M/mm3 (4.00-5.60); RDW 17.5 % (11.9-15.9)
[2021-10-04 09:09] LABS: ALBUMIN 2.9 g/dl (3.4-5.0); BLOOD UREA NITROGEN 42.3 mg/dL (7-18); CALCIUM 7.8 mg/dL (8.5-10.1); MAGNESIUM 2.1 mg/dL (1.8-2.4)
[2021-10-04 09:11] LABS: CREATININE 7.3 mg/dL (0.55-1.3)
[2021-10-04 09:14] LABS: BILIRUBIN,TOTAL 0.2 mg/dL (0.2-1); TOT PROT 5.8 g/dl (6.4-8.2)
[2021-10-04] MEDS: LIPASE/PROTEASE/AMYLASE 36,000 UNIT CAPSULE PO SCH ×3 (09:25→18:43)
[2021-10-04] MEDS: METOPROLOL TARTRATE 50 MG TABLET (FP) PO SCH (11:05)
[2021-10-04] MEDS: LOSARTAN POTASSIUM 50 MG TABLET PO SCH (11:05)
[2021-10-04] MEDS: POLYETHYLENE GLYCOL (HEALTHYLAX) 3350 17 GM PACKET PO SCH (11:53)
[2021-10-04] MEDS: PANTOPRAZOLE SODIUM 40 MG VIAL IVPUSH SCH (11:53)
[2021-10-04] MEDS ORDERED: EPOETIN ALFA-EPBX 4,000 UNIT/ML VIAL IVPUSH ONE (13:00)
[2021-10-04] MEDS ORDERED: SODIUM CHLORIDE 250 ML IV PRN (13:00)
[2021-10-04 13:08] VITALS: TEMP 98.8
[2021-10-04 16:25] VITALS: BP 138/74; PULSE 68
== END 2021-10-04 19:42 | disposition home or self-care (01) | DRG 73 ==
LOC: JER 14:50 → JERBED 16:23 → J2W 10-02 02:46 → J8W 10-04 00:15
PROVIDERS: ADMIT Internal Medicine; ATTEND Nurse Practitioner Acute Care
PROC: 5A1D70Z Performance of Urinary Filtration, Intermittent, Less than 6 Hours Per Day (ICD-10-PCS; principal; 2021-10-01)
DX: E11.43 Type 2 diabetes mellitus with diabetic autonomic (poly)neuropathy (principal); N18.6 End stage renal disease; I13.2 Hypertensive heart and chronic kidney disease with heart failure and with stage 5 chronic kidney disease, or end stage renal disease; N17.9 Acute kidney failure, unspecified; I50.32 Chronic diastolic (congestive) heart failure; K31.84 Gastroparesis; E11.22 Type 2 diabetes mellitus with diabetic chronic kidney disease; Z99.2 Dependence on renal dialysis; D64.9 Anemia, unspecified; N40.0 Benign prostatic hyperplasia without lower urinary tract symptoms; Z86.718 Personal history of other venous thrombosis and embolism; R94.31 Abnormal electrocardiogram [ECG] [EKG]; Z86.16 Personal history of COVID-19; Z79.4 Long term (current) use of insulin; I25.10 Atherosclerotic heart disease of native coronary artery without angina pectoris; I25.2 Old myocardial infarction; E78.5 Hyperlipidemia, unspecified; Z86.711 Personal history of pulmonary embolism
CPT/HCPCS: 36415; 71045-TC-FY; 80053; 82803; 82962; 83690; 83735; 84100; 84484; 85025; 85610; 85730; 86850; 86900; 86901; 93005; 93010; 99285-25; C9803-CS; Q5106; U0003; U0005

== ENCOUNTER 2021-10-26 12:09 | Observation (INO) | payer OTHER ==
[2021-10-26] MEDS ORDERED: METOCLOPRAMIDE HCL INJECTION 10 MG/2 ML VIAL IVPUSH ONE (12:44)
[2021-10-26] MEDS ORDERED: SIMETHICONE 80 MG TAB.CHEW (FP) PO ONE (12:45)
[2021-10-26] MEDS ORDERED: PANTOPRAZOLE SODIUM 40 MG VIAL IVPUSH ONE (12:45)
[2021-10-26] MEDS ORDERED: MAG HYDROX/AL HYDROX/SIMETH -MYLANTA- ORAL SUSPENSION PO ONE (12:45)
[2021-10-26] MEDS ORDERED: HYDROmorphone HCL CARPU-JECT 2 MG/1 ML DISP.SYRIN IVPUSH ONE ×2 (12:58→15:31)
[2021-10-26] MEDS ORDERED: METOPROLOL TARTRATE 5 MG/5 ML VIAL IVPUSH ONE (12:59)
[2021-10-26] MEDS ORDERED: HYDROmorphone HCl 2 MG/ML VIAL ONE ×2 (13:09→15:40)
[2021-10-26] MEDS ORDERED: SIMETHICONE 80 MG TAB.CHEW (FP) ONE (13:14)
[2021-10-26] MEDS ORDERED: PANTOPRAZOLE SODIUM 40 MG/100 ML BAG IVPB ONE (13:14)
[2021-10-26] MEDS ORDERED: METOPROLOL TARTRATE 5 MG/5 ML VIAL ONE (13:14)
[2021-10-26] MEDS ORDERED: METOCLOPRAMIDE HCL INJECTION 10 MG/2 ML VIAL ONE (13:14)
[2021-10-26] MEDS ORDERED: MAG HYDROX/AL HYDROX/SIMETH 30 ML UNIT-DOSE CUP ONE (13:15)
[2021-10-26 13:30] LABS: BASO % 0.1 % (0-2.0); HEMATOCRIT 41.1 % (35.4-49); HEMOGLOBIN 13.5 GM/dL (11.7-16.9); LYMPH % 8.4 % (8-40); MCH 29.8 pg (25.7-33.7); MCHC 32.8 g/dl (32.0-35.9); MEAN CELL VOLUME 90.7 fl (80-96); MONO % 5.4 % (3.8-10.2); NEUT % 86.1 % (42.8-82.8); PLATELET COUNT 268 10^3/uL (134-434); RBC 4.53 M/mm3 (4.00-5.60); RDW 18.4 % (11.9-15.9); WHITE BLOOD COUNT 13.7 K/mm3 (4.0-10.0)
[2021-10-26 13:52] LABS: MAGNESIUM 2.5 mg/dL (1.8-2.4)
[2021-10-26 13:53] LABS: CHLORIDE 100 mmol/L (98-107); SODIUM 148 mmol/L (136-145)
[2021-10-26 13:56] LABS: PHOSPHOROUS 4.9 mg/dL (2.5-4.9)
[2021-10-26 13:57] LABS: ALBUMIN 4.2 g/dl (3.4-5.0); CALCIUM 9.5 mg/dL (8.5-10.1)
[2021-10-26 13:58] LABS: ANION GAP 13 MMOL/L (8-16); BLOOD UREA NITROGEN 64.2 mg/dL (7-18); CO2 34 mmol/L (21-32); GLUCOSE,RANDOM 175 mg/dL (74-106); LIPASE 89 U/L (73-393)
[2021-10-26 14:01] LABS: SGOT/AST 21 U/L (15-37); SGPT/ALT 24 U/L (13-61)
[2021-10-26 14:02] LABS: BILIRUBIN,TOTAL 0.5 mg/dL (0.2-1); TOT PROT 8.1 g/dl (6.4-8.2)
[2021-10-26 14:03] LABS: ALK PHOS 114 U/L (45-117)
[2021-10-26 14:04] LABS: CREATININE 9.6 mg/dL (0.55-1.3)
[2021-10-26 14:08] LABS: INR 1.02 (0.83-1.09); PROTHROMBIN TIME (PATIENT) 11.7 SEC (9.7-13.0)
[2021-10-26] MEDS ORDERED: hydrALAZINE HCL 20 MG/ML VIAL IVPUSH ONE (14:15)
[2021-10-26] MEDS ORDERED: hydrALAZINE HCL 20 MG/ML VIAL ONE (14:34)
[2021-10-26] MEDS ORDERED: VANCOMYCIN 1 GRAM (PRE-DOCKED) 1,000 MG/250 ML BAG IVPB ONE (15:21)
[2021-10-26] MEDS ORDERED: CEFEPIME 1 GM/100 ML BAG IVPB ONE (15:24)
[2021-10-26] MEDS ORDERED: SIMETHICONE 80 MG TAB.CHEW (FP) PO PRN (16:44)
[2021-10-26] MEDS: hydrALAZINE HCL 50 MG TABLET (FP) PO SCH (19:30)
[2021-10-26] MEDS ORDERED: hydrALAZINE HCL 50 MG TABLET (FP) ONE (19:31)
[2021-10-26] MEDS ORDERED: ACETAMINOPHEN 325 MG TABLET (FP) ONE (21:18)
[2021-10-26] MEDS: ACETAMINOPHEN 325 MG TABLET (FP) PO PRN (21:50)
[2021-10-26] MEDS ORDERED: AMITRIPTYLINE HCL 50 MG TABLET PO SCH (22:00)
[2021-10-26] MEDS ORDERED: AMITRIPTYLINE HCL 25 MG TABLET PO SCH (22:31)
[2021-10-26] MEDS ORDERED: ATORVASTATIN CA 40 MG TABLET (FP) ONE (22:59)
[2021-10-26] MEDS ORDERED: METOPROLOL TARTRATE 50 MG TABLET (FP) ONE (22:59)
[2021-10-26] MEDS: ATORVASTATIN CA 40 MG TABLET (FP) PO SCH (23:00)
[2021-10-26] MEDS: METOPROLOL TARTRATE 50 MG TABLET (FP) PO SCH (23:00)
[2021-10-26] MEDS ORDERED: AMITRIPTYLINE HCL 50 MG TABLET PO ONE (23:45)
[2021-10-27] MEDS ORDERED: amLODIPine BESYLATE 5 MG TABLET (FP) PO ONE (00:49)
[2021-10-27 02:23] VITALS: BMI 21.9
[2021-10-27] MEDS: METOCLOPRAMIDE HCL 10 MG TABLET (FP) PO SCH ×3 (06:28→16:43)
[2021-10-27] MEDS: hydrALAZINE HCL 50 MG TABLET (FP) PO SCH ×3 (08:20→16:43)
[2021-10-27] MEDS: PANTOPRAZOLE 40 MG TABLET PO SCH (09:20)
[2021-10-27] MEDS: METOPROLOL TARTRATE 50 MG TABLET (FP) PO SCH ×2 (09:20→21:49)
[2021-10-27] MEDS: ASPIRIN COATED 81 MG TABLET.EC PO SCH (09:20)
[2021-10-27] MEDS: LOSARTAN POTASSIUM 50 MG TABLET PO SCH (09:20)
[2021-10-27] MEDS ORDERED: SODIUM CHLORIDE 250 ML IV PRN (10:04)
[2021-10-27 10:59] LABS: CALCIUM 8.3 mg/dL (8.5-10.1); CHLORIDE 95 mmol/L (98-107); SODIUM 139 mmol/L (136-145)
[2021-10-27 11:00] LABS: ANION GAP 10 MMOL/L (8-16); BLOOD UREA NITROGEN 66.1 mg/dL (7-18); CO2 34 mmol/L (21-32); GLUCOSE,RANDOM 120 mg/dL (74-106)
[2021-10-27 11:09] LABS: CREATININE 9.4 mg/dL (0.55-1.3)
[2021-10-27] MEDS: ATORVASTATIN CA 40 MG TABLET (FP) PO SCH (21:49)
[2021-10-27] MEDS: AMITRIPTYLINE HCL 25 MG TABLET PO SCH (21:49)
[2021-10-27] MEDS: ACETAMINOPHEN 325 MG TABLET (FP) PO PRN (21:49)
[2021-10-28] MEDS: METOCLOPRAMIDE HCL 10 MG TABLET (FP) PO SCH ×3 (06:32→17:48)
[2021-10-28] MEDS: hydrALAZINE HCL 50 MG TABLET (FP) PO SCH ×3 (08:48→17:35)
[2021-10-28] MEDS: ASPIRIN COATED 81 MG TABLET.EC PO SCH (10:49)
[2021-10-28] MEDS: PANTOPRAZOLE 40 MG TABLET PO SCH (10:49)
[2021-10-28] MEDS: METOPROLOL TARTRATE 50 MG TABLET (FP) PO SCH ×2 (10:49→22:01)
[2021-10-28] MEDS: LOSARTAN POTASSIUM 50 MG TABLET PO SCH (10:51)
[2021-10-28] MEDS: ATORVASTATIN CA 40 MG TABLET (FP) PO SCH (22:01)
[2021-10-28] MEDS: AMITRIPTYLINE HCL 25 MG TABLET PO SCH (22:01)
[2021-10-29] MEDS: METOCLOPRAMIDE HCL 10 MG TABLET (FP) PO SCH ×2 (06:37→12:38)
[2021-10-29] MEDS ORDERED: HEPARIN NA (PORCINE) 5,000 UNITS/ML 1ML VIAL IVPUSH ONE (07:35)
[2021-10-29] MEDS ORDERED: SODIUM CHLORIDE 250 ML IV PRN (07:35)
[2021-10-29 09:52] LABS: HEMATOCRIT 34.3 % (35.4-49); HEMOGLOBIN 11.3 GM/dL (11.7-16.9); MCH 29.7 pg (25.7-33.7); MCHC 32.9 g/dl (32.0-35.9); MEAN CELL VOLUME 90.4 fl (80-96); MEAN PLT VOLUME 8.4 fl (7.5-11.1); PLATELET COUNT 198 10^3/uL (134-434); RBC 3.79 M/mm3 (4.00-5.60); RDW 18.4 % (11.9-15.9); WHITE BLOOD COUNT 7.7 K/mm3 (4.0-10.0)
[2021-10-29 10:22] LABS: CHLORIDE 98 mmol/L (98-107); SODIUM 138 mmol/L (136-145)
[2021-10-29 10:23] LABS: CALCIUM 7.3 mg/dL (8.5-10.1)
[2021-10-29 10:24] LABS: ANION GAP 9 MMOL/L (8-16); BLOOD UREA NITROGEN 66.2 mg/dL (7-18); CO2 31 mmol/L (21-32)
[2021-10-29 10:27] LABS: SGOT/AST 12 U/L (15-37); SGPT/ALT 16 U/L (13-61)
[2021-10-29 10:29] LABS: BILIRUBIN,TOTAL 0.3 mg/dL (0.2-1)
[2021-10-29 10:38] LABS: ALBUMIN 2.9 g/dl (3.4-5.0); ALK PHOS 80 U/L (45-117); CREATININE 8.9 mg/dL (0.55-1.3); GLUCOSE,RANDOM 106 mg/dL (74-106); TOT PROT 5.7 g/dl (6.4-8.2)
[2021-10-29] MEDS: PANTOPRAZOLE 40 MG TABLET PO SCH (12:38)
[2021-10-29] MEDS: METOPROLOL TARTRATE 50 MG TABLET (FP) PO SCH (12:38)
[2021-10-29] MEDS: LOSARTAN POTASSIUM 50 MG TABLET PO SCH (12:38)
[2021-10-29] MEDS: ASPIRIN COATED 81 MG TABLET.EC PO SCH (12:38)
[2021-10-29] MEDS: hydrALAZINE HCL 50 MG TABLET (FP) PO SCH ×2 (12:38→12:39)
[2021-10-29 12:47] VITALS: BP 138/83; PULSE 75; TEMP 98
== END 2021-10-29 15:23 | disposition home or self-care (01) ==
LOC: JER 12:09 → JERBED 15:51 → INTOOBSV 15:51 → J6S 10-27 00:02
PROVIDERS: ADMIT Internal Medicine; ATTEND Nurse Practitioner Acute Care
PROC: 3E033NZ Introduction of Analgesics, Hypnotics, Sedatives into Peripheral Vein, Percutaneous Approach (ICD-10-PCS; principal; 2021-10-26)
PROC: 3E033GC Introduction of Other Therapeutic Substance into Peripheral Vein, Percutaneous Approach (ICD-10-PCS; 2021-10-26)
DX: R10.13 Epigastric pain (principal); R11.2 Nausea with vomiting, unspecified; E11.22 Type 2 diabetes mellitus with diabetic chronic kidney disease; E11.65 Type 2 diabetes mellitus with hyperglycemia; I13.2 Hypertensive heart and chronic kidney disease with heart failure and with stage 5 chronic kidney disease, or end stage renal disease; I16.9 Hypertensive crisis, unspecified; I50.32 Chronic diastolic (congestive) heart failure; N18.6 End stage renal disease; N17.9 Acute kidney failure, unspecified; Z99.2 Dependence on renal dialysis; Z79.4 Long term (current) use of insulin; I25.10 Atherosclerotic heart disease of native coronary artery without angina pectoris; E78.5 Hyperlipidemia, unspecified; D64.89 Other specified anemias; E87.6 Hypokalemia; I45.81 Long QT syndrome; K22.6 Gastro-esophageal laceration-hemorrhage syndrome; N40.0 Benign prostatic hyperplasia without lower urinary tract symptoms; R80.9 Proteinuria, unspecified; K31.84 Gastroparesis; Z79.82 Long term (current) use of aspirin; Z86.711 Personal history of pulmonary embolism; Z86.718 Personal history of other venous thrombosis and embolism; Z89.422 Acquired absence of other left toe(s); Z89.421 Acquired absence of other right toe(s)
CPT/HCPCS: 36415; 71045-TC-FY; 80048; 80053; 82962; 83690; 83735; 84100; 84484; 85025; 85027; 85610; 85730; 86803; 86850; 86900; 86901; 87340; 93005; 93010; 96374; 96375; 96376; 99285-25; C9803-CS; G0378; U0003; U0005

== ENCOUNTER 2021-12-01 13:56 | Inpatient (IN) | payer OTHER ==
[2021-12-01] MEDS ORDERED: ACETAMINOPHEN 1000 MG/100 ML BAG IVPB ONE (14:52)
[2021-12-01] MEDS ORDERED: ONDANSETRON 4 MG/2 ML VIAL IVPUSH ONE ×2 (14:52→19:31)
[2021-12-01] MEDS ORDERED: LACTATED RINGERS SOLUTION 1000 ML INFUS.BAG IV ONE (14:53)
[2021-12-01] MEDS ORDERED: ONDANSETRON 4 MG/2 ML VIAL ONE ×2 (14:57→19:45)
[2021-12-01] MEDS ORDERED: ACETAMINOPHEN INJECTION 100 ML IVPB ONE (14:57)
[2021-12-01 15:35] LABS: BASO % 0.8 % (0-2.0); HEMATOCRIT 42.9 % (35.4-49); HEMOGLOBIN 13.9 GM/dL (11.7-16.9); LYMPH % 8.4 % (8-40); MCHC 32.5 g/dl (32.0-35.9); MEAN CELL VOLUME 92.5 fl (80-96); MEAN PLT VOLUME 8.4 fl (7.5-11.1); MONO % 3.6 % (3.8-10.2); NEUT % 87.2 % (42.8-82.8); PLATELET COUNT 301 10^3/uL (134-434); RBC 4.64 M/mm3 (4.00-5.60); RDW 19.5 % (11.9-15.9); WHITE BLOOD COUNT 11.4 K/mm3 (4.0-10.0)
[2021-12-01 15:36] LABS: VENOUS BASE EXCESS 2.7 mmol/L (-2-2); VENOUS PCO2 44.3 mmHg (38-52); VENOUS PH 7.415 (7.310-7.410)
[2021-12-01 15:41] LABS: PROTHROMBIN TIME (PATIENT) 11.5 SEC (9.7-13.0)
[2021-12-01 15:43] LABS: ACTIVATED PTT 33.1 SECONDS (25.2-36.5)
[2021-12-01 15:55] LABS: CHLORIDE 105 mmol/L (98-107); SODIUM 147 mmol/L (136-145)
[2021-12-01 15:57] LABS: ALBUMIN 4.1 g/dl (3.4-5.0); ANION GAP 15 MMOL/L (8-16); CO2 28 mmol/L (21-32); GLUCOSE,RANDOM 153 mg/dL (74-106); LIPASE 138 U/L (73-393); MAGNESIUM 2.6 mg/dL (1.8-2.4)
[2021-12-01 15:58] LABS: BLOOD UREA NITROGEN 55.1 mg/dL (7-18)
[2021-12-01 16:00] LABS: SGOT/AST 27 U/L (15-37); SGPT/ALT 20 U/L (13-61)
[2021-12-01 16:02] LABS: BILIRUBIN,TOTAL 0.6 mg/dL (0.2-1); TOT PROT 8.3 g/dl (6.4-8.2)
[2021-12-01 16:03] LABS: ALK PHOS 104 U/L (45-117); CREATININE 7.9 mg/dL (0.55-1.3)
[2021-12-01] MEDS ORDERED: morphine SULFATE 4 MG/ML VIAL IVPUSH ONE (17:18)
[2021-12-01] MEDS ORDERED: morphine SULFATE 4 MG/ML VIAL ONE ×2 (17:23→17:28)
[2021-12-01] MEDS ORDERED: HEPARIN NA (PORCINE) 5,000 UNITS/ML 1ML VIAL ONE (21:59)
[2021-12-01] MEDS ORDERED: HEPARIN NA (PORCINE) 5,000 UNITS/ML 1ML VIAL SQ SCH (22:00)
[2021-12-02] MEDS: TRIMETHOBENZAMIDE HCL 200MG/2ML INJ IM PRN ×2 (02:51→18:05)
[2021-12-02] MEDS ORDERED: ACETAMINOPHEN 1000 MG/100 ML BAG IVPB ONE (03:28)
[2021-12-02] MEDS ORDERED: hydrALAZINE HCL 20 MG/ML VIAL IVPUSH ONE (03:30)
[2021-12-02] MEDS ORDERED: hydrALAZINE HCL 20 MG/ML VIAL IVPB ONE (04:47)
[2021-12-02] MEDS ORDERED: LACTATED RINGERS SOLUTION 1,000 ML/1,000 ML INFUS.BAG IV SCH (06:15)
[2021-12-02] MEDS ORDERED: SODIUM CHLORIDE 250 ML IV PRN (06:56)
[2021-12-02 09:01] LABS: HEMATOCRIT 40.5 % (35.4-49); HEMOGLOBIN 13.1 GM/dL (11.7-16.9); MCH 30.1 pg (25.7-33.7); MCHC 32.4 g/dl (32.0-35.9); MEAN PLT VOLUME 8.3 fl (7.5-11.1); PLATELET COUNT 266 10^3/uL (134-434); RBC 4.35 M/mm3 (4.00-5.60); WHITE BLOOD COUNT 12.2 K/mm3 (4.0-10.0)
[2021-12-02 09:19] LABS: CHLORIDE 107 mmol/L (98-107); SODIUM 148 mmol/L (136-145)
[2021-12-02 09:22] LABS: ANION GAP 13 MMOL/L (8-16); BLOOD UREA NITROGEN 61.2 mg/dL (7-18); CALCIUM 8.5 mg/dL (8.5-10.1); CO2 28 mmol/L (21-32); GLUCOSE,RANDOM 107 mg/dL (74-106)
[2021-12-02 09:23] LABS: ALBUMIN 3.7 g/dl (3.4-5.0); MAGNESIUM 2.3 mg/dL (1.8-2.4)
[2021-12-02 09:24] LABS: SGOT/AST 14 U/L (15-37); SGPT/ALT 16 U/L (13-61)
[2021-12-02 09:26] LABS: PHOSPHOROUS 5.4 mg/dL (2.5-4.9)
[2021-12-02 09:27] LABS: BILIRUBIN,TOTAL 0.8 mg/dL (0.2-1)
[2021-12-02 09:28] LABS: ALK PHOS 100 U/L (45-117)
[2021-12-02] MEDS: PANTOPRAZOLE SODIUM 40 MG VIAL IVPUSH SCH (10:07)
[2021-12-02] MEDS: LOSARTAN POTASSIUM 50 MG TABLET PO SCH (13:19)
[2021-12-02] MEDS: METOPROLOL TARTRATE 50 MG TABLET (FP) PO SCH ×2 (13:19→21:03)
[2021-12-02] MEDS: hydrALAZINE HCL 50 MG TABLET (FP) PO SCH ×2 (13:19→21:03)
[2021-12-02] MEDS: HEPARIN NA (PORCINE) 5,000 UNITS/ML 1ML VIAL SQ SCH (21:03)
[2021-12-03] MEDS: hydrALAZINE HCL 50 MG TABLET (FP) PO SCH ×3 (05:41→21:34)
[2021-12-03] MEDS: HEPARIN NA (PORCINE) 5,000 UNITS/ML 1ML VIAL SQ SCH ×2 (10:18→21:33)
[2021-12-03] MEDS: PANTOPRAZOLE SODIUM 40 MG VIAL IVPUSH SCH (10:18)
[2021-12-03] MEDS: oxyCODONE HCL 5 MG TABLET PO PRN (11:57)
[2021-12-03 12:05] LABS: BASO % 0.4 % (0-2.0); EOS % 0.6 % (0-4.5); HEMATOCRIT 42.4 % (35.4-49); HEMOGLOBIN 13.8 GM/dL (11.7-16.9); LYMPH % 21.8 % (8-40); MCHC 32.6 g/dl (32.0-35.9); MEAN PLT VOLUME 7.6 fl (7.5-11.1); MONO % 7.6 % (3.8-10.2); NEUT % 69.6 % (42.8-82.8); PLATELET COUNT 240 10^3/uL (134-434); RBC 4.61 M/mm3 (4.00-5.60); RDW 19.3 % (11.9-15.9); WHITE BLOOD COUNT 7.8 K/mm3 (4.0-10.0)
[2021-12-03] MEDS: LOSARTAN POTASSIUM 50 MG TABLET PO SCH (12:06)
[2021-12-03] MEDS: METOPROLOL TARTRATE 50 MG TABLET (FP) PO SCH ×2 (12:06→21:34)
[2021-12-03 12:31] LABS: CALCIUM 8.9 mg/dL (8.5-10.1)
[2021-12-03 12:32] LABS: ALBUMIN 3.6 g/dl (3.4-5.0); MAGNESIUM 2.3 mg/dL (1.8-2.4)
[2021-12-03 12:35] LABS: CREATININE 6.5 mg/dL (0.55-1.3)
[2021-12-03 12:36] LABS: BILIRUBIN,TOTAL 0.5 mg/dL (0.2-1); TOT PROT 7.2 g/dl (6.4-8.2)
[2021-12-03 12:38] LABS: BLOOD UREA NITROGEN 34.4 mg/dL (7-18)
[2021-12-03] MEDS ORDERED: SODIUM CHLORIDE 250 ML IV PRN (15:19)
[2021-12-03] MEDS: POLYETHYLENE GLYCOL (HEALTHYLAX) 3350 17 GM PACKET PO SCH (16:11)
[2021-12-03] MEDS: INSULIN SLIDING SCALE (NOVOLOG) 1 VIAL SQ SCH (21:53)
[2021-12-04] MEDS: oxyCODONE HCL 5 MG TABLET PO PRN ×2 (02:01→18:09)
[2021-12-04] MEDS: INSULIN SLIDING SCALE (NOVOLOG) 1 VIAL SQ SCH ×4 (06:02→21:24)
[2021-12-04] MEDS: hydrALAZINE HCL 50 MG TABLET (FP) PO SCH ×3 (06:03→21:24)
[2021-12-04 08:43] LABS: BASO % 0.4 % (0-2.0); EOS % 0.5 % (0-4.5); HEMATOCRIT 41.3 % (35.4-49); HEMOGLOBIN 13.4 GM/dL (11.7-16.9); MCH 29.8 pg (25.7-33.7); MCHC 32.4 g/dl (32.0-35.9); MEAN CELL VOLUME 92.2 fl (80-96); MEAN PLT VOLUME 7.9 fl (7.5-11.1); MONO % 7.7 % (3.8-10.2); NEUT % 56.4 % (42.8-82.8); PLATELET COUNT 250 10^3/uL (134-434); RBC 4.48 M/mm3 (4.00-5.60); WHITE BLOOD COUNT 7.6 K/mm3 (4.0-10.0)
[2021-12-04 09:00] LABS: CHLORIDE 98 mmol/L (98-107); SODIUM 140 mmol/L (136-145)
[2021-12-04 09:02] LABS: ALBUMIN 3.3 g/dl (3.4-5.0); ANION GAP 10 MMOL/L (8-16); BLOOD UREA NITROGEN 44.8 mg/dL (7-18); CALCIUM 8.3 mg/dL (8.5-10.1); CO2 31 mmol/L (21-32); GLUCOSE,RANDOM 112 mg/dL (74-106); MAGNESIUM 2.1 mg/dL (1.8-2.4)
[2021-12-04 09:05] LABS: SGPT/ALT 15 U/L (13-61)
[2021-12-04 09:06] LABS: SGOT/AST 17 U/L (15-37)
[2021-12-04 09:07] LABS: BILIRUBIN,TOTAL 0.4 mg/dL (0.2-1); TOT PROT 6.5 g/dl (6.4-8.2)
[2021-12-04 09:08] LABS: ALK PHOS 85 U/L (45-117)
[2021-12-04 09:10] LABS: CREATININE 7.8 mg/dL (0.55-1.3)
[2021-12-04] MEDS: HEPARIN NA (PORCINE) 5,000 UNITS/ML 1ML VIAL SQ SCH ×2 (11:24→21:23)
[2021-12-04] MEDS: PANTOPRAZOLE SODIUM 40 MG VIAL IVPUSH SCH (11:24)
[2021-12-04] MEDS: POLYETHYLENE GLYCOL (HEALTHYLAX) 3350 17 GM PACKET PO SCH (11:24)
[2021-12-04] MEDS: METOPROLOL TARTRATE 50 MG TABLET (FP) PO SCH ×2 (13:12→21:24)
[2021-12-04] MEDS: LOSARTAN POTASSIUM 50 MG TABLET PO SCH (13:12)
[2021-12-04] MEDS: PANTOPRAZOLE 40 MG TABLET PO SCH (18:39)
[2021-12-05] MEDS: INSULIN SLIDING SCALE (NOVOLOG) 1 VIAL SQ SCH ×4 (06:49→22:28)
[2021-12-05] MEDS: hydrALAZINE HCL 50 MG TABLET (FP) PO SCH ×3 (06:49→22:22)
[2021-12-05 08:26] LABS: BASO % 0.4 % (0-2.0); EOS % 1.1 % (0-4.5); HEMATOCRIT 39.2 % (35.4-49); HEMOGLOBIN 12.6 GM/dL (11.7-16.9); LYMPH % 40.8 % (8-40); MCHC 32.2 g/dl (32.0-35.9); MEAN CELL VOLUME 93.3 fl (80-96); MEAN PLT VOLUME 8.2 fl (7.5-11.1); MONO % 7.8 % (3.8-10.2); NEUT % 49.9 % (42.8-82.8); PLATELET COUNT 209 10^3/uL (134-434); RDW 18.6 % (11.9-15.9); WHITE BLOOD COUNT 7.3 K/mm3 (4.0-10.0)
[2021-12-05 08:51] LABS: PHOSPHOROUS 5.4 mg/dL (2.5-4.9)
[2021-12-05] MEDS: oxyCODONE HCL 5 MG TABLET PO PRN ×2 (11:14→22:25)
[2021-12-05] MEDS: POLYETHYLENE GLYCOL (HEALTHYLAX) 3350 17 GM PACKET PO SCH (11:14)
[2021-12-05] MEDS: VITAMIN B COMP W-C 1 EA TABLET (NEPHRO-VITE) PO SCH (11:15)
[2021-12-05] MEDS: PANTOPRAZOLE 40 MG TABLET PO SCH (11:15)
[2021-12-05] MEDS: LOSARTAN POTASSIUM 50 MG TABLET PO SCH (11:16)
[2021-12-05] MEDS: HEPARIN NA (PORCINE) 5,000 UNITS/ML 1ML VIAL SQ SCH ×2 (11:16→22:21)
[2021-12-05] MEDS: METOPROLOL TARTRATE 50 MG TABLET (FP) PO SCH ×2 (11:17→22:23)
[2021-12-05] MEDS: FINASTERIDE 5 MG TABLET (FP) PO SCH (15:08)
[2021-12-05 17:14] LABS: EPI CELLS 4 /uL (0-25.1); HYALINE CASTS 3 /uL (0-3.1); PH,URINE 5.5 (5.0-8.0); URINE APPEARANCE CLEAR; URINE BACTERIA 1 /uL (0-1359); URINE BILIRUBIN NEGATIVE (NEGATIVE); URINE COLOR YELLOW; URINE GLUCOSE (UA) NEGATIVE (NEGATIVE); URINE KETONE TRACE (NEGATIVE); URINE LEUK ESTERASE NEGATIVE (NEGATIVE); URINE NITRITE NEGATIVE (NEGATIVE); URINE PROTEIN 3+ (NEGATIVE); URINE RBC 15 /uL (0-23.9); URINE WBC 17 /uL (0-25.8)
[2021-12-06] MEDS: hydrALAZINE HCL 50 MG TABLET (FP) PO SCH ×2 (06:22→14:00)
[2021-12-06] MEDS: INSULIN SLIDING SCALE (NOVOLOG) 1 VIAL SQ SCH ×3 (06:26→16:42)
[2021-12-06] MEDS ORDERED: TAMSULOSIN HCL 0.4 MG CAP PO SCH (08:30)
[2021-12-06] MEDS: HEPARIN NA (PORCINE) 5,000 UNITS/ML 1ML VIAL SQ SCH (10:50)
[2021-12-06] MEDS: METOPROLOL TARTRATE 50 MG TABLET (FP) PO SCH (10:51)
[2021-12-06] MEDS: LOSARTAN POTASSIUM 50 MG TABLET PO SCH (10:51)
[2021-12-06] MEDS: PANTOPRAZOLE 40 MG TABLET PO SCH (10:51)
[2021-12-06] MEDS: POLYETHYLENE GLYCOL (HEALTHYLAX) 3350 17 GM PACKET PO SCH (10:51)
[2021-12-06] MEDS: FINASTERIDE 5 MG TABLET (FP) PO SCH (10:51)
[2021-12-06] MEDS: VITAMIN B COMP W-C 1 EA TABLET (NEPHRO-VITE) PO SCH (10:52)
[2021-12-06 11:20] LABS: BASO % 0.4 % (0-2.0); EOS % 1.4 % (0-4.5); HEMATOCRIT 38.1 % (35.4-49); HEMOGLOBIN 12.3 GM/dL (11.7-16.9); MCH 30.1 pg (25.7-33.7); MCHC 32.3 g/dl (32.0-35.9); MEAN CELL VOLUME 93.3 fl (80-96); MEAN PLT VOLUME 8.3 fl (7.5-11.1); MONO % 8.2 % (3.8-10.2); PLATELET COUNT 194 10^3/uL (134-434); RBC 4.08 M/mm3 (4.00-5.60); RDW 19.1 % (11.9-15.9); WHITE BLOOD COUNT 6.2 K/mm3 (4.0-10.0)
[2021-12-06 11:41] VITALS: RESP 18
[2021-12-06 11:44] LABS: CHLORIDE 100 mmol/L (98-107); SODIUM 138 mmol/L (136-145)
[2021-12-06 11:49] LABS: ALBUMIN 3.3 g/dl (3.4-5.0); ANION GAP 10 MMOL/L (8-16); CO2 28 mmol/L (21-32); GLUCOSE,RANDOM 130 mg/dL (74-106)
[2021-12-06 11:50] LABS: BLOOD UREA NITROGEN 54.3 mg/dL (7-18); MAGNESIUM 2.4 mg/dL (1.8-2.4)
[2021-12-06 11:53] LABS: SGOT/AST 19 U/L (15-37); SGPT/ALT 13 U/L (13-61)
[2021-12-06 11:54] LABS: BILIRUBIN,TOTAL 0.4 mg/dL (0.2-1); TOT PROT 6.3 g/dl (6.4-8.2)
[2021-12-06 11:55] LABS: ALK PHOS 78 U/L (45-117)
[2021-12-06 11:56] LABS: CREATININE 8.4 mg/dL (0.55-1.3)
[2021-12-06 15:40] VITALS: BMI 21.6
[2021-12-06 18:15] VITALS: TEMP 98.4
[2021-12-06 19:52] VITALS: BP 128/75; PULSE 60
== END 2021-12-06 20:56 | disposition home or self-care (01) | DRG 73 ==
LOC: JER 13:56 → JERBED 19:35 → J5S 12-02 01:56
PROVIDERS: ADMIT Internal Medicine; ATTEND Nurse Practitioner Family
PROC: 5A1D70Z Performance of Urinary Filtration, Intermittent, Less than 6 Hours Per Day (ICD-10-PCS; principal; 2021-12-06)
DX: E11.43 Type 2 diabetes mellitus with diabetic autonomic (poly)neuropathy (principal); U07.1 COVID-19; N18.6 End stage renal disease; I13.2 Hypertensive heart and chronic kidney disease with heart failure and with stage 5 chronic kidney disease, or end stage renal disease; I50.32 Chronic diastolic (congestive) heart failure; K92.0 Hematemesis; Z99.2 Dependence on renal dialysis; E11.22 Type 2 diabetes mellitus with diabetic chronic kidney disease; D64.9 Anemia, unspecified; E78.5 Hyperlipidemia, unspecified; D72.829 Elevated white blood cell count, unspecified; R33.9 Retention of urine, unspecified; N40.1 Benign prostatic hyperplasia with lower urinary tract symptoms; K59.00 Constipation, unspecified; K31.84 Gastroparesis
CPT/HCPCS: 36415; 71045-TC-FY; 74176-TC; 76775-TC; 76856-TC; 80053; 81003; 82803; 82962; 83036; 83690; 83735; 84100; 84484; 85025; 85027; 85379; 85610; 85730; 86140; 86803; 87086; 87340; 93005; 93010; 99285-25; C9803-CS; J1644; U0003; U0005

== ENCOUNTER 2021-12-31 13:13 | Inpatient (IN) | payer OTHER ==
[2021-12-31 13:53] VITALS: BMI 21.2
[2021-12-31] MEDS ORDERED: ACETAMINOPHEN 1000 MG/100 ML BAG IVPB ONE (14:12)
[2021-12-31] MEDS ORDERED: SODIUM CHLORIDE 1,000 ML IV STA (14:12)
[2021-12-31] MEDS ORDERED: FAMOTIDINE 20 MG/50 ML IVPB 20 MG/50 ML MG IVPB ONE ×2 (14:12→14:21)
[2021-12-31] MEDS ORDERED: ONDANSETRON 4 MG/2 ML VIAL IVPUSH ONE (14:12)
[2021-12-31] MEDS ORDERED: ACETAMINOPHEN INJECTION 100 ML IVPB ONE (14:21)
[2021-12-31] MEDS ORDERED: ONDANSETRON 4 MG/2 ML VIAL ONE (14:21)
[2021-12-31 15:00] LABS: BASO % 0.1 % (0-2.0); HEMATOCRIT 44.8 % (35.4-49); HEMOGLOBIN 14.3 GM/dL (11.7-16.9); LYMPH % 10.6 % (8-40); MCH 30.5 pg (25.7-33.7); MEAN CELL VOLUME 95.5 fl (80-96); MEAN PLT VOLUME 8.4 fl (7.5-11.1); MONO % 3.5 % (3.8-10.2); NEUT % 85.8 % (42.8-82.8); PLATELET COUNT 250 10^3/uL (134-434); RBC 4.69 M/mm3 (4.00-5.60); RDW 17.6 % (11.9-15.9); WHITE BLOOD COUNT 15.7 K/mm3 (4.0-10.0)
[2021-12-31 15:10] LABS: ACTIVATED PTT 35.2 SECONDS (25.2-36.5); INR 1.03 (0.83-1.09); PROTHROMBIN TIME (PATIENT) 11.9 SEC (9.7-13.0)
[2021-12-31 15:18] LABS: CHLORIDE 101 mmol/L (98-107); SODIUM 144 mmol/L (136-145)
[2021-12-31 15:21] LABS: ALBUMIN 4.1 g/dl (3.4-5.0); CALCIUM 9.8 mg/dL (8.5-10.1); CO2 33 mmol/L (21-32); GLUCOSE,RANDOM 168 mg/dL (74-106); LIPASE 341 U/L (73-393); MAGNESIUM 2.7 mg/dL (1.8-2.4)
[2021-12-31 15:24] LABS: PHOSPHOROUS 5.1 mg/dL (2.5-4.9); SGOT/AST 43 U/L (15-37); SGPT/ALT 19 U/L (13-61)
[2021-12-31 15:25] LABS: BILIRUBIN,TOTAL 0.7 mg/dL (0.2-1); TOT PROT 8.5 g/dl (6.4-8.2)
[2021-12-31 15:27] LABS: ALK PHOS 115 U/L (45-117)
[2021-12-31 15:31] LABS: ANION GAP 10 MMOL/L (8-16); CREATININE 7.9 mg/dL (0.55-1.3)
[2021-12-31] MEDS ORDERED: morphine CARPU-JECT 4 MG/1 ML DISP.SYRIN IVPUSH ONE (16:16)
[2021-12-31] MEDS ORDERED: morphine SULFATE 4 MG/ML VIAL ONE (16:19)
[2021-12-31] MEDS ORDERED: SODIUM CHLORIDE 250 ML IV PRN (17:19)
[2021-12-31] MEDS ORDERED: SODIUM CHLORIDE 0.45% 1,000 ML IV SCH (17:30)
[2021-12-31 19:04] LABS: CHLORIDE 106 mmol/L (98-107); SODIUM 148 mmol/L (136-145)
[2021-12-31 19:12] LABS: ALK PHOS 110 U/L (45-117)
[2021-12-31 19:25] LABS: ALBUMIN 4.1 g/dl (3.4-5.0); ANION GAP 11 MMOL/L (8-16); BILIRUBIN,TOTAL 0.4 mg/dL (0.2-1); BLOOD UREA NITROGEN 50.6 mg/dL (7-18); CALCIUM 9.5 mg/dL (8.5-10.1); CO2 31 mmol/L (21-32); CREATININE 7.9 mg/dL (0.55-1.3); GLUCOSE,RANDOM 140 mg/dL (74-106); SGOT/AST 15 U/L (15-37); SGPT/ALT 12 U/L (13-61); TOT PROT 7.4 g/dl (6.4-8.2)
[2021-12-31] MEDS ORDERED: PANTOPRAZOLE SODIUM 40 MG VIAL IVPUSH ONE (20:21)
[2021-12-31] MEDS ORDERED: PANTOPRAZOLE SODIUM 40 MG/100 ML BAG IVPB ONE (20:24)
[2022-01-01] MEDS: INSULIN SLIDING SCALE (NOVOLOG) 1 VIAL SQ SCH ×5 (00:28→21:20)
[2022-01-01] MEDS ORDERED: ACETAMINOPHEN 1000 MG/100 ML BAG IVPB ONE (05:07)
[2022-01-01] MEDS ORDERED: amLODIPine BESYLATE 5 MG TABLET (FP) PO ONE (05:13)
[2022-01-01] MEDS: HEPARIN NA (PORCINE) 5,000 UNITS/ML 1ML VIAL SQ SCH ×3 (05:45→21:20)
[2022-01-01] MEDS: TRIMETHOBENZAMIDE HCL 200MG/2ML INJ IM PRN ×2 (08:50→21:18)
[2022-01-01 09:26] LABS: BASO % 0.3 % (0-2.0); HEMATOCRIT 41.2 % (35.4-49); HEMOGLOBIN 13.7 GM/dL (11.7-16.9); MCH 31.8 pg (25.7-33.7); MCHC 33.2 g/dl (32.0-35.9); MEAN CELL VOLUME 95.5 fl (80-96); MEAN PLT VOLUME 8.1 fl (7.5-11.1); MONO % 4.4 % (3.8-10.2); NEUT % 84.3 % (42.8-82.8); PLATELET COUNT 242 10^3/uL (134-434); RBC 4.31 M/mm3 (4.00-5.60); RDW 17.3 % (11.9-15.9); WHITE BLOOD COUNT 14.3 K/mm3 (4.0-10.0)
[2022-01-01 09:45] LABS: CHLORIDE 106 mmol/L (98-107); SODIUM 145 mmol/L (136-145)
[2022-01-01 09:51] LABS: ALBUMIN 3.9 g/dl (3.4-5.0); ANION GAP 8 MMOL/L (8-16); CALCIUM 9.1 mg/dL (8.5-10.1); CO2 31 mmol/L (21-32)
[2022-01-01 09:52] LABS: BLOOD UREA NITROGEN 57.1 mg/dL (7-18); GLUCOSE,RANDOM 115 mg/dL (74-106); MAGNESIUM 2.5 mg/dL (1.8-2.4)
[2022-01-01 09:54] LABS: SGPT/ALT 14 U/L (13-61)
[2022-01-01 09:55] LABS: SGOT/AST 15 U/L (15-37); TOT PROT 7.3 g/dl (6.4-8.2)
[2022-01-01 09:56] LABS: BILIRUBIN,TOTAL 0.6 mg/dL (0.2-1)
[2022-01-01 09:57] LABS: ALK PHOS 114 U/L (45-117); CREATININE 8.4 mg/dL (0.55-1.3)
[2022-01-01] MEDS: PANTOPRAZOLE SODIUM 40 MG VIAL IVPUSH SCH ×2 (12:49→21:20)
[2022-01-01 16:16] LABS: EPI CELLS 7 /uL (0-25.1); HYALINE CASTS 2 /uL (0-3.1); URINE APPEARANCE CLEAR; URINE BACTERIA 4 /uL (0-1359); URINE BILIRUBIN NEGATIVE (NEGATIVE); URINE COLOR YELLOW; URINE GLUCOSE (UA) NEGATIVE (NEGATIVE); URINE KETONE TRACE (NEGATIVE); URINE LEUK ESTERASE NEGATIVE (NEGATIVE); URINE NITRITE NEGATIVE (NEGATIVE); URINE PROTEIN 3+ (NEGATIVE); URINE RBC 12 /uL (0-23.9); URINE UROBILINOGEN 0.2 mg/dL (0.2-1.0); URINE WBC 9 /uL (0-25.8)
[2022-01-01] MEDS ORDERED: ACETAMINOPHEN 1000 MG/100 ML BAG IVPB PRN (16:28)
[2022-01-01] MEDS ORDERED: METOCLOPRAMIDE HCL INJECTION 10 MG/2 ML VIAL IVPB SCH (16:30)
[2022-01-02 02:20] VITALS: BP 127/89; PULSE 87; RESP 18; TEMP 98.7
== END 2022-01-02 02:27 | disposition short-term general hospital (02) | DRG 919 ==
LOC: JER 13:13 → JERBED 17:31 → J5S 23:37
PROVIDERS: ADMIT Internal Medicine; ATTEND Internal Medicine
PROC: 5A1D70Z Performance of Urinary Filtration, Intermittent, Less than 6 Hours Per Day (ICD-10-PCS; principal; 2022-01-01)
DX: T85.9XXA Unspecified complication of internal prosthetic device, implant and graft, initial encounter (principal); N18.6 End stage renal disease; I13.2 Hypertensive heart and chronic kidney disease with heart failure and with stage 5 chronic kidney disease, or end stage renal disease; I50.32 Chronic diastolic (congestive) heart failure; E11.43 Type 2 diabetes mellitus with diabetic autonomic (poly)neuropathy; E11.22 Type 2 diabetes mellitus with diabetic chronic kidney disease; Z99.2 Dependence on renal dialysis; D64.9 Anemia, unspecified; E78.5 Hyperlipidemia, unspecified; K86.89 Other specified diseases of pancreas; K31.84 Gastroparesis; Z68.21 Body mass index [BMI] 21.0-21.9, adult; E87.5 Hyperkalemia; E86.0 Dehydration; Y83.9 Surgical procedure, unspecified as the cause of abnormal reaction of the patient, or of later complication, without mention of misadventure at the time of the procedure
CPT/HCPCS: 36415; 71045-TC-FY; 74176-TC; 80053; 81003; 82962; 83605; 83690; 83735; 84100; 84484; 85025; 85610; 85730; 86803; 87086; 87340; 93005; 93010; 99285-25; C9803-CS; J1644; U0003; U0005

== ENCOUNTER 2022-01-24 15:42 | Inpatient (IN) | payer OTHER ==
[2022-01-24] MEDS ORDERED: ACETAMINOPHEN 1000 MG/100 ML BAG IVPB ONE (16:29)
[2022-01-24] MEDS ORDERED: METOCLOPRAMIDE HCL INJECTION 10 MG/2 ML VIAL IVPUSH ONE (16:29)
[2022-01-24] MEDS ORDERED: ACETAMINOPHEN INJECTION 100 ML IVPB ONE (16:39)
[2022-01-24] MEDS ORDERED: METOCLOPRAMIDE HCL INJECTION 10 MG/2 ML VIAL ONE ×2 (16:39→20:03)
[2022-01-24] MEDS ORDERED: PANTOPRAZOLE SODIUM 40 MG VIAL IVPUSH ONE (17:09)
[2022-01-24 17:47] LABS: BASO % 0.4 % (0-2.0); EOS % 0.1 % (0-4.5); HEMATOCRIT 36.7 % (35.4-49); HEMOGLOBIN 12.2 GM/dL (11.7-16.9); LYMPH % 9.9 % (8-40); MCH 31.7 pg (25.7-33.7); MCHC 33.1 g/dl (32.0-35.9); MEAN CELL VOLUME 95.5 fl (80-96); MEAN PLT VOLUME 8.8 fl (7.5-11.1); MONO % 2.9 % (3.8-10.2); NEUT % 86.7 % (42.8-82.8); PLATELET COUNT 255 10^3/uL (134-434); RBC 3.84 M/mm3 (4.00-5.60); RDW 15.4 % (11.9-15.9); WHITE BLOOD COUNT 13.7 K/mm3 (4.0-10.0)
[2022-01-24] MEDS ORDERED: PANTOPRAZOLE SODIUM 80 MG in SODIUM CHLORIDE 100 ML IVPB SCH (18:00)
[2022-01-24 18:02] LABS: CHLORIDE 110 mmol/L (98-107); SODIUM 147 mmol/L (136-145)
[2022-01-24 18:04] LABS: BLOOD UREA NITROGEN 42.1 mg/dL (7-18); CALCIUM 9.1 mg/dL (8.5-10.1); GLUCOSE,RANDOM 139 mg/dL (74-106)
[2022-01-24 18:05] LABS: ALBUMIN 3.9 g/dl (3.4-5.0); ANION GAP 12 MMOL/L (8-16); CO2 26 mmol/L (21-32); LIPASE 120 U/L (73-393)
[2022-01-24 18:07] LABS: SGPT/ALT 19 U/L (13-61)
[2022-01-24 18:08] LABS: SGOT/AST 12 U/L (15-37)
[2022-01-24 18:09] LABS: BILIRUBIN,TOTAL 0.4 mg/dL (0.2-1); TOT PROT 7.4 g/dl (6.4-8.2)
[2022-01-24 18:10] LABS: ALK PHOS 98 U/L (45-117)
[2022-01-24 18:16] LABS: CREATININE 7.7 mg/dL (0.55-1.3)
[2022-01-24] MEDS: PANTOPRAZOLE SODIUM 160 MG in SODIUM CHLORIDE 290 ML IVPB SCH (20:02)
[2022-01-24] MEDS ORDERED: TRIMETHOBENZAMIDE HCL 200MG/2ML INJ IM PRN (23:47)
[2022-01-24] MEDS ORDERED: METOCLOPRAMIDE HCL INJECTION 10 MG/2 ML VIAL IVPUSH PRN (23:48)
[2022-01-24] MEDS ORDERED: hydrALAZINE HCL 20 MG/ML VIAL IVPUSH PRN (23:49)
[2022-01-24] MEDS ORDERED: ACETAMINOPHEN 1000 MG/100 ML BAG IVPB PRN (23:56)
[2022-01-25] MEDS ORDERED: ACETAMINOPHEN 1000 MG/100 ML BAG IVPB PRN
[2022-01-25 05:17] VITALS: BMI 21.1
[2022-01-25] MEDS: HEPARIN NA (PORCINE) 5,000 UNITS/ML 1ML VIAL SQ SCH ×3 (06:28→22:12)
[2022-01-25] MEDS: INSULIN SLIDING SCALE (NOVOLOG) 1 VIAL SQ SCH ×4 (06:28→22:12)
[2022-01-25] MEDS ORDERED: SODIUM CHLORIDE 250 ML IV PRN (07:08)
[2022-01-25 09:23] LABS: BASO % 0.2 % (0-2.0); EOS % 0.3 % (0-4.5); HEMATOCRIT 31.8 % (35.4-49); HEMOGLOBIN 10.6 GM/dL (11.7-16.9); LYMPH % 14.4 % (8-40); MCH 31.9 pg (25.7-33.7); MCHC 33.2 g/dl (32.0-35.9); MEAN CELL VOLUME 96.2 fl (80-96); MEAN PLT VOLUME 8.2 fl (7.5-11.1); MONO % 6.5 % (3.8-10.2); NEUT % 78.6 % (42.8-82.8); PLATELET COUNT 224 10^3/uL (134-434); RBC 3.31 M/mm3 (4.00-5.60); RDW 15.6 % (11.9-15.9); WHITE BLOOD COUNT 13.4 K/mm3 (4.0-10.0)
[2022-01-25] MEDS ORDERED: LABETALOL HCL 5 MG/1 ML (100MG/20 ML VIAL) IVPUSH ONE (09:26)
[2022-01-25] MEDS ORDERED: LABETALOL HCL 5 MG/1 ML (100MG/20 ML VIAL) IVPUSH PRN ×2 (09:28→10:50)
[2022-01-25 09:44] LABS: CHLORIDE 113 mmol/L (98-107); SODIUM 150 mmol/L (136-145)
[2022-01-25 09:57] LABS: ALBUMIN 3.2 g/dl (3.4-5.0); ANION GAP 8 MMOL/L (8-16); BLOOD UREA NITROGEN 45.5 mg/dL (7-18); CO2 29 mmol/L (21-32); GLUCOSE,RANDOM 116 mg/dL (74-106)
[2022-01-25 09:58] LABS: CALCIUM 8.4 mg/dL (8.5-10.1)
[2022-01-25 09:59] LABS: MAGNESIUM 2.1 mg/dL (1.8-2.4)
[2022-01-25 10:00] LABS: PHOSPHOROUS 4.4 mg/dL (2.5-4.9); SGOT/AST 7 U/L (15-37); SGPT/ALT 15 U/L (13-61)
[2022-01-25] MEDS ORDERED: PANTOPRAZOLE SODIUM 40 MG VIAL IVPUSH SCH (10:00)
[2022-01-25 10:01] LABS: BILIRUBIN,TOTAL 0.5 mg/dL (0.2-1)
[2022-01-25 10:03] LABS: ALK PHOS 81 U/L (45-117); CREATININE 7.8 mg/dL (0.55-1.3)
[2022-01-25] MEDS: PANTOPRAZOLE SODIUM 160 MG in SODIUM CHLORIDE 290 ML IVPB SCH (15:00)
[2022-01-26] MEDS: INSULIN SLIDING SCALE (NOVOLOG) 1 VIAL SQ SCH ×4 (06:11→21:46)
[2022-01-26] MEDS: HEPARIN NA (PORCINE) 5,000 UNITS/ML 1ML VIAL SQ SCH ×3 (06:11→21:47)
[2022-01-26 09:23] LABS: HEMATOCRIT 34.6 % (35.4-49); MCH 30.9 pg (25.7-33.7); MCHC 31.9 g/dl (32.0-35.9); MEAN CELL VOLUME 96.9 fl (80-96); MEAN PLT VOLUME 9.1 fl (7.5-11.1); PLATELET COUNT 238 10^3/uL (134-434); RBC 3.58 M/mm3 (4.00-5.60); RDW 15.2 % (11.9-15.9); WHITE BLOOD COUNT 9.8 K/mm3 (4.0-10.0)
[2022-01-26 09:46] LABS: BLOOD UREA NITROGEN 26.7 mg/dL (7-18)
[2022-01-26 09:51] LABS: CREATININE 5.7 mg/dL (0.55-1.3)
[2022-01-26 09:53] LABS: BILIRUBIN,TOTAL 0.5 mg/dL (0.2-1); TOT PROT 6.2 g/dl (6.4-8.2)
[2022-01-26] MEDS: PANTOPRAZOLE SODIUM 160 MG in SODIUM CHLORIDE 290 ML IVPB SCH (11:25)
[2022-01-26] MEDS ORDERED: SODIUM CHLORIDE 250 ML IV PRN (12:43)
[2022-01-26 22:57] LABS: EPI CELLS 7 /uL (0-25.1); HYALINE CASTS 1 /uL (0-3.1); PH,URINE 6.5 (5.0-8.0); URINE APPEARANCE CLEAR; URINE BACTERIA 5 /uL (0-1359); URINE BILIRUBIN NEGATIVE (NEGATIVE); URINE COLOR YELLOW; URINE GLUCOSE (UA) NEGATIVE (NEGATIVE); URINE KETONE NEGATIVE (NEGATIVE); URINE LEUK ESTERASE NEGATIVE (NEGATIVE); URINE NITRITE NEGATIVE (NEGATIVE); URINE PROTEIN 3+ (NEGATIVE); URINE RBC 6 /uL (0-23.9); URINE UROBILINOGEN 0.2 mg/dL (0.2-1.0); URINE WBC 7 /uL (0-25.8)
[2022-01-27] MEDS: PANTOPRAZOLE SODIUM 160 MG in SODIUM CHLORIDE 290 ML IVPB SCH (06:32)
[2022-01-27] MEDS: INSULIN SLIDING SCALE (NOVOLOG) 1 VIAL SQ SCH ×4 (06:32→21:37)
[2022-01-27] MEDS: HEPARIN NA (PORCINE) 5,000 UNITS/ML 1ML VIAL SQ SCH ×3 (06:34→21:31)
[2022-01-27 09:11] LABS: HEMATOCRIT 33.5 % (35.4-49); HEMOGLOBIN 11.1 GM/dL (11.7-16.9); MCH 31.5 pg (25.7-33.7); MCHC 33.1 g/dl (32.0-35.9); MEAN CELL VOLUME 95.4 fl (80-96); MEAN PLT VOLUME 8.3 fl (7.5-11.1); PLATELET COUNT 227 10^3/uL (134-434); RBC 3.51 M/mm3 (4.00-5.60); RDW 14.9 % (11.9-15.9); WHITE BLOOD COUNT 7.6 K/mm3 (4.0-10.0)
[2022-01-27 10:08] LABS: CALCIUM 8.3 mg/dL (8.5-10.1)
[2022-01-27 10:09] LABS: BLOOD UREA NITROGEN 37.5 mg/dL (7-18); MAGNESIUM 1.9 mg/dL (1.8-2.4)
[2022-01-27 10:12] LABS: CREATININE 6.5 mg/dL (0.55-1.3); PHOSPHOROUS 4.6 mg/dL (2.5-4.9)
[2022-01-27] MEDS ORDERED: SODIUM CHLORIDE 250 ML IV PRN (14:29)
[2022-01-28] MEDS: INSULIN SLIDING SCALE (NOVOLOG) 1 VIAL SQ SCH ×4 (06:44→21:46)
[2022-01-28] MEDS: HEPARIN NA (PORCINE) 5,000 UNITS/ML 1ML VIAL SQ SCH ×3 (06:44→21:46)
[2022-01-28 09:04] LABS: HEMATOCRIT 34.2 % (35.4-49); HEMOGLOBIN 11.3 GM/dL (11.7-16.9); MCH 31.5 pg (25.7-33.7); MEAN CELL VOLUME 95.5 fl (80-96); MEAN PLT VOLUME 8.2 fl (7.5-11.1); PLATELET COUNT 224 10^3/uL (134-434); RBC 3.59 M/mm3 (4.00-5.60); RDW 14.7 % (11.9-15.9); WHITE BLOOD COUNT 7.5 K/mm3 (4.0-10.0)
[2022-01-28] MEDS ORDERED: ACETAMINOPHEN 1000 MG/100 ML BAG IVPB PRN (11:42)
[2022-01-28] MEDS: oxyCODONE HCL 5 MG TABLET PO PRN (21:45)
[2022-01-29] MEDS: HEPARIN NA (PORCINE) 5,000 UNITS/ML 1ML VIAL SQ SCH ×3 (07:01→21:00)
[2022-01-29] MEDS: INSULIN SLIDING SCALE (NOVOLOG) 1 VIAL SQ SCH ×4 (07:01→21:00)
[2022-01-29 08:20] LABS: HEMOGLOBIN 11.1 GM/dL (11.7-16.9); MCH 31.2 pg (25.7-33.7); MCHC 32.6 g/dl (32.0-35.9); MEAN CELL VOLUME 95.6 fl (80-96); MEAN PLT VOLUME 8.4 fl (7.5-11.1); PLATELET COUNT 215 10^3/uL (134-434); RBC 3.56 M/mm3 (4.00-5.60); WHITE BLOOD COUNT 6.5 K/mm3 (4.0-10.0)
[2022-01-29 08:36] LABS: CALCIUM 8.3 mg/dL (8.5-10.1); MAGNESIUM 2.1 mg/dL (1.8-2.4)
[2022-01-29 08:39] LABS: PHOSPHOROUS 3.2 mg/dL (2.5-4.9)
[2022-01-29 08:40] LABS: BILIRUBIN,TOTAL 0.6 mg/dL (0.2-1); CREATININE 4.7 mg/dL (0.55-1.3)
[2022-01-29] MEDS: oxyCODONE HCL 5 MG TABLET PO PRN (14:20)
[2022-01-29 22:31] VITALS: RESP 20
[2022-01-30] MEDS: HEPARIN NA (PORCINE) 5,000 UNITS/ML 1ML VIAL SQ SCH (05:46)
[2022-01-30] MEDS: INSULIN SLIDING SCALE (NOVOLOG) 1 VIAL SQ SCH (06:00)
[2022-01-30 07:03] VITALS: BP 147/85; PULSE 77; TEMP 98.5
== END 2022-01-30 09:20 | disposition home or self-care (01) | DRG 73 ==
LOC: JER 15:42 → JERBED 19:40 → J5S 01-25 03:24 → OBSVTOIN 01-25 10:06 → J5S 01-29 19:09
PROVIDERS: ADMIT Internal Medicine; ATTEND Internal Medicine
PROC: 5A1D70Z Performance of Urinary Filtration, Intermittent, Less than 6 Hours Per Day (ICD-10-PCS; principal; 2022-01-28)
DX: E11.43 Type 2 diabetes mellitus with diabetic autonomic (poly)neuropathy (principal); N18.6 End stage renal disease; N17.9 Acute kidney failure, unspecified; I13.2 Hypertensive heart and chronic kidney disease with heart failure and with stage 5 chronic kidney disease, or end stage renal disease; I50.32 Chronic diastolic (congestive) heart failure; K31.84 Gastroparesis; Z99.2 Dependence on renal dialysis; E78.5 Hyperlipidemia, unspecified; R11.2 Nausea with vomiting, unspecified; R10.9 Unspecified abdominal pain; D72.829 Elevated white blood cell count, unspecified; I16.0 Hypertensive urgency; N40.0 Benign prostatic hyperplasia without lower urinary tract symptoms
CPT/HCPCS: 0241U-QW; 36415; 71045-TC-FY; 74176-TC; 80048; 80053; 81003; 82962; 83690; 83735; 84100; 84484; 85025; 85027; 93005; 93010; 99285-25; G0378; J1644

== ENCOUNTER 2022-02-06 13:09 | Inpatient (IN) | payer OTHER ==
[2022-02-06] MEDS ORDERED: SODIUM CHLORIDE 0.9% 500 ML INFUS.BAG IV ONE (13:43)
[2022-02-06] MEDS ORDERED: ACETAMINOPHEN 1000 MG/100 ML BAG IVPB ONE (13:43)
[2022-02-06] MEDS ORDERED: METOCLOPRAMIDE HCL INJECTION 10 MG/2 ML VIAL IVPUSH ONE (13:44)
[2022-02-06 13:51] VITALS: BMI 22.5
[2022-02-06] MEDS ORDERED: PANTOPRAZOLE SODIUM 40 MG VIAL IVPUSH ONE (14:02)
[2022-02-06] MEDS ORDERED: METOCLOPRAMIDE HCL INJECTION 10 MG/2 ML VIAL ONE (14:04)
[2022-02-06] MEDS ORDERED: ACETAMINOPHEN INJECTION 100 ML IVPB ONE (14:05)
[2022-02-06 14:20] LABS: BASO % 0.1 % (0-2.0); HEMATOCRIT 39.4 % (35.4-49); HEMOGLOBIN 12.9 GM/dL (11.7-16.9); LYMPH % 8.1 % (8-40); MCH 30.9 pg (25.7-33.7); MCHC 32.8 g/dl (32.0-35.9); MEAN CELL VOLUME 94.1 fl (80-96); MEAN PLT VOLUME 8.1 fl (7.5-11.1); MONO % 4.4 % (3.8-10.2); NEUT % 87.4 % (42.8-82.8); PLATELET COUNT 317 10^3/uL (134-434); RBC 4.19 M/mm3 (4.00-5.60); RDW 14.8 % (11.9-15.9); WHITE BLOOD COUNT 20.3 K/mm3 (4.0-10.0)
[2022-02-06] MEDS ORDERED: PANTOPRAZOLE SODIUM 40 MG VIAL ONE (14:22)
[2022-02-06 14:32] LABS: CHLORIDE 98 mmol/L (98-107); SODIUM 144 mmol/L (136-145)
[2022-02-06 14:36] LABS: ANION GAP 12 MMOL/L (8-16); BLOOD UREA NITROGEN 47.3 mg/dL (7-18); CO2 34 mmol/L (21-32); GLUCOSE,RANDOM 183 mg/dL (74-106); LIPASE 78 U/L (73-393)
[2022-02-06 14:37] LABS: SGPT/ALT 22 U/L (13-61)
[2022-02-06 14:38] LABS: SGOT/AST 11 U/L (15-37)
[2022-02-06 14:39] LABS: BILIRUBIN,TOTAL 0.4 mg/dL (0.2-1); TOT PROT 7.9 g/dl (6.4-8.2)
[2022-02-06 14:44] LABS: ALK PHOS 117 U/L (45-117); CALCIUM 9.9 mg/dL (8.5-10.1)
[2022-02-06 14:49] LABS: ANISOCYTOSIS 3+; MACROCYTOSIS 0
[2022-02-06 14:59] LABS: INR 1.09 (0.83-1.09); PROTHROMBIN TIME (PATIENT) 12.6 SEC (9.7-13.0)
[2022-02-06 15:02] LABS: ACTIVATED PTT 29.6 SECONDS (25.2-36.5)
[2022-02-06 15:18] LABS: MAGNESIUM 2.4 mg/dL (1.8-2.4)
[2022-02-06 15:21] LABS: PHOSPHOROUS 4.6 mg/dL (2.5-4.9)
[2022-02-06] MEDS ORDERED: morphine CARPU-JECT 4 MG/1 ML DISP.SYRIN IVPUSH ONE (16:39)
[2022-02-06] MEDS ORDERED: morphine SULFATE 4 MG/ML VIAL ONE (16:41)
[2022-02-06] MEDS ORDERED: KCL 10 MEQ IVPB 10 MEQ/100 ML INFUS.BAG IVPB ONE ×3 (16:56→19:43)
[2022-02-06] MEDS: KCL 10 MEQ IVPB 10 MEQ/100 ML INFUS.BAG IVPB SCH ×3 (17:00→20:04)
[2022-02-06] MEDS ORDERED: morphine CARPU-JECT 2 MG/1 ML DISP.SYRIN IVPUSH ONE (19:41)
[2022-02-06] MEDS ORDERED: hydrALAZINE HCL 20 MG/ML VIAL IVPUSH PRN (20:03)
[2022-02-06] MEDS ORDERED: hydrALAZINE HCL 20 MG/ML VIAL ONE (20:20)
[2022-02-06 21:45] LABS: BASO % 0.3 % (0-2.0); EOS % 0.1 % (0-4.5); HEMATOCRIT 34.7 % (35.4-49); HEMOGLOBIN 11.2 GM/dL (11.7-16.9); LYMPH % 11.7 % (8-40); MCH 30.6 pg (25.7-33.7); MCHC 32.3 g/dl (32.0-35.9); MEAN CELL VOLUME 94.9 fl (80-96); MEAN PLT VOLUME 8.1 fl (7.5-11.1); MONO % 7.2 % (3.8-10.2); NEUT % 80.7 % (42.8-82.8); PLATELET COUNT 273 10^3/uL (134-434); RBC 3.66 M/mm3 (4.00-5.60); RDW 15.2 % (11.9-15.9); WHITE BLOOD COUNT 17.8 K/mm3 (4.0-10.0)
[2022-02-06] MEDS ORDERED: TRIMETHOBENZAMIDE HCL 200MG/2ML INJ IM PRN (22:17)
[2022-02-06] MEDS ORDERED: ACETAMINOPHEN 1000 MG/100 ML BAG IVPB PRN (22:34)
[2022-02-07] MEDS ORDERED: SCOPOLAMINE HYDROBROMIDE 1 PATCH PATCH.TD72 TD SCH
[2022-02-07 01:05] LABS: CHLORIDE 102 mmol/L (98-107); SODIUM 145 mmol/L (136-145)
[2022-02-07 01:06] LABS: ANION GAP 12 MMOL/L (8-16); CO2 31 mmol/L (21-32); GLUCOSE,RANDOM 84 mg/dL (74-106)
[2022-02-07 01:07] LABS: BLOOD UREA NITROGEN 47.2 mg/dL (7-18)
[2022-02-07 01:17] LABS: CALCIUM 8.3 mg/dL (8.5-10.1)
[2022-02-07] MEDS: KCL 10 MEQ IVPB 10 MEQ/100 ML INFUS.BAG IVPB SCH ×3 (01:48→04:15)
[2022-02-07] MEDS: INSULIN SLIDING SCALE (NOVOLOG) 1 VIAL SQ SCH ×4 (06:11→21:31)
[2022-02-07] MEDS ORDERED: SODIUM CHLORIDE 1,000 ML IV SCH (07:30)
[2022-02-07 08:56] LABS: BASO % 0.6 % (0-2.0); EOS % 0.1 % (0-4.5); HEMATOCRIT 35.2 % (35.4-49); HEMOGLOBIN 11.5 GM/dL (11.7-16.9); LYMPH % 13.6 % (8-40); MCH 31.3 pg (25.7-33.7); MCHC 32.7 g/dl (32.0-35.9); MEAN CELL VOLUME 95.5 fl (80-96); MEAN PLT VOLUME 8.2 fl (7.5-11.1); MONO % 5.6 % (3.8-10.2); NEUT % 80.1 % (42.8-82.8); PLATELET COUNT 270 10^3/uL (134-434); RBC 3.69 M/mm3 (4.00-5.60); RDW 15.1 % (11.9-15.9); WHITE BLOOD COUNT 15.9 K/mm3 (4.0-10.0)
[2022-02-07 09:18] LABS: CHLORIDE 102 mmol/L (98-107); SODIUM 143 mmol/L (136-145)
[2022-02-07] MEDS: PANTOPRAZOLE SODIUM 40 MG VIAL IVPUSH SCH ×2 (09:18→21:31)
[2022-02-07 09:26] LABS: ANION GAP 12 MMOL/L (8-16); CALCIUM 8.2 mg/dL (8.5-10.1); CO2 30 mmol/L (21-32); GLUCOSE,RANDOM 99 mg/dL (74-106); MAGNESIUM 2.3 mg/dL (1.8-2.4)
[2022-02-07 09:29] LABS: SGPT/ALT 15 U/L (13-61)
[2022-02-07 09:30] LABS: SGOT/AST 7 U/L (15-37)
[2022-02-07 09:31] LABS: BILIRUBIN,TOTAL 0.4 mg/dL (0.2-1); TOT PROT 6.5 g/dl (6.4-8.2)
[2022-02-07 09:32] LABS: ALK PHOS 99 U/L (45-117)
[2022-02-07 09:36] LABS: ALBUMIN 3.2 g/dl (3.4-5.0); CREATININE 9.1 mg/dL (0.55-1.3)
[2022-02-07] MEDS ORDERED: SODIUM CHLORIDE 250 ML IV PRN (10:58)
[2022-02-07] MEDS: METOPROLOL TARTRATE 50 MG TABLET (FP) PO SCH (21:31)
[2022-02-08] MEDS ORDERED: VANCOMYCIN/WATER 1,250 MG/250 ML BAG IVPB ONE (00:14)
[2022-02-08] MEDS: INSULIN SLIDING SCALE (NOVOLOG) 1 VIAL SQ SCH ×4 (06:16→22:07)
[2022-02-08] MEDS: hydrALAZINE HCL 50 MG TABLET (FP) PO SCH ×4 (07:13→17:17)
[2022-02-08] MEDS ORDERED: TAMSULOSIN HCL 0.4 MG CAP PO SCH (08:30)
[2022-02-08] MEDS: PANTOPRAZOLE SODIUM 40 MG VIAL IVPUSH SCH ×2 (09:27→22:12)
[2022-02-08] MEDS: METOPROLOL TARTRATE 50 MG TABLET (FP) PO SCH ×2 (09:27→22:12)
[2022-02-08] MEDS ORDERED: LISINOPRIL 10 MG TABLET PO SCH (10:00)
[2022-02-08] MEDS ORDERED: SODIUM CHLORIDE 250 ML IV PRN (14:00)
[2022-02-08] MEDS ORDERED: hydrALAZINE HCL 20 MG/ML VIAL IVPUSH PRN (22:28)
[2022-02-08] MEDS ORDERED: TRIMETHOBENZAMIDE HCL 200MG/2ML INJ IM PRN (22:28)
[2022-02-09] MEDS: INSULIN SLIDING SCALE (NOVOLOG) 1 VIAL SQ SCH ×4 (06:32→21:33)
[2022-02-09] MEDS: hydrALAZINE HCL 50 MG TABLET (FP) PO SCH ×2 (08:08→17:28)
[2022-02-09] MEDS: TAMSULOSIN HCL 0.4 MG CAP PO SCH (08:08)
[2022-02-09 10:44] LABS: HEMATOCRIT 34.1 % (35.4-49); HEMOGLOBIN 10.9 GM/dL (11.7-16.9); MCH 30.7 pg (25.7-33.7); MEAN CELL VOLUME 96.1 fl (80-96); MEAN PLT VOLUME 8.4 fl (7.5-11.1); PLATELET COUNT 268 10^3/uL (134-434); RBC 3.55 M/mm3 (4.00-5.60); RDW 14.8 % (11.9-15.9)
[2022-02-09 11:04] LABS: CHLORIDE 100 mmol/L (98-107); SODIUM 141 mmol/L (136-145)
[2022-02-09 11:09] LABS: ANION GAP 12 MMOL/L (8-16); BLOOD UREA NITROGEN 42.5 mg/dL (7-18); CO2 28 mmol/L (21-32); GLUCOSE,RANDOM 101 mg/dL (74-106); MAGNESIUM 2.1 mg/dL (1.8-2.4)
[2022-02-09 11:12] LABS: SGOT/AST 10 U/L (15-37); SGPT/ALT 12 U/L (13-61)
[2022-02-09 11:14] LABS: BILIRUBIN,TOTAL 0.4 mg/dL (0.2-1)
[2022-02-09 11:15] LABS: ALK PHOS 86 U/L (45-117)
[2022-02-09 11:21] LABS: CREATININE 9.6 mg/dL (0.55-1.3)
[2022-02-09] MEDS: METOPROLOL TARTRATE 50 MG TABLET (FP) PO SCH ×2 (11:24→21:32)
[2022-02-09] MEDS: PANTOPRAZOLE SODIUM 40 MG VIAL IVPUSH SCH ×2 (11:24→21:32)
[2022-02-10] MEDS: INSULIN SLIDING SCALE (NOVOLOG) 1 VIAL SQ SCH ×4 (06:16→21:51)
[2022-02-10] MEDS: hydrALAZINE HCL 50 MG TABLET (FP) PO SCH ×2 (08:14→17:35)
[2022-02-10] MEDS: TAMSULOSIN HCL 0.4 MG CAP PO SCH (09:14)
[2022-02-10] MEDS: METOPROLOL TARTRATE 50 MG TABLET (FP) PO SCH ×2 (10:35→21:50)
[2022-02-10] MEDS: PANTOPRAZOLE SODIUM 40 MG VIAL IVPUSH SCH ×2 (10:35→21:51)
[2022-02-10] MEDS ORDERED: SODIUM CHLORIDE 250 ML IV PRN (15:17)
[2022-02-11] MEDS: INSULIN SLIDING SCALE (NOVOLOG) 1 VIAL SQ SCH ×4 (06:36→22:28)
[2022-02-11] MEDS: TAMSULOSIN HCL 0.4 MG CAP PO SCH (08:14)
[2022-02-11] MEDS: hydrALAZINE HCL 50 MG TABLET (FP) PO SCH ×3 (08:14→18:23)
[2022-02-11] MEDS: METOPROLOL TARTRATE 50 MG TABLET (FP) PO SCH ×2 (10:11→22:28)
[2022-02-11] MEDS: PANTOPRAZOLE SODIUM 40 MG VIAL IVPUSH SCH ×2 (10:14→22:22)
[2022-02-11 13:54] LABS: HEMATOCRIT 31.3 % (35.4-49); HEMOGLOBIN 10.6 GM/dL (11.7-16.9); MCH 32.1 pg (25.7-33.7); MCHC 33.8 g/dl (32.0-35.9); MEAN CELL VOLUME 94.9 fl (80-96); MEAN PLT VOLUME 7.4 fl (7.5-11.1); PLATELET COUNT 222 10^3/uL (134-434); RDW 14.8 % (11.9-15.9); WHITE BLOOD COUNT 6.1 K/mm3 (4.0-10.0)
[2022-02-11 14:15] LABS: CHLORIDE 101 mmol/L (98-107); SODIUM 139 mmol/L (136-145)
[2022-02-11 14:27] LABS: ALBUMIN 2.9 g/dl (3.4-5.0); ANION GAP 10 MMOL/L (8-16); BLOOD UREA NITROGEN 43.2 mg/dL (7-18); CALCIUM 7.9 mg/dL (8.5-10.1); CO2 29 mmol/L (21-32); GLUCOSE,RANDOM 92 mg/dL (74-106)
[2022-02-11 14:29] LABS: SGOT/AST 11 U/L (15-37)
[2022-02-11 14:30] LABS: SGPT/ALT 12 U/L (13-61)
[2022-02-11 14:32] LABS: ALK PHOS 81 U/L (45-117); BILIRUBIN,TOTAL 0.5 mg/dL (0.2-1); TOT PROT 5.8 g/dl (6.4-8.2)
[2022-02-11 14:33] LABS: CREATININE 9.4 mg/dL (0.55-1.3)
[2022-02-12] MEDS: INSULIN SLIDING SCALE (NOVOLOG) 1 VIAL SQ SCH ×4 (06:12→23:39)
[2022-02-12] MEDS: TAMSULOSIN HCL 0.4 MG CAP PO SCH (08:12)
[2022-02-12] MEDS: hydrALAZINE HCL 50 MG TABLET (FP) PO SCH ×2 (08:12→16:56)
[2022-02-12] MEDS: PANTOPRAZOLE SODIUM 40 MG VIAL IVPUSH SCH ×2 (09:34→22:12)
[2022-02-12] MEDS: METOPROLOL TARTRATE 50 MG TABLET (FP) PO SCH ×2 (09:34→23:39)
[2022-02-12 13:36] LABS: HEMATOCRIT 32.6 % (35.4-49); HEMOGLOBIN 10.6 GM/dL (11.7-16.9); MCHC 32.5 g/dl (32.0-35.9); MEAN CELL VOLUME 95.4 fl (80-96); MEAN PLT VOLUME 8.4 fl (7.5-11.1); PLATELET COUNT 221 10^3/uL (134-434); RBC 3.41 M/mm3 (4.00-5.60); RDW 14.8 % (11.9-15.9); WHITE BLOOD COUNT 6.1 K/mm3 (4.0-10.0)
[2022-02-12 13:38] LABS: ALBUMIN 3.2 g/dl (3.4-5.0); BLOOD UREA NITROGEN 29.9 mg/dL (7-18); CALCIUM 8.1 mg/dL (8.5-10.1)
[2022-02-12 13:43] LABS: BILIRUBIN,TOTAL 0.2 mg/dL (0.2-1); TOT PROT 5.8 g/dl (6.4-8.2)
[2022-02-13] MEDS: INSULIN SLIDING SCALE (NOVOLOG) 1 VIAL SQ SCH ×4 (06:57→22:56)
[2022-02-13] MEDS: TAMSULOSIN HCL 0.4 MG CAP PO SCH (08:51)
[2022-02-13] MEDS: hydrALAZINE HCL 50 MG TABLET (FP) PO SCH ×3 (08:52→17:40)
[2022-02-13] MEDS: PANTOPRAZOLE SODIUM 40 MG VIAL IVPUSH SCH ×2 (09:01→22:55)
[2022-02-13] MEDS: METOPROLOL TARTRATE 50 MG TABLET (FP) PO SCH ×2 (09:01→22:56)
[2022-02-13 11:05] LABS: HEMOGLOBIN 10.8 GM/dL (11.7-16.9); MCH 31.1 pg (25.7-33.7); MCHC 32.7 g/dl (32.0-35.9); MEAN PLT VOLUME 8.6 fl (7.5-11.1); PLATELET COUNT 225 10^3/uL (134-434); RBC 3.47 M/mm3 (4.00-5.60); RDW 14.7 % (11.9-15.9); WHITE BLOOD COUNT 6.3 K/mm3 (4.0-10.0)
[2022-02-13 11:22] LABS: CHLORIDE 103 mmol/L (98-107); SODIUM 141 mmol/L (136-145)
[2022-02-13 11:29] LABS: ALBUMIN 3.2 g/dl (3.4-5.0); ANION GAP 9 MMOL/L (8-16); BLOOD UREA NITROGEN 41.9 mg/dL (7-18); CALCIUM 8.2 mg/dL (8.5-10.1); CO2 29 mmol/L (21-32); GLUCOSE,RANDOM 99 mg/dL (74-106)
[2022-02-13 11:32] LABS: SGOT/AST 14 U/L (15-37); SGPT/ALT 16 U/L (13-61)
[2022-02-13 11:34] LABS: BILIRUBIN,TOTAL 0.2 mg/dL (0.2-1); TOT PROT 6.1 g/dl (6.4-8.2)
[2022-02-13 11:35] LABS: ALK PHOS 81 U/L (45-117)
[2022-02-13 12:03] LABS: CREATININE 7.8 mg/dL (0.55-1.3)
[2022-02-13] MEDS ORDERED: BISACODYL 10 MG SUPP.RECT PR ONE (14:45)
[2022-02-13 18:22] LABS: EPI CELLS 4 /uL (0-25.1); HYALINE CASTS 1 /uL (0-3.1); URINE APPEARANCE CLEAR; URINE BACTERIA 3 /uL (0-1359); URINE BILIRUBIN NEGATIVE (NEGATIVE); URINE COLOR YELLOW; URINE GLUCOSE (UA) NEGATIVE (NEGATIVE); URINE KETONE NEGATIVE (NEGATIVE); URINE LEUK ESTERASE NEGATIVE (NEGATIVE); URINE NITRITE NEGATIVE (NEGATIVE); URINE PROTEIN 2+ (NEGATIVE); URINE RBC 3 /uL (0-23.9); URINE UROBILINOGEN 0.2 mg/dL (0.2-1.0); URINE WBC 4 /uL (0-25.8)
[2022-02-14 05:57] VITALS: RESP 18
[2022-02-14] MEDS: INSULIN SLIDING SCALE (NOVOLOG) 1 VIAL SQ SCH ×2 (06:40→11:00)
[2022-02-14] MEDS: hydrALAZINE HCL 50 MG TABLET (FP) PO SCH (08:22)
[2022-02-14] MEDS: TAMSULOSIN HCL 0.4 MG CAP PO SCH (08:22)
[2022-02-14] MEDS ORDERED: SODIUM CHLORIDE 250 ML IV PRN (08:57)
[2022-02-14] MEDS: METOPROLOL TARTRATE 50 MG TABLET (FP) PO SCH (09:30)
[2022-02-14] MEDS: PANTOPRAZOLE SODIUM 40 MG VIAL IVPUSH SCH (09:30)
[2022-02-14 13:16] VITALS: BP 152/86; PULSE 71; TEMP 98.1
== END 2022-02-14 15:57 | disposition home or self-care (01) | DRG 73 ==
LOC: JER 13:09 → JERBED 20:07 → J5S 22:30 → J4S 02-07 03:15 → J6S 02-08 21:53
PROVIDERS: ADMIT Internal Medicine; ATTEND Internal Medicine
PROC: 5A1D70Z Performance of Urinary Filtration, Intermittent, Less than 6 Hours Per Day (ICD-10-PCS; principal; 2022-02-14)
DX: E11.43 Type 2 diabetes mellitus with diabetic autonomic (poly)neuropathy (principal); N18.6 End stage renal disease; I13.2 Hypertensive heart and chronic kidney disease with heart failure and with stage 5 chronic kidney disease, or end stage renal disease; I50.32 Chronic diastolic (congestive) heart failure; K92.0 Hematemesis; N32.0 Bladder-neck obstruction; D72.829 Elevated white blood cell count, unspecified; K31.84 Gastroparesis; E78.5 Hyperlipidemia, unspecified; N40.0 Benign prostatic hyperplasia without lower urinary tract symptoms; E87.6 Hypokalemia; Z99.2 Dependence on renal dialysis; K44.9 Diaphragmatic hernia without obstruction or gangrene; K20.90 Esophagitis, unspecified without bleeding
CPT/HCPCS: 0241U-QW; 36415; 71045-TC-FY; 74177-TC; 80048; 80053; 81003; 82962; 83605; 83690; 83735; 84100; 84484; 85025; 85027; 85610; 85730; 86803; 86850; 86900; 86901; 87040; 87086; 87340; 93005; 93010; 93986; 99285-25

== ENCOUNTER 2022-02-18 16:00 | Inpatient (IN) | payer OTHER ==
[2022-02-18] MEDS ORDERED: PANTOPRAZOLE SODIUM 40 MG VIAL IVPUSH ONE (16:44)
[2022-02-18] MEDS ORDERED: ONDANSETRON 4 MG/2 ML VIAL IVPUSH ONE (16:44)
[2022-02-18] MEDS ORDERED: morphine CARPU-JECT 4 MG/1 ML DISP.SYRIN IVPUSH ONE (16:44)
[2022-02-18] MEDS ORDERED: SODIUM CHLORIDE 0.9% 500 ML INFUS.BAG IV ONE (17:09)
[2022-02-18] MEDS ORDERED: TRIMETHOBENZAMIDE HCL 200MG/2ML INJ IM ONE ×2 (17:09→17:32)
[2022-02-18] MEDS ORDERED: morphine SULFATE 4 MG/ML VIAL ONE (17:32)
[2022-02-18] MEDS ORDERED: PANTOPRAZOLE SODIUM 40 MG/100 ML BAG IVPB ONE (17:32)
[2022-02-18] MEDS ORDERED: PANTOPRAZOLE SODIUM 40 MG VIAL ONE ×2 (17:37→22:29)
[2022-02-18] MEDS ORDERED: SODIUM CHLORIDE 250 ML IV PRN ×2 (18:43→18:50)
[2022-02-18 18:45] LABS: BASO % 0.2 % (0-2.0); HEMATOCRIT 38.1 % (35.4-49); HEMOGLOBIN 12.5 GM/dL (11.7-16.9); LYMPH % 4.9 % (8-40); MCHC 32.9 g/dl (32.0-35.9); MEAN CELL VOLUME 94.4 fl (80-96); MEAN PLT VOLUME 9.8 fl (7.5-11.1); MONO % 5.3 % (3.8-10.2); NEUT % 89.6 % (42.8-82.8); PLATELET COUNT 275 10^3/uL (134-434); RBC 4.04 M/mm3 (4.00-5.60); RDW 14.7 % (11.9-15.9); WHITE BLOOD COUNT 18.6 K/mm3 (4.0-10.0)
[2022-02-18 18:47] LABS: CHLORIDE 97 mmol/L (98-107); SODIUM 146 mmol/L (136-145)
[2022-02-18 18:49] LABS: ANION GAP 13 MMOL/L (8-16); BLOOD UREA NITROGEN 41.9 mg/dL (7-18); CALCIUM 9.3 mg/dL (8.5-10.1); CO2 35 mmol/L (21-32); GLUCOSE,RANDOM 141 mg/dL (74-106); LIPASE 121 U/L (73-393); MAGNESIUM 2.4 mg/dL (1.8-2.4)
[2022-02-18 18:51] LABS: SGOT/AST 19 U/L (15-37); SGPT/ALT 20 U/L (13-61)
[2022-02-18 18:54] LABS: BILIRUBIN,TOTAL 0.5 mg/dL (0.2-1); INR 1.09 (0.83-1.09); PROTHROMBIN TIME (PATIENT) 12.6 SEC (9.7-13.0); TOT PROT 7.8 g/dl (6.4-8.2)
[2022-02-18 18:57] LABS: ACTIVATED PTT 30.1 SECONDS (25.2-36.5)
[2022-02-18 19:35] LABS: ALK PHOS 111 U/L (45-117); CREATININE 8.3 mg/dL (0.55-1.3)
[2022-02-18] MEDS ORDERED: HYDROmorphone HCL CARPU-JECT 2 MG/1 ML DISP.SYRIN IVPUSH ONE (20:38)
[2022-02-18] MEDS ORDERED: HYDROmorphone HCl 2 MG/ML VIAL ONE (20:40)
[2022-02-18] MEDS ORDERED: LACTATED RINGERS SOLUTION 1,000 ML IV SCH (21:15)
[2022-02-18] MEDS ORDERED: TRIMETHOBENZAMIDE HCL 200MG/2ML INJ IM PRN (21:22)
[2022-02-18] MEDS ORDERED: hydrALAZINE HCL 20 MG/ML VIAL IVPUSH ONE (21:31)
[2022-02-18] MEDS ORDERED: hydrALAZINE HCL 50 MG TABLET (FP) ONE (22:28)
[2022-02-18] MEDS ORDERED: HEPARIN NA (PORCINE) 5,000 UNITS/ML 1ML VIAL ONE (22:28)
[2022-02-18] MEDS: METOPROLOL TARTRATE 50 MG TABLET (FP) PO SCH (22:40)
[2022-02-18] MEDS: hydrALAZINE HCL 50 MG TABLET (FP) PO SCH (22:40)
[2022-02-18] MEDS: LACTATED RINGERS SOLUTION 1,000 ML IV SCH (22:40)
[2022-02-18] MEDS: HEPARIN NA (PORCINE) 5,000 UNITS/ML 1ML VIAL SQ SCH (22:40)
[2022-02-18] MEDS: PANTOPRAZOLE SODIUM 40 MG VIAL IVPUSH SCH (22:41)
[2022-02-18] MEDS: INSULIN SLIDING SCALE (NOVOLOG) 1 VIAL SQ SCH (22:41)
[2022-02-19] MEDS: LACTATED RINGERS SOLUTION 1,000 ML IV SCH (01:50)
[2022-02-19 04:59] VITALS: BMI 21.2
[2022-02-19] MEDS: HEPARIN NA (PORCINE) 5,000 UNITS/ML 1ML VIAL SQ SCH ×4 (06:24→21:40)
[2022-02-19] MEDS: INSULIN SLIDING SCALE (NOVOLOG) 1 VIAL SQ SCH ×4 (06:25→21:44)
[2022-02-19 09:45] LABS: BASO % 0.2 % (0-2.0); HEMATOCRIT 35.2 % (35.4-49); HEMOGLOBIN 11.6 GM/dL (11.7-16.9); LYMPH % 11.7 % (8-40); MCH 31.3 pg (25.7-33.7); MEAN CELL VOLUME 94.7 fl (80-96); MEAN PLT VOLUME 9.1 fl (7.5-11.1); MONO % 6.5 % (3.8-10.2); NEUT % 81.6 % (42.8-82.8); PLATELET COUNT 274 10^3/uL (134-434); RBC 3.71 M/mm3 (4.00-5.60); RDW 14.6 % (11.9-15.9); WHITE BLOOD COUNT 15.4 K/mm3 (4.0-10.0)
[2022-02-19 10:07] LABS: CHLORIDE 102 mmol/L (98-107); SODIUM 149 mmol/L (136-145)
[2022-02-19 10:17] LABS: ALBUMIN 3.6 g/dl (3.4-5.0); ANION GAP 12 MMOL/L (8-16); BLOOD UREA NITROGEN 47.8 mg/dL (7-18); CALCIUM 8.5 mg/dL (8.5-10.1); CO2 35 mmol/L (21-32); GLUCOSE,RANDOM 109 mg/dL (74-106)
[2022-02-19 10:19] LABS: SGPT/ALT 17 U/L (13-61)
[2022-02-19 10:20] LABS: SGOT/AST 17 U/L (15-37)
[2022-02-19 10:21] LABS: ALK PHOS 96 U/L (45-117); BILIRUBIN,TOTAL 0.6 mg/dL (0.2-1); TOT PROT 6.7 g/dl (6.4-8.2)
[2022-02-19 10:22] LABS: CREATININE 9.4 mg/dL (0.55-1.3)
[2022-02-19 11:11] LABS: MAGNESIUM 2.4 mg/dL (1.8-2.4)
[2022-02-19 11:13] LABS: PHOSPHOROUS 6.2 mg/dL (2.5-4.9)
[2022-02-19] MEDS: TAMSULOSIN HCL 0.4 MG CAP PO SCH (13:22)
[2022-02-19] MEDS: FINASTERIDE 5 MG TABLET (FP) PO SCH (13:22)
[2022-02-19] MEDS: PANTOPRAZOLE SODIUM 40 MG VIAL IVPUSH SCH ×2 (13:22→21:40)
[2022-02-19] MEDS: hydrALAZINE HCL 50 MG TABLET (FP) PO SCH ×2 (13:57→21:44)
[2022-02-19] MEDS: METOPROLOL TARTRATE 50 MG TABLET (FP) PO SCH ×2 (13:57→21:44)
[2022-02-19] MEDS: LISINOPRIL 10 MG TABLET PO SCH (13:58)
[2022-02-19] MEDS: ACETAMINOPHEN 1000 MG/100 ML BAG IVPB PRN (20:36)
[2022-02-20] MEDS: HEPARIN NA (PORCINE) 5,000 UNITS/ML 1ML VIAL SQ SCH ×3 (06:19→22:12)
[2022-02-20] MEDS: INSULIN SLIDING SCALE (NOVOLOG) 1 VIAL SQ SCH ×4 (06:28→23:55)
[2022-02-20] MEDS: TAMSULOSIN HCL 0.4 MG CAP PO SCH (08:41)
[2022-02-20 10:34] LABS: BASO % 0.7 % (0-2.0); EOS % 0.4 % (0-4.5); HEMATOCRIT 33.2 % (35.4-49); HEMOGLOBIN 10.7 GM/dL (11.7-16.9); LYMPH % 21.9 % (8-40); MCH 30.8 pg (25.7-33.7); MCHC 32.3 g/dl (32.0-35.9); MEAN CELL VOLUME 95.2 fl (80-96); MEAN PLT VOLUME 8.7 fl (7.5-11.1); MONO % 8.3 % (3.8-10.2); NEUT % 68.7 % (42.8-82.8); PLATELET COUNT 266 10^3/uL (134-434); RBC 3.49 M/mm3 (4.00-5.60); RDW 14.6 % (11.9-15.9); WHITE BLOOD COUNT 9.5 K/mm3 (4.0-10.0)
[2022-02-20 11:10] LABS: CALCIUM 8.4 mg/dL (8.5-10.1)
[2022-02-20 11:11] LABS: ALBUMIN 3.2 g/dl (3.4-5.0); BLOOD UREA NITROGEN 27.3 mg/dL (7-18); MAGNESIUM 1.9 mg/dL (1.8-2.4)
[2022-02-20] MEDS: FINASTERIDE 5 MG TABLET (FP) PO SCH (11:11)
[2022-02-20] MEDS: METOPROLOL TARTRATE 50 MG TABLET (FP) PO SCH ×2 (11:11→22:22)
[2022-02-20] MEDS: PANTOPRAZOLE SODIUM 40 MG VIAL IVPUSH SCH (11:11)
[2022-02-20 11:13] LABS: BILIRUBIN,TOTAL 0.4 mg/dL (0.2-1)
[2022-02-20 11:14] LABS: CREATININE 7.3 mg/dL (0.55-1.3); PHOSPHOROUS 4.3 mg/dL (2.5-4.9); TOT PROT 6.1 g/dl (6.4-8.2)
[2022-02-20] MEDS: LISINOPRIL 10 MG TABLET PO SCH (11:15)
[2022-02-20] MEDS: hydrALAZINE HCL 50 MG TABLET (FP) PO SCH (11:15)
[2022-02-21] MEDS: HEPARIN NA (PORCINE) 5,000 UNITS/ML 1ML VIAL SQ SCH ×3 (06:16→21:26)
[2022-02-21] MEDS: INSULIN SLIDING SCALE (NOVOLOG) 1 VIAL SQ SCH ×5 (06:26→21:44)
[2022-02-21] MEDS: METOPROLOL TARTRATE 50 MG TABLET (FP) PO SCH ×2 (10:37→21:20)
[2022-02-21] MEDS: TAMSULOSIN HCL 0.4 MG CAP PO SCH (10:37)
[2022-02-21] MEDS: FINASTERIDE 5 MG TABLET (FP) PO SCH (11:18)
[2022-02-21] MEDS: PANTOPRAZOLE 40 MG TABLET PO SCH (11:18)
[2022-02-21 14:04] LABS: HEMATOCRIT 30.6 % (35.4-49); HEMOGLOBIN 10.4 GM/dL (11.7-16.9); MCH 32.1 pg (25.7-33.7); MCHC 33.9 g/dl (32.0-35.9); MEAN CELL VOLUME 94.8 fl (80-96); MEAN PLT VOLUME 8.5 fl (7.5-11.1); PLATELET COUNT 238 10^3/uL (134-434); RBC 3.23 M/mm3 (4.00-5.60); RDW 14.3 % (11.9-15.9); WHITE BLOOD COUNT 7.7 K/mm3 (4.0-10.0)
[2022-02-21 14:22] LABS: BLOOD UREA NITROGEN 35.8 mg/dL (7-18); CALCIUM 7.9 mg/dL (8.5-10.1); CO2 34 mmol/L (21-32); GLUCOSE,RANDOM 156 mg/dL (74-106)
[2022-02-21 14:28] LABS: ANION GAP 7 MMOL/L (8-16); CHLORIDE 98 mmol/L (98-107); CREATININE 9.3 mg/dL (0.55-1.3); SODIUM 139 mmol/L (136-145)
[2022-02-21] MEDS ORDERED: SODIUM CHLORIDE 250 ML IV PRN (15:05)
[2022-02-22] MEDS: HEPARIN NA (PORCINE) 5,000 UNITS/ML 1ML VIAL SQ SCH ×3 (06:06→21:48)
[2022-02-22] MEDS: INSULIN SLIDING SCALE (NOVOLOG) 1 VIAL SQ SCH ×4 (06:19→21:49)
[2022-02-22 08:42] LABS: BASO % 0.6 % (0-2.0); EOS % 1.4 % (0-4.5); HEMATOCRIT 30.7 % (35.4-49); HEMOGLOBIN 10.3 GM/dL (11.7-16.9); LYMPH % 34.3 % (8-40); MCH 31.9 pg (25.7-33.7); MCHC 33.7 g/dl (32.0-35.9); MEAN CELL VOLUME 94.9 fl (80-96); MEAN PLT VOLUME 8.6 fl (7.5-11.1); MONO % 8.7 % (3.8-10.2); PLATELET COUNT 226 10^3/uL (134-434); RBC 3.23 M/mm3 (4.00-5.60); RDW 14.3 % (11.9-15.9); WHITE BLOOD COUNT 6.1 K/mm3 (4.0-10.0)
[2022-02-22 09:02] LABS: CALCIUM 8.1 mg/dL (8.5-10.1)
[2022-02-22 09:03] LABS: BLOOD UREA NITROGEN 19.9 mg/dL (7-18)
[2022-02-22 09:06] LABS: CREATININE 6.5 mg/dL (0.55-1.3); PHOSPHOROUS 3.5 mg/dL (2.5-4.9)
[2022-02-22 09:07] LABS: BILIRUBIN,TOTAL 0.3 mg/dL (0.2-1); TOT PROT 5.7 g/dl (6.4-8.2)
[2022-02-22] MEDS: PANTOPRAZOLE 40 MG TABLET PO SCH (09:31)
[2022-02-22] MEDS: TAMSULOSIN HCL 0.4 MG CAP PO SCH (09:31)
[2022-02-22] MEDS: METOPROLOL TARTRATE 50 MG TABLET (FP) PO SCH ×2 (09:31→21:48)
[2022-02-22] MEDS: FINASTERIDE 5 MG TABLET (FP) PO SCH (09:31)
[2022-02-22] MEDS ORDERED: SODIUM CHLORIDE 250 ML IV PRN (11:57)
[2022-02-22] MEDS: ACETAMINOPHEN 1000 MG/100 ML BAG IVPB PRN (17:15)
[2022-02-22] MEDS ORDERED: ACETAMINOPHEN 325 MG TABLET (FP) PO PRN (19:31)
[2022-02-23] MEDS: HEPARIN NA (PORCINE) 5,000 UNITS/ML 1ML VIAL SQ SCH ×4 (06:13→23:08)
[2022-02-23] MEDS: INSULIN SLIDING SCALE (NOVOLOG) 1 VIAL SQ SCH ×4 (06:14→23:04)
[2022-02-23] MEDS: TAMSULOSIN HCL 0.4 MG CAP PO SCH (09:41)
[2022-02-23 13:17] VITALS: RESP 18
[2022-02-23] MEDS ORDERED: EPOETIN ALFA-EPBX 4,000 UNIT/ML VIAL IVPUSH ONE (14:00)
[2022-02-23] MEDS: FINASTERIDE 5 MG TABLET (FP) PO SCH (15:41)
[2022-02-23] MEDS: METOPROLOL TARTRATE 50 MG TABLET (FP) PO SCH ×3 (15:41→23:08)
[2022-02-23] MEDS: PANTOPRAZOLE 40 MG TABLET PO SCH (15:41)
[2022-02-23] MEDS: hydrALAZINE HCL 50 MG TABLET (FP) PO SCH ×2 (23:04→23:08)
[2022-02-24] MEDS: INSULIN SLIDING SCALE (NOVOLOG) 1 VIAL SQ SCH ×3 (06:28→17:41)
[2022-02-24] MEDS: HEPARIN NA (PORCINE) 5,000 UNITS/ML 1ML VIAL SQ SCH ×2 (06:28→13:53)
[2022-02-24] MEDS: PANTOPRAZOLE 40 MG TABLET PO SCH (09:19)
[2022-02-24] MEDS: TAMSULOSIN HCL 0.4 MG CAP PO SCH (09:19)
[2022-02-24] MEDS: METOPROLOL TARTRATE 50 MG TABLET (FP) PO SCH (09:19)
[2022-02-24] MEDS: hydrALAZINE HCL 50 MG TABLET (FP) PO SCH (09:19)
[2022-02-24] MEDS: FINASTERIDE 5 MG TABLET (FP) PO SCH (09:19)
[2022-02-24 11:19] LABS: BASO % 0.3 % (0-2.0); EOS % 1.8 % (0-4.5); HEMATOCRIT 30.8 % (35.4-49); HEMOGLOBIN 10.3 GM/dL (11.7-16.9); LYMPH % 31.2 % (8-40); MCH 31.6 pg (25.7-33.7); MCHC 33.5 g/dl (32.0-35.9); MEAN CELL VOLUME 94.4 fl (80-96); MEAN PLT VOLUME 8.6 fl (7.5-11.1); MONO % 8.4 % (3.8-10.2); NEUT % 58.3 % (42.8-82.8); PLATELET COUNT 207 10^3/uL (134-434); RBC 3.26 M/mm3 (4.00-5.60); RDW 14.7 % (11.9-15.9); WHITE BLOOD COUNT 6.1 K/mm3 (4.0-10.0)
[2022-02-24] MEDS ORDERED: SODIUM CHLORIDE 250 ML IV PRN (11:31)
[2022-02-24 11:52] LABS: BLOOD UREA NITROGEN 20.4 mg/dL (7-18); CALCIUM 8.1 mg/dL (8.5-10.1)
[2022-02-24 11:53] LABS: ALBUMIN 3.2 g/dl (3.4-5.0)
[2022-02-24 11:55] LABS: PHOSPHOROUS 3.2 mg/dL (2.5-4.9)
[2022-02-24 11:56] LABS: CREATININE 6.3 mg/dL (0.55-1.3)
[2022-02-24 11:57] LABS: BILIRUBIN,TOTAL 0.2 mg/dL (0.2-1)
[2022-02-24 15:16] VITALS: BP 126/66; PULSE 68; TEMP 98.5
== END 2022-02-24 18:25 | disposition home or self-care (01) | DRG 73 ==
LOC: JER 16:00 → JERBED 21:14 → J5S 02-19 00:47
PROVIDERS: ADMIT Internal Medicine; ATTEND Internal Medicine
PROC: 5A1D70Z Performance of Urinary Filtration, Intermittent, Less than 6 Hours Per Day (ICD-10-PCS; principal; 2022-02-18)
DX: E11.43 Type 2 diabetes mellitus with diabetic autonomic (poly)neuropathy (principal); K22.6 Gastro-esophageal laceration-hemorrhage syndrome; N18.6 End stage renal disease; I12.0 Hypertensive chronic kidney disease with stage 5 chronic kidney disease or end stage renal disease; I50.32 Chronic diastolic (congestive) heart failure; N17.9 Acute kidney failure, unspecified; I13.2 Hypertensive heart and chronic kidney disease with heart failure and with stage 5 chronic kidney disease, or end stage renal disease; N18.9 Chronic kidney disease, unspecified; E11.22 Type 2 diabetes mellitus with diabetic chronic kidney disease; D64.9 Anemia, unspecified; Z86.711 Personal history of pulmonary embolism; Z86.718 Personal history of other venous thrombosis and embolism; Z99.2 Dependence on renal dialysis; N40.0 Benign prostatic hyperplasia without lower urinary tract symptoms; Z86.16 Personal history of COVID-19; K31.84 Gastroparesis; R25.1 Tremor, unspecified; E11.65 Type 2 diabetes mellitus with hyperglycemia
CPT/HCPCS: 0241U-QW; 36415; 71045-TC-FY; 80048; 80053; 82962; 83690; 83735; 84100; 85025; 85027; 85610; 85730; 86850; 86900; 86901; 93005; 93010; 99285-25; J1644; Q5106

== ENCOUNTER 2022-03-25 14:58 | Emergency (ER) | payer OTHER ==
[2022-03-25 15:07] VITALS: BMI 22.4
[2022-03-25] MEDS ORDERED: SODIUM CHLORIDE 1,000 ML IV STA (16:06)
[2022-03-25] MEDS ORDERED: ONDANSETRON 4 MG/2 ML VIAL IVPUSH ONE (16:07)
[2022-03-25] MEDS ORDERED: ACETAMINOPHEN 1000 MG/100 ML BAG IVPB ONE (16:07)
[2022-03-25] MEDS ORDERED: ONDANSETRON 4 MG/2 ML VIAL ONE (16:19)
[2022-03-25] MEDS ORDERED: ACETAMINOPHEN INJECTION 100 ML IVPB ONE (16:19)
[2022-03-25 16:20] LABS: VENOUS O2 SATURATION 91.3 % (70-80); VENOUS PCO2 47.5 mmHg (38-52); VENOUS PH 7.55 (7.310-7.410)
[2022-03-25 16:47] LABS: BASO % 0.2 % (0-2.0); HEMATOCRIT 45.2 % (35.4-49); HEMOGLOBIN 14.9 GM/dL (11.7-16.9); LYMPH % 8.3 % (8-40); MCH 31.7 pg (25.7-33.7); MCHC 32.9 g/dl (32.0-35.9); MEAN CELL VOLUME 96.5 fl (80-96); MEAN PLT VOLUME 8.2 fl (7.5-11.1); MONO % 8.1 % (3.8-10.2); NEUT % 83.4 % (42.8-82.8); PLATELET COUNT 310 10^3/uL (134-434); RBC 4.68 M/mm3 (4.00-5.60); RDW 16.3 % (11.9-15.9); WHITE BLOOD COUNT 8.6 K/mm3 (4.0-10.0)
[2022-03-25 17:01] LABS: CHLORIDE 92 mmol/L (98-107); SODIUM 146 mmol/L (136-145)
[2022-03-25 17:04] LABS: ALBUMIN 4.3 g/dl (3.4-5.0); ANION GAP 13 MMOL/L (8-16); BLOOD UREA NITROGEN 53.1 mg/dL (7-18); CO2 41 mmol/L (21-32); GLUCOSE,RANDOM 202 mg/dL (74-106)
[2022-03-25 17:07] LABS: SGOT/AST 17 U/L (15-37); SGPT/ALT 18 U/L (13-61)
[2022-03-25 17:08] LABS: BILIRUBIN,TOTAL 0.3 mg/dL (0.2-1); PHOSPHOROUS 5.7 mg/dL (2.5-4.9)
[2022-03-25 17:09] LABS: TOT PROT 8.1 g/dl (6.4-8.2)
[2022-03-25 17:10] LABS: ALK PHOS 110 U/L (45-117)
[2022-03-25 17:11] LABS: CREATININE 9.6 mg/dL (0.55-1.3)
[2022-03-25] MEDS ORDERED: METOCLOPRAMIDE HCL INJECTION 10 MG/2 ML VIAL IVPUSH ONE (17:28)
[2022-03-25] MEDS ORDERED: METOCLOPRAMIDE HCL INJECTION 10 MG/2 ML VIAL ONE (17:38)
[2022-03-25] MEDS ORDERED: morphine CARPU-JECT 2 MG/1 ML DISP.SYRIN IVPUSH ONE (18:15)
[2022-03-25 20:46] VITALS: BP 148/94; PULSE 78; RESP 19; TEMP 98
[2022-03-27] MEDS ORDERED: ACETAMINOPHEN 1000 MG/100 ML BAG IVPB ONE (20:27)
== END 2022-03-25 21:08 | disposition home or self-care (01) ==
LOC: JER 14:58
PROC: 3E033GC Introduction of Other Therapeutic Substance into Peripheral Vein, Percutaneous Approach (ICD-10-PCS; principal; 2022-03-25)
DX: R10.84 Generalized abdominal pain (principal)
CPT/HCPCS: 36415; 80053; 82010; 82803; 83735; 84100; 85025; 99284-25

== ENCOUNTER 2022-03-26 19:53 | Observation (INO) | payer OTHER ==
[2022-03-26 21:09] VITALS: BMI 22.4
[2022-03-27] MEDS ORDERED: FAMOTIDINE 20 MG/50 ML IVPB 20 MG/50 ML MG IVPB ONE ×2 (00:48→03:08)
[2022-03-27] MEDS ORDERED: MAG HYDROX/AL HYDROX/SIMETH -MYLANTA- ORAL SUSPENSION PO ONE (00:48)
[2022-03-27] MEDS ORDERED: SUCRALFATE 1 GM TABLET (FP) PO ONE (00:48)
[2022-03-27] MEDS ORDERED: METOCLOPRAMIDE HCL INJECTION 10 MG/2 ML VIAL IVPB ONE (00:48)
[2022-03-27] MEDS ORDERED: ACETAMINOPHEN 1000 MG/100 ML BAG IVPB ONE ×2 (00:48→15:43)
[2022-03-27] MEDS ORDERED: ACETAMINOPHEN INJECTION 100 ML IVPB ONE ×3 (01:55→20:36)
[2022-03-27 02:25] LABS: BASO % 0.4 % (0-2.0); HEMATOCRIT 41.8 % (35.4-49); HEMOGLOBIN 13.4 GM/dL (11.7-16.9); LYMPH % 22.1 % (8-40); MCH 31.2 pg (25.7-33.7); MEAN CELL VOLUME 97.5 fl (80-96); MEAN PLT VOLUME 8.1 fl (7.5-11.1); MONO % 11.1 % (3.8-10.2); NEUT % 66.4 % (42.8-82.8); PLATELET COUNT 252 10^3/uL (134-434); RBC 4.29 M/mm3 (4.00-5.60); RDW 16.3 % (11.9-15.9); WHITE BLOOD COUNT 7.5 K/mm3 (4.0-10.0)
[2022-03-27] MEDS ORDERED: METOCLOPRAMIDE HCL INJECTION 10 MG/2 ML VIAL ONE ×2 (02:33→07:46)
[2022-03-27 02:41] LABS: PROTHROMBIN TIME (PATIENT) 11.5 SEC (9.7-13.0)
[2022-03-27 02:43] LABS: ACTIVATED PTT 19.4 SECONDS (25.2-36.5)
[2022-03-27 02:47] LABS: BLOOD UREA NITROGEN 31.4 mg/dL (7-18)
[2022-03-27 02:51] LABS: PHOSPHOROUS 4.9 mg/dL (2.5-4.9)
[2022-03-27 02:52] LABS: BILIRUBIN,TOTAL 0.6 mg/dL (0.2-1); TOT PROT 6.7 g/dl (6.4-8.2)
[2022-03-27 02:57] LABS: ALBUMIN 3.1 g/dl (3.4-5.0); CREATININE 7.4 mg/dL (0.55-1.3)
[2022-03-27] MEDS ORDERED: SUCRALFATE 1 GM TABLET (FP) ONE (04:31)
[2022-03-27] MEDS ORDERED: MAG HYDROX/AL HYDROX/SIMETH 30 ML UNIT-DOSE CUP ONE ×2 (04:31→06:52)
[2022-03-27] MEDS ORDERED: METOCLOPRAMIDE HCL INJECTION 10 MG/2 ML VIAL IVPUSH ONE (07:41)
[2022-03-27] MEDS ORDERED: ACETAMINOPHEN 325 MG TABLET (FP) PO PRN (15:30)
[2022-03-27] MEDS ORDERED: TRIMETHOBENZAMIDE HCL 200MG/2ML INJ IM PRN (15:33)
[2022-03-27] MEDS ORDERED: METOCLOPRAMIDE HCL 10 MG TABLET (FP) PO SCH (16:30)
[2022-03-27] MEDS ORDERED: hydrALAZINE HCL 50 MG TABLET (FP) PO SCH (17:30)
[2022-03-27] MEDS ORDERED: hydrALAZINE HCL 50 MG TABLET (FP) ONE (18:26)
[2022-03-27] MEDS ORDERED: HEPARIN NA (PORCINE) 5,000 UNITS/ML 1ML VIAL SQ SCH (22:00)
[2022-03-27] MEDS ORDERED: METOPROLOL TARTRATE 50 MG TABLET (FP) PO SCH (22:00)
[2022-03-27] MEDS ORDERED: HEPARIN NA (PORCINE) 5,000 UNITS/ML 1ML VIAL ONE (22:04)
[2022-03-28] MEDS ORDERED: SODIUM CHLORIDE 250 ML IV PRN (07:39)
[2022-03-28] MEDS ORDERED: TAMSULOSIN HCL 0.4 MG CAP PO SCH (08:30)
[2022-03-28 09:14] VITALS: RESP 18
[2022-03-28 09:50] LABS: HEMATOCRIT 37.2 % (35.4-49); HEMOGLOBIN 12.1 GM/dL (11.7-16.9); MCH 31.4 pg (25.7-33.7); MCHC 32.5 g/dl (32.0-35.9); MEAN CELL VOLUME 96.9 fl (80-96); MEAN PLT VOLUME 8.6 fl (7.5-11.1); PLATELET COUNT 226 10^3/uL (134-434); RBC 3.84 M/mm3 (4.00-5.60); RDW 15.6 % (11.9-15.9); WHITE BLOOD COUNT 8.2 K/mm3 (4.0-10.0)
[2022-03-28] MEDS ORDERED: LISINOPRIL 10 MG TABLET PO SCH (10:00)
[2022-03-28] MEDS ORDERED: PANTOPRAZOLE 40 MG TABLET PO SCH (10:00)
[2022-03-28] MEDS ORDERED: FINASTERIDE 5 MG TABLET (FP) PO SCH (10:00)
[2022-03-28 10:12] LABS: CHLORIDE 96 mmol/L (98-107); SODIUM 137 mmol/L (136-145)
[2022-03-28 10:14] LABS: ANION GAP 10 MMOL/L (8-16); BLOOD UREA NITROGEN 45.6 mg/dL (7-18); CALCIUM 7.8 mg/dL (8.5-10.1); CO2 31 mmol/L (21-32); GLUCOSE,RANDOM 103 mg/dL (74-106)
[2022-03-28 10:19] LABS: CREATININE 10.9 mg/dL (0.55-1.3)
[2022-03-28] MEDS ORDERED: KETOROLAC TROMETHAMINE 10 MG TABLET PO SCH (11:20)
[2022-03-28] MEDS ORDERED: KETOROLAC TROMETHAMINE 30 MG/1 ML VIAL IVPUSH ONE (11:32)
[2022-03-28] MEDS ORDERED: KETOROLAC TROMETHAMINE 30 MG/1 ML VIAL ONE (13:48)
[2022-03-28 14:55] VITALS: BP 98/58; PULSE 74; TEMP 97.9
== END 2022-03-28 16:23 | disposition home or self-care (01) ==
LOC: JER 19:53 → JERBED 03-27 05:48
PROVIDERS: ADMIT Internal Medicine; ATTEND Nurse Practitioner Family
PROC: 3E033NZ Introduction of Analgesics, Hypnotics, Sedatives into Peripheral Vein, Percutaneous Approach (ICD-10-PCS; principal; 2022-03-27)
PROC: 3E033GC Introduction of Other Therapeutic Substance into Peripheral Vein, Percutaneous Approach (ICD-10-PCS; 2022-03-27)
PROC: 3E023GC Introduction of Other Therapeutic Substance into Muscle, Percutaneous Approach (ICD-10-PCS; 2022-03-27)
PROC: 3E0333Z Introduction of Anti-inflammatory into Peripheral Vein, Percutaneous Approach (ICD-10-PCS; 2022-03-27)
DX: I13.2 Hypertensive heart and chronic kidney disease with heart failure and with stage 5 chronic kidney disease, or end stage renal disease (principal); I50.30 Unspecified diastolic (congestive) heart failure; E11.22 Type 2 diabetes mellitus with diabetic chronic kidney disease; Z99.2 Dependence on renal dialysis; Z91.15 Patient's noncompliance with renal dialysis; I25.10 Atherosclerotic heart disease of native coronary artery without angina pectoris; N18.6 End stage renal disease; R11.2 Nausea with vomiting, unspecified; K31.84 Gastroparesis; F41.8 Other specified anxiety disorders; K59.00 Constipation, unspecified
CPT/HCPCS: 0241U-QW; 36415; 71045-TC-FY; 74176-TC; 76705-TC; 80048; 80053; 82962; 83690; 83735; 84100; 84484; 85025; 85027; 85610; 85730; 86803; 87340; 96365; 96372; 96375; 96376; 99285-25; G0378; J1644

== ENCOUNTER 2022-08-08 20:23 | Inpatient (IN) | payer OTHER ==
[2022-08-08] MEDS ORDERED: FAMOTIDINE 20 MG/50 ML IVPB 20 MG/50 ML MG IVPB ONE ×2 (22:36→22:56)
[2022-08-08] MEDS ORDERED: ACETAMINOPHEN 1000 MG/100 ML BAG IVPB ONE (22:36)
[2022-08-08] MEDS ORDERED: ONDANSETRON 4 MG/2 ML VIAL IVPUSH ONE (22:36)
[2022-08-08] MEDS ORDERED: ONDANSETRON 4 MG/2 ML VIAL ONE (22:56)
[2022-08-08] MEDS ORDERED: ACETAMINOPHEN INJECTION 100 ML IVPB ONE (22:56)
[2022-08-08 23:48] LABS: BASO % 0.4 % (0-2.0); EOS % 0.5 % (0-4.5); HEMATOCRIT 30.9 % (35.4-49); HEMOGLOBIN 10.5 GM/dL (11.7-16.9); LYMPH % 20.6 % (8-40); MCH 31.8 pg (25.7-33.7); MCHC 34.1 g/dl (32.0-35.9); MEAN CELL VOLUME 93.2 fl (80-96); MEAN PLT VOLUME 8.6 fl (7.5-11.1); NEUT % 71.5 % (42.8-82.8); PLATELET COUNT 233 10^3/uL (134-434); RBC 3.31 M/mm3 (4.00-5.60); RDW 13.7 % (11.9-15.9); WHITE BLOOD COUNT 13.3 K/mm3 (4.0-10.0)
[2022-08-09 00:10] LABS: CALCIUM 8.2 mg/dL (8.5-10.1)
[2022-08-09 00:12] LABS: ALBUMIN 3.3 g/dl (3.4-5.0)
[2022-08-09 00:13] LABS: CREATININE 6.5 mg/dL (0.55-1.3)
[2022-08-09 00:15] LABS: BILIRUBIN,TOTAL 0.4 mg/dL (0.2-1); TOT PROT 6.9 g/dl (6.4-8.2)
[2022-08-09] MEDS ORDERED: SUCRALFATE 1 GM TABLET (FP) PO ONE (01:24)
[2022-08-09] MEDS ORDERED: SUCRALFATE 1 GM TABLET (FP) ONE (01:52)
[2022-08-09] MEDS ORDERED: METOCLOPRAMIDE HCL INJECTION 10 MG/2 ML VIAL IVPUSH PRN (03:37)
[2022-08-09] MEDS ORDERED: HYDROmorphone HCl 2 MG/ML VIAL ONE (05:02)
[2022-08-09] MEDS: HYDROmorphone HCL 2 MG TABLET PO PRN ×2 (05:27→14:20)
[2022-08-09] MEDS ORDERED: HEPARIN NA (PORCINE) 5,000 UNITS/ML 1ML VIAL ONE (07:17)
[2022-08-09] MEDS: INSULIN SLIDING SCALE (NOVOLOG) 1 VIAL SQ SCH ×4 (07:23→21:00)
[2022-08-09] MEDS: HEPARIN NA (PORCINE) 5,000 UNITS/ML 1ML VIAL SQ SCH ×3 (07:23→21:01)
[2022-08-09 07:55] LABS: ALBUMIN 3.3 g/dl (3.4-5.0); BLOOD UREA NITROGEN 33.4 mg/dL (7-18); CALCIUM 8.2 mg/dL (8.5-10.1); MAGNESIUM 2.1 mg/dL (1.8-2.4)
[2022-08-09 07:59] LABS: PHOSPHOROUS 3.6 mg/dL (2.5-4.9)
[2022-08-09 08:00] LABS: BILIRUBIN,TOTAL 0.7 mg/dL (0.2-1); TOT PROT 6.5 g/dl (6.4-8.2)
[2022-08-09] MEDS ORDERED: ENOXAPARIN NA (PORCINE) 40 MG/0.4 ML DISP.SYRIN SQ SCH (10:00)
[2022-08-09] MEDS ORDERED: POTASSIUM CHLORIDE ORAL LIQUID 20 MEQ/15 ML PO ONE (13:37)
[2022-08-09 13:38] VITALS: BMI 21.2
[2022-08-09] MEDS ORDERED: SODIUM CHLORIDE 250 ML IV PRN (13:38)
[2022-08-09] MEDS ORDERED: ACETAMINOPHEN 325 MG TABLET (FP) PO PRN (15:31)
[2022-08-09] MEDS: PANTOPRAZOLE 40 MG TABLET PO SCH (16:23)
[2022-08-09] MEDS ORDERED: ACETAMINOPHEN 1000 MG/100 ML BAG IVPB ONE (17:30)
[2022-08-09 20:35] VITALS: RESP 18
[2022-08-10] MEDS: HYDROmorphone HCL 2 MG TABLET PO PRN (01:01)
[2022-08-10] MEDS: INSULIN SLIDING SCALE (NOVOLOG) 1 VIAL SQ SCH ×4 (06:19→21:33)
[2022-08-10] MEDS: HEPARIN NA (PORCINE) 5,000 UNITS/ML 1ML VIAL SQ SCH ×3 (06:20→21:32)
[2022-08-10] MEDS ORDERED: EPOETIN ALFA-EPBX 4,000 UNIT/ML VIAL IVPUSH ONE (09:00)
[2022-08-10] MEDS: PANTOPRAZOLE 40 MG TABLET PO SCH (09:20)
[2022-08-10 10:01] LABS: BASO % 0.7 % (0-2.0); EOS % 1.7 % (0-4.5); HEMATOCRIT 29.9 % (35.4-49); HEMOGLOBIN 10.2 GM/dL (11.7-16.9); LYMPH % 36.4 % (8-40); MCH 31.7 pg (25.7-33.7); MEAN CELL VOLUME 93.3 fl (80-96); MEAN PLT VOLUME 8.8 fl (7.5-11.1); MONO % 8.7 % (3.8-10.2); NEUT % 52.5 % (42.8-82.8); PLATELET COUNT 213 10^3/uL (134-434); RBC 3.21 M/mm3 (4.00-5.60); RDW 13.5 % (11.9-15.9); WHITE BLOOD COUNT 6.9 K/mm3 (4.0-10.0)
[2022-08-10 10:46] LABS: CHLORIDE 107 mmol/L (98-107); SODIUM 141 mmol/L (136-145)
[2022-08-10 10:52] LABS: CALCIUM 8.1 mg/dL (8.5-10.1)
[2022-08-10 10:53] LABS: ALBUMIN 3.1 g/dl (3.4-5.0); ANION GAP 9 MMOL/L (8-16); BLOOD UREA NITROGEN 40.4 mg/dL (7-18); CO2 25 mmol/L (21-32); GLUCOSE,RANDOM 112 mg/dL (74-106)
[2022-08-10 10:56] LABS: SGOT/AST 10 U/L (15-37); SGPT/ALT 18 U/L (13-61)
[2022-08-10 10:58] LABS: BILIRUBIN,TOTAL 0.3 mg/dL (0.2-1); TOT PROT 6.1 g/dl (6.4-8.2)
[2022-08-10 10:59] LABS: ALK PHOS 74 U/L (45-117)
[2022-08-10 11:04] LABS: CREATININE 9.4 mg/dL (0.55-1.3)
[2022-08-10] MEDS: oxyCODONE HCL 5 MG TABLET PO PRN (16:53)
[2022-08-11] MEDS: HEPARIN NA (PORCINE) 5,000 UNITS/ML 1ML VIAL SQ SCH ×2 (05:47→13:35)
[2022-08-11] MEDS: INSULIN SLIDING SCALE (NOVOLOG) 1 VIAL SQ SCH ×3 (06:19→16:58)
[2022-08-11] MEDS: PANTOPRAZOLE 40 MG TABLET PO SCH (09:20)
[2022-08-11 10:01] LABS: BASO % 0.6 % (0-2.0); HEMOGLOBIN 10.5 GM/dL (11.7-16.9); LYMPH % 33.3 % (8-40); MCH 31.5 pg (25.7-33.7); MEAN CELL VOLUME 92.9 fl (80-96); MONO % 8.8 % (3.8-10.2); NEUT % 56.3 % (42.8-82.8); PLATELET COUNT 209 10^3/uL (134-434); RBC 3.34 M/mm3 (4.00-5.60); RDW 13.8 % (11.9-15.9); WHITE BLOOD COUNT 6.6 K/mm3 (4.0-10.0)
[2022-08-11] MEDS: oxyCODONE HCL 5 MG TABLET PO PRN (11:40)
[2022-08-11 14:58] VITALS: BP 146/79; PULSE 72; TEMP 98.6
== END 2022-08-11 17:51 | disposition home or self-care (01) | DRG 73 ==
LOC: JER 20:23 → JERBED 08-09 02:09 → OBSVTOIN 08-09 03:32 → J6S 08-09 09:41
PROVIDERS: ADMIT Internal Medicine; ATTEND Nurse Practitioner Family
DX: E11.43 Type 2 diabetes mellitus with diabetic autonomic (poly)neuropathy (principal); N18.6 End stage renal disease; I50.32 Chronic diastolic (congestive) heart failure; I13.2 Hypertensive heart and chronic kidney disease with heart failure and with stage 5 chronic kidney disease, or end stage renal disease; N17.9 Acute kidney failure, unspecified; K31.84 Gastroparesis; D63.1 Anemia in chronic kidney disease; E11.22 Type 2 diabetes mellitus with diabetic chronic kidney disease; N40.0 Benign prostatic hyperplasia without lower urinary tract symptoms; F41.8 Other specified anxiety disorders; R11.2 Nausea with vomiting, unspecified; R10.13 Epigastric pain; D72.829 Elevated white blood cell count, unspecified; Z99.2 Dependence on renal dialysis; Z89.421 Acquired absence of other right toe(s); Z89.422 Acquired absence of other left toe(s)
CPT/HCPCS: 36415; 71046-TC-FY; 80053; 82962; 83036; 83690; 83735; 84100; 84484; 85025; 87340; 87517; 93005; 93010; 99285-25; C9803-CS; G0378; J1644; Q5106; U0003; U0005

== ENCOUNTER 2022-08-29 15:46 | Inpatient (IN) | payer OTHER ==
[2022-08-29] MEDS ORDERED: PANTOPRAZOLE SODIUM 40 MG in SODIUM CHLORIDE 100 ML IVPB ONE (16:49)
[2022-08-29] MEDS ORDERED: PANTOPRAZOLE SODIUM 40 MG/100 ML BAG IVPB ONE (17:01)
[2022-08-29] MEDS ORDERED: ONDANSETRON 4 MG/2 ML VIAL IVPB ONE (17:13)
[2022-08-29] MEDS ORDERED: ACETAMINOPHEN 1000 MG/100 ML BAG IVPB ONE (17:13)
[2022-08-29] MEDS ORDERED: METOCLOPRAMIDE HCL INJECTION 10 MG/2 ML VIAL IVPB ONE (17:13)
[2022-08-29] MEDS ORDERED: ONDANSETRON 4 MG/2 ML VIAL ONE (17:29)
[2022-08-29] MEDS ORDERED: METOCLOPRAMIDE HCL INJECTION 10 MG/2 ML VIAL ONE ×2 (17:29→19:39)
[2022-08-29] MEDS ORDERED: ACETAMINOPHEN INJECTION 100 ML IVPB ONE (17:29)
[2022-08-29 19:01] LABS: BASO % 0.4 % (0-2.0); EOS % 0.1 % (0-4.5); HEMATOCRIT 36.2 % (35.4-49); HEMOGLOBIN 12.2 GM/dL (11.7-16.9); LYMPH % 12.9 % (8-40); MCHC 33.8 g/dl (32.0-35.9); MEAN CELL VOLUME 94.8 fl (80-96); MEAN PLT VOLUME 8.4 fl (7.5-11.1); MONO % 3.8 % (3.8-10.2); NEUT % 82.8 % (42.8-82.8); PLATELET COUNT 231 10^3/uL (134-434); RBC 3.82 M/mm3 (4.00-5.60); RDW 15.1 % (11.9-15.9); RETICULOCYTES 2.87 % (0.5-1.5); WHITE BLOOD COUNT 10.6 K/mm3 (4.0-10.0)
[2022-08-29 19:07] LABS: INR 1.07 (0.83-1.09); PROTHROMBIN TIME (PATIENT) 12.4 SEC (9.7-13.0)
[2022-08-29 19:08] LABS: VENOUS BASE EXCESS 2.1 mmol/L (-2-2); VENOUS O2 SATURATION 76.4 % (70-80); VENOUS PCO2 45.4 mmHg (38-52); VENOUS PH 7.399 (7.310-7.410)
[2022-08-29 19:09] LABS: ACTIVATED PTT 32.2 SECONDS (25.2-36.5)
[2022-08-29 19:40] LABS: CHLORIDE 106 mmol/L (98-107); SODIUM 139 mmol/L (136-145)
[2022-08-29 19:44] LABS: ALBUMIN 4.3 g/dl (3.4-5.0); BLOOD UREA NITROGEN 47.2 mg/dL (7-18); CALCIUM 9.1 mg/dL (8.5-10.1); CO2 27 mmol/L (21-32); GLUCOSE,RANDOM 127 mg/dL (74-106)
[2022-08-29 19:47] LABS: SGPT/ALT 36 U/L (13-61)
[2022-08-29 19:48] LABS: IRON SERUM 52 ug/dL (50-175); SGOT/AST 46 U/L (15-37); TOTAL IRON BINDING CAPACITY 266 ug/dL (250-450)
[2022-08-29 19:49] LABS: BILIRUBIN,TOTAL 0.5 mg/dL (0.2-1); TOT PROT 8.5 g/dl (6.4-8.2)
[2022-08-29 19:50] LABS: ALK PHOS 97 U/L (45-117)
[2022-08-29 19:54] LABS: ANION GAP 7 MMOL/L (8-16); CREATININE 11.1 mg/dL (0.55-1.3); POTASSIUM 6.6 mmol/L (3.5-5.1)
[2022-08-29] MEDS ORDERED: FAMOTIDINE 20 MG/50 ML IVPB 20 MG/50 ML MG IVPB ONE ×3 (20:05→20:49)
[2022-08-29] MEDS ORDERED: MAG HYDROX/AL HYDROX/SIMETH 30 ML UNIT-DOSE CUP PO ONE (20:56)
[2022-08-29] MEDS ORDERED: MAG HYDROX/AL HYDROX/SIMETH 30 ML UNIT-DOSE CUP ONE (21:02)
[2022-08-30] MEDS ORDERED: METOCLOPRAMIDE HCL INJECTION 10 MG/2 ML VIAL IVPUSH PRN ×3 (03:08→16:55)
[2022-08-30] MEDS ORDERED: SODIUM CHLORIDE 1,000 ML IV SCH (03:15)
[2022-08-30 05:07] VITALS: RESP 18
[2022-08-30] MEDS ORDERED: HEPARIN NA (PORCINE) 5,000 UNITS/ML 1ML VIAL SQ SCH (06:00)
[2022-08-30] MEDS ORDERED: SODIUM CHLORIDE 250 ML IV PRN (06:04)
[2022-08-30] MEDS: INSULIN SLIDING SCALE (NOVOLOG) 1 VIAL SQ SCH ×3 (06:21→17:21)
[2022-08-30 09:15] LABS: HEMATOCRIT 31.8 % (35.4-49); HEMOGLOBIN 10.9 GM/dL (11.7-16.9); MCH 32.6 pg (25.7-33.7); MCHC 34.2 g/dl (32.0-35.9); MEAN CELL VOLUME 95.2 fl (80-96); MEAN PLT VOLUME 8.7 fl (7.5-11.1); PLATELET COUNT 204 10^3/uL (134-434); RBC 3.34 M/mm3 (4.00-5.60)
[2022-08-30 09:29] LABS: CHLORIDE 103 mmol/L (98-107); POTASSIUM 3.2 mmol/L (3.5-5.1); SODIUM 139 mmol/L (136-145)
[2022-08-30 09:36] LABS: ALBUMIN 3.8 g/dl (3.4-5.0); ANION GAP 10 MMOL/L (8-16); CALCIUM 8.4 mg/dL (8.5-10.1); CO2 26 mmol/L (21-32); GLUCOSE,RANDOM 172 mg/dL (74-106); MAGNESIUM 2.3 mg/dL (1.8-2.4); SGPT/ALT 20 U/L (13-61)
[2022-08-30 09:38] LABS: BILIRUBIN,TOTAL 0.4 mg/dL (0.2-1); PHOSPHOROUS 4.6 mg/dL (2.5-4.9)
[2022-08-30 09:40] LABS: ALK PHOS 89 U/L (45-117); SGOT/AST 8 U/L (15-37)
[2022-08-30 09:50] LABS: CREATININE 11.5 mg/dL (0.55-1.3)
[2022-08-30] MEDS: PANTOPRAZOLE SODIUM 40 MG VIAL IVPUSH SCH ×2 (12:56→21:22)
[2022-08-30] MEDS ORDERED: POTASSIUM CHLORIDE ORAL LIQUID 20 MEQ/15 ML PO ONE (15:12)
[2022-08-30 15:44] LABS: HEMATOCRIT 31.9 % (35.4-49); HEMOGLOBIN 10.8 GM/dL (11.7-16.9); MCH 32.2 pg (25.7-33.7); MEAN CELL VOLUME 94.7 fl (80-96); PLATELET COUNT 186 10^3/uL (134-434); RBC 3.36 M/mm3 (4.00-5.60); RDW 15.1 % (11.9-15.9); WHITE BLOOD COUNT 8.4 K/mm3 (4.0-10.0)
[2022-08-30] MEDS: SEVELAMER CARBONATE 800 MG TAB (FP) PO SCH (17:22)
[2022-08-30] MEDS ORDERED: DEXTROSE 50%-WATER 25 GM/50 ML DISP.SYRIN IVPUSH PRN (21:56)
[2022-08-31] MEDS: INSULIN SLIDING SCALE (NOVOLOG) 1 VIAL SQ SCH ×3 (06:13→16:00)
[2022-08-31] MEDS: SEVELAMER CARBONATE 800 MG TAB (FP) PO SCH ×3 (08:03→17:04)
[2022-08-31 09:13] LABS: HEMATOCRIT 32.5 % (35.4-49); MCH 32.2 pg (25.7-33.7); MCHC 33.9 g/dl (32.0-35.9); MEAN PLT VOLUME 8.1 fl (7.5-11.1); PLATELET COUNT 182 10^3/uL (134-434); RBC 3.43 M/mm3 (4.00-5.60); RDW 15.3 % (11.9-15.9); WHITE BLOOD COUNT 7.2 K/mm3 (4.0-10.0)
[2022-08-31] MEDS ORDERED: SODIUM CHLORIDE 250 ML IV PRN (09:23)
[2022-08-31 09:38] LABS: CHLORIDE 102 mmol/L (98-107); POTASSIUM 3.6 mmol/L (3.5-5.1); SODIUM 139 mmol/L (136-145)
[2022-08-31 09:41] LABS: CALCIUM 8.3 mg/dL (8.5-10.1)
[2022-08-31 09:43] LABS: ANION GAP 6 MMOL/L (8-16); CO2 31 mmol/L (21-32); GLUCOSE,RANDOM 96 mg/dL (74-106); MAGNESIUM 2.2 mg/dL (1.8-2.4)
[2022-08-31 09:45] LABS: PHOSPHOROUS 3.4 mg/dL (2.5-4.9)
[2022-08-31 09:52] LABS: BLOOD UREA NITROGEN 22.2 mg/dL (7-18); CREATININE 7.8 mg/dL (0.55-1.3)
[2022-08-31] MEDS: PANTOPRAZOLE SODIUM 40 MG VIAL IVPUSH SCH ×3 (10:09→21:20)
[2022-08-31] MEDS ORDERED: EPOETIN ALFA-EPBX 4,000 UNIT/ML VIAL SQ ONE (10:59)
[2022-09-01] MEDS: INSULIN SLIDING SCALE (NOVOLOG) 1 VIAL SQ SCH ×3 (06:52→16:51)
[2022-09-01 08:16] LABS: HEMATOCRIT 35.4 % (35.4-49); MCH 32.6 pg (25.7-33.7); MCHC 33.9 g/dl (32.0-35.9); MEAN CELL VOLUME 95.9 fl (80-96); MEAN PLT VOLUME 8.9 fl (7.5-11.1); PLATELET COUNT 178 10^3/uL (134-434); RBC 3.69 M/mm3 (4.00-5.60); RDW 15.5 % (11.9-15.9)
[2022-09-01 08:20] LABS: POTASSIUM 3.8 mmol/L (3.5-5.1)
[2022-09-01 08:31] LABS: BLOOD UREA NITROGEN 20.6 mg/dL (7-18)
[2022-09-01 08:32] LABS: CALCIUM 8.7 mg/dL (8.5-10.1); MAGNESIUM 2.2 mg/dL (1.8-2.4)
[2022-09-01 08:34] LABS: PHOSPHOROUS 3.3 mg/dL (2.5-4.9)
[2022-09-01] MEDS: SEVELAMER CARBONATE 800 MG TAB (FP) PO SCH ×3 (08:45→17:30)
[2022-09-01] MEDS: PANTOPRAZOLE SODIUM 40 MG VIAL IVPUSH SCH ×2 (10:58→22:01)
[2022-09-01] MEDS ORDERED: INSULIN (NOVOLOG) ASPART 100 UNITS/ML 10ML VIAL ONE (11:34)
[2022-09-01] MEDS: RIFAXIMIN 550 MG TABLET PO SCH ×2 (14:50→22:01)
[2022-09-01] MEDS ORDERED: SODIUM CHLORIDE 250 ML IV PRN (17:20)
[2022-09-01] MEDS: LIPASE/PROTEASE/AMYLASE 36,000 UNIT CAPSULE PO SCH (17:30)
[2022-09-02] MEDS: INSULIN SLIDING SCALE (NOVOLOG) 1 VIAL SQ SCH ×2 (06:18→12:22)
[2022-09-02] MEDS: RIFAXIMIN 550 MG TABLET PO SCH ×2 (06:20→15:15)
[2022-09-02] MEDS: LIPASE/PROTEASE/AMYLASE 36,000 UNIT CAPSULE PO SCH ×2 (08:00→12:26)
[2022-09-02] MEDS: SEVELAMER CARBONATE 800 MG TAB (FP) PO SCH ×2 (08:00→12:26)
[2022-09-02 08:45] VITALS: TEMP 98.2
[2022-09-02 10:00] LABS: HEMATOCRIT 31.8 % (35.4-49); HEMOGLOBIN 10.8 GM/dL (11.7-16.9); MCH 32.6 pg (25.7-33.7); MCHC 34.1 g/dl (32.0-35.9); MEAN CELL VOLUME 95.7 fl (80-96); MEAN PLT VOLUME 8.3 fl (7.5-11.1); PLATELET COUNT 163 10^3/uL (134-434); RBC 3.32 M/mm3 (4.00-5.60); RDW 14.9 % (11.9-15.9); WHITE BLOOD COUNT 7.2 K/mm3 (4.0-10.0)
[2022-09-02 10:20] LABS: POTASSIUM 3.1 mmol/L (3.5-5.1)
[2022-09-02 10:21] LABS: CALCIUM 7.7 mg/dL (8.5-10.1)
[2022-09-02 10:22] LABS: BLOOD UREA NITROGEN 18.5 mg/dL (7-18)
[2022-09-02 10:25] LABS: CREATININE 5.4 mg/dL (0.55-1.3); PHOSPHOROUS 1.8 mg/dL (2.5-4.9)
[2022-09-02 12:09] VITALS: BP 124/82; PULSE 74
[2022-09-02] MEDS: PANTOPRAZOLE SODIUM 40 MG VIAL IVPUSH SCH (12:26)
[2022-09-02 23:59] VITALS: BMI 19.8
== END 2022-09-02 17:51 | disposition home or self-care (01) | DRG 73 ==
LOC: JER 15:46 → JERBED 22:31 → OBSVTOIN 08-30 03:05 → J6S 08-30 04:23
PROVIDERS: ADMIT Internal Medicine; ATTEND Internal Medicine
PROC: 5A1D70Z Performance of Urinary Filtration, Intermittent, Less than 6 Hours Per Day (ICD-10-PCS; principal; 2022-09-02)
DX: E11.43 Type 2 diabetes mellitus with diabetic autonomic (poly)neuropathy (principal); N18.6 End stage renal disease; I13.2 Hypertensive heart and chronic kidney disease with heart failure and with stage 5 chronic kidney disease, or end stage renal disease; K92.0 Hematemesis; I50.32 Chronic diastolic (congestive) heart failure; K31.84 Gastroparesis; Z96.89 Presence of other specified functional implants; E11.65 Type 2 diabetes mellitus with hyperglycemia; E78.5 Hyperlipidemia, unspecified; K86.89 Other specified diseases of pancreas; Z99.2 Dependence on renal dialysis
CPT/HCPCS: 36415; 71045-TC-FY; 74177-TC; 80048; 80053; 82728; 82803; 82962; 83540; 83550; 83605; 83735; 84100; 84132; 84484; 85025; 85027; 85045; 85610; 85730; 86803; 86850; 86900; 86901; 87045; 87046; 87324; 87340; 87449; 93005; 93010; 99285-25; C9803-CS; G0378; J1644; Q5106; Q9967; U0003; U0005

== ENCOUNTER 2023-01-01 18:01 | Inpatient (IN) | payer OTHER ==
[2023-01-01 18:14] VITALS: BMI 20.7
[2023-01-01 18:51] LABS: BASO % 0.7 % (0-2.0); EOS % 0.6 % (0-4.5); HEMATOCRIT 37.4 % (35.4-49); HEMOGLOBIN 12.3 GM/dL (11.7-16.9); LYMPH % 24.5 % (8-40); MCH 31.4 pg (25.7-33.7); MCHC 32.9 g/dl (32.0-35.9); MEAN CELL VOLUME 95.4 fl (80-96); MEAN PLT VOLUME 8.7 fl (7.5-11.1); MONO % 7.7 % (3.8-10.2); NEUT % 66.5 % (42.8-82.8); PLATELET COUNT 173 10^3/uL (134-434); RBC 3.92 M/mm3 (4.00-5.60); RDW 14.7 % (11.9-15.9); WHITE BLOOD COUNT 7.7 K/mm3 (4.0-10.0)
[2023-01-01 19:01] LABS: CHLORIDE 104 mmol/L (98-107); POTASSIUM 4.3 mmol/L (3.5-5.1); SODIUM 142 mmol/L (136-145)
[2023-01-01 19:03] LABS: CALCIUM 7.7 mg/dL (8.5-10.1)
[2023-01-01 19:04] LABS: ALBUMIN 3.2 g/dl (3.4-5.0); ANION GAP 12 MMOL/L (8-16); BLOOD UREA NITROGEN 37.9 mg/dL (7-18); CO2 26 mmol/L (21-32); GLUCOSE,RANDOM 131 mg/dL (74-106); MAGNESIUM 1.9 mg/dL (1.8-2.4)
[2023-01-01 19:06] LABS: SGPT/ALT 39 U/L (13-61)
[2023-01-01 19:07] LABS: PHOSPHOROUS 4.8 mg/dL (2.5-4.9); SGOT/AST 19 U/L (15-37)
[2023-01-01 19:08] LABS: BILIRUBIN,TOTAL 0.2 mg/dL (0.2-1); TOT PROT 6.4 g/dl (6.4-8.2)
[2023-01-01 19:10] LABS: ALK PHOS 127 U/L (45-117)
[2023-01-01 19:19] LABS: CREATININE 12.1 mg/dL (0.55-1.3)
[2023-01-01] MEDS ORDERED: HEPARIN NA (PORCINE) 5,000 UNITS/ML 1ML VIAL SQ ONE (23:49)
[2023-01-02] MEDS ORDERED: HEPARIN NA (PORCINE) 5,000 UNITS/ML 1ML VIAL ONE ×3 (00:35→16:19)
[2023-01-02] MEDS ORDERED: PYRIDOSTIGMINE BROMIDE 60 MG TABLET PO SCH (06:00)
[2023-01-02 08:26] LABS: BASO % 0.7 % (0-2.0); EOS % 1.5 % (0-4.5); HEMATOCRIT 35.8 % (35.4-49); LYMPH % 32.7 % (8-40); MCH 31.7 pg (25.7-33.7); MCHC 33.5 g/dl (32.0-35.9); MEAN CELL VOLUME 94.9 fl (80-96); MEAN PLT VOLUME 8.7 fl (7.5-11.1); MONO % 9.2 % (3.8-10.2); NEUT % 55.9 % (42.8-82.8); PLATELET COUNT 174 10^3/uL (134-434); RBC 3.78 M/mm3 (4.00-5.60); RDW 14.7 % (11.9-15.9); WHITE BLOOD COUNT 7.2 K/mm3 (4.0-10.0)
[2023-01-02 08:39] LABS: CHLORIDE 105 mmol/L (98-107); POTASSIUM 4.2 mmol/L (3.5-5.1); SODIUM 142 mmol/L (136-145)
[2023-01-02 08:50] LABS: ALBUMIN 3.1 g/dl (3.4-5.0); ANION GAP 13 MMOL/L (8-16); BLOOD UREA NITROGEN 47.7 mg/dL (7-18); CALCIUM 7.3 mg/dL (8.5-10.1); CO2 24 mmol/L (21-32); GLUCOSE,RANDOM 106 mg/dL (74-106); MAGNESIUM 2.1 mg/dL (1.8-2.4)
[2023-01-02 08:52] LABS: PHOSPHOROUS 5.5 mg/dL (2.5-4.9)
[2023-01-02 08:53] LABS: SGOT/AST 17 U/L (15-37); SGPT/ALT 42 U/L (13-61)
[2023-01-02 08:54] LABS: BILIRUBIN,TOTAL 0.2 mg/dL (0.2-1)
[2023-01-02 08:55] LABS: ALK PHOS 140 U/L (45-117); TOT PROT 6.2 g/dl (6.4-8.2)
[2023-01-02 08:57] LABS: CREATININE 12.5 mg/dL (0.55-1.3)
[2023-01-02] MEDS ORDERED: PANTOPRAZOLE 40 MG TABLET PO ONE (09:08)
[2023-01-02] MEDS ORDERED: PREGABALIN 25 MG CAPSULE ONE ×2 (09:08→16:19)
[2023-01-02] MEDS ORDERED: SEVELAMER CARBONATE 800 MG TAB (FP) ONE ×2 (09:09→16:19)
[2023-01-02] MEDS: PREGABALIN 25 MG CAPSULE PO SCH ×2 (09:43→16:34)
[2023-01-02] MEDS: HEPARIN NA (PORCINE) 5,000 UNITS/ML 1ML VIAL SQ SCH ×2 (09:43→16:34)
[2023-01-02] MEDS: SEVELAMER CARBONATE 800 MG TAB (FP) PO SCH ×3 (09:43→18:09)
[2023-01-02] MEDS ORDERED: PANTOPRAZOLE 40 MG TABLET PO SCH (10:00)
[2023-01-02] MEDS ORDERED: SODIUM CHLORIDE 250 ML IV PRN (10:05)
[2023-01-02] MEDS ORDERED: SODIUM CHLORIDE 250 ML IV STA (10:07)
[2023-01-02 12:18] VITALS: RESP 18
[2023-01-02 15:32] VITALS: TEMP 98
[2023-01-02] MEDS: MIDODRINE HCL 5 MG TABLET PO SCH ×3 (16:33→18:09)
[2023-01-02] MEDS: LIPASE/PROTEASE/AMYLASE 36,000 UNIT CAPSULE PO SCH ×2 (16:34→18:09)
[2023-01-02 17:33] VITALS: BP 123/79; PULSE 78
== END 2023-01-02 18:27 | disposition home or self-care (01) | DRG 393 ==
LOC: JER 18:01 → JERBED 19:36 → OBSVTOIN 23:49
PROVIDERS: ADMIT Internal Medicine; ATTEND Student in an Organized Health Care Education/Training Program
PROC: 5A1D70Z Performance of Urinary Filtration, Intermittent, Less than 6 Hours Per Day (ICD-10-PCS; principal; 2023-01-02)
DX: K52.1 Toxic gastroenteritis and colitis (principal); N18.6 End stage renal disease; I50.32 Chronic diastolic (congestive) heart failure; I13.2 Hypertensive heart and chronic kidney disease with heart failure and with stage 5 chronic kidney disease, or end stage renal disease; D64.9 Anemia, unspecified; Z86.718 Personal history of other venous thrombosis and embolism; Z86.711 Personal history of pulmonary embolism; R55 Syncope and collapse; R19.7 Diarrhea, unspecified; E11.22 Type 2 diabetes mellitus with diabetic chronic kidney disease; Z99.2 Dependence on renal dialysis; E86.1 Hypovolemia; E11.43 Type 2 diabetes mellitus with diabetic autonomic (poly)neuropathy; K31.84 Gastroparesis; T44.0X5A Adverse effect of anticholinesterase agents, initial encounter; N40.0 Benign prostatic hyperplasia without lower urinary tract symptoms
CPT/HCPCS: 0241U-QW; 36415; 71045-TC-FY; 80053; 82962; 83735; 84100; 84484; 85025; 86704; 86705; 86803; 87324; 87340; 87449; 87517; 93005; 93010; 99285-25; G0378; J1644

== ENCOUNTER 2023-01-25 15:03 | Observation (INO) | payer OTHER ==
[2023-01-25 15:29] VITALS: BMI 21.3
[2023-01-25] MEDS ORDERED: ACETAMINOPHEN 1000 MG/100 ML BAG IVPB ONE (15:41)
[2023-01-25] MEDS ORDERED: METOCLOPRAMIDE HCL INJECTION 10 MG/2 ML VIAL IVPUSH ONE (15:41)
[2023-01-25] MEDS ORDERED: FAMOTIDINE 20 MG/50 ML IVPB 20 MG/50 ML MG IVPB ONE ×2 (15:43→15:52)
[2023-01-25] MEDS ORDERED: ACETAMINOPHEN INJECTION 100 ML IVPB ONE (15:51)
[2023-01-25] MEDS ORDERED: METOCLOPRAMIDE HCL INJECTION 10 MG/2 ML VIAL ONE (15:51)
[2023-01-25] MEDS ORDERED: HALOPERIDOL LACTATE 5 MG/ML IM ONE ×2 (15:53→16:28)
[2023-01-25 17:03] LABS: BASO % 0.2 % (0-2.0); HEMATOCRIT 42.7 % (35.4-49); HEMOGLOBIN 14.3 GM/dL (11.7-16.9); LYMPH % 5.7 % (8-40); MCH 32.3 pg (25.7-33.7); MCHC 33.5 g/dl (32.0-35.9); MEAN CELL VOLUME 96.3 fl (80-96); MEAN PLT VOLUME 8.8 fl (7.5-11.1); MONO % 5.7 % (3.8-10.2); NEUT % 88.4 % (42.8-82.8); PLATELET COUNT 237 10^3/uL (134-434); RBC 4.43 M/mm3 (4.00-5.60); RDW 16.2 % (11.9-15.9); WHITE BLOOD COUNT 19.4 K/mm3 (4.0-10.0)
[2023-01-25 17:31] LABS: CHLORIDE 85 mmol/L (98-107); SODIUM 131 mmol/L (136-145)
[2023-01-25 17:33] LABS: CALCIUM 9.2 mg/dL (8.5-10.1)
[2023-01-25 17:34] LABS: ALBUMIN 3.8 g/dl (3.4-5.0); BLOOD UREA NITROGEN 51.1 mg/dL (7-18); CO2 42 mmol/L (21-32); GLUCOSE,RANDOM 153 mg/dL (74-106); MAGNESIUM 2.9 mg/dL (1.8-2.4)
[2023-01-25 17:38] LABS: TOT PROT 9.7 g/dl (6.4-8.2)
[2023-01-25 17:40] LABS: ALK PHOS 136 U/L (45-117)
[2023-01-25 18:22] LABS: ANION GAP 4 MMOL/L (8-16); CREATININE 11.3 mg/dL (0.55-1.3); POTASSIUM > 10.0 mmol/L (3.5-5.1); SGOT/AST 103 U/L (15-37); SGPT/ALT 35 U/L (13-61)
[2023-01-25 20:25] LABS: BASO % 0.1 % (0-2.0); HEMOGLOBIN 13.7 GM/dL (11.7-16.9); LYMPH % 8.7 % (8-40); MCH 31.9 pg (25.7-33.7); MCHC 33.4 g/dl (32.0-35.9); MEAN CELL VOLUME 95.5 fl (80-96); MEAN PLT VOLUME 8.1 fl (7.5-11.1); NEUT % 84.2 % (42.8-82.8); PLATELET COUNT 213 10^3/uL (134-434); RDW 15.5 % (11.9-15.9)
[2023-01-25 21:11] LABS: CHLORIDE 90 mmol/L (98-107); POTASSIUM 3.2 mmol/L (3.5-5.1); SODIUM 144 mmol/L (136-145)
[2023-01-25 21:12] LABS: CALCIUM 9.3 mg/dL (8.5-10.1)
[2023-01-25 21:13] LABS: ANION GAP 13 MMOL/L (8-16); BLOOD UREA NITROGEN 53.7 mg/dL (7-18); CO2 42 mmol/L (21-32); GLUCOSE,RANDOM 109 mg/dL (74-106)
[2023-01-25 21:19] LABS: CREATININE 11.2 mg/dL (0.55-1.3)
[2023-01-26] MEDS: INSULIN SLIDING SCALE (NOVOLOG) 1 VIAL SQ SCH ×2 (07:00→16:10)
[2023-01-26 07:25] LABS: HEMOGLOBIN 12.7 GM/dL (11.7-16.9); MCH 31.8 pg (25.7-33.7); MCHC 32.7 g/dl (32.0-35.9); MEAN CELL VOLUME 97.4 fl (80-96); PLATELET COUNT 196 10^3/uL (134-434); RDW 15.5 % (11.9-15.9); WHITE BLOOD COUNT 16.7 K/mm3 (4.0-10.0)
[2023-01-26 07:40] LABS: CHLORIDE 84 mmol/L (98-107); POTASSIUM 3.4 mmol/L (3.5-5.1); SODIUM 137 mmol/L (136-145)
[2023-01-26 07:46] LABS: ALBUMIN 3.7 g/dl (3.4-5.0); ANION GAP 15 MMOL/L (8-16); CALCIUM 8.3 mg/dL (8.5-10.1); CO2 39 mmol/L (21-32)
[2023-01-26 07:47] LABS: BLOOD UREA NITROGEN 55.3 mg/dL (7-18); GLUCOSE,RANDOM 101 mg/dL (74-106); MAGNESIUM 2.3 mg/dL (1.8-2.4)
[2023-01-26] MEDS ORDERED: SODIUM CHLORIDE 250 ML IV PRN (07:49)
[2023-01-26 07:50] LABS: SGOT/AST 17 U/L (15-37)
[2023-01-26 07:51] LABS: BILIRUBIN,TOTAL 0.6 mg/dL (0.2-1)
[2023-01-26 07:52] LABS: ALK PHOS 113 U/L (45-117); SGPT/ALT 18 U/L (13-61)
[2023-01-26 07:53] LABS: CREATININE 11.9 mg/dL (0.55-1.3); TOT PROT 7.4 g/dl (6.4-8.2)
[2023-01-26 08:49] VITALS: RESP 18; TEMP 98
[2023-01-26] MEDS ORDERED: APREPITANT PO SCH (10:00)
[2023-01-26 11:36] VITALS: BP 110/70; PULSE 87
[2023-01-26] MEDS ORDERED: HEPARIN NA (PORCINE) 5,000 UNITS/ML 1ML VIAL ONE (11:52)
[2023-01-26] MEDS ORDERED: PREGABALIN 25 MG CAPSULE ONE (11:52)
[2023-01-26] MEDS: HEPARIN NA (PORCINE) 5,000 UNITS/ML 1ML VIAL SQ SCH ×2 (11:53→16:11)
[2023-01-26] MEDS: PREGABALIN 25 MG CAPSULE PO SCH ×2 (11:53→16:11)
[2023-01-26] MEDS: PYRIDOSTIGMINE BROMIDE 60 MG TABLET PO SCH ×2 (11:53→16:10)
== END 2023-01-26 15:39 | disposition home or self-care (01) ==
LOC: JER 15:03 → JERBED 19:30
PROVIDERS: ADMIT Internal Medicine; ATTEND Internal Medicine
PROC: 3E033GC Introduction of Other Therapeutic Substance into Peripheral Vein, Percutaneous Approach (ICD-10-PCS; principal; 2023-01-25)
PROC: 3E033NZ Introduction of Analgesics, Hypnotics, Sedatives into Peripheral Vein, Percutaneous Approach (ICD-10-PCS; 2023-01-25)
PROC: 3E023GC Introduction of Other Therapeutic Substance into Muscle, Percutaneous Approach (ICD-10-PCS; 2023-01-25)
DX: K31.84 Gastroparesis (principal); E11.40 Type 2 diabetes mellitus with diabetic neuropathy, unspecified; I11.0 Hypertensive heart disease with heart failure; N18.6 End stage renal disease; E78.5 Hyperlipidemia, unspecified; K22.6 Gastro-esophageal laceration-hemorrhage syndrome; Z87.891 Personal history of nicotine dependence; F41.8 Other specified anxiety disorders; K59.00 Constipation, unspecified; K92.9 Disease of digestive system, unspecified; Z99.2 Dependence on renal dialysis; Z89.422 Acquired absence of other left toe(s); Z89.421 Acquired absence of other right toe(s)
CPT/HCPCS: 0241U-QW; 36415; 71045-TC-FY; 80048; 80053; 82962; 83036; 83690; 83735; 84100; 85025; 85027; 86704; 86705; 86803; 87340; 87517; 93005; 93010; 96365; 96372; 96375; 99285-25; G0378; J1644

== ENCOUNTER 2023-02-15 19:28 | Inpatient (IN) | payer OTHER ==
[2023-02-15] MEDS ORDERED: ONDANSETRON 4 MG/2 ML VIAL IVPUSH ONE (22:30)
[2023-02-15] MEDS ORDERED: ACETAMINOPHEN 1000 MG/100 ML BAG IVPB ONE (22:30)
[2023-02-15] MEDS ORDERED: FAMOTIDINE 20 MG/50 ML IVPB 20 MG/50 ML MG IVPB ONE ×2 (22:30→22:32)
[2023-02-15] MEDS ORDERED: MAG HYDROX/AL HYDROX/SIMETH 30 ML UNIT-DOSE CUP PO ONE (22:31)
[2023-02-15] MEDS ORDERED: ACETAMINOPHEN INJECTION 100 ML IVPB ONE (22:32)
[2023-02-15] MEDS ORDERED: ONDANSETRON 4 MG/2 ML VIAL ONE (22:32)
[2023-02-15 22:49] LABS: BASO % 0.3 % (0-2.0); EOS % 0.2 % (0-4.5); HEMATOCRIT 39.3 % (35.4-49); HEMOGLOBIN 13.4 GM/dL (11.7-16.9); LYMPH % 11.9 % (8-40); MCH 32.2 pg (25.7-33.7); MEAN CELL VOLUME 94.6 fl (80-96); MEAN PLT VOLUME 8.7 fl (7.5-11.1); NEUT % 81.6 % (42.8-82.8); PLATELET COUNT 215 10^3/uL (134-434); RBC 4.16 M/mm3 (4.00-5.60); RDW 14.8 % (11.9-15.9); WHITE BLOOD COUNT 18.6 K/mm3 (4.0-10.0)
[2023-02-15 22:55] LABS: INR 1.09 (0.83-1.09); PROTHROMBIN TIME (PATIENT) 12.6 SEC (9.7-13.0)
[2023-02-15] MEDS ORDERED: DICYCLOMINE HCL 20 MG/2 ML AMPUL IM ONE (22:56)
[2023-02-15 22:58] LABS: ACTIVATED PTT 27.9 SECONDS (25.2-36.5)
[2023-02-15 23:17] LABS: POTASSIUM 3.2 mmol/L (3.5-5.1)
[2023-02-15 23:20] LABS: ALBUMIN 3.5 g/dl (3.4-5.0); CALCIUM 8.8 mg/dL (8.5-10.1); MAGNESIUM 1.9 mg/dL (1.8-2.4)
[2023-02-15 23:23] LABS: CREATININE 6.7 mg/dL (0.55-1.3); PHOSPHOROUS 3.7 mg/dL (2.5-4.9)
[2023-02-15 23:25] LABS: BILIRUBIN,TOTAL 0.3 mg/dL (0.2-1); TOT PROT 7.5 g/dl (6.4-8.2)
[2023-02-16] MEDS ORDERED: fentaNYL CITRATE 250 MCG/5 ML VIAL ONE (00:41)
[2023-02-16] MEDS ORDERED: HEPARIN NA (PORCINE) 5,000 UNITS/ML 1ML VIAL ONE (06:47)
[2023-02-16] MEDS: HEPARIN NA (PORCINE) 5,000 UNITS/ML 1ML VIAL SQ SCH ×3 (06:50→22:21)
[2023-02-16] MEDS ORDERED: POTASSIUM CHLORIDE ORAL LIQUID 20 MEQ/15 ML PO ONE (07:04)
[2023-02-16] MEDS ORDERED: POTASSIUM CHLORIDE ORAL LIQUID 20 MEQ/15 ML ONE (07:23)
[2023-02-16 08:58] LABS: BASO % 0.1 % (0-2.0); EOS % 0.4 % (0-4.5); HEMATOCRIT 37.3 % (35.4-49); HEMOGLOBIN 12.2 GM/dL (11.7-16.9); LYMPH % 12.5 % (8-40); MCH 31.2 pg (25.7-33.7); MCHC 32.6 g/dl (32.0-35.9); MEAN CELL VOLUME 95.8 fl (80-96); MEAN PLT VOLUME 8.6 fl (7.5-11.1); PLATELET COUNT 213 10^3/uL (134-434); RBC 3.89 M/mm3 (4.00-5.60); RDW 14.5 % (11.9-15.9); WHITE BLOOD COUNT 13.9 K/mm3 (4.0-10.0)
[2023-02-16 09:20] LABS: CHLORIDE 102 mmol/L (98-107); POTASSIUM 3.5 mmol/L (3.5-5.1); SODIUM 138 mmol/L (136-145)
[2023-02-16 09:22] LABS: CALCIUM 8.6 mg/dL (8.5-10.1)
[2023-02-16 09:23] LABS: ALBUMIN 3.2 g/dl (3.4-5.0); ANION GAP 7 mmol/L (4-13); CO2 29 mmol/L (21-32); GLUCOSE,RANDOM 117 mg/dL (74-106); MAGNESIUM 1.9 mg/dL (1.8-2.4)
[2023-02-16 09:26] LABS: PHOSPHOROUS 5.2 mg/dL (2.5-4.9); SGOT/AST 6 U/L (15-37); SGPT/ALT 7 U/L (13-61)
[2023-02-16 09:27] LABS: BILIRUBIN,TOTAL 0.3 mg/dL (0.2-1); BLOOD UREA NITROGEN 36.3 mg/dL (7-18)
[2023-02-16 09:28] LABS: TOT PROT 6.7 g/dl (6.4-8.2)
[2023-02-16 09:29] LABS: ALK PHOS 92 U/L (45-117)
[2023-02-16 09:32] LABS: CREATININE 7.8 mg/dL (0.55-1.3)
[2023-02-16] MEDS: MIDODRINE HCL 5 MG TABLET PO SCH ×2 (09:44→18:05)
[2023-02-16] MEDS: METOCLOPRAMIDE HCL INJECTION 10 MG/2 ML VIAL IVPUSH PRN (12:55)
[2023-02-16] MEDS: PANTOPRAZOLE SODIUM 40 MG VIAL IVPUSH SCH (12:55)
[2023-02-16] MEDS ORDERED: SODIUM CHLORIDE 250 ML IV PRN (14:21)
[2023-02-16] MEDS ORDERED: ACETAMINOPHEN 1000 MG/100 ML BAG IVPB PRN (19:30)
[2023-02-16] MEDS: PREGABALIN 25 MG CAPSULE PO SCH (22:21)
[2023-02-17] MEDS: HEPARIN NA (PORCINE) 5,000 UNITS/ML 1ML VIAL SQ SCH ×3 (05:30→21:45)
[2023-02-17] MEDS: PANTOPRAZOLE SODIUM 40 MG VIAL IVPUSH SCH (09:02)
[2023-02-17] MEDS: MIDODRINE HCL 5 MG TABLET PO SCH ×2 (09:02→17:01)
[2023-02-17 11:24] LABS: HEMOGLOBIN 10.9 GM/dL (11.7-16.9); MCH 31.1 pg (25.7-33.7); MCHC 32.2 g/dl (32.0-35.9); MEAN CELL VOLUME 96.6 fl (80-96); PLATELET COUNT 225 10^3/uL (134-434); RBC 3.52 M/mm3 (4.00-5.60); RDW 14.3 % (11.9-15.9); WHITE BLOOD COUNT 8.9 K/mm3 (4.0-10.0)
[2023-02-17] MEDS: POLYETHYLENE GLYCOL (HEALTHYLAX) 3350 17 GM PACKET PO SCH ×2 (11:34→21:46)
[2023-02-17 11:47] LABS: CHLORIDE 100 mmol/L (98-107); POTASSIUM 3.4 mmol/L (3.5-5.1); SODIUM 137 mmol/L (136-145)
[2023-02-17 11:49] LABS: ALBUMIN 2.7 g/dl (3.4-5.0); ANION GAP 10 mmol/L (4-13); BLOOD UREA NITROGEN 44.2 mg/dL (7-18); CO2 28 mmol/L (21-32); GLUCOSE,RANDOM 167 mg/dL (74-106); LIPASE 107 U/L (73-393)
[2023-02-17 11:52] LABS: SGOT/AST 6 U/L (15-37); SGPT/ALT 7 U/L (13-61)
[2023-02-17 11:53] LABS: BILIRUBIN,TOTAL 0.2 mg/dL (0.2-1); TOT PROT 5.9 g/dl (6.4-8.2)
[2023-02-17 11:54] LABS: ALK PHOS 79 U/L (45-117)
[2023-02-17] MEDS: PREGABALIN 25 MG CAPSULE PO SCH (21:46)
[2023-02-18] MEDS: HEPARIN NA (PORCINE) 5,000 UNITS/ML 1ML VIAL SQ SCH ×3 (05:54→22:18)
[2023-02-18] MEDS: METOCLOPRAMIDE HCL INJECTION 10 MG/2 ML VIAL IVPUSH PRN ×2 (05:56→13:33)
[2023-02-18 08:31] LABS: BASO % 0.4 % (0-2.0); EOS % 0.9 % (0-4.5); HEMATOCRIT 35.5 % (35.4-49); HEMOGLOBIN 11.8 GM/dL (11.7-16.9); LYMPH % 22.6 % (8-40); MCH 32.1 pg (25.7-33.7); MCHC 33.3 g/dl (32.0-35.9); MEAN CELL VOLUME 96.2 fl (80-96); MEAN PLT VOLUME 8.2 fl (7.5-11.1); NEUT % 68.1 % (42.8-82.8); PLATELET COUNT 228 10^3/uL (134-434); RBC 3.69 M/mm3 (4.00-5.60); RDW 14.5 % (11.9-15.9); WHITE BLOOD COUNT 8.4 K/mm3 (4.0-10.0)
[2023-02-18 08:45] LABS: CHLORIDE 100 mmol/L (98-107); POTASSIUM 3.3 mmol/L (3.5-5.1); SODIUM 137 mmol/L (136-145)
[2023-02-18 08:50] LABS: ANION GAP 7 mmol/L (4-13); BLOOD UREA NITROGEN 28.2 mg/dL (7-18); CALCIUM 8.3 mg/dL (8.5-10.1); CO2 31 mmol/L (21-32); GLUCOSE,RANDOM 109 mg/dL (74-106); MAGNESIUM 1.8 mg/dL (1.8-2.4)
[2023-02-18 08:53] LABS: SGOT/AST 6 U/L (15-37); SGPT/ALT 9 U/L (13-61)
[2023-02-18 08:55] LABS: BILIRUBIN,TOTAL 0.6 mg/dL (0.2-1); TOT PROT 6.2 g/dl (6.4-8.2)
[2023-02-18 08:56] LABS: ALK PHOS 83 U/L (45-117)
[2023-02-18] MEDS: POLYETHYLENE GLYCOL (HEALTHYLAX) 3350 17 GM PACKET PO SCH ×2 (08:59→22:18)
[2023-02-18] MEDS: PANTOPRAZOLE SODIUM 40 MG VIAL IVPUSH SCH (08:59)
[2023-02-18] MEDS: MIDODRINE HCL 5 MG TABLET PO SCH ×2 (08:59→17:09)
[2023-02-18 09:12] LABS: CREATININE 8.2 mg/dL (0.55-1.3)
[2023-02-18] MEDS ORDERED: POTASSIUM CHLORIDE ORAL LIQUID 20 MEQ/15 ML PO ONE (17:25)
[2023-02-18] MEDS: PREGABALIN 25 MG CAPSULE PO SCH (22:18)
[2023-02-18] MEDS: MAGNESIUM OXIDE 400 MG TABLET (FP) PO SCH (22:18)
[2023-02-19] MEDS: HEPARIN NA (PORCINE) 5,000 UNITS/ML 1ML VIAL SQ SCH ×3 (06:24→22:24)
[2023-02-19 07:58] LABS: CHLORIDE 99 mmol/L (98-107); POTASSIUM 3.6 mmol/L (3.5-5.1); SODIUM 136 mmol/L (136-145)
[2023-02-19 08:01] LABS: ALBUMIN 2.9 g/dl (3.4-5.0); ANION GAP 5 mmol/L (4-13); BLOOD UREA NITROGEN 33.2 mg/dL (7-18); CO2 32 mmol/L (21-32); GLUCOSE,RANDOM 106 mg/dL (74-106); LIPASE 365 U/L (73-393)
[2023-02-19 08:03] LABS: SGPT/ALT 8 U/L (13-61)
[2023-02-19 08:04] LABS: SGOT/AST 8 U/L (15-37)
[2023-02-19 08:05] LABS: BILIRUBIN,TOTAL 0.3 mg/dL (0.2-1); TOT PROT 5.9 g/dl (6.4-8.2)
[2023-02-19 08:06] LABS: ALK PHOS 79 U/L (45-117)
[2023-02-19 08:21] LABS: CREATININE 10.1 mg/dL (0.55-1.3)
[2023-02-19] MEDS: MAGNESIUM OXIDE 400 MG TABLET (FP) PO SCH ×2 (09:00→22:24)
[2023-02-19] MEDS: PANTOPRAZOLE SODIUM 40 MG VIAL IVPUSH SCH (09:00)
[2023-02-19] MEDS: MIDODRINE HCL 5 MG TABLET PO SCH ×2 (09:00→17:10)
[2023-02-19] MEDS: POLYETHYLENE GLYCOL (HEALTHYLAX) 3350 17 GM PACKET PO SCH ×2 (09:00→22:24)
[2023-02-19] MEDS ORDERED: EPOETIN ALFA-EPBX 4,000 UNIT/ML VIAL SQ ONE (12:05)
[2023-02-19] MEDS: PREGABALIN 25 MG CAPSULE PO SCH (22:24)
[2023-02-20] MEDS: HEPARIN NA (PORCINE) 5,000 UNITS/ML 1ML VIAL SQ SCH ×3 (06:21→21:43)
[2023-02-20 09:30] LABS: BASO % 0.5 % (0-2.0); EOS % 1.5 % (0-4.5); HEMATOCRIT 34.2 % (35.4-49); HEMOGLOBIN 11.7 GM/dL (11.7-16.9); LYMPH % 21.4 % (8-40); MCH 32.3 pg (25.7-33.7); MCHC 34.1 g/dl (32.0-35.9); MEAN CELL VOLUME 94.8 fl (80-96); MONO % 8.6 % (3.8-10.2); PLATELET COUNT 240 10^3/uL (134-434); RBC 3.61 M/mm3 (4.00-5.60); RDW 14.9 % (11.9-15.9); WHITE BLOOD COUNT 8.3 K/mm3 (4.0-10.0)
[2023-02-20 09:49] LABS: CHLORIDE 100 mmol/L (98-107); POTASSIUM 3.9 mmol/L (3.5-5.1); SODIUM 136 mmol/L (136-145)
[2023-02-20 09:54] LABS: ALBUMIN 3.1 g/dl (3.4-5.0); ANION GAP 9 mmol/L (4-13); CO2 27 mmol/L (21-32); GLUCOSE,RANDOM 120 mg/dL (74-106)
[2023-02-20 09:55] LABS: BLOOD UREA NITROGEN 44.1 mg/dL (7-18)
[2023-02-20 09:56] LABS: CALCIUM 8.3 mg/dL (8.5-10.1)
[2023-02-20 09:58] LABS: MAGNESIUM 2.1 mg/dL (1.8-2.4)
[2023-02-20 09:59] LABS: SGPT/ALT 9 U/L (13-61)
[2023-02-20 10:00] LABS: SGOT/AST 8 U/L (15-37)
[2023-02-20 10:01] LABS: BILIRUBIN,TOTAL 0.2 mg/dL (0.2-1); TOT PROT 6.1 g/dl (6.4-8.2)
[2023-02-20 10:02] LABS: ALK PHOS 83 U/L (45-117)
[2023-02-20] MEDS: PANTOPRAZOLE SODIUM 40 MG VIAL IVPUSH SCH (10:48)
[2023-02-20] MEDS: POLYETHYLENE GLYCOL (HEALTHYLAX) 3350 17 GM PACKET PO SCH ×2 (10:48→21:43)
[2023-02-20] MEDS: MIDODRINE HCL 5 MG TABLET PO SCH ×2 (10:48→18:10)
[2023-02-20 10:53] LABS: CREATININE 11.9 mg/dL (0.55-1.3); LIPASE 1426 U/L (73-393)
[2023-02-20] MEDS ORDERED: HYDROmorphone HCL 2 MG TABLET PO PRN (16:31)
[2023-02-20] MEDS ORDERED: ACETAMINOPHEN 325 MG TABLET (FP) PO PRN (16:32)
[2023-02-20] MEDS ORDERED: ACETAMINOPHEN WITH CODEINE 300MG/30MG TABLET PO PRN (16:32)
[2023-02-20] MEDS: PREGABALIN 25 MG CAPSULE PO SCH (21:43)
[2023-02-20] MEDS ORDERED: SENNOSIDES 8.8 MG/5 ML SYRUP PO SCH (22:00)
[2023-02-20 22:38] VITALS: RESP 18
[2023-02-21] MEDS: HEPARIN NA (PORCINE) 5,000 UNITS/ML 1ML VIAL SQ SCH ×2 (06:11→13:35)
[2023-02-21 07:59] LABS: BASO % 0.3 % (0-2.0); EOS % 1.9 % (0-4.5); HEMATOCRIT 35.5 % (35.4-49); HEMOGLOBIN 11.4 GM/dL (11.7-16.9); MCHC 32.2 g/dl (32.0-35.9); MEAN CELL VOLUME 96.4 fl (80-96); MEAN PLT VOLUME 8.4 fl (7.5-11.1); MONO % 8.7 % (3.8-10.2); NEUT % 61.1 % (42.8-82.8); PLATELET COUNT 231 10^3/uL (134-434); RBC 3.68 M/mm3 (4.00-5.60); RDW 14.7 % (11.9-15.9); WHITE BLOOD COUNT 8.5 K/mm3 (4.0-10.0)
[2023-02-21] MEDS: MIDODRINE HCL 5 MG TABLET PO SCH ×2 (08:20→13:48)
[2023-02-21 08:21] LABS: CHLORIDE 100 mmol/L (98-107); POTASSIUM 4.2 mmol/L (3.5-5.1); SODIUM 137 mmol/L (136-145)
[2023-02-21 08:22] LABS: CALCIUM 8.4 mg/dL (8.5-10.1)
[2023-02-21 08:23] LABS: ALBUMIN 2.9 g/dl (3.4-5.0); ANION GAP 12 mmol/L (4-13); BLOOD UREA NITROGEN 52.4 mg/dL (7-18); CO2 26 mmol/L (21-32); GLUCOSE,RANDOM 78 mg/dL (74-106); MAGNESIUM 2.5 mg/dL (1.8-2.4)
[2023-02-21 08:26] LABS: SGOT/AST 7 U/L (15-37); SGPT/ALT 9 U/L (13-61)
[2023-02-21 08:28] LABS: BILIRUBIN,TOTAL 0.4 mg/dL (0.2-1); TOT PROT 5.7 g/dl (6.4-8.2)
[2023-02-21 08:29] LABS: ALK PHOS 81 U/L (45-117); CREATININE 12.7 mg/dL (0.55-1.3)
[2023-02-21] MEDS ORDERED: SODIUM CHLORIDE 250 ML IV PRN ×2 (08:56→13:01)
[2023-02-21] MEDS: POLYETHYLENE GLYCOL (HEALTHYLAX) 3350 17 GM PACKET PO SCH (13:35)
[2023-02-21] MEDS: PANTOPRAZOLE SODIUM 40 MG VIAL IVPUSH SCH (13:37)
[2023-02-21] MEDS ORDERED: POLYETHYLENE GLYCOL (HEALTHYLAX) 3350 17 GM PACKET PO SCH (13:44)
[2023-02-21 14:21] VITALS: BMI 19.5
[2023-02-21 15:30] VITALS: BP 128/75; PULSE 70; TEMP 97.5
== END 2023-02-21 17:00 | disposition home or self-care (01) | DRG 438 ==
LOC: JER 19:28 → JERBED 02-16 00:30 → OBSVTOIN 02-16 04:23 → J7W 02-16 08:54
PROVIDERS: ADMIT Internal Medicine; ATTEND Internal Medicine
PROC: 5A1D70Z Performance of Urinary Filtration, Intermittent, Less than 6 Hours Per Day (ICD-10-PCS; principal; 2023-02-17)
PROC: 5A1D70Z Performance of Urinary Filtration, Intermittent, Less than 6 Hours Per Day (ICD-10-PCS; 2023-02-21)
DX: K85.90 Acute pancreatitis without necrosis or infection, unspecified (principal); N18.6 End stage renal disease; I13.2 Hypertensive heart and chronic kidney disease with heart failure and with stage 5 chronic kidney disease, or end stage renal disease; I50.32 Chronic diastolic (congestive) heart failure; E10.43 Type 1 diabetes mellitus with diabetic autonomic (poly)neuropathy; K31.84 Gastroparesis; E10.22 Type 1 diabetes mellitus with diabetic chronic kidney disease; Z99.2 Dependence on renal dialysis; E78.5 Hyperlipidemia, unspecified; N40.0 Benign prostatic hyperplasia without lower urinary tract symptoms; R55 Syncope and collapse; K59.00 Constipation, unspecified; R80.9 Proteinuria, unspecified; E87.6 Hypokalemia; E10.42 Type 1 diabetes mellitus with diabetic polyneuropathy; F41.8 Other specified anxiety disorders; D63.1 Anemia in chronic kidney disease; Z86.718 Personal history of other venous thrombosis and embolism; Z86.711 Personal history of pulmonary embolism; Z89.422 Acquired absence of other left toe(s); Z89.421 Acquired absence of other right toe(s)
CPT/HCPCS: 36415; 71045-TC-FY; 74176-TC; 80053; 82962; 83690; 83735; 83880; 84100; 84484; 85025; 85027; 85610; 85730; 86140; 93005; 93010; 93306-TC; 99285-25; G0378; J1644

== ENCOUNTER 2023-03-19 13:17 | Inpatient (IN) | payer OTHER ==
[2023-03-19] MEDS ORDERED: SODIUM CHLORIDE 0.9% 500 ML INFUS.BAG IV ONE (13:38)
[2023-03-19] MEDS ORDERED: ACETAMINOPHEN 1000 MG/100 ML BAG IVPB ONE (13:48)
[2023-03-19 14:37] LABS: BASO % 0.4 % (0-2.0); HEMATOCRIT 39.3 % (35.4-49); HEMOGLOBIN 12.5 GM/dL (11.7-16.9); MCH 30.8 pg (25.7-33.7); MCHC 31.7 g/dl (32.0-35.9); MEAN CELL VOLUME 97.1 fl (80-96); MEAN PLT VOLUME 8.5 fl (7.5-11.1); MONO % 10.5 % (3.8-10.2); NEUT % 75.1 % (42.8-82.8); PLATELET COUNT 247 10^3/uL (134-434); RBC 4.05 M/mm3 (4.00-5.60); WHITE BLOOD COUNT 13.3 K/mm3 (4.0-10.0)
[2023-03-19] MEDS ORDERED: ACETAMINOPHEN INJECTION 100 ML IVPB ONE (14:42)
[2023-03-19 15:00] LABS: CHLORIDE 97 mmol/L (98-107); SODIUM 141 mmol/L (136-145)
[2023-03-19 15:02] LABS: ALBUMIN 3.8 g/dl (3.4-5.0); CALCIUM 9.4 mg/dL (8.5-10.1)
[2023-03-19 15:03] LABS: ANION GAP 16 mmol/L (4-13); BLOOD UREA NITROGEN 40.1 mg/dL (7-18); CO2 27 mmol/L (21-32); GLUCOSE,RANDOM 133 mg/dL (74-106); MAGNESIUM 2.4 mg/dL (1.8-2.4)
[2023-03-19 15:05] LABS: SGOT/AST 17 U/L (15-37); SGPT/ALT 19 U/L (13-61)
[2023-03-19 15:07] LABS: ALK PHOS 95 U/L (45-117); BILIRUBIN,TOTAL 0.3 mg/dL (0.2-1); TOT PROT 7.7 g/dl (6.4-8.2)
[2023-03-19 15:12] LABS: CREATININE 9.5 mg/dL (0.55-1.3); LIPASE 1539 U/L (73-393)
[2023-03-19] MEDS ORDERED: ONDANSETRON 4 MG/2 ML VIAL IVPUSH ONE (15:21)
[2023-03-19] MEDS ORDERED: ONDANSETRON 4 MG/2 ML VIAL ONE (15:28)
[2023-03-19 15:45] LABS: LDH 263 U/L (87-246)
[2023-03-19 15:45] LABS: VENOUS BASE EXCESS 2.4 mmol/L (-2-2); VENOUS O2 SATURATION 46.5 % (70-80); VENOUS PCO2 53.8 mmHg (38-52); VENOUS PH 7.351 (7.310-7.410)
[2023-03-19 15:52] LABS: ACTIVATED PTT 23.8 SECONDS (25.2-36.5); INR 1.09 (0.83-1.09); PROTHROMBIN TIME (PATIENT) 12.6 SEC (9.7-13.0)
[2023-03-19] MEDS ORDERED: HYDROmorphone HCl 2 MG/ML VIAL IVPUSH ONE ×2 (17:21→22:47)
[2023-03-19] MEDS ORDERED: METOCLOPRAMIDE HCL INJECTION 10 MG/2 ML VIAL IVPB ONE (17:24)
[2023-03-19] MEDS ORDERED: HYDROmorphone HCl 2 MG/ML VIAL ONE ×3 (17:33→22:51)
[2023-03-19] MEDS ORDERED: METOCLOPRAMIDE HCL INJECTION 10 MG/2 ML VIAL ONE (17:33)
[2023-03-19] MEDS ORDERED: SODIUM CHLORIDE 250 ML IV PRN (18:32)
[2023-03-19] MEDS ORDERED: HYDROmorphone HCl 2 MG/ML VIAL IVPB ONE (18:35)
[2023-03-19] MEDS: KCL 10 MEQ IVPB 10 MEQ/100 ML INFUS.BAG IVPB SCH ×2 (19:12→20:23)
[2023-03-19 21:20] LABS: CHOLESTEROL 255 mg/dL (50-200)
[2023-03-19 21:22] LABS: HDL CHOLESTEROL 88 mg/dL (40-60); LDL CHOLESTEROL (ONLY SJRH) 142 mg/dL (5-100)
[2023-03-19 22:46] LABS: HEMATOCRIT 37.1 % (35.4-49); HEMOGLOBIN 11.9 GM/dL (11.7-16.9); MCH 30.9 pg (25.7-33.7); MEAN CELL VOLUME 96.4 fl (80-96); MEAN PLT VOLUME 8.3 fl (7.5-11.1); PLATELET COUNT 242 10^3/uL (134-434); RBC 3.84 M/mm3 (4.00-5.60); WHITE BLOOD COUNT 13.2 K/mm3 (4.0-10.0)
[2023-03-20] MEDS: HEPARIN NA (PORCINE) 5,000 UNITS/ML 1ML VIAL SQ SCH ×3 (06:42→21:18)
[2023-03-20] MEDS: INSULIN SLIDING SCALE (NOVOLOG) 1 VIAL SQ SCH ×4 (06:47→21:19)
[2023-03-20] MEDS ORDERED: ACETAMINOPHEN 1000 MG/100 ML BAG IVPB PRN (07:47)
[2023-03-20 09:33] LABS: HEMATOCRIT 34.1 % (35.4-49); HEMOGLOBIN 11.4 GM/dL (11.7-16.9); MCH 31.5 pg (25.7-33.7); MCHC 33.3 g/dl (32.0-35.9); MEAN CELL VOLUME 94.7 fl (80-96); MEAN PLT VOLUME 8.5 fl (7.5-11.1); PLATELET COUNT 236 10^3/uL (134-434); RBC 3.61 M/mm3 (4.00-5.60); RDW 15.1 % (11.9-15.9); WHITE BLOOD COUNT 12.7 K/mm3 (4.0-10.0)
[2023-03-20 09:55] LABS: CHLORIDE 97 mmol/L (98-107); SODIUM 136 mmol/L (136-145)
[2023-03-20 10:00] LABS: CALCIUM 8.5 mg/dL (8.5-10.1)
[2023-03-20] MEDS ORDERED: MIDODRINE HCL 5 MG TABLET PO SCH (10:00)
[2023-03-20 10:01] LABS: ALBUMIN 3.2 g/dl (3.4-5.0); BLOOD UREA NITROGEN 47.7 mg/dL (7-18); CO2 28 mmol/L (21-32); GLUCOSE,RANDOM 168 mg/dL (74-106); MAGNESIUM 2.3 mg/dL (1.8-2.4)
[2023-03-20 10:03] LABS: PHOSPHOROUS 6.5 mg/dL (2.5-4.9); SGOT/AST 10 U/L (15-37)
[2023-03-20 10:04] LABS: BILIRUBIN,TOTAL 0.6 mg/dL (0.2-1); SGPT/ALT 16 U/L (13-61); TOT PROT 6.6 g/dl (6.4-8.2)
[2023-03-20 10:06] LABS: ALK PHOS 85 U/L (45-117)
[2023-03-20 10:09] LABS: ANION GAP 12 mmol/L (4-13); CREATININE 11.5 mg/dL (0.55-1.3); POTASSIUM 2.9 mmol/L (3.5-5.1)
[2023-03-20] MEDS ORDERED: KCL 10 MEQ IVPB 10 MEQ/100 ML INFUS.BAG IVPB SCH (11:15)
[2023-03-20] MEDS: KCL 10 MEQ IVPB 10 MEQ/100 ML INFUS.BAG IVPB SCH ×3 (13:31→16:51)
[2023-03-20] MEDS: PYRIDOSTIGMINE BROMIDE 60 MG TABLET PO SCH ×2 (15:18→21:18)
[2023-03-20] MEDS: KETOROLAC TROMETHAMINE 30 MG/1 ML VIAL IVPUSH PRN (15:18)
[2023-03-20] MEDS: PANTOPRAZOLE SODIUM 40 MG VIAL IVPUSH SCH (16:51)
[2023-03-20] MEDS: METOCLOPRAMIDE HCL INJECTION 10 MG/2 ML VIAL IVPUSH SCH ×2 (16:53→22:33)
[2023-03-20] MEDS: MIDODRINE HCL 5 MG TABLET PO SCH (17:54)
[2023-03-20 20:30] LABS: POTASSIUM 3.3 mmol/L (3.5-5.1)
[2023-03-20 20:32] LABS: CALCIUM 8.7 mg/dL (8.5-10.1)
[2023-03-20 20:36] LABS: CREATININE 6.6 mg/dL (0.55-1.3)
[2023-03-20 20:37] LABS: BLOOD UREA NITROGEN 20.3 mg/dL (7-18)
[2023-03-20] MEDS: PREGABALIN 25 MG CAPSULE PO SCH (21:19)
[2023-03-21] MEDS: HEPARIN NA (PORCINE) 5,000 UNITS/ML 1ML VIAL SQ SCH ×3 (05:27→22:03)
[2023-03-21] MEDS: PYRIDOSTIGMINE BROMIDE 60 MG TABLET PO SCH ×3 (05:27→22:13)
[2023-03-21] MEDS: INSULIN SLIDING SCALE (NOVOLOG) 1 VIAL SQ SCH ×3 (06:04→17:35)
[2023-03-21] MEDS: METOCLOPRAMIDE HCL INJECTION 10 MG/2 ML VIAL IVPUSH SCH ×2 (08:37→17:13)
[2023-03-21] MEDS ORDERED: POTASSIUM CHLORIDE ORAL LIQUID 20 MEQ/15 ML PO ONE (10:01)
[2023-03-21 10:32] LABS: BASO % 0.3 % (0-2.0); EOS % 1.2 % (0-4.5); HEMATOCRIT 34.2 % (35.4-49); HEMOGLOBIN 10.9 GM/dL (11.7-16.9); LYMPH % 11.1 % (8-40); MCH 31.4 pg (25.7-33.7); MCHC 31.9 g/dl (32.0-35.9); MEAN CELL VOLUME 98.6 fl (80-96); MEAN PLT VOLUME 8.5 fl (7.5-11.1); MONO % 8.9 % (3.8-10.2); NEUT % 78.5 % (42.8-82.8); PLATELET COUNT 193 10^3/uL (134-434); RBC 3.47 M/mm3 (4.00-5.60); RDW 15.2 % (11.9-15.9); WHITE BLOOD COUNT 10.9 K/mm3 (4.0-10.0)
[2023-03-21 10:52] LABS: CHLORIDE 99 mmol/L (98-107); POTASSIUM 3.5 mmol/L (3.5-5.1); SODIUM 137 mmol/L (136-145)
[2023-03-21] MEDS: PANTOPRAZOLE SODIUM 40 MG VIAL IVPUSH SCH (10:53)
[2023-03-21] MEDS: MIDODRINE HCL 5 MG TABLET PO SCH ×2 (10:53→17:10)
[2023-03-21 11:00] LABS: ALBUMIN 2.9 g/dl (3.4-5.0); ANION GAP 15 mmol/L (4-13); BLOOD UREA NITROGEN 25.8 mg/dL (7-18); CALCIUM 8.1 mg/dL (8.5-10.1); CO2 23 mmol/L (21-32); GLUCOSE,RANDOM 194 mg/dL (74-106)
[2023-03-21 11:03] LABS: BILIRUBIN,TOTAL 0.2 mg/dL (0.2-1); PHOSPHOROUS 3.6 mg/dL (2.5-4.9); SGOT/AST 10 U/L (15-37); SGPT/ALT 15 U/L (13-61)
[2023-03-21 11:05] LABS: ALK PHOS 78 U/L (45-117); CREATININE 8.1 mg/dL (0.55-1.3)
[2023-03-21] MEDS ORDERED: ACETAMINOPHEN 1000 MG/100 ML BAG IVPB PRN (13:46)
[2023-03-21] MEDS: AMINO ACIDS/PROTEIN HYDROLYS 30 ML LIQUID.PKT PO SCH (17:28)
[2023-03-21] MEDS: KETOROLAC TROMETHAMINE 30 MG/1 ML VIAL IVPUSH PRN (17:28)
[2023-03-21] MEDS: PREGABALIN 25 MG CAPSULE PO SCH (22:03)
[2023-03-22] MEDS: INSULIN SLIDING SCALE (NOVOLOG) 1 VIAL SQ SCH ×5 (02:24→23:01)
[2023-03-22] MEDS: METOCLOPRAMIDE HCL INJECTION 10 MG/2 ML VIAL IVPUSH SCH ×4 (04:45→22:36)
[2023-03-22] MEDS: HEPARIN NA (PORCINE) 5,000 UNITS/ML 1ML VIAL SQ SCH ×3 (05:54→22:35)
[2023-03-22] MEDS: PYRIDOSTIGMINE BROMIDE 60 MG TABLET PO SCH ×3 (05:55→22:35)
[2023-03-22] MEDS ORDERED: SODIUM CHLORIDE 250 ML IV PRN (08:08)
[2023-03-22] MEDS ORDERED: EPOETIN ALFA-EPBX 4,000 UNIT/ML VIAL SQ ONE (08:15)
[2023-03-22] MEDS: AMINO ACIDS/PROTEIN HYDROLYS 30 ML LIQUID.PKT PO SCH ×2 (09:38→17:27)
[2023-03-22 11:01] LABS: HEMATOCRIT 33.2 % (35.4-49); HEMOGLOBIN 10.3 GM/dL (11.7-16.9); MCH 30.5 pg (25.7-33.7); MCHC 31.1 g/dl (32.0-35.9); MEAN CELL VOLUME 98.1 fl (80-96); MEAN PLT VOLUME 8.7 fl (7.5-11.1); PLATELET COUNT 202 10^3/uL (134-434); RBC 3.38 M/mm3 (4.00-5.60); RDW 15.3 % (11.9-15.9); WHITE BLOOD COUNT 12.2 K/mm3 (4.0-10.0)
[2023-03-22 11:23] LABS: CHLORIDE 100 mmol/L (98-107); POTASSIUM 3.2 mmol/L (3.5-5.1); SODIUM 136 mmol/L (136-145)
[2023-03-22 11:42] LABS: ANION GAP 12 mmol/L (4-13); BLOOD UREA NITROGEN 38.2 mg/dL (7-18); CO2 24 mmol/L (21-32); GLUCOSE,RANDOM 131 mg/dL (74-106)
[2023-03-22] MEDS ORDERED: POTASSIUM CHLORIDE ORAL LIQUID 20 MEQ/15 ML PO ONE (12:26)
[2023-03-22] MEDS: VITAMIN B COMP W-C 1 EA TABLET (NEPHRO-VITE) PO SCH (14:50)
[2023-03-22] MEDS: MIDODRINE HCL 5 MG TABLET PO SCH ×2 (14:50→18:07)
[2023-03-22] MEDS: PANTOPRAZOLE SODIUM 40 MG VIAL IVPUSH SCH (14:52)
[2023-03-22] MEDS: PREGABALIN 25 MG CAPSULE PO SCH (22:35)
[2023-03-23] MEDS: METOCLOPRAMIDE HCL INJECTION 10 MG/2 ML VIAL IVPUSH SCH ×4 (05:10→23:21)
[2023-03-23] MEDS ORDERED: SIMETHICONE 80 MG TAB.CHEW (FP) PO PRN (05:25)
[2023-03-23] MEDS ORDERED: SODIUM CHLORIDE 500 ML IV STA (05:29)
[2023-03-23] MEDS: HEPARIN NA (PORCINE) 5,000 UNITS/ML 1ML VIAL SQ SCH ×3 (05:51→22:03)
[2023-03-23] MEDS: PYRIDOSTIGMINE BROMIDE 60 MG TABLET PO SCH ×3 (05:51→22:04)
[2023-03-23] MEDS: INSULIN SLIDING SCALE (NOVOLOG) 1 VIAL SQ SCH ×4 (06:07→21:58)
[2023-03-23] MEDS: AMINO ACIDS/PROTEIN HYDROLYS 30 ML LIQUID.PKT PO SCH ×3 (08:46→17:41)
[2023-03-23 09:20] LABS: BASO % 0.1 % (0-2.0); EOS % 0.6 % (0-4.5); HEMATOCRIT 32.3 % (35.4-49); HEMOGLOBIN 10.3 GM/dL (11.7-16.9); MCH 31.1 pg (25.7-33.7); MCHC 31.9 g/dl (32.0-35.9); MEAN CELL VOLUME 97.4 fl (80-96); MEAN PLT VOLUME 8.5 fl (7.5-11.1); MONO % 12.9 % (3.8-10.2); NEUT % 75.4 % (42.8-82.8); PLATELET COUNT 194 10^3/uL (134-434); RBC 3.32 M/mm3 (4.00-5.60); RDW 15.4 % (11.9-15.9); WHITE BLOOD COUNT 16.4 K/mm3 (4.0-10.0)
[2023-03-23] MEDS: PANTOPRAZOLE SODIUM 40 MG VIAL IVPUSH SCH (09:49)
[2023-03-23] MEDS: MIDODRINE HCL 5 MG TABLET PO SCH ×3 (09:49→17:29)
[2023-03-23] MEDS: VITAMIN B COMP W-C 1 EA TABLET (NEPHRO-VITE) PO SCH (09:49)
[2023-03-23 10:11] LABS: CHLORIDE 102 mmol/L (98-107); POTASSIUM 3.1 mmol/L (3.5-5.1); SODIUM 138 mmol/L (136-145)
[2023-03-23 10:35] LABS: ALBUMIN 2.8 g/dl (3.4-5.0); ANION GAP 11 mmol/L (4-13); CALCIUM 7.9 mg/dL (8.5-10.1); CO2 26 mmol/L (21-32); GLUCOSE,RANDOM 120 mg/dL (74-106); MAGNESIUM 2.1 mg/dL (1.8-2.4)
[2023-03-23 10:36] LABS: TOT PROT 5.8 g/dl (6.4-8.2)
[2023-03-23 10:37] LABS: SGPT/ALT 18 U/L (13-61)
[2023-03-23 10:38] LABS: PHOSPHOROUS 2.5 mg/dL (2.5-4.9); SGOT/AST 10 U/L (15-37)
[2023-03-23 10:39] LABS: BILIRUBIN,TOTAL 0.3 mg/dL (0.2-1)
[2023-03-23 10:40] LABS: ALK PHOS 68 U/L (45-117)
[2023-03-23 10:50] LABS: CREATININE 8.1 mg/dL (0.55-1.3)
[2023-03-23] MEDS ORDERED: TRIMETHOBENZAMIDE HCL 200MG/2ML INJ IM PRN (16:12)
[2023-03-23] MEDS: PREGABALIN 25 MG CAPSULE PO SCH (22:04)
[2023-03-24] MEDS: PYRIDOSTIGMINE BROMIDE 60 MG TABLET PO SCH ×3 (06:08→21:38)
[2023-03-24] MEDS: INSULIN SLIDING SCALE (NOVOLOG) 1 VIAL SQ SCH ×4 (06:08→21:39)
[2023-03-24] MEDS: HEPARIN NA (PORCINE) 5,000 UNITS/ML 1ML VIAL SQ SCH ×3 (06:08→21:38)
[2023-03-24] MEDS: METOCLOPRAMIDE HCL INJECTION 10 MG/2 ML VIAL IVPUSH SCH ×3 (08:22→22:34)
[2023-03-24] MEDS: AMINO ACIDS/PROTEIN HYDROLYS 30 ML LIQUID.PKT PO SCH ×2 (08:22→17:31)
[2023-03-24] MEDS: MIDODRINE HCL 5 MG TABLET PO SCH ×4 (08:22→18:03)
[2023-03-24] MEDS ORDERED: EPOETIN ALFA-EPBX 4,000 UNIT/ML VIAL SQ ONE (09:00)
[2023-03-24] MEDS ORDERED: SODIUM CHLORIDE 250 ML IV PRN (09:00)
[2023-03-24 09:45] LABS: BASO % 0.2 % (0-2.0); EOS % 0.9 % (0-4.5); HEMATOCRIT 32.2 % (35.4-49); HEMOGLOBIN 10.3 GM/dL (11.7-16.9); LYMPH % 14.8 % (8-40); MCH 31.2 pg (25.7-33.7); MEAN CELL VOLUME 97.6 fl (80-96); MEAN PLT VOLUME 8.6 fl (7.5-11.1); MONO % 11.5 % (3.8-10.2); NEUT % 72.6 % (42.8-82.8); PLATELET COUNT 202 10^3/uL (134-434); RDW 15.7 % (11.9-15.9); WHITE BLOOD COUNT 17.5 K/mm3 (4.0-10.0)
[2023-03-24 10:04] LABS: CHLORIDE 101 mmol/L (98-107); POTASSIUM 3.2 mmol/L (3.5-5.1); SODIUM 138 mmol/L (136-145)
[2023-03-24 10:10] LABS: ANION GAP 11 mmol/L (4-13); BLOOD UREA NITROGEN 44.4 mg/dL (7-18); CALCIUM 8.5 mg/dL (8.5-10.1); CO2 26 mmol/L (21-32); GLUCOSE,RANDOM 132 mg/dL (74-106); MAGNESIUM 2.2 mg/dL (1.8-2.4)
[2023-03-24 10:11] LABS: ALBUMIN 2.9 g/dl (3.4-5.0)
[2023-03-24 10:13] LABS: SGOT/AST 8 U/L (15-37); SGPT/ALT 17 U/L (13-61)
[2023-03-24 10:14] LABS: BILIRUBIN,TOTAL 0.3 mg/dL (0.2-1)
[2023-03-24 10:15] LABS: TOT PROT 6.2 g/dl (6.4-8.2)
[2023-03-24 10:16] LABS: ALK PHOS 70 U/L (45-117); CREATININE 10.7 mg/dL (0.55-1.3); PHOSPHOROUS 4.3 mg/dL (2.5-4.9)
[2023-03-24] MEDS ORDERED: CEFTRIAXONE 1 GM in DEXTROSE 5%-WATER - 50 ML IVPB SCH (12:00)
[2023-03-24] MEDS ORDERED: POTASSIUM CHLORIDE ORAL LIQUID 20 MEQ/15 ML PO ONE (14:45)
[2023-03-24] MEDS ORDERED: CEFTRIAXONE 1 GM in DEXTROSE 5%-WATER - 50 ML IVPB ONE (15:00)
[2023-03-24] MEDS: PANTOPRAZOLE SODIUM 40 MG VIAL IVPUSH SCH (15:14)
[2023-03-24] MEDS: VITAMIN B COMP W-C 1 EA TABLET (NEPHRO-VITE) PO SCH (15:14)
[2023-03-24] MEDS: PREGABALIN 25 MG CAPSULE PO SCH (21:38)
[2023-03-25] MEDS: PYRIDOSTIGMINE BROMIDE 60 MG TABLET PO SCH ×3 (05:38→22:00)
[2023-03-25] MEDS: HEPARIN NA (PORCINE) 5,000 UNITS/ML 1ML VIAL SQ SCH ×3 (05:38→22:01)
[2023-03-25] MEDS: INSULIN SLIDING SCALE (NOVOLOG) 1 VIAL SQ SCH ×4 (06:10→22:20)
[2023-03-25] MEDS: METOCLOPRAMIDE HCL INJECTION 10 MG/2 ML VIAL IVPUSH SCH ×2 (06:18→14:55)
[2023-03-25 09:24] LABS: HEMATOCRIT 33.3 % (35.4-49); MCH 31.4 pg (25.7-33.7); MCHC 32.9 g/dl (32.0-35.9); MEAN CELL VOLUME 95.3 fl (80-96); MEAN PLT VOLUME 9.1 fl (7.5-11.1); PLATELET COUNT 221 10^3/uL (134-434); WHITE BLOOD COUNT 16.6 K/mm3 (4.0-10.0)
[2023-03-25 09:39] LABS: CHLORIDE 102 mmol/L (98-107); POTASSIUM 3.9 mmol/L (3.5-5.1); SODIUM 138 mmol/L (136-145)
[2023-03-25 09:42] LABS: ANION GAP 10 mmol/L (4-13); BLOOD UREA NITROGEN 30.1 mg/dL (7-18); CALCIUM 8.4 mg/dL (8.5-10.1); CO2 27 mmol/L (21-32); GLUCOSE,RANDOM 116 mg/dL (74-106)
[2023-03-25 09:49] LABS: ALK PHOS 69 U/L (45-117)
[2023-03-25 09:52] LABS: SGOT/AST 17 U/L (15-37); SGPT/ALT 14 U/L (13-61)
[2023-03-25 09:54] LABS: BILIRUBIN,TOTAL 0.3 mg/dL (0.2-1); TOT PROT 6.6 g/dl (6.4-8.2)
[2023-03-25 09:59] LABS: CREATININE 8.2 mg/dL (0.55-1.3)
[2023-03-25] MEDS ORDERED: SODIUM CHLORIDE 0.9% 500 ML INFUS.BAG IV ONE (10:24)
[2023-03-25] MEDS: AMINO ACIDS/PROTEIN HYDROLYS 30 ML LIQUID.PKT PO SCH ×2 (10:58→17:41)
[2023-03-25] MEDS: VITAMIN B COMP W-C 1 EA TABLET (NEPHRO-VITE) PO SCH (10:58)
[2023-03-25] MEDS: PANTOPRAZOLE SODIUM 40 MG VIAL IVPUSH SCH (10:58)
[2023-03-25] MEDS: MIDODRINE HCL 5 MG TABLET PO SCH ×3 (10:58→18:20)
[2023-03-25 10:59] LABS: ANISOCYTOSIS 0; HELMET CELLS 0; HOWELL-JOLLY BODIES 0; MACROCYTOSIS 0; OVALOCYTE 0; ROULEAU 0; SICKELED CELLS 0; TARGET CELLS 0; TEAR DROP CELLS 0; TOXIC GRANULATION 0
[2023-03-25] MEDS: CEFTRIAXONE 1 GM in DEXTROSE 5%-WATER - 50 ML IVPB SCH (10:59)
[2023-03-25] MEDS: POLYETHYLENE GLYCOL (HEALTHYLAX) 3350 17 GM PACKET PO SCH ×2 (11:00→21:59)
[2023-03-25 21:22] VITALS: BMI 19.5
[2023-03-25] MEDS: PREGABALIN 25 MG CAPSULE PO SCH (22:00)
[2023-03-26] MEDS: METOCLOPRAMIDE HCL INJECTION 10 MG/2 ML VIAL IVPUSH SCH ×4 (04:59→23:20)
[2023-03-26] MEDS: HEPARIN NA (PORCINE) 5,000 UNITS/ML 1ML VIAL SQ SCH ×3 (06:25→21:01)
[2023-03-26] MEDS: PYRIDOSTIGMINE BROMIDE 60 MG TABLET PO SCH ×3 (06:25→21:03)
[2023-03-26] MEDS: INSULIN SLIDING SCALE (NOVOLOG) 1 VIAL SQ SCH ×4 (06:41→21:09)
[2023-03-26] MEDS: AMINO ACIDS/PROTEIN HYDROLYS 30 ML LIQUID.PKT PO SCH ×3 (08:05→17:19)
[2023-03-26 08:25] LABS: BASO % 0.3 % (0-2.0); EOS % 1.4 % (0-4.5); HEMATOCRIT 31.3 % (35.4-49); LYMPH % 19.1 % (8-40); MCH 30.9 pg (25.7-33.7); MCHC 31.9 g/dl (32.0-35.9); MEAN PLT VOLUME 8.5 fl (7.5-11.1); MONO % 9.7 % (3.8-10.2); NEUT % 69.5 % (42.8-82.8); PLATELET COUNT 243 10^3/uL (134-434); RBC 3.23 M/mm3 (4.00-5.60); RDW 15.5 % (11.9-15.9); WHITE BLOOD COUNT 13.2 K/mm3 (4.0-10.0)
[2023-03-26 09:28] LABS: ALBUMIN 2.6 g/dl (3.4-5.0); ALK PHOS 63 U/L (45-117); ANION GAP 10 mmol/L (4-13); BILIRUBIN,TOTAL 0.7 mg/dL (0.2-1); BLOOD UREA NITROGEN 40.9 mg/dL (7-18); CHLORIDE 102 mmol/L (98-107); CO2 26 mmol/L (21-32); CREATININE 9.8 mg/dL (0.55-1.3); GLUCOSE,RANDOM 120 mg/dL (74-106); POTASSIUM 3.7 mmol/L (3.5-5.1); SGOT/AST 11 U/L (15-37); SGPT/ALT 12 U/L (13-61); SODIUM 138 mmol/L (136-145); TOT PROT 5.8 g/dl (6.4-8.2)
[2023-03-26] MEDS: CEFTRIAXONE 1 GM in DEXTROSE 5%-WATER - 50 ML IVPB SCH (10:28)
[2023-03-26] MEDS: VITAMIN B COMP W-C 1 EA TABLET (NEPHRO-VITE) PO SCH (10:28)
[2023-03-26] MEDS: MIDODRINE HCL 5 MG TABLET PO SCH ×3 (10:28→17:19)
[2023-03-26] MEDS: PANTOPRAZOLE SODIUM 40 MG VIAL IVPUSH SCH (10:28)
[2023-03-26] MEDS: POLYETHYLENE GLYCOL (HEALTHYLAX) 3350 17 GM PACKET PO SCH ×3 (10:29→21:10)
[2023-03-26] MEDS ORDERED: SODIUM CHLORIDE 250 ML IV PRN (14:29)
[2023-03-26] MEDS: PREGABALIN 25 MG CAPSULE PO SCH (21:01)
[2023-03-27] MEDS: PYRIDOSTIGMINE BROMIDE 60 MG TABLET PO SCH ×3 (05:21→22:39)
[2023-03-27] MEDS: INSULIN SLIDING SCALE (NOVOLOG) 1 VIAL SQ SCH ×4 (06:03→22:40)
[2023-03-27] MEDS: METOCLOPRAMIDE HCL INJECTION 10 MG/2 ML VIAL IVPUSH SCH ×3 (06:22→23:30)
[2023-03-27] MEDS: MIDODRINE HCL 5 MG TABLET PO SCH ×4 (08:01→17:26)
[2023-03-27] MEDS: AMINO ACIDS/PROTEIN HYDROLYS 30 ML LIQUID.PKT PO SCH ×2 (08:02→16:55)
[2023-03-27 09:36] LABS: HEMATOCRIT 31.3 % (35.4-49); HEMOGLOBIN 9.8 GM/dL (11.7-16.9); MCH 30.6 pg (25.7-33.7); MCHC 31.3 g/dl (32.0-35.9); MEAN CELL VOLUME 97.7 fl (80-96); MEAN PLT VOLUME 8.7 fl (7.5-11.1); PLATELET COUNT 274 10^3/uL (134-434); RBC 3.21 M/mm3 (4.00-5.60); RDW 15.6 % (11.9-15.9); WHITE BLOOD COUNT 15.5 K/mm3 (4.0-10.0)
[2023-03-27 09:54] LABS: CHLORIDE 102 mmol/L (98-107); POTASSIUM 3.7 mmol/L (3.5-5.1); SODIUM 138 mmol/L (136-145)
[2023-03-27 09:56] LABS: CALCIUM 8.2 mg/dL (8.5-10.1)
[2023-03-27 09:57] LABS: ALBUMIN 2.8 g/dl (3.4-5.0); ANION GAP 13 mmol/L (4-13); BLOOD UREA NITROGEN 49.1 mg/dL (7-18); CO2 24 mmol/L (21-32); GLUCOSE,RANDOM 161 mg/dL (74-106)
[2023-03-27 10:00] LABS: SGOT/AST 9 U/L (15-37)
[2023-03-27 10:02] LABS: BILIRUBIN,TOTAL 0.3 mg/dL (0.2-1); TOT PROT 6.1 g/dl (6.4-8.2)
[2023-03-27 10:03] LABS: ALK PHOS 63 U/L (45-117)
[2023-03-27 10:09] LABS: CREATININE 11.7 mg/dL (0.55-1.3); SGPT/ALT 12 U/L (13-61)
[2023-03-27] MEDS: VITAMIN B COMP W-C 1 EA TABLET (NEPHRO-VITE) PO SCH (12:31)
[2023-03-27] MEDS: PANTOPRAZOLE SODIUM 40 MG VIAL IVPUSH SCH (12:32)
[2023-03-27] MEDS: CEFTRIAXONE 1 GM in DEXTROSE 5%-WATER - 50 ML IVPB SCH (12:32)
[2023-03-27] MEDS: POLYETHYLENE GLYCOL (HEALTHYLAX) 3350 17 GM PACKET PO SCH ×2 (12:34→22:39)
[2023-03-27 20:00] LABS: EPI CELLS >36 /uL (0-25.1); HYALINE CASTS 4 /uL (0-3.1); PH,URINE 5.5 (5.0-8.0); URINE APPEARANCE CLOUDY; URINE BACTERIA 5 /uL (0-1359); URINE BILIRUBIN NEGATIVE (NEGATIVE); URINE COLOR YELLOW; URINE GLUCOSE (UA) NEGATIVE (NEGATIVE); URINE KETONE TRACE (NEGATIVE); URINE LEUK ESTERASE TRACE (NEGATIVE); URINE NITRITE NEGATIVE (NEGATIVE); URINE PROTEIN 2+ (NEGATIVE); URINE RBC 8 /uL (0-23.9); URINE UROBILINOGEN 0.2 mg/dL (0.2-1.0); URINE WBC 144 /uL (0-25.8)
[2023-03-27 21:12] LABS: PHENCYCLIDINE,URINE NEGATIVE (NEGATIVE)
[2023-03-27 21:13] LABS: COCAINE, UR NEGATIVE (NEGATIVE); METHADONE, UR NEGATIVE (NEGATIVE); URINE BARBITURATES NEGATIVE (NEGATIVE); URINE BENZODIAZEPINES NEGATIVE (NEGATIVE)
[2023-03-27 21:18] LABS: OPIATES, URI POSITIVE (NEGATIVE); URINE AMPHETAMINES NEGATIVE (NEGATIVE)
[2023-03-28 06:34] VITALS: TEMP 97.5
[2023-03-28] MEDS: INSULIN SLIDING SCALE (NOVOLOG) 1 VIAL SQ SCH ×2 (06:41→11:15)
[2023-03-28] MEDS: METOCLOPRAMIDE HCL INJECTION 10 MG/2 ML VIAL IVPUSH SCH ×2 (06:42→16:06)
[2023-03-28] MEDS: PYRIDOSTIGMINE BROMIDE 60 MG TABLET PO SCH ×2 (06:42→13:16)
[2023-03-28] MEDS: AMINO ACIDS/PROTEIN HYDROLYS 30 ML LIQUID.PKT PO SCH (08:29)
[2023-03-28 09:00] LABS: BASO % 0.4 % (0-2.0); EOS % 0.8 % (0-4.5); HEMATOCRIT 29.7 % (35.4-49); HEMOGLOBIN 9.9 GM/dL (11.7-16.9); LYMPH % 17.5 % (8-40); MCH 32.1 pg (25.7-33.7); MCHC 33.5 g/dl (32.0-35.9); MEAN CELL VOLUME 95.8 fl (80-96); MONO % 6.7 % (3.8-10.2); NEUT % 74.6 % (42.8-82.8); PLATELET COUNT 247 10^3/uL (134-434); WHITE BLOOD COUNT 13.9 K/mm3 (4.0-10.0)
[2023-03-28 09:13] LABS: CHLORIDE 104 mmol/L (98-107); POTASSIUM 3.6 mmol/L (3.5-5.1); SODIUM 140 mmol/L (136-145)
[2023-03-28 09:16] LABS: CALCIUM 8.2 mg/dL (8.5-10.1)
[2023-03-28 09:17] LABS: ALBUMIN 2.6 g/dl (3.4-5.0); ANION GAP 7 mmol/L (4-13); BLOOD UREA NITROGEN 31.9 mg/dL (7-18); CO2 28 mmol/L (21-32); GLUCOSE,RANDOM 128 mg/dL (74-106); MAGNESIUM 1.9 mg/dL (1.8-2.4)
[2023-03-28 09:20] LABS: PHOSPHOROUS 4.4 mg/dL (2.5-4.9); SGOT/AST 19 U/L (15-37); SGPT/ALT 20 U/L (13-61)
[2023-03-28 09:21] LABS: BILIRUBIN,TOTAL 0.5 mg/dL (0.2-1); TOT PROT 5.8 g/dl (6.4-8.2)
[2023-03-28 09:22] LABS: ALK PHOS 59 U/L (45-117); CREATININE 8.4 mg/dL (0.55-1.3)
[2023-03-28] MEDS: POLYETHYLENE GLYCOL (HEALTHYLAX) 3350 17 GM PACKET PO SCH (09:24)
[2023-03-28] MEDS: CEFTRIAXONE 1 GM in DEXTROSE 5%-WATER - 50 ML IVPB SCH (09:28)
[2023-03-28] MEDS: MIDODRINE HCL 5 MG TABLET PO SCH ×2 (09:28→13:15)
[2023-03-28] MEDS: PANTOPRAZOLE SODIUM 40 MG VIAL IVPUSH SCH (09:28)
[2023-03-28] MEDS ORDERED: ACETAMINOPHEN 1000 MG/100 ML BAG IVPB PRN (09:28)
[2023-03-28] MEDS: VITAMIN B COMP W-C 1 EA TABLET (NEPHRO-VITE) PO SCH (09:28)
[2023-03-28] MEDS ORDERED: SODIUM CHLORIDE 250 ML IV PRN (13:23)
[2023-03-28 14:14] VITALS: BP 124/56; PULSE 59; RESP 18
== END 2023-03-28 15:47 | disposition home or self-care (01) | DRG 73 ==
LOC: JER 13:17 → JERBED 15:25 → J5S 23:24
PROVIDERS: ADMIT Internal Medicine; ATTEND Internal Medicine
PROC: 5A1D70Z Performance of Urinary Filtration, Intermittent, Less than 6 Hours Per Day (ICD-10-PCS; principal; 2023-03-27)
DX: E11.43 Type 2 diabetes mellitus with diabetic autonomic (poly)neuropathy (principal); K85.90 Acute pancreatitis without necrosis or infection, unspecified; N18.6 End stage renal disease; I13.2 Hypertensive heart and chronic kidney disease with heart failure and with stage 5 chronic kidney disease, or end stage renal disease; I50.30 Unspecified diastolic (congestive) heart failure; K31.84 Gastroparesis; E87.6 Hypokalemia; Z99.2 Dependence on renal dialysis; D72.829 Elevated white blood cell count, unspecified; R19.7 Diarrhea, unspecified
CPT/HCPCS: 0241U-QW; 36415; 70450-TC; 71045-TC-FY; 74176-TC; 80048; 80053; 80061; 80307; 81003; 82010; 82140; 82803; 82962; 83615; 83690; 83735; 83993; 84100; 84484; 85025; 85027; 85610; 85730; 86704; 86803; 86850; 86900; 86901; 87040; 87045; 87046; 87205; 87324; 87340; 87449; 87517; 93005; 93010; 97116-GP; 97161-GP; 99285-25; J1644; Q5106

== ENCOUNTER 2023-04-04 15:57 | Inpatient (IN) | payer OTHER ==
[2023-04-04] MEDS ORDERED: HYDROmorphone HCl 2 MG/ML VIAL IVPUSH ONE ×2 (17:12→23:38)
[2023-04-04] MEDS ORDERED: HYDROmorphone HCl 2 MG/ML VIAL ONE (17:58)
[2023-04-04 18:03] LABS: BASO % 0.2 % (0-2.0); HEMATOCRIT 35.3 % (35.4-49); HEMOGLOBIN 11.3 GM/dL (11.7-16.9); LYMPH % 3.8 % (8-40); MCH 30.9 pg (25.7-33.7); MCHC 32.1 g/dl (32.0-35.9); MEAN CELL VOLUME 96.1 fl (80-96); MEAN PLT VOLUME 8.3 fl (7.5-11.1); MONO % 5.5 % (3.8-10.2); NEUT % 90.5 % (42.8-82.8); PLATELET COUNT 292 10^3/uL (134-434); RBC 3.67 M/mm3 (4.00-5.60); RDW 16.2 % (11.9-15.9); WHITE BLOOD COUNT 28.4 K/mm3 (4.0-10.0)
[2023-04-04] MEDS ORDERED: ONDANSETRON 4 MG/2 ML VIAL IVPUSH ONE (18:29)
[2023-04-04 18:33] LABS: CHLORIDE 102 mmol/L (98-107); POTASSIUM 3.3 mmol/L (3.5-5.1); SODIUM 148 mmol/L (136-145)
[2023-04-04 18:36] LABS: ANION GAP 16 mmol/L (4-13); CO2 31 mmol/L (21-32); GLUCOSE,RANDOM 177 mg/dL (74-106); LIPASE 145 U/L (73-393)
[2023-04-04] MEDS ORDERED: ONDANSETRON 4 MG/2 ML VIAL ONE (18:36)
[2023-04-04 18:39] LABS: SGOT/AST 19 U/L (15-37); SGPT/ALT 37 U/L (13-61)
[2023-04-04 18:41] LABS: BILIRUBIN,TOTAL 0.4 mg/dL (0.2-1)
[2023-04-04 18:42] LABS: ALK PHOS 85 U/L (45-117)
[2023-04-04] MEDS ORDERED: SODIUM CHLORIDE 0.9% 500 ML INFUS.BAG IV ONE ×2 (18:51→19:15)
[2023-04-04 19:00] LABS: ALBUMIN 3.7 g/dl (3.4-5.0); BLOOD UREA NITROGEN 64.6 mg/dL (7-18); CALCIUM 9.6 mg/dL (8.5-10.1); CREATININE 15.4 mg/dL (0.55-1.3); TOT PROT 7.9 g/dl (6.4-8.2)
[2023-04-04 19:12] LABS: ANISOCYTOSIS 2+; MACROCYTOSIS 0; TARGET CELLS 1+
[2023-04-05] MEDS ORDERED: PANTOPRAZOLE SODIUM 40 MG VIAL IVPUSH ONE (01:33)
[2023-04-05] MEDS ORDERED: PIPERACILLIN/TAZOB 2.25 GM 2.25 GM in DEXTROSE 5%-WATER - 50 ML IVPB ONE (01:33)
[2023-04-05] MEDS ORDERED: PIPERACILLIN/TAZOB 2.25 GM 2.25 GM/50 ML BAG IVPB ONE (01:58)
[2023-04-05] MEDS ORDERED: PANTOPRAZOLE SODIUM 40 MG VIAL ONE (01:58)
[2023-04-05] MEDS ORDERED: POTASSIUM CHLORIDE ORAL LIQUID 20 MEQ/15 ML PO ONE ×2 (02:28→19:47)
[2023-04-05] MEDS ORDERED: ACETAMINOPHEN 1000 MG/100 ML BAG IVPB PRN (02:32)
[2023-04-05] MEDS ORDERED: VANCOMYCIN 1 GRAM (PRE-DOCKED) 1,000 MG/250 ML BAG IVPB ONE ×2 (02:45→03:48)
[2023-04-05] MEDS ORDERED: SCOPOLAMINE HYDROBROMIDE 1 PATCH PATCH.TD72 TD SCH (02:45)
[2023-04-05] MEDS ORDERED: POTASSIUM CHLORIDE TABS 20 MEQ TABLET.ER (FP) PO ONE (03:47)
[2023-04-05] MEDS ORDERED: POTASSIUM CHLORIDE ORAL LIQUID 20 MEQ/15 ML ONE (04:03)
[2023-04-05] MEDS: INSULIN SLIDING SCALE (NOVOLOG) 1 VIAL SQ SCH ×5 (04:06→22:53)
[2023-04-05] MEDS: HEPARIN NA (PORCINE) 5,000 UNITS/ML 1ML VIAL SQ SCH ×3 (06:46→22:57)
[2023-04-05] MEDS: PYRIDOSTIGMINE BROMIDE 60 MG TABLET PO SCH ×3 (06:47→22:57)
[2023-04-05] MEDS ORDERED: SODIUM CHLORIDE 250 ML IV PRN (08:50)
[2023-04-05 09:10] LABS: HEMATOCRIT 32.4 % (35.4-49); HEMOGLOBIN 10.5 GM/dL (11.7-16.9); MCH 31.5 pg (25.7-33.7); MCHC 32.4 g/dl (32.0-35.9); MEAN CELL VOLUME 97.3 fl (80-96); MEAN PLT VOLUME 8.4 fl (7.5-11.1); PLATELET COUNT 253 10^3/uL (134-434); RBC 3.33 M/mm3 (4.00-5.60); RDW 15.9 % (11.9-15.9)
[2023-04-05 09:32] LABS: CHLORIDE 99 mmol/L (98-107); SODIUM 148 mmol/L (136-145)
[2023-04-05 09:37] LABS: CALCIUM 8.8 mg/dL (8.5-10.1)
[2023-04-05 09:38] LABS: ALBUMIN 3.4 g/dl (3.4-5.0); BLOOD UREA NITROGEN 70.8 mg/dL (7-18); CO2 31 mmol/L (21-32); GLUCOSE,RANDOM 162 mg/dL (74-106)
[2023-04-05 09:40] LABS: SGPT/ALT 27 U/L (13-61)
[2023-04-05 09:41] LABS: PHOSPHOROUS 8.3 mg/dL (2.5-4.9); SGOT/AST 12 U/L (15-37)
[2023-04-05 09:42] LABS: BILIRUBIN,TOTAL 0.9 mg/dL (0.2-1); TOT PROT 7.2 g/dl (6.4-8.2)
[2023-04-05 09:43] LABS: ALK PHOS 79 U/L (45-117)
[2023-04-05 09:45] LABS: ANION GAP 17 mmol/L (4-13); CREATININE 16.1 mg/dL (0.55-1.3); POTASSIUM 2.8 mmol/L (3.5-5.1)
[2023-04-05] MEDS ORDERED: PIPERACILLIN/TAZOB 2.25 GM 2.25 GM in DEXTROSE 5%-WATER - 50 ML IVPB SCH (10:00)
[2023-04-05] MEDS: POLYETHYLENE GLYCOL (HEALTHYLAX) 3350 17 GM PACKET PO SCH ×2 (10:53→22:55)
[2023-04-05] MEDS: SENNOSIDES/DOCUSATE COMBO (SENNA PLUS) TABLET (UD) PO SCH (10:54)
[2023-04-05] MEDS: PANTOPRAZOLE 40 MG TABLET PO SCH (10:55)
[2023-04-05] MEDS: MIDODRINE HCL 5 MG TABLET PO SCH ×3 (10:56→17:00)
[2023-04-05] MEDS ORDERED: INSULIN (NOVOLOG) ASPART 100 UNITS/ML 10ML VIAL ONE (11:10)
[2023-04-05] MEDS: SCOPOLAMINE HYDROBROMIDE 1 PATCH PATCH.TD72 TD SCH (11:14)
[2023-04-05] MEDS: METOCLOPRAMIDE HCL INJECTION 10 MG/2 ML VIAL IVPUSH PRN ×2 (11:21→16:52)
[2023-04-05] MEDS: KCL 10 MEQ IVPB 10 MEQ/100 ML INFUS.BAG IVPB SCH ×3 (11:26→18:12)
[2023-04-05 17:55] LABS: POTASSIUM 6.7 mmol/L (3.5-5.1)
[2023-04-05] MEDS: PIPERACILLIN/TAZOB 2.25 GM 2.25 GM in DEXTROSE 5%-WATER - 50 ML IVPB SCH ×2 (18:07→20:04)
[2023-04-05] MEDS: AMINO ACIDS 4.25%/D5W 1,000 ML IV SCH (18:12)
[2023-04-05 18:59] LABS: CHLORIDE 107 mmol/L (98-107); POTASSIUM 3.1 mmol/L (3.5-5.1); SODIUM 146 mmol/L (136-145)
[2023-04-05 19:00] LABS: CALCIUM 9.1 mg/dL (8.5-10.1)
[2023-04-05 19:01] LABS: ANION GAP 10 mmol/L (4-13); CO2 29 mmol/L (21-32); GLUCOSE,RANDOM 113 mg/dL (74-106)
[2023-04-05 19:18] LABS: BLOOD UREA NITROGEN 29.8 mg/dL (7-18); CREATININE 8.6 mg/dL (0.55-1.3)
[2023-04-05] MEDS: PREGABALIN 25 MG CAPSULE PO SCH (22:57)
[2023-04-06] MEDS: PIPERACILLIN/TAZOB 2.25 GM 2.25 GM in DEXTROSE 5%-WATER - 50 ML IVPB SCH ×3 (02:09→17:55)
[2023-04-06] MEDS: INSULIN SLIDING SCALE (NOVOLOG) 1 VIAL SQ SCH ×4 (07:18→22:05)
[2023-04-06] MEDS: PYRIDOSTIGMINE BROMIDE 60 MG TABLET PO SCH ×3 (07:19→22:03)
[2023-04-06] MEDS: HEPARIN NA (PORCINE) 5,000 UNITS/ML 1ML VIAL SQ SCH ×3 (07:19→22:03)
[2023-04-06 08:01] LABS: HEMATOCRIT 30.5 % (35.4-49); HEMOGLOBIN 9.8 GM/dL (11.7-16.9); MCH 31.5 pg (25.7-33.7); MEAN CELL VOLUME 98.3 fl (80-96); MEAN PLT VOLUME 8.8 fl (7.5-11.1); PLATELET COUNT 215 10^3/uL (134-434); RBC 3.11 M/mm3 (4.00-5.60); RDW 16.2 % (11.9-15.9); WHITE BLOOD COUNT 18.5 K/mm3 (4.0-10.0)
[2023-04-06 08:19] LABS: CHLORIDE 105 mmol/L (98-107); POTASSIUM 3.4 mmol/L (3.5-5.1); SODIUM 144 mmol/L (136-145)
[2023-04-06 08:22] LABS: ALBUMIN 2.9 g/dl (3.4-5.0); ANION GAP 8 mmol/L (4-13); BLOOD UREA NITROGEN 36.8 mg/dL (7-18); CALCIUM 8.5 mg/dL (8.5-10.1); CO2 30 mmol/L (21-32); GLUCOSE,RANDOM 115 mg/dL (74-106)
[2023-04-06 08:26] LABS: SGPT/ALT 23 U/L (13-61)
[2023-04-06 08:27] LABS: SGOT/AST 13 U/L (15-37)
[2023-04-06 08:28] LABS: BILIRUBIN,TOTAL 0.5 mg/dL (0.2-1); TOT PROT 6.4 g/dl (6.4-8.2)
[2023-04-06 08:29] LABS: ALK PHOS 71 U/L (45-117)
[2023-04-06 08:36] LABS: CREATININE 10.6 mg/dL (0.55-1.3)
[2023-04-06] MEDS: PANTOPRAZOLE 40 MG TABLET PO SCH (10:55)
[2023-04-06] MEDS: POLYETHYLENE GLYCOL (HEALTHYLAX) 3350 17 GM PACKET PO SCH ×2 (10:55→21:57)
[2023-04-06] MEDS: SENNOSIDES/DOCUSATE COMBO (SENNA PLUS) TABLET (UD) PO SCH (10:55)
[2023-04-06] MEDS: MIDODRINE HCL 5 MG TABLET PO SCH ×3 (10:57→17:55)
[2023-04-06] MEDS: SODIUM CHLORIDE 0.45% 1,000 ML IV SCH ×2 (16:49→17:08)
[2023-04-06] MEDS: AMINO ACIDS 4.25%/D5W 1,000 ML IV SCH (17:55)
[2023-04-06] MEDS: PREGABALIN 25 MG CAPSULE PO SCH (22:02)
[2023-04-07] MEDS: PIPERACILLIN/TAZOB 2.25 GM 2.25 GM in DEXTROSE 5%-WATER - 50 ML IVPB SCH ×4 (02:20→18:49)
[2023-04-07] MEDS: PYRIDOSTIGMINE BROMIDE 60 MG TABLET PO SCH ×4 (07:02→23:10)
[2023-04-07] MEDS: HEPARIN NA (PORCINE) 5,000 UNITS/ML 1ML VIAL SQ SCH ×3 (07:02→21:41)
[2023-04-07] MEDS: INSULIN SLIDING SCALE (NOVOLOG) 1 VIAL SQ SCH ×4 (07:05→21:42)
[2023-04-07 09:04] LABS: BASO % 0.4 % (0-2.0); EOS % 0.8 % (0-4.5); HEMATOCRIT 30.2 % (35.4-49); HEMOGLOBIN 9.8 GM/dL (11.7-16.9); LYMPH % 18.9 % (8-40); MCH 31.7 pg (25.7-33.7); MCHC 32.5 g/dl (32.0-35.9); MEAN CELL VOLUME 97.4 fl (80-96); MEAN PLT VOLUME 8.9 fl (7.5-11.1); MONO % 5.3 % (3.8-10.2); NEUT % 74.6 % (42.8-82.8); PLATELET COUNT 210 10^3/uL (134-434); RDW 15.7 % (11.9-15.9); WHITE BLOOD COUNT 11.5 K/mm3 (4.0-10.0)
[2023-04-07 09:21] LABS: CHLORIDE 100 mmol/L (98-107); POTASSIUM 3.2 mmol/L (3.5-5.1); SODIUM 137 mmol/L (136-145)
[2023-04-07 09:25] LABS: ALBUMIN 2.8 g/dl (3.4-5.0); ANION GAP 13 mmol/L (4-13); BLOOD UREA NITROGEN 47.9 mg/dL (7-18); CALCIUM 8.8 mg/dL (8.5-10.1); CO2 24 mmol/L (21-32); GLUCOSE,RANDOM 114 mg/dL (74-106)
[2023-04-07 09:26] LABS: MAGNESIUM 2.1 mg/dL (1.8-2.4)
[2023-04-07 09:27] LABS: SGOT/AST 13 U/L (15-37)
[2023-04-07 09:30] LABS: BILIRUBIN,TOTAL 0.4 mg/dL (0.2-1); TOT PROT 6.1 g/dl (6.4-8.2)
[2023-04-07 09:31] LABS: ALK PHOS 64 U/L (45-117)
[2023-04-07 09:35] LABS: SGPT/ALT 18 U/L (13-61)
[2023-04-07] MEDS ORDERED: SODIUM CHLORIDE 250 ML IV PRN (10:21)
[2023-04-07] MEDS: POLYETHYLENE GLYCOL (HEALTHYLAX) 3350 17 GM PACKET PO SCH ×2 (10:24→21:40)
[2023-04-07] MEDS: SENNOSIDES/DOCUSATE COMBO (SENNA PLUS) TABLET (UD) PO SCH ×2 (10:24→12:57)
[2023-04-07] MEDS: PANTOPRAZOLE 40 MG TABLET PO SCH ×2 (10:25→12:56)
[2023-04-07] MEDS: MIDODRINE HCL 5 MG TABLET PO SCH ×4 (10:25→18:49)
[2023-04-07] MEDS ORDERED: EPOETIN ALFA-EPBX 10,000 UNIT/ML VIAL SQ ONE (11:00)
[2023-04-07] MEDS: AMINO ACIDS 4.25%/D5W 1,000 ML IV SCH (16:52)
[2023-04-07] MEDS ORDERED: INSULIN (NOVOLOG) ASPART 100 UNITS/ML 10ML VIAL ONE (21:11)
[2023-04-07] MEDS: PREGABALIN 25 MG CAPSULE PO SCH (21:41)
[2023-04-08] MEDS: PIPERACILLIN/TAZOB 2.25 GM 2.25 GM in DEXTROSE 5%-WATER - 50 ML IVPB SCH ×3 (01:45→18:54)
[2023-04-08] MEDS: HEPARIN NA (PORCINE) 5,000 UNITS/ML 1ML VIAL SQ SCH ×3 (05:53→23:10)
[2023-04-08] MEDS: PYRIDOSTIGMINE BROMIDE 60 MG TABLET PO SCH ×3 (05:53→23:11)
[2023-04-08 08:23] LABS: BASO % 0.7 % (0-2.0); EOS % 1.2 % (0-4.5); HEMATOCRIT 29.9 % (35.4-49); HEMOGLOBIN 9.9 GM/dL (11.7-16.9); LYMPH % 26.3 % (8-40); MCH 31.9 pg (25.7-33.7); MCHC 33.1 g/dl (32.0-35.9); MEAN CELL VOLUME 96.5 fl (80-96); MEAN PLT VOLUME 9.2 fl (7.5-11.1); MONO % 7.8 % (3.8-10.2); PLATELET COUNT 206 10^3/uL (134-434); RBC 3.09 M/mm3 (4.00-5.60); RDW 15.1 % (11.9-15.9)
[2023-04-08 08:52] LABS: CHLORIDE 100 mmol/L (98-107); POTASSIUM 3.2 mmol/L (3.5-5.1); SODIUM 138 mmol/L (136-145)
[2023-04-08 09:08] LABS: ALBUMIN 2.7 g/dl (3.4-5.0); BLOOD UREA NITROGEN 28.4 mg/dL (7-18); GLUCOSE,RANDOM 109 mg/dL (74-106); MAGNESIUM 1.9 mg/dL (1.8-2.4)
[2023-04-08 09:09] LABS: ANION GAP 8 mmol/L (4-13); CO2 30 mmol/L (21-32)
[2023-04-08 09:10] LABS: SGPT/ALT 19 U/L (13-61)
[2023-04-08 09:12] LABS: BILIRUBIN,TOTAL 0.3 mg/dL (0.2-1); SGOT/AST 15 U/L (15-37); TOT PROT 5.7 g/dl (6.4-8.2)
[2023-04-08 09:13] LABS: ALK PHOS 62 U/L (45-117)
[2023-04-08 09:26] LABS: CREATININE 7.8 mg/dL (0.55-1.3)
[2023-04-08] MEDS: SENNOSIDES/DOCUSATE COMBO (SENNA PLUS) TABLET (UD) PO SCH ×2 (10:41→10:45)
[2023-04-08] MEDS: PANTOPRAZOLE 40 MG TABLET PO SCH (10:41)
[2023-04-08] MEDS: POLYETHYLENE GLYCOL (HEALTHYLAX) 3350 17 GM PACKET PO SCH ×3 (10:41→23:10)
[2023-04-08] MEDS: MIDODRINE HCL 5 MG TABLET PO SCH ×3 (10:41→17:53)
[2023-04-08] MEDS: SCOPOLAMINE HYDROBROMIDE 1 PATCH PATCH.TD72 TD SCH ×2 (10:41→15:08)
[2023-04-08] MEDS: INSULIN SLIDING SCALE (NOVOLOG) 1 VIAL SQ SCH ×4 (11:53→23:19)
[2023-04-08] MEDS: AMINO ACIDS 4.25%/D5W 1,000 ML IV SCH (17:53)
[2023-04-08] MEDS: PREGABALIN 25 MG CAPSULE PO SCH (23:11)
[2023-04-09] MEDS: PIPERACILLIN/TAZOB 2.25 GM 2.25 GM in DEXTROSE 5%-WATER - 50 ML IVPB SCH (02:37)
[2023-04-09] MEDS: HEPARIN NA (PORCINE) 5,000 UNITS/ML 1ML VIAL SQ SCH ×3 (06:42→22:55)
[2023-04-09] MEDS: PYRIDOSTIGMINE BROMIDE 60 MG TABLET PO SCH ×3 (06:42→22:55)
[2023-04-09] MEDS: INSULIN SLIDING SCALE (NOVOLOG) 1 VIAL SQ SCH ×3 (06:43→17:35)
[2023-04-09 08:11] LABS: BASO % 0.3 % (0-2.0); EOS % 1.4 % (0-4.5); HEMATOCRIT 30.5 % (35.4-49); LYMPH % 27.2 % (8-40); MCH 31.4 pg (25.7-33.7); MCHC 32.6 g/dl (32.0-35.9); MEAN CELL VOLUME 96.1 fl (80-96); MEAN PLT VOLUME 8.9 fl (7.5-11.1); MONO % 7.8 % (3.8-10.2); NEUT % 63.3 % (42.8-82.8); PLATELET COUNT 212 10^3/uL (134-434); RBC 3.17 M/mm3 (4.00-5.60); RDW 15.5 % (11.9-15.9); WHITE BLOOD COUNT 8.7 K/mm3 (4.0-10.0)
[2023-04-09 08:28] LABS: CHLORIDE 101 mmol/L (98-107); POTASSIUM 3.2 mmol/L (3.5-5.1); SODIUM 137 mmol/L (136-145)
[2023-04-09 08:55] LABS: ANION GAP 10 mmol/L (4-13); BLOOD UREA NITROGEN 43.6 mg/dL (7-18); CALCIUM 7.7 mg/dL (8.5-10.1); CO2 26 mmol/L (21-32); GLUCOSE,RANDOM 100 mg/dL (74-106)
[2023-04-09 08:57] LABS: ALBUMIN 2.6 g/dl (3.4-5.0)
[2023-04-09 08:58] LABS: SGPT/ALT 19 U/L (13-61)
[2023-04-09 08:59] LABS: SGOT/AST 17 U/L (15-37)
[2023-04-09 09:00] LABS: BILIRUBIN,TOTAL 0.2 mg/dL (0.2-1); TOT PROT 5.7 g/dl (6.4-8.2)
[2023-04-09 09:02] LABS: ALK PHOS 63 U/L (45-117)
[2023-04-09] MEDS: MIDODRINE HCL 5 MG TABLET PO SCH ×3 (10:50→17:54)
[2023-04-09] MEDS: AMOX TR/POT CLAV 500MG/125MG TABLETS (FP) PO SCH (10:50)
[2023-04-09] MEDS: LACTOBACILLUS ACIDOPHILUS 1 TABLET PO SCH (10:50)
[2023-04-09] MEDS: SENNOSIDES/DOCUSATE COMBO (SENNA PLUS) TABLET (UD) PO SCH (10:53)
[2023-04-09] MEDS: POLYETHYLENE GLYCOL (HEALTHYLAX) 3350 17 GM PACKET PO SCH ×2 (10:53→22:55)
[2023-04-09] MEDS: PANTOPRAZOLE 40 MG TABLET PO SCH (10:57)
[2023-04-09] MEDS: DOXYCYCLINE INJECTION 100 MG in DEXTROSE 5%-WATER 100 ML IVPB SCH ×2 (13:25→22:55)
[2023-04-09 15:58] VITALS: RESP 18
[2023-04-09] MEDS ORDERED: SODIUM CHLORIDE 250 ML IV PRN (17:36)
[2023-04-09] MEDS: PREGABALIN 25 MG CAPSULE PO SCH (22:55)
[2023-04-10] MEDS: INSULIN SLIDING SCALE (NOVOLOG) 1 VIAL SQ SCH ×4 (00:04→17:26)
[2023-04-10] MEDS: METOCLOPRAMIDE HCL INJECTION 10 MG/2 ML VIAL IVPUSH PRN (00:10)
[2023-04-10] MEDS: HEPARIN NA (PORCINE) 5,000 UNITS/ML 1ML VIAL SQ SCH ×2 (06:31→14:24)
[2023-04-10] MEDS: PYRIDOSTIGMINE BROMIDE 60 MG TABLET PO SCH ×2 (06:31→14:23)
[2023-04-10 08:24] LABS: BASO % 0.3 % (0-2.0); EOS % 1.6 % (0-4.5); HEMATOCRIT 31.7 % (35.4-49); HEMOGLOBIN 10.6 GM/dL (11.7-16.9); LYMPH % 25.1 % (8-40); MCH 32.1 pg (25.7-33.7); MCHC 33.3 g/dl (32.0-35.9); MEAN CELL VOLUME 96.4 fl (80-96); MEAN PLT VOLUME 8.6 fl (7.5-11.1); MONO % 8.1 % (3.8-10.2); NEUT % 64.9 % (42.8-82.8); PLATELET COUNT 227 10^3/uL (134-434); RBC 3.29 M/mm3 (4.00-5.60); RDW 14.9 % (11.9-15.9); WHITE BLOOD COUNT 10.8 K/mm3 (4.0-10.0)
[2023-04-10 08:40] LABS: CHLORIDE 103 mmol/L (98-107); POTASSIUM 3.4 mmol/L (3.5-5.1); SODIUM 137 mmol/L (136-145)
[2023-04-10 08:50] LABS: ANION GAP 9 mmol/L (4-13); BLOOD UREA NITROGEN 56.1 mg/dL (7-18); CALCIUM 8.2 mg/dL (8.5-10.1); CO2 25 mmol/L (21-32); GLUCOSE,RANDOM 88 mg/dL (74-106); MAGNESIUM 2.1 mg/dL (1.8-2.4)
[2023-04-10 08:53] LABS: SGPT/ALT 29 U/L (13-61)
[2023-04-10 08:54] LABS: SGOT/AST 29 U/L (15-37)
[2023-04-10 08:55] LABS: BILIRUBIN,TOTAL 0.6 mg/dL (0.2-1); TOT PROT 6.2 g/dl (6.4-8.2)
[2023-04-10 08:58] LABS: ALK PHOS 66 U/L (45-117)
[2023-04-10 09:01] LABS: CREATININE 12.3 mg/dL (0.55-1.3)
[2023-04-10] MEDS: LACTOBACILLUS ACIDOPHILUS 1 TABLET PO SCH (09:16)
[2023-04-10] MEDS: AMOX TR/POT CLAV 500MG/125MG TABLETS (FP) PO SCH (09:16)
[2023-04-10] MEDS: MIDODRINE HCL 5 MG TABLET PO SCH ×3 (09:16→17:32)
[2023-04-10] MEDS: POLYETHYLENE GLYCOL (HEALTHYLAX) 3350 17 GM PACKET PO SCH (09:17)
[2023-04-10] MEDS: SENNOSIDES/DOCUSATE COMBO (SENNA PLUS) TABLET (UD) PO SCH (09:17)
[2023-04-10 13:51] VITALS: PULSE 66
[2023-04-10 14:05] VITALS: BMI 19.7
[2023-04-10] MEDS: DOXYCYCLINE INJECTION 100 MG in DEXTROSE 5%-WATER 100 ML IVPB SCH (14:23)
[2023-04-10] MEDS: PANTOPRAZOLE 40 MG TABLET PO SCH (14:24)
[2023-04-10 15:58] VITALS: BP 142/82; TEMP 98.2
== END 2023-04-10 18:15 | disposition home or self-care (01) | DRG 871 ==
LOC: JER 15:57 → JERBED 04-05 01:34 → J7W 04-05 04:56
PROVIDERS: ADMIT Internal Medicine; ATTEND Nurse Practitioner Family
PROC: 5A1D70Z Performance of Urinary Filtration, Intermittent, Less than 6 Hours Per Day (ICD-10-PCS; principal; 2023-04-10)
DX: A41.89 Other specified sepsis (principal); J18.1 Lobar pneumonia, unspecified organism; N18.6 End stage renal disease; I13.2 Hypertensive heart and chronic kidney disease with heart failure and with stage 5 chronic kidney disease, or end stage renal disease; I50.32 Chronic diastolic (congestive) heart failure; K59.00 Constipation, unspecified; Z99.2 Dependence on renal dialysis; E11.43 Type 2 diabetes mellitus with diabetic autonomic (poly)neuropathy; E78.5 Hyperlipidemia, unspecified; D72.829 Elevated white blood cell count, unspecified; R10.9 Unspecified abdominal pain; B95.62 Methicillin resistant Staphylococcus aureus infection as the cause of diseases classified elsewhere; K31.84 Gastroparesis
CPT/HCPCS: 0241U-QW; 36415; 71045-TC-FY; 71260-TC; 74177-TC; 80048; 80053; 82962; 83690; 83735; 83993; 84100; 84132; 85025; 85027; 87040; 87045; 87046; 87070; 87186; 87205; 87209; 87324; 87449; 93005; 93010; 99285-25; J1644; Q5106; Q9967

== ENCOUNTER 2023-04-17 15:14 | Inpatient (IN) | payer OTHER ==
[2023-04-17] MEDS ORDERED: ONDANSETRON 4 MG/2 ML VIAL IVPUSH ONE (16:09)
[2023-04-17] MEDS ORDERED: PANTOPRAZOLE SODIUM 40 MG VIAL IVPUSH ONE (16:10)
[2023-04-17] MEDS ORDERED: HYDROmorphone HCl 2 MG/ML VIAL IVPUSH ONE ×2 (16:21→19:41)
[2023-04-17] MEDS ORDERED: ONDANSETRON 4 MG/2 ML VIAL ONE (16:23)
[2023-04-17] MEDS ORDERED: PANTOPRAZOLE SODIUM 40 MG/100 ML BAG IVPB ONE (16:23)
[2023-04-17] MEDS ORDERED: HYDROmorphone HCl 2 MG/ML VIAL ONE ×2 (16:40→19:42)
[2023-04-17 16:50] LABS: BASO % 0.4 % (0-2.0); HEMATOCRIT 36.4 % (35.4-49); HEMOGLOBIN 11.8 GM/dL (11.7-16.9); MCH 31.5 pg (25.7-33.7); MCHC 32.4 g/dl (32.0-35.9); MEAN CELL VOLUME 97.3 fl (80-96); MEAN PLT VOLUME 7.7 fl (7.5-11.1); MONO % 3.9 % (3.8-10.2); NEUT % 89.7 % (42.8-82.8); PLATELET COUNT 343 10^3/uL (134-434); RBC 3.74 M/mm3 (4.00-5.60); RDW 16.8 % (11.9-15.9); WHITE BLOOD COUNT 24.1 K/mm3 (4.0-10.0)
[2023-04-17 17:09] LABS: CHLORIDE 102 mmol/L (98-107); POTASSIUM 3.5 mmol/L (3.5-5.1); SODIUM 146 mmol/L (136-145)
[2023-04-17 17:12] LABS: ANION GAP 12 mmol/L (4-13); BLOOD UREA NITROGEN 52.3 mg/dL (7-18); CO2 32 mmol/L (21-32); GLUCOSE,RANDOM 160 mg/dL (74-106); MAGNESIUM 2.5 mg/dL (1.8-2.4)
[2023-04-17 17:15] LABS: PHOSPHOROUS 5.2 mg/dL (2.5-4.9); SGOT/AST 20 U/L (15-37); SGPT/ALT 37 U/L (13-61)
[2023-04-17 17:16] LABS: BILIRUBIN,TOTAL 0.3 mg/dL (0.2-1)
[2023-04-17 17:17] LABS: ALK PHOS 94 U/L (45-117)
[2023-04-17 17:20] LABS: ALBUMIN 3.9 g/dl (3.4-5.0); CALCIUM 10.2 mg/dL (8.5-10.1); CREATININE 12.8 mg/dL (0.55-1.3)
[2023-04-17 18:14] LABS: CHLORIDE 104 mmol/L (98-107); SODIUM 144 mmol/L (136-145)
[2023-04-17 18:15] LABS: ANION GAP 11 mmol/L (4-13); CALCIUM 10.2 mg/dL (8.5-10.1); CO2 29 mmol/L (21-32); GLUCOSE,RANDOM 155 mg/dL (74-106)
[2023-04-17 18:16] LABS: BLOOD UREA NITROGEN 50.1 mg/dL (7-18)
[2023-04-17 18:20] LABS: CREATININE 12.7 mg/dL (0.55-1.3)
[2023-04-17] MEDS ORDERED: METOCLOPRAMIDE HCL INJECTION 10 MG/2 ML VIAL IVPUSH ONE (22:03)
[2023-04-17] MEDS ORDERED: METOCLOPRAMIDE HCL INJECTION 10 MG/2 ML VIAL ONE (22:19)
[2023-04-18 00:26] LABS: HEMATOCRIT 34.4 % (35.4-49); HEMOGLOBIN 10.9 GM/dL (11.7-16.9); MCH 30.6 pg (25.7-33.7); MCHC 31.7 g/dl (32.0-35.9); MEAN CELL VOLUME 96.4 fl (80-96); MEAN PLT VOLUME 7.7 fl (7.5-11.1); PLATELET COUNT 294 10^3/uL (134-434); RBC 3.56 M/mm3 (4.00-5.60); RDW 16.9 % (11.9-15.9); WHITE BLOOD COUNT 23.1 K/mm3 (4.0-10.0)
[2023-04-18] MEDS ORDERED: ACETAMINOPHEN 1000 MG/100 ML BAG IVPB ONE (01:00)
[2023-04-18] MEDS ORDERED: POTASSIUM CHLORIDE TABS 20 MEQ TABLET.ER (FP) PO ONE (01:03)
[2023-04-18] MEDS ORDERED: ACETAMINOPHEN INJECTION 100 ML IVPB ONE (01:22)
[2023-04-18] MEDS ORDERED: POTASSIUM CHLORIDE ORAL LIQUID 20 MEQ/15 ML ONE (01:22)
[2023-04-18] MEDS ORDERED: KETOROLAC TROMETHAMINE 15 MG/ML VIAL IVPUSH ONE (03:00)
[2023-04-18 03:19] LABS: ANISOCYTOSIS 1+; MACROCYTOSIS 1+
[2023-04-18] MEDS ORDERED: NALOXONE HCL 0.4 MG/ML VIAL IVPUSH PRN (03:36)
[2023-04-18] MEDS ORDERED: KETOROLAC TROMETHAMINE 15 MG/ML VIAL ONE (03:40)
[2023-04-18 08:40] LABS: HEMATOCRIT 32.7 % (35.4-49); HEMOGLOBIN 10.6 GM/dL (11.7-16.9); MCH 31.6 pg (25.7-33.7); MCHC 32.3 g/dl (32.0-35.9); MEAN CELL VOLUME 97.9 fl (80-96); MEAN PLT VOLUME 8.2 fl (7.5-11.1); PLATELET COUNT 295 10^3/uL (134-434); RBC 3.34 M/mm3 (4.00-5.60); RDW 16.9 % (11.9-15.9); WHITE BLOOD COUNT 22.3 K/mm3 (4.0-10.0)
[2023-04-18 08:43] LABS: CHLORIDE 104 mmol/L (98-107); POTASSIUM 3.3 mmol/L (3.5-5.1); SODIUM 145 mmol/L (136-145)
[2023-04-18 08:52] LABS: SGOT/AST 10 U/L (15-37)
[2023-04-18 08:53] LABS: BILIRUBIN,TOTAL 0.3 mg/dL (0.2-1)
[2023-04-18 08:55] LABS: ALK PHOS 82 U/L (45-117)
[2023-04-18 08:56] LABS: ALBUMIN 3.5 g/dl (3.4-5.0)
[2023-04-18 08:57] LABS: GLUCOSE,RANDOM 142 mg/dL (74-106)
[2023-04-18 08:58] LABS: BLOOD UREA NITROGEN 57.2 mg/dL (7-18)
[2023-04-18 08:59] LABS: ANION GAP 14 mmol/L (4-13); CALCIUM 9.3 mg/dL (8.5-10.1); CO2 28 mmol/L (21-32); MAGNESIUM 2.5 mg/dL (1.8-2.4); PHOSPHOROUS 5.9 mg/dL (2.5-4.9); SGPT/ALT 31 U/L (13-61)
[2023-04-18 09:01] LABS: CREATININE 13.7 mg/dL (0.55-1.3)
[2023-04-18] MEDS ORDERED: HYDROmorphone HCl 2 MG/ML VIAL ONE ×2 (09:17→18:55)
[2023-04-18] MEDS ORDERED: PANTOPRAZOLE SODIUM 40 MG VIAL ONE ×2 (09:18→23:28)
[2023-04-18] MEDS: HYDROmorphone HCl 2 MG/ML VIAL IVPB PRN ×2 (09:20→19:14)
[2023-04-18] MEDS: HEPARIN NA (PORCINE) 5,000 UNITS/ML 1ML VIAL SQ SCH ×3 (09:20→23:37)
[2023-04-18] MEDS: PANTOPRAZOLE SODIUM 40 MG VIAL IVPUSH SCH ×2 (09:20→23:37)
[2023-04-18] MEDS ORDERED: SODIUM CHLORIDE 250 ML IV PRN (10:19)
[2023-04-18] MEDS ORDERED: HEPARIN NA (PORCINE) 5,000 UNITS/ML 1ML VIAL ONE ×2 (14:50→23:28)
[2023-04-18] MEDS ORDERED: CEFTRIAXONE 1 GM/50 ML BAG ONE (14:50)
[2023-04-18] MEDS: CEFTRIAXONE 1 GM in DEXTROSE 5%-WATER - 100 ML IVPB SCH (14:59)
[2023-04-18] MEDS ORDERED: SODIUM CHLORIDE 1,000 ML IV SCH (18:15)
[2023-04-19] MEDS ORDERED: HYDROmorphone HCl 2 MG/ML VIAL ONE ×3 (01:00→15:13)
[2023-04-19] MEDS: HYDROmorphone HCl 2 MG/ML VIAL IVPB PRN ×4 (02:03→21:47)
[2023-04-19] MEDS: HEPARIN NA (PORCINE) 5,000 UNITS/ML 1ML VIAL SQ SCH ×3 (06:29→21:47)
[2023-04-19] MEDS ORDERED: PANTOPRAZOLE SODIUM 40 MG VIAL ONE (10:58)
[2023-04-19] MEDS: CEFTRIAXONE 1 GM in DEXTROSE 5%-WATER - 100 ML IVPB SCH (11:03)
[2023-04-19] MEDS: PANTOPRAZOLE SODIUM 40 MG VIAL IVPUSH SCH ×2 (11:03→21:48)
[2023-04-19 12:13] LABS: HEMATOCRIT 29.9 % (35.4-49); HEMOGLOBIN 9.6 GM/dL (11.7-16.9); MCH 31.5 pg (25.7-33.7); MCHC 32.2 g/dl (32.0-35.9); MEAN CELL VOLUME 97.8 fl (80-96); MEAN PLT VOLUME 8.2 fl (7.5-11.1); PLATELET COUNT 237 10^3/uL (134-434); RBC 3.05 M/mm3 (4.00-5.60); RDW 17.3 % (11.9-15.9); WHITE BLOOD COUNT 13.8 K/mm3 (4.0-10.0)
[2023-04-19] MEDS: SODIUM CHLORIDE 1,000 ML IV SCH ×2 (16:54→17:29)
[2023-04-19] MEDS ORDERED: ACETAMINOPHEN 1000 MG/100 ML BAG IVPB PRN (19:44)
[2023-04-20] MEDS: HEPARIN NA (PORCINE) 5,000 UNITS/ML 1ML VIAL SQ SCH ×3 (06:21→21:48)
[2023-04-20] MEDS ORDERED: SODIUM CHLORIDE 250 ML IV PRN (08:00)
[2023-04-20] MEDS: HYDROmorphone HCl 2 MG/ML VIAL IVPB PRN ×2 (08:40→18:46)
[2023-04-20] MEDS ORDERED: EPOETIN ALFA-EPBX 10,000 UNIT/ML VIAL IVPUSH ONE (10:00)
[2023-04-20 10:33] LABS: BASO % 0.4 % (0-2.0); EOS % 0.7 % (0-4.5); HEMATOCRIT 27.8 % (35.4-49); LYMPH % 18.5 % (8-40); MCH 31.7 pg (25.7-33.7); MCHC 32.5 g/dl (32.0-35.9); MEAN CELL VOLUME 97.8 fl (80-96); MEAN PLT VOLUME 8.3 fl (7.5-11.1); MONO % 6.1 % (3.8-10.2); NEUT % 74.3 % (42.8-82.8); PLATELET COUNT 226 10^3/uL (134-434); RBC 2.85 M/mm3 (4.00-5.60); RDW 16.9 % (11.9-15.9); WHITE BLOOD COUNT 7.6 K/mm3 (4.0-10.0)
[2023-04-20 10:54] LABS: CHLORIDE 104 mmol/L (98-107); POTASSIUM 3.1 mmol/L (3.5-5.1); SODIUM 138 mmol/L (136-145)
[2023-04-20 10:56] LABS: ALBUMIN 2.8 g/dl (3.4-5.0); ANION GAP 7 mmol/L (4-13); CO2 28 mmol/L (21-32); GLUCOSE,RANDOM 111 mg/dL (74-106); MAGNESIUM 1.9 mg/dL (1.8-2.4)
[2023-04-20 10:59] LABS: SGOT/AST 15 U/L (15-37); SGPT/ALT 20 U/L (13-61)
[2023-04-20 11:01] LABS: BILIRUBIN,TOTAL 0.2 mg/dL (0.2-1)
[2023-04-20 11:02] LABS: ALK PHOS 68 U/L (45-117)
[2023-04-20 11:04] LABS: TOT PROT 5.6 g/dl (6.4-8.2)
[2023-04-20 11:06] LABS: BLOOD UREA NITROGEN 30.3 mg/dL (7-18); CALCIUM 7.9 mg/dL (8.5-10.1); CREATININE 9.2 mg/dL (0.55-1.3)
[2023-04-20] MEDS ORDERED: CEFTRIAXONE 1 GM in DEXTROSE 5%-WATER - 50 ML IVPB SCH (13:28)
[2023-04-20] MEDS: CEFTRIAXONE 1 GM in DEXTROSE 5%-WATER - 100 ML IVPB SCH (14:14)
[2023-04-20] MEDS: CEFTRIAXONE 1 GM in DEXTROSE 5%-WATER - 50 ML IVPB SCH (14:24)
[2023-04-20] MEDS: SODIUM CHLORIDE 1,000 ML IV SCH (15:00)
[2023-04-20] MEDS: PANTOPRAZOLE SODIUM 40 MG VIAL IVPUSH SCH ×2 (15:28→21:47)
[2023-04-20] MEDS ORDERED: POTASSIUM CHLORIDE ORAL LIQUID 20 MEQ/15 ML PO ONE (16:43)
[2023-04-21] MEDS: HYDROmorphone HCl 2 MG/ML VIAL IVPB PRN (05:42)
[2023-04-21] MEDS: HEPARIN NA (PORCINE) 5,000 UNITS/ML 1ML VIAL SQ SCH ×3 (05:45→22:58)
[2023-04-21] MEDS ORDERED: ONDANSETRON 4 MG/2 ML VIAL IVPUSH ONE (06:00)
[2023-04-21 08:15] LABS: BASO % 0.6 % (0-2.0); EOS % 0.9 % (0-4.5); HEMATOCRIT 29.8 % (35.4-49); HEMOGLOBIN 9.9 GM/dL (11.7-16.9); LYMPH % 26.4 % (8-40); MCH 32.4 pg (25.7-33.7); MCHC 33.2 g/dl (32.0-35.9); MEAN CELL VOLUME 97.6 fl (80-96); MONO % 9.4 % (3.8-10.2); NEUT % 62.7 % (42.8-82.8); PLATELET COUNT 237 10^3/uL (134-434); RBC 3.05 M/mm3 (4.00-5.60); RDW 16.5 % (11.9-15.9); WHITE BLOOD COUNT 5.9 K/mm3 (4.0-10.0)
[2023-04-21] MEDS ORDERED: CARVEDILOL 3.125 MG TABLET (FP) PO SCH (10:00)
[2023-04-21] MEDS: CEFTRIAXONE 1 GM in DEXTROSE 5%-WATER - 50 ML IVPB SCH (10:09)
[2023-04-21] MEDS: METOPROLOL TARTRATE 50 MG TABLET (FP) PO SCH ×2 (10:10→22:54)
[2023-04-21] MEDS: PANTOPRAZOLE SODIUM 40 MG VIAL IVPUSH SCH ×2 (10:10→22:55)
[2023-04-21] MEDS ORDERED: ONDANSETRON 4 MG/2 ML VIAL IVPUSH PRN (11:00)
[2023-04-21] MEDS: ISOSORBIDE MONONITRATE 30 MG TAB.SR.24H (FP) PO SCH (14:05)
[2023-04-21] MEDS: SODIUM CHLORIDE 1,000 ML IV SCH (17:29)
[2023-04-22] MEDS: HEPARIN NA (PORCINE) 5,000 UNITS/ML 1ML VIAL SQ SCH ×3 (07:08→21:57)
[2023-04-22 08:41] LABS: BASO % 0.5 % (0-2.0); EOS % 0.9 % (0-4.5); HEMATOCRIT 28.4 % (35.4-49); HEMOGLOBIN 9.5 GM/dL (11.7-16.9); LYMPH % 30.7 % (8-40); MCH 32.5 pg (25.7-33.7); MCHC 33.4 g/dl (32.0-35.9); MEAN CELL VOLUME 97.3 fl (80-96); MEAN PLT VOLUME 8.2 fl (7.5-11.1); MONO % 9.3 % (3.8-10.2); NEUT % 58.6 % (42.8-82.8); PLATELET COUNT 230 10^3/uL (134-434); RBC 2.92 M/mm3 (4.00-5.60); RDW 16.3 % (11.9-15.9); WHITE BLOOD COUNT 6.3 K/mm3 (4.0-10.0)
[2023-04-22] MEDS: CEFTRIAXONE 1 GM in DEXTROSE 5%-WATER - 50 ML IVPB SCH (09:43)
[2023-04-22] MEDS: METOPROLOL TARTRATE 50 MG TABLET (FP) PO SCH ×2 (09:43→21:57)
[2023-04-22] MEDS: PANTOPRAZOLE SODIUM 40 MG VIAL IVPUSH SCH ×2 (09:43→21:56)
[2023-04-22] MEDS: ISOSORBIDE MONONITRATE 30 MG TAB.SR.24H (FP) PO SCH (09:43)
[2023-04-22] MEDS ORDERED: ACETAMINOPHEN 325 MG TABLET (FP) PO PRN (10:17)
[2023-04-22] MEDS ORDERED: SODIUM CHLORIDE 250 ML IV PRN (12:35)
[2023-04-22] MEDS ORDERED: EPOETIN ALFA-EPBX 10,000 UNIT/ML VIAL SQ ONE (12:45)
[2023-04-22] MEDS: SODIUM CHLORIDE 1,000 ML IV SCH (17:05)
[2023-04-22] MEDS: AMITRIPTYLINE HCL 25 MG TABLET PO SCH (21:57)
[2023-04-23] MEDS: HEPARIN NA (PORCINE) 5,000 UNITS/ML 1ML VIAL SQ SCH ×3 (06:27→22:30)
[2023-04-23 09:06] LABS: BASO % 0.7 % (0-2.0); HEMATOCRIT 30.6 % (35.4-49); HEMOGLOBIN 10.2 GM/dL (11.7-16.9); LYMPH % 28.3 % (8-40); MCH 32.1 pg (25.7-33.7); MCHC 33.3 g/dl (32.0-35.9); MEAN CELL VOLUME 96.5 fl (80-96); MEAN PLT VOLUME 8.4 fl (7.5-11.1); MONO % 10.1 % (3.8-10.2); NEUT % 59.9 % (42.8-82.8); PLATELET COUNT 226 10^3/uL (134-434); RBC 3.17 M/mm3 (4.00-5.60); RDW 16.1 % (11.9-15.9); WHITE BLOOD COUNT 6.5 K/mm3 (4.0-10.0)
[2023-04-23] MEDS ORDERED: cefTRIAXone SODIUM 1 GM VIAL ONE (10:12)
[2023-04-23] MEDS: METOPROLOL TARTRATE 50 MG TABLET (FP) PO SCH ×2 (10:17→22:30)
[2023-04-23] MEDS: CEFTRIAXONE 1 GM in DEXTROSE 5%-WATER - 50 ML IVPB SCH (10:17)
[2023-04-23] MEDS: PANTOPRAZOLE SODIUM 40 MG VIAL IVPUSH SCH ×2 (10:17→22:31)
[2023-04-23] MEDS: SODIUM CHLORIDE 1,000 ML IV SCH (17:26)
[2023-04-23] MEDS: AMITRIPTYLINE HCL 25 MG TABLET PO SCH (22:30)
[2023-04-24] MEDS: HEPARIN NA (PORCINE) 5,000 UNITS/ML 1ML VIAL SQ SCH ×3 (05:45→21:57)
[2023-04-24 09:23] LABS: BASO % 0.6 % (0-2.0); EOS % 0.8 % (0-4.5); HEMATOCRIT 31.4 % (35.4-49); HEMOGLOBIN 10.4 GM/dL (11.7-16.9); LYMPH % 25.1 % (8-40); MEAN CELL VOLUME 96.9 fl (80-96); MEAN PLT VOLUME 7.7 fl (7.5-11.1); MONO % 8.8 % (3.8-10.2); NEUT % 64.7 % (42.8-82.8); PLATELET COUNT 238 10^3/uL (134-434); RBC 3.23 M/mm3 (4.00-5.60); RDW 16.3 % (11.9-15.9); WHITE BLOOD COUNT 6.7 K/mm3 (4.0-10.0)
[2023-04-24 09:41] LABS: POTASSIUM 3.3 mmol/L (3.5-5.1); SODIUM 140 mmol/L (136-145)
[2023-04-24 09:53] LABS: ALBUMIN 2.7 g/dl (3.4-5.0); CALCIUM 8.2 mg/dL (8.5-10.1); CO2 26 mmol/L (21-32); GLUCOSE,RANDOM 88 mg/dL (74-106); MAGNESIUM 1.8 mg/dL (1.8-2.4)
[2023-04-24 09:54] LABS: BLOOD UREA NITROGEN 18.3 mg/dL (7-18)
[2023-04-24 09:56] LABS: SGPT/ALT 16 U/L (13-61)
[2023-04-24 09:57] LABS: SGOT/AST 20 U/L (15-37)
[2023-04-24 09:58] LABS: BILIRUBIN,TOTAL 0.3 mg/dL (0.2-1); TOT PROT 5.4 g/dl (6.4-8.2)
[2023-04-24 09:59] LABS: ALK PHOS 67 U/L (45-117)
[2023-04-24 10:04] LABS: ANION GAP 8 mmol/L (4-13); CHLORIDE 106 mmol/L (98-107); CREATININE 8.3 mg/dL (0.55-1.3)
[2023-04-24] MEDS: CEFTRIAXONE 1 GM in DEXTROSE 5%-WATER - 50 ML IVPB SCH (10:40)
[2023-04-24] MEDS: METOPROLOL TARTRATE 50 MG TABLET (FP) PO SCH ×2 (10:40→21:56)
[2023-04-24] MEDS: PANTOPRAZOLE SODIUM 40 MG VIAL IVPUSH SCH ×2 (10:40→21:56)
[2023-04-24 11:07] VITALS: BMI 20.4
[2023-04-24] MEDS: SODIUM CHLORIDE 1,000 ML IV SCH ×2 (16:45→18:54)
[2023-04-24] MEDS: AMITRIPTYLINE HCL 25 MG TABLET PO SCH (21:56)
[2023-04-24] MEDS: metroNIDAZOLE 250 MG TABLET PO SCH (21:56)
[2023-04-25] MEDS: HEPARIN NA (PORCINE) 5,000 UNITS/ML 1ML VIAL SQ SCH ×2 (06:35→13:23)
[2023-04-25] MEDS: metroNIDAZOLE 250 MG TABLET PO SCH ×2 (06:36→13:23)
[2023-04-25 08:46] VITALS: RESP 18
[2023-04-25] MEDS ORDERED: SODIUM CHLORIDE 250 ML IV PRN (09:09)
[2023-04-25] MEDS ORDERED: EPOETIN ALFA-EPBX 3,000 UNIT/ML VIAL SQ ONE (09:15)
[2023-04-25 09:17] LABS: BASO % 0.6 % (0-2.0); EOS % 0.7 % (0-4.5); HEMATOCRIT 30.5 % (35.4-49); HEMOGLOBIN 10.1 GM/dL (11.7-16.9); LYMPH % 22.7 % (8-40); MCH 32.2 pg (25.7-33.7); MEAN CELL VOLUME 97.8 fl (80-96); MEAN PLT VOLUME 8.3 fl (7.5-11.1); MONO % 8.6 % (3.8-10.2); NEUT % 67.4 % (42.8-82.8); PLATELET COUNT 228 10^3/uL (134-434); RBC 3.12 M/mm3 (4.00-5.60); RDW 16.9 % (11.9-15.9); WHITE BLOOD COUNT 7.8 K/mm3 (4.0-10.0)
[2023-04-25 09:44] LABS: CHLORIDE 106 mmol/L (98-107); POTASSIUM 3.4 mmol/L (3.5-5.1); SODIUM 140 mmol/L (136-145)
[2023-04-25 09:46] LABS: ANION GAP 8 mmol/L (4-13); BLOOD UREA NITROGEN 28.2 mg/dL (7-18); CALCIUM 7.8 mg/dL (8.5-10.1); CO2 26 mmol/L (21-32); GLUCOSE,RANDOM 93 mg/dL (74-106); MAGNESIUM 1.7 mg/dL (1.8-2.4)
[2023-04-25 09:48] LABS: ALBUMIN 2.6 g/dl (3.4-5.0)
[2023-04-25 09:50] LABS: SGOT/AST 22 U/L (15-37); SGPT/ALT 17 U/L (13-61)
[2023-04-25 09:51] LABS: BILIRUBIN,TOTAL 0.2 mg/dL (0.2-1)
[2023-04-25 09:52] LABS: TOT PROT 5.4 g/dl (6.4-8.2)
[2023-04-25 09:53] LABS: ALK PHOS 71 U/L (45-117)
[2023-04-25 09:57] LABS: CREATININE 9.4 mg/dL (0.55-1.3)
[2023-04-25] MEDS ORDERED: VITAMIN B COMP W-C 1 EA TABLET (NEPHRO-VITE) PO SCH (10:00)
[2023-04-25] MEDS: PANTOPRAZOLE SODIUM 40 MG VIAL IVPUSH SCH (12:29)
[2023-04-25] MEDS: METOPROLOL TARTRATE 50 MG TABLET (FP) PO SCH (12:29)
[2023-04-25] MEDS ORDERED: MAGNESIUM OXIDE 400 MG TABLET (FP) PO ONE (12:30)
[2023-04-25] MEDS ORDERED: POTASSIUM CHLORIDE ORAL LIQUID 20 MEQ/15 ML PO ONE (12:30)
[2023-04-25 16:01] VITALS: BP 115/87; PULSE 72
[2023-04-25 16:19] VITALS: TEMP 97.8
== END 2023-04-25 16:43 | disposition home or self-care (01) | DRG 393 ==
LOC: JER 15:14 → JERBED 23:17 → J8W 04-19 16:00
PROVIDERS: ADMIT Internal Medicine; ATTEND Nurse Practitioner Acute Care
PROC: 5A1D70Z Performance of Urinary Filtration, Intermittent, Less than 6 Hours Per Day (ICD-10-PCS; principal; 2023-04-25)
DX: K55.9 Vascular disorder of intestine, unspecified (principal); N18.6 End stage renal disease; I13.2 Hypertensive heart and chronic kidney disease with heart failure and with stage 5 chronic kidney disease, or end stage renal disease; I50.32 Chronic diastolic (congestive) heart failure; E11.43 Type 2 diabetes mellitus with diabetic autonomic (poly)neuropathy; D72.829 Elevated white blood cell count, unspecified; Z99.2 Dependence on renal dialysis; K31.84 Gastroparesis; E11.22 Type 2 diabetes mellitus with diabetic chronic kidney disease
CPT/HCPCS: 0241U-QW; 36415; 71045-TC-FY; 74176-TC; 80048; 80053; 82962; 83605; 83690; 83735; 84100; 84484; 85025; 85027; 86803; 87040; 87340; 93005; 93010; 99285-25; J1644; Q5106

== ENCOUNTER 2023-05-12 19:18 | Observation (INO) | payer OTHER ==
[2023-05-12] MEDS ORDERED: FOLIC ACID INJECTION - 1 MG, THIAMINE HCL 100 MG, MULTIVIT INJECTION ADULT 10 ML in SOD... IVPB ONE (20:03)
[2023-05-12] MEDS ORDERED: DICYCLOMINE HCL 20 MG TABLET PO ONE (20:06)
[2023-05-12] MEDS ORDERED: DICYCLOMINE HCL 10 MG CAPSULE ONE (20:11)
[2023-05-12] MEDS ORDERED: PANTOPRAZOLE SODIUM 40 MG VIAL IVPUSH ONE (20:27)
[2023-05-12] MEDS ORDERED: PANTOPRAZOLE SODIUM 40 MG VIAL ONE (21:36)
[2023-05-12 21:39] LABS: BASO % 0.3 % (0-2.0); EOS % 0.2 % (0-4.5); HEMOGLOBIN 12.3 GM/dL (11.7-16.9); LYMPH % 9.8 % (8-40); MCH 30.7 pg (25.7-33.7); MCHC 31.6 g/dl (32.0-35.9); MEAN CELL VOLUME 97.3 fl (80-96); MEAN PLT VOLUME 7.9 fl (7.5-11.1); MONO % 6.5 % (3.8-10.2); NEUT % 83.2 % (42.8-82.8); PLATELET COUNT 239 10^3/uL (134-434); RBC 4.01 M/mm3 (4.00-5.60); RDW 17.2 % (11.9-15.9); WHITE BLOOD COUNT 15.8 K/mm3 (4.0-10.0)
[2023-05-12 22:03] LABS: POTASSIUM 3.5 mmol/L (3.5-5.1)
[2023-05-12 22:06] LABS: ALBUMIN 3.5 g/dl (3.4-5.0); BLOOD UREA NITROGEN 14.3 mg/dL (7-18); MAGNESIUM 2.2 mg/dL (1.8-2.4)
[2023-05-12 22:08] LABS: PHOSPHOROUS 3.5 mg/dL (2.5-4.9)
[2023-05-12 22:09] LABS: CREATININE 5.4 mg/dL (0.55-1.3)
[2023-05-12 22:10] LABS: BILIRUBIN,TOTAL 0.4 mg/dL (0.2-1); TOT PROT 7.4 g/dl (6.4-8.2)
[2023-05-12] MEDS ORDERED: morphine CARPU-JECT 4 MG/1 ML DISP.SYRIN IVPUSH ONE (23:38)
[2023-05-12] MEDS ORDERED: HYDROmorphone HCl 2 MG/ML VIAL IVPB ONE (23:40)
[2023-05-12] MEDS ORDERED: HYDROmorphone HCl 2 MG/ML VIAL ONE (23:54)
[2023-05-13] MEDS ORDERED: ACETAMINOPHEN 325 MG TABLET (FP) PO PRN (04:58)
[2023-05-13] MEDS ORDERED: HYDROmorphone HCl 2 MG/ML VIAL IVPB PRN (05:04)
[2023-05-13] MEDS ORDERED: HEPARIN NA (PORCINE) 5,000 UNITS/ML 1ML VIAL ONE (05:30)
[2023-05-13] MEDS ORDERED: HYDROmorphone HCl 2 MG/ML VIAL ONE (05:30)
[2023-05-13] MEDS: HEPARIN NA (PORCINE) 5,000 UNITS/ML 1ML VIAL SQ SCH ×3 (05:38→21:58)
[2023-05-13] MEDS ORDERED: PYRIDOSTIGMINE BROMIDE 60 MG TABLET PO SCH (06:00)
[2023-05-13] MEDS ORDERED: INSULIN ASPART SLIDING SCALE (NOVOLOG) 1 VIAL SQ SCH (07:00)
[2023-05-13 07:20] LABS: HEMATOCRIT 34.9 % (35.4-49); HEMOGLOBIN 11.1 GM/dL (11.7-16.9); MCH 31.1 pg (25.7-33.7); MCHC 31.7 g/dl (32.0-35.9); MEAN CELL VOLUME 98.1 fl (80-96); MEAN PLT VOLUME 7.9 fl (7.5-11.1); PLATELET COUNT 217 10^3/uL (134-434); RBC 3.56 M/mm3 (4.00-5.60); WHITE BLOOD COUNT 14.9 K/mm3 (4.0-10.0)
[2023-05-13 07:56] LABS: ALBUMIN 3.1 g/dl (3.4-5.0); BILIRUBIN,TOTAL 0.3 mg/dL (0.2-1); BLOOD UREA NITROGEN 19.8 mg/dL (7-18); CALCIUM 9.1 mg/dL (8.5-10.1); CREATININE 6.2 mg/dL (0.55-1.3); POTASSIUM 3.3 mmol/L (3.5-5.1); TOT PROT 6.3 g/dl (6.4-8.2)
[2023-05-13] MEDS: METOPROLOL TARTRATE 50 MG TABLET (FP) PO SCH ×2 (09:58→21:58)
[2023-05-13] MEDS: PANTOPRAZOLE 40 MG TABLET PO SCH (09:59)
[2023-05-13] MEDS: MIDODRINE HCL 5 MG TABLET PO SCH ×3 (09:59→17:39)
[2023-05-13] MEDS ORDERED: METOCLOPRAMIDE HCL INJECTION 10 MG/2 ML VIAL IVPUSH PRN (13:48)
[2023-05-13] MEDS ORDERED: ACETAMINOPHEN INJECTION 100 ML IVPB ONE (15:13)
[2023-05-13] MEDS: ACETAMINOPHEN 1000 MG/100 ML BAG IVPB PRN ×2 (15:15→21:56)
[2023-05-13] MEDS: PREGABALIN 25 MG CAPSULE PO SCH (21:57)
[2023-05-14] MEDS: AMITRIPTYLINE HCL 25 MG TABLET PO SCH ×2 (01:11→21:31)
[2023-05-14] MEDS: HEPARIN NA (PORCINE) 5,000 UNITS/ML 1ML VIAL SQ SCH ×3 (05:52→21:30)
[2023-05-14] MEDS: METOPROLOL TARTRATE 50 MG TABLET (FP) PO SCH ×2 (09:21→23:26)
[2023-05-14] MEDS: MIDODRINE HCL 5 MG TABLET PO SCH ×3 (09:21→17:22)
[2023-05-14] MEDS: PANTOPRAZOLE 40 MG TABLET PO SCH (09:22)
[2023-05-14 09:23] LABS: BASO % 0.5 % (0-2.0); EOS % 0.9 % (0-4.5); HEMOGLOBIN 11.7 GM/dL (11.7-16.9); LYMPH % 31.7 % (8-40); MCH 31.2 pg (25.7-33.7); MCHC 32.4 g/dl (32.0-35.9); MEAN CELL VOLUME 96.5 fl (80-96); MEAN PLT VOLUME 8.1 fl (7.5-11.1); MONO % 7.1 % (3.8-10.2); NEUT % 59.8 % (42.8-82.8); PLATELET COUNT 236 10^3/uL (134-434); RBC 3.73 M/mm3 (4.00-5.60); RDW 16.6 % (11.9-15.9); WHITE BLOOD COUNT 8.7 K/mm3 (4.0-10.0)
[2023-05-14 09:27] LABS: CHLORIDE 108 mmol/L (98-107); POTASSIUM 3.4 mmol/L (3.5-5.1); SODIUM 140 mmol/L (136-145)
[2023-05-14 09:29] LABS: ANION GAP 10 mmol/L (4-13); CALCIUM 9.2 mg/dL (8.5-10.1); CO2 22 mmol/L (21-32); GLUCOSE,RANDOM 95 mg/dL (74-106)
[2023-05-14 09:33] LABS: SGPT/ALT 24 U/L (13-61)
[2023-05-14 09:35] LABS: BILIRUBIN,TOTAL 0.2 mg/dL (0.2-1); SGOT/AST 12 U/L (15-37); TOT PROT 6.1 g/dl (6.4-8.2)
[2023-05-14 09:36] LABS: ALK PHOS 69 U/L (45-117)
[2023-05-14 09:58] LABS: CREATININE 8.6 mg/dL (0.55-1.3)
[2023-05-14] MEDS ORDERED: SODIUM CHLORIDE 250 ML IV PRN (20:02)
[2023-05-14 20:04] VITALS: BMI 20.2
[2023-05-14] MEDS: PREGABALIN 25 MG CAPSULE PO SCH (21:31)
[2023-05-15] MEDS: HEPARIN NA (PORCINE) 5,000 UNITS/ML 1ML VIAL SQ SCH ×3 (05:58→21:39)
[2023-05-15 09:32] LABS: BASO % 0.4 % (0-2.0); EOS % 0.9 % (0-4.5); HEMATOCRIT 36.2 % (35.4-49); HEMOGLOBIN 11.6 GM/dL (11.7-16.9); LYMPH % 25.6 % (8-40); MCH 31.1 pg (25.7-33.7); MCHC 32.1 g/dl (32.0-35.9); MEAN CELL VOLUME 96.8 fl (80-96); MEAN PLT VOLUME 8.4 fl (7.5-11.1); MONO % 6.3 % (3.8-10.2); NEUT % 66.8 % (42.8-82.8); PLATELET COUNT 236 10^3/uL (134-434); RBC 3.74 M/mm3 (4.00-5.60); RDW 16.2 % (11.9-15.9); WHITE BLOOD COUNT 8.2 K/mm3 (4.0-10.0)
[2023-05-15 09:54] LABS: CHLORIDE 106 mmol/L (98-107); POTASSIUM 3.7 mmol/L (3.5-5.1); SODIUM 137 mmol/L (136-145)
[2023-05-15 10:12] LABS: CALCIUM 8.8 mg/dL (8.5-10.1)
[2023-05-15 10:13] LABS: ALBUMIN 2.8 g/dl (3.4-5.0); ANION GAP 11 mmol/L (4-13); CO2 20 mmol/L (21-32); GLUCOSE,RANDOM 165 mg/dL (74-106)
[2023-05-15 10:16] LABS: SGOT/AST 16 U/L (15-37); SGPT/ALT 23 U/L (13-61)
[2023-05-15 10:17] LABS: TOT PROT 5.8 g/dl (6.4-8.2)
[2023-05-15 10:18] LABS: BILIRUBIN,TOTAL 0.2 mg/dL (0.2-1)
[2023-05-15 10:19] LABS: ALK PHOS 78 U/L (45-117)
[2023-05-15 10:20] LABS: CREATININE 10.4 mg/dL (0.55-1.3)
[2023-05-15] MEDS: PANTOPRAZOLE 40 MG TABLET PO SCH (13:37)
[2023-05-15] MEDS: MIDODRINE HCL 5 MG TABLET PO SCH ×4 (13:37→18:38)
[2023-05-15] MEDS: METOPROLOL TARTRATE 50 MG TABLET (FP) PO SCH ×2 (13:37→21:39)
[2023-05-15] MEDS: AMITRIPTYLINE HCL 25 MG TABLET PO SCH (21:39)
[2023-05-16] MEDS: HEPARIN NA (PORCINE) 5,000 UNITS/ML 1ML VIAL SQ SCH ×2 (06:34→14:16)
[2023-05-16] MEDS: METOPROLOL TARTRATE 50 MG TABLET (FP) PO SCH (09:21)
[2023-05-16] MEDS: PANTOPRAZOLE 40 MG TABLET PO SCH (09:21)
[2023-05-16 15:11] VITALS: BP 118/77; PULSE 63; RESP 18; TEMP 98.6
== END 2023-05-16 18:05 | disposition home or self-care (01) ==
LOC: JER 19:18 → JERBED 05-13 03:31 → J6S 05-13 15:46
PROVIDERS: ADMIT Internal Medicine; ATTEND Internal Medicine
PROC: 3E033GC Introduction of Other Therapeutic Substance into Peripheral Vein, Percutaneous Approach (ICD-10-PCS; principal; 2023-05-13)
PROC: 3E033NZ Introduction of Analgesics, Hypnotics, Sedatives into Peripheral Vein, Percutaneous Approach (ICD-10-PCS; 2023-05-13)
PROC: 3E033GC Introduction of Other Therapeutic Substance into Peripheral Vein, Percutaneous Approach (ICD-10-PCS; 2023-05-13)
PROC: 3E013GC Introduction of Other Therapeutic Substance into Subcutaneous Tissue, Percutaneous Approach (ICD-10-PCS; 2023-05-13)
DX: K31.84 Gastroparesis (principal); R11.2 Nausea with vomiting, unspecified; E11.22 Type 2 diabetes mellitus with diabetic chronic kidney disease; I12.0 Hypertensive chronic kidney disease with stage 5 chronic kidney disease or end stage renal disease; N18.6 End stage renal disease; Z99.2 Dependence on renal dialysis; E11.65 Type 2 diabetes mellitus with hyperglycemia; Z79.4 Long term (current) use of insulin; R10.84 Generalized abdominal pain; G89.29 Other chronic pain; D72.819 Decreased white blood cell count, unspecified; I95.1 Orthostatic hypotension; Z96.82 Presence of neurostimulator; N40.0 Benign prostatic hyperplasia without lower urinary tract symptoms; Z89.422 Acquired absence of other left toe(s); Z89.421 Acquired absence of other right toe(s); Z95.828 Presence of other vascular implants and grafts; E11.43 Type 2 diabetes mellitus with diabetic autonomic (poly)neuropathy; D64.9 Anemia, unspecified; K20.90 Esophagitis, unspecified without bleeding; K44.9 Diaphragmatic hernia without obstruction or gangrene; K22.6 Gastro-esophageal laceration-hemorrhage syndrome; I48.0 Paroxysmal atrial fibrillation; Z86.19 Personal history of other infectious and parasitic diseases; E78.5 Hyperlipidemia, unspecified; F12.10 Cannabis abuse, uncomplicated
CPT/HCPCS: 36415; 74176-TC; 80053; 82962; 83690; 83735; 84100; 84484; 85025; 85027; 93005; 93010; 96365; 96366; 96372; 96375; 99285-25; G0378; J1644

== ENCOUNTER 2023-06-01 14:55 | Observation (INO) | payer OTHER ==
[2023-06-01] MEDS ORDERED: METOCLOPRAMIDE HCL INJECTION 10 MG/2 ML VIAL ONE (16:39)
[2023-06-01] MEDS ORDERED: ACETAMINOPHEN INJECTION 100 ML IVPB ONE (16:39)
[2023-06-01] MEDS ORDERED: FAMOTIDINE 20 MG/50 ML IVPB 20 MG/50 ML MG IVPB ONE (16:40)
[2023-06-01] MEDS: METOCLOPRAMIDE HCL INJECTION 10 MG/2 ML VIAL IVPUSH ONE (17:13)
[2023-06-01] MEDS: FAMOTIDINE 20 MG/50 ML IVPB 20 MG/50 ML MG IVPB ONE (17:13)
[2023-06-01] MEDS: ACETAMINOPHEN 1000 MG/100 ML BAG IVPB ONE (17:13)
[2023-06-01 17:22] LABS: BASO % 0.4 % (0-2.0); EOS % 0.1 % (0-4.5); HEMATOCRIT 35.7 % (35.4-49); HEMOGLOBIN 11.7 GM/dL (11.7-16.9); LYMPH % 10.6 % (8-40); MCH 30.8 pg (25.7-33.7); MCHC 32.9 g/dl (32.0-35.9); MEAN CELL VOLUME 93.6 fl (80-96); MONO % 5.3 % (3.8-10.2); NEUT % 83.6 % (42.8-82.8); PLATELET COUNT 348 10^3/uL (134-434); RBC 3.81 M/mm3 (4.00-5.60); RDW 15.7 % (11.9-15.9); WHITE BLOOD COUNT 14.1 K/mm3 (4.0-10.0)
[2023-06-01 17:34] LABS: INR 1.1 (0.83-1.09); PROTHROMBIN TIME (PATIENT) 12.8 SEC (9.7-13.0)
[2023-06-01 17:37] LABS: ACTIVATED PTT 32.3 SECONDS (25.2-36.5)
[2023-06-01 17:45] LABS: CHLORIDE 106 mmol/L (98-107); POTASSIUM 3.8 mmol/L (3.5-5.1); SODIUM 143 mmol/L (136-145)
[2023-06-01 17:47] LABS: ALBUMIN 3.2 g/dl (3.4-5.0); ANION GAP 12 mmol/L (4-13); CALCIUM 9.3 mg/dL (8.5-10.1); CO2 25 mmol/L (21-32); GLUCOSE,RANDOM 91 mg/dL (74-106)
[2023-06-01 17:50] LABS: SGPT/ALT 22 U/L (13-61)
[2023-06-01 17:51] LABS: PHOSPHOROUS 4.8 mg/dL (2.5-4.9); SGOT/AST 15 U/L (15-37)
[2023-06-01 17:52] LABS: BILIRUBIN,TOTAL 0.3 mg/dL (0.2-1)
[2023-06-01 17:53] LABS: ALK PHOS 75 U/L (45-117)
[2023-06-01 18:00] LABS: CREATININE 7.9 mg/dL (0.55-1.3)
[2023-06-01] MEDS ORDERED: HYDROmorphone HCl 2 MG/ML VIAL ONE (18:29)
[2023-06-01] MEDS: HYDROmorphone HCl 2 MG/ML VIAL IVPUSH ONE (18:35)
[2023-06-01] MEDS: INSULIN ASPART SLIDING SCALE (NOVOLOG) 1 VIAL SQ SCH (21:35)
[2023-06-01] MEDS ORDERED: METOCLOPRAMIDE HCL INJECTION 10 MG/2 ML VIAL IVPUSH PRN (22:22)
[2023-06-01] MEDS: MINERAL OIL ENEMA 133 ML ENEMA RC ONE (22:26)
[2023-06-01] MEDS: MINERAL OIL ENEMA 133 ML ENEMA RC SCH (23:03)
[2023-06-01] MEDS ORDERED: SEVELAMER CARBONATE 800 MG TAB (FP) ONE (23:06)
[2023-06-01] MEDS: SEVELAMER CARBONATE 800 MG TAB (FP) PO SCH (23:11)
[2023-06-01] MEDS: ACETAMINOPHEN 1000 MG/100 ML BAG IVPB PRN (23:11)
[2023-06-02] MEDS ORDERED: POLYETHYLENE GLYCOL 3350 255 GM BTL PO ONE (02:00)
[2023-06-02] MEDS: METOCLOPRAMIDE HCL INJECTION 10 MG/2 ML VIAL IVPUSH SCH (02:35)
[2023-06-02 06:26] LABS: BASO % 1.4 % (0-2.0); EOS % 0.4 % (0-4.5); HEMATOCRIT 33.2 % (35.4-49); HEMOGLOBIN 10.8 GM/dL (11.7-16.9); LYMPH % 17.7 % (8-40); MCH 31.2 pg (25.7-33.7); MCHC 32.6 g/dl (32.0-35.9); MEAN CELL VOLUME 95.6 fl (80-96); MONO % 6.3 % (3.8-10.2); NEUT % 74.2 % (42.8-82.8); PLATELET COUNT 340 10^3/uL (134-434); RBC 3.47 M/mm3 (4.00-5.60); RDW 16.2 % (11.9-15.9); WHITE BLOOD COUNT 15.5 K/mm3 (4.0-10.0)
[2023-06-02 06:43] LABS: CHLORIDE 106 mmol/L (98-107); POTASSIUM 3.8 mmol/L (3.5-5.1); SODIUM 141 mmol/L (136-145)
[2023-06-02 06:44] LABS: CALCIUM 9.1 mg/dL (8.5-10.1)
[2023-06-02 06:45] LABS: ANION GAP 11 mmol/L (4-13); BLOOD UREA NITROGEN 36.9 mg/dL (7-18); CO2 24 mmol/L (21-32); GLUCOSE,RANDOM 56 mg/dL (74-106); MAGNESIUM 1.9 mg/dL (1.8-2.4)
[2023-06-02 06:48] LABS: PHOSPHOROUS 5.7 mg/dL (2.5-4.9); SGOT/AST 11 U/L (15-37); SGPT/ALT 18 U/L (13-61)
[2023-06-02 06:50] LABS: BILIRUBIN,TOTAL 0.4 mg/dL (0.2-1); TOT PROT 6.5 g/dl (6.4-8.2)
[2023-06-02 06:51] LABS: ALK PHOS 70 U/L (45-117)
[2023-06-02 07:24] LABS: CREATININE 9.1 mg/dL (0.55-1.3)
[2023-06-02] MEDS: POLYETHYLENE GLYCOL 3350 255 GM BTL PO ONE (09:08)
[2023-06-02] MEDS: MINERAL OIL ENEMA 133 ML ENEMA RC ONE (09:11)
[2023-06-02] MEDS: ISOSORBIDE MONONITRATE 30 MG TAB.SR.24H (FP) PO SCH (17:51)
[2023-06-02] MEDS: hydrALAZINE HCL 10 MG TABLET PO ONE (17:52)
[2023-06-02] MEDS: PANTOPRAZOLE 40 MG TABLET PO SCH (17:53)
[2023-06-02] MEDS: HEPARIN NA (PORCINE) 5,000 UNITS/ML 1ML VIAL SQ SCH (21:51)
[2023-06-03 07:37] LABS: BASO % 0.3 % (0-2.0); EOS % 0.8 % (0-4.5); HEMATOCRIT 32.1 % (35.4-49); HEMOGLOBIN 10.3 GM/dL (11.7-16.9); LYMPH % 32.2 % (8-40); MCH 30.9 pg (25.7-33.7); MCHC 32.2 g/dl (32.0-35.9); MEAN CELL VOLUME 95.9 fl (80-96); MONO % 10.3 % (3.8-10.2); NEUT % 56.4 % (42.8-82.8); PLATELET COUNT 320 10^3/uL (134-434); RBC 3.35 M/mm3 (4.00-5.60); RDW 15.8 % (11.9-15.9); WHITE BLOOD COUNT 9.3 K/mm3 (4.0-10.0)
[2023-06-03 07:42] LABS: POTASSIUM 4.1 mmol/L (3.5-5.1)
[2023-06-03 07:44] LABS: CALCIUM 8.6 mg/dL (8.5-10.1)
[2023-06-03 07:45] LABS: ALBUMIN 2.7 g/dl (3.4-5.0)
[2023-06-03 07:47] LABS: CREATININE 7.3 mg/dL (0.55-1.3)
[2023-06-03 07:49] LABS: BILIRUBIN,TOTAL 0.2 mg/dL (0.2-1); TOT PROT 5.9 g/dl (6.4-8.2)
[2023-06-03] MEDS: MINERAL OIL ENEMA 133 ML ENEMA RC ONE (09:17)
[2023-06-03] MEDS: AMITRIPTYLINE HCL 25 MG TABLET PO SCH (21:47)
[2023-06-04] MEDS: hydrALAZINE HCL 10 MG TABLET PO ONE (06:36)
[2023-06-04 09:17] LABS: BASO % 0.3 % (0-2.0); EOS % 0.7 % (0-4.5); HEMATOCRIT 32.3 % (35.4-49); HEMOGLOBIN 10.6 GM/dL (11.7-16.9); LYMPH % 24.9 % (8-40); MCH 31.3 pg (25.7-33.7); MCHC 32.8 g/dl (32.0-35.9); MEAN CELL VOLUME 95.5 fl (80-96); MEAN PLT VOLUME 7.6 fl (7.5-11.1); MONO % 8.9 % (3.8-10.2); NEUT % 65.2 % (42.8-82.8); PLATELET COUNT 324 10^3/uL (134-434); RBC 3.38 M/mm3 (4.00-5.60); RDW 16.1 % (11.9-15.9); WHITE BLOOD COUNT 10.9 K/mm3 (4.0-10.0)
[2023-06-04 09:49] LABS: CHLORIDE 103 mmol/L (98-107); POTASSIUM 4.5 mmol/L (3.5-5.1); SODIUM 138 mmol/L (136-145)
[2023-06-04 10:12] LABS: ALBUMIN 2.8 g/dl (3.4-5.0); ANION GAP 8 mmol/L (4-13); BLOOD UREA NITROGEN 41.6 mg/dL (7-18); CALCIUM 8.9 mg/dL (8.5-10.1); CO2 28 mmol/L (21-32); GLUCOSE,RANDOM 96 mg/dL (74-106); MAGNESIUM 2.2 mg/dL (1.8-2.4)
[2023-06-04 10:15] LABS: SGPT/ALT 24 U/L (13-61)
[2023-06-04 10:17] LABS: BILIRUBIN,TOTAL 0.3 mg/dL (0.2-1); TOT PROT 6.2 g/dl (6.4-8.2)
[2023-06-04 10:18] LABS: ALK PHOS 99 U/L (45-117); SGOT/AST 24 U/L (15-37)
[2023-06-04] MEDS: MINERAL OIL ENEMA 133 ML ENEMA RC ONE (13:37)
[2023-06-04 19:17] VITALS: BMI 19.8
[2023-06-04 22:02] VITALS: RESP 18
[2023-06-05] MEDS ORDERED: INSULIN (NOVOLOG) ASPART 100 UNITS/ML 10ML VIAL ONE (06:44)
[2023-06-05 09:43] LABS: BASO % 0.7 % (0-2.0); EOS % 0.8 % (0-4.5); HEMATOCRIT 31.3 % (35.4-49); HEMOGLOBIN 10.4 GM/dL (11.7-16.9); MCH 31.7 pg (25.7-33.7); MCHC 33.2 g/dl (32.0-35.9); MEAN CELL VOLUME 95.7 fl (80-96); MEAN PLT VOLUME 7.6 fl (7.5-11.1); MONO % 8.3 % (3.8-10.2); NEUT % 65.2 % (42.8-82.8); PLATELET COUNT 301 10^3/uL (134-434); RBC 3.27 M/mm3 (4.00-5.60)
[2023-06-05] MEDS: HEPARIN NA (PORCINE) 5,000 UNITS/ML 1ML VIAL IVPUSH ONE (09:50)
[2023-06-05] MEDS: HEPARIN NA (PORCINE) 5,000 UNITS/ML 1ML VIAL IVPUSH SCH (10:00)
[2023-06-05 10:07] LABS: CHLORIDE 101 mmol/L (98-107); POTASSIUM 5.2 mmol/L (3.5-5.1); SODIUM 137 mmol/L (136-145)
[2023-06-05 10:12] LABS: ALBUMIN 2.6 g/dl (3.4-5.0); ANION GAP 7 mmol/L (4-13); CO2 29 mmol/L (21-32); MAGNESIUM 2.1 mg/dL (1.8-2.4)
[2023-06-05 10:13] LABS: BLOOD UREA NITROGEN 58.5 mg/dL (7-18)
[2023-06-05 10:15] LABS: SGPT/ALT 21 U/L (13-61)
[2023-06-05 10:16] LABS: SGOT/AST 21 U/L (15-37)
[2023-06-05 10:17] LABS: BILIRUBIN,TOTAL 0.3 mg/dL (0.2-1); TOT PROT 5.7 g/dl (6.4-8.2)
[2023-06-05 10:18] LABS: ALK PHOS 78 U/L (45-117)
[2023-06-05 10:24] LABS: CALCIUM 8.6 mg/dL (8.5-10.1); CREATININE 10.1 mg/dL (0.55-1.3); GLUCOSE,RANDOM 116 mg/dL (74-106)
[2023-06-05] MEDS ORDERED: SODIUM CHLORIDE 250 ML IV PRN (10:51)
[2023-06-05] MEDS: VITAMIN B COMP W-C 1 EA TABLET (NEPHRO-VITE) PO SCH (13:11)
[2023-06-05 15:51] VITALS: BP 155/90; PULSE 60; TEMP 98.2
== END 2023-06-05 15:56 | disposition home or self-care (01) ==
LOC: JER 14:55 → JERBED 20:13 → J7W 06-02 13:24
PROVIDERS: ADMIT Internal Medicine; ATTEND Nurse Practitioner Acute Care
PROC: 3E033NZ Introduction of Analgesics, Hypnotics, Sedatives into Peripheral Vein, Percutaneous Approach (ICD-10-PCS; principal; 2023-06-01)
PROC: 3E033GC Introduction of Other Therapeutic Substance into Peripheral Vein, Percutaneous Approach (ICD-10-PCS; 2023-06-01)
PROC: 3E023GC Introduction of Other Therapeutic Substance into Muscle, Percutaneous Approach (ICD-10-PCS; 2023-06-01)
PROC: 3E033GC Introduction of Other Therapeutic Substance into Peripheral Vein, Percutaneous Approach (ICD-10-PCS; 2023-06-01)
DX: K31.84 Gastroparesis (principal); I12.0 Hypertensive chronic kidney disease with stage 5 chronic kidney disease or end stage renal disease; E11.22 Type 2 diabetes mellitus with diabetic chronic kidney disease; N18.6 End stage renal disease; Z99.2 Dependence on renal dialysis; E78.5 Hyperlipidemia, unspecified; Z96.82 Presence of neurostimulator; Z29.89 Encounter for other specified prophylactic measures; D72.829 Elevated white blood cell count, unspecified; R11.2 Nausea with vomiting, unspecified; Z89.422 Acquired absence of other left toe(s); Z89.421 Acquired absence of other right toe(s); Z91.011 Allergy to milk products
CPT/HCPCS: 0241U-QW; 36415; 74176-TC; 80053; 82962; 83690; 83735; 84100; 85025; 85610; 85730; 86704; 86803; 87040; 87340; 87517; 93005; 93010; 96365; 96372; 96375; 96376; 99285-25; G0378; J0131; J1644; J2997

== ENCOUNTER 2023-07-12 23:02 | Inpatient (IN) | payer OTHER ==
[2023-07-13] MEDS ORDERED: ONDANSETRON 4 MG/2 ML VIAL ONE (00:01)
[2023-07-13] MEDS ORDERED: FAMOTIDINE 20 MG/50 ML IVPB 20 MG/50 ML MG IVPB ONE (00:01)
[2023-07-13] MEDS ORDERED: ACETAMINOPHEN INJECTION 100 ML IVPB ONE ×2 (00:01→14:44)
[2023-07-13] MEDS: ACETAMINOPHEN 1000 MG/100 ML BAG IVPB ONE (00:07)
[2023-07-13] MEDS: ONDANSETRON 4 MG/2 ML VIAL IVPUSH ONE (00:08)
[2023-07-13] MEDS: FAMOTIDINE 20 MG/50 ML IVPB 20 MG/50 ML MG IVPB ONE (00:08)
[2023-07-13 00:09] LABS: BASO % 0.6 % (0-2.0); EOS % 0.1 % (0-4.5); HEMOGLOBIN 12.2 GM/dL (11.7-16.9); LYMPH % 8.5 % (8-40); MCH 30.7 pg (25.7-33.7); MCHC 32.1 g/dl (32.0-35.9); MEAN CELL VOLUME 95.6 fl (80-96); MEAN PLT VOLUME 8.6 fl (7.5-11.1); NEUT % 85.8 % (42.8-82.8); PLATELET COUNT 204 10^3/uL (134-434); RBC 3.98 M/mm3 (4.00-5.60); RDW 15.2 % (11.9-15.9); WHITE BLOOD COUNT 14.4 K/mm3 (4.0-10.0)
[2023-07-13 00:11] LABS: INR 1.02 (0.83-1.09); PROTHROMBIN TIME (PATIENT) 11.8 SEC (9.7-13.0); VENOUS BASE EXCESS -2.1 mmol/L (-2-2); VENOUS O2 SATURATION 77.7 % (70-80); VENOUS PH 7.347 (7.310-7.410)
[2023-07-13 00:14] LABS: ACTIVATED PTT 33.8 SECONDS (25.2-36.5)
[2023-07-13 00:24] LABS: CHLORIDE 106 mmol/L (98-107); SODIUM 145 mmol/L (136-145)
[2023-07-13 00:27] LABS: CALCIUM 9.3 mg/dL (8.5-10.1)
[2023-07-13 00:28] LABS: ALBUMIN 3.6 g/dl (3.4-5.0); CO2 27 mmol/L (21-32); GLUCOSE,RANDOM 144 mg/dL (74-106); MAGNESIUM 2.7 mg/dL (1.8-2.4)
[2023-07-13 00:30] LABS: PHOSPHOROUS 6.3 mg/dL (2.5-4.9); SGOT/AST 37 U/L (15-37); SGPT/ALT 25 U/L (13-61)
[2023-07-13 00:31] LABS: BILIRUBIN,TOTAL 0.5 mg/dL (0.2-1); TOT PROT 7.5 g/dl (6.4-8.2)
[2023-07-13 00:34] LABS: ALK PHOS 78 U/L (45-117)
[2023-07-13 00:49] LABS: ANION GAP 12 mmol/L (4-13); POTASSIUM 6.5 mmol/L (3.5-5.1)
[2023-07-13 03:06] LABS: CHLORIDE 107 mmol/L (98-107); POTASSIUM 4.3 mmol/L (3.5-5.1); SODIUM 146 mmol/L (136-145)
[2023-07-13 03:07] LABS: ANION GAP 12 mmol/L (4-13); BLOOD UREA NITROGEN 61.5 mg/dL (7-18); CALCIUM 9.1 mg/dL (8.5-10.1); CO2 27 mmol/L (21-32); GLUCOSE,RANDOM 126 mg/dL (74-106); MAGNESIUM 2.5 mg/dL (1.8-2.4)
[2023-07-13] MEDS ORDERED: METOCLOPRAMIDE HCL INJECTION 10 MG/2 ML VIAL IVPUSH PRN (04:11)
[2023-07-13] MEDS ORDERED: HEPARIN NA (PORCINE) 5,000 UNITS/ML 1ML VIAL ONE (06:09)
[2023-07-13] MEDS: INSULIN ASPART SLIDING SCALE (NOVOLOG) 1 VIAL SQ SCH (06:12)
[2023-07-13] MEDS: HEPARIN NA (PORCINE) 5,000 UNITS/ML 1ML VIAL SQ SCH (06:12)
[2023-07-13 08:04] LABS: BASO % 0.3 % (0-2.0); EOS % 0.1 % (0-4.5); HEMATOCRIT 38.3 % (35.4-49); HEMOGLOBIN 12.6 GM/dL (11.7-16.9); LYMPH % 13.1 % (8-40); MCH 31.1 pg (25.7-33.7); MCHC 32.8 g/dl (32.0-35.9); MEAN CELL VOLUME 94.8 fl (80-96); MEAN PLT VOLUME 8.9 fl (7.5-11.1); MONO % 7.1 % (3.8-10.2); NEUT % 79.4 % (42.8-82.8); PLATELET COUNT 208 10^3/uL (134-434); RBC 4.04 M/mm3 (4.00-5.60); WHITE BLOOD COUNT 15.9 K/mm3 (4.0-10.0)
[2023-07-13 08:05] LABS: EPI CELLS 8 /uL (0-25.1); HYALINE CASTS 1 /uL (0-3.1); PH,URINE 7.5 (5.0-8.0); URINE APPEARANCE CLEAR; URINE BACTERIA 13 /uL (0-1359); URINE BILIRUBIN NEGATIVE (NEGATIVE); URINE COLOR YELLOW; URINE GLUCOSE (UA) TRACE (NEGATIVE); URINE KETONE 1+ (NEGATIVE); URINE LEUK ESTERASE NEGATIVE (NEGATIVE); URINE NITRITE NEGATIVE (NEGATIVE); URINE PROTEIN 3+ (NEGATIVE); URINE RBC 35 /uL (0-23.9); URINE UROBILINOGEN 0.2 mg/dL (0.2-1.0); URINE WBC 8 /uL (0-25.8)
[2023-07-13 08:16] LABS: CHLORIDE 108 mmol/L (98-107); POTASSIUM 4.4 mmol/L (3.5-5.1); SODIUM 146 mmol/L (136-145)
[2023-07-13 08:21] LABS: ALBUMIN 3.4 g/dl (3.4-5.0); ANION GAP 11 mmol/L (4-13); CALCIUM 9.1 mg/dL (8.5-10.1); CO2 27 mmol/L (21-32); GLUCOSE,RANDOM 108 mg/dL (74-106); MAGNESIUM 2.5 mg/dL (1.8-2.4)
[2023-07-13 08:24] LABS: BILIRUBIN,TOTAL 0.4 mg/dL (0.2-1); PHOSPHOROUS 6.2 mg/dL (2.5-4.9); SGOT/AST 19 U/L (15-37); SGPT/ALT 20 U/L (13-61)
[2023-07-13 08:25] LABS: ALK PHOS 72 U/L (45-117); TOT PROT 6.6 g/dl (6.4-8.2)
[2023-07-13 08:36] LABS: CREATININE 10.1 mg/dL (0.55-1.3)
[2023-07-13] MEDS ORDERED: SODIUM CHLORIDE 250 ML IV PRN (10:48)
[2023-07-13] MEDS ORDERED: PANTOPRAZOLE 40 MG TABLET PO ONE (13:48)
[2023-07-13] MEDS ORDERED: ISOSORBIDE MONONITRATE 60 MG TAB.SR.24H (FP) PO ONE (13:49)
[2023-07-13] MEDS ORDERED: CEFTRIAXONE 1 GM/50 ML BAG ONE (13:50)
[2023-07-13] MEDS: PANTOPRAZOLE 40 MG TABLET PO SCH (14:08)
[2023-07-13] MEDS: ISOSORBIDE MONONITRATE 60 MG TAB.SR.24H (FP) PO SCH (14:08)
[2023-07-13] MEDS: CEFTRIAXONE 1 GM in DEXTROSE 5%-WATER - 50 ML IVPB SCH (14:08)
[2023-07-13] MEDS: ACETAMINOPHEN 1000 MG/100 ML BAG IVPB PRN (14:49)
[2023-07-13 17:44] LABS: ERYTHROCYTE SEDIMENTATION RATE 9 mm/hr (0-20)
[2023-07-13] MEDS: traMADol HCL 50 MG TABLET PO ONE (18:40)
[2023-07-13] MEDS: ISOSORBIDE MONONITRATE 30 MG TAB.SR.24H (FP) PO SCH (18:55)
[2023-07-14] MEDS ORDERED: ACETAMINOPHEN 1000 MG/100 ML BAG IVPB PRN (08:39)
[2023-07-14 09:08] LABS: HEMATOCRIT 33.4 % (35.4-49); HEMOGLOBIN 11.2 GM/dL (11.7-16.9); MCH 31.8 pg (25.7-33.7); MCHC 33.7 g/dl (32.0-35.9); MEAN CELL VOLUME 94.6 fl (80-96); MEAN PLT VOLUME 8.9 fl (7.5-11.1); PLATELET COUNT 161 10^3/uL (134-434); RBC 3.53 M/mm3 (4.00-5.60); RDW 15.4 % (11.9-15.9); WHITE BLOOD COUNT 10.8 K/mm3 (4.0-10.0)
[2023-07-14 09:44] LABS: CHLORIDE 102 mmol/L (98-107); POTASSIUM 3.8 mmol/L (3.5-5.1); SODIUM 140 mmol/L (136-145)
[2023-07-14 09:50] LABS: ANION GAP 8 mmol/L (4-13); BLOOD UREA NITROGEN 45.6 mg/dL (7-18); CO2 30 mmol/L (21-32); GLUCOSE,RANDOM 83 mg/dL (74-106)
[2023-07-14 09:52] LABS: CALCIUM 8.8 mg/dL (8.5-10.1); MAGNESIUM 2.2 mg/dL (1.8-2.4); SGOT/AST 16 U/L (15-37); SGPT/ALT 15 U/L (13-61)
[2023-07-14 09:53] LABS: BILIRUBIN,TOTAL 0.4 mg/dL (0.2-1)
[2023-07-14 09:54] LABS: TOT PROT 5.7 g/dl (6.4-8.2)
[2023-07-14 09:55] LABS: ALK PHOS 63 U/L (45-117)
[2023-07-14 09:57] LABS: CREATININE 7.9 mg/dL (0.55-1.3)
[2023-07-14] MEDS ORDERED: SODIUM CHLORIDE 250 ML IV PRN (12:46)
[2023-07-14] MEDS: LISINOPRIL 10 MG TABLET PO SCH (15:10)
[2023-07-14 15:28] VITALS: BMI 21.4
[2023-07-14] MEDS: SEVELAMER CARBONATE 800 MG TAB (FP) PO SCH (18:26)
[2023-07-15 08:05] LABS: HEMATOCRIT 32.9 % (35.4-49); MCH 31.8 pg (25.7-33.7); MCHC 33.5 g/dl (32.0-35.9); MEAN CELL VOLUME 94.9 fl (80-96); MEAN PLT VOLUME 8.6 fl (7.5-11.1); PLATELET COUNT 160 10^3/uL (134-434); RBC 3.47 M/mm3 (4.00-5.60); WHITE BLOOD COUNT 8.2 K/mm3 (4.0-10.0)
[2023-07-15 08:26] LABS: POTASSIUM 3.4 mmol/L (3.5-5.1)
[2023-07-15 08:34] LABS: ALBUMIN 2.9 g/dl (3.4-5.0); BLOOD UREA NITROGEN 28.4 mg/dL (7-18); CALCIUM 8.3 mg/dL (8.5-10.1)
[2023-07-15 08:38] LABS: CREATININE 6.5 mg/dL (0.55-1.3)
[2023-07-15 08:39] LABS: BILIRUBIN,TOTAL 0.3 mg/dL (0.2-1); TOT PROT 5.7 g/dl (6.4-8.2)
[2023-07-15] MEDS: traMADol HCL 50 MG TABLET PO PRN (10:11)
[2023-07-15] MEDS: guaiFENesin 200 MG/10 ML 10 ML UNIT-DOSE CUPS PO ONE (10:11)
[2023-07-15] MEDS: SUCRALFATE 1 GM/10 ML UNIT DOSE CUPS PO ONE (10:54)
[2023-07-15] MEDS ORDERED: ACETAMINOPHEN 325 MG TABLET (FP) PO PRN (12:47)
[2023-07-15 15:52] VITALS: RESP 18
[2023-07-15] MEDS: hydrALAZINE HCL 50 MG TABLET (FP) PO SCH (16:16)
[2023-07-16 08:59] LABS: HEMATOCRIT 33.2 % (35.4-49); HEMOGLOBIN 10.9 GM/dL (11.7-16.9); MCH 31.2 pg (25.7-33.7); MCHC 32.7 g/dl (32.0-35.9); MEAN CELL VOLUME 95.2 fl (80-96); MEAN PLT VOLUME 8.8 fl (7.5-11.1); PLATELET COUNT 156 10^3/uL (134-434); RBC 3.49 M/mm3 (4.00-5.60); RDW 14.8 % (11.9-15.9); WHITE BLOOD COUNT 7.8 K/mm3 (4.0-10.0)
[2023-07-16 09:10] LABS: CHLORIDE 100 mmol/L (98-107); POTASSIUM 3.5 mmol/L (3.5-5.1); SODIUM 137 mmol/L (136-145)
[2023-07-16 09:15] LABS: CALCIUM 8.6 mg/dL (8.5-10.1)
[2023-07-16 09:16] LABS: ALBUMIN 2.9 g/dl (3.4-5.0); ANION GAP 7 mmol/L (4-13); CO2 30 mmol/L (21-32); GLUCOSE,RANDOM 88 mg/dL (74-106)
[2023-07-16 09:17] LABS: SGPT/ALT 18 U/L (13-61)
[2023-07-16 09:18] LABS: BILIRUBIN,TOTAL 0.4 mg/dL (0.2-1); TOT PROT 5.5 g/dl (6.4-8.2)
[2023-07-16 09:19] LABS: SGOT/AST 20 U/L (15-37)
[2023-07-16 09:20] LABS: ALK PHOS 58 U/L (45-117)
[2023-07-16 09:30] LABS: CREATININE 8.7 mg/dL (0.55-1.3)
[2023-07-16] MEDS: MAG HYDROX/AL HYDROX/SIMETH 30 ML UNIT-DOSE CUP PO ONE (10:31)
[2023-07-16] MEDS ORDERED: SODIUM CHLORIDE 250 ML IV PRN (21:56)
[2023-07-16] MEDS: MAG HYDROX/AL HYDROX/SIMETH 30 ML UNIT-DOSE CUP PO PRN (22:52)
[2023-07-17] MEDS: TRIMETHOBENZAMIDE HCL 200MG/2ML INJ IM PRN (06:34)
[2023-07-17 09:33] LABS: HEMATOCRIT 30.9 % (35.4-49); HEMOGLOBIN 10.1 GM/dL (11.7-16.9); MCH 30.9 pg (25.7-33.7); MCHC 32.6 g/dl (32.0-35.9); MEAN CELL VOLUME 94.7 fl (80-96); MEAN PLT VOLUME 8.8 fl (7.5-11.1); PLATELET COUNT 157 10^3/uL (134-434); RBC 3.26 M/mm3 (4.00-5.60); WHITE BLOOD COUNT 8.2 K/mm3 (4.0-10.0)
[2023-07-17 09:49] LABS: CHLORIDE 99 mmol/L (98-107); POTASSIUM 3.8 mmol/L (3.5-5.1); SODIUM 136 mmol/L (136-145)
[2023-07-17 09:52] LABS: ANION GAP 8 mmol/L (4-13); CO2 29 mmol/L (21-32); GLUCOSE,RANDOM 107 mg/dL (74-106)
[2023-07-17 09:55] LABS: SGPT/ALT 20 U/L (13-61)
[2023-07-17 09:56] LABS: SGOT/AST 24 U/L (15-37)
[2023-07-17 09:57] LABS: BILIRUBIN,TOTAL 0.4 mg/dL (0.2-1); TOT PROT 5.4 g/dl (6.4-8.2)
[2023-07-17 09:58] LABS: ALK PHOS 64 U/L (45-117)
[2023-07-17 09:59] LABS: CREATININE 10.5 mg/dL (0.55-1.3)
[2023-07-17] MEDS ORDERED: hydrALAZINE HCL 50 MG TABLET (FP) PO SCH (10:00)
[2023-07-17] MEDS: A PO SCH (10:56)
[2023-07-17] MEDS ORDERED: INSULIN (NOVOLOG) ASPART 100 UNITS/ML 10ML VIAL ONE (21:48)
[2023-07-18 05:33] VITALS: BP 157/90; PULSE 58; TEMP 97.9
[2023-07-18 09:28] LABS: HEMOGLOBIN 11.1 GM/dL (11.7-16.9); MCH 31.2 pg (25.7-33.7); MCHC 32.6 g/dl (32.0-35.9); MEAN CELL VOLUME 95.7 fl (80-96); MEAN PLT VOLUME 8.5 fl (7.5-11.1); PLATELET COUNT 171 10^3/uL (134-434); RBC 3.56 M/mm3 (4.00-5.60); RDW 15.1 % (11.9-15.9); WHITE BLOOD COUNT 7.4 K/mm3 (4.0-10.0)
[2023-07-18 09:46] LABS: CHLORIDE 102 mmol/L (98-107); POTASSIUM 3.5 mmol/L (3.5-5.1); SODIUM 139 mmol/L (136-145)
[2023-07-18 09:59] LABS: CALCIUM 8.2 mg/dL (8.5-10.1)
[2023-07-18 10:00] LABS: ALBUMIN 3.1 g/dl (3.4-5.0); ANION GAP 7 mmol/L (4-13); CO2 31 mmol/L (21-32); GLUCOSE,RANDOM 92 mg/dL (74-106)
[2023-07-18 10:01] LABS: BLOOD UREA NITROGEN 33.9 mg/dL (7-18)
[2023-07-18 10:03] LABS: SGOT/AST 35 U/L (15-37); SGPT/ALT 27 U/L (13-61)
[2023-07-18 10:05] LABS: BILIRUBIN,TOTAL 0.3 mg/dL (0.2-1); TOT PROT 5.8 g/dl (6.4-8.2)
[2023-07-18 10:06] LABS: ALK PHOS 62 U/L (45-117)
[2023-07-18 10:18] LABS: CREATININE 8.5 mg/dL (0.55-1.3)
== END 2023-07-18 11:14 | disposition home or self-care (01) | DRG 73 ==
LOC: JER 23:02 → OBSVTOIN 07-13 01:16 → JERBED 07-13 01:16 → J8W 07-13 18:10
PROVIDERS: ADMIT Internal Medicine; ATTEND Nurse Practitioner Acute Care
PROC: 5A1D70Z Performance of Urinary Filtration, Intermittent, Less than 6 Hours Per Day (ICD-10-PCS; principal; 2023-07-17)
DX: E11.43 Type 2 diabetes mellitus with diabetic autonomic (poly)neuropathy (principal); N18.6 End stage renal disease; I13.2 Hypertensive heart and chronic kidney disease with heart failure and with stage 5 chronic kidney disease, or end stage renal disease; I50.32 Chronic diastolic (congestive) heart failure; E78.5 Hyperlipidemia, unspecified; R11.2 Nausea with vomiting, unspecified; R10.9 Unspecified abdominal pain; D72.829 Elevated white blood cell count, unspecified; I16.0 Hypertensive urgency; K31.84 Gastroparesis; Z99.2 Dependence on renal dialysis
CPT/HCPCS: 0241U-QW; 36415; 71045-TC-FY; 80048; 80053; 81003; 82010; 82803; 82962; 83735; 84100; 84484; 85025; 85027; 85610; 85651; 85730; 86140; 87040; 87086; 87340; 93005; 93010; 99285-25; J0131; J1644

== ENCOUNTER 2023-08-14 14:18 | Inpatient (IN) | payer OTHER ==
[2023-08-14] MEDS ORDERED: ONDANSETRON 4 MG/2 ML VIAL ONE (15:21)
[2023-08-14] MEDS ORDERED: ACETAMINOPHEN INJECTION 100 ML IVPB ONE (15:21)
[2023-08-14] MEDS ORDERED: PANTOPRAZOLE SODIUM 40 MG VIAL ONE (15:21)
[2023-08-14] MEDS: ONDANSETRON 4 MG/2 ML VIAL IVPUSH ONE (15:30)
[2023-08-14] MEDS: PANTOPRAZOLE SODIUM 40 MG VIAL IVPUSH ONE (15:30)
[2023-08-14] MEDS: ACETAMINOPHEN 1000 MG/100 ML BAG IVPB ONE (15:30)
[2023-08-14 15:33] LABS: BASO % 0.3 % (0-2.0); EOS % 0.5 % (0-4.5); HEMATOCRIT 38.4 % (35.4-49); HEMOGLOBIN 12.2 GM/dL (11.7-16.9); LYMPH % 11.2 % (8-40); MCH 30.7 pg (25.7-33.7); MCHC 31.9 g/dl (32.0-35.9); MEAN CELL VOLUME 96.4 fl (80-96); MEAN PLT VOLUME 8.1 fl (7.5-11.1); MONO % 3.2 % (3.8-10.2); NEUT % 84.8 % (42.8-82.8); PLATELET COUNT 230 10^3/uL (134-434); RBC 3.98 M/mm3 (4.00-5.60); RDW 16.7 % (11.9-15.9); WHITE BLOOD COUNT 11.4 K/mm3 (4.0-10.0)
[2023-08-14] MEDS ORDERED: HYDROmorphone HCl 2 MG/ML VIAL ONE (15:37)
[2023-08-14 15:40] LABS: PROTHROMBIN TIME (PATIENT) 11.6 SEC (9.7-13.0)
[2023-08-14 15:43] LABS: ACTIVATED PTT 34.7 SECONDS (25.2-36.5)
[2023-08-14] MEDS: HYDROmorphone HCl 2 MG/ML VIAL IVPUSH ONE (15:43)
[2023-08-14] MEDS ORDERED: PANTOPRAZOLE SODIUM 40 MG/100 ML BAG IVPB ONE (15:44)
[2023-08-14 16:04] LABS: CHLORIDE 110 mmol/L (98-107); POTASSIUM 5.1 mmol/L (3.5-5.1); SODIUM 141 mmol/L (136-145)
[2023-08-14 16:07] LABS: ANION GAP 7 mmol/L (4-13); BLOOD UREA NITROGEN 43.4 mg/dL (7-18); CO2 24 mmol/L (21-32); GLUCOSE,RANDOM 119 mg/dL (74-106)
[2023-08-14 16:08] LABS: MAGNESIUM 2.9 mg/dL (1.8-2.4)
[2023-08-14 16:10] LABS: SGOT/AST 34 U/L (15-37); SGPT/ALT 25 U/L (13-61)
[2023-08-14 16:12] LABS: ALK PHOS 81 U/L (45-117); BILIRUBIN,TOTAL 0.4 mg/dL (0.2-1); TOT PROT 7.5 g/dl (6.4-8.2)
[2023-08-14 16:16] LABS: CREATININE 11.2 mg/dL (0.55-1.3)
[2023-08-14] MEDS ORDERED: SODIUM CHLORIDE 250 ML IV PRN (16:35)
[2023-08-14] MEDS ORDERED: LABETALOL HCL 20 MG/4 ML VIAL ONE (17:21)
[2023-08-14] MEDS: PANTOPRAZOLE SODIUM 80 MG in SODIUM CHLORIDE 100 ML IVPB SCH (17:37)
[2023-08-14] MEDS: LABETALOL HCL 5 MG/1 ML (100MG/20 ML VIAL) IVPUSH ONE (17:37)
[2023-08-14] MEDS ORDERED: METOCLOPRAMIDE HCL INJECTION 10 MG/2 ML VIAL ONE (19:39)
[2023-08-14] MEDS: METOCLOPRAMIDE HCL INJECTION 10 MG/2 ML VIAL IVPB ONE (19:43)
[2023-08-14] MEDS ORDERED: MAG HYDROX/AL HYDROX/SIMETH 30 ML UNIT-DOSE CUP PO PRN (22:14)
[2023-08-14] MEDS ORDERED: ACETAMINOPHEN 1000 MG/100 ML BAG IVPB PRN (22:14)
[2023-08-14] MEDS: LABETALOL HCL 200 MG TABLET (FP) PO ONE (22:49)
[2023-08-15] MEDS ORDERED: hydrALAZINE HCL 20 MG/ML VIAL IVPUSH PRN (00:26)
[2023-08-15] MEDS ORDERED: ACETAMINOPHEN 1000 MG/100 ML BAG IVPB PRN ×2 (00:28→02:34)
[2023-08-15] MEDS ORDERED: traMADol HCL 50 MG TABLET PO PRN (00:35)
[2023-08-15] MEDS ORDERED: MAG HYDROX/AL HYDROX/SIMETH 30 ML UNIT-DOSE CUP PO PRN (02:34)
[2023-08-15] MEDS ORDERED: SODIUM CHLORIDE 250 ML IV PRN (02:34)
[2023-08-15 02:44] VITALS: BMI 20.8
[2023-08-15 07:55] LABS: CHLORIDE 111 mmol/L (98-107); POTASSIUM 4.9 mmol/L (3.5-5.1); SODIUM 144 mmol/L (136-145)
[2023-08-15] MEDS ORDERED: SEVELAMER CARBONATE 800 MG TAB (FP) PO SCH (08:00)
[2023-08-15 08:05] LABS: BASO % 0.4 % (0-2.0); EOS % 0.2 % (0-4.5); HEMATOCRIT 34.6 % (35.4-49); HEMOGLOBIN 11.3 GM/dL (11.7-16.9); LYMPH % 14.1 % (8-40); MCH 31.4 pg (25.7-33.7); MCHC 32.7 g/dl (32.0-35.9); MEAN CELL VOLUME 95.9 fl (80-96); MEAN PLT VOLUME 8.5 fl (7.5-11.1); MONO % 5.6 % (3.8-10.2); NEUT % 79.7 % (42.8-82.8); RBC 3.61 M/mm3 (4.00-5.60); RDW 17.4 % (11.9-15.9); WHITE BLOOD COUNT 12.2 K/mm3 (4.0-10.0)
[2023-08-15 08:11] LABS: ALBUMIN 3.4 g/dl (3.4-5.0); ANION GAP 9 mmol/L (4-13); BLOOD UREA NITROGEN 50.9 mg/dL (7-18); CO2 24 mmol/L (21-32); GLUCOSE,RANDOM 126 mg/dL (74-106); MAGNESIUM 2.8 mg/dL (1.8-2.4)
[2023-08-15 08:13] LABS: PLATELET COUNT 199 10^3/uL (134-434)
[2023-08-15 08:14] LABS: PHOSPHOROUS 6.7 mg/dL (2.5-4.9); SGOT/AST 18 U/L (15-37); SGPT/ALT 19 U/L (13-61)
[2023-08-15 08:15] LABS: BILIRUBIN,TOTAL 0.4 mg/dL (0.2-1); TOT PROT 6.4 g/dl (6.4-8.2)
[2023-08-15 08:16] LABS: ALK PHOS 74 U/L (45-117)
[2023-08-15 08:35] LABS: CREATININE 12.5 mg/dL (0.55-1.3)
[2023-08-15] MEDS ORDERED: ISOSORBIDE MONONITRATE 60 MG TAB.SR.24H (FP) PO SCH (10:00)
[2023-08-15] MEDS ORDERED: VITAMIN B COMP W-C 1 EA TABLET (NEPHRO-VITE) PO SCH (10:00)
[2023-08-15] MEDS: LIPASE/PROTEASE/AMYLASE 36,000 UNIT CAPSULE PO SCH (10:27)
[2023-08-15] MEDS: ISOSORBIDE MONONITRATE 60 MG TAB.SR.24H (FP) PO SCH (10:27)
[2023-08-15] MEDS: VITAMIN B COMP W-C 1 EA TABLET (NEPHRO-VITE) PO SCH (10:27)
[2023-08-15] MEDS: hydrALAZINE HCL 20 MG/ML VIAL IVPUSH PRN (10:38)
[2023-08-15] MEDS: LABETALOL HCL 5 MG/1 ML (100MG/20 ML VIAL) IVPUSH ONE ×2 (10:41→22:52)
[2023-08-15] MEDS: SEVELAMER CARBONATE 800 MG TAB (FP) PO SCH (10:43)
[2023-08-15] MEDS: PANTOPRAZOLE SODIUM 80 MG in SODIUM CHLORIDE 100 ML IVPB SCH (12:47)
[2023-08-15] MEDS: AMITRIPTYLINE HCL 25 MG TABLET PO SCH (21:49)
[2023-08-15] MEDS ORDERED: AMITRIPTYLINE HCL 25 MG TABLET PO SCH (22:00)
[2023-08-16 06:42] LABS: HEMATOCRIT 35.4 % (35.4-49); HEMOGLOBIN 11.3 GM/dL (11.7-16.9); MCH 31.4 pg (25.7-33.7); MCHC 31.9 g/dl (32.0-35.9); MEAN CELL VOLUME 98.4 fl (80-96); MEAN PLT VOLUME 8.2 fl (7.5-11.1); PLATELET COUNT 184 10^3/uL (134-434); RDW 17.2 % (11.9-15.9)
[2023-08-16 06:59] LABS: CHLORIDE 105 mmol/L (98-107); SODIUM 142 mmol/L (136-145)
[2023-08-16 07:03] LABS: ANION GAP 7 mmol/L (4-13); CALCIUM 8.7 mg/dL (8.5-10.1); CO2 31 mmol/L (21-32); GLUCOSE,RANDOM 88 mg/dL (74-106)
[2023-08-16 07:04] LABS: ALBUMIN 3.1 g/dl (3.4-5.0); BLOOD UREA NITROGEN 27.4 mg/dL (7-18)
[2023-08-16 07:06] LABS: SGOT/AST 14 U/L (15-37); SGPT/ALT 17 U/L (13-61)
[2023-08-16 07:08] LABS: BILIRUBIN,TOTAL 0.5 mg/dL (0.2-1); TOT PROT 6.1 g/dl (6.4-8.2)
[2023-08-16 07:09] LABS: ALK PHOS 67 U/L (45-117)
[2023-08-16 07:16] LABS: CREATININE 8.7 mg/dL (0.55-1.3)
[2023-08-16] MEDS ORDERED: PREGABALIN 25 MG CAPSULE PO SCH (10:00)
[2023-08-16] MEDS: PANTOPRAZOLE 40 MG TABLET PO SCH (10:21)
[2023-08-16] MEDS ORDERED: SODIUM CHLORIDE 250 ML IV PRN (12:17)
[2023-08-16] MEDS: FLUCONAZOLE 100 MG TABLET (UD) PO SCH (17:44)
[2023-08-16] MEDS: PREGABALIN 25 MG CAPSULE PO SCH (17:44)
[2023-08-17] MEDS ORDERED: POVIDONE-IODINE OINTMENT 10% - 28.4 GM TUBE ONE (11:32)
[2023-08-17] MEDS ORDERED: LIDOCAINE HCL 1%, 10 MG/ML (20ML VIAL) ONE (11:33)
[2023-08-17] MEDS ORDERED: HEPARIN NA (PORCINE) 5,000 UNITS/ML 1ML VIAL ONE (11:33)
[2023-08-17] MEDS ORDERED: MIDAZOLAM HCL 2 MG/2 ML SINGLE DOSE VIAL ONE (12:28)
[2023-08-17] MEDS ORDERED: FENTANYL CITRATE/PF 50 MCG/ML VIAL ONE (12:29)
[2023-08-17] MEDS ORDERED: ROPIVACAINE HCL 0.5% 30ML VIAL ONE ×2 (12:29→12:43)
[2023-08-17] MEDS: ceFAZolin SODIUM 1 GM VIAL IVPB ONE (13:15)
[2023-08-17] MEDS: LIDOCAINE HCL 1%, 10 MG/ML (20ML VIAL) SQ ONE (13:27)
[2023-08-17] MEDS: LIDOCAINE HCL 1%, 10 MG/ML (20ML VIAL) INF ONE (13:27)
[2023-08-17] MEDS ORDERED: SODIUM CHLORIDE 250 ML IV PRN (15:30)
[2023-08-17] MEDS ORDERED: traMADol HCL 50 MG TABLET PO PRN (15:38)
[2023-08-17] MEDS ORDERED: MAG HYDROX/AL HYDROX/SIMETH 30 ML UNIT-DOSE CUP PO PRN (15:38)
[2023-08-17] MEDS ORDERED: hydrALAZINE HCL 20 MG/ML VIAL IVPUSH PRN (15:38)
[2023-08-17] MEDS: FLUCONAZOLE 100 MG TABLET (UD) PO SCH (17:36)
[2023-08-17] MEDS: SEVELAMER CARBONATE 800 MG TAB (FP) PO SCH (17:36)
[2023-08-17] MEDS: LIPASE/PROTEASE/AMYLASE 36,000 UNIT CAPSULE PO SCH (17:36)
[2023-08-17] MEDS: PREGABALIN 25 MG CAPSULE PO SCH (21:41)
[2023-08-17] MEDS: AMITRIPTYLINE HCL 25 MG TABLET PO SCH (21:41)
[2023-08-18] MEDS: ISOSORBIDE MONONITRATE 60 MG TAB.SR.24H (FP) PO SCH (12:56)
[2023-08-18] MEDS: PANTOPRAZOLE 40 MG TABLET PO SCH (12:57)
[2023-08-18] MEDS: VITAMIN B COMP W-C 1 EA TABLET (NEPHRO-VITE) PO SCH (12:57)
[2023-08-18 19:11] VITALS: BP 135/77; PULSE 67; RESP 16; TEMP 97.8
== END 2023-08-18 19:04 | disposition home or self-care (01) | DRG 981 ==
LOC: JER 14:18 → JERBED 18:53 → J8W 20:44 → J4S 08-15 02:25
PROVIDERS: ADMIT Internal Medicine; ATTEND Internal Medicine
PROC: 5A1D70Z Performance of Urinary Filtration, Intermittent, Less than 6 Hours Per Day (ICD-10-PCS; 2023-08-15)
PROC: 5A1D70Z Performance of Urinary Filtration, Intermittent, Less than 6 Hours Per Day (ICD-10-PCS; 2023-08-16)
PROC: 031809D Bypass Left Brachial Artery to Upper Arm Vein with Autologous Venous Tissue, Open Approach (ICD-10-PCS; principal; 2023-08-17 12:00)
PROC: 5A1D70Z Performance of Urinary Filtration, Intermittent, Less than 6 Hours Per Day (ICD-10-PCS; 2023-08-18)
DX: E11.43 Type 2 diabetes mellitus with diabetic autonomic (poly)neuropathy (principal); N18.6 End stage renal disease; K86.1 Other chronic pancreatitis; I13.2 Hypertensive heart and chronic kidney disease with heart failure and with stage 5 chronic kidney disease, or end stage renal disease; I50.32 Chronic diastolic (congestive) heart failure; E11.22 Type 2 diabetes mellitus with diabetic chronic kidney disease; E78.5 Hyperlipidemia, unspecified; K21.9 Gastro-esophageal reflux disease without esophagitis; N40.0 Benign prostatic hyperplasia without lower urinary tract symptoms; F41.8 Other specified anxiety disorders; K31.84 Gastroparesis; R80.9 Proteinuria, unspecified; D64.9 Anemia, unspecified; I16.0 Hypertensive urgency; Z99.2 Dependence on renal dialysis; Z89.422 Acquired absence of other left toe(s); Z89.421 Acquired absence of other right toe(s); Z86.718 Personal history of other venous thrombosis and embolism
CPT/HCPCS: 0241U-QW; 36415; 71045-TC-FY; 80053; 82272; 82962; 83605; 83690; 83735; 84100; 84484; 85025; 85027; 85610; 85730; 86704; 86803; 86850; 86900; 86901; 87340; 87517; 93005; 93010; 93986; 94760; 99285-25; J0131; J1644

== ENCOUNTER 2024-01-01 15:36 | Inpatient (IN) | payer OTHER ==
[2024-01-01] MEDS ORDERED: ACETAMINOPHEN INJECTION 100 ML ONE (16:58)
[2024-01-01] MEDS ORDERED: METOCLOPRAMIDE HCL INJECTION 10 MG/2 ML VIAL ONE (16:58)
[2024-01-01] MEDS ORDERED: FAMOTIDINE 20 MG/50 ML IVPB 20 MG/50 ML MG IVPB ONE (16:58)
[2024-01-01] MEDS: FAMOTIDINE 20 MG/50 ML IVPB 20 MG/50 ML MG IVPB ONE (17:04)
[2024-01-01] MEDS: ACETAMINOPHEN 1000 MG/100 ML BAG IVPB ONE (17:04)
[2024-01-01] MEDS: METOCLOPRAMIDE HCL INJECTION 10 MG/2 ML VIAL IVPB ONE (17:04)
[2024-01-01 17:10] LABS: BASO % 0.4 % (0-2.0); EOS % 0.1 % (0-4.5); HEMATOCRIT 37.7 % (35.4-49); HEMOGLOBIN 12.7 GM/dL (11.7-16.9); LYMPH % 14.8 % (8-40); MCH 32.3 pg (25.7-33.7); MCHC 33.6 g/dl (32.0-35.9); MEAN CELL VOLUME 96.1 fl (80-96); MEAN PLT VOLUME 8.1 fl (7.5-11.1); MONO % 3.7 % (3.8-10.2); PLATELET COUNT 206 10^3/uL (134-434); RBC 3.92 M/mm3 (4.00-5.60); RDW 15.8 % (11.9-15.9); WHITE BLOOD COUNT 9.1 K/mm3 (4.0-10.0)
[2024-01-01 17:22] LABS: CHLORIDE 105 mmol/L (98-107); POTASSIUM 4.4 mmol/L (3.5-5.1); SODIUM 142 mmol/L (136-145)
[2024-01-01] MEDS ORDERED: HYDROmorphone HCL CARPU-JECT 2 MG/1 ML DISP.SYRIN ONE ×2 (17:23→22:59)
[2024-01-01] MEDS ORDERED: PANTOPRAZOLE SODIUM 40 MG VIAL ONE (17:24)
[2024-01-01 17:25] LABS: ALBUMIN 4.3 g/dl (3.4-5.0); ANION GAP 9 mmol/L (4-13); BLOOD UREA NITROGEN 48.4 mg/dL (7-18); CALCIUM 9.2 mg/dL (8.5-10.1); CO2 28 mmol/L (21-32); GLUCOSE,RANDOM 128 mg/dL (74-106)
[2024-01-01 17:28] LABS: SGOT/AST 16 U/L (15-37); SGPT/ALT 23 U/L (13-61)
[2024-01-01] MEDS: HYDROmorphone HCl 2 MG/ML VIAL IVPUSH ONE (17:28)
[2024-01-01] MEDS: PANTOPRAZOLE SODIUM 40 MG VIAL IVPUSH ONE (17:28)
[2024-01-01 17:30] LABS: BILIRUBIN,TOTAL 0.4 mg/dL (0.2-1); CREATININE 13.8 mg/dL (0.55-1.3); TOT PROT 8.1 g/dl (6.4-8.2)
[2024-01-01 17:31] LABS: ALK PHOS 142 U/L (45-117)
[2024-01-01 20:16] LABS: BASO % 0.3 % (0-2.0); EOS % 0.1 % (0-4.5); HEMATOCRIT 36.6 % (35.4-49); HEMOGLOBIN 12.3 GM/dL (11.7-16.9); LYMPH % 14.7 % (8-40); MCH 32.4 pg (25.7-33.7); MCHC 33.6 g/dl (32.0-35.9); MEAN CELL VOLUME 96.2 fl (80-96); MONO % 4.5 % (3.8-10.2); NEUT % 80.4 % (42.8-82.8); PLATELET COUNT 196 10^3/uL (134-434); RBC 3.81 M/mm3 (4.00-5.60); RDW 15.4 % (11.9-15.9)
[2024-01-01] MEDS ORDERED: traMADol HCL 50 MG TABLET PO PRN (22:32)
[2024-01-01] MEDS ORDERED: ACETAMINOPHEN 325 MG TABLET (FP) PO PRN (22:46)
[2024-01-01] MEDS ORDERED: MAG HYDROX/AL HYDROX/SIMETH 30 ML UNIT-DOSE CUP PO PRN (22:46)
[2024-01-01] MEDS: HYDROmorphone HCL CARPU-JECT 2 MG/1 ML DISP.SYRIN IVPUSH ONE (23:03)
[2024-01-02] MEDS ORDERED: ACETAMINOPHEN 1000 MG/100 ML BAG IVPB PRN (00:05)
[2024-01-02] MEDS ORDERED: LABETALOL HCL 5 MG/1 ML (100MG/20 ML VIAL) IVPUSH PRN (00:12)
[2024-01-02] MEDS: LABETALOL HCL 5 MG/1 ML (100MG/20 ML VIAL) IVPUSH ONE (00:29)
[2024-01-02] MEDS ORDERED: TRIMETHOBENZAMIDE HCL 200MG/2ML INJ IM PRN (02:39)
[2024-01-02] MEDS ORDERED: ONDANSETRON 4 MG/2 ML VIAL IVPUSH PRN (02:56)
[2024-01-02] MEDS: ONDANSETRON 4 MG/2 ML VIAL IVPUSH ONE (04:19)
[2024-01-02] MEDS: METOCLOPRAMIDE HCL INJECTION 10 MG/2 ML VIAL IVPUSH ONE (05:58)
[2024-01-02] MEDS: PANTOPRAZOLE SODIUM 40 MG VIAL IVPUSH SCH (06:37)
[2024-01-02] MEDS ORDERED: ESMOLOL 2500 MG/250 ML 2,500,000 MCG/250 ML INFUS.BAG IVPB SCH (07:30)
[2024-01-02] MEDS ORDERED: SODIUM CHLORIDE 250 ML IV PRN (08:05)
[2024-01-02] MEDS: TRIMETHOBENZAMIDE HCL 200MG/2ML INJ IM ONE (08:07)
[2024-01-02] MEDS: SEVELAMER CARBONATE 800 MG TAB (FP) PO SCH (08:51)
[2024-01-02] MEDS: METOCLOPRAMIDE HCL INJECTION 10 MG/2 ML VIAL IVPUSH SCH (08:51)
[2024-01-02] MEDS: hydrALAZINE HCL 20 MG/ML VIAL IVPUSH ONE (08:54)
[2024-01-02 08:58] LABS: BASO % 0.4 % (0-2.0); EOS % 0.4 % (0-4.5); HEMATOCRIT 34.1 % (35.4-49); HEMOGLOBIN 11.4 GM/dL (11.7-16.9); LYMPH % 17.2 % (8-40); MCH 32.3 pg (25.7-33.7); MCHC 33.4 g/dl (32.0-35.9); MEAN CELL VOLUME 96.5 fl (80-96); MEAN PLT VOLUME 7.8 fl (7.5-11.1); PLATELET COUNT 191 10^3/uL (134-434); RBC 3.54 M/mm3 (4.00-5.60); RDW 15.6 % (11.9-15.9); WHITE BLOOD COUNT 8.3 K/mm3 (4.0-10.0)
[2024-01-02 09:13] LABS: CHLORIDE 107 mmol/L (98-107); POTASSIUM 4.5 mmol/L (3.5-5.1); SODIUM 142 mmol/L (136-145)
[2024-01-02 09:15] LABS: CALCIUM 8.6 mg/dL (8.5-10.1)
[2024-01-02 09:16] LABS: ALBUMIN 3.7 g/dl (3.4-5.0); ANION GAP 8 mmol/L (4-13); BLOOD UREA NITROGEN 52.9 mg/dL (7-18); CO2 28 mmol/L (21-32); GLUCOSE,RANDOM 101 mg/dL (74-106); MAGNESIUM 4.1 mg/dL (1.8-2.4)
[2024-01-02 09:19] LABS: PHOSPHOROUS 4.9 mg/dL (2.5-4.9); SGOT/AST 15 U/L (15-37); SGPT/ALT 20 U/L (13-61)
[2024-01-02 09:20] LABS: BILIRUBIN,TOTAL 0.4 mg/dL (0.2-1); TOT PROT 6.9 g/dl (6.4-8.2)
[2024-01-02 09:22] LABS: ALK PHOS 132 U/L (45-117)
[2024-01-02] MEDS ORDERED: cloNIDine-TTS 0.2 MG/24 HOURS PATCH.TDWK TD SCH (10:00)
[2024-01-02] MEDS ORDERED: PANTOPRAZOLE 40 MG TABLET PO SCH (10:00)
[2024-01-02] MEDS: LOSARTAN POTASSIUM 50 MG TABLET PO SCH (10:01)
[2024-01-02 15:28] VITALS: BMI 22.8
[2024-01-03] MEDS: PATIENT'S OWN MEDICATION (NON-FORMULARY) (Lipase/Protease/Amylase [Zenpep Dr 40,000 Unit C PO SCH (09:39)
[2024-01-03 09:53] LABS: BASO % 0.8 % (0-2.0); EOS % 1.1 % (0-4.5); HEMATOCRIT 35.1 % (35.4-49); HEMOGLOBIN 11.4 GM/dL (11.7-16.9); LYMPH % 29.6 % (8-40); MCH 31.7 pg (25.7-33.7); MCHC 32.4 g/dl (32.0-35.9); MEAN CELL VOLUME 97.8 fl (80-96); MEAN PLT VOLUME 8.2 fl (7.5-11.1); MONO % 7.7 % (3.8-10.2); NEUT % 60.8 % (42.8-82.8); PLATELET COUNT 178 10^3/uL (134-434); RBC 3.59 M/mm3 (4.00-5.60); RDW 15.6 % (11.9-15.9); WHITE BLOOD COUNT 6.9 K/mm3 (4.0-10.0)
[2024-01-03 10:26] LABS: CALCIUM 8.1 mg/dL (8.5-10.1)
[2024-01-03 10:27] LABS: BLOOD UREA NITROGEN 30.6 mg/dL (7-18); CO2 28 mmol/L (21-32); GLUCOSE,RANDOM 141 mg/dL (74-106)
[2024-01-03 10:28] LABS: ANION GAP 10 mmol/L (4-13); CHLORIDE 99 mmol/L (98-107); POTASSIUM 4.1 mmol/L (3.5-5.1); SODIUM 138 mmol/L (136-145)
[2024-01-03] MEDS: METOCLOPRAMIDE HCL 10 MG TABLET (FP) PO SCH (10:36)
[2024-01-03] MEDS: ISOSORBIDE MONONITRATE 30 MG TAB.SR.24H (FP) PO SCH (10:36)
[2024-01-03 10:37] LABS: CREATININE 11.1 mg/dL (0.55-1.3)
[2024-01-03] MEDS ORDERED: SODIUM CHLORIDE 250 ML IV PRN (11:06)
[2024-01-03] MEDS ORDERED: LABETALOL HCL 5 MG/1 ML (100MG/20 ML VIAL) IVPUSH PRN (11:25)
[2024-01-03] MEDS: LIPASE/PROTEASE/AMYLASE 36,000 UNIT CAPSULE PO SCH (14:23)
[2024-01-03] MEDS ORDERED: FAMOTIDINE 20 MG/50 ML IVPB 20 MG/50 ML MG IVPB SCH (16:00)
[2024-01-04 13:40] VITALS: PULSE 80; RESP 20; TEMP 98.2
[2024-01-04] MEDS: MIDODRINE HCL 5 MG TABLET PO ONE (13:54)
[2024-01-04 15:03] VITALS: BP 102/66
== END 2024-01-04 16:49 | disposition home or self-care (01) | DRG 73 ==
LOC: JER 15:36 → JERBED 17:42 → J7W 01-02 01:47
PROVIDERS: ADMIT Internal Medicine; ATTEND Nurse Practitioner
PROC: 5A1D70Z Performance of Urinary Filtration, Intermittent, Less than 6 Hours Per Day (ICD-10-PCS; principal; 2024-01-03)
DX: E11.43 Type 2 diabetes mellitus with diabetic autonomic (poly)neuropathy (principal); N18.6 End stage renal disease; I13.2 Hypertensive heart and chronic kidney disease with heart failure and with stage 5 chronic kidney disease, or end stage renal disease; I50.32 Chronic diastolic (congestive) heart failure; I16.0 Hypertensive urgency; K31.84 Gastroparesis; Z99.2 Dependence on renal dialysis; E11.22 Type 2 diabetes mellitus with diabetic chronic kidney disease; K86.89 Other specified diseases of pancreas
CPT/HCPCS: 0241U-QW; 36415; 71045-TC-FY; 76705-TC; 80048; 80053; 82962; 83690; 83735; 84100; 84484; 85025; 86803; 87340; 93005; 93010; 99285-25; J0131

== ENCOUNTER 2024-01-24 08:13 | Observation (INO) | payer OTHER ==
[2024-01-24 08:42] VITALS: BMI 22.5
[2024-01-24 09:10] LABS: BASO % 0.4 % (0-2.0); EOS % 0.3 % (0-4.5); HEMATOCRIT 38.2 % (35.4-49); HEMOGLOBIN 12.4 GM/dL (11.7-16.9); MCH 31.8 pg (25.7-33.7); MCHC 32.5 g/dl (32.0-35.9); MEAN CELL VOLUME 97.8 fl (80-96); MEAN PLT VOLUME 8.2 fl (7.5-11.1); MONO % 5.5 % (3.8-10.2); NEUT % 78.8 % (42.8-82.8); PLATELET COUNT 199 10^3/uL (134-434); RBC 3.91 M/mm3 (4.00-5.60); RDW 15.3 % (11.9-15.9); WHITE BLOOD COUNT 8.1 K/mm3 (4.0-10.0)
[2024-01-24 09:17] LABS: INR 1.01 (0.83-1.09); PROTHROMBIN TIME (PATIENT) 11.4 SEC (9.7-13.0)
[2024-01-24 09:19] LABS: ACTIVATED PTT 30.4 SECONDS (25.2-36.5)
[2024-01-24] MEDS ORDERED: HALOPERIDOL LACTATE 5 MG/ML ONE (09:25)
[2024-01-24] MEDS: HALOPERIDOL LACTATE 5 MG/ML IM ONE (09:34)
[2024-01-24 09:39] LABS: CHLORIDE 105 mmol/L (98-107); POTASSIUM 4.2 mmol/L (3.5-5.1); SODIUM 143 mmol/L (136-145)
[2024-01-24 09:40] LABS: CALCIUM 9.7 mg/dL (8.5-10.1)
[2024-01-24 09:41] LABS: ALBUMIN 4.2 g/dl (3.4-5.0); ANION GAP 11 mmol/L (4-13); BLOOD UREA NITROGEN 41.6 mg/dL (7-18); CO2 27 mmol/L (21-32); GLUCOSE,RANDOM 134 mg/dL (74-106)
[2024-01-24 09:44] LABS: SGOT/AST 22 U/L (15-37); SGPT/ALT 22 U/L (13-61)
[2024-01-24 09:46] LABS: BILIRUBIN,TOTAL 0.4 mg/dL (0.2-1); TOT PROT 7.7 g/dl (6.4-8.2)
[2024-01-24 09:47] LABS: ALK PHOS 169 U/L (45-117)
[2024-01-24 09:48] LABS: CREATININE 11.8 mg/dL (0.55-1.3)
[2024-01-24] MEDS ORDERED: SODIUM CHLORIDE 250 ML IV PRN (12:45)
[2024-01-24] MEDS ORDERED: LIDOCAINE HCL 1%, 10 MG/ML (20ML VIAL) ONE (13:54)
[2024-01-24] MEDS ORDERED: PAPAVERINE HCL 30 MG/1 ML 10 ML VIAL NR ONE (13:54)
[2024-01-24] MEDS ORDERED: HEPARIN NA (PORCINE) 5,000 UNITS/ML 1ML VIAL ONE (13:54)
[2024-01-24] MEDS ORDERED: MIDODRINE HCL 5 MG TABLET PO PRN ×2 (15:31→18:43)
[2024-01-24] MEDS ORDERED: MAG HYDROX/AL HYDROX/SIMETH 30 ML UNIT-DOSE CUP PO PRN ×2 (15:31→18:43)
[2024-01-24] MEDS ORDERED: PROMETHAZINE HCL 25 MG/1 ML VIAL IVPB PRN ×2 (16:48→18:43)
[2024-01-24] MEDS ORDERED: oxyCODONE HCL 5 MG TABLET PO PRN ×3 (16:48→19:00)
[2024-01-24] MEDS ORDERED: ONDANSETRON 4 MG/2 ML VIAL IVPUSH PRN ×2 (16:48→18:43)
[2024-01-24] MEDS ORDERED: ceFAZolin SODIUM 1 GM VIAL ONE (16:56)
[2024-01-24] MEDS ORDERED: METOCLOPRAMIDE HCL INJECTION 10 MG/2 ML VIAL ONE (16:56)
[2024-01-24] MEDS ORDERED: DEXAMETHASONE SOD PHOSPHATE 4 MG/1 ML VIAL ONE (16:56)
[2024-01-24] MEDS ORDERED: MIDAZOLAM HCL 2 MG/2 ML SINGLE DOSE VIAL ONE (16:56)
[2024-01-24] MEDS ORDERED: PROPOFOL 20 ML ONE (16:58)
[2024-01-24] MEDS ORDERED: SODIUM CHLORIDE 1,000 ML IV SCH (17:00)
[2024-01-24] MEDS: ceFAZolin SODIUM 1 GM VIAL IVPB ONE (17:23)
[2024-01-24] MEDS ORDERED: SEVELAMER CARBONATE 800 MG TAB (FP) PO SCH (17:30)
[2024-01-24] MEDS: SODIUM CHLORIDE 1,000 ML IV SCH (18:26)
[2024-01-24] MEDS ORDERED: ACETAMINOPHEN 325 MG TABLET (FP) PO PRN (19:00)
[2024-01-24 22:35] VITALS: RESP 18
[2024-01-25] MEDS: SEVELAMER CARBONATE 800 MG TAB (FP) PO SCH (09:12)
[2024-01-25] MEDS ORDERED: ISOSORBIDE MONONITRATE 30 MG TAB.SR.24H (FP) PO SCH (10:00)
[2024-01-25] MEDS ORDERED: PANTOPRAZOLE 40 MG TABLET PO SCH (10:00)
[2024-01-25] MEDS ORDERED: LOSARTAN POTASSIUM 50 MG TABLET PO SCH (10:00)
[2024-01-25] MEDS ORDERED: SODIUM CHLORIDE 250 ML IV PRN (11:04)
[2024-01-25] MEDS: LOSARTAN POTASSIUM 50 MG TABLET PO SCH (12:41)
[2024-01-25] MEDS: PANTOPRAZOLE 40 MG TABLET PO SCH (12:41)
[2024-01-25] MEDS: ISOSORBIDE MONONITRATE 30 MG TAB.SR.24H (FP) PO SCH (12:41)
[2024-01-25 15:52] VITALS: BP 97/61; PULSE 71; TEMP 99
== END 2024-01-25 16:25 | disposition home or self-care (01) ==
LOC: JER 08:13 → JERBED 15:29 → J6W 19:47
PROVIDERS: ADMIT Internal Medicine
PROC: 3E023GC Introduction of Other Therapeutic Substance into Muscle, Percutaneous Approach (ICD-10-PCS; 2024-01-24)
PROC: 3E0337Z Introduction of Electrolytic and Water Balance Substance into Peripheral Vein, Percutaneous Approach (ICD-10-PCS; 2024-01-24)
PROC: 03183ZF Bypass Left Brachial Artery to Lower Arm Vein, Percutaneous Approach (ICD-10-PCS; principal; 2024-01-24 16:00)
DX: I12.0 Hypertensive chronic kidney disease with stage 5 chronic kidney disease or end stage renal disease (principal); Z99.2 Dependence on renal dialysis; E11.22 Type 2 diabetes mellitus with diabetic chronic kidney disease; D64.9 Anemia, unspecified; Z86.16 Personal history of COVID-19; K31.84 Gastroparesis; R80.9 Proteinuria, unspecified; N18.9 Chronic kidney disease, unspecified; N40.0 Benign prostatic hyperplasia without lower urinary tract symptoms; Z91.011 Allergy to milk products
CPT/HCPCS: 36415; 80053; 82962; 84484; 85025; 85610; 85730; 86850; 86900; 86901; 93005; 93010; 94760; 96360; 99285-25; G0378; J1644

== ENCOUNTER 2024-03-01 14:00 | Inpatient (IN) | payer OTHER ==
[2024-03-01] MEDS ORDERED: HALOPERIDOL LACTATE 5 MG/ML ONE (15:02)
[2024-03-01] MEDS ORDERED: HYDROmorphone HCl 2 MG/ML VIAL ONE (15:09)
[2024-03-01] MEDS: HYDROmorphone HCl 2 MG/ML VIAL IVPUSH ONE (15:19)
[2024-03-01] MEDS: HALOPERIDOL LACTATE 5 MG/ML IM ONE (15:19)
[2024-03-01 15:24] LABS: BASO % 0.4 % (0-2.0); EOS % 0.1 % (0-4.5); HEMATOCRIT 36.4 % (35.4-49); HEMOGLOBIN 11.8 GM/dL (11.7-16.9); LYMPH % 10.8 % (8-40); MCH 31.1 pg (25.7-33.7); MCHC 32.4 g/dl (32.0-35.9); MEAN CELL VOLUME 96.1 fl (80-96); MEAN PLT VOLUME 7.5 fl (7.5-11.1); MONO % 5.6 % (3.8-10.2); NEUT % 83.1 % (42.8-82.8); PLATELET COUNT 308 10^3/uL (134-434); RBC 3.79 M/mm3 (4.00-5.60); RDW 14.5 % (11.9-15.9); WHITE BLOOD COUNT 13.4 K/mm3 (4.0-10.0)
[2024-03-01 15:31] LABS: VENOUS BASE EXCESS 6.7 mmol/L (-2-2); VENOUS PCO2 45.1 mmHg (38-52); VENOUS PH 7.461 (7.310-7.410)
[2024-03-01 15:32] LABS: INR 1.08 (0.83-1.09); PROTHROMBIN TIME (PATIENT) 12.2 SEC (9.7-13.0)
[2024-03-01] MEDS ORDERED: FAMOTIDINE 20 MG/50 ML IVPB 20 MG/50 ML MG IVPB ONE (15:34)
[2024-03-01 15:35] LABS: ACTIVATED PTT 33.8 SECONDS (25.2-36.5)
[2024-03-01] MEDS: FAMOTIDINE 20 MG/50 ML IVPB 20 MG/50 ML MG IVPB ONE (15:47)
[2024-03-01 16:04] LABS: CHLORIDE 98 mmol/L (98-107); POTASSIUM 3.5 mmol/L (3.5-5.1); SODIUM 139 mmol/L (136-145)
[2024-03-01 16:07] LABS: ANION GAP 8 mmol/L (4-13); BLOOD UREA NITROGEN 30.2 mg/dL (7-18); CO2 33 mmol/L (21-32); GLUCOSE,RANDOM 137 mg/dL (74-106)
[2024-03-01 16:10] LABS: SGOT/AST 16 U/L (15-37); SGPT/ALT 17 U/L (13-61)
[2024-03-01 16:11] LABS: BILIRUBIN,TOTAL 0.4 mg/dL (0.2-1); TOT PROT 8.1 g/dl (6.4-8.2)
[2024-03-01 16:13] LABS: ALK PHOS 141 U/L (45-117)
[2024-03-01 16:38] LABS: CREATININE 11.7 mg/dL (0.55-1.3)
[2024-03-01] MEDS ORDERED: MIDODRINE HCL 5 MG TABLET PO PRN (16:43)
[2024-03-01] MEDS ORDERED: TRIMETHOBENZAMIDE HCL 200MG/2ML INJ IM PRN (16:52)
[2024-03-01 19:53] LABS: ALBUMIN 3.8 g/dl (3.4-5.0); CALCIUM 10.1 mg/dL (8.5-10.1); CO2 30 mmol/L (21-32); MAGNESIUM 3.1 mg/dL (1.8-2.4)
[2024-03-01 19:55] LABS: GLUCOSE,RANDOM 129 mg/dL (74-106)
[2024-03-01 19:57] LABS: PHOSPHOROUS 3.6 mg/dL (2.5-4.9)
[2024-03-01 19:58] LABS: BILIRUBIN,TOTAL 0.4 mg/dL (0.2-1); TOT PROT 7.7 g/dl (6.4-8.2)
[2024-03-01 20:00] LABS: ALK PHOS 132 U/L (45-117)
[2024-03-01 20:01] LABS: SGPT/ALT 14 U/L (13-61)
[2024-03-01 20:02] LABS: ANION GAP 11 mmol/L (4-13); CHLORIDE 100 mmol/L (98-107); POTASSIUM 3.6 mmol/L (3.5-5.1); SODIUM 141 mmol/L (136-145)
[2024-03-01 20:04] LABS: CREATININE 11.8 mg/dL (0.55-1.3)
[2024-03-01 20:05] LABS: SGOT/AST 16 U/L (15-37)
[2024-03-01 20:08] LABS: BLOOD UREA NITROGEN 30.1 mg/dL (7-18)
[2024-03-01] MEDS: INSULIN ASPART SLIDING SCALE (NOVOLOG) 1 VIAL SQ SCH (21:28)
[2024-03-01] MEDS: HEPARIN NA (PORCINE) 5,000 UNITS/ML 1ML VIAL SQ SCH (21:28)
[2024-03-02 05:11] VITALS: BMI 22.6
[2024-03-02] MEDS: ISOSORBIDE MONONITRATE 30 MG TAB.SR.24H (FP) PO SCH (09:45)
[2024-03-02] MEDS: LOSARTAN POTASSIUM 50 MG TABLET PO SCH (09:45)
[2024-03-02] MEDS: PANTOPRAZOLE 40 MG TABLET PO SCH (09:45)
[2024-03-02] MEDS ORDERED: SODIUM CHLORIDE 250 ML IV PRN (14:53)
[2024-03-02] MEDS: ACETAMINOPHEN 1000 MG/100 ML BAG IVPB PRN (22:31)
[2024-03-03 08:32] LABS: BASO % 0.5 % (0-2.0); EOS % 0.6 % (0-4.5); HEMOGLOBIN 11.1 GM/dL (11.7-16.9); LYMPH % 22.5 % (8-40); MCH 31.9 pg (25.7-33.7); MCHC 32.6 g/dl (32.0-35.9); MEAN CELL VOLUME 97.7 fl (80-96); MEAN PLT VOLUME 7.6 fl (7.5-11.1); MONO % 8.2 % (3.8-10.2); NEUT % 68.2 % (42.8-82.8); PLATELET COUNT 309 10^3/uL (134-434); RBC 3.48 M/mm3 (4.00-5.60); RDW 14.6 % (11.9-15.9); WHITE BLOOD COUNT 11.6 K/mm3 (4.0-10.0)
[2024-03-03 08:43] LABS: CHLORIDE 99 mmol/L (98-107); POTASSIUM 3.7 mmol/L (3.5-5.1); SODIUM 138 mmol/L (136-145)
[2024-03-03 08:44] LABS: ANION GAP 8 mmol/L (4-13); BLOOD UREA NITROGEN 24.3 mg/dL (7-18); CALCIUM 9.7 mg/dL (8.5-10.1); CO2 31 mmol/L (21-32); GLUCOSE,RANDOM 88 mg/dL (74-106)
[2024-03-03 08:52] LABS: CREATININE 9.8 mg/dL (0.55-1.3)
[2024-03-03] MEDS: VITAMIN B COMP W-C 1 EA TABLET (NEPHRO-VITE) PO SCH (09:06)
[2024-03-03] MEDS: COLLAGENASE CLOSTRIDIUM HIST. 30 GRAMS TUBE TP SCH (15:23)
[2024-03-03] MEDS ORDERED: SODIUM CHLORIDE 250 ML IV PRN (19:01)
[2024-03-03] MEDS: VANCOMYCIN/WATER FOR INJ (PEG) 1,000 MG/200 ML BAG IVPB ONE (21:23)
[2024-03-04 11:00] LABS: BASO % 0.2 % (0-2.0); EOS % 0.7 % (0-4.5); HEMATOCRIT 32.2 % (35.4-49); HEMOGLOBIN 10.5 GM/dL (11.7-16.9); MCH 31.9 pg (25.7-33.7); MCHC 32.5 g/dl (32.0-35.9); MEAN CELL VOLUME 98.2 fl (80-96); MEAN PLT VOLUME 7.4 fl (7.5-11.1); MONO % 8.2 % (3.8-10.2); NEUT % 72.9 % (42.8-82.8); PLATELET COUNT 291 10^3/uL (134-434); RBC 3.28 M/mm3 (4.00-5.60); RDW 14.4 % (11.9-15.9)
[2024-03-04 11:45] LABS: CHLORIDE 97 mmol/L (98-107); POTASSIUM 3.9 mmol/L (3.5-5.1); SODIUM 136 mmol/L (136-145)
[2024-03-04 11:49] LABS: ANION GAP 7 mmol/L (4-13); BLOOD UREA NITROGEN 36.1 mg/dL (7-18); CO2 32 mmol/L (21-32)
[2024-03-04 11:52] LABS: GLUCOSE,RANDOM 116 mg/dL (74-106)
[2024-03-04 12:17] LABS: CREATININE 12.7 mg/dL (0.55-1.3)
[2024-03-04 12:27] VITALS: RESP 18
[2024-03-04] MEDS ORDERED: VANCOMYCIN/WATER FOR INJ (PEG) 1,000 MG/200 ML BAG IVPB ONE (14:30)
[2024-03-04] MEDS: VANCOMYCIN/WATER FOR INJ (PEG) 1,000 MG/200 ML BAG IVPB ONE (15:40)
[2024-03-04 15:46] VITALS: BP 138/74; PULSE 83; TEMP 98.1
== END 2024-03-04 17:04 | disposition home or self-care (01) | DRG 73 ==
LOC: JER 14:00 → JERBED 15:36 → J7W 20:08 → OBSVTOIN 03-03 13:48
PROVIDERS: ADMIT Internal Medicine
PROC: 5A1D70Z Performance of Urinary Filtration, Intermittent, Less than 6 Hours Per Day (ICD-10-PCS; principal; 2024-03-04)
DX: E11.43 Type 2 diabetes mellitus with diabetic autonomic (poly)neuropathy (principal); N18.6 End stage renal disease; I13.2 Hypertensive heart and chronic kidney disease with heart failure and with stage 5 chronic kidney disease, or end stage renal disease; I50.32 Chronic diastolic (congestive) heart failure; E87.3 Alkalosis; E11.51 Type 2 diabetes mellitus with diabetic peripheral angiopathy without gangrene; E11.621 Type 2 diabetes mellitus with foot ulcer; E11.22 Type 2 diabetes mellitus with diabetic chronic kidney disease; Z99.2 Dependence on renal dialysis; K31.84 Gastroparesis; D63.1 Anemia in chronic kidney disease; L97.529 Non-pressure chronic ulcer of other part of left foot with unspecified severity; I25.10 Atherosclerotic heart disease of native coronary artery without angina pectoris; L97.519 Non-pressure chronic ulcer of other part of right foot with unspecified severity; E78.5 Hyperlipidemia, unspecified; R80.9 Proteinuria, unspecified; N40.0 Benign prostatic hyperplasia without lower urinary tract symptoms; D72.829 Elevated white blood cell count, unspecified; K21.9 Gastro-esophageal reflux disease without esophagitis
CPT/HCPCS: 36415; 71045-TC-FY; 73700-TC-RT; 80048; 80053; 82803; 82962; 83690; 83735; 84100; 84484; 85025; 85610; 85730; 86803; 87340; 93005; 93010; 99285-25; G0378; G0480; J0131; J1644

== ENCOUNTER 2024-03-07 05:12 | Day surgery (SDC) | payer OTHER ==
[2024-03-05 15:58] VITALS: BMI 22.5
[2024-03-07] MEDS ORDERED: LIDOCAINE HCL 1%, 10 MG/ML (20ML VIAL) ONE (10:11)
[2024-03-07] MEDS ORDERED: HEPARIN NA (PORCINE) 5,000 UNITS/ML 1ML VIAL ONE (10:11)
[2024-03-07] MEDS ORDERED: PROPOFOL 60 ML ONE (10:31)
[2024-03-07] MEDS ORDERED: MIDAZOLAM HCL 2 MG/2 ML SINGLE DOSE VIAL ONE (10:31)
[2024-03-07] MEDS: ceFAZolin SODIUM 1 GM VIAL IVPB ONE (10:50)
[2024-03-07] MEDS: LIDOCAINE HCL 1%, 10 MG/ML (20ML VIAL) INF ONE (10:52)
[2024-03-07] MEDS ORDERED: PROPOFOL 40 ML ONE (11:16)
[2024-03-07] MEDS ORDERED: oxyCODONE HCL 5 MG TABLET PO PRN (13:00)
[2024-03-07] MEDS ORDERED: ACETAMINOPHEN 325 MG TABLET (FP) PO PRN (13:00)
[2024-03-07 14:12] VITALS: RESP 20; TEMP 97.5
[2024-03-07 16:47] VITALS: BP 123/71; PULSE 67
== END 2024-03-07 16:13 | disposition home or self-care (01) ==
LOC: JASU-SURG 05:12
PROVIDERS: ATTEND Surgery
PROC: 03180ZD Bypass Left Brachial Artery to Upper Arm Vein, Open Approach (ICD-10-PCS; principal; 2024-03-07 09:30)
DX: I12.9 Hypertensive chronic kidney disease with stage 1 through stage 4 chronic kidney disease, or unspecified chronic kidney disease (principal); E11.22 Type 2 diabetes mellitus with diabetic chronic kidney disease; N18.9 Chronic kidney disease, unspecified
CPT/HCPCS: 36415; 84132; 94760; J1644

== ENCOUNTER 2024-04-01 14:11 | Observation (INO) | payer OTHER ==
[2024-04-01 14:21] VITALS: BMI 22.5
[2024-04-01 15:15] LABS: BASO % 0.7 % (0-2.0); EOS % 1.5 % (0-4.5); HEMATOCRIT 30.5 % (35.4-49); HEMOGLOBIN 9.9 GM/dL (11.7-16.9); LYMPH % 28.5 % (8-40); MCH 31.2 pg (25.7-33.7); MCHC 32.6 g/dl (32.0-35.9); MEAN CELL VOLUME 95.7 fl (80-96); MONO % 6.8 % (3.8-10.2); NEUT % 62.5 % (42.8-82.8); PLATELET COUNT 193 10^3/uL (134-434); RBC 3.18 M/mm3 (4.00-5.60); RDW 14.9 % (11.9-15.9); WHITE BLOOD COUNT 5.9 K/mm3 (4.0-10.0)
[2024-04-01 15:22] LABS: INR 1.02 (0.83-1.09); PROTHROMBIN TIME (PATIENT) 11.7 SEC (9.7-13.0)
[2024-04-01 15:25] LABS: ACTIVATED PTT 32.4 SECONDS (25.2-36.5)
[2024-04-01 15:39] LABS: POTASSIUM 3.3 mmol/L (3.5-5.1)
[2024-04-01 15:41] LABS: ALBUMIN 3.3 g/dl (3.4-5.0); CALCIUM 8.5 mg/dL (8.5-10.1)
[2024-04-01 15:42] LABS: BLOOD UREA NITROGEN 18.3 mg/dL (7-18)
[2024-04-01 15:45] LABS: CREATININE 5.3 mg/dL (0.55-1.3)
[2024-04-01 15:46] LABS: BILIRUBIN,TOTAL 0.3 mg/dL (0.2-1); TOT PROT 6.6 g/dl (6.4-8.2)
[2024-04-01 16:36] LABS: HIV INTERPRETATION NEGATIVE (NEGATIVE)
[2024-04-01] MEDS ORDERED: SEVELAMER CARBONATE 800 MG TAB (FP) ONE (19:27)
[2024-04-01] MEDS ORDERED: PANTOPRAZOLE 40 MG TABLET PO ONE (19:27)
[2024-04-02 08:24] LABS: HEMATOCRIT 32.6 % (35.4-49); HEMOGLOBIN 10.5 GM/dL (11.7-16.9); MCHC 32.3 g/dl (32.0-35.9); MEAN CELL VOLUME 96.2 fl (80-96); RBC 3.39 M/mm3 (4.00-5.60); RDW 15.2 % (11.9-15.9); WHITE BLOOD COUNT 7.2 K/mm3 (4.0-10.0)
[2024-04-02 08:29] LABS: CHLORIDE 105 mmol/L (98-107); POTASSIUM 3.5 mmol/L (3.5-5.1); SODIUM 140 mmol/L (136-145)
[2024-04-02 08:34] LABS: ALBUMIN 3.3 g/dl (3.4-5.0); ANION GAP 6 mmol/L (4-13); BLOOD UREA NITROGEN 29.7 mg/dL (7-18); CO2 29 mmol/L (21-32); GLUCOSE,RANDOM 87 mg/dL (74-106); MAGNESIUM 2.7 mg/dL (1.8-2.4)
[2024-04-02 08:37] LABS: SGOT/AST 17 U/L (15-37); SGPT/ALT 16 U/L (13-61)
[2024-04-02 08:38] LABS: BILIRUBIN,TOTAL 0.3 mg/dL (0.2-1); PHOSPHOROUS 2.8 mg/dL (2.5-4.9); TOT PROT 6.5 g/dl (6.4-8.2)
[2024-04-02 08:40] LABS: ALK PHOS 146 U/L (45-117)
[2024-04-02 08:42] LABS: CREATININE 7.6 mg/dL (0.55-1.3)
[2024-04-02] MEDS: SEVELAMER CARBONATE 800 MG TAB (FP) PO SCH (09:29)
[2024-04-02] MEDS: PANTOPRAZOLE 40 MG TABLET PO SCH (09:30)
[2024-04-02] MEDS ORDERED: MIDODRINE HCL 5 MG TABLET PO PRN (17:01)
[2024-04-02] MEDS ORDERED: SODIUM CHLORIDE 250 ML IV PRN (17:52)
[2024-04-03 09:18] LABS: HEMATOCRIT 31.8 % (35.4-49); HEMOGLOBIN 10.4 GM/dL (11.7-16.9); MCH 31.3 pg (25.7-33.7); MCHC 32.8 g/dl (32.0-35.9); MEAN CELL VOLUME 95.5 fl (80-96); MEAN PLT VOLUME 8.7 fl (7.5-11.1); PLATELET COUNT 188 10^3/uL (134-434); RBC 3.33 M/mm3 (4.00-5.60); RDW 14.8 % (11.9-15.9); WHITE BLOOD COUNT 6.1 K/mm3 (4.0-10.0)
[2024-04-03] MEDS: ISOSORBIDE MONONITRATE 30 MG TAB.SR.24H (FP) PO SCH (09:22)
[2024-04-03] MEDS: LOSARTAN POTASSIUM 50 MG TABLET PO SCH (09:22)
[2024-04-03 09:43] LABS: CHLORIDE 103 mmol/L (98-107); POTASSIUM 3.8 mmol/L (3.5-5.1); SODIUM 140 mmol/L (136-145)
[2024-04-03 09:55] LABS: ANION GAP 7 mmol/L (4-13); BLOOD UREA NITROGEN 43.9 mg/dL (7-18); CALCIUM 9.3 mg/dL (8.5-10.1); CO2 30 mmol/L (21-32); GLUCOSE,RANDOM 92 mg/dL (74-106)
[2024-04-03 09:59] LABS: PHOSPHOROUS 3.4 mg/dL (2.5-4.9)
[2024-04-03] MEDS ORDERED: GENTAMICIN SO4 80 MG/2 ML VIAL ONE (10:00)
[2024-04-03 10:01] LABS: CREATININE 9.7 mg/dL (0.55-1.3)
[2024-04-03] MEDS ORDERED: BUPIVACAINE HCL/PF 0.5% (5MG/ML) 10 ML VIAL ONE ×2 (10:01→10:04)
[2024-04-03] MEDS ORDERED: BACITRACIN ZINC 15 GM TUBE TOPICAL OINTMENT ONE (10:01)
[2024-04-03] MEDS ORDERED: LIDOCAINE HCL 2% (20ML MULTI-DOSE VIAL) ONE (10:01)
[2024-04-03] MEDS ORDERED: PROPOFOL 20 ML ONE (10:25)
[2024-04-03] MEDS ORDERED: MIDAZOLAM HCL 2 MG/2 ML SINGLE DOSE VIAL ONE (10:25)
[2024-04-03] MEDS: BUPIVACAINE HCL/PF 0.5% (5MG/ML) 10 ML VIAL IJ ONE (10:37)
[2024-04-03] MEDS: LIDOCAINE HCL/PF 2% SDV 5ML VIAL INF ONE (10:37)
[2024-04-03] MEDS ORDERED: ONDANSETRON 4 MG/2 ML VIAL IVPUSH PRN ×2 (11:29→11:38)
[2024-04-03] MEDS ORDERED: oxyCODONE HCL 5 MG TABLET PO PRN ×2 (11:29→11:38)
[2024-04-03] MEDS ORDERED: SODIUM CHLORIDE 1,000 ML IV SCH (11:30)
[2024-04-03] MEDS ORDERED: MIDODRINE HCL 5 MG TABLET PO PRN (11:38)
[2024-04-03] MEDS ORDERED: SODIUM CHLORIDE 250 ML IV PRN (11:38)
[2024-04-03] MEDS: SODIUM CHLORIDE 1,000 ML IV SCH (12:35)
[2024-04-03] MEDS: SEVELAMER CARBONATE 800 MG TAB (FP) PO SCH (12:37)
[2024-04-03 13:24] VITALS: RESP 18
[2024-04-03 17:25] VITALS: BP 128/66; PULSE 66; TEMP 97.9
[2024-04-03] MEDS ORDERED: EPOETIN ALFA-EPBX 10,000 UNIT/ML VIAL SQ ONE ×2 (17:52)
[2024-04-04] MEDS ORDERED: LOSARTAN POTASSIUM 50 MG TABLET PO SCH (10:00)
[2024-04-04] MEDS ORDERED: PANTOPRAZOLE 40 MG TABLET PO SCH (10:00)
[2024-04-04] MEDS ORDERED: ISOSORBIDE MONONITRATE 30 MG TAB.SR.24H (FP) PO SCH (10:00)
== END 2024-04-03 18:22 | disposition home or self-care (01) ==
LOC: JER 14:11 → JERBED 16:05 → J6S 04-02 00:43
PROVIDERS: ADMIT Internal Medicine; ATTEND Internal Medicine
PROC: 0HBMXZZ Excision of Right Foot Skin, External Approach (ICD-10-PCS; 2024-04-03)
PROC: 0Y9 Anatomical Regions, Lower Extremities, Drainage (ICD-10-PCS; principal; 2024-04-03 17:00)
DX: M86.9 Osteomyelitis, unspecified (principal); I13.2 Hypertensive heart and chronic kidney disease with heart failure and with stage 5 chronic kidney disease, or end stage renal disease; E11.22 Type 2 diabetes mellitus with diabetic chronic kidney disease; S91.301A Unspecified open wound, right foot, initial encounter; S91.302A Unspecified open wound, left foot, initial encounter; K31.84 Gastroparesis; E11.621 Type 2 diabetes mellitus with foot ulcer; X58.XXXA Exposure to other specified factors, initial encounter; N18.6 End stage renal disease; Z99.2 Dependence on renal dialysis; Z86.711 Personal history of pulmonary embolism
CPT/HCPCS: 36415; 73630-TC-RT-FY; 80048; 80053; 83735; 84100; 85025; 85027; 85610; 85730; 86803; 86850; 86900; 86901; 87070; 87075; 87186; 87205; 87389; 88307-TC; 88311-TC; 93005; 93010; 94760; 99285-25; G0378

== ENCOUNTER 2024-04-11 16:17 | Inpatient (IN) | payer OTHER ==
[2024-04-11 17:53] LABS: BASO % 0.5 % (0-2.0); EOS % 1.7 % (0-4.5); HEMATOCRIT 29.1 % (35.4-49); HEMOGLOBIN 9.3 GM/dL (11.7-16.9); LYMPH % 30.3 % (8-40); MCHC 32.2 g/dl (32.0-35.9); MEAN CELL VOLUME 96.4 fl (80-96); MEAN PLT VOLUME 7.9 fl (7.5-11.1); MONO % 7.9 % (3.8-10.2); NEUT % 59.6 % (42.8-82.8); PLATELET COUNT 185 10^3/uL (134-434); RBC 3.02 M/mm3 (4.00-5.60); RDW 14.6 % (11.9-15.9); WHITE BLOOD COUNT 6.3 K/mm3 (4.0-10.0)
[2024-04-11 18:15] LABS: CHLORIDE 101 mmol/L (98-107); POTASSIUM 3.5 mmol/L (3.5-5.1); SODIUM 140 mmol/L (136-145)
[2024-04-11 18:17] LABS: ALBUMIN 3.5 g/dl (3.4-5.0); ANION GAP 6 mmol/L (4-13); BLOOD UREA NITROGEN 22.5 mg/dL (7-18); CALCIUM 9.2 mg/dL (8.5-10.1); CO2 33 mmol/L (21-32)
[2024-04-11 18:18] LABS: GLUCOSE,RANDOM 89 mg/dL (74-106)
[2024-04-11 18:20] LABS: SGPT/ALT 10 U/L (13-61)
[2024-04-11 18:21] LABS: SGOT/AST 18 U/L (15-37)
[2024-04-11 18:22] LABS: BILIRUBIN,TOTAL 0.4 mg/dL (0.2-1); TOT PROT 6.5 g/dl (6.4-8.2)
[2024-04-11 18:23] LABS: ALK PHOS 138 U/L (45-117)
[2024-04-11 18:54] LABS: CREATININE 7.7 mg/dL (0.55-1.3)
[2024-04-11 19:23] LABS: ERYTHROCYTE SEDIMENTATION RATE 34 mm/hr (0-20)
[2024-04-12 00:23] VITALS: BMI 24.2
[2024-04-12 03:52] LABS: INR 1.49 (0.83-1.09); PROTHROMBIN TIME (PATIENT) 16.9 SEC (9.7-13.0)
[2024-04-12 03:56] LABS: ACTIVATED PTT 23.3 SECONDS (25.2-36.5)
[2024-04-12] MEDS: HEPARIN NA (PORCINE) 5,000 UNITS/ML 1ML VIAL SQ SCH (05:49)
[2024-04-12] MEDS: oxyCODONE HCL 5 MG TABLET PO SCH (05:50)
[2024-04-12] MEDS: ACETAMINOPHEN 325 MG TABLET (FP) PO SCH (05:51)
[2024-04-12] MEDS: INSULIN ASPART SLIDING SCALE (NOVOLOG) 1 VIAL SQ SCH (06:11)
[2024-04-12] MEDS: LOSARTAN POTASSIUM 50 MG TABLET PO SCH (11:22)
[2024-04-12] MEDS: ISOSORBIDE MONONITRATE 30 MG TAB.SR.24H (FP) PO SCH (11:22)
[2024-04-12] MEDS: SEVELAMER CARBONATE 800 MG TAB (FP) PO SCH (11:22)
[2024-04-12] MEDS: PANTOPRAZOLE 40 MG TABLET PO SCH (11:22)
[2024-04-12] MEDS: PIPERACILLIN/TAZOB 4.5 GM 4.5 GM/100 ML BAG IVPB SCH (11:23)
[2024-04-12] MEDS: COLLAGENASE CLOSTRIDIUM HIST. 30 GRAMS TUBE TP SCH (14:10)
[2024-04-12 15:14] LABS: HEMATOCRIT 28.5 % (35.4-49); HEMOGLOBIN 9.4 GM/dL (11.7-16.9); MCH 31.5 pg (25.7-33.7); MCHC 33.1 g/dl (32.0-35.9); MEAN CELL VOLUME 95.2 fl (80-96); MEAN PLT VOLUME 8.4 fl (7.5-11.1); PLATELET COUNT 166 10^3/uL (134-434); RDW 14.5 % (11.9-15.9); WHITE BLOOD COUNT 5.2 K/mm3 (4.0-10.0)
[2024-04-12 15:47] LABS: CHLORIDE 103 mmol/L (98-107); POTASSIUM 3.8 mmol/L (3.5-5.1); SODIUM 140 mmol/L (136-145)
[2024-04-12 15:51] LABS: CALCIUM 9.1 mg/dL (8.5-10.1); GLUCOSE,RANDOM 102 mg/dL (74-106)
[2024-04-12 15:52] LABS: ALBUMIN 3.3 g/dl (3.4-5.0); ANION GAP 6 mmol/L (4-13); BLOOD UREA NITROGEN 30.5 mg/dL (7-18); CO2 31 mmol/L (21-32); MAGNESIUM 2.8 mg/dL (1.8-2.4)
[2024-04-12 15:54] LABS: PHOSPHOROUS 3.8 mg/dL (2.5-4.9); SGOT/AST 14 U/L (15-37); SGPT/ALT 11 U/L (13-61)
[2024-04-12 15:56] LABS: BILIRUBIN,TOTAL 0.3 mg/dL (0.2-1); TOT PROT 6.4 g/dl (6.4-8.2)
[2024-04-12 15:57] LABS: ALK PHOS 146 U/L (45-117)
[2024-04-12 16:07] LABS: CREATININE 9.7 mg/dL (0.55-1.3)
[2024-04-12] MEDS ORDERED: SODIUM CHLORIDE 250 ML IV PRN (17:52)
[2024-04-13] MEDS ORDERED: INSULIN (LEVEMIR) 100 UNITS/ML UNITS SQ ONE (06:22)
[2024-04-13] MEDS: HEPARIN NA (PORCINE) 5,000 UNITS/ML 1ML VIAL IVPUSH ONE (17:22)
[2024-04-13] MEDS: EPOETIN ALFA-EPBX 10,000 UNIT/ML VIAL SQ ONE (17:23)
[2024-04-14 09:09] LABS: HEMOGLOBIN 9.4 GM/dL (11.7-16.9); MCH 30.9 pg (25.7-33.7); MCHC 32.4 g/dl (32.0-35.9); MEAN CELL VOLUME 95.3 fl (80-96); PLATELET COUNT 176 10^3/uL (134-434); RBC 3.04 M/mm3 (4.00-5.60); RDW 15.1 % (11.9-15.9); WHITE BLOOD COUNT 5.6 K/mm3 (4.0-10.0)
[2024-04-14 09:27] LABS: CHLORIDE 104 mmol/L (98-107); POTASSIUM 3.9 mmol/L (3.5-5.1); SODIUM 140 mmol/L (136-145)
[2024-04-14 09:33] LABS: ALBUMIN 3.2 g/dl (3.4-5.0); BLOOD UREA NITROGEN 26.2 mg/dL (7-18); CALCIUM 8.6 mg/dL (8.5-10.1)
[2024-04-14 09:34] LABS: ANION GAP 5 mmol/L (4-13); CO2 31 mmol/L (21-32); GLUCOSE,RANDOM 90 mg/dL (74-106)
[2024-04-14 09:35] LABS: SGOT/AST 13 U/L (15-37); SGPT/ALT 9 U/L (13-61)
[2024-04-14 09:37] LABS: BILIRUBIN,TOTAL 0.3 mg/dL (0.2-1); TOT PROT 6.2 g/dl (6.4-8.2)
[2024-04-14 09:38] LABS: ALK PHOS 130 U/L (45-117)
[2024-04-14 09:41] LABS: CREATININE 8.4 mg/dL (0.55-1.3)
[2024-04-14 10:14] LABS: ERYTHROCYTE SEDIMENTATION RATE 39 mm/hr (0-20)
[2024-04-14] MEDS ORDERED: MAG HYDROX/AL HYDROX/SIMETH 30 ML UNIT-DOSE CUP PO PRN (20:12)
[2024-04-15] MEDS: MIDODRINE HCL 5 MG TABLET PO PRN (15:16)
[2024-04-16 12:28] LABS: BASO % 0.6 % (0-2.0); EOS % 2.5 % (0-4.5); HEMATOCRIT 27.3 % (35.4-49); HEMOGLOBIN 8.8 GM/dL (11.7-16.9); LYMPH % 27.9 % (8-40); MCH 31.1 pg (25.7-33.7); MCHC 32.4 g/dl (32.0-35.9); MEAN CELL VOLUME 95.8 fl (80-96); MEAN PLT VOLUME 8.2 fl (7.5-11.1); MONO % 7.8 % (3.8-10.2); NEUT % 61.2 % (42.8-82.8); PLATELET COUNT 183 10^3/uL (134-434); RBC 2.85 M/mm3 (4.00-5.60); RDW 14.6 % (11.9-15.9); WHITE BLOOD COUNT 5.7 K/mm3 (4.0-10.0)
[2024-04-16 12:50] LABS: CHLORIDE 101 mmol/L (98-107); POTASSIUM 4.4 mmol/L (3.5-5.1); SODIUM 138 mmol/L (136-145)
[2024-04-16 12:52] LABS: CALCIUM 8.5 mg/dL (8.5-10.1)
[2024-04-16 12:53] LABS: ANION GAP 9 mmol/L (4-13); CO2 27 mmol/L (21-32); GLUCOSE,RANDOM 76 mg/dL (74-106)
[2024-04-16 12:56] LABS: SGOT/AST 14 U/L (15-37); SGPT/ALT 10 U/L (13-61)
[2024-04-16 12:58] LABS: BILIRUBIN,TOTAL 0.3 mg/dL (0.2-1); TOT PROT 6.1 g/dl (6.4-8.2)
[2024-04-16 12:59] LABS: ALK PHOS 118 U/L (45-117)
[2024-04-16] MEDS ORDERED: ONDANSETRON 4 MG/2 ML VIAL IVPUSH PRN ×2 (13:20→15:13)
[2024-04-16] MEDS ORDERED: HEPARIN NA (PORCINE) 5,000 UNITS/ML 1ML VIAL ONE (13:24)
[2024-04-16] MEDS ORDERED: LIDOCAINE HCL 1%, 10 MG/ML (20ML VIAL) ONE (13:24)
[2024-04-16] MEDS ORDERED: LACTATED RINGERS SOLUTION 1,000 ML IV SCH ×2 (13:30→15:13)
[2024-04-16] MEDS ORDERED: MIDAZOLAM HCL 2 MG/2 ML SINGLE DOSE VIAL ONE (13:57)
[2024-04-16] MEDS ORDERED: PROPOFOL 20 ML ONE (14:05)
[2024-04-16] MEDS: LIDOCAINE HCL 1%, 10 MG/ML (20ML VIAL) INF ONE (14:23)
[2024-04-16] MEDS ORDERED: MIDODRINE HCL 5 MG TABLET PO PRN (15:13)
[2024-04-16] MEDS ORDERED: MAG HYDROX/AL HYDROX/SIMETH 30 ML UNIT-DOSE CUP PO PRN (15:13)
[2024-04-16 16:30] VITALS: RESP 18
[2024-04-16] MEDS: SEVELAMER CARBONATE 800 MG TAB (FP) PO SCH (17:09)
[2024-04-16] MEDS: oxyCODONE HCL 5 MG TABLET PO SCH (17:09)
[2024-04-16] MEDS: ACETAMINOPHEN 325 MG TABLET (FP) PO SCH (17:10)
[2024-04-16] MEDS ORDERED: SODIUM CHLORIDE 250 ML IV PRN (17:11)
[2024-04-16] MEDS: INSULIN ASPART SLIDING SCALE (NOVOLOG) 1 VIAL SQ SCH (17:16)
[2024-04-16] MEDS: HEPARIN NA (PORCINE) 5,000 UNITS/ML 1ML VIAL SQ SCH (21:37)
[2024-04-16] MEDS: PIPERACILLIN/TAZOB 4.5 GM 4.5 GM/100 ML BAG IVPB SCH (21:41)
[2024-04-17 08:55] LABS: BASO % 0.5 % (0-2.0); EOS % 3.2 % (0-4.5); HEMATOCRIT 28.7 % (35.4-49); HEMOGLOBIN 9.6 GM/dL (11.7-16.9); LYMPH % 29.5 % (8-40); MCH 31.8 pg (25.7-33.7); MCHC 33.4 g/dl (32.0-35.9); MEAN CELL VOLUME 95.1 fl (80-96); MEAN PLT VOLUME 7.9 fl (7.5-11.1); MONO % 9.4 % (3.8-10.2); NEUT % 57.4 % (42.8-82.8); PLATELET COUNT 183 10^3/uL (134-434); RBC 3.02 M/mm3 (4.00-5.60); RDW 14.6 % (11.9-15.9); WHITE BLOOD COUNT 5.1 K/mm3 (4.0-10.0)
[2024-04-17 09:08] LABS: CHLORIDE 102 mmol/L (98-107); POTASSIUM 4.4 mmol/L (3.5-5.1); SODIUM 138 mmol/L (136-145)
[2024-04-17 09:15] LABS: CALCIUM 8.3 mg/dL (8.5-10.1)
[2024-04-17 09:17] LABS: ALBUMIN 3.1 g/dl (3.4-5.0); ANION GAP 8 mmol/L (4-13); BLOOD UREA NITROGEN 51.4 mg/dL (7-18); CO2 29 mmol/L (21-32); GLUCOSE,RANDOM 76 mg/dL (74-106); MAGNESIUM 2.7 mg/dL (1.8-2.4)
[2024-04-17 09:18] LABS: BILIRUBIN,TOTAL 0.3 mg/dL (0.2-1); SGOT/AST 13 U/L (15-37); SGPT/ALT 8 U/L (13-61)
[2024-04-17 09:19] LABS: ALK PHOS 120 U/L (45-117); TOT PROT 6.2 g/dl (6.4-8.2)
[2024-04-17 09:25] LABS: CREATININE 14.5 mg/dL (0.55-1.3)
[2024-04-17] MEDS: HEPARIN NA (PORCINE) 5,000 UNITS/ML 1ML VIAL IVPUSH ONE (09:30)
[2024-04-17] MEDS: LOSARTAN POTASSIUM 50 MG TABLET PO SCH (10:54)
[2024-04-17] MEDS: ISOSORBIDE MONONITRATE 30 MG TAB.SR.24H (FP) PO SCH (10:54)
[2024-04-17] MEDS: PANTOPRAZOLE 40 MG TABLET PO SCH (10:58)
[2024-04-17] MEDS: EPOETIN ALFA-EPBX 10,000 UNIT/ML VIAL IVPUSH ONE (11:09)
[2024-04-17 14:06] VITALS: BP 147/78; PULSE 67; TEMP 97.5
[2024-04-17] MEDS ORDERED: LIDOCAINE HCL 1%, 10 MG/ML (20ML VIAL) ONE (14:59)
[2024-04-17] MEDS: LIDOCAINE HCL 1%, 10 MG/ML (20ML VIAL) SQ ONE (17:18)
== END 2024-04-17 17:16 | DRG 982 ==
LOC: JER 16:17 → JERBED 18:10 → J8W 19:59 → OBSVTOIN 04-13 19:00
PROVIDERS: ADMIT Internal Medicine; ATTEND Nurse Practitioner Family
PROC: 0JH63XZ Insertion of Tunneled Vascular Access Device into Chest Subcutaneous Tissue and Fascia, Percutaneous Approach (ICD-10-PCS; principal; 2024-04-12)
PROC: 027V3ZZ Dilation of Superior Vena Cava, Percutaneous Approach (ICD-10-PCS; 2024-04-16)
PROC: B51NYZZ Fluoroscopy of Left Upper Extremity Veins using Other Contrast (ICD-10-PCS; 2024-04-16)
PROC: 5A1D70Z Performance of Urinary Filtration, Intermittent, Less than 6 Hours Per Day (ICD-10-PCS; 2024-04-17)
DX: E11.69 Type 2 diabetes mellitus with other specified complication (principal); I13.2 Hypertensive heart and chronic kidney disease with heart failure and with stage 5 chronic kidney disease, or end stage renal disease; M86.9 Osteomyelitis, unspecified; L97.419 Non-pressure chronic ulcer of right heel and midfoot with unspecified severity; I87.1 Compression of vein; T82.858A Stenosis of other vascular prosthetic devices, implants and grafts, initial encounter; I50.32 Chronic diastolic (congestive) heart failure; N18.6 End stage renal disease; N40.0 Benign prostatic hyperplasia without lower urinary tract symptoms; E78.5 Hyperlipidemia, unspecified; E11.43 Type 2 diabetes mellitus with diabetic autonomic (poly)neuropathy; E11.621 Type 2 diabetes mellitus with foot ulcer; L97.509 Non-pressure chronic ulcer of other part of unspecified foot with unspecified severity; A49.02 Methicillin resistant Staphylococcus aureus infection, unspecified site; A49.8 Other bacterial infections of unspecified site; I73.9 Peripheral vascular disease, unspecified; E11.51 Type 2 diabetes mellitus with diabetic peripheral angiopathy without gangrene; R60.0 Localized edema; Y83.9 Surgical procedure, unspecified as the cause of abnormal reaction of the patient, or of later complication, without mention of misadventure at the time of the procedure; Z99.2 Dependence on renal dialysis
CPT/HCPCS: 15275; 36415; 36558; 71045-TC-FY; 76000-TC-FY; 80053; 82962; 83735; 84100; 85025; 85027; 85610; 85651; 85730; 86140; 86704; 86706; 87340; 87517; 87522; 87635; 93005; 93010; 93971; 94760; 97116-GP; 97161-GP; 99285-25; G0378; J1644; Q4196; Q5106

== ENCOUNTER → 2024-06-20 | Day surgery (SDC) | payer OTHER | END | disposition home or self-care (01) | LOC: JRADIR 15:03 | PROVIDERS: ATTEND Internal Medicine Infectious Disease | PROC: 05PY03Z Removal of Infusion Device from Upper Vein, Open Approach (ICD-10-PCS; principal; 2024-06-20) | DX: Z45.2 Encounter for adjustment and management of vascular access device (principal) | CPT/HCPCS: 36589 ==

== ENCOUNTER 2024-07-22 09:15 | Inpatient (IN) | payer OTHER ==
[2024-07-22 10:29] LABS: ABSOLUTE IMMATURE GRANULOCYTES 0.07 x10^3/uL (0.0-0.031); BASOPHILS # 0.02 x10^3/uL (0.01-0.08); HEMATOCRIT 40.6 % (40.1-51.0); HEMOGLOBIN 12.9 g/dL (13.7-17.5); MCHC 31.8 g/dl (32.3-36.5); MEAN CELL VOLUME 96.7 fl (79.0-92.2); MEAN PLT VOLUME 10.3 fl (9.4-12.4); MONOCYTE # 1.04 x10^3/uL (0.30-0.82); MONOCYTE % 5.7 % (5.3-12.2); PLATELET COUNT 225 x10^3/uL (163-337); RDW 15.1 % (12.2-16.4)
[2024-07-22] MEDS ORDERED: ACETAMINOPHEN INJECTION 100 ML ONE ×2 (10:32→21:20)
[2024-07-22] MEDS ORDERED: METOCLOPRAMIDE HCL INJECTION 10 MG/2 ML VIAL ONE (10:32)
[2024-07-22] MEDS ORDERED: PANTOPRAZOLE SODIUM 40 MG VIAL ONE ×2 (10:33→21:20)
[2024-07-22] MEDS: METOCLOPRAMIDE HCL INJECTION 10 MG/2 ML VIAL IVPUSH ONE (10:55)
[2024-07-22] MEDS: PANTOPRAZOLE SODIUM 40 MG VIAL IVPUSH ONE (10:55)
[2024-07-22] MEDS: ACETAMINOPHEN 1000 MG/100 ML BAG IVPB ONE (10:55)
[2024-07-22] MEDS: ONDANSETRON 4 MG/2 ML VIAL IVPUSH ONE (10:55)
[2024-07-22 10:58] LABS: CHLORIDE 94 mmol/L (98-107); POTASSIUM 3.8 mmol/L (3.5-5.1); SODIUM 140 mmol/L (136-145)
[2024-07-22 11:00] LABS: ALBUMIN 3.9 g/dl (3.4-5.0); ANION GAP 10 mmol/L (4-13); BLOOD UREA NITROGEN 48.7 mg/dL (7-18); CALCIUM 9.1 mg/dL (8.5-10.1); CO2 36 mmol/L (21-32); GLUCOSE,RANDOM 138 mg/dL (74-106)
[2024-07-22 11:03] LABS: SGOT/AST 33 U/L (15-37); SGPT/ALT 18 U/L (13-61)
[2024-07-22 11:05] LABS: ALK PHOS 143 U/L (45-117); BILIRUBIN,TOTAL 0.4 mg/dL (0.2-1); TOT PROT 7.7 g/dl (6.4-8.2)
[2024-07-22 11:20] LABS: CREATININE 12.7 mg/dL (0.55-1.3)
[2024-07-22] MEDS ORDERED: VANCOMYCIN/WATER 1250 MG 1,250 MG/250 ML BAG IVPB ONE (14:41)
[2024-07-22] MEDS ORDERED: PIPERACILLIN/TAZOB 4.5 GM 4.5 GM/100 ML BAG IVPB ONE (14:41)
[2024-07-22] MEDS: PIPERACILLIN/TAZOB 4.5 GM 4.5 GM in DEXTROSE 5%-WATER 100 ML IVPB ONE (14:48)
[2024-07-22] MEDS: VANCOMYCIN/WATER 1250 MG 1,250 MG/250 ML BAG IVPB ONE (15:16)
[2024-07-22] MEDS ORDERED: SODIUM CHLORIDE 250 ML IV PRN (15:57)
[2024-07-22] MEDS ORDERED: traMADol HCL 50 MG TABLET PO PRN (16:51)
[2024-07-22] MEDS ORDERED: HYDROmorphone HCL CARPU-JECT 2 MG/1 ML DISP.SYRIN ONE (17:09)
[2024-07-22] MEDS: HYDROmorphone HCl 2 MG/ML VIAL IVPUSH ONE (17:43)
[2024-07-22] MEDS ORDERED: TRIMETHOBENZAMIDE HCL 200MG/2ML INJ IM PRN (18:25)
[2024-07-22 18:27] LABS: EPI CELLS >36 /uL (0-25.1); HYALINE CASTS 2 /uL (0-3.1); PH,URINE 8.5 (5.0-8.0); URINE APPEARANCE CLEAR; URINE BACTERIA 22 /uL (0-1359); URINE BILIRUBIN NEGATIVE (NEGATIVE); URINE COLOR YELLOW; URINE GLUCOSE (UA) TRACE (NEGATIVE); URINE KETONE NEGATIVE (NEGATIVE); URINE LEUK ESTERASE NEGATIVE (NEGATIVE); URINE NITRITE NEGATIVE (NEGATIVE); URINE PROTEIN 4+ (NEGATIVE); URINE RBC 68 /uL (0-23.9); URINE UROBILINOGEN 0.2 mg/dL (0.2-1.0)
[2024-07-22] MEDS ORDERED: SEVELAMER CARBONATE 800 MG TAB (FP) ONE (21:05)
[2024-07-22] MEDS ORDERED: ISOSORBIDE MONONITRATE 30 MG TAB.SR.24H (FP) PO ONE (21:05)
[2024-07-22] MEDS: ISOSORBIDE MONONITRATE 30 MG TAB.SR.24H (FP) PO ONE (21:13)
[2024-07-22] MEDS: SEVELAMER CARBONATE 800 MG TAB (FP) PO SCH (21:13)
[2024-07-22] MEDS: ACETAMINOPHEN 1000 MG/100 ML BAG IVPB PRN (21:27)
[2024-07-22] MEDS: PANTOPRAZOLE SODIUM 40 MG VIAL IVPUSH SCH (21:27)
[2024-07-22] MEDS ORDERED: MIDODRINE HCL 5 MG TABLET PO PRN (22:00)
[2024-07-23 01:28] VITALS: BMI 24.3
[2024-07-23] MEDS: PIPERACILLIN/TAZOB 2.25 GM 2.25 GM/50 ML BAG IVPB SCH (06:20)
[2024-07-23 09:01] LABS: HEMATOCRIT 39.1 % (40.1-51.0); HEMOGLOBIN 12.9 g/dL (13.7-17.5); MEAN CELL VOLUME 94.9 fl (79.0-92.2); MEAN PLT VOLUME 10.2 fl (9.4-12.4); PLATELET COUNT 212 x10^3/uL (163-337); RDW 15.1 % (12.2-16.4)
[2024-07-23 09:20] LABS: CHLORIDE 93 mmol/L (98-107); POTASSIUM 3.7 mmol/L (3.5-5.1); SODIUM 138 mmol/L (136-145)
[2024-07-23 09:22] LABS: ANION GAP 14 mmol/L (4-13); BLOOD UREA NITROGEN 59.7 mg/dL (7-18); CALCIUM 8.7 mg/dL (8.5-10.1); CO2 31 mmol/L (21-32); GLUCOSE,RANDOM 110 mg/dL (74-106); MAGNESIUM 2.2 mg/dL (1.8-2.4)
[2024-07-23 09:24] LABS: ALBUMIN 3.5 g/dl (3.4-5.0)
[2024-07-23 09:25] LABS: SGOT/AST 24 U/L (15-37); SGPT/ALT 16 U/L (13-61)
[2024-07-23 09:26] LABS: PHOSPHOROUS 6.3 mg/dL (2.5-4.9)
[2024-07-23 09:27] LABS: BILIRUBIN,TOTAL 0.7 mg/dL (0.2-1); TOT PROT 6.8 g/dl (6.4-8.2)
[2024-07-23 09:29] LABS: ALK PHOS 128 U/L (45-117)
[2024-07-23 09:40] LABS: CREATININE 14.5 mg/dL (0.55-1.3)
[2024-07-23] MEDS ORDERED: PANTOPRAZOLE SODIUM 40 MG VIAL IVPUSH SCH (10:00)
[2024-07-23] MEDS ORDERED: PATIENT'S OWN MEDICATION (NON-FORMULARY) (Becaplermin [Regranex] 15 GM Gel..Gram.) TP SCH (10:00)
[2024-07-23] MEDS ORDERED: PANTOPRAZOLE 40 MG TABLET PO SCH (10:00)
[2024-07-23] MEDS: LOSARTAN POTASSIUM 50 MG TABLET PO SCH (10:04)
[2024-07-23] MEDS: ISOSORBIDE MONONITRATE 30 MG TAB.SR.24H (FP) PO SCH (12:28)
[2024-07-23 14:56] LABS: HEPATITIS B SURF AG NON-MATERN NON-REACTIVE (NONREACTIVE)
[2024-07-23 15:24] LABS: HCV DIAGNOSTIC IN-HOUSE W/RFLX NON-REACTIVE (NONREACTIVE)
[2024-07-23] MEDS: PIPERACILLIN/TAZOB 2.25 GM 2.25 GM in DEXTROSE 5%-WATER - 50 ML IVPB SCH (16:21)
[2024-07-23] MEDS: ISOSORBIDE MONONITRATE 60 MG TAB.SR.24H (FP) PO SCH (16:22)
[2024-07-23 16:49] LABS: GAMMA GLUTAMYL TRANSPEPTIDASE 18 U/L (5-85)
[2024-07-23] MEDS: hydrALAZINE HCL 10 MG TABLET PO ONE (18:26)
[2024-07-23] MEDS ORDERED: hydrALAZINE HCL 20 MG/ML VIAL IVPUSH PRN (19:18)
[2024-07-23] MEDS: METOPROLOL TARTRATE 25 MG TABLET (FP) PO SCH (21:33)
[2024-07-24 08:32] LABS: CHLORIDE 94 mmol/L (98-107); POTASSIUM 3.9 mmol/L (3.5-5.1); SODIUM 138 mmol/L (136-145)
[2024-07-24 08:36] LABS: ALBUMIN 3.4 g/dl (3.4-5.0); ANION GAP 12 mmol/L (4-13); BLOOD UREA NITROGEN 49.6 mg/dL (7-18); CALCIUM 8.5 mg/dL (8.5-10.1); CO2 32 mmol/L (21-32); GLUCOSE,RANDOM 66 mg/dL (74-106)
[2024-07-24 08:39] LABS: SGOT/AST 20 U/L (15-37); SGPT/ALT 16 U/L (13-61)
[2024-07-24 08:40] LABS: PHOSPHOROUS 6.9 mg/dL (2.5-4.9)
[2024-07-24 08:41] LABS: BILIRUBIN,TOTAL 0.6 mg/dL (0.2-1); CREATININE 11.2 mg/dL (0.55-1.3); TOT PROT 6.8 g/dl (6.4-8.2)
[2024-07-24 08:43] LABS: ALK PHOS 133 U/L (45-117)
[2024-07-24] MEDS ORDERED: SODIUM CHLORIDE 250 ML IV PRN (11:42)
[2024-07-24] MEDS ORDERED: DEXTROSE 50%-WATER 25 GM/50 ML DISP.SYRIN IVPUSH PRN (16:50)
[2024-07-24 18:22] LABS: ABSOLUTE IMMATURE GRANULOCYTES 0.04 x10^3/uL (0.0-0.031); BASOPHILS # 0.02 x10^3/uL (0.01-0.08); EOSINOPHIL % 0.3 % (0.8-7.0); EOSINOPHILS # 0.03 x10^3/uL (0.04-0.54); HEMATOCRIT 42.9 % (40.1-51.0); HEMOGLOBIN 13.3 g/dL (13.7-17.5); MEAN CELL VOLUME 99.1 fl (79.0-92.2); MEAN PLT VOLUME 10.7 fl (9.4-12.4); MONOCYTE # 0.87 x10^3/uL (0.30-0.82); MONOCYTE % 9.1 % (5.3-12.2); PLATELET COUNT 212 x10^3/uL (163-337)
[2024-07-25] MEDS ORDERED: TRIMETHOBENZAMIDE HCL 200MG/2ML INJ IM PRN (07:42)
[2024-07-25] MEDS ORDERED: ACETAMINOPHEN 1000 MG/100 ML BAG IVPB PRN (07:42)
[2024-07-25 07:50] LABS: HEMATOCRIT 39.2 % (40.1-51.0); HEMOGLOBIN 12.5 g/dL (13.7-17.5); MCHC 31.9 g/dl (32.3-36.5); MEAN CELL VOLUME 96.1 fl (79.0-92.2); MEAN PLT VOLUME 10.3 fl (9.4-12.4); PLATELET COUNT 204 x10^3/uL (163-337); RDW 14.7 % (12.2-16.4)
[2024-07-25 09:27] LABS: CHLORIDE 92 mmol/L (98-107); POTASSIUM 3.7 mmol/L (3.5-5.1); SODIUM 133 mmol/L (136-145)
[2024-07-25 09:32] LABS: ANION GAP 14 mmol/L (4-13); BLOOD UREA NITROGEN 70.8 mg/dL (7-18); CALCIUM 8.2 mg/dL (8.5-10.1); CO2 28 mmol/L (21-32)
[2024-07-25 09:33] LABS: GLUCOSE,RANDOM 162 mg/dL (74-106)
[2024-07-25 09:39] LABS: CREATININE 13.8 mg/dL (0.55-1.3)
[2024-07-25] MEDS ORDERED: PATIENT'S OWN MEDICATION (NON-FORMULARY) (Becaplermin [Regranex] 15 GM) TP SCH (10:00)
[2024-07-25] MEDS: SEVELAMER CARBONATE 800 MG TAB (FP) PO SCH (10:42)
[2024-07-25] MEDS: PANTOPRAZOLE SODIUM 40 MG VIAL IVPUSH SCH (10:42)
[2024-07-25] MEDS: ISOSORBIDE MONONITRATE 60 MG TAB.SR.24H (FP) PO SCH (10:42)
[2024-07-25] MEDS: LOSARTAN POTASSIUM 50 MG TABLET PO SCH (10:42)
[2024-07-25] MEDS: METOPROLOL TARTRATE 25 MG TABLET (FP) PO SCH (10:42)
[2024-07-25] MEDS ORDERED: SODIUM CHLORIDE 250 ML IV PRN (14:34)
[2024-07-25] MEDS: PANTOPRAZOLE 40 MG TABLET PO SCH (21:04)
[2024-07-26 14:56] VITALS: BP 137/86; PULSE 75; RESP 17; TEMP 98.2
== END 2024-07-26 17:03 | disposition home or self-care (01) | DRG 73 ==
LOC: JER 09:15 → JERBED 14:36 → OBSVTOIN 17:03 → J5S 23:23 → J4S 07-24 00:23
PROVIDERS: ADMIT Internal Medicine; ATTEND Physician Assistant
PROC: 5A1D70Z Performance of Urinary Filtration, Intermittent, Less than 6 Hours Per Day (ICD-10-PCS; principal; 2024-07-25)
DX: E11.43 Type 2 diabetes mellitus with diabetic autonomic (poly)neuropathy (principal); N18.6 End stage renal disease; I50.32 Chronic diastolic (congestive) heart failure; I13.2 Hypertensive heart and chronic kidney disease with heart failure and with stage 5 chronic kidney disease, or end stage renal disease; Z99.2 Dependence on renal dialysis; K31.84 Gastroparesis; D64.9 Anemia, unspecified; E11.22 Type 2 diabetes mellitus with diabetic chronic kidney disease; E11.649 Type 2 diabetes mellitus with hypoglycemia without coma; I16.0 Hypertensive urgency; D72.829 Elevated white blood cell count, unspecified
CPT/HCPCS: 36415; 70450-TC; 71045-TC-FY; 74176-TC; 80048; 80053; 81003; 82962; 82977; 83605; 83690; 83735; 84100; 85025; 85027; 86803; 87040; 87340; 93005; 93010; 99285-25; G0277; G0378; J0131

== ENCOUNTER 2024-10-31 11:43 | Emergency (ER) | payer OTHER ==
[2024-10-31 12:08] VITALS: RESP 18; BMI 23.1
[2024-10-31] MEDS ORDERED: HYDROmorphone HCL CARPU-JECT 2 MG/1 ML DISP.SYRIN ONE ×3 (13:03→16:41)
[2024-10-31] MEDS ORDERED: METOCLOPRAMIDE HCL INJECTION 10 MG/2 ML VIAL ONE ×2 (13:03→16:54)
[2024-10-31] MEDS ORDERED: PANTOPRAZOLE SODIUM 40 MG VIAL ONE (13:04)
[2024-10-31] MEDS ORDERED: PANTOPRAZOLE SODIUM 40 MG/100 ML BAG IVPB ONE (13:04)
[2024-10-31] MEDS: METOCLOPRAMIDE HCL INJECTION 10 MG/2 ML VIAL IVPB ONE (13:14)
[2024-10-31] MEDS: PANTOPRAZOLE SODIUM 40 MG VIAL IVPUSH ONE (13:14)
[2024-10-31 13:16] LABS: ABSOLUTE IMMATURE GRANULOCYTES 0.05 x10^3/uL (0.0-0.031); BASOPHILS # 0.02 x10^3/uL (0.01-0.08); EOSINOPHIL % 0.0 % (0.8-7.0); EOSINOPHILS # 0.00 x10^3/uL (0.04-0.54); MCHC 31.5 g/dl (32.3-36.5); MEAN CELL VOLUME 98.7 fl (79.0-92.2); MEAN PLT VOLUME 10.1 fl (9.4-12.4); MONOCYTE # 0.67 x10^3/uL (0.30-0.82); MONOCYTE % 5.1 % (5.3-12.2); RDW 17.5 % (12.2-16.4)
[2024-10-31 13:24] LABS: INR 1.18 (0.83-1.09); PROTHROMBIN TIME (PATIENT) 13.0 SEC (9.7-13.0)
[2024-10-31 13:26] LABS: BG HCT 37.0 % (35.4-49); VENOUS BASE EXCESS 10.8 mmol/L (-2-2); VENOUS O2 SATURATION 35.8 % (70-80); VENOUS PCO2 45.6 mmHg (38-52); VENOUS PH 7.505 (7.310-7.410)
[2024-10-31 13:27] LABS: ACTIVATED PTT 27.2 SECONDS (25.2-36.5)
[2024-10-31 13:48] LABS: CO2 37 mmol/L (21-32); GLUCOSE,RANDOM 143 mg/dL (74-106)
[2024-10-31 13:51] LABS: SGOT/AST 17 U/L (15-37); SGPT/ALT 16 U/L (13-61)
[2024-10-31 13:53] LABS: TOT PROT 7.9 g/dl (6.4-8.2)
[2024-10-31 13:54] LABS: ALK PHOS 140 U/L (45-117)
[2024-10-31 14:02] LABS: CREATININE 8.4 mg/dL (0.55-1.3)
[2024-10-31 14:36] LABS: HCV DIAGNOSTIC IN-HOUSE W/RFLX NON-REACTIVE (NONREACTIVE)
[2024-10-31 14:37] LABS: HIV INTERPRETATION NEGATIVE (NEGATIVE)
[2024-10-31] MEDS ORDERED: SODIUM CHLORIDE 250 ML IV PRN (16:09)
[2024-10-31 16:23] LABS: HEPATITIS B SURF AG NON-MATERN NON-REACTIVE (NONREACTIVE)
[2024-10-31] MEDS: METOCLOPRAMIDE HCL INJECTION 10 MG/2 ML VIAL IVPUSH ONE (16:59)
[2024-10-31 17:39] VITALS: BP 108/75; PULSE 85; TEMP 98
== END 2024-10-31 17:09 | disposition short-term general hospital (02) ==
LOC: JER 11:43
PROC: 3E033NZ Introduction of Analgesics, Hypnotics, Sedatives into Peripheral Vein, Percutaneous Approach (ICD-10-PCS; principal; 2024-10-31)
PROC: 3E033GC Introduction of Other Therapeutic Substance into Peripheral Vein, Percutaneous Approach (ICD-10-PCS; 2024-10-31)
PROC: 3E033GC Introduction of Other Therapeutic Substance into Peripheral Vein, Percutaneous Approach (ICD-10-PCS; 2024-10-31)
PROC: 3E033NZ Introduction of Analgesics, Hypnotics, Sedatives into Peripheral Vein, Percutaneous Approach (ICD-10-PCS; 2024-10-31)
PROC: 3E033NZ Introduction of Analgesics, Hypnotics, Sedatives into Peripheral Vein, Percutaneous Approach (ICD-10-PCS; 2024-10-31)
PROC: 3E033GC Introduction of Other Therapeutic Substance into Peripheral Vein, Percutaneous Approach (ICD-10-PCS; 2024-10-31)
DX: E11.22 Type 2 diabetes mellitus with diabetic chronic kidney disease (principal); I12.0 Hypertensive chronic kidney disease with stage 5 chronic kidney disease or end stage renal disease; N18.6 End stage renal disease; E11.43 Type 2 diabetes mellitus with diabetic autonomic (poly)neuropathy; K92.0 Hematemesis; R10.13 Epigastric pain; R10.11 Right upper quadrant pain; Z99.2 Dependence on renal dialysis
CPT/HCPCS: 36415; 71045-TC-FY; 80053; 82010; 82803; 83690; 83735; 84100; 84484; 85025; 85610; 85730; 86803; 86850; 86900; 86901; 87340; 87389; 93005; 93010; 99285-25

== ENCOUNTER 2024-12-18 11:46 | Emergency (ER) | payer OTHER ==
[2024-12-18 11:53] VITALS: TEMP 97.7; BMI 21.9
[2024-12-18] MEDS ORDERED: PANTOPRAZOLE SODIUM 40 MG/100 ML BAG IVPB ONE (12:25)
[2024-12-18] MEDS ORDERED: METOCLOPRAMIDE HCL INJECTION 10 MG/2 ML VIAL ONE (12:25)
[2024-12-18] MEDS ORDERED: HYDROmorphone HCL CARPU-JECT 2 MG/1 ML DISP.SYRIN ONE (12:25)
[2024-12-18 12:30] LABS: ABSOLUTE IMMATURE GRANULOCYTES 0.06 x10^3/uL (0.0-0.031); BASOPHILS # 0.05 x10^3/uL (0.01-0.08); EOSINOPHIL % 0.1 % (0.8-7.0); EOSINOPHILS # 0.02 x10^3/uL (0.04-0.54); MCHC 30.5 g/dl (32.3-36.5); MEAN CELL VOLUME 102.3 fl (79.0-92.2); MEAN PLT VOLUME 10.0 fl (9.4-12.4); MONOCYTE # 1.25 x10^3/uL (0.30-0.82); MONOCYTE % 6.3 % (5.3-12.2); RDW 14.9 % (12.2-16.4)
[2024-12-18] MEDS: PANTOPRAZOLE SODIUM 40 MG VIAL IVPUSH ONE (12:41)
[2024-12-18] MEDS: METOCLOPRAMIDE HCL INJECTION 10 MG/2 ML VIAL IVPUSH ONE (12:41)
[2024-12-18 13:00] LABS: GLUCOSE,RANDOM 108.0 mg/dL (74-106)
[2024-12-18 13:01] LABS: TOT PROT 8.0 g/dl (6.4-8.2)
[2024-12-18 13:02] LABS: CO2 24.0 mmol/L (21-32)
[2024-12-18 13:03] LABS: ALK PHOS 83.0 U/L (40-150)
[2024-12-18 13:04] LABS: N-TERMINAL BNP 7595.3 pg/mL (0-299.9)
[2024-12-18 13:06] LABS: CREATININE 4.41 mg/dL (0.55-1.3); SGOT/AST 36.0 U/L (5-34); SGPT/ALT 8.0 U/L (0-55)
[2024-12-18 15:25] VITALS: BP 130/76; PULSE 83; RESP 16
== END 2024-12-18 20:52 | disposition home or self-care (01) ==
LOC: JER 11:46
PROC: 3E033NZ Introduction of Analgesics, Hypnotics, Sedatives into Peripheral Vein, Percutaneous Approach (ICD-10-PCS; principal; 2024-12-18)
PROC: 3E033NZ Introduction of Analgesics, Hypnotics, Sedatives into Peripheral Vein, Percutaneous Approach (ICD-10-PCS; 2024-12-18)
PROC: 3E033GC Introduction of Other Therapeutic Substance into Peripheral Vein, Percutaneous Approach (ICD-10-PCS; 2024-12-18)
PROC: 3E033GC Introduction of Other Therapeutic Substance into Peripheral Vein, Percutaneous Approach (ICD-10-PCS; 2024-12-18)
DX: R10.13 Epigastric pain (principal); R11.2 Nausea with vomiting, unspecified; R63.8 Other symptoms and signs concerning food and fluid intake; R14.2 Eructation; R07.9 Chest pain, unspecified
CPT/HCPCS: 36415; 71045-TC-FY; 74176-TC; 80053; 83690; 83880; 84484; 85025; 99285-25